=== PATIENT | male | born 1935 | race Caucasian/White ===

== ENCOUNTER 2018-09-03 06:45 | Inpatient (IN) ==
--- OUTSIDE RECORDS SUMMARY | 2018-09-03 06:48 | External Medical Summary | Continuity of Care Document ---
:1935 Author Name Brannon Snyder, Provider Address Unavailable Unavailable , Care Team Providers Name Role Phone Magdiel [email or web address] PCP, UNKNOWN Unavailable Unavailable Problems Active medical history not documented Allergies and Adverse Reactions Allergy history not documented Medications Medications not documented Procedures Procedures not documented Immunizations Immunizations not documented Plan of Treatment Planned Observations Planned Goals not documented Results No Known Results Results not documented
[2018-09-03] MEDS ORDERED: ASPIRIN CHEW 324 MG PO STA (07:02)
[2018-09-03] MEDS ORDERED: dilTIAZem HCl 5 MG/ML 5 ML VIAL IV STA (07:02)
--- NOTE | 2018-09-03 07:27 | XRay Report ---
XR chest 1V portable CLINICAL HISTORY: 83 years-old Male presenting with Chest Pain. TECHNIQUE: Portable upright AP view of the chest was obtained. COMPARISON: 02/07/2012. FINDINGS: Cardiac silhouette moderately enlarged. Minimal right basilar opacity. Left retrocardiac opacity as o n prior exam. Mild hyperinflation may be present. No pleural effusion or pneumothorax. Degenerative c hanges of the thoracic spine. IMPRESSION: 1. Cardiomegaly. 2. Minimal right basilar opacities likely atelectasis or scarring. 3. Left retrocardiac opacity likely indicates presence of a moderate hiatal hernia. Electronically signed by: Marino Torres M.D. 09/03/2018 7:26 AM
[2018-09-03 07:38] LABS: Basophils # (auto) 0.04 K/uL (0-0.2); Basophils % (auto) 0.3 %; Eosinophils # (auto) 0.12 K/uL (0-0.5); Eosinophils % (auto) 0.9 %; Hematocrit (blood only) 47.3 % (42-52); Hemoglobin 15.5 g/dL (14.0-18.0); Immature Granulocytes # (auto) 0.14 K/uL (0.00-0.02); Lymphocytes # (auto) 1.99 K/uL (1.2-3.4); Lymphocytes % (auto) 14.3 %; Mean Corpuscular Hgb Conc 32.8 g/dL (32-36); Mean Corpuscular Volume 88.1 fL (80-100); Mean Platelet Volume 10.3 fL (7.4-10.4); Monocytes # (auto) 1.29 K/uL (0.11-0.59); Monocytes % (auto) 9.3 %; Neutrophils # (auto) 10.36 K/uL (1.4-6.5); Neutrophils % (auto) 74.2 %; Platelet Count 159 K/uL (130-400); RDW Coefficient of Variation 16.5 % (11.5-14.5); RDW Standard Deviation 53.5 fL (36.4-46.3); Red Blood Count 5.37 M/uL (4.7-6.1); White Blood Count 13.94 K/uL (4.8-10.8)
[2018-09-03 07:48] LABS: Partial Thromboplastin Ratio 0.9; Partial Thromboplastin Time 23.3 Seconds (21.0-31.0); Prothrombin Time 10.5 Seconds (9.0-12.0)
[2018-09-03 07:57] LABS: Albumin Level 3.1 gm/dl (3.4-5.0); BUN Creatinine Ratio 21.1 (10-20); Calcium 9.8 mg/dl (8.5-10.1); Creatinine Clr Calc Pharmacy 41.5 ml/min; Est GFR (African American) 50.9; Est GFR (Non-African American) 43.9; Potassium 4.3 mmol/L (3.5-5.1)
[2018-09-03 08:06] LABS: Albumin Globulin Ratio 0.8 (0.9-2); Bilirubin,Total 0.4 mg/dl (0.2-1); Creatine Kinase MB 5.8 ng/ml (0.5-3.6); Globulin 3.7 gm/dl (2.5-4.0); Total Protein 6.8 gm/dl (6.4-8.2); Troponin I 0.065 ng/ml (0-0.045)
--- NOTE | 2018-09-03 08:13 | Emergency Department Note ---
Entered by Andressa Delatorre acting as a scribe for Avery Blanco MD History of Present Illness General Chief complaint: Chest Pain Stated complaint: CHEST PAIN,SHOULDER PAIN Time Seen by Provider: 09/03/18 06:52 Source: patient Mode of arrival: ambulatory Limitations: no limitations History of Present Illness Provider complaint: chest pain Onset (ago): hour(s) 3 Location: chest Pain Consistency: + other (episode) Quality: + other (chest pain) Associated symptoms: + shortness of breath and + other (palpitations) Treatments prior to arrival: none The patient is an 83 year old male who presents to the ER with complaints of an episode of chest pain that began at 0400 this morning. The patient reports to triage that he did have an associated shortness of breath as well. He states that he could feel as if his heart was beating "funny." He explains that he is currently not having chest pain. The patient notes that he has a history of an irregular heartbeat and is on a daily low-dose aspirin. He denies taking that this morning. He also reports that he did have an [place] in 2011 and [address]. Home Medications Home Medications Medication Instructions Recorded Confirmed Type Phosphorous 1 tab PO BID 06/04/18 09/03/18 History albuterol sulfate 1 inh INHALATION QID PRN 06/04/18 09/03/18 History aspirin 81 mg PO QAM 06/04/18 09/03/18 History atorvastatin 80 mg PO QAM 06/04/18 09/03/18 History carvedilol 25 mg PO BID 06/04/18 09/03/18 History fenofibrate nanocrystallized 48 mg PO QPM 06/04/18 09/03/18 History furosemide 40 mg PO QAM 06/04/18 09/03/18 History glipizide 5 mg PO QAM 06/04/18 09/03/18 History isosorbide mononitrate 60 mg PO QPM 06/04/18 09/03/18 History nitroglycerin [Nitrostat] 1 dose SUBLINGUAL UD PRN 06/04/18 09/03/18 History prednisone 5 mg PO BID 06/04/18 09/03/18 History terazosin 2 mg PO BID 06/04/18 09/03/18 History coenzyme Q10 200 mg PO DAILY 09/03/18 09/03/18 History linagliptin [Tradjenta] 5 mg PO DAILY 09/03/18 09/03/18 History pyjwfypgfmpp-deis-qtupq acid 1 tab PO DAILY 09/03/18 09/03/18 History [Centrum] Allergies Allergy/AdvReac Type Severity Reaction Status Date / Time atenolol Allergy Unknown Verified 09/03/18 07:32 candesartan [From Atacand] Allergy Unknown Verified 09/03/18 07:32 Past Med/Surg History Medical History BPH (benign prostatic hyperplasia) (Chronic) 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 RAMÍREZ Osteoarthritis (Chronic) Chronic back pain (Chronic) Scoliosis (Chronic) Poor historian Shortness of breath on exertion Surgical History History of cardiac cath (Chronic) 2011 - [facility] - [place] - 1 STENT PLACED - FOLLOWS W/ DR. MOHR History of heart artery stent (Chronic) History of colonoscopy (Chronic) History of tooth extraction (Chronic) History of cataract surgery (Chronic) RIGHT Family History Mother Coronary heart disease, Onset Age: 63 of [place] CHF (congestive heart failure) Myocardial infarction Father CHF (congestive heart failure) Pneumonia Sister Coronary heart disease History of CABG Rheumatic heart disease Social History Preferred Language: [place] Communication Ability: Effective Beliefs That Will Affect Care: None marital status: / Current Living Situation: Alone Feels Safe at Home: Yes Smoking Status: Never smoker Second Hand Exposure: Yes ( A CHILD) Hx Alcohol Use: No Hx Substance Use: No Review of Systems See HPI for pertinent positives & negatives. and A total of 10 systems reviewed and were otherwise negative Physical Exam Vital Signs Vital Signs - 24 hr 09/03/18 06:47 09/03/18 07:30 Temperature 36.5 C Temperature Source Oral Sepsis Recent Fever Within 48 Hours No Sepsis New/Unexplained Change in Mental Status No Sepsis Action Taken by Nursing No Action Required Pulse Rate 90 Pulse Rate [Left] 123 H Pulse Rhythm [Left] Regular Pulse Strength [Left] Normal Respiratory Rate 20 18 Respiratory Effort / Characteristics Non-Labored Spontaneous Non-Labored Spontaneous Respiratory Depth Normal Normal Respiratory Pattern Regular Regular Blood Pressure 119/71 Blood Pressure [Left Arm] 112/79 Blood Pressure Mean 87 Blood Pressure Mean [Left Arm] 90 Blood Pressure Position Sitting Blood Pressure Position [Left Arm] Lying Pulse Oximetry 96 95 Oxygen Delivery Method Room Air Room Air GENERAL: Awake, alert, well-appearing, in no acute distress HENT: Normocephalic, atraumatic. Oropharynx unremarkable. EYES: Normal conjunctiva. Sclera non-icteric. NECK: Supple. No nuchal rigidity. FROM. No JVD. RESPIRATORY: Clear to auscultation. CARDIAC: Tachycardic and irregular. Extremities warm and well perfused. Pulses equal. ABDOMEN: Soft, non-distended. No tenderness to palpation. No rebound or guarding. No masses. RECTAL: Deferred. MUSCULOSKELETAL: Chest examination reveals no tenderness. The back is symmetri edel on inspection without obvious abnormality. There is no CVA tenderness to palpation. No joint edema. LOWER EXTREMITIES: Calves are equal size bilaterally and non-tender. No edema. No discoloration. NEURO: Normal sensorium. No sensory or motor deficits noted. SKIN: No rash or jaundice noted. Course 0654: Past medical records reviewed. The patient was evaluated in room A10. A complete history and physical examination was performed. 0814: I reviewed the patient's case with Marcia Maldonado PA-C. She, in conjunction with Dr. Mora, will evaluate the patient for further management. 0818: I updated the patient and his family. They are agreeable with the treatment plan. Administered Medications Discontinued Medications Aspirin (Aspirin) 324 mg PO NOW STA Stop: 09/03/18 07:03 Last Admin: 09/03/18 07:42 Dose: 324 mg Documented by: [id number] Diltiazem HCl (Cardizem) 23 mg IV NOW STA Stop: 09/03/18 07:03 Last Admin: 09/03/18 07:42 Dose: 23 mg Documented by: [id number] Cosigned by: [id number] Heparin Sodium/Dextrose (Heparin Sodium/Dextrose) Confirm Administered Dose 25,000 units IV .STK-MED ONE Stop: 09/03/18 09:03 Last Admin: 09/03/18 09:08 Dose: 1,400 units Documented by: [id number] Cosigned by: [id number] Medical Decision Making Differential Diagnosis Differential diagnosis includes: cardiac ischemia, aortic dissection, pulmonary embolism, pneumonia, pneumothorax, musculoskeletal, infections, pericarditis, myocarditis, esophageal rupture, gastrointestinal, as well as others were entertained. Medical Records Attestation: I reviewed the patient's medical records. Home Medications Current Medication List: was personally reviewed by me Laboratory Data Attestation: I reviewed the patient's lab results. Result diagrams: 09/03/18 07:25 09/03/18 07:25 Lab Results 09/03/18 09/03/18 09/03/18 Range/Units 07:25 07:25 07:25 WBC 13.94 H (4.8-10.8) K/uL RBC 5.37 (4.7-6.1) M/uL Hgb 15.5 (14.0-18.0) g/dL Hct 47.3 (42-52) % MCV 88.1 (80-100) fL MCH 28.9 (25-34) pg MCHC 32.8 (32-36) g/dL RDW Std Deviation 53.5 H (36.4-46.3) fL RDW Coeff of Coty 16.5 H (11.5-14.5) % Plt Count 159 (130-400) K/uL MPV 10.3 (7.4-10.4) fL Immature Gran % (Auto) 1.0 % Neut % (Auto) 74.2 % Lymph % (Auto) 14.3 % Owsley % (Auto) 9.3 % Eos % (Auto) 0.9 % Baso % (Auto) 0.3 % Immature Gran # (Auto) 0.14 H (0.00-0.02) K/uL Neut # (Auto) 10.36 H (1.4-6.5) K/uL Lymph # (Auto) 1.99 (1.2-3.4) K/uL Owsley # (Auto) 1.29 H (0.11-0.59) K/uL Eos # (Auto) 0.12 (0-0.5) K/uL Baso # (Auto) 0.04 (0-0.2) K/uL PT 10.5 (9.0-12.0) Seconds INR 1.0 (0.9-1.1) APTT 23.3 (21.0-31.0) Seconds PTT Ratio 0.9 Sodium 144 (136-145) mmol/L Potassium 4.3 (3.5-5.1) mmol/L Chloride 110 H (98-107) mmol/L Carbon Dioxide 26 (21-32) mmol/L Anion Gap 8.0 (3-11) BUN 31 H (7-18) mg/dl Creatinine 1.45 H (0.6-1.4) mg/dl Est Cr Clr Drug Dosing 41.5 ml/min Est GFR ( Amer) 50.9 Est GFR (Non-Af Amer) 43.9 BUN/Creatinine Ratio 21.1 H (10-20) Glucose 86 (70-99) mg/dl Calcium 9.8 (8.5-10.1) mg/dl Magnesium (1.8-2.4) mg/dl Total Bilirubin 0.4 (0.2-1) mg/dl AST 22 (15-37) U/L ALT 33 (12-78) U/L Alkaline Phosphatase 41 L (45-117) U/L Total Creatine Kinase 129 (39-308) U/L CK-MB (CK-2) 5.8 H (0.5-3.6) ng/ml CK/CKMB % Calc 4.5 H (0-3.0) Troponin I 0.065 H* (0-0.045) ng/ml NT-Pro-B Natriuret Pep 538 (0-1800) pg/ml Total Protein 6.8 (6.4-8.2) gm/dl Albumin 3.1 L (3.4-5.0) gm/dl Globulin 3.7 (2.5-4.0) gm/dl Albumin/Globulin Ratio 0.8 L (0.9-2) Lipase 224 (73-393) U/L TSH (0.300-4.500) uIu/ml 09/03/18 09/03/18 Range/Units 07:25 07:25 WBC (4.8-10.8) K/uL RBC (4.7-6.1) M/uL Hgb (14.0-18.0) g/dL Hct (42-52) % MCV (80-100) fL MCH (25-34) pg MCHC (32-36) g/dL RDW Std Deviation (36.4-46.3) fL RDW Coeff of Coty (11.5-14.5) % Plt Count (130-400) K/uL MPV (7.4-10.4) fL Immature Gran % (Auto) % Neut % (Auto) % Lymph % (Auto) % Owsley % (Auto) % Eos % (Auto) % Baso % (Auto) % Immature Gran # (Auto) (0.00-0.02) K/uL Neut # (Auto) (1.4-6.5) K/uL Lymph # (Auto) (1.2-3.4) K/uL Owsley # (Auto) (0.11-0.59) K/uL Eos # (Auto) (0-0.5) K/uL Baso # (Auto) (0-0.2) K/uL PT (9.0-12.0) Seconds INR (0.9-1.1) APTT (21.0-31.0) Seconds PTT Ratio Sodium (136-145) mmol/L Potassium (3.5-5.1) mmol/L Chloride (98-107) mmol/L Carbon Dioxide (21-32) mmol/L Anion Gap (3-11) BUN (7-18) mg/dl Creatinine (0.6-1.4) mg/dl Est Cr Clr Drug Dosing ml/min Est GFR ( Amer) Est GFR (Non-Af Amer) BUN/Creatinine Ratio (10-20) Glucose (70-99) mg/dl Calcium (8.5-10.1) mg/dl Magnesium 2.3 (1.8-2.4) mg/dl Total Bilirubin (0.2-1) mg/dl AST (15-37) U/L ALT (12-78) U/L Alkaline Phosphatase (45-117) U/L Total Creatine Kinase (39-308) U/L CK-MB (CK-2) (0.5-3.6) ng/ml CK/CKMB % Calc (0-3.0) Troponin I (0-0.045) ng/ml NT-Pro-B Natriuret Pep (0-1800) pg/ml Total Protein (6.4-8.2) gm/dl Albumin (3.4-5.0) gm/dl Globulin (2.5-4.0) gm/dl Albumin/Globulin Ratio (0.9-2) Lipase (73-393) U/L TSH 2.950 (0.300-4.500) uIu/ml Imaging Data Radiologist's Impression: Radiology results as stated below per my review and the radiologist's interpretation: XR chest 1V portable CLINICAL HISTORY: 83 years-old Male presenting with Chest Pain. TECHNIQUE: Portable upright AP view of the chest was obtained. COMPARISON: 02/07/2012. FINDINGS: Cardiac silhouette moderately enlarged. Minimal right basilar opacity. Left retrocardiac opacity as on prior exam. Mild hyperinflation may be present. No pleural effusion or pneumothorax. Degenerative changes of the thoracic spine. IMPRESSION: 1. Cardiomegaly. 2. Minimal right basilar opacities likely atelectasis or scarring. 3. Left retrocardiac opacity likely indicates presence of a moderate hiatal hernia. Electronically signed by: Marino Torres M.D. 09/03/2018 7:26 AM ECG Data Attestation: I personally reviewed and interpreted this ECG as follows: Indication: chest pain Rate (beats per minute): 129 Rhythm: atrial fibrillation Findings: + other (RVR), + ST depression (Lateral) and + T-wave inversion (Lateral) Comparison ECG Date: from (07-FEB-2012) Change: the following changes noted (findings new) Additional Comments: REPEAT EKG: atrial fibrillation, rate of 87 bpm, no ST depressions, T-wave inversion in lateral leads. Blood Pressure Blood Pressure Findings: Normal blood pressure Blood Pressure Disposition: did not require urgent referral MDM Narrative This is an 83-year-old male who presents to the emergency department complaining of chest pain that started this morning. In addition the patient is complaining of palpitations. Upon arrival to the emergency department patient was found to be in A. fib with RVR. He was given 1 dose of Cardizem for this. The patient has an elevation in his troponin and I am concerned he may have had an NSTEMI. Because of this he was started on heparin drip. I did discuss the case with the hospitalist service who agreed to admit the patient. Patient was given 324 mg of aspirin here in the emergency department. Impression & Plan Atrial fibrillation with RVR, Non-ST elevation (NSTEMI) myocardial infarction Critical Care Time I have personally spent 30 minutes of critical care time in the direct management of this patient. This includes bedside care, interpretation of diag nostic studies, and testing, discussion with consultants, patient, and family members, and other required patient management activities. These 30 minutes are in excess of all separately billable procedures. Critical Care Time: Yes Total Critical Care Time: 30 Discharge Plan Visit Data *Final* Discharge Date/Time: 09/03/18 11:46 Chief Complaint: Chest Pain Stated Complaint: CHEST PAIN,SHOULDER PAIN ED Provider: Avery Blanco Discharge Problem: Atrial fibrillation with RVR, Non-ST elevation (NSTEMI) myocardial infarction Patient Disposition: Admitted As Inpatient Discharge Instructions Interventions: ED Discharge Assessment Last Done: 09/03/18 11:46 The scribe's documentation has been prepared under my direction and personally reviewed by me in its entirety. I confirm that the note above accurately reflects all work, treatment, procedures, and medical decision making performed by me.
[2018-09-03] MEDS ORDERED: Heparin IV Standard *NO* Bolus IV ONE (08:25)
[2018-09-03] MEDS ORDERED: HEPARIN 25000 UNIT/500 ML D5W IV ONE (09:02)
[2018-09-03] MEDS ORDERED: NiCARDipine HCL INJ 2.5 MG/ML 10 ML AMP ONE (09:04)
[2018-09-03] MEDS ORDERED: HEPARIN (PORCINE) 1000 UNIT/ML 10 ML (CATH LAB USE ONLY) ONE (09:04)
[2018-09-03] MEDS ORDERED: MIDAZOLAM HCL 1 MG/ML 2ML VIAL ONE (09:05)
[2018-09-03] MEDS ORDERED: fentaNYL citrate 100 MCG/2 ML VIAL ONE (09:05)
[2018-09-03] MEDS ORDERED: NITROGLYCERIN/D5W 100MCG/ML 20ML SYR ONE (09:05)
--- NOTE | 2018-09-03 09:17 | History & Physical Report ---
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 In ED patient was found to be in A. fib with RVR, rates [address] depressions. His troponin was elevated 0.065, CK 5.8, CK-MB 4.1. He had slight elevation in WBC 13.94, BUN 31, creatinine 1.45, glucose 86. Chest x-ray was without acute cardia pulmonary abn. He denies history of A. fib in the past or being on anticoagulation. Given 1 dose of IV diltiazem which improved rates to 90s. He was initiated on IV heparin. admit to PCU consult cardiology continue IV heparin obtain resting echocardiogram trend troponin q6h follow ECG Obtain mag and tsh (both WNL) fasting lipid panel, a1c, cbc, bmp in am. (3) Hypertension: Blood pressure on lower side Hold Lasix and terazosin for now continue coreg, imdur (4) Diabetes mellitus, type 2: A1c 7.8 on 07/26/2018 Hold glipizide and Tradjenta Insulin sliding scale per protocol If BSG consistently elevated will add Lantus (5) Chronic renal disease, stage III: Baseline creatinine 1.2 Mild renal insufficiency with BUN/creatinine 31 and 1.45 Hold Lasix for now Follow BMP (6) 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 Alcocer (7) DVT prophylaxis: SCDS/TEDS, IV heparin gtt Disposition: likely discharge to home when able Follow up: PCP Dr. Marin upon discharge Patient was seen and examined in collaboration with Dr. Mora, please see addendum Starting 09/04/2018 patient will be under the care of Dr. 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 Patient states he was awoken secondary to substernal chest pain. Pain was nonradiating, described as an ache, associated with palpitations, nausea, rated 8/10, improved but not relieved with nitro x4, nothing made worse, also tried Tums. He then presented to [facility] ED secondary to pain with his son at bedside. Currently pain is absent. He denies any recent illness, fever, chills, sweats, lightheadedness, dizziness, syncope, shortness of breath at rest, orthopnea, PND, edema, emesis, abdominal pain, diarrhea, change in bowel or urinary habits. He did not take any of his medications today but otherwise has been compliant. History of an NSTEMI in past in which symptoms were similar. He also complains of HENNING although this has been chronic. He has trialed Spiriva without improvement and states he stopped taking it because it did not help and it was too expensive. He does not wear oxygen. He denies cough. He also complains of right shoulder pain but this is chronic as well. In ED patient was found to be in A. fib with RVR, rates [address] depressions. His troponin was elevated 0.065, CK 5.8, CK-MB 4.1. He had slight elevation in WBC 13.94, BUN 31, creatinine 1.45, glucose 86. Chest x-ray was without acute cardia pulmonary abn. He denies history of A. fib in the past or being on anticoagulation. Given 1 dose of IV diltiazem which improved rates to 90s. He was initiated on IV heparin. Patient last seen and evaluated by cardiology 03/15/[address] Suarez. At that time he had been stable from a cardiac perspective and given MARY placed in 2011 his Plavix was discontinued. He also notes that he has had fluctuating doses in his terazosin, which he takes for BPH, secondary to low blood pressure. Allergies Allergy/AdvReac Type Severity Reaction Status Date / Time atenolol Allergy Unknown Verified 09/03/18 07:32 candesartan [From Atacand] Allergy Unknown Verified 09/03/18 07:32 Home Medications Home Medications Medication Instructions Recorded Confirmed Type Phosphorous 1 tab PO BID 06/04/18 09/03/18 History albuterol sulfate 1 inh INHALATION QID PRN 06/04/18 09/03/18 History aspirin 81 mg PO QAM 06/04/18 09/03/18 History atorvastatin 80 mg PO QAM 06/04/18 09/03/18 History carvedilol 25 mg PO BID 06/04/18 09/03/18 History fenofibrate nanocrystallized 48 mg PO QPM 06/04/18 09/03/18 History furosemide 40 mg PO QAM 06/04/18 09/03/18 History glipizide 5 mg PO QAM 06/04/18 09/03/18 History isosorbide mononitrate 60 mg PO QPM 06/04/18 09/03/18 History nitroglycerin [Nitrostat] 1 dose SUBLINGUAL UD PRN 06/04/18 09/03/18 History prednisone 5 mg PO BID 06/04/18 09/03/18 History terazosin 2 mg PO BID 06/04/18 09/03/18 History coenzyme Q10 200 mg PO DAILY 09/03/18 09/03/18 History linagliptin [Tradjenta] 5 mg PO DAILY 09/03/18 09/03/18 History gasvxwdnmjtz-bdyk-rsfkg acid 1 tab PO DAILY 09/03/18 09/03/18 History [Centrum] Past Med/Surg History Medical History BPH (benign prostatic hyperplasia) (Chronic) 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 RAMÍREZ Osteoarthritis (Chronic) Chronic back pain (Chronic) Scoliosis (Chronic) Poor historian Shortness of breath on exertion Surgical History History of cardiac cath (Chronic) 2011 - [facility] - [place] - 1 STENT PLACED - FOLLOWS W/ DR. MOHR History of heart artery stent (Chronic) History of colonoscopy (Chronic) History of tooth extraction (Chronic) History of cataract surgery (Chronic) RIGHT Family History Mother Coronary heart disease, Onset Age: 63 of [place] CHF (congestive heart failure) Myocardial infarction Father CHF (congestive heart failure) Pneumonia Sister Coronary heart disease History of CABG Rheumatic heart disease Social History Preferred Language: South Korean Communication Ability: Effective Beliefs That Will Affect Care: None marital status: / Current Living Situation: Alone Feels Safe at Home: Yes Smoking Status: Never smoker Second Hand Exposure: Yes ( A CHILD) Hx Alcohol Use: No Hx Substance Use: No Review of Systems Review of Systems: As noted per HPI, 10 systems reviewed and negative unless noted above. Physical Exam Physical Exam: Gen: WD/WN, Elderly, M, NAD, sitting up in bed, pleasant, conversing easily Head: Normocephalic, Atraumatic Eyes: Sclera normal, no conjunctival injection, PERRLA, EOMI ENT: Gross hearing intact, normal pharynx, mucous membranes moist Neck: supple, no adenopathy, No JVD, no bruit, Resp: Clear to auscultation b/l, no wheeze, rales, rhonchi. 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 Extremities: No edema bilaterally Skin: warm, dry, no rash, negative turgor, cap refill < 2sec Neuro: Alert and oriented x 3, speech normal, good mood/affect, cran nerve 2-12 intact grossly : deferred Results & Data Vital Signs (Past 12 Hours) Vital Signs Temp Pulse Pulse Resp BP BP Pulse Ox 09/03/18 09:12 84 18 102/77 96 09/03/18 07:30 123 H 18 112/79 95 09/03/18 06:47 36.5 C 90 20 119/71 96 Laboratory Results Short CBC 09/03/18 Range/Units 07:25 WBC 13.94 H (4.8-10.8) K/uL Hgb 15.5 (14.0-18.0) g/dL Hct 47.3 (42-52) % Plt Count 159 (130-400) K/uL BMP 09/03/18 07:25 Sodium 144 Potassium 4.3 Chloride 110 H Carbon Dioxide 26 BUN 31 H Creatinine 1.45 H Glucose 86 Calcium 9.8 Cardiac Enzymes 09/03/18 Range/Units 07:25 Total Creatine Kinase 129 (39-308) U/L CK-MB (CK-2) 5.8 H (0.5-3.6) ng/ml Troponin I 0.065 H* (0-0.045) ng/ml Liver Function 09/03/18 Range/Units 07:25 Total Bilirubin 0.4 (0.2-1) mg/dl AST 22 (15-37) U/L ALT 33 (12-78) U/L Alkaline Phosphatase 41 L (45-117) U/L Albumin 3.1 L (3.4-5.0) gm/dl Diagnostic Findings CXR: IMPRESSION: 1. Cardiomegaly. 2. Minimal right basilar opacities likely atelectasis or scarring. 3. Left retrocardiac opacity likely indicates presence of a moderate hiatal hernia. Medications Administered Discontinued Medications Aspirin (Aspirin) 324 mg PO NOW STA Stop: 09/03/18 07:03 Last Admin: 09/03/18 07:42 Dose: 324 mg Documented by: [id number] Diltiazem HCl (Cardizem) 23 mg IV NOW STA Stop: 09/03/18 07:03 Last Admin: 09/03/18 07:42 Dose: 23 mg Documented by: [id number] Cosigned by: [id number] Heparin Sodium/Dextrose (Heparin Sodium/Dextrose) Confirm Administered Dose 25,000 units IV .STK-MED ONE Stop: 09/03/18 09:03 Last Admin: 09/03/18 09:08 Dose: 1,400 units Documented by: [id number] Cosigned by: [id number] ECG Indication: chest pain Rate (beats per minute): 84 Rhythm: atrial fibrillation Findings: + T-wave inversion (I) Code Status & VTE Plan Code Status Full Code VTE Prophylaxis Plan VTE Prophylaxis will be ordered: Yes Supervising Physician Co-Signing Physician Notes I saw this patient with the physician podiatrist assistant abd the PA student, I participated in the history, physical, review of systems, and physical exam. I reviewed the medications with the patient and the physician podiatrist assistant and the PA student and helped reconcile the medications. I helped take a detailed family and social history as well. I formulated the assessment and plan personally with the physician podiatrist assistant and went over it with the patient. ROS-No Headache, No Visual Changes, No Nausea, No Vomiting, No Fever, No Chills, No Neck Pain or Stiffness, +8/10 Chest Pain, + Palpitations, +SOB, +HENNING, No Cough, No Sputum, No Wheezing, No Abdominal Pain, No Diarrhea, No Hematemesis, No Hemoptysis, No Unexpected Weight Loss, No Flank pain, No Melena, No Hematochezia, No Frequency, No Urgency, No Burning, No Hematuria, No Rashes, No Diaphoresis. Appetite is Normal,Diaphoresis Physical Exam Gen-AAO x 3, NAD, Afebrile, obese Head-NCAT, EOMI, PERRLA, Anicteric Sclera, No Posterior Pharyngeal Erythema Neck-Supple, No JVD, No Thyromegaly, No Masses, No LAD, No Bruits Lungs-Clear to Auscultation Bilaterally, No Rales, No Rhonchi, No Wheezing, No Crepitus Chest-Irreg/IrregNo S4, +S1, +S2, No S3, No Murmurs, No Rubs, No Gallops Abdomen-Soft, Bowel Sounds Present, Non Tender, Non Distended, No Hepatomegaly, No Splenomegaly, No Palpable Masses, No Rebound, No Rigidity, No Guarding Musculoskeletal-Full Range of Motion Bilaterally, No CVAT Extremities-No Cyanosis, No Clubbing, No Edema Nuero-Cranial Nerves II-XII grossly intact, Motor WNL, DTRs WNL, Strength WNL, Non Focal Psych-Normal Mood
[2018-09-03] MEDS ORDERED: Heparin IV Standard *NO* Bolus IV SCH (12:16)
[2018-09-03] MEDS ORDERED: GLUCOSE 40% GEL 15 GM TUBE PO PRN (12:16)
[2018-09-03] MEDS ORDERED: DEXTROSE 50% 50 ML SYRINGE IV PRN (12:16)
[2018-09-03] MEDS ORDERED: ACETAMINOPHEN 325 MG TAB PO PRN (12:16)
[2018-09-03] MEDS ORDERED: CARBOHYDRATES FOR HYPOGLYCEMIA PO PRN (12:16)
[2018-09-03] MEDS ORDERED: GLUCAGON FOR INJ 1 MG VIAL SQ PRN (12:16)
[2018-09-03] MEDS ORDERED: POLYETHYLENE (MIRALAX) 17 GM PACK PO PRN (12:16)
[2018-09-03] MEDS ORDERED: GLUCOSE 10 TABS/TUBE PO PRN (12:16)
[2018-09-03] MEDS ORDERED: ONDANSETRON INJ 2 MG/ML 2 ML VIAL IV PRN (12:16)
[2018-09-03] MEDS ORDERED: NITROGLYCERIN SL 0.4 MG/TAB TAB SL PRN (12:16)
[2018-09-03] MEDS ORDERED: CO Q10 PO SCH (12:16)
--- NOTE | 2018-09-03 13:50 | Cardiology Consultation ---
Date of Consultation September 03, 2018 Assessment & Plan (1) Atrial fibrillation with RVR: The patient converted spontaneously to normal sinus rhythm. He will need to be anticoagulated after discharge. I would continue heparin through the night and then consider Eliquis to be started as an outpatient. (2) Seronegative arthritis: (3) MGUS (monoclonal gammopathy of unknown significance): (4) Troponin level elevated: This is a type II elevation due to the atrial fibrillation and stress. (5) Diabetes mellitus, type 2: (6) History of heart artery stent: Stable coronary artery disease with previous history of a stent in the LAD 2011. History of Present Illness Attending Physician: Giancarlo Mora DO History of Present Illness This is an 83-year-old male patient who has a history of a drug-eluting stent placed in 2011 in the LAD. He has a history of diastolic dysfunction and hypertension. Also seronegative arthritis and MGUS. 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 When he presented to the emergency department he was found to be in atrial fibrillation with RVR. Patient was started on heparin. He spontaneously converted earlier this morning to normal sinus rhythm. His troponins are elevated at a level suggesting a type II elevation. He has no complaints at present. PAST MEDICAL HISTORY: 1. Coronary artery disease status post non ST-segment elevation [place] in 2011 with a drug-eluting stent placement to the LAD. 2. COPD. 3. Hypertension. 4. Grade 3 diastolic dysfunction. 5. Dyslipidemia. 6. GERD. Allergies Allergy/AdvReac Type Severity Reaction Status Date / Time atenolol Allergy Unknown Verified 09/03/18 07:32 candesartan [From Atacand] Allergy Unknown Verified 09/03/18 07:32 Home Medications Home Medications Medication Instructions Recorded Confirmed Type Phosphorous 1 tab PO BID 06/04/18 09/03/18 History albuterol sulfate 1 inh INHALATION QID PRN 06/04/18 09/03/18 History aspirin 81 mg PO QAM 06/04/18 09/03/18 History atorvastatin 80 mg PO QAM 06/04/18 09/03/18 History carvedilol 25 mg PO BID 06/04/18 09/03/18 History fenofibrate nanocrystallized 48 mg PO QPM 06/04/18 09/03/18 History furosemide 40 mg PO QAM 06/04/18 09/03/18 History glipizide 5 mg PO QAM 06/04/18 09/03/18 History isosorbide mononitrate 60 mg PO QPM 06/04/18 09/03/18 History nitroglycerin [Nitrostat] 1 dose SUBLINGUAL UD PRN 06/04/18 09/03/18 History prednisone 5 mg PO BID 06/04/18 09/03/18 History terazosin 2 mg PO BID 06/04/18 09/03/18 History coenzyme Q10 200 mg PO DAILY 09/03/18 09/03/18 History linagliptin [Tradjenta] 5 mg PO DAILY 09/03/18 09/03/18 History cphlqkiemnqy-eadf-buyir acid 1 tab PO DAILY 09/03/18 09/03/18 History [Centrum] Patient History Medical History BPH (benign prostatic hyperplasia) (Chronic) 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 RAMÍREZ Osteoarthritis (Chronic) Chronic back pain (Chronic) Scoliosis (Chronic) Poor historian Shortness of breath on exertion Surgical History History of cardiac cath (Chronic) 2011 - [facility] - [place] - 1 STENT PLACED - FOLLOWS W/ DR. 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 Beliefs That Will Affect Care: None marital status: / Current Living Situation: Significant Other Other Information That Helps Us Care for You: No Feels Safe at Home: Yes Smoking Status: Never smoker Do You Dip or Chew Tobacco: No Second Hand Exposure: Yes ( A CHILD) Hx Alcohol Use: No Hx Substance Use: No Review of Systems Review of Systems: All systems reviewed & are unremarkable except as noted in HPI & below No additional Physical Exam Physical Exam: General: no acute distress and stated age Head: normocephalic, no masses, lesions, tenderness or abnormalities Eyes: conjunctiva are pink and non-injected, sclera clear Neck: supple, no adenopathy, no bruits, normal jugular venous pulse, no hepatojugular reflux Chest: normal shape and normal respiratory effort Lungs: clear to auscultation and percussion Cardiac Exam: - regular rate & rhythm, no murmurs gallops or rubs - normal S1, normal S2 Pulses: 2(+) throughout Abdomen: abdomen soft, non-tender, no abnormal masses and no hepatosplenomegaly Musculoskeletal: no gait disturbance, no joint inflammation, no deforming arthritis Extremities: no edema and no cyanosis Neuro: grossly normal exam Results & Data Vital Signs (Past 12 Hours) Vital Signs Temp Pulse Pulse Resp BP BP Pulse Ox 09/03/18 11:00 102 H 18 104/68 98 09/03/18 09:12 84 18 102/77 96 09/03/18 07:30 123 H 18 112/79 95 09/03/18 06:47 36.5 C 90 20 119/71 96 Laboratory Results Laboratory Results - last 24 hr 09/03/18 09/03/18 09/03/18 07:25 07:25 07:25 WBC 13.94 H RBC 5.37 Hgb 15.5 Hct 47.3 MCV 88.1 MCH 28.9 MCHC 32.8 RDW Std Deviation 53.5 H RDW Coeff of Coty 16.5 H Plt Count 159 MPV 10.3 Immature Gran % (Auto) 1.0 Neut % (Auto) 74.2 Lymph % (Auto) 14.3 Dundy % (Auto) 9.3 Eos % (Auto) 0.9 Baso % (Auto) 0.3 Immature Gran # (Auto) 0.14 H Neut # (Auto) 10.36 H Lymph # (Auto) 1.99 Dundy # (Auto) 1.29 H Eos # (Auto) 0.12 Baso # (Auto) 0.04 PT 10.5 INR 1.0 APTT 23.3 PTT Ratio 0.9 Sodium 144 Potassium 4.3 Chloride 110 H Carbon Dioxide 26 Anion Gap 8.0 BUN 31 H Creatinine 1.45 H Est Cr Clr Drug Dosing 41.5 Est GFR ( Amer) 50.9 Est GFR (Non-Af Amer) 43.9 BUN/Creatinine Ratio 21.1 H Glucose 86 POC Glucose Calcium 9.8 Magnesium Total Bilirubin 0.4 AST 22 ALT 33 Alkaline Phosphatase 41 L Total Creatine Kinase 129 CK-MB (CK-2) 5.8 H CK/CKMB % Calc 4.5 H Troponin I 0.065 H* NT-Pro-B Natriuret Pep 538 Total Protein 6.8 Albumin 3.1 L Globulin 3.7 Albumin/Globulin Ratio 0.8 L Lipase 224 TSH 09/03/18 09/03/18 09/03/18 07:25 07:25 10:40 WBC RBC Hgb Hct MCV MCH MCHC RDW Std Deviation RDW Coeff of Coty Plt Count MPV Immature Gran % (Auto) Neut % (Auto) Lymph % (Auto) Dundy % (Auto) Eos % (Auto) Baso % (Auto) Immature Gran # (Auto) Neut # (Auto) Lymph # (Auto) Dundy # (Auto) Eos # (Auto) Baso # (Auto) PT INR APTT PTT Ratio Sodium Potassium Chloride Carbon Dioxide Anion Gap BUN Creatinine Est Cr Clr Drug Dosing Est GFR ( Amer) Est GFR (Non-Af Amer) BUN/Creatinine Ratio Glucose POC Glucose Calcium Magnesium 2.3 Total Bilirubin AST ALT Alkaline Phosphatase Total Creatine Kinase CK-MB (CK-2) CK/CKMB % Calc Troponin I 0.136 H* NT-Pro-B Natriuret Pep Total Protein Albumin Globulin Albumin/Globulin Ratio Lipase TSH 2.950 09/03/18 09/03/18 12:55 12:58 WBC RBC Hgb Hct MCV MCH MCHC RDW Std Deviation RDW Coeff of Coty Plt Count MPV Immature Gran % (Auto) Neut % (Auto) Lymph % (Auto) Dundy % (Auto) Eos % (Auto) Baso % (Auto) Immature Gran # (Auto) Neut # (Auto) Lymph # (Auto) Dundy # (Auto) Eos # (Auto) Baso # (Auto) PT INR APTT PTT Ratio Sodium Potassium Chloride Carbon Dioxide Anion Gap BUN Creatinine Est Cr Clr Drug Dosing Est GFR ( Amer) Est GFR (Non-Af Amer) BUN/Creatinine Ratio Glucose POC Glucose 89 Calcium Magnesium Total Bilirubin AST ALT Alkaline Phosphatase Total Creatine Kinase CK-MB (CK-2) CK/CKMB % Calc Troponin I 0.142 H* NT-Pro-B Natriuret Pep Total Protein Albumin Globulin Albumin/Globulin Ratio Lipase TSH Medications Administered Current Inpatient Medications Acetaminophen (Tylenol) 650 mg PO Q4H PRN PRN Reason: Pain or Fever Stop: 10/03/18 12:15 Aspirin ([facility]ab) [facility] Stop: 10/03/18 13:59 Last Admin: 09/03/18 14:30 Dose: 81 mg Documented by: Atorvastatin Calcium (Lipitor) 80 mg PO [facility] Stop: 10/03/18 13:59 Last Admin: 09/03/18 14:29 Dose: 80 mg Documented by: Carvedilol (Coreg) 25 mg PO BID [facility] Stop: 10/03/18 13:59 Last Admin: 09/03/18 14:31 Dose: Not Given Documented by: Dextrose (Dextrose 50%) 25 - 50 ml IV UD PRN; Protocol PRN Reason: Hypoglycemia Protocol Stop: 10/03/18 12:15 Fenofibrate (Fenofibrate) 48 mg PO QPM [facility] Stop: 10/03/18 20:59 Glucagon (Glucagen) 1 mg SQ UD PRN; Protocol PRN Reason: Hypoglycemia Protocol Stop: 10/03/18 12:15 Glucose (Glucose 40%) 15 - 30 gm PO UD PRN; Protocol PRN Reason: Hypoglycemia Protocol Stop: 10/03/18 12:15 Glucose (Dex4 Glucose) 4 - 8 tabs PO UD PRN; Protocol PRN Reason: Hypoglycemia Protocol Stop: 10/03/18 12:15 Heparin Sodium/Dextrose (Heparin Sodium/Dextrose) 25,000 units in 500 mls @ 28 mls/hr IV .[id number] [facility]; Protocol Stop: 10/03/18 12:59 Last Admin: 09/03/18 14:36 Dose: 1,400 units/hr, 28 mls/hr Documented by: Insulin Aspart (Novolog Flexpen) 0 units SC ACHS [facility] Stop: 10/03/18 12:59 Last Admin: 09/03/18 14:34 Dose: 1 units Documented by: Isosorbide Mononitrate (Imdur Extended Rel) 60 mg PO QPM [facility] Stop: 10/03/18 20:59 Miscellaneous (Carbohydrates For Hypoglycemia) 15 - 30 gm PO UD PRN PRN Reason: Hypoglycemia Treatment Stop: 10/03/18 12:15 Multivitamins/Minerals (Multivitamin W/ Minerals Tab) 1 tab PO DAILY [facility] Stop: 10/04/18 08:59 Nitroglycerin (Nitrostat) 0.4 mg SL UD PRN PRN Reason: Chest Pain Stop: 10/03/18 12:15 Ondansetron HCl (Zofran) 4 mg IV Q6H PRN PRN Reason: Nausea Stop: 10/03/18 12:15 Polyethylene Glycol (Miralax Powder Packet) 17 gm PO DAILY PRN PRN Reason: Constipation Stop: 10/03/18 12:15 Potassium Phosphate (Phospha 250 Neutral [id number] Mg) 1 tab PO BID [facility] Stop: 10/03/18 13:59 Last Admin: 09/03/18 14:29 Dose: 1 tab Documented by: Prednisone (Prednisone) 5 mg PO BID [facility] Stop: 10/03/18 13:59 Last Admin: 09/03/18 14:29 Dose: 5 mg Documented by:
[2018-09-03] MEDS: predniSONE 5 MG TAB PO SCH ×2 (14:29→20:55)
[2018-09-03] MEDS: ATORVASTATIN 40 MG TAB PO SCH (14:29)
[2018-09-03] MEDS: POT PHOSPHATE MONOBASIC W/ SOD TAB PO SCH ×2 (14:29→20:55)
[2018-09-03] MEDS: ASPIRIN 81 MG ECTAB PO SCH (14:30)
[2018-09-03] MEDS: CARVEDILOL 25 MG TAB PO SCH ×2 (14:31→20:54)
[2018-09-03] MEDS: INSULIN ASPART 100 UNITS/ML 3 ML PEN SC SCH ×3 (14:34→20:53)
[2018-09-03] MEDS: Heparin Adult STANDARD Wt-Based Dextrose 5% 25,000 units/500 mL IV SCH (14:36)
[2018-09-03 16:03] LABS: Partial Thromboplastin Ratio 2.4
[2018-09-03] MEDS ORDERED: FENOFIBRATE NANOCRYSTALLIZED 48 MG TABLET PO SCH (21:00)
[2018-09-03] MEDS ORDERED: ISOSORBIDE MONO EXTENDED REL 60 MG TABCR PO SCH (21:00)
[2018-09-03 22:02] LABS: Partial Thromboplastin Ratio 3.9
[2018-09-03 22:18] LABS: Partial Thromboplastin Time 104.9 Seconds (21.0-31.0)
[2018-09-04] MEDS ORDERED: HEPARIN 25000 UNIT/500 ML D5W IV ONE (03:50)
[2018-09-04] MEDS: Heparin Adult STANDARD Wt-Based Dextrose 5% 25,000 units/500 mL IV SCH (03:52)
[2018-09-04 04:39] LABS: Hematocrit (blood only) 40.7 % (42-52); Hemoglobin 13.4 g/dL (14.0-18.0); Mean Corpuscular Hgb Conc 32.9 g/dL (32-36); Mean Corpuscular Volume 87.9 fL (80-100); Mean Platelet Volume 10.7 fL (7.4-10.4); Platelet Count 139 K/uL (130-400); RDW Coefficient of Variation 16.7 % (11.5-14.5); RDW Standard Deviation 52.9 fL (36.4-46.3); Red Blood Count 4.63 M/uL (4.7-6.1)
[2018-09-04 04:53] LABS: BUN Creatinine Ratio 20.2 (10-20); Calcium 8.2 mg/dl (8.5-10.1); Creatinine Clr Calc Pharmacy 45.4 ml/min; Est GFR (Non-African American) 49.2; Potassium 4.3 mmol/L (3.5-5.1)
[2018-09-04 04:56] LABS: Partial Thromboplastin Ratio 3.7
[2018-09-04 05:16] LABS: Partial Thromboplastin Time 100.8 Seconds (21.0-31.0)
[2018-09-04 06:29] LABS: Estimated Average Glucose 148 mg/dl; Hemoglobin A1C 6.8 % (4.5-5.6)
[2018-09-04] MEDS: predniSONE 5 MG TAB PO SCH (08:40)
[2018-09-04] MEDS: ATORVASTATIN 40 MG TAB PO SCH (08:41)
[2018-09-04] MEDS: POT PHOSPHATE MONOBASIC W/ SOD TAB PO SCH (08:41)
[2018-09-04] MEDS: ASPIRIN 81 MG ECTAB PO SCH (08:41)
[2018-09-04] MEDS: CARVEDILOL 25 MG TAB PO SCH (08:41)
[2018-09-04] MEDS: INSULIN ASPART 100 UNITS/ML 3 ML PEN SC SCH ×3 (08:41→17:12)
[2018-09-04] MEDS ORDERED: NON-FORMULARY MEDICATION (Coenzyme Q10 200 MG) PO SCH (09:00)
[2018-09-04] MEDS ORDERED: CEROVITE ADV FORMULA TAB PO SCH (09:00)
[2018-09-04] MEDS ORDERED: APIXABAN 2.5 MG TAB PO ONE (09:00)
--- NOTE | 2018-09-04 10:30 | Cardiology Progress Note ---
Date of Service September 04, 2018 Assessment & Plan (1) Atrial fibrillation with RVR: Presentation with left sided chest discomfort New onset atrial fibrillation with a rapid ventricular response Status post spontaneous conversion to sinus at 12:20 PM on 09/03/2018, without significant clinical sequela. [id number] Score is 5 points (age greater than 75, HTN, PAD (abnormal SUSIE in January 2018), DM) Continue carvedilol as prescribed Initiate Eliquis at 5 mg twice a day. If/when creatinine is > 1.5 mg/dL then reduce dose to 2.5 mg twice daily. (2) Non-ST elevation (NSTEMI) myocardial infarction: Suspect type II elevation due to the atrial fibrillation in the setting of known CAD (see below) (3) Abnormal EKG: ? Ischemic versus LVH Asymptomatic since spontaneous conversion back to sinus Refer for Lexiscan nuclear stress testing, probably as an outpatient (4) Hiatal hernia: Given initiation of anticoagulation, ASA, and chronic prednisone therapy recommend initiation of PPI therapy. (5) Hypertension: Controlled. Follow (6) Hyperlipidemia: Continue high intensity statin therapy Supervising Physician Co-Signing Physician Notes I have reviewed the chart and seen the patient and examined him. I discussed the case with the physician healthcare administrative assistant. I agree with starting him on Eliquis at a reduced dose due to his age and elevated creatinine. He will be started on 2.5 mg Eliquis twice daily. Heparin can then be discontinued. Otherwise he is doing well and we could consider sending him home this evening or tomorrow morning with follow-up through our office. Subjective Patient seen and examination. Chart, medications, and telemetry reviewed. at bedside. Patient presented with left sided chest discomfort. He was found to have new onset atrial fibrillation with a rapid ventricular response and spontaneously converted back to sinus rhythm on 09/03/2018 at 12:20 with resolution of his chest discomfort post conversion. Troponin is mildly elevated. Echocardiography reveals normal systolic function, normal wall motion, and LVH. EKG this morning reveals sinus rhythm at 54 bpm with sinus arrhythmi, first degree AV block, and T wave changes laterally suggestive of ischemia (versus left ventricular hypertrophy). 2018 TTE Interpretation Summary ([facility], ): Normal sized LV. Moderate concentric LVH. EF 60-65%. Grossly normal RV size and function. Normal RA and LA. Mild to moderate aortic regurgitation. Grade I diastolic dysfunction. Review of Systems Review of Systems: All systems reviewed & are unremarkable except as noted in HPI & below Constitutional: + fatigue and + daytime sleepiness Respiratory: + dyspnea; no hemoptysis and no pain on inspiration Cardiovascular: + chest pain and + dyspnea on exertion; no orthopnea, no palpitations, no lightheadedness, no syncope and no edema Gastrointestinal: history of hiatal hernia Physical Exam Physical Exam: General: A&Ox3. NAD. HEENT: Normocephalic. Atraumatic. PER. Conjunctiva pink, sclera clear. Neck: Right carotid bruit. No JVD. No HJR. Heart: RRR. Grade II systolic murmur. No diastolic murmur. PMI is nondisplaced. Lungs: Diminished. Decreased. Clear to auscultation. Abdomen: Obese. +BS. Soft. Nontender. No masses or organomegaly. Extremities: No clubbing, cyanosis, or edema. Limited neurological examination is without focal deficits. Pulses: radial=2/4, posterior tibial=2/4. Results & Data Vital Signs (Past 12 Hours) Vital Signs Temp Pulse Pulse Resp BP Pulse Ox 09/04/18 07:01 36.4 C L 60 16 179/93 H 96 09/04/18 03:06 36.6 C 65 18 144/72 H 95 09/04/18 00:34 70 09/03/18 23:26 36.6 C 74 18 118/70 92 Laboratory Results - last 24 hr 09/03/18 09/03/18 09/03/18 10:40 12:55 12:58 WBC RBC Hgb Hct MCV MCH MCHC RDW Std Deviation RDW Coeff of Coty Plt Count MPV APTT PTT Ratio Sodium Potassium Chloride Carbon Dioxide Anion Gap BUN Creatinine Est Cr Clr Drug Dosing Est GFR ( Amer) Est GFR (Non-Af Amer) BUN/Creatinine Ratio Glucose POC Glucose 89 Estimat Average Glucose Hemoglobin A1c Calcium Troponin I 0.136 H* 0.142 H* Triglycerides Cholesterol LDL Cholesterol, Calc VLDL Cholesterol, Calc HDL Cholesterol Cholesterol/HDL Ratio 09/03/18 09/03/18 09/03/18 15:30 17:40 19:06 WBC RBC Hgb Hct MCV MCH MCHC RDW Std Deviation RDW Coeff of Coty Plt Count MPV APTT 65.0 H* PTT Ratio 2.4 Sodium Potassium Chloride Carbon Dioxide Anion Gap BUN Creatinine Est Cr Clr Drug Dosing Est GFR ( Amer) Est GFR (Non-Af Amer) BUN/Creatinine Ratio Glucose POC Glucose 148 H Estimat Average Glucose Hemoglobin A1c Calcium Troponin I 0.128 H* Triglycerides Cholesterol LDL Cholesterol, Calc VLDL Cholesterol, Calc HDL Cholesterol Cholesterol/HDL Ratio 09/03/18 09/03/18 09/04/18 20:12 21:34 04:16 WBC 11.40 H RBC 4.63 L Hgb 13.4 L Hct 40.7 L MCV 87.9 MCH 28.9 MCHC 32.9 RDW Std Deviation 52.9 H RDW Coeff of Coty 16.7 H Plt Count 139 MPV 10.7 H APTT 104.9 H* PTT Ratio 3.9 Sodium Potassium Chloride Carbon Dioxide Anion Gap BUN Creatinine Est Cr Clr Drug Dosing Est GFR ( Amer) Est GFR (Non-Af Amer) BUN/Creatinine Ratio Glucose POC Glucose 89 Estimat Average Glucose Hemoglobin A1c Calcium Troponin I Triglycerides Cholesterol LDL Cholesterol, Calc VLDL Cholesterol, Calc HDL Cholesterol Cholesterol/HDL Ratio 09/04/18 09/04/18 09/04/18 04:16 04:16 04:16 WBC RBC Hgb Hct MCV MCH MCHC RDW Std Deviation RDW Coeff of Coty Plt Count MPV APTT 100.8 H* PTT Ratio 3.7 Sodium 141 Potassium 4.3 Chloride 110 H Carbon Dioxide 29 Anion Gap 2.0 L BUN 27 H Creatinine 1.32 Est Cr Clr Drug Dosing 45.4 Est GFR ( Amer) 57.0 Est GFR (Non-Af Amer) 49.2 BUN/Creatinine Ratio 20.2 H Glucose 145 H POC Glucose Estimat Average Glucose 148 Hemoglobin A1c 6.8 H Calcium 8.2 L D Troponin I Triglycerides 102 Cholesterol 134 LDL Cholesterol, Calc 71 VLDL Cholesterol, Calc 20 HDL Cholesterol 43 Cholesterol/HDL Ratio 3 09/04/18 07:07 WBC RBC Hgb Hct MCV MCH MCHC RDW Std Deviation RDW Coeff of Coty Plt Count MPV APTT PTT Ratio Sodium Potassium Chloride Carbon Dioxide Anion Gap BUN Creatinine Est Cr Clr Drug Dosing Est GFR ( Amer) Est GFR (Non-Af Amer) BUN/Creatinine Ratio Glucose POC Glucose 103 H Estimat Average Glucose Hemoglobin A1c Calcium Troponin I Triglycerides Cholesterol LDL Cholesterol, Calc VLDL Cholesterol, Calc HDL Cholesterol Cholesterol/HDL Ratio
--- NOTE | 2018-09-04 10:44 | Hospitalist Progress Note ---
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 Patient presented with chest pain and found to be in new onset atrial fibrillation with RVR Status post spontaneous conversion to sinus at 12:20 pm on 09/03/18 ChadsVasc 5 Cardiology recommendations: Continue carvediolol as prescribed and initate Eliquis 5mg daily twice daily uless creatinine is > 1.5 mg/dL then reduce dose to 2.5 mg twice daily. Troponin trended 0.065 --> 0.126 --> 0.142 --> 0.128 like Type II secondary to demand ischemia Echocardiogram: revealed LVEF 60 to 65% with moderate concentric LVH, grade 1 diastolic dysfunction, mild to moderate aortic regurg repeat ecg today reveals sinus chon with lateral t wave inversions ischemia vs LVH - cardiology recommend consider lexiscan as outpatient Electrolytes, mag, TSH all WNL A1C 6.8 Lipid panel Chol 134, LDL 71, trig 102, HDL 43 (3) Hypertension: Blood pressure controlled, 135/80 continue coreg, imdur, Lasix and terazosin (4) Diabetes mellitus, type 2: A1c 7.8 on 07/26/2018 A1C improved to 6.8 Insulin sliding scale per protocol will re-initate Hold glipizide and Tradjenta upon discharge blood sugar controlled (5) Chronic renal disease, stage III: Baseline creatinine 1.2 bun/cr improved to 27 and 1.32 today resume lasix (6) 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 Alcocer (7) Hiatal hernia: Pt with known Hiatal hernia On chronic prednisone, ASA and now anticoagulation patient started on protonix 20mg daily (8) DVT prophylaxis: SCDS/TEDS, IV heparin gtt will transition to apixaban Disposition: Probable discharge home today Follow up: PCP Dr. Marin upon discharge along with appropriate cardiology follow up Patient was seen and examined in collaboration with Dr. Harden, please see addendum Supervising Physician Co-Signing Physician Notes Pt was seen and examined. Agreed with Janie KHOURY exam, assessment and plan. 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 While in the ER he was found to be in Afib with RVR. He was spontaneously converted to sinus at 12:20 PM on 09/03/2018. Currently denies any chest pain, palpitation and SOB. [id number] Score is 5 points. Cardiology on board and recommended to start on eliquis 2.5 mg BID and heparin drip was discontinued. Continue carvedilol 25mg for rate control. Case discussed with granderic at bedside and with his son over the phone and answered all questions. Advised pt to monitor for any abnormal bleeding. OK from cardiology standpoint to discharge home. Follow up with PCP within 1 week and with cardiology. MD Fina Subjective Patient was seen and examined in room 229-1 at approximately 0930. Follow-up new onset atrial fibrillation. He overall feels well. Denies complaints. Denies chest pain, shortness of geraldo th, palpitations, lightheadedness, nausea, vomiting, abdominal pain. Does complain of dyspnea on exertion which is not new. He has been following family doctor for this in which he was prescribed inhalers. He states he was not sure exactly how to use the inhalers and was too expensive therefore did not try. He also elicits to right shoulder discomfort that has been present for the past 3 to 4 days. He is wondering if this had anything to do with his chest pain and atrial fib. Review of Systems Review of Systems: As noted per HPI, 10 systems reviewed and negative unless noted above. Physical Exam Physical Exam: Gen: WD/WN, M, sitting up in bed, pleasant, conversing easily, NAD, A&O x3 HEENT: Normocephalic, atraumatic, conjunctivae moist, sclerae anicteric, mucous membranes moist. Lung: Clear to Auscultation bilaterally, no wheezes/rales/rhonchi Heart: Regular rate, regular rhythm, no murmurs, rubs, or gallops Abdomen: Protuberant abdomen, soft, NT, ND +BS x 4 Extremities: No edema Skin: Warm, no rash, negative turgor. Results & Data Vital Signs (Past 12 Hours) Vital Signs Temp Pulse Pulse Resp BP Pulse Ox 09/04/18 07:01 36.4 C L 60 16 179/93 H 96 09/04/18 03:06 36.6 C 65 18 144/72 H 95 09/04/18 00:34 70 09/03/18 23:26 36.6 C 74 18 118/70 92 Laboratory Results Short CBC 09/04/18 Range/Units 04:16 WBC 11.40 H (4.8-10.8) K/uL Hgb 13.4 L (14.0-18.0) g/dL Hct 40.7 L (42-52) % Plt Count 139 (130-400) K/uL BMP 09/04/18 04:16 Sodium 141 Potassium 4.3 Chloride 110 H Carbon Dioxide 29 BUN 27 H Creatinine 1.32 Glucose 145 H Calcium 8.2 L D Cardiac Enzymes 09/03/18 09/03/18 09/03/18 Range/Units 10:40 12:58 19:06 Troponin I 0.136 H* 0.142 H* 0.128 H* (0-0.045) ng/ml Medications Administered Aspirin (Ecotrin Ectab) 81 mg PO [facility] Stop: 10/03/18 13:59 Last Admin: 09/04/18 08:41 Dose: 81 mg Documented by: [id number] Admin: 09/03/18 14:30 Dose: 81 mg Documented by: [id number] Atorvastatin Calcium (Lipitor) 80 mg PO [facility] Stop: 10/03/18 13:59 Last Admin: 09/04/18 08:41 Dose: 80 mg Documented by: [id number] Admin: 09/03/18 14:29 Dose: 80 mg Documented by: [id number] Carvedilol (Coreg) 25 mg PO BID [facility] Stop: 10/03/18 13:59 Last Admin: 09/04/18 08:41 Dose: 25 mg Documented by: [id number] Admin: 09/03/18 20:54 Dose: 25 mg Documented by: [id number] Admin: 09/03/18 14:31 Dose: Not Given Documented by: [id number] Fenofibrate (Fenofibrate) 48 mg PO QPM [facility] Stop: 10/03/18 20:59 Last Admin: 09/03/18 20:54 Dose: 48 mg Documented by: [id number] Heparin Sodium/Dextrose (Heparin Sodium/Dextrose) 25,000 units in 500 mls @ 22 mls/hr IV .[id number] [facility]; Protocol Stop: 10/03/18 12:59 Last Titration: 09/04/18 06:55 Dose: 1,100 units/hr, 22 mls/hr Documented by: [id number] Cosigned by: [id number] Titration: 09/04/18 06:28 Dose: 1,100 units/hr, 22 mls/hr Documented by: [id number] Cosigned by: [id number] Titration: 09/04/18 05:23 Dose: 0 units/hr, 0 mls/hr Documented by: [id number] Cosigned by: [id number] Admin: 09/04/18 03:52 Dose: 1,250 units/hr, 25 mls/hr Documented by: [id number] Cosigned by: [id number] Titration: 09/04/18 03:39 Dose: 0 units/hr, 0 mls/hr Documented by: [id number] Cosigned by: [id number] Titration: 09/03/18 23:20 Dose: 1,250 units/hr, 25 mls/hr Documented by: [id number] Cosigned by: [id number] Titration: 09/03/18 22:20 Dose: 0 units/hr, 0 mls/hr Documented by: [id number] Cosigned by: [id number] Titration: 09/03/18 19:09 Dose: 1,400 units/hr, 28 mls/hr Documented by: [id number] Cosigned by: [id number] Admin: 09/03/18 14:36 Dose: 1,400 units/hr, 28 mls/hr Documented by: [id number] Cosigned by: [id number] Insulin Aspart (Novolog Flexpen) 0 units SC ACHS [facility] Stop: 10/03/18 12:59 Last Admin: 09/04/18 08:41 Dose: 1 units Documented by: [id number] Cosigned by: [id number] Admin: 09/03/18 20:53 Dose: Not Given Documented by: [id number] Cosigned by: [id number] Admin: 09/03/18 17:41 Dose: 6 units Documented by: [id number] Cosigned by: [id number] Admin: 09/03/18 14:34 Dose: 1 units Documented by: [id number] Cosigned by: [id number] Isosorbide Mononitrate (Imdur Extended Rel) 60 mg PO QPM [facility] Stop: 10/03/18 20:59 Last Admin: 09/03/18 20:54 Dose: 60 mg Documented by: [id number] Multivitamins/Minerals (Multivitamin W/ Minerals Tab) 1 tab PO DAILY [facility] Stop: 10/04/18 08:59 Last Admin: 09/04/18 08:41 Dose: 1 tab Documented by: [id number] Potassium Phosphate (Phospha 250 Neutral 155-852-130 Mg) 1 tab PO BID [facility] Stop: 10/03/18 13:59 Last Admin: 09/04/18 08:41 Dose: 1 tab Documented by: [id number] Admin: 09/03/18 20:55 Dose: 1 tab Documented by: [id number] Admin: 09/03/18 14:29 Dose: 1 tab Documented by: [id number] Prednisone (Prednisone) 5 mg PO BID [facility] Stop: 10/03/18 13:59 Last Admin: 09/04/18 08:40 Dose: 5 mg Documented by: [id number] Admin: 09/03/18 20:55 Dose: 5 mg Documented by: [id number] Admin: 09/03/18 14:29 Dose: 5 mg Documented by: [id number] Discontinued Medications Aspirin (Aspirin) 324 mg PO NOW [facility] Stop: 09/03/18 07:03 Last Admin: 09/03/18 07:42 Dose: 324 mg Documented by: [id number] Diltiazem HCl (Cardizem) 23 mg IV NOW STA Stop: 09/03/18 07:03 Last Admin: 09/03/18 07:42 Dose: 23 mg Documented by: [id number] Cosigned by: [id number] Fentanyl Citrate (Fentanyl Citrate) Confirm Administered Dose 100 mcg .ROUTE .STK-MED ONE Stop: 09/03/18 09:06 Last Admin: 09/03/18 18:56 Dose: Not Given Documented by: [id number] Heparin Sodium (Porcine) (Heparin Iv Bolus ([employer] Use Only)) Confirm Administered Dose 10,000 units .ROUTE .STK-MED ONE Stop: 09/03/18 09:05 Last Admin: 09/03/18 18:56 Dose: Not Given Documented by: [id number] Heparin Sodium/Dextrose () 1 ea IV ONE ONE; Protocol Stop: 09/03/18 08:26 Last Admin: 09/03/18 18:56 Dose: Not Given Documented by: [id number] Heparin Sodium/Dextrose (Heparin Sodium/Dextrose) Confirm Administered Dose 25,000 units IV .STK-Elance ONE Stop: 09/03/18 09:03 Last Admin: 09/03/18 09:08 Dose: 1,400 units Documented by: [id number] Cosigned by: [id number] Heparin Sodium/Dextrose (Heparin Sodium/Dextrose) Confirm Administered Dose 25,000 units IV .STK-Elance ONE Stop: 09/04/18 03:51 Last Admin: 09/04/18 05:02 Dose: Not Given Documented by: [id number] Heparin Sodium/Sodium Chloride (Heparin/Nss 1000 Unit/500ml Flush Bag) Confirm Administered Dose 3,000 units IV .[employer]Elance ONE Stop: 09/03/18 09:06 Last Admin: 09/03/18 18:55 Dose: Not Given Documented by: [id number] Midazolam HCl (Versed) Confirm Administered Dose 2 mg .ROUTE .[employer] ONE Stop: 09/03/18 09:06 Last Admin: 09/03/18 18:55 Dose: Not Given Documented by: [id number] Nicardipine HCl (Cardene) Confirm Administered Dose 25 mg .ROUTE .[employer] ONE Stop: 09/03/18 09:05 Last Admin: 09/03/18 18:56 Dose: Not Given Documented by: [id number] Nitroglycerin/Dextrose (Nitroglycerin/D5w 100 Mcg/Ml 20ml Syringe) Confirm Administered Dose 2,000 mcg .ROUTE .[employer] ONE Stop: 09/03/18 09:06 Last Admin: 09/03/18 18:55 Dose: Not Given Documented by: [id number] ECG Rhythm: sinus bradycardia and other (with SA) Findings: + T-wave inversion (laterally ischemia vs LVH) Change: the following changes noted Additional Comments: sinus chon has replaced a fib
[2018-09-04] MEDS ORDERED: PANTOprazole 40 MG TAB PO SCH (11:15)
[2018-09-04 13:14] LABS: Partial Thromboplastin Ratio 2.9
[2018-09-04 13:19] LABS: Partial Thromboplastin Time 79.1 Seconds (21.0-31.0)
[2018-09-04] MEDS ORDERED: APIXABAN 2.5 MG TAB PO SCH (16:00)
[2018-09-04] MEDS ORDERED: TERAZOSIN HCL 1 MG CAP PO SCH (21:00)
--- NOTE | 2018-09-05 08:01 | Discharge Summary ---
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 Patient states he was awoken secondary to substernal chest pain. Pain was nonradiating, described as an ache, associated with palpitations, nausea, rated 8/10, improved but not relieved with nitro x4, nothing made worse, also tried Tums. He then presented to [facility] ED secondary to pain with his son at bedside. Currently pain is absent. He denies any recent illness, fever, chills, sweats, lightheadedness, dizziness, syncope, shortness of breath at rest, orthopnea, PND, edema, emesis, abdominal pain, diarrhea, change in bowel or urinary habits. He did not take any of his medications today but otherwise has been compliant. History of an NSTEMI in past in which symptoms were similar. He also complains of HENNING although this has been chronic. He has trialed Spiriva without improvement and states he stopped taking it because it did not help and it was too expensive. He does not wear oxygen. He denies cough. He also complains of right shoulder pain but this is chronic as well. In ED patient was found to be in A. fib with RVR, rates [address] depressions. His troponin was elevated 0.065, CK 5.8, CK-MB 4.1. He had slight elevation in WBC 13.94, BUN 31, creatinine 1.45, glucose 86. Chest x-ray was without acute cardia pulmonary abn. He denies history of A. fib in the past or being on anticoagulation. Given 1 dose of IV diltiazem which improved rates to 90s. He was initiated on IV heparin. Patient last seen and evaluated by cardiology 03/15/[address] Suarez. At that time he had been stable from a cardiac perspective and given MARY placed in 2011 his Plavix was discontinued. He also notes that he has had fluctuating dos es in his terazosin, which he takes for BPH, secondary to low blood pressure. Admission Exam Per Admitting Provider Gen: WD/WN, Elderly, M, NAD, sitting up in bed, pleasant, conversing easily Head: Normocephalic, Atraumatic Eyes: Sclera normal, no conjunctival injection, PERRLA, EOMI ENT: Gross hearing intact, normal pharynx, mucous membranes moist Neck: supple, no adenopathy, No JVD, no bruit, Resp: Clear to auscultation b/l, no wheeze, rales, rhonchi. 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 Lung: Clear to Auscultation bilaterally, no wheezes/rales/rhonchi Heart: Regular rate, regular rhythm, no murmurs, rubs, or gallops Abdomen: Protuberant abdomen, soft, NT, ND +BS x 4 Extremities: No edema Skin: Warm, no rash, negative turgor. Discharge Data Allergies Allergy/AdvReac Type Severity Reaction Status Date / Time atenolol Allergy Unknown Verified 09/03/18 07:32 candesartan [From Atacand] Allergy Unknown Verified 09/03/18 07:32 Consultations Cardiology Consultation: 09/03/18 (1) Atrial fibrillation with RVR: The patient converted spontaneously to normal sinus rhythm. He will need to be anticoagulated after discharge. I would continue heparin through the night and then consider Eliquis to be started as an outpatient. (2) Seronegative arthritis: (3) MGUS (monoclonal gammopathy of unknown significance): (4) Troponin level elevated: This is a type II elevation due to the atrial fibrillation and stress. (5) Diabetes mellitus, type 2: (6) History of heart artery stent: Stable coronary artery disease with previous history of a stent in the LAD 2011. Cardiology follow up: 09/04/18 (1) Atrial fibrillation with RVR: Presentation with left sided chest discomfort New onset atrial fibrillation with a rapid ventricular response Status post spontaneous conversion to sinus at 12:20 PM on 09/03/2018, without significant clinical sequela. [id number] Score is 5 points (age greater than 75, HTN, PAD (abnormal SUSIE in January 2018), DM) Continue carvedilol as prescribed Initiate Eliquis at 5 mg twice a day. If/when creatinine is > 1.5 mg/dL then reduce dose to 2.5 mg twice daily. (2) Non-ST elevation (NSTEMI) myocardial infarction: Suspect type II elevation due to the atrial fibrillation in the setting of known CAD (see below) (3) Abnormal EKG: ? Ischemic versus LVH Asymptomatic since spontaneous conversion back to sinus Refer for Lexiscan nuclear stress testing, probably as an outpatient (4) Hiatal hernia: Given initiation of anticoagulation, ASA, and chronic prednisone therapy recommend initiation of PPI therapy. (5) Hypertension: Controlled. Follow (6) Hyperlipidemia: Continue high intensity statin therapy Supervising Physician Co-Signing Physician Notes I have reviewed the chart and seen the patient and examined him. I discussed the case with the physician assistant project manager. I agree with starting him on Eliquis at a reduced dose due to his age and elevated creatinine. He will be started on 2.5 mg Eliquis twice daily. Heparin can then be discontinued. Otherwise he is doing well and we could consider sending him home this evening or tomorrow morning with follow-up through our office. 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 Patient presented with chest pain and found to be in new onset atrial fibrillation with RVR Status post spontaneous conversion to sinus at 12:20 pm on 09/03/18 ChadsVasc 5 Cardiology recommendations: Continue carvediolol as prescribed and initiate Eliquis 2.5mg daily twice daily (secondary to advanced age and CKD 3 Troponin trended 0.065 --> 0.126 --> 0.142 --> 0.128 like Type II secondary to demand ischemia Echocardiogram: revealed LVEF 60 to 65% with moderate concentric LVH, grade 1 diastolic dysfunction, mild to moderate aortic regurg repeat ecg today reveals sinus chon with lateral t wave inversions ischemia vs LVH - cardiology recommend consider lexiscan as outpatient Electrolytes, mag, TSH all WNL A1C 6.8 Lipid panel Chol 134, LDL 71, trig 102, HDL 43 (3) Hypertension: Blood pressure controlled, 135/80 continue coreg, imdur, Lasix and terazosin (4) Diabetes mellitus, type 2: A1c 7.8 on 07/26/2018 A1C improved to 6.8 Continue glipizide and Tradjenta upon discharge (5) Chronic renal disease, stage III: Baseline creatinine 1.2 bun/cr improved to 27 and 1.32 at discharge lasix resumed (6) 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 Alcocer (7) Hiatal hernia: Pt with known Hiatal hernia On chronic prednisone, ASA and now anticoagulation therefore patient started on protonix 20mg daily (8) DVT prophylaxis: SCDS/TEDS, Apixaban Follow up: PCP Dr. Marin upon discharge 09/10/18 2:55pm and Cardiology 09/06/18 11:30 Am Total Time Total Time Spent Total Time Spent (In Minutes): 45 minutes Total Time Includes: Examination of the Patient, Discharge Planning, Medication Reconciliation and Communication With Other Providers Discharge Plan Discharge Items Patient Disposition: Home - Self-Care Reason For Visit: AFIB WITH RVR Discharge Diagnosis: Afib with RVR Chest Pain Non-ST elevation (NSTEMI) myocardial infarction DM type 2 Chronic renal disease, stage III Discharge Goals: Decrease discomfort, Improve disease control, Increase independence and Improve nutritional status Activity: Resume your previous activity Non-emergency contact: Primary Care Provider Call non-emergency contact if: you have any medication questions Follow-up/Referrals: James Marin MD [Primary Care Provider] - Diet: Heart Healthy Addtl Provider Instructions: Follow up with your primary care provider in 1 week (office will call you for the appointment) Follow up with your cardiology (Office will call you) Avoid any activity with risk of fall due to increase risk of bleeding Fall precaution Next dose of Eliquis tomorrow morning. Medication Instructions: Eliquis Your condition is typically treated with an anticoagulant. Anticoagulants will thin your blood to help prevent new clots. You should take her medication exactly as directed. Never skip a dose. Never take a double dose. If you miss a dose, take it as soon as you remember. Avoid NSAIDs (Motrin, Aleve, Naproxen, Ibuprofen, Advil, Meloxicam,..) due to risks of bleeding Call your Primary Care doctor if you experience any of the following: Swelling or Pain in your leg Sudden, continuous pain deep in a muscle Pain that worsens when you are active or when you stand still for a long time Chest Pain Sudden Shortness of Breath Rapid or pounding heart beat Fainting Dizziness Cough with blood or bloody sputum Sweating more than normal Bruises Heavy or uncontrolled bleeding Blood in your urine, stool or vomit Black or tarry stools Caring for Your Self at Home: Follow Up with your primary care provider and cardiology It is important for you to keep your follow up appointments with your medical provider. Prescriptions: New Eliquis 2.5 mg Tablet 2.5 mg PO BID@0600,1800 30 Days Qty: 60 RF: 0 Continued furosemide 40 mg Tablet 40 mg PO QAM RF: 0 atorvastatin 80 mg Tablet 80 mg PO QAM RF: 0 carvedilol 25 mg Tablet 25 mg PO BID RF: 0 prednisone 5 mg Tablet 5 mg PO BID RF: 0 aspirin 81 mg Tablet,Delayed Release (Dr/Ec) 81 mg PO QAM RF: 0 isosorbide mononitrate 60 mg Tablet Extended Release 24 Hr 60 mg PO QPM RF: 0 terazosin 2 mg Capsule 2 mg PO BID RF: 0 nitroglycerin [Nitrostat] 0.4 mg Tablet, Sublingual 1 dose Sublingual UD PRN (Reason: Chest Pain) RF: 0 Phosphorous 250 mg Tablet 1 tab PO BID RF: 0 glipizide 5 mg Tablet 5 mg PO QAM RF: 0 fenofibrate nanocrystallized 48 mg Tablet 48 mg PO QPM RF: 0 albuterol sulfate 90 mcg/actuation Aerosol Powdr Breath Activated 1 inh INHALATION QID PRN (Reason: Shortness Of Breath) RF: 0 Tradjenta 5 mg tablet 5 mg PO DAILY RF: 0 coenzyme Q10 200 mg Capsule 200 mg PO DAILY RF: 0 Centrum 18-400 mg-mcg Tablet 1 tab PO DAILY RF: 0 Stand-Alone Forms: [facility]/Other Patient Handouts: Apixaban Oral tablet, AFL/Afib, Diabetes Java 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
[2018-09-05] MEDS ORDERED: APIXABAN 2.5 MG TAB PO ONE (09:00)
[2018-09-05] MEDS ORDERED: FUROSEMIDE 40 MG TAB PO SCH (09:00)
[2018-09-05] MEDS ORDERED: APIXABAN 2.5 MG TAB PO SCH (09:00)
== END 2018-09-04 18:30 | disposition home or self-care (01) | DRG 282 ==
LOC: ED 06:45 → 2S 08:55 → SUATTDRO 08:55 → 2S 11:46

== ENCOUNTER 2018-11-25 10:53 | Inpatient (IN) ==
[2018-11-25 11:25] LABS: Basophils # (auto) 0.01 K/uL (0-0.2); Basophils % (auto) 0.1 %; Eosinophils # (auto) 0.11 K/uL (0-0.5); Eosinophils % (auto) 0.8 %; Hemoglobin 14.3 g/dL (14.0-18.0); Immature Granulocytes # (auto) 0.21 K/uL (0.00-0.02); Immature Granulocytes % (auto) 1.6 %; Lymphocytes # (auto) 1.68 K/uL (1.2-3.4); Lymphocytes % (auto) 12.8 %; Mean Corpuscular Hgb Conc 33.3 g/dL (32-36); Mean Corpuscular Volume 90.1 fL (80-100); Mean Platelet Volume 10.5 fL (7.4-10.4); Monocytes # (auto) 1.12 K/uL (0.11-0.59); Monocytes % (auto) 8.5 %; Neutrophils # (auto) 10.02 K/uL (1.4-6.5); Neutrophils % (auto) 76.2 %; Platelet Count 161 K/uL (130-400); RDW Coefficient of Variation 15.2 % (11.5-14.5); RDW Standard Deviation 50.4 fL (36.4-46.3); Red Blood Count 4.77 M/uL (4.7-6.1); White Blood Count 13.15 K/uL (4.8-10.8)
[2018-11-25 11:42] LABS: Albumin Level 2.7 gm/dl (3.4-5.0); BUN Creatinine Ratio 18.2 (10-20); Calcium 8.4 mg/dl (8.5-10.1); Creatinine Clr Calc Pharmacy 45.5 ml/min; Est GFR (Non-African American) 48.3; INR 1.1 (0.9-1.1); Partial Thromboplastin Ratio 0.9; Partial Thromboplastin Time 24.4 Seconds (21.0-31.0); Potassium 3.9 mmol/L (3.5-5.1); Prothrombin Time 10.8 Seconds (9.0-12.0)
[2018-11-25 11:49] LABS: Albumin Globulin Ratio 0.9 (0.9-2); Bilirubin,Total 0.4 mg/dl (0.2-1); Globulin 3.1 gm/dl (2.5-4.0); Total Protein 5.8 gm/dl (6.4-8.2); Troponin I 0.072 ng/ml (0-0.045)
[2018-11-25] MEDS: METOPROLOL TARTRATE 1 MG/ML VIAL IV PRN ×2 (11:57→13:21)
--- NOTE | 2018-11-25 12:11 | XRay Report ---
XR chest 1V portable HISTORY: Atypical chest pain COMPARISON: Chest 09/03/2018. FINDINGS: There are low lung volumes. The heart remains enlarged. No pneumothorax. There are small pl eural effusions and bibasilar densities. Perihilar interstitial and vascular thickening has progresse d suggestive of mild pulmonary edema. Moderate retrocardiac density consistent with a hiatus hernia. IMPRESSION: 1. Cardiomegaly with mild interstitial pulmonary edema and small bilateral pleural effusions. This wilson s progressed. 2. Retrocardiac density consistent with a hiatus hernia. Electronically signed by: Nathan Bland M.D. 11/25/2018 12:09 PM
[2018-11-25] MEDS ORDERED: FUROSEMIDE 40 MG/4 ML VIAL IV STA (13:08)
--- NOTE | 2018-11-25 14:53 | History & Physical Report ---
Date of Service November 25, 2018 Assessment & Plan (1) Atrial fibrillation with RVR: -admit to tele -patient presenting from home with reports of chest tightness that awoke him out of sleep around 3am; took 1 SL nitro at home along with routine cardiac meds and had resolution of symptoms by the time he arrived to the ED -in the ED, found to be in afib with RVR, HR in the 120s -received metoprolol 5mg IV x 2 doses with some improvement in HR; BPs intermittently running borderline low -case discussed with cardiology, Dr. Haines - he will evaluate the patient and determine on further therapy, ?? initiation of anti-arrhythmic drug -patient anticoagulated on Eliquis, will continue -no need to repeat echo at this time, most recent one done 08/2018 - EF 60-65%, grade 1 diastolic dysfunction (2) Chronic diastolic CHF (congestive heart failure): -may have some mild volume overload on CXR - likely from afib with RVR -due to borderline low BPs, will hold on diuresing for now -patient does not examine to be significantly volume overloaded (3) Elevated troponin: (4) CAD (coronary artery disease): -trop mildly elevated 0.072; likely demand ischemia from aib with RVR -continue to cycle cardiac enzymes -no acute ST changes on EKG -continue aspirin, statin, nitrate; hold home dose of beta-rm for now until cardiology makes medication recommendations as above (5) Diabetes mellitus, type 2: -HgbA1c 6.6 09/2018 -Hold oral agents and utilize NovoLog per protocol hospitalized (6) Chronic renal disease, stage III: - baseline creat ~ 1.2-1.4 - creat noted to be 1.3 today - continue to monitor, avoid nephrotoxic agents when able (7) BPH (benign prostatic hyperplasia): -Continue terazosin (8) DVT prophylaxis: -Anticoagulated on Eliquis History of Present Illness Chief Complaint: Chest Tightness Primary Care Provider: James Marin MD 83 year old male who presents to the ED with chest tightness. Patient recently admitted to [facility] 08/2018 for new onset atrial fibrillation with RVR. Patient spontaneously converted to NSR and was started on Eliquis. His other cardiac meds remained unchanged (carvedilol and isosorbide). Patient reports he was awoken out of sleep around 3am and had a feeling of "fullness" and tightness across his chest. He denies palpitations. Patient reports he took 1 SL nitro and his regular morning meds and subsequently felt better. He then presented to the ED for further evaluation. Patient has chronic exertional shortness of breath which is unchanged from baseline. Also has some chronic lower extremity edema, right > left, which is unchanged from baseline as well. He denies orthopenea. He had some mild lightheadednss and dizziness while ambulating to the bathroom in the ED. Denies syncope or diaphoresis. Reports he otherwise has been feeling well recently. No recent illnesses, fevers, or chills. Denies abdominal pain, nausea, vomiting. No urinary symptoms. In the ED, patient was found to be in afib with RVR, HR in the 120s. Labs show mildly elevated trop 0.072. EKG shows afib with RVR without acute ST changes. Patient was given metoprolol 5mg IV x 2 doses. Allergies Allergy/AdvReac Type Severity Reaction Status Date / Time atenolol Allergy Unknown Verified 11/25/18 13:49 candesartan [From Atacand] Allergy Unknown Verified 11/25/18 13:49 Home Medications Home Medications Medication Instructions Recorded Confirmed Type albuterol sulfate 1 inh INHALATION QID PRN 06/04/18 11/25/18 History aspirin 81 mg PO QAM 06/04/18 11/25/18 History atorvastatin 80 mg PO QAM 06/04/18 11/25/18 History carvedilol 25 mg PO BID 06/04/18 11/25/18 History fenofibrate nanocrystallized 48 mg PO QPM 06/04/18 11/25/18 History furosemide 40 mg PO QAM 06/04/18 11/25/18 History glipizide 5 mg PO DAILY 06/04/18 11/25/18 History isosorbide mononitrate 60 mg PO QAM 06/04/18 11/25/18 History nitroglycerin [Nitrostat] 1 dose SUBLINGUAL UD PRN 06/04/18 11/25/18 History prednisone 10 mg PO DAILY 06/04/18 11/25/18 History terazosin 2 mg PO DAILY 06/04/18 11/25/18 History Centrum 1 tab PO DAILY 09/03/18 11/25/18 History Tradjenta 5 mg PO DAILY 09/03/18 11/25/18 History coenzyme Q10 200 mg PO DAILY 09/03/18 11/25/18 History apixaban [Eliquis] 2.5 mg PO BID 11/25/18 11/25/18 History sod phos di, mono-K phos mono 1 tab PO TID 11/25/18 11/25/18 History [Phospha 250 Neutral] Past Med/Surg History Medical History CAD (coronary artery disease) (Chronic) 2011 - MARY to LAD BPH (benign prostatic hyperplasia) (Chronic) 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 RAMÍREZ Osteoarthritis (Chronic) Chronic back pain (Chronic) Scoliosis (Chronic) Surgical History History of heart artery stent (Chronic) History of tooth extraction (Chronic) History of cataract surgery (Chronic) RIGHT Family History Mother Coronary heart disease, Onset Age: 63 of [place] CHF (congestive heart failure) Myocardial infarction Father CHF (congestive heart failure) Pneumonia Sister Coronary heart disease History of CABG Rheumatic heart disease Social History Preferred Language: Hong Konger Communication Ability: Effective Chief Optometry Service Required: No Beliefs That Will Affect Care: None marital status: / Current Living Situation: Significant Other Other Information That Helps Us Care for You: No Feels Safe at Home: Yes Safety Concerns: Feels Safe At This Time Smoking Status: Never smoker Second Hand Exposure: Yes ( A CHILD) ; Hx Alcohol Use: No Hx Substance Use: No Review of Systems Review of Systems: ROS per HPI, all other systems reviewed and negative Physical Exam Constitutional: WD/WN, vitals as above Eyes: PERRL, conjunctivae normal, anicteric sclerae ENMT: external ear and nose normal, oropharynx normal Respiratory: normal respiratory effort; no respiratory distress Auscultation: + diminished lung sounds Cardiovascular: Rate/Rhythm: regular rate and regular rhythm Vessels: normal peripheral pulses Extremities: + edema (trace edema BLE, right > left, chronic per patient) Gastrointestinal (Abdomen): normal bowel sounds, soft, nontender, no hepatosplenomegaly Musculoskeletal: no cyanosis or clubbing, extremities motor strength 5/5 Skin: no rashes, warm and dry Neurologic: PERRL, EOMI, accommodation nl, no face palsy, no dysarthria Psychiatric: A+Ox3, euthymic affect Results & Data Vital Signs (Past 12 Hours) Vital Signs Temp Pulse Resp BP Pulse Ox 11/25/18 14:40 127 H 22 95 11/25/18 14:30 122 H 23 113/72 95 11/25/18 14:20 115 H 22 95 11/25/18 14:10 100 H 19 96 11/25/18 14:01 109 H 18 129/81 95 11/25/18 14:00 113 H 29 H 94 11/25/18 13:50 106 H 21 92 11/25/18 13:40 109 H 19 96 11/25/18 13:30 119 H 24 87/62 L 95 11/25/18 13:21 112 H 105/66 11/25/18 13:20 111 H 23 96 11/25/18 13:13 108 H 17 105/66 11/25/18 13:10 121 H 14 93 11/25/18 13:00 110 H 8 L 91/71 L 96 11/25/18 12:50 103 H 17 95 11/25/18 12:43 98 H 17 120/65 98 11/25/18 12:40 96 11/25/18 12:37 97 11/25/18 12:20 109 H 19 93 11/25/18 12:10 98 H 16 94 11/25/18 12:00 115 H 13 116/54 L 94 11/25/18 11:57 116 H 119/72 11/25/18 11:50 108 H 18 96 11/25/18 11:40 109 H 23 97 11/25/18 11:31 105 H 17 119/72 97 11/25/18 11:30 110 H 24 99 11/25/18 11:20 110 H 15 97 11/25/18 11:15 121 H 19 113/66 97 11/25/18 11:11 113 H 17 96 11/25/18 11:10 119 H 13 95 11/25/18 11:07 152 H 15 94 11/25/18 11:04 36.9 C 107 H 16 93/57 L 96 11/25/18 11:02 124 H 16 93/57 L Laboratory Results Short CBC 11/25/18 Range/Units 11:10 WBC 13.15 H (4.8-10.8) K/uL Hgb 14.3 (14.0-18.0) g/dL Hct 43.0 (42-52) % Plt Count 161 (130-400) K/uL BMP 11/25/18 11:10 Sodium 143 Potassium 3.9 Chloride 108 H Carbon Dioxide 28 BUN 24 H Creatinine 1.34 Glucose 201 H Calcium 8.4 L Cardiac Enzymes 11/25/18 Range/Units 11:10 Troponin I 0.072 H* (0-0.045) ng/ml Liver Function 11/25/18 Range/Units 11:10 Total Bilirubin 0.4 (0.2-1) mg/dl AST 30 (15-37) U/L ALT 52 (12-78) U/L Alkaline Phosphatase 41 L (45-117) U/L Albumin 2.7 L (3.4-5.0) gm/dl Diagnostic Findings CXR IMPRESSION: 1. Cardiomegaly with mild interstitial pulmonary edema and small bilateral pleural effusions. This has progressed. 2. Retrocardiac density consistent with a hiatus hernia. Code Status & VTE Plan Code Status Patient is a full code as per my discussion with him. VTE Prophylaxis Plan VTE Prophylaxis will be ordered: Yes Supervising Physician Co-Signing Physician Notes Pt was seen and examined. Agreed with Cristina CAT exam, assessment and plan. 83 year old male with PMH of BPH, CHF, CAD, CKD stage 3 with recent admission for Afib in 09/18 who presents to the ED with chest tightness associated with palpitation. Present on admission with Afib RVR. Received Lopressor 10mg IV in the ER. BP dropped in the SBP 90's after the Lopressor. Troponin mildly elevated on admission. Pt spontaneously converted back to NSR around 14:50. Will trend troponin. Continue Eliquis for now. Cardiology on board, starting on sotalol. Will monitor closely in tele. MD Fina
[2018-11-25] MEDS ORDERED: GLUCOSE 10 TABS/TUBE PO PRN (15:27)
[2018-11-25] MEDS ORDERED: GLUCOSE 40% GEL 15 GM TUBE PO PRN (15:27)
[2018-11-25] MEDS ORDERED: CARBOHYDRATES FOR HYPOGLYCEMIA PO PRN (15:27)
[2018-11-25] MEDS ORDERED: GLUCAGON FOR INJ 1 MG VIAL SQ PRN (15:27)
[2018-11-25] MEDS ORDERED: ACETAMINOPHEN 325 MG TAB PO PRN (15:27)
[2018-11-25] MEDS ORDERED: DEXTROSE 50% 50 ML SYRINGE IV PRN (15:27)
--- NOTE | 2018-11-25 16:07 | Emergency Department Note ---
Entered by Denis Workman acting as a scribe for Louise Jaramillo MD History of Present Illness General Chief complaint: Chest Pain Stated complaint: CHEST PAIN Time Seen by Provider: 11/25/18 11:13 Source: patient History of Present Illness Provider complaint: Chest pain Onset (ago): hour(s) 7 Location: chest Radiation: non-radiation Severity: similar to prior episodes Pain Consistency: + intermittent Relieved By: + none Exacerbated By: + none Associated symptoms: + other (Positive dizziness) The patient is an 83 year old male who presents to the Emergency Room with complaints of intermittent chest pain that started this morning around 04:00, 7 hours ago. The patient describes his symptoms as feeling very congested. The patient reports that later on in the morning the patient started to become dizzy with the pain so he took a nitroglycerin. Per the patient's family the patient was in the hospital at the end of August for similar symptoms and he had atrial fibrillation. The patient notes his current symptoms do not feel exactly the same because the pain now is more diffuse through his chest. The patient states he took all of his morning medications. The patient is on Eliquis for his Afib. Home Medications Home Medications Medication Instructions Recorded Confirmed Type albuterol sulfate 1 inh INHALATION QID PRN 06/04/18 11/25/18 History aspirin 81 mg PO QAM 06/04/18 11/25/18 History atorvastatin 80 mg PO QAM 06/04/18 11/25/18 History carvedilol 25 mg PO BID 06/04/18 11/25/18 History fenofibrate nanocrystallized 48 mg PO QPM 06/04/18 11/25/18 History furosemide 40 mg PO QAM 06/04/18 11/25/18 History glipizide 5 mg PO DAILY 06/04/18 11/25/18 History isosorbide mononitrate 60 mg PO QAM 06/04/18 11/25/18 History nitroglycerin [Nitrostat] 1 dose SUBLINGUAL UD PRN 06/04/18 11/25/18 History prednisone 10 mg PO DAILY 06/04/18 11/25/18 History terazosin 2 mg PO DAILY 06/04/18 11/25/18 History Centrum 1 tab PO DAILY 09/03/18 11/25/18 History Tradjenta 5 mg PO DAILY 09/03/18 11/25/18 History coenzyme Q10 200 mg PO DAILY 09/03/18 11/25/18 History apixaban [Eliquis] 2.5 mg PO BID 11/25/18 11/25/18 History sod phos di, mono-K phos mono 1 tab PO TID 11/25/18 11/25/18 History [Phospha 250 Neutral] Allergies Allergy/AdvReac Type Severity Reaction Status Date / Time atenolol Allergy Unknown Verified 11/25/18 13:49 candesartan [From Atacand] Allergy Unknown Verified 11/25/18 13:49 Past Med/Surg History Medical History CAD (coronary artery disease) (Chronic) 2011 - [facility] to LAD BPH (benign prostatic hyperplasia) (Chronic) 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 RAMÍREZ Osteoarthritis (Chronic) Chronic back pain (Chronic) Scoliosis (Chronic) Surgical History History of heart artery stent (Chronic) History of tooth extraction (Chronic) History of cataract surgery (Chronic) RIGHT Family History Mother Coronary heart disease, Onset Age: 63 of [place] CHF (congestive heart failure) Myocardial infarction Father CHF (congestive heart failure) Pneumonia Sister Coronary heart disease History of CABG Rheumatic heart disease Social History Preferred Language: Vietnamese Communication Ability: Effective Legal Activity Adjudicator Required: No Beliefs That Will Affect Care: None marital status: / Current Living Situation: Significant Other Other Information That Helps Us Care for You: No Feels Safe at Home: Yes Safety Concerns: Feels Safe At This Time Smoking Status: Never smoker Second Hand Exposure: Yes ( A CHILD) ; Hx Alcohol Use: No Hx Substance Use: No Review of Systems See HPI for pertinent positives & negatives. and A total of 10 systems reviewed and were otherwise negative Physical Exam Vital Signs Vital Signs - 24 hr 11/25/18 11:02 11/25/18 11:04 11/25/18 11:07 Temperature 36.9 C Temperature Source Oral Sepsis Recent Fever Within 48 Hours No Sepsis New/Unexplained Change in Mental Status No Sepsis Action Taken by Nursing No Action Required Pulse Rate 124 H 107 H 152 H Pulse Rate from SpO2 Sensor 88 Pulse Rhythm Regular Pulse Strength Normal Respiratory Rate 16 16 15 Respiratory Effort / Characteristics Non-Labored Spontaneous Respiratory Depth Normal Respiratory Pattern Regular Blood Pressure 93/57 L 93/57 L Blood Pressure Mean 69 69 Blood Pressure Position Lying Pulse Oximetry 96 94 Oxygen Delivery Method Room Air 11/25/18 11:10 11/25/18 11:11 11/25/18 11:15 Temperature Temperature Source Sepsis Recent Fever Within 48 Hours Sepsis New/Unexplained Change in Mental Status Sepsis Action Taken by Nursing Pulse Rate 119 H 113 H 121 H Pulse Rate from SpO2 Sensor 109 H 107 H Pulse Rhythm Pulse Strength Respiratory Rate 13 17 19 Respiratory Effort / Characteristics Respiratory Depth Respiratory Pattern Blood Pressure 113/66 Blood Pressure Mean 81 Blood Pressure Position Pulse Oximetry 95 96 97 Oxygen Delivery Method Room Air 11/25/18 11:20 11/25/18 11:30 11/25/18 11:31 Temperature Temperature Source Sepsis Recent Fever Within 48 Hours Sepsis New/Unexplained Change in Mental Status Sepsis Action Taken by Nursing Pulse Rate 110 H 110 H 105 H Pulse Rate from SpO2 Sensor 95 H 108 H 102 H Pulse Rhythm Pulse Strength Respiratory Rate 15 24 17 Respiratory Effort / Characteristics Respiratory Depth Respiratory Pattern Blood Pressure 119/72 Blood Pressure Mean 87 Blood Pressure Position Pulse Oximetry 97 99 97 Oxygen Delivery Method 11/25/18 11:40 11/25/18 11:50 11/25/18 11:57 Temperature Temperature Source Sepsis Recent Fever Within 48 Hours Sepsis New/Unexplained Change in Mental Status Sepsis Action Taken by Nursing Pulse Rate 109 H 108 H 116 H Pulse Rate from SpO2 Sensor 89 91 H Pulse Rhythm Pulse Strength Respiratory Rate 23 18 Respiratory Effort / Characteristics Respiratory Depth Respiratory Pattern Blood Pressure 119/72 Blood Pressure Mean Blood Pressure Position Pulse Oximetry 97 96 Oxygen Delivery Method 11/25/18 12:00 11/25/18 12:10 11/25/18 12:20 Temperature Temperature Source Sepsis Recent Fever Within 48 Hours Sepsis New/Unexplained Change in Mental Status Sepsis Action Taken by Nursing Pulse Rate 115 H 98 H 109 H Pulse Rate from SpO2 Sensor 84 77 88 Pulse Rhythm Pulse Strength Respiratory Rate 13 16 19 Respiratory Effort / Characteristics Respiratory Depth Respiratory Pattern Blood Pressure 116/54 L Blood Pressure Mean 74 Blood Pressure Position Pulse Oximetry 94 94 93 Oxygen Delivery Method 11/25/18 12:37 11/25/18 12:40 11/25/18 12:43 Temperature Temperature Source Sepsis Recent Fever Within 48 Hours Sepsis New/Unexplained Change in Mental Status Sepsis Action Taken by Nursing Pulse Rate 98 H Pulse Rate from SpO2 Sensor 101 H 91 H 85 Pulse Rhythm Pulse Strength Respiratory Rate 17 Respiratory Effort / Characteristics Respiratory Depth Respiratory Pattern Blood Pressure 120/65 Blood Pressure Mean 83 Blood Pressure Position Pulse Oximetry 97 96 98 Oxygen Delivery Method 11/25/18 12:50 11/25/18 13:00 11/25/18 13:10 Temperature Temperature Source Sepsis Recent Fever Within 48 Hours Sepsis New/Unexplained Change in Mental Status Sepsis Action Taken by Nursing Pulse Rate 103 H 110 H 121 H Pulse Rate from SpO2 Sensor 83 84 103 H Pulse Rhythm Pulse Strength Respiratory Rate 17 8 L 14 Respiratory Effort / Characteristics Respiratory Depth Respiratory Pattern Blood Pressure 91/71 L Blood Pressure Mean 77 Blood Pressure Position Pulse Oximetry 95 96 93 Oxygen Delivery Method 11/25/18 13:13 11/25/18 13:20 11/25/18 13:21 Temperature Temperature Source Sepsis Recent Fever Within 48 Hours Sepsis New/Unexplained Change in Mental Status Sepsis Action Taken by Nursing Pulse Rate 108 H 111 H 112 H Pulse Rate from SpO2 Sensor 87 Pulse Rhythm Pulse Strength Respiratory Rate 17 23 Respiratory Effort / Characteristics Respiratory Depth Respiratory Pattern Blood Pressure 105/66 105/66 Blood Pressure Mean 79 Blood Pressure Position Pulse Oximetry 96 Oxygen Delivery Method 11/25/18 13:30 11/25/18 13:40 11/25/18 13:50 Temperature Temperature Source Sepsis Recent Fever Within 48 Hours Sepsis New/Unexplained Change in Mental Status Sepsis Action Taken by Nursing Pulse Rate 119 H 109 H 106 H Pulse Rate from SpO2 Sensor 75 84 95 H Pulse Rhythm Pulse Strength Respiratory Rate 24 19 21 Respiratory Effort / Characteristics Respiratory Depth Respiratory Pattern Blood Pressure 87/62 L Blood Pressure Mean 70 Blood Pressure Position Pulse Oximetry 95 96 92 Oxygen Delivery Method Vital signs reviewed. General: Elderly, well-appearing 83 year old male, obese, in no significant distress. HEENT: No scleral icterus, PERRLA, neck supple. Atraumatic. Cardiovascular: Tachycardic rate and irregular rhythm, no extra sounds. Pulmonary: Crackles at the bases bilaterally, normal work of breathing. Abdomen: Soft, nontender, nondistended, positive bowel sounds. Musculoskeletal: Atraumatic, no peripheral edema. Neurologic: Patient awake alert and oriented x 3. Skin: Warm, dry, no rash Course 1116: Past medical records reviewed. The patient was evaluated in room A04B, and a complete history and physical examination were performed. 1256: I reevaluated the patient and updated him on results. We also discussed the treatment plan which he fully understands and agrees with. 1320: I spoke to [facility], under Dr. Fina Farley, about the patient's case. They are going to accept the patient for further evaluation. Consultations Consultation #1: I spoke to [facility], under Dr. Fina Farley, about the patient's case. They are going to accept the patient for further evaluation. Time: 13:20 Administered Medications Apixaban (Eliquis) 2.5 mg PO BID [facility] Stop: 12/25/18 20:59 Last Admin: 11/26/18 07:43 Dose: 2.5 mg Documented by: [id number] Admin: 11/25/18 20:12 Dose: 2.5 mg Documented by: [id number] Aspirin (Ecotrin Ectab) 81 mg PO QAM [facility] Stop: 12/26/18 08:59 Last Admin: 11/26/18 07:43 Dose: 81 mg Documented by: [id number] Atorvastatin Calcium (Lipitor) 80 mg PO QAM [facility] Stop: 12/26/18 08:59 Last Admin: 11/26/18 07:43 Dose: 80 mg Documented by: [id number] Carvedilol (Coreg) 12.5 mg PO BID [facility] Stop: 12/25/18 20:59 Last Admin: 11/26/18 07:44 Dose: 12.5 mg Documented by: [id number] Admin: 11/25/18 20:12 Dose: 12.5 mg Documented by: [id number] Fenofibrate (Fenofibrate) 48 mg PO QPM [facility] Stop: 12/25/18 20:59 Last Admin: 11/25/18 20:12 Dose: 48 mg Documented by: [id number] Insulin Aspart (Novolog Flexpen) 0 units SC ACHS [facility] Stop: 12/25/18 16:29 Last Admin: 11/26/18 12:59 Dose: Not Given Documented by: [id number] Cosigned by: [id number] Admin: 11/26/18 07:48 Dose: Not Given Documented by: [id number] Cosigned by: [id number] Admin: 11/25/18 20:19 Dose: 2 units Documented by: [id number] Cosigned by: [id number] Admin: 11/25/18 17:44 Dose: 5 units Documented by: [id number] Cosigned by: [id number] Isosorbide Mononitrate (Imdur Extended Rel) 60 mg PO QPM [facility] Stop: 12/25/18 20:59 Last Admin: 11/25/18 20:12 Dose: 60 mg Documented by: [id number] Multivitamins/Minerals (Multivitamin W/ Minerals Tab) 1 tab PO DAILY [facility] Stop: 12/26/18 08:59 Last Admin: 11/26/18 07:43 Dose: 1 tab Documented by: [id number] Potassium Phosphate (Phospha 250 Neutral 155-852-130 Mg) 1 tab PO TID [facility] Stop: 12/25/18 20:59 Last Admin: 11/26/18 14:14 Dose: 1 tab Documented by: [id number] Admin: 11/26/18 07:43 Dose: 1 tab Documented by: [id number] Admin: 11/25/18 20:12 Dose: 1 tab Documented by: [id number] Sotalol HCl (Betapace) 40 mg PO BID [facility] Stop: 12/26/18 08:59 Last Admin: 11/26/18 07:43 Dose: 40 mg Documented by: [id number] Discontinued Medications Furosemide (Lasix) 40 mg IV NOW STA Stop: 11/25/18 13:09 Last Admin: 11/25/18 16:03 Dose: Not Given Documented by: [id number] Metoprolol Tartrate (Lopressor) 5 mg IV Q5M PRN PRN Reason: Tachycardia Stop: 12/25/18 11:23 Last Admin: 11/25/18 13:21 Dose: 5 mg Documented by: [id number] Admin: 11/25/18 11:57 Dose: 5 mg Documented by: [id number] Potassium Chloride (Klor-Con M20) 20 meq PO NOW STA Stop: 11/26/18 09:17 Last Admin: 11/26/18 10:16 Dose: 20 meq Documented by: [id number] Prednisone (Prednisone) 10 mg PO DAILY [facility] Stop: 12/26/18 08:59 Last Admin: 11/26/18 07:44 Dose: 5 mg Documented by: [id number] Sotalol HCl (Betapace) 80 mg PO NOW ONE Stop: 11/25/18 16:20 Last Admin: 11/25/18 17:44 Dose: 80 mg Documented by: [id number] Medical Decision Making Differential Diagnosis Differential diagnoses includes but is not limited to acute coronary syndrome, myocardial infarction, pericarditis, pulmonary embolus, aortic dissection, pneumonia, pneumothorax, musculoskeletal, shingles, esophageal. Medical Records Attestation: I reviewed the patient's medical records. Home Medications Current Medication List: was personally reviewed by me Laboratory Data Attestation: I reviewed the patient's lab results. Result diagrams: 11/26/18 07:42 11/26/18 07:42 Lab Results 11/25/18 11/25/18 11/25/18 Range/Units 11:10 11:10 11:10 WBC 13.15 H (4.8-10.8) K/uL RBC 4.77 (4.7-6.1) M/uL Hgb 14.3 (14.0-18.0) g/dL Hct 43.0 (42-52) % MCV 90.1 (80-100) fL MCH 30.0 (25-34) pg MCHC 33.3 (32-36) g/dL RDW Std Deviation 50.4 H (36.4-46.3) fL RDW Coeff of Coty 15.2 H (11.5-14.5) % Plt Count 161 (130-400) K/uL MPV 10.5 H (7.4-10.4) fL Immature Gran % (Auto) 1.6 % Neut % (Auto) 76.2 % Lymph % (Auto) 12.8 % Meade % (Auto) 8.5 % Eos % (Auto) 0.8 % Baso % (Auto) 0.1 % Immature Gran # (Auto) 0.21 H (0.00-0.02) K/uL Neut # (Auto) 10.02 H (1.4-6.5) K/uL Lymph # (Auto) 1.68 (1.2-3.4) K/uL Meade # (Auto) 1.12 H (0.11-0.59) K/uL Eos # (Auto) 0.11 (0-0.5) K/uL Baso # (Auto) 0.01 (0-0.2) K/uL PT 10.8 (9.0-12.0) Seconds INR 1.1 (0.9-1.1) APTT 24.4 (21.0-31.0) Seconds PTT Ratio 0.9 Sodium 143 (136-145) mmol/L Potassium 3.9 (3.5-5.1) mmol/L Chloride 108 H (98-107) mmol/L Carbon Dioxide 28 (21-32) mmol/L Anion Gap 7.0 (3-11) BUN 24 H (7-18) mg/dl Creatinine 1.34 (0.6-1.4) mg/dl Est Cr Clr Drug Dosing 45.5 ml/min Est GFR ( Amer) 56.0 Est GFR (Non-Af Amer) 48.3 BUN/Creatinine Ratio 18.2 (10-20) Glucose 201 H (70-99) mg/dl Calcium 8.4 L (8.5-10.1) mg/dl Total Bilirubin 0.4 (0.2-1) mg/dl AST 30 (15-37) U/L ALT 52 (12-78) U/L Alkaline Phosphatase 41 L (45-117) U/L Troponin I 0.072 H* (0-0.045) ng/ml Total Protein 5.8 L (6.4-8.2) gm/dl Albumin 2.7 L (3.4-5.0) gm/dl Globulin 3.1 (2.5-4.0) gm/dl Albumin/Globulin Ratio 0.9 (0.9-2) Imaging Data Radiologist's Impression: Radiology results as stated below per my review and the radiologist's interpretation: XR chest 1V portable HISTORY: Atypical chest pain COMPARISON: Chest 09/03/2018. FINDINGS: There are low lung volumes. The heart remains enlarged. No pneumothorax. There are small pleural effusions and bibasilar densities. Perihilar interstitial and vascular thickening has progressed suggestive of mild pulmonary edema. Moderate retrocardiac density consistent with a hiatus hernia. IMPRESSION: 1. Cardiomegaly with mild interstitial pulmonary edema and small bilateral pleural effusions. This has progressed. 2. Retrocardiac density consistent with a hiatus hernia. Electronically signed by: Nathan Bland M.D. 11/25/2018 12:09 PM ECG Data Attestation: I personally reviewed and interpreted this ECG as follows: Indication: chest pain Rate (beats per minute): 114 Rhythm: atrial fibrillation Findings: + other (QTC 468) and + nonspecific-ST abn (Laterally); no acute ischemic change Blood Pressure Blood Pressure Findings: Normal blood pressure Blood Pressure Disposition: further management by hospitalist MDM Narrative This patient was evaluated and appeared to be in no significant distress. IV access was obtained and laboratory work was drawn. Patient is found to be in a rapid atrial fibrillation however his systolic blood pressure is in the mid 90s. Patient was given 5 mg of IV metoprolol and the systolic pressure was above 100. IV Lasix was ordered but initially held. Chest x-ray was performed and reveals congestive change. Laboratory work reveals a mild leukocytosis and a slightly elevated troponin however this is improved from his previous numbers. Patient did receive a second dose of IV metoprolol for better rate control and blood pressures remained low but fairly stable. Given the borderline blood pressures, rapid atrial fibrillation and congestive changes, the patient's case was discussed with the hospitalist service for further management. Patient has expressed an understanding of the plan and agrees. Impression & Plan Atrial fibrillation, rapid, CHF (congestive heart failure) Critical Care Time Critical Care Time: Yes Total Critical Care Time: 30 I have personally spent greater than 30 minutes of critical care time in the direct management of this patient. This includes bedside care, interpretation of diagnostic studies, and testing, discussion with consultants, patient, and family members, and other required patient management activities. This 30 minutes is in excess of all separately billable procedures. Discharge Plan Visit Data *Final* Discharge Date/Time: 11/25/18 15:38 Chief Complaint: Chest Pain Stated Complaint: CHEST PAIN ED Provider: Louise Jaramillo Discharge Problem: Atrial fibrillation, rapid, CHF (congestive heart failure) Patient Disposition: Admitted As Inpatient Discharge Instructions Interventions: ED Discharge Assessment Last Done: 11/25/18 14:45 Discharge Problem: CHF (congestive heart failure) Qualifiers: Heart failure type: unspecified Heart failure chronicity: unspecified Qualified Code(s): I50.9 - Heart failure, unspecified The scribe's documentation has been prepared under my direction and personally reviewed by me in its entirety. I confirm that the note above accurately reflects all work, treatment, procedures, and medical decision making performed by me.
[2018-11-25] MEDS ORDERED: SOTALOL HCL 80 MG TAB PO ONE (16:19)
--- NOTE | 2018-11-25 16:27 | Cardiology Consultation ---
Date of Consultation November 25, 2018 Assessment & Plan (1) Atrial fibrillation, rapid: (2) Chronic diastolic CHF (congestive heart failure): (3) CAD (coronary artery disease): (4) Elevated troponin I level: Recommendations: 83-year-old patient well-known to the undersigned presents with recurrent rapid atrial fibrillation with associated angina and palpitations. Spontaneously converted to normal sinus rhythm. Minimally elevated troponin I consistent with demand ischemia in the setting of rapid atrial fibrillation. Currently asymptomatic with minimal troponin elevation. Appropriately anticoagulated with renal dose Eliquis. Recommend reduction of carvedilol dosing to 12.5 mg twice daily. Hytrin will be placed on hold at this time. Patient will remain hospitalized for sotalol loading. 80 mg will be given x1 now with 40mg dose in a.m. Repeat daily ECG and continue telemetry monitoring during hospitalization. Patient will likely require a reduced dose of sotalol due to renal impairment. With evidence of tachy-chon syndrome I had a brief discussion with the patient regarding potential need for pacemaker implantation pending clinical response to medication changes. Patient voiced understanding. Thank you for allowing me to participate in the care of your patient. I will continue to follow closely during hospitalization. History of Present Illness Reason for Consultation: Chest pain, paroxysmal atrial fibrillation Requesting Physician: Cristina CAT Attending Physician: Dayne Rockwell MD History of Present Illness 83-year-old patient presented to the emergency department with chest discomfort and palpitations. Initial ECGs demonstrate atrial fibrillation with rapid ventricular response. Patient treated with 10 mg of IV Lopressor with subsequent improvement of rate control. Patient transiently hypotensive with systolic blood pressures as low as 90 mmHg. No associated lightheadedness, dizziness, syncope, or near syncope. Blood pressure has improved since admission. Patient spontaneously converted to normal sinus rhythm. Chest discomfort and palpitations have resolved. First troponin minimally elevated. Currently patient asymptomatic. Recently admitted August 2018 with new onset atrial fibrillation. Prescribed renally dosed Eliquis during that visit. No recurrence since that time. Reports chronic dyspnea on exertion with poor exercise tolerance. No orthopnea, PND, or weight gain. Mild bilateral lower extremity edema is stable. Denies fever, chills, cough, or sick contacts. Reports chronic sinus congestion. Offers no other concerns/complaints at this time. Allergies Allergy/AdvReac Type Severity Reaction Status Date / Time atenolol Allergy Unknown Verified 11/25/18 13:49 candesartan [From Atacand] Allergy Unknown Verified 11/25/18 13:49 Home Medications Home Medications Medication Instructions Recorded Confirmed Type albuterol sulfate 1 inh INHALATION QID PRN 06/04/18 11/25/18 History aspirin 81 mg PO QAM 06/04/18 11/25/18 History atorvastatin 80 mg PO QAM 06/04/18 11/25/18 History carvedilol 25 mg PO BID 06/04/18 11/25/18 History fenofibrate nanocrystallized 48 mg PO QPM 06/04/18 11/25/18 History furosemide 40 mg PO QAM 06/04/18 11/25/18 History glipizide 5 mg PO DAILY 06/04/18 11/25/18 History isosorbide mononitrate 60 mg PO QAM 06/04/18 11/25/18 History nitroglycerin [Nitrostat] 1 dose SUBLINGUAL UD PRN 06/04/18 11/25/18 History prednisone 10 mg PO DAILY 06/04/18 11/25/18 History terazosin 2 mg PO DAILY 06/04/18 11/25/18 History Centrum 1 tab PO DAILY 09/03/18 11/25/18 History Tradjenta 5 mg PO DAILY 09/03/18 11/25/18 History coenzyme Q10 200 mg PO DAILY 09/03/18 11/25/18 History apixaban [Eliquis] 2.5 mg PO BID 11/25/18 11/25/18 History sod phos di, mono-K phos mono 1 tab PO TID 11/25/18 11/25/18 History [Phospha 250 Neutral] Patient History Medical History CAD (coronary artery disease) (Chronic) 2011 - MARY to LAD BPH (benign prostatic hyperplasia) (Chronic) 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 RAMÍREZ Osteoarthritis (Chronic) Chronic back pain (Chronic) Scoliosis (Chronic) Surgical History History of heart artery stent (Chronic) History of tooth extraction (Chronic) History of cataract surgery (Chronic) RIGHT Family History Mother Coronary heart disease, Onset Age: 63 of [place] CHF (congestive heart failure) Myocardial infarction Father CHF (congestive heart failure) Pneumonia Sister Coronary heart disease History of CABG Rheumatic heart disease Social History Preferred Language: [place] Communication Ability: Effective Energy Trader Required: No Beliefs That Will Affect Care: None marital status: / Current Living Situation: Significant Other Other Information That Helps Us Care for You: No Feels Safe at Home: Yes Safety Concerns: Feels Safe At This Time Smoking Status: Never smoker Second Hand Exposure: Yes ( A CHILD) ; Hx Alcohol Use: No Hx Substance Use: No Review of Systems Review of Systems: All systems reviewed & are unremarkable except as noted in HPI & below Physical Exam Physical Exam: General: NAD, AAO x3, well nourished. Overweight. HEENT: Normocephalic. Atraumatic. Conjunctiva pink, no scleral icterus. Neck: No carotid bruits, the carotid upstrokes are brisk. No JVD. No HJR Heart: Regular normal S-1 and S-2 no S-3 or S-4 gallop. No murmurs or rub appreciated. PMI is not displaced. No RV heave. Lungs: Clear bilateral without rales , rhonchi, or wheeze. Abdomen: Normal bowel sounds. Soft. Nontender. No masses or organomegaly. No abdominal bruits. Extremities: No clubbing, cyanosis, or edema. Pulses: radial=2/4, Dorsalis pedis =2/4, posterior tibial=2/4. Neuro: Cranial nerves grossly intact. No focal motor deficit. Results & Data Vital Signs (Past 12 Hours) Vital Signs Temp Pulse Pulse Resp BP BP Pulse Ox 11/25/18 15:28 36.5 C 79 18 121/84 92 11/25/18 14:40 127 H 22 95 11/25/18 14:30 122 H 23 113/72 95 11/25/18 14:20 115 H 22 95 11/25/18 14:10 100 H 19 96 11/25/18 14:01 109 H 18 129/81 95 11/25/18 14:00 113 H 29 H 94 11/25/18 13:50 106 H 21 92 11/25/18 13:40 109 H 19 96 11/25/18 13:30 119 H 24 87/62 L 95 11/25/18 13:21 112 H 105/66 11/25/18 13:20 111 H 23 96 11/25/18 13:13 108 H 17 105/66 11/25/18 13:10 121 H 14 93 11/25/18 13:00 110 H 8 L 91/71 L 96 11/25/18 12:50 103 H 17 95 11/25/18 12:43 98 H 17 120/65 98 11/25/18 12:40 96 11/25/18 12:37 97 11/25/18 12:20 109 H 19 93 11/25/18 12:10 98 H 16 94 11/25/18 12:00 115 H 13 116/54 L 94 11/25/18 11:57 116 H 119/72 11/25/18 11:50 108 H 18 96 11/25/18 11:40 109 H 23 97 11/25/18 11:31 105 H 17 119/72 97 11/25/18 11:30 110 H 24 99 11/25/18 11:20 110 H 15 97 11/25/18 11:15 121 H 19 113/66 97 11/25/18 11:11 113 H 17 96 11/25/18 11:10 119 H 13 95 11/25/18 11:07 152 H 15 94 11/25/18 11:04 36.9 C 107 H 16 93/57 L 96 11/25/18 11:02 124 H 16 93/57 L Laboratory Results Laboratory Results - last 24 hr 11/25/18 11/25/18 11/25/18 11:10 11:10 11:10 WBC 13.15 H RBC 4.77 Hgb 14.3 Hct 43.0 MCV 90.1 MCH 30.0 MCHC 33.3 RDW Std Deviation 50.4 H RDW Coeff of [place] 15.2 H Plt Count 161 MPV 10.5 H Immature Gran % (Auto) 1.6 Neut % (Auto) 76.2 Lymph % (Auto) 12.8 [place] % (Auto) 8.5 Eos % (Auto) 0.8 Baso % (Auto) 0.1 Immature Gran # (Auto) 0.21 H Neut # (Auto) 10.02 H Lymph # (Auto) 1.68 [place] # (Auto) 1.12 H Eos # (Auto) 0.11 Baso # (Auto) 0.01 PT 10.8 INR 1.1 APTT 24.4 PTT Ratio 0.9 Sodium 143 Potassium 3.9 Chloride 108 H Carbon Dioxide 28 Anion Gap 7.0 BUN 24 H Creatinine 1.34 Est Cr Clr Drug Dosing 45.5 Est GFR ( Amer) 56.0 Est GFR (Non-Af Amer) 48.3 BUN/Creatinine Ratio 18.2 Glucose 201 H Calcium 8.4 L Total Bilirubin 0.4 AST 30 ALT 52 Alkaline Phosphatase 41 L Troponin I 0.072 H* Total Protein 5.8 L Albumin 2.7 L Globulin 3.1 Albumin/Globulin Ratio 0.9
[2018-11-25 17:44] LABS: Phosphorus 3.6 mg/dl (2.5-4.9); Troponin I 0.063 ng/ml (0-0.045)
[2018-11-25] MEDS: INSULIN ASPART 100 UNITS/ML 3 ML PEN SC SCH ×2 (17:44→20:19)
[2018-11-25] MEDS: POT PHOSPHATE MONOBASIC W/ SOD TAB PO SCH (20:12)
[2018-11-25] MEDS: CARVEDILOL 12.5 MG TAB PO SCH (20:12)
[2018-11-25] MEDS: FENOFIBRATE NANOCRYSTALLIZED 48 MG TABLET PO SCH (20:12)
[2018-11-25] MEDS: ISOSORBIDE MONO EXTENDED REL 60 MG TABCR PO SCH (20:12)
[2018-11-25] MEDS: APIXABAN 2.5 MG TAB PO SCH (20:12)
[2018-11-26] MEDS: APIXABAN 2.5 MG TAB PO SCH ×2 (07:43→20:29)
[2018-11-26] MEDS: ATORVASTATIN 40 MG TAB PO SCH (07:43)
[2018-11-26] MEDS: POT PHOSPHATE MONOBASIC W/ SOD TAB PO SCH ×3 (07:43→20:29)
[2018-11-26] MEDS: ASPIRIN 81 MG ECTAB PO SCH (07:43)
[2018-11-26] MEDS: SOTALOL HCL 80 MG TAB PO SCH ×2 (07:43→20:29)
[2018-11-26] MEDS: CEROVITE ADV FORMULA TAB PO SCH (07:43)
[2018-11-26] MEDS: CARVEDILOL 12.5 MG TAB PO SCH ×2 (07:44→20:29)
[2018-11-26] MEDS: INSULIN ASPART 100 UNITS/ML 3 ML PEN SC SCH ×4 (07:48→20:32)
[2018-11-26] MEDS ORDERED: Nursing to Pharmacy Communication ONE (07:53)
[2018-11-26 08:09] LABS: Hematocrit (blood only) 38.9 % (42-52); Hemoglobin 12.6 g/dL (14.0-18.0); Mean Corpuscular Hemoglobin 29.2 pg (25-34); Mean Corpuscular Hgb Conc 32.4 g/dL (32-36); Mean Platelet Volume 10.5 fL (7.4-10.4); Platelet Count 151 K/uL (130-400); RDW Coefficient of Variation 15.2 % (11.5-14.5); RDW Standard Deviation 50.3 fL (36.4-46.3); Red Blood Count 4.32 M/uL (4.7-6.1); White Blood Count 11.39 K/uL (4.8-10.8)
[2018-11-26 08:26] LABS: BUN Creatinine Ratio 19.4 (10-20); Calcium 8.4 mg/dl (8.5-10.1); Est GFR (Non-African American) 47.4; Potassium 3.5 mmol/L (3.5-5.1)
[2018-11-26] MEDS ORDERED: SOTALOL HCL 80 MG TAB PO SCH (09:00)
[2018-11-26] MEDS ORDERED: predniSONE 10 MG TABLET PO SCH (09:00)
[2018-11-26] MEDS ORDERED: NON-FORMULARY MEDICATION (Coenzyme Q10 200 MG) PO SCH (09:00)
[2018-11-26] MEDS ORDERED: POTASSIUM CHLORIDE 20 MEQ TABCR PO STA (09:16)
--- NOTE | 2018-11-26 09:25 | Hospitalist Progress Note ---
Date of Service November 26, 2018 Assessment & Plan (1) Atrial fibrillation with RVR: -patient presenting from home with reports of chest tightness that awoke him out of sleep around 3am; took 1 SL nitro at home along with routine cardiac meds and had resolution of symptoms by the time he arrived to the ED -in the ED, found to be in afib with RVR, HR in the 120s -received metoprolol 5mg IV x 2 doses with some improvement in HR; BPs intermittently running borderline low -patient anticoagulated on Eliquis, will continue -Echo on 08/2018 - EF 60-65%, grade 1 diastolic dysfunction -Appreciate cardiology input and recommendation -Patient has had a spontaneous reversion to sinus rhythm -Has been getting sotalol -We will monitor electrolytes and cardiac rhythm (2) Chronic diastolic CHF (congestive heart failure): -may have some mild volume overload on CXR - likely from afib with RVR -due to borderline low BPs, will hold on diuresing for now -patient does not examine to be significantly volume overloaded -Denies any symptoms of heart failure or fluid overload (3) Elevated troponin: (4) CAD (coronary artery disease): -trop mildly elevated 0.072; likely demand ischemia from aib with RVR -continue to cycle cardiac enzymes -no acute ST changes on EKG -continue aspirin, statin, nitrate; hold home dose of beta-rm for now until cardiology makes medication recommendations as above -No chest pain and/or palpitation (5) Diabetes mellitus, type 2: -HgbA1c 6.6 09/2018 -Hold oral agents and utilize NovoLog per protocol hospitalized (6) Chronic renal disease, stage III: - baseline creat ~ 1.2-1.4 - creat noted to be 1.3 today - continue to monitor, avoid nephrotoxic agents when able -Eliquis dose has been adjusted (7) BPH (benign prostatic hyperplasia): -Continue terazosin (8) DVT prophylaxis: -Anticoagulated on Eliquis Subjective 11/26 The patient was seen and examined in telemetry unit He was admitted with the Kristine walters with RVR with the associated symptoms of palpitation, shortness of breath and chest pressure He has been feeling a lot better since admission and denies to have any symptoms Except shortness of breath on exertion Review of Systems Review of Systems: All systems reviewed and are unremarkable except as noted below Cardiovascular: no chest pain, no dyspnea at rest and no palpitations Gastrointestinal: no abdominal pain, no nausea and no vomiting Musculoskeletal: No acute arthritis in any of the joints Physical Exam Physical Exam: No acute distress at rest. Lying in bed comfortably Constitutional: well developed and well nourished; no acute distress and not ill appearing Eyes: PERRL, conjunctivae normal, anicteric sclerae ENMT: external ear and nose normal, oropharynx normal Respiratory: normal respiratory effort; no respiratory distress Auscul tation: + diminished lung sounds Cardiovascular: Rate/Rhythm: regular rate and regular rhythm Vessels: norm al peripheral pulses Extremities: + edema (trace edema BLE, right > left, chronic per patient) Gastrointestinal (Abdomen): Inspection/Auscultation: abdomen normal to inspection; abdomen not distended Percussion/Palpation: abdomen soft; abdomen nontender Musculoskeletal: no cyanosis or clubbing, extremities motor strength 5/5 Skin: no rashes, warm and dry Neurologic: PERRL, EOMI, accommodation nl, no face palsy, no dysarthria Psychiatric: A+Ox3, euthymic affect Lymphatic: no cervical or axillary lymphadenopathy Results & Data Vital Signs (Past 12 Hours) Vital Signs Temp Pulse Pulse Resp BP Pulse Ox 11/26/18 08:06 36.8 C 63 19 148/89 H 93 11/26/18 08:00 60 11/26/18 04:00 36.4 C L 63 15 145/80 H 92 11/25/18 23:53 36.6 C 62 16 143/69 H 94 Laboratory Results Short CBC 11/25/18 11/26/18 Range/Units 11:10 07:42 WBC 13.15 H 11.39 H (4.8-10.8) K/uL Hgb 14.3 12.6 L (14.0-18.0) g/dL Hct 43.0 38.9 L (42-52) % Plt Count 161 151 (130-400) K/uL BMP 11/25/18 11/26/18 11:10 07:42 Sodium 143 144 Potassium 3.9 3.5 Chloride 108 H 108 H Carbon Dioxide 28 30 BUN 24 H 26 H Creatinine 1.34 1.36 Glucose 201 H 95 Calcium 8.4 L 8.4 L Cardiac Enzymes 11/25/18 11/25/18 11/25/18 Range/Units 11:10 16:50 23:10 Troponin I 0.072 H* 0.063 H* 0.064 H* (0-0.045) ng/ml Liver Function 11/25/18 Range/Units 11:10 Total Bilirubin 0.4 (0.2-1) mg/dl AST 30 (15-37) U/L ALT 52 (12-78) U/L Alkaline Phosphatase 41 L (45-117) U/L Albumin 2.7 L (3.4-5.0) gm/dl Medications Administered Current Inpatient Medications Acetaminophen (Tylenol) 650 mg PO Q4H PRN PRN Reason: Pain or Fever Stop: 12/25/18 15:26 Apixaban (Eliquis) 2.5 mg PO BID [facility] Stop: 12/25/18 20:59 Last Admin: 11/26/18 07:43 Dose: 2.5 mg Documented by: Aspirin (Ecotrin Ectab) 81 mg PO QAM [facility] Stop: 12/26/18 08:59 Last Admin: 11/26/18 07:43 Dose: 81 mg Documented by: Atorvastatin Calcium (Lipitor) 80 mg PO QAM [facility] Stop: 12/26/18 08:59 Last Admin: 11/26/18 07:43 Dose: 80 mg Documented by: Carvedilol (Coreg) 12.5 mg PO BID [facility] Stop: 12/25/18 20:59 Last Admin: 11/26/18 07:44 Dose: 12.5 mg Documented by: Dextrose (Dextrose 50%) 25 - 50 ml IV UD PRN; Protocol PRN Reason: Hypoglycemia Protocol Stop: 12/25/18 15:26 Fenofibrate (Fenofibrate) 48 mg PO QPM [facility] Stop: 12/25/18 20:59 Last Admin: 11/25/18 20:12 Dose: 48 mg Documented by: Glucagon (Glucagen) 1 mg SQ UD PRN; Protocol PRN Reason: Hypoglycemia Protocol Stop: 12/25/18 15:26 Glucose (Glucose 40%) 15 - 30 gm PO UD PRN; Protocol PRN Reason: Hypoglycemia Protocol Stop: 12/25/18 15:26 Glucose (Dex4 Glucose) 4 - 8 tabs PO UD PRN; Protocol PRN Reason: Hypoglycemia Protocol Stop: 12/25/18 15:26 Insulin Aspart (Novolog Flexpen) 0 units SC ACHS [facility] Stop: 12/25/18 16:29 Last Admin: 11/26/18 07:48 Dose: Not Given Documented by: Isosorbide Mononitrate (Imdur Extended Rel) 60 mg PO QPM [facility] Stop: 12/25/18 20:59 Last Admin: 11/25/18 20:12 Dose: 60 mg Documented by: Miscellaneous (Carbohydrates For Hypoglycemia) 15 - 30 gm PO UD PRN PRN Reason: Hypoglycemia Treatment Stop: 12/25/18 15:26 Multivitamins/Minerals (Multivitamin W/ Minerals Tab) 1 tab PO DAILY [facility] Stop: 12/26/18 08:59 Last Admin: 11/26/18 07:43 Dose: 1 tab Documented by: Potassium Phosphate (Phospha 250 Neutral [id number] Mg) 1 tab PO TID [facility] Stop: 12/25/18 20:59 Last Admin: 11/26/18 07:43 Dose: 1 tab Documented by: Prednisone (Prednisone) 5 mg PO BID [facility] Stop: 12/26/18 20:59 Sotalol HCl (Betapace) 40 mg PO BID [facility] Stop: 12/26/18 08:59 Last Admin: 11/26/18 07:43 Dose: 40 mg Documented by: Terazosin HCl (Hytrin) 2 mg PO DAILY [facility] Stop: 12/26/18 08:59
--- NOTE | 2018-11-26 13:11 | Cardiology Progress Note ---
Date of Service November 26, 2018 Assessment & Plan (1) Atrial fibrillation, rapid: (2) Chronic diastolic CHF (congestive heart failure): (3) CAD (coronary artery disease): (4) Elevated troponin I level: Recommendations: Continue sotalol loading, 40 mg twice daily. Repeat ECG in a.m. Continue renally dose Eliquis in addition to other cardiovascular medications as previously ordered. Carvedilol reduced to 12.5 mg twice daily due to hypotension in addition of sotalol for rhythm control. Continue to monitor telemetry during hospitalization. Terazosin restarted. I will continue to follow patient during hospitalization. Tentative plan for discharge after sotalol loading complete. Subjective Patient seen and examined the bedside. Remains in sinus rhythm on telemetry. Borderline QT prolongation per ECG this a.m. however, repeat ECG demonstrates QTC 475ms. Denies recurrent palpitations or chest discomfort. Ambulating without symptoms. Tolerating diet and medications. Offers no concerns/complaints at this time. Review of Systems Review of Systems: All systems reviewed & are unremarkable except as noted in HPI & below Physical Exam Physical Exam: General: NAD, AAO x3, well nourished. Overweight. HEENT: Normocephalic. Atraumatic. Conjunctiva pink, no scleral icterus. Neck: No carotid bruits, the carotid upstrokes are brisk. No JVD. No HJR Heart: Regular normal S-1 and S-2 no S-3 or S-4 gallop. No murmurs or rub appreciated. PMI is not displaced. No RV heave. Lungs: Clear bilateral without rales , rhonchi, or wheeze. Abdomen: Normal bowel sounds. Soft. Nontender. No masses or organomegaly. No abdominal bruits. Extremities: No clubbing, cyanosis, or edema. Pulses: radial=2/4, Dorsalis pedis =2/4, posterior tibial=2/4. Neuro: Cranial nerves grossly intact. No focal motor deficit. Results & Data Vital Signs (Past 12 Hours) Vital Signs Temp Pulse Pulse Resp BP Pulse Ox 11/26/18 11:34 36.5 C 65 19 120/73 95 11/26/18 08:06 36.8 C 63 19 148/89 H 93 11/26/18 08:00 60 11/26/18 04:00 36.4 C L 63 15 145/80 H 92
[2018-11-26] MEDS: ISOSORBIDE MONO EXTENDED REL 60 MG TABCR PO SCH (20:29)
[2018-11-26] MEDS: predniSONE 5 MG TAB PO SCH (20:29)
[2018-11-26] MEDS: FENOFIBRATE NANOCRYSTALLIZED 48 MG TABLET PO SCH (20:30)
[2018-11-27] MEDS: ATORVASTATIN 40 MG TAB PO SCH (08:23)
[2018-11-27] MEDS: CARVEDILOL 12.5 MG TAB PO SCH ×2 (08:24→21:19)
[2018-11-27] MEDS: ASPIRIN 81 MG ECTAB PO SCH (08:24)
[2018-11-27] MEDS: CEROVITE ADV FORMULA TAB PO SCH (08:24)
[2018-11-27] MEDS: APIXABAN 2.5 MG TAB PO SCH ×2 (08:24→21:19)
[2018-11-27] MEDS: SOTALOL HCL 80 MG TAB PO SCH ×2 (08:25→21:18)
[2018-11-27] MEDS: POT PHOSPHATE MONOBASIC W/ SOD TAB PO SCH ×3 (08:25→21:20)
[2018-11-27] MEDS: TERAZOSIN HCL 1 MG CAP PO SCH (08:26)
[2018-11-27] MEDS: predniSONE 5 MG TAB PO SCH ×2 (08:26→21:21)
[2018-11-27] MEDS: INSULIN ASPART 100 UNITS/ML 3 ML PEN SC SCH ×4 (08:28→21:23)
[2018-11-27 08:51] LABS: BUN Creatinine Ratio 21.3 (10-20); Calcium 8.4 mg/dl (8.5-10.1); Creatinine Clr Calc Pharmacy 50.3 ml/min; Est GFR (African American) 64.6; Est GFR (Non-African American) 55.8; Magnesium 2.2 mg/dl (1.8-2.4); Potassium 3.9 mmol/L (3.5-5.1)
--- NOTE | 2018-11-27 10:54 | Cardiology Progress Note ---
Date of Service November 27, 2018 Assessment & Plan (1) Atrial fibrillation, rapid: (2) Chronic diastolic CHF (congestive heart failure): (3) CAD (coronary artery disease): (4) Elevated troponin I level: Recommendations: Continue sotalol loading, 40 mg twice daily. Repeat ECG in a.m. Continue renally dosed Eliquis in addition to other cardiovascular medications as previously ordered. Carvedilol reduced to 12.5 mg twice daily due to hypotension in addition of sotalol for rhythm control. Continue to monitor telemetry during hospitalization. Restart furosemide 40 mg daily. Repeat BMP in a.m. Subjective Patient seen and examined at the bedside. Denies chest pain or unusual shortness of breath. Mild pedal edema unchanged. Blood pressure elevated this morning and remains labile during hospitalization. No headaches, focal w eakness, slurred speech, visual changes. Denies orthopnea, PND, or claudication. Remains in sinus rhythm on telemetry. Repeat ECG this a.m. demonstrates normal QTc. Review of Systems Review of Systems: All systems reviewed & are unremarkable except as noted in HPI & below Physical Exam Physical Exam: General: NAD, AAO x3, well nourished. Overweight. HEENT: Normocephalic. Atraumatic. Conjunctiva pink, no scleral icterus. Neck: No carotid bruits, the carotid upstrokes are brisk. No JVD. No HJR Heart: Regular normal S-1 and S-2 no S-3 or S-4 gallop. No murmurs or rub appreciated. PMI is not displaced. No RV heave. Lungs: Clear bilateral without rales , rhonchi, or wheeze. Abdomen: Normal bowel sounds. Soft. Nontender. No masses or organomegaly. No abdominal bruits. Extremities: No clubbing, or cyanosis. Trace to mild bilateral pedal edema. Pulses: radial=2/4, Dorsalis pedis =2/4, posterior tibial=2/4. Neuro: Cranial nerves grossly intact. No focal motor deficit. Results & Data Vital Signs (Past 12 Hours) Vital Signs Temp Pulse Resp BP Pulse Ox 11/27/18 07:42 36.2 C L 59 L 19 172/88 H 97 11/27/18 04:00 36.5 C 69 16 160/88 H 94 11/27/18 00:00 36.5 C 71 16 134/74 93
[2018-11-27] MEDS: FUROSEMIDE 40 MG TAB PO SCH (11:32)
--- NOTE | 2018-11-27 15:27 | Hospitalist Progress Note ---
Date of Service November 27, 2018 Assessment & Plan (1) Atrial fibrillation with RVR: -patient presenting from home with reports of chest tightness that awoke him out of sleep around 3am; took 1 SL nitro at home along with routine cardiac meds and had resolution of symptoms by the time he arrived to the ED -in the ED, found to be in afib with RVR, HR in the 120s -received metoprolol 5mg IV x 2 doses with some improvement in HR; BPs intermittently running borderline low -patient anticoagulated on Eliquis, will continue -Echo on 08/2018 - EF 60-65%, grade 1 diastolic dysfunction -Appreciate cardiology input and recommendation -Patient has had a spontaneous reversion to sinus rhythm -Has been getting sotalol -We will monitor electrolytes and cardiac rhythm -Tolerating sotalol well, electrolytes remain unremarkable (2) Chronic diastolic CHF (congestive heart failure): -may have some mild volume overload on CXR - likely from afib with RVR -due to borderline low BPs, will hold on diuresing for now -patient does not examine to be significantly volume overloaded -Denies any symptoms of heart failure or fluid overload -Furosemide 40 mg daily has been added and doses of carvedilol has been decreased to 12.5 mg twice daily (3) Elevated troponin: (4) CAD (coronary artery disease): -trop mildly elevated 0.072; likely demand ischemia from aib with RVR -continue to cycle cardiac enzymes -no acute ST changes on EKG -continue aspirin, statin, nitrate; hold home dose of beta-rm for now until cardiology makes medication recommendations as above -No chest pain and/or palpitation (5) Diabetes mellitus, type 2: -HgbA1c 6.6 09/2018 -Hold oral agents and utilize NovoLog per protocol hospitalized (6) Chronic renal disease, stage III: - baseline creat ~ 1.2-1.4 - creat noted to be 1.3 today - continue to monitor, avoid nephrotoxic agents when able -Eliquis dose has been adjusted (7) BPH (benign prostatic hyperplasia): -Continue terazosin (8) DVT prophylaxis: -Anticoagulated on Eliquis Subjective 11/26 The patient was seen and examined in telemetry unit He was admitted with the Kristine walters with RVR with the associated symptoms of palpitation, shortness of breath and chest pressure He has been feeling a lot better since admission and denies to have any symptoms Except shortness of breath on exertion 11/27 The patient was seen and examined in telemetry unit He remains stable with regular sinus rhythm without any tachyarrhythmias Denies any symptoms Review of Systems Review of Systems: All systems reviewed and are unremarkable except as noted below Musculoskeletal: No acute arthritis in any of the joints Physical Exam Physical Exam: Sitting at the age of the bed without any distress Constitutional: WD/WN, vitals as above well developed and well nourished; no acute distress and not ill appearing Eyes: PERRL, conjunctivae normal, anicteric sclerae ENMT: external ear and nose normal, oropharynx normal Respiratory: normal respiratory effort; no respiratory distress Ausc ultation: + diminished lung sounds Cardiovascular: Rate/Rhythm: regular rate and regular rhythm Vessels: no rmal peripheral pulses Extremities: + edema (trace edema BLE, right > left, chronic per patient) Gastrointestinal (Abdomen): normal bowel sounds, soft, nontender, no hepatosplenomegaly Inspection/Auscultation: abdomen normal to inspection; abdomen not distended Percussion/Palpation: abdomen soft; abdomen nontender Musculoskeletal: no cyanosis or clubbing, extremities motor strength 5/5 Skin: no rashes, warm and dry Neurologic: PERRL, EOMI, accommodation nl, no face palsy, no dysarthria Psychiatric: A+Ox3, euthymic affect Lymphatic: no cervical or axillary lymphadenopathy Results & Data Vital Signs (Past 12 Hours) Vital Signs Temp Pulse Resp BP Pulse Ox 11/27/18 11:38 36.7 C 60 19 137/80 94 11/27/18 07:42 36.2 C L 59 L 19 172/88 H 97 11/27/18 04:00 36.5 C 69 16 160/88 H 94 Laboratory Results BMP 11/27/18 07:12 Sodium 142 Potassium 3.9 Chloride 110 H Carbon Dioxide 26 BUN 25 H Creatinine 1.19 Glucose 107 H Calcium 8.4 L Medications Administered Current Inpatient Medications Acetaminophen (Tylenol) 650 mg PO Q4H PRN PRN Reason: Pain or Fever Stop: 12/25/18 15:26 Apixaban (Eliquis) 2.5 mg PO BID [facility] Stop: 12/25/18 20:59 Last Admin: 11/27/18 08:24 Dose: 2.5 mg Documented by: Aspirin (Ecotrin Ectab) 81 mg PO QAM [facility] Stop: 12/26/18 08:59 Last Admin: 11/27/18 08:24 Dose: 81 mg Documented by: Atorvastatin Calcium (Lipitor) 80 mg PO QAM [facility] Stop: 12/26/18 08:59 Last Admin: 11/27/18 08:23 Dose: 80 mg Documented by: Carvedilol (Coreg) 12.5 mg PO BID [facility] Stop: 12/25/18 20:59 Last Admin: 11/27/18 08:24 Dose: 12.5 mg Documented by: Dextrose (Dextrose 50%) 25 - 50 ml IV UD PRN; Protocol PRN Reason: Hypoglycemia Protocol Stop: 12/25/18 15:26 Fenofibrate (Fenofibrate) 48 mg PO QPM [facility] Stop: 12/25/18 20:59 Last Admin: 11/26/18 20:30 Dose: 48 mg Documented by: Furosemide (Lasix) 40 mg PO QAM [facility] Stop: 12/27/18 11:14 Last Admin: 11/27/18 11:32 Dose: 40 mg Documented by: Glucagon (Glucagen) 1 mg SQ UD PRN; Protocol PRN Reason: Hypoglycemia Protocol Stop: 12/25/18 15:26 Glucose (Glucose 40%) 15 - 30 gm PO UD PRN; Protocol PRN Reason: Hypoglycemia Protocol Stop: 12/25/18 15:26 Glucose (Dex4 Glucose) 4 - 8 tabs PO UD PRN; Protocol PRN Reason: Hypoglycemia Protocol Stop: 12/25/18 15:26 Insulin Aspart (Novolog Flexpen) 0 units SC ACHS [facility] Stop: 12/25/18 16:29 Last Admin: 11/27/18 12:02 Dose: Not Given Documented by: Isosorbide Mononitrate (Imdur Extended Rel) 60 mg PO QPM [facility] Stop: 12/25/18 20:59 Last Admin: 11/26/18 20:29 Dose: 60 mg Documented by: Miscellaneous (Carbohydrates For Hypoglycemia) 15 - 30 gm PO UD PRN PRN Reason: Hypoglycemia Treatment Stop: 12/25/18 15:26 Multivitamins/Minerals (Multivitamin W/ Minerals Tab) 1 tab PO DAILY [facility] Stop: 12/26/18 08:59 Last Admin: 11/27/18 08:24 Dose: 1 tab Documented by: Potassium Phosphate (Phospha 250 Neutral 155-852-130 Mg) 1 tab PO TID [facility] Stop: 12/25/18 20:59 Last Admin: 11/27/18 12:53 Dose: 1 tab Documented by: Prednisone (Prednisone) 5 mg PO BID [facility] Stop: 12/26/18 20:59 Last Admin: 11/27/18 08:26 Dose: 5 mg Documented by: Sotalol HCl (Betapace) 40 mg PO BID [facility] Stop: 12/26/18 08:59 Last Admin: 11/27/18 08:25 Dose: 40 mg Documented by: Terazosin HCl (Hytrin) 2 mg PO DAILY [facility] Stop: 12/26/18 08:59 Last Admin: 11/27/18 08:26 Dose: 2 mg Documented by:
[2018-11-27] MEDS: FENOFIBRATE NANOCRYSTALLIZED 48 MG TABLET PO SCH (21:19)
[2018-11-27] MEDS: ISOSORBIDE MONO EXTENDED REL 60 MG TABCR PO SCH (21:20)
[2018-11-28 07:38] LABS: Basophils # (auto) 0.02 K/uL (0-0.2); Basophils % (auto) 0.2 %; Eosinophils # (auto) 0.08 K/uL (0-0.5); Eosinophils % (auto) 0.8 %; Hematocrit (blood only) 37.9 % (42-52); Hemoglobin 12.3 g/dL (14.0-18.0); Immature Granulocytes # (auto) 0.16 K/uL (0.00-0.02); Immature Granulocytes % (auto) 1.6 %; Lymphocytes % (auto) 14.6 %; Mean Corpuscular Hemoglobin 29.1 pg (25-34); Mean Corpuscular Hgb Conc 32.5 g/dL (32-36); Mean Corpuscular Volume 89.6 fL (80-100); Monocytes # (auto) 1.07 K/uL (0.11-0.59); Monocytes % (auto) 10.4 %; Neutrophils # (auto) 7.42 K/uL (1.4-6.5); Neutrophils % (auto) 72.4 %; Platelet Count 152 K/uL (130-400); RDW Coefficient of Variation 15.3 % (11.5-14.5); RDW Standard Deviation 49.4 fL (36.4-46.3); Red Blood Count 4.23 M/uL (4.7-6.1); White Blood Count 10.25 K/uL (4.8-10.8)
[2018-11-28 07:45] LABS: Calcium 7.9 mg/dl (8.5-10.1); Creatinine Clr Calc Pharmacy 51.5 ml/min; Est GFR (African American) 66.7; Est GFR (Non-African American) 57.5; Magnesium 2.2 mg/dl (1.8-2.4); Phosphorus 3.3 mg/dl (2.5-4.9); Potassium 3.8 mmol/L (3.5-5.1)
[2018-11-28] MEDS: INSULIN ASPART 100 UNITS/ML 3 ML PEN SC SCH ×2 (08:04→12:42)
[2018-11-28] MEDS: predniSONE 5 MG TAB PO SCH (08:07)
[2018-11-28] MEDS: TERAZOSIN HCL 1 MG CAP PO SCH (08:07)
[2018-11-28] MEDS: CEROVITE ADV FORMULA TAB PO SCH (08:07)
[2018-11-28] MEDS: FUROSEMIDE 40 MG TAB PO SCH (08:08)
[2018-11-28] MEDS: CARVEDILOL 12.5 MG TAB PO SCH (08:08)
[2018-11-28] MEDS: POT PHOSPHATE MONOBASIC W/ SOD TAB PO SCH (08:08)
[2018-11-28] MEDS: APIXABAN 2.5 MG TAB PO SCH (08:09)
[2018-11-28] MEDS: ASPIRIN 81 MG ECTAB PO SCH (08:10)
[2018-11-28] MEDS: SOTALOL HCL 80 MG TAB PO SCH (08:10)
[2018-11-28] MEDS: ATORVASTATIN 40 MG TAB PO SCH (08:11)
--- NOTE | 2018-11-28 10:49 | Cardiology Progress Note ---
Date of Service November 28, 2018 Assessment & Plan (1) Atrial fibrillation, rapid: (2) Chronic diastolic CHF (congestive heart failure): (3) CAD (coronary artery disease): (4) Elevated troponin I level: Recommendations: Continue sotalol 40 mg twice daily. Carvedilol reduced to 12.5 mg twice daily during hospitalization. Continue this dose in the outpatient setting, as blood pressure has remained controlled. No further inpatient cardiovascular testing or intervention at this time. Patient may be discharged home. Outpatient cardiology follow-up in 2 weeks. Subjective Patient seen and examined at the bedside. Denies chest pain or unusual shortness of breath. Remains in sinus rhythm on telemetry. Tolerating current medications. No orthopnea, PND, or claudication. Mild pedal edema improved with resumption of furosemide. Review of Systems Review of Systems: All systems reviewed & are unremarkable except as noted in HPI & below Physical Exam Physical Exam: General: NAD, AAO x3, well nourished. Overweight. HEENT: Normocephalic. Atraumatic. Conjunctiva pink, no scleral icterus. Neck: No carotid bruits, the carotid upstrokes are brisk. No JVD. No HJR Heart: Regular normal S-1 and S-2 no S-3 or S-4 gallop. No murmurs or rub appreciated. PMI is not displaced. No RV heave. Lungs: Clear bilateral without rales , rhonchi, or wheeze. Abdomen: Normal bowel sounds. Soft. Nontender. No masses or organomegaly. No abdominal bruits. Extremities: No clubbing, or cyanosis. Trace bilateral pedal edema. Pulses: radial=2/4, Dorsalis pedis =2/4, posterior tibial=2/4. Neuro: Cranial nerves grossly intact. No focal motor deficit. Results & Data Vital Signs (Past 12 Hours) Vital Signs Temp Pulse Pulse Resp BP Pulse Ox 11/28/18 07:45 47 L 11/28/18 07:34 36.5 C 56 L 18 125/79 95 11/28/18 04:00 36.4 C L 60 20 153/92 H 91 11/28/18 00:00 67 11/27/18 23:56 36.5 C 65 18 152/88 H 93 Laboratory Results Laboratory Results - last 24 hr 11/27/18 11/27/18 11/27/18 11:15 16:32 20:23 WBC RBC Hgb Hct MCV MCH MCHC RDW Std Deviation RDW Coeff of [place] Plt Count MPV Immature Gran % (Auto) Neut % (Auto) Lymph % (Auto) [place] % (Auto) Eos % (Auto) Baso % (Auto) Immature Gran # (Auto) Neut # (Auto) Lymph # (Auto) [place] # (Auto) Eos # (Auto) Baso # (Auto) Sodium Potassium Chloride Carbon Dioxide Anion Gap BUN Creatinine Est Cr Clr Drug Dosing Est GFR ( Amer) Est GFR (Non-Af Amer) BUN/Creatinine Ratio Glucose POC Glucose 81 155 H 131 H Calcium Phosphorus Magnesium 11/28/18 11/28/18 11/28/18 06:12 06:12 07:26 WBC 10.25 RBC 4.23 L Hgb 12.3 L Hct 37.9 L MCV 89.6 MCH 29.1 MCHC 32.5 RDW Std Deviation 49.4 H RDW Coeff of [place] 15.3 H Plt Count 152 MPV 11.0 H Immature Gran % (Auto) 1.6 Neut % (Auto) 72.4 Lymph % (Auto) 14.6 [place] % (Auto) 10.4 Eos % (Auto) 0.8 Baso % (Auto) 0.2 Immature Gran # (Auto) 0.16 H Neut # (Auto) 7.42 H Lymph # (Auto) 1.50 [place] # (Auto) 1.07 H Eos # (Auto) 0.08 Baso # (Auto) 0.02 Sodium 143 Potassium 3.8 Chloride 111 H Carbon Dioxide 27 Anion Gap 5.0 BUN 27 H Creatinine 1.16 Est Cr Clr Drug Dosing 51.5 Est GFR ( Amer) 66.7 Est GFR (Non-Af Amer) 57.5 BUN/Creatinine Ratio 23.0 H Glucose 110 H POC Glucose 107 H Calcium 7.9 L Phosphorus 3.3 Magnesium 2.2
--- NOTE | 2018-11-28 11:57 | Hospitalist Progress Note ---
Date of Service November 28, 2018 Assessment & Plan (1) Atrial fibrillation with RVR: -patient presenting from home with reports of chest tightness that awoke him out of sleep around 3am; took 1 SL nitro at home along with routine cardiac meds and had resolution of symptoms by the time he arrived to the ED -in the ED, found to be in afib with RVR, HR in the 120s -received metoprolol 5mg IV x 2 doses with some improvement in HR; BPs intermittently running borderline low -patient anticoagulated on Eliquis, will continue -Echo on 08/2018 - EF 60-65%, grade 1 diastolic dysfunction -Appreciate cardiology input and recommendation -Patient has had a spontaneous reversion to sinus rhythm -Has been getting sotalol -We will monitor electrolytes and cardiac rhythm -Tolerating sotalol well, electrolytes remain unremarkable -Remains stable without any cardiac symptoms -No arrhythmias on monitor -We will discharge home this afternoon (2) Chronic diastolic CHF (congestive heart failure): -may have some mild volume overload on CXR - likely from afib with RVR -due to borderline low BPs, will hold on diuresing for now -patient does not examine to be significantly volume overloaded -Denies any symptoms of heart failure or fluid overload -Furosemide 40 mg daily has been added and doses of carvedilol has been decreased to 12.5 mg twice daily- -no CHF and/or volume overload (3) Elevated troponin: (4) CAD (coronary artery disease): -trop mildly elevated 0.072; likely demand ischemia from aib with RVR -continue to cycle cardiac enzymes -no acute ST changes on EKG -continue aspirin, statin, nitrate; hold home dose of beta-rm for now until cardiology makes medication recommendations as above -No chest pain and/or palpitation (5) Diabetes mellitus, type 2: -HgbA1c 6.6 09/2018 -Hold oral agents and utilize NovoLog per protocol hospitalized (6) Chronic renal disease, stage III: - baseline creat ~ 1.2-1.4 - creat noted to be 1.3 today - continue to monitor, avoid nephrotoxic agents when able -Eliquis dose has been adjusted (7) BPH (benign prostatic hyperplasia): -Continue terazosin (8) DVT prophylaxis: -Anticoagulated on Eliquis Will be discharged home this afternoon Subjective 11/26 The patient was seen and examined in telemetry unit He was admitted with the Kristine walters with RVR with the associated symptoms of palpitation, shortness of breath and chest pressure He has been feeling a lot better since admission and denies to have any symptoms Except shortness of breath on exertion 11/27 The patient was seen and examined in telemetry unit He remains stable with regular sinus rhythm without any tachyarrhythmias Denies any symptoms 11/28 The patient was seen and examined in telemetry unit He has been stable following admission Remains in sinus rhythm without any significant symptoms He has been ambulating without any problem Review of Systems Review of Systems: All systems reviewed and are unremarkable except as noted below Musculoskeletal: No acute arthritis in any of the joints Physical Exam Physical Exam: No apparent distress at rest Constitutional: well developed and well nourished; no acute distress and not ill appearing Eyes: PERRL, conjunctivae normal, anicteric sclerae ENMT: external ear and nose normal, oropharynx normal Respiratory: normal respiratory effort; no respiratory distress Auscultation: + diminished lung sounds; no crackles and no wheezes Cardiovascular: Rate/Rhythm: regular rate and regular rhythm Vessels: normal peripheral pulses Extremities: + edema (trace edema BLE, right > left, chronic per patient) Gastrointestinal (Abdomen): Inspection/Auscultation: abdomen normal to inspection and normal bowel sounds; abdomen not distended Percussion/Palpation: abdomen soft; abdomen nontender Musculoskeletal: no cyanosis or clubbing, extremities motor strength 5/5 Skin: no rashes, warm and dry Neurologic: PERRL, EOMI, accommodation nl, no face palsy, no dysarthria Psychiatric: A+Ox3, euthymic affect Lymphatic: no cervical or axillary lymphadenopathy Results & Data Vital Signs (Past 12 Hours) Vital Signs Temp Pulse Pulse Resp BP Pulse Ox 11/28/18 10:56 36.3 C L 73 18 126/76 95 11/28/18 07:45 47 L 11/28/18 07:34 36.5 C 56 L 18 125/79 95 11/28/18 04:00 36.4 C L 60 20 153/92 H 91 11/28/18 00:00 67 11/27/18 23:56 36.5 C 65 18 152/88 H 93 Laboratory Results Short CBC 11/28/18 Range/Units 06:12 WBC 10.25 (4.8-10.8) K/uL Hgb 12.3 L (14.0-18.0) g/dL Hct 37.9 L (42-52) % Plt Count 152 (130-400) K/uL [facility] 11/28/18 06:12 Sodium 143 Potassium 3.8 Chloride 111 H Carbon Dioxide 27 BUN 27 H Creatinine 1.16 Glucose 110 H Calcium 7.9 L Medications Administered Current Inpatient Medications Acetaminophen (Tylenol) 650 mg PO Q4H PRN PRN Reason: Pain or Fever Stop: 12/25/18 15:26 Apixaban (Eliquis) 2.5 mg PO BID [facility] Stop: 12/25/18 20:59 Last Admin: 11/28/18 08:09 Dose: 2.5 mg Documented by: Aspirin (Ecotrin Ectab) 81 mg PO QAM [facility] Stop: 12/26/18 08:59 Last Admin: 11/28/18 08:10 Dose: 81 mg Documented by: Atorvastatin Calcium (Lipitor) [facility] [place] Stop: 12/26/18 08:59 Last Admin: 11/28/18 08:11 Dose: 80 mg Documented by: Carvedilol (Coreg) 12.5 mg PO BID [facility] Stop: 12/25/18 20:59 Last Admin: 11/28/18 08:08 Dose: 12.5 mg Documented by: Dextrose (Dextrose 50%) 25 - 50 ml IV UD PRN; Protocol PRN Reason: Hypoglycemia Protocol Stop: 12/25/18 15:26 Fenofibrate (Fenofibrate) 48 mg PO QPM [facility] Stop: 12/25/18 20:59 Last Admin: 11/27/18 21:19 Dose: 48 mg Documented by: Furosemide (Lasix) 40 mg PO QAM [facility] Stop: 12/27/18 11:14 Last Admin: 11/28/18 08:08 Dose: 40 mg Documented by: Glucagon (Glucagen) 1 mg SQ UD PRN; Protocol PRN Reason: Hypoglycemia Protocol Stop: 12/25/18 15:26 Glucose (Glucose 40%) 15 - 30 gm PO UD PRN; Protocol PRN Reason: Hypoglycemia Protocol Stop: 12/25/18 15:26 Glucose (Dex4 Glucose) 4 - 8 tabs PO UD PRN; Protocol PRN Reason: Hypoglycemia Protocol Stop: 12/25/18 15:26 Insulin Aspart (Novolog Flexpen) 0 units SC ACHS [facility] Stop: 12/25/18 16:29 Last Admin: 11/28/18 08:04 Dose: 4 units Documented by: Isosorbide Mononitrate (Imdur Extended Rel) 60 mg PO QPM [facility] Stop: 12/25/18 20:59 Last Admin: 11/27/18 21:20 Dose: 60 mg Documented by: Miscellaneous (Carbohydrates For Hypoglycemia) 15 - 30 gm PO UD PRN PRN Reason: Hypoglycemia Treatment Stop: 12/25/18 15:26 Multivitamins/Minerals (Multivitamin W/ Minerals Tab) 1 tab PO DAILY [facility] Stop: 12/26/18 08:59 Last Admin: 11/28/18 08:07 Dose: 1 tab Documented by: Potassium Phosphate (Phospha 250 Neutral 155-852-130 Mg) 1 tab PO TID [facility] Stop: 12/25/18 20:59 Last Admin: 11/28/18 08:08 Dose: 1 tab Documented by: Prednisone (Prednisone) 5 mg PO BID [facility] Stop: 12/26/18 20:59 Last Admin: 11/28/18 08:07 Dose: 5 mg Documented by: Sotalol HCl (Betapace) 40 mg PO BID [facility] Stop: 12/26/18 08:59 Last Admin: 11/28/18 08:10 Dose: 40 mg Documented by: Terazosin HCl (Hytrin) 2 mg PO DAILY [facility] Stop: 12/26/18 08:59 Last Admin: 11/28/18 08:07 Dose: 2 mg Documented by:
--- NOTE | 2018-11-28 17:04 | Discharge Summary ---
Date of Service November 28, 2018 Admission HPI Per Admitting Provider 83 year old male who presents to the ED with chest tightness. Patient recently admitted to [facility] 08/2018 for new onset atrial fibrillation with RVR. Patient spontaneously converted to NSR and was started on Eliquis. His other cardiac meds remained unchanged (carvedilol and isosorbide). Patient reports he was awoken out of sleep around 3am and had a feeling of "fullness" and tightness across his chest. He denies palpitations. Patient reports he took 1 SL nitro and his regular morning meds and subsequently felt better. He then presented to the ED for further evaluation. Patient has chronic exertional shortness of breath which is unchanged from baseline. Also has some chronic lower extremity edema, right > left, which is unchanged from baseline as well. He denies orthopenea. He had some mild lightheadednss and dizziness while ambulating to the bathroom in the ED. Denies syncope or diaphoresis. Reports he otherwise has been feeling well recently. No recent illnesses, fevers, or chills. Denies abdominal pain, nausea, vomiting. No urinary symptoms. In the ED, patient was found to be in afib with RVR, HR in the 120s. Labs show mildly elevated trop 0.072. EKG shows afib with RVR without acute ST changes. Patient was given metoprolol 5mg IV x 2 doses. Admission Exam Per Admitting Provider Constitutional: WD/WN, vitals as above Eyes: PERRL, conjunctivae normal, anicteric sclerae ENMT: external ear and nose normal, oropharynx normal Respiratory: normal respiratory effort; no respiratory distress Auscultation: + diminished lung sounds Cardiovascular: Rate/Rhythm: regular rate and regular rhythm Vessels: normal peripheral pulses Extremities: + edema (trace edema BLE, right > left, chronic per patient) Gastrointestinal (Abdomen): normal bowel sounds, soft, nontender, no hepatosplenomegaly Musculoskeletal: no cyanosis or clubbing, extremities motor strength 5/5 Skin: no rashes, warm and dry Neurologic: PERRL, EOMI, accommodation nl, no face palsy, no dysarthria Psychiatric: A+Ox3, euthymic affect Principal Diagnosis Atrial fibrillation with RVR-reverted to sinus rhythm, chronic diastolic CHF, diabetes type 2 Discharge Exam Constitutional WD/WN, vitals as above well developed and well nourished; no acute distress and not ill appearing Eyes PERRL, conjunctivae normal, anicteric sclerae ENMT external ear and nose normal, oropharynx normal Respiratory normal respiratory effort; no respiratory distress Auscultation: + diminished lung sounds; no crackles and no wheezes Cardiovascular Rate/Rhythm: regular rate and regular rhythm Vessels: normal peripheral pulses Extremities: + edema (trace edema BLE, right > left, chronic per patient) Gastrointestinal (Abdomen) normal bowel sounds, soft, nontender, no hepatosplenomegaly Inspection/Auscultation: abdomen normal to inspection and normal bowel sounds; abdomen not distended Percussion/Palpation: abdomen soft; abdomen nontender Musculoskeletal no cyanosis or clubbing, extremities motor strength 5/5 Skin no rashes, warm and dry Neurologic PERRL, EOMI, accommodation nl, no face palsy, no dysarthria Psychiatric A+Ox3, euthymic affect Lymphatic no cervical or axillary lymphadenopathy Discharge Data Allergies Allergy/AdvReac Type Severity Reaction Status Date / Time atenolol Allergy Unknown Verified 11/25/18 13:49 candesartan [From Atacand] Allergy Unknown Verified 11/25/18 13:49 Consultations 11/25/18 13:25 ED Decision to Admit Stat 11/25/18 15:27 Consult Cardiology Routine Hospital Course (1) Atrial fibrillation with RVR: -patient presenting from home with reports of chest tightness that awoke him out of sleep around 3am; took 1 SL nitro at home along with routine cardiac meds and had resolution of symptoms by the time he arrived to the ED -in the ED, found to be in afib with RVR, HR in the 120s -received metoprolol 5mg IV x 2 doses with some improvement in HR; BPs intermittently running borderline low -patient anticoagulated on Eliquis, will continue -Echo on 08/2018 - EF 60-65%, grade 1 diastolic dysfunction -Appreciate cardiology input and recommendation -Patient has had a spontaneous reversion to sinus rhythm -Has been getting sotalol -We will monitor electrolytes and cardiac rhythm -Tolerating sotalol well, electrolytes remain unremarkable -Remains stable without any cardiac symptoms -No arrhythmias on monitor -We will discharge home this afternoon (2) Chronic diastolic CHF (congestive heart failure): -may have some mild volume overload on CXR - likely from afib with RVR -due to borderline low BPs, will hold on diuresing for now -patient does not examine to be significantly volume overloaded -Denies any symptoms of heart failure or fluid overload -Furosemide 40 mg daily has been added and doses of carvedilol has been decreased to 12.5 mg twice daily- -no CHF and/or volume overload (3) Elevated troponin: (4) CAD (coronary artery disease): -trop mildly elevated 0.072; likely demand ischemia from aib with RVR -continue to cycle cardiac enzymes -no acute ST changes on EKG -continue aspirin, statin, nitrate; hold home dose of beta-rm for now until cardiology makes medication recommendations as above -No chest pain and/or palpitation (5) Diabetes mellitus, type 2: -HgbA1c 6.6 09/2018 -Hold oral agents and utilize NovoLog per protocol hospitalized (6) Chronic renal disease, stage III: - baseline creat ~ 1.2-1.4 - creat noted to be 1.3 today - continue to monitor, avoid nephrotoxic agents when able -Eliquis dose has been adjusted (7) BPH (benign prostatic hyperplasia): -Continue terazosin (8) DVT prophylaxis: -Anticoagulated on Eliquis Will be discharged home this afternoon Total Time Total Time Spent Total Time Spent (In Minutes): 35 minutes Total Time Includes: Examination of the Patient, Discharge Planning, Medication Reconciliation and Communication With Other Providers Discharge Plan Discharge Items Patient Disposition: Home - Self-Care Reason For Visit: CHEST PAIN Discharge Diagnosis: Atrial fibrillation with RVR-reverted to sinus rhythm, chronic diastolic CHF, diabetes type 2 Condition: Good Discharge Goals: Decrease discomfort, Improve function and Increase independence Activity: Resume your previous activity Non-emergency contact: Primary Care Provider Call non-emergency contact if: you have any medication questions and your symptoms worsen Follow-up/Referrals: Lukasz Haines DO [Road Cutter] - 12/09/18 1:00 pm (Your appointment is with BRANDI Sabillon) James Marin MD [Primary Care Provider] - 12/05/18 10:05 am (Your appointment is with Dr. Little) Diet: Carb Consistent or DM2, Heart Healthy and Low Sodium (2gm) Addtl Provider Instructions: Sotalol 40 mg twice daily has been added and Carvedilol has been decreased to 12.5 mg twice daily Please take precaution to avoid falls Prescriptions: New sotalol 80 mg Tablet 40 mg PO BID 30 Days Qty: 30 RF: 0 Continued furosemide 40 mg Tablet 40 mg PO QAM RF: 0 atorvastatin 80 mg Tablet 80 mg PO QAM RF: 0 prednisone 5 mg Tablet 10 mg PO DAILY RF: 0 aspirin 81 mg Tablet,Delayed Release (Dr/Ec) 81 mg PO QAM RF: 0 isosorbide mononitrate 60 mg Tablet Extended Release 24 Hr 60 mg PO QAM RF: 0 terazosin 2 mg Capsule 2 mg PO DAILY RF: 0 nitroglycerin [Nitrostat] 0.4 mg Tablet, Sublingual 1 dose Sublingual UD PRN (Reason: Chest Pain) RF: 0 glipizide 5 mg Tablet 5 mg PO DAILY RF: 0 fenofibrate nanocrystallized 48 mg Tablet 48 mg PO QPM RF: 0 albuterol sulfate 90 mcg/actuation Aerosol Powdr Breath Activated 1 inh INHALATION QID PRN (Reason: Shortness Of Breath) RF: 0 Phospha 250 Neutral 250 mg Tablet 1 tab PO TID RF: 0 Eliquis 2.5 mg tablet 2.5 mg PO BID RF: 0 Tradjenta 5 mg tablet 5 mg PO DAILY RF: 0 coenzyme Q10 200 mg Capsule 200 mg PO DAILY RF: 0 Centrum 18-400 mg-mcg Tablet 1 tab PO DAILY RF: 0 Changed carvedilol 25 mg Tablet 12.5 mg PO BID Qty: 0 RF: 0 Stand-Alone Forms: [facility] Discharge Orders: Discharge Order (Routine); Ordered 11/28/18 Ordered By: Dayne Rockwell Admission Data Admit Date/Time: 11/25/18 13:52 Attending Provider: Dayne Rockwell Admit Provider: Brook Harden Primary Care Provider: James Marin Other Providers: Brook Harden ; Lukasz Haines Service: Telemetry Other Interventions: Discharge Summary Assessment (RN) Last Done: 11/28/18 13:44 DC Date/Time DO NOT enter until pt leaves facility: 11/28/18 14:40
== END 2018-11-28 14:40 | disposition home or self-care (01) | DRG 309 ==
LOC: ED 10:53 → 2S 13:52
DX: Z79.82 Long term (current) use of aspirin; E11.9 Type 2 diabetes mellitus without complications; Z95.5 Presence of coronary angioplasty implant and graft; I25.2 Old myocardial infarction; N18.3 Chronic kidney disease, stage 3 (moderate); M19.90 Unspecified osteoarthritis, unspecified site; I25.10 Atherosclerotic heart disease of native coronary artery without angina pectoris; I13.0 Hypertensive heart and chronic kidney disease with heart failure and stage 1 through stage 4 chronic kidney disease, or unspecified chronic kidney disease; D47.2 Monoclonal gammopathy; I48.91 Unspecified atrial fibrillation; Z82.49 Family history of ischemic heart disease and other diseases of the circulatory system; E78.5 Hyperlipidemia, unspecified; I50.32 Chronic diastolic (congestive) heart failure; N40.0 Benign prostatic hyperplasia without lower urinary tract symptoms

== ENCOUNTER 2022-07-05 11:23 | Inpatient (IN) ==
--- NOTE | 2022-07-05 11:48 | Emergency Department Note ---
Impression & Plan Symptomatic anemia, Elevated troponin, Diverticulitis, Iron deficiency anemia, GI bleed, Leukocytosis ED Provider Note NAME: RADHA DICKSON AGE: 87 SEX: M ARRIVES VIA: Walk-In INFORMANT: Patient ED PROVIDER(S): Sean Keen MD CHIEF COMPLAINT: Dizziness, constipation. PLAN: Disposition: Admit MEDICAL DECISION MAKING: The patient is a pleasant 87-year-old gentleman with a past medical history of diastolic heart failure, atrial fibrillation on Eliquis, CAD, MGUS, hypertension, hyperlipidemia who presents to the emergency department accompanied by his sons, via walk-in for evaluation of dizziness and imbalance which she reports has been going on for the past 24 hours where he also reports having abdominal pain and bloatedness for the past several days where he feels constipated. They report that they had since followed up with gastroenterology after being seen in this emergency department several weeks ago for mild rectal bleeding and he was recommended to begin Metamucil. Upon arriving to the emergency department room he immediately went to the bathroom with his sons and had a large nonbloody nonblack bowel movement. He reports his abdominal discomfort improved significantly and is essentially resolved. He reports feeling some ringing in his ears at times. He denies any chest pain or shortness of breath. They have noticed that his legs have become more swollen and while this does come and go depending on how he raises his legs this is more swollen than it has been in the past. He denies any fevers, chills, cough, congestion, urinary symptoms. On arrival the patient is fatigued appearing but no acute distress, afebrile, BP 90-100s/50-60s and otherwise stable vital signs. He has no focal neurologic deficits. Abdomen is nontender. EKG demonstrates suspected atrial ectopic rhythm setting of paroxysmal atrial fibrillation. Chest x-ray negative for acute cardiopulmonary process. WBC 23.7 with neutrophil predominance but no left shift, nonspecific. H/H 7.0/23.1 decreased from 15/46 on 06/13. Chemistry without metabolic acidosis. BUN is 23. LFTs unremarkable. High-sensitivity troponin 182, nonspecific in the setting of known CHF. Lipase not elevated. Procalcitonin is elevated at 1.1. UA appears contaminated with 1+ bacteria and WBCs. COVID-19, RNA, SAHARA test was negative. CT of the abdomen pelvis was performed and demonstrates evidence of acute diverticulitis including the descending colon/sigmoid colon, mid sigmoid colon as well as terminal ileum. Blood cultures were drawn and patient was treated with empiric Zosyn. Suspect leukocytosis may reflect component of infection as well as the patient's underlying MGUS. Patient was consented for blood transfusion and crossed for 2 units PRBCs with order for 1 to be transfused at this time. Patient and his sons agree with plan for admission. Case was [facility]. Triage Nursing notes reviewed and agree them. Prior/outside medical records reviewed Vital Signs: reviewed Differential diagnosis: Infection, dehydration, metabolic abnormality, hypo/hyperglycemia, electrolyte disturbance, anemia, hypoxia, cardiac sources, intracerebral event, toxicologic, neurologic, as well as other pathologies. ER treatment provided: See below. Diagnostics interpreted by me: ECG: Suspected atrial ectopic rhythm, 99 bpm, ST and T wave abnormality, no overt ST elevation, QTc 4 2, QRS 98. Cardiac Monitoring: An order for continuous cardiac monitoring was placed and demonstrated Laboratory studies: See below Imaging studies: See below Consultation(s): Case was discussed with Yohana Carreon [facility]. HPI: The patient is a pleasant 87-year-old gentleman with a past medical history of diastolic heart failure, atrial fibrillation on Eliquis, CAD, MGUS, hypertension, hyperlipidemia who presents to the emergency department accompanied by his sons, via walk-in for evaluation of dizziness and imbalance which she reports has been going on for the past 24 hours where he also reports having abdominal pain and bloatedness for the past several days where he feels constipated. They report that they had since followed up with gastroenterology after being seen in this emergency department several weeks ago for mild rectal bleeding and he was recommended to begin Metamucil. Upon arriving to the emergency department room he immediately went to the bathroom with his sons and had a large nonbloody nonblack bowel movement. He reports his abdominal discomfort improved significantly and is essentially resolved. He reports feeling some ringing in his ears at times. He denies any chest pain or shortness of breath. They have noticed that his legs have become more swollen and while this does come and go depending on how he raises his legs this is more swollen than it has been in the past. He denies any fevers, chills, cough, congestion, urinary symptoms. ROS: See above HPI for pertinent positives & negatives. A total of 10 systems re viewed and were otherwise negative. VITALS:See Below PHYSICAL EXAMINATION: GENERAL: Awake, alert, fatigued-appearing, in no distress HENT: Normocephalic, atraumatic. Oropharynx with dry mucous membranes and otherwise unremarkable. EYES: Normal conjunctiva. Sclera non-icteric. EOMI. No nystamgus. PEARRL. NECK: Supple. No nuchal rigidity. FROM. No JVD. RESPIRATORY: Clear to auscultation. CARDIAC: Regular rate, irregular rhythm. Extremities warm and well perfused. Pulses equal. ABDOMEN: Soft, non-distended. No tenderness to palpation. No rebound or guarding. No masses. RECTAL: Deferred. MUSCULOSKELETAL: Chest examination reveals no tenderness. The back is symmetrical on inspection without obvious abnormality. There is no CVA tenderness to palpation. No joint edema. LOWER EXTREMITIES: Calves are equal size bilaterally and non-tender. No edema. No discoloration. NEURO: No focal sensory or motor deficits noted. 5/5 strength and SILT x 4 extremities. Cerebellar function intact including yymtka-ko-kath and alternating palms. SKIN: No rash or jaundice noted. ED COURSE: Critical Care: I have personally spent greater than 45 minutes of critical care time in the direct management of this patient. This includes bedside care, interpretation of diagnostic studies, and testing, discussion with consultants, patient, and family members, and other required patient management activities. This 45 minutes is in excess of all separately billable procedures. Sean Keen MD Past Med/Surg History Medical History Atrial fibrillation BPH (benign prostatic hyperplasia) CAD (coronary artery disease) 2012 - MARY to LAD Cardiac murmur Chronic back pain Chronic renal disease, stage III FOLLOWS W/ DR. 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) Myocardial Infarction 2012 Non-ST elevation (NSTEMI) myocardial infarction Osteoarthritis Scoliosis Seronegative arthritis Surgical History History of cataract surgery RIGHT History of heart artery stent History of tooth extraction Family History Mother Coronary heart disease, Onset Age: 63 of [place] CHF (congestive heart failure) Myocardial infarction Father CHF (congestive heart failure) Pneumonia Sister Coronary heart disease History of CABG Rheumatic heart disease Social History Smoking Status: Never smoker Second Hand Exposure: Yes ( A CHILD); Hx Alcohol Use: No Hx Substance Use: No Preferred Language: Qatari Communication Ability: Effective Audio Narrator Required: No Beliefs That Will Affect Care: None marital status: / Current Living Situation: Alone Feels Safe at Home: Yes Safety Concerns: Feels Safe At This Time Assistive Devices: Denture - Upper, Denture - Lower, Glasses and Walker Allergies Allergies Allergy/AdvReac Type Severity Reaction Status Date / Time atenolol Allergy Unknown PT WAS Verified 07/05/22 15:15 TOLD NEVER TO TAKE AGAIN candesartan [From Atacand] AdvReac Intermediate HYPERKALEMI Verified 07/05/22 15:15 A lisinopril AdvReac Intermediate INCREASED Verified 07/05/22 15:15 CREATININE/HYPOTENSION Home Meds Home Medications Medication Instructions Recorded Confirmed albuterol sulfate 90 mcg/actuation 1 inh inhalation .Q4-6HR PRN 06/04/18 07/05/22 breath activated powder inhaler Shortness Of Breath aspirin 81 mg tablet,delayed 81 mg PO QAM 06/04/18 07/05/22 release atorvastatin 80 mg tablet 80 mg PO QAM 06/04/18 07/05/22 furosemide 40 mg tablet 40 mg PO QAM 06/04/18 07/05/22 coenzyme Q10 200 mg capsule 400 mg PO DAILY 09/03/18 07/05/22 multivitamin-ferrous 1 tab PO DAILY 09/03/18 07/05/22 fumarate-folic acid 18 mg-400 mcg tablet (Centrum) apixaban 5 mg tablet (Eliquis) 5 mg PO BID 06/13/22 07/05/22 carvedilol 12.5 mg tablet 12.5 mg PO BID 06/13/22 07/05/22 empagliflozin 10 mg tablet 10 mg PO QAM 06/13/22 07/05/22 (Jardiance) glipizide 2.5 mg tablet, extended 2.5 mg PO QAM 06/13/22 07/05/22 release 24 hr isosorbide mononitrate 60 mg 60 mg PO QAM 06/13/22 07/05/22 tablet,extended release 24 hr linagliptin 5 mg tablet (Tradjenta) 5 mg PO QAM 06/13/22 07/05/22 loperamide 2 mg capsule 2 mg PO QID PRN Diarrhea 06/13/22 07/05/22 nitroglycerin 0.4 mg sublingual 0.4 mg sublingual DIRECTED PRN 06/13/22 07/05/22 tablet Chest Pain prednisone 5 mg tablet 5 mg PO BID 06/13/22 07/05/22 sotalol 80 mg tablet 40 mg PO BID 06/13/22 07/05/22 terazosin 2 mg capsule 2 mg PO HS 06/13/22 07/05/22 furosemide 40 mg tablet 20 mg PO QPM 07/05/22 07/05/22 Results & Data (ED) Vital Signs Vital Signs - 24 hr 07/05/22 11:32 07/05/22 12:11 07/05/22 12:42 Temperature 37.1 C Temperature Source Temporal Artery Scan Pulse Rate 89 92 H 90 Pulse Rate [Apical] Pulse Rate from SpO2 Sensor Pulse Rhythm [Apical] Pulse Strength [Apical] Respiratory Rate 20 15 Respiratory Effort / Characteristics Non-Labored Spontaneous Respiratory Depth Normal Respiratory Pattern Blood Pressure 108/65 Blood Pressure [Left Arm] Blood Pressure Mean 79 Blood Pressure Mean [Left Arm] Blood Pressure Position [Left Arm] Pulse Oximetry 98 96 Oxygen Delivery Method Room Air Sepsis New/Unexplained Change in Mental Status N/A Sepsis Action Taken by Nursing No Action Required 07/05/22 12:37 07/05/22 11:57 07/05/22 12:00 Temperature Temperature Source Pulse Rate 102 H 100 H Pulse Rate [Apical] 88 Pulse Rate from SpO2 Sensor Pulse Rhythm [Apical] Regular Pulse Strength [Apical] Normal Respiratory Rate 21 21 16 Respiratory Effort / Characteristics Non-Labored Spontaneous Respiratory Depth Normal Respiratory Pattern Regular Blood Pressure Blood Pressure [Left Arm] 91/54 L Blood Pressure Mean Blood Pressure Mean [Left Arm] 66 Blood Pressure Position [Left Arm] Semi-fowlers Pulse Oximetry 97 Oxygen Delivery Method Room Air Sepsis New/Unexplained Change in Mental Status Sepsis Action Taken by Nursing 07/05/22 12:10 07/05/22 12:20 07/05/22 12:30 Temperature Temperature Source Pulse Rate 98 H 97 H 88 Pulse Rate [Apical] Pulse Rate from SpO2 Sensor Pulse Rhythm [Apical] Pulse Strength [Apical] Respiratory Rate 15 20 22 Respiratory Effort / Characteristics Respiratory Depth Respiratory Pattern Blood Pressure Blood Pressure [Left Arm] Blood Pressure Mean Blood Pressure Mean [Left Arm] Blood Pressure Position [Left Arm] Pulse Oximetry Oxygen Delivery Method Sepsis New/Unexplained Change in Mental Status Sepsis Action Taken by Nursing 07/05/22 12:40 07/05/22 12:50 07/05/22 13:00 Temperature Temperature Source Pulse Rate 85 86 Pulse Rate [Apical] Pulse Rate from SpO2 Sensor 86 Pulse Rhythm [Apical] Pulse Strength [Apical] Respiratory Rate 22 20 Respiratory Effort / Characteristics Respiratory Depth Respiratory Pattern Blood Pressure 100/43 L Blood Pressure [Left Arm] Blood Pressure Mean 62 Blood Pressure Mean [Left Arm] Blood Pressure Position [Left Arm] Pulse Oximetry 93 Oxygen Delivery Method Sepsis New/Unexplained Change in Mental Status Sepsis Action Taken by Nursing 07/05/22 13:00 07/05/22 13:31 07/05/22 13:40 Temperature Temperature Source Pulse Rate 84 94 H 84 Pulse Rate [Apical] Pulse Rate from SpO2 Sensor 84 83 Pulse Rhythm [Apical] Pulse Strength [Apical] Respiratory Rate 19 25 H 19 Respiratory Effort / Characteristics Respiratory Depth Respiratory Pattern Blood Pressure Blood Pressure [Left Arm] Blood Pressure Mean Blood Pressure Mean [Left Arm] Blood Pressure Position [Left Arm] Pulse Oximetry 90 95 Oxygen Delivery Method Sepsis New/Unexplained Change in Mental Status Sepsis Action Taken by Nursing 07/05/22 13:50 07/05/22 14:00 07/05/22 14:00 Temperature Temperature Source Pulse Rate 86 83 Pulse Rate [Apical] Pulse Rate from SpO2 Sensor 84 82 Pulse Rhythm [Apical] Pulse Strength [Apical] Respiratory Rate 11 L 21 Respiratory Effort / Characteristics Respiratory Depth Respiratory Pattern Blood Pressure 90/52 L Blood Pressure [Left Arm] Blood Pressure Mean 64 Blood Pressure Mean [Left Arm] Blood Pressure Position [Left Arm] Pulse Oximetry 99 95 Oxygen Delivery Method Sepsis New/Unexplained Change in Mental Status Sepsis Action Taken by Nursing 07/05/22 14:10 07/05/22 14:20 07/05/22 14:30 Temperature Temperature Source Pulse Rate 81 79 93 H Pulse Rate [Apical] Pulse Rate from SpO2 Sensor 83 79 90 Pulse Rhythm [Apical] Pulse Strength [Apical] Respiratory Rate 24 19 18 Respiratory Effort / Characteristics Respiratory Depth Respiratory Pattern Blood Pressure Blood Pressure [Left Arm] Blood Pressure Mean Blood Pressure Mean [Left Arm] Blood Pressure Position [Left Arm] Pulse Oximetry 97 88 L Oxygen Delivery Method Sepsis New/Unexplained Change in Mental Status Sepsis Action Taken by Nursing 07/05/22 14:31 07/05/22 14:31 07/05/22 14:40 Temperature Temperature Source Pulse Rate 85 82 Pulse Rate [Apical] Pulse Rate from SpO2 Sensor 86 79 Pulse Rhythm [Apical] Pulse Strength [Apical] Respiratory Rate 15 22 Respiratory Effort / Characteristics Respiratory Depth Respiratory Pattern Blood Pressure 114/73 Blood Pressure [Left Arm] Blood Pressure Mean 86 Blood Pressure Mean [Left Arm] Blood Pressure Position [Left Arm] Pulse Oximetry 91 Oxygen Delivery Method Sepsis New/Unexplained Change in Mental Status Sepsis Action Taken by Nursing 07/05/22 14:50 07/05/22 15:00 07/05/22 15:00 Temperature Temperature Source Pulse Rate 85 76 Pulse Rate [Apical] Pulse Rate from SpO2 Sensor 78 77 Pulse Rhythm [Apical] Pulse Strength [Apical] Respiratory Rate 16 24 Respiratory Effort / Characteristics Respiratory Depth Respiratory Pattern Blood Pressure 95/73 L Blood Pressure [Left Arm] Blood Pressure Mean 80 Blood Pressure Mean [Left Arm] Blood Pressure Position [Left Arm] Pulse Oximetry 90 92 Oxygen Delivery Method Sepsis New/Unexplained Change in Mental Status Sepsis Action Taken by Nursing 07/05/22 15:10 07/05/22 15:20 07/05/22 15:30 Temperature Temperature Source Pulse Rate 83 82 78 Pulse Rate [Apical] Pulse Rate from SpO2 Sensor 77 79 76 Pulse Rhythm [Apical] Pulse Strength [Apical] Respiratory Rate 20 16 17 Respiratory Effort / Characteristics Respiratory Depth Respiratory Pattern Blood Pressure Blood Pressure [Left Arm] Blood Pressure Mean Blood Pressure Mean [Left Arm] Blood Pressure Position [Left Arm] Pulse Oximetry 91 97 97 Oxygen Delivery Method Sepsis New/Unexplained Change in Mental Status Sepsis Action Taken by Nursing 07/05/22 15:31 07/05/22 15:31 Temperature Temperature Source Pulse Rate 76 Pulse Rate [Apical] Pulse Rate from SpO2 Sensor 76 Pulse Rhythm [Apical] Pulse Strength [Apical] Respiratory Rate 24 Respiratory Effort / Characteristics Respiratory Depth Respiratory Pattern Blood Pressure 118/53 L Blood Pressure [Left Arm] Blood Pressure Mean 74 Blood Pressure Mean [Left Arm] Blood Pressure Position [Left Arm] Pulse Oximetry 95 Oxygen Delivery Method Sepsis New/Unexplained Change in Mental Status Sepsis Action Taken by Nursing Laboratory Data Attestation: I reviewed the patient's lab results. 07/05/22 11:57 07/05/22 11:57 Lab Results 07/05/22 07/05/22 07/05/22 Range/Units 11:57 11:57 11:57 WBC 23.77 H (4.8-10.8) K/ul RBC 2.54 L (4.70-6.10) M/uL Hgb 7.0 L (14.0-18.0) g/dl Hct 23.1 L (42.0-52.0) % MCV 90.9 (80.0-100.0) fL MCH 27.6 (25.0-34.0) pg MCHC 30.3 L (32.0-36.0) g/dL RDW Std Deviation 52.4 H (36.4-46.3) fL RDW Coeff of Coty 15.6 H (11.5-14.5) % Plt Count 198 (130-400) K/uL MPV 10.8 (9.4-12.4) fL Immature Gran % (Auto) 0.7 % Neut % (Auto) 88.4 % Lymph % (Auto) 3.6 % [place] % (Auto) 7.0 % Eos % (Auto) 0.0 % Baso % (Auto) 0.3 % Reticulocyte % (Auto) (0.5-2.0) % Neut # (Auto) 21.00 H (1.40-6.50) K/uL Lymph # (Auto) 0.86 L (1.2-3.4) K/uL [place] # (Auto) 1.66 H (0.11-0.59) K/uL Eos # (Auto) 0.01 (0-0.50) K/uL Baso # (Auto) 0.07 (0-0.2) K/uL Reticulocyte # (0.02-0.10) 10^6/uL Immature Gran # (Auto) 0.17 (0.01-0.20) K/uL Absolute Nucleated RBC 0.03 (0-0.12) K/uL Nucleated RBC % (auto) 0.1 % Polychromasia 1+ Tear Drop Cells 1+ Sodium 138 (136-145) mmol/L Potassium 4.0 (3.5-5.1) mmol/L Chloride 105 (98-107) mmol/L Carbon Dioxide 24 (21-32) mmol/L Anion Gap 9 (3-11) BUN 23 (6-23) mg/dl Creatinine 0.90 (0.6-1.4) mg/dl Est Cr Clr Drug Dosing 66.1 ml/min Est GFR ( Amer) 88.1 ml/min Est GFR (Non-Af Amer) 76.0 ml/min BUN/Creatinine Ratio 25.6 H (10-20) Glucose 186 H (70-99(Fasting)) mg/dl Lactate (0.4-2.0) mmol/L Calcium 8.8 (8.6-10.3) mg/dl Phosphorus 3.4 (2.5-4.9) mg/dl Magnesium 1.9 (1.7-2.4) mg/dl Iron (35-175) mcg/dl Unsaturated IBC (155-355) mcg/dl Transferrin (200-360) mg/dl Ferritin (8-388) ng/ml Total Bilirubin 0.9 (0.2-1.0) mg/dl Direct Bilirubin 0.2 (0-0.2) mg/dl AST 25 (13-39) U/L ALT 16 (7-52) U/L Alkaline Phosphatase 39 (34-104) U/L Lactate Dehydrogenase (86-244) U/L Troponin I High Sens 182.0 H* (0-20) pg/ml B-Natriuretic Peptide (0-100) pg/ml Total Protein 5.7 L (6.0-8.3) gm/dl Albumin 3.2 L (3.4-5.0) gm/dl Globulin 2.5 (2.5-4.0) gm/dl Albumin/Globulin Ratio 1.3 (0.9-2) Lipase 9 L (11-82) U/L Procalcitonin (0-0.5) ng/ml TSH 2.545 (0.300-4.500) uIu/ml Urine Color Urine Appearance (Clear) Urine pH (4.5-7.5) Ur Specific [place] (1.000-1.030) Urine Protein (Negative) Urine Glucose (UA) (Negative) Urine Ketones (Negative) Urine Blood (Negative) Urine Nitrite (Negative) Urine Bilirubin (Negative) Urine Urobilinogen (Negative) Ur Leukocyte Esterase (Negative) Urine WBC (Auto) (0-5) /hpf Urine RBC (Auto) (0-4) /hpf U Hyaline Cast (Auto) (0-5) /lpf U Epithel Cells (Auto) (0-5) /lpf Urine Bacteria (Auto) (Negative) Urine Yeast (None Prsent) SARS-CoV-2, RNA, NAAT (NEGATIVE) Blood Type Antibody Screen Direct Antiglob Test (Negative) DUTCH (IgG-AHG) (Negative) DUTCH, Polyspecific (Negative) DUTCH C3b, C3d 5 Min (Negative) Crossmatch 07/05/22 07/05/22 07/05/22 Range/Units 11:57 11:57 12:25 WBC (4.8-10.8) K/ul RBC (4.70-6.10) M/uL Hgb (14.0-18.0) g/dl Hct (42.0-52.0) % MCV (80.0-100.0) fL MCH (25.0-34.0) pg MCHC (32.0-36.0) g/dL RDW Std Deviation (36.4-46.3) fL RDW Coeff of Coty (11.5-14.5) % Plt Count (130-400) K/uL MPV (9.4-12.4) fL Immature Gran % (Auto) % Neut % (Auto) % Lymph % (Auto) % [place] % (Auto) % Eos % (Auto) % Baso % (Auto) % Reticulocyte % (Auto) (0.5-2.0) % Neut # (Auto) (1.40-6.50) K/uL Lymph # (Auto) (1.2-3.4) K/uL [place] # (Auto) (0.11-0.59) K/uL Eos # (Auto) (0-0.50) K/uL Baso # (Auto) (0-0.2) K/uL Reticulocyte # (0.02-0.10) 10^6/uL Immature Gran # (Auto) (0.01-0.20) K/uL Absolute Nucleated RBC (0-0.12) K/uL Nucleated RBC % (auto) % Polychromasia Tear Drop Cells Sodium (136-145) mmol/L Potassium (3.5-5.1) mmol/L Chloride (98-107) mmol/L Carbon Dioxide (21-32) mmol/L Anion Gap (3-11) BUN (6-23) mg/dl Creatinine (0.6-1.4) mg/dl Est Cr Clr Drug Dosing ml/min Est GFR ( Amer) ml/min Est GFR (Non-Af Amer) ml/min BUN/Creatinine Ratio (10-20) Glucose (70-99(Fasting)) mg/dl Lactate (0.4-2.0) mmol/L Calcium (8.6-10.3) mg/dl Phosphorus (2.5-4.9) mg/dl Magnesium (1.7-2.4) mg/dl Iron (35-175) mcg/dl Unsaturated IBC (155-355) mcg/dl Transferrin (200-360) mg/dl Ferritin (8-388) ng/ml Total Bilirubin (0.2-1.0) mg/dl Direct Bilirubin (0-0.2) mg/dl AST (13-39) U/L ALT (7-52) U/L Alkaline Phosphatase (34-104) U/L Lactate Dehydrogenase (86-244) U/L Troponin I High Sens (0-20) pg/ml B-Natriuretic Peptide 573 H (0-100) pg/ml Total Protein (6.0-8.3) gm/dl Albumin (3.4-5.0) gm/dl Globulin (2.5-4.0) gm/dl Albumin/Globulin Ratio (0.9-2) Lipase (11-82) U/L Procalcitonin 1.15 H (0-0.5) ng/ml TSH (0.300-4.500) uIu/ml Urine Color Urine Appearance (Clear) Urine pH (4.5-7.5) Ur Specific [place] (1.000-1.030) Urine Protein (Negative) Urine Glucose (UA) (Negative) Urine Ketones (Negative) Urine Blood (Negative) Urine Nitrite (Negative) Urine Bilirubin (Negative) Urine Urobilinogen (Negative) Ur Leukocyte Esterase (Negative) Urine WBC (Auto) (0-5) /hpf Urine RBC (Auto) (0-4) /hpf U Hyaline Cast (Auto) (0-5) /lpf U Epithel Cells (Auto) (0-5) /lpf Urine Bacteria (Auto) (Negative) Urine Yeast (None Prsent) SARS-CoV-2, RNA, NAAT NEGATIVE (NEGATIVE) Blood Type Antibody Screen Direct Antiglob Test (Negative) DUTCH (IgG-AHG) (Negative) DUTCH, Polyspecific (Negative) DUTCH C3b, C3d 5 Min (Negative) Crossmatch 07/05/22 07/05/22 07/05/22 Range/Units 12:29 13:44 13:44 WBC (4.8-10.8) K/ul RBC (4.70-6.10) M/uL Hgb (14.0-18.0) g/dl Hct (42.0-52.0) % MCV (80.0-100.0) fL MCH (25.0-34.0) pg MCHC (32.0-36.0) g/dL RDW Std Deviation (36.4-46.3) fL RDW Coeff of Coty (11.5-14.5) % Plt Count (130-400) K/uL MPV (9.4-12.4) fL Immature Gran % (Auto) % Neut % (Auto) % Lymph % (Auto) % [place] % (Auto) % Eos % (Auto) % Baso % (Auto) % Reticulocyte % (Auto) (0.5-2.0) % Neut # (Auto) (1.40-6.50) K/uL Lymph # (Auto) (1.2-3.4) K/uL [place] # (Auto) (0.11-0.59) K/uL Eos # (Auto) (0-0.50) K/uL Baso # (Auto) (0-0.2) K/uL Reticulocyte # (0.02-0.10) 10^6/uL Immature Gran # (Auto) (0.01-0.20) K/uL Absolute Nucleated RBC (0-0.12) K/uL Nucleated RBC % (auto) % Polychromasia Tear Drop Cells Sodium (136-145) mmol/L Potassium (3.5-5.1) mmol/L Chloride (98-107) mmol/L Carbon Dioxide (21-32) mmol/L Anion Gap (3-11) BUN (6-23) mg/dl Creatinine (0.6-1.4) mg/dl Est Cr Clr Drug Dosing ml/min Est GFR ( Amer) ml/min Est GFR (Non-Af Amer) ml/min BUN/Creatinine Ratio (10-20) Glucose (70-99(Fasting)) mg/dl Lactate (0.4-2.0) mmol/L Calcium (8.6-10.3) mg/dl Phosphorus (2.5-4.9) mg/dl Magnesium (1.7-2.4) mg/dl Iron < 10 L (35-175) mcg/dl Unsaturated IBC 255 (155-355) mcg/dl Transferrin 202 (200-360) mg/dl Ferritin 46.8 (8-388) ng/ml Total Bilirubin (0.2-1.0) mg/dl Direct Bilirubin (0-0.2) mg/dl AST (13-39) U/L ALT (7-52) U/L Alkaline Phosphatase (34-104) U/L Lactate Dehydrogenase (86-244) U/L Troponin I High Sens (0-20) pg/ml B-Natriuretic Peptide (0-100) pg/ml Total Protein (6.0-8.3) gm/dl Albumin (3.4-5.0) gm/dl Globulin (2.5-4.0) gm/dl Albumin/Globulin Ratio (0.9-2) Lipase (11-82) U/L Procalcitonin (0-0.5) ng/ml TSH (0.300-4.500) uIu/ml Urine Color Dark Yellow Urine Appearance Cloudy A (Clear) Urine pH 5.0 (4.5-7.5) Ur Specific [place] 1.032 H (1.000-1.030) Urine Protein 1+ H (Negative) Urine Glucose (UA) 3+ H (Negative) Urine Ketones Negative (Negative) Urine Blood Negative (Negative) Urine Nitrite Negative (Negative) Urine Bilirubin Negative (Negative) Urine Urobilinogen Negative (Negative) Ur Leukocyte Esterase 1+ H (Negative) Urine WBC (Auto) 10-30 H (0-5) /hpf Urine RBC (Auto) 0-4 (0-4) /hpf U Hyaline Cast (Auto) 5-10 H (0-5) /lpf U Epithel Cells (Auto) >30 H (0-5) /lpf Urine Bacteria (Auto) 1+ H (Negative) Urine Yeast Budding A (None Prsent) SARS-CoV-2, RNA, NAAT (NEGATIVE) Blood Type A Positive Antibody Screen NEGATIVE Direct Antiglob Test (Negative) DUTCH (IgG-AHG) (Negative) DUTCH, Polyspecific (Negative) DUTCH C3b, C3d 5 Min (Negative) Crossmatch See Detail 07/05/22 07/05/22 07/05/22 Range/Units 14:28 15:24 15:24 WBC (4.8-10.8) K/ul RBC (4.70-6.10) M/uL Hgb 6.3 L* (14.0-18.0) g/dl Hct 20.8 L* (42.0-52.0) % MCV (80.0-100.0) fL MCH (25.0-34.0) pg MCHC (32.0-36.0) g/dL RDW Std Deviation (36.4-46.3) fL RDW Coeff of Coty (11.5-14.5) % Plt Count (130-400) K/uL MPV (9.4-12.4) fL Immature Gran % (Auto) % Neut % (Auto) % Lymph % (Auto) % [place] % (Auto) % Eos % (Auto) % Baso % (Auto) % Reticulocyte % (Auto) 3.8 H (0.5-2.0) % Neut # (Auto) (1.40-6.50) K/uL Lymph # (Auto) (1.2-3.4) K/uL [place] # (Auto) (0.11-0.59) K/uL Eos # (Auto) (0-0.50) K/uL Baso # (Auto) (0-0.2) K/uL Reticulocyte # 0.09 (0.02-0.10) 10^6/uL Immature Gran # (Auto) (0.01-0.20) K/uL Absolute Nucleated RBC (0-0.12) K/uL Nucleated RBC % (auto) % Polychromasia Tear Drop Cells Sodium (136-145) mmol/L Potassium (3.5-5.1) mmol/L Chloride (98-107) mmol/L Carbon Dioxide (21-32) mmol/L Anion Gap (3-11) BUN (6-23) mg/dl Creatinine (0.6-1.4) mg/dl Est Cr Clr Drug Dosing ml/min Est GFR ( Amer) ml/min Est GFR (Non-Af Amer) ml/min BUN/Creatinine Ratio (10-20) Glucose (70-99(Fasting)) mg/dl Lactate 1.6 (0.4-2.0) mmol/L Calcium (8.6-10.3) mg/dl Phosphorus (2.5-4.9) mg/dl Magnesium (1.7-2.4) mg/dl Iron (35-175) mcg/dl Unsaturated IBC (155-355) mcg/dl Transferrin (200-360) mg/dl Ferritin (8-388) ng/ml Total Bilirubin (0.2-1.0) mg/dl Direct Bilirubin (0-0.2) mg/dl AST (13-39) U/L ALT (7-52) U/L Alkaline Phosphatase (34-104) U/L Lactate Dehydrogenase (86-244) U/L Troponin I High Sens (0-20) pg/ml B-Natriuretic Peptide (0-100) pg/ml Total Protein (6.0-8.3) gm/dl Albumin (3.4-5.0) gm/dl Globulin (2.5-4.0) gm/dl Albumin/Globulin Ratio (0.9-2) Lipase (11-82) U/L Procalcitonin (0-0.5) ng/ml TSH (0.300-4.500) uIu/ml Urine Color Urine Appearance (Clear) Urine pH (4.5-7.5) Ur Specific [place] (1.000-1.030) Urine Protein (Negative) Urine Glucose (UA) (Negative) Urine Ketones (Negative) Urine Blood (Negative) Urine Nitrite (Negative) Urine Bilirubin (Negative) Urine Urobilinogen (Negative) Ur Leukocyte Esterase (Negative) Urine WBC (Auto) (0-5) /hpf Urine RBC (Auto) (0-4) /hpf U Hyaline Cast (Auto) (0-5) /lpf U Epithel Cells (Auto) (0-5) /lpf Urine Bacteria (Auto) (Negative) Urine Yeast (None Prsent) SARS-CoV-2, RNA, NAAT (NEGATIVE) Blood Type Antibody Screen Direct Antiglob Test Negative (Negative) DUTCH (IgG-AHG) Neg (Negative) DUTCH, Polyspecific Neg (Negative) DUTCH C3b, C3d 5 Min Neg (Negative) Crossmatch 07/05/22 Range/Units 15:24 WBC (4.8-10.8) K/ul RBC (4.70-6.10) M/uL Hgb (14.0-18.0) g/dl Hct (42.0-52.0) % MCV (80.0-100.0) fL MCH (25.0-34.0) pg MCHC (32.0-36.0) g/dL RDW Std Deviation (36.4-46.3) fL RDW Coeff of [place] (11.5-14.5) % Plt Count (130-400) K/uL MPV (9.4-12.4) fL Immature Gran % (Auto) % Neut % (Auto) % Lymph % (Auto) % [place] % (Auto) % Eos % (Auto) % Baso % (Auto) % Reticulocyte % (Auto) (0.5-2.0) % Neut # (Auto) (1.40-6.50) K/uL Lymph # (Auto) (1.2-3.4) K/uL [place] # (Auto) (0.11-0.59) K/uL Eos # (Auto) (0-0.50) K/uL Baso # (Auto) (0-0.2) K/uL Reticulocyte # (0.02-0.10) 10^6/uL Immature Gran # (Auto) (0.01-0.20) K/uL Absolute Nucleated RBC (0-0.12) K/uL Nucleated RBC % (auto) % Polychromasia Tear Drop Cells Sodium (136-145) mmol/L Potassium (3.5-5.1) mmol/L Chloride (98-107) mmol/L Carbon Dioxide (21-32) mmol/L Anion Gap (3-11) BUN (6-23) mg/dl Creatinine (0.6-1.4) mg/dl Est Cr Clr Drug Dosing ml/min Est GFR ( Amer) ml/min Est GFR (Non-Af Amer) ml/min BUN/Creatinine Ratio (10-20) Glucose (70-99(Fasting)) mg/dl Lactate (0.4-2.0) mmol/L Calcium (8.6-10.3) mg/dl Phosphorus (2.5-4.9) mg/dl Magnesium (1.7-2.4) mg/dl Iron (35-175) mcg/dl Unsaturated IBC (155-355) mcg/dl Transferrin (200-360) mg/dl Ferritin (8-388) ng/ml Total Bilirubin (0.2-1.0) mg/dl Direct Bilirubin (0-0.2) mg/dl AST (13-39) U/L ALT (7-52) U/L Alkaline Phosphatase (34-104) U/L Lactate Dehydrogenase 190 (86-244) U/L Troponin I High Sens (0-20) pg/ml B-Natriuretic Peptide (0-100) pg/ml Total Protein (6.0-8.3) gm/dl Albumin (3.4-5.0) gm/dl Globulin (2.5-4.0) gm/dl Albumin/Globulin Ratio (0.9-2) Lipase (11-82) U/L Procalcitonin (0-0.5) ng/ml TSH (0.300-4.500) uIu/ml Urine Color Urine Appearance (Clear) Urine pH (4.5-7.5) Ur Specific [place] (1.000-1.030) Urine Protein (Negative) Urine Glucose (UA) (Negative) Urine Ketones (Negative) Urine Blood (Negative) Urine Nitrite (Negative) Urine Bilirubin (Negative) Urine Urobilinogen (Negative) Ur Leukocyte Esterase (Negative) Urine WBC (Auto) (0-5) /hpf Urine RBC (Auto) (0-4) /hpf U Hyaline Cast (Auto) (0-5) /lpf U Epithel Cells (Auto) (0-5) /lpf Urine Bacteria (Auto) (Negative) Urine Yeast (None Prsent) SARS-CoV-2, RNA, NAAT (NEGATIVE) Blood Type Antibody Screen Direct Antiglob Test (Negative) DUTCH (IgG-AHG) (Negative) DUTCH, Polyspecific (Negative) DUTCH C3b, C3d 5 Min (Negative) Crossmatch Administered Medications Carvedilol (Carvedilol 12.5 Mg Tab) 12.5 mg PO BID ANNALISA Stop: 08/04/22 20:59 Last Admin: 07/05/22 20:28 Dose: 12.5 mg Documented By: DARRYN Piperacillin Sod/Tazobactam (Sod 4.5 gm/ Dextrose) 120 mls @ 30 mls/hr IV Q8H PENDING SALE TO [facility]; Protocol Stop: 07/15/22 19:59 Last Infusion: 07/06/22 00:21 Dose: 0 mls/hr Documented By: Admin: 07/05/22 20:28 Dose: 30 mls/hr Documented By: DARRYN Insulin Aspart (Insulin Aspart Per Unit Charge) 0 units SC ACHS ANNALISA Stop: 08/04/22 17:43 Last Admin: 07/05/22 20:35 Dose: 2 units Documented By: DARRYN Co-signed By: YUNIEL Admin: 07/05/22 18:02 Dose: Not Given Documented By: ANITRA Prednisone (Prednisone 5 Mg Tab) 5 mg PO BID ANNALISA Stop: 08/04/22 20:59 Last Admin: 07/05/22 20:29 Dose: 5 mg Documented By: DARRYN Sotalol HCl (Sotalol Hcl 80 Mg Tab) 40 mg PO BID ANNALISA Stop: 08/04/22 20:59 Last Admin: 07/05/22 20:30 Dose: 40 mg Documented By: DARRYN Discontinued Medications Sodium Chloride (Nss) 250 mls @ 999 mls/hr IV .Q16M ONE Stop: 07/05/22 12:27 Last Infusion: 07/05/22 12:51 Dose: 0 mls/hr Documented By: Admin: 07/05/22 12:33 Dose: 999 mls/hr Documented By: Piperacillin Sod/Tazobactam Sod (Zosyn) 4.5 gm in 120 mls @ 240 mls/hr IV NOW ONE Stop: 07/05/22 15:06 Last Infusion: 07/05/22 15:19 Dose: 0 mls/hr Documented By: Admin: 07/05/22 14:49 Dose: 240 mls/hr Documented By: Ioversol (Optiray 350 100ml) 87 ml IV ONCE ONE Stop: 07/05/22 13:24 Last Admin: 07/05/22 13:28 Dose: 87 ml Documented By: FRANDY Imaging Data Radiologist's Impression: Head CT 07/05/22 12:07 CT OF THE HEAD WITHOUT CONTRAST CLINICAL HISTORY: dizziness/vertigo COMPARISON STUDY: No previous studies for comparison. TECHNIQUE: Helical axial images of the head were obtained without IV contrast. Automated exposure control was utilized for the study. A dose lowering technique was utilized adhering to the principles of ALARA. FINDINGS: No acute intracranial hemorrhage, midline shift or mass effect is present. The ventricular system is unremarkable. The basal cisterns are patent. No extra-axial collections are present. There are no findings to suggest acute dural sinus thrombosis or acute territorial infarct. No significant calvarial abnormalities are present. Visualized portions of the right maxillary sinus are opacified. The right frontal and anterior right ethmoid air cells are opacified as well. These findings are likely chronic. IMPRESSION: No acute intracranial findings. ACT 112: Negative or not required by law. Electronically signed by: Marcial Quintero M.D. 07/05/2022 1:36 PM Abdomen/Pelvis CT 07/05/22 13:[address] WITH IV CONTRAST CT DOSE: 1289.62 mGy.cm HISTORY: anemia, abd pain, rectal bleeding TECHNIQUE: Multiaxial CT images of the abdomen and pelvis were performed following the use of intravenous contrast. A dose lowering technique was utilized adhering to the principles of ALARA. COMPARISON STUDY: Abdomen and pelvis CT 06/13/2022. FINDINGS: There is a large hiatus hernia containing the majority of the stomach which extends towards the left hemithorax. This remains unchanged. Mild dependent changes seen within the lungs. No pneumoperitoneum. No pneumatosis. No acute fractures identified. There is a 4 cm duodenal diverticulum again noted. The liver, gallbladder, spleen, and adrenal glands are unremarkable. Mild bilateral cortical renal thinning. A 5 mm hypodense lesion within the right kidney. This is too small to characterize but favors a cyst. No ureteral stones. No hydronephrosis. The main portal vein is patent. Mildly ectatic abdominal aorta with moderate calcified plaque. No retroperitoneal lymphadenopathy. Normal bladder. No pelvic free fluid. Extensive colonic diverticulosis. There is an inflamed diverticulum at the junction of the descending colon/sigmoid colon with adjacent fat stranding consistent with an acute diverticulitis. This is best seen on image 277. There is also mild pericolonic fat stranding and thickening within the mid sigmoid colon which could represent an additional site of acute diverticulitis or a superimposed colitis. There is focal thickening and adjacent inflammatory change at the terminal ileum with multiple diverticula. This also likely represents an acute diverticulitis. No dilated loops of bowel to suggest an obstruction. Fluid-filled colon is noted. This suggests a diarrheal illness. Normal appendix. There is a 7 mm hypodense lesion within the tail the pancreas on image 117. 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 No perforation or abscess identified. IMPRESSION: 1. There is an inflamed diverticulum at the junction of the descending colon/sigmoid colon with adjacent fat stranding consistent with an acute diverticulitis. 2. There is also mild pericolonic fat stranding and thickening within the mid sigmoid colon which could represent an additional site of acute diverticulitis or a superimposed colitis. 3. There is focal thickening and adjacent inflammatory change at the terminal ileum with multiple diverticula. This also likely represents an acute diverticulitis. 4. No dilated loops of bowel to suggest an obstruction. Fluid-filled colon is noted. This suggests a diarrheal illness. . 5. Large hiatus hernia again noted. ACT 112: Negative or not required by law. Electronically signed by: Nathan Bland M.D. 07/05/2022 1:52 PM Discharge Plan Visit Data Chief Complaint: Weakness Stated Complaint: LIGHT HEADED, WEAKNESS ED Provider: Sean Keen Discharge Problem: Symptomatic anemia, Elevated troponin, Diverticulitis, Iron deficiency anemia, GI bleed, Leukocytosis Patient Disposition: Admitted As Inpatient Discharge Instructions Interventions: ED Discharge Assessment Last Done: 07/05/22 17:29
[2022-07-05] MEDS ORDERED: SODIUM CHLORIDE 0.9% 250 ML IV ONE (12:12)
[2022-07-05 12:19] LABS: Hematocrit (blood only) 23.1 % (42.0-52.0); Mean Corpuscular Hemoglobin 27.6 pg (25.0-34.0); Mean Corpuscular Hgb Conc 30.3 g/dL (32.0-36.0); Mean Corpuscular Volume 90.9 fL (80.0-100.0); Mean Platelet Volume 10.8 fL (9.4-12.4); Nucleated RBC # (auto) 0.03 K/uL (0-0.12); Nucleated RBC % (auto) 0.1 %; Platelet Count 198 K/uL (130-400); RDW Coefficient of Variation 15.6 % (11.5-14.5); RDW Standard Deviation 52.4 fL (36.4-46.3); Red Blood Count 2.54 M/uL (4.70-6.10); White Blood Count 23.77 K/ul (4.8-10.8)
--- NOTE | 2022-07-05 12:19 | XRay Report ---
XR chest 1V portable HISTORY: weakness COMPARISON: Chest 11/25/2018. FINDINGS: The cardiac silhouette remains mildly enlarged. The upper lung zones are clear. No pneumoth orax. No pleural effusions. Left basilar linear densities remain unchanged in favor scarring or subse gmental atelectasis. No new focal lung consolidations to suggest a pneumonia. No evidence for pulmona ry edema. Advanced degenerative changes again noted within the shoulders. IMPRESSION: No significant change compared to the prior study. No acute process. ACT 112: Negative or not required by law. Electronically signed by: Nathan Bland M.D. 07/05/2022 12:18 PM
--- NOTE | 2022-07-05 12:21 | XRay Report ---
KUB HISTORY: Constipation. Generalized abdominal pain. COMPARISON: Abdomen and pelvis CT 06/13/2022. FINDINGS: The bowel gas pattern is unremarkable. There are no dilated loops of small bowel to suggest an obstruction. No renal calculi. No ureteral calculi. No pneumoperitoneum or pneumatosis. Mild-to- moderate fecal retention. Mild levoscoliosis and degenerative changes within the lumbar spine. IMPRESSION: 1. Nonobstructive bowel gas pattern. 2. [id number] fecal retention. ACT 112: Negative or not required by law. Electronically signed by: Nathan Bland M.D. 07/05/2022 12:19 PM
[2022-07-05 12:33] LABS: Albumin Globulin Ratio 1.3 (0.9-2); Albumin Level 3.2 gm/dl (3.4-5.0); BUN Creatinine Ratio 25.6 (10-20); Bilirubin Direct 0.2 mg/dl (0-0.2); Bilirubin,Total 0.9 mg/dl (0.2-1.0); Calcium 8.8 mg/dl (8.6-10.3); Creatinine Clr Calc Pharmacy 66.1 ml/min; Est GFR (African American) 88.1 ml/min; Globulin 2.5 gm/dl (2.5-4.0); Magnesium 1.9 mg/dl (1.7-2.4); Phosphorus 3.4 mg/dl (2.5-4.9); Total Protein 5.7 gm/dl (6.0-8.3)
[2022-07-05 12:48] LABS: Basophils # (auto) 0.07 K/uL (0-0.2); Basophils % (auto) 0.3 %; Eosinophils # (auto) 0.01 K/uL (0-0.50); Immature Granulocytes # (auto) 0.17 K/uL (0.01-0.20); Immature Granulocytes % (auto) 0.7 %; Lymphocytes # (auto) 0.86 K/uL (1.2-3.4); Lymphocytes % (auto) 3.6 %; Monocytes # (auto) 1.66 K/uL (0.11-0.59); Neutrophils % (auto) 88.4 %; Polychromasia 1+; Tear Drop Cells 1+
[2022-07-05] MEDS ORDERED: SODIUM CHLORIDE 0.9% 250 ML IV PRN ×2 (13:14→14:37)
[2022-07-05 13:21] LABS: Appearance Urine Cloudy (Clear); Bacteria Urine Automated 1+ (Negative); Bilirubin Urine Negative (Negative); Blood Urine Negative (Negative); Color Urine Dark Yellow; Epithelial Cell Urine Auto >30 /lpf (0-5); Glucose Urine UA 3+ (Negative); Ketones Urine Negative (Negative); Leukocyte Esterase Urine 1+ (Negative); Nitrite Urine Negative (Negative); Protein Urine 1+ (Negative); RBC Urine Automated 0-4 /hpf (0-4); Specific Gravity Urine 1.032 (1.000-1.030); Urobilinogen Urine Negative (Negative)
[2022-07-05] MEDS ORDERED: OPTIRAY 350 100ml IV ONE (13:23)
--- NOTE | 2022-07-05 13:37 | CT Scan Report ---
CT OF THE HEAD WITHOUT CONTRAST CLINICAL HISTORY: dizziness/vertigo COMPARISON STUDY: No previous studies for comparison. TECHNIQUE: Helical axial images of the head were obtained without IV contrast. Automated exposure con trol was utilized for the study. A dose lowering technique was utilized adhering to the principles o f ALARA. FINDINGS: No acute intracranial hemorrhage, midline shift or mass effect is present. The ventricular system is unremarkable. The basal cisterns are patent. No extra-axial collections are present. There are no findings to suggest acute dural sinus thrombosis or acute territorial infarct. No significant calvarial abnormalities are present. Visualized portions of the right maxillary sinus are opacified. The right frontal and anterior right ethmoid air cells are opacified as well. These findings are like ly chronic. IMPRESSION: No acute intracranial findings. ACT 112: Negative or not required by law. Electronically signed by: Marcial Quintero M.D. 07/05/2022 1:36 PM
--- NOTE | 2022-07-05 13:53 | CT Scan Report ---
ABDOMEN AND PELVIS CT WITH IV CONTRAST CT DOSE: 1289.62 mGy.cm HISTORY: anemia, abd pain, rectal bleeding TECHNIQUE: Multiaxial CT images of the abdomen and pelvis were performed following the use of intrave nous contrast. A dose lowering technique was utilized adhering to the principles of ALARA. COMPARISON STUDY: Abdomen and pelvis CT 06/13/2022. FINDINGS: There is a large hiatus hernia containing the majority of the stomach which extends towards the left hemithorax. This remains unchanged. Mild dependent changes seen within the lungs. No pneumo peritoneum. No pneumatosis. No acute fractures identified. There is a 4 cm duodenal diverticulum agai n noted. The liver, gallbladder, spleen, and adrenal glands are unremarkable. Mild bilateral cortical renal thinning. A 5 mm hypodense lesion within the right kidney. This is too small to characterize b ut favors a cyst. No ureteral stones. No hydronephrosis. The main portal vein is patent. Mildly ectat ic abdominal aorta with moderate calcified plaque. No retroperitoneal lymphadenopathy. Normal bladder . No pelvic free fluid. Extensive colonic diverticulosis. There is an inflamed diverticulum at the ju nction of the descending colon/sigmoid colon with adjacent fat stranding consistent with an acute div erticulitis. This is best seen on image 277. There is also mild pericolonic fat stranding and thicken ing within the mid sigmoid colon which could represent an additional site of acute diverticulitis or a superimposed colitis. There is focal thickening and adjacent inflammatory change at the terminal il eum with multiple diverticula. This also likely represents an acute diverticulitis. No dilated loops of bowel to suggest an obstruction. Fluid-filled colon is noted. This suggests a diarrheal illness. N ormal appendix. There is a 7 mm hypodense lesion within the tail the pancreas on image 117. This favo rs a small side branch intraductal papillary mucinous neoplasm. No perforation or abscess identified. IMPRESSION: 1. There is an inflamed diverticulum at the junction of the descending colon/sigmoid colon with adjac ent fat stranding consistent with an acute diverticulitis. 2. There is also mild pericolonic fat stranding and thickening within the mid sigmoid colon which cou ld represent an additional site of acute diverticulitis or a superimposed colitis. 3. There is focal thickening and adjacent inflammatory change at the terminal ileum with multiple div erticula. This also likely represents an acute diverticulitis. 4. No dilated loops of bowel to suggest an obstruction. Fluid-filled colon is noted. This suggests a diarrheal illness. . 5. Large hiatus hernia again noted. ACT 112: Negative or not required by law. Electronically signed by: Nathan Bland M.D. 07/05/2022 1:52 PM
[2022-07-05 14:20] LABS: Iron < 10 mcg/dl (35-175); Transferrin 202 mg/dl (200-360); Unsaturated Iron Binding Cap 255 mcg/dl (155-355)
[2022-07-05 14:35] LABS: Ferritin 46.8 ng/ml (8-388)
[2022-07-05] MEDS ORDERED: PIPERACILLIN/TAZOBACTAM 4.5 GM/120 ML BAG IV ONE (14:37)
--- NOTE | 2022-07-05 15:02 | History & Physical Report ---
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 Iron<10, lactate WNL, procalcitonin: 1.15.. Baseline hemoglobin 15 as per chart review CT head: No acute intracranial abnormality noted CT abdomen pelvis: 1. There is an inflamed diverticulum at the junction of the descending colon/sigmoid colon with adjacent fat stranding consistent with an acute diverticulitis. 2. There is also mild pericolonic fat stranding and thickening within the mid sigmoid colon which could represent an additional site of acute diverticulitis or a superimposed colitis. 3. There is focal thickening and adjacent inflammatory change at the terminal ileum with multiple diverticula. This also likely represents an acute diverticulitis. 4. No dilated loops of bowel to suggest an obstruction. Fluid-filled colon is noted. This suggests a diarrheal illness. . In ER typed and crossed for 2 units PRBCs with order for 1 unit to be transfused now Repeat H&H after 1 unit PRBC transfused to determine if further transfusion needed Reticulocyte, peripheral smear, LDH, haptoglobin labs pending Hold Eliquis Clear liquid diet In ER given Zosyn Continue Zosyn CBC, BMP in a.m. Stool culture, C. difficile if patient would develop diarrhea GI consult (4) Elevated troponin: (5) MGUS (monoclonal gammopathy of unknown significance): Plan: Follows with hematology, Dr. Conway Acute anemia as noted above. Baseline hemoglobin 15 Reticulocyte, peripheral smear, LDH, haptoglobin labs pending (6) CAD (coronary artery disease): Plan: History NSTEMI 2011 s/p MARY to LAD High-sensitivity troponin: 182. EKG personally reviewed and sinus rhythm, PVCs, T wave inversion lateral leads Possible demand ischemia secondary to anemia vs NSTEMI Denies chest pain, shortness of breath Trend troponin Continue aspirin Continue carvedilol, atorvastatin Echo EKG in a.m. Consult cardiology (7) Hypertension: Plan: Soft to hypotensive BPs in ER. SBPs currently low 100's Monitor BP Continue carvedilol with holding parameters (8) Chronic diastolic CHF (congestive heart failure): Plan: History echo 01/31/2021: EF: 65%, grade 1 diastolic dysfunction, mild aortic valve sclerosis without stenosis, mild AR, small posterior loculated pericardial effusion present On chronic Lasix Had morning dose of Lasix. Hold evening dose of Lasix with soft BPs. Will reevaluate after PRBC transfusion (9) Diabetes mellitus, type 2: Plan: A1c: 8.5 on 06/15/2022 Hold home glycemic medication NovoLog sliding scale per protocol (10) Atrial fibrillation: Plan: Anticoagulated on Eliquis Hold Eliquis with current anemia Continue carvedilol, sotalol with holding parameters (11) Chronic renal disease, stage III: Plan: Cr: 0.9. Baseline hemoglobin 0.6-0.8 per outpatient chart review Monitor renal functions, avoid nephrotoxic agent when possible (12) BPH (benign prostatic hyperplasia): Plan: Hold terazosin for now (13) Inflammatory polyarthropathy: Plan: On chronic prednisone Continue prednisone DVT Prophylaxis SCDs Full Code as per discussion with pt Follows with Dr Dowd for routine care Pt was seen and care coordinated with Dr Hardin. See addendum I spent a total of 76 minutes reviewing notes, outpatient records, labs, medication, coordinating, documenting and providing care for this patient excluding time spent in the performance of separately billed services. 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 Patient states today lightheaded with sitting, standing and walking. He has generalized weakness. Patient with history of reported red rectal bleeding. Per chart review. Patient was seen in [facility] [place] ER on 06/13/2022 for rectal bleeding. Hemoglobin at that time was [address] abdomen pelvis showed high diverticulosis burden, no acute diverticulitis. Patient followed up with outpatient GI on 06/27/2022 for rectal bleeding. Colonoscopy was discussed however patient and family decided on conservative measures. He started Metamucil daily. Patient reports constipation for 2 days. Today he did have formed bowel movement. Patient reports today some lower abdominal discomfort today. Denies any rectal bleeding for 1 week. Denies any noted melena. Denies fever/chills, diaphoresis, N/V, DENNIS, syncope, vision changes, neck pain, CP, SOB, palpitations, cough, sore throat, choking, otalgia, rhinorrhea, paresthesias, extremity edema, rashes, urinary symptoms. Today in ER found to be anemic with hemoglobin of 7. CT abdomen pelvis consistent with diverticulitis. Patient being admitted for further evaluation and treatment. Allergies Allergy/AdvReac Type Severity Reaction Status Date / Time atenolol Allergy Unknown PT WAS Verified 07/05/22 15:15 TOLD NEVER TO TAKE AGAIN candesartan [From Atacand] AdvReac Intermediate HYPERKALEMI Verified 07/05/22 15:15 A lisinopril AdvReac Intermediate INCREASED Verified 07/05/22 15:15 CREATININE/HYPOTENSION Home Medications Medication Instructions Recorded Confirmed Type albuterol sulfate 90 mcg/actuation 1 inh inhalation .Q4-6HR PRN 06/04/18 07/05/22 History breath activated powder inhaler Shortness Of Breath aspirin 81 mg tablet,delayed 81 mg PO QA 06/04/18 07/05/22 History release atorvastatin 80 mg tablet 80 mg PO QA 06/04/18 07/05/22 History furosemide 40 mg tablet 40 mg PO QAM 06/04/18 07/05/22 History coenzyme Q10 200 mg capsule 400 mg PO DAILY 09/03/18 07/05/22 History multivitamin-ferrous 1 tab PO DAILY 09/03/18 07/05/22 History fumarate-folic acid 18 mg-400 mcg tablet (Centrum) apixaban 5 mg tablet (Eliquis) 5 mg PO BID 06/13/22 07/05/22 History carvedilol 12.5 mg tablet 12.5 mg PO BID 06/13/22 07/05/22 History empagliflozin 10 mg tablet 10 mg PO QAM 06/13/22 07/05/22 History (Jardiance) glipizide 2.5 mg tablet, extended 2.5 mg PO QAM 06/13/22 07/05/22 History release 24 hr isosorbide mononitrate 60 mg 60 mg PO QAM 06/13/22 07/05/22 History tablet,extended release 24 hr linagliptin 5 mg tablet (Tradjenta) 5 mg PO QAM 06/13/22 07/05/22 History loperamide 2 mg capsule 2 mg PO QID PRN Diarrhea 06/13/22 07/05/22 History nitroglycerin 0.4 mg sublingual 0.4 mg sublingual DIRECTED PRN 06/13/22 07/05/22 History tablet Chest Pain prednisone 5 mg tablet 5 mg PO BID 06/13/22 07/05/22 History sotalol 80 mg tablet 40 mg PO BID 06/13/22 07/05/22 History terazosin 2 mg capsule 2 mg PO HS 06/13/22 07/05/22 History furosemide 40 mg tablet 20 mg PO QPM 07/05/22 07/05/22 History Past Med/Surg History Medical History (Updated 07/05/22 @ 19:41 by Jeannette Ascencio PA-C) Atrial fibrillation BPH (benign prostatic hyperplasia) CAD (coronary artery disease) 2012 - MARY to LAD Cardiac murmur Chronic back pain Chronic renal disease, stage III FOLLOWS W/ DR. 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) Myocardial Infarction 2011 Non-ST elevation (NSTEMI) myocardial infarction Osteoarthritis Scoliosis Seronegative arthritis Surgical History History of cataract surgery RIGHT History of heart artery stent History of tooth extraction Family History Mother Coronary heart disease, Onset Age: 63 of [place] CHF (congestive heart failure) Myocardial infarction Father CHF (congestive heart failure) Pneumonia Sister Coronary heart disease History of CABG Rheumatic heart disease Social History Smoking Status: Never smoker Second Hand Exposure: Yes ( A CHILD); Hx Alcohol Use: No Hx Substance Use: No Preferred Language: Vietnamese Communication Ability: Effective Sap Bw Architect Required: No Beliefs That Will Affect Care: None marital status: / Current Living Situation: Alone Feels Safe at Home: Yes Safety Concerns: Feels Safe At This Time Assistive Devices: Denture - Upper, Denture - Lower, Glasses and Walker Review of Systems Review of Systems: All systems reviewed & are unremarkable except as noted in HPI & below Physical Exam Physical Exam: General: no acute distress, WDWN Head: normocephalic, atraumatic Eyes: +pale conjunctiva, anicteric ENT: normal inspection external ears, nose, mucous membranes moist Neck: supple, trachea midline Lungs: clear, no respiratory distress, no wheezing/rhonchi/rales CV: RRR, +murmur, 2+ pretibial edema Abd: normal BS, soft, +Tenderness to palpation LLQ without rebound or guarding Ext: no cyanosis, no calf tenderness, RLE: +scab to anterior lower leg with surrounding erythema, non-tender to palpation, no discharge or red streaking Neuro: A&O x 3, no focal deficits noted, normal affect Skin: pale, warm, dry Results & Data Results & Data Vital Signs (Past 12 Hours) Vital Signs Temp Pulse Pulse Resp BP BP Pulse Ox 07/05/22 14:50 85 16 90 07/05/22 14:40 82 22 91 07/05/22 14:31 85 15 07/05/22 14:31 114/73 07/05/22 14:30 93 H 18 07/05/22 14:20 79 19 88 L 07/05/22 14:10 81 24 97 07/05/22 14:00 83 21 95 07/05/22 14:00 90/52 L 07/05/22 13:50 86 11 L 99 07/05/22 13:40 84 19 95 07/05/22 13:31 94 H 25 H 07/05/22 13:00 84 19 90 07/05/22 13:00 100/43 L 07/05/22 12:50 86 20 93 07/05/22 12:40 85 22 07/05/22 12:30 88 22 07/05/22 12:20 97 H 20 07/05/22 12:10 98 H 15 07/05/22 12:00 100 H 16 07/05/22 11:57 102 H 21 07/05/22 12:37 88 21 91/54 L 97 07/05/22 12:42 90 15 96 07/05/22 12:11 92 H 07/05/22 11:32 37.1 C 89 20 108/65 98 O2 Del Method 07/05/22 14:50 07/05/22 14:40 07/05/22 14:31 07/05/22 14:31 07/05/22 14:30 07/05/22 14:20 07/05/22 14:10 07/05/22 14:00 07/05/22 14:00 07/05/22 13:50 07/05/22 13:40 07/05/22 13:31 07/05/22 13:00 07/05/22 13:00 07/05/22 12:50 07/05/22 12:40 07/05/22 12:30 07/05/22 12:20 07/05/22 12:10 07/05/22 12:00 07/05/22 11:57 07/05/22 12:37 Room Air 07/05/22 12:42 07/05/22 12:11 07/05/22 11:32 Room Air Laboratory Results Short CBC 07/05/22 07/05/22 Range/Units 11:57 15:24 WBC 23.77 H (4.8-10.8) K/ul Hgb 7.0 L 6.3 L* (14.0-18.0) g/dl Hct 23.1 L 20.8 L* (42.0-52.0) % Plt Count 198 (130-400) K/uL BMP 07/05/22 11:57 Sodium 138 Potassium 4.0 Chloride 105 Carbon Dioxide 24 BUN 23 Creatinine 0.90 Glucose 186 H Calcium 8.8 Liver Function 07/05/22 Range/Units 11:57 Total Bilirubin 0.9 (0.2-1.0) mg/dl Direct Bilirubin 0.2 (0-0.2) mg/dl AST 25 (13-39) U/L ALT 16 (7-52) U/L Alkaline Phosphatase 39 (34-104) U/L Albumin 3.2 L (3.4-5.0) gm/dl Urine 07/05/22 Range/Units 12:29 Urine Color Dark Yellow Urine Appearance Cloudy A (Clear) Urine pH 5.0 (4.5-7.5) Ur Specific [place] 1.032 H (1.000-1.030) Urine Protein 1+ H (Negative) Urine Glucose (UA) 3+ H (Negative) Diagnostic Findings Chest X-Ray 07/05/22 11:37 XR chest 1V portable HISTORY: weakness COMPARISON: Chest 11/25/2018. FINDINGS: The cardiac silhouette remains mildly enlarged. The upper lung zones are clear. No pneumothorax. No pleural effusions. Left basilar linear densities remain unchanged in favor scarring or subsegmental atelectasis. No new focal lung consolidations to suggest a pneumonia. No evidence for pulmonary edema. Advanced degenerative changes again noted within the shoulders. IMPRESSION: No significant change compared to the prior study. No acute process. ACT 112: Negative or not required by law. Electronically signed by: Nathan Bland M.D. 07/05/2022 12:18 PM KUB X-Ray 07/05/22 12:04 KUB HISTORY: Constipation. Generalized abdominal pain. COMPARISON: Abdomen and pelvis CT 06/13/2022. FINDINGS: The bowel gas pattern is unremarkable. There are no dilated loops of small bowel to suggest an obstruction. No renal calculi. No ureteral calculi. No pneumoperitoneum or pneumatosis. [id number] fecal retention. Mild levoscoliosis and degenerative changes within the lumbar spine. IMPRESSION: 1. Nonobstructive bowel gas pattern. 2. [id number] fecal retention. ACT 112: Negative or not required by law. Electronically signed by: Nathan Bland M.D. 07/05/2022 12:[address] 07/05/22 12:07 CT OF THE HEAD WITHOUT CONTRAST CLINICAL HISTORY: dizziness/vertigo COMPARISON STUDY: No previous studies for comparison. TECHNIQUE: Helical axial images of the head were obtained without IV contrast. Automated exposure control was utilized for the study. A dose lowering technique was utilized adhering to the principles of ALARA. FINDINGS: No acute intracranial hemorrhage, midline shift or mass effect is present. The ventricular system is unremarkable. The basal cisterns are patent. No extra-axial collections are present. There are no findings to suggest acute dural sinus thrombosis or acute territorial infarct. No significant calvarial abnormalities are present. Visualized portions of the right maxillary sinus are opacified. The right frontal and anterior right ethmoid air cells are opacified as well. These findings are likely chronic. IMPRESSION: No acute intracranial findings. ACT 112: Negative or not required by law. Electronically signed by: Marcial Quintero M.D. 07/05/2022 1:36 PM Abdomen/Pelvis CT 07/05/22 13:[address] WITH IV CONTRAST CT DOSE: 1289.62 mGy.cm HISTORY: anemia, abd pain, rectal bleeding TECHNIQUE: Multiaxial CT images of the abdomen and pelvis were performed following the use of intravenous contrast. A dose lowering technique was utilized adhering to the principles of ALARA. COMPARISON STUDY: Abdomen and pelvis CT 06/13/2022. FINDINGS: There is a large hiatus hernia containing the majority of the stomach which extends towards the left hemithorax. This remains unchanged. Mild dependent changes seen within the lungs. No pneumoperitoneum. No pneumatosis. No acute fractures identified. There is a 4 cm duodenal diverticulum again noted. The liver, gallbladder, spleen, and adrenal glands are unremarkable. Mild bilateral cortical renal thinning. A 5 mm hypodense lesion within the right kidney. This is too small to characterize but favors a cyst. No ureteral stones. No hydronephrosis. The main portal vein is patent. Mildly ectatic abdominal aorta with moderate calcified plaque. No retroperitoneal lymphadenopathy. Normal bladder. No pelvic free fluid. Extensive colonic diverticulosis. There is an inflamed diverticulum at the junction of the descending colon/sigmoid colon with adjacent fat stranding consistent with an acute diverticulitis. This is best seen on image 277. There is also mild pericolonic fat stranding and thickening within the mid sigmoid colon which could represent an additional site of acute diverticulitis or a superimposed colitis. There is focal thickening and adjacent inflammatory change at the terminal ileum with multiple diverticula. This also likely represents an acute diverticulitis. No dilated loops of bowel to suggest an obstruction. Fluid-filled colon is noted. This suggests a diarrheal illness. Normal appendix. There is a 7 mm hypodense lesion within the tail the pancreas on image 117. 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 No perforation or abscess identified. IMPRESSION: 1. There is an inflamed diverticulum at the junction of the descending colon/sigmoid colon with adjacent fat stranding consistent with an acute diverticulitis. 2. There is also mild pericolonic fat stranding and thickening within the mid sigmoid colon which could represent an additional site of acute diverticulitis or a superimposed colitis. 3. There is focal thickening and adjacent inflammatory change at the terminal ileum with multiple diverticula. This also likely represents an acute diverticulitis. 4. No dilated loops of bowel to suggest an obstruction. Fluid-filled colon is noted. This suggests a diarrheal illness. . 5. Large hiatus hernia again noted. ACT 112: Negative or not required by law. Electronically signed by: Nathan Bland M.D. 07/05/2022 1:52 PM Supervising Physician Co-Signing Physician Notes I have seen and examined the patient and have discussed the case with the provider above. I agree with the assessment and plan as stated with the following exceptions. The patient is an 87-year-old man with a history of diverticulosis who is also on apixaban for atrial fibrillation, presenting for lightheadedness and weakness. He reports this has been going on for some time now and became worse in the last couple of days. At baseline he is able to transfer independently but mostly uses a wheelchair to get around. He is now unable to stand. He does report bright red blood in the toilet after bowel movements periodically. He reports several days of constipation and feels better after having a bowel movement here today in the ER after Dulcolax. His abdominal discomfort is improved but is present in the left lower side. He denies any urinary symptoms recently. He denies any fevers or chills. A previous CT scan of the abdomen in mid May revealed a high diverticulosis burden. This patient had also seen gastroenterology in the last couple of weeks regarding his rectal bleeding. On physical exam blood pressure is low normal. Heart rate is normal but he is also on both carvedilol and sotalol. He is in no acute distress. Abdomen is soft nontender nondistended. He has trace edema in his lower extremities. Pulmonary auscultation is clear bilaterally. Work-up reveals an increased white blood cell count of 24,000 and H&H of 7 and 23. Normal MCV. Normal platelet count. He has an elevated reticulocyte count at 3.8. Notably H&H was 15/46 approximately 3 weeks ago. A left shift is present on differential. Peripheral smear and haptoglobin, pending chemistry panel is within normal limits. Lactate is 1.6. Iron saturation is 4% indicative of iron deficiency. LFTs are normal. He has an elevated troponin at 182 and a BNP of 573. No baseline is available for review. Lipase is 9 and procalcitonin slightly elevated at 1.15. There is a possible UTI present. A CT of the abdomen pelvis with IV contrast reveals evidence of diverticulitis at the junction of the descending colon/sigmoid colon. There is an additional site of diverticulitis in the mid sigmoid colon as well as in the terminal ileum with multiple diverticula. He is a fluid-filled colon suggestive of diarrheal illness. Large hiatal hernia also noted. Head CT revealed no acute intracranial findings. Chest x-ray revealed no acute process. He received 1 unit of PRBCs. Prior to receiving that his H&H had come back at 6.3/20.8. Posttransfusion H&H was 8.1/26.2. 1. Acute lower GI bleeding with acute blood loss anemia with iron deficiency, on anticoagulation 2. Acute diverticulitis 3. Possible urinary tract infection 4. Atrial fibrillation 5. Elevated troponin Anemia has been addressed with the transfusion of blood this evening. No further transfusions are planned and will trend H&H again in the morning. He is hemodynamically stable but blood pressure is on the soft side. Continue to monitor closely in PCU. Continue broad-spectrum antibiotics for acute diverti culitis/possible UTI. Narrow spectrum pending culture results and clinical improvement. Agree with holding apixaban and continuing aspirin given history of stent in the past. He does have concerning findings on his EKG although is not presenting like ACS. These dynamic EKG changes may be indicative of demand ischemia. Echo is pending. Consulting cardiology for assistance. For now we cannot medically treat him with any anticoagulant given his active bleeding. Appreciate definitive management recommendations from GI for treatment of his anemia. DO Wilfred
--- NOTE | 2022-07-05 15:20 | Electrocardiogram Report ---
Test Reason : Blood Pressure : / mmHG Vent. Rate : 099 BPM Atrial Rate : 136 BPM P-R Int : 000 ms QRS Dur : 098 ms QT Int : 314 ms P-R-T Axes : 000 000 167 degrees QTc Int : 402 ms Poor data quality, interpretation may be adversely affected Sinus rhythm with frequent Premature atrial complexes Abnormal ECG When compared with ECG of 28-NOV-2018 08:51, T wave inversion more evident in Lateral leads Confirmed by Ramy Mack ([id number]) on 07/05/2022 3:20:40 PM Referred By: REFERRED SELF Confirmed By:Ramy Mack
[2022-07-05 16:31] LABS: Hematocrit (blood only) 20.8 % (42.0-52.0); Hemoglobin 6.3 g/dl (14.0-18.0); Reticulocyte % 3.8 % (0.5-2.0); Reticulocytes # 0.09 10^6/uL (0.02-0.10)
[2022-07-05] MEDS ORDERED: GLUCOSE 10 TAB/TUBE PO PRN (17:44)
[2022-07-05] MEDS ORDERED: DEXTROSE 50% 50 ML SYRINGE IV PRN (17:44)
[2022-07-05] MEDS ORDERED: GLUCOSE 40% GEL 15 GM TUBE PO PRN (17:44)
[2022-07-05] MEDS ORDERED: CARBOHYDRATES FOR HYPOGLYCEMIA PO PRN (17:44)
[2022-07-05] MEDS ORDERED: GLUCAGON FOR INJ 1 MG VIAL SQ PRN (17:44)
[2022-07-05] MEDS ORDERED: ALBUTEROL HFA 8 GM INHALER INH PRN (17:48)
[2022-07-05] MEDS: INSULIN ASPART PER UNIT CHARGE SC SCH ×2 (18:02→20:35)
[2022-07-05 20:01] LABS: Hematocrit (blood only) 26.2 % (42.0-52.0); Hemoglobin 8.1 g/dl (14.0-18.0)
[2022-07-05] MEDS: PIPERACILLIN/TAZOBACTAM 4.5 GM in DEXTROSE 5% 100 ML IV SCH (20:28)
[2022-07-05] MEDS: carvediloL 12.5 MG TAB PO SCH (20:28)
[2022-07-05] MEDS: predniSONE 5 MG TAB PO SCH (20:29)
[2022-07-05] MEDS: SOTALOL HCL 80 MG TAB PO SCH (20:30)
[2022-07-06] MEDS: PIPERACILLIN/TAZOBACTAM 4.5 GM in DEXTROSE 5% 100 ML IV SCH ×3 (05:06→21:02)
[2022-07-06 05:49] LABS: Basophils # (auto) 0.02 K/uL (0-0.2); Basophils % (auto) 0.2 %; Eosinophils # (auto) 0.01 K/uL (0-0.50); Eosinophils % (auto) 0.1 %; Hematocrit (blood only) 22.5 % (42.0-52.0); Lymphocytes # (auto) 0.43 K/uL (1.2-3.4); Lymphocytes % (auto) 4.4 %; Mean Corpuscular Hemoglobin 27.6 pg (25.0-34.0); Mean Corpuscular Hgb Conc 31.1 g/dL (32.0-36.0); Mean Corpuscular Volume 88.6 fL (80.0-100.0); Monocytes # (auto) 0.74 K/uL (0.11-0.59); Monocytes % (auto) 7.6 %; Neutrophils # (auto) 8.43 K/uL (1.40-6.50); Neutrophils % (auto) 86.7 %; Platelet Count 147 K/uL (130-400); RDW Coefficient of Variation 15.6 % (11.5-14.5); RDW Standard Deviation 50.9 fL (36.4-46.3); Red Blood Count 2.54 M/uL (4.70-6.10); White Blood Count 9.73 K/ul (4.8-10.8)
[2022-07-06 06:03] LABS: Albumin Globulin Ratio 1.2 (0.9-2); Albumin Level 2.7 gm/dl (3.4-5.0); BUN Creatinine Ratio 20.5 (10-20); Bilirubin,Total 0.6 mg/dl (0.2-1.0); Creatinine Clr Calc Pharmacy 67.6 ml/min; Est GFR (African American) 88.9 ml/min; Est GFR (Non-African American) 76.7 ml/min; Globulin 2.3 gm/dl (2.5-4.0); Potassium 3.9 mmol/L (3.5-5.1)
[2022-07-06 06:33] LABS: Polychromasia 1+; Tear Drop Cells 1+
--- NOTE | 2022-07-06 08:45 | Cardiology Consultation ---
Date of Consultation July 06, 2022 Assessment & Plan (1) Lower GI bleed: (2) Symptomatic anemia: (3) Diverticulitis: (4) Elevated troponin: (5) Chronic diastolic heart failure: (6) CAD (coronary artery disease): (7) Paroxysmal atrial fibrillation: Plan IMPRESSION: 87 year old male with symptomatic anemia secondary to lower GIB in the setting of acute diverticulitis. Hemoglobin 7.0 after x1 unit of PRBCs. No further episodes of BRBPR, per patient/nursing. HS troponin elevated but trending downward. EKG with lateral T-wave inversions, similar to outpatient EKG dated 04/2022. Echo showing a preserved LVEF without new WMA. Mild MR- unchanged from prior outpatient echo dated 2020 PLAN: -HS trop elevated, but trending downward. EKG stable. Echo without WMA, patient without CP/SOB improved- elevated trops likely in the setting of demand ischemia given significant anemia. This is unlikely to represent ACS. Would recommend treating underlying anemia at this time. Okay to continue to hold Eliquis- nursing home use of AC will need to be reassessed prior to discharge. -Patient appears generally well compensated from a cardiology standpoint. Mild pedal edema noted- Lasix currently held due to lower BPs thru the day. If a second unit of PRBCs is given, would recommend restarting Lasix at that time. Patient normally maintained on 40 mg PO daily. -If hypotension persists can consider reduction in Imdur. -Strict I&Os, daily weights, low sodium diet. -No PAF seen on tele, continue sotalol 40 mg BID -Agree with GI consult for GIB. Case discussed with Dr. Sierra- will follow. Supervising Physician Co-Signing Physician Notes I have reviewed the advance practitioner documentation and agree. I saw and evaluated the patient on the date of service referenced in the note and have performed a medically appropriate history and or exam. The patient is to undergo bleeding scan. We will continue to follow. History of Present Illness Reason for Consultation: Elevated troponin with abnormal EKG Requesting Physician: Yohana campbell Attending Physician: Eugenia Baptiste MD History of Present Illness 87-year-old male who initially presented to [facility] emergency department due to lightheadedness and generalized weakness. Was having bright red blood per rectum x3 weeks per the patient. Lab work showed Hemoglobin low at 6.3/7 (baseline around 15 per chart review) CT of the abdomen showed an inflamed diverticulum consistent with acute diverticulitis and/or superimposed colitis. Eliquis held and patient was given 1 unit of PRBCs (7.0 hgb this am) CXR: Unremarkable. EKG 07/05: Sinus rhythm with frequent PACs and T wave inversion in lateral leads- Slightly more pronounced compared to EKG dated 04/2022 in the outpatient setting. High-sensitivity troponin elevated (182.0>>135.2>>148.8>>111.3) Echo: LVEF 60-65%, no WMA, moderate concentric LVH, mild MR, no pericardial effusion- stable compared to 2020 echo 07/06: Upon entrance into the room patient resting comfortably in bed. Nurse at bedside. Patient in no acute distress. Denies any chest pain, shortness of breath improved since receiving blood transfusion. Occasional palpitations, unchanged from baseline. Feels less weak, but has not been out of bed. No lightheadedness/syncope. Tele: NSR with PACs 70-80s, short burst of PAT at ~0802 this am. I&O: 949 mL Weight: 106.7 kg Outpatient primary sales operations associate: Dr. Haines Past medical history: Chronic diastolic CHF Paroxysmal A-fib, maintaining sinus rhythm on sotalol (40 mg BID) and anticoagulated with Eliquis Palpitations secondary to since PVC Coronary artery disease, history of NSTEMI in 2011, status post stent placement in LAD History of atypical nonexertional chest discomfort Dyslipidemia Hypertension with moderate concentric LVH Mild aortic sclerosis, no stenosis- mild AI Chronic small posterior loculated pericardial effusion with marked fibrous stands, per outpatient echo 01/2021 CKD stage III- follows with Dr. Rodríguez COPD GERD DM Type II Inflammatory polyarthritis on chronic prednisone Monoclonal paraproteinemia- follows with Dr. Man squires Allergies Allergy/AdvReac Type Severity Reaction Status Date / Time atenolol Allergy Unknown PT WAS Verified 07/05/22 15:15 TOLD NEVER TO TAKE AGAIN candesartan [From Atacand] AdvReac Intermediate HYPERKALEMI Verified 07/05/22 15:15 A lisinopril AdvReac Intermediate INCREASED Verified 07/05/22 15:15 CREATININE/HYPOTENSION Home Medications Medication Instructions Recorded Confirmed Type albuterol sulfate 90 mcg/actuation 1 inh inhalation .Q4-6HR PRN 06/04/18 07/05/22 History breath activated powder inhaler Shortness Of Breath aspirin 81 mg tablet,delayed 81 mg PO QAM 06/04/18 07/05/22 History release atorvastatin 80 mg tablet 80 mg PO QAM 06/04/18 07/05/22 History furosemide 40 mg tablet 40 mg PO QAM 06/04/18 07/05/22 History coenzyme Q10 200 mg capsule 400 mg PO DAILY 09/03/18 07/05/22 History multivitamin-ferrous 1 tab PO DAILY 09/03/18 07/05/22 History fumarate-folic acid 18 mg-400 mcg tablet (Centrum) apixaban 5 mg tablet (Eliquis) 5 mg PO BID 06/13/22 07/05/22 History carvedilol 12.5 mg tablet 12.5 mg PO BID 06/13/22 07/05/22 History empagliflozin 10 mg tablet 10 mg PO QAM 06/13/22 07/05/22 History (Jardiance) glipizide 2.5 mg tablet, extended 2.5 mg PO QAM 06/13/22 07/05/22 History release 24 hr isosorbide mononitrate 60 mg 60 mg PO QAM 06/13/22 07/05/22 History tablet,extended release 24 hr linagliptin 5 mg tablet (Tradjenta) 5 mg PO QAM 06/13/22 07/05/22 History loperamide 2 mg capsule 2 mg PO QID PRN Diarrhea 06/13/22 07/05/22 History nitroglycerin 0.4 mg sublingual 0.4 mg sublingual DIRECTED PRN 06/13/22 07/05/22 History tablet Chest Pain prednisone 5 mg tablet 5 mg PO BID 06/13/22 07/05/22 History sotalol 80 mg tablet 40 mg PO BID 06/13/22 07/05/22 History terazosin 2 mg capsule 2 mg PO HS 06/13/22 07/05/22 History furosemide 40 mg tablet 20 mg PO QPM 07/05/22 07/05/22 History Patient History Medical History Atrial fibrillation BPH (benign prostatic hyperplasia) CAD (coronary artery disease) 2012 - MARY to LAD Cardiac murmur Chronic back pain Chronic renal disease, stage III FOLLOWS W/ DR. 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) Myocardial Infarction 2012 Non-ST elevation (NSTEMI) myocardial infarction Osteoarthritis Scoliosis Seronegative arthritis Surgical History History of cataract surgery RIGHT History of heart artery stent History of tooth extraction Family History Mother Coronary heart disease, Onset Age: 63 of [place] CHF (congestive heart failure) Myocardial infarction Father CHF (congestive heart failure) Pneumonia Sister Coronary heart disease History of CABG Rheumatic heart disease Social History Smoking Status: Never smoker Second Hand Exposure: Yes ( A CHILD); Hx Alcohol Use: No Hx Substance Use: No Preferred Language: American Communication Ability: Effective 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 Beliefs That Will Affect Care: None marital status: / Current Living Situation: Alone Feels Safe at Home: Yes Safety Concerns: Feels Safe At This Time Assistive Devices: Denture - Upper, Denture - Lower, Glasses and Walker Review of Systems Review of Systems: All systems reviewed & are unremarkable except as noted in HPI & below Physical Exam Constitutional: WD/WN, vitals as above no acute distress Eyes: PERRL, conjunctivae normal, anicteric sclerae Neck: normal visual inspection and trachea midline Respiratory: normal respiratory effort, lungs clear to auscultation Cardiovascular: RRR, no murmur, no edema Heart Sounds: normal S1 and normal S2; no murmur Vessels: no JVD Extremities: + pedal edema (+1 BL) Gastrointestinal (Abdomen): normal bowel sounds, soft, nontender, no hepatosplenomegaly Skin: no rashes, warm and dry Psychiatric: A+Ox3, euthymic affect Results & Data Vital Signs (Past 12 Hours) Vital Signs Temp Pulse Pulse Resp BP Pulse Ox O2 Del Method 07/06/22 07:35 73 07/06/22 03:00 37.0 C 77 18 112/70 97 Room Air 07/06/22 01:23 72 07/05/22 23:00 37.3 C 81 18 144/80 H 97 Room Air Laboratory Results Cardiac Enzymes 07/05/22 07/05/22 07/05/22 Range/Units 11:57 12:25 15:24 AST 25 (13-39) U/L Lactate Dehydrogenase 190 (86-244) U/L Troponin I High Sens 182.0 H* (0-20) pg/ml B-Natriuretic Peptide 573 H (0-100) pg/ml 07/05/22 07/05/22 07/06/22 Range/Units 19:46 23:30 05:28 AST 26 (13-39) U/L Lactate Dehydrogenase (86-244) U/L Troponin I High Sens 135.2 H* D 148.8 H* (0-20) pg/ml B-Natriuretic Peptide (0-100) pg/ml 07/06/22 Range/Units 05:28 AST (13-39) U/L Lactate Dehydrogenase (86-244) U/L Troponin I High Sens 111.3 H* D (0-20) pg/ml B-Natriuretic Peptide (0-100) pg/ml Coagulation 07/05/22 Range/Units 12:25 B-Natriuretic Peptide 573 H (0-100) pg/ml CBC 07/05/22 07/05/22 07/05/22 Range/Units 11:57 15:24 19:46 WBC 23.77 H (4.8-10.8) K/ul RBC 2.54 L (4.70-6.10) M/uL Hgb 7.0 L 6.3 L* 8.1 L (14.0-18.0) g/dl Hct 23.1 L 20.8 L* 26.2 L (42.0-52.0) % Plt Count 198 (130-400) K/uL Neut # (Auto) 21.00 H (1.40-6.50) K/uL Lymph # (Auto) 0.86 L (1.2-3.4) K/uL Gordon # (Auto) 1.66 H (0.11-0.59) K/uL Eos # (Auto) 0.01 (0-0.50) K/uL Baso # (Auto) 0.07 (0-0.2) K/uL 07/06/22 Range/Units 05:28 WBC 9.73 D (4.8-10.8) K/ul RBC 2.54 L (4.70-6.10) M/uL Hgb 7.0 L (14.0-18.0) g/dl Hct 22.5 L (42.0-52.0) % Plt Count 147 (130-400) K/uL Neut # (Auto) 8.43 H (1.40-6.50) K/uL Lymph # (Auto) 0.43 L (1.2-3.4) K/uL Gordon # (Auto) 0.74 H (0.11-0.59) K/uL Eos # (Auto) 0.01 (0-0.50) K/uL Baso # (Auto) 0.02 (0-0.2) K/uL Comprehensive Metabolic Panel 07/05/22 07/06/22 Range/Units 11:57 05:28 Sodium 138 139 (136-145) mmol/L Potassium 4.0 3.9 (3.5-5.1) mmol/L Chloride 105 109 H (98-107) mmol/L Carbon Dioxide 24 24 (21-32) mmol/L BUN 23 18 (6-23) mg/dl Creatinine 0.90 0.88 (0.6-1.4) mg/dl Glucose 186 H 117 H (70-99(Fasting)) mg/dl Calcium 8.8 8.0 L (8.6-10.3) mg/dl Direct Bilirubin 0.2 (0-0.2) mg/dl AST 25 26 (13-39) U/L ALT 16 16 (7-52) U/L Alkaline Phosphatase 39 36 (34-104) U/L Total Protein 5.7 L 5.0 L (6.0-8.3) gm/dl Albumin 3.2 L 2.7 L (3.4-5.0) gm/dl Intake and Output 07/05/22 07/06/22 07/06/22 22:59 06:59 14:59 Intake Total 580 / 950 120 / 950 Output Total Balance 579 / 949 120 / 949 Intake: IV 120 / 490 120 / 490 Piperacillin/Tazobactam 4.5 gm 120 / 120 In 120 ml @ 240 mls/hr IV NOW ONE Rx#:[id number] Piperacillin/Tazobactam 4.5 gm 120 / 120 In Dextrose 5% 100 ml @ 30 mls/ hr IV Q8H [facility] Rx#:[id number] Oral 150 / 150 Intake (Blood Product) Amt 310 / 310 Packed Cells, Leukoreduced 310 / 310 Unit [id number] Output: # Bowel Movements Other: # Unmeasured Voids 2 Weight 106.7 kg Weight Measurement Method Built in [facility]
[2022-07-06] MEDS ORDERED: ASPIRIN 81 MG ECTAB PO SCH (09:00)
[2022-07-06] MEDS: SOTALOL HCL 80 MG TAB PO SCH ×2 (09:02→21:14)
[2022-07-06] MEDS: ISOSORBIDE MONO EXTENDED REL 60 MG TABCR PO SCH (09:02)
[2022-07-06] MEDS: carvediloL 12.5 MG TAB PO SCH ×2 (09:02→21:11)
[2022-07-06] MEDS: ATORVASTATIN 40 MG TAB PO SCH (09:02)
--- NOTE | 2022-07-06 09:02 | Electrocardiogram Report ---
Test Reason : Blood Pressure : / mmHG Vent. Rate : 075 BPM Atrial Rate : 075 BPM P-R Int : 200 ms QRS Dur : 104 ms QT Int : 422 ms P-R-T Axes : 015 005 139 degrees QTc Int : 471 ms Sinus rhythm with Premature atrial complexes T wave abnormality, consider lateral ischemia Abnormal ECG When compared with ECG of 05-JUL-2022 11:55, HR has decreased by 24 bpm Otherwise no significant change Confirmed by Ramy Makc ([id number]) on 07/06/2022 9:02:04 AM Referred By: REFERRED SELF Confirmed By:Ramy Mack
[2022-07-06] MEDS: predniSONE 5 MG TAB PO SCH ×2 (09:03→21:13)
[2022-07-06] MEDS: INSULIN ASPART PER UNIT CHARGE SC SCH ×4 (09:07→21:05)
[2022-07-06] MEDS ORDERED: SODIUM CHLORIDE 0.9% 250 ML IV PRN (09:07)
--- NOTE | 2022-07-06 09:43 | Gastrointestinal Consultation ---
Date of Consultation July 06, 2022 Assessment & Plan (1) Symptomatic anemia: (2) Diverticulitis: Pt is a 87 yo male who is admitted with symptomatic anemia, improved w 1U PRBC transfusion overnight. He is on Eliquis for Afib. Hx of rectal bleeding over 2 weeks ago, seen in the ED. At that time not anemic and CT showed diverticuli wo inflammation/infection. He hasn't had rectal bleeding for about [address] on admission did show multiple areas of diverticulitis, ? colitis, large hiatal hernia. - Check stool cx and Cdiff. - Monitor blood ct and transfuse prn - Obtain tagged RBC scan to r/o source of GI bleeding (diverticular vs. Gregorio's ulcer related to large hiatal hernia) - Eval for possible hemolysis, ? bleeding around hip s/p injection - Antibx for diverticulitis for 10 days total - Advance diet as tolerated - Pt and family would like to defer endoscopic interventions Supervising Physician Co-Signing Physician Notes I saw and evaluated the patient. We were consulted for a history of hematochezia and imaging findings patient had been seen in our office in the recent past and after the family had elected to not undergo a colonoscopy for evaluation. Of note the patient last had hematochezia approximately 10 days did have a recent injection therapy into his right hip. Physical examination Pallor of skin noted No abdominal mass noted impression Patient presents with worsening anemia in the setting of diverticulitis on CT scan. As the patient has no evidence of overt bleeding, emergent endoscopy is probably not needed. Furthermore, the patient and his family are against endoscopic evaluation for the present time. The patient does have a large hiatal hernia thus we would recommend use of a proton pump inhibitor once daily, Carafate twice daily in addition to use of an iron supplement. Finally would consider further evaluation for other causes of anemia such as hemolysis or alternate bleeding sites. Call with any additional questions or concerns, GI to sign off History of Present Illness Reason for Consultation: Diverticulitis, LGIB Requesting Physician: Dr. Eugenia Baptiste Attending Physician: Dr. Patrick Wesley History of Present Illness Patient is 87 y/o M with PMH DM II, CAD, atrial fibrillation anticoagulated on Eliquis, chronic diastolic heart failure, CKD III, HTN, HLD, BPH, inflammatory polyarthritis on chronic prednisone, monoclonal paraproteinemia presented to ER yesterday with complaint of lightheadedness and generalized weakness. Upon evaluation, he was found to have leukocytosis w WBC of 23, anemia w Hgb of 6.5. CT abdomen and pelvis showed multiple areas in the colon which has diverticulitis versus colitis. There fluid stools in the colon suggesting diarrheal illness. There is also a large hiatal hernia. Pt had hx of rectal bleeding about 2 weeks ago for which she was seen in our ER. At that point hemoglobin was 15, CT abdomen and pelvis showed diverticuli but no diverticulitis. He was seen by myself in outpatient GI clinic. At that point we had discussed about possibly getting colonoscopy evaluation but patient and his family would like to defer this. I have recommended that patient's start Metamucil daily, he tried this and states that he was feeling somewhat constipated and started taking MiraLAX plus Dulcolax. He had a large bowel movement yesterday which was without any blood per his son's account. In fact, pt and son (Vinod) confirmed that pt hasn't had rectal bleeding for about 1 week now. Patient did mention that he had a shot in his hip about a week ago which caused quite a bit of pain. However in speaking with his son did not notice any large bruising in that area. Allergies Allergy/AdvReac Type Severity Reaction Status Date / Time atenolol Allergy Unknown PT WAS Verified 07/05/22 15:15 TOLD NEVER TO TAKE AGAIN candesartan [From Atacand] AdvReac Intermediate HYPERKALEMI Verified 07/05/22 15:15 A lisinopril AdvReac Intermediate INCREASED Verified 07/05/22 15:15 CREATININE/HYPOTENSION Home Medications Medication Instructions Recorded Confirmed Type albuterol sulfate 90 mcg/actuation 1 inh inhalation .Q4-6HR PRN 06/04/18 07/05/22 History breath activated powder inhaler Shortness Of Breath aspirin 81 mg tablet,delayed 81 mg PO QAM 06/04/18 07/05/22 History release atorvastatin 80 mg tablet 80 mg PO QAM 06/04/18 07/05/22 History furosemide 40 mg tablet 40 mg PO QAM 06/04/18 07/05/22 History coenzyme Q10 200 mg capsule 400 mg PO DAILY 09/03/18 07/05/22 History multivitamin-ferrous 1 tab PO DAILY 09/03/18 07/05/22 History fumarate-folic acid 18 mg-400 mcg tablet (Centrum) apixaban 5 mg tablet (Eliquis) 5 mg PO BID 06/13/22 07/05/22 History carvedilol 12.5 mg tablet 12.5 mg PO BID 06/13/22 07/05/22 History empagliflozin 10 mg tablet 10 mg PO QAM 06/13/22 07/05/22 History (Jardiance) glipizide 2.5 mg tablet, extended 2.5 mg PO QAM 06/13/22 07/05/22 History release 24 hr isosorbide mononitrate 60 mg 60 mg PO QAM 06/13/22 07/05/22 History tablet,extended release 24 hr linagliptin 5 mg tablet (Tradjenta) 5 mg PO QAM 06/13/22 07/05/22 History loperamide 2 mg capsule 2 mg PO QID PRN Diarrhea 06/13/22 07/05/22 History nitroglycerin 0.4 mg sublingual 0.4 mg sublingual DIRECTED PRN 06/13/22 07/05/22 History tablet Chest Pain prednisone 5 mg tablet 5 mg PO BID 06/13/22 07/05/22 History sotalol 80 mg tablet 40 mg PO BID 06/13/22 07/05/22 History terazosin 2 mg capsule 2 mg PO HS 06/13/22 07/05/22 History furosemide 40 mg tablet 20 mg PO QPM 07/05/22 07/05/22 History Patient History Medical History Atrial fibrillation BPH (benign prostatic hyperplasia) CAD (coronary artery disease) 2011 - [facility] to [facility] Cardiac murmur Chronic back pain Chronic renal disease, stage III FOLLOWS W/ DR. 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) Myocardial Infarction 2011 Non-ST elevation (NSTEMI) myocardial infarction Osteoarthritis Scoliosis Seronegative arthritis Surgical History History of cataract surgery RIGHT History of heart artery stent History of tooth extraction Family History Mother Coronary heart disease, Onset Age: 63 of [place] CHF (congestive heart failure) Myocardial infarction Father CHF (congestive heart failure) Pneumonia Sister Coronary heart disease History of CABG Rheumatic heart disease Social History Smoking Status: Never smoker Second Hand Exposure: Yes ( A CHILD); Hx Alcohol Use: No Hx Substance Use: No Preferred Language: Greek Communication Ability: Effective 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 Beliefs That Will Affect Care: None marital status: / Current Living Situation: Alone Feels Safe at Home: Yes Safety Concerns: Feels Safe At This Time Assistive Devices: Walker Review of Systems Review of Systems: All systems reviewed & are unremarkable except as noted in HPI & below Physical Exam Constitutional: WD/WN, vitals as above well groomed, cooperative and comfortable Eyes: PERRL, conjunctivae normal, anicteric sclerae ENMT: external ear and nose normal, oropharynx normal Respiratory: normal respiratory effort, lungs clear to auscultation Cardiovascular: RRR, no murmur, no edema Gastrointestinal (Abdomen): normal bowel sounds, soft, nontender, no hepatosplenomegaly Skin: no rashes, warm and dry no jaundice Psychiatric: A+Ox3, euthymic affect Lymphatic: no lymphedema Results & Data Vital Signs (Past 12 Hours) Vital Signs Temp Pulse Pulse Resp BP Pulse Ox O2 Del Method 07/06/22 08:41 36.6 C 86 18 148/72 H 96 Room Air 07/06/22 07:35 73 07/06/22 03:00 37.0 C 77 18 112/70 97 Room Air 07/06/22 01:23 72 07/05/22 23:00 37.3 C 81 18 144/80 H 97 Room Air
--- NOTE | 2022-07-06 13:24 | Nuclear Medicine Report ---
TAGGED RED BLOOD CELL GI BLEEDING SCAN CLINICAL HISTORY: Suspected lower GI bleed. COMPARISON STUDY: CT of the abdomen and pelvis July 05, 2022 TECHNIQUE: Following the IV administration of 25.5 mCi of technetium 99m UltraTag labeled red blood c ells, nuclear bleeding scan was performed. Anterior flow images were obtained every 2 seconds for a t otal 48 seconds. Anterior static images were obtained every 5 minutes for a total of 60 minutes. FINDINGS: Normal radiotracer distribution is noted. There are no foci of abnormal radiotracer deposi tion to suggest active GI bleed during this 60 minute examination. IMPRESSION: No evidence for active GI bleed during this 60 minute study. ACT 112: Negative or not required by law. Electronically signed by: Marcial Quintero M.D. 07/06/2022 1:23 PM
--- NOTE | 2022-07-06 15:04 | Hospitalist Progress Note ---
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 Patient also reported rectal bleeding. Patient is being managed for the following: Symptomatic anemia/likely iron deficiency and anemia: Iron level less than 10, ferritin 46.8. Patient is receiving blood products. Repeat iron studies in 3 months. B12 and folate level in AM. Likely lower GI bleed Diverticulitis: Admitting WBC elevated at 23.77 K, procalcitonin elevated at presentation. Patient presents with generalized weakness. Admitting hemoglobin of 7.0, which dropped to 6.3 in few hours. Baseline hemoglobin around 14-15. Admitting CTAP suggestive of descending colon/sigmoid colon diverticulitis Status post 1 unit PRBC, hemoglobin today morning 7.0, patient with no further bowel movement while in hospital, will transfuse 1 more unit of blood. Repeat H&H at 5 PM, follow-up. Transfusion of PRBC for hemoglobin less than 7.5 or symptomatic anemia. Hold Eliquis. Reticulocyte slightly elevated, haptoglobin pending, follow-up. Total bili WNL. GI on board, on clear liquid diet, advance as tolerated. Recommending stool PCR and tagged RBC scan. Continue with Zosyn /. Patient reports improving RLQ pain. WBC trended down, afebrile. Stool PCR and C. difficile pending. Tagged RBC scan negative. Likely type II NSTEMI: Troponin elevated at presentation, flat trended. No chest pain. Continue telemetry monitoring. Echo reviewed. Cardiology on board, appreciate recommendation. Peripheral body smear with findings c onsistent with leukocytosis and normocytic anemia. MGUS (monoclonal gammopathy of unknown significance): Follows with hematology, Dr. Conway. Acute anemia as noted above. Baseline hemoglobin 15. Peripheral blood smear with findings consistent with leukocytosis and normocytic anemia. (6) CAD (coronary artery disease): History NSTEMI 2011 s/p MARY to [facility]. (7) Hypertension: Soft to hypertensive. Continue carvedilol with holding parameters. (8) Chronic diastolic CHF (congestive heart failure): History echo 01/31/2021: EF: 65%, grade 1 diastolic dysfunction, mild aortic valve sclerosis without stenosis, mild AR, small posterior loculated pericardial effusion present On chronic Lasix Lasix on hold due to soft BP, reevaluate daily to resume Lasix. Monitor for volume status. (9) Diabetes mellitus, type 2: A1c: 8.5 on 06/15/2022. Sliding scale insulin. (10) Atrial fibrillation: Anticoagulated on Eliquis. Eliquis on hold due to anemia. Continue with carvedilol, sotalol. (11) Chronic renal disease, stage III: Baseline hemoglobin 0.6-0.8 per outpatient chart review. Continue to monitor. (12) BPH (benign prostatic hyperplasia): Hold terazosin for now (13) Inflammatory polyarthropathy: On chronic prednisone, continue. DVT Prophylaxis: SCDs Full Code Follows with Dr Dowd for routine care Admission and Anticipated Discharge Date Admission Date: July 05, 2022 Subjective Patient seen and examined at bedside as a follow-up for symptomatic anemia, likely lower GI bleed, diverticulitis, likely NSTEMI type II. Patient was sitting up in bed, on room air, NAD, reports no further bowel movement while in the hospital, he is on clear liquid diet, reports improving right lower quadrant belly pain, denies fever/chills/chest pain/sore throat/other review of symptoms. Physical Exam Physical Exam: GENERAL: Alert and oriented x3. NAD, on RA. HEENT: No pallor, no icterus. Pupils equal, round and reactive to light. Oral mucosa moist. NECK: No JVD, no neck masses. HEART: S1 and S2 heard. Regular rate and rhythm. + murmur, no gallop. RESPIRATORY SYSTEM: Normal AP diameter. No accessory muscle use. No wheezing, no crackles. ABDOMEN: Soft, bowel sounds present, minimal RLQ tender, no distention. CENTRAL NERVOUS SYSTEM: No facial droop. Speech is clear. Obeys simple commands. Moves extremities. EXTREMITIES: No edema, no erythema seen. Results & Data Results & Data Vital Signs (Past 12 Hours) Vital Signs Temp Pulse Pulse Resp BP BP Pulse Ox 07/06/22 13:21 36.8 C 07/06/22 12:48 36.8 C 86 16 100/51 L 97 07/06/22 11:48 70 14 100/52 L 95 07/06/22 11:18 36.7 C 68 16 94/58 L 95 07/06/22 11:03 77 18 98/59 L 97 07/06/22 10:47 36.8 C 70 18 94/56 L 97 07/06/22 08:41 36.6 C 86 18 148/72 H 96 07/06/22 07:35 73 07/06/22 03:00 37.0 C 77 18 112/70 97 O2 Del Method 07/06/22 13:21 07/06/22 12:48 07/06/22 11:48 07/06/22 11:18 07/06/22 11:03 07/06/22 10:47 07/06/22 08:41 Room Air 07/06/22 07:35 07/06/22 03:00 Room Air
[2022-07-06] MEDS: FERROUS SULFATE 325 MG/7.4 ML UDP PO SCH (16:45)
[2022-07-06 17:59] LABS: Hematocrit (blood only) 25.6 % (42.0-52.0)
[2022-07-06] MEDS: SUCRALFATE 1 GM/10 ML UDC PO SCH (21:10)
[2022-07-06] MEDS: PANTOprazole 40 MG TAB PO SCH (21:12)
[2022-07-06 21:37] LABS: Adenovirus F 40/41 PCR Not Detected (NotDetected); Astrovirus PCR Not Detected (NotDetected); Campylobacter PCR Not Detected (NotDetected); Cryptosporidium PCR Not Detected (NotDetected); Cyclospora cayetanensis PCR Not Detected (NotDetected); Entamoeba histolytica PCR Not Detected (NotDetected); Enteroaggregative E.coli(EAEC) Not Detected (NotDetected); Enteropathogenic E.coli (EPEC) Not Detected (NotDetected); Enterotoxigenic E.coli (ETEC) Not Detected (NotDetected); Giardia lamblia PCR Not Detected (NotDetected); Norovirus GI/GII PCR Not Detected (NotDetected); Plesiomonas shigelloides PCR Not Detected (NotDetected); Rotavirus A PCR Not Detected (NotDetected); Salmonella PCR Not Detected (NotDetected); Sapovirus PCR Not Detected (NotDetected); Shiga-like Toxin E.coli (STEC) Not Detected (NotDetected); Shigella/Enteroinvasive E.coli Not Detected (NotDetected); Vibrio cholerae PCR Not Detected (NotDetected); Vibrio species PCR Not Detected (NotDetected); Yersinia enterocolitica PCR Not Detected (NotDetected)
[2022-07-07] MEDS: PIPERACILLIN/TAZOBACTAM 4.5 GM in DEXTROSE 5% 100 ML IV SCH ×3 (04:32→20:07)
[2022-07-07 06:10] LABS: Hematocrit (blood only) 24.6 % (42.0-52.0); Hemoglobin 7.8 g/dl (14.0-18.0); Mean Corpuscular Hemoglobin 27.9 pg (25.0-34.0); Mean Corpuscular Hgb Conc 31.7 g/dL (32.0-36.0); Mean Corpuscular Volume 87.9 fL (80.0-100.0); Mean Platelet Volume 11.3 fL (9.4-12.4); Platelet Count 146 K/uL (130-400); RDW Coefficient of Variation 15.8 % (11.5-14.5); RDW Standard Deviation 50.9 fL (36.4-46.3); White Blood Count 8.31 K/ul (4.8-10.8)
[2022-07-07 06:24] LABS: BUN Creatinine Ratio 25.3 (10-20); Calcium 7.6 mg/dl (8.6-10.3); Creatinine Clr Calc Pharmacy 50.3 ml/min; Est GFR (African American) 82.5 ml/min; Est GFR (Non-African American) 71.2 ml/min; Magnesium 2.1 mg/dl (1.7-2.4); Phosphorus 3.2 mg/dl (2.5-4.9); Potassium 4.1 mmol/L (3.5-5.1)
--- NOTE | 2022-07-07 06:34 | Communication Note ---
Date of Service: July 07, 2022 6 30 a.m. Made aware by RN of hemoglobin of 7.8 down from 8 yesterday. Patient with 3 loose BMs overnight, last one slightly blood-tinged as per RN. RLQ pain not bad as per patient as per RN. AP Continues LGIB Hold aspirin transfuse PRBC to maintain hemoglobin above 8 Clear liquids for now Update GI if fluid worsening LGIB
[2022-07-07] MEDS ORDERED: SODIUM CHLORIDE 0.9% 250 ML IV PRN (06:35)
[2022-07-07 07:21] LABS: Vitamin B12 466 pg/ml (180-914)
[2022-07-07] MEDS ORDERED: ACETAMINOPHEN 325 MG TAB PO PRN (07:29)
[2022-07-07] MEDS: FERROUS SULFATE 325 MG/7.4 ML UDP PO SCH (08:14)
[2022-07-07] MEDS: SUCRALFATE 1 GM/10 ML UDC PO SCH ×2 (08:14→20:30)
[2022-07-07] MEDS: ISOSORBIDE MONO EXTENDED REL 60 MG TABCR PO SCH (08:15)
[2022-07-07] MEDS: SOTALOL HCL 80 MG TAB PO SCH ×2 (08:15→20:54)
[2022-07-07] MEDS: predniSONE 5 MG TAB PO SCH ×2 (08:15→20:30)
[2022-07-07] MEDS: carvediloL 12.5 MG TAB PO SCH ×2 (08:15→20:54)
[2022-07-07] MEDS: ATORVASTATIN 40 MG TAB PO SCH (08:15)
[2022-07-07] MEDS: PANTOprazole 40 MG TAB PO SCH ×2 (08:15→20:30)
[2022-07-07] MEDS: INSULIN ASPART PER UNIT CHARGE SC SCH ×4 (08:17→20:53)
--- NOTE | 2022-07-07 08:43 | Cardiology Progress Note ---
Date of Service July 07, 2022 Assessment & Plan (1) Lower GI bleed: (2) Symptomatic anemia: (3) Diverticulitis: (4) Elevated troponin: (5) Chronic diastolic heart failure: (6) CAD (coronary artery disease): (7) Paroxysmal atrial fibrillation: Plan IMPRESSION: 87 year old male with symptomatic anemia secondary to lower GIB in the setting of acute diverticulitis. Recieved total of 3 units of PRBCs HS troponin elevated but trending downward. EKG with lateral T-wave inversions, similar to outpatient EKG dated 04/2022. Echo showing a preserved LVEF without new WMA. Mild MR- unchanged from prior outpatient echo dated 2020 PLAN: -HS trop elevated, but trending downward. EKG stable. Echo without WMA, patient without CP/SOB improved- elevated trops likely in the setting of demand ischemia given significant anemia. This is unlikely to represent ACS. Would recommend treating underlying anemia at this time. Bleeding scan without active bleed. Okay to continue to hold Eliquis- longterm use of AC will need to be reassessed prior to discharge. -Patient appears hypervolemic on exam, likely due to PRBC transfusion. Patient no longer hypotensive. Restart diuretic- will give 40 mg IV Lasix today then restart home dose diuretic tomorrow (40 mg PO Lasix daily). Trend BMP and replace electrolytes to a goal potassium of 4.0 and mag of 2.0. -If hypotension returns can consider reduction in Imdur. -Strict I&Os, daily weights, low sodium diet. -No PAF seen on tele, continue sotalol 40 mg BID -Will defer to primary team/GI for management of GIB Case discussed with Dr. Sierra- no further recommendations for a cardiology standpoint. Will sign off. Admission and Anticipated Discharge Date Admission Date: July 05, 2022 Supervising Physician Co-Signing Physician Notes I have reviewed the advance practitioner documentation and agree. I saw and evaluated the patient on the date of service referenced in the note and have performed a medically appropriate history and or exam. I agree the patient needs a little Lasix today. He is got a lot of fluid including blood transfusions as diuretics were not restarted. Otherwise he is doing well. Subjective 87 year old male with symptomatic anemia secondary to lower GIB in the setting of acute diverticulitis. PRBCs infused . Hgb between 7-8 currently. HS troponin elevated but trending downward. EKG with lateral T-wave inversions, similar to outpatient EKG dated 04/2022. Echo showing a preserved LVEF without new WMA. Mild MR- unchanged from prior outpatient echo dated 2020 Per GI: Obtain tagged RBC scan to r/o source of GI bleeding (diverticular vs. Gregorio's ulcer related to large hiatal hernia), treated with antibiotics for diverticulitis. Patient and family deferred endoscopic interventions. GIB scan: IMPRESSION: No evidence for active GI bleed during this 60 minute study. Upon entrance into the room patient sitting up in bed- admits to worsening shortness of breath over night and into this am. Feet are more swollen despite compression sock use. No chest pain. No lightheadedness/dizziness. BPs improving- no further hypotension. Has received a total of 3 u PRBCs. Has not received any Lasix. Tele: NSR with PAC/PVCss 70-80s, short burst of PA overnight I&O: +2L Weight: 106.7 kg >>73.2 >> 72.6kg Review of Systems Review of Systems: All systems reviewed & are unremarkable except as noted in HPI & below Physical Exam Constitutional: WD/WN, vitals as above no acute distress Eyes: PERRL, conjunctivae normal, anicteric sclerae Neck: normal visual inspection and trachea midline Respiratory: normal respiratory effort; no labored breathing Auscultation: + crackles and + rales (BL); no rhonchi and no wheezes Cardiovascular: RRR, no murmur, no edema Heart Sounds: normal S1 and normal S2; no murmur Vessels: no JVD Extremities: + pedal edema (+2-3 BL) Gastrointestinal (Abdomen): normal bowel sounds, soft, nontender, no hepatosplenomegaly Skin: no rashes, warm and dry Psychiatric: A+Ox3, euthymic affect Results & Data Vital Signs (Past 12 Hours) Vital Signs Temp Pulse Pulse Resp BP BP Pulse Ox 07/07/22 08:23 76 16 122/61 95 07/07/22 07:53 75 18 158/82 H 96 07/07/22 07:38 36.5 C 60 18 125/71 95 07/07/22 07:31 07/07/22 07:19 36.7 C 65 20 123/76 94 07/07/22 07:06 69 07/06/22 22:00 82 07/07/22 04:33 36.6 C 77 18 135/68 93 07/06/22 23:49 36.8 C 85 20 122/66 96 07/06/22 21:09 89 117/61 O2 Del Method 07/07/22 08:23 07/07/22 07:53 07/07/22 07:38 07/07/22 07:31 Room Air 07/07/22 07:19 07/07/22 07:06 07/06/22 22:00 07/07/22 04:33 Room Air 07/06/22 23:49 Room Air 07/06/22 21:09 Laboratory Results CBC 07/06/22 07/07/22 Range/Units 17:16 05:25 WBC 8.31 (4.8-10.8) K/ul RBC 2.80 L (4.70-6.10) M/uL Hgb 8.0 L 7.8 L (14.0-18.0) g/dl Hct 25.6 L 24.6 L (42.0-52.0) % Plt Count 146 (130-400) K/uL Comprehensive Metabolic Panel 07/07/22 Range/Units 05:25 Sodium 138 (136-145) mmol/L Potassium 4.1 (3.5-5.1) mmol/L Chloride 110 H (98-107) mmol/L Carbon Dioxide 24 (21-32) mmol/L BUN 24 H (6-23) mg/dl Creatinine 0.95 (0.6-1.4) mg/dl Glucose 161 H (70-99(Fasting)) mg/dl Calcium 7.6 L (8.6-10.3) mg/dl Intake and Output 07/06/22 07/07/22 07/07/22 22:59 06:59 14:59 Intake Total 120 / 1542 342 / 1542 0 / 0 Output Total Balance 119 / 1191 342 / 1191 0 / 0 Intake: IV 120 / 360 120 / 360 Piperacillin/Tazobactam 4.5 gm 120 / 360 120 / 360 In Dextrose 5% 100 ml @ 30 mls/ hr IV Q8H [facility] Rx#:[id number] Oral 222 / 872 Intake (Blood Product) Amt 0 / 0 Packed Cells, Leukoreduced 0 / 0 Unit [id number] Output: # Bowel Movements Other: # Unmeasured Voids 1 3 Weight 72.6 kg Weight Measurement Method Standing Scale
[2022-07-07] MEDS: CYANOCOBALAMIN (B-12) 100 MCG TABLET PO SCH (09:19)
[2022-07-07] MEDS ORDERED: FUROSEMIDE 40 MG/4 ML VIAL IV STA (09:24)
[2022-07-07 14:40] LABS: Hematocrit (blood only) 27.4 % (42.0-52.0); Hemoglobin 8.7 g/dl (14.0-18.0)
--- NOTE | 2022-07-07 15:57 | Hospitalist Progress Note ---
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 Patient also reported rectal bleeding. Patient is being managed for the following: Symptomatic anemia/likely iron deficiency and anemia: Iron level less than 10, ferritin 46.8. Patient is receiving blood products. Repeat iron studies in 3 months. Folate level wnl, B12 low normal, will start B12 supplement for a month. Likely lower GI bleed Diverticulitis: Admitting WBC elevated at 23.77 K, procalcitonin elevated at presentation. Patient presents with generalized weakness. Admitting hemoglobin of 7.0, which dropped to 6.3 in few hours. Baseline hemoglobin around 14-15. Admitting CTAP suggestive of descending colon/sigmoid colon diverticulitis Status post 3 unit PRBC, hemoglobin today morning 7.8, repeat Hb in PM better at 8.7; pt had blood tinged BM overnight. Transfusion of PRBC for hemoglobin less than 8 or symptomatic anemia. Hold Eliquis/aspirin. Reticulocyte slightly elevated, haptoglobin pending, follow-up. Total bili WNL. GI on board, on clear liquid diet, advance as tolerated. Continue with Zosyn 4/5. Patient reports improving RLQ pain. WBC trended down, afebrile. Stool PCR and C. difficile pending. Tagged RBC scan negative. Likely type II NSTEMI: Troponin elevated at presentation, flat trended. No chest pain. Continue telemetry monitoring. Echo reviewed. Cardiology on board, appreciate recommendation. MGUS (monoclonal gammopathy of unknown significance): Follows with hematology, Dr. Conway. Acute anemia as noted above. Baseline hemoglobin 15. Peripheral blood smear with findings consistent with leukocytosis and normocytic anemia. (6) CAD (coronary artery disease): History NSTEMI 2011 s/p MARY to [facility]. (7) Hypertension: Soft to hypertensive. Continue carvedilol with holding parameters. (8) Chronic diastolic CHF (congestive heart failure): History echo 01/31/2021: EF: 65%, grade 1 diastolic dysfunction, mild aortic valve sclerosis without stenosis, mild AR, small posterior loculated pericardial effusion present On chronic Lasix Lasix on hold due to soft BP, reevaluate daily to resume Lasix. Monitor for volume status. (9) Diabetes mellitus, type 2: A1c: 8.5 on 06/15/2022. Sliding scale insulin. (10) Atrial fibrillation: Anticoagulated on Eliquis. Eliquis on hold due to anemia. Continue with carvedilol, sotalol. (11) Chronic renal disease, stage III: Baseline hemoglobin 0.6-0.8 per outpatient chart review. Continue to monitor. (12) BPH (benign prostatic hyperplasia): Hold terazosin for now (13) Inflammatory polyarthropathy: On chronic prednisone, continue. DVT Prophylaxis: SCDs Full Code Follows with Dr Dowd for routine care PT/OT, CM to assist, expect DC in few days pending stability of Hb; will need PO atb for diverticulitis Admission and Anticipated Discharge Date Admission Date: July 05, 2022 Subjective Patient seen and examined at bedside as a follow-up for symptomatic anemia, likely lower GI bleed, diverticulitis, likely NSTEMI type II. Patient was sitting up in bed, on room air, NAD, had few BMs overnight, last one was blood tinged, he is on clear liquid diet, reports improving right lower quadrant belly pain, denies fever/chills/chest pain/sore throat/other review of symptoms. Reports some SOB overnight and in am. Physical Exam Physical Exam: GENERAL: Alert and oriented x3. NAD, on RA. HEENT: No pallor, no icterus. Pupils equal, round and reactive to light. Oral mucosa moist. NECK: No JVD, no neck masses. HEART: S1 and S2 heard. Regular rate and rhythm. + murmur, no gallop. RESPIRATORY SYSTEM: Normal AP diameter. No accessory muscle use. No wheezing, no crackles. ABDOMEN: Soft, bowel sounds present, minimal RLQ tender, no distention. CENTRAL NERVOUS SYSTEM: No facial droop. Speech is clear. Obeys simple commands. Moves extremities. EXTREMITIES: 1+ pedal edema, no erythema seen. Results & Data Results & Data Vital Signs (Past 12 Hours) Vital Signs Temp Pulse Pulse Resp BP BP Pulse Ox 07/07/22 15:33 36.6 C 62 17 120/67 95 07/07/22 12:00 36.6 C 62 18 115/64 97 07/07/22 09:19 60 18 125/71 96 07/07/22 08:23 76 16 122/61 95 07/07/22 07:53 75 18 158/82 H 96 07/07/22 07:38 36.5 C 60 18 125/71 95 07/07/22 07:31 07/07/22 07:19 36.7 C 65 20 123/76 94 07/07/22 07:06 69 07/07/22 04:33 36.6 C 77 18 135/68 93 O2 Del Method 07/07/22 15:33 Room Air 07/07/22 12:00 Room Air 07/07/22 09:19 07/07/22 08:23 07/07/22 07:53 07/07/22 07:38 07/07/22 07:31 Room Air 07/07/22 07:19 07/07/22 07:06 07/07/22 04:33 Room Air
[2022-07-07 21:54] LABS: Hematocrit (blood only) 27.8 % (42.0-52.0); Hemoglobin 8.9 g/dl (14.0-18.0)
[2022-07-08] MEDS: PIPERACILLIN/TAZOBACTAM 4.5 GM in DEXTROSE 5% 100 ML IV SCH ×3 (04:10→20:14)
[2022-07-08 07:19] LABS: Hematocrit (blood only) 30.3 % (42.0-52.0); Hemoglobin 9.7 g/dl (14.0-18.0); Mean Corpuscular Volume 87.3 fL (80.0-100.0); Mean Platelet Volume 10.9 fL (9.4-12.4); Platelet Count 163 K/uL (130-400); RDW Coefficient of Variation 15.7 % (11.5-14.5); Red Blood Count 3.47 M/uL (4.70-6.10); White Blood Count 8.92 K/ul (4.8-10.8)
[2022-07-08 07:46] LABS: BUN Creatinine Ratio 20.8 (10-20); Calcium 7.9 mg/dl (8.6-10.3); Creatinine Clr Calc Pharmacy 66.3 ml/min; Est GFR (African American) 96.5 ml/min; Est GFR (Non-African American) 83.3 ml/min; Potassium 3.4 mmol/L (3.5-5.1)
[2022-07-08] MEDS: PANTOprazole 40 MG TAB PO SCH ×2 (07:56→20:49)
[2022-07-08] MEDS: predniSONE 5 MG TAB PO SCH ×2 (07:56→20:49)
[2022-07-08] MEDS: ATORVASTATIN 40 MG TAB PO SCH (07:57)
[2022-07-08] MEDS: SUCRALFATE 1 GM/10 ML UDC PO SCH ×2 (07:57→20:51)
[2022-07-08] MEDS: CYANOCOBALAMIN (B-12) 100 MCG TABLET PO SCH (07:57)
[2022-07-08] MEDS: FERROUS SULFATE 325 MG/7.4 ML UDP PO SCH (07:57)
[2022-07-08] MEDS: FUROSEMIDE 40 MG TAB PO SCH (07:57)
[2022-07-08] MEDS: ISOSORBIDE MONO EXTENDED REL 60 MG TABCR PO SCH (08:00)
[2022-07-08] MEDS: SOTALOL HCL 80 MG TAB PO SCH ×2 (08:00→20:48)
[2022-07-08] MEDS: carvediloL 12.5 MG TAB PO SCH ×2 (08:01→20:50)
[2022-07-08] MEDS: INSULIN ASPART PER UNIT CHARGE SC SCH ×4 (08:02→20:25)
[2022-07-08] MEDS ORDERED: FUROSEMIDE 40 MG/4 ML VIAL IV STA (12:15)
[2022-07-08] MEDS ORDERED: POTASSIUM CHLORIDE CRTAB 20 MEQ TABCR PO STA (12:16)
--- NOTE | 2022-07-08 12:20 | Cardiology Progress Note ---
Date of Service July 08, 2022 Assessment & Plan (1) Acute on chronic diastolic (congestive) heart failure: (2) Symptomatic anemia: (3) GI bleed: Plan Patient appears mildly volume overloaded likely consequence of transfusion in the setting of symptomatic anemia. Recommend additional 40 mg of intravenous furosemide today. Follow fluid balance, daily weight, GFR, and electrolytes. Anticoagulation will remain on hold. Monitor daily H&H. Admission and Anticipated Discharge Date Admission Date: July 05, 2022 Subjective Patient seen examined the bedside. Admitted with lower GI bleed and symptomatic anemia. Fluid balance positive since admission. Notes shortness of breath with exertion. Denies orthopnea or PND. No edema. Telemetry reveals sinus rhythm with PACs and PVCs. Review of Systems Review of Systems: All systems reviewed & are unremarkable except as noted in Subjective Physical Exam Constitutional: well nourished and + ill appearing; no acute distress Respiratory: no respiratory distress, no labored breathing and no retractions Auscultation: + rales (Left base); no rhonchi and no wheezes Cardiovascular: Rate/Rhythm: regular rate (With ectopy) Heart Sounds: normal S1, normal S2 and + murmur (2/6 systolic ejection murmur) Vessels: radial pulses present; no JVD and no carotid bruit Extremities: no edema Gastrointestinal (Abdomen): Inspection/Auscultation: abdomen normal to inspection and normal bowel sounds; abdomen not distended Percussion/Palpation: abdomen soft; abdomen nontender, no guarding and abdomen not rigid Neurologic: CN's II-XI intact bilaterally and moves all extremities; no focal motor deficits Motor/Sensory: no tremor Psychiatric: A+Ox3, euthymic affect Results & Data Vital Signs (Past 12 Hours) Vital Signs Temp Pulse Pulse Resp BP Pulse Ox O2 Del Method 07/08/22 07:54 69 07/08/22 07:52 36.7 C 50 L 19 133/69 98 Room Air 07/08/22 07:47 Room Air 07/08/22 07:45 57 L 07/08/22 03:20 36.6 C 61 18 159/71 H 96 Room Air Laboratory Results CBC 07/07/22 07/07/22 07/08/22 Range/Units 14:15 21:13 06:47 WBC 8.92 (4.8-10.8) K/ul RBC 3.47 L (4.70-6.10) M/uL Hgb 8.7 L 8.9 L 9.7 L (14.0-18.0) g/dl Hct 27.4 L 27.8 L 30.3 L (42.0-52.0) % Plt Count 163 (130-400) K/uL Comprehensive Metabolic Panel 07/08/22 Range/Units 06:47 Sodium 140 (136-145) mmol/L Potassium 3.4 L (3.5-5.1) mmol/L Chloride 109 H (98-107) mmol/L Carbon Dioxide 22 (21-32) mmol/L BUN 15 (6-23) mg/dl Creatinine 0.72 (0.6-1.4) mg/dl Glucose 144 H (70-99(Fasting)) mg/dl Calcium 7.9 L (8.6-10.3) mg/dl Intake and Output 07/07/22 07/08/22 07/08/22 22:59 06:59 14:59 Intake Total 395 / 1675 240 / 1675 120 / 120 Output Total 300 / 1351 Balance 95 / 324 240 / 324 120 / 120 Intake: IV 120 / 360 120 / 360 120 / 120 Piperacillin/Tazobactam 4.5 gm 120 / 360 120 / 360 120 / 120 In Dextrose 5% 100 ml @ 30 mls/ hr IV Q8H COUNTS INCLUDE 234 BEDS AT [facility] Rx#:[id number] Oral 275 / 1035 120 / 1035 Output: Urine 300 / 1350 Other: # Unmeasured Voids 1 Weight 71.5 kg Weight Measurement Method Standing Scale
--- NOTE | 2022-07-08 14:50 | Hospitalist Progress Note ---
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 Patient also reported rectal bleeding. Patient is being managed for the following: Symptomatic anemia/likely iron deficiency and anemia: Iron level less than 10, ferritin 46.8. Patient received blood products. Repeat iron studies in 3 months. Folate level wnl, B12 low normal, will start B12 supplement for a month. Likely lower GI bleed Diverticulitis: Admitting WBC elevated at 23.77 K, procalcitonin elevated at presentation. Patient presents with generalized weakness. Admitting hemoglobin of 7.0, which dropped to 6.3 in few hours. Baseline hemoglobin around 14-15. Admitting CTAP suggestive of descending colon/sigmoid colon diverticulitis Status post 3 unit PRBC, hemoglobin today morning 9.7 Transfusion of PRBC for hemoglobin less than 8 or symptomatic anemia. Hold Eliquis/aspirin. Reticulocyte slightly elevated, haptoglobin 244. Total bili WNL. GI consulted, diet advanced, seems to tolerate Continue with Zosyn 4/5. Patient reports improving RLQ pain/ resolving. WBC trended down/normalized, afebrile. Stool PCR and C. difficile negative. Tagged RBC scan negative. Likely type II NSTEMI: Troponin elevated at presentation, flat trended. No chest pain. Continue telemetry monitoring. Echo reviewed. Cardiology on board, appreciate recommendation. MGUS (monoclonal gammopathy of unknown significance): Follows with hematology, Dr. Conway. Acute anemia as noted above. Baseline hemoglobin 15. Peripheral blood smear with findings consistent with leukocytosis and normocytic anemia. (6) CAD (coronary artery disease): History NSTEMI 2011 s/p [facility]ARY to [facility]. (7) Hypertension: Continue carvedilol with holding parameters. (8) Chronic diastolic CHF (congestive heart failure): History echo 01/31/2021: EF: 65%, grade 1 diastolic dysfunction, mild aortic valve sclerosis without stenosis, mild AR, small posterior loculated pericardial effusion present On chronic Lasix Now on IV lasix d/t pt being hypervolemic, w/ LE edema (likely d/t fluid resuscitation and blood transfusions obtained) (9) Diabetes mellitus, type 2: A1c: 8.5 on 06/15/2022. Sliding scale insulin. (10) Atrial fibrillation: Anticoagulated on Eliquis. Eliquis on hold due to anemia. Continue with carvedilol, sotalol. (11) Chronic renal disease, stage III: Baseline hemoglobin 0.6-0.8 per outpatient chart review. Continue to monitor. (12) BPH (benign prostatic hyperplasia): Hold terazosin for now (13) Inflammatory polyarthropathy: On chronic prednisone, continue. DVT Prophylaxis: SCDs Full Code Follows with Dr Dowd for routine care PT/OT, CM to assist, expect DC in few days pending stability of Hb; will need PO atb for diverticulitis Admission and Anticipated Discharge Date Admission Date: July 05, 2022 Subjective Patient seen in follow-up for symptomatic anemia, likely lower GI bleed, diverticulitis, also likely NSTEMI type II. Patient was sitting up in bed, on room air, NAD had BM this AM - reports no blood Diet was advanced and he says he ate today and felt well, denies abd. 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 Review of Systems Review of Systems: All systems reviewed & are unremarkable except as noted in Subjective Physical Exam Physical Exam: GENERAL: Alert and oriented x3. NAD, on RA. HEENT:NC/AT. EOMI. Pupils equal, round and reactive to light. Oral mucosa moist. NECK: No JVD, no neck masses. HEART: S1 and S2 heard. Regular rate and rhythm. + murmur, no gallop. RESPIRATORY: Normal AP diameter. No accessory muscle use. No wheezing, no crackles. ABDOMEN: Soft, bowel sounds present, nontender to palp. (resolved) NEURO: No facial droop. Speech is clear. Obeys simple commands. Moves extremities. EXTREMITIES: 1+ pedal edema, no erythema seen. Results & Data Results & Data Vital Signs (Past 12 Hours) Vital Signs Temp Pulse Pulse Resp BP Pulse Ox O2 Del Method 07/08/22 12:30 36.5 C 68 17 143/70 H 98 Room Air 07/08/22 07:54 69 07/08/22 07:52 36.7 C 50 L 19 133/69 98 Room Air 07/08/22 07:47 Room Air 07/08/22 07:45 57 L 07/08/22 03:20 36.6 C 61 18 159/71 H 96 Room Air Laboratory Results 07/08/22 07/08/22 07/08/22 Range/Units 11:02 07:25 06:47 WBC (4.8-10.8) K/ul RBC (4.70-6.10) M/uL Hgb (14.0-18.0) g/dl Hct (42.0-52.0) % MCV (80.0-100.0) fL MCH (25.0-34.0) pg MCHC (32.0-36.0) g/dL RDW Std Deviation (36.4-46.3) fL RDW Coeff of Coty (11.5-14.5) % Plt Count (130-400) K/uL MPV (9.4-12.4) fL Sodium 140 (136-145) mmol/L Potassium 3.4 L (3.5-5.1) mmol/L Chloride 109 H (98-107) mmol/L Carbon Dioxide 22 (21-32) mmol/L Anion Gap 9 (3-11) BUN 15 (6-23) mg/dl Creatinine 0.72 (0.6-1.4) mg/dl Est Cr Clr Drug Dosing 66.3 ml/min Est GFR ( Amer) 96.5 ml/min Est GFR (Non-Af Amer) 83.3 ml/min BUN/Creatinine Ratio 20.8 H (10-20) Glucose 144 H (70-99(Fasting)) mg/dl POC Glucose 135 H 140 H (70-99) mg/dl Calcium 7.9 L (8.6-10.3) mg/dl Magnesium 2.0 (1.7-2.4) mg/dl 07/08/22 07/07/22 07/07/22 Range/Units 06:47 21:13 20:32 WBC 8.92 (4.8-10.8) K/ul RBC 3.47 L (4.70-6.10) M/uL Hgb 9.7 L 8.9 L (14.0-18.0) g/dl Hct 30.3 L 27.8 L (42.0-52.0) % MCV 87.3 (80.0-100.0) fL MCH 28.0 (25.0-34.0) pg MCHC 32.0 (32.0-36.0) g/dL RDW Std Deviation 50.0 H (36.4-46.3) fL RDW Coeff of Coty 15.7 H (11.5-14.5) % Plt Count 163 (130-400) K/uL MPV 10.9 (9.4-12.4) fL Sodium (136-145) mmol/L Potassium (3.5-5.1) mmol/L Chloride (98-107) mmol/L Carbon Dioxide (21-32) mmol/L Anion Gap (3-11) BUN (6-23) mg/dl Creatinine (0.6-1.4) mg/dl Est Cr Clr Drug Dosing ml/min Est GFR ( Amer) ml/min Est GFR (Non-Af Amer) ml/min BUN/Creatinine Ratio (10-20) Glucose (70-99(Fasting)) mg/dl POC Glucose 227 H (70-99) mg/dl Calcium (8.6-10.3) mg/dl Magnesium (1.7-2.4) mg/dl 07/07/22 Range/Units 16:27 WBC (4.8-10.8) K/ul RBC (4.70-6.10) M/uL Hgb (14.0-18.0) g/dl Hct (42.0-52.0) % MCV (80.0-100.0) fL MCH (25.0-34.0) pg MCHC (32.0-36.0) g/dL RDW Std Deviation (36.4-46.3) fL RDW Coeff of Coty (11.5-14.5) % Plt Count (130-400) K/uL MPV (9.4-12.4) fL Sodium (136-145) mmol/L Potassium (3.5-5.1) mmol/L Chloride (98-107) mmol/L Carbon Dioxide (21-32) mmol/L Anion Gap (3-11) BUN (6-23) mg/dl Creatinine (0.6-1.4) mg/dl Est Cr Clr Drug Dosing ml/min Est GFR ( Amer) ml/min Est GFR (Non-Af Amer) ml/min BUN/Creatinine Ratio (10-20) Glucose (70-99(Fasting)) mg/dl POC Glucose 162 H (70-99) mg/dl Calcium (8.6-10.3) mg/dl Magnesium (1.7-2.4) mg/dl Medications Administered Current Inpatient Medications Acetaminophen (Acetaminophen 325 Mg Tab) 650 mg PO Q4H PRN PRN Reason: pain or fever Stop: 08/06/22 07:28 Last Admin: 07/07/22 08:13 Dose: 650 mg Albuterol (Albuterol Hfa 8 Gm Inhaler) 1 puffs INH Q4H PRN PRN Reason: Shortness Of Breath Stop: 08/04/22 17:47 Aspirin (Aspirin 81 Mg Ectab) 81 mg PO [facility] Stop: 08/05/22 08:59 Last Admin: 07/06/22 09:02 Dose: 81 mg Atorvastatin Calcium (Atorvastatin 40 Mg Tab) [facility] [place] [facility]: 08/05/22 08:59 Last Admin: 07/08/22 07:57 Dose: 80 mg Carvedilol (Carvedilol 12.5 Mg Tab) 12.5 mg PO BID [facility] Stop: 08/04/22 20:59 Last Admin: 07/08/22 08:01 Dose: 12.5 mg Cyanocobalamin (Cyanocobalamin (B-12) 100 Mcg Tablet) 100 mcg [facility] [place] Stop: 08/06/22 08:59 Last Admin: 07/08/22 07:57 Dose: 100 mcg Dextrose (Dextrose 50% 50 Ml Syringe) 25 - 50 ml IV UD PRN; Protocol PRN Reason: Hypoglycemia Protocol Stop: 08/04/22 17:43 Ferrous Sulfate (Ferrous Sulfate 325 Mg/7.4 Ml Udp) 325 mg [facility] [place] Stop: 08/08/22 08:59 Furosemide (Furosemide 40 Mg Tab) 40 mg PO QAM [facility] Stop: 08/07/22 08:59 Last Admin: 07/08/22 07:57 Dose: 40 mg Glucagon (Glucagon For Inj 1 Mg Vial) 1 mg SQ UD PRN; Protocol PRN Reason: Hypoglycemia Protocol Stop: 08/04/22 17:43 Glucose (Glucose 10 Tab/Tube) 4 - 8 tab PO UD PRN; Protocol PRN Reason: Hypoglycemia Treatment Stop: 08/04/22 17:43 Glucose (Glucose 40% Gel 15 Gm Tube) 15 - 30 gm PO UD PRN; Protocol PRN Reason: Hypoglycemia Protocol Stop: 08/04/22 17:43 Piperacillin Sod/Tazobactam (Sod 4.5 gm/ Dextrose) 120 mls @ 30 mls/hr IV Q8H [facility]; Protocol Stop: 07/15/22 19:59 Last Admin: 07/08/22 12:21 Dose: 30 mls/hr Insulin Aspart (Insulin Aspart Per Unit Charge) 0 units SC ACHS [facility] Stop: 08/04/22 17:43 Last Admin: 07/08/22 12:17 Dose: 5 units Isosorbide Mononitrate (Isosorbide [place] Extended Rel 60 Mg Tabcr) 60 mg PO QAM [facility] Stop: 08/05/22 08:59 Last Admin: 07/08/22 08:00 Dose: 60 mg Miscellaneous (Carbohydrates For Hypoglycemia ) 15 - 30 gm PO UD PRN PRN Reason: Hypoglycemia Protocol Stop: 08/04/22 17:43 Pantoprazole Sodium (Pantoprazole 40 Mg Tab) 40 mg PO BID [facility] Stop: 08/05/22 20:59 Last Admin: 07/08/22 07:56 Dose: 40 mg Prednisone (Prednisone 5 Mg Tab) 5 mg PO BID [facility] Stop: 08/04/22 20:59 Last Admin: 07/08/22 07:56 Dose: 5 mg Sotalol HCl (Sotalol Hcl 80 Mg Tab) 40 mg PO BID [facility] Stop: 08/04/22 20:59 Last Admin: 07/08/22 08:00 Dose: 40 mg Sucralfate (Sucralfate 1 Gm/10 Ml Udc) 1 gm PO BID [facility] Stop: 08/05/22 20:59 Last Admin: 07/08/22 07:57 Dose: 1 gm
[2022-07-09] MEDS: PIPERACILLIN/TAZOBACTAM 4.5 GM in DEXTROSE 5% 100 ML IV SCH ×3 (04:19→19:43)
[2022-07-09 06:31] LABS: Hematocrit (blood only) 28.3 % (42.0-52.0); Mean Corpuscular Hgb Conc 31.8 g/dL (32.0-36.0); Mean Corpuscular Volume 87.9 fL (80.0-100.0); Mean Platelet Volume 11.5 fL (9.4-12.4); Platelet Count 165 K/uL (130-400); RDW Coefficient of Variation 15.8 % (11.5-14.5); RDW Standard Deviation 50.4 fL (36.4-46.3); Red Blood Count 3.22 M/uL (4.70-6.10); White Blood Count 7.53 K/ul (4.8-10.8)
[2022-07-09 06:49] LABS: BUN Creatinine Ratio 19.2 (10-20); Calcium 7.6 mg/dl (8.6-10.3); Creatinine Clr Calc Pharmacy 45.9 ml/min; Est GFR (Non-African American) 63.8 ml/min; Magnesium 1.9 mg/dl (1.7-2.4); Phosphorus 2.7 mg/dl (2.5-4.9); Potassium 3.5 mmol/L (3.5-5.1)
[2022-07-09] MEDS ORDERED: POTASSIUM CHLORIDE CRTAB 20 MEQ TABCR PO STA (08:08)
--- NOTE | 2022-07-09 08:09 | Hospitalist Progress Note ---
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 Patient also reported rectal bleeding. Patient is being managed for the following: Symptomatic anemia/likely iron deficiency and anemia: Iron level less than 10, ferritin 46.8. Patient received blood products. Repeat iron studies in 3 months. Folate level wnl, B12 low normal, will start B12 supplement for a month. Likely lower GI bleed Diverticulitis: Admitting WBC elevated at 23.77 K, procalcitonin elevated at presentation. Patient presents with generalized weakness. Admitting hemoglobin of 7.0, which dropped to 6.3 in few hours. Baseline hemoglobin around 14-15. Admitting CTAP suggestive of descending colon/sigmoid colon diverticulitis Status post 3 unit PRBC, hemoglobin this AM 9.0 Transfusion of PRBC for hemoglobin less than 8 or symptomatic anemia. Hold Eliquis/aspirin. Reticulocyte slightly elevated, haptoglobin 244. Total bili WNL. GI consulted, diet advanced, seems to tolerate Continue with Zosyn 4/5. Patient reports improving RLQ pain/ resolving. WBC trended down/normalized, afebrile. Stool PCR and C. difficile negative. Tagged RBC scan negative. Likely type II NSTEMI: Troponin elevated at presentation, flat trended. No chest pain. Continue telemetry monitoring. Echo reviewed. Cardiology on bobrenda dgrupo recommendation. MGUS (monoclonal gammopathy of unknown significance): Follows with hematology, Dr. Conway. Acute anemia as noted above. Baseline hemoglobin 15. Peripheral blood smear with findings consistent with leukocytosis and normocytic anemia. (6) CAD (coronary artery disease): History NSTEMI 2011 s/p MARY to [facility]. (7) Hypertension: Continue carvedilol with holding parameters. (8) Chronic diastolic CHF (congestive heart failure): History echo 01/31/2021: EF: 65%, grade 1 diastolic dysfunction, mild aortic valve sclerosis without stenosis, mild AR, small posterior loculated pericardial effusion present On chronic Lasix Received IV lasix d/t pt being hypervolemic, w/ LE edema (likely d/t fluid resuscitation and blood transfusions obtained)-> now changed to PO lasix (9) Diabetes mellitus, type 2: A1c: 8.5 on 06/15/2022. Sliding scale insulin. (10) Atrial fibrillation: Anticoagulated on Eliquis. Eliquis on hold due to anemia. Continue with carvedilol, sotalol. (11) Chronic renal disease, stage III: Baseline hemoglobin 0.6-0.8 per outpatient chart review. Continue to monitor. (12) BPH (benign prostatic hyperplasia): Hold terazosin for now (13) Inflammatory polyarthropathy: On chronic prednisone, continue. DVT Prophylaxis: SCDs Full Code Follows with Dr Dowd for routine care PT/OT, CM to assist, expect DC in few days pending stability of Hb; will need PO atb for diverticulitis Admission and Anticipated Discharge Date Admission Date: July 05, 2022 Subjective Patient seen in follow-up for symptomatic anemia, likely lower GI bleed, diverticulitis, also likely NSTEMI type II. Patient is sitting up in bed, on room air, NAD Diet was advanced and he is tolerating diet w/ minimal abd. discomfort Reports small loose BMs LE edema much improved Per AP OPERATOR at the bedside - pt ambulated from the bathroom w/ just her assistance (ambulation improved) denies fever/chills/chest pain/other review of symptoms Review of Systems Review of Systems: All systems reviewed & are unremarkable except as noted in Subjective Physical Exam Physical Exam: GENERAL: Alert and oriented x3. NAD, on RA. HEENT:NC/AT. EOMI. Pupils equal, round and reactive to light. Oral mucosa moist. NECK: No JVD, no neck masses. HEART: S1 and S2 heard. Regular rate and rhythm. + murmur, no gallop. RESPIRATORY: Normal AP diameter. No accessory muscle use. No wheezing, no crackles. ABDOMEN: Soft, bowel sounds present, nontender to palp. (resolved) NEURO: No facial droop. Speech is clear. Obeys simple commands. Moves extremities. EXTREMITIES:minimal pedal edema (improved), no erythema seen. Results & Data Results & Data Vital Signs (Past 12 Hours) Vital Signs Temp Pulse Pulse Resp BP Pulse Ox O2 Del Method 07/09/22 07:51 55 L 07/09/22 07:08 36.8 C 64 17 154/70 H 94 Room Air 07/09/22 02:55 36.5 C 72 18 162/76 H 94 Room Air 07/09/22 00:37 70 07/08/22 23:03 36.9 C 69 18 129/72 96 Room Air Laboratory Results 07/09/22 07/09/22 07/09/22 Range/Units 07:19 05:34 05:34 WBC 7.53 (4.8-10.8) K/ul RBC 3.22 L (4.70-6.10) M/uL Hgb 9.0 L (14.0-18.0) g/dl Hct 28.3 L (42.0-52.0) % MCV 87.9 (80.0-100.0) fL MCH 28.0 (25.0-34.0) pg MCHC 31.8 L (32.0-36.0) g/dL RDW Std Deviation 50.4 H (36.4-46.3) fL RDW Coeff of Coty 15.8 H (11.5-14.5) % Plt Count 165 (130-400) K/uL MPV 11.5 (9.4-12.4) fL Sodium 142 (136-145) mmol/L Potassium 3.5 (3.5-5.1) mmol/L Chloride 109 H (98-107) mmol/L Carbon Dioxide 26 (21-32) mmol/L Anion Gap 7 (3-11) BUN 20 (6-23) mg/dl Creatinine 1.04 D (0.6-1.4) mg/dl Est Cr Clr Drug Dosing 45.9 ml/min Est GFR ( Amer) 74.0 ml/min Est GFR (Non-Af Amer) 63.8 ml/min BUN/Creatinine Ratio 19.2 (10-20) Glucose 236 H (70-99(Fasting)) mg/dl POC Glucose 223 H (70-99) mg/dl Calcium 7.6 L (8.6-10.3) mg/dl Phosphorus 2.7 (2.5-4.9) mg/dl Magnesium 1.9 (1.7-2.4) mg/dl 07/08/22 07/08/22 07/08/22 Range/Units 20:20 16:16 11:02 WBC (4.8-10.8) K/ul RBC (4.70-6.10) M/uL Hgb (14.0-18.0) g/dl Hct (42.0-52.0) % MCV (80.0-100.0) fL MCH (25.0-34.0) pg MCHC (32.0-36.0) g/dL RDW Std Deviation (36.4-46.3) fL RDW Coeff of Coty (11.5-14.5) % Plt Count (130-400) K/uL MPV (9.4-12.4) fL Sodium (136-145) mmol/L Potassium (3.5-5.1) mmol/L Chloride (98-107) mmol/L Carbon Dioxide (21-32) mmol/L Anion Gap (3-11) BUN (6-23) mg/dl Creatinine (0.6-1.4) mg/dl Est Cr Clr Drug Dosing ml/min Est GFR ( Amer) ml/min Est GFR (Non-Af Amer) ml/min BUN/Creatinine Ratio (10-20) Glucose (70-99(Fasting)) mg/dl POC Glucose 116 H 193 H 135 H (70-99) mg/dl Calcium (8.6-10.3) mg/dl Phosphorus (2.5-4.9) mg/dl Magnesium (1.7-2.4) mg/dl Medications Administered Current Inpatient Medications Acetaminophen (Acetaminophen 325 Mg Tab) 650 mg PO Q4H PRN PRN Reason: pain or fever Stop: 08/06/22 07:28 Last Admin: 07/07/22 08:13 Dose: 650 mg Albuterol (Albuterol Hfa 8 Gm Inhaler) 1 puffs INH Q4H PRN PRN Reason: Shortness Of Breath Stop: 08/04/22 17:47 Aspirin (Aspirin 81 Mg Ectab) [facility] [place] Stop: 08/05/22 08:59 Last Admin: 07/06/22 09:02 Dose: 81 mg Atorvastatin Calcium (Atorvastatin 40 Mg Tab) 80 mg PO QAM [facility] Stop: 08/05/22 08:59 Last Admin: 07/08/22 07:57 Dose: 80 mg Carvedilol (Carvedilol 12.5 Mg Tab) 12.5 mg PO BID [facility] Stop: 08/04/22 20:59 Last Admin: 07/08/22 20:50 Dose: 12.5 mg Cyanocobalamin (Cyanocobalamin (B-12) 100 Mcg Tablet) 100 mcg PO QAM [facility] Stop: 08/06/22 08:59 Last Admin: 07/08/22 07:57 Dose: 100 mcg Dextrose (Dextrose 50% 50 Ml Syringe) 25 - 50 ml IV UD PRN; Protocol PRN Reason: Hypoglycemia Protocol Stop: 08/04/22 17:43 Ferrous Sulfate (Ferrous Sulfate 325 Mg/7.4 Ml Udp) 325 mg PO [facility] Stop: 08/08/22 08:59 Furosemide (Furosemide 40 Mg Tab) 40 mg PO [facility] Stop: 08/07/22 08:59 Last Admin: 07/08/22 07:57 Dose: 40 mg Glucagon (Glucagon For Inj 1 Mg Vial) 1 mg SQ UD PRN; Protocol PRN Reason: Hypoglycemia Protocol Stop: 08/04/22 17:43 Glucose (Glucose 10 Tab/Tube) 4 - 8 tab PO UD PRN; Protocol PRN Reason: Hypoglycemia Treatment Stop: 08/04/22 17:43 Glucose (Glucose 40% Gel 15 Gm Tube) 15 - 30 gm PO UD PRN; Protocol PRN Reason: Hypoglycemia Protocol Stop: 08/04/22 17:43 Piperacillin Sod/Tazobactam (Sod 4.5 gm/ Dextrose) 120 mls @ 30 mls/hr IV Q8H [facility]; Protocol Stop: 07/15/22 19:59 Last Admin: 07/09/22 04:19 Dose: 30 mls/hr Insulin Aspart (Insulin Aspart Per Unit Charge) 0 units SC [facility] Stop: 08/04/22 17:43 Last Admin: 07/08/22 20:25 Dose: Not Given Isosorbide Mononitrate (Isosorbide [place] Extended Rel 60 Mg Tabcr) [facility] [place] [facility] [place] Stop: 08/05/22 08:59 Last Admin: 07/08/22 08:00 Dose: 60 mg Miscellaneous (Carbohydrates For Hypoglycemia ) 15 - 30 gm PO UD PRN PRN Reason: Hypoglycemia Protocol Stop: 08/04/22 17:43 Pantoprazole Sodium (Pantoprazole 40 Mg Tab) 40 mg PO BID [facility] Stop: 08/05/22 20:59 Last Admin: 07/08/22 20:49 Dose: 40 mg Potassium Chloride (Potassium Chloride Crtab 20 Meq Tabcr) 40 meq PO NOW [facility] Stop: 07/09/22 08:09 Prednisone (Prednisone 5 Mg Tab) 5 mg PO BID [facility] Stop: 08/04/22 20:59 Last Admin: 07/08/22 20:49 Dose: 5 mg Sotalol HCl (Sotalol Hcl 80 Mg Tab) 40 mg PO BID [facility] Stop: 08/04/22 20:59 Last Admin: 07/08/22 20:48 Dose: 40 mg Sucralfate (Sucralfate 1 Gm/10 Ml Udc) 1 gm PO BID [facility] Stop: 08/05/22 20:59 Last Admin: 07/08/22 20:51 Dose: 1 gm
[2022-07-09] MEDS: INSULIN ASPART PER UNIT CHARGE SC SCH ×4 (08:14→21:32)
[2022-07-09] MEDS: SUCRALFATE 1 GM/10 ML UDC PO SCH ×2 (08:17→21:36)
[2022-07-09] MEDS: ATORVASTATIN 40 MG TAB PO SCH (08:18)
[2022-07-09] MEDS: ISOSORBIDE MONO EXTENDED REL 60 MG TABCR PO SCH (08:19)
[2022-07-09] MEDS: carvediloL 12.5 MG TAB PO SCH ×2 (08:19→21:36)
[2022-07-09] MEDS: predniSONE 5 MG TAB PO SCH ×2 (08:19→21:36)
[2022-07-09] MEDS: SOTALOL HCL 80 MG TAB PO SCH ×2 (08:24→21:36)
[2022-07-09] MEDS: FUROSEMIDE 40 MG TAB PO SCH (08:25)
[2022-07-09] MEDS: PANTOprazole 40 MG TAB PO SCH ×2 (08:25→21:36)
[2022-07-09] MEDS: CYANOCOBALAMIN (B-12) 100 MCG TABLET PO SCH (08:26)
[2022-07-09] MEDS: FERROUS SULFATE 325 MG/7.4 ML UDP PO SCH (08:26)
--- NOTE | 2022-07-09 12:46 | Cardiology Progress Note ---
Date of Service July 09, 2022 Assessment & Plan (1) Chronic diastolic heart failure: (2) Symptomatic anemia: (3) GI bleed: Plan Volume status improved. Continue furosemide 40 mg p.o. daily. Follow fluid balance, daily weight, GFR, and electrolytes. Anticoagulation will remain on hold. Monitor daily H&H. Admission and Anticipated Discharge Date Admission Date: July 05, 2022 Subjective Patient feeling from a cardiovascular perspective. Shortness of breath improved. Continues to report fatigue. No orthopnea or PND. Denies chest pain or shortness of breath. Telemetry reveals sinus rhythm, PACs, heart rate ranging 50-70 bpm. Offers no new concerns/complaints. Review of Systems Review of Systems: All systems reviewed & are unremarkable except as noted in Subjective Physical Exam Constitutional: well nourished and + ill appearing; no acute distress Respiratory: no respiratory distress, no labored breathing and no retractions Auscultation: no rales, no rhonchi and no wheezes Cardiovascular: Rate/Rhythm: regular rate (With ectopy) Heart Sounds: n ormal S1, normal S2 and + murmur (2/6 systolic ejection murmur) Vessels: radial pulses present; no JVD and no carotid bruit Extremities: no edema Gastrointestinal (Abdomen): Inspection/Auscultation: abdomen normal to inspection and normal bowel sounds; abdomen not distended Pe rcussion/Palpation: abdomen soft; abdomen nontender, no guarding and abdomen not rigid Neurologic: CN's II-XI intact bilaterally and moves all extremities; no focal motor deficits Motor/Sensory: no tremor Psychiatric: A+Ox3, euthymic affect Results & Data Vital Signs (Past 12 Hours) Vital Signs Temp Pulse Pulse Resp BP Pulse Ox O2 Del Method 07/09/22 11:32 36.8 C 59 L 17 128/51 L 91 Room Air 07/09/22 07:51 55 L 07/09/22 07:08 36.8 C 64 17 154/70 H 94 Room Air 07/09/22 02:55 36.5 C 72 18 162/76 H 94 Room Air
[2022-07-10] MEDS: PIPERACILLIN/TAZOBACTAM 4.5 GM in DEXTROSE 5% 100 ML IV SCH ×3 (04:01→19:21)
[2022-07-10 06:56] LABS: Hematocrit (blood only) 29.5 % (42.0-52.0); Hemoglobin 9.2 g/dl (14.0-18.0)
[2022-07-10 07:17] LABS: BUN Creatinine Ratio 24.3 (10-20); Calcium 7.9 mg/dl (8.6-10.3); Creatinine Clr Calc Pharmacy 68.2 ml/min; Est GFR (African American) 97.7 ml/min; Est GFR (Non-African American) 84.3 ml/min; Magnesium 1.8 mg/dl (1.7-2.4); Phosphorus 2.4 mg/dl (2.5-4.9); Potassium 3.7 mmol/L (3.5-5.1)
[2022-07-10] MEDS: carvediloL 12.5 MG TAB PO SCH ×2 (08:03→20:48)
[2022-07-10] MEDS: predniSONE 5 MG TAB PO SCH ×2 (08:03→20:49)
[2022-07-10] MEDS: SOTALOL HCL 80 MG TAB PO SCH ×2 (08:03→20:50)
[2022-07-10] MEDS: CYANOCOBALAMIN (B-12) 100 MCG TABLET PO SCH (08:04)
[2022-07-10] MEDS: ATORVASTATIN 40 MG TAB PO SCH (08:04)
[2022-07-10] MEDS: ISOSORBIDE MONO EXTENDED REL 60 MG TABCR PO SCH (08:04)
[2022-07-10] MEDS: FERROUS SULFATE 325 MG/7.4 ML UDP PO SCH (08:04)
[2022-07-10] MEDS: PANTOprazole 40 MG TAB PO SCH ×2 (08:04→20:49)
[2022-07-10] MEDS: FUROSEMIDE 40 MG TAB PO SCH (08:04)
[2022-07-10] MEDS: SUCRALFATE 1 GM/10 ML UDC PO SCH ×2 (08:04→20:50)
[2022-07-10] MEDS: INSULIN ASPART PER UNIT CHARGE SC SCH ×4 (08:08→20:10)
--- NOTE | 2022-07-10 09:46 | Cardiology Progress Note ---
Date of Service July 10, 2022 Assessment & Plan (1) Chronic diastolic heart failure: (2) Symptomatic anemia: (3) GI bleed: (4) Diverticulitis: Plan Patient appears compensated/euvolemic. Continue furosemide 40 mg p.o. daily. Follow fluid balance, daily weight, GFR, and electrolytes. Patient remains in sinus rhythm and is rhythm controlled with sotalol. Anticoagulation will remain on hold. Monitor daily H&H. Continue carvedilol, sotalol, isosorbide monohydrate, and low-dose aspirin as previously ordered. No further inpatient cardiac testing or intervention at this time. Admission and Anticipated Discharge Date Admission Date: July 05, 2022 Subjective Patient seen examined the bedside. Feeling well today. Telemetry reveals sinus rhythm with occasional PACs. No recurrent atrial fibrillation. Denies signs/symptoms of GI blood loss. Hemoglobin stable at 9.2gm.dL. Review of Systems Review of Systems: All systems reviewed & are unremarkable except as noted in Subjective Physical Exam Constitutional: well nourished and + ill appearing; no acute distress Respiratory: no respiratory distress, no labored breathing and no retractions Auscultation: no rales, no rhonchi and no wheezes Cardiovascular: Rate/Rhythm: regular rate (With ectopy) Heart Sounds: normal S1, normal S2 and + murmur (2/6 systolic ejection murmur) Vessels: radial pulses present; no JVD and no carotid bruit Extremities: no edema Gastrointestinal (Abdomen): Inspection/Auscultation: abdomen normal to inspection and normal bowel sounds; abdomen not distended Percussion/Palpation: abdomen soft; abdomen nontender, no guarding and abdomen not rigid Neurologic: CN's II-XI intact bilaterally and moves all extremities; no focal motor deficits Motor/Sensory: no tremor Psychiatric: A+Ox3, euthymic affect Results & Data Vital Signs (Past 12 Hours) Vital Signs Temp Pulse Pulse Resp BP Pulse Ox O2 Del Method 07/10/22 07:30 58 L 07/10/22 07:39 36.4 C L 60 17 155/76 H 98 Room Air 07/10/22 04:03 36.4 C L 71 16 148/57 H 93 Room Air 07/09/22 23:14 36.8 C 67 16 130/68 98 Room Air 07/09/22 23:05 74
--- NOTE | 2022-07-10 16:59 | Hospitalist Progress Note ---
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 Patient also reported rectal bleeding. Patient is being managed for the following: Symptomatic anemia/likely iron deficiency and anemia: Iron level less than 10, ferritin 46.8. Patient received blood products. Repeat iron studies in 3 months. Folate level wnl, B12 low normal, will start B12 supplement for a month. Likely lower GI bleed Patient presents with generalized weakness. Admitting hemoglobin of 7.0, which dropped to 6.3 in few hours. Baseline hemog lobin around 14-15. Status post 3 unit PRBC, hemoglobin this AM 9.0 Transfusion of PRBC for hemoglobin less than 8 or symptomatic anemia. Hold Eliquis/aspirin. Reticulocyte slightly elevated, haptoglobin 244. Total bili WNL. GI consulted-appreciate input and recommendation. No endoscopic intervention now. Diverticulitis: Admitting WBC elevated at 23.77 K, procalcitonin elevated at presentation. Admitting CTAP suggestive of descending colon/sigmoid colon diverticulitis Continue with Zosyn . Patient reports improving RLQ pain/ resolving. WBC trended down/normalized, afebrile. Stool PCR and C. difficile negative. Tagged RBC scan negative. Patient remains asymptomatic We will continue Zosyn for now and finish the course Likely type II NSTEMI: Troponin elevated at presentation, flat trended. No chest pain. Continue telemetry monitoring. Echo reviewed. CAD (coronary artery disease): History NSTEMI 2011 s/p MARY to [facility]. Cardiology on board, appreciate recommendation. MGUS (monoclonal gammopathy of unknown significance): Follows with hematology, Dr. Conway. Acute anemia as noted above. Baseline hemoglobin 15. Peripheral blood smear with findings consistent with leukocytosis and normocytic anemia. Hypertension: Continue carvedilol with holding parameters. Chronic diastolic CHF (congestive heart failure): History echo 01/31/2021: EF: 65%, grade 1 diastolic dysfunction, mild aortic valve sclerosis without stenosis, mild AR, small posterior loculated pericardial effusion present On chronic Lasix Received IV lasix d/t pt being hypervolemic, w/ LE edema (likely d/t fluid resuscitation and blood transfusions obtained)-> now changed to PO lasix Remains euvolemic Diabetes mellitus, type 2: A1c: 8.5 on 06/15/2022. Sliding scale insulin. Atrial fibrillation: Anticoagulated on Eliquis. Eliquis on hold due to anemia. Continue with carvedilol, sotalol. Chronic renal disease, stage III: Baseline hemoglobin 0.6-0.8 per outpatient chart review. Continue to monitor. BPH (benign prostatic hyperplasia): Hold terazosin for now Inflammatory polyarthropathy: On chronic prednisone, continue. DVT Prophylaxis: SCDs Full Code Follows with Dr Dowd for routine care PT/OT, CM to assist, expect DC in few days pending stability of Hb; will need PO atb for diverticulitis Likely discharge tomorrow Admission and Anticipated Discharge Date Admission Date: July 05, 2022 Subjective 07/10/2022 The patient was seen and examined in telemetry unit He has been stable and denies any significant symptoms No chest pain, shortness of breath and/or palpitation Likely discharge tomorrow Review of Systems Review of Systems: No acute arthritis involving any of the joint Physical Exam Physical Exam: Lying in bed without any acute distress Constitutional: well developed and well nourished; not ill appearing Eyes: PERRL, conjunctivae normal, anicteric sclerae ENMT: external ear and nose normal, oropharynx normal Neck: trachea midline, no thyromegaly Respiratory: no respiratory distress Auscultation: + diminished lung sounds; no crackles and no wheezes Cardiovascular: Rate/Rhythm: regular rate and regular rhythm; not tachycardic Heart Sounds: normal S1 and normal S2; no murmur Extremities: + edema (Trace edema bilaterally) Gastrointestinal (Abdomen): Inspection/Auscultation: normal bowel sounds; abdomen not distended Percussion/Palpation: abdomen soft; abdomen nontender Musculoskeletal: No acute arthritis involving any joint Neurologic: Alert, awake and oriented x3. No focal sensory or no motor deficit appreciated Lymphatic: no cervical or axillary lymphadenopathy Results & Data Results & Data Vital Signs (Past 12 Hours) Vital Signs Temp Pulse Pulse Resp BP Pulse Ox O2 Del Method 07/10/22 15:21 69 07/10/22 15:17 36.6 C 68 17 110/53 L 99 Room Air 07/10/22 11:29 36.4 C L 80 18 165/77 H 94 Room Air 07/10/22 07:30 58 L 07/10/22 07:39 36.4 C L 60 17 155/76 H 98 Room Air Laboratory Results Short CBC 07/10/22 Range/Units 06:06 Hgb 9.2 L (14.0-18.0) g/dl Hct 29.5 L (42.0-52.0) % BMP 07/10/22 06:06 Sodium 140 Potassium 3.7 Chloride 109 H Carbon Dioxide 24 BUN 17 Creatinine 0.70 D Glucose 168 H Calcium 7.9 L Medications Administered Current Inpatient Medications Acetaminophen (Acetaminophen 325 Mg Tab) 650 mg PO Q4H PRN PRN Reason: pain or fever Stop: 08/06/22 07:28 Last Admin: 07/07/22 08:13 Dose: 650 mg Albuterol (Albuterol Hfa 8 Gm Inhaler) 1 puffs INH Q4H PRN PRN Reason: Shortness Of Breath Stop: 08/04/22 17:47 Aspirin (Aspirin 81 Mg Ectab) [facility] [place] Stop: 08/05/22 08:59 Last Admin: 07/06/22 09:02 Dose: 81 mg Atorvastatin Calcium (Atorvastatin 40 Mg Tab) 80 [facility] [place] Stop: 08/05/22 08:59 Last Admin: 07/10/22 08:04 Dose: 80 mg Carvedilol (Carvedilol 12.5 Mg Tab) 12.5 mg PO BID [facility] Stop: 08/04/22 20:59 Last Admin: 07/10/22 08:03 Dose: 12.5 mg Cyanocobalamin (Cyanocobalamin (B-12) 100 Mcg Tablet) 100 mcg [facility] [place] Stop: 08/06/22 08:59 Last Admin: 07/10/22 08:04 Dose: 100 mcg Dextrose (Dextrose 50% 50 Ml Syringe) 25 - 50 ml IV UD PRN; Protocol PRN Reason: Hypoglycemia Protocol Stop: 08/04/22 17:43 Ferrous Sulfate (Ferrous Sulfate 325 Mg/7.4 Ml Udp) 325 mg PO [facility] Stop: 08/08/22 08:59 Last Admin: 07/10/22 08:04 Dose: 325 mg Furosemide (Furosemide 40 Mg Tab) 40 mg PO [facility] Stop: 08/07/22 08:59 Last Admin: 07/10/22 08:04 Dose: 40 mg Glucagon (Glucagon For Inj 1 Mg Vial) 1 mg SQ UD PRN; Protocol PRN Reason: Hypoglycemia Protocol Stop: 08/04/22 17:43 Glucose (Glucose 10 Tab/Tube) 4 - 8 tab PO UD PRN; Protocol PRN Reason: Hypoglycemia Treatment Stop: 08/04/22 17:43 Glucose (Glucose 40% Gel 15 Gm Tube) 15 - 30 gm PO UD PRN; Protocol PRN Reason: Hypoglycemia Protocol Stop: 08/04/22 17:43 Piperacillin Sod/Tazobactam (Sod 4.5 gm/ Dextrose) 120 mls @ 30 mls/hr IV Q8H [facility]; Protocol Stop: 07/15/22 19:59 Last Infusion: 07/10/22 16:00 Dose: Infused Insulin Aspart (Insulin Aspart Per Unit Charge) 0 units SC ACHS [facility] Stop: 08/04/22 17:43 Last Admin: 07/10/22 11:52 Dose: 5 units Isosorbide Mononitrate (Isosorbide [place] Extended Rel 60 Mg Tabcr) 60 mg PO QAM [facility] Stop: 08/05/22 08:59 Last Admin: 07/10/22 08:04 Dose: 60 mg Miscellaneous (Carbohydrates For Hypoglycemia ) 15 - 30 gm PO UD PRN PRN Reason: Hypoglycemia Protocol Stop: 08/04/22 17:43 Pantoprazole Sodium (Pantoprazole 40 Mg Tab) 40 mg PO BID [facility] Stop: 08/05/22 20:59 Last Admin: 07/10/22 08:04 Dose: 40 mg Prednisone (Prednisone 5 Mg Tab) 5 mg PO BID [facility] Stop: 08/04/22 20:59 Last Admin: 07/10/22 08:03 Dose: 5 mg Sotalol HCl (Sotalol Hcl 80 Mg Tab) 40 mg PO BID [facility] Stop: 08/04/22 20:59 Last Admin: 07/10/22 08:03 Dose: 40 mg Sucralfate (Sucralfate 1 Gm/10 Ml Udc) 1 gm PO BID [facility] Stop: 08/05/22 20:59 Last Admin: 07/10/22 08:04 Dose: 1 gm
[2022-07-11] MEDS: PIPERACILLIN/TAZOBACTAM 4.5 GM in DEXTROSE 5% 100 ML IV SCH ×2 (04:18→11:45)
[2022-07-11 06:42] LABS: Basophils # (auto) 0.02 K/uL (0-0.2); Basophils % (auto) 0.2 %; Eosinophils # (auto) 0.02 K/uL (0-0.50); Eosinophils % (auto) 0.2 %; Hematocrit (blood only) 28.8 % (42.0-52.0); Lymphocytes # (auto) 1.16 K/uL (1.2-3.4); Lymphocytes % (auto) 11.8 %; Mean Corpuscular Hemoglobin 27.5 pg (25.0-34.0); Mean Corpuscular Hgb Conc 31.3 g/dL (32.0-36.0); Mean Corpuscular Volume 88.1 fL (80.0-100.0); Mean Platelet Volume 11.4 fL (9.4-12.4); Monocytes # (auto) 0.75 K/uL (0.11-0.59); Monocytes % (auto) 7.6 %; Neutrophils # (auto) 7.79 K/uL (1.40-6.50); Neutrophils % (auto) 79.2 %; Platelet Count 165 K/uL (130-400); RDW Coefficient of Variation 15.9 % (11.5-14.5); Red Blood Count 3.27 M/uL (4.70-6.10); White Blood Count 9.84 K/ul (4.8-10.8)
[2022-07-11 07:00] LABS: BUN Creatinine Ratio 23.2 (10-20); Calcium 7.7 mg/dl (8.6-10.3); Creatinine Clr Calc Pharmacy 58.2 ml/min; Est GFR (African American) 91.5 ml/min
[2022-07-11] MEDS: INSULIN ASPART PER UNIT CHARGE SC SCH ×2 (07:54→11:41)
[2022-07-11] MEDS: FUROSEMIDE 40 MG TAB PO SCH (07:55)
[2022-07-11] MEDS: ATORVASTATIN 40 MG TAB PO SCH (07:55)
[2022-07-11] MEDS: predniSONE 5 MG TAB PO SCH (07:55)
[2022-07-11] MEDS: carvediloL 12.5 MG TAB PO SCH (07:55)
[2022-07-11] MEDS: PANTOprazole 40 MG TAB PO SCH (07:55)
[2022-07-11] MEDS: CYANOCOBALAMIN (B-12) 100 MCG TABLET PO SCH (07:55)
[2022-07-11] MEDS: SOTALOL HCL 80 MG TAB PO SCH (07:55)
[2022-07-11] MEDS: ISOSORBIDE MONO EXTENDED REL 60 MG TABCR PO SCH (07:55)
[2022-07-11] MEDS: FERROUS SULFATE 325 MG/7.4 ML UDP PO SCH (07:56)
[2022-07-11] MEDS: SUCRALFATE 1 GM/10 ML UDC PO SCH (07:56)
--- NOTE | 2022-07-11 09:36 | Cardiology Progress Note ---
Date of Service July 11, 2022 Assessment & Plan (1) Chronic diastolic heart failure: (2) Symptomatic anemia: (3) GI bleed: (4) Diverticulitis: Plan Patient appears compensated/euvolemic. Continue furosemide 40 mg p.o. daily. Follow fluid balance, daily weight, GFR, and electrolytes. Patient remains in sinus rhythm and is rhythm controlled with sotalol. Anticoagulation will remain on hold. Monitor daily H&H. Continue carvedilol, sotalol, and isosorbide monohydrate. Restart low-dose aspirin at discharge if okay per gastroenterology. No further inpatient cardiac testing or intervention at this time. Admission and Anticipated Discharge Date Admission Date: July 05, 2022 Subjective Patient seen examined at the bedside. Continues to note fatigue. Dyspnea on exertion improved. No orthopnea, PND, or edema. Hemoglobin stable. Remains in sinus rhythm on telemetry. No recurrent signs/symptoms of GI blood loss. Review of Systems Review of Systems: All systems reviewed & are unremarkable except as noted in Subjective Physical Exam Constitutional: well nourished and + ill appearing; no acute distress Respiratory: no respiratory distress, no labored breathing and no retractions Auscultation: no rales, no rhonchi and no wheezes Cardiovascular: Rate/Rhythm: regular rate (With ectopy) Heart Sounds: normal S1, normal S2 and + murmur (2/6 systolic ejection murmur) Vessels: radial pulses present; no JVD and no carotid bruit Extremities: no edema Gastrointestinal (Abdomen): Inspection/Auscultation: abdomen normal to inspection and normal bowel sounds; abdomen not distended Percussion/Palpation: abdomen soft; abdomen nontender, no guarding and abdomen not rigid Neurologic: CN's II-XI intact bilaterally and moves all extremities; no focal motor deficits Motor/Sensory: no tremor Psychiatric: A+Ox3, euthymic affect Results & Data Vital Signs (Past 12 Hours) Vital Signs Temp Pulse Pulse Resp BP Pulse Ox O2 Del Method 07/11/22 08:00 59 L 07/11/22 08:01 36.9 C 69 18 146/75 H 93 Room Air 07/11/22 03:12 36.7 C 69 16 129/52 L 94 Room Air 07/11/22 00:03 72 07/10/22 23:08 36.7 C 55 L 16 121/64 96 Room Air
--- NOTE | 2022-07-11 12:56 | Hospitalist Progress Note ---
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 Patient also reported rectal bleeding. Patient is being managed for the following: Symptomatic anemia/likely iron deficiency and anemia: Iron level less than 10, ferritin 46.8. Patient received blood products. Repeat iron studies in 3 months. Folate level wnl, B12 low normal, will start B12 supplement for a month. Likely lower GI bleed Patient presents with generalized weakness. Admitting hemoglobin of 7.0, which dropped to 6.3 in few hours. Baseline hemog lobin around 14-15. Status post 3 unit PRBC, hemoglobin this AM 9.0 Transfusion of PRBC for hemoglobin less than 8 or symptomatic anemia. Hold Eliquis/aspirin. Reticulocyte slightly elevated, haptoglobin 244. Total bili WNL. GI consulted-appreciate input and recommendation. No endoscopic intervention now. No more GI bleed and the patient to be discharged home this afternoon on oral aspirin alone His hemoglobin remained stable Diverticulitis: Admitting WBC elevated at 23.77 K, procalcitonin elevated at presentation. Admitting CTAP suggestive of descending colon/sigmoid colon diverticulitis Continue with Zosyn . Patient reports improving RLQ pain/ resolving. WBC trended down/normalized, afebrile. Stool PCR and C. difficile negative. Tagged RBC scan negative. Patient remains asymptomatic We will continue Zosyn for now and finish the course Antibiotic course will be finished accordingly Likely type II NSTEMI: Troponin elevated at presentation, flat trended. No chest pain. Continue telemetry monitoring. Echo reviewed. CAD (coronary artery disease): History NSTEMI 2011 s/p MARY to [facility]. Cardiology on board, appreciate recommendation. MGUS (monoclonal gammopathy of unknown significance): Follows with hematology, Dr. Conway. Acute anemia as noted above. Baseline hemoglobin 15. Peripheral blood smear with findings consistent with leukocytosis and normocytic anemia. Hypertension: Continue carvedilol with holding parameters. Blood pressure seems to be controlled Chronic diastolic CHF (congestive heart failure): History echo 01/31/2021: EF: 65%, grade 1 diastolic dysfunction, mild aortic valve sclerosis without stenosis, mild AR, small posterior loculated pericardial effusion present On chronic Lasix Received IV lasix d/t pt being hypervolemic, w/ LE edema (likely d/t fluid resuscitation and blood transfusions obtained)-> now changed to PO lasix Remains euvolemic Lasix as per players assistant and he will follow-up as an outpatient Diabetes mellitus, type 2: A1c: 8.5 on 06/15/2022. Sliding scale insulin. Atrial fibrillation: Anticoagulated on Eliquis. Eliquis on hold due to anemia. Continue with carvedilol, sotalol. Chronic renal disease, stage III: Baseline hemoglobin 0.6-0.8 per outpatient chart review. Continue to monitor. BPH (benign prostatic hyperplasia): Hold terazosin for now Inflammatory polyarthropathy: On chronic prednisone, continue. DVT Prophylaxis: SCDs Full Code Follows with Dr Dowd for routine care PT/OT, CM to assist, expect DC in few days pending stability of Hb; will need PO atb for diverticulitis Remains medically stable and will be discharged this afternoon Admission and Anticipated Discharge Date Admission Date: July 05, 2022 Subjective 07/10/2022 The patient was seen and examined in telemetry unit He has been stable and denies any significant symptoms No chest pain, shortness of breath and/or palpitation Likely discharge tomorrow 07/11/2022 The patient was seen and examined in telemetry unit He has been stable for the last day or 2 Home health nurse has been arranged and he will be going home this afternoon Denies any significant symptoms Review of Systems Review of Systems: No acute arthritis involving any of the joint Physical Exam Physical Exam: Lying in bed without any acute distress Constitutional: well developed and well nourished; not ill appearing Eyes: PERRL, conjunctivae normal, anicteric sclerae ENMT: external ear and nose normal, oropharynx normal Neck: trachea midline, no thyromegaly Respiratory: no respiratory distress Auscultation: + diminished lung sounds; no crackles and no wheezes Cardiovascular: Rate/Rhythm: regular rate and regular rhythm; not tachycardic Heart Sounds: normal S1 and normal S2; no murmur Extremities: + edema (Trace edema bilaterally) Gastrointestinal (Abdomen): Inspection/Auscultation: normal bowel sounds; abdomen not distended Percussion/Palpation: abdomen soft; abdomen nontender Lymphatic: no cervical or axillary lymphadenopathy Results & Data Results & Data Vital Signs (Past 12 Hours) Vital Signs Temp Pulse Pulse Resp BP Pulse Ox O2 Del Method 07/11/22 11:32 36.5 C 57 L 19 135/64 100 Room Air 07/11/22 08:00 59 L 07/11/22 08:01 36.9 C 69 18 146/75 H 93 Room Air 07/11/22 03:12 36.7 C 69 16 129/52 L 94 Room Air Laboratory Results Short CBC 07/11/22 Range/Units 05:36 WBC 9.84 (4.8-10.8) K/ul Hgb 9.0 L (14.0-18.0) g/dl Hct 28.8 L (42.0-52.0) % Plt Count 165 (130-400) K/uL BMP 07/11/22 05:36 Sodium 140 Potassium 4.0 Chloride 109 H Carbon Dioxide 27 BUN 19 Creatinine 0.82 Glucose 187 H Calcium 7.7 L Medications Administered Current Inpatient Medications Acetaminophen (Acetaminophen 325 Mg Tab) 650 mg PO Q4H PRN PRN Reason: pain or fever Stop: 08/06/22 07:28 Last Admin: 07/07/22 08:13 Dose: 650 mg Albuterol (Albuterol Hfa 8 Gm Inhaler) 1 puffs INH Q4H PRN PRN Reason: Shortness Of Breath Stop: 08/04/22 17:47 Aspirin (Aspirin 81 Mg Ectab) 81 mg PO QAM [facility] Stop: 08/05/22 08:59 Last Admin: 07/06/22 09:02 Dose: 81 mg Atorvastatin Calcium (Atorvastatin 40 Mg Tab) 80 mg PO QAM [facility] Stop: 08/05/22 08:59 Last Admin: 07/11/22 07:55 Dose: 80 mg Carvedilol (Carvedilol 12.5 Mg Tab) 12.5 mg PO BID [facility] Stop: 08/04/22 20:59 Last Admin: 07/11/22 07:55 Dose: 12.5 mg Cyanocobalamin (Cyanocobalamin (B-12) 100 Mcg Tablet) 100 mcg PO QAM [facility] Stop: 08/06/22 08:59 Last Admin: 07/11/22 07:55 Dose: 100 mcg Dextrose (Dextrose 50% 50 Ml Syringe) 25 - 50 ml IV UD PRN; Protocol PRN Reason: Hypoglycemia Protocol Stop: 08/04/22 17:43 Ferrous Sulfate (Ferrous Sulfate 325 Mg/7.4 Ml Udp) [facility] Stop: 08/08/22 08:59 Last Admin: 07/11/22 07:56 Dose: 325 mg Furosemide (Furosemide 40 Mg Tab) 40 mg PO QAM [facility] Stop: 08/07/22 08:59 Last Admin: 07/11/22 07:55 Dose: 40 mg Glucagon (Glucagon For Inj 1 Mg Vial) 1 mg SQ UD PRN; Protocol PRN Reason: Hypoglycemia Protocol Stop: 08/04/22 17:43 Glucose (Glucose 10 Tab/Tube) 4 - 8 tab PO UD PRN; Protocol PRN Reason: Hypoglycemia Treatment Stop: 08/04/22 17:43 Glucose (Glucose 40% Gel 15 Gm Tube) 15 - 30 gm PO UD PRN; Protocol PRN Reason: Hypoglycemia Protocol Stop: 08/04/22 17:43 Piperacillin Sod/Tazobactam (Sod 4.5 gm/ Dextrose) 120 mls @ 30 mls/hr IV Q8H [facility]; Protocol Stop: 07/15/22 19:59 Last Admin: 07/11/22 11:45 Dose: 30 mls/hr Insulin Aspart (Insulin Aspart Per Unit Charge) 0 units SC ACHS [facility] Stop: 08/04/22 17:43 Last Admin: 07/11/22 11:41 Dose: 7 units Isosorbide Mononitrate (Isosorbide [place] Extended Rel 60 Mg Tabcr) 60 mg PO [facility] Stop: 08/05/22 08:59 Last Admin: 07/11/22 07:55 Dose: 60 mg Miscellaneous (Carbohydrates For Hypoglycemia ) 15 - 30 gm PO UD PRN PRN Reason: Hypoglycemia Protocol Stop: 08/04/22 17:43 Pantoprazole Sodium (Pantoprazole 40 Mg Tab) 40 mg PO BID [facility] Stop: 08/05/22 20:59 Last Admin: 07/11/22 07:55 Dose: 40 mg Prednisone (Prednisone 5 Mg Tab) 5 mg PO BID [facility] Stop: 08/04/22 20:59 Last Admin: 07/11/22 07:55 Dose: 5 mg Sotalol HCl (Sotalol Hcl 80 Mg Tab) 40 mg PO BID [facility] Stop: 08/04/22 20:59 Last Admin: 07/11/22 07:55 Dose: 40 mg Sucralfate (Sucralfate 1 Gm/10 Ml Udc) 1 gm PO BID [facility] Stop: 08/05/22 20:59 Last Admin: 07/11/22 07:56 Dose: 1 gm
--- NOTE | 2022-07-12 09:05 | Discharge Summary ---
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 Patient states today lightheaded with sitting, standing and walking. He has generalized weakness. Patient with history of reported red rectal bleeding. Per chart review. Patient was seen in [facility] ER on 06/13/2022 for rectal bleeding. Hemoglobin at that time was [address] abdomen pelvis showed high diverticulosis burden, no acute diverticulitis. Patient followed up with outpatient GI on 06/27/2022 for rectal bleeding. Colonoscopy was discussed however patient and family decided on conservative measures. He started Metamucil daily. Patient reports constipation for 2 days. Today he did have formed bowel movement. Patient reports today some lower abdominal discomfort today. Denies any rectal bleeding for 1 week. Denies any noted melena. Denies fever/chills, diaphoresis, N/V, DENNIS, syncope, vision changes, neck pain, CP, SOB, palpitations, cough, sore throat, choking, otalgia, rhinorrhea, paresthesias, extremity edema, rashes, urinary symptoms. Today in ER found to be anemic with hemoglobin of 7. CT abdomen pelvis consistent with diverticulitis. Patient being admitted for further evaluation and treatment. Admission Exam Per Admitting Provider Physical Exam: General: no acute distress, WDWN Head: normocephalic, atraumatic Eyes: +pale conjunctiva, anicteric ENT: normal inspection external ears, nose, mucous membranes moist Neck: supple, trachea midline Lungs: clear, no respiratory distress, no wheezing/rhonchi/rales CV: RRR, +murmur, 2+ pretibial edema Abd: normal BS, soft, +Tenderness to palpation LLQ without rebound or guarding Ext: no cyanosis, no calf tenderness, RLE: +scab to anterior lower leg with surrounding erythema, non-tender to palpation, no discharge or red streaking Neuro: A&O x 3, no focal deficits noted, normal affect Skin: pale, warm, dry Principal Diagnosis Symptomatic anemia, lower GI bleed, acute diverticulitis, type II NSTEMI, hypertension, chronic diastolic CHF Discharge Exam Lying in bed without any acute distress Constitutional well developed and well nourished; not ill appearing Eyes PERRL, conjunctivae normal, anicteric sclerae ENMT external ear and nose normal, oropharynx normal Neck trachea midline, no thyromegaly Respiratory no respiratory distress Auscultation: + diminished lung sounds; no crackles and no wheezes Cardiovascular Rate/Rhythm: regular rate and regular rhythm; not tachycardic Heart Sounds: normal S1 and normal S2; no murmur Extremities: + edema (Trace edema bilaterally) Gastrointestinal (Abdomen) Inspection/Auscultation: normal bowel sounds; abdomen not distended Percussion/Palpation: abdomen soft; abdomen nontender Lymphatic no cervical or axillary lymphadenopathy Discharge Data Allergies Allergy/AdvReac Type Severity Reaction Status Date / Time atenolol Allergy Unknown PT WAS Verified 07/05/22 15:15 TOLD NEVER TO TAKE AGAIN candesartan [From Atacand] AdvReac Intermediate HYPERKALEMI Verified 07/05/22 15:15 A lisinopril AdvReac Intermediate INCREASED Verified 07/05/22 15:15 CREATININE/HYPOTENSION Consultations 07/05/22 14:48 ED Decision to Admit Stat 07/05/22 15:41 Consult Gastroenterology Routine 07/05/22 20:06 Consult Cardiology Routine Ordered Studies 07/05/22 12:07 CT head/brain wo con Stat 07/05/22 13:14 CT abd pelvis IV con only Stat Hospital Course (1) Symptomatic anemia: Plan 87-year-old male with PMH of DM 2, CAD, A-fib on Eliquis, chronic diastolic heart failure, CKD stage III, HTN, HLD, BPH, 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 Patient also reported rectal bleeding. Patient is being managed for the following: Symptomatic anemia/likely iron deficiency and anemia: Iron level less than 10, ferritin 46.8. Patient received blood products. Repeat iron studies in 3 months. Folate level wnl, B12 low normal, will start B12 supplement for a month. Likely lower GI bleed Patient presents with generalized weakness. Admitting hemoglobin of 7.0, which dropped to 6.3 in few hours. Baseline hemoglobin around 14-15. Status post 3 unit PRBC, hemoglobin this AM 9.0 Transfusion of PRBC for hemoglobin less than 8 or symptomatic anemia. Hold Eliquis/aspirin. Reticulocyte slightly elevated, haptoglobin 244. Total bili WNL. GI consulted-appreciate input and recommendation. No endoscopic intervention now. No more GI bleed and the patient to be discharged home this afternoon on oral aspirin alone His hemoglobin remained stable Diverticulitis: Admitting WBC elevated at 23.77 K, procalcitonin elevated at presentation. Admitting CTAP suggestive of descending colon/sigmoid colon diverticulitis Continue with Zosyn . Patient reports improving RLQ pain/ resolving. WBC trended down/normalized, afebrile. Stool PCR and C. difficile negative. Tagged RBC scan negative. Patient remains asymptomatic We will continue Zosyn for now and finish the course Antibiotic course will be finished accordingly Likely type II NSTEMI: Troponin elevated at presentation, flat trended. No chest pain. Continue telemetry monitoring. Echo reviewed. CAD (coronary artery disease): History NSTEMI 2011 s/p MARY to LAD. Cardiology on board, appreciate recommendation. MGUS (monoclonal gammopathy of unknown significance): Follows with hematology, Dr. Conway. Acute anemia as noted above. Baseline hemoglobin 15. Peripheral blood smear with findings consistent with leukocytosis and normocytic anemia. Hypertension: Continue carvedilol with holding parameters. 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 Sliding scale insulin. Atrial fibrillation: Anticoagulated on Eliquis. Eliquis on hold due to anemia. Continue with carvedilol, sotalol. Chronic renal disease, stage III: Baseline hemoglobin 0.6-0.8 per outpatient chart review. Continue to monitor. BPH (benign prostatic hyperplasia): Hold terazosin for now Inflammatory polyarthropathy: On chronic prednisone, continue. DVT Prophylaxis: SCDs Full Code Follows with Dr Dowd for routine care PT/OT, CM to assist, expect DC in few days pending stability of Hb; will need PO atb for diverticulitis Remains medically stable and will be discharged this afternoon Total Time Total Time Spent Total Time Spent (In Minutes): 35 minutes Discharge Plan Discharge Items Patient Disposition: Home - Home Health Services Reason For Visit: ANEMIA Discharge Diagnosis: Symptomatic anemia, lower GI bleed, acute diverticulitis, type II NSTEMI, hypertension, chronic diastolic CHF Condition on Discharge: Fair Activity: Resume your previous activity Non-emergency contact: Primary Care Provider Call non-emergency contact if: you have any medication questions and your symptoms worsen Follow-up/Referrals: Eldon Dowd MD [Primary Care Provider] - 07/14/22 10:00 am (Date & Time 07/14/2022 10:00 AM Provider Eldon Dowd MD Department [facility] ) Diet: Heart Healthy Fluids: 1500ml (6 cups) Addtl Attending Provider Instructions: Please take precaution to avoid falls Finish the course of antibiotic Take your medications as advised Please keep follow-up appointments with your healthcare providers-monitor your electrolytes and fluid balance during visit to your healthcare providers Your Eliquis has been stopped Pending Studies at Discharge: No Stand-Alone Forms: My [facility] fitaborate, Smoking Cessation Medications and DC Order Prescriptions: New sucralfate 100 mg/mL Suspension 1 g PO BID 30 Days Qty: 600 0RF pantoprazole 40 mg Tablet,Delayed Release (Dr/Ec) 40 mg PO BID 30 Days Qty: 60 0RF ferrous sulfate 220 mg (44 mg iron)/5 mL Elixir 325 mg PO QAM Qty: 473 0RF amoxicillin 875 mg tablet 875 mg PO BID Qty: 8 0RF Continued furosemide 40 mg Tablet 40 mg PO QAM atorvastatin 80 mg Tablet 80 mg PO QAM aspirin 81 mg Tablet,Delayed Release (Dr/Ec) 81 mg PO QAM albuterol sulfate 90 mcg/actuation Aerosol Powdr Breath Activated 1 inh INHALATION .Q4-6HR PRN (Reason: Shortness Of Breath) carvedilol 12.5 mg tablet 12.5 mg PO BID loperamide 2 mg Capsule 2 mg PO QID PRN (Reason: Diarrhea) sotalol 80 mg tablet 40 mg PO BID prednisone 5 mg tablet 5 mg PO BID isosorbide mononitrate 60 mg Tablet Extended Release 24 Hr 60 mg PO QAM terazosin 2 mg capsule 2 mg PO HS glipizide 2.5 mg tablet extended release 24hr 2.5 mg PO QAM nitroglycerin 0.4 mg tablet, sublingual 0.4 mg sublingual DIRECTED MDD 3 DOSES/15 MINUTES PRN (Reason: Chest Pain) Tradjenta 5 mg tablet 5 mg PO QAM Jardiance 10 mg tablet 10 mg PO QAM Discontinued Eliquis 5 mg tablet 5 mg PO BID furosemide 40 mg tablet 20 mg PO QPM Rx Instructions: Takes in afternoon. No Action coenzyme Q10 200 mg Capsule 400 mg PO DAILY Centrum 18-400 mg-mcg Tablet 1 tab PO DAILY Discharge Orders: Discharge Order- CHF (Routine); Ordered 07/11/22 Ordered By: Dayne Simpson/Other Patient Handouts: High Blood Sugar (Hyperglycemia), Hypoglycemia (Low Blood Sugar), Managing Type 2 Diabetes Admission Data Admit Date/Time: 07/05/22 15:35 Attending Provider: Dayne Rockwell Admit Provider: Alison Hardin Primary Care Provider: Eldon Dowd Other Providers: Alison Hardin ; Patrick Wesley ; Jeison Sierra ; Eugenia Baptiste ; Francois Santoyo Other Interventions: Discharge Summary Assessment (RN) Last Done: 07/11/22 13:20
== END 2022-07-11 15:38 | disposition home health service (06) | DRG 377 ==
LOC: ED 11:23 → SUATTDRO 15:35 → 2S 15:35
DX: I25.10 Atherosclerotic heart disease of native coronary artery without angina pectoris; Z79.84 Long term (current) use of oral hypoglycemic drugs; M06.4 Inflammatory polyarthropathy; K57.33 Diverticulitis of large intestine without perforation or abscess with bleeding; I13.0 Hypertensive heart and chronic kidney disease with heart failure and stage 1 through stage 4 chronic kidney disease, or unspecified chronic kidney disease; E78.5 Hyperlipidemia, unspecified; I48.0 Paroxysmal atrial fibrillation; E11.9 Type 2 diabetes mellitus without complications; I25.2 Old myocardial infarction; Z88.8 Allergy status to other drugs, medicaments and biological substances; Z20.822 Contact with and (suspected) exposure to COVID-19; I21.A1 Myocardial infarction type 2; D47.2 Monoclonal gammopathy; D62 Acute posthemorrhagic anemia; I35.8 Other nonrheumatic aortic valve disorders; Z79.01 Long term (current) use of anticoagulants; N40.0 Benign prostatic hyperplasia without lower urinary tract symptoms; D50.9 Iron deficiency anemia, unspecified; Z79.52 Long term (current) use of systemic steroids; N18.30 Chronic kidney disease, stage 3 unspecified; Z79.899 Other long term (current) drug therapy; I50.32 Chronic diastolic (congestive) heart failure; Z79.82 Long term (current) use of aspirin

== ENCOUNTER 2023-02-26 19:28 | Inpatient (IN) ==
--- NOTE | 2023-02-26 19:44 | Emergency Department Note ---
Impression & Plan Generalized weakness, Hernia, hiatal, Leukocytosis, Ambulatory dysfunction, Left-sided chest wall pain ED Provider Note HISTORY OF PRESENT ILLNESS: Patient is an 87-year-old male presenting with left-sided chest wall pain after fall. Patient reports that he fell out of his recliner this evening and tried to catch himself, but ended up rolling off of the left side of the recliner. He states that he struck a bedside table and got wedged between the table and fireplace for about 30 minutes before he was able to hit his life alert button. He states he was too weak to get up. He ambulates with a walker at baseline. He is currently complaining of left chest wall pain. Denies any shortness of breath. He denies striking his head or loss of consciousness. He is on aspirin daily. Reports tetanus is up-to-date. He reports a few skin tears to his left arm. Denies any numbness or tingling in his extremities. ROS: as above PHYSICAL EXAM: Constitutional: Patient appears in no acute distress. HENT: Head: Normocephalic and atraumatic. Eyes: EOMI, PERRL Mouth/Throat: Mucous membranes moist. Neck: Trachea midline. Neck supple. No midline cervical spine tenderness to palpation. Cardiovascular: RRR, No murmurs, rubs or gallops. Intact distal pulses. Pulmonary/Chest: No respiratory distress. Breath sounds clear and equal bilaterally. No wheezes or rales. No chest wall tenderness to palpation. Abdominal: Abdomen soft, no tenderness, rebound or guarding. Back: No midline spinal tenderness, no paraspinal tenderness, no CVA tenderness. Patient is able to straight leg raise bilaterally without pain in the bilateral pelvis or low back. Musculoskeletal: No edema, tenderness or deformity noted. Skin: Warm and dry. 2 skin tears noted to the left forearm region. Psychiatric: Appropriate mood and affect for situation. Neurological: Alert and keenly responsive. CN II-XII grossly intact, moving all extremities equally and fully. MDM: - Vitals signs stable - History obtained via patient. Patient presents with left-sided chest wall pain after fall. Patient reports he slid out of his recliner this evening and tried to catch himself, but ended up going over the left side of the recliner. He states he struck a light bedside table and got wedged between the table and fireplace for about 30 minutes before he was able to call for help. He states he was too weak to get up. He states he ambulates with a walker or rollator at home. He is currently complaining of left-sided chest wall pain. Is any shortness of breath. He takes aspirin daily. Denies striking his head or loss of consciousness. - Chronic conditions affecting care: CAD; HTN; HLD; DM-2; CKD - Differential diagnoses include, but are not limited to: Rib fracture; intracranial hemorrhage; electrolyte abnormality; UTI; pneumonia - Order placed for continuous cardiac monitoring. At this time, monitor showed rate of 85 bpm with normal sinus rhythm, per my interpretation. - External medical records reviewed. EMS run sheet was reviewed. Patient was vitally stable in route. - Laboratory workup interpreted by myself showed leukocytosis (WBC 15.29) with left shift; stable electrolytes; hyperglycemia (glucose 218) - UA negative for infection, but noted to have glucosuria - CT head wo contrast negative for acute intracranial hemorrhage - CT cervical spine wo contrast negative for acute pathology - CT chest wo contrast showed large hiatal hernia with the entire stomach and a retrocardiac position. No rib fractures noted. - Patient initially given 5 mg PO oxycodone for left-sided chest wall pain - Attempted to get the patient up and around but he was too weak to get out of the bed. He reports he uses a walker or rollator at home. He does live home alone. - Discussion was had with healthcare representative about patient's case and need for admission - Hospitalist consulted for admission - [facility] ASSESSMENT AND PLAN: Diagnosis: Generalized weakness; left-sided chest wall pain; hiatal hernia; leukocytosis; ambulatory dysfunction Plan: Admit Past Med/Surg History Medical History Atrial fibrillation BPH (benign prostatic hyperplasia) CAD (coronary artery disease) 2011 - MARY to LAD Cardiac murmur Chronic back pain Chronic renal disease, stage III FOLLOWS Nel[place]/ DR. 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) Myocardial Infarction 2012 Non-ST elevation (NSTEMI) myocardial infarction Osteoarthritis Scoliosis Seronegative arthritis Surgical History History of cataract surgery RIGHT History of heart artery stent History of tooth extraction Family History Mother Coronary heart disease, Onset Age: 63 of [place] CHF (congestive heart failure) Myocardial infarction Father CHF (congestive heart failure) Pneumonia Sister Coronary heart disease History of CABG Rheumatic heart disease Social History Smoking Status: Never smoker Second Hand Exposure: Yes ( A CHILD); Do You Dip or Chew Tobacco: No; Hx Alcohol Use: No Hx Substance Use: No Preferred Language: Setswana Communication Ability: Effective Mechanical Design 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 Required: No Beliefs That Will Affect Care: None marital status: / Current Living Situation: Alone Feels Safe at Home: Yes Assistive Devices: Walker Allergies Allergies Allergy/AdvReac Type Severity Reaction Status Date / Time atenolol Allergy Unknown PT WAS Verified 02/26/23 19:53 TOLD NEVER TO TAKE AGAIN candesartan [From Atacand] AdvReac Intermediate HYPERKALEMI Verified 02/26/23 19:53 A lisinopril AdvReac Intermediate INCREASED Verified 02/26/23 19:53 CREATININE/HYPOTENSION Home Meds Home Medications Medication Instructions Recorded Confirmed albuterol sulfate 90 mcg/actuation 2 inh inhalation .Q4-6HR PRN 06/04/18 02/26/23 breath activated powder inhaler Shortness Of Breath Or Wheezing aspirin 81 mg tablet,delayed 81 mg PO QAM 06/04/18 02/26/23 release atorvastatin 80 mg tablet 80 mg PO QAM 06/04/18 02/26/23 furosemide 40 mg tablet 60 mg PO QAM 06/04/18 02/26/23 multivitamin-ferrous 1 tab PO DAILY 09/03/18 02/26/23 fumarate-folic acid 18 mg-400 mcg tablet (Centrum) carvedilol 12.5 mg tablet 12.5 mg PO AMHS 06/13/22 02/26/23 glipizide 2.5 mg tablet, extended 2.5 mg PO QAM 06/13/22 02/26/23 release 24 hr isosorbide mononitrate 60 mg 60 mg PO QAM 06/13/22 02/26/23 tablet,extended release 24 hr linagliptin 5 mg tablet (Tradjenta) 5 mg PO QAM 06/13/22 02/26/23 nitroglycerin 0.4 mg sublingual 0.4 mg sublingual DIRECTED PRN 06/13/22 02/26/23 tablet Chest Pain prednisone 5 mg tablet 5 - 15 mg PO QAM 06/13/22 02/26/23 sotalol 80 mg tablet 40 mg PO BID 06/13/22 02/26/23 terazosin 2 mg capsule 2 mg PO HS 06/13/22 02/26/23 coenzyme Q10 400 mg capsule 400 mg PO DAILY 02/26/23 02/26/23 empagliflozin 10 mg tablet 10 mg PO QAM 02/26/23 02/26/23 (Jardiance) losartan 50 mg tablet 50 mg PO QAM 02/26/23 02/26/23 Previous Rx's Medication Instructions Recorded docusate sodium 50 mg capsule 50 mg PO BID PRN constipation #60 07/23/22 (Colace Clear) caps Results & Data (ED) Vital Signs Vital Signs - 24 hr 02/26/23 19:29 02/26/23 19:33 02/26/23 22:00 Temperature 36.4 C L Temperature Source Oral Pulse Rate 83 85 Pulse Rate [Finger] 82 Respiratory Rate 18 18 Blood Pressure 122/84 Blood Pressure [Right Arm] 109/72 Blood Pressure Mean 96 Blood Pressure Mean [Right Arm] 84 Pulse Oximetry 95 98 Oxygen Delivery Method Room Air Room Air Sepsis Recent Fever Within 48 Hours No Sepsis New/Unexplained Change in Mental Status No Sepsis Action Taken by Nursing No Action Required 02/26/23 23:13 Temperature Temperature Source Pulse Rate 86 Pulse Rate [Finger] Respiratory Rate Blood Pressure Blood Pressure [Right Arm] Blood Pressure Mean Blood Pressure Mean [Right Arm] Pulse Oximetry Oxygen Delivery Method Sepsis Recent Fever Within 48 Hours Sepsis New/Unexplained Change in Mental Status Sepsis Action Taken by Nursing Laboratory Data 02/26/23 21:45 02/26/23 21:45 Lab Results 02/26/23 02/26/23 Range/Units 20:38 21:45 WBC 15.29 H (4.8-10.8) K/ul RBC 4.91 (4.70-6.10) M/uL Hgb 13.4 L (14.0-18.0) g/dl Hct 41.4 L (42.0-52.0) % MCV 84.3 (80.0-100.0) fL MCH 27.3 (25.0-34.0) pg MCHC 32.4 (32.0-36.0) g/dL RDW Std Deviation 47.9 H (36.4-46.3) fL RDW Coeff of Coty 15.9 H (11.5-14.5) % Plt Count 204 (130-400) K/uL MPV 10.5 (9.4-12.4) fL Immature Gran % (Auto) 1.8 % Neut % (Auto) 78.8 % Lymph % (Auto) 10.1 % Merrick % (Auto) 9.0 % Eos % (Auto) 0.1 % Baso % (Auto) 0.2 % Neut # (Auto) 12.05 H (1.40-6.50) K/uL Lymph # (Auto) 1.55 (1.20-3.40) K/uL Merrick # (Auto) 1.38 H (0.11-0.59) K/uL Eos # (Auto) 0.01 (0.00-0.50) K/uL Baso # (Auto) 0.03 (0.00-0.20) K/uL Immature Gran # (Auto) 0.27 H (0.01-0.20) K/uL Sodium 136 (136-145) mmol/L Potassium 4.1 (3.5-5.1) mmol/L Chloride 102 (98-107) mmol/L Carbon Dioxide 23 (21-32) mmol/L Anion Gap 11 (3-11) BUN 38 H (6-23) mg/dl Creatinine 0.66 (0.6-1.4) mg/dl Est Cr Clr Drug Dosing 64.9 ml/min Est GFR ( Amer) 100.0 ml/min Est GFR (Non-Af Amer) 86.3 ml/min BUN/Creatinine Ratio 57.6 H (10-20) Glucose 218 H (70-99(Fasting)) mg/dl Calcium 8.7 (8.6-10.3) mg/dl Magnesium 2.1 (1.7-2.4) mg/dl Total Bilirubin 0.5 (0.2-1.0) mg/dl AST 22 (13-39) U/L ALT 25 (7-52) U/L Alkaline Phosphatase 51 (34-104) U/L Total Protein 5.8 L (6.0-8.3) gm/dl Albumin 3.2 L (3.4-5.0) gm/dl Globulin 2.6 (2.5-4.0) gm/dl Albumin/Globulin Ratio 1.2 (0.9-2) Urine Color Yellow Urine Appearance Clear (Clear) Urine pH 7.0 (4.5-7.5) Ur Specific [place] 1.025 (1.000-1.030) Urine Protein Negative (Negative) Urine Glucose (UA) 3+ H (Negative) Urine Ketones Negative (Negative) Urine Blood Negative (Negative) Urine Nitrite Negative (Negative) Urine Bilirubin Negative (Negative) Urine Urobilinogen Negative (Negative) Ur Leukocyte Esterase Negative (Negative) Administered Medications Discontinued Medications Oxycodone HCl (Oxycodone Hcl Ir 5 Mg Tab (Immediate Release)) 5 mg PO NOW STA Stop: 02/26/23 20:40 Last Admin: 02/26/23 20:44 Dose: 5 mg Documented By: Imaging Data Radiologist's Impression: Cervical Spine CT 02/26/23 19:41 Exam(s): CT C SPINE EXAM: CT Cervical Spine Without Intravenous Contrast CLINICAL HISTORY: Reason for exam: trauma. TECHNIQUE: Axial computed tomography images of the cervical spine without intravenous contrast. CTDI is 21.93 mGy and DLP is 430.72 mGy-cm. Automated exposure control was utilized for the study. A dose lowering technique was utilized adhering to the principles of ALARA. COMPARISON: No relevant prior studies available. FINDINGS: The vertebral body heights are maintained. The craniocervical junction is intact. The atlanto-dens interval is maintained. The dens is intact. There is no spondylolisthesis. Multilevel cervical spondylosis and degenerative disc disease. Straightening of the cervical lordosis. The unenhanced neck soft tissues are grossly unremarkable. The visualized lung apices are grossly clear. IMPRESSION: No acute fracture or subluxation of the cervical spine. Electronically signed by: Chapincito Loera MD 02/26/23 20:[address] 02/26/23 19:41 Exam(s): CT HEAD Without Contrast EXAM: CT Head Without Intravenous Contrast CLINICAL HISTORY: Reason for exam: trauma. TECHNIQUE: Axial computed tomography images of the head/brain without intravenous contrast. CTDI is 37.01 mGy and DLP is 546.36 mGy-cm. Automated exposure control was utilized for the study. A dose lowering technique was utilized adhering to the principles of ALARA. COMPARISON: No relevant prior studies available. FINDINGS: No acute intracranial hemorrhage. No midline shift or mass effect. The territorial hu-white matter differentiation is maintained throughout. Age-related cerebral volume loss. Periventricular and subcortical white matter hypoattenuation, consistent with chronic microangiopathy. The visualized orbits appear grossly unremarkable. The calvarium is intact. The visualized paranasal sinuses and mastoid air cells are grossly clear. IMPRESSION: No acute intracranial hemorrhage, midline shift, or mass effect. Electronically signed by: Chapincito Loera MD 02/26/23 20:[address] 02/26/23 19:48 Exam(s): CT CHEST Without Contrast EXAM: CT Chest Without Intravenous Contrast CLINICAL HISTORY: Reason for exam: trauma; left-sided chest wall pain. TECHNIQUE: Axial computed tomography images of the chest without intravenous contrast. CTDI is 14.55 mGy and DLP is 484.54 mGy-cm. Automated exposure control was utilized for the study. A dose lowering technique was utilized adhering to the principles of ALARA. COMPARISON: No relevant prior studies available. FINDINGS: Lungs: Increased AP diameter of the chest and flattening of the diaphragms, concerning for COPD. Atelectasis at the LEFT lung base. No mass. Pleural space: Unremarkable. No pneumothorax. No significant effusion. Heart: Cardiomegaly. No significant pericardial effusion. No significant coronary artery calcifications. Mediastinum: Large hiatal hernia with the entire stomach in a retrocardiac position. Bones/joints: Degenerative changes of the spine. No acute fracture. No dislocation. Soft tissues: Mild gynecomastia. Vasculature: Atherosclerotic changes of the aorta. No thoracic aortic aneurysm. Lymph nodes: Unremarkable. No enlarged lymph nodes. IMPRESSION: 1. Large hiatal hernia with the entire stomach in a retrocardiac position. 2. Increased AP diameter of the chest and flattening of the diaphragms, concerning for COPD. Electronically signed by: Chapincito Loera MD 02/26/23 20:38 PM Discharge Plan Visit Data Chief Complaint: Fall ED Provider: Polinski,Myrtle Z. Discharge Problem: Generalized weakness, Hernia, hiatal, Leukocytosis, Ambulatory dysfunction, Left-sided chest wall pain
--- NOTE | 2023-02-26 20:36 | CT Scan Report ---
Exam(s): CT HEAD Without Contrast EXAM: CT Head Without Intravenous Contrast CLINICAL HISTORY: Reason for exam: trauma. TECHNIQUE: Axial computed tomography images of the head/brain without intravenous contrast. CTDI is 37.01 mGy and DLP is 546.36 mGy-cm. Automated exposure control was utilized for the study. A dose lowering technique was utilized adhering to the principles of ALARA. COMPARISON: No relevant prior studies available. FINDINGS: No acute intracranial hemorrhage. No midline shift or mass effect. The territorial hu-white matter differentiation is maintained throughout. Age-related cerebral volume loss. Periventricular and subcortical white matter hypoattenuation, consistent with chronic microangiopathy. The visualized orbits appear grossly unremarkable. The calvarium is intact. The visualized paranasal sinuses and mastoid air cells are grossly clear. IMPRESSION: No acute intracranial hemorrhage, midline shift, or mass effect. Electronically signed by: Chapincito Loera MD 02/26/23 20:35 PM
--- NOTE | 2023-02-26 20:37 | CT Scan Report ---
Exam(s): CT C SPINE EXAM: CT Cervical Spine Without Intravenous Contrast CLINICAL HISTORY: Reason for exam: trauma. TECHNIQUE: Axial computed tomography images of the cervical spine without intravenous contrast. CTDI is 21.93 mGy and DLP is 430.72 mGy-cm. Automated exposure control was utilized for the study. A dose lowering technique was utilized adhering to the principles of ALARA. COMPARISON: No relevant prior studies available. FINDINGS: The vertebral body heights are maintained. The craniocervical junction is intact. The atlanto-dens interval is maintained. The dens is intact. There is no spondylolisthesis. Multilevel cervical spondylosis and degenerative disc disease. Straightening of the cervical lordosis. The unenhanced neck soft tissues are grossly unremarkable. The visualized lung apices are grossly clear. IMPRESSION: No acute fracture or subluxation of the cervical spine. Electronically signed by: Chapincito Loera MD 02/26/23 20:35 PM
[2023-02-26] MEDS ORDERED: oxyCODONE HCL IR 5 MG TAB (IMMEDIATE RELEASE) PO STA (20:39)
--- NOTE | 2023-02-26 20:39 | CT Scan Report ---
Exam(s): CT CHEST Without Contrast EXAM: CT Chest Without Intravenous Contrast CLINICAL HISTORY: Reason for exam: trauma; left-sided chest wall pain. TECHNIQUE: Axial computed tomography images of the chest without intravenous contrast. CTDI is 14.55 mGy and DLP is 484.54 mGy-cm. Automated exposure control was utilized for the study. A dose lowering technique was utilized adhering to the principles of ALARA. COMPARISON: No relevant prior studies available. FINDINGS: Lungs: Increased AP diameter of the chest and flattening of the diaphragms, concerning for COPD. Atelectasis at the LEFT lung base. No mass. Pleural space: Unremarkable. No pneumothorax. No significant effusion. Heart: Cardiomegaly. No significant pericardial effusion. No significant coronary artery calcifications. Mediastinum: Large hiatal hernia with the entire stomach in a retrocardiac position. Bones/joints: Degenerative changes of the spine. No acute fracture. No dislocation. Soft tissues: Mild gynecomastia. Vasculature: Atherosclerotic changes of the aorta. No thoracic aortic aneurysm. Lymph nodes: Unremarkable. No enlarged lymph nodes. IMPRESSION: 1. Large hiatal hernia with the entire stomach in a retrocardiac position. 2. Increased AP diameter of the chest and flattening of the diaphragms, concerning for COPD. Electronically signed by: Chapincito Loera MD 02/26/23 20:38 PM
[2023-02-26 20:45] LABS: Appearance Urine Clear (Clear); Bilirubin Urine Negative (Negative); Blood Urine Negative (Negative); Color Urine Yellow; Glucose Urine UA 3+ (Negative); Ketones Urine Negative (Negative); Leukocyte Esterase Urine Negative (Negative); Nitrite Urine Negative (Negative); Protein Urine Negative (Negative); Specific Gravity Urine 1.025 (1.000-1.030); Urobilinogen Urine Negative (Negative)
[2023-02-26 22:19] LABS: Basophils # (auto) 0.03 K/uL (0.00-0.20); Basophils % (auto) 0.2 %; Eosinophils # (auto) 0.01 K/uL (0.00-0.50); Eosinophils % (auto) 0.1 %; Hematocrit (blood only) 41.4 % (42.0-52.0); Hemoglobin 13.4 g/dl (14.0-18.0); Immature Granulocytes # (auto) 0.27 K/uL (0.01-0.20); Immature Granulocytes % (auto) 1.8 %; Lymphocytes # (auto) 1.55 K/uL (1.20-3.40); Lymphocytes % (auto) 10.1 %; Mean Corpuscular Hemoglobin 27.3 pg (25.0-34.0); Mean Corpuscular Hgb Conc 32.4 g/dL (32.0-36.0); Mean Corpuscular Volume 84.3 fL (80.0-100.0); Mean Platelet Volume 10.5 fL (9.4-12.4); Monocytes # (auto) 1.38 K/uL (0.11-0.59); Neutrophils # (auto) 12.05 K/uL (1.40-6.50); Neutrophils % (auto) 78.8 %; Platelet Count 204 K/uL (130-400); RDW Coefficient of Variation 15.9 % (11.5-14.5); RDW Standard Deviation 47.9 fL (36.4-46.3); Red Blood Count 4.91 M/uL (4.70-6.10); White Blood Count 15.29 K/ul (4.8-10.8)
[2023-02-26 22:41] LABS: Albumin Level 3.2 gm/dl (3.4-5.0); Bilirubin,Total 0.5 mg/dl (0.2-1.0); Calcium 8.7 mg/dl (8.6-10.3); Magnesium 2.1 mg/dl (1.7-2.4); Potassium 4.1 mmol/L (3.5-5.1)
[2023-02-26 22:47] LABS: Albumin Globulin Ratio 1.2 (0.9-2); BUN Creatinine Ratio 57.6 (10-20); Creatinine Clr Calc Pharmacy 64.9 ml/min; Est GFR (Non-African American) 86.3 ml/min; Globulin 2.6 gm/dl (2.5-4.0); Total Protein 5.8 gm/dl (6.0-8.3)
[2023-02-26] MEDS ORDERED: carvediloL 12.5 MG TAB PO ONE (23:52)
[2023-02-26] MEDS ORDERED: TERAZOSIN HCL 1 MG CAP PO ONE (23:52)
[2023-02-26] MEDS ORDERED: SOTALOL HCL 80 MG TAB PO ONE (23:52)
[2023-02-27] MEDS ORDERED: GLUCOSE 10 TAB/TUBE PO PRN (00:08)
[2023-02-27] MEDS ORDERED: DEXTROSE 50% 50 ML SYRINGE IV PRN (00:08)
[2023-02-27] MEDS ORDERED: CARBOHYDRATES FOR HYPOGLYCEMIA PO PRN (00:08)
[2023-02-27] MEDS ORDERED: ACETAMINOPHEN 325 MG TAB PO PRN (00:08)
[2023-02-27] MEDS ORDERED: GLUCOSE 40% GEL 15 GM TUBE PO PRN (00:08)
[2023-02-27] MEDS ORDERED: NITROGLYCERIN SL 0.4 MG/TAB TAB SL PRN (00:08)
[2023-02-27] MEDS ORDERED: POLYETHYLENE (MIRALAX) 17 GM PACK PO PRN (00:08)
[2023-02-27] MEDS ORDERED: GLUCAGON FOR INJ 1 MG VIAL SQ PRN (00:08)
--- OUTSIDE RECORDS SUMMARY | 2023-02-27 00:10 | External Medical Summary | Summary of Care ---
Author Name Unknown Organization [facility] Address [address] [place] [address] Phone [phone] Care Team Providers Care Real Estate Recruiter Name Role Phone Eldon Dowd MD Primary Care Provider [phone] Reason for Visit * Reason Comments Acute Ears check and possi ble cleaning Encounter Details Date Type Department Care Team (Late st Contact Info) Description 12/25/2022 9:30 AM EDT Nurse Only Ancillary Department, [place] [address] [place] [address] [place], Nurse [address] [place] [address] Acute (Ears check and possible cleaning) Allergies Active Allergy Reactions Criticality Noted Date Comments Candesartan Cilexetil 01/04/2012 hyperkalemia Atenolol 08/21/2012 Pt was told not to take this again Other reaction(s): PT WAS TOLD NEVER TO TAKE AGAIN Candesartan High 06/13/2022 Other reaction(s): HYPERKALEMIA Lisinopril Other (Please comment) High 01/16/2014 Hypotension/ Increased creatinine Other reaction(s): INCREASED CREATININE/HYPOTENSION documented as of this encounter (statuses as of 02/26/2023) Medications Medication Sig Dispensed Refills Start Date End Date Status CENTRUM PO TABS as directed 0 0 07/03/2008 Active ASPIRIN 81 MG PO CHEWIndications:Ot her specified prophylactic or treatment measure One pill by mouth once a day with food 100 Tab 5 05/12/2010 Active COENZYME Q10 400 MG PO CAPSIndications:Hi gh triglycerides,Dysl ipidemia, goal LDL below 100 1 CAPSULE DAILY 30 Cap 5 09/20/2011 Active Glucose Blood (ONETOUCH VERIO) STRP Use up to 1 times a day E11.9 100 Strip 3 05/23/2018 Active albuterol HFA (PROVENTIL HFA) 108 (90 BASE) MCG/ACT inhalerIndications :Bronchitis, complicated Use 2 puffs every 4-6hrs as needed for wheezing/short ness of breath 1 Inhaler 3 09/06/2018 Active linaGLIPtin 5 MG Oral Tablet (Tradjenta)Indicat ions:Type 2 diabetes mellitus with hemoglobin A1c goal of less than 8.0% (HCC) Take 1 Tablet by mouth in the morning. 90 Tablet 3 04/04/2022 Active Carvedilol 12.5 MG Oral Tablet (Coreg)Indications :CAD (coronary artery disease),Paroxysma l atrial fibrillation (HCC) Take 1 Tablet by mouth in the morning and 1 Tablet before bedtime. 180 Tablet 3 08/25/2022 Active Metamucil Fiber Oral Tablet Chewable Take by mouth. 0 Active Terazosin HCl 2 MG Oral CapsuleIndications :HTN, goal below 150/90 TAKE ONE CAPSULE BY MOUTH AT BEDTIME 90 Capsule 3 10/11/2022 Active Isosorbide Mononitrate ER 60 MG Oral Tablet Extended Release 24 Hour (Imdur)Indications :Coronary artery disease involving [place] coronary artery of [place] heart without angina pectoris,NSTEMI (non-ST elevated myocardial infarction) ([facility]) TAKE ONE TABLET BY MOUTH EVERY MORNING. 90 Tablet 3 10/11/2022 Active predniSONE 5 MG Oral Tablet (Deltasone) TAKE 1 TO 3 TABLETS BY MOUTH DAILY 100 Tablet 5 10/16/2022 10/16/2023 Active Atorvastatin Calcium 80 MG Oral Tablet (Lipitor)Indicatio ns:Encounter for long-term (current) use of other medications TAKE ONE TABLET BY MOUTH DAILY 90 Tablet 1 11/15/2022 11/15/2023 Active Losartan Potassium 50 MG Oral Tablet (Cozaar)Indication s:Hypertensive kidney disease with stage 3a chronic kidney disease (HCC) Take 1 Tablet by mouth in the morning. 30 Tablet 5 12/22/2022 Active Sotalol HCl 80 MG Oral Tablet (Betapace) TAKE 1/2 TABLET BY MOUTH TWICE DAILY 90 Tablet 3 01/24/2022 01/21/2023 Discontinue d(Refill) Empagliflozin 10 MG Oral Tablet (Jardiance) TAKE ONE TABLET BY MOUTH IN THE MORNING 30 Tablet 5 06/21/2022 01/21/2023 Discontinue d(Refill) Furosemide 40 MG Oral Tablet (Lasix) Take one tablet in the morning 90 Tablet 3 09/20/2022 01/19/2023 Discontinue d(Refill) documented as of this encounter (statuses as of 02/26/2023) Active Problems Problem Noted Date Diagnosed Date Protein-calorie malnutrition 12/21/2022 Chronic venous insufficiency of lower extremity 09/15/2022 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 01/20/2021 Chronic kidney disease, stage 3a 08/10/2020 Overview: Per CKD protocol Hypertensive kidney disease with stage 3a chronic kidney disease 02/09/2020 Overview: Per CKD protocol Chronic diastolic congestive heart failure 01/16 Renal osteodystrophy 01/16/2019 Type 2 diabetes mellitus with chronic kidney dis ease 01/16/2019 Old myocardial infarct 12/03/2018 Paroxysmal atrial fibrillation 10/30/2018 Type 2 diabetes mellitus wit h hemoglobin A1c goal of less than 8.0% 09/10/2018 Inflammatory polyarthropathies 09/06/2018 Spinal stenosis of lumbar re gion with neurogenic claudication 01/10/2017 HTN, goal below 130/80 01/31/2016 CAD (coronary artery disease) 07/03/2012 Dyslipidemia 09/20/2011 Monoclonal paraproteinemia 11/14/2010 documented as of this encounter (statuses as of 02/26/2023) Resolved Problems Problem Noted Date Diagnosed Date Resolved Date Hypertensive kidney disease with chronic kidney disease stage III 10/30/2018 02/12/2020 Overview: Per CKD protocol Chest discomfort 02/23/2015 09/01/2016 Viral URI with cough 03/25/2014 017 Accelerate Clinical Trial*[id number] 08/27/2012 08/27/2012 Accelerate Clinical Trial*[id number] 08/27/2012 03/29/2015 Overview: ACCELERATE STUDY. Project # [id number], TELEVISION PRESENTER: Basil Everett MD. CRC: GENE Whitney. SUMMARY: To test the hypothesis that Evacetrapib 130 mg, in comparison to placebo, reduces the risk of major adverse coronary events in high-risk vascular disease patients. CONTACTS: During normal business hours, contact study staff at ; after hours Painter Maintenance via the [facility] hospital round cutter operator [phone]. 24-hour Global Study Helpline: [phone]. Lipid levels should not be ordered/obtained while this subject is in the Accelerate study. Lipids are being managed in a blinded fashion. If lipid levels are inadvertently obtained, it is important that test results are NOT provided to the patient, study doctor, nutrition coordinator, or other study team members. Restricted meds while in the study: 1) niacin > 250 mg, 2) gemfibrozil with a potent [id number]. Hyperglycemia 02/18/2012 01/10/2017 NSTEMI (non-ST elevated myoc ardial infarction) 02/13/2012 12/03/2018 Diastolic dysfunction 01/04/20122020 HTN, goal below 140/90 09/20/201110/18 History of hyperkalemia 06/30/201112/31 Kidney disease, chronic, sta ge III (GFR 30-59 ml/min) 05/18/2011 11/14/2018 Shortness of breath 04/21/2011 09/02/19 17 High triglycerides 04/21/2011 1 Other paraproteinemias 09/13/201009/01 Dyslipidemia, goal to be determined 03/11/2009 09/20/2011 Overview: Per Lipid Taxonomy. HTN, goal below 140/90 02/17/200909/19 Overview: Modified per HTN protocol #16. ADVANCE DIRECTIVE INFORMATION 02/17/2005 03/20/2019 Overview: No, Advance Directive brochure given to patient. GLOBAL TRANSIENT AMNESIA 02/13/2000 07/ ABNORM ELECTROCARDIOGRAM 02/13/200001/2017 HYPERTENSION NOS 02/18/2009 Overview: Modified per HTN protocol #16. Mixed dyslipidemia 9 Overview: Per Lipid Taxonomy. DIVERTICULOSIS OF COLON 12/31 documented as of this encounter (statuses as of 02/26/2023) Immunizations Name Administration Dates Next Due COVID-19 mRNA, LNP-s, No Pre serve, 2-Dose Series (Moderna) 06/04/2020,05/07/2020 COVID-19, mRNA, LNP-s, PF, B ooster, 100mcg/0.5mg (Moderna) 01/16/2022,07/18/2021,02/14/2021 Pneumococcal Conjugate Vacc, 13 Valent (Prevnar) 11/19/2014 Pneumococcal Polysaccharide PPV23 (Pneumovax) 02/17/2005,01/31/1998 SEASONAL INFLUENZA, PF, 6 M & Above, IM , (FLULAVAL or FLUZONE) 12/31/2019,01/02/2019,01/23/2018,01/10 Seasonal Influenza, Quadriva lent Hd (Fluzone Hd) 12/13/2022,01/04/2022,12/28/2020 Seasonal Influenza, Quadriva lent, No Preserve, IM 01/31/2016,01/22/2015 Seasonal Influenza, Split, I IV3, With Preserve, Inj 01/16/2014,12/13/2012,12/06/2011,12/26,01/18/2010,01/07/2009,01/28/2008 ,03/14/2006 TD - Tetanus/Diptheria (ADULT) 03/14/2006 TDAP (age 10 and older)(Boostrix) 05/24/2015 Varicella Zoster Vaccine (Adult) 01/06/2011 Zoster Vaccine Recombinant (Shingrix) 07/12/2021 ,01/02/2019 documented as of this encounter Social History Tobacco Use Types Packs/Day Years Used Date Smoking Tobacco: Never Passive Smoke Exposure: Never Smokeless Tobacco: Never Alcohol Use Standard Drinks/Week Comments No 0 (1 standard drink = 0.6 oz pur e alcohol) PHQ-2 Answer Date Recorded PHQ Adult Total Score 0 10/09/2022 Hunger Vital Sign Answer Date Recorded Within the past 12 months, y ou worried that your food would run out before you got the money to buy more. Never true 10/10/19 23 Within the past 12 months, t he food you bought just didn't last and you didn't have money to get more. Never true 10/09/2022 Sex and Gender Information Value Date Recorded Sex Assigned at Male 09/10/2018 3:17 PM EDT Gender Identity Male 09/10/2018 3:17 PM EDT Sexual Orientation Straight 09/10/2018 3: 17 PM EDT Job Start Date Occupation Industry Not on file Not on file Not on file documented as of this encounter Plan of Treatment Upcoming Encounters Date Type Department Care Team (Late st Contact Info) Description 03/08/2023 8:45 AM EST Office Visit Orthopaedics [facility] [address] [address] Aaron Boss MD [address] [place] [phone] 03/22/2023 8:00 AM EST Office Visit [facility] [address] [place] [phone] Eldon Dowd MD [address] [place] [address] 04/05/2023 9:30 AM EST Office Visit Interventional Pain Center, [facility] [address] [place] [address] Enio Shepherd DO [address] [place] [phone] 05/16/2023 11:00 AM EST Office Visit Hematology[facility] [place] [address] [place] [address] Patricia Conway MD [address] [place] [address] 06/11/2023 8:00 AM EDT Office Visit Cardiology, [facility] [address] [place] [address] James Reyes PA-C [address] [place] [address] 06/21/2023 9:00 AM EDT Office Visit Orthopaedics [facility] [address] [place] [address] Jeison Arteaga, [address] [place] [address] 07/06/2023 10:00 AM EDT Office Visit Nephrology, [facility] [address] [facility] [place] [address] Lili Rodríguez MD [address] [facility] [place] [address] 07/31/2023 8:00 AM EDT Office Visit Urology, [facility] [address] [place] [address] Andrea Antony MD [address] [facility] [address] [place] [address] 10/11/2023 10:00 AM EDT Nurse Only Ancillary Department, [place] [address] [place] [address] [place], Nurse [facility] [address] [place] [address] Health Maintenance Due Date Last Done Comments Hepatitis B (1 of 3 - Risk 3-dose series) 1994 Diabetic Eye Exam 04/25/2022 04/25/2021, , 12/30/2018 COVID-19 Vaccine ( season) 2022 01/16/2022, 07/18/2021, 02/14/2021, Additional history exists HbA1c 03/23/2023 09/21/2022, 05/31, 12/12/2021, Additional history exists CKD HGB USE SMARTSET 33576 09/15/202309/14, 05/16/2022, 05/16/2022, Additional history exists Depression Screening 10/10/2023 10/09/2022 Diabetic Foot Exam 10/10/2023 10/09/2022, 0 08/30/2021, 10/31/2019, Additional history exists Albumin/Creatinine Ratio 12/16/2023 023, 03/22/2022, 03/30/2021, Additional history exists CKD PHOS USE SMARTSET 66551 12/16/202312/01, 12/12/2021, 12/02/2019, Additional history exists DTaP,Tdap,and Td Vaccines (2 - Td or Tdap) 05/24/2025 05/24/2015, 03/14/2006, 05/03/1993 Pneumococcal Vaccine: 65+ Years Completed 11/19/2014, 02/17/2005, 01/31/1998 Zoster Vaccines Completed 07/12/2021, 1005/2018, 01/06/2011 Influenza Vaccine (FLU shot) Completed , 01/04/2022, 12/28/2020, Additional history exists GARDASIL-HPV IMMUNIZATION SERIES Aged Out No longer eligible based on patient's age to complete this topic MENINGOCOCCAL (MENACTRA/MENVEO) Aged Out No longer eligible based on patient's age to complete this topic documented as of this encounter Medical Devices Not on filedocumented as of this encounter Care Teams Real Estate Recruiter Relationship Specialty Start Date End Date Eldon Dowd MD [address] [place] [address] PCP - General Family Medicine 12/05/18 documented as of this encounter
--- OUTSIDE RECORDS SUMMARY | 2023-02-27 00:11 | External Medical Summary | Summary of Care ---
Author Name Unknown Organization [facility] Address [address] [place] [address] Phone [phone] Care Team Providers Care Collections Rep Name Role Phone Eldon Dowd MD Primary Care Provider [phone]- [phone] Reason for Visit * Reason Onset Date Comments Fax 02/05/2023 Encounter Details Date Type Department Care Team (Late st Contact Info) Description 02/05/2023 Telephone [facility] [address] [place] [address] Eldon Dowd MD [address] [place] [address] Fax Allergies Active Allergy Reactions Criticality Noted Date Comments Candesartan Cilexetil 01/04/2012 hyperkalemia Atenolol 08/21/2012 Pt was told not to take this again Other reaction(s): PT WAS TOLD NEVER TO TAKE AGAIN Candesartan High 06/13/2022 Other reaction(s): HYPERKALEMIA Lisinopril Other (Please comment) High 01/16/2014 Hypotension/ Increased creatinine Other reaction(s): INCREASED CREATININE/HYPOTENSION documented as of this encounter (statuses as of 02/05/2023) Medications Medication Sig Dispensed Refills Start Date End Date Status CENTRUM PO TABS as directed 0 0 07/03/2008 Active ASPIRIN 81 MG PO CHEWIndications:Othe r specified prophylactic or treatment measure One pill by mouth once a day with food 100 Tab 5 05/12/2010 Active COENZYME Q10 400 MG PO CAPSIndications:High triglycerides,Dyslip idemia, goal LDL below 100 1 CAPSULE DAILY 30 Cap 5 09/20/2011 Active Glucose Blood (ONETOUCH VERIO) STRP Use up to 1 times a day E11.9 100 Strip 3 05/23/2018 Active albuterol HFA (PROVENTIL HFA) 108 (90 BASE) MCG/ACT inhalerIndications:B ronchitis, complicated Use 2 puffs every 4-6hrs as needed for wheezing/shortn ess of breath 1 Inhaler 3 09/06/2018 Active linaGLIPtin 5 MG Oral Tablet (Tradjenta)Indicatio ns:Type 2 diabetes mellitus with hemoglobin A1c goal of less than 8.0% (HCC) Take 1 Tablet by mouth in the morning. 90 Tablet 3 04/04/2022 Active Carvedilol 12.5 MG Oral Tablet (Coreg)Indications:C AD (coronary artery disease),Paroxysmal atrial fibrillation (HCC) Take 1 Tablet by mouth in the morning and 1 Tablet before bedtime. 180 Tablet 3 08/25/2022 Active Metamucil Fiber Oral Tablet Chewable Take by mouth. 0 Activ e Terazosin HCl 2 MG Oral CapsuleIndications:H TN, goal below 150/90 TAKE ONE CAPSULE BY MOUTH AT BEDTIME 90 Capsule 3 10/11/2022 Active Isosorbide Mononitrate ER 60 MG Oral Tablet Extended Release 24 Hour (Imdur)Indications:C oronary artery disease involving [place] coronary artery of [place] heart without angina pectoris,NSTEMI (non-ST elevated myocardial infarction) ([facility]) TAKE ONE TABLET BY MOUTH EVERY MORNING. 90 Tablet 3 10/11/2022 Active predniSONE 5 MG Oral Tablet (Deltasone) TAKE 1 TO 3 TABLETS BY MOUTH DAILY 100 Tablet 5 10/16/2022 10/16/2023 Active Atorvastatin Calcium 80 MG Oral Tablet (Lipitor)Indications :Encounter for long-term (current) use of other medications TAKE ONE TABLET BY MOUTH DAILY 90 Tablet 1 11/15/2022 11/15/2023 Active Losartan Potassium 50 MG Oral Tablet (Cozaar)Indications: Hypertensive kidney disease with stage 3a chronic kidney disease (HCC) Take 1 Tablet by mouth in the morning. 30 Tablet 5 12/22/2022 Active Furosemide 40 MG Oral Tablet (Lasix) Take 1&1/2 Tablets by mouth in the morning. 135 Tablet 3 01/19/2023 Active Sotalol HCl 80 MG Oral Tablet (Betapace)Indication s:Paroxysmal atrial fibrillation (HCC) TAKE 1/2 TABLET BY MOUTH TWICE DAILY 90 Tablet 3 01/22/2023 01/22/2024 Active Empagliflozin 10 MG Oral Tablet (Jardiance) TAKE ONE TABLET BY MOUTH IN THE MORNING 30 Tablet 5 01/22/2023 01/22/2024 Active documented as of this encounter (statuses as of 02/05/2023) Active Problems Problem Noted Date Diagnosed Date [...] as of this encounter (statuses as of 02/05/2023) Resolved Problems Problem Noted Date Diagnosed Date Resolved Date Hypertensive kidney disease with chronic kidney disease stage III 10/30/2018 02/12/2020 Overview: Per CKD protocol Chest discomfort 02/23/2015 09/01/2016 Viral URI with cough 03/25/2014 017 Accelerate Clinical Trial*[id number] 08/27/2012 08/27/2012 Accelerate Clinical Trial*[id number] 08/27/2012 03/29/2015 Overview: ACCELERATE STUDY. Project # [id number], MEDICAL AFFAIRS MANAGER: Basil Everett MD. CRC: GENE Whitney. SUMMARY: To test the hypothesis that Evacetrapib 130 mg, in comparison to placebo, reduces the risk of major adverse coronary events in high-risk vascular disease patients. CONTACTS: During normal business hours, contact study staff at ; after hours Dump Operator via the [facility] hospital component prep operator [phone]. 24-hour Global Study Helpline: [phone]. Lipid levels should not be ordered/obtained while this subject is in the Accelerate study. Lipids are being managed in a blinded fashion. If lipid levels are inadvertently obtained, it is important that test results are NOT provided to the patient, study doctor, student outreach coordinator, or other study team members. Restricted meds while in the study: 1) niacin > 250 mg, 2) gemfibrozil with a potent [id number]. Hyperglycemia 02/18/2012 01/10/2017 NSTEMI (non-ST elevated myoc [...] given to patient. GLOBAL TRANSIENT AMNESIA 02/13/2000 ABNORM ELECTROCARDIOGRAM 02/13/200001/2017 HYPERTENSION NOS 02/18/2009 Overview: Modified per HTN protocol #16. Mixed dyslipidemia 9 Overview: Per Lipid Taxonomy. DIVERTICULOSIS OF COLON 12/31 documented as of this encounter (statuses as of 02/05/2023) Immunizations Name Administration Dates Next Due COVID-19 [...] on file documented as of this encounter Miscellaneous Notes * Telephone Encounter - Hiren Diaz OSA - 02/05/2023 1:41 PM EST Caller requesting the following information to be faxed: Name/Company of caller: [employer] [employer] Information requested to be faxed: Last two office visit notes Fax number: [phone] Attention to Name/Company: [employer] Any additional information?: Urgent request documented in this encounter Plan of Treatment Upcoming Encounters Date Type Department Care Team (Late st Contact Info) Description 02/15/2023 10:00 AM EST Office Visit Orthopaedics [facility] [address] [place] [address] Jeison Arteaga DO [address] [place] [address] 02/15/2023 11:30 AM EST Office Visit Orthopaedics [facility] [address] [place] [address] Aaron Boss MD [address] [place] [address] 03/22/2023 8:00 AM EST Office Visit [address] [place] [phone] Eldon Dowd MD [address] [place] [facility] [place] [address] 05/16/2023 11:00 AM EST Office Visit Hematology/Oncology [facility] [address] [facility] [place] [address] Patricia Conway MD [address] [facility] [place] [address] 06/11/2023 8:00 AM EDT Office Visit Cardiology, [facility] [address] [facility] [place] [address] James Reyes PA-C [address] [place] [address] 07/06/2023 10:00 AM EDT Office Visit Nephrology, [facility] [address] [facility] [place] [address] Lili Rodríguez MD [address] [facility] [place] [address] 07/31/2023 8:00 AM EDT Office Visit Urology, [facility] [address] [place] [address] Andrea Antony MD [address] [address] [place] [address] 10/11/2023 10:00 AM EDT Nurse Only Ancillary Department, [place] [address] [facility] [address] [place], Nurse [facility] [address] [facility] [address] Health Maintenance Due Date Last Done Comments Hepatitis B (1 of 3 - Risk 3-dose series) 1994 Diabetic Eye Exam 04/25/2022 04/25/2021, , 12/30/2018 COVID-19 Vaccine ( season) 2022 01/16/2022, 07/18/2021, 02/14/2021, Additional history exists HbA1c 03/23/2023 09/21/2022, 05/31, 12/12/2021, Additional history exists CKD HGB USE SMARTSET 90444 09/15/202309/14, 05/16/2022, 05/16/2022, Additional history exists Depression Screening 10/10/2023 10/09/2022 Diabetic Foot Exam 10/10/2023 10/09/2022, 0 08/30/2021, 10/31/2019, Additional history exists Albumin/Creatinine Ratio 12/16/2023 023, 03/22/2022, 03/30/2021, Additional history exists CKD PHOS USE SMARTSET 27620 12/16/202312/01, 12/12/2021, 12/02/2019, Additional history exists DTaP,Tdap,and [...] filedocumented as of this encounter Care Teams Collections Rep Relationship Specialty Start Date End Date Eldon Dowd MD [address] [place] [address] PCP - General Family Medicine 12/05/18 documented as of this encounter
--- OUTSIDE RECORDS SUMMARY | 2023-02-27 00:11 | External Medical Summary | Summary of Care ---
Author Name Unknown Organization [facility] Address [address] [place] [address] Phone [phone] Care Team Providers Care Cash Management Associate Name Role Phone Eldon Dowd MD Primary Care Provider [phone]- [phone] Reason for Visit * Reason Onset Date Comments Fax 01/23/2023 [facility] Supplies Status Check 01/23/2023 Encounter Details Date Type Department Care Team (Late st Contact Info) Description 01/23/2023 Telephone [facility] [address] [place] [address] Eldon Dowd MD [address] [place] [address] Fax ([facility] Med Supplies); Status C... 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,NSTEMI (non-ST elevated myocardial infarction) ([facility]) TAKE ONE TABLET BY MOUTH EVERY [...] as of this encounter (statuses as of 02/02/2023) Active Problems Problem Noted Date Diagnosed Date [...] as of this encounter (statuses as of 02/02/2023) Resolved Problems Problem Noted Date Diagnosed Date Resolved Date Hypertensive kidney disease with chronic kidney disease stage III 10/30/2018 02/12/2020 Overview: Per CKD protocol Chest discomfort 02/23/2015 09/01/2016 Viral URI with cough 03/25/2014 017 Accelerate Clinical Trial*[id number] 08/27/2012 08/27/2012 Accelerate Clinical Trial*[id number] 08/27/2012 03/29/2015 Overview: ACCELERATE STUDY. Project # [id number], PROFESSIONAL SERVICES MANAGER: Basil Everett MD. CRC: GENE Whitney. SUMMARY: To test the hypothesis that Evacetrapib 130 mg, in comparison to placebo, reduces the risk of major adverse coronary events in high-risk vascular disease patients. CONTACTS: During normal business hours, contact study staff at ; after hours Director Of Recreation Therapy via the [facility] hospital towel rolling machine operator [phone]. 24-hour Global Study Helpline: [phone]. Lipid levels should not be ordered/obtained while this subject is in the Accelerate study. Lipids are being managed in a blinded fashion. If lipid levels are inadvertently obtained, it is important that test results are NOT provided to the patient, study doctor, administrative assistant coordinator, or other study team members. Restricted meds while in the study: 1) niacin > 250 mg, 2) gemfibrozil with a potent [id number]. Hyperglycemia 02/18/2012 01/10/2017 NSTEMI (non-ST elevated myoc [...] as of this encounter (statuses as of 02/02/2023) Immunizations Name Administration Dates Next Due COVID-19 mRNA, LNP-s, No Pre serve, 2-Dose Series (Moderna) 06/04/2020,05/07/2020 COVID-19, mRNA, LNP-s, PF, B ooster, 100mcg/0.5mg (Moderna) 01/16/2022,07/18/2021,02/14/2021 Diptheria/Tetanus (Adult) 05/03/1993 Pneumococcal Conjugate Vacc, 13 Valent (Prevnar) 11/19/2014 Pneumococcal Polysaccharide PPV23 (Pneumovax) 02/17/2005,01/31/1998 SEASONAL INFLUENZA, PF, 6 M & Above, IM , (FLULAVAL or FLUZONE) 12/31/2019,01/02/2019,01/23/2018,01/10 Seasonal Influenza Virus Vac cine, Unspecified Formulation 01/15/1998,12/31/1996,01/01/1996 Seasonal Influenza, Quadriva lent Hd (Fluzone Hd) [...] encounter Miscellaneous Notes * Telephone Encounter - Ad Nicole OSA - 02/01/2023 2:20 PM EDT Patient calling in to check on the status of previous message. Would like it signed and faxed back by the end of the day. Patient Called after 48 hour timeframe and escalation e-mail was sent to clinic leadership. * Telephone Encounter - Lorrie Rodrigues OSA - 01/29/2023 9:49 AM EDT Faisal calling back to check if fax has been sent yet. Told him not yet. URI [place] * Telephone Encounter - Cristina Cantor OSA - 01/24/2023 1:17 PM EDT LMOM for Faisal letting him know that we received paperwork. 01/24/2023 * Telephone Encounter - Leyla Nicole OSA - 01/23/2023 11:24 AM EDT Received a call asking if fax was received by office. Name/Company sending fax: Faisal from [email or web address] What fax is pertaining to: Demian Pugh 2 Date(s) they sent request: 01/23/2023 Verified fax number they are sending to is correct (Y or N): Y Callback Number for the clinic to call to verified if fax was received: [phone] Did advise they wait 24 hrs as our fax can go on a 24 hr cycling period and an additional 48 to obtain and directit where it needs to go documented in this encounter Plan of Treatment Upcoming Encounters Date Type Department Care Team (Late st Contact Info) Description 02/15/2023 10:00 AM EST Office Visit Orthopaedics [facility] [address] [place] [address] Jeison Arteaga DO [address] [place] [address] 02/15/2023 11:30 AM EST Office Visit Orthopaedics [facility] [address] [place] [address] Aaron Boss MD [address] [place] [phone] 03/22/2023 8:00 AM EST Office Visit [facility] [address] [facility] [phone] Eldon Dowd MD [address] [place] [facility] [place] [address] 05/16/2023 11:00 AM EST Office Visit Hematology/Oncology [facility] [address] [place] [address] Patricia Conway MD [address] [facility] [place] [address] 06/11/2023 8:00 AM EDT Office Visit Cardiology, [facility] [address] [place] [address] James Reyes PA-C [address] [facility] [place] [address] 07/06/2023 10:00 AM EDT Office Visit Nephrology, [facility] [address] [facility] [place] [address] Lili Rodríguez MD [address] [facility] [place] [address] 07/31/2023 8:00 AM EDT Office Visit Urology, [facility] [address] [facility] [address] Andrea Antony MD [address] [facility] [address] [place] [address] 10/11/2023 10:00 AM EDT Nurse Only Ancillary Department, [place] [address] [place] [address] [place], Nurse Annual Wellness [address] [place] [address] Health Maintenance Due Date Last Done Comments Hepatitis B (1 of 3 - Risk 3-dose series) 1994 Diabetic Eye Exam 04/25/2022 04/25/2021, , 12/30/2018 COVID-19 Vaccine ( season) 2022 01/16/2022, 07/18/2021, 02/14/2021, Additional history exists HbA1c 03/23/2023 09/21/2022, 05/31, 12/12/2021, Additional history exists CKD HGB USE SMARTSET 10010 09/15/202309/14, 05/16/2022, 05/16/2022, Additional history exists Depression Screening 10/10/2023 10/09/2022 Diabetic Foot Exam 10/10/2023 10/09/2022, 0 08/30/2021, 10/31/2019, Additional history exists Albumin/Creatinine Ratio 12/16/2023 023, 03/22/2022, 03/30/2021, Additional history exists CKD PHOS USE SMARTSET 36066 12/16/202312/01, 12/12/2021, 12/02/2019, Additional history exists DTaP,Tdap,and [...] filedocumented as of this encounter Care Teams Cash Management Associate Relationship Specialty Start Date End Date Eldon Dowd MD [address] [place] [address] PCP - General Family Medicine 12/05/18 documented as of this encounter
--- OUTSIDE RECORDS SUMMARY | 2023-02-27 00:11 | External Medical Summary | Summary of Care ---
Author Name Unknown Organization [facility] Address [address] [facility] [place] [address] Phone [phone] Care Team Providers Care Slab Grinder Name Role Phone Eldon Dowd MD Primary Care Provider +1- [phone] Reason for Visit * Reason Comments Follow Up Bilateral knee Encounter Details Date Type Department Care Team (Latest Contact Info) Description 02/15/2023 10:00 AM EST Office Visit Orthopaedics [facility] [address] [place] [address] Jeison Arteaga DO [address] [place] [address] Primary osteoarthritis of both knees* Allergies Active Allergy Reactions Criticality Noted Date Comments Candesartan Cilexetil 01/04/2012 hyperkalemia Atenolol 08/21/2012 Pt was told not to take this again Other reaction(s): PT WAS TOLD NEVER TO TAKE AGAIN Candesartan High 06/13/2022 Other reaction(s): HYPERKALEMIA Lisinopril Other (Please comment) High 01/16/2014 Hypotension/ Increased creatinine Other reaction(s): INCREASED CREATININE/HYPOTENSION documented as of this encounter (statuses as of 02/15/2023) Medications Medication Sig Dispensed Refills Start Date [...] 24 Hour (Imdur)Indications: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,NSTEMI (non-ST elevated myocardial infarction) ([facility]) TAKE ONE TABLET BY MOUTH EVERY [...] MORNING 30 Tablet 5 01/22/2023 01/22/2024 Active Hospital, Clinic, or Other Facility Administered Medication Ordered Dose Route Frequency Start Date End Date Status lidocaine 1% 1 mL - triamcinolone acetonide 40 mg/mL 1 mL inj 2 mLIndications:Primary osteoarthritis of both knees 2 mL IJ ONCE 02/15/2023 02/15/2023 Ended lidocaine 1% 1 mL - triamcinolone acetonide 40 mg/mL 1 mL inj 2 mLIndications:Primary osteoarthritis of both knees 2 mL IJ ONCE 02/15/2023 02/15/2023 Ended documented as of this encounter (statuses as of 02/15/2023) Active Problems Problem Noted Date Diagnosed Date [...] as of this encounter (statuses as of 02/15/2023) Resolved Problems Problem Noted Date Diagnosed Date Resolved Date Hypertensive kidney disease with chronic kidney disease stage III 10/30/2018 02/12/2020 Overview: Per CKD protocol Chest discomfort 02/23/2015 09/01/2016 Viral URI with cough 03/25/2014 017 Accelerate Clinical Trial*[id number] 08/27/2012 08/27/2012 Accelerate Clinical Trial*[id number] 08/27/2012 03/29/2015 Overview: ACCELERATE STUDY. Project # [id number], BRAND MARKETING COORDINATOR: Basil Everett MD. CRC: GENE Whitney. SUMMARY: To test the hypothesis that Evacetrapib 130 mg, in comparison to placebo, reduces the risk of major adverse coronary events in high-risk vascular disease patients. CONTACTS: During normal business hours, contact study staff at ; after hours Child Psychiatrist via the [facility] hospital payloader machine operator [phone]. 24-hour Global Study Helpline: [phone]. Lipid levels should not be ordered/obtained while this subject is in the Accelerate study. Lipids are being managed in a blinded fashion. If lipid levels are inadvertently obtained, it is important that test results are NOT provided to the patient, study doctor, information technology coordinator, or other study team members. Restricted meds while in the study: 1) niacin > 250 mg, 2) gemfibrozil with a potent [id number]. Hyperglycemia 02/18/2012 01/10/2017 NSTEMI (non-ST elevated myoc ardial infarction) 02/13/2012 12/03/2018 Diastolic dysfunction 01/04/20122020 HTN, goal below 140/90 09/20/201110/18 History of hyperkalemia 06/30/201112/31 Kidney disease, chronic, sta ge III (GFR 30-59 ml/min) 05/18/2011 11/14/2018 Shortness of breath 04/21/2011 09/02/19 17 High triglycerides 04/21/2011 Other paraproteinemias 09/13/201009/01 Dyslipidemia, goal to be determined 03/11/2009 09/20/2011 Overview: Per Lipid Taxonomy. HTN, goal below 140/90 02/17/200909/19 Overview: Modified per HTN protocol #16. ADVANCE DIRECTIVE INFORMATION 02/17/2005 03/20/2019 Overview: No, Advance Directive brochure given to patient. GLOBAL TRANSIENT AMNESIA 02/13/2000 ABNORM ELECTROCARDIOGRAM 02/13/200001/2017 HYPERTENSION NOS 02/18/2009 Overview: Modified per HTN protocol #16. Mixed dyslipidemia Overview: Per Lipid Taxonomy. DIVERTICULOSIS OF COLON 12/31 documented as of this encounter (statuses as of 02/15/2023) Immunizations Name Administration Dates Next Due COVID-19 [...] on file documented as of this encounter Progress Notes * Jeison Arteaga, - 02/15/2023 9:59 AM EST ORTHOPAEDIC SURGERY - Clinic Note/Injection SUBJECTIVE: Teodoro Arceo is a 87 year old male. Chief Complaint Patient presents with Follow Up Bilateral knee HPI: He presents today for repeat corticosteroid injections for both knees. He is accompanied. Review of patient's allergies indicates: Allergen Reactions Candesartan Other reaction(s): HYPERKALEMIA Lisinopril Other (Please comment) Hypotension/ Increased creatinine Other reaction(s): INCREASED CREATININE/HYPOTENSION Atacand [Candesartan Cilexetil] hyperkalemia Atenolol Pt was told not to take this again Other reaction(s): PT WAS TOLD NEVER TO TAKE AGAIN Current Outpatient Medications Medication Sig Dispense Refill CENTRUM PO TABS as directed 0 0 ASPIRIN 81 MG PO CHEW One pill by mouth once a day with food 100 Tab 5 COENZYME Q10 400 MG PO CAPS 1 CAPSULE DAILY 30 Cap 5 Glucose Blood (ONETOUCH VERIO) STRP Use up to 1 times a day E11.9 100 Strip 3 albuterol HFA (PROVENTIL HFA) 108 (90 BASE) MCG/ACT inhaler Use 2 puffs every 4- 6hrs as needed for wheezing/shortness of breath 1 Inhaler 3 linaGLIPtin 5 MG Oral Tablet (Tradjenta) Take 1 Tablet by mouth in the morning. 90 Tablet 3 Carvedilol 12.5 MG Oral Tablet (Coreg) Take 1 Tablet by mouth in the morning and 1 Tablet before bedtime. 180 Tablet 3 Metamucil Fiber Oral Tablet Chewable Take by mouth. Terazosin HCl 2 MG Oral Capsule TAKE ONE CAPSULE BY MOUTH AT BEDTIME 90 Capsule 3 Isosorbide Mononitrate ER 60 MG Oral Tablet Extended Release 24 Hour (Imdur) TAKE ONE TABLET BY MOUTH EVERY MORNING. 90 Tablet 3 predniSONE 5 MG Oral Tablet (Deltasone) TAKE 1 TO 3 TABLETS BY MOUTH DAILY 100 Tablet 5 Atorvastatin Calcium 80 MG Oral Tablet (Lipitor) TAKE ONE TABLET BY MOUTH DAILY 90 Tablet 1 Losartan Potassium 50 MG Oral Tablet (Cozaar) Take 1 Tablet by mouth in the morning. 30 Tablet 5 Furosemide 40 MG Oral Tablet (Lasix) Take 1&1/2 Tablets by mouth in the morning. 135 Tablet 3 Sotalol HCl 80 MG Oral Tablet (Betapace) TAKE 1/2 TABLET BY MOUTH TWICE DAILY 90 Tablet 3 Empagliflozin 10 MG Oral Tablet (Jardiance) TAKE ONE TABLET BY MOUTH IN THE MORNING 30 Tablet 5 Current Facility-Administered Medications Medication Dose Route Frequency Provider Last Rate Last Admin lidocaine 1% 1 mL - triamcinolone acetonide 40 mg/mL 1 mL inj 2 mL 2 mL Injection Once Jeison Arteaga, DO lidocaine 1% 1 mL - triamcinolone acetonide 40 mg/mL 1 mL inj 2 mL 2 mL Injection Once Jeison Arteaga, ASSESSMENT: Primary osteoarthritis of both knees (Primary) - ARTHROCENT ASP &/OR INJ MAJOR JX/BURSA W/O US - lidocaine 1% 1 mL - triamcinolone acetonide 40 mg/mL 1 mL inj 2 mL - lidocaine 1% 1 mL - triamcinolone acetonide 40 mg/mL 1 mL inj 2 mL Follow Up: Return in about 4 months (around 06/16/2023). PLAN: We discussed repeat injections today. He was in agreement. These were well tolerated. Injection Procedure Note: BILATERAL Knee: Time out: Prior to injection, a time out was called to confirm the administration of appropriate medicine, patient name, procedure and confirm to the best of our ability and knowledge the presence of any necessary risks and benefits. Patient verbalizes understanding. Consent obtained. Sterile techinique applied. Skin sterilized with alcohol swab and ChloraPrep. Both knees were injected using 1.5 inch, 22 gauge needle. Injected with 1 mL 1% lidocaine and 1 mL Kenalog 40 mg/mL. Skincleansed with alcohol and Band-Aid placed. Patient tolerated procedure with no significant bleedingor adverse reaction. Patient instructed to call or return to clinic for fever or warmth and redness at injection site for potential infection. Patient also advised as to potential for steroid flare reaction including increased pain and redness at injection site which should be treated with ice and resolve within 24 hours. Jeison Arteaga DO This chart was completed in part utilizing iiMonde Speech Voice Recognition Software. Grammatical errors, random word insertions, pronoun errors, and incomplete sentences are an occasional consequence of this system due to software limitations, ambient noise, and hardware issues. Any formal questions or concerns about the content, text, or information contained within the body of this dictation should be directly addressed to the provider for clarification. Jeison Arteaga DO 02/15/2023 9:59 AM documented in this encounter Nursing Notes * Tika Nye MED ASSIST - 02/15/2023 9:35 AM EST Pt presents today for bilateral knee injections. Last injection was 11/16/22. States the last ones lasted until 2-3 weeks ago. documented in this encounter Plan of Treatment Upcoming Encounters Date Type Department Care Team (Late st Contact Info) Description 02/15/2023 11:30 AM EST Office Visit Orthopaedics [address] [place] [address] Aaron Boss MD [address] [place] [address] 03/22/2023 8:00 AM EST Office Visit [facility] [address] [place] [address] Eldon Dowd MD [address] [place] [address] 05/16/2023 11:00 AM EST Office Visit Hematology/Oncology [facility] [address] [place] [address] Patricia Conway MD [address] [facility] [address] [place] [address] 06/11/2023 8:00 AM EDT Office Visit Cardiology, [facility] [address] [place] [address] James Reyes PAJhoana [address] [place] [address] 06/21/2023 9:00 AM EDT Office Visit Orthopaedics [facility] [address] [place] [address] Jeison Arteaga, [address] [place] [address] 07/06/2023 10:00 AM EDT Office Visit Nephrology, [facility] [address] [place] [address] Lili Rodríguez MD [address] [place] [address] 07/31/2023 8:00 AM EDT Office Visit Urology, [facility] [address] [place] [address] Andrea Antony MD [address] [place] [address] [place] [address] 10/11/2023 10:00 AM EDT Nurse Only Ancillary Department, [place] [address] [facility] [address] [place], Nurse Annual Wellness [address] [facility] [place] [id number] Scheduled Orders Name Type Priority Associated Diagnoses Orde r Schedule ARTHROCENT ASP &/OR INJ MAJOR JX/BURSA W/O US Procedures Routine Primary osteoarthritis of both knees Ordered: 02/15/2023 Health Maintenance Due Date Last Done Comments Hepatitis B (1 of 3 - Risk 3-dose series) 1994 Diabetic Eye Exam 04/25/2022 04/25/2021, , 12/30/2018 COVID-19 Vaccine ( season) 2022 01/16/2022, 07/18/2021, 02/14/2021, Additional history exists HbA1c 03/23/2023 09/21/2022, 05/31, 12/12/2021, Additional history exists CKD HGB USE SMARTSET 45146 09/15/202309/14, 05/16/2022, 05/16/2022, Additional history exists Depression Screening 10/10/2023 10/09/2022 Diabetic Foot Exam 10/10/2023 10/09/2022, 0 08/30/2021, 10/31/2019, Additional history exists Albumin/Creatinine Ratio 12/16/202312/15/ 023, 03/22/2022, 03/30/2021, Additional history exists CKD PHOS USE SMARTSET 82854 12/16/202312/01, 12/12/2021, 12/02/2019, Additional history exists DTaP,Tdap,and [...] Not on filedocumented as of this encounter Visit Diagnoses Diagnosis Primary osteoarthritis of both knees- Primary Primary localized osteoarthrosis, lower leg documented in this encounter Administered Medications Inactive Administered Medications - up to 3 most recent administrations Medication Order MAR Action Action Date Dose Rate Site lidocaine 1% 1 mL - triamcinolone acetonide 40 mg/mL 1 mL inj 2 mL 2 mL, Injection, ONCE, On [facility] 02/15/23 at 1030, For 1 dose, Lidocaine 1% 1mL Triamcinolone Acetonide 40 mg/mL 1 mL (Final concentration = 20 mg/mL) REFRIGERATE and SHAKE WELL Given 02/15/2023 10:01 AM EST 2 mL Knee Right lidocaine 1% 1 mL - triamcinolone acetonide 40 mg/mL 1 mL inj 2 mL 2 mL, Injection, ONCE, On Kristen 02/15/23 at 1030, For 1 dose, Lidocaine 1% 1mL Triamcinolone Acetonide 40 mg/mL 1 mL (Final concentration = 20 mg/mL) REFRIGERATE and SHAKE WELL Given 02/15/2023 10:00 AM EST 2 mL Knee Left documented in this encounter Care Teams Slab Grinder Relationship Specialty Start Date End Date Eldon Dowd MD [address] [place] [address] PCP - General Family Medicine 12/05/18 documented as of this encounter
--- OUTSIDE RECORDS SUMMARY | 2023-02-27 00:11 | External Medical Summary | Summary of Care ---
Author Name Unknown Organization [facility] Address [address] [place] [address] Phone [phone] Care Team Providers Care Frame Opener Name Role Phone Eldon Dowd MD Primary Care Provider +1- [phone] Reason for Visit * Reason Onset Date Comments Fax 01/23/2023 [employer] [facility] [employer] Status Check 01/23/2023 Encounter Details Date Type Department Care Team (Late st Contact Info) Description 01/23/2023 Telephone [facility] [address] [place] [address] Eldon Dowd MD [address] [place] [address] Fax ([employer] [facility] Med Supplies); Status C... 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 [...] URI with cough 03/25/2014 017 Accelerate Clinical Trial*[id number] 08/27/2012 08/27/2012 Accelerate Clinical Trial*[id number] 08/27/2012 03/29/2015 Overview: ACCELERATE STUDY. Project # [id number], FUR DRY CLEANER HAND: Basil Everett MD. CRC: GENE Whitney. SUMMARY: To test the hypothesis that Evacetrapib 130 mg, in comparison to placebo, reduces the risk of major adverse coronary events in high-risk vascular disease patients. CONTACTS: During normal business hours, contact study staff at ; after hours Election Supervisor via the [facility] hospital tobacco primer machine operator [phone]. 24-hour Global Study Helpline: [phone]. Lipid levels should not be ordered/obtained while this subject is in the Accelerate study. Lipids are being managed in a blinded fashion. If lipid levels are inadvertently obtained, it is important that test results are NOT provided to the patient, study doctor, educational coordinator, or other study team members. Restricted meds while in the study: 1) niacin > 250 mg, 2) gemfibrozil with a potent [id number]. Hyperglycemia 02/18/2012 01/10/2017 NSTEMI (non-ST elevated myoc [...] money to buy more. Never true 10/10/19 Within the past 12 months, t he [...] encounter Miscellaneous Notes * Telephone Encounter - Eldon Dowd MD - 02/02/2023 5:11 PM EDT I have not seen the pt for 6 months and have not discussed a CGM with him. Looks like the form is to the attention of a Dr López. Not sure who that is. He is not on insulin and may not qualify. Butsince this is escalating to clinic leadership, I will fax back a form that I did not have anything to do with. Faxed 02/02/23 * Telephone Encounter - Ad Nicole OSA [...] received paperwork. 01/24/2023 * Telephone Encounter - eLyla Nicole OSA - 01/23/2023 11:24 AM EDT Received a call asking if fax was received by office. Name/Company sending fax: Faisal from [employer] What fax is pertaining to: Airu Keaton 2 Date(s) they sent request: 01/23/2023 Verified fax number they are sending to is correct (Y or N): Y Callback Number for the clinic to call to verified if fax was received: [phone] Did advise they wait 24 hrs as our fax can go on a 24 hr cycling period and an additional 48 to obtain and direct it where it needs to go documented in this encounter Plan of Treatment Upcoming Encounters Date Type Department Care Team (Late st Contact Info) Description 02/15/2023 10:00 AM EST Office Visit Orthopaedics [facility] [address] [place] [address] Jeison Arteaga DO [address] [place] [address] 02/15/2023 11:30 AM EST Office Visit Orthopaedics [facility] [address] [place] [address] Aaron Boss MD [address] [place] [phone] 03/22/2023 8:00 AM EST Office Visit Family [facility], [place] [address] [place] [facility] [place] [address] Eldon Dowd MD [address] [place] [address] 05/16/2023 11:00 AM EST Office Visit Hematology/Oncology [facility] [address] [facility] [address] Patricia Conway MD [address] [facility] [place] [address] 06/11/2023 8:00 AM EDT Office Visit Cardiology, [facility] [address] [facility] [place] [address] James Reyes PA-C [facility] [address] 07/06/2023 10:00 AM EDT Office Visit Nephrology, [facility] [address] [facility] [place] [address] Lili Rodríguez MD [address] [facility] [place] [address] 07/31/2023 8:00 AM EDT Office Visit Urology, [facility] [address] [facility] [place] [address] Andrea Antony MD [address] [address] [place] [address] 10/11/2023 10:00 AM EDT Nurse Only Ancillary Department, [place] [address] [facility], [place] [address] [place], Nurse Annual Wellness [address] [place] [address] Health Maintenance Due Date Last Done Comments Hepatitis B (1 of 3 - Risk 3-dose series) 1994 Diabetic Eye Exam 04/25/2022 04/25/2021, , 12/30/2018 COVID-19 Vaccine ( season) 2022 01/16/2022, 07/18/2021, 02/14/2021, Additional history exists HbA1c 03/23/2023 09/21/2022, 05/31, 12/12/2021, Additional history exists CKD HGB USE SMARTSET 51405 09/15/202309/14, 05/16/2022, 05/16/2022, Additional history exists Depression Screening 10/10/2023 10/09/2022 Diabetic Foot Exam 10/10/2023 10/09/2022, 0 08/30/2021, 10/31/2019, Additional history exists Albumin/Creatinine Ratio 12/16/2023 023, 03/22/2022, 03/30/2021, Additional history exists CKD PHOS USE SMARTSET 64903 12/16/202312/01, 12/12/2021, 12/02/2019, Additional history exists DTaP,Tdap,and [...] filedocumented as of this encounter Care Teams Frame Opener Relationship Specialty Start Date End Date Oesterling, Eldon R, MD [address] [facility] [place] [phone] PCP - General Family Medicine 12/05/18 documented as of this encounter
--- OUTSIDE RECORDS SUMMARY | 2023-02-27 00:11 | External Medical Summary | Summary of Care ---
Author Name Unknown Organization [facility] Address [address] [facility] [place] [address] Phone [phone] Care Team Providers Care Medical Radiation Therapist Name Role Phone Eldon Dowd MD Primary Care Provider +1- [phone] Reason for Visit * Reason Comments Follow Up Bilateral knee Encounter Details Date Type Department Care Team (Latest Contact Info) Description 02/15/2023 10:00 AM EST Office Visit Orthopaedics [facility] [address] [place] [address] Jeison Arteaga DO [address] [place] [address] Primary osteoarthritis of both knees* Allergies Active [...] 24 Hour (Imdur)Indications: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 Project # [id number], KILN LABOURER: Basil Everett MD. CRC: GENE Whitney. SUMMARY: To test the hypothesis that Evacetrapib 130 mg, in comparison to placebo, reduces the risk of major adverse coronary events in high-risk vascular disease patients. CONTACTS: During normal business hours, contact study staff at ; after hours On Site Property Manager via the [facility] hospital bonded strand operator [phone]. 24-hour Global Study Helpline: [phone]. Lipid levels should not be ordered/obtained while this subject is in the Accelerate study. Lipids are being managed in a blinded fashion. If lipid levels are inadvertently obtained, it is important that test results are NOT provided to the patient, study doctor, wellness coordinator, or other study team members. Restricted meds while in the study: 1) niacin > 250 mg, 2) gemfibrozil with a potent [id number]. Hyperglycemia 02/18/2012 01/10/2017 NSTEMI (non-ST elevated myoc [...] This chart was completed in part utilizing [employer] Speech Voice Recognition Software. Grammatical errors, random [...] 02/15/2023 11:30 AM EST Office Visit Orthopaedics [address] [place] [address] Aaron Boss MD [address] [place] [address] 03/22/2023 8:00 AM EST Office Visit [facility], [address] [address] Eldon Dowd MD [address] [place] [address] 05/16/2023 11:00 AM EST Office Visit Hematology/Oncology [facility] [address] [facility] [place] [address] Patricia Conway MD [address] [facility] [place] [address] 06/11/2023 8:00 AM EDT Office Visit Cardiology, [facility] [address] [facility] [place] [address] James Reyes PACrystalC [address] [place] [address] 07/06/2023 10:00 AM EDT Office Visit Nephrology, [facility] [address] [facility] [place] [address] Lili Rodríguez MD [address] [facility] [place] [address] 07/31/2023 8:00 AM EDT Office Visit Urology, [facility] [address] [place] [address] Andrea [facility] MD [facility] [address] [place] [address] 10/11/2023 10:00 AM EDT Nurse Only Ancillary Department, [address] [address] [place], Nurse Annual Wellness [address] [place] [address] Scheduled Orders Name Type Priority Associated Diagnoses [...] Additional history exists CKD HGB USE SMARTSET 71914 09/15/202309/14, 05/16/2022, 05/16/2022, Additional history exists Depression Screening 10/10/2023 10/09/2022 Diabetic Foot Exam 10/10/2023 10/09/2022, 0 08/30/2021, 10/31/2019, Additional history exists Albumin/Creatinine Ratio 12/16/202312/15/2 023, 03/22/2022, 03/30/2021, Additional history exists CKD PHOS USE SMARTSET 55211 12/16/202312/01, 12/12/2021, 12/02/2019, Additional history exists DTaP,Tdap,and Td Vaccines (2 - Td or Tdap) 05/24/2025 05/24/2015, 03/14/2006, 05/03/1993 Pneumococcal Vaccine: 65+ Years Completed 11/19/2014, 02/17/2005, 01/31/1998 Zoster Vaccines Completed 07/12/2021, 10/0 05/2018, 01/06/2011 Influenza Vaccine (FLU shot) Completed , [...] Left documented in this encounter Care Teams Medical Radiation Therapist Relationship Specialty Start Date End Date Eldon Dowd MD [address] [place] [address] PCP - General Family Medicine 12/05/18 documented as of this encounter
--- OUTSIDE RECORDS SUMMARY | 2023-02-27 00:11 | External Medical Summary | Summary of Care ---
Author Name Unknown Organization [facility] Address [address] [place] [address] Phone [phone] Care Team Providers Care Hydrology Technician Name Role Phone Eldon Dowd MD Primary Care Provider +1- [phone] Reason for Visit * Reason Onset Date Comments Advice 02/19/2023 Encounter Details Date Type Department Care Team (Late st Contact Info) Description 02/19/2023 Telephone [facility] [address] [place] [address] Eldon Dowd MD [address] [place] [address] Advice Allergies Active Allergy Reactions Criticality Noted Date Comments Candesartan Cilexetil 01/04/2012 hyperkalemia Atenolol 08/21/2012 Pt was told not to take this again Other reaction(s): PT WAS TOLD NEVER TO TAKE AGAIN Candesartan High 06/13/2022 Other reaction(s): HYPERKALEMIA Lisinopril Other (Please comment) High 01/16/2014 Hypotension/ Increased creatinine Other reaction(s): INCREASED CREATININE/HYPOTENSION documented as of this encounter (statuses as of 02/20/2023) Medications Medication Sig Dispensed Refills Start Date [...] 24 Hour (Imdur)Indications:C oronary artery disease involving quartz valley coronary artery of quartz valley heart without angina pectoris,NSTEMI (non-ST elevated myocardial [...] MORNING 30 Tablet 5 01/22/2023 01/22/2024 Active glipiZIDE ER 2.5 MG Oral Tablet Extended Release 24 Hour (glipiZIDE XL) Take 1 Tablet by mouth in the morning. 30 minutes before a meal.. 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 Project # [id number], TRAINING AND DEVELOPMENT SPECIALIST: Basil Everett MD. CRC: GENE Whitney. SUMMARY: To test the hypothesis that Evacetrapib 130 mg, in comparison to placebo, reduces the risk of major adverse coronary events in high-risk vascular disease patients. CONTACTS: During normal business hours, contact study staff at ; after hours Chemical Dependency Nurse via the [facility] ferry operator [phone]. 24-hour Global Study Helpline: [phone]. Lipid levels should not be ordered/obtained while this subject is in the Accelerate study. Lipids are being managed in a blinded fashion. If lipid levels are inadvertently obtained, it is important that test results are NOT provided to the patient, study doctor, qualitative field coordinator, or other study team members. Restricted meds while in the study: 1) niacin > 250 mg, 2) gemfibrozil with a potent [id number]. Hyperglycemia 02/18/2012 01/10/2017 NSTEMI (non-ST elevated myoc [...] as of this encounter (statuses as of 02/20/2023) Immunizations Name Administration Dates Next Due COVID-19 [...] encounter Miscellaneous Notes * Telephone Encounter - Bindu Burris MED ASSIST - 02/20/2023 9:53 AM EST Spoke with Nicol. Advised previous message. Verbalized understanding * Telephone Encounter - Eldon Dowd MD - 02/19/2023 6:24 PM EST I have not seen for 7 months and last hgba1c was decent at 7.5. Sounds like there has been a definite change. If they sugars have been noticeably worse since the ortho injections on 02/15, it is likely that the steroid injections are the cause. Should start to improve this week and into next. Hydrate well. Decrease oral prednisone as much as possible. He was previously on glipizide xl 2.5 mg daily. He can add this back in until sugars start to improve. It is anticipated that he will be able to come off it again in the future. Sent to [facility]. * Telephone Encounter - Sunita Reynolds LPN - 02/19/2023 10:17 AM EST Please advise * Telephone Encounter - Zaria Hyatt OSA - 02/19/2023 10:06 AM EST [facility] calling to advise provider regarding High Fasting Blood Sugar Reading. 225 02/19/23 402 02/18/23 304 02/17/23 482 02/16/23 documented in this encounter Plan of Treatment Upcoming Encounters Date Type Department Care Team (Late st Contact Info) Description 03/08/2023 8:45 AM EST Office Visit Orthopaedics [facility] [address] [place] [address] Aaron Boss MD [address] [place] [phone] 03/22/2023 8:00 AM EST Office Visit [facility] [address] [place] [phone] Eldon Dowd MD [address] [place] [address] 04/05/2023 9:30 AM EST Office Visit Interventional Pain Center, [facility] [address] [place] [address] Enio Shepherd DO [address] [place] [phone] 05/16/2023 11:00 AM EST Office Visit Hematology/Oncology [facility] [place] [address] [place] [address] Patricia Conway MD [address] [place] [address] 06/11/2023 8:00 AM EDT Office Visit Cardiology, [facility] [address] [place] [address] James Reyes PA-C [address] [place] [address] 06/21/2023 9:00 AM EDT Office Visit Orthopaedics [facility] 132 [facility] [place] [address] Jeison Arteaga, 132 [place] [address] 07/06/2023 10:00 AM EDT Office Visit Nephrology, [facility] 200 [facility] [place] [address] Lili Rodríguez MD [address] [facility] [place] [address] 07/31/2023 8:00 AM EDT Office Visit Urology, [facility] 132 [facility] [place] [address] Andrea Antony MD [address] [facility] [address] [place] [address] 10/11/2023 10:00 AM EDT Nurse Only Ancillary Department, [place] [address] [place] [address] [place], Nurse Annual [facility] [address] [place] [address] Health Maintenance Due Date Last Done Comments Hepatitis B (1 of 3 - Risk 3-dose series) 1994 Diabetic Eye Exam 04/25/2022 04/25/2021, , 12/30/2018 COVID-19 Vaccine ( season) 2022 01/16/2022, 07/18/2021, 02/14/2021, Additional history exists HbA1c 03/23/2023 09/21/2022, 05/31, 12/12/2021, Additional history exists CKD HGB USE SMARTSET 36681 09/15/202309/14, 05/16/2022, 05/16/2022, Additional history exists Depression Screening 10/10/2023 10/09/2022 Diabetic Foot Exam 10/10/2023 10/09/2022, 0 08/30/2021, 10/31/2019, Additional history exists Albumin/Creatinine Ratio 12/16/2023 023, 03/22/2022, 03/30/2021, Additional history exists CKD PHOS USE SMARTSET 21742 12/16/202312/01, 12/12/2021, 12/02/2019, Additional history exists DTaP,Tdap,and [...] filedocumented as of this encounter Care Teams Hydrology Technician Relationship Specialty Start Date End Date Eldon Dowd MD [address] [place] [address] PCP - General Family Medicine 12/05/18 documented as of this encounter
--- OUTSIDE RECORDS SUMMARY | 2023-02-27 00:11 | External Medical Summary | Summary of Care ---
Author Name Unknown Organization [facility] Address [address] [facility] [place] [address] Phone [phone] Care Team Providers Care Employee Development Director Name Role Phone Eldon Dowd MD Primary Care Provider +1- [phone] Reason for Visit * Reason Comments Joint Pain Left shoulder Encounter Details Date Type Department Care Team (Latest Contact Info) Description 02/15/2023 11:30 AM EST Office Visit Orthopaedics [facility] [address] [place] [address] Aaron Boss MD [address] [place] [phone] Synovial cyst of shoulder*; Arthritis of left acromioclavicular joint; Rotator cuff arthropathy of left shoulder Allergies Active Allergy Reactions Criticality Noted Date [...] 24 Hour (Imdur)Indications: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 [...] URI with cough 03/25/2014 017 Accelerate Clinical Trial*[id number] 08/27/2012 08/27/2012 Accelerate Clinical Trial*[id number] 08/27/2012 03/29/2015 Overview: ACCELERATE STUDY. Project # [id number], GOLF BALL MOLDER: Basil Everett MD. CRC: GENE Whitney. SUMMARY: To test the hypothesis that Evacetrapib 130 mg, in comparison to placebo, reduces the risk of major adverse coronary events in high-risk vascular disease patients. CONTACTS: During normal business hours, contact study staff at ; after hours Anesthesiology Tech via the [facility] stand up forklift operator [phone]. 24-hour Global Study Helpline: [phone]. Lipid levels should not be ordered/obtained while this subject is in the Accelerate study. Lipids are being managed in a blinded fashion. If lipid levels are inadvertently obtained, it is important that test results are NOT provided to the patient, study doctor, transaction coordinator, or other study team members. Restricted meds while in the study: 1) niacin > 250 mg, 2) gemfibrozil with a potent [id number]. Hyperglycemia 02/18/2012 01/10/2017 NSTEMI (non-ST elevated myoc [...] as of this encounter Progress Notes * Aaron Boss MD - 02/15/2023 10:53 AM EST ORTHOPAEDIC SURGERY - [facility] Note Teodoro Arceo is a 87 year old male. 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 We discussed continued nonoperative versus operative management with the patient today. Patient would like to avoid surgical management and risk of surgery if possible. At this time since the patient does not have any is significant pain he would like to continue withconservative management. We recommend continued observation. We will see him back in the office in2-3 weeks' time for re- evaluation. If at that time it does continue to expand or he develops increasing pain, we discussed possible repeat aspiration and possible capsular closure with the sclerotic agent. Follow Up: Return 2-3 weeks follow up, for Clinic Visit. | For: Clinic Visit There are no Patient Instructions on file for this visit. HPI: Teodoro Arceo presents today for follow up. Patient presents for follow up of his superior AC joint cyst. He is undergone multiple aspirations and cortisone injections to the cyst region. The cyst has returned. The patient states he does not have any significant pain. He rates his pain at2/3 at most. He states that pain is related to raising the arm. He denies any new injury. He deniesany fevers or chills. Parathesia negative: Calf pain negative: Fevers or chills negative. Ambulating with crutches negative Review of patient's allergies indicates: Allergen Reactions [...] MOUTH IN THE MORNING 30 Tablet 5 No current facility-administered medications for this visit. OBJECTIVE: Diagnostic studies: None Vital Signs: There were no vitals taken for this visit. Physical Exam: Evaluation of the left shoulder. There is evidence of a mass over the superior aspect of the shoulder. There is no evidence of skin breakdown. Patient is nontender palpation over the mass. There is no increased warmth. His range of motion of the shoulder is forward flexion to 90. Aaron Boss MD Orthopaedics [facility] 132 [facility] [address] Orthopedic Sports Medicine Surgery 02/15/2023 10:53 AM This chart was completed in part utilizing [employer] Voice Recognition Software. Grammatical errors, random word insertions, pronoun errors, and incomplete sentences are an occasional consequence of this system due to software limitations, ambient noise, and hardware issues. Any formal questions or concerns about the content, text, or information contained within the body of this dictation should be directly addressed to the provider for clarification. documented in this encounter Nursing Notes * Shilpa Huddleston LPN - 02/15/2023 10:26 AM EST 2 weeks follow up left shoulder and elbow bursitis . Shilpa MEDINA documented in this encounter Plan of Treatment Upcoming Encounters Date Type Department Care Team (Late st Contact Info) Description 03/08/2023 8:45 AM EST Office Visit Orthopaedics [facility] 132 [facility] [place] [address] Aaron Boss MD [address] [place] [address] [place] [phone] 03/22/2023 8:00 AM EST Office Visit [address] [place] [address] Eldon Dowd MD [address] [place] [address] 04/05/2023 9:30 AM EST Office Visit Interventional Pain Center, [facility] [address] [place] [address] Enio Shepherd, DO [address] [place] [phone] 05/16/2023 11:00 AM EST Office Visit Hematology/Oncology [facility] [address] [place] [address] Patricia Conway MD [address] [place] [address] 06/11/2023 8:00 AM EDT Office Visit Cardiology, [facility] [address] [place] [address] James Reyes PAJhoana [address] [place] [address] 06/21/2023 9:00 AM EDT Office Visit Orthopaedics [facility] [address] [place] [address] Jeison Arteaga, DO [address] [place] [address] 07/06/2023 10:00 AM EDT Office Visit Nephrology, [facility] [address] [place] [address] Lili Rodríguez MD [address] [place] [address] 07/31/2023 8:00 AM EDT Office Visit Urology, [facility] [address] [place] [address] Andrea Antony MD [address] [place] [address] [place] [address] 10/11/2023 10:00 AM EDT Nurse Only Ancillary Department, [place] [address] [facility] [address] [place], Nurse Annual Wellness [address] [place], [place] [phone] Health Maintenance Due Date Last Done Comments Hepatitis B (1 of 3 - Risk 3-dose series) 1994 Diabetic Eye Exam 04/25/2022 04/25/2021, , 12/30/2018 COVID-19 Vaccine ( season) 2022 01/16/2022, 07/18/2021, 02/14/2021, Additional history exists HbA1c 03/23/2023 09/21/2022, 05/31, 12/12/2021, Additional history exists CKD HGB USE SMARTSET 39011 09/15/202309/14, 05/16/2022, 05/16/2022, Additional history exists Depression Screening 10/10/2023 10/09/2022 Diabetic Foot Exam 10/10/2023 10/09/2022, 0 08/30/2021, 10/31/2019, Additional history exists Albumin/Creatinine Ratio 12/16/202312/15/ 023, 03/22/2022, 03/30/2021, Additional history exists CKD PHOS USE SMARTSET 37286 12/16/202312/01, 12/12/2021, 12/02/2019, Additional history exists DTaP,Tdap,and [...] as of this encounter Visit Diagnoses Diagnosis Synovial cyst of shoulder- Primary Arthritis of left acromioclavicular joint Rotator cuff arthropathy of left shoulder documented in this encounter Care Teams Employee Development Director Relationship Specialty Start Date End Date Eldon Dowd MD [address] [place] [address] PCP - General Family Medicine 12/05/18 documented as of this encounter"
--- OUTSIDE RECORDS SUMMARY | 2023-02-27 00:12 | External Medical Summary | Summary of Care ---
Author Name Unknown Organization [facility] Address [address] [place] [address] Phone [phone] Care Team Providers Care Voice Over Artist Name Role Phone Eldon Dowd MD Primary Care Provider +1- [phone] Reason for Visit * Reason Onset Date Comments Fax 01/23/2023 [facility] Supplies Status Check 01/23/2023 Encounter Details Date Type Department Care Team (Late st Contact Info) Description 01/23/2023 Telephone [facility] [address] [place] [address] Eldon Dowd MD [address] [place] [address] Fax ([employer] [facility] Med Supplies); Status C... 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 [...] URI with cough 03/25/2014 017 Accelerate Clinical Trial*[id number] 08/27/2012 08/27/2012 Accelerate Clinical Trial*[id number] 08/27/2012 03/29/2015 Overview: ACCELERATE STUDY. Project # [id number], JAVA DEVELOPMENT TEAM LEAD: Basil Everett MD. CRC: GENE Whitney. SUMMARY: To test the hypothesis that Evacetrapib 130 mg, in comparison to placebo, reduces the risk of major adverse coronary events in high-risk vascular disease patients. CONTACTS: During normal business hours, contact study staff at ; after hours Crop Grain Or Livestock Farm Manager via the [facility] digestion operator [phone]. 24-hour Global Study Helpline: [phone]. Lipid levels should not be ordered/obtained while this subject is in the Accelerate study. Lipids are being managed in a blinded fashion. If lipid levels are inadvertently obtained, it is important that test results are NOT provided to the patient, study doctor, pain coordinator, or other study team members. Restricted meds while in the study: 1) niacin > 250 mg, 2) gemfibrozil with a potent [id number]. Hyperglycemia 02/18/2012 01/10/2017 NSTEMI (non-ST elevated myoc [...] by office. Name/Company sending fax: Faisal from [employer] What fax is pertaining to: Demian Pugh 2 Date(s) they sent request: 01/23/2023 Verified fax number they are sending to is correct (Y or N): Y Callback Number for the clinic to call to verified if fax was received: [phone] Did advise they wait 24 hrs as our fax can go on a 24 hr cycling period and an additional 48 to obtain and directit where it needs to go documented in this encounter Plan of Treatment Upcoming Encounters Date Type Department Care Team (Late st Contact Info) Description 02/15/2023 10:00 AM EST Office Visit Orthopaedics [facility] [address] [place] [address] Jeison Arteaga DO [address] [place] [address] 02/15/2023 11:30 AM EST Office Visit Orthopaedics [facility] [address] [place] [address] Aaron Boss MD [address] [place] [address] 03/22/2023 8:00 AM EST Office Visit [facility] [address] [facility] [phone] Eldon Dowd MD [address] [place] [facility] [place] [address] 05/16/2023 11:00 AM EST Office Visit Hematology/Oncology [facility] [address] [place] [address] Patricia Conway MD 200 [place] [address] 06/11/2023 8:00 AM EDT Office Visit Cardiology, [facility] 132 [place] [address] James Reyes PA-C [address] [place] [address] 07/06/2023 10:00 AM EDT Office Visit Nephrology, [facility] 200 [facility] [place] [address] Lili Rodríguez MD [address] [facility] [place] [address] 07/31/2023 8:00 AM EDT Office Visit Urology, [facility] 132 [place] [address] Andrea Antony MD 27 [facility] [address] [place] [address] 10/11/2023 10:00 AM EDT Nurse Only Ancillary Department, [place] [address] [place] [address] [place], Nurse Annual Wellness [address] [place] [address] Health Maintenance Due Date Last Done Comments Hepatitis B (1 of 3 - Risk 3-dose series) 1994 Diabetic Eye Exam 04/25/2022 04/25/2021, , 12/30/2018 COVID-19 Vaccine ( season) 2022 01/16/2022, 07/18/2021, 02/14/2021, Additional history exists HbA1c 03/23/2023 09/21/2022, 05/31, 12/12/2021, Additional history exists CKD HGB USE SMARTSET 71751 09/15/202309/14, 05/16/2022, 05/16/2022, Additional history exists Depression Screening 10/10/2023 10/09/2022 Diabetic Foot Exam 10/10/2023 10/09/2022, 0 08/30/2021, 10/31/2019, Additional history exists Albumin/Creatinine Ratio 12/16/2023 023, 03/22/2022, 03/30/2021, Additional history exists CKD PHOS USE SMARTSET 40258 12/16/202312/01, 12/12/2021, 12/02/2019, Additional history exists DTaP,Tdap,and [...] filedocumented as of this encounter Care Teams Voice Over Artist Relationship Specialty Start Date End Date Eldon Dowd MD [address] [place] [address] PCP - General Family Medicine 12/05/18 documented as of this encounter
--- OUTSIDE RECORDS SUMMARY | 2023-02-27 00:12 | External Medical Summary | Summary of Care ---
Author Name Unknown Organization [facility] Address [address] [facility] [place] [address] Phone [phone] Care Team Providers Care Manager Steel Name Role Phone Eldon Dowd MD Primary Care Provider +1- [phone] Reason for Visit * Reason Comments Follow Up 2 week follow up lef t shoulder Encounter Details Date Type Department Care Team (Late st Contact Info) Description 01/24/2023 8:45 AM EDT Office Visit Orthopaedics [facility] [address] [place] [address] Aaron Boss MD [address] [place] [address] Synovial cyst of shoulder*; Rotator cuff arthropathy of left shoulder Allergies [...] as of this encounter (statuses as of 01/25/2023) Medications Medication Sig Dispensed Refills Start Date [...] 24 Hour (Imdur)Indications:C oronary artery disease involving [place] coronary artery of [place] heart without angina pectoris,NSTEMI (non-ST elevated myocardial infarction) ([facility]) TAKE ONE TABLET BY MOUTH EVERY [...] acetonide 40 mg/mL 1 mL inj 2 mLIndications:Synovial cyst of shoulder,Rotator cuff arthropathy of left shoulder 2 mL IJ ONCE 01/25/2023 01/25/2023 Active documented as of this encounter (statuses as of 01/25/2023) Active Problems Problem Noted Date Diagnosed Date [...] as of this encounter (statuses as of 01/25/2023) Resolved Problems Problem Noted Date Diagnosed Date Resolved Date 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 Project # [id number], PEDIATRIC IMMUNOLOGIST: Basil Evreett MD. CRC: GENE Whitney. SUMMARY: To test the hypothesis that Evacetrapib 130 mg, in comparison to placebo, reduces the risk of major adverse coronary events in high-risk vascular disease patients. CONTACTS: During normal business hours, contact study staff at ; after hours Chaser Apprentice via the [facility] hospital high pressure kettle operator [phone]. 24-hour Global Study Helpline: [phone]. Lipid levels should not be ordered/obtained while this subject is in the Accelerate study. Lipids are being managed in a blinded fashion. If lipid levels are inadvertently obtained, it is important that test results are NOT provided to the patient, study doctor, academic success coordinator, or other study team members. Restricted meds while in the study: 1) niacin > 250 mg, 2) gemfibrozil with a potent [id number]. Hyperglycemia 02/18/2012 01/10/2017 NSTEMI (non-ST elevated myoc [...] as of this encounter (statuses as of 01/25/2023) Immunizations Name Administration Dates Next Due COVID-19 [...] Progress Notes * Aaron Boss MD - 01/24/2023 8:56 AM EDT ORTHOPAEDIC SURGERY - Progress Clinic Note Teodoro Arceo is a 87 year old male. 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 We discussed the degenerative AC joint, rotator arthropathy and cyst with the patient and his son today. At this time we recommend that the patient continue with the compressive dressing to the left shoulder region. Hopefully gets some relief with the cortisone injection. Follow Up: Return in about 2 weeks (around 02/07/2023) for Clinic Visit. | For: Clinic Visit. We will discuss the option of capsular sclerosis with Dr. Ramirez. There are no Patient Instructions on file for this visit. Injection Procedure Note: LEFT Shoulder: Time out: Prior to injection, a time out was called to confirm the administration of appropriate medicine, patient name, procedure and confirm to the best of our ability and knowledge the presence of any necessary risks and benefits. Patient verbalizes understanding. Consent obtained. Sterile techinique applied. Skin sterilized with Hibiclens swab. 60 mL of viscous fluid was removedfrom the AC joint cyst. After the aspiration through a separate injection site The left shoulder ACjoint and subacromial space was injected using 1.5 inch, 25 gauge needle with 1 mL 0.5% ropivacaine, 1 mL 1% lidocaine and 1 mL Depo-Medrol 40 mg/mL. Skin cleansed with alcohol and Band-Aid placed. Patient tolerated procedure with no significant bleeding or adverse reaction. Patient instructed to call or return to clinic for fever or warmth and redness at injection site for potential infection. Patient also advised as to potential for steroid flare reaction including increased pain and redness at injection site which should be treated with ice and resolve within 24 hours. HPI: Teodoro Arceo presents today for follow up. Patient states that the shoulder cyst has returned. His son states that he received a proximally 2 weeks of relief but then over the course of the last week came back. He has been undergoing home health for wound care for the elbow bursitis and shoulder. He states that the elbow is much improved and has no draining at this time. He denies any new injury. Parathesia negative: Calf pain negative: Fevers or [...] Evaluation of the left shoulder. There is no evidence of skin breakdown. There was evidence of a large soft tissue mass which is nontender to palpation. There is no evidence of erythema. Patient doeshave some range of motion of the shoulder with crepitation. There is no pain with range of motion. Evaluation of the left elbow. The punctate wound over the olecranon region is well healed. There issome fluctuance to the elbow consistent with bursitis. No evidence of erythema. No evidence of painwith range of motion of the elbow. Aaron Boss MD Orthopaedics [address] [address] Orthopedic Sports Medicine Surgery 01/24/2023 8:56 AM This chart was completed in part utilizing [employer] Speech Voice Recognition Software. Grammatical errors, random [...] documented in this encounter Nursing Notes * Tyree Cook LPN - 01/24/2023 8:19 AM EDT 2 week follow up left shoulder bursa aspiration. "Mass" returned. States he applied ice. Tyree MEDINA documented in this encounter Miscellaneous Notes * Addendum Note - Aaron Boss MD - 01/25/2023 11:11 AM EDTAddended by: AARON BOSS on: 01/25/2023 11:11 AM Modules accepted: Orders * Addendum Note - Tyree Cook LPN - 01/24/2023 9:22 AM EDTAddended by: TYREE COOK on: 01/24/2023 09:22 AM Modules accepted: Orders documented in this encounter Plan of Treatment Upcoming Encounters Date Type Department Care Team (Late st Contact Info) Description 02/15/2023 10:00 AM EST Office Visit Orthopaedics [facility] [address] [place] [address] Jeison Arteaga, [address] [place] [address] 02/15/2023 11:30 AM EST Office Visit Orthopaedics [facility] [address] [place] [address] Aaron Boss MD [address] [place] [address] 03/22/2023 8:00 AM EST Office Visit Family [facility], [place] [address] [place] [address] Eldon Dowd MD [address] [place] [address] 05/16/2023 11:00 AM EST Office Visit Hematology/Oncology [facility] [address] [facility] [place] [address] Patricia Conway MD [address] [facility] [place] [address] 06/11/2023 8:00 AM EDT Office Visit Cardiology, [facility] 132 [facility] [place] [address] James Reyes PA-C [address] [place] [address] 07/06/2023 10:00 AM EDT Office Visit Nephrology, [facility] [address] [facility] [place] [address] Lili Rodríguez MD [address] [facility] [place] [address] 07/31/2023 8:00 AM EDT Office Visit Urology, [facility] [place] [address] Andrea Antony MD [address] [place] [address] [place] [address] 10/11/2023 10:00 AM EDT Nurse Only Ancillary Department, [place] [address] [place] [address] [place], Nurse Annual Wellness [address] [place] [address] Health Maintenance Due Date Last Done Comments Hepatitis B (1 of 3 - Risk 3-dose series) 1994 DIABETES-EYE EXAM 04/25/2022 04/25/2021, , 12/30/2018 COVID-19 Vaccine ( season) 2022 01/16/2022, 07/18/2021, 02/14/2021, Additional history exists HbA1c 03/23/2023 09/21/2022, 05/31, 12/12/2021, Additional history exists CKD HGB USE SMARTSET 80231 09/15/202309/14, 05/16/2022, 05/16/2022, Additional history exists Depression Screening 10/10/2023 10/09/2022 Diabetic Foot Exam 10/10/2023 10/09/2022, 0 08/30/2021, 10/31/2019, Additional history exists Albumin/Creatinine Ratio 12/16/202312/15/2 023, 03/22/2022, 03/30/2021, Additional history exists CKD PHOS USE SMARTSET 14263 12/16/202312/01, 12/12/2021, 12/02/2019, Additional history exists DTaP,Tdap,and [...] Diagnoses Diagnosis Synovial cyst of shoulder- Primary Rotator cuff arthropathy of left shoulder documented in this encounter Care Teams Manager Steel Relationship Specialty Start Date End Date Eldon Dowd MD [address] [place] [place] [address] PCP - General Family Medicine 12/05/18 documented as of this encounter
--- OUTSIDE RECORDS SUMMARY | 2023-02-27 00:12 | External Medical Summary | Summary of Care ---
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 Project # [id number], OPTOMETRIST PRESIDENT/PRACTICE OWNER: Basil Everett MD. CRC: GENE Whitney. SUMMARY: To test the hypothesis that Evacetrapib 130 mg, in comparison to placebo, reduces the risk of major adverse coronary events in high-risk vascular disease patients. CONTACTS: During normal business hours, contact study staff at ; after hours Brass Pickler via the [facility] hospital coin rolling machine operator [phone]. 24-hour Global Study Helpline: [phone]. Lipid levels should not be ordered/obtained while this subject is in the Accelerate study. Lipids are being managed in a blinded fashion. If lipid levels are inadvertently obtained, it is important that test results are NOT provided to the patient, study doctor, audience coordinator, or other study team members. Restricted meds while in the study: 1) niacin > 250 mg, 2) gemfibrozil with a potent [id number]. Hyperglycemia 02/18/2012 01/10/2017 NSTEMI (non-ST elevated myoc [...] of the elbow. Aaron Boss MD Orthopaedics [address] [address] Orthopedic Sports Medicine Surgery 01/24/2023 8:56 AM This chart was completed in part utilizing [employer] Speech Voice Recognition Software. Grammatical errors, random [...] 02/15/2023 10:00 AM EST Office Visit Orthopaedics [facility] [address] [place] [address] Jeison Arteaga, [address] [place] [address] 02/15/2023 11:30 AM EST Office Visit Orthopaedics [facility] [address] [place] [address] Aaron Boss MD [address] [place] [address] 03/22/2023 8:00 AM EST Office Visit Family [facility], [place] [address] [place] [address] Eldon Dowd MD [address] [place] [address] 05/16/2023 11:00 AM EST Office Visit Hematology[facility] 200 [facility] [place] [address] Patricia Conway MD [address] [facility] [place] [address] 06/11/2023 8:00 AM EDT Office Visit Cardiology, [facility] 132 [facility] [place] [address] James Reyes PA-C [address] [facility] [address] 07/06/2023 10:00 AM EDT Office Visit Nephrology, [facility] [address] [facility] [place] [address] Lili Rodríguez MD [address] [facility] [place] [address] 07/31/2023 8:00 AM EDT Office Visit Urology, [facility] [place] [address] Andrea Antony MD [address] [place] [address] [place] [address] 10/11/2023 10:00 AM EDT Nurse Only Ancillary Department, [place] [address] [place] [address] [place], Nurse Annual Wellness [address] [place] [address] Health Maintenance Due Date Last Done Comments Hepatitis B (1 of 3 - Risk 3-dose series) 1994 DIABETES-EYE EXAM 04/25/2022 04/25/2021, , 12/30/2018 COVID-19 Vaccine ( season) 2022 01/16/2022, 07/18/2021, 02/14/2021, Additional history exists HbA1c 03/23/2023 09/21/2022, 05/31, 12/12/2021, Additional history exists CKD HGB USE SMARTSET 73700 09/15/202309/14, 05/16/2022, 05/16/2022, Additional history exists Depression Screening 10/10/2023 10/09/2022 Diabetic Foot Exam 10/10/2023 10/09/2022, 0 08/30/2021, 10/31/2019, Additional history exists Albumin/Creatinine Ratio 12/16/202312/15/2 023, 03/22/2022, 03/30/2021, Additional history exists CKD PHOS USE SMARTSET 97966 12/16/202312/01, 12/12/2021, 12/02/2019, Additional history exists DTaP,Tdap,and [...] of left shoulder documented in this encounter Administered Medications Inactive Administered Medications - up to 3 most recent administrations Medication Order MAR Action Action Date Dose Rate Site lidocaine 1% 1 mL - triamcinolone acetonide 40 mg/mL 1 mL inj 2 mL 2 mL, Injection, ONCE, On Kristen 01/25/23 at 1145, For 1 dose, Lidocaine 1% 1mL Triamcinolone Acetonide 40 mg/mL 1 mL (Final concentration = 20 mg/mL) REFRIGERATE and SHAKE WELL Given 01/24/2023 11:28 AM EDT 2 mL Shoulder Left documented in this encounter Care Teams Elevator Tender Relationship Specialty Start Date End Date Eldon Dowd MD [address] [place] [address] PCP - General Family Medicine 12/05/18 documented as of this encounter
--- OUTSIDE RECORDS SUMMARY | 2023-02-27 00:12 | External Medical Summary | Summary of Care ---
Author Name Unknown Organization [facility] Address [address] [place] [address] Phone [phone] Care Team Providers Care Commercial Credit Specialist Name Role Phone Eldon Dowd MD Primary Care Provider +1- [phone] Reason for Visit * Reason Onset Date Comments Fax 01/23/2023 [employer] [facility] Me d Supplies Encounter Details Date Type Department Care Team (Late st Contact Info) Description 01/23/2023 Telephone [facility] [address] [place] [address] Eldon Dowd MD [address] [place] [address] Fax ([facility] Med Supplies) Allergies Active Allergy Reactions Criticality Noted Date Comments Candesartan Cilexetil 01/04/2012 hyperkalemia Atenolol 08/21/2012 Pt was told not to take this again Other reaction(s): PT WAS TOLD NEVER TO TAKE AGAIN Candesartan High 06/13/2022 Other reaction(s): HYPERKALEMIA Lisinopril Other (Please comment) High 01/16/2014 Hypotension/ Increased creatinine Other reaction(s): INCREASED CREATININE/HYPOTENSION documented as of this encounter (statuses as of 01/24/2023) Medications Medication Sig Dispensed Refills Start Date [...] hemoglobin A1c goal of less than 8.0% ([facility]) Take 1 Tablet by mouth in the morning. 90 Tablet 3 04/04/2022 Active Carvedilol 12.5 MG Oral Tablet (Coreg)Indications:C AD (coronary artery disease),Paroxysmal atrial fibrillation ([facility]) Take 1 Tablet by mouth in the [...] 24 Hour (Imdur)Indications:C oronary artery disease involving [place] coronary artery of [place] heart without angina pectoris,NSTEMI (non-ST elevated myocardial infarction) (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 Project # [id number], SOC ANALYST: Basil Everett MD. CRC: GENE Whitney. SUMMARY: To test the hypothesis that Evacetrapib 130 mg, in comparison to placebo, reduces the risk of major adverse coronary events in high-risk vascular disease patients. CONTACTS: During normal business hours, contact study staff at ; after hours Electric Range Assembler via the [facility] hospital powdered sugar pulverizer operator [phone]. 24-hour Global Study Helpline: [phone]. Lipid levels should not be ordered/obtained while this subject is in the Accelerate study. Lipids are being managed in a blinded fashion. If lipid levels are inadvertently obtained, it is important that test results are NOT provided to the patient, study doctor, activity coordinator, or other study team members. Restricted meds while in the study: 1) niacin > 250 mg, 2) gemfibrozil with a potent [id number]. Hyperglycemia 02/18/2012 01/10/2017 NSTEMI (non-ST elevated myoc [...] as of this encounter (statuses as of 01/24/2023) Immunizations Name Administration Dates Next Due COVID-19 [...] encounter Miscellaneous Notes * Telephone Encounter - URI Chery - 01/24/2023 1:17 PM EDT LMOM for Faisal letting him know that we received paperwork. 01/24/2023 * Telephone Encounter - URI Edwards - 01/23/2023 11:24 AM EDT Received a call asking if fax was received by office. Name/Company sending fax: Faisal from [employer] What fax is pertaining to: [employer] Date(s) they sent request: 01/23/2023 Verified fax number they are sending to is correct (Y or N): Y Callback Number for the clinic to call to verified if fax was received: [phone] Did advise they wait 24 hrs as our fax can go on a 24 hr cycling period and an additional 48 to obtain and direct it where it needs to go documented in this encounter Plan of Treatment Upcoming Encounters Date Type Department Care Team (Late st Contact Info) Description 02/15/2023 10:00 AM EST Office Visit Orthopaedics [facility] 132 [facility] [place] [address] Jeison Arteaga, [address] [place] [address] 02/15/2023 11:30 AM EST Office Visit Orthopaedics [facility] [address] [place] [place] [address] Aaron Boss MD [address] [place] [address] 03/22/2023 8:00 AM EST Office Visit [facility] [address] [place] [address] Eldon Dowd MD [address] [place] [address] 05/16/2023 11:00 AM EST Office Visit Hematology/Oncology [facility] [address] [place] [address] Patricia Conway MD 200 [facility] [place] [address] 06/11/2023 8:00 AM EDT Office Visit Cardiology, [facility] 132 [facility] [place] [address] James Reyes PA-C 132 [facility] [place] [address] 07/06/2023 10:00 AM EDT Office Visit Nephrology, [facility] [address] [place] [address] Lili Rodríguez MD 200 [facility] [place] [address] 07/31/2023 8:00 AM EDT Office Visit Urology, [facility] 132 [facility] [place] [address] Andrea Antony MD [address] [place] [address] [place] [address] 10/11/2023 10:00 AM EDT Nurse Only Ancillary Department, [place] [address] [facility] [place] [address] [place], Nurse Annual Wellness [address] [facility] [place] [id number] Health Maintenance Due Date Last Done Comments Hepatitis B (1 of 3 - Risk 3-dose series) 1994 DIABETES-EYE EXAM 04/25/2022 04/25/2021, , 12/30/2018 COVID-19 Vaccine (2022- season) 2022 01/16/2022, 07/18/2021, 02/14/2021, Additional history exists HbA1c 03/23/2023 09/21/2022, 05/31, 12/12/2021, Additional history exists CKD HGB USE SMARTSET 74859 09/15/202309/14, 05/16/2022, 05/16/2022, Additional history exists Depression Screening 10/10/2023 10/09/2022 Diabetic Foot Exam 10/10/2023 10/09/2022, 0 08/30/2021, 10/31/2019, Additional history exists Albumin/Creatinine Ratio 12/16/202312/15/2 023, 03/22/2022, 03/30/2021, Additional history exists CKD PHOS USE SMARTSET 38007 12/16/202312/01, 12/12/2021, 12/02/2019, Additional history exists DTaP,Tdap,and Td Vaccines (2 - Td or Tdap) 05/24/2025 05/24/2015, 03/14/2006, 05/03/1993 Pneumococcal Vaccine: 65+ Years Completed 11/19/2014, 02/17/2005, 01/31/1998 Zoster Vaccines Completed 07/12/2021, 10/05/2018, 01/06/2011 Influenza Vaccine (FLU shot) Completed , 01/04/2022, 12/28/2020, Additional history exists GARDASIL-HPV IMMUNIZATION SERIES Aged Out No longer eligible based on patient's age to complete this topic MENINGOCOCCAL (MENACTRA/MENVEO) Aged Out No longer eligible based on patient's age to complete this topic documented as of this encounter Medical Devices Not on filedocumented as of this encounter Care Teams Commercial Credit Specialist Relationship Specialty Start Date End Date Eldon Dowd MD [address] [place] [address] PCP - General Family Medicine 12/05/18 documented as of this encounter
--- OUTSIDE RECORDS SUMMARY | 2023-02-27 00:12 | External Medical Summary | Summary of Care ---
Author Name Unknown Organization [facility] Address [address] [facility] [place] [address] Phone [phone] Care Team Providers Care Toy Electric Train Repairer Name Role Phone Eldon Dowd MD Primary Care Provider +1- [phone] Reason for Visit * Reason Comments Follow Up 2 week follow up lef t shoulder Encounter Details Date Type Department Care Team (Late st Contact Info) Description 01/24/2023 8:45 AM EDT Office Visit Orthopaedics [facility] [address] [place] [address] Aaron Boss MD [address] [place] [...] 24 Hour (Imdur)Indications:C oronary artery disease involving [place] coronary artery of [place]vas[place]ai heart without angina pectoris,NSTEMI (non-ST elevated myocardial infarction) ([facility]) TAKE ONE TABLET BY MOUTH EVERY [...] URI with cough 03/25/2014 017 Accelerate Clinical Trial*[id number] 08/27/2012 08/27/2012 Accelerate Clinical Trial*[id number] 08/27/2012 03/29/2015 Overview: ACCELERATE STUDY. Project # [id number], FULL STACK NET DEVELOPER: Basil Everett MD. CRC: GENE Whitney. SUMMARY: To test the hypothesis that Evacetrapib 130 mg, in comparison to placebo, reduces the risk of major adverse coronary events in high-risk vascular disease patients. CONTACTS: During normal business hours, contact study staff at ; after hours Clinical Trial Assistant via the [facility] hospital fiber drier operator [phone]. 24-hour Global Study Helpline: [phone]. Lipid levels should not be ordered/obtained while this subject is in the Accelerate study. Lipids are being managed in a blinded fashion. If lipid levels are inadvertently obtained, it is important that test results are NOT provided to the patient, study doctor, payroll coordinator, or other study team members. Restricted meds while in the study: 1) niacin > 250 mg, 2) gemfibrozil with a potent [id number]. Hyperglycemia 02/18/2012 01/10/2017 NSTEMI (non-ST elevated myoc [...] of the elbow. Aaron Boss MD Orthopaedics [address] [address] Orthopedic Sports Medicine Surgery 01/24/2023 8:56 AM This chart was completed in part utilizing [employer] Speech Voice Recognition Software. Grammatical errors, random [...] in this encounter Nursing Notes * Shilpa Cook LPN - 01/24/2023 8:19 AM EDT 2 week follow up left shoulder bursa aspiration. "Mass" returned. States he applied ice. Shilpa MEDINA documented in this encounter Miscellaneous Notes * Addendum Note - Shilpa Cook LPN - 01/24/2023 9:22 AM EDTAddended by: SHILPA COOK on: 01/24/2023 09:22 AM Modules accepted: Orders documented in this encounter Plan of Treatment Upcoming Encounters Date Type Department Care Team (Late st Contact Info) Description 02/15/2023 10:00 AM EST Office Visit Orthopaedics [facility] [address] [place] [address] Jeison Arteaga DO [address] [place] [address] 02/15/2023 11:30 AM EST Office Visit Orthopaedics [facility] [address] [place] [address] Aaron Boss MD [address] [place] [address] 03/22/2023 8:00 AM EST Office Visit [facility] [address] [facility] [phone] Eldon Dowd MD [address] [facility] [address] 05/16/2023 11:00 AM EST Office Visit Hematology/Oncology [facility] [place] [address] Patricia Conway MD 200 [facility] [place] [address] 06/11/2023 8:00 AM EDT Office Visit Cardiology, [facility] [address] [place] [address] James Reyes PA-C 132 [place] [address] 07/06/2023 10:00 AM EDT Office Visit Nephrology, [facility] [address] [facility] [place] [address] Lili Rodríguez MD 200 [facility] [place] [address] 07/31/2023 8:00 AM EDT Office Visit Urology, [facility] 132 [place] [address] Andrea Antony MD 27 [facility] 270 [place] [address] 10/11/2023 10:00 AM EDT Nurse Only Ancillary Department, [address] [address] [place], Nurse Annual Wellness 8[address] [place] [address] Health Maintenance Due Date Last Done Comments Hepatitis B (1 of 3 - Risk 3-dose series) 1994 DIABETES-EYE EXAM 04/25/2022 04/25/2021, , 12/30/2018 COVID-19 Vaccine (2022- season) 2022 01/16/2022, 07/18/2021, 02/14/2021, Additional history exists HbA1c 03/23/2023 09/21/2022, 05/31, 12/12/2021, Additional history exists CKD HGB USE SMARTSET 92706 09/15/202309/14, 05/16/2022, 05/16/2022, Additional history exists Depression Screening 10/10/2023 10/09/2022 Diabetic Foot Exam 10/10/2023 10/09/2022, 0 08/30/2021, 10/31/2019, Additional history exists Albumin/Creatinine Ratio 12/16/2023 023, 03/22/2022, 03/30/2021, Additional history exists CKD PHOS USE SMARTSET 24814 12/16/202312/01, 12/12/2021, 12/02/2019, Additional history exists DTaP,Tdap,and [...] shoulder documented in this encounter Care Teams Toy Electric Train Repairer Relationship Specialty Start Date End Date Eldon Dowd MD [address] [place] [address] PCP - General Family Medicine 12/05/18 documented as of this encounter
--- OUTSIDE RECORDS SUMMARY | 2023-02-27 00:12 | External Medical Summary | Summary of Care ---
Author Name Unknown Organization [facility] Address [address] [place] [address] Phone [phone] Care Team Providers Care Provider Network Analyst Name Role Phone Eldon Dowd MD Primary Care Provider +1- [phone] Reason for Visit * Reason Onset Date Comments Fax 01/23/2023 [facility] Me d Supplies Status Check 01/23/2023 Encounter Details Date Type Department Care Team (Late st Contact Info) Description 01/23/2023 Telephone [facility] [address] [place] [address] Eldon Dowd MD [address] [place] [address] Fax ([employer] [facility] Med Supplies); Status C... Allergies Active Allergy Reactions Criticality Noted Date Comments Candesartan Cilexetil 01/04/2012 hyperkalemia Atenolol 08/21/2012 Pt was told not to take this again Other reaction(s): PT WAS TOLD NEVER TO TAKE AGAIN Candesartan High 06/13/2022 Other reaction(s): HYPERKALEMIA Lisinopril Other (Please comment) High 01/16/2014 Hypotension/ Increased creatinine Other reaction(s): INCREASED CREATININE/HYPOTENSION documented as of this encounter (statuses as of 02/01/2023) Medications Medication Sig Dispensed Refills Start Date [...] 24 Hour (Imdur)Indications:C oronary artery disease involving [place] coronary artery of [place] heart without angina pectoris,NSTEMI (non-ST elevated myocardial infarction) ([facility]ER[facility]) TAKE ONE TABLET BY MOUTH EVERY MORNING. [...] as of this encounter (statuses as of 02/01/2023) Active Problems Problem Noted Date Diagnosed Date [...] as of this encounter (statuses as of 02/01/2023) Resolved Problems Problem Noted Date Diagnosed Date Resolved Date Hypertensive kidney disease with chronic kidney disease stage III 10/30/2018 02/12/2020 Overview: Per CKD protocol Chest discomfort 02/23/2015 09/01/2016 Viral URI with cough 03/25/2014 017 Accelerate Clinical Trial*[id number] 08/27/2012 08/27/2012 Accelerate Clinical Trial*[id number] 08/27/2012 03/29/2015 Overview: ACCELERATE STUDY. Project # [id number], DIRECTOR SYSTEMS: Basil Everett MD. CRC: GENE Whitney. SUMMARY: To test the hypothesis that Evacetrapib 130 mg, in comparison to placebo, reduces the risk of major adverse coronary events in high-risk vascular disease patients. CONTACTS: During normal business hours, contact study staff at ; after hours Geological Manager via the [facility] hospital ride operator [phone]. 24-hour Global Study Helpline: [phone]. Lipid levels should not be ordered/obtained while this subject is in the Accelerate study. Lipids are being managed in a blinded fashion. If lipid levels are inadvertently obtained, it is important that test results are NOT provided to the patient, study doctor, mission coordinator, or other study team members. Restricted meds while in the study: 1) niacin > 250 mg, 2) gemfibrozil with a potent [id number]. Hyperglycemia 02/18/2012 01/10/2017 NSTEMI (non-ST elevated myoc [...] as of this encounter (statuses as of 02/01/2023) Immunizations Name Administration Dates Next Due COVID-19 [...] encounter Miscellaneous Notes * Telephone Encounter - Lorrie Rodrigues OSA - 01/29/2023 9:49 AM EDT Faisal calling back to check if fax has been sent yet. Told him not yet. URI Millard * Telephone Encounter - Cristina Cantor OSA - 01/24/2023 1:17 PM EDT LMOM for Faisal letting him know that we received paperwork. 01/24/2023 * Telephone Encounter - Leyal Nicole OSA - 01/23/2023 11:24 AM EDT Received a call asking if fax was received by office. Name/Company sending fax: Faisal from [employer] What fax is pertaining to: [email or web address] [place] 2 Date(s) they sent request: 01/23/2023 Verified fax number they are sending to is correct (Y or N): Y Callback Number for the clinic to call to verified if fax was received: [phone] Did advise they wait 24 hrs as our fax can go on a 24 hr cycling period and an additional 48 to obtain and direct it where it needs to go documented in this encounter Plan of Treatment Upcoming Encounters Date Type Department Care Team (Late st Contact Info) Description 02/15/2023 10:00 AM EST Office Visit Orthopaedics [facility] [address] [place] [address] Jeison Arteaga DO [address] [place] [address] 02/15/2023 11:30 AM EST Office Visit Orthopaedics [facility] [address] [place] [address] Aaron Boss MD [address] [place] [phone] 03/22/2023 8:00 AM EST Office Visit [facility] [address] [place] [phone] Eldon Dowd MD [address] [place] [address] 05/16/2023 11:00 AM EST Office Visit Hematology/Oncology [facility] 200 [facility] [place] [place] [address] Patricia Conway MD [address] [place] [address] 06/11/2023 8:00 AM EDT Office Visit Cardiology, [facility] [address] [place] [address] James Reyes PA-C [address] [place] [address] 07/06/2023 10:00 AM EDT Office Visit Nephrology, Kamla Galaviz 200 [facility] [place] [address] Lili Rodríguez MD 200 [facility] [place] [address] 07/31/2023 8:00 AM EDT Office Visit Urology, [facility] [address] [facility] [place] [address] Andrea Antony MD 27 [facility] [place] [address] [place] [address] 10/11/2023 10:00 AM EDT Nurse Only Ancillary Department, [place] [address] [place] [address] [place], Nurse Annual Wellness [address] [place] [address] Health Maintenance Due Date Last Done Comments Hepatitis B (1 of 3 - Risk 3-dose series) 1994 Diabetic Eye Exam 04/25/2022 04/25/2021, , 12/30/2018 COVID-19 Vaccine ( season) 2022 01/16/2022, 07/18/2021, 02/14/2021, Additional history exists HbA1c 03/23/2023 09/21/2022, 05/31, 12/12/2021, Additional history exists CKD HGB USE SMARTSET 68227 09/15/202309/14, 05/16/2022, 05/16/2022, Additional history exists Depression Screening 10/10/2023 10/09/2022 Diabetic Foot Exam 10/10/2023 10/09/2022, 0 08/30/2021, 10/31/2019, Additional history exists Albumin/Creatinine Ratio 12/16/2023 023, 03/22/2022, 03/30/2021, Additional history exists CKD PHOS USE SMARTSET 70391 12/16/202312/01, 12/12/2021, 12/02/2019, Additional history exists DTaP,Tdap,and Td Vaccines (2 - Td or Tdap) 05/24/2025 05/24/2015, 03/14/2006, 05/03/1993 Pneumococcal Vaccine: 65+ Years Completed 11/19/2014, 02/17/2005, 01/31/1998 Zoster Vaccines Completed 07/12/2021, 05/2018, 01/06/2011 Influenza Vaccine (FLU shot) Completed , 01/04/2022, 12/28/2020, Additional history exists GARDASIL-HPV IMMUNIZATION SERIES Aged Out No longer eligible based on patient's age to complete this topic MENINGOCOCCAL (MENACTRA/MENVEO) Aged Out No longer eligible based on patient's age to complete this topic documented as of this encounter Medical Devices Not on filedocumented as of this encounter Care Teams Provider Network Analyst Relationship Specialty Start Date End Date Eldon Dowd MD [address] [place] [address] PCP - General Family Medicine 12/05/18 documented as of this encounter
--- OUTSIDE RECORDS SUMMARY | 2023-02-27 00:12 | External Medical Summary | Summary of Care ---
Author Name Unknown Organization [facility] Address [address] [facility] [place] [address] Phone [phone] Care Team Providers Care Molder Labels Name Role Phone Eldon Dowd MD Primary Care Provider +1- [phone] Reason for Visit * Reason Comments Follow Up 2 week follow up lef t shoulder Encounter Details Date Type Department Care Team (Late st Contact Info) Description 01/24/2023 8:45 AM EDT Office Visit Orthopaedics [facility] [address] [place] [address] Aaron Boss MD [address] [place] [...] 24 Hour (Imdur)Indications:C oronary artery disease involving [place] coronary artery of [place] heart without angina pectoris,NSTEMI (non-ST elevated myocardial infarction) ([facility]) TAKE ONE TABLET BY MOUTH EVERY [...] URI with cough 03/25/2014 017 Accelerate Clinical Trial*[id number] 08/27/2012 08/27/2012 Accelerate Clinical Trial*[id number] 08/27/2012 03/29/2015 Overview: ACCELERATE STUDY. Project # [id number], LAND ACQUISITION MANAGER: Basil Everett MD. CRC: GENE Whitney. SUMMARY: To test the hypothesis that Evacetrapib 130 mg, in comparison to placebo, reduces the risk of major adverse coronary events in high-risk vascular disease patients. CONTACTS: During normal business hours, contact study staff at ; after hours Precision Structural Metal Fitter via the [facility] hospital food production machine operator [phone]. 24-hour Global Study Helpline: [phone]. Lipid levels should not be ordered/obtained while this subject is in the Accelerate study. Lipids are being managed in a blinded fashion. If lipid levels are inadvertently obtained, it is important that test results are NOT provided to the patient, study doctor, fundraising coordinator, or other study team members. Restricted meds while in the study: 1) niacin > 250 mg, 2) gemfibrozil with a potent [id number]. Hyperglycemia 02/18/2012 01/10/2017 NSTEMI (non-ST elevated myoc [...] of the elbow. Aaron Boss MD Orthopaedics [address] [address] Orthopedic Sports Medicine Surgery 01/24/2023 8:56 AM This chart was completed in part utilizing [employer] Speech Voice Recognition Software. Grammatical errors, random [...] 02/15/2023 10:00 AM EST Office Visit Orthopaedics [facility] [address] [place] [address] Jeison Arteaga DO [address] [place] [address] 02/15/2023 11:30 AM EST Office Visit Orthopaedics [facility] [address] [place] [address] Aaron Boss MD [address] [place] [address] 03/22/2023 8:00 AM EST Office [facility] [address] [facility] [phone] Eldon Dowd MD [address] [facility] [address] 05/16/2023 11:00 AM EST Office Visit Hematology/Oncology [facility] [place] [address] Patricia Conway MD 200 [facility] [place] [address] 06/11/2023 8:00 AM EDT Office Visit Cardiology, [facility] [address] [place] [address] James Reyes PA-C [address] [place] [address] 07/06/2023 10:00 AM EDT Office Visit Nephrology, [facility] 200 [facility] [place] [address] Lili Rodríguez MD 200 [facility] [place] [address] 07/31/2023 8:00 AM EDT Office Visit Urology, [facility] [address] [place] [address] Andrea Antony MD 27 [facility] 270 [place] [address] 10/11/2023 10:00 AM EDT Nurse Only Ancillary Department, [address] [address] [place], Nurse Annual Wellness [address] [place] [address] Health Maintenance Due Date Last Done Comments Hepatitis B (1 of 3 - Risk 3-dose series) 1994 DIABETES-EYE EXAM 04/25/2022 04/25/2021, , 12/30/2018 COVID-19 Vaccine (2022- season) 2022 01/16/2022, 07/18/2021, 02/14/2021, Additional history exists HbA1c 03/23/2023 09/21/2022, 05/31, 12/12/2021, Additional history exists CKD HGB USE SMARTSET 67707 09/15/202309/14, 05/16/2022, 05/16/2022, Additional history exists Depression Screening 10/10/2023 10/09/2022 Diabetic Foot Exam 10/10/2023 10/09/2022, 0 08/30/2021, 10/31/2019, Additional history exists Albumin/Creatinine Ratio 12/16/2023 023, 03/22/2022, 03/30/2021, Additional history exists CKD PHOS USE SMARTSET 95677 12/16/202312/01, 12/12/2021, 12/02/2019, Additional history exists DTaP,Tdap,and [...] shoulder documented in this encounter Care Teams Molder Labels Relationship Specialty Start Date End Date Eldon Dowd MD [address] [place] [address] PCP - General Family Medicine 12/05/18 documented as of this encounter
--- OUTSIDE RECORDS SUMMARY | 2023-02-27 00:12 | External Medical Summary | Summary of Care ---
Author Name Unknown Organization [facility] Address [address] [place] [address] Phone [phone] Care Team Providers Care Supervisor Boilermaking Shop Name Role Phone Eldon Dowd MD Primary Care Provider +1- [phone] Reason for Visit * Reason Onset Date Comments Fax 01/23/2023 [facility] Me d Supplies Status Check 01/23/2023 Encounter Details Date Type Department Care Team (Late st Contact Info) Description 01/23/2023 Telephone [facility] [address] [place] [address] Eldon Dowd MD [address] [place] [address] Fax ([employer] [facility] Med Supplies); Status C... 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 [...] URI with cough 03/25/2014 017 Accelerate Clinical Trial*[id number] 08/27/2012 08/27/2012 Accelerate Clinical Trial*[id number] 08/27/2012 03/29/2015 Overview: ACCELERATE STUDY. Project # [id number], BIRTHING NURSE: Basil Everett MD. CRC: GENE Whitney. SUMMARY: To test the hypothesis that Evacetrapib 130 mg, in comparison to placebo, reduces the risk of major adverse coronary events in high-risk vascular disease patients. CONTACTS: During normal business hours, contact study staff at ; after hours Route Sales Specialist via the [facility] hospital tc operator [phone]. 24-hour Global Study Helpline: [phone]. Lipid levels should not be ordered/obtained while this subject is in the Accelerate study. Lipids are being managed in a blinded fashion. If lipid levels are inadvertently obtained, it is important that test results are NOT provided to the patient, study doctor, offensive coordinator, or other study team members. Restricted meds while in the study: 1) niacin > 250 mg, 2) gemfibrozil with a potent [id number]. Hyperglycemia 02/18/2012 01/10/2017 NSTEMI (non-ST elevated myoc [...] by office. Name/Company sending fax: Faisal from [employer] What fax is pertaining to: [employer] Date(s) they sent request: 01/23/2023 Verified fax number they are sending to is correct (Y or N): Y Callback Number for the clinic to call to verified if fax was received: [phone] Did advise they wait 24 hrs as our fax can go on a 24 hr cycling period and an additional 48 to obtain and directit where it needs to go documented in this encounter Plan of Treatment Upcoming Encounters Date Type Department Care Team (Late st Contact Info) Description 02/15/2023 10:00 AM EST Office Visit Orthopaedics [facility] [address] [place] [address] Jeison Arteaga DO [address] [place] [address] 02/15/2023 11:30 AM EST Office Visit Orthopaedics [facility] [address] [place] [address] Aaron Boss MD [address] [place] [address] 03/22/2023 8:00 AM EST Office Visit [facility] [address] [facility] [phone] Eldon Dowd MD [address] [place] [address] 05/16/2023 11:00 AM EST Office Visit Hematology/Oncology [facility] [address] [place] [address] Patricia Conway MD 200 [facility] [place] [address] 06/11/2023 8:00 AM EDT Office Visit Cardiology, [facility] [address] [place] [address] James Reyes PA-C 132 [place] [address] 07/06/2023 10:00 AM EDT Office Visit Nephrology, [facility] 200 [facility] [place] [address] Lili Rodríguez MD 200 [facility] [place] [address] 07/31/2023 8:00 AM EDT Office Visit Urology, [facility] 132 [place] [address] Andrea Antony MD 27 [facility] [address] [place] [address] 10/11/2023 10:00 AM EDT Nurse Only Ancillary Department, [place] [address] [place] [address] [place], Nurse Annual Wellness [address] [place] [address] Health Maintenance Due Date Last Done Comments Hepatitis B (1 of 3 - Risk 3-dose series) 1994 Diabetic Eye Exam 04/25/2022 04/25/2021, , 12/30/2018 COVID-19 Vaccine ( season) 2022 01/16/2022, 07/18/2021, 02/14/2021, Additional history exists HbA1c 03/23/2023 09/21/2022, 05/31, 12/12/2021, Additional history exists CKD HGB USE SMARTSET 60276 09/15/202309/14, 05/16/2022, 05/16/2022, Additional history exists Depression Screening 10/10/2023 10/09/2022 Diabetic Foot Exam 10/10/2023 10/09/2022, 0 08/30/2021, 10/31/2019, Additional history exists Albumin/Creatinine Ratio 12/16/2023 023, 03/22/2022, 03/30/2021, Additional history exists CKD PHOS USE SMARTSET 03575 12/16/202312/01, 12/12/2021, 12/02/2019, Additional history exists DTaP,Tdap,and [...] filedocumented as of this encounter Care Teams Supervisor Boilermaking Shop Relationship Specialty Start Date End Date Eldon Dowd MD [address] [place] [address] PCP - General Family Medicine 12/05/18 documented as of this encounter
--- OUTSIDE RECORDS SUMMARY | 2023-02-27 00:12 | External Medical Summary | Summary of Care ---
Author Name Unknown Organization [facility] Address [address] [place] [address] Phone [phone] Care Team Providers Care Credit Adjuster Name Role Phone Eldon Dowd MD Primary Care Provider [phone]- [phone] Reason for Visit * Reason Onset Date Comments Fax 01/23/2023 [facility] Me d Supplies Encounter Details Date Type Department Care Team (Late st Contact Info) Description 01/23/2023 Telephone [facility] [address] [place] [address] Eldon Dowd MD [address] [place] [address] Fax ([facility] Med Supplies) Allergies Active Allergy Reactions Criticality Noted Date Comments Candesartan Cilexetil 01/04/2012 hyperkalemia Atenolol 08/21/2012 Pt was told not to take this again Other reaction(s): PT WAS TOLD NEVER TO TAKE AGAIN Candesartan High 06/13/2022 Other reaction(s): HYPERKALEMIA Lisinopril Other (Please comment) High 01/16/2014 Hypotension/ Increased creatinine Other reaction(s): INCREASED CREATININE/HYPOTENSION documented as of this encounter (statuses as of 01/29/2023) Medications Medication Sig Dispensed Refills Start Date [...] hemoglobin A1c goal of less than 8.0% ([facility]) Take 1 Tablet by mouth in the morning. 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 Project # [id number], COBBLER SOLE: Basil Everett MD. CRC: GENE Whitney. SUMMARY: To test the hypothesis that Evacetrapib 130 mg, in comparison to placebo, reduces the risk of major adverse coronary events in high-risk vascular disease patients. CONTACTS: During normal business hours, contact study staff at ; after hours Driver Sales via the [facility] tapering machine operator [phone]. 24-hour Global Study Helpline: [phone]. Lipid levels should not be ordered/obtained while this subject is in the Accelerate study. Lipids are being managed in a blinded fashion. If lipid levels are inadvertently obtained, it is important that test results are NOT provided to the patient, study doctor, pilates coordinator, or other study team members. Restricted meds while in the study: 1) niacin > 250 mg, 2) gemfibrozil with a potent [id number]. Hyperglycemia 02/18/2012 01/10/2017 NSTEMI (non-ST elevated myoc [...] as of this encounter (statuses as of 01/29/2023) Immunizations Name Administration Dates Next Due COVID-19 [...] by office. Name/Company sending fax: Faisal from [employer] What fax is pertaining to: Demian Pugh 2 Date(s) they sent request: 01/23/2023 Verified fax number they are sending to is correct (Y or N): Y Callback Number for the clinic to call to verified if fax was received: [phone] Did advise they wait 24 hrs as our fax can go on a 24 hr cycling period and an additional 48 to obtain and direct it where it needs to go documented in this encounter Plan of Treatment Upcoming Encounters Date Type Department Care Team (Late st Contact Info) Description 02/15/2023 10:00 AM EST [facility] [address] [place] [address] Jeison Arteaga DO [address] [place] [address] 02/15/2023 11:30 AM EST [facility] [address] [place] [address] Aaron Boss MD [address] [place] [phone] 03/22/2023 8:00 AM EST Office Visit [facility] [address] [place] [phone] Eldon Dowd MD [address] [place] [address] 05/16/2023 11:00 AM EST Office Visit Hematology/Oncology [facility] [address] [place] [address] Patricia Conway MD [address] [place] [address] 06/11/2023 8:00 AM EDT Office Visit Cardiology, [facility] [address] [place] [address] James Reyes PA-C [address] [place] [address] 07/06/2023 10:00 AM EDT Office Visit Nephrology, [facility] [place] [address] [place] [address] Lili Rodríguez MD [address] [place] [address] 07/31/2023 8:00 AM EDT Office Visit Urology, [facility] [address] [facility] [place] [address] Andrea Antony MD [address] [place] [address] [place] [address] 10/11/2023 10:00 AM EDT Nurse Only Ancillary Department, [place] [address] [place] [address] [place], Nurse [facility] [address], [place] [phone] Health Maintenance Due Date Last Done Comments Hepatitis B (1 of 3 - Risk 3-dose series) 1994 DIABETES-EYE EXAM 04/25/2022 04/25/2021, , 12/30/2018 COVID-19 Vaccine ( season) 2022 01/16/2022, 07/18/2021, 02/14/2021, Additional history exists HbA1c 03/23/2023 09/21/2022, 0308/2022, 12/12/2021, Additional history exists CKD HGB USE SMARTSET 84660 09/15/202309/14, 05/16/2022, 05/16/2022, Additional history exists Depression Screening 10/10/2023 10/09/2022 Diabetic Foot Exam 10/10/2023 10/09/2022, 0 08/30/2021, 10/31/2019, Additional history exists Albumin/Creatinine Ratio 12/16/20232 023, 03/22/2022, 03/30/2021, Additional history exists CKD PHOS USE SMARTSET 49774 12/16/202312/01, 12/12/2021, 12/02/2019, Additional history exists DTaP,Tdap,and [...] filedocumented as of this encounter Care Teams Credit Adjuster Relationship Specialty Start Date End Date Eldon Dowd MD [address] [place] [address] PCP - General Family Medicine 12/05/18 documented as of this encounter
--- OUTSIDE RECORDS SUMMARY | 2023-02-27 00:13 | External Medical Summary | Summary of Care ---
Author Name Unknown Organization [facility] Address [address] [facility] [place] [address] Phone [phone] Care Team Providers Care Reports Analysis Manager Name Role Phone Eldon Dowd MD Primary Care Provider +1- [phone] Reason for Visit * Reason Comments Follow Up 9 month follow up. B P a little high this morning- 200/90's. Edema in LE a little better but still ongoing. Denies chest pain, palpitations, SOB and dizziness. Encounter Details Date Type Department Care Team (Late st Contact Info) Description 01/19/2023 10:30 AM EDT Office Visit Cardiology, [facility] [address] [place] [address] James Reyes PA-C [address] [place] [address] Hypervolemia, unspecified hypervolemia type*; Coronary artery disease involving three affiliated coronary artery of three affiliated heart without angina pectoris; Chronic diastolic congestive heart failure (HCC); Coronary artery disease of three affiliated artery of three affiliated heart with stable angina pectoris (HCC); Paroxysmal atrial fibrillation (HCC); Dyslipidemia, goal LDL below 70; Hypertensive kidney disease with stage 3a chronic kidney disease (HCC); HTN, goal below 140/90 Allergies Active Allergy Reactions Criticality Noted Date Comments Candesartan Cilexetil 01/04/2012 hyperkalemia Atenolol 08/21/2012 Pt was told not to take this again Other reaction(s): PT WAS TOLD NEVER TO TAKE AGAIN Candesartan High 06/13/2022 Other reaction(s): HYPERKALEMIA Lisinopril Other (Please comment) High 01/16/2014 Hypotension/ Increased creatinine Other reaction(s): INCREASED CREATININE/HYPOTENSION documented as of this encounter (statuses as of 01/22/2023) Medications Medication Sig Dispensed Refills Start Date [...] 24 Hour (Imdur)Indications :Coronary artery disease involving three affiliated coronary artery of three affiliated heart without angina pectoris,NSTEMI (non-ST elevated myocardial infarction) (HCC) TAKE ONE TABLET BY MOUTH EVERY MORNING. [...] as of this encounter (statuses as of 01/22/2023) Active Problems Problem Noted Date Diagnosed Date [...] as of this encounter (statuses as of 01/22/2023) Resolved Problems Problem Noted Date Diagnosed Date Resolved Date Hypertensive kidney disease with chronic kidney disease stage III 10/30/2018 02/12/2020 Overview: Per CKD protocol Chest discomfort 02/23/2015 09/01/2016 Viral URI with cough 03/25/2014 017 Accelerate Clinical Trial*[id number] 08/27/2012 08/27/2012 Accelerate Clinical Trial*[id number] 08/27/2012 03/29/2015 Overview: ACCELERATE STUDY. Project # [id number], CONSERVATION PLANNER: Basil Everett MD. CRC: GENE Whitney. SUMMARY: To test the hypothesis that Evacetrapib 130 mg, in comparison to placebo, reduces the risk of major adverse coronary events in high-risk vascular disease patients. CONTACTS: During normal business hours, contact study staff at ; after hours Care Navigator via the [facility] hospital sulfuric acid plant operator [phone]. 24-hour Global Study Helpline: [phone]. Lipid levels should not be ordered/obtained while this subject is in the Accelerate study. Lipids are being managed in a blinded fashion. If lipid levels are inadvertently obtained, it is important that test results are NOT provided to the patient, study doctor, study abroad advisor, or other study team members. Restricted meds while in the study: 1) niacin > 250 mg, 2) gemfibrozil with a potent [id number]. Hyperglycemia 02/18/2012 01/10/2017 NSTEMI (non-ST elevated myoc [...] as of this encounter (statuses as of 01/22/2023) Immunizations Name Administration Dates Next Due COVID-19 [...] on file documented as of this encounter Last Filed Vital Signs Vital Sign Reading Time Taken Comments Blood Pressure 154/84 01/19/2023 10:21 AM EDT Pulse 64 01/19/2023 10:21 AM EDT Temperature - - Respiratory Rate 16 01/19/2023 10:21 AM EDT Oxygen Saturation - - Inhaled Oxygen Concentration - - Weight 65.8 kg (145 lb) 01/19/2023 10:21 AM EDT Height - - Body Mass Index 22.05 09/15/2022 10:11 AM EDT documented in this encounter Progress Notes * James Reyes PA-C - 01/19/2023 10:40 AM EDT SUBJECTIVE: Teodoro Arceo is a 87 year old male followed by Dr. Haines with last visit to this office in April 2022. Last evaluation with the undersigned was in 2014. Patient hospitalized at [facility] in July 2022 with GI bleeding and symptomatic anemia requiring transfusion of 3 units PRBCs. Hemoglobin down to 6.3 g/dL. He did not undergo endoscopic evaluation at that time and is at increased risk for recurrent bleeding. Also with a large hiatal hernia, chronic prednisone therapy, MGUS. Rhythm controlled with sotalol. Eliquis anticoagulation discontinued. July 04, 2022 TTE Interpretation Summary ([facility], Dr. Higginbotham): Moderate concentric LVH. No regionalWMA's. Normal LV systolic function. EF 60-65%. Normal RV size and function. Mild mitral regurgitation. EKG on July 06, 2022: Sinus at 75 with PAC's, first degree AV block. Lateral T wave abnormality. QTc 471 ms. Elevated blood pressures Right greater than left lower extremity peripheral edema Ambulatory dysfunction, knees are shot and equilibrium is bad Nocturia x4. No chest pain No palpitations Breathing OK. No syncope. 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 Hypertensive kidney disease with stage 3a chronic kidney disease I12.9, N18.31 Chronic kidney disease, stage 3a (HCC) N18.31 Type 2 diabetes mellitus with stage 3 chronic kidney disease (HCC) E11.22, N18.30 Chronic venous insufficiency of lower extremity I87.2 Protein-calorie malnutrition (HCC) E46 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 Rosacea Past Surgical History: Procedure Laterality Date COLONOSCOPY 05/08 repeat 2016 REVISION OF ULNAR NERVE AT ELBOW 05/08 [place]// left arm and right arm SACROILIAC JOINT INJECT W/GUIDANCE 12/04/2019 INJECTION SACROILIAC JOINT performed by Allan Persaud, DO at OR [facility] SACROILIAC JOINT INJECT W/GUIDANCE 05/31/2020 INJECTION SACROILIAC JOINT performed by Allan Persaud, DO at OR [facility] SACROILIAC JOINT INJECT W/GUIDANCE 09/30/2020 INJECTION SACROILIAC JOINT performed by Allan Persaud, DO at [facility] SACROILIAC JOINT INJECT W/GUIDANCE 12/27/2020 INJECTION SACROILIAC JOINT performed by Allan Persaud, DO at OR [facility] SACROILIAC JOINT INJECT W/GUIDANCE 05/02/2021 INJECTION SACROILIAC JOINT performed by Allan Persaud, DO at [facility] SACROILIAC JOINT INJECT W/GUIDANCE 10/19/2021 INJECTION SACROILIAC JOINT performed by Allan Persaud, DO at [facility] SACROILIAC JOINT INJECT W/GUIDANCE 06/28/2022 INJECTION SACROILIAC JOINT performed by Allan Persaud, DO at [facility] SACROILIAC JOINT INJECT W/GUIDANCE 10/04/2022 INJECTION SACROILIAC JOINT performed by Allan Persaud, DO at [facility] SIGMOIDOSCOPY, DIAGNOSTIC 09/02/98 diverticulosis Family History Problem Relation Age of Onset Other (pneumonia) Father of pneumonia @ 81 Stroke Mother CVA/ [place] @ 63 Heart Disorder Sister CABG Heart Disorder Sister rheumatic heart disease Heart Disorder Brother Neurological Disorder Sister CVA Social History Social History Narrative Not on file Complete Review of Systems is as stated above, negative, or noncontributory. Review of patient's allergies indicates: Allergen Reactions [...] times a day E11.9 100 Strip 3 Sotalol HCl 80 MG Oral Tablet (Betapace) TAKE 1/2 TABLET BY MOUTH TWICE DAILY 90 Tablet 3 linaGLIPtin 5 MG Oral Tablet (Tradjenta) Take 1 Tablet by mouth in the morning. 90 Tablet 3 Empagliflozin 10 MG Oral Tablet (Jardiance) TAKE ONE TABLET BY MOUTH IN THE MORNING 30 Tablet 5 Carvedilol 12.5 MG Oral Tablet (Coreg) Take 1 Tablet by mouth in the morning and 1 Tablet before bedtime. 180 Tablet 3 Furosemide 40 MG Oral Tablet (Lasix) Take one tablet in the morning 90 Tablet 3 Metamucil Fiber Oral Tablet Chewable [...] mouth in the morning. 30 Tablet 5 albuterol HFA (PROVENTIL HFA) 108 (90 BASE) MCG/ACT inhaler Use 2 puffs every 4- 6hrs as needed for wheezing/shortness of breath 1 Inhaler 3 No current facility-administered medications for this visit. OBJECTIVE/PHYSICAL EXAMINATION: BP 154/84 | Pulse 64 | Resp 16 | Wt 65.8 kg (145 lb) | BMI 22.05 kg/m | BSA 1.78 m General: Alert and oriented x3. No acute distress. Pleasant. Comfortable. Cooperative. Skin: No rash Eyes: PER. Conjunctiva pink, sclera clear. HENT: Normocephalic. Atraumatic. Neck: No carotid bruits. No JVD. No HJR. Heart: RRR. No murmur. No rub. No gallop. PMI is nondisplaced. Lungs: Clear to auscultation. No wheeze. No rales. No rhonchi Abdomen: +BS. Soft. Nontender. No masses. No organomegaly. Extremities: 2+ right greater than left lower extremity edema. Pulses: radial=2/4, posterior tibial=1/4. Limited neurological examination: No focal deficit. ASSESSMENT: Multifactorial volume overload - HRpEF, hypoalbuminemia, medication Paroxysmal atrial fibrillation maintained in sinus rhythm with sotalol, anticoagulation discontinued as above. Prior palpitations attributed to sensed ventricular ectopy. Chronic coronary artery disease, history of non-ST elevation [place] 2011 s/p drug- eluting stent implantation to the left anterior descending artery. Dyslipidemia Hypertension CKD stage 3 COPD without acute exacerbation GERD RECOMMENDATIONS/PLAN: Increase dietary protein intake Reduce dietary sodium intake. Increase furosemide from 40 mg/day to 60 mg/day Cardiology follow-up in 2-3 months or as needed. ER with emergencies. James Reyes PA-C Department of Cardiology documented in this encounter Nursing Notes * Avery Mac LPN - 01/19/2023 10:21 AM EDT Patient identified by full name and date of Chief Complaint Patient presents with Follow Up 9 month follow up. BP a little high this morning- 200/90's. Edema in LE a little better but still ongoing. Denies chest pain, palpitations, SOB and dizziness. Examination Room: 2 Name: Teodoro Arceo Date of : (1935). Reason for Visit: 9 month follow up Interim Hospitalization(s): Denies Problems/Concerns: See chief complaint Chest Pain/SOB: Denies [facility] Discussed: Not applicable [facility] is a way you can talk to your provider online through e-mail. Would you like to sign up? I can activate it for you? ALREADY ACTIVE Patient was instructed to not get up on the exam table until directed and assisted by their provider; patient is to remain seated in the chair/ wheelchair/ exam table for fall prevention and safety reasons. Patient is aware to have assistance to step down off exam table with personnel. Patient voiced full comprehension of instructions. documented in this encounter Plan of Treatment Upcoming Encounters Date Type Department Care Team (Late st Contact Info) Description 01/24/2023 8:45 AM EDT Office Visit Orthopaedics [facility] [address] [place] [address] Aaron Boss MD [address] [place] [phone] 02/15/2023 10:00 AM EST Office Visit Orthopaedics [facility] [address] [place] [address] Jeison Arteaga DO [address] [place] [address] 03/22/2023 8:00 AM EST Office Visit [facility] [address] [place] [phone] Eldon Dowd MD [address] [place] [address] 05/16/2023 11:00 AM EST Office Visit Hematology/Oncology [facility] [address] [place] [address] Patricia Conway MD [address] [place] [address] 06/11/2023 8:00 AM EDT Office Visit Cardiology, [facility] [address] [place] [address] James Reyes PA-C [address] [place] [address] 07/06/2023 10:00 AM EDT Office Visit Nephrology, [facility] [address] [place] [address] Lili Rodríguez MD [address] [place] [address] 07/31/2023 8:00 AM EDT Office Visit Urology, [facility] [address] [place] [address] Andrea Antony MD [address] [place] [address] [place] [address] 10/11/2023 10:00 AM EDT Nurse Only Ancillary Department, [place] [address] [place] [facility] [place] [facility] [place] [address] Roberta, Nurse Annual Wellness [address] [place] [address] Health Maintenance Due Date Last Done Comments Hepatitis B (1 of 3 - Risk 3-dose series) 1994 DIABETES-EYE EXAM 04/25/2022 04/25/2021, , 12/30/2018 COVID-19 Vaccine ( season) 2022 01/16/2022, 07/18/2021, 02/14/2021, Additional history exists HbA1c 03/23/2023 09/21/2022, 05/31, 12/12/2021, Additional history exists CKD HGB USE SMARTSET 10488 09/15/202309/14, 05/16/2022, 05/16/2022, Additional history exists Depression Screening 10/10/2023 10/09/2022 Diabetic Foot Exam 10/10/2023 10/09/2022, 0 08/30/2021, 10/31/2019, Additional history exists Albumin/Creatinine Ratio 12/16/2023 023, 03/22/2022, 03/30/2021, Additional history exists CKD PHOS USE SMARTSET 74148 12/16/202312/01, 12/12/2021, 12/02/2019, Additional history exists DTaP,Tdap,and [...] as of this encounter Visit Diagnoses Diagnosis Hypervolemia, unspecified hypervolemia type- Primary Coronary artery disease involving three affiliated coronary artery of three affiliated heart without angina pectoris Chronic diastolic congestive heart failure (HCC) Chronic diastolic heart failure 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
--- OUTSIDE RECORDS SUMMARY | 2023-02-27 00:13 | External Medical Summary | Summary of Care ---
Author Name Unknown Organization [facility] Address [address] [facility] [place] [address] Phone [phone] Care Team Providers Care Manager Market Development Name Role Phone Eldon Dowd MD Primary Care Provider +1- [phone] Reason for Visit * Reason Comments Follow Up 2 week follow up lef t shoulder Encounter Details Date Type Department Care Team (Late st Contact Info) Description 01/24/2023 8:45 AM EDT Office Visit Orthopaedics [facility] [address] [place] [address] Aaron Boss MD [address] [place] [...] 24 Hour (Imdur)Indications:C oronary artery disease involving eek coronary artery of eek heart without angina pectoris,NSTEMI (non-ST elevated myocardial [...] URI with cough 03/25/2014 017 Accelerate Clinical Trial*[id number] 08/27/2012 08/27/2012 Accelerate Clinical Trial*[id number] 08/27/2012 03/29/2015 Overview: ACCELERATE STUDY. Project # [id number], COUNSELING DIRECTOR: Basil Everett MD. CRC: GENE Whitney. SUMMARY: To test the hypothesis that Evacetrapib 130 mg, in comparison to placebo, reduces the risk of major adverse coronary events in high-risk vascular disease patients. CONTACTS: During normal business hours, contact study staff at ; after hours Secondary English Teacher via the [facility] hospital microphone operator [phone]. 24-hour Global Study Helpline: [phone]. Lipid levels should not be ordered/obtained while this subject is in the Accelerate study. Lipids are being managed in a blinded fashion. If lipid levels are inadvertently obtained, it is important that test results are NOT provided to the patient, study doctor, community outreach coordinator, or other study team members. Restricted meds while in the study: 1) niacin > 250 mg, 2) gemfibrozil with a potent [id number]. Hyperglycemia 02/18/2012 01/10/2017 NSTEMI (non-ST elevated myoc [...] of the elbow. Aaron Boss MD Orthopaedics [place] [address] Orthopedic Sports Medicine Surgery 01/24/2023 8:56 AM This chart was completed in part utilizing [employer] Speech Voice Recognition Software. Grammatical errors, random [...] Nursing Notes * Shilpa Huddleston LPN - 01/24/2023 8:19 AM EDT 2 week follow up left shoulder bursa aspiration. "Mass" returned. States he applied ice. Shilpa MEDINA documented in this encounter Plan of Treatment Upcoming Encounters Date Type Department Care Team (Late st Contact Info) Description 02/15/2023 10:00 AM EST Office Visit Orthopaedics [facility] [address] [place] [address] Jeison Arteaga, [address] [place] [address] 02/15/2023 11:30 AM EST Office Visit Orthopaedics [facility] [address] [place] [address] Aaron Boss MD [address] [place] [phone] 03/22/2023 8:00 AM EST Office Visit [facility] [address] [place] [phone] Eldon Dowd MD [address] [place] [address] 05/16/2023 11:00 AM EST Office Visit Hematology/Oncology [facility] [address] [place] [address] Patricia Conway MD [address] [place] [address] 06/11/2023 8:00 AM EDT Office Visit Cardiology, [facility] [address] [place] [address] James Reyes PA-C [address] [place] [address] 07/06/2023 10:00 AM EDT Office Visit Nephrology, [facility] [place] [address] [facility] [place] [address] Lili Rodríguez MD 200 [facility] [place] [address] 07/31/2023 8:00 AM EDT Office Visit Urology, [facility] [address] [facility] [place] [address] Andrea Antony MD [address] [facility] [place] [address] [place] [address] 10/11/2023 10:00 AM EDT Nurse Only Ancillary Department, [facility] [address] [place] [address] [facility], Nurse Annual Wellness [address] [place] [address] Health Maintenance Due Date Last Done Comments Hepatitis B (1 of 3 - Risk 3-dose series) 1994 DIABETES-EYE EXAM 04/25/2022 04/25/2021, , 12/30/2018 COVID-19 Vaccine ( season) 2022 01/16/2022, 07/18/2021, 02/14/2021, Additional history exists HbA1c 03/23/2023 09/21/2022, 05/31, 12/12/2021, Additional history exists CKD HGB USE SMARTSET 90060 09/15/202309/14, 05/16/2022, 05/16/2022, Additional history exists Depression Screening 10/10/2023 10/09/2022 Diabetic Foot Exam 10/10/2023 10/09/2022, 0 08/30/2021, 10/31/2019, Additional history exists Albumin/Creatinine Ratio 12/16/2023 023, 03/22/2022, 03/30/2021, Additional history exists CKD PHOS USE SMARTSET 62014 12/16/202312/01, 12/12/2021, 12/02/2019, Additional history exists DTaP,Tdap,and [...] documented in this encounter Care Teams Manager Market Development Relationship Specialty Start Date End Date Eldon Dowd MD [address] [place] [address] PCP - General Family Medicine 12/05/18 documented as of this encounter
--- OUTSIDE RECORDS SUMMARY | 2023-02-27 00:13 | External Medical Summary | Summary of Care ---
Author Name Unknown Organization [facility] Address [address] [place] [address] Phone [phone] Care Team Providers Care Avionics Shop Supervisor Name Role Phone Eldon Dowd MD Primary Care Provider +1- [phone] Encounter Details Date Type Department Care Team (Late st Contact Info) Description 01/23/2023 Orders Only Outcomes Research Department [address] [place] [address] Sonali Nichols CHRA MyCode Research Other*[id number] Allergies Active Allergy Reactions Criticality Noted Date Comments Candesartan Cilexetil 01/04/2012 hyperkalemia Atenolol 08/21/2012 Pt was told not to take this again Other reaction(s): PT WAS TOLD NEVER TO TAKE AGAIN Candesartan High 06/13/2022 Other reaction(s): HYPERKALEMIA Lisinopril Other (Please comment) High 01/16/2014 Hypotension/ Increased creatinine Other reaction(s): INCREASED CREATININE/HYPOTENSION documented as of this encounter (statuses as of 01/23/2023) Medications Medication Sig Dispensed Refills Start Date [...] (PROVENTIL HFA) 108 (90 BASE) MCG/ACT inhalerIndications:B joel, hilary Use 2 puffs every 4-6hrs as needed [...] 24 Hour (Imdur)Indications: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) TAKE ONE TABLET BY MOUTH EVERY MORNING. 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 Project # [id number], PAGE MAKEUP SYSTEM OPERATOR: Basil Everett MD. CRC: GENE Whitney. SUMMARY: To test the hypothesis that Evacetrapib 130 mg, in comparison to placebo, reduces the risk of major adverse coronary events in high-risk vascular disease patients. CONTACTS: During normal business hours, contact study staff at ; after hours Medical Office Rep via the [facility] canteen operator [phone]. 24-hour Global Study Helpline: [phone]. Lipid levels should not be ordered/obtained while this subject is in the Accelerate study. Lipids are being managed in a blinded fashion. If lipid levels are inadvertently obtained, it is important that test results are NOT provided to the patient, study doctor, after school coordinator, or other study team members. Restricted meds while in the study: 1) niacin > 250 mg, 2) gemfibrozil with a potent [id number]. Hyperglycemia 02/18/2012 01/10/2017 NSTEMI (non-ST elevated myoc [...] as of this encounter (statuses as of 01/23/2023) Immunizations Name Administration Dates Next Due COVID-19 [...] 01/24/2023 8:45 AM EDT Office Visit Orthopaedics [facility] [address] [place] [address] Aaron Boss MD [address] [place] [phone] 02/15/2023 10:00 AM EST Office Visit [facility]opaedics [facility] [place] [address] Jeison Arteaga DO [address] [place] [address] 03/22/2023 8:00 AM EST Office Visit [address] [phone] Eldon Dowd MD [address] [place] [address] 05/16/2023 11:00 AM EST Office Visit Hematology/Oncology [facility] [place] [address] [place] [address] Patricia Conway MD [address] [place] [address] 06/11/2023 8:00 AM EDT Office Visit Cardiology, [facility] [place] [address] James [facility]yes PA-C [facility] [place] [address] 07/06/2023 10:00 AM EDT Office Visit Nephrology, [facility] [address] [facility] [place] [address] Lili Rodríguez MD [address] [facility] [place] [address] 07/31/2023 8:00 AM EDT Office Visit Urology, [facility] [address] [facility] [place] [address] Andrea Antony MD 27 [facility] [address] [place] [address] 10/11/2023 10:00 AM EDT Nurse Only Ancillary Department, [place] [address] [place] [address] [place], Nurse Annual Wellness [address] [place] [address] Scheduled Orders Name Type Priority Associated Diagnoses Orde r Schedule MYCODE SUBSEQUENT ADULT Lab Routine MyCode Research Other*[id number] Every 6 Months for 2 Occurrences starting 01/23/2023 until 02/12/2024 Health Maintenance Due Date Last Done Comments Hepatitis B (1 of 3 - Risk 3-dose series) 1994 DIABETES-EYE EXAM 04/25/2022 04/25/2021, , 12/30/2018 COVID-19 Vaccine ( season) 2022 01/16/2022, 07/18/2021, 02/14/2021, Additional history exists HbA1c 03/23/2023 09/21/2022, 0308/2022, 12/12/2021, Additional history exists CKD HGB USE SMARTSET 52972 09/15/202309/14, 05/16/2022, 05/16/2022, Additional history exists Depression Screening 10/10/2023 10/09/2022 Diabetic Foot Exam 10/10/2023 10/09/2022, 0 08/30/2021, 10/31/2019, Additional history exists Albumin/Creatinine Ratio 12/16/2023 023, 03/22/2022, 03/30/2021, Additional history exists CKD PHOS USE SMARTSET 81538 12/16/202312/01, 12/12/2021, 12/02/2019, Additional history exists DTaP,Tdap,and Td Vaccines (2 - Td or Tdap) 05/24/2025 05/24/2015, 03/14/2006, 05/03/1993 Pneumococcal Vaccine: 65+ Years Completed 11/19/2014, 02/17/2005, 01/31/1998 Zoster Vaccines Completed 07/12/2021, 100 05/2018, 01/06/2011 Influenza Vaccine (FLU shot) Completed , 01/04/2022, 12/28/2020, Additional history exists GARDASIL-HPV IMMUNIZATION SERIES Aged Out No longer eligible based on patient's age to complete this topic MENINGOCOCCAL (MENACTRA/MENVEO) Aged Out No longer eligible based on patient's age to complete this topic documented as of this encounter Medical Devices Not on filedocumented as of this encounter Visit Diagnoses Diagnosis MyCode Research Other*[id number] documented in this encounter Care Teams Avionics Shop Supervisor Relationship Specialty Start Date End Date Eldon Dowd MD [address] [place] [address] PCP - General Family Medicine 12/05/18 documented as of this encounter
--- OUTSIDE RECORDS SUMMARY | 2023-02-27 00:13 | External Medical Summary | Summary of Care ---
Author Name Unknown Organization [facility] Address [address] [facility] [address] Phone [phone] Care Team Providers Care Tuber Operator Name Role Phone Eldon Dowd MD Primary Care Provider +1- [phone] Reason for Referral * Evaluate & Treat - Unlimited Visits (Within 3 days (urgent)) - Pending Review Specialty Diagnoses / Procedures Referred By Urmila paniagua Referred To Contact HOME CARE / Home Care Diagnoses Synovial cyst of shoulder Olecranon bursitis of left elbow Ambulatory dysfunction Rotator cuff arthropathy of left shoulder Protein-calorie malnutrition, unspecified severity (HCC) Type 2 diabetes mellitus with hemoglobin A1c goal of less than 8.0% (HCC) Aaron Boss MD [address] [place] [address] Referral ID Status Reason Start Date Expiration Date Visits Requested Visits Authorized [id number] Pending Review Specialty Services Required 3 [phone] Question Answer Referral Priority Within 3 days (urgent) Where should this appointment be scheduled? Yohana Comments Documentation of Dtmu-km-Gbpy Encounter Addendum Patient Name: Teodoro Arceo I certify that this patient is under my care and that I, or a nurse practitioner or physician's mobile unit assistant working with me, had a ajlo-gj-citq encounter that meets the physician zxls-zy-qtbh encounter requirements with this patient on: 01/10/23 The encounter with the patient was in whole, or in part, for the following medical condition, which is the primary reason for home health care (List medical condition): Wound care I certify that, based on my findings, the following services are medically necessary home health services: Nursing To provide the following care/treatments: (All hospitalists not following the patient after discharge should complete this section): dressing changes to left elbow and left shoulder . Primary Care Physician to follow home care plan of care after discharge: Eldon Pandya My clinical findings support the need for the above services because: inability to dress left elbow and left shoulder draining bursa. Further, I certify that my clinical findings support that this patient is homebound (i.e. Absences from home require considerable and taxing effort and are for medical reasons or shinto services or infrequently or of short duration when for other reason) because: Inability to drive due to inflamed, draining bursa left elbow and shoulder. Physician Signature: Date of Signature: Physician Printed Name: Aaron Rome MD Encounter Details Date Type Department Care Team (Late st Contact Info) Description 01/10/2023 Telephone Orthopaedics [facility] [address] [place] [id number] Aaron Boss MD [address] [place] [phone] Allergies Active Allergy Reactions Criticality Noted Date [...] hemoglobin A1c goal of less than 8.0% ([facility]) Take 1 Tablet by mouth in the [...] 24 Hour (Imdur)Indications :Coronary artery disease involving [place] coronary artery of [place] heart without angina pectoris,NSTEMI (non-ST elevated myocardial [...] URI with cough 03/25/2014 017 Accelerate Clinical Trial*[id number] 08/27/2012 08/27/2012 Accelerate Clinical Trial*[id number] 08/27/2012 03/29/2015 Overview: ACCELERATE STUDY. Project # [id number], SUPERVISOR PAIRING AND INSPECTING: Basil Everett MD. CRC: GENE Whitney. SUMMARY: To test the hypothesis that Evacetrapib 130 mg, in comparison to placebo, reduces the risk of major adverse coronary events in high-risk vascular disease patients. CONTACTS: During normal business hours, contact study staff at ; after hours Design Printing Machine Setter via the [facility] hospital switchboard operator receptionist [phone]. 24-hour Global Study Helpline: [phone]. Lipid levels should not be ordered/obtained while this subject is in the Accelerate study. Lipids are being managed in a blinded fashion. If lipid levels are inadvertently obtained, it is important that test results are NOT provided to the patient, study doctor, marketing and development coordinator, or other study team members. Restricted meds while in the study: 1) niacin > 250 mg, 2) gemfibrozil with a potent [id number]. Hyperglycemia 02/18/2012 01/10/2017 NSTEMI (non-ST elevated myoc [...] encounter Miscellaneous Notes * Telephone Encounter - Viv Gibbs LPN - 01/22/2023 2:40 PM EDT Received fax from [facility] in regards to prescribed medication. Dr. Boss has not prescribedany medication for this patient would need to notifiy prescribing doctors. Faxed sheet back to [facility] [phone] success and confirmed * Telephone Encounter - Shilpa Huddleston LPN - 01/10/2023 1:02 PM EDT Successfully faxed 9 pages of demographics, insurance info and today's office notes to [facility] .) 2-3 week dressing changes left shoulder and left elbow. Shilpa Díaz LPN documented in this encounter Plan of Treatment Upcoming Encounters Date Type Department Care Team (Late st Contact Info) Description 01/24/2023 8:45 AM EDT Office Visit Orthopaedics [facility] [address] [place] [address] Aaron Boss MD [address] [place] [phone] 02/15/2023 10:00 AM EST Office Visit Orthopaedics [facility] [address] [place] [address] Jeison Arteaga DO [address] [place] [address] 03/22/2023 8:00 AM EST Office Visit [place] [address] [place] [address] Eldon Dowd MD [address] [place] [address] 05/16/2023 11:00 AM EST Office Visit Hematology/Oncology [address] [place] [address] Patricia Conway MD 200 [facility] [place] [address] 06/11/2023 8:00 AM EDT Office Visit Cardiology, [facility] [address] [place] [address] James Reyes PA-C [address] [place] [address] 07/06/2023 10:00 AM EDT Office Visit Nephrology, [facility] [address] [place] [place] [address] Lili Rodríguez MD [address] [place], [place] [address] 07/31/2023 8:00 AM EDT Office Visit [facility], [facility] [place] [address] Andrea Antony MD [address] [place] [address] [place] [address] 10/11/2023 10:00 AM EDT Nurse Only Ancillary Department, [address] [address] [employer], Nurse Annual Wellness [address] [place] [address] Scheduled Referrals Name Type Priority Associated Diagnoses Orde r Schedule HOME HEALTH REFERRAL OP Referral Within 3 days (urgent) Synovial cyst of shoulder Olecranon bursitis of left elbow Ambulatory dysfunction Rotator cuff arthropathy of left shoulder Protein-calorie malnutrition, unspecified severity (HCC) Type 2 diabetes mellitus with hemoglobin A1c goal of less than 8.0% (HCC) Ordered: 01/10/2023 Health Maintenance Due Date Last Done Comments Hepatitis B (1 of 3 - Risk 3-dose series) 1994 DIABETES-EYE EXAM 04/25/2022 04/25/2021, , 12/30/2018 COVID-19 Vaccine ( season) 2022 01/16/2022, 07/18/2021, 02/14/2021, Additional history exists HbA1c 03/23/2023 09/21/2022, 05/31, 12/12/2021, Additional history exists CKD HGB USE SMARTSET 41204 09/15/202309/14, 05/16/2022, 05/16/2022, Additional history exists Depression Screening 10/10/2023 10/09/2022 Diabetic Foot Exam 10/10/2023 10/09/2022, 0 08/30/2021, 10/31/2019, Additional history exists Albumin/Creatinine Ratio 12/16/2023 023, 03/22/2022, 03/30/2021, Additional history exists CKD PHOS USE SMARTSET 80024 12/16/202312/01, 12/12/2021, 12/02/2019, Additional history exists DTaP,Tdap,and [...] Diagnoses Diagnosis Synovial cyst of shoulder- Primary Olecranon bursitis of left elbow Olecranon bursitis Ambulatory dysfunction Rotator cuff arthropathy of left shoulder Protein-calorie malnutrition, unspecified severity (HCC) Type 2 diabetes mellitus with hemoglobin A1c goal of less than 8.0% (HCC) documented in this encounter Care Teams Tuber Operator Relationship Specialty Start Date End Date Eldon Dowd MD [address] [place] [address] PCP - General Family Medicine 12/05/18 documented as of this encounter
--- OUTSIDE RECORDS SUMMARY | 2023-02-27 00:14 | External Medical Summary | Summary of Care ---
Author Name Unknown Organization [facility] Address [address] [place] [address] Phone [phone] Care Team Providers Care Traction Power Engineer Name Role Phone Eldon Dowd MD Primary Care Provider [phone]- [phone] Reason for Referral * Evaluate & Treat - Unlimited Visits (Within 30 days (routine)) - Pending Review Specialty Diagnoses / Procedures Referred By Urmila paniagua Referred To Contact Orthopaedic Surgery / Orthopedics Diagnoses Left shoulder pain, unspecified chronicity Eldon Dowd MD [address] [place] [address] Referral ID Status Reason Start Date Expiration Date Visits Requested Visits Authorized [id number] Pending Review Specialty Services Required 10/05/[phone] Question Answer Referral Priority Within 30 days (routine) What body part is the patient being seen for? Shoulder What condition is the patient being seen for? Sprain/Strain/Tear/Other Reason for Visit * Reason Onset Date Comments Referral 10/04/2022 Encounter Details Date Type Department Care Team Description 10/04/2022 Telephone [facility] [address] [place] [address] Eldon Dowd MD [address] [place] [place] [address] Referral Allergies Active Allergy Reactions Severity Noted Date Comments Candesartan Cilexetil 01/04/2012 hyperkalemia Atenolol 08/21/2012 Pt was told not to take this again Other reaction(s): PT WAS TOLD NEVER TO TAKE AGAIN Candesartan High 06/13/2022 Other reaction(s): HYPERKALEMIA Lisinopril Other (Please comment) High 01/16/2014 Hypotension/ Increased creatinine Other reaction(s): INCREASED CREATININE/HYPOTENSION documented as of this encounter (statuses as of 01/03/2023) Medications Medication Sig Dispensed Refills Start Date [...] of breath 1 Inhaler 3 09/06/2018 Active Sotalol HCl 80 MG Oral Tablet (Betapace) TAKE 1/2 TABLET BY MOUTH TWICE DAILY 90 Tablet 3 01/24/2022 01/24/2023 Active linaGLIPtin 5 MG Oral Tablet (Tradjenta)Indicat ions:Type 2 diabetes mellitus with hemoglobin A1c goal of less than 8.0% (HCC) Take 1 Tablet by mouth in the morning. 90 Tablet 3 04/04/2022 Active Empagliflozin 10 MG Oral Tablet (Jardiance) TAKE ONE TABLET BY MOUTH IN THE MORNING 30 Tablet 5 06/21/2022 06/21/2023 Active Carvedilol 12.5 MG Oral Tablet (Coreg)Indications :CAD (coronary artery disease),Paroxysma l atrial fibrillation (HCC) Take 1 Tablet by mouth in the morning and 1 Tablet before bedtime. 180 Tablet 3 08/25/2022 Active Furosemide 40 MG Oral Tablet (Lasix) Take one tablet in the morning 90 Tablet 3 09/20/2022 Active Metamucil Fiber Oral Tablet Chewable Take by mouth. 0 Active Isosorbide Mononitrate ER 60 MG Oral Tablet Extended Release 24 Hour (IMDUR)Indications :Coronary artery disease involving [place] coronary artery of [place] heart without angina pectoris,NSTEMI (non-ST elevated myocardial infarction) (HCC) TAKE ONE TABLET BY MOUTH EVERY MORNING. 90 Tab 3 01/26/2020 10/11/2022 Discontinue d(Refill) Atorvastatin Calcium 80 MG Oral Tablet (Lipitor)Indicatio ns:Encounter for long-term (current) use of other medications TAKE ONE TABLET BY MOUTH DAILY 90 Tablet 3 12/07/2021 11/14/2022 Discontinue d(Refill) predniSONE 5 MG Oral Tablet (Deltasone) TAKE 1 TO 3 TABLETS BY MOUTH DAILY 100 Tablet 5 11/17/2021 10/12/2022 Discontinue d(Refill) Terazosin HCl 2 MG Oral CapsuleIndications :HTN, goal below 150/90 TAKE ONE CAPSULE BY MOUTH AT BEDTIME 90 Capsule 1 04/12/2022 10/11/2022 Discontinue d(Refill) Cephalexin 500 MG Oral Capsule (Keflex)Indication s:Left leg cellulitis Take 1 Capsule by mouth in the morning and 1 Capsule at noon and 1 Capsule before bedtime. 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 01/20/2021 Chronic kidney disease, stage 3a 021 Overview: Per CKD protocol Hypertensive kidney disease with stage 3 a chronic kidney disease 02/09/2020 Overview: Per CKD protocol Chronic diastolic congestive heart failu re 01/16/2019 Renal osteodystrophy 01/16/2019 Type 2 diabetes mellitus with chronic ki dney disease 01/16/2019 Old myocardial infarct 12/03/2018 Paroxysmal atrial fibrillation 9 Type 2 diabetes mellitus with hemoglobin A1c goal of less than 8.0% 09/10/2018 Inflammatory polyarthropathies 9 Spinal stenosis of lumbar region with ne urogenic claudication 01/10/2017 HTN, goal below 130/80 01/31/2016 CAD (coronary artery disease) 07/03/2012 Dyslipidemia 09/20/2011 Monoclonal paraproteinemia 11/14/2010 documented as of this encounter (statuses as of 01/03/2023) Resolved Problems Problem Noted Date Resolved Date Hypertensive kidney disease with chronic kidney disease stage III 10/30/2018 02/12/2020 Overview: Per CKD protocol Chest discomfort 02/23/2015 09/01/2016 Viral URI with cough 03/25/2014 09/01/2016 Accelerate Clinical Trial*[id number] 08/27/2012 08/27/2012 Accelerate Clinical Trial*[id number] 08/27/2012 03/29/2015 Overview: ACCELERATE STUDY. Project # [id number], GARBAGE PICK UP WORKER: Basil Everett MD. CRC: GENE Whitney. SUMMARY: To test the hypothesis that Evacetrapib 130 mg, in comparison to placebo, reduces the risk of major adverse coronary events in high-risk vascular disease patients. CONTACTS: During normal business hours, contact study staff at ; after hours Paradi Tender via the [facility] dye range operator cloth [phone]. 24-hour Global Study Helpline: [phone]. Lipid levels should not be ordered/obtained while this subject is in the Accelerate study. Lipids are being managed in a blinded fashion. If lipid levels are inadvertently obtained, it is important that test results are NOT provided to the patient, study doctor, spa coordinator, or other study team members. Restricted meds while in the study: 1) niacin > 250 mg, 2) gemfibrozil with a potent [id number]. Hyperglycemia 02/18/2012 01/10/2017 NSTEMI (non-ST elevated myocardial infarction) 1 04/14/2011 12/03/2018 Diastolic dysfunction 01/04/2012 10/18/2020 HTN, goal below 140/90 09/20/2011 1 History of hyperkalemia 06/30/2011 01/11/20 17 Kidney disease, chronic, stage III (GFR 30-59 ml /min) 05/18/2011 11/14/2018 Shortness of breath 04/21/2011 09/01/2016 High triglycerides 04/21/2011 10/18/2020 Other paraproteinemias 09/13/2010 7 Dyslipidemia, goal to be determined 03/11/2009 09/20/2011 Overview: Per Lipid Taxonomy. HTN, goal below 140/90 02/17/2009 2 Overview: Modified per HTN protocol #16. ADVANCE DIRECTIVE INFORMATION 02/17/2005 Overview: No, Advance Directive brochure given to patient. GLOBAL TRANSIENT AMNESIA 02/13/2000 021 ABNORM ELECTROCARDIOGRAM 02/13/2000 017 HYPERTENSION NOS 02/18/2009 Overview: Modified per HTN protocol #16. Mixed dyslipidemia 03/11/2009 Overview: Per Lipid Taxonomy. DIVERTICULOSIS OF COLON 01/17/20 19 documented as of this encounter (statuses as of 01/03/2023) Immunizations Name Administration Dates Next Due COVID-19 mRNA, LNP-s, No Pre serve, 2-Dose Series (Moderna) 06/04/2020,05/07/2020 COVID-19, mRNA, LNP-s, PF, B ooster, 100mcg/0.5mg (Moderna) 01/16/2022,07/18/2021,02/14/2021 Pneumococcal Conjugate Vacc, 13 Valent (Prevnar) 11/19/2014 Pneumococcal Polysaccharide PPV23 (Pneumovax) 02/17/2005,01/31/1998 SEASONAL INFLUENZA, PF, 6 M & Above, IM , (FLULAVAL or FLUZONE) 12/31/2019,01/02/2019,01/23/2018,01/10 Seasonal Influenza, Quadriva lent Hd (Fluzone Hd) 01/04/2022,12/28/2020 Seasonal Influenza, Quadriva lent, No Preserve, IM 01/31/2016,01/22/2015 Seasonal Influenza, Split, I IV3, With Preserve, Inj 01/16/2014,12/13/2012,12/06/2011,12/26,01/18/2010,01/07/2009,01/28/2008 ,03/14/2006 TD - Tetanus/Diptheria (ADULT) 03/14/2006 TDAP (age 10 and older)(Boostrix) 05/24/2015 Varicella Zoster Vaccine (Adult) 01/06/2011 Zoster Vaccine Recombinant (Shingrix) 07/12/2021 ,01/02/2019 documented as of this encounter Social History Tobacco Use Types Packs/Day Years Used Date Smoking Tobacco: Never Smokeless Tobacco: Never Alcohol Use Standard Drinks/Week Comments No 0 (1 standard drink = 0.6 oz pur e alcohol) Food Insecurity Answer Date Recorded Within the past 12 months, y ou worried that your food would run out before you got money to buy more. Never true 10/09/2022 Within the past 12 months, t he food you bought just didn't last and you didn't have money to get more. Never true 10/09/2022 Sex Assigned at Date Recorded Male 09/10/2018 3:17 PM E DT Job Start Date Occupation Industry Not on file Not on file Not on file documented as of this encounter Miscellaneous Notes * Telephone Encounter - URI Chery - 10/05/2022 8:51 AM EDT Referral placed. 10/05/2022 * Telephone Encounter - Eldon Dowd MD - 10/05/2022 7:49 AM EDT Referral entered * Telephone Encounter - Cynthia Zhu - 10/04/2022 2:50 PM EDT Patient came into our Ortho urgent care walk in clinic thi morning. He has a lump on his left shoulder. Could you please put in a referral for him. Thank you. documented in this encounter Plan of Treatment Upcoming Encounters Date Type Specialty Care Team Description 01/06/2023 Imaging Radiology 01/10/2023 Office Visit Orthopedics Aaron Boss MD [address] [place] [id number] 01/10/2023 Nurse Only Nephrology Sp, Nurse Nephrology [address] [place] [address] 01/19/2023 Office Visit Cardiology James Reyes PA-C [address] [place] [address] 02/15/2023 Office Visit Orthopedics Jeison Arteaga DO [address] [facility] [place] [address] 03/22/2023 Office Visit Family Medicine Eldon Dowd MD [address] [place] [address] 05/16/2023 Office Visit Hematology Oncology Patricia Conway MD [address] [place] [address] 07/06/2023 Office Visit [facility]phrology Lili Rod[facility] [address] [facility] [address] 07/31/2023 Office Visit Urology Andrea Antony MD [address] [address] [place] [address] 10/11/2023 Nurse Only Gini Tapia, [facility] [address] [place] [address] Scheduled Referrals Name Type Priority Associated Diagnoses Orde r Schedule ORTHOPAEDICS REFERRAL OP Referral Within 30 days (routine) Left shoulder pain, unspecified chronicity Ordered: 10/05/2022 Health Maintenance Due Date Last Done Comments DIABETES-EYE EXAM 04/25/2022 04/25/2021, , 12/30/2018 COVID-19 Vaccine ( season) 2022 01/16/2022, 07/18/2021, 02/14/2021, Additional history exists HbA1c 03/23/2023 09/21/2022, 05/31, 12/12/2021, Additional history exists CKD HGB USE SMARTSET 04869 09/15/202309/14, 05/16/2022, 05/16/2022, Additional history exists Depression Screening 10/10/2023 10/09/2022 Diabetic Foot Exam 10/10/2023 10/09/2022, 0 08/30/2021, 10/31/2019, Additional history exists Albumin/Creatinine Ratio 12/16/2023 023, 03/22/2022, 03/30/2021, Additional history exists CKD PHOS USE SMARTSET 26226 12/16/202312/01, 12/12/2021, 12/02/2019, Additional history exists DTaP,Tdap,and Td Vaccines (2 - Td or Tdap) 05/24/2025 05/24/2015, 03/14/2006, 05/03/1993 Pneumococcal Vaccine: 65+ Years Completed 11/19/2014, 02/17/2005, 01/31/1998 Zoster Vaccines Completed 07/12/2021, 1005/2018, 01/06/2011 Influenza Vaccine (FLU shot) Completed , 01/04/2022, 12/28/2020, Additional history exists GARDASIL-HPV IMMUNIZATION SERIES Aged Out No longer eligible based on patient's age to complete this topic Hepatitis B Aged Out No longer eligi ble based on patient's age to complete this topic MENINGOCOCCAL (MENACTRA/MENVEO) Aged Out No longer eligible based on patient's age to complete this topic documented as of this encounter Medical Devices Not on filedocumented as of this encounter Visit Diagnoses Diagnosis Left shoulder pain, unspecified chronicity- Primary documented in this encounter Care Teams Traction Power Engineer Relationship Specialty Start Date End Date Eldon Dowd MD [address] [facility] [place] [id number] PCP - General Family Medicine 12/05/18 documented as of this encounter
--- OUTSIDE RECORDS SUMMARY | 2023-02-27 00:14 | External Medical Summary | Summary of Care ---
Author Name Unknown Organization [facility] Address [address] [facility] [place] [address] Phone [phone] Care Team Providers Care Air Pollution Inspector Name Role Phone Eldon Dowd MD Primary Care Provider [phone]- [phone] Reason for Visit * Reason Onset Date Comments Appointment 01/03/2023 Encounter Details Date Type Department Care Team Description 01/03/2023 Telephone Radiology [address] [facility] [place] [id number] Aaliyah Seth TECH Appointment Allergies Active Allergy Reactions Severity Noted Date [...] HFA) 108 (90 BASE) MCG/ACT inhalerIndications:B joel, complicated Use 2 puffs every 4-6hrs as needed for wheezing/shortn ess of breath 1 Inhaler 3 09/06/2018 Active Sotalol HCl 80 MG Oral Tablet (Betapace) TAKE 1/2 TABLET BY MOUTH TWICE DAILY 90 Tablet 3 01/24/2022 01/24/2023 Active linaGLIPtin 5 MG Oral Tablet (Tradjenta)Indicatio ns:Type 2 diabetes mellitus with hemoglobin A1c goal of less than 8.0% (HCC) Take 1 Tablet by mouth in the morning. 90 Tablet 3 04/04/2022 Active Empagliflozin 10 MG Oral Tablet (Jardiance) TAKE ONE TABLET BY MOUTH IN THE MORNING 30 Tablet 5 06/21/2022 06/21/2023 Active Carvedilol 12.5 MG Oral Tablet (Coreg)Indications:C [...] 24 Hour (Imdur)Indications:C oronary artery disease involving [place] coronary artery of [place] heart without angina pectoris,NSTEMI (non-ST elevated myocardial [...] the morning. 30 Tablet 5 12/22/2022 Active documented as of this encounter (statuses [...] URI with cough 03/25/2014 09/01/2016 Accelerate Clinical Trial*[id number] 08/27/2012 08/27/2012 Accelerate Clinical Trial*[id number] 08/27/2012 03/29/2015 Overview: ACCELERATE STUDY. Project # [id number], ACTUARIAL INTERNSHIP: Basil Everett MD. CRC: GNEE Whitney. SUMMARY: To test the hypothesis that Evacetrapib 130 mg, in comparison to placebo, reduces the risk of major adverse coronary events in high-risk vascular disease patients. CONTACTS: During normal business hours, contact study staff at ; after hours Book Cleaner via the [facility] lanolin plant operator [phone]. 24-hour Global Study Helpline: [phone]. Lipid levels should not be ordered/obtained while this subject is in the Accelerate study. Lipids are being managed in a blinded fashion. If lipid levels are inadvertently obtained, it is important that test results are NOT provided to the patient, study doctor, printing services coordinator, or other study team members. Restricted meds while in the study: 1) niacin > 250 mg, 2) gemfibrozil with a potent [id number]. Hyperglycemia 02/18/2012 01/10/2017 NSTEMI (non-ST elevated myocardial [...] encounter Miscellaneous Notes * Telephone Encounter - POOJA Denton - 01/03/2023 2:05 PM EDT Name: Teodoro Arceo Do you have any of the following: Pacemaker, stents, heart valves, aneurysm clips? No Have you ever worked with metal or have you ever gotten metal in your eyes? No Have you had a colonoscopy in the last 30 days? No On dialysis? No Do you have any dermals or body piercing's? No or ? Do you wear an insulin pump or diabetic monitor? no POOJA Denton documented in this encounter Plan of Treatment Upcoming Encounters Date Type Specialty Care Team Description 01/06/2023 Imaging Radiology 01/10/2023 Office Visit Orthopedics Aaron Boss MD [address] [place] [phone] 01/10/2023 Nurse Only Nephrology Sp, Nurse Nephrology [address] [place] [address] 01/19/2023 Office Visit Cardiology James Reyes PA-C [address] [place] [address] 02/15/2023 Office Visit Orthopedics Jeison Arteaga DO [address] [place] [address] 03/22/2023 Office Visit Family Medicine Eldon Dowd MD [place] [address] 05/16/2023 Office Visit Hematology Oncology Patricia Conway MD [address] [facility] [place] [address] 07/06/2023 Office Visit Nephrology Lili Rodríguez MD [address] [facility] [place] [address] 07/31/2023 Office Visit Urology Andrea Antony MD [address] [place] [address] 10/11/2023 Nurse Only Ancillary Nurse [facility] [address] [facility] [address] Health Maintenance Due Date Last Done Comments DIABETES-EYE EXAM 04/25/2022 04/25/2021, , 12/30/2018 COVID-19 Vaccine ( season) 2022 01/16/2022, 07/18/2021, 02/14/2021, Additional history exists HbA1c 03/23/2023 09/21/2022, 05/31, 12/12/2021, Additional history exists CKD HGB USE SMARTSET 67835 09/15/202309/14, 05/16/2022, 05/16/2022, Additional history exists Depression Screening 10/10/2023 10/09/2022 Diabetic Foot Exam 10/10/2023 10/09/2022, 0 08/30/2021, 10/31/2019, Additional history exists Albumin/Creatinine Ratio 12/16/2023 023, 03/22/2022, 03/30/2021, Additional history exists CKD PHOS USE SMARTSET 72736 12/16/202312/01, 12/12/2021, 12/02/2019, Additional history exists DTaP,Tdap,and [...] filedocumented as of this encounter Care Teams Air Pollution Inspector Relationship Specialty Start Date End Date Eldon Dowd MD [address] [place], [place] [phone] PCP - General Family Medicine 12/05/18 documented as of this encounter
--- OUTSIDE RECORDS SUMMARY | 2023-02-27 00:14 | External Medical Summary | Summary of Care ---
Author Name Unknown Organization [facility] Address [address] [facility] [place] [address] Phone [phone] Care Team Providers Care Social Group Worker Name Role Phone Eldon Dowd MD Primary Care Provider +1- [phone] Reason for Visit * Reason Comments Medication Refill Encounter Details Date Type Department Care Team (Late st Contact Info) Description 01/21/2023 Refill Cardiology, [facility] [address] [place] [address] Jeison Sierra DO [address] [place] [address] Paroxysmal atrial fibrillation (HCC)* Allergies Active Allergy Reactions Criticality Noted Date [...] 24 Hour (Imdur)Indications :Coronary artery disease involving ambler coronary artery of ambler heart without angina pectoris,NSTEMI (non-ST elevated myocardial infarction) ([facility]) TAKE ONE TABLET BY MOUTH [...] Active Sotalol HCl 80 MG Oral Tablet (Betapace)Indicati ons:Paroxysmal atrial fibrillation (HCC) TAKE 1/2 TABLET BY MOUTH TWICE DAILY 90 Tablet 3 01/22/2023 01/22/2024 Active Sotalol HCl 80 MG Oral Tablet (Betapace) TAKE 1/2 TABLET BY MOUTH TWICE DAILY 90 Tablet 3 01/24/2022 01/21/2023 Discontinue d(Refill) Empagliflozin 10 MG Oral Tablet (Jardiance) TAKE ONE TABLET BY MOUTH IN THE MORNING 30 Tablet 5 06/21/2022 01/21/2023 Discontinue d(Refill) documented as of this encounter [...] URI with cough 03/25/2014 017 Accelerate Clinical Trial*[id number] 08/27/2012 08/27/2012 Accelerate Clinical Trial*[id number] 08/27/2012 03/29/2015 Overview: ACCELERATE STUDY. Project # [id number], HEAD WAITER: Basil Everett MD. CRC: GENE Whitney. SUMMARY: To test the hypothesis that Evacetrapib 130 mg, in comparison to placebo, reduces the risk of major adverse coronary events in high-risk vascular disease patients. CONTACTS: During normal business hours, contact study staff at ; after hours Manager System via the [facility] telegraph operator [phone]. 24-hour Global Study Helpline: [phone]. Lipid levels should not be ordered/obtained while this subject is in the Accelerate study. Lipids are being managed in a blinded fashion. If lipid levels are inadvertently obtained, it is important that test results are NOT provided to the patient, study doctor, trade show coordinator, or other study team members. Restricted meds while in the study: 1) niacin > 250 mg, 2) gemfibrozil with a potent [id number]. Hyperglycemia 02/18/2012 01/10/2017 NSTEMI (non-ST elevated myoc [...] encounter Miscellaneous Notes * Telephone Encounter - Matilde Patterson PA-C - 01/22/2023 12:11 PM EDTSigned Prescriptions: Disp Refills Sotalol HCl 80 MG Oral Tablet (Betapace) 90 Tab*3 Sig: TAKE 1/2 TABLET BY MOUTH TWICE DAILY Authorizing Provider: MATILDE PATTERSON * Telephone Encounter - DANIELLA Bernstein - 01/22/2023 10:34 AM EDTPending Prescriptions: Disp Refills Sotalol HCl 80 MG Oral Tablet (Betapace) 90 Tab*3 Sig: TAKE 1/2 TABLET BY MOUTH TWICE DAILY * Telephone Encounter - DANIELLA Bernstein - 01/22/2023 10:34 AM EDT Did you pend patient's preferred pharmacy and medication before forwarding?yes Pharmacy: [facility] Pending Prescriptions: Disp Refills Sotalol HCl 80 MG Oral Tablet (Betapace) 90 Tab*3 Sig: TAKE 1/2 TABLET BY MOUTH TWICE DAILY Last Visit: 01/19/2023 (in office), Visit date not found (telemedicine) Next Visit: 06/11/2023 If no future appointments scheduled, and last appointment is greater than a year ago, please schedule patient for a follow-up appointment Last date the medication was ordered: 01-24-2022 Is this request for a controlled substance?No Urine Drug Screen:No results found. However, due to the size of the patient record, not all encounters were searched. Please check Results Review for a complete set of results. Patient Phone Numbers Fidus Writer [phone] Labs: Lab Results Component Value Date/Time CREAT 0.5 (L) 12/15/2022 10:57 AM CREAT 1.2 12/02/2019 09:02 AM POTASSIUM 4.1 12/15/2022 10:57 AM POTASSIUM 4.8 12/02/2019 09:02 AM TSH 2.38 03/22/2022 08:49 AM TSH 2.950 09/03/2018 12:00 AM TSH 2.72 01/08/2012 04:39 PM LDLCALC 70 03/30/2021 08:10 AM LDLCALC UNINTERPRETABLE RESULT 04/19/2018 10:51 AM LDLDIRECT 81 11/23/2020 10:19 AM LDLDIRECT 97 02/18/2019 11:24 AM ALT 16 12/15/2022 10:57 AM ALT 32 08/29/2019 11:50 AM HGBA1C 7.5 (H) 09/21/2022 10:06 AM HGBA1C 7.3 (H) 08/29/2019 11:50 AM documented in this encounter Plan of Treatment Upcoming Encounters Date Type Department Care Team (Late st Contact Info) Description 01/24/2023 8:45 AM EDT Office Visit Orthopaedics [facility] [address] [place] [address] Aaron Boss MD [address] [place] [address] 02/15/2023 10:00 AM EST Office Visit Orthopaedics [facility] [address] [place] [address] Jeison Arteaga DO [address] [place] [address] 03/22/2023 8:00 AM EST Office Visit [facility] [address] [place] [phone] Eldon Dowd MD [address] [place] [address] 05/16/2023 11:00 AM EST Office Visit Hematology/Oncology [facility] [address] [place] [address] Patricia Conway MD [address] [facility] [place] [address] 06/11/2023 8:00 AM EDT Office Visit Cardiology, [facility] [address] [place] [address] Matilde Patterson PA-C [address] [place] [address] 07/06/2023 10:00 AM EDT Office Visit Nephrology, [facility] [address] [place] [address] Lili Rodríguez MD [address] [place] [address] 07/31/2023 8:00 AM EDT Office Visit Urology, [facility] [address] [facility] [place] [address] Andrea Antony MD [address] [place] [address] [place] [address] 10/11/2023 10:00 AM EDT Nurse Only Ancillary Department, [place] [address] [place] [address] [place], Nurse [facility] [address] [place] [address] Health Maintenance Due Date Last Done Comments Hepatitis B (1 of 3 - Risk 3-dose series) 1994 DIABETES-EYE EXAM 04/25/2022 04/25/2021, , 12/30/2018 COVID-19 Vaccine ( season) 2022 01/16/2022, 07/18/2021, 02/14/2021, Additional history exists HbA1c 03/23/2023 09/21/2022, 05/31, 12/12/2021, Additional history exists CKD HGB USE SMARTSET 71986 09/15/202309/14, 05/16/2022, 05/16/2022, Additional history exists Depression Screening 10/10/2023 10/09/2022 Diabetic Foot Exam 10/10/2023 10/09/2022, 0 08/30/2021, 10/31/2019, Additional history exists Albumin/Creatinine Ratio 12/16/2023 023, 03/22/2022, 03/30/2021, Additional history exists CKD PHOS USE SMARTSET 92123 12/16/202312/01, 12/12/2021, 12/02/2019, Additional history exists DTaP,Tdap,and [...] as of this encounter Visit Diagnoses Diagnosis Paroxysmal atrial fibrillation (HCC)- Primary Atrial fibrillation documented in this encounter Care Teams Social Group Worker Relationship Specialty Start Date End Date Eldon Dowd MD [address] [place] [address] PCP - General Family Medicine 12/05/18 documented as of this encounter
--- OUTSIDE RECORDS SUMMARY | 2023-02-27 00:14 | External Medical Summary | Summary of Care ---
Author Name Unknown Organization [facility] Address [address] [facility] [place] [address] Phone [phone] Care Team Providers Care Wharf Hand Name Role Phone Eldon Dowd MD Primary Care Provider +1- [phone] Reason for Visit * Reason Comments Joint Pain Left shoulder * Evaluate & Treat - Unlimited Visits (Within 10 days (routine)) - Authorized Specialty Diagnoses / Procedures Referred By Urmila paniagua Referred To Contact Orthopaedic Surgery / Orthopedics Diagnoses Synovial cyst of shoulder Primary osteoarthritis, left shoulder Bette Ramirez MD [address] [place] [address] Referral ID Status Reason Start Date Expiration Date Visits Requested Visits Authorized [id number] Authorized Specialty Services Required 12/13/2022 12/14/2023 999 999 Encounter Details Date Type Department Care Team Description 01/10/2023 Office Visit Orthopaedics [facility] [address] [place] [address] Aaron Boss MD [address] [place] [phone] Synovial cyst of shoulder*; Olecranon bursitis of left elbow Allergies Active Allergy Reactions Severity Noted Date Comments Candesartan Cilexetil 01/04/2012 hyperkalemia Atenolol 08/21/2012 Pt was told not to take this again Other reaction(s): PT WAS TOLD NEVER TO TAKE AGAIN Candesartan High 06/13/2022 Other reaction(s): HYPERKALEMIA Lisinopril Other (Please comment) High 01/16/2014 Hypotension/ Increased creatinine Other reaction(s): INCREASED CREATININE/HYPOTENSION documented as of this encounter (statuses as of 01/10/2023) Medications Medication Sig Dispensed Refills Start Date [...] (PROVENTIL HFA) 108 (90 BASE) MCG/ACT inhalerIndications:B kingtis, complicated Use 2 puffs every 4-6hrs as [...] 24 Hour (Imdur)Indications:C oronary artery disease involving [place] coronary artery of [place] heart without angina pectoris,NSTEMI (non-ST elevated myocardial [...] as of this encounter (statuses as of 01/10/2023) Active Problems Problem Noted Date Protein-calorie malnutrition [...] as of this encounter (statuses as of 01/10/2023) Resolved Problems Problem Noted Date Resolved Date 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 Project # [id number], MUSIC EXECUTIVE: Basil Everett MD. CRC: GENE Whitney. SUMMARY: To test the hypothesis that Evacetrapib 130 mg, in comparison to placebo, reduces the risk of major adverse coronary events in high-risk vascular disease patients. CONTACTS: During normal business hours, contact study staff at ; after hours Pediatric Nurse Practitioner via the [facility] barrel dedenting machine operator [phone]. 24-hour Global Study Helpline: [phone]. Lipid levels should not be ordered/obtained while this subject is in the Accelerate study. Lipids are being managed in a blinded fashion. If lipid levels are inadvertently obtained, it is important that test results are NOT provided to the patient, study doctor, transport coordinator, or other study team members. Restricted meds while in the study: 1) niacin > 250 mg, 2) gemfibrozil with a potent [id number]. Hyperglycemia 02/18/2012 01/10/2017 NSTEMI (non-ST elevated myocardial [...] as of this encounter (statuses as of 01/10/2023) Immunizations Name Administration Dates Next Due COVID-19 [...] Progress Notes * Aaron Boss MD - 01/10/2023 12:03 PM EDT CHIEF COMPLAINT: Chief Complaint Patient presents with Joint Pain Left shoulder Impression: M71.319 Synovial cyst of shoulder (primary encounter diagnosis) M70.22 Olecranon bursitis of left elbow Plan: We discussed the diagnosis and treatment options with the patient today. At this time recommend thepatient continue with conservative management. We discussed non operative versus operative management with the patient today. At this time we recommend continued conservative management consisting of serial aspirations of theAC joint cyst. We discussed possible cortisone injection to the glenohumeral joint. We will refrain from injections at this time secondary to the elbow draining olecranon bursitis. Patient would benefit from home wound care. Follow Up: Return in about 2 weeks (around 01/24/2023) for Clinic Visit. | For: Clinic Visit. If hedoes not develop purulent drainage or erythema from the elbow he may benefit from antibiotics. There are no Patient Instructions on file [...] techinique applied. Skin sterilized with Hibiclens swab. The left shoulder cystic lesion above the AC joint was drained using an 18 gauge needle and multiple 10 mL syringes. Brawny viscous yellow fluid was removed from the cyst region. Once the aspiration was complete and the area was dressed with 4x4s and porous tape. Patient instructed to call or return to clinic for fever or warmth and redness at injection site for potential infection. Patient also advised as to potential for steroid flare reaction including increased pain and redness at injection site which should be treated with ice and resolve within 24 hours. After the shoulder procedure the left olecranon bursitis was dressed using 4x4s and Kerlex. HISTORY OF PRESENT ILLNESS: Teodoro Arceo is a 87 year old right hand dominant male who presents to orthopedic Sports Medicine for consultation at the request of Bette Ramirez MD to us with a history of left shoulder pain. Patient has been complaining of swelling over the top of the left shoulder. He was recently seen by Dr. Ramirez and underwent aspiration of the cystic lesion. Following the aspiration of the swelling did recur. Patient recently underwent an MRI scan which showed a AC joint cyst with communicationto the glenohumeral joint. Patient was referred to our office for evaluation and treatment management. He denies any significant pain. He does complain of crepitus with raising the arm. Of note patient has also been complaining of drainage from the left elbow region. He denies any fevers or chills or recent trauma. He has been using dressing and covering to the elbow region. Wakes at night? no. Physical Therapy? no. Injections? no. Nursing Notes: Shilpa Huddleston LPN 01/10/[address] Bette Ramirez for Left shoulder pain. Left shoulder MRI 01/06/23. Pt is RHD. Shilpa MEDINA Past Surgical History: Procedure Laterality Date COLONOSCOPY 05/08 repeat 2016 REVISION OF ULNAR NERVE AT ELBOW 05/08 [place]// left arm and right arm SACROILIAC JOINT INJECT W/GUIDANCE 12/04/2019 INJECTION SACROILIAC JOINT performed by Allan Persaud, DO at OR [facility] SACROILIAC JOINT INJECT W/GUIDANCE 05/31/2020 INJECTION SACROILIAC [...] at OR [facility] SIGMOIDOSCOPY, DIAGNOSTIC 09/02/98 diverticulosis Review of patient's allergies indicates: Allergen Reactions [...] for wheezing/shortness of breath 1 Inhaler 3 Sotalol HCl 80 MG Oral Tablet [...] mouth in the morning. 30 Tablet 5 No current facility-administered medications for this visit. 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 1-2 cups coffee per day Exercise Yes Comment: working Seat Belt No Social Determinants of Health Food Insecurity: No Food Insecurity Worried About Running Out of Food in the Last Year: Never true Ran Out of Food in the Last Year: Never true Family History Problem Relation Age of Onset Other (pneumonia) Father of pneumonia @ 81 Stroke Mother CVA/ DE @ 63 Heart Disorder Sister CABG Heart Disorder Sister rheumatic heart disease Heart Disorder Brother Neurological Disorder Sister CVA 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 X-rays of the left shoulder from 10/04/2022 show evidence ofproximal humeral head migration consistent with chronic rotator cuff tearing and arthropathy. Thereis evidence degeneration of the AC joint with hypertrophic changes. Patient has evidence of a soft tissue mass above the AC joint. No evidence of air in the soft tissues. MRI: Patient recently underwent an MRI scan of the left shoulder. The MRI scan shows evidence of a loculated cystic lesion to the superior shoulder. There is evidence of communication with the AC joint and the subacromial space. Patient has evidence of a chronic rotator cuff tear with rotator cuff arthropathy. PHYSICAL EXAM: General: generally well-nourished and in no acute distress HEENT: normocephalic, atraumatic, EOMI, sclera anicteric. Psych: mood and affect normal , cooperative Card: Peripheral pulses: normal in affected extremity (s) Resp: equal chest rise, non-tachypneic, non-labored breathing Skin: no rash, normal Neuro: Coordination: normal; Sensation: normal on affected extremity (s) Skin: normal. C-Spine evaluation: Does patient have neck symptoms and/or numbness/tingling in upper extremities: no Inspection: bilateral and symmetrical without apparent abnormality Shoulder ROM: There is crepitus in the left shoulder with range of motion ABD (170') - Bilateral and equal ER (40') - FROM Bilaterally Passive ER -FROM Bilaterally IR (T10) - right L5 left L5 FF (180') - FROM Bilaterally Scapular elevation with forward flexion:negativeBilateral Tenderness/Location: no Inspection AC Joint Prominence: positive with a large tense mass Cross-arm maneuver: positive Impingement sign: positive Sulcus sign: negative Lift-off test: negative Apprehension:negative Hampton's test: negative Load and shift: negative Speed's test: negative Drop-arm test: negative Instability Testing: Shoulder instability testing: normal bilaterally negative scapular winging negative scapular dyskinesis Strength: ABD: Right - 5/5 Left - 4/5 ER: Right - 5/5 Left - 4/5 IR: Right - 5/5 Left - 5/5 Biceps: Right - 5/5 Left - 4/5 "Empty can": Right - 5/5 Left -4/5 Neurovascular assessment: negative for deficit Neck ROM: Extension 10 Flexion chest Spurlings test: Right negative Left negative Lateral bending and rotation pain: right negative left negative TTP: negative Ligamentous laxity testing: negative Bilateral Evaluation of the left elbow. There is evidence of a punctate wound over the olecranon region. There is evidence of clear serous drainage from the elbow region. His range of motion 0 to full flexion without pain. There is no evidence of erythema. No evidence of purulence. Sensation is intact the ulnar, radial, median, axillary nerve distribution. Aaron Boss MD Orthopaedics [facility] [address] [place] [address] Orthopedic Sports Medicine Surgery 01/10/2023 12:03 PM This chart was completed in part utilizing [employer] Speech Voice Recognition Software. Grammatical errors, random [...] Nursing Notes * Shilpa Huddleston LPN - 01/10/2023 8:53 AM EDT Referred by Dr Bette Ramirez for Left shoulder pain. Left shoulder MRI 01/06/23. Pt is RHD. Shilpa MEDINA documented in this encounter Plan of Treatment Upcoming Encounters Date Type Specialty Care Team Description 01/19/2023 Office Visit Cardiology James Reyes PA-C [address] [place] [address] 01/24/2023 Office Visit Orthopedics Aaron Boss MD [address] [place] [phone] 02/15/2023 Office Visit Orthopedics Jeison Arteaga DO [address] [place] [address] 03/22/2023 Office Visit Family Medicine Eldon Dowd MD [address] [place] [address] 05/16/2023 Office Visit Hematology Oncology Patricia Conway MD [address] [place] [address] 07/06/2023 Office Visit Nephrology Lili Rodríguez MD [address] [place] [address] 07/31/2023 Office Visit Urology Andrea Antony MD [address] [facility] [address] [place] [phone] 10/11/2023 [facility] [address] [place] [address] Health Maintenance Due Date Last Done Comments DIABETES-EYE EXAM 04/25/2022 04/25/2021, , 12/30/2018 COVID-19 Vaccine ( season) 2022 01/16/2022, 07/18/2021, 02/14/2021, Additional history exists HbA1c 03/23/2023 09/21/2022, 05/31, 12/12/2021, Additional history exists CKD HGB USE SMARTSET 19676 09/15/202309/14, 05/16/2022, 05/16/2022, Additional history exists Depression Screening 10/10/2023 10/09/2022 Diabetic Foot Exam 10/10/2023 10/09/2022, 0 08/30/2021, 10/31/2019, Additional history exists Albumin/Creatinine Ratio 12/16/2023 023, 03/22/2022, 03/30/2021, Additional history exists CKD PHOS USE SMARTSET 04730 12/16/202312/01, 12/12/2021, 12/02/2019, Additional history exists DTaP,Tdap,and [...] Olecranon bursitis of left elbow Olecranon bursitis documented in this encounter Care Teams Wharf Hand Relationship Specialty Start Date End Date Eldon Dowd MD [address] [place], [place] [id number] PCP - General Family Medicine 12/05/18 documented as of this encounter
--- OUTSIDE RECORDS SUMMARY | 2023-02-27 00:14 | External Medical Summary | Summary of Care ---
Author Name Unknown Organization [facility] Address [address] [facility] [place] [address] Phone [phone] Care Team Providers Care Rehabilitation Nurse Name Role Phone Eldon Dowd MD Primary Care Provider +1- [phone] Reason for Referral * Evaluate & Treat [...] Aaron Boss MD [address] [place] [address] Referral ID Status Reason Start Date Expiration Date Visits Requested Visits Authorized [id number] Pending Review Specialty Services Required 3 999 999 Question Answer Referral Priority Within 3 days (urgent) Where should this appointment be scheduled? [facility] Comments Documentation of [facility] Encounter Addendum Patient Name: Teodoro Arceo I certify that this patient is under my care and that I, or a nurse practitioner or physician's assistant gm of content & delivery working with me, had a hcse-df-lepc encounter that meets the physician zpzl-kg-udyz encounter requirements with this patient on: 01/10/23 [...] effort and are for medical reasons or jehovah's witness services or infrequently or of short duration when for other reason) because: Inability to drive due to inflamed, draining bursa left elbow and shoulder. Physician Signature: Date of Signature: Physician Printed Name: Aaron Rome MD Encounter Details Date Type Department Care Team Description 01/10/2023 Telephone Orthopaedics [facility] [address] [address] Aaron Boss MD [address] [place] [phone] Allergies Active Allergy Reactions Severity Noted Date [...] 24 Hour (Imdur)Indications:C oronary artery disease involving [place] coronary artery of [place] heart without angina pectoris,NSTEMI (non-ST elevated myocardial [...] URI with cough 03/25/2014 09/01/2016 Accelerate Clinical Trial*[id number] 08/27/2012 08/27/2012 Accelerate Clinical Trial*[id number] 08/27/2012 03/29/2015 Overview: ACCELERATE STUDY. Project # [id number], INDUSTRIAL HYGIENE TECHNICIAN: Basil Everett MD. CRC: GENE Whitney. SUMMARY: To test the hypothesis that Evacetrapib 130 mg, in comparison to placebo, reduces the risk of major adverse coronary events in high-risk vascular disease patients. CONTACTS: During normal business hours, contact study staff at ; after hours Residential Fee Appraiser via the [facility] yeast culture operator [phone]. 24-hour Global Study Helpline: [phone]. Lipid levels should not be ordered/obtained while this subject is in the Accelerate study. Lipids are being managed in a blinded fashion. If lipid levels are inadvertently obtained, it is important that test results are NOT provided to the patient, study doctor, children's program coordinator, or other study team members. Restricted meds while in the study: 1) niacin > 250 mg, 2) gemfibrozil with a potent [id number]. Hyperglycemia 02/18/2012 01/10/2017 NSTEMI (non-ST elevated myocardial [...] encounter Miscellaneous Notes * Telephone Encounter - Shilpa Huddleston LPN - 01/10/2023 1:02 PM EDT Successfully faxed 9 pages of demographics, insurance info and today's office notes to [facility] .) 2-3 week dressing changes left shoulder and left elbow. Shilpa Díaz LPN documented in this encounter Plan of Treatment Upcoming Encounters Date Type Specialty Care Team Description 01/19/2023 Office Visit Cardiology James Reyes PA-C [address] [place] [address] 01/24/2023 Office Visit Orthopedics Aaron Boss MD [address] [place] [phone] 02/15/2023 Office Visit Orthopedics Jeison Arteaga DO [address] [place] [address] 03/22/2023 Office Visit Family Medicine Eldon Dowd MD [address] [place] [address] 05/16/2023 Office Visit Hematology Oncology Patricia Conway MD [address] [facility] [place] [address] 07/06/2023 Office Visit Nephrology Lili Rodríguez MD [address] [facility] [place] [address] 07/31/2023 Office Visit Urology Andrea Antony MD [address] [facility] [address] [place] [address] 10/11/2023 Nurse Only Nurse [facility] [address] [place] [address] Scheduled Referrals Name Type Priority Associated Diagnoses [...] Additional history exists CKD HGB USE SMARTSET 08215 09/15/202309/14, 05/16/2022, 05/16/2022, Additional history exists Depression Screening 10/10/2023 10/09/2022 Diabetic Foot Exam 10/10/2023 10/09/2022, 0 08/30/2021, 10/31/2019, Additional history exists Albumin/Creatinine Ratio 12/16/2023 023, 03/22/2022, 03/30/2021, Additional history exists CKD PHOS USE SMARTSET 18456 12/16/202312/01, 12/12/2021, 12/02/2019, Additional history exists DTaP,Tdap,and [...] (HCC) documented in this encounter Care Teams Rehabilitation Nurse Relationship Specialty Start Date End Date Eldon Dowd MD [address] [place] [address] PCP - General Family Medicine 12/05/18 documented as of this encounter
--- OUTSIDE RECORDS SUMMARY | 2023-02-27 00:14 | External Medical Summary | Summary of Care ---
Author Name Unknown Organization [facility] Address [address] [place] [address] Phone [phone] Care Team Providers Care Ticket Writer Name Role Phone Eldon Dowd MD Primary Care Provider +1- [phone] Reason for Visit * Reason Comments Medication Refill Encounter Details Date Type Department Care Team Description 09/16/2022 Refill Cardiology, [facility] 132 [facility] [place] [address] Eldon Dowd MD [address] [place], [place] [phone] Allergies Active Allergy Reactions Severity Noted Date Comments Candesartan Cilexetil 01/04/2012 hyperkalemia Atenolol 08/21/2012 Pt was told not to take this again Other reaction(s): PT WAS TOLD NEVER TO TAKE AGAIN Candesartan High 06/13/2022 Other reaction(s): HYPERKALEMIA Lisinopril Other (Please comment) High 01/16/2014 Hypotension/ Increased creatinine Other reaction(s): INCREASED CREATININE/HYPOTENSION documented as of this encounter (statuses as of 12/27/2022) Medications Medication Sig Dispensed Refills Start Date End Date Status CENTRUM PO TABS as directed 0 0 07/03/2008 Active ASPIRIN 81 MG PO CHEWIndications:O ther specified prophylactic or treatment measure One pill by mouth once a day with food 100 Tab 5 05/12/2010 Active COENZYME Q10 400 MG PO CAPSIndications:H igh triglycerides,Dys lipidemia, goal LDL below 100 1 CAPSULE DAILY 30 Cap 5 09/20/2011 Active Glucose Blood (ONETOUCH VERIO) STRP Use up to 1 times a day E11.9 100 Strip 3 05/23/2018 Active albuterol HFA (PROVENTIL HFA) 108 (90 BASE) MCG/ACT inhalerIndication s:Bronchitis, complicated Use 2 puffs every 4-6hrs as needed for wheezing/shortnes s of breath 1 Inhaler 3 09/06/2018 Active Sotalol HCl 80 MG Oral Tablet (Betapace) TAKE 1/2 TABLET BY MOUTH TWICE DAILY 90 Tablet 3 01/24/2022 3 Active linaGLIPtin 5 MG Oral Tablet (Tradjenta)Indica tions:Type 2 diabetes mellitus with hemoglobin A1c goal of less than 8.0% (HCC) Take 1 Tablet by mouth in the morning. 90 Tablet 3 04/04/2022 Active Empagliflozin 10 MG Oral Tablet (Jardiance) TAKE ONE TABLET BY MOUTH IN THE MORNING 30 Tablet 5 06/21/2022 4 Active Carvedilol 12.5 MG Oral Tablet (Coreg)Indication s:CAD (coronary artery disease),Paroxysm al atrial fibrillation (HCC) Take 1 Tablet by mouth in the morning and 1 Tablet before bedtime. 180 Tablet 3 08/25/2022 Active METRONIDAZOLE 0.75 % EX GELIndications:Ro sacea apply to affected area 45 g 11 05/18/2011 3 Discontinue d(Medicatio n List Clean Up) Isosorbide Mononitrate ER 60 MG Oral Tablet Extended Release 24 Hour (IMDUR)Indication s:Coronary artery disease involving [place] coronary artery of [place] heart without angina pectoris,NSTEMI (non-ST elevated myocardial infarction) (HCC) TAKE ONE TABLET BY MOUTH EVERY MORNING. 90 Tab 3 01/26/2020 3 Discontinue d(Refill) Atorvastatin Calcium 80 MG Oral Tablet (Lipitor)Indicati ons:Encounter for long-term (current) use of other medications TAKE ONE TABLET BY MOUTH DAILY 90 Tablet 3 12/07/2021 3 Discontinue d(Refill) predniSONE 5 MG Oral Tablet (Deltasone) TAKE 1 TO 3 TABLETS BY MOUTH DAILY 100 Tablet 5 11/17/2021 3 Discontinue d(Refill) glipiZIDE ER 2.5 MG Oral Tablet Extended Release 24 Hour (Glucotrol XL) Take 1 Tablet by mouth in the morning. 90 Tablet 3 03/22/2022 3 Discontinue d(End of Procedure) Eliquis 5 MG Oral Tablet (Apixaban)Indicat ions:Paroxysmal atrial fibrillation (HCC) TAKE 1 TABLET TWICE A DAY 180 Tablet 3 03/29/2022 3 Discontinue d(End of Procedure) Terazosin HCl 2 MG Oral CapsuleIndication s:HTN, goal below 150/90 TAKE ONE CAPSULE BY MOUTH AT BEDTIME 90 Capsule 1 04/12/2022 3 Discontinue d(Refill) Probiotic Daily Oral Capsule Take 1 Capsule by mouth in the morning. 0 3 Discontinue d(Patient preference/ discontinua tion) Loperamide HCl 2 MG Oral Capsule (Imodium) Take 1 Capsule by mouth 4 times a day as needed for Diarrhea. 0 3 Discontinue d(End of Procedure) Clinitest Rapid COVID-19 Test In Vitro Kit (COVID-19 At Home Antigen Test) use as directed 5 Kit 5 05/30/2022 3 Discontinue d(Medicatio n List Clean Up) Ferrous Sulfate 220 (44 Fe) MG/5ML Oral Elixir (Feosol) Take 325 mg (7.4 mL) orally daily in the morning 473 mL 0 07/11/2022 3 Discontinue d(End of Procedure) Pantoprazole Sodium 40 MG Oral Tablet Delayed Release (Protonix) Take 1 tablet (40 mg) by mouth twice a day for 30 days 60 Tablet 0 07/11/2022 3 Discontinue d(End of Procedure) Sucralfate 1 GM/10ML Oral Suspension (Carafate) Take 10ml (2 teaspoons) by mouth twice a day for 30 days 600 mL 0 07/11/2022 3 Discontinue d(End of Procedure) Bisacodyl 5 MG Oral Tablet Delayed Release (Dulcolax) take 1 tablet (5 mg) orally twice a day As Needed for constipation 25 Tablet 0 07/23/2022 3 Discontinue d(Medicatio n List Clean Up) Colace Clear 50 MG Oral Capsule (Docusate Sodium) 50 mg orally twice a day As Needed for constipation 60 Capsule 0 07/23/2022 3 Discontinue d(Medicatio n List Clean Up) Cephalexin 500 MG Oral Capsule (Keflex)Indicatio ns:Left leg cellulitis Take 1 Capsule by mouth in the morning and 1 Capsule at noon and 1 Capsule before bedtime. 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 Project # [id number], PATTERNMAKER PRESSURE CAST: Basil Everett MD. CRC: GENE Whitney. SUMMARY: To test the hypothesis that Evacetrapib 130 mg, in comparison to placebo, reduces the risk of major adverse coronary events in high-risk vascular disease patients. CONTACTS: During normal business hours, contact study staff at ; after hours Transportation Officer via the [facility] concrete saw operator [phone]. 24-hour Global Study Helpline: [phone]. Lipid levels should not be ordered/obtained while this subject is in the Accelerate study. Lipids are being managed in a blinded fashion. If lipid levels are inadvertently obtained, it is important that test results are NOT provided to the patient, study doctor, optometric coordinator, or other study team members. Restricted meds while in the study: 1) niacin > 250 mg, 2) gemfibrozil with a potent [id number]. Hyperglycemia 02/18/2012 01/10/2017 NSTEMI (non-ST elevated myocardial [...] as of this encounter (statuses as of 12/27/2022) Immunizations Name Administration Dates Next Due COVID-19 mRNA, LNP-s, No Pre serve, 2-Dose Series (Moderna) 06/04/2020,05/07/2020 COVID-19, mRNA, LNP-s, PF, B ooster, 100mcg/0.5mg (Moderna) 01/16/2022,07/18/2021,02/14/2021 Pneumococcal Conjugate Vacc, 13 Valent (Prevnar) 11/19/2014 Pneumococcal Polysaccharide PPV23 (Pneumovax) 02/17/2005,01/31/1998 Seasonal Influenza, PF, 6 mo ns & Above, IM , (Flulaval) 12/31/2019,01/02/2019,01/23/2018,01/10 Seasonal Influenza, Quadriva lent Hd (Fluzone [...] encounter Miscellaneous Notes * Telephone Encounter - Amita Armstrong CPhT - 09/18/2022 3:21 PM EDTNo prescriptions requested or ordered in this encounter documented in this encounter Plan of Treatment Upcoming Encounters Date Type Specialty Care Team Description 01/06/2023 Imaging Radiology 01/10/2023 Office Visit Orthopedics Aaron Boss MD [address] [place] [address] 01/10/2023 Nurse Only Nephrology Sp, Nurse Nephrology [address] [facility] [place] [address] 01/19/2023 Office Visit Cardiology James Reyes PA-C [address] [place] [address] 02/15/2023 Office Visit Orthopedics Jeison Arteaga DO [address] [place] [address] 03/22/2023 Office Visit Family Medicine Eldon Dowd MD [address] [place] [address] 05/16/2023 Office Visit Hematology Oncology Patricia Conway MD 200 [facility] [place] [address] 07/06/2023 Office Visit Nephrology Lili Rod[facility]uez MD [facility] [address] 07/31/2023 Office Visit Urology Andrea Antony MD [address] [facility] [place] [address] 10/11/2023 Nurse Only Ancillary [place], Nurse [facility] [address] [facility] [place] [id number] Health Maintenance Due Date Last Done Comments COVID-19 Vaccine (6 - Moderna series) 03/13/2022 01/16/2022, 07/18/2021, 02/14/2021, Additional history exists DIABETES-EYE EXAM 04/25/2022 04/25/2021, , 12/30/2018 HbA1c 03/23/2023 09/21/2022, 05/31, 12/12/2021, Additional history exists CKD HGB USE SMARTSET 08939 09/15/202309/14, 05/16/2022, 05/16/2022, Additional history exists Depression Screening 10/10/2023 10/09/2022 Diabetic Foot Exam 10/10/2023 10/09/2022, 0 08/30/2021, 10/31/2019, Additional history exists Albumin/Creatinine Ratio 12/16/2023 023, 03/22/2022, 03/30/2021, Additional history exists CKD PHOS USE SMARTSET 85349 12/16/202312/01, 12/12/2021, 12/02/2019, Additional history exists DTaP,Tdap,and [...] filedocumented as of this encounter Care Teams Ticket Writer Relationship Specialty Start Date End Date Eldon Dowd MD [address] [place] [address] PCP - General Family Medicine 12/05/18 documented as of this encounter
--- OUTSIDE RECORDS SUMMARY | 2023-02-27 00:14 | External Medical Summary | Summary of Care ---
Author Name Unknown Organization [facility] Address [address] [facility] [place] [address] Phone [phone] Care Team Providers Care Workplace Trainer And Assessor Name Role Phone Eldon Dowd MD Primary Care Provider +1- [phone] Encounter Details Date Type Department Care Team Description 12/27/2022 Orders Only Nephrology, Kamla Galaviz 200 [facility] [place] [address] Lili Rodríguez MD 200 [facility] [place] [address] Chronic kidney disease, stage 3a (HCC)*; Albuminuria Allergies Active Allergy Reactions Severity Noted Date [...] 24 Hour (Imdur)Indications:C oronary artery disease involving [place] coronary artery of [place] heart without angina pectoris,NSTEMI (non-ST elevated myocardial [...] URI with cough 03/25/2014 09/01/2016 Accelerate Clinical Trial*[id number] 08/27/2012 08/27/2012 Accelerate Clinical Trial*[id number] 08/27/2012 03/29/2015 Overview: ACCELERATE STUDY. Project # [id number], PHOTO INTERN: Basil Everett MD. CRC: GENE Whitney. SUMMARY: To test the hypothesis that Evacetrapib 130 mg, in comparison to placebo, reduces the risk of major adverse coronary events in high-risk vascular disease patients. CONTACTS: During normal business hours, contact study staff at ; after hours Tech Ed/Woodshop Teacher via the [facility] cnc laser operator [phone]. 24-hour Global Study Helpline: [phone]. Lipid levels should not be ordered/obtained while this subject is in the Accelerate study. Lipids are being managed in a blinded fashion. If lipid levels are inadvertently obtained, it is important that test results are NOT provided to the patient, study doctor, property coordinator, or other study team members. Restricted meds while in the study: 1) niacin > 250 mg, 2) gemfibrozil with a potent [id number]. Hyperglycemia 02/18/2012 01/10/2017 NSTEMI (non-ST elevated myocardial [...] Boss MD [address] [place] [phone] 01/10/2023 Nurse Only Nephrology Sp, Nurse Nephrology 200 [facility] [place] [address] 01/19/2023 Office Visit Cardiology James Reyes PA-C [address] [place] [address] 02/15/2023 Office Visit Orthopedics Jeison Arteaga DO [address] [place] [address] 03/22/2023 Office Visit Family Medicine Eldon Dowd MD [address] [place] [address] 05/16/2023 Office Visit Hematology Oncology Patricia Conway MD [facility] [place] [address] 07/06/2023 Office Visit Nephrology Lili Rodríguez MD [address] [place] [address] 07/31/2023 Office Visit Urology Andrea Antony MD [address] [place] [address] 10/11/2023 Nurse Only Ancillary [place], Nurse [facility] [address] [place] [address] Scheduled Orders Name Type Priority Associated Diagnoses Orde r Schedule BASIC METABOLIC PANEL Lab Routine Chronic kidney disease, stage 3a (HCC) Albuminuria Expected: 12/27/2022 (Approximate), Expires: 12/28/2023 Health Maintenance Due Date Last Done Comments COVID-19 Vaccine (6 - Moderna series) 03/13/2022 01/16/2022, 07/18/2021, 02/14/2021, Additional history exists DIABETES-EYE EXAM 04/25/2022 04/25/2021, , 12/30/2018 HbA1c 03/23/2023 09/21/2022, 05/31, 12/12/2021, Additional history exists CKD HGB USE SMARTSET 66607 09/15/202309/14, 05/16/2022, 05/16/2022, Additional history exists Depression Screening 10/10/2023 10/09/2022 Diabetic Foot Exam 10/10/2023 10/09/2022, 0 08/30/2021, 10/31/2019, Additional history exists Albumin/Creatinine Ratio 12/16/2023 023, 03/22/2022, 03/30/2021, Additional history exists CKD PHOS USE SMARTSET 71597 12/16/202312/01, 12/12/2021, 12/02/2019, Additional history exists DTaP,Tdap,and [...] as of this encounter Visit Diagnoses Diagnosis Chronic kidney disease, stage 3a (HCC)- Primary Albuminuria Proteinuria documented in this encounter Care Teams Workplace Trainer And Assessor Relationship Specialty Start Date End Date Eldon Dowd MD [address] [place], [place] [phone] PCP - General Family Medicine 12/05/18 documented as of this encounter
--- OUTSIDE RECORDS SUMMARY | 2023-02-27 00:14 | External Medical Summary | Summary of Care ---
Author Name Unknown Organization [facility] Address [address] [place] [address] Phone [phone] Care Team Providers Care Grade Tamper Name Role Phone Eldon Dowd MD Primary Care Provider +1- [phone] Reason for Visit * Reason Comments Blood Pressure Check Encounter Details Date Type Department Care Team Description 01/10/2023 Nurse Only Nephrology, [facility] 200 [facility] [place] [address] Sp, Nurse Nephrology [address] [place] [address] Blood Pressure Check Allergies Active Allergy Reactions Severity Noted Date [...] 24 Hour (Imdur)Indications:C oronary artery disease involving [place] coronary artery of [place] heart without angina pectoris,NSTEMI (non-ST elevated myocardial [...] URI with cough 03/25/2014 09/01/2016 Accelerate Clinical Trial*[id number] 08/27/2012 08/27/2012 Accelerate Clinical Trial*[id number] 08/27/2012 03/29/2015 Overview: ACCELERATE STUDY. Project # [id number], AIRCRAFT SEAT UPHOLSTERER: Basil Everett MD. CRC: EGNE Whitney. SUMMARY: To test the hypothesis that Evacetrapib 130 mg, in comparison to placebo, reduces the risk of major adverse coronary events in high-risk vascular disease patients. CONTACTS: During normal business hours, contact study staff at ; after hours Data Warehouse Developer via the [facility] measurement operator [phone]. 24-hour Global Study Helpline: [phone]. Lipid levels should not be ordered/obtained while this subject is in the Accelerate study. Lipids are being managed in a blinded fashion. If lipid levels are inadvertently obtained, it is important that test results are NOT provided to the patient, study doctor, department coordinator, or other study team members. Restricted meds while in the study: 1) niacin > 250 mg, 2) gemfibrozil with a potent [id number]. Hyperglycemia 02/18/2012 01/10/2017 NSTEMI (non-ST elevated myocardial [...] Passive Smoke Exposure: Never Smokeless Tobacco: Never Tobacco Cessation:Counseling Given: Not Answered Alcohol Use Standard Drinks/Week Comments No 0 [...] Sign Reading Time Taken Comments Blood Pressure 143/60 01/10/2023 10:55 AM EDT Pulse 69 01/10/2023 10:55 AM EDT Temperature - - Respiratory Rate - - Oxygen Saturation - - Inhaled Oxygen Concentration - - Weight - - Height - - Body Mass Index - - documented in this encounter Nursing Notes * Paty Zarco RN - 01/10/2023 10:57 AM EDT Here for blood pressure cuff validation though he did not bring home cuff today. Will place order to [facility]. documented in this encounter Plan of Treatment Upcoming Encounters Date Type Specialty Care Team Description 01/19/2023 Office Visit Cardiology James Reyes PA-C [address] [place] [address] 01/24/2023 Office Visit Orthopedics Aaron Boss MD [address] [place] [phone] 02/15/2023 Office Visit Orthopedics Jeison Arteaga DO [address] [place] [address] 03/22/2023 Office Visit Family Medicine Eldon Dowd MD [address] [place], [place] [phone] 05/16/2023 Office Visit Hematology Oncology Patricia Conway MD [address] [place] [address] 07/06/2023 Office Visit Nephrology Lili Rodríguez MD 200 [facility] [place] [address] 07/31/2023 Office Visit Urology Andrea Antony MD [address] [place] [address] 10/11/2023 Nurse Only [facility] Nurse [place] [facility] [address] [facility] [address] Health Maintenance Due Date Last Done Comments DIABETES-EYE EXAM 04/25/2022 04/25/2021, , 12/30/2018 COVID-19 Vaccine ( season) 2022 01/16/2022, 07/18/2021, 02/14/2021, Additional history exists HbA1c 03/23/2023 09/21/2022, 05/31, 12/12/2021, Additional history exists CKD HGB USE SMARTSET 05744 09/15/202309/14, 05/16/2022, 05/16/2022, Additional history exists Depression Screening 10/10/2023 10/09/2022 Diabetic Foot Exam 10/10/2023 10/09/2022, 0 08/30/2021, 10/31/2019, Additional history exists Albumin/Creatinine Ratio 12/16/2023 023, 03/22/2022, 03/30/2021, Additional history exists CKD PHOS USE SMARTSET 07511 12/16/202312/01, 12/12/2021, 12/02/2019, Additional history exists DTaP,Tdap,and [...] as of this encounter Visit Diagnoses Diagnosis Hypertensive kidney disease with stage 3a chronic kidney disease- Primary documented in this encounter Care Teams Grade Tamper Relationship Specialty Start Date End Date Eldon Dowd MD [address] [place], [place] [phone] PCP - General Family Medicine 12/05/18 documented as of this encounter
--- OUTSIDE RECORDS SUMMARY | 2023-02-27 00:14 | External Medical Summary | Summary of Care ---
Author Name Unknown Organization [facility] Address [address] [place] [address] Phone [phone] Care Team Providers Care Harp Maker Name Role Phone Kinjal Hernández MD Primary Care Provider +1- [phone] Reason for Visit * Reason Comments Medication Refill Encounter Details Date Type Department Care Team (Late st Contact Info) Description 01/21/2023 Refill [facility] [address] [place] [address] Kinjal Hernández MD [address] [place] [address] Allergies Active Allergy Reactions Criticality Noted Date [...] 24 Hour (Imdur)Indications :Coronary artery disease involving [place] coronary artery of [place]oshone[place]bann[place] heart without angina pectoris,NSTEMI (non-ST elevated myocardial [...] the morning. 135 Tablet 3 01/19/2023 Active Empagliflozin 10 MG Oral Tablet (Jardiance) TAKE ONE TABLET BY MOUTH IN THE MORNING 30 Tablet 5 01/22/2023 01/22/2024 Active Empagliflozin 10 MG Oral [...] URI with cough 03/25/2014 017 Accelerate Clinical Trial*[id number] 08/27/2012 08/27/2012 Accelerate Clinical Trial*[id number] 08/27/2012 03/29/2015 Overview: ACCELERATE STUDY. Project # [id number], NURSE FIRST AID: Basil Everett MD. CRC: GENE Whitney. SUMMARY: To test the hypothesis that Evacetrapib 130 mg, in comparison to placebo, reduces the risk of major adverse coronary events in high-risk vascular disease patients. CONTACTS: During normal business hours, contact study staff at ; after hours Nurse College via the [facility] hospital wood lathe operator [phone]. 24-hour Global Study Helpline: [phone]. Lipid levels should not be ordered/obtained while this subject is in the Accelerate study. Lipids are being managed in a blinded fashion. If lipid levels are inadvertently obtained, it is important that test results are NOT provided to the patient, study doctor, study director, or other study team members. Restricted meds while in the study: 1) niacin > 250 mg, 2) gemfibrozil with a potent [id number]. Hyperglycemia 02/18/2012 01/10/2017 NSTEMI (non-ST elevated myoc [...] encounter Miscellaneous Notes * Telephone Encounter - Heena Romano [facility] - 01/22/2023 10:34 AM EDTSigned Prescriptions: Disp Refills Empagliflozin 10 MG Oral Tablet (Jardiance)30 Tab*5 Sig: TAKE ONE TABLET BY MOUTH IN THE MORNING Authorizing Provider: KINJAL HERNÁNDEZ Ordering User: HEENA ROMANO * Telephone Encounter - Carmenza Kerr [facility] - 01/22/2023 8:36 AM EDT Pending Prescriptions: Disp Refills Empagliflozin 10 MG Oral Tablet (Jardiance)30 Tab*5 Sig: TAKE ONE TABLET BY MOUTH IN THE MORNING documented in this encounter Plan of Treatment Upcoming Encounters Date Type Department Care Team (Late st Contact Info) Description 01/24/2023 8:45 AM EDT Office Visit Orthopaedics [facility] [address] [place] [address] Aaron Boss MD [address] [place] [phone] 02/15/2023 10:00 AM EST Office Visit Orthopaedics [facility] [address] [place] [address] Jeison Arteaga DO [address] [place] [address] 03/22/2023 8:00 AM EST Office Visit [facility] [address] [place] [phone] Kinjal Hernández MD [address] [place] [address] 05/16/2023 11:00 AM EST Office Visit Hematology/Oncology [facility] [address] [place] [address] Patricia Conway MD [address] [place] [address] 06/11/2023 8:00 AM EDT Office Visit Cardiology, [facility] [address] [place] [address] James Reyes PA-C [address] [place] [address] 07/06/2023 10:00 AM EDT Office Visit Nephrology, [facility] [address] [place] [address] Lili Rodríguez MD [address] [place] [address] 07/31/2023 8:00 AM EDT Office Visit Urology, [facility] [address] [place] [address] Andrea Antony MD [address] [place] [id number] 10/11/2023 10:00 AM EDT Nurse Only [facility]illary [facility], [facility] [address] [facility] [address] [facility], [facility] [address] [facility] [place] [phone] Health Maintenance Due Date Last Done Comments Hepatitis B (1 of 3 - Risk 3-dose series) 1994 DIABETES-EYE EXAM 04/25/2022 04/25/2021, , 12/30/2018 COVID-19 Vaccine ( season) 2022 01/16/2022, 07/18/2021, 02/14/2021, Additional history exists HbA1c 03/23/2023 09/21/2022, 05/31, 12/12/2021, Additional history exists CKD HGB USE SMARTSET 77698 09/15/202309/14, 05/16/2022, 05/16/2022, Additional history exists Depression Screening 10/10/2023 10/09/2022 Diabetic Foot Exam 10/10/2023 10/09/2022, 0 08/30/2021, 10/31/2019, Additional history exists Albumin/Creatinine Ratio 12/16/2023 023, 03/22/2022, 03/30/2021, Additional history exists CKD PHOS USE SMARTSET 29192 12/16/202312/01, 12/12/2021, 12/02/2019, Additional history exists DTaP,Tdap,and [...] filedocumented as of this encounter Care Teams Harp Maker Relationship Specialty Start Date End Date Kinjal Hernández MD [address] [place] [address] PCP - General Family Medicine 12/05/18 documented as of this encounter
--- OUTSIDE RECORDS SUMMARY | 2023-02-27 00:14 | External Medical Summary | Summary of Care ---
Author Name Unknown Organization [facility] Address [address] [place] [facility] [place] [address] Phone [phone] Care Team Providers Care Voip Network Engineer Name Role Phone Eldon Dowd MD Primary Care Provider [phone]- [phone] Reason for Visit * Reason Comments Blood Pressure Check Encounter Details Date Type Department Care Team Description 01/10/2023 Nurse Only Nephrology, [facility] [address] [place] [address] Sp, Nurse Nephrology [address] [place] [address] Blood Pressure Check Allergies Active Allergy Reactions Severity Noted Date Comments Candesartan Cilexetil 01/04/2012 hyperkalemia Atenolol 08/21/2012 Pt was told not to take this again Other reaction(s): PT WAS TOLD NEVER TO TAKE AGAIN Candesartan High 06/13/2022 Other reaction(s): HYPERKALEMIA Lisinopril Other (Please comment) High 01/16/2014 Hypotension/ Increased creatinine Other reaction(s): INCREASED CREATININE/HYPOTENSION documented as of this encounter (statuses as of 01/11/2023) Medications Medication Sig Dispensed Refills Start Date [...] 24 Hour (Imdur)Indications: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,NSTEMI (non-ST elevated myocardial [...] as of this encounter (statuses as of 01/11/2023) Active Problems Problem Noted Date Protein-calorie malnutrition [...] as of this encounter (statuses as of 01/11/2023) Resolved Problems Problem Noted Date Resolved Date 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 Project # [id number], UX INFORMATION ARCHITECT: Basil Everett MD. CRC: GENE Whitney. SUMMARY: To test the hypothesis that Evacetrapib 130 mg, in comparison to placebo, reduces the risk of major adverse coronary events in high-risk vascular disease patients. CONTACTS: During normal business hours, contact study staff at ; after hours Machine Former via the [facility] hospital screen printing press operator [phone]. 24-hour Global Study Helpline: [phone]. Lipid levels should not be ordered/obtained while this subject is in the Accelerate study. Lipids are being managed in a blinded fashion. If lipid levels are inadvertently obtained, it is important that test results are NOT provided to the patient, study doctor, injury prevention coordinator, or other study team members. Restricted meds while in the study: 1) niacin > 250 mg, 2) gemfibrozil with a potent [id number]. Hyperglycemia 02/18/2012 01/10/2017 NSTEMI (non-ST elevated myocardial [...] Per Lipid Taxonomy. DIVERTICULOSIS OF COLON 01/17/20 documented as of this encounter (statuses as of 01/11/2023) Immunizations Name Administration Dates Next Due COVID-19 [...] Index - - documented in this encounter Progress Notes * TR Haro - 01/11/2023 1:46 PM EDT Teodoro Arceo is a 87 year old male Chief Complaint Patient presents with Blood Pressure Check documented in this encounter Nursing Notes * Paty Zarco RN - 01/10/2023 10:57 AM EDT Here for blood pressure cuff validation though he did not bring home cuff today. Will place order to [facility]. documented in this encounter Plan of Treatment Upcoming Encounters Date Type Specialty Care Team Description 01/19/2023 Office Visit Cardiology James Reyes PA-C [address] [place] [address] 01/24/2023 Office Visit Orthopedics Aaron Boss MD [address] [place] [address] 02/15/2023 Office Visit Orthopedics Jeison Arteaga DO [address] [place] [address] 03/22/2023 Office Visit Family Medicine Eldon Dowd MD [address] [place] [address] 05/16/2023 Office Visit Hematology Oncology Patricia Conway MD [address] [place] [address] 07/06/2023 Office Visit Nephrology Llii Rodríguez MD [address] [place] [address] 07/31/2023 Office Visit Urology Andrea Antony MD [address] [facility] [address] [place] [address] 10/11/2023 [facility] [address] [place] [address] Health Maintenance Due Date Last Done Comments DIABETES-EYE EXAM 04/25/2022 04/25/2021, , 12/30/2018 COVID-19 Vaccine ( season) 2022 01/16/2022, 07/18/2021, 02/14/2021, Additional history exists HbA1c 03/23/2023 09/21/2022, 0308/2022, 12/12/2021, Additional history exists CKD HGB USE SMARTSET 95368 09/15/202309/14, 05/16/2022, 05/16/2022, Additional history exists Depression Screening 10/10/2023 10/09/2022 Diabetic Foot Exam 10/10/2023 10/09/2022, 0 08/30/2021, 10/31/2019, Additional history exists Albumin/Creatinine Ratio 12/16/20232 023, 03/22/2022, 03/30/2021, Additional history exists CKD PHOS USE SMARTSET 56676 12/16/202312/01, 12/12/2021, 12/02/2019, Additional history exists DTaP,Tdap,and [...] Primary documented in this encounter Care Teams Voip Network Engineer Relationship Specialty Start Date End Date Eldon Dowd MD [address], [place] [phone] PCP - General Family Medicine 12/05/18 documented as of this encounter
--- OUTSIDE RECORDS SUMMARY | 2023-02-27 00:14 | External Medical Summary | Summary of Care ---
Author Name Unknown Organization [facility] Address [address] [facility] [place] [address] Phone [phone] Care Team Providers Care Optics Technical Officer Name Role Phone Eldon Dowd MD Primary Care Provider +1- [phone] Reason for Visit * Reason Comments Joint Pain Left shoulder * Evaluate & Treat - Unlimited Visits (Within 10 days (routine)) - Authorized Specialty Diagnoses / Procedures Referred By Urmila paniagua Referred To Contact Orthopaedic Surgery / Orthopedics Diagnoses Synovial cyst of shoulder Primary osteoarthritis, left shoulder Bette Ramirez MD [address] [place] [address] Referral ID Status Reason Start Date Expiration Date Visits Requested Visits Authorized [id number] Authorized Specialty Services Required 12/13/2022 12/14/[phone] Encounter Details Date Type Department Care Team Description 01/10/2023 Office Visit Orthopaedics [facility] [address] [place] [address] Aaron Boss MD [address] [place] [phone] Synovial cyst of shoulder*; Olecranon bursitis of [...] 24 Hour (Imdur)Indications: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 Project # [id number], IT PROGRAM MANAGER: Basil Everett MD. CRC: GENE Whitney. SUMMARY: To test the hypothesis that Evacetrapib 130 mg, in comparison to placebo, reduces the risk of major adverse coronary events in high-risk vascular disease patients. CONTACTS: During normal business hours, contact study staff at ; after hours Quality Control Expert via the [facility] hospital vertical mill operator [phone]. 24-hour Global Study Helpline: [phone]. Lipid levels should not be ordered/obtained while this subject is in the Accelerate study. Lipids are being managed in a blinded fashion. If lipid levels are inadvertently obtained, it is important that test results are NOT provided to the patient, study doctor, economic development coordinator, or other study team members. Restricted meds while in the study: 1) niacin > 250 mg, 2) gemfibrozil with a potent [id number]. Hyperglycemia 02/18/2012 01/10/2017 NSTEMI (non-ST elevated myocardial [...] performed by Allan Persaud, DO at OR [facility] SACROILIAC JOINT INJECT W/GUIDANCE 05/31/2020 INJECTION SACROILIAC [...] of pneumonia @ 80 Stroke Mother CVA/ [place] @ 63 Heart Disorder Sister CABG Heart [...] Sulcus sign: negative Lift-off test: negative Apprehension:negative [place]'s test: negative Load and shift: negative Speed's [...] axillary nerve distribution. Aaron Boss MD Orthopaedics [facility] [address] [place] [address] Orthopedic Sports Medicine Surgery 01/10/2023 12:03 PM This chart was completed in part utilizing [employer] Speech Voice Recognition Software. Grammatical errors, random [...] Reyes PA-C [address] [place] [address] 01/24/2023 Office Visit Orthopedics Aaron Boss MD [address] [place] [phone] 02/15/2023 Office Visit Orthopedics Jeison Arteaga DO [address] [place] [address] 03/22/2023 Office Visit Family Medicine Eldon Dowd MD [address] [place] [address] 05/16/2023 Office Visit Hematology Oncology Patricia Conway MD [address] [place] [address] 07/06/2023 Office Visit Nephrology Lili Rodrgíuez MD [address] [place] [address] 07/31/2023 Office Visit Urology Andrea Antony MD [address] [facility] [address] [place] [phone] 10/11/2023 [facility] [address] [place] [address] Health Maintenance Due Date Last Done Comments DIABETES-EYE EXAM 04/25/2022 04/25/2021, , 12/30/2018 COVID-19 Vaccine ( season) 2022 01/16/2022, 07/18/2021, 02/14/2021, Additional history exists HbA1c 03/23/2023 09/21/2022, 05/31, 12/12/2021, Additional history exists CKD HGB USE SMARTSET 37409 09/15/202309/14, 05/16/2022, 05/16/2022, Additional history exists Depression Screening 10/10/2023 10/09/2022 Diabetic Foot Exam 10/10/2023 10/09/2022, 0 08/30/2021, 10/31/2019, Additional history exists Albumin/Creatinine Ratio 12/16/2023 023, 03/22/2022, 03/30/2021, Additional history exists CKD PHOS USE SMARTSET 54788 12/16/202312/01, 12/12/2021, 12/02/2019, Additional history exists DTaP,Tdap,and [...] bursitis documented in this encounter Care Teams Optics Technical Officer Relationship Specialty Start Date End Date Eldon Dowd MD [address] [place], [place] [phone] PCP - General Family Medicine 12/05/18 documented as of this encounter
--- OUTSIDE RECORDS SUMMARY | 2023-02-27 00:15 | External Medical Summary | Summary of Care ---
Author Name Unknown Organization [facility] Address [address] [facility] [place] [address] Phone [phone] Care Team Providers Care Emulsion Operator Name Role Phone Eldon Dowd MD Primary Care Provider [phone]- [phone] Reason for Visit * Reason Comments Follow Up Bilateral knee Encounter Details Date Type Department Care Team Description 11/16/2022 Office Visit Orthopaedics [facility] [address] [place] [address] Jeison Arteaga DO [address] [place] [address] Primary osteoarthritis of both knees* Allergies Active Allergy Reactions Severity Noted Date Comments Candesartan Cilexetil 01/04/2012 hyperkalemia Atenolol 08/21/2012 Pt was told not to take this again Other reaction(s): PT WAS TOLD NEVER TO TAKE AGAIN Candesartan High 06/13/2022 Other reaction(s): HYPERKALEMIA Lisinopril Other (Please comment) High 01/16/2014 Hypotension/ Increased creatinine Other reaction(s): INCREASED CREATININE/HYPOTENSION documented as of this encounter (statuses as of 11/16/2022) Medications Medication Sig Dispensed Refills Start Date [...] 24 Hour (Imdur)Indications:C oronary artery disease involving chitina coronary artery of chitina heart without angina pectoris,NSTEMI (non-ST elevated myocardial infarction) (HCC) TAKE ONE TABLET BY MOUTH EVERY MORNING. 90 Tablet 3 10/11/2022 Active predniSONE 5 MG Oral Tablet (Deltasone) TAKE 1 TO 3 TABLETS BY MOUTH DAILY 100 Tablet 5 10/16/2022 10/16/2023 Active Cephalexin 500 MG Oral Capsule (Keflex)Indications: Left leg cellulitis Take 1 Capsule by mouth in the morning and 1 Capsule at noon and 1 Capsule before bedtime. 21 Capsule 0 10/20/2022 Active Sulfamethoxazole-Tri methoprim 400-80 MG Oral Tablet (Bactrim) Take 1 Tablet by mouth in the morning and 1 Tablet before bedtime. 14 Tablet 0 11/03/2022 Active Atorvastatin Calcium 80 MG Oral Tablet (Lipitor)Indications :Encounter for long-term (current) use of other medications TAKE ONE TABLET BY MOUTH DAILY 90 Tablet 1 11/15/2022 11/15/2023 Active Hospital, Clinic, or Other Facility Administered Medication Ordered Dose Route Frequency Start Date End Date Status lidocaine 1% 1 mL - triamcinolone acetonide 40 mg/mL 1 mL inj 2 mLIndications:Primary osteoarthritis of both knees 2 mL IJ ONCE 11/16/2022 11/16/2022 Ended lidocaine 1% 1 mL - triamcinolone acetonide 40 mg/mL 1 mL inj 2 mLIndications:Primary osteoarthritis of both knees 2 mL IJ ONCE 11/16/2022 11/16/2022 Ended documented as of this encounter (statuses as of 11/16/2022) Active Problems Problem Noted Date 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 Project # [id number], TURN SEWER: Basil Everett MD. CRC: GENE Whitney. SUMMARY: To test the hypothesis that Evacetrapib 130 mg, in comparison to placebo, reduces the risk of major adverse coronary events in high-risk vascular disease patients. CONTACTS: During normal business hours, contact study staff at ; after hours Doorperson Or Luggage Porter via the [facility] hospital wireless operator [phone]. 24-hour Global Study Helpline: [phone]. Lipid levels should not be ordered/obtained while this subject is in the Accelerate study. Lipids are being managed in a blinded fashion. If lipid levels are inadvertently obtained, it is important that test results are NOT provided to the patient, study doctor, acute coordinator, or other study team members. Restricted meds while in the study: 1) niacin > 250 mg, 2) gemfibrozil with a potent [id number]. Hyperglycemia 02/18/2012 01/10/2017 NSTEMI (non-ST elevated myocardial [...] as of this encounter (statuses as of 11/16/2022) Immunizations Name Administration Dates Next Due COVID-19 mRNA, LNP-s, No Pre serve, 2-Dose Series (Moderna) 06/04/2020,05/07/2020 Covid-19 Mrna, Lnp-s, No Pre serve, Booster (Moderna) 01/16/2022,07/18/2021,02/14/2021 Pneumococcal Conjugate Vacc, 13 Valent (Prevnar) 11/19/2014 Pneumococcal Polysaccharide PPV23 (Pneumovax) 02/17/2005,01/31/1998 Seasonal Influenza, Quadriva lent Hd (Fluzone Hd) 01/04/2022,12/28/2020 Seasonal Influenza, Quadriva lent, No Preserve, 6 Mons & Above, IM 12/31/2019,01/02/2019,01/23/2018,01/10 Seasonal Influenza, Quadriva lent, No Preserve, IM [...] this encounter Progress Notes * Jeison Arteaga, DO - 11/16/2022 9:39 AM EDT ORTHOPAEDIC SURGERY - Clinic Note/Injection SUBJECTIVE: Teodoro Arceo is a 87 year old male. Chief Complaint Patient presents with Follow Up Bilateral knee HPI: He presents today for repeat bilateral knee injections. He reported good improvement followingprevious injections. His right knee is more symptomatic. Review of patient's allergies indicates: Allergen Reactions [...] TABLETS BY MOUTH DAILY 100 Tablet 5 Cephalexin 500 MG Oral Capsule (Keflex) Take 1 Capsule by mouth in the morning and 1 Capsule at noon and 1 Capsule before bedtime. 21 Capsule 0 Sulfamethoxazole-Trimethoprim 400-80 MG Oral Tablet (Bactrim) Take 1 Tablet by mouth in the morningand 1 Tablet before bedtime. 14 Tablet 0 Atorvastatin Calcium 80 MG Oral Tablet (Lipitor) TAKE ONE TABLET BY MOUTH DAILY 90 Tablet 1 Current Facility-Administered Medications Medication Dose Route Frequency Provider Last Rate Last Admin lidocaine 1% 1 mL - triamcinolone acetonide 40 mg/mL 1 mL inj 2 mL 2 mL Injection Once Jeison Arteaga, lidocaine 1% 1 mL - triamcinolone acetonide 40 mg/mL 1 mL inj 2 mL 2 mL Injection Once Jeison Arteaga, DO ASSESSMENT: Primary osteoarthritis of both knees (Primary) - ARTHROCENT ASP &/OR INJ MAJOR JX/BURSA W/O US - lidocaine 1% 1 mL - triamcinolone acetonide 40 mg/mL 1 mL inj 2 mL - lidocaine 1% 1 mL - triamcinolone acetonide 40 mg/mL 1 mL inj 2 mL Follow Up: Return in about 3 months (around 02/16/2023). PLAN: We discussed repeat corticosteroid injections today. He was in agreement. These [...] This chart was completed in part utilizing [employer]Cha Speech Voice Recognition Software. Grammatical errors, random word insertions, pronoun errors, and incomplete sentences are an occasional consequence of this system due to software limitations, ambient noise, and hardware issues. Any formal questions or concerns about the content, text, or information contained within the body of this dictation should be directly addressed to the provider for clarification. Jeison Arteaga DO 11/16/2022 9:39 AM documented in this encounter Nursing Notes * JEFFREY Austin - 11/16/2022 9:26 AM EDT Pt presents today for bilateral knee injections. Pt states he has no pain in his knee. documented in this encounter Plan of Treatment Upcoming Encounters Date Type Specialty Care Team Description 12/13/2022 Office Visit Orthopedics Bette Ramirez MD [address] [place] [address] 12/15/2022 Office Visit Nephrology Lili Rodríguez MD [address] [facility] [place] [address] 01/19/2023 Office Visit Cardiology James Reyes PA-C [address] [place] [address] 02/15/2023 Office Visit Orthopedics Jeison Arteaga DO [address] [facility] [place] [address] 03/22/2023 Office Visit Family Medicine Eldon Dowd MD [address] [place] [address] 05/16/2023 Office Visit Hematology Oncology Patricia Conway MD [address] [place] [address] 10/11/2023 [facility] [address] [place] [address] Scheduled Orders Name Type Priority Associated Diagnoses Orde r Schedule ARTHROCENT ASP &/OR INJ MAJOR JX/BURSA W/O US Procedures Routine Primary osteoarthritis of both knees Ordered: 11/16/2022 Health Maintenance Due Date Last Done Comments COVID-19 Vaccine (6 - Moderna series) 03/13/2022 01/16/2022, 07/18/2021, 02/14/2021, Additional history exists DIABETES-EYE EXAM 04/25/2022 04/25/2021, , 12/30/2018 Influenza Vaccine (FLU shot) (#1) 2022 01/04/2022, 12/28/2020, 12/31/2019, Additional history exists CKD PHOS USE SMARTSET 07486 12/12/202212/01, 12/02/2019, 02/18/2019, Additional history exists Albumin/Creatinine Ratio 03/22/2023 022, 03/30/2021, 12/02/2019, Additional history exists HbA1c 03/23/2023 09/21/2022, 05/31, 12/12/2021, Additional history exists CKD HGB USE SMARTSET 20800 09/15/202309/14, 05/16/2022, 05/16/2022, Additional history exists DIABETES-FOOT EXAM 10/10/2023 10/09/2022, 0 08/30/2021, 10/31/2019, Additional history exists Depression Screening, Annual for Pts 12 and Over 10/10/2023 10/09/2022 DTaP,Tdap,and Td Vaccines (2 - Td or Tdap) 05/24/2025 05/24/2015, 03/14/2006, 05/03/1993 Pneumococcal Vaccine: 65+ Years Completed 11/19/2014, 02/17/2005, 01/31/1998 Zoster Vaccines Completed 07/12/2021, 05/2018, 01/06/2011 GARDASIL-HPV IMMUNIZATION SERIES Aged Out No longer [...] 2 mL 2 mL, Injection, ONCE, On [facility] 11/16/22 at 1015, For 1 dose, Lidocaine 1% 1mL Triamcinolone Acetonide 40 mg/mL 1 mL (Final concentration = 20 mg/mL) REFRIGERATE and SHAKE WELL Given 11/16/2022 9:41 AM EDT 2 mL Knee Left lidocaine 1% 1 mL - triamcinolone acetonide 40 mg/mL 1 mL inj 2 mL 2 mL, Injection, ONCE, On [facility] 11/16/22 at 1015, For 1 dose, Lidocaine 1% 1mL Triamcinolone Acetonide 40 mg/mL 1 mL (Final concentration = 20 mg/mL) REFRIGERATE and SHAKE WELL Given 11/16/2022 9:41 AM EDT 2 mL Knee Right documented in this encounter Care Teams Emulsion Operator Relationship Specialty Start Date End Date Eldon Dowd MD [address] [place] [address] PCP - General Family Medicine 12/05/18 documented as of this encounter
--- OUTSIDE RECORDS SUMMARY | 2023-02-27 00:15 | External Medical Summary ---
Author Name Unknown Address Unknown Organization K01:[facility] [place] - [address] [place] [address] Laboratory Report Ordering Provider Test Date Status JAD VELAZQUEZ 12/15/2022 10:57:10 Final Normal: <30 mg/g creatinine< br/>High: 30-300 mg/g creatinine
Very High: >300 mg/g creatinine
Nephrotic: >2200 mg/g creatinine Observation Date Value Abnormality Reference (Units ) Status Albumin, Urine 12/15/2022 10:57:10 4.54 (mg/dL) Final Creatinine, Urine 12/15/2022 10:57:10 55 (mg/dL) Final Albumin/Creatinine [Mass Ratio] in Urine 12/15/2022 10:57:10 83 Above high normal <30 (mg/g Creat) Final Performing Location [facility] [place] - [facility] [address]
--- OUTSIDE RECORDS SUMMARY | 2023-02-27 00:15 | External Medical Summary ---
Author Name Unknown Address Unknown Organization K01:[facility] [place] [address] [place] [address] Laboratory Report Ordering Provider Test Date Status JAD VELAZQUEZ 12/15/2022 10:57:10 Final Normal: <150 mg/ g creatinine
High: 150-500 mg/g creatinine
Very High: >500 mg/g creatinine
Nephrotic: >3000 mg/g creatinine Observation Date Value Abnormality Reference (Units ) Status Protein/Creatinine [Ratio] in Urine 12/15/2022 10:57:10 429 Above high normal <150 (mg/g ) Final Protein, Urine 12/15/2022 10:57:10 24 (mg/dL) Final Creatinine, Urine 12/15/2022 10:57:10 56 (mg/dL) Final Performing Location [facility] [place] [address] [place] [address]
--- OUTSIDE RECORDS SUMMARY | 2023-02-27 00:15 | External Medical Summary | Summary of Care ---
Author Name Unknown Organization [facility] Address [address] [place] [facility] [place] [address] Phone [phone] Care Team Providers Care Marriage Therapist Name Role Phone Eldon Dowd MD Primary Care Provider [phone]- [phone] Reason for Visit * Reason Comments Outpatient Testing Encounter Details Date Type Department Care Team Description 12/15/2022 Laboratory Laboratory [facility] [address] [place] [address] [facility] Scen[facility] [address] [place] [address] Arrived Allergies Active Allergy Reactions Severity Noted Date Comments Candesartan Cilexetil 01/04/2012 hyperkalemia Atenolol 08/21/2012 Pt was told not to take this again Other reaction(s): PT WAS TOLD NEVER TO TAKE AGAIN Candesartan High 06/13/2022 Other reaction(s): HYPERKALEMIA Lisinopril Other (Please comment) High 01/16/2014 Hypotension/ Increased creatinine Other reaction(s): INCREASED CREATININE/HYPOTENSION documented as of this encounter (statuses as of 12/15/2022) Medications Medication Sig Dispensed Refills Start Date [...] 24 Hour (Imdur)Indications: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,NSTEMI (non-ST elevated myocardial [...] DAILY 90 Tablet 1 11/15/2022 11/15/2023 Active documented as of this encounter (statuses as of 12/15/2022) Active Problems Problem Noted Date Chronic venous [...] as of this encounter (statuses as of 12/15/2022) Resolved Problems Problem Noted Date Resolved Date Hypertensive kidney disease with chronic kidney disease stage III 10/30/2018 02/12/2020 Overview: Per CKD protocol Chest discomfort 02/23/2015 09/01/2016 Viral URI with cough 03/25/2014 09/01/2016 Accelerate Clinical Trial*[id number] 08/27/2012 08/27/2012 Accelerate Clinical Trial*[id number] 08/27/2012 03/29/2015 Overview: ACCELERATE STUDY. Project # [id number], MOBILE MARKETING SPECIALIST: Basil Everett MD. CRC: GENE Whitney. SUMMARY: To test the hypothesis that Evacetrapib 130 mg, in comparison to placebo, reduces the risk of major adverse coronary events in high-risk vascular disease patients. CONTACTS: During normal business hours, contact study staff at ; after hours Diver'S Tender via the [facility] hospital tuber operator [phone]. 24-hour Global Study Helpline: [phone]. Lipid levels should not be ordered/obtained while this subject is in the Accelerate study. Lipids are being managed in a blinded fashion. If lipid levels are inadvertently obtained, it is important that test results are NOT provided to the patient, study doctor, cable television access coordinator, or other study team members. Restricted meds while in the study: 1) niacin > 250 mg, 2) gemfibrozil with a potent [id number]. Hyperglycemia 02/18/2012 01/10/2017 NSTEMI (non-ST elevated myocardial [...] as of this encounter (statuses as of 12/15/2022) Immunizations Name Administration Dates Next Due COVID-19 [...] Encounters Date Type Specialty Care Team Description 12/19/2022 Office Visit Family Medicine Eldon Dowd MD [address] [facility] [address] 12/25/2022 Nurse Only Ancillary Nurse Regina [address] [facility] [place] [address] 12/25/2022 Imaging Radiology 01/06/2023 Imaging Radiology 01/10/2023 Office Visit Orthopedics Aaron Boss MD [address] [place] [address] 01/19/2023 Office Visit Cardiology James Reyes PA-C [address] [place] [address] 02/15/2023 Office Visit Orthopedics Jeison Arteaga DO [address] [facility] [place] [address] 03/22/2023 Office Visit Family Medicine Eldon Dowd MD [address] [facility] [address] 05/16/2023 Office Visit Hematology Oncology Patricia Conway MD [address] [place], [place] [address] 07/06/2023 Office Visit Nephrology Lili Rodríguez MD [address] [place] [address] 07/31/2023 Office Visit Urology Andrea Antony MD [address] [address] [place] [address] 10/11/2023 Nurse Only Ancillary [place] Nurse [facility] [address] [place] [address] Health Maintenance Due Date Last Done Comments COVID-19 Vaccine (6 - Moderna series) 03/13/2022 01/16/2022, 07/18/2021, 02/14/2021, Additional history exists DIABETES-EYE EXAM 04/25/2022 04/25/2021, , 12/30/2018 Albumin/Creatinine Ratio 03/22/2023 022, 03/30/2021, 12/02/2019, Additional history exists HbA1c 03/23/2023 09/21/2022, 05/31, 12/12/2021, Additional history exists CKD HGB USE SMARTSET 80187 09/15/202309/14, 05/16/2022, 05/16/2022, Additional history exists Depression Screening 10/10/2023 10/09/2022 Diabetic Foot Exam 10/10/2023 10/09/2022, 0 08/30/2021, 10/31/2019, Additional history exists CKD PHOS USE SMARTSET 32763 12/16/202312/01, 12/12/2021, 12/02/2019, Additional history exists DTaP,Tdap,and [...] filedocumented as of this encounter Care Teams Marriage Therapist Relationship Specialty Start Date End Date Eldon Dowd MD [address] [place], [place] [id number] PCP - General Family Medicine 12/05/18 documented as of this encounter
--- OUTSIDE RECORDS SUMMARY | 2023-02-27 00:15 | External Medical Summary | Summary of Care ---
Author Name Unknown Organization [facility] Address [address] [place] [address] Phone [phone] Care Team Providers Care Residence Leasing Agent Name Role Phone Eldon Dowd MD Primary Care Provider [phone]- [phone] Reason for Referral * Evaluate & Treat - Unlimited Visits (Within 10 days (routine)) - Pending Review Specialty Diagnoses / Procedures Referred By Urmila paniagua Referred To Contact Orthopaedic Surgery / Orthopedics Diagnoses Synovial cyst of shoulder Primary osteoarthritis, left shoulder Bette Ramirez MD [address] [place] [address] Referral ID Status Reason Start Date Expiration Date Visits Requested Visits Authorized [id number] Pending Review Specialty Services Required 12/13/[phone] Question Answer Referral Priority Within 10 days (routine) What body part is the patient being seen for? Shoulder What condition is the patient being seen for? Sprain/Strain/Tear/Other Comments Spraks or saji * Precert (Within 10 days (routine)) - Pending Review Specialty Diagnoses / Procedures Referred By Urmila paniagua Referred To Contact Radiology Diagnoses Synovial cyst of shoulder Primary osteoarthritis, left shoulder Procedures MRI SHOULDER LEFT WO CONTRAST Bette Ramirez MD [address] [place] [address] Referral ID Status Reason Start Date Expiration Date V isits Requested Visits Authorized [id number] Pending Review 12/13/2022 999 999 Reason for Visit * Reason Onset Date Comments Follow Up L shoulder Medication Administration 12/13/2022 Flu an d/or Pneumo Inj * Evaluate & Treat - Unlimited Visits (Within 30 days (routine)) - Pending Review Specialty Diagnoses / Procedures Referred By Urmila paniagua Referred To Contact Orthopaedic Surgery / Orthopedics Diagnoses Left shoulder pain, unspecified chronicity Eldon Dowd MD [address] [place] [address] Referral ID Status Reason Start Date Expiration Date Visits Requested Visits Authorized [id number] Pending Review Specialty Services Required 10/05/[phone] Encounter Details Date Type Department Care Team Description 12/13/2022 Office Visit Orthopaedics [facility] [address] [place] [address] Bette Ramirez MD [address] [place] [address] Synovial cyst of shoulder*; Primary osteoarthritis, left shoulder; Need for prophylactic vaccination and inoculation against influenza Allergies Active Allergy Reactions Severity Noted Date Comments Candesartan Cilexetil 01/04/2012 hyperkalemia Atenolol 08/21/2012 Pt was told not to take this again Other reaction(s): PT WAS TOLD NEVER TO TAKE AGAIN Candesartan High 06/13/2022 Other reaction(s): HYPERKALEMIA Lisinopril Other (Please comment) High 01/16/2014 Hypotension/ Increased creatinine Other reaction(s): INCREASED CREATININE/HYPOTENSION documented as of this encounter (statuses as of 12/13/2022) Medications Medication Sig Dispensed Refills Start Date [...] 24 Hour (Imdur)Indications: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 Project # [id number], CD MIXER HELPER: Basil Everett MD. CRC: GENE Whitney. SUMMARY: To test the hypothesis that Evacetrapib 130 mg, in comparison to placebo, reduces the risk of major adverse coronary events in high-risk vascular disease patients. CONTACTS: During normal business hours, contact study staff at ; after hours Import Manager via the [facility] hospital pipe smoking machine operator [phone]. 24-hour Global Study Helpline: [phone]. Lipid levels should not be ordered/obtained while this subject is in the Accelerate study. Lipids are being managed in a blinded fashion. If lipid levels are inadvertently obtained, it is important that test results are NOT provided to the patient, study doctor, lifestyle coordinator, or other study team members. Restricted meds while in the study: 1) niacin > 250 mg, 2) gemfibrozil with a potent [id number]. Hyperglycemia 02/18/2012 01/10/2017 NSTEMI (non-ST elevated myocardial [...] as of this encounter (statuses as of 12/13/2022) Immunizations Name Administration Dates Next Due COVID-19 [...] Sign Reading Time Taken Comments Blood Pressure 154/78 12/13/2022 10:21 AM EDT Pulse - - Temperature - - Respiratory Rate - - Oxygen Saturation - - Inhaled Oxygen Concentration - - Weight - - Height - - Body Mass Index - - documented in this encounter Patient Instructions * Patient Instructions* Shilpa Huddleston LPN - 12/13/2022 11:05 AM EDT ~~PATIENT INSTRUCTIONS FOR FLU SHOT~~ Possible side effects of influenza vaccine, (flu shot), are usually mild and include: 1. Soreness or redness at injection site 2. Low grade fever 3. Body aches You may use Tylenol/Acetaminophen as needed for these symptoms. LET YOUR DOCTOR KNOW IMMEDIATELY IF YOU HAVE DIFFICULTY BREATHING OR SWALLOWING, EXPERIENCE ITCHINGOF FEET OR HANDS, HAVE SWELLING OF EYES, FACE OR INSIDE OF NOSE. documented in this encounter Progress Notes * Shilpa Hdudleston LPN - 12/13/2022 11:03 AM EDT PRE - ADMINISTRATION DOCUMENTATION Are you experiencing any cold symptoms or fever? No Have you had Guillain-[place] Syndrome (an illness that causes paralysis) within the last 6 weeks? No Have you had the flu shot in the past? YES Have you ever had a reaction to the flu shot? No Shilpa Huddleston LPN, 12/13/2022 11:03 AM Immunization Administration Documentation Time Out Procedure Performed: Yes Patient Identified (Ask Name/Date of ): Yes Does the patient have a fever greater than 101 degrees today? No Patient allergic to latex? No VFC Stock: No Immunization(s) verified: Yes, Immunization Name: Flu, VIS Sheet(s) given: Yes Verified Side and Site: Yes Verified Shot(s) with Parent(s)/Patient: Yes * Bette Ramirez MD - 12/13/2022 10:49 AM EDT Teodoro Arceo is a 87 year old male who presents for follow up of left shoulder to [facility]. Teodoro Arceo is here with his/her son History: Chief Complaint Patient presents with Follow Up L shoulder Nursing Notes: Marlee García ATC 12/13/22 1013 Signed Patient presents for 6 week follow up of L shoulder synovial cyst aspiration. The cyst has increased in size. JAIDEN Whalen I initially saw patient 11/01/2022 for left shoulder pain/lump. Presentation was consistent with a synovial cyst of the AC joint due to significant AC joint degenerative changes. After discussion of treatment options he elected to undergo aspiration and injection. Unfortunately, this is multiloculated and therefore only 12 mL was aspirated. It was then subsequently injected with 1 mL of lidocaine and 1 mL of triamcinolone. He presents today for 6 week follow up. He reports good improvement in symptoms and size of the lump but this was short- lived and only lasted for about 3 weeks. The size has gradually increased over the past 3 weeks. He was bothered mostlyby the appearance and that it interferes with activity/getting dressed. Review of systems: All others negative except those noted above in HPI. Objective: Physical Exam Filed Vitals: 12/13/22 1021 BP: 154/78 Estimated body mass index is 22.5 kg/m as calculated from the following: Height as of 09/15/22: 1.727 m (5' 8"). Weight as of 11/03/22: 67.1 kg (148 lb). General: generally well-nourished and in no acute distress HEENT: normocephalic, atraumatic, sclera anicteric Psych: mood and affect normal , cooperative Card: Peripheral pulses: normal in affected extremity (s) Resp: equal chest rise, non-tachypneic, non-labored breathing Skin: no rash, normal Neuro: Coordination: normal; Sensation: normal on affected extremity (s) MSK: Shoulder exam, bilateral Inspection: mass over AC joint. No erythema or warmth. Skin intact. Palpation: mildly TTP left ACJ synovial cyst Shoulder glenohumeral ACTIVE range of motion: ABD (100') - Right - 60 degrees Left - 60 degrees ER (90') - Right - 60 degrees Left - 60 degrees IR (60') - Right - to hip Left - to hip FF (110') - Right - 60 degrees Left - 60 degrees Assessment and Plan: ICD-10-CM 1. 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 Need for prophylactic vaccination and inoculation against influenza Z23 Mr. Arceo is a very pleasant 87-year-old male who is seen today for follow up of left shoulder synovial cyst of the AC joint. Underwent ultrasound-guided aspiration and injection on 11/01/2022. Unfortunately, due to the underlying anatomy and the fact that the cyst is multiloculated, was not able to get complete resolution of his symptoms. He does report that his symptoms were drastically improved for about 3 weeks but then the cyst started to return. We discussed potential treatment options including topical Voltaren gel, reaspiration (too soon forreinjection) and surgical referral. At this point he is looking for a more definitive solution. We will obtain MRI for surgical planning and have him follow up with 1 of our orthopedic surgeons. Of note, he does have significant underlying glenohumeral joint arthritis and rotator cuff arthropathy, but is more concerned with the AC joint. He is not looking for RTS and is only looking for the AC joint to be addressed. The above assessment and plan were discussed at length. All questions were answered, and the patient expressed understanding. Bette Ramirez MD Primary Care Sports Medicine ising Orthopaedics [address] [address] documented in this encounter Nursing Notes * Marlee García ATC - 12/13/2022 10:11 AM EDT Patient presents for 6 week follow up of L shoulder synovial cyst aspiration. The cyst has increased in size. JAIDEN Whalen documented in this encounter Plan of Treatment Upcoming Encounters Date Type Specialty Care Team Description 12/15/2022 Office Visit Nephrology Lili Rodríguez MD [address] [place] [address] 01/06/2023 Imaging Radiology 01/10/2023 Office Visit Orthopedics Aaron Boss MD [address] [place] [id number] 01/19/2023 Office Visit Cardiology James Reyes PA-C [address] [place] [address] 02/15/2023 Office Visit Orthopedics Jeison Arteaga DO [address] [place] [address] 03/22/2023 Office Visit Family Medicine Eldon Dowd MD [address] [place] [address] 05/16/2023 Office Visit Hematology Oncology Patricia Conway MD [address] [place] [address] 10/11/2023 Nurse Only Ancillary [place] Nurse [facility] [address] [place] [address] Scheduled Orders Name Type Priority Associated Diagnoses Orde r Schedule MRI SHOULDER LEFT WO CONTRAST Medical Imaging Routine Synovial cyst of shoulder Primary osteoarthritis, left shoulder Expected: 12/13/2022, Expires: 01/13/2024 Scheduled Referrals Name Type Priority Associated Diagnoses Order Schedule ORTHOPAEDICS REFERRAL OP Referral Within 10 days (routine) Synovial cyst of shoulder Primary osteoarthritis, left shoulder Ordered: 12/13/2022 Health Maintenance Due Date Last Done Comments COVID-19 Vaccine (6 - Moderna series) 03/13/2022 01/16/2022, 07/18/2021, 02/14/2021, Additional history exists DIABETES-EYE EXAM 04/25/2022 04/25/2021, , 12/30/2018 CKD PHOS USE SMARTSET 94123 12/12/202212/01, 12/02/2019, 02/18/2019, Additional history exists Albumin/Creatinine Ratio 03/22/2023 022, 03/30/2021, 12/02/2019, Additional history exists HbA1c 03/23/2023 09/21/2022, 05/31, 12/12/2021, Additional history exists CKD HGB USE SMARTSET 07626 09/15/202309/14, 05/16/2022, 05/16/2022, Additional history exists Depression Screening 10/10/2023 10/09/2022 Diabetic Foot Exam 10/10/2023 10/09/2022, 0 08/30/2021, 10/31/2019, Additional history exists DTaP,Tdap,and Td Vaccines (2 [...] Diagnoses Diagnosis Synovial cyst of shoulder- Primary Primary osteoarthritis, left shoulder Need for prophylactic vaccination and inoculation against influenza documented in this encounter Care Teams Residence Leasing Agent Relationship Specialty Start Date End Date Eldon Dowd MD [address], [place] [id number] PCP - General Family Medicine 12/05/18 documented as of this encounter
--- OUTSIDE RECORDS SUMMARY | 2023-02-27 00:15 | External Medical Summary | Summary of Care ---
Author Name Unknown Organization [facility] Address [address] [facility] [place] [address] Phone [phone] Care Team Providers Care Hardness Tester Name Role Phone Eldon Dowd MD Primary Care Provider [phone]- [phone] Reason for Visit * Reason Onset Date Comments Encounter Created in Error 12/22/2022 Encounter Details Date Type Department Care Team Description 12/22/2022 Telephone Nephrology, Kamla Galaviz [address] [facility] [place] [address] Lili Rodríguez MD [address] [facility] [place] [place] [address] Encounter Created in Error Allergies Active Allergy Reactions Severity Noted Date Comments Candesartan Cilexetil 01/04/2012 hyperkalemia Atenolol 08/21/2012 Pt was told not to take this again Other reaction(s): PT WAS TOLD NEVER TO TAKE AGAIN Candesartan High 06/13/2022 Other reaction(s): HYPERKALEMIA Lisinopril Other (Please comment) High 01/16/2014 Hypotension/ Increased creatinine Other reaction(s): INCREASED CREATININE/HYPOTENSION documented as of this encounter (statuses as of 12/22/2022) Medications Medication Sig Dispensed Refills Start Date [...] 24 Hour (Imdur)Indications: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,NSTEMI (non-ST elevated myocardial [...] as of this encounter (statuses as of 12/22/2022) Active Problems Problem Noted Date Protein-calorie malnutrition [...] as of this encounter (statuses as of 12/22/2022) Resolved Problems Problem Noted Date Resolved Date Hypertensive kidney disease with chronic kidney disease stage III 10/30/2018 02/12/2020 Overview: Per CKD protocol Chest discomfort 02/23/2015 09/01/2016 Viral URI with cough 03/25/2014 09/01/2016 Accelerate Clinical Trial*[id number] 08/27/2012 08/27/2012 Accelerate Clinical Trial*[id number] 08/27/2012 03/29/2015 Overview: ACCELERATE STUDY. Project # [id number], ACADEMIC COUNSELOR: Basil Everett MD. CRC: GENE Whitney. SUMMARY: To test the hypothesis that Evacetrapib 130 mg, in comparison to placebo, reduces the risk of major adverse coronary events in high-risk vascular disease patients. CONTACTS: During normal business hours, contact study staff at ; after hours Control Panel Tester via the [facility] hospital vacuum metalizer operator [phone]. 24-hour Global Study Helpline: [phone]. Lipid levels should not be ordered/obtained while [...] 250 mg, 2) gemfibrozil with a potent [id number]. Hyperglycemia 02/18/2012 01/10/2017 NSTEMI (non-ST elevated myocardial [...] as of this encounter (statuses as of 12/22/2022) Immunizations Name Administration Dates Next Due COVID-19 [...] Encounters Date Type Specialty Care Team Description 12/25/2022 Nurse Only Nurse [place] [address] [place] [address] 12/25/2022 Imaging Radiology 12/25/2022 Telemedicine Orthopedics Bette Ramirez MD [address] [place] [address] 01/06/2023 Imaging Radiology 01/10/2023 Office Visit Orthopedics Aaron Boss MD [address] [place] [address] 01/10/2023 Nurse Only Nephrology Sp, Nurse Nephrology [address] [facility] [place] [address] 01/19/2023 Office Visit Cardiology James Reyes PA-C [address] [place] [address] 02/15/2023 Office Visit Orthopedics Jeison Arteaga DO [address] [place] [address] 03/22/2023 Office Visit Family Medicine Eldon Dowd MD [address] [place] [address] 05/16/2023 Office Visit Hematology Oncology Patricia Conway MD [address] [facility] [place] [address] 07/06/2023 Office Visit Nephrology Lili Rodríguez MD [address] [facility] [place] [address] 07/31/2023 Office Visit Urology Andrea Antony MD [address] [facility] [address] [place] [address] 10/11/2023 Nurse Only Ancillary Nurse [facility] [address] [facility] [place] [address] Health Maintenance Due Date Last Done Comments COVID-19 Vaccine (6 - Moderna series) 03/13/2022 01/16/2022, 07/18/2021, 02/14/2021, Additional history exists DIABETES-EYE EXAM 04/25/2022 04/25/2021, , 12/30/2018 HbA1c 03/23/2023 09/21/2022, 05/31, 12/12/2021, Additional history exists CKD HGB USE SMARTSET 98739 09/15/202309/14, 05/16/2022, 05/16/2022, Additional history exists Depression Screening 10/10/2023 10/09/2022 Diabetic Foot Exam 10/10/2023 10/09/2022, 0 08/30/2021, 10/31/2019, Additional history exists Albumin/Creatinine Ratio 12/16/202312/15/2 023, 03/22/2022, 03/30/2021, Additional history exists CKD PHOS USE SMARTSET 89906 12/16/202312/01, 12/12/2021, 12/02/2019, Additional history exists DTaP,Tdap,and [...] filedocumented as of this encounter Care Teams Hardness Tester Relationship Specialty Start Date End Date Eldon Dowd MD [address] [place], [place] [phone] PCP - General Family Medicine 12/05/18 documented as of this encounter
--- OUTSIDE RECORDS SUMMARY | 2023-02-27 00:15 | External Medical Summary ---
Author Name Unknown Address Unknown Organization : Laboratory Report Ordering Provider Test Date Status JAD VELAZQUEZ 12/15/2022 10:57:10 Final Observation Date Value Abnormality Reference (Units ) Status Cystatin C [Mass/volume] in Serum or Plasma 12/15/2022 10:57:10 1.41 Above high normal 0.52-1.13 (mg/L) Final Glomerular filtration rate/1.73 sq M.predicted [Volume Rate/Area] in Serum, Plasma or Blood by Cystatin-based formula 12/15/2022 10:57:10 44 Below low normal >=60 Final REFERENCE RANGE:>=60 mL/min/ 1.73mE2

Test Performed at:
[facility]
[address] [facility]
[place] [address]
Nathan Lewis M.D., Ph.D.,Director of Laboratories Performing Location
--- OUTSIDE RECORDS SUMMARY | 2023-02-27 00:15 | External Medical Summary | Summary of Care ---
Author Name Unknown Organization [facility] Address [address] [place] [address] Phone [phone] Care Team Providers Care Ic Designer Gate Arrays Name Role Phone Kinjal Hernández MD Primary Care Provider [phone] Reason for Referral * Evaluate & Treat - Unlimited Visits (Within 10 days (routine)) - Pending Review Specialty Diagnoses / Procedures Referred By Urmila paniagua Referred To Contact Urology Diagnoses Stage 3b chronic kidney disease (HCC) Urinary frequency Lili Rodríguez MD [address] [place] [address] Referral ID Status Reason Start Date Expiration Date Visits Requested Visits Authorized [id number] Pending Review Specialty Services Required 12/15/[phone] Question Answer Referral Priority Within 10 days (routine) What is the patient being referred for? Urinary Concerns Reason for Visit * Reason Comments Chronic Kidney Disease (CKD) Encounter Details Date Type Department Care Team Description 12/15/2022 Office Visit Nephrology, Kamla Urbanna [address] [place] [address] [phone] Lili Rodríguez MD [address] [phone] Stage 3b chronic kidney disease (HCC)*; Uncontrolled hypertension; HTN, goal below 140/90; Weight loss; Frequent falls; Urinary frequency; Localized edema; Protein-calorie malnutrition, unspecified severity (HCC) Allergies Active Allergy Reactions Severity Noted Date Comments Candesartan Cilexetil 01/04/2012 hyperkalemia Atenolol 08/21/2012 Pt was told not to take this again Other reaction(s): PT WAS TOLD NEVER TO TAKE AGAIN Candesartan High 06/13/2022 Other reaction(s): HYPERKALEMIA Lisinopril Other (Please comment) High 01/16/2014 Hypotension/ Increased creatinine Other reaction(s): INCREASED CREATININE/HYPOTENSION documented as of this encounter (statuses as of 12/21/2022) Medications Medication Sig Dispensed Refills Start Date [...] 3 Active linaGLIPtin 5 MG Oral Tablet (Tradjenta)Indicat ions:Type 2 diabetes mellitus with hemoglobin A1c goal of less than 8.0% (HCC) Take 1 Tablet by mouth in the morning. 90 Tablet 3 04/04/2022 Active Empagliflozin 10 MG Oral Tablet (Jardiance) TAKE ONE TABLET BY MOUTH IN THE MORNING 30 Tablet 5 06/21/2022 4 Active Carvedilol 12.5 MG Oral Tablet (Coreg)Indications [...] 24 Hour (Imdur)Indications :Coronary artery disease involving [place] coronary artery of [place] heart without angina pectoris,NSTEMI (non-ST elevated myocardial infarction) (HCC) TAKE ONE TABLET BY MOUTH EVERY MORNING. 90 Tablet 3 10/11/2022 Active predniSONE 5 MG Oral Tablet (Deltasone) TAKE 1 TO 3 TABLETS BY MOUTH DAILY 100 Tablet 5 10/16/2022 4 Active Atorvastatin Calcium 80 MG Oral Tablet (Lipitor)Indicatio ns:Encounter for long-term (current) use of other medications TAKE ONE TABLET BY MOUTH DAILY 90 Tablet 1 11/15/2022 4 Active Cephalexin 500 MG Oral Capsule (Keflex)Indication s:Left leg cellulitis Take 1 Capsule by mouth in the morning and 1 Capsule at noon and 1 Capsule before bedtime. 21 Capsule 0 10/20/2022 3 Discontinued Sulfamethoxazole-T rimethoprim 400-80 MG Oral Tablet (Bactrim) Take 1 Tablet by mouth in the morning and 1 Tablet before bedtime. 14 Tablet 0 11/03/2022 3 Discontinued documented as of this encounter (statuses as of 12/21/2022) Active Problems Problem Noted Date Protein-calorie malnutrition [...] as of this encounter (statuses as of 12/21/2022) Resolved Problems Problem Noted Date Resolved Date Hypertensive kidney disease with chronic kidney disease stage III 10/30/2018 02/12/2020 Overview: Per CKD protocol Chest discomfort 02/23/2015 09/01/2016 Viral URI with cough 03/25/2014 09/01/2016 Accelerate Clinical Trial*[id number] 08/27/2012 08/27/2012 Accelerate Clinical Trial*[id number] 08/27/2012 03/29/2015 Overview: ACCELERATE STUDY. Project # [id number], HYDRAULIC PRESS IN OPERATOR: Basil Everett MD. CRC: GENE Whitney. SUMMARY: To test the hypothesis that Evacetrapib 130 mg, in comparison to placebo, reduces the risk of major adverse coronary events in high-risk vascular disease patients. CONTACTS: During normal business hours, contact study staff at ; after hours Passport Support Associate via the [facility] splicing machine operator automatic [phone]. 24-hour Global Study Helpline: [phone]. Lipid levels should not be ordered/obtained while this subject is in the Accelerate study. Lipids are being managed in a blinded fashion. If lipid levels are inadvertently obtained, it is important that test results are NOT provided to the patient, study doctor, web marketing coordinator, or other study team members. Restricted meds while in the study: 1) niacin > 250 mg, 2) gemfibrozil with a potent [id number]. Hyperglycemia 02/18/2012 01/10/2017 NSTEMI (non-ST elevated myocardial [...] as of this encounter (statuses as of 12/21/2022) Immunizations Name Administration Dates Next Due COVID-19 [...] Sign Reading Time Taken Comments Blood Pressure 163/75 12/15/2022 9:30 AM EDT Pulse 62 12/15/2022 9:30 AM EDT Temperature 35.7 C (96.2 F) 12/15/2022 9:30 AM ED T Respiratory Rate 18 12/15/2022 9:30 AM EDT Oxygen Saturation 99% 12/15/2022 9:30 AM EDT Inhaled Oxygen Concentration - - Weight 66.2 kg (146 lb) 12/15/2022 9:30 AM EDT Height - - Body Mass Index 22.2 09/15/2022 10:11 AM EDT documented in this encounter Patient Instructions * Patient Instructions* Lili Rodríguez MD - 12/15/2022 9:59 AM EDT -ask Dr Hernández if you need to go back to rheumatology to evaluate need if any for ongoing prednisone -get Dr Hauser to check your elbow wound -avoid medicines like aleve, advil, ibuprofen, aspirin more than 81 mg daily and other NSAIDS whichare not good for kidney patients. Take only tylenol (acetaminophen) up to 2000 mg daily as needed for pain or as directed by your primary care provider. 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 No myeloma. No diabetes. ANCA negative. No tobacco. No nsaids. HTN since 2006. Pt with CAD with GA with stent to LAD., HFpEF Follows with cardiology [facility]. Follows annually w/ heme for MGUS/ IgG lambda gammopathy which was initially dx'd 2010. Also w/ seronegativearthritis maintained on low dose prednisone and for prn f/u w/ rheum. New dx DM 2018. New onset pA fib admission [facility] August 2018; then october 2018 also AF w/ RVR. Pt stopped aleve approx [id number]. TODAY 12/15/2022: did not have bp meds yet b/c usually takes 10 or 1030 w/ breakfast. Wt loss continues >> diarrhea has resolved. 2 hospital visits this spring for diarrhea/[facility]. Not feeling limited by stool/urine urgency as did last OV; has had extensive diarrhea w/u in past. Notes some leg swelling past week; elevates at home; Fell 2-3 wks back trying to get something off low shelf in fridge acc by son today and some discrepancies in hx between them. Lives independently still; uses rollator at home. REVIEW OF SYSTEMS: No F/C, ongoing wt loss; both energy level and appetite acceptable No acute visual changes or DENNIS No sinus, dental, throat pain No neck lumps/bumps or stiffness No palpitations, angina, orthopnea; mild chronic LE edema > tried TEDS; did not like/too hard toget on No cough, wheeze; chronic dypsnea stable No N/V/C/abd pain; D and swallowing issues last visit resolve No dysuria, hematuria; improved nocturia to about 2X; no new/worrisome voiding sx No rash or generalized itch Back and knees and hips w/ chronic pain No inappropriate bleeding or bruising No tremor, seizures, focal or global weakness or paresthesias Occasional presyncopal or orthostatic symptoms; chronic balance challenges; fell as below Current Outpatient Medications Medication Sig Dispense Refill CENTRUM PO TABS as directed 0 0 ASPIRIN 81 MG PO CHEW One pill by mouth once a day with food 100 Tab 5 COENZYME Q10 400 MG PO CAPS 1 CAPSULE DAILY 30 Cap 5 albuterol HFA (PROVENTIL HFA) 108 (90 [...] TABLET BY MOUTH DAILY 90 Tablet 1 Glucose Blood (ONETOUCH VERIO) STRP Use up to 1 times a day E11.9 100 Strip 3 No current facility-administered medications for this visit. Review of patient's allergies indicates: Allergen Reactions Candesartan Other reaction(s): HYPERKALEMIA Lisinopril Other (Please comment) Hypotension/ Increased creatinine Other reaction(s): INCREASED CREATININE/HYPOTENSION Atacand [Candesartan Cilexetil] hyperkalemia Atenolol Pt was told not to take this again Other reaction(s): PT WAS TOLD NEVER TO TAKE AGAIN PHYSICAL EXAMINATION: BP Readings from Last 6 Encounters: 12/15/22 163/75 12/13/22 154/78 11/03/22 122/72 10/09/22 164/82 10/04/22 150/63 09/15/22 151/66 Wt Readings from Last 6 Encounters: 12/15/22 66.2 kg (146 lb) 11/03/22 67.1 kg (148 lb) 10/09/22 68 kg (150 lb) 09/15/22 72.4 kg (159 lb 9.6 oz) 08/01/22 71.2 kg (157 lb) 07/14/22 73 kg (161 lb) Pulse Readings from Last 6 Encounters: 12/15/22 62 11/03/22 78 10/09/22 63 10/04/22 66 09/15/22 65 09/08/22 98 Clinic weights >> 12/2020 190# 01/2022 165# NAD, oriented x 3, in w/c Normocephalic, atraumatic, eomi nonicteric sclerae MMM Supple neck RRR w/o m/g/r; RLE 2++ edema and LLUE 1-2+ edema CTAB w/ reduced air mvt NT abd, +BS, soft No cyanosis or clubbing; L elbow wrapped; some LUE edema; several skin tears No rash No tremor, focal or global weakness; fluent speech, limited hx at times LABS: Recent Labs Units 12/15/22 1057 09/14/22 0940 05/16/22 1612 05/04/22 0907 SODIUM - [facility] mmol/L 143 143 141 142 POTASSIUM - [facility] mmol/L 4.1 4.5 4.2 4.0 CHLORIDE - [facility] mmol/L 106 107 106 105 CO2 - [facility] mmol/L 25 26 26 26 EGFR-OUTSIDE LAB 44* -- -- -- BUN - [facility] mg/dL 16 17 30* 26* CREATININE - [facility] mg/dL 0.5* 0.6 0.6 0.6 ESTIMATED GLOMERULAR FILTRATION RATE - [facility] mL/min >90 >90 >90 >90 Recent Labs Units 09/14/22 0940 05/16/22 1612 03/22/22 0849 05/26/21 0812 HGB - [facility] g/dL 13.1* 15.2 15.6 15.5 Recent Labs Units 12/15/22 1057 09/14/22 0940 05/16/22 1612 05/04/22 0907 03/22/22 0849 12/12/21 0908 CALCIUM - [facility] mg/dL 9.0 8.9 9.2 9.2 9.4 9.1 PHOSPHORUS - [facility] mg/dL 2.8 -- -- -- -- 3.3 25-HYDROXY VITAMIN D - [facility] ng/mL 27 -- -- -- -- -- PTH - [facility] pg/mL 33 -- -- -- 20 -- Recent Labs Units 09/21/22 1006 06/15/22 0938 12/12/21 0908 07/18/21 0909 HEMOGLOBIN A1C - [facility] % 7.5* 8.5* 10.5* 8.1* Recent Labs Units 12/15/22 1057 03/22/22 0849 07/18/21 1542 03/30/21 0819 01/21/21 0918 ALBUMIN/CREATININE RATIO, HIDE mg/g Creat -- Uninterpretable Albumin/Creatinine ratio due to very low albumin and creatinine values. -- -- -- ALBUMIN / CREATININE RATIO, URINE - [facility] mg/g Creat 83* -- -- 12 -- PROTEIN/ CREATININE RATIO, URINE - [facility] mg/g 429* -- 177* -- 102 Recent Labs Units 12/15/22 1057 03/22/22 0849 07/18/21 1542 CLARITY, URINE - [facility] Clear Clear Clear GLUCOSE, URINE - [facility] mg/dL >=1000* >=1000* 100* BILIRUBIN, URINE - [facility] Negative Negative Negative KETONE, URINE - [facility] mg/dL Negative Negative Negative SPECIFIC GRAVITY, URINE - [facility] 1.015 1.032* 1.020 BLOOD, URINE - [facility] Negative Negative Negative PH, URINE - [facility] Units 7.0 6.5 6.0 PROTEIN, URINE - [facility] mg/dL 30* Negative Negative PROTEIN, RANDOM URINE - [facility] mg/dL 24 -- 14 UROBILINOGEN, URINE - [facility] mg/dL 0.2 Normal 1.0 NITRITE, URINE - [facility] Negative Negative Negative ESTERASE, URINE - [facility] Negative Negative Negative BACTERIA, URINE - [facility] /HPF 0-25 0-25 0-25 WBC, URINE - [facility] /HPF 0-2 0-2 0-2 RBC, URINE - [facility] /HPF 0-2 0-2 0-03 MARCH 2022 eGFR cystatin 34 eGFR creat 82 eGFR combained 53 ASSESSMENT AND PLAN: Stage 3b chronic kidney disease (HCC) (Primary) - COMPREHENSIVE METABOLIC PANEL - CYSTATIN C WITH EGFR - ALBUMIN / CREATININE RATIO, URINE - URINALYSIS WITH MICROSCOPIC EXAM - PROTEIN/ CREATININE RATIO, URINE - PHOSPHORUS - PTH - 25-HYDROXY VITAMIN D - UROLOGY REFERRAL OP - US RENAL Uncontrolled hypertension HTN, goal below 140/90 Weight loss Frequent falls Urinary frequency - UROLOGY REFERRAL OP - US RENAL Localized edema Follow Up: Return in about 6 months (around 06/15/2023) for clinic visit w/ . | For: clinic visit iam/ | Check-out note: -needs OV w/ Dr Hinojosa offic in next 2 days re L elbow wound -schedule u/s same day as mri if possible Profound weight loss continues and affects his renal functoin; in 2020 he had CKD 3 neither a nor bby creat/GFR >> now 23% wt loss since 2020 he has normal renal function when measured by creatinine > likely d/t loss of MM mass. >check creat by cystatin C > in 03/2022 combined eGFR as calculated above on [employer] website = 53ml/min -further w/u of wt changes per PCP Though his creatiine/routine eGFR suggest no CKD, he has CKD 3 on combined CKD epi assessment as calculated above -continue jardiance -may need to start acei/ARB / see below W/ frequent falls, have liberalized target bp > he is well above target most of the time; some agitation today w/ skin tear/wound on L elbow and wanting eval for that (referred to PCP for this) but bp elevation consistent -continue lasix, terazosin, coreg, imdur -look to add isadora/arb given DM and CKD >> will need close monitoring d/t hx of hyperkalemia, hypotension, creatinine changes in past >could also consider lasix increase, though he's already struggling w/ urologic sx -no alarm symptoms today; no ER eval indicated; alarm sx reviewed w/ pt Pt requests urology eval and so ordered; eval for/ rule out obstruction w/ u/s Continue lasix for edema and leg elevation where possible Proteinuria /MGUS not severe enough to have a role in edema > albumin low but only moderately Patient Instructions -ask Dr Hernández if you need to go back to rheumatology to evaluate need if any for ongoing prednisone -get Dr Hauser to check your elbow wound -avoid medicines like aleve, advil, ibuprofen, aspirin more than 81 mg daily and other NSAIDS whichare not good for kidney patients. Take only tylenol (acetaminophen) up to 2000 mg daily as needed for pain or as directed by your primary care provider. Lili Rodríguez MD Nephrology, [address] [place] [address] CC: Ref: KINJAL HERNÁNDEZ[[id number]] [address] [place] [address] (office) [phone] (fax) PCP: KINJAL HERNÁNDEZ [address] [place] [address] This chart was completed in part utilizing [employer] Speech Voice Recognition Software. Randomword insertions, pronoun errors, and incomplete sentences are an occasional consequence of this system due to software limitations, and ambient noise. Any questions or concerns about the content, text, or information contained within the body of this dictation should be directly addressed to the provider for clarification. documented in this encounter Nursing Notes * Paty Zarco RN - 12/15/2022 9:32 AM EDT Follow up visit today. Pt was recently treated for infected skin tear left arm. Son present in roomfor visit. Some pitting edema noted lower legs. States he does monitor bp at home and has been 13-160/60-80. Reports he did not take medications this AM. documented in this encounter Plan of Treatment Upcoming Encounters Date Type Specialty Care Team Description 12/25/2022 Nurse Only Nurse Holden [address] [place] [address] 12/25/2022 Imaging Radiology 01/06/2023 Imaging Radiology 01/10/2023 Office Visit Orthopedics Aaron Boss MD [address] [place] [phone] 01/19/2023 Office Visit Cardiology James Reyes PA-C [address] [place] [address] 02/15/2023 Office Visit Orthopedics Jeison Arteaga DO [address] [place] [address] 03/22/2023 Office Visit Family Medicine Kinjal Hernández MD [address] [place] [facility] [place] [address] 05/16/2023 Office Visit Hematology Oncology Patricia Conway MD [address] [place] [address] 07/06/2023 Office Visit Nephrology Lili Rodríguez MD [address] [place] [address] 07/31/2023 Office Visit Urology Andrea Antony MD [address] [facility] [address] [place], [place] [phone] 10/11/2023 Nurse Only Ancillary Nurse [facility] [address] [place] [address] Scheduled Orders Name Type Priority Associated Diagnoses Orde r Schedule US RENAL Medical Imaging Routine Stage 3b chronic kidney disease (HCC) Urinary frequency Ordered: 12/15/2022 Scheduled Referrals Name Type Priority Associated Diagnoses Orde r Schedule UROLOGY REFERRAL OP Referral Within 10 da ys (routine) Stage 3b chronic kidney disease (HCC) Urinary frequency Ordered: 12/15/2022 Health Maintenance Due Date Last Done Comments COVID-19 Vaccine (6 - Moderna series) 03/13/2022 01/16/2022, 07/18/2021, 02/14/2021, Additional history exists DIABETES-EYE EXAM 04/25/2022 04/25/2021, , 12/30/2018 HbA1c 03/23/2023 09/21/2022, 05/31, 12/12/2021, Additional history exists CKD HGB USE SMARTSET 52214 09/15/202309/14, 05/16/2022, 05/16/2022, Additional history exists Depression Screening 10/10/2023 10/09/2022 Diabetic Foot Exam 10/10/2023 10/09/2022, 0 08/30/2021, 10/31/2019, Additional history exists Albumin/Creatinine Ratio 12/16/20232 023, 03/22/2022, 03/30/2021, Additional history exists CKD PHOS USE SMARTSET 80917 12/16/202312/01, 12/12/2021, 12/02/2019, Additional history exists DTaP,Tdap,and [...] Not on filedocumented as of this encounter Procedures Procedure Name Priority Date/Time Associated Diagnosis Comments CYSTATIN C WITH EGFR Routine 12/15/2022 10:57 AM EDT Stage 3b chronic kidney disease (HCC) 25-HYDROXY VITAMIN D Routine 12/15/2022 10:57 AM EDT Stage 3b chronic kidney disease (HCC) PROTEIN/ CREATININE RATIO, URINE Routine 12/15/2022 10:57 AM EDT Stage 3b chronic kidney disease (HCC) COMPREHENSIVE METABOLIC PANEL Routine 12/15/2022 10:57 AM EDT Stage 3b chronic kidney disease (HCC) URINALYSIS WITH MICROSCOPIC EXAM Routine 12/15/2022 10:57 AM EDT Stage 3b chronic kidney disease (HCC) PHOSPHORUS Routine 12/15/2022 10:57 AM EDT Stage 3b chronic kidney disease (HCC) PTH Routine 12/15/2022 10:57 AM EDT Stage 3b chronic kidney disease (HCC) ALBUMIN / CREATININE RATIO, URINE Routine 12/15/2022 10:57 AM EDT Stage 3b chronic kidney disease (HCC) documented in this encounter Results * 25-HYDROXY VITAMIN D (12/15/2022 10:57 AM EDT) 25-Hydroxy Vitamin D 27 >19 ng/mL 12/15/2022 5:59 PM EDT [facility] Blood Venous blood specimen / Unknown Venipuncture / Unknown 12/15/2022 10:57 AM EDT 12/15/2022 10:57 AM EDT Narrative [facility] - 12/15/2022 5:59 PM EDT Deficient: <20 ng/mL Insufficient: 20-29 ng/mL Recommended/Optimum:30-50 ng/mL Vitamin D intoxication is rare. If suspicious of Vitamin D toxicity, evaluation of serum Calcium and PTH is recommended. Lili Rodríguez MD LAB BLOOD ORDERAB LES Performing Organization Address City/[facility]/ZIP Co de Phone Number LABORATORY [address] [address] * PTH (12/15/2022 10:57 AM EDT) Pathologist [facility] PTH 33 15 - 65 pg/mL 12/15/2022 5:59 PM EDT [facility] Blood Venous blood specimen / Unknown Venipuncture / Unknown 12/15/2022 10:57 AM EDT 12/15/2022 10:57 AM EDT Lili Rodríguez MD LAB BLOOD ORDERAB LES [facility] [address] [place] [address] * PHOSPHORUS (12/15/2022 10:57 AM EDT) Pathologist [facility] Phosphorus 2.8 2.5 - 4.8 mg/dL 12/15/2022 12:18 PM EDT [facility] 56-02 Blood Venous blood specimen / Unknown Venipuncture / Unknown 12/15/2022 10:57 AM EDT 12/15/2022 10:57 AM EDT Lili Rodríguez MD LAB BLOOD ORDERAB LES [facility] [address] [place] [address] * (ABNORMAL) PROTEIN/ CREATININE RATIO, URINE (12/15/2022 10:57 AM EDT) Protein/ Creatinine Ratio, Urine 429(H) <150 mg/g 12/15/2022 7:35 PM EDT [facility] Protein, Random Urine 24 mg/dL 12/15/2022 7:35 PM EDT [facility] Creatinine, Random Urine 56 mg/dL 12/15/2022 7:35 PM EDT [facility] Urine Non-blood Collection / Unknown 12/15/2022 10:57 AM EDT 12/15/2022 10:57 AM EDT Narrative LABORATORY [facility] - 12/15/2022 7:35 PM EDT Normal: <150 mg/g creatinine High: 150-500 mg/g creatinine Very High: >500 mg/g creatinine Nephrotic: >3000 mg/g creatinine Lili Rodríguez MD LAB URINE ORDERAB LES [facility] [address] [place] [address] * (ABNORMAL) URINALYSIS WITH MICROSCOPIC EXAM (12/15/2022 10:57 AM EDT) Color, Urine Yellow Light Yellow, Yellow, Dark Yellow 12/15/2022 11:44 AM EDT [facility] 56- Clarity, Urine Clear Clear 12/15/2022 11:44 AM EDT LABORATORY [place] 56- Glucose, Urine >=1000(A) Negative mg/dL 12/15/2022 11:44 AM EDT LABORATORY [place] 56- Bilirubin, Urine Negative Negative 12/15/2022 11:44 AM EDT [address] Ketone, Urine Negative Negative mg/dL 12/15/2022 11:44 AM EDT [address] Specific [place], Urine 1.015 1.003 - 1.030 12/15/2022 11:44 AM EDT [address] Blood, Urine Negative Negative 12/15/2022 11:44 AM EDT [address] pH, Urine 7.0 5.0 - 7.5 Units 12/15/2022 11:44 AM EDT [address] Protein, Urine 30(A) Negative mg/dL 12/15/2022 11:44 AM EDT [address] Urobilinogen, Urine 0.2 0.2, 1.0 mg/dL 12/15/2022 11:44 AM EDT [address] Nitrite, Urine Negative Negative 12/15/2022 11:44 AM EDT [address] Esterase, Urine Negative Negative 12/15/2022 11:44 AM EDT [address] RBC, Urine 0-2 0 - 2 /HPF 12/15/2022 11:44 AM EDT [address] WBC, Urine 0-2 0 - 2 /HPF 12/15/2022 11:44 AM EDT [address] Bacteria, Urine 0-25 0 - 25 /HPF 12/15/2022 11:44 AM EDT [address] Urine Urine specimen obtained by clean catch procedure / Unknown Non-blood Collection / Unknown 12/15/2022 10:57 AM EDT 12/15/2022 10:57 AM EDT Lili Rodríguez MD LAB URINE ORDERAB LES [address] [place] [address] * (ABNORMAL) ALBUMIN / CREATININE RATIO, URINE (12/15/2022 10:57 AM EDT) Albumin, Random Urine 4.54 mg/dL 12/15/2022 7:37 PM EDT [facility] Creatinine, Random Urine 55 mg/dL 12/15/2022 7:37 PM EDT [facility] Albumin / Creatinine Ratio, Urine 83(H) <30 mg/g Creat 12/15/2022 7:37 PM EDT [facility] Urine Urine specimen obtained by clean catch procedure / Unknown Non-blood Collection / Unknown 12/15/2022 10:57 AM EDT 12/15/2022 10:57 AM EDT Narrative [facility] - 12/15/2022 7:37 PM EDT Normal: <30 mg/g creatinine High: 30-300 mg/g creatinine Very High: >300 mg/g creatinine Nephrotic: >2200 mg/g creatinine Lili Rodríguez MD LAB URINE ORDERAB LES [facility] [address] [place] [address] * (ABNORMAL) CYSTATIN C WITH EGFR (12/15/2022 10:57 AM EDT) Cystatin C 1.41(H) 0.52 - 1.13 mg/L 12/19/2022 12:28 PM EDT [facility] EGFR 44(L) >=60 12/19/2022 12:28 PM EDT [facility] Comment: REFERENCE RANGE:>=60 mL/min/1.73mE2 Test Performed at: [facility] [address] [address] Nathan Lewis M.D., Ph.D.,Director of Laboratories Blood Venous blood specimen / Unknown Venipuncture / Unknown 12/15/2022 10:57 AM EDT 12/15/2022 10:57 AM EDT Lili Rodríguez MD LAB BLOOD ORDERAB LES [facility] [address] [address] * (ABNORMAL) COMPREHENSIVE METABOLIC PANEL (12/15/2022 10:57 AM EDT) BUN 16 6 - 20 mg/dL 12/15/2022 12:18 PM [place] [address] Creatinine 0.5(L) 0.6 - 1.2 mg/dL 12/15/2022 12:18 PM [place] [address] Estimated Glomerular Filtration Rate >90 >=60 mL/min 12/15/2022 12:18 PM [place] [address] Comment:eGFR is calculated b ased on the CKD-EPI 2020 equation Sodium 143 135 - 146 mmol/L 12/15/2022 12:[address] Potassium 4.1 3.5 - 5.1 mmol/L 12/15/2022 12:18 PM [address] Chloride 106 98 - 107 mmol/L 12/15/2022 12:[address] CO2 25 22 - 32 mmol/L 12/15/2022 12:18 PM [place] [address] Anion Gap 12 7 - 15 mmol/L 12/15/2022 12:[address] Glucose 131(H) 70 - 120 mg/dL 12/15/2022 12:18 PM [place] [address] Albumin 3.5(L) 3.8 - 5.0 g/dL 12/15/2022 12:[address] AST 13 10 - 50 U/L 12/15/2022 12:[address] Alkaline Phosphatase 53 35 - 130 U/L 12/15/2022 12:[address] Bilirubin, Total 0.5 <=1.2 mg/dL 12/15/2022 12:[address] Calcium 9.0 8.4 - 10.2 mg/dL 12/15/2022 12:[address] Protein 5.6(L) 6.0 - 8.3 g/dL 12/15/2022 12:[address] ALT 16 10 - 50 U/L 12/15/2022 12:[address] Blood Venous blood specimen / Unknown Venipuncture / Unknown 12/15/2022 10:57 AM EDT 12/15/2022 10:57 AM EDT Lili Rodríguez MD LAB BLOOD ORDERAB LES [facility] [address] [place] [address] documented in this encounter Visit Diagnoses Diagnosis Stage 3b chronic kidney disease (HCC)- Primary Uncontrolled hypertension Unspecified essential hypertension HTN, goal below 140/90 Unspecified essential hypertension Weight loss Loss of weight Frequent falls Personal history of fall Urinary frequency Localized edema Edema Protein-calorie malnutrition, unspecified severity (HCC) documented in this encounter Care Teams Ic Designer Gate Arrays Relationship Specialty Start Date End Date Kinjal Hernández MD [facility] [place] [address] PCP - General Family Medicine 12/05/18 documented as of this encounter"
--- OUTSIDE RECORDS SUMMARY | 2023-02-27 00:15 | External Medical Summary ---
Author Name Unknown Address Unknown Organization K09:[facility] [address] [place] [address] Laboratory Report Ordering Provider Test Date Status [address] 12/15/2022 10:57:10 Final Observation Date Value Abnormality Reference (Units ) Status BUN 12/15/2022 10:57:10 16 6-20 (mg/dL) Final Creatinine 12/15/2022 10:57:10 0.5 Below low normal 0.6-1.2 (mg/dL) Final Glomerular filtration rate/1.73 sq M.predicted [Volume Rate/Area] in Serum, Plasma or Blood by Creatinine-based formula (CKD-EPI) 12/15/2022 10:57:10 >90 >=60 (mL/min) Final eGFR is calculated based on the CKD-EPI 2020 equation SODIUM 12/15/2022 10:57:10 143 135-146 (m mol/L) Final Potassium 12/15/2022 10:57:10 4.1 3.5-5.1 (m mol/L) Final Cl 12/15/2022 10:57:10 106 98-107 (mm ol/L) Final CO2 12/15/2022 10:57:10 25 22-32 (mmo l/L) Final Anion gap 12/15/2022 10:57:10 12 7-15 (mmol /L) Final Glucose 12/15/2022 10:57:10 131 Above high normal 70 -120 (mg/dL) Final Albumin 12/15/2022 10:57:10 3.5 Below low normal 3.8 -5.0 (g/dL) Final AST (Aspartate aminotransferase) 12/15/2022 10:57:10 13 10-50 (U/L) Fin al Alk Phos 12/15/2022 10:57:10 53 35-130 (U/ L) Final Bilirubin, Total 12/15/2022 10:57:10 0.5 <=1 .2 (mg/dL) Final Calcium 12/15/2022 10:57:10 9.0 8.4-10.2 ( mg/dL) Final Protein 12/15/2022 10:57:10 5.6 Below low normal 6.0 -8.3 (g/dL) Final ALT (Alanine aminotransferase) 12/15/2022 10:57:10 16 10-50 (U/L) Blayne cuba Performing Location [facility] [address] [place] [address]
--- OUTSIDE RECORDS SUMMARY | 2023-02-27 00:15 | External Medical Summary ---
Author Name Unknown Address Unknown Organization K[facility] [place] [address] Laboratory Report Ordering Provider Test Date Status JAD VELAZQUEZ 12/15/2022 10:57:10 Final Observation Date Value Abnormality Reference (Units ) Status Phosphate 12/15/2022 10:57:10 2.8 2.5-4.8 (m g/dL) Final Performing Location [facility] [place] [address]
--- OUTSIDE RECORDS SUMMARY | 2023-02-27 00:15 | External Medical Summary | Summary of Care ---
Author Name Unknown Organization [facility] [address] [facility] [place] [address] Phone [phone] Care Team Providers Care Shagger Name Role Phone Eldon Dowd MD Primary Care Provider [phone]- [phone] Reason for Visit * Reason Onset Date Comments Test Results 12/22/2022 Med Request 12/22/2022 Encounter Details Date Type Department Care Team Description 12/22/2022 Telephone Nephrology, Kamla Galaviz [address] [place] [address] Lili Rodríguez MD [address] [place] [address] Test Results; Med Request Allergies Active Allergy Reactions Severity Noted Date [...] 24 Hour (Imdur)Indications:C oronary artery disease involving eastern [place] coronary artery of eastern [place] heart without angina pectoris,NSTEMI (non-ST elevated myocardial [...] URI with cough 03/25/2014 09/01/2016 Accelerate Clinical Trial*[id number] 08/27/2012 08/27/2012 Accelerate Clinical Trial*[id number] 08/27/2012 03/29/2015 Overview: ACCELERATE STUDY. Project # [id number], REGULATORY AFFAIRS SPECIALIST: Basil Everett MD. CRC: GENE Whitney. SUMMARY: To test the hypothesis that Evacetrapib 130 mg, in comparison to placebo, reduces the risk of major adverse coronary events in high-risk vascular disease patients. CONTACTS: During normal business hours, contact study staff at ; after hours Uniforms Sales Representative via the [facility] hospital landfill gas collection system operator [phone]. 24-hour Global Study Helpline: [phone]. Lipid levels should not be ordered/obtained while this subject is in the Accelerate study. Lipids are being managed in a blinded fashion. If lipid levels are inadvertently obtained, it is important that test results are NOT provided to the patient, study doctor, bariatric program coordinator, or other study team members. Restricted meds while in the study: 1) niacin > 250 mg, 2) gemfibrozil with a potent [id number]. Hyperglycemia 02/18/2012 01/10/2017 NSTEMI (non-ST elevated myocardial [...] encounter Miscellaneous Notes * Telephone Encounter - Lili Rodríguez MD - 12/22/2022 4:45 PM EDT Aware of past hypotension, hyperkalemia w/ other ARB, w/ acei >> starting pt on medium dose ARB and following labs, BP closely. * Telephone Encounter - Paty Zarco RN - 12/22/2022 3:50 PM EDT TE with pt regarding lab results and new medication. Pt reports he has a bp machine at home and will bring to [facility] clinic for validation. Senior Pharmacy Technician- Please add a nurse visit for SP 01/10/23 at 11AM. * Telephone Encounter - Paty Zarco RN - 12/22/2022 3:49 PM EDT ----- Message from Lili Rodríguez MD sent at 12/21/2022 4:18 PM EDT ----- Uncontrolled BP at recent OV . Kidney function stable or a bit better possibly. Combined eGFR (cystatin/creatinine) is 67. -recommend losartan 50 mg daily -NV for BP check in 2 wks >>is he a candidate for remote bp monitoring > would need someone to help him check BP (orhe could do it on his own daily) and would need internet service >> recommend this if pt is able * Telephone Encounter - Paty Zarco RN - 12/22/2022 3:48 PM EDT ----- Message from Lili Rodríguez MD sent at 12/21/2022 4:18 PM EDT ----- Uncontrolled BP at recent OV . Kidney function stable or a bit better possibly. Combined eGFR (cystatin/creatinine) is 67. -recommend losartan 50 mg daily -NV for BP check in 2 wks >>is he a candidate for remote bp monitoring > would need someone to help him check BP (orhe could do it on his own daily) and would need internet service >> recommend this if pt is able * Telephone Encounter - Paty Zarco RN - 12/22/2022 3:37 PM EDT ----- Message from Lili Rodríguez MD sent at 12/21/2022 4:18 PM EDT ----- Uncontrolled BP at recent OV . Kidney function stable or a bit better possibly. Combined eGFR (cystatin/creatinine) is 67. -recommend losartan 50 mg daily -NV for BP check in 2 wks >>is he a candidate for remote bp monitoring > would need someone to help him check BP (orhe could do it on his own daily) and would need internet service >> recommend this if pt is able documented in this encounter Plan of Treatment Upcoming Encounters Date Type Specialty Care Team Description 12/25/2022 Nurse Only Nurse Jihan Hatch[address] [place] [address] 12/25/2022 Imaging Radiology 12/25/2022 Telemedicine Orthopedics Bette Ramirez MD [address] [place] [address] 01/06/2023 Imaging Radiology 01/10/2023 Office Visit Orthopedics Aaron Boss MD [address] [place] [id number] 01/10/2023 Nurse Only Nephrology Sp, Nurse Nephrology [address] [place] [address] 01/19/2023 Office Visit Cardiology James Reyes PA-C [address] [place] [address] 02/15/2023 Office Visit Orthopedics Jeison Arteaga DO [address] [facility] [place] [address] 03/22/2023 Office Visit Family Medicine Eldon Dowd MD [address] [place] [address] 05/16/2023 Office Visit Hematology Oncology Patricia Conway MD [address] [place] [address] 07/06/2023 Office Visit Nephrology Lili Rodríguez MD [address] [place] [address] 07/31/2023 Office Visit Urology Andrea Antony MD [address] [place] [address] 10/11/2023 [facility] [address] [place] [address] Health Maintenance Due Date Last Done Comments COVID-19 Vaccine (6 - Moderna series) 03/13/2022 01/16/2022, 07/18/2021, 02/14/2021, Additional history exists DIABETES-EYE EXAM 04/25/2022 04/25/2021, , 12/30/2018 HbA1c 03/23/2023 09/21/2022, 0308/2022, 12/12/2021, Additional history exists CKD HGB USE SMARTSET 33036 09/15/202309/14, 05/16/2022, 05/16/2022, Additional history exists Depression Screening 10/10/2023 10/09/2022 Diabetic Foot Exam 10/10/2023 10/09/2022, 0 08/30/2021, 10/31/2019, Additional history exists Albumin/Creatinine Ratio 12/16/2023 023, 03/22/2022, 03/30/2021, Additional history exists CKD PHOS USE SMARTSET 38899 12/16/202312/01, 12/12/2021, 12/02/2019, Additional history exists DTaP,Tdap,and [...] Primary documented in this encounter Care Teams Shagger Relationship Specialty Start Date End Date Eldon Dowd MD [address] [place] [address] PCP - General Family Medicine 12/05/18 documented as of this encounter
--- OUTSIDE RECORDS SUMMARY | 2023-02-27 00:15 | External Medical Summary | Summary of Care ---
Author Name Unknown Organization [facility] Address [address] [place] [address] Phone [phone] Care Team Providers Care Pie Dough Roller Name Role Phone Eldon Dowd MD Primary Care Provider [phone]- [phone] Reason for Visit * Reason Comments Acute Ears checkPossible f lush Encounter Details Date Type Department Care Team Description 12/25/2022 Office Visit [facility] [address] [place] [address] Mac Aguilar MD [address] [place] [address] Bilateral impacted cerumen*; Bilateral hearing loss, unspecified hearing loss type; Type 2 diabetes mellitus with stage 3 chronic kidney disease, 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 terminal operations supervisor insulin use, 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 stage 3a or 3b CKD (HCC); Inflammatory polyarthropathies (HCC); Bursitis of left shoulder Allergies Active Allergy Reactions Severity Noted Date Comments Candesartan Cilexetil 01/04/2012 hyperkalemia Atenolol 08/21/2012 Pt was told not to take this again Other reaction(s): PT WAS TOLD NEVER TO TAKE AGAIN Candesartan High 06/13/2022 Other reaction(s): HYPERKALEMIA Lisinopril Other (Please comment) High 01/16/2014 Hypotension/ Increased creatinine Other reaction(s): INCREASED CREATININE/HYPOTENSION documented as of this encounter (statuses as of 12/25/2022) Medications Medication Sig Dispensed Refills Start Date [...] hemoglobin A1c goal of less than 8.0% ([facility]) Take 1 Tablet by mouth [...] 24 Hour (Imdur)Indications:C oronary artery disease involving [place] coronary artery of [place] heart without angina pectoris,NSTEMI (non-ST elevated myocardial [...] as of this encounter (statuses as of 12/25/2022) Active Problems Problem Noted Date Protein-calorie malnutrition [...] as of this encounter (statuses as of 12/25/2022) Resolved Problems Problem Noted Date Resolved Date Hypertensive kidney disease with chronic kidney disease stage III 10/30/2018 02/12/2020 Overview: Per CKD protocol Chest discomfort 02/23/2015 09/01/2016 Viral URI with cough 03/25/2014 09/01/2016 Accelerate Clinical Trial*[id number] 08/27/2012 08/27/2012 Accelerate Clinical Trial*[id number] 08/27/2012 03/29/2015 Overview: ACCELERATE STUDY. Project # [id number], ORAL AND MAXILLOFACIAL SURGERY: Basil Everett MD. CRC: GENE Whitney. SUMMARY: To test the hypothesis that Evacetrapib 130 mg, in comparison to placebo, reduces the risk of major adverse coronary events in high-risk vascular disease patients. CONTACTS: During normal business hours, contact study staff at ; after hours Barrel Liner via the [facility] hospital remote pilot operator [phone]. 24-hour Global Study Helpline: [phone]. Lipid levels should not be ordered/obtained while this subject is in the Accelerate study. Lipids are being managed in a blinded fashion. If lipid levels are inadvertently obtained, it is important that test results are NOT provided to the patient, study doctor, trauma coordinator, or other study team members. Restricted meds while in the study: 1) niacin > 250 mg, 2) gemfibrozil with a potent [id number]. Hyperglycemia 02/18/2012 01/10/2017 NSTEMI (non-ST elevated myocardial [...] as of this encounter (statuses as of 12/25/2022) Immunizations Name Administration Dates Next Due COVID-19 [...] as of this encounter Progress Notes * Mac Aguilar MD - 12/25/2022 10:30 AM EDT Subjective Teodoro Arceo is a 87 year old male. Chief Complaint Patient presents with Acute Ears check Possible flush HPI: Here to check ears F/u [facility] for hearing aids Needs to clean up his ear wax Irrigated today Known chronic lt shoulder swelling, ? 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 Past Medical History: Diagnosis Date CAD (coronary [...] 12/04/2019 INJECTION SACROILIAC JOINT performed by Allan Persaud DO at [facility] SACROILIAC JOINT INJECT W/GUIDANCE 05/31/2020 INJECTION SACROILIAC [...] PT WAS TOLD NEVER TO TAKE AGAIN Family History Problem Relation Age of Onset Other (pneumonia) Father of pneumonia @ 81 Stroke Mother CVA/ [place] @ 63 Heart Disorder Sister CABG Heart Disorder Sister rheumatic heart disease Heart Disorder Brother Neurological Disorder Sister CVA Family Status Relation Status Fa at age 78 CHF Mo at age 63 CHF Sis at age 47 Sis at age 24 Rheumatic fever Sis at age 80's Bro Alive Son Alive Son Alive Sis (Not Specified) Sis (Not Specified) Bro (Not Specified) Sis (Not Specified) Social History Socioeconomic History Marital status: Spouse name: Jigna Number of children: 2 Years of education: Not on file Highest education level: Not on file 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 1-2 cups coffee per day Occupational Exposure Not Asked Hobby Hazards Not Asked Sleep Concern Not Asked Stress Concern Not Asked Weight Concern Not Asked Special Diet Not Asked Back Care Not Asked Exercise Yes Comment: working Bike Helmet Not Asked Seat Belt No Self-Exams Not Asked Social History Narrative Not on file Social Determinants of Health Financial Resource Strain: Not on file Food Insecurity: No Food Insecurity Worried About Running Out of Food in the Last Year: Never true Ran Out of Food in the Last Year: Never true Transportation Needs: Not on file Physical Activity: Not on file Stress: Not on file Social Connections: Not on file Intimate Partner Violence: Not on file Housing Stability: Not on file Review of Systems Constitutional: Negative for activity change, appetite change, chills, diaphoresis, fatigue, fever and unexpected weight change. HENT: Positive for hearing loss (B/L). Cardiovascular: Negative for leg swelling. Musculoskeletal: Positive for arthralgias and joint swelling (lt shoulder top joint). Skin: Positive for color change (midl erythema,shoulder swelling). Psychiatric/Behavioral: Negative for agitation and behavioral problems. Objective There were no vitals taken for this visit. Physical Exam Constitutional: Appearance: Normal appearance. HENT: Head: Normocephalic and atraumatic. Ears: Comments: Ear wax - irrigated Eyes: Extraocular Movements: Extraocular movements intact. Conjunctiva/sclera: Conjunctivae normal. Pupils: Pupils are equal, round, and reactive to light. Musculoskeletal: General: Swelling and tenderness present. Neurological: General: No focal deficit present. Mental Status: He is alert and oriented to person, place, and time. Gait: Gait abnormal. Psychiatric: Behavior: Behavior normal. ASSESSMENT/PLAN: Bilateral impacted cerumen (Primary) Bilateral hearing loss, unspecified hearing loss type Type 2 diabetes mellitus with stage 3 chronic kidney disease, 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 snf insulinuse, 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 stage 3a or 3b CKD (HCC) Inflammatory polyarthropathies (HCC) Bursitis of left shoulder Cleaned up war wax Cont meds F/u MRI And f/u with ortho Mac Aguilar MD documented in this encounter Plan of Treatment Upcoming Encounters Date Type Specialty Care Team Description 12/25/2022 Telemedicine Orthopedics Bette Ramirez MD [address] [place] [address] 01/06/2023 Imaging Radiology 01/10/2023 Office Visit Orthopedics Aarno Boss MD [address] [place] [address] 01/10/2023 Nurse Only Nephrology Sp, Nurse Nephrology [address] [facility] [place] [address] 01/19/2023 Office Visit Cardiology James Reyes PA-C [address] [place] [address] 02/15/2023 Office Visit Orthopedics Jeison Arteaga DO [address] [place] [address] 03/22/2023 Office Visit Family Medicine Eldon Dowd MD [address] [place] [address] 05/16/2023 Office Visit Hematology Oncology Patricia Conway MD [address] [facility] [place] [address] 07/06/2023 Office Visit Nephrology Lili Rod[facility]guez MD [address] [facility] [place] [address] 07/31/2023 Office Visit Urology [facility]y MD [address] [facility] [address] [place] [address] 10/11/2023 Nurse Only Ancillary [place] Nurse [facility] [address] [place] [address] Health Maintenance Due Date Last Done Comments COVID-19 Vaccine (6 - Moderna series) 03/13/2022 01/16/2022, 07/18/2021, 02/14/2021, Additional history exists DIABETES-EYE EXAM 04/25/2022 04/25/2021, , 12/30/2018 HbA1c 03/23/2023 09/21/2022, 05/31, 12/12/2021, Additional history exists CKD HGB USE SMARTSET 72444 09/15/202309/14, 05/16/2022, 05/16/2022, Additional history exists Depression Screening 10/10/2023 10/09/2022 Diabetic Foot Exam 10/10/2023 10/09/2022, 0 08/30/2021, 10/31/2019, Additional history exists Albumin/Creatinine Ratio 12/16/2023 023, 03/22/2022, 03/30/2021, Additional history exists CKD PHOS USE SMARTSET 90236 12/16/202312/01, 12/12/2021, 12/02/2019, Additional history exists DTaP,Tdap,and [...] as of this encounter Visit Diagnoses Diagnosis Bilateral impacted cerumen- Primary Impacted cerumen Bilateral hearing loss, unspecified hearing loss type Type 2 diabetes mellitus with stage 3 chronic kidney disease, 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 terminal operations supervisor insulin use, 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 stage 3a or 3b CKD (HCC) Inflammatory polyarthropathies (HCC) Unspecified inflammatory polyarthropathy Bursitis of left shoulder Disorders of bursae and tendons in shoulder region, unspecified documented in this encounter Care Teams Pie Dough Roller Relationship Specialty Start Date End Date Eldon Dowd MD [address] [place] [address] PCP - General Family Medicine 12/05/18 documented as of this encounter
--- OUTSIDE RECORDS SUMMARY | 2023-02-27 00:15 | External Medical Summary | Summary of Care ---
Author Name Unknown Organization [facility] Address [address] [place] [address] Phone [phone] Care Team Providers Care Drug Abuse Social Worker Name Role Phone Eldon Dowd MD Primary Care Provider +1- [phone] Reason for Visit * Reason Onset Date Comments Advice 12/21/2022 Encounter Details Date Type Department Care Team Description 12/21/2022 Telephone [facility] [address] [place] [address] Eldon Dowd MD [address] [place] [address] Advice Allergies Active Allergy Reactions Severity Noted Date [...] 24 Hour (Imdur)Indications:C oronary artery disease involving tribal coronary artery of tribal heart without angina pectoris,NSTEMI (non-ST elevated myocardial [...] URI with cough 03/25/2014 09/01/2016 Accelerate Clinical Trial*[id number] 08/27/2012 08/27/2012 Accelerate Clinical Trial*[id number] 08/27/2012 03/29/2015 Overview: ACCELERATE STUDY. Project # [id number], VICE PRESIDENT DIVERSITY: Basil Everett MD. CRC: GENE Whitney. SUMMARY: To test the hypothesis that Evacetrapib 130 mg, in comparison to placebo, reduces the risk of major adverse coronary events in high-risk vascular disease patients. CONTACTS: During normal business hours, contact study staff at ; after hours Special Warfare Combatant Crewman via the [facility] hospital packing machine operator [phone]. 24-hour Global Study Helpline: [phone]. Lipid levels should not be ordered/obtained while this subject is in the Accelerate study. Lipids are being managed in a blinded fashion. If lipid levels are inadvertently obtained, it is important that test results are NOT provided to the patient, study doctor, conference coordinator, or other study team members. Restricted meds while in the study: 1) niacin > 250 mg, 2) gemfibrozil with a potent [id number]. Hyperglycemia 02/18/2012 01/10/2017 NSTEMI (non-ST elevated myocardial [...] encounter Miscellaneous Notes * Telephone Encounter - Ira Garcia LPN - 12/21/2022 3:14 PM EDT Pt also called [facility] office, is requesting that provider 'give him a call tomorrow', offered a televisit, pt agreeable. Call transferred to front end driver to assist with scheduling this. * Telephone Encounter - URI Sanchez - 12/21/2022 2:46 PM EDT Pt has questions about his shoulder and if he should be seen sooner as it seems to be worse. Pt would like to speak with someone about this. His best contact number is [phone]. Thank you. documented in this encounter Plan of Treatment Upcoming Encounters Date Type Specialty Care Team Description 12/25/2022 Nurse Only Nurse [facility] [address] [place] [address] 12/25/2022 Imaging Radiology 12/25/2022 Telemedicine Orthopedics Bette Ramirez MD [address] [place] [address] 01/06/2023 Imaging Radiology 01/10/2023 Office Visit Orthopedics Aaron Boss MD [address] [place] [address] 01/19/2023 Office Visit Cardiology James Reyes PA-C [address] [place] [address] 02/15/2023 Office Visit Orthopedics Jeison Arteaga DO [address] [facility] [place] [address] 03/22/2023 Office Visit Family Medicine Eldon Dowd MD [address] [place] [address] 05/16/2023 Office Visit Hematology Oncology Patricia Conway MD [address] [place] [address] 07/06/2023 Office Visit Nephrology Lili Rodríguez MD [address] [place] [address] 07/31/2023 Office Visit Urology Andrea Antony MD [address] [place] [address] [place] [address] 10/11/2023 Nurse [place] [facility] [place] [facility] [address] [place] [address] Health Maintenance Due Date Last Done Comments COVID-19 Vaccine (6 - Moderna series) 03/13/2022 01/16/2022, 07/18/2021, 02/14/2021, Additional history exists DIABETES-EYE EXAM 04/25/2022 04/25/2021, , 12/30/2018 HbA1c 03/23/2023 09/21/2022, 0308/2022, 12/12/2021, Additional history exists CKD HGB USE SMARTSET 60483 09/15/202309/14, 05/16/2022, 05/16/2022, Additional history exists Depression Screening 10/10/2023 10/09/2022 Diabetic Foot Exam 10/10/2023 10/09/2022, 0 08/30/2021, 10/31/2019, Additional history exists Albumin/Creatinine Ratio 12/16/2023 023, 03/22/2022, 03/30/2021, Additional history exists CKD PHOS USE SMARTSET 69604 12/16/202312/01, 12/12/2021, 12/02/2019, Additional history exists DTaP,Tdap,and [...] filedocumented as of this encounter Care Teams Drug Abuse Social Worker Relationship Specialty Start Date End Date Eldon Dowd MD [address], [place] [phone] PCP - General Family Medicine 12/05/18 documented as of this encounter
--- OUTSIDE RECORDS SUMMARY | 2023-02-27 00:15 | External Medical Summary ---
Author Name Unknown Address Unknown Organization K01:[facility] - [address] [place] [address] Laboratory Report Ordering Provider Test Date Status JAD VELAZQUEZ 12/15/2022 10:57:10 Final Observation Date Value Abnormality Reference (Units ) Status Parathyrin.intact [Mass/volume] in Serum or Plasma 12/15/2022 10:57:10 33 15-65 (pg/mL) Final Performing Location [facility] [address] [facility] [address]
--- OUTSIDE RECORDS SUMMARY | 2023-02-27 00:15 | External Medical Summary ---
Author Name Unknown Address Unknown Organization K01:[facility] [place] [address] [place] [address] Laboratory Report Ordering Provider Test Date Status JAD VELAZQUEZ 12/15/2022 10:57:10 Final Deficient: <20 ng/mL
Ins ufficient: 20-29 ng/mL
Recommended/Optimum:30-50 ng/mL

Vitamin D intoxication is rare. If suspicious of Vitamin D toxicity, evaluation of serum Calcium and PTH is recommended. Observation Date Value Abnormality Reference (Units ) Status 25-OH Vitamin D total 12/15/2022 10:57:10 27 >19 (ng/mL) Final Performing Location [facility] [place] [address] [place] [address]
--- OUTSIDE RECORDS SUMMARY | 2023-02-27 00:16 | External Medical Summary | Summary of Care ---
Author Name Unknown Organization [facility] Address [address] [place] [address] Phone [phone] Care Team Providers Care Trailer Chief Name Role Phone Kinjal Hernández MD Primary Care Provider [phone]- [phone] Reason for Visit * Reason Comments Medication Refill Encounter Details Date Type Department Care Team Description 11/14/2022 Refill [facility] [address] [place] [facility] [place] [address] Kinjal Hernández MD [address] [place] [address] Encounter for long-term (current) use of other medications Allergies Active Allergy Reactions Severity Noted Date Comments Candesartan Cilexetil 01/04/2012 hyperkalemia Atenolol 08/21/2012 Pt was told not to take this again Other reaction(s): PT WAS TOLD NEVER TO TAKE AGAIN Candesartan High 06/13/2022 Other reaction(s): HYPERKALEMIA Lisinopril Other (Please comment) High 01/16/2014 Hypotension/ Increased creatinine Other reaction(s): INCREASED CREATININE/HYPOTENSION documented as of this encounter (statuses as of 11/15/2022) Medications Medication Sig Dispensed Refills Start Date [...] 24 Hour (Imdur)Indications :Coronary artery disease involving [place] coronary artery of [place] heart without angina pectoris,NSTEMI (non-ST elevated myocardial infarction) (HCC) TAKE ONE TABLET BY MOUTH EVERY MORNING. 90 Tablet 3 10/11/2022 Active predniSONE 5 MG Oral Tablet (Deltasone) TAKE 1 TO 3 TABLETS BY MOUTH DAILY 100 Tablet 5 10/16/2022 10/16/2023 Active Cephalexin 500 MG Oral Capsule (Keflex)Indication s:Left leg cellulitis Take 1 Capsule by mouth in the morning and 1 Capsule at noon and 1 Capsule before bedtime. 21 Capsule 0 10/20/2022 Active Sulfamethoxazole-T rimethoprim 400-80 MG Oral Tablet (Bactrim) Take 1 Tablet by mouth in the morning and 1 Tablet before bedtime. 14 Tablet 0 11/03/2022 Active Atorvastatin Calcium 80 MG Oral Tablet (Lipitor)Indicatio ns:Encounter for long-term (current) use of other medications TAKE ONE TABLET BY MOUTH DAILY 90 Tablet 1 11/15/2022 11/15/2023 Active Atorvastatin Calcium 80 MG Oral Tablet (Lipitor)Indicatio ns:Encounter for long-term (current) use of other medications TAKE ONE TABLET BY MOUTH DAILY 90 Tablet 3 12/07/2021 11/14/2022 Discontinue d(Refill) documented as of this encounter (statuses as of 11/15/2022) Active Problems Problem Noted Date Chronic venous [...] as of this encounter (statuses as of 11/15/2022) Resolved Problems Problem Noted Date Resolved Date Hypertensive kidney disease with chronic kidney disease stage III 10/30/2018 02/12/2020 Overview: Per CKD protocol Chest discomfort 02/23/2015 09/01/2016 Viral URI with cough 03/25/2014 09/01/2016 Accelerate Clinical Trial*[id number] 08/27/2012 08/27/2012 Accelerate Clinical Trial*[id number] 08/27/2012 03/29/2015 Overview: ACCELERATE STUDY. Project # [id number], OUTBOUND SALES REPRESENTATIVE: Basil Everett MD. CRC: GENE Whitney. SUMMARY: To test the hypothesis that Evacetrapib 130 mg, in comparison to placebo, reduces the risk of major adverse coronary events in high-risk vascular disease patients. CONTACTS: During normal business hours, contact study staff at ; after hours Take Out Waitress via the [facility] hospital tower operator [phone]. 24-hour Global Study Helpline: [phone]. Lipid levels should not be ordered/obtained while this subject is in the Accelerate study. Lipids are being managed in a blinded fashion. If lipid levels are inadvertently obtained, it is important that test results are NOT provided to the patient, study doctor, relocation coordinator, or other study team members. Restricted meds while in the study: 1) niacin > 250 mg, 2) gemfibrozil with a potent [id number]. Hyperglycemia 02/18/2012 01/10/2017 NSTEMI (non-ST elevated myocardial [...] as of this encounter (statuses as of 11/15/2022) Immunizations Name Administration Dates Next Due COVID-19 [...] encounter Miscellaneous Notes * Telephone Encounter - Myrtle Andrea RPh - 11/15/2022 12:04 PM EDTSigned Prescriptions: Disp Refills Atorvastatin Calcium 80 MG Oral Tablet (Li*90 Tab*1 Sig: TAKE ONE TABLET BY MOUTH DAILYAuthorizing Provider: KINJAL HERNÁNDEZ User: MYRTLE ANDREA------ documented in this encounter Plan of Treatment Upcoming Encounters Date Type Specialty Care Team Description 11/16/2022 Office Visit Orthopedics Jeison Arteaga DO [address] [place] [address] 12/13/2022 Office Visit Orthopedics Bette Ramirez MD [address] [place] [address] 12/15/2022 Office Visit Nephrology Lili Rodríguez MD [address] [place] [address] 01/19/2023 Office Visit Cardiology James Reyes PA-C [address] [place] [address] 03/22/2023 Office Visit Family Medicine Kinjal Hernández MD [address] [place] [address] 05/16/2023 Office Visit Hematology Oncology Patricia Conway MD [address] [place] [address] 10/11/2023 Nurse Only Ancillary [place], Nurse [facility] [address], [place] [phone] Health Maintenance Due Date Last Done Comments COVID-19 Vaccine (6 - Moderna series) 03/13/2022 01/16/2022, 07/18/2021, 02/14/2021, Additional history exists DIABETES-EYE EXAM 04/25/2022 04/25/2021, , 12/30/2018 Influenza Vaccine (FLU shot) (#1) 2022 01/04/2022, 12/28/2020, 12/31/2019, Additional history exists CKD PHOS USE SMARTSET 81415 12/12/202212/01, 12/02/2019, 02/18/2019, Additional history exists Albumin/Creatinine Ratio 03/22/2023 022, 03/30/2021, 12/02/2019, Additional history exists HbA1c 03/23/2023 09/21/2022, 05/31, 12/12/2021, Additional history exists CKD HGB USE SMARTSET 96824 09/15/202309/14, 05/16/2022, 05/16/2022, Additional history exists DIABETES-FOOT EXAM 10/10/2023 10/09/2022, 0 08/30/2021, 10/31/2019, Additional history exists Depression Screening, Annual for Pts 12 and Over 10/10/2023 10/09/2022 DTaP,Tdap,and Td Vaccines (2 - Td or Tdap) 05/24/2025 05/24/2015, 03/14/2006, 05/03/1993 Pneumococcal Vaccine: 65+ Years Completed 11/19/2014, 02/17/2005, 01/31/1998 Zoster Vaccines Completed 07/12/2021, 1005/2018, 01/06/2011 GARDASIL-HPV IMMUNIZATION SERIES Aged Out No [...] as of this encounter Visit Diagnoses Diagnosis Encounter for long-term (current) use of other medications documented in this encounter Care Teams Trailer Chief Relationship Specialty Start Date End Date Kinjal Hernández MD [address] [place] [address] PCP - General Family Medicine 12/05/18 documented as of this encounter
--- OUTSIDE RECORDS SUMMARY | 2023-02-27 00:16 | External Medical Summary | Summary of Care ---
Author Name Unknown Organization [facility] Address [address] [place] [address] Phone [phone] Care Team Providers Care Certified Midwife Name Role Phone Kinjal Hernández MD Primary Care Provider +1- [phone] Reason for Visit * Reason Onset Date Comments Medication Refill 10/20/2022 Encounter Details Date Type Department Care Team Description 10/20/2022 Refill [facility] [address] [place] [address] Kinjal Hernández MD [address] [place] [address] Left leg cellulitis Allergies Active Allergy Reactions Severity Noted Date Comments Candesartan Cilexetil 01/04/2012 hyperkalemia Atenolol 08/21/2012 Pt was told not to take this again Other reaction(s): PT WAS TOLD NEVER TO TAKE AGAIN Candesartan High 06/13/2022 Other reaction(s): HYPERKALEMIA Lisinopril Other (Please comment) High 01/16/2014 Hypotension/ Increased creatinine Other reaction(s): INCREASED CREATININE/HYPOTENSION documented as of this encounter (statuses as of 10/23/2022) Medications Medication Sig Dispensed Refills Start Date [...] 2 puffs every 4-6hrs as needed for wheezing/shortne ss of breath 1 Inhaler 3 09/06/2018 Active Additional Information Patient not taking.Reported on 09/21/2022 Sotalol HCl 80 MG Oral Tablet (Betapace) TAKE 1/2 TABLET BY MOUTH TWICE DAILY 90 Tablet 3 01/24/2022 3 Active Atorvastatin Calcium 80 MG Oral Tablet (Lipitor)Indicatio ns:Encounter for long-term (current) use of other medications TAKE ONE TABLET BY MOUTH DAILY 90 Tablet 3 12/07/2021 3 Active linaGLIPtin 5 MG Oral Tablet [...] 24 Hour (Imdur)Indications :Coronary artery disease involving [place] coronary artery of [place] heart without angina pectoris,NSTEMI (non-ST elevated myocardial infarction) (HCC) TAKE ONE TABLET BY MOUTH EVERY MORNING. 90 Tablet 3 10/11/2022 Active predniSONE 5 MG Oral Tablet (Deltasone) TAKE 1 TO 3 TABLETS BY MOUTH DAILY 100 Tablet 5 10/16/2022 4 Active Cephalexin 500 MG Oral Capsule (Keflex)Indication s:Left leg cellulitis Take 1 Capsule by mouth in the morning and 1 Capsule at noon and 1 Capsule before bedtime. 21 Capsule 0 10/20/2022 Active Cephalexin 500 MG Oral Capsule (Keflex)Indication s:Left leg cellulitis Take 1 Capsule by mouth in the morning and 1 Capsule at noon and 1 Capsule before bedtime. 30 Capsule 0 09/30/2022 3 Discontinue d(Refill) documented as of this encounter (statuses as of 10/23/2022) Active Problems Problem Noted Date Chronic venous [...] as of this encounter (statuses as of 10/23/2022) Resolved Problems Problem Noted Date Resolved Date Hypertensive kidney disease with chronic kidney disease stage III 10/30/2018 02/12/2020 Overview: Per CKD protocol Chest discomfort 02/23/2015 09/01/2016 Viral URI with cough 03/25/2014 09/01/2016 Accelerate Clinical Trial*[id number] 08/27/2012 08/27/2012 Accelerate Clinical Trial*[id number] 08/27/2012 03/29/2015 Overview: ACCELERATE STUDY. Project # [id number], WEIGHMASTER: Basil Everett MD. CRC: GENE Whitney. SUMMARY: To test the hypothesis that Evacetrapib 130 mg, in comparison to placebo, reduces the risk of major adverse coronary events in high-risk vascular disease patients. CONTACTS: During normal business hours, contact study staff at ; after hours Atomic Physics Professor via the [facility] hospital data processing operator [phone]. 24-hour Global Study Helpline: [phone]. Lipid levels should not be ordered/obtained while this subject is in the Accelerate study. Lipids are being managed in a blinded fashion. If lipid levels are inadvertently obtained, it is important that test results are NOT provided to the patient, study doctor, rental coordinator, or other study team members. Restricted meds while in the study: 1) niacin > 250 mg, 2) gemfibrozil with a potent [id number]. Hyperglycemia 02/18/2012 01/10/2017 NSTEMI (non-ST elevated myocardial [...] as of this encounter (statuses as of 10/23/2022) Immunizations Name Administration Dates Next Due COVID-19 mRNA, LNP-s, No Pre serve, 2-Dose Series (Moderna) 06/04/2020,05/07/2020 Covid-19 Mrna, Lnp-s, No Pre serve, Booster (Moderna) 01/16/2022,07/18/2021,02/14/2021 Diptheria/Tetanus (Adult) 05/03/1993 Pneumococcal Conjugate Vacc, 13 Valent (Prevnar) 11/19/2014 Pneumococcal Polysaccharide PPV23 (Pneumovax) 02/17/2005,01/31/1998 Seasonal Influenza Virus Vac cine, Unspecified Formulation [...] encounter Miscellaneous Notes * Telephone Encounter - Debbie Boston LPN - 10/23/2022 10:51 AM EDT Please assist pt with scheduling appt * Telephone Encounter - Kinjal Hernández MD - 10/20/2022 4:14 PM EDTSigned Prescriptions: Disp Refills Cephalexin 500 MG Oral Capsule (Keflex) 21 Cap*0 Sig: Take 1 Capsule by mouth in the morning and 1 Capsule at noon and 1 Capsule before bedtime. Authorizing Provider: KINJAL HERNÁNDEZ * Telephone Encounter - Kinjal Hernández MD - 10/20/2022 4:12 PM EDT Pt was seen by Dr Valiente 09/15/22 and cephalexin was started for possible cellulitis of legs. This was refilled once over the telephone already on 09/30/22. This would be 3rd course and I have not seenhim for this reason. 7 more days sent but pt should be seen next week for follow up. * Telephone Encounter - Brinda William CPhT - 10/20/2022 3:23 PM EDT Did you pend patient's preferred pharmacy and medication before forwarding?yes Pharmacy: [id number] [address] Pending Prescriptions: Disp Refills Cephalexin 500 MG Oral Capsule (Keflex) 30 Cap*0 Sig: Take 1 Capsule by mouth in the morning and 1 Capsule at noon and 1 Capsule before bedtime. Last Visit: 09/15/2022 (in office), 05/03/2020 (telemedicine) Next Visit: 03/22/2023 If no future appointments scheduled, and last appointment is greater than a year ago, please schedule patient for a follow-up appointment Last date the medication was ordered: 09/30/22 Is this request for a controlled substance?No Urine Drug Screen:No results found. However, due to the size of the patient record, not all encounters were searched. Please check Results Review for a complete set of results. Patient Phone Numbers Labs: Lab Results Component Value Date/Time CREAT 0.6 09/14/2022 09:40 AM CREAT 1.2 12/02/2019 09:02 AM POTASSIUM 4.5 09/14/2022 09:40 AM POTASSIUM 4.8 12/02/2019 09:02 AM TSH 2.38 03/22/2022 08:49 AM TSH 2.950 09/03/2018 12:00 AM TSH 2.72 01/08/2012 04:39 PM LDLCALC 70 03/30/2021 08:10 AM LDLCALC UNINTERPRETABLE RESULT 04/19/2018 10:51 AM LDLDIRECT 81 11/23/2020 10:19 AM LDLDIRECT 97 02/18/2019 11:24 AM ALT 27 05/16/2022 04:12 PM ALT 32 08/29/2019 11:50 AM HGBA1C 7.5 (H) 09/21/2022 10:06 AM HGBA1C 7.3 (H) 08/29/2019 11:50 AM documented in this encounter Plan of Treatment Upcoming Encounters Date Type Specialty Care Team Description 11/01/2022 Office Visit Orthopedics Bette Ramirez MD [address] [place] [address] 11/08/2022 Office Visit Cardiology Lukasz Haines, DO [address] [place] [address] 11/16/2022 Office Visit Orthopedics Jeison Arteaga, DO [address] [place] [address] 12/15/2022 Office Visit Nephrology Lili Rodríguez MD [address] [place] [address] 03/22/2023 Office Visit Family Medicine Kinjal Hernández MD [address] [place] [address] 05/16/2023 Office Visit Hematology Oncology Patricia Conway MD [address] [place] [address] 10/11/2023 Nurse Only [facility] Nurse [facility] [address] [place] [address] Health Maintenance Due Date Last Done Comments COVID-19 Vaccine (6 - Moderna series) 03/13/2022 01/16/2022, 07/18/2021, 02/14/2021, Additional history exists DIABETES-EYE EXAM 04/25/2022 04/25/2021, , 12/30/2018 Influenza Vaccine (FLU shot) (#1) 2022 01/04/2022, 12/28/2020, 12/31/2019, Additional history exists CKD PHOS USE SMARTSET 50597 12/12/202212/01, 12/02/2019, 02/18/2019, Additional history exists Albumin/Creatinine Ratio 03/22/2023 022, 03/30/2021, 12/02/2019, Additional history exists HbA1c 03/23/2023 09/21/2022, 05/31, 12/12/2021, Additional history exists CKD HGB USE SMARTSET 46084 09/15/202309/14, 05/16/2022, 05/16/2022, Additional history exists DIABETES-FOOT [...] of this encounter Visit Diagnoses Diagnosis Left leg cellulitis Cellulitis and abscess of leg, except foot documented in this encounter Care Teams Certified Midwife Relationship Specialty Start Date End Date Kinjal Hernández MD [address] [place] [address] PCP - General Family Medicine 12/05/18 documented as of this encounter
--- OUTSIDE RECORDS SUMMARY | 2023-02-27 00:16 | External Medical Summary | Summary of Care ---
Author Name Unknown Organization [facility] Address [address] [place] [address] Phone [phone] Care Team Providers Care Laminating Machine Operator Name Role Phone Kinjal Hernández MD Primary Care Provider [phone]- [phone] Reason for Visit * Reason Comments Medication Refill Encounter Details Date Type Department Care Team Description 10/13/2022 Refill [facility] [address] [place] [id number] Kinajl Hernández MD [address] [place] [address] Allergies Active Allergy Reactions Severity Noted Date Comments Candesartan Cilexetil 01/04/2012 hyperkalemia Atenolol 08/21/2012 Pt was told not to take this again Other reaction(s): PT WAS TOLD NEVER TO TAKE AGAIN Candesartan High 06/13/2022 Other reaction(s): HYPERKALEMIA Lisinopril Other (Please comment) High 01/16/2014 Hypotension/ Increased creatinine Other reaction(s): INCREASED CREATININE/HYPOTENSION documented as of this encounter (statuses as of 10/16/2022) Medications Medication Sig Dispensed Refills Start Date [...] the morning 90 Tablet 3 09/20/2022 Active Cephalexin 500 MG Oral Capsule (Keflex)Indication s:Left leg cellulitis Take 1 Capsule by mouth in the morning and 1 Capsule at noon and 1 Capsule before bedtime. 30 Capsule 0 09/30/2022 Active Metamucil Fiber Oral Tablet Chewable Take by mouth. 0 Active Terazosin HCl 2 MG Oral CapsuleIndications :HTN, goal below 150/90 TAKE ONE CAPSULE BY MOUTH AT BEDTIME 90 Capsule 3 10/11/2022 Active Isosorbide Mononitrate ER 60 MG Oral Tablet Extended Release 24 Hour (Imdur)Indications :Coronary artery disease involving [place] coronary artery of [place] heart without angina pectoris,NSTEMI (non-ST elevated myocardial infarction) (HCC) TAKE ONE TABLET BY MOUTH EVERY MORNING. 90 Tablet 3 10/11/2022 Active predniSONE 5 MG Oral Tablet (Deltasone) TAKE 1 TO 3 TABLETS BY MOUTH DAILY 100 Tablet 5 10/16/2022 4 Active predniSONE 5 MG Oral Tablet (Deltasone) TAKE 1 TO 3 TABLETS BY MOUTH DAILY 100 Tablet 5 11/17/2021 3 Discontinue d(Refill) documented as of this encounter (statuses as of 10/16/2022) Active Problems Problem Noted Date Chronic venous [...] as of this encounter (statuses as of 10/16/2022) Resolved Problems Problem Noted Date Resolved Date Hypertensive kidney disease with chronic kidney disease stage III 10/30/2018 02/12/2020 Overview: Per CKD protocol Chest discomfort 02/23/2015 09/01/2016 Viral URI with cough 03/25/2014 09/01/2016 Accelerate Clinical Trial*[id number] 08/27/2012 08/27/2012 Accelerate Clinical Trial*[id number] 08/27/2012 03/29/2015 Overview: ACCELERATE STUDY. Project # [id number], WOOD MILLER: Basil Everett MD. CRC: GENE Whiteny. SUMMARY: To test the hypothesis that Evacetrapib 130 mg, in comparison to placebo, reduces the risk of major adverse coronary events in high-risk vascular disease patients. CONTACTS: During normal business hours, contact study staff at ; after hours Photo Retoucher via the [facility] feather drying machine operator [phone]. 24-hour Global Study Helpline: [phone]. Lipid levels should not be ordered/obtained while this subject is in the Accelerate study. Lipids are being managed in a blinded fashion. If lipid levels are inadvertently obtained, it is important that test results are NOT provided to the patient, study doctor, conference center coordinator, or other study team members. Restricted meds while in the study: 1) niacin > 250 mg, 2) gemfibrozil with a potent [id number]. Hyperglycemia 02/18/2012 01/10/2017 NSTEMI (non-ST elevated myocardial [...] as of this encounter (statuses as of 10/16/2022) Immunizations Name Administration Dates Next Due COVID-19 [...] encounter Miscellaneous Notes * Telephone Encounter - Kinjal Hernández MD - 10/16/2022 9:11 AM EDTSigned Prescriptions: Disp Refills predniSONE 5 MG Oral Tablet (Deltasone) 100 Ta*5 Sig: TAKE 1 TO 3 TABLETS BY MOUTH DAILYAuthorizing Provider: KINJAL HERNÁNDEZ documented in this encounter Plan of Treatment Upcoming Encounters Date Type Specialty Care Team Description 11/01/2022 Office Visit Orthopedics Bette Ramirez MD [address] [place] [address] 11/08/2022 Office Visit Cardiology Lukasz Haines, [address] [place] [address] 11/16/2022 Office Visit Orthopedics Jeison Arteaga DO [address] [place] [address] 12/15/2022 Office Visit Nephrology Lili Rodríguez MD [address] [place] [address], [place] [address] 03/22/2023 Office Visit Family Medicine Kinjal Hernández MD [address] [place] [address] [place] [address] 05/16/2023 Office Visit [facility]ology [facility]cology [facility] [address] [facility] [address] 10/11/2023 Nurse Only Ancillary Nurse [facility] [address] [facility] [place] [address] Health Maintenance Due Date Last Done Comments COVID-19 Vaccine (6 - Moderna series) 03/13/2022 01/16/2022, 07/18/2021, 02/14/2021, Additional history exists DIABETES-EYE EXAM 04/25/2022 04/25/2021, , 12/30/2018 Influenza Vaccine (FLU shot) (#1) 2022 01/04/2022, 12/28/2020, 12/31/2019, Additional history exists CKD PHOS USE SMARTSET 09457 12/12/202212/01, 12/02/2019, 02/18/2019, Additional history exists Albumin/Creatinine Ratio 03/22/202303/22/2 022, 03/30/2021, 12/02/2019, Additional history exists HbA1c 03/23/2023 09/21/2022, 05/31, 12/12/2021, Additional history exists CKD HGB USE SMARTSET 14717 09/15/202309/14, 05/16/2022, 05/16/2022, Additional history exists DIABETES-FOOT [...] filedocumented as of this encounter Care Teams Laminating Machine Operator Relationship Specialty Start Date End Date Kinjal Hernández MD [address] [place] [address] PCP - General Family Medicine 12/05/18 documented as of this encounter
--- OUTSIDE RECORDS SUMMARY | 2023-02-27 00:16 | External Medical Summary | Summary of Care ---
Author Name Unknown Organization [facility] Address [address] [facility] [place] [address] Phone [phone] Care Team Providers Care Machine Gunner Name Role Phone Eldon Dowd MD Primary Care Provider [phone]- [phone] Reason for Visit * Reason Comments Medication Refill Encounter Details Date Type Department Care Team Description 10/11/2022 Refill Cardiology, [facility] [address] [facility] [place] [address] Erick Landers, Mike Herrera, Coronary artery disease involving [place] coronary artery of [place] heart without angina pectoris; NSTEMI (non-ST elevated myocardial infarction) (HCC) Allergies Active Allergy Reactions Severity Noted Date Comments Candesartan Cilexetil 01/04/2012 hyperkalemia Atenolol 08/21/2012 Pt was told not to take this again Other reaction(s): PT WAS TOLD NEVER TO TAKE AGAIN Candesartan High 06/13/2022 Other reaction(s): HYPERKALEMIA Lisinopril Other (Please comment) High 01/16/2014 Hypotension/ Increased creatinine Other reaction(s): INCREASED CREATININE/HYPOTENSION documented as of this encounter (statuses as of 10/11/2022) Medications Medication Sig Dispensed Refills Start Date [...] DAILY 90 Tablet 3 12/07/2021 3 Active predniSONE 5 MG Oral Tablet (Deltasone) TAKE 1 TO 3 TABLETS BY MOUTH DAILY 100 Tablet 5 11/17/2021 3 Active Additional Information Patient taking differently: 10 mg Oral Daily(AM), Reported on 04/13/2022 linaGLIPtin 5 MG Oral Tablet (Tradjenta)Indicat ions:Type [...] 24 Hour (Imdur)Indications :Coronary artery disease involving [place] coronary artery of [place] heart without angina pectoris,NSTEMI (non-ST elevated myocardial infarction) (HCC) TAKE ONE TABLET BY MOUTH EVERY MORNING. 90 Tablet 3 10/11/2022 Active Isosorbide Mononitrate ER 60 MG Oral Tablet Extended Release 24 Hour (IMDUR)Indications :Coronary artery disease involving [place] coronary artery of [place] heart without angina pectoris,NSTEMI (non-ST elevated myocardial infarction) (HCC) TAKE ONE TABLET BY MOUTH EVERY MORNING. 90 Tab 3 01/26/2020 3 Discontinue d(Refill) documented as of this encounter (statuses as of 10/11/2022) Active Problems Problem Noted Date Chronic venous [...] as of this encounter (statuses as of 10/11/2022) Resolved Problems Problem Noted Date Resolved Date Hypertensive kidney disease with chronic kidney disease stage III 10/30/2018 02/12/2020 Overview: Per CKD protocol Chest discomfort 02/23/2015 09/01/2016 Viral URI with cough 03/25/2014 09/01/2016 Accelerate Clinical Trial*[id number] 08/27/2012 08/27/2012 Accelerate Clinical Trial*[id number] 08/27/2012 03/29/2015 Overview: ACCELERATE STUDY. Project # [id number], PRODUCT MARKETING ENGINEER: Basil Everett MD. CRC: GENE Whitney. SUMMARY: To test the hypothesis that Evacetrapib 130 mg, in comparison to placebo, reduces the risk of major adverse coronary events in high-risk vascular disease patients. CONTACTS: During normal business hours, contact study staff at ; after hours Photographic Equipment Assembler via the [facility] hospital ctc operator [phone]. 24-hour Global Study Helpline: [phone]. Lipid levels should not be ordered/obtained while this subject is in the Accelerate study. Lipids are being managed in a blinded fashion. If lipid levels are inadvertently obtained, it is important that test results are NOT provided to the patient, study doctor, ocean export coordinator, or other study team members. Restricted meds while in the study: 1) niacin > 250 mg, 2) gemfibrozil with a potent [id number]. Hyperglycemia 02/18/2012 01/10/2017 NSTEMI (non-ST elevated myocardial [...] as of this encounter (statuses as of 10/11/2022) Immunizations Name Administration Dates Next Due COVID-19 [...] Telephone Encounter - Matilde Patterson PA-C - 10/11/2022 6:02 PM EDTSigned Prescriptions: Disp Refills Isosorbide Mononitrate ER 60 MG Oral Table*90 Tab*3 Sig: TAKE ONE TABLET BY MOUTH EVERY MORNING. Authorizing Provider: MATILDE PATTERSON * Telephone Encounter - Zenia Rojas LPN - 10/11/2022 12:46 PM EDTPending Prescriptions: Disp Refills Isosorbide Mononitrate ER 60 MG Oral Table*90 Tab*3 Sig: TAKE ONE TABLET BY MOUTH EVERY MORNING. documented in this encounter Plan of Treatment Upcoming Encounters Date Type Specialty Care Team Description 11/01/2022 Office Visit Orthopedics Bette Ramirez MD [address] [place] [address] 11/08/2022 Office Visit Cardiology Lukasz Haines, DO [address] [place] [address] 11/16/2022 Office Visit Orthopedics Jeison Arteaga, DO [address] [place] [address] 12/15/2022 Office Visit Nephrology Lili Rodríguez MD [address] [place] [address] 03/22/2023 Office Visit Family Medicine Eldon Dowd MD [address] [place] [address] 05/16/2023 Office Visit Hematology Oncology Patricia Conway MD [address] [place] [address] 10/11/2023 Nurse Only Ancillary [place], Nurse [facility] [address] [place] [address] Health Maintenance Due Date Last Done Comments COVID-19 Vaccine (6 - Moderna series) 03/13/2022 01/16/2022, 07/18/2021, 02/14/2021, Additional history exists DIABETES-EYE EXAM 04/25/2022 04/25/2021, , 12/30/2018 Influenza Vaccine (FLU shot) (#1) 2022 01/04/2022, 12/28/2020, 12/31/2019, Additional history exists CKD PHOS USE SMARTSET 92740 12/12/202212/01, 12/02/2019, 02/18/2019, Additional history exists Albumin/Creatinine Ratio 03/22/202303/22/2 022, 03/30/2021, 12/02/2019, Additional history exists HbA1c 03/23/2023 09/21/2022, 05/31, 12/12/2021, Additional history exists CKD HGB USE SMARTSET 80308 09/15/202309/14, 05/16/2022, 05/16/2022, Additional history exists DIABETES-FOOT [...] as of this encounter Visit Diagnoses Diagnosis Coronary artery disease involving [place] coronary artery of [place] heart without angina pectoris NSTEMI (non-ST elevated myocardial infarction) (HCC) Acute myocardial infarction, subendocardial infarction, episode of care unspecified documented in this encounter Care Teams Machine Gunner Relationship Specialty Start Date End Date Eldon Dowd MD [address] [place] [address] PCP - General Family Medicine 12/05/18 documented as of this encounter
--- OUTSIDE RECORDS SUMMARY | 2023-02-27 00:16 | External Medical Summary | Summary of Care ---
Author Name Unknown Organization [facility] Address [address] [place] [address] Phone [phone] Care Team Providers Care Electric Deicer Inspector Name Role Phone Kinjal Hernández MD Primary Care Provider [phone]- [phone] Reason for Visit * Reason Onset Date Comments Medication Refill 10/20/2022 Encounter Details Date Type Department Care Team Description 10/20/2022 Refill [facility] [address] [place] [address] Kinjal Hernández MD [address] [place] [address] Left leg cellulitis Allergies Active Allergy Reactions Severity Noted Date Comments Candesartan Cilexetil 01/04/2012 hyperkalemia Atenolol 08/21/2012 Pt was told not to take this again Other reaction(s): PT WAS TOLD NEVER TO TAKE AGAIN Candesartan High 06/13/2022 Other reaction(s): HYPERKALEMIA Lisinopril Other (Please comment) High 01/16/2014 Hypotension/ Increased creatinine Other reaction(s): INCREASED CREATININE/HYPOTENSION documented as of this encounter (statuses as of 10/20/2022) Medications Medication Sig Dispensed Refills Start Date [...] 24 Hour (Imdur)Indications :Coronary artery disease involving [place] coronary artery of [place] heart without angina pectoris,NSTEMI (non-ST elevated myocardial [...] as of this encounter (statuses as of 10/20/2022) Active Problems Problem Noted Date Chronic venous [...] as of this encounter (statuses as of 10/20/2022) Resolved Problems Problem Noted Date Resolved Date Hypertensive kidney disease with chronic kidney disease stage III 10/30/2018 02/12/2020 Overview: Per CKD protocol Chest discomfort 02/23/2015 09/01/2016 Viral URI with cough 03/25/2014 09/01/2016 Accelerate Clinical Trial*[id number] 08/27/2012 08/27/2012 Accelerate Clinical Trial*[id number] 08/27/2012 03/29/2015 Overview: ACCELERATE STUDY. Project # [id number], PLATFORM INSPECTOR: Basil Everett MD. CRC: GENE Whitney. SUMMARY: To test the hypothesis that Evacetrapib 130 mg, in comparison to placebo, reduces the risk of major adverse coronary events in high-risk vascular disease patients. CONTACTS: During normal business hours, contact study staff at ; after hours Java J2Ee Technical Lead via the [facility] hospital temperature logging operator [phone]. 24-hour Global Study Helpline: [phone]. Lipid levels should not be ordered/obtained while this subject is in the Accelerate study. Lipids are being managed in a blinded fashion. If lipid levels are inadvertently obtained, it is important that test results are NOT provided to the patient, study doctor, preparation center coordinator, or other study team members. Restricted meds while in the study: 1) niacin > 250 mg, 2) gemfibrozil with a potent [id number]. Hyperglycemia 02/18/2012 01/10/2017 NSTEMI (non-ST elevated myocardial [...] as of this encounter (statuses as of 10/20/2022) Immunizations Name Administration Dates Next Due COVID-19 [...] preferred pharmacy and medication before forwarding?yes Pharmacy: [id number] [address] Pending Prescriptions: Disp Refills [...] Ramirez MD [address] [place] [address] 11/08/2022 Office Visit Cardiology Lukasz Haines DO [address] [place] [address] 11/16/2022 Office Visit Orthopedics Jeison Arteaga, DO [address] [place] [address] 12/15/2022 Office Visit Nephrology Lili Rodríguez MD [address] [place] [address] 03/22/2023 Office Visit Family Medicine Kinjal Hernández MD [address] [place] [address] 05/16/2023 Office Visit Hematology Oncology Patricia Conway MD [address] [place] [address] 10/11/2023 Nurse Only [facility], Nurse [facility] [address] [place] [address] Health Maintenance Due Date Last Done Comments COVID-19 Vaccine (6 - Moderna series) 03/13/2022 01/16/2022, 07/18/2021, 02/14/2021, Additional history exists DIABETES-EYE EXAM 04/25/2022 04/25/2021, , 12/30/2018 Influenza Vaccine (FLU shot) (#1) 2022 01/04/2022, 12/28/2020, 12/31/2019, Additional history exists CKD PHOS USE SMARTSET 72444 12/12/202212/01, 12/02/2019, 02/18/2019, Additional history exists Albumin/Creatinine Ratio 03/22/2023 022, 03/30/2021, 12/02/2019, Additional history exists HbA1c 03/23/2023 09/21/2022, 05/31, 12/12/2021, Additional history exists CKD HGB USE SMARTSET 25132 09/15/202309/14, 05/16/2022, 05/16/2022, Additional history exists DIABETES-FOOT [...] foot documented in this encounter Care Teams Electric Deicer Inspector Relationship Specialty Start Date End Date Kinjal Hernández MD [address] [place], [place] [id number] PCP - General Family Medicine 12/05/18 documented as of this encounter
--- OUTSIDE RECORDS SUMMARY | 2023-02-27 00:16 | External Medical Summary | Summary of Care ---
Author Name Unknown Organization [facility] Address [address] [place] [address] Phone [phone] Care Team Providers Care Counselor Aide Name Role Phone Eldon Dowd MD Primary Care Provider +1- [phone] Reason for Visit * Reason Comments Follow Up Acute Cellulitis in his le gsLegs are numbLeft upper shoulder he has a spot that is draining pus Encounter Details Date Type Department Care Team Description 11/03/2022 Office Visit [facility] [address] [place] [address] Mac Aguilar MD [address] [place] [address] Abscess of left shoulder*; Drainage from wound; Type 2 diabetes mellitus with hemoglobin A1c goal of less than 8.0% (HCC); Inflammatory polyarthropathies (HCC); Chronic diastolic congestive heart failure (HCC); Old myocardial infarct; Paroxysmal atrial fibrillation ([facility]) Allergies Active Allergy Reactions Severity Noted Date Comments Candesartan Cilexetil 01/04/2012 hyperkalemia Atenolol 08/21/2012 Pt was told not to take this again Other reaction(s): PT WAS TOLD NEVER TO TAKE AGAIN Candesartan High 06/13/2022 Other reaction(s): HYPERKALEMIA Lisinopril Other (Please comment) High 01/16/2014 Hypotension/ Increased creatinine Other reaction(s): INCREASED CREATININE/HYPOTENSION documented as of this encounter (statuses as of 11/03/2022) Medications Medication Sig Dispensed Refills Start Date [...] DAILY 90 Tablet 3 01/24/2022 01/24/2023 Active Atorvastatin Calcium 80 MG Oral Tablet (Lipitor)Indications :Encounter for long-term (current) use of other medications TAKE ONE TABLET BY MOUTH DAILY 90 Tablet 3 12/07/2021 12/07/2022 Active linaGLIPtin 5 MG Oral Tablet (Tradjenta)Indicatio [...] 24 Hour (Imdur)Indications:C oronary artery disease involving [place] coronary artery of [place] heart without angina pectoris,NSTEMI (non-ST elevated myocardial [...] before bedtime. 14 Tablet 0 11/03/2022 Active documented as of this encounter (statuses as of 11/03/2022) Active Problems Problem Noted Date Chronic venous [...] as of this encounter (statuses as of 11/03/2022) Resolved Problems Problem Noted Date Resolved Date Hypertensive kidney disease with chronic kidney disease stage III 10/30/2018 02/12/2020 Overview: Per CKD protocol Chest discomfort 02/23/2015 09/01/2016 Viral URI with cough 03/25/2014 09/01/2016 Accelerate Clinical Trial*[id number] 08/27/2012 08/27/2012 Accelerate Clinical Trial*[id number] 08/27/2012 03/29/2015 Overview: ACCELERATE STUDY. Project # [id number], PRODUCT TRANSFER PUMPER: Basil Everett MD. CRC: GENE Whitney. SUMMARY: To test the hypothesis that Evacetrapib 130 mg, in comparison to placebo, reduces the risk of major adverse coronary events in high-risk vascular disease patients. CONTACTS: During normal business hours, contact study staff at ; after hours University Partnership Rep via the [facility] hospital explosive operator bomb [phone]. 24-hour Global Study Helpline: [phone]. Lipid levels should not be ordered/obtained while this subject is in the Accelerate study. Lipids are being managed in a blinded fashion. If lipid levels are inadvertently obtained, it is important that test results are NOT provided to the patient, study doctor, account services coordinator, or other study team members. Restricted meds while in the study: 1) niacin > 250 mg, 2) gemfibrozil with a potent [id number]. Hyperglycemia 02/18/2012 01/10/2017 NSTEMI (non-ST elevated myocardial [...] as of this encounter (statuses as of 11/03/2022) Immunizations Name Administration Dates Next Due COVID-19 [...] Sign Reading Time Taken Comments Blood Pressure 122/72 11/03/2022 9:08 AM EDT Pulse 78 11/03/2022 9:08 AM EDT Temperature 36.8 C (98.2 F) 11/03/2022 9:08 AM ED T Respiratory Rate 18 11/03/2022 9:08 AM EDT Oxygen Saturation 98% 11/03/2022 9:08 AM EDT Inhaled Oxygen Concentration - - Weight 67.1 kg (148 lb) 11/03/2022 9:08 AM EDT Height - - Body Mass Index 22.5 09/15/2022 10:11 AM EDT documented in this encounter Progress Notes * Mac Aguilar MD - 11/03/2022 9:35 AM EDT Images from the original note were not included. Subjective Teodoro Arceo is a 87 year old male. 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 Known old [place], CHF, paroxysmal afib , HTN , CAD Currently no leg swelling PMH: Patient Active Problem List Diagnosis Code 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 Dyslipidemia E78.5 CAD (coronary artery disease) I25.10 HTN, goal below 130/80 I10 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 ([facility]) M06.4 Type 2 diabetes mellitus with hemoglobin A1c goal of less than 8.0% ([facility]) E11.9 Paroxysmal atrial fibrillation ([facility]) I48.0 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 Chronic diastolic congestive heart failure ([facility]) I50.32 Renal osteodystrophy N25.0 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 Hypertensive kidney disease with stage 3a chronic kidney disease I12.9, N18.31 Chronic kidney disease, stage 3a ([facility]) N18.31 Type 2 diabetes mellitus with stage 3 chronic kidney disease ([facility]) E11.22, N18.30 Chronic venous insufficiency of lower extremity I87.2 Current Outpatient Medications Medication Sig Dispense Refill [...] BASE) MCG/ACT inhaler Use 2 puffs every 4-6hrs as needed for wheezing/shortness of breath 1 Inhaler 3 Sotalol HCl 80 MG Oral Tablet (Betapace) TAKE 1/2 TABLET BY MOUTH TWICE DAILY 90 Tablet 3 Atorvastatin Calcium 80 MG Oral Tablet (Lipitor) TAKE ONE TABLET BY MOUTH DAILY 90 Tablet 3 linaGLIPtin 5 MG [...] Release 24 Hour (Imdur) TAKE ONE TABLET BYMOUTH EVERY MORNING. 90 Tablet 3 predniSONE 5 MG Oral Tablet (Deltasone) TAKE 1 TO 3 TABLETS BY MOUTH DAILY 100 Tablet 5 Cephalexin 500 MG Oral Capsule (Keflex) Take 1 Capsule by mouth in the morning and 1 Capsule atnoon and 1 Capsule before bedtime. 21 Capsule 0 Sulfamethoxazole-Trimethoprim 400-80 MG Oral Tablet (Bactrim) Take 1 Tablet by mouth in the morning and 1 Tablet before bedtime. 14 Tablet 0 No current facility-administered medications for this visit. [...] of pneumonia @ 81 Stroke Mother CVA/ [place] @ 63 Heart Disorder Sister CABG Heart [...] diaphoresis, fatigue, fever and unexpected weight change. Respiratory: Negative for cough, chest tightness, shortness of breath and wheezing. Cardiovascular: Negative for chest pain, palpitations and leg swelling (on and off but not currently ). Gastrointestinal: Negative for abdominal distention and abdominal pain. Musculoskeletal: Positive for arthralgias, gait problem (walker or wheelchair ) and joint swelling (lt shoulder, top , not joint effusion ). Neurological: Positive for weakness (general ). Negative for numbness. Psychiatric/Behavioral: Negative for agitation and behavioral problems. Objective BP 122/72 | Pulse 78 | Temp 36.8 C (98.2 F) (Infrared ) | Resp 18 | Wt 67.1 kg (148 lb) | SpO2 98% | BMI 22.50 kg/m | BSA 1.79 m Physical Exam Constitutional: General: He is not in acute distress. Appearance: Normal appearance. He is not ill-appearing, toxic-appearing or diaphoretic. HENT: Head: Normocephalic and atraumatic. Nose: Nose normal. Eyes: Extraocular Movements: Extraocular movements intact. Conjunctiva/sclera: Conjunctivae normal. Pupils: Pupils are equal, round, and reactive to light. Musculoskeletal: General: Swelling present. No tenderness. Left shoulder: Swelling present. No effusion or tenderness. Arms: Right lower leg: No edema. Left lower leg: No edema. Skin: Findings: Lesion present. No erythema. Neurological: General: No focal deficit present. Mental Status: He is alert and oriented to person, place, and time. Cranial Nerves: No cranial nerve deficit. Motor: Weakness (legs, general ) present. Gait: Gait abnormal. Psychiatric: Behavior: Behavior normal. ASSESSMENT/PLAN: Abscess of left shoulder (Primary) Drainage from wound Type 2 diabetes mellitus with hemoglobin A1c goal of less than 8.0% (HCC) Inflammatory polyarthropathies (HCC) Chronic diastolic congestive heart failure (HCC) Old myocardial infarct Paroxysmal atrial fibrillation (HCC) Other orders - Sulfamethoxazole-Trimethoprim 400-80 MG Oral Tablet (Bactrim); Take 1 Tablet by mouth in the morning and 1 Tablet before bedtime. bactrim for 7 days with probiotic Update me in one week If still infection sign , will get shoulder xray again F/u with ortho Check glucose Cont all other meds Mac Aguilar MD documented in this encounter Nursing Notes * Irene Agustin LPN - 11/03/2022 9:02 AM EDT Chief Complaint Patient presents with Follow Up Acute Cellulitis in his legs Legs are numb Left upper shoulder he has a spot that is draining pus documented in this encounter Plan of Treatment Upcoming Encounters Date Type Specialty Care Team Description 11/16/2022 Office Visit Orthopedics Jeison Arteaga DO [address] [place] [address] 12/13/2022 Office Visit Orthopedics Bette Ramirez MD [address] [place] [address] 12/15/2022 Office Visit Nephrology Lili Rodríguez MD [address] [place] [address] 01/19/2023 Office Visit Cardiology James Reyes PA-C [address] [place] [address] 03/22/2023 Office Visit Family Medicine Eldon Dowd MD [address] [place] [address] 05/16/2023 Office Visit Hematology Oncology Patricia Conway MD [address] [place] [address] 10/11/2023 Nurse Only Gini Tapia [facility] [address] [place] [address] Health Maintenance Due Date Last Done Comments COVID-19 Vaccine (6 - Moderna series) 03/13/2022 01/16/2022, 07/18/2021, 02/14/2021, Additional history exists DIABETES-EYE EXAM 04/25/2022 04/25/2021, , 12/30/2018 Influenza Vaccine (FLU shot) (#1) 2022 01/04/2022, 12/28/2020, 12/31/2019, Additional history exists CKD PHOS USE SMARTSET 50224 12/12/202212/01, 12/02/2019, 02/18/2019, Additional history exists Albumin/Creatinine Ratio 03/22/2023 022, 03/30/2021, 12/02/2019, Additional history exists HbA1c 03/23/2023 09/21/2022, 05/31, 12/12/2021, Additional history exists CKD HGB USE SMARTSET 94868 09/15/202309/14, 05/16/2022, 05/16/2022, Additional history exists DIABETES-FOOT [...] as of this encounter Visit Diagnoses Diagnosis Abscess of left shoulder- Primary Cellulitis and abscess of upper arm and forearm Drainage from wound Open wound(s) (multiple) of unspecified site(s), without mention of complication Type 2 diabetes mellitus with hemoglobin A1c goal of less than 8.0% (HCC) Inflammatory polyarthropathies (HCC) Unspecified inflammatory polyarthropathy Chronic diastolic congestive heart failure (HCC) Chronic diastolic heart failure Old myocardial infarct Old myocardial infarction Paroxysmal atrial fibrillation (HCC) Atrial fibrillation documented in this encounter Care Teams Counselor Aide Relationship Specialty Start Date End Date Eldon Dowd MD [address] [place] [id number] PCP - General Family Medicine 12/05/18 documented as of this encounter"
--- OUTSIDE RECORDS SUMMARY | 2023-02-27 00:16 | External Medical Summary | Summary of Care ---
Author Name Unknown Organization [facility] Address [address] [place] [address] Phone [phone] Care Team Providers Care Rail Car Repair Carman Name Role Phone Kinjal Hernández MD Primary Care Provider [phone]- [phone] Reason for Visit * Reason Onset Date Comments Medication Refill 10/20/2022 Encounter Details Date Type Department Care Team Description 10/20/2022 Refill [facility] [address] [place] [address] Kinjal Hernández MD [address] [place] [address] Left leg cellulitis Allergies Active [...] 24 Hour (Imdur)Indications :Coronary artery disease involving [place] coronary artery of [place] heart without angina pectoris,NSTEMI (non-ST elevated myocardial [...] URI with cough 03/25/2014 09/01/2016 Accelerate Clinical Trial*[id number] 08/27/2012 08/27/2012 Accelerate Clinical Trial*[id number] 08/27/2012 03/29/2015 Overview: ACCELERATE STUDY. Project # [id number], RELOCATION MANAGER: Basil Everett MD. CRC: GENE Whitney. SUMMARY: To test the hypothesis that Evacetrapib 130 mg, in comparison to placebo, reduces the risk of major adverse coronary events in high-risk vascular disease patients. CONTACTS: During normal business hours, contact study staff at ; after hours Maintenance Mechanic Millwright via the [facility] hospital cutter operator tile [phone]. 24-hour Global Study Helpline: [phone]. Lipid levels should not be ordered/obtained while this subject is in the Accelerate study. Lipids are being managed in a blinded fashion. If lipid levels are inadvertently obtained, it is important that test results are NOT provided to the patient, study doctor, corporate coordinator, or other study team members. Restricted meds while in the study: 1) niacin > 250 mg, 2) gemfibrozil with a potent [id number]. Hyperglycemia 02/18/2012 01/10/2017 NSTEMI (non-ST elevated myocardial [...] * Telephone Encounter - URI Chery - 10/23/2022 11:23 AM EDT Scheduled. 10/23/2022 * Telephone Encounter - Debbie Boston LPN [...] up. * Telephone Encounter - Brinda William [facility] - 10/20/2022 3:23 PM EDT Did you pend patient's preferred pharmacy and medication before forwarding?yes Pharmacy: [id number] Pending Prescriptions: [...] Ramirez MD [address] [place] [address] 11/03/2022 Office Visit Family Medicine Mac Aguilar MD [address] [place] [address] 11/08/2022 Office Visit Cardiology Lukasz Haines DO [address] [place] [address] 11/16/2022 Office Visit Orthopedics Jeison Arteaga DO [address] [place] [address] 12/15/2022 Office Visit Nephrology Lili Rodríguez MD [address] [place] [address] 03/22/2023 Office Visit Family Medicine Kinjal Hern[facility]dez [facility] [address] [facility] [place] [address] 05/16/2023 Office Visit Hematology Oncology Patricia Conway MD [address] [place] [address] 10/11/2023 Nurse Only [facility] [address] [facility] [address] Health Maintenance Due Date Last Done Comments COVID-19 Vaccine (6 - Moderna series) 03/13/2022 01/16/2022, 07/18/2021, 02/14/2021, Additional history exists DIABETES-EYE EXAM 04/25/2022 04/25/2021, , 12/30/2018 Influenza Vaccine (FLU shot) (#1) 2022 01/04/2022, 12/28/2020, 12/31/2019, Additional history exists CKD PHOS USE SMARTSET 90937 12/12/202212/01, 12/02/2019, 02/18/2019, Additional history exists Albumin/Creatinine Ratio 03/22/2023 022, 03/30/2021, 12/02/2019, Additional history exists HbA1c 03/23/2023 09/21/2022, 05/31, 12/12/2021, Additional history exists CKD HGB USE SMARTSET 44807 09/15/202309/14, 05/16/2022, 05/16/2022, Additional history exists DIABETES-FOOT [...] foot documented in this encounter Care Teams Rail Car Repair Carman Relationship Specialty Start Date End Date Kinjal Hernández MD [address] [place], [place] [phone] PCP - General Family Medicine 12/05/18 documented as of this encounter
--- OUTSIDE RECORDS SUMMARY | 2023-02-27 00:16 | External Medical Summary | Summary of Care ---
Author Name Unknown Organization [facility] Address [address] [place] [address] Phone [phone] Care Team Providers Care Senior Solutions Engineer Name Role Phone Kinjal Hernández MD Primary Care Provider +1- [phone] Reason for Visit * Reason Comments Medication Refill Encounter Details Date Type Department Care Team Description 10/11/2022 Refill Pharmacy, [facility] [address] [facility] [place] [id number] Kinjal Hernández MD [address] [place], [place] [phone] HTN, goal below 150/90 Allergies Active Allergy Reactions Severity Noted Date [...] Additional Information Patient not taking.Reported on 09/21/2022 Isosorbide Mononitrate ER 60 MG Oral Tablet Extended Release 24 Hour (IMDUR)Indications :Coronary artery disease involving [place] coronary artery of [place] heart without angina pectoris,NSTEMI (non-ST elevated myocardial infarction) ([facility]) TAKE ONE TABLET BY MOUTH EVERY MORNING. 90 Tab 3 01/26/2020 Active Sotalol HCl 80 MG Oral Tablet [...] AT BEDTIME 90 Capsule 3 10/11/2022 Active Terazosin HCl 2 MG Oral CapsuleIndications :HTN, goal below 150/90 TAKE ONE CAPSULE BY MOUTH AT BEDTIME 90 Capsule 1 04/12/2022 3 Discontinue d(Refill) documented as of this [...] URI with cough 03/25/2014 09/01/2016 Accelerate Clinical Trial*[id number] 08/27/2012 08/27/2012 Accelerate Clinical Trial*[id number] 08/27/2012 03/29/2015 Overview: ACCELERATE STUDY. Project # [id number], SKID MACHINE OPERATOR: Basil Everett MD. CRC: GENE Whitney. SUMMARY: To test the hypothesis that Evacetrapib 130 mg, in comparison to placebo, reduces the risk of major adverse coronary events in high-risk vascular disease patients. CONTACTS: During normal business hours, contact study staff at ; after hours Statistical Financial Analyst via the [place] hospital refinery operator assistant [phone]. 24-hour Global Study Helpline: [phone]. Lipid levels should not be ordered/obtained while [...] 250 mg, 2) gemfibrozil with a potent [id number]. Hyperglycemia 02/18/2012 01/10/2017 NSTEMI (non-ST elevated myocardial [...] Telephone Encounter - Kinjal Hernández MD - 10/11/2022 1:32 PM EDTSigned Prescriptions: Disp Refills Terazosin HCl 2 MG Oral Capsule 90 Cap*3 Sig: TAKE ONE CAPSULE BY MOUTH AT BEDTIME Authorizing Provider: KINJAL HERNÁNDEZ * Telephone Encounter - Zenia Rojas LPN - 10/11/2022 12:45 PM EDTPending Prescriptions: Disp Refills Terazosin HCl 2 MG Oral Capsule 90 Cap*1 Sig: TAKE ONE CAPSULE BY MOUTH AT BEDTIME * Telephone Encounter - Zenia Rojas LPN - 10/11/2022 12:44 PM EDT Provider to address: Kinjal Hernández MD Reason for Call: Medication Refill Contact: My Carloser Contact Type: Medication Outcome: Pending Prescriptions: Disp Refills Terazosin HCl 2 MG Oral Capsule 90 Cap*1 Sig: TAKE ONE CAPSULE BY MOUTH AT BEDTIME Last Visit: Visit date not found (in office), Visit date not found (telemedicine) Next Visit: Visit date not found Last date the medication was ordered: 04/12/2022 Patient Active Problem List Diagnosis Code 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 Dyslipidemia E78.5 CAD (coronary artery disease) I25.10 HTN, goal below 130/80 I10 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 Type 2 diabetes mellitus with hemoglobin A1c goal of less than 8.0% ([facility]) E11.9 Paroxysmal atrial fibrillation ([facility]) I48.0 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 Chronic diastolic congestive heart failure ([facility]) I50.32 Renal osteodystrophy N25.0 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 Hypertensive kidney disease with stage 3a chronic kidney disease I12.9, N18.31 Chronic kidney disease, stage 3a (HCC) N18.31 Type 2 diabetes mellitus with stage 3 chronic kidney disease ([facility]) E11.22, N18.30 Chronic venous insufficiency of lower extremity I87.2 Labs: Lab Results Component Value Date/Time CREATININE - [facility] 0.6 09/14/2022 09:40 AM CREATININE - [facility] 1.2 12/02/2019 09:02 AM CREATININE, RANDOM URINE - [facility] 27 03/22/2022 08:49 AM CREATININE, RANDOM URINE - [facility] 122 12/02/2019 09:04 AM Lab Results Component Value Date/Time POTASSIUM - [facility] 4.5 09/14/2022 09:40 AM POTASSIUM - [facility] 4.8 12/02/2019 09:02 AM Lab Results Component Value Date/Time TSH - [facility] 2.38 03/22/2022 08:49 AM TSH - [facility] 2.72 01/08/2012 04:39 PM TSH - OUT[facility]IDE LAB 2.950 09/03/2018 12:00 AM Lab Results Component Value Date/Time LDL CHOLESTEROL (CALCULATED) - [facility] 70 03/30/2021 08:10 AM LDL CHOLESTEROL (CALCULATED) - [facility] UNINTERPRETABLE RESULT 04/19/2018 10:51 AM LDL CHOLESTEROL (CALCULATED) - [facility] 100 03/07/2017 09:12 AM LDL CHOLESTEROL (DIRECT MEASURE) - [facility] 81 11/23/2020 10:19 AM LDL CHOLESTEROL (DIRECT MEASURE) - [facility] 97 02/18/2019 11:24 AM LDL CHOLESTEROL (DIRECT MEASURE) - [facility] 97 04/19/2018 10:51 AM LDL CHOLESTEROL (DIRECT MEASURE) - [facility] NOT APPLICABLE 03/07/2017 09:12 AM Lab Results Component Value Date/Time ALT - [facility] 27 05/16/2022 04:12 PM ALT - [facility] 32 08/29/2019 11:50 AM Hemoglobin AIC Results: Lab Results Component Value Date/Time HEMOGLOBIN A1C - [facility] 7.5 (H) 09/21/2022 10:06 AM HEMOGLOBIN A1C - [facility] 8.5 (H) 06/15/2022 09:38 AM HEMOGLOBIN A1C - [facility] 10.5 (H) 12/12/2021 09:08 AM HEMOGLOBIN A1C - [facility] 7.3 (H) 08/29/2019 11:50 AM HEMOGLOBIN A1C - [facility] 6.4 (H) 02/18/2019 11:24 AM HEMOGLOBIN A1C - [facility] 6.6 (H) 10/30/2018 09:51 AM Total Time including non face to face (minutes): 5 documented in this encounter Plan of Treatment Upcoming Encounters Date Type Specialty Care Team Description 11/01/2022 Office Visit Orthopedics Bette Ramirez MD [address] [place] [address] 11/08/2022 Office Visit Cardiology Lukasz Haines, DO [address] [place] [address] 11/16/2022 Office Visit Orthopedics Jeison Arteaga, [address] [place] [address] 12/15/2022 Office Visit Nephrology Lili Rodríguez MD [address] [place] [address] 03/22/2023 Office Visit Family Medicine Kinjal Hernández MD [address] [place] [address] 05/16/2023 Office Visit Hematology Oncology Patricia Conway MD [address] [place] [address] 10/11/2023 Nurse Only Ancillary Alexis, Nurse [facility] [address] [place] [address] Health Maintenance Due Date Last Done Comments COVID-19 Vaccine (6 - Moderna series) 03/13/2022 01/16/2022, 07/18/2021, 02/14/2021, Additional history exists DIABETES-EYE EXAM 04/25/2022 04/25/2021, , 12/30/2018 Influenza Vaccine (FLU shot) (#1) 2022 01/04/2022, 12/28/2020, 12/31/2019, Additional history exists CKD PHOS USE SMARTSET 98639 12/12/202212/01, 12/02/2019, 02/18/2019, Additional history exists Albumin/Creatinine Ratio 03/22/202303/22/2 022, 03/30/2021, 12/02/2019, Additional history exists HbA1c 03/23/2023 09/21/2022, 05/31, 12/12/2021, Additional history exists CKD HGB USE SMARTSET 58983 09/15/202309/14, 05/16/2022, 05/16/2022, Additional history exists DIABETES-FOOT [...] as of this encounter Visit Diagnoses Diagnosis HTN, goal below 150/90 documented in this encounter Care Teams Senior Solutions Engineer Relationship Specialty Start Date End Date Kinjal Hernández MD [address], [place] [phone] PCP - General Family Medicine 12/05/18 documented as of this encounter
--- OUTSIDE RECORDS SUMMARY | 2023-02-27 00:16 | External Medical Summary | Summary of Care ---
Author Name Unknown Organization [facility] Address [address] [place] [address] Phone [phone] Care Team Providers Care Commercial Front Load Driver Name Role Phone Eldon Dowd MD Primary Care Provider [phone]- [phone] Reason for Visit * Reason Comments NEW PATIENT Left shoulder Encounter Details Date Type Department Care Team Description 11/01/2022 Office Visit Orthopaedics [facility] [address] [place] [address] Bette Ramirez MD [address] [place] [address] Primary osteoarthritis, left shoulder*; Synovial cyst of shoulder Allergies Active Allergy Reactions Severity Noted Date Comments Candesartan Cilexetil 01/04/2012 hyperkalemia Atenolol 08/21/2012 Pt was told not to take this again Other reaction(s): PT WAS TOLD NEVER TO TAKE AGAIN Candesartan High 06/13/2022 Other reaction(s): HYPERKALEMIA Lisinopril Other (Please comment) High 01/16/2014 Hypotension/ Increased creatinine Other reaction(s): INCREASED CREATININE/HYPOTENSION documented as of this encounter (statuses as of 11/01/2022) Medications Medication Sig Dispensed Refills Start Date End Date Status CENTRUM PO TABS as directed 0 0 07/03/2008 Active ASPIRIN 81 MG PO CHEWIndications:Oth er specified prophylactic or treatment measure One pill by mouth once a day with food 100 Tab 5 05/12/2010 Active COENZYME Q10 400 MG PO CAPSIndications:Hig h triglycerides,Dysli pidemia, goal LDL below 100 1 CAPSULE DAILY 30 Cap 5 09/20/2011 Active Glucose Blood (ONETOUCH VERIO) STRP Use up to 1 times a day E11.9 100 Strip 3 05/23/2018 Active albuterol HFA (PROVENTIL HFA) 108 (90 BASE) MCG/ACT inhalerIndications: Bronchitis, complicated Use 2 puffs every 4-6hrs as needed for wheezing/shortnes s of breath 1 Inhaler 3 09/06/2018 Active Additional Information Patient not taking.Reported on 09/21/2022 Sotalol HCl 80 MG Oral Tablet (Betapace) TAKE 1/2 TABLET BY MOUTH TWICE DAILY 90 Tablet 3 01/24/2022 01/24/2023 Active Atorvastatin Calcium 80 MG Oral Tablet (Lipitor)Indication s:Encounter for long-term (current) use of other medications TAKE ONE TABLET BY MOUTH DAILY 90 Tablet 3 12/07/2021 12/07/2022 Active linaGLIPtin 5 MG Oral Tablet (Tradjenta)Indicati ons:Type 2 diabetes mellitus with hemoglobin A1c goal of less than 8.0% (HCC) Take 1 Tablet by mouth in the morning. 90 Tablet 3 04/04/2022 Active Empagliflozin 10 MG Oral Tablet (Jardiance) TAKE ONE TABLET BY MOUTH IN THE MORNING 30 Tablet 5 06/21/2022 06/21/2023 Active Carvedilol 12.5 MG Oral Tablet (Coreg)Indications: CAD (coronary artery disease),Paroxysmal atrial fibrillation (HCC) Take 1 Tablet by mouth in the morning and 1 Tablet before bedtime. 180 Tablet 3 08/25/2022 Active Furosemide 40 MG Oral Tablet (Lasix) Take one tablet in the morning 90 Tablet 3 09/20/2022 Active Metamucil Fiber Oral Tablet Chewable Take by mouth. 0 Active Terazosin HCl 2 MG Oral CapsuleIndications: HTN, goal below 150/90 TAKE ONE CAPSULE BY MOUTH AT BEDTIME 90 Capsule 3 10/11/2022 Active Isosorbide Mononitrate ER 60 MG Oral Tablet Extended Release 24 Hour (Imdur)Indications: Coronary artery disease involving [place] coronary artery of [place] heart without angina pectoris,NSTEMI (non-ST elevated myocardial infarction) (HCC) TAKE ONE TABLET BY MOUTH EVERY MORNING. 90 Tablet 3 10/11/2022 Active predniSONE 5 MG Oral Tablet (Deltasone) TAKE 1 TO 3 TABLETS BY MOUTH DAILY 100 Tablet 5 10/16/2022 10/16/2023 Active Cephalexin 500 MG Oral Capsule (Keflex)Indications :Left leg cellulitis Take 1 Capsule by mouth in the morning and 1 Capsule at noon and 1 Capsule before bedtime. 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 Project # [id number], SOLAR SALES ESTIMATOR: Basil Everett MD. CRC: GENE Whitney. SUMMARY: To test the hypothesis that Evacetrapib 130 mg, in comparison to placebo, reduces the risk of major adverse coronary events in high-risk vascular disease patients. CONTACTS: During normal business hours, contact study staff at ; after hours Dinkey Engine Operator via the [facility] refinery operator light ends recovery [phone]. 24-hour Global Study Helpline: [phone]. Lipid levels should not be ordered/obtained while this subject is in the Accelerate study. Lipids are being managed in a blinded fashion. If lipid levels are inadvertently obtained, it is important that test results are NOT provided to the patient, study doctor, discharge coordinator, or other study team members. Restricted meds while in the study: 1) niacin > 250 mg, 2) gemfibrozil with a potent [id number]. Hyperglycemia 02/18/2012 01/10/2017 NSTEMI (non-ST elevated myocardial [...] as of this encounter (statuses as of 11/01/2022) Immunizations Name Administration Dates Next Due COVID-19 [...] as of this encounter Progress Notes * Bette Ramirez MD - 11/01/2022 9:57 AM EDT Chief Complaint: NEW PATIENT (Left shoulder ) History of Present Illness: Nursing Notes: Tika Nye, MED ASSIST 11/01/22 1007 Signed Pt presents today for left shoulder to get aspirated and a possible injection. Pt states he has no pain. Teodoro Arceo is a 87 year old right hand dominant male who presents for consultation to [facility] for left shoulder injury/pain. Consult requested by Nadine Jovel PA-C. Office note 10/04/2022 reviewed. Teodoro Arceo is here with his/her son Teodoro Arceo reports mild left shoulder pain. Has a lump on the superior aspect of his left shoulder that is not painful except with direct palpation. Sometimes has trouble wearing shoulder straps because of it. Notes that he has significant arthritis of the shoulder and has some lack of range of motion because of it, but is most bothered by the painful lump. Review of systems: All others negative except those noted above in HPI. Review of patient's allergies indicates: Allergen Reactions [...] 4-6hrs as needed for wheezing/shortness of breath (Patient not taking: Reported on 09/21/2022) 1 Inhaler 3 Sotalol HCl 80 MG [...] 1 Capsule before bedtime. 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 Estimated body mass index is 22.81 kg/m as calculated from the following: Height as of 09/15/22: 1.727 m (5' 8"). Weight as of 10/09/22: 68 kg (150 lb). General: generally well-nourished and in no [...] No erythema or warmth. Skin intact. Palpation: No significant tenderness to palpation Shoulder glenohumeral ACTIVE range of motion: ABD (100') - Right - 60 degrees Left - 60 degrees ER (90') - Right - 60 degrees Left - 60 degrees IR (60') - Right - to hip Left - to hip FF (110') - Right - 60 degrees Left - 60 degrees Radiology (I have personally reviewed the following films): PROCEDURE INFORMATION: Exam: XR Left Shoulder Exam date and time: 10/04/2022 11:12 AM Age: 87 years old Clinical indication: Localized swelling, mass and lump, left upper limb; Additional info: Mass left shoulder TECHNIQUE: Imaging protocol: Radiologic exam of the left shoulder. Views: 2 or more views. COMPARISON: DX XR SHOULDER, 2 OR MORE VIEWS 11/19/2020 10:20 AM FINDINGS: Bones/joints: There is diffuse osteopenia. There is advanced degenerative change of the acromioclavicular and glenohumeral joint. There is superior subluxation of the humerus with narrowing of the subacromial space. There is spur formation on the inferior aspect of the acromion. These changes would be consistent with impingement and probable rotator cuff tendon tear. There is calcific tendinitis adjacent to the humeral head. There is a soft tissue mass superior to the acromioclavicular joint measuring about 3 cm. Clinical findings should dominate. Both benign and malignant etiologies could be in the differential Soft tissues: Normal. IMPRESSION IMPRESSION: 1. Impingement with degenerative change 2. Soft tissue mass Assessment and Plan: ICD-10-CM 1. Primary osteoarthritis, left shoulder M19.012 2. 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 He has advanced osteoarthritis of the AC joint and glenohumeral joint as well as some rotator cuff arthropathy. He seems most bothered by the synovial cyst over the AC joint. We discussed treatment options including aspiration and injection, surgery. After discussion of risks benefits and alternatives he elected to proceed with aspiration/injection. Please see procedure note below. Discussed with him that the cyst was fairly loculated, therefore was not able to evacuate all of the fluid. Also discussed risk of recurrence. He will follow up with me in about 1 month for re-evaluation. He is considering surgical options if the cyst returns. Procedure note: LEFT acromioclavicular joint injection Time out: Prior to injection, a time out was called to confirm the administration of appropriate medicine, patient name, procedure and confirm to the best of our ability and knowledge the presence of any necessary risks and benefits. Patient verbalizes understanding. Ultrasound utilized to guide injection Ultrasound required due to: need to visualize specific joint recess Using sterile technique, the area was cleansed with ChloraPrep. Under ultrasound guidance with a linear transducer an 18 gauge needle was advanced into to synovial cyst over the AC joint and 12 cc ofred tinged clear synovial fluid was aspirated. Syringe was exchanged and 1.0mL 1% lidocaine and 1.0mL triamcinolone injected into the AC joint and visualize entered in the desired space. There were no complications. Patient tolerated procedure with no significant bleeding or adverse reaction. Patient instructed to call or return to clinic for fever or warmth and redness at injection site for potential infection. Patient also advised as to potential for steroid flare reaction including increased pain and redness at injection site which should be treated with ice and resolve within 24 hours. Ultrasound utilized to guide injection Ultrasound not billed for as I am in [email or web address]'s training phase The above assessment and plan were discussed at length. All questions were answered, and the patient expressed understanding. Bette Ramirez MD Primary Care Sports Medicine [facility] [address] [place] [address] documented in this encounter Nursing Notes * JEFFREY Austin - 11/01/2022 10:00 AM EDT Pt presents today for left shoulder to get aspirated and a possible injection. Pt states he has no pain. documented in this encounter Plan of Treatment Upcoming Encounters Date Type Specialty Care Team Description 11/03/2022 Office Visit Family Medicine Mac Aguilar MD [address] [place] [address] 11/08/2022 Office Visit Cardiology Lukasz Haines, DO [address] [place] [address] 11/16/2022 Office Visit Orthopedics Jeison Arteaga, [address] [place] [address] 12/13/2022 Office Visit Orthopedics Bette Ramirez MD [address] [place] [address] 12/15/2022 Office Visit Nephrology Lili Rodríguez MD [address] [place] [address], [place] [address] 03/22/2023 Office Visit Family Medicine Eldon Dowd MD [facility] [place] [address] 05/16/2023 Office Visit Hematology Oncology Patricia Conway MD [address] [place] [address] 10/11/2023 Nurse Only Gini Tapia Nurse [facility] [address] [place] [address] Health Maintenance Due Date Last Done Comments COVID-19 Vaccine (6 - Moderna series) 03/13/2022 01/16/2022, 07/18/2021, 02/14/2021, Additional history exists DIABETES-EYE EXAM 04/25/2022 04/25/2021, , 12/30/2018 Influenza Vaccine (FLU shot) (#1) 2022 01/04/2022, 12/28/2020, 12/31/2019, Additional history exists CKD PHOS USE SMARTSET 46237 12/12/202212/01, 12/02/2019, 02/18/2019, Additional history exists Albumin/Creatinine Ratio 03/22/202303/22/2 022, 03/30/2021, 12/02/2019, Additional history exists HbA1c 03/23/2023 09/21/2022, 05/31, 12/12/2021, Additional history exists CKD HGB USE SMARTSET 98292 09/15/202309/14, 05/16/2022, 05/16/2022, Additional history exists DIABETES-FOOT EXAM 10/10/2023 10/09/2022, 0 08/30/2021, 10/31/2019, Additional history exists Depression Screening, Annual for Pts 12 and Over 10/10/2023 10/09/2022 DTaP,Tdap,and Td Vaccines (2 - Td or Tdap) 05/24/2025 05/24/2015, 03/14/2006, 05/03/1993 Pneumococcal Vaccine: 65+ Years Completed 11/19/2014, 02/17/2005, 01/31/1998 Zoster Vaccines Completed 07/12/2021, 10/05/2018, 01/06/2011 GARDASIL-HPV IMMUNIZATION SERIES Aged Out No [...] of this encounter Visit Diagnoses Diagnosis Primary osteoarthritis, left shoulder- Primary Synovial cyst of shoulder documented in this encounter Administered Medications Inactive Administered Medications - up to 3 most recent administrations Medication Order MAR Action Action Date Dose Rate Site lidocaine 1% 1 mL - triamcinolone acetonide 40 mg/mL 1 mL inj 2 mL 2 mL, Injection, ONCE, On Sun11/01/22 at 1115, For 1 dose, Lidocaine 1% 1mL Triamcinolone Acetonide 40 mg/mL 1 mL (Final concentration = 20 mg/mL) REFRIGERATE and SHAKE WELL Given 11/01/2022 10:46 AM EDT 2 mL Shoulder Left documented in this encounter Care Teams Commercial Front Load Driver Relationship Specialty Start Date End Date Eldon Dowd MD [address] [place], [place] [phone] PCP - General Family Medicine 12/05/18 documented as of this encounter
--- OUTSIDE RECORDS SUMMARY | 2023-02-27 00:16 | External Medical Summary | Summary of Care ---
Author Name Unknown Organization [facility] Address [address] [place] [address] Phone [phone] Care Team Providers Care Show Host/Hostess Name Role Phone Eldon Dowd MD Primary Care Provider [phone]- [phone] Reason for Visit * Reason Comments Medication Refill Encounter Details Date Type Department Care Team Description 10/06/2022 Refill Pharmacy, [facility] [address] [facility] [place] [id number] Eldon Dowd MD [address] [place], [place] [phone] HTN, goal below 150/90 Allergies Active Allergy [...] MG Oral Tablet Extended Release 24 Hour (IMDUR)Indications: Coronary artery disease involving [place] coronary artery of [place] heart without angina pectoris,NSTEMI (non-ST elevated [...] DAILY 90 Tablet 3 12/07/2021 12/07/2022 Active predniSONE 5 MG Oral Tablet (Deltasone) TAKE 1 TO 3 TABLETS BY MOUTH DAILY 100 Tablet 5 11/17/2021 11/17/2022 Active Additional Information Patient taking differently: 10 mg Oral Daily(AM), Reported on 04/13/2022 linaGLIPtin 5 MG Oral Tablet (Tradjenta)Indicati ons:Type 2 diabetes mellitus with hemoglobin A1c goal of less than 8.0% (HCC) Take 1 Tablet by mouth in the morning. 90 Tablet 3 04/04/2022 Active Terazosin HCl 2 MG Oral CapsuleIndications: HTN, goal below 150/90 TAKE ONE CAPSULE BY MOUTH AT BEDTIME 90 Capsule 1 04/12/2022 Active Empagliflozin 10 MG Oral Tablet (Jardiance) [...] 09/20/2022 Active Cephalexin 500 MG Oral Capsule (Keflex)Indications :Left leg cellulitis Take 1 Capsule by mouth in the morning and 1 Capsule at noon and 1 Capsule before bedtime. 30 Capsule 0 09/30/2022 Active Metamucil Fiber Oral Tablet Chewable Take by mouth. 0 Active documented as of this encounter (statuses [...] URI with cough 03/25/2014 09/01/2016 Accelerate Clinical Trial*[id number] 08/27/2012 08/27/2012 Accelerate Clinical Trial*[id number] 08/27/2012 03/29/2015 Overview: ACCELERATE STUDY. Project # [id number], PROTECTIVE SIGNAL REPAIRER: Basil Everett MD. CRC: GENE Whitney. SUMMARY: To test the hypothesis that Evacetrapib 130 mg, in comparison to placebo, reduces the risk of major adverse coronary events in high-risk vascular disease patients. CONTACTS: During normal business hours, contact study staff at ; after hours Drapery Rod Assembler via the [facility] bolting machine operator [phone]. 24-hour Global Study Helpline: [phone]. Lipid levels should not be ordered/obtained while this subject is in the Accelerate study. Lipids are being managed in a blinded fashion. If lipid levels are inadvertently obtained, it is important that test results are NOT provided to the patient, study doctor, enrollment management coordinator, or other study team members. Restricted meds while in the study: 1) niacin > 250 mg, 2) gemfibrozil with a potent [id number]. Hyperglycemia 02/18/2012 01/10/2017 NSTEMI (non-ST elevated myocardial [...] Telephone Encounter - Amita Armstrong CPhT - 10/11/2022 10:52 AM EDTNo prescriptions requested or ordered in this encounter documented in this encounter Plan of Treatment Upcoming Encounters Date Type Specialty Care Team Description 11/01/2022 Office Visit Orthopedics Bette Ramirez MD [address] [place] [address] 11/08/2022 Office Visit Cardiology Lukasz Haines, DO [address] [place] [address] 11/16/2022 Office Visit Orthopedics Jeison Arteaga, [address] [place] [address] 12/15/2022 Office Visit Nephrology Lili Rodríguez MD [address] [place] [address] 03/22/2023 Office Visit Family Medicine Eldon Dowd MD [address] [place] [address] 05/16/2023 Office Visit Hematology Oncology Patricia Conway MD [address] [place] [address] 10/11/2023 Nurse Only Gini Tapia Nurse [facility] [address] [place] [address] Health Maintenance Due Date Last Done Comments COVID-19 Vaccine (6 - Moderna series) 03/13/2022 01/16/2022, 07/18/2021, 02/14/2021, Additional history exists DIABETES-EYE EXAM 04/25/2022 04/25/2021, , 12/30/2018 Influenza Vaccine (FLU shot) (#1) 2022 01/04/2022, 12/28/2020, 12/31/2019, Additional history exists CKD PHOS USE SMARTSET 10845 12/12/202212/01, 12/02/2019, 02/18/2019, Additional history exists Albumin/Creatinine Ratio 03/22/202303/22/2 022, 03/30/2021, 12/02/2019, Additional history exists HbA1c 03/23/2023 09/21/2022, 05/31, 12/12/2021, Additional history exists CKD HGB USE SMARTSET 12945 09/15/202309/14, 05/16/2022, 05/16/2022, Additional history exists DIABETES-FOOT EXAM 10/10/2023 10/09/2022, 0 08/30/2021, 10/31/2019, Additional history exists Depression Screening, Annual for Pts 12 and Over 10/10/2023 10/09/2022 DTaP,Tdap,and Td Vaccines (2 - Td or Tdap) 05/24/2025 05/24/2015, 03/14/2006, 05/03/1993 Pneumococcal Vaccine: 65+ Years Completed 11/19/2014, 02/17/2005, 01/31/1998 Zoster Vaccines Completed 07/12/2021, 10/0 05/2018, 01/06/2011 GARDASIL-HPV IMMUNIZATION SERIES Aged Out [...] 150/90 documented in this encounter Care Teams Show Host/Hostess Relationship Specialty Start Date End Date Eldon Dowd MD [address], [place] [phone] PCP - General Family Medicine 12/05/18 documented as of this encounter
--- OUTSIDE RECORDS SUMMARY | 2023-02-27 00:17 | External Medical Summary | Summary of Care ---
Author Name Unknown Organization [facility] Address [address] [place] [address] Phone [phone] Care Team Providers Care Firewood Cutter Name Role Phone Eldon Dowd MD Primary Care Provider +1- [phone] Reason for Visit * Reason Onset Date Comments Follow Up 10/09/2022 Medication Update 10/09/2022 Encounter Details Date Type Department Care Team Description 10/09/2022 Telephone [facility] [address] [place] [address] Eldon Dowd MD [address] [place] [address] Follow Up; Medication Update Allergies Active Allergy Reactions Severity Noted Date Comments Candesartan Cilexetil 01/04/2012 hyperkalemia Atenolol 08/21/2012 Pt was told not to take this again Other reaction(s): PT WAS TOLD NEVER TO TAKE AGAIN Candesartan High 06/13/2022 Other reaction(s): HYPERKALEMIA Lisinopril Other (Please comment) High 01/16/2014 Hypotension/ Increased creatinine Other reaction(s): INCREASED CREATININE/HYPOTENSION documented as of this encounter (statuses as of 10/09/2022) Medications Medication Sig Dispensed Refills Start Date [...] 24 Hour (IMDUR)Indications: Coronary artery disease involving [place] coronary artery of [place] heart without angina pectoris,NSTEMI (non-ST elevated myocardial [...] Tablet Chewable Take by mouth. 0 Active Apixaban 5 MG Oral Tablet (Eliquis) Take 1 Tablet by mouth daily. 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 Project # [id number], PIVOT END POLISHER: Basil Everett MD. CRC: GENE Whitney. SUMMARY: To test the hypothesis that Evacetrapib 130 mg, in comparison to placebo, reduces the risk of major adverse coronary events in high-risk vascular disease patients. CONTACTS: During normal business hours, contact study staff at ; after hours Chronometer Adjuster via the [facility] hospital presetter operator [phone]. 24-hour Global Study Helpline: [phone]. Lipid levels should not be ordered/obtained while this subject is in the Accelerate study. Lipids are being managed in a blinded fashion. If lipid levels are inadvertently obtained, it is important that test results are NOT provided to the patient, study doctor, medical services coordinator, or other study team members. Restricted meds while in the study: 1) niacin > 250 mg, 2) gemfibrozil with a potent [id number]. Hyperglycemia 02/18/2012 01/10/2017 NSTEMI (non-ST elevated myocardial [...] as of this encounter (statuses as of 10/09/2022) Immunizations Name Administration Dates Next Due COVID-19 [...] encounter Miscellaneous Notes * Telephone Encounter - Carolyn Whitaker RN - 10/09/2022 1:49 PM EDT Provider to address: Patient seen today for Annual Wellness Visit. FYI - Pt reports that he restarted his Eliquis 09/30/2022 at 5 mg once daily on his own. Continues totake ASA 81 mg daily. He states he is aware that it was stopped after last hospitalization due to GI Bleeding but he feels uncomfortable not taking it. He is only taking this once daily now. Has Cardiology appt and planned on notifying Cardiology at that time. Added to med list. No further rectal bleeding noted by patient. Patient also continues to have bilateral 2+ pitting pedal edema, minimal to ankles. States this hasimproved. Not interested in compression stockings. Watching salt. Elevating LE when he can. Carolyn Whitaker outbound supervisor Nurse Coordinator Reason for Call: Follow Up and Medication Update Contact: In Clinic Contact Type: Medication Outcome: See above Face to face time spent with Patient (minutes): 10 Total Time including non face to face (minutes): 10 documented in this encounter Plan of Treatment Upcoming Encounters Date Type Specialty Care Team Description 11/01/2022 Office Visit Orthopedics Bette Ramirez MD [address] [place] [address] 11/08/2022 Office Visit Cardiology Lukasz Haines DO [address] [place] [address] 11/16/2022 Office Visit Orthopedics Jeison Arteaga, DO [address] [place] [address] 12/15/2022 Office Visit Nephrology Lili Rodríguez MD [address] [place] [address] 03/22/2023 Office Visit Family Medicine Eldon Dowd MD [address] [place] [address] 05/16/2023 Office Visit Hematology Oncology Patricia Conway MD [address] [place] [address] 10/11/2023 [facility] [address] [place] [address] Health Maintenance Due Date Last Done Comments COVID-19 Vaccine (6 - Moderna series) 03/13/2022 01/16/2022, 07/18/2021, 02/14/2021, Additional history exists DIABETES-EYE EXAM 04/25/2022 04/25/2021, , 12/30/2018 Influenza Vaccine (FLU shot) (#1) 2022 01/04/2022, 12/28/2020, 12/31/2019, Additional history exists CKD PHOS USE SMARTSET 59517 12/12/202212/01, 12/02/2019, 02/18/2019, Additional history exists Albumin/Creatinine Ratio 03/22/2023 022, 03/30/2021, 12/02/2019, Additional history exists HbA1c 03/23/2023 09/21/2022, 05/31, 12/12/2021, Additional history exists CKD HGB USE SMARTSET 12763 09/15/202309/14, 05/16/2022, 05/16/2022, Additional history exists DIABETES-FOOT [...] filedocumented as of this encounter Care Teams Firewood Cutter Relationship Specialty Start Date End Date Eldon Dowd MD [address] [place] [address] PCP - General Family Medicine 12/05/18 documented as of this encounter
--- OUTSIDE RECORDS SUMMARY | 2023-02-27 00:17 | External Medical Summary | Summary of Care ---
Author Name Unknown Organization [facility] Address [address] [place] [address] Phone [phone] Care Team Providers Care Gun Stock Maker Name Role Phone Eldon Dowd MD Primary Care Provider [phone]- [phone] Reason for Visit * Reason Onset Date Comments Follow Up 10/09/2022 Medication Update 10/09/2022 Encounter Details Date Type Department Care Team Description 10/09/2022 Telephone [facility] [address] [place] [address] Eldon Dowd MD [address] [place] [address] Follow Up; Medication Update Allergies [...] 24 Hour (IMDUR)Indications: Coronary artery disease involving [place] coronary artery of [place] heart without angina pectoris,NSTEMI (non-ST elevated [...] URI with cough 03/25/2014 09/01/2016 Accelerate Clinical Trial*[id number] 08/27/2012 08/27/2012 Accelerate Clinical Trial*[id number] 08/27/2012 03/29/2015 Overview: ACCELERATE STUDY. Project # [id number], NAVAL ARCHITECT SPECIALIST: Basil Everett MD. CRC: GENE Whitney. SUMMARY: To test the hypothesis that Evacetrapib 130 mg, in comparison to placebo, reduces the risk of major adverse coronary events in high-risk vascular disease patients. CONTACTS: During normal business hours, contact study staff at ; after hours Cdl B Driver via the [facility] hospital joint cleaning machine operator [phone]. 24-hour Global Study Helpline: [phone]. Lipid levels should not be ordered/obtained while this subject is in the Accelerate study. Lipids are being managed in a blinded fashion. If lipid levels are inadvertently obtained, it is important that test results are NOT provided to the patient, study doctor, sales appointment coordinator, or other study team members. Restricted meds while in the study: 1) niacin > 250 mg, 2) gemfibrozil with a potent [id number]. Hyperglycemia 02/18/2012 01/10/2017 NSTEMI (non-ST elevated myocardial [...] encounter Miscellaneous Notes * Telephone Encounter - James Reyes PA-C - 10/09/2022 5:00 PM EDT In basket coverage for Dr. Haines Chart reviewed. Eliquis anticoagulation held when hospitalized at [facility] in July 2022 with GI bleeding and symptomatic anemia requiring transfusion of 3 units PRBCs. He did not undergo endoscopic evaluation at that time and is at increased risk for recurrent bleeding. Also with a large hiatal hernia, chronic prednisone therapy, MGUS. Rhythm controlled with sotalol Recommend aspirin 81 mg/day. Hold Eliquis. James Reyes PA-C Department of Cardiology * Telephone Encounter - Carolyn Whitaker RN [...] Elevating LE when he can. Carolyn Whitaker equine internship Nurse Coordinator Reason for Call: Follow Up and Medication Update Contact: In Clinic Contact Type: Medication Outcome: See above Face to face time spent with Patient (minutes): 10 Total Time including non face to face (minutes): 10 documented in this encounter Plan of Treatment Upcoming Encounters Date Type Specialty Care Team Description 11/01/2022 Office Visit Orthopedics Btete Ramirez MD [address] [place] [address] 11/08/2022 Office Visit Cardiology Lukasz Haines, DO [address] [place] [address] 11/16/2022 Office Visit Orthopedics Jeison Arteaga, DO [address] [place] [address] 12/15/2022 Office Visit Nephrology Lili Rodríguez MD [address] [facility] [place] [address] 03/22/2023 Office Visit Family Medicine Eldon Dowd MD [address] [place] [address] 05/16/2023 Office Visit Hematology Oncology Patricia Conway MD [address] [facility] [place] [address] 10/11/2023 Nurse Only Gini Tapia, Nurse Annual Wellness [address] [place] [facility] [place] [address] Health Maintenance Due Date Last Done Comments COVID-19 Vaccine (6 - Moderna series) 03/13/2022 01/16/2022, 07/18/2021, 02/14/2021, Additional history exists DIABETES-EYE EXAM 04/25/2022 04/25/2021, , 12/30/2018 Influenza Vaccine (FLU shot) (#1) 2022 01/04/2022, 12/28/2020, 12/31/2019, Additional history exists CKD PHOS USE SMARTSET 64321 12/12/202212/01, 12/02/2019, 02/18/2019, Additional history exists Albumin/Creatinine Ratio 03/22/2023 022, 03/30/2021, 12/02/2019, Additional history exists HbA1c 03/23/2023 09/21/2022, 05/31, 12/12/2021, Additional history exists CKD HGB USE SMARTSET 89756 09/15/202309/14, 05/16/2022, 05/16/2022, Additional history exists DIABETES-FOOT [...] filedocumented as of this encounter Care Teams Gun Stock Maker Relationship Specialty Start Date End Date Eldon Dowd MD [address] [place] [address] PCP - General Family Medicine 12/05/18 documented as of this encounter
--- OUTSIDE RECORDS SUMMARY | 2023-02-27 00:17 | External Medical Summary | Summary of Care ---
Author Name Unknown Organization [facility] Address [address] [place] [address] Phone [phone] Care Team Providers Care Security Officers And Guards Name Role Phone Eldon Dowd MD Primary Care Provider +1- [phone] Reason for Visit * Reason Onset Date Comments Follow Up 10/09/2022 Medication Update 10/09/2022 Encounter Details Date Type Department Care Team Description 10/09/[address] [facility] [address] [place] [address] Eldon Dowd MD [address] [place] [address] Follow Up; Medication Update Allergies [...] 24 Hour (IMDUR)Indications :Coronary artery disease involving [place] coronary artery of [place] heart without angina pectoris,NSTEMI (non-ST elevated myocardial [...] 04/04/2022 Active Terazosin HCl 2 MG Oral CapsuleIndications [...] by mouth daily. Started back 09/30/2022 0 3 Discontinue d(Patient preference/ discontinua tion) documented as of this encounter (statuses as [...] URI with cough 03/25/2014 09/01/2016 Accelerate Clinical Trial*[id number] 08/27/2012 08/27/2012 Accelerate Clinical Trial*[id number] 08/27/2012 03/29/2015 Overview: ACCELERATE STUDY. Project # [id number], AIRCRAFT CAPTAIN: Basil Everett MD. CRC: GENE Whitney. SUMMARY: To test the hypothesis that Evacetrapib 130 mg, in comparison to placebo, reduces the risk of major adverse coronary events in high-risk vascular disease patients. CONTACTS: During normal business hours, contact study staff at ; after hours Instrument Maker And Repairer via the [facility] hospital coagulation operator [phone]. 24-hour Global Study Helpline: [phone]. Lipid levels should not be ordered/obtained while this subject is in the Accelerate study. Lipids are being managed in a blinded fashion. If lipid levels are inadvertently obtained, it is important that test results are NOT provided to the patient, study doctor, campaign coordinator, or other study team members. Restricted meds while in the study: 1) niacin > 250 mg, 2) gemfibrozil with a potent [id number]. Hyperglycemia 02/18/2012 01/10/2017 NSTEMI (non-ST elevated myocardial [...] as of this encounter Miscellaneous Notes * Addendum Note - Andria Whitaker RN - 10/11/2022 11:05 AM EDTAddended by: ANDRIA WHITAKER on: 10/11/2022 11:05 AM Modules accepted: Orders * Telephone Encounter - Andria Whitaker RN - 10/11/2022 10:36 AM EDT Provider to address: [facility] Called and spoke to patient. Discussed Eliquis with patient and notified that both Cardiology and Dr. Dowd recommend that patient discontinue this med. Patient verbalizes understanding and agrees to stop Eliquis. LE Edema improving per patient. Still has some edema to tops of feet but seems to be decreasing. Denies edema to ankles and cochran area. Instructed patient to notify the office if swelling increases. Verbalizes understanding. He is not weighing himself but agrees to do this each morning. Notified patient to report increase in weight of 2-3# in 24 hour period. Reason for Call: Follow Up and Medication Update Contact: Telephone Call Contact Type: Advice Outcome: See above Face to face time spent with Patient (minutes): 0 Total Time including non face to face (minutes): 10 * Telephone Encounter - Eldon Dowd MD - 10/10/2022 9:32 AM EDT Please make sure that pt is aware that cardiology and I both feel that he should hold the apixaban due to risk for recurrent bleeding. Would ask that he notify office if progressive increase in lower ext edema. Is he checking his weight daily? * Telephone Encounter - James Reyes PA-C - 10/09/2022 5:00 PM EDT In basket coverage for Dr. Haines Chart reviewed. Eliquis anticoagulation held when hospitalized at [facility] in July 2022 with GI bleeding and symptomatic anemia requiring transfusion of 3 units PRBCs. He did not undergo endoscopic evaluation at that time and is at increased risk for recurrent bleeding. Also with a large hiatal hernia, chronic prednisone therapy, MGUS. Rhythm controlled with sotalol Recommend aspirin 81 mg/day. Hold Eliquis. James Reyes PA-C Department of Cardiology * Telephone Encounter - Andria Whitaker RN - 10/09/2022 1:49 PM EDT [...] Watching salt. Elevating LE when he can. Andria Whitaker moto mix operator Nurse Coordinator Reason for Call: Follow Up and Medication Update Contact: In Clinic Contact Type: Medication Outcome: See above Face to face time spent with Patient (minutes): 10 Total Time including non face to face (minutes): 10 documented in this encounter Plan of Treatment Upcoming Encounters Date Type Specialty Care Team Description 11/01/2022 Office Visit Orthopedics Bette Ramirez MD [address] [place] [address] 11/08/2022 Office Visit Cardiology Lukasz Haines, DO [address] [place] [address] 11/16/2022 Office Visit Orthopedics Jeison Arteaga, DO [address] [place] [address] 12/15/2022 Office Visit Nephrology RodríguezLili avalos MD [address] [place] [address] 03/22/2023 Office Visit Family Medicine Eldon Dowd MD [address] [place] [address] 05/16/2023 Office Visit Hematology Oncology Patricia Conawy MD [address] [place] [address] 10/11/2023 Nurse Only [facility] [place], Nurse Annual Wellness [address] [place] [address] Health Maintenance Due Date Last Done Comments COVID-19 Vaccine (6 - Moderna series) 03/13/2022 01/16/2022, 07/18/2021, 02/14/2021, Additional history exists DIABETES-EYE EXAM 04/25/2022 04/25/2021, , 12/30/2018 Influenza Vaccine (FLU shot) (#1) 2022 01/04/2022, 12/28/2020, 12/31/2019, Additional history exists CKD PHOS USE SMARTSET 18847 12/12/202212/01, 12/02/2019, 02/18/2019, Additional history exists Albumin/Creatinine Ratio 03/22/2023 022, 03/30/2021, 12/02/2019, Additional history exists HbA1c 03/23/2023 09/21/2022, 05/31, 12/12/2021, Additional history exists CKD HGB USE SMARTSET 52398 09/15/202309/14, 05/16/2022, 05/16/2022, Additional history exists DIABETES-FOOT [...] filedocumented as of this encounter Care Teams Security Officers And Guards Relationship Specialty Start Date End Date Eldon Dowd MD [address] [place] [address] PCP - General Family Medicine 12/05/18 documented as of this encounter
--- OUTSIDE RECORDS SUMMARY | 2023-02-27 00:17 | External Medical Summary | Summary of Care ---
Author Name Unknown Organization [facility] Address [address] [place] [address] Phone [phone] Care Team Providers Care Sales Development Consultant Name Role Phone Eldon Dowd MD Primary Care Provider [phone] Reason for Visit * Reason Comments Adult Annual Wellness Visit, Subsequent Visit Encounter Details Date Type Department Care Team Description 10/09/2022 Nurse Only Ancillary Department, [place] [address] [place] [address] [place], Nurse Annual Wellness [address] [place] [address] Adult Annual Wellness Visit, Subsequent Visit Allergies Active Allergy Reactions Severity Noted Date [...] 24 Hour (IMDUR)Indications: 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 Project # [id number], CHILD PROTECTION SPECIALIST: Basil Everett MD. CRC: GENE Whitney. SUMMARY: To test the hypothesis that Evacetrapib 130 mg, in comparison to placebo, reduces the risk of major adverse coronary events in high-risk vascular disease patients. CONTACTS: During normal business hours, contact study staff at ; after hours Power Plant Operator via the [facility] hospital save all operator [phone]. 24-hour Global Study Helpline: [phone]. Lipid levels should not be ordered/obtained while this subject is in the Accelerate study. Lipids are being managed in a blinded fashion. If lipid levels are inadvertently obtained, it is important that test results are NOT provided to the patient, study doctor, youth coordinator, or other study team members. Restricted meds while in the study: 1) niacin > 250 mg, 2) gemfibrozil with a potent [id number]. Hyperglycemia 02/18/2012 01/10/2017 NSTEMI (non-ST elevated myocardial [...] Sign Reading Time Taken Comments Blood Pressure 164/82 10/09/2022 9:56 AM EDT Pulse 63 10/09/2022 9:56 AM EDT Temperature 36.9 C (98.4 F) 10/09/2022 9:56 AM ED T Respiratory Rate - - Oxygen Saturation 97% 10/09/2022 9:56 AM EDT Inhaled Oxygen Concentration - - Weight 68 kg (150 lb) 10/09/2022 9:56 AM EDT Height - - Body Mass Index 22.81 09/15/2022 10:11 AM EDT documented in this encounter Patient Instructions * Patient Instructions* Carolyn Whitaker, JASPER - 10/09/2022 9:37 AM EDT Diabetes: Keeping Feet Healthy Inspect your feet every day for signs of a problem. Diabetes can damage nerves in your feet and cause neuropathy. This condition makes it hard for you to feel injuries or sore spots. Diabetes can also change blood flow, making it harder for small problems, like a blister, to heal properly. In fact, minor injuries can quickly become serious infections that send you to the hospital. Practice self-care to protect your feet and keep them healthy. Take Special Care Inspect your feet daily for problems such as redness, blisters, cracks, dry skin, or numbness. Use a mirror to see the bottoms of your feet. Or, ask for help. Manage your diabetes. Monitor and control your blood sugar. Take all your medications as prescribed. Avoid walking barefoot, even indoors. Wash your feet with warm water and mild soap. Dry well, especially between toes. Dont treat corns or calluses yourself. Talk to your doctor or sash installer (a doctor who specializes in foot care) if you need assistance trimming your toenails. Use moisturizing cream or lotion if you have dry skin, but dont use it between toes. Dont use heating pads on your feet. If you have neuropathy, you could get a burn and not feel it. Stop smoking. Smoking restricts blood flow and can make it harder for wounds to heal. Have Regular Checkups Foot problems can develop quickly. So be sure to follow your healthcare teams schedule for regular checkups. During office visits, take off your shoes and socks as soon as you get in the exam room. Ask your healthcare provider to examine your feet for problems. This will make it easier to find and treat small skin irritations before they get worse. Regular checkups can also help keep track of the blood flow and feeling in your feet. If you have neuropathy, you may need to have checkups more often. Wear Proper Footwear Wearing proper footwear is very important. If areas of your feet have been damaged by too much pressure, your healthcare provider may recommend changing your footwear. In some cases, avoiding high heels or tight work boots may be all thats needed. Or, your healthcare provider may recommend special shoes or custom inserts. These help protect your feet and keep existing irritations from getting worse. If you need special footwear, ask your healthcare provider if you qualify for [employer] diabetic shoe program. Make Sure Shoes and Socks Fit Any pair of shoes--new or old--should feel comfortable as soon as you put them on. There shouldnt be any rubbing when you walk. Wear the right shoe for any activity. For instance, a running shoe is designed to keep your feet injury-free while jogging. Buy shoes at the end of the day, when your feet are larger. Make sure they provide support without feeling too loose. Make sure your socks fit, t oo. Wear soft, seamless, well-padded socks for activity. Cotton or microfiber socks are best to help to absorb sweat. To protect your feet, avoid shoes that are open-toed or open-heeled. If you have questions about what kinds of shoes and socks are best, talk to your healthcare team. Get Regular Exercise Regular exercise improves blood flow in your feet. It also increases foot strength and flexibility.Gentle exercises, like walking or riding a stationary bicycle, are best. You can also do special foot exercises. Just be sure to talk with your healthcare provider before starting any exercise program. Also mention if any exercise causes pain, redness, or other signs of foot problems. Note: If you have any kind of break in the skin of your foot or ankle, keep the area clean. Then call your doctor--especially if the area doesnt appear to be healing. [id number] [employer], [address] [place] [address], [place] [address]. All rights reserved. This information is not intended as a substitute for professional medical care. Always follow your healthcare professional's instructions. Patient Instructions - Fall Prevention (This education is for all patients over 65 regardless of symptoms) Remember to take your current medications as prescribed. In order to prevent falls, you are encouraged to: Exercise Utilize assistive/adaptive devices Avoid multifocal lenses when walking Avoid hazards in home Maintain a regular toileting schedule Any questions please contact our office. Preventing Falls in the Home (This education is for all patients over 65 regardless of symptoms) As you get older, falls are more likely. Thats because your reaction time slows. Your muscles and joints may also get stiffer, making them less flexible. Illness, medications, and vision changes can also affect your balance. A fall could leave you unable to live on your own. To make your home safer, follow these tips: Floors Put nonskid pads under area rugs Remove throw rugs Replace worn floor coverings Tack carpets firmly to each step on carpeted stairs. Put nonskid strips on the edges of uncarpeted stairs Keep floors and stairs free of clutter and cords Arrange furniture so there are clear pathways Clean up any spills right away Bathrooms Install grab bars in the tub or shower Apply nonskid strips or put a nonskid rubber mat in the tub or shower Sit on a bath chair to bathe Use bathmats with nonskid backing Lighting Keep a flashlight in each room Put a nightlight along the pathway between the bedroom and the bathroom [employer] Patient Education Copyright 2008 - 2010 [employer] except where otherwise noted Preventing Falls: Exercises to Improve Balance, Flexibility, Strength, and Staying Power (This education is for all patients over 65 regardless of symptoms) Certain types of exercises may help make you less likely to fall. Try the ones below. Or do other exercises that your healthcare provider suggests. Depending on your health, you may need to start slowly. Dont let that stop you. Even small amounts of exercise can help you. Be sure to talk to yourhealthcare provider before starting any exercise program. Improve Balance Many types of exercise can help improve balance. Durga chi and yoga are good examples. Heres another one to try. You can do it anytime and almost anywhere. Stand next to a counter or solid support. Push yourself up onto your tiptoes. Hold for 5 seconds. If you start to lose your balance, hold on to the counter. Rest and repeat 5 times. Work up to holding for 20 to 30 seconds, if you can. Increase Flexibility Being more flexible makes it easier for you to move around safely. Try exercises like the seated hamstring stretch. Sit in a chair and put one foot on a stool. Straighten your leg and reach with both hands down either side of your leg. Reach as far down your leg as you can. Hold for about 20 seconds. Go back to the starting position. Then repeat 5 times. Switch legs. Build Strength Resistance exercises help build strength. You can do them without equipment. Or you can use weights, elastic bands, or special machines. One such exercise is called the biceps curl. You can hold a 1 pound weight or even a can of soup. Do this exercise at least 3 times a week. Strive for everyday. Sit up straight in a chair. Keep your elbow close to your body and your wrist straight. Bend your arm, moving your hand up to your shoulder. Then slowly lower your arm. Repeat 5 times. Switch to the other arm. Build Your Staying Power Aerobic exercises make your heart and lungs stronger so you can keep moving longer. Walking and swimming are two of the best types of exercises you can do. Using a stationary bike is great, too. Find an aerobic exercise that you enjoy. Start slowly and build up. Even 5 minutes is helpful. Aimfor a goal of 30 minutes, at least 3 times a week. You dont have to do 30 minutes in one session. Break it up and walk a little throughout the day. More Helpful Tips Start easy. Slowly work up to doing more. Talk with your healthcare provider about the best exercises for you. Call senior centers or health clubs about exercise programs. If needed, have a family member watch you walk every so often to check your stability. Exercise with a friend. Choose an activity you both enjoy. Try exercises that you can do anytime, anywhere. Here are two examples. Have someone with you when you first try these: Practice walking by placing one foot right in front of the other. Stand up and sit down 10 times. Repeat this throughout the day. [employer] Patient Education Copyright 2008 [employer] except where otherwise noted. Preventing Falls: Moving Safely Using a Cane or Walker (This education is for all patients over 65 regardless of symptoms) Keep the cane away from your feet so you dont trip. A walking aid, such as a cane or walker, can help you stay more independent and avoid falls. Remember to keep your walking aid within easy reach when youre in a chair or in bed. And learn how to use it safely so you dont injure yourself. Using a Cane If you have a stronger side, hold the cane on that side. 17. Get your balance. 18. Move the cane and your weaker leg forward. 19. Support your weight on both the cane and your weaker side. 20. Step with your stronger leg. 21. Start again from step 1. If youre using a folding walker, be sure you know how to lock it open. Check that its locked open before each use. Using a Walker 7. Roll the walker (or lift it, if youre using one without wheels) forward about 12 inches. 8. Step forward with your weaker leg first. 9. Use the walker to help keep your balance. 10. Bring your other foot forward to the center of the walker. 11. Start again from step 1. Helpful Tips Check with your healthcare provider about the right walking aid to use. Ask about a walker with a seat attached. Check the tips of your cane or walker to make sure they have nonskid covers. Move slowly from room to room. Dont aguilar. Sit down to get dressed. Use a shant pack or backpack to keep your hands free. Get help for jobs that mean climbing, even on a stepstool. [employer] Patient Education Copyright 2008 - 2010 [employer] except where otherwise noted. Treating Urinary Incontinence in Men (This education is for all patients over 65 regardless of symptoms) You can't always control the release of urine. You may leak urine. Or you may not be able to hold your urine until you can get to a bathroom. This is called urinary incontinence. The problem can be managed. Talk to your doctor about your treatment options. Taking Medications Prescription medications may help you. They may: Help the sphincter to work better. (This is the muscle that closes to keep urine from leaking out of the bladder.) Help stop the bladder from galo too often to push urine out. Help the bladder muscles contract with more force. Help relax the sphincter muscle and allow urine to flow more freely. Making Changes to Your Routine Certain changes in your daily routine may help. These include: Avoiding caffeine and alcohol. Using timed voiding. This is following a schedule for drinking fluids and urinating. Doing Kegel exercises daily. These exercises involve tightening the muscles in your sphincter and around your bladder to help strengthen them. Your doctor can explain how to do them. Using a Catheter A catheter is a narrow tube that is inserted through the urethra into the bladder. It drains urine.A condom catheter covers the penis. It channels urine into a collection bag. It is worn most of thetime. Intermittent catheterization means inserting a catheter to drain the bladder, then removing it. This is done on a regular schedule. Having Surgery If other options don't work, surgery may be recommended. If surgery is an option, your healthcare provider can discuss it with you and explain its risks and benefits. Healing After Prostate Surgery Surgery on the prostate gland can cause incontinence. Most often, the incontinence is only for a short time. It clears up when healing is complete. Very rarely, prostate surgery can result in permanent incontinence. Hi Mr. Arceo, As your primary care physician, I know that regular visits with my patients who have several chronic conditions can go a long way in helping you stay healthy. Many times, the clinic team and I are in touch with you and/or other care team members between office visits to adjust medications, discuss any changes in your health, and review our care plan to make sure it is still meeting your needs. I am dedicated to helping you take a more active role in your overall care. It is important that there are resources available to you, so I created a personalized plan of care with a Health Calendar for you, which is included on the next page of this letter. Below is a list that summarizes your electronic health record: Health Maintenance Due: Health Maintenance Due Topic Date Due COVID-19 Vaccine (6 - Moderna series) 03/13/2022 DIABETES-EYE EXAM 04/25/2022 Depression Screening, Annual for Pts 12 and Over 08/30/2022 Current Medication List: (as of Visit date not found (in office), Visit date not found (telemedicine) ) Current Outpatient Medications Medication Sig Dispense Refill CENTRUM PO TABS as directed 0 0 ASPIRIN 81 MG PO CHEW One pill by mouth once a day with food 100 Tab 5 COENZYME Q10 400 MG PO CAPS 1 CAPSULE DAILY 30 Cap 5 Isosorbide Mononitrate ER 60 MG Oral Tablet Extended Release 24 Hour (IMDUR) TAKE ONE TABLET BYMOUTH EVERY MORNING. 90 Tab 3 Sotalol HCl 80 MG Oral Tablet (Betapace) TAKE 1/2 TABLET BY MOUTH TWICE DAILY 90 Tablet 3 Atorvastatin Calcium 80 MG Oral Tablet (Lipitor) TAKE ONE TABLET BY MOUTH DAILY 90 Tablet 3 predniSONE 5 MG Oral Tablet (Deltasone) TAKE 1 TO 3 TABLETS BY MOUTH DAILY (Patient taking differently: Take 2 Tablets by mouth in the morning.) 100 Tablet 5 linaGLIPtin 5 MG Oral Tablet (Tradjenta) Take 1 Tablet by mouth in the morning. 90 Tablet 3 Terazosin HCl 2 MG Oral Capsule TAKE ONE CAPSULE BY MOUTH AT BEDTIME 90 Capsule 1 Empagliflozin 10 MG Oral Tablet (Jardiance) TAKE ONE TABLET BY MOUTH IN THE MORNING 30 Tablet 5 Carvedilol 12.5 MG Oral Tablet (Coreg) Take 1 Tablet by mouth in the morning and 1 Tablet before bedtime. 180 Tablet 3 Furosemide 40 MG Oral Tablet (Lasix) Take one tablet in the morning 90 Tablet 3 Cephalexin 500 MG Oral Capsule (Keflex) Take 1 Capsule by mouth in the morning and 1 Capsule atnoon and 1 Capsule before bedtime. 30 Capsule 0 Metamucil Fiber Oral Tablet Chewable Take by mouth. Apixaban 5 MG Oral Tablet (Eliquis) Take 1 Tablet by mouth daily. Started back 09/30/2022 Glucose Blood (ONETOUCH VERIO) STRP Use up to 1 times a day E11.9 100 Strip 3 albuterol HFA (PROVENTIL HFA) 108 (90 BASE) MCG/ACT inhaler Use 2 puffs every 4-6hrs as needed for wheezing/shortness of breath (Patient not taking: Reported on 09/21/2022) 1 Inhaler 3 No current facility-administered medications for this visit. Current List of Allergies: (as of Visit date not found (in office), Visit date not found (telemedicine) ) Review of patient's allergies indicates: Allergen Reactions Candesartan Other reaction(s): HYPERKALEMIA Lisinopril Other (Please comment) Hypotension/ Increased creatinine Other reaction(s): INCREASED CREATININE/HYPOTENSION Atacand [Candesartan Cilexetil] hyperkalemia Atenolol Pt was told not to take this again Other reaction(s): PT WAS TOLD NEVER TO TAKE AGAIN Most Recent Lab Results: Results for orders placed or performed in visit on 09/21/22 HEMOGLOBIN A1C Result Value Ref Range Hemoglobin A1C 7.5 (H) 4.0 - 5.6 % Estimated Average Glucose 169 (H) <126 mg/dL *Note: Due to a large number of results and/or encounters for the requested time period, some results have not been displayed. A complete set of results can be found in Results Review. Sincerely, Eldon Dowd MD 10/09/2022 [facility] Calendar (as of Visit date not found (in office), Visit date not found (telemedicine) ) Care needs Care needs Last completed Due next COVID-19 Vaccine (6 - Moderna series) 01/16/2022 03/13/2022 Dilated eye exam (by eye doctor or retinal camera) 04/25/2021 04/25/2022 Flu vaccine (recommended) (1) 01/04/2022 12/01/2022 Urine albumin/creatinine test 03/22/2022 03/22/2023 A1C blood sugar test 09/21/2022 03/23/2023 Yearly foot exam 10/09/2022 10/10/2023 Diphtheria, tetanus & pertussis vaccines (2 - Td or Tdap) 05/24/2015 05/24/2025 As you look over the recommended services, be sure to check with your insurance company to determine what's covered. [employer] is a great tool that helps you review your medical record online, including test results, doctor notes and your health summary. You can also schedule appointments with me and other members of your care team, request prescription refills and ask for advice related to your medical conditions at [email or web address]. documented in this encounter Progress Notes * Carolyn Whitaker RN - 10/09/2022 9:36 AM EDT DM Foot Exam completed today. Provider aware. Carolyn Whitaker RN Socks and Shoes Removed for Annual Diabetic Foot Screening RIGHT FOOT: No Reddened, Cracking, Or Open Areas Noted. RIGHT Dorsalis Pedis Pulse: Palpable RIGHT Posterior Tibial Pulse: Palpable RIGHT Monofilament:Patient reports feeling monofilament pressure on plantar surface of foot LEFT FOOT: No Reddened, Cracking or Open Areas Noted. LEFT Dorsalis Pedis Pulse: Palpable LEFT Posterior Tibial Pulse: Palpable LEFT Monofilament:Patient reports feeling monofilament pressure on plantar surface of foot Do you need diabetic shoes: N/A Patient with +2 pitting edema to tops of feet eden. Minimal to ankles deen. No edema to Lower Legs eden. Patient reports this is much better than it has been. No redness to LE. States he does not want to wear compression stockings and is watching his salt. Elevating LE also. AD8 Dementia Screening Interview Person answering questions: patient Remember, "Yes, a change" indicates that there has been a change in the last several years caused by cognitive (thinking and memory) problems 1. Problems with judgement (eg: problems making decisions, bad financial decisions, problems with thinking). No (0) 2. Less interest in hobbies/activities. No (0) 3. Repeats the same things over and over (questions, stories, or statements). No (0) 4. Trouble learning how to use a tool, appliance, or gadget (eg: VCR, computer, microwave, remote control). No (0) 5. Forgets correct month or year. No (0) 6. Trouble handling complicated financial affairs (eg: balancing checkbook, income taxes, paying bills). No (0) 7. Trouble remembering appointments. No (0) 8. Daily problems with thinking and/or memory. No (0) TOTAL AD8: 0 - AD8 Dementia Screening Score The final score is a sum of the number items marked "Yes, A Change". 0 - 1: Normal cognition; 2 or greater: Cognitive impairments is likely to be present - further testing required Adult Annual Wellness Visit: Teodoro Arceo is a 87 year old male who presents for an Adult Annual Wellness Visit. Depression Screening: Did the patient complete the screening questionnaire for Depression? Yes Is the patient's total score for Depression 15 or greater? No, no further intervention needed, unless requested by patient. Did the patient answer positively to the suicide question? No, no further intervention needed, unless requested by patient. In general, compared to other people your age, what would you say that your health is? Good Ht Readings from Last 1 Encounters: 09/15/22 1.727 m (5' 8") Wt Readings from Last 1 Encounters: 10/09/22 68 kg (150 lb) Body Mass Index: BMI Less than 30 Body mass index is 22.81 kg/m. Unable to stand straight for height due to knee pain today, in wheelchair BP Readings from Last 1 Encounters: 10/09/22 164/82 Medical/Surgical/Family History Reviewed: Yes Past Medical History: Diagnosis Date CAD (coronary [...] performed by Allan Persaud, DO at [facility] JOINT INJECT W/GUIDANCE 05/31/2020 INJECTION SACROILIAC [...] of pneumonia @ 80 Stroke Mother CVA/ [place] @ 63 Heart Disorder Sister CABG Heart Disorder Sister rheumatic heart disease Heart Disorder Brother Neurological Disorder Sister CVA Has patient ever had cancer? No Social History Tobacco Use Smoking status: Never Smokeless tobacco: Never Substance Use Topics Alcohol use: No Vaping/E-Cigarette Use Vaping/E-Cigarette Use Never User Vaping/E-Cigarette Substances Vaping/E-Cigarette Devices Tobacco/Alcohol screening completed today? Yes Hospital Care: Admissions (within the last year): Hospital, Location: [facility] Date of Admission: 07/2022 ER within 30 days: No Does the patient have an Advance Directives/Living Will? Yes Last Physical Exam: Last physical exam: 07/2022 Does patient see primary provider regularly? Yes Does patient see other providers? Yes, Specialist Patient Care Team updated? Yes Review of patient's allergies indicates: Allergen Reactions Candesartan Other reaction(s): HYPERKALEMIA Lisinopril Other (Please comment) Hypotension/ Increased creatinine Other reaction(s): INCREASED CREATININE/HYPOTENSION Atacand [Candesartan Cilexetil] hyperkalemia Atenolol Pt was told not to take this again Other reaction(s): PT WAS TOLD NEVER TO TAKE AGAIN Immunization History Administered Date(s) Administered COVID-19 mRNA, LNP-s, No Preserve, 2-Dose Series (Moderna) 05/07/2020, 06/04/2020 Covid-19 Mrna, Lnp-s, No Preserve, Booster (Moderna) 02/14/2021, 07/18/2021, 01/16/2022 Diptheria/Tetanus (Adult) 05/03/1993 Pneumococcal Conjugate Vacc, 13 Valent (Prevnar) 11/19/2014 Pneumococcal Polysaccharide PPV23 (Pneumovax) 01/31/1998, 02/17/2005 Seasonal Influenza Virus Vaccine, Unspecified Formulation 01/01/1996, 12/31/1996, 01/15/1998 Seasonal Influenza, Quadrivalent Hd (Fluzone Hd) 12/28/2020, 01/04/2022 Seasonal Influenza, Quadrivalent, No Preserve, 6 Mons & Above, IM 01/10/2017, 01/23/2018, 01/02/2019, 12/31/2019 Seasonal Influenza, Quadrivalent, No Preserve, IM 01/22/2015, 01/31/2016 Seasonal Influenza, Split, IIV3, With Preserve, Inj 03/14/2006, 01/28/2008, 01/07/2009, 01/18/2010, 12/26/2010, 12/06/2011, 12/13/2012, 01/16/2014 TD - Tetanus/Diptheria (ADULT) 03/14/2006 TDAP (age 10 and older)(Boostrix) 05/24/2015 Varicella Zoster Vaccine (Adult) 01/06/2011 Zoster Vaccine Recombinant (Shingrix) 01/02/2019, 07/12/2021 Current Outpatient Medications Medication Sig Dispense Refill CENTRUM PO TABS as directed 0 0 ASPIRIN 81 MG PO CHEW One pill by mouth once a day with food 100 Tab 5 COENZYME Q10 400 MG PO CAPS 1 CAPSULE DAILY 30 Cap 5 Isosorbide Mononitrate ER 60 MG Oral Tablet Extended Release 24 Hour (IMDUR) TAKE ONE TABLET BYMOUTH EVERY MORNING. 90 Tab 3 Sotalol HCl 80 MG Oral Tablet (Betapace) TAKE 1/2 TABLET BY MOUTH TWICE DAILY 90 Tablet 3 Atorvastatin Calcium 80 MG Oral Tablet (Lipitor) TAKE ONE TABLET BY MOUTH DAILY 90 Tablet 3 predniSONE 5 MG Oral Tablet (Deltasone) TAKE 1 TO 3 TABLETS BY MOUTH DAILY (Patient taking differently: Take 2 Tablets by mouth in the morning.) 100 Tablet 5 linaGLIPtin 5 MG Oral Tablet (Tradjenta) Take 1 Tablet by mouth in the morning. 90 Tablet 3 Terazosin HCl 2 MG Oral Capsule TAKE ONE CAPSULE BY MOUTH AT BEDTIME 90 Capsule 1 Empagliflozin 10 MG Oral Tablet (Jardiance) TAKE ONE TABLET BY MOUTH IN THE MORNING 30 Tablet 5 Carvedilol 12.5 MG Oral Tablet (Coreg) Take 1 Tablet by mouth in the morning and 1 Tablet before bedtime. 180 Tablet 3 Furosemide 40 MG Oral Tablet (Lasix) Take one tablet in the morning 90 Tablet 3 Cephalexin 500 MG Oral Capsule (Keflex) Take 1 Capsule by mouth in the morning and 1 Capsule atnoon and 1 Capsule before bedtime. 30 Capsule 0 Metamucil Fiber Oral Tablet Chewable Take by mouth. Glucose Blood (ONETOUCH VERIO) STRP Use up to 1 times a day E11.9 100 Strip 3 albuterol HFA (PROVENTIL HFA) 108 (90 BASE) MCG/ACT inhaler Use 2 puffs every 4-6hrs as needed for wheezing/shortness of breath (Patient not taking: Reported on 09/21/2022) 1 Inhaler 3 No current facility-administered medications for this visit. Patient Active Problem List Diagnosis Code Monoclonal [...] Chronic venous insufficiency of lower extremity I87.2 Medication Compliance: Patient is able to obtain all of his medications? Yes Patient takes medications as prescribed? Yes Patient manages own medications: Yes Patient uses a pill box? Yes, refill(s) completed by self Patient states he restarted his Eliquis on 09/30/2022 on his own. He felt he needed to be on this, aware cardiology told him to discontinue due to GI Bleed. States he has not had any further rectal bleeding. Taking only once daily. Dental Exam: No Dentures Eye Screening: Yes: Every year Are you having trouble with hearing? No Do you use an assistive device to help your hearing? No Exercise Screening: does not exercise regularly, does leg strenghening exercises Nutrition Assessment: Eats a balanced diet and Eats two - three meals a day Pain Screening: Are you having any pain? Yes. Pain Scale: 5 out of 10; Location: Rt ip, When: comes and goes, Duration: since 2018, Aggravating Factors: position, Relieved by: position change, had injection Sleep Screening Tool 'STOP': 1. Do you snore? No 2. Do you feel fatigued during the day? No 3. Do you wake up feeling like you haven't slept? No 4. Have you been told you stop breathing at night? No 5. Do you gasp for air or choke while sleeping? No 6. Have you been told you have Sleep Apnea? No 7. Do you have high blood pressure or are on medication(s) to control high blood pressure? Yes SCORE: If you check YES to two or more questions, make a referral for Obstructive Sleep Apnea Patient and Caregiver Support System: Patient lives alone Means of Transportation: Family transports Patient lives in One Story - with basement stairs: has chair lift Community Resources: Meals on Wheels Functional Status and ADL Skills: Has patient ever had an amputation? No Functional Assessment: 80- Normal activity with effort: some symptoms of disease Ambulation: Patient ambulates with assistive device. rollator/wheelchair Dressing: Gets clothes and dresses without any assistance: Independent Able to move freely in chair or bed including turning over: Independent Repositioning (bed or chair): Not applicable Transfers: Independent Toileting: Goes to bathroom, uses toilet, arranges clothes and returns without any assistance: Independent Toileting: continent of bladder and continent of bowel Feeding: Self Bathing: Self; takes bath in front of sink, also has shower chair Requires none assistance with ADLs. Instrumental ADL's: Shopping: Maximum Assistance Housekeeping: Moderate Assistance Handling Finances: Independent DME Vendor Name: Not Applicable Fall Risk Assessment: Can the patient demonstrate that he can stand from a sitting position? Yes Has the patient had a fall within the last 6 months? No Does the patient have a problem with his gait or balance? Yes Does the patient take 4 or more prescription medicines? Yes Does the patient use sedatives or narcotics? No Fall Risk Factors Present: Uses more than 4 medications Uses assistive devices Balance or gait disturbances Lower extremity weakness Older than age 70 Ked-Dp-xqk-Go Test: Eij-Zi-hrp-Go Test completed? No, non-ambulatory In wheelchair today Gender Specific Preventative Plan: Health Maintenance Topic Date Due COVID-19 Vaccine (6 - Moderna series) 03/13/2022 DIABETES-EYE EXAM 04/25/2022 Depression Screening, Annual for Pts 12 and Over 08/30/2022 Influenza Vaccine (FLU shot) (1) 12/01/2022 CKD PHOS USE SMARTSET 32852 12/12/2022 Albumin/Creatinine Ratio 03/22/2023 HbA1c 03/23/2023 CKD HGB USE SMARTSET 27467 09/15/2023 DIABETES-FOOT EXAM 10/10/2023 DTaP,Tdap,and Td Vaccines (2 - Td or Tdap) 05/24/2025 Zoster Vaccines Completed Pneumococcal Vaccine: 65+ Years Completed Hepatitis B Aged Out MENINGOCOCCAL (MENACTRA/MENVEO) Aged Out GARDASIL-HPV IMMUNIZATION SERIES Aged Out Follow Up/ Referrals/Handouts: Mini mental screening - Completed Functional assessment - Completed Falls Risk screening - Completed, handout given Exercise screening - Encouraged leg strengthening exercises Nutrition assessment -. Education Provided and Handouts Provided Pain screening - Chronic pain, follows with pain management, no new concerns Incontinence screening - No new concerns Routine general medical examination at a health care facility (Primary) DM type 2 nursing care encounter (HCC) - DIABETES FOOT EXAM Risk and functional assessment Type 2 diabetes mellitus with hemoglobin A1c goal of less than 8.0% (HCC) Component Latest Ref Rng 09/21/2022 Hemoglobin A1C 4.0 - 5.6 % 7.5 (H) Estimated Average Glucose <126 mg/dL 169 (H) -Med reconciliation completed and compliance discussed. - pt to continue present medications. Continue to monitor and follow with PCP Dyslipidemia Component Latest Ref Rng 03/30/2021 Non-HDL Cholesterol <=159 mg/dL 106 LDL Cholesterol <=129 mg/dL 70 -Med reconciliation completed and compliance discussed. - pt to continue present medications. Continue to monitor and follow with PCP Paroxysmal atrial fibrillation (HCC) Chronic diastolic congestive heart failure (HCC) -Med reconciliation completed and compliance discussed. - pt to continue present medications. Continue to monitor and follow with Cardiology HTN, goal below 130/80 BP Readings from Last 3 Encounters: 10/09/22 164/82 10/04/22 150/63 09/15/22 151/66 -Med reconciliation completed and compliance discussed. - pt to continue present medications. Continue to monitor and follow with PCP Patient has been verbally educated on the need or importance of Diabetic Eye Exam and Diabetic FootExam DM eye exam scheduled for Dec DM foot exam completed today - see above. Discussed importance of Covid Vaccine: pt has received the vaccine Yes, Patient has received both doses of Covid vaccine and 3 boosters. Brought in card. Immunization record updated. Would patient like to schedule next AWV visit? Yes Carolyn Whitaker RN documented in this encounter Miscellaneous Notes * Pt Handout (on AVS) - Carolyn Whitaker RN - 10/09/2022 10:39 AM EDT [id number] Fall Prevention Falls often take place due to slipping, tripping, or losing your balance. Millions of people fall every year and injure themselves. Among older adults in the [place] falls are the most common cause of traumatic brain injuries. Every 20 minutes, an older adult dies from a fall. Here are ways to reduceyour risk of falling again: Think about your fall. Was there anything that caused your fall that can be fixed, removed, or replaced? Make your home safe by keeping walkways clear of objects you may trip over, such as electrical cords. Use nonslip pads under rugs. Don't use area rugs or small throw rugs. Use nonslip mats in bathtubs and showers. Hang grab rails by the toilet and inside and outside the shower. Install handrails and lights on staircases. The handrails should be on both sides of the stairs. Use night lights. Don't walk in poorly lit areas. Don't stand on chairs or wobbly ladders. Use care when reaching overhead or looking up. This position can cause a loss of balance. Be sure your shoes fit well, are in good condition, and have nonslip bottoms. Wear shoes both inside and outside of your home. Don't go barefoot or wear slippers. Be cautious when going up and down stairs, curbs, and when walking on uneven sidewalks. If your balance is poor, consider using a cane or walker. Talk with your healthcare provider about having a balance assessment. If your fall was related to alcohol use, stop or limit alcohol intake. Ask your provider for help if you think you may overuse alcohol and can't stop. If your fall was related to use of sleeping medicines, talk with your provider about this. You may need to reduce your dosage at bedtime if you wake up during the night to go to the bathroom. To reduce the need for nighttime bathroom trips: o Don't drink fluids for several hours before going to bed o Empty your bladder before going to bed o Men can keep a urinal at the bedside Stay as active as you can. Balance, flexibility, strength, and endurance all come from exercise.They all play a role in preventing falls. Ask your provider which types of activity are right for you. Try to do some type of exercise every day. Get your eyes checked once a year or more often if your vision changes If you have pets, know where they are before you stand up or walk so you don't trip over them. Go over all your medicines with a pharmacist or other provider. This is to see if any of them could make you more likely to fall. Have this type of medicine review at least once every year. If your provider advises a new medicine, ask if the side effects will affect your balance. Don't move quickly from one position to another. For instance, don't stand up fast from sitting.This can cause dizziness and may lead to a fall. Sit down when putting on pants, socks, and shoes. This will make you less likely to lose your balance and fall. Always let your provider know if you have fallen since your last visit. Contact your provider right away if you're having balance problems or falling more often. Last Reviewed Date: 04/02/202119992216-4425 [employer]. All rights reserved. This information is not intended as a substitute for professional medical care. Always follow your healthcare professional's instructions. * Pt Handout (on AVS) - Carolyn Whitaker RN - 10/09/2022 10:39 AM EDT Images from the original note were not included. [id number] Steps for Eating Healthier Changing the way you eat can improve your health. It can lower your cholesterol and blood pressure,and help you stay at a healthy weight. Your diet doesn?t have to be bland and boring to be healthy.Just watch your calories and follow these steps: Step 1. Eat fewer unhealthy fats Choose more fish and lean meats instead of fatty cuts of meat. Skip butter and lard, and use less margarine. Replace these with healthier fats, such as olive, canola, or avocado oils. Pass on foods that have palm, coconut, or partially hydrogenated oils. Eat fewer high-fat dairy foods like cheese, ice cream, and whole milk. Get a heart-healthy cookbook and try some new recipes. Step 2. Go light on salt Keep the saltshaker off the table. Limit high-salt ingredients, such as soy sauce, bouillon, and garlic salt. Instead of adding salt when cooking, season your food with herbs, spices, and other flavorings. Try lemon, garlic, onion, vinegar, or salt-free herb seasonings. Limit convenience foods, such as boxed or canned foods and restaurant food. Read food labels and choose lower-sodium options. Buy fresh, frozen, or canned vegetables that don't have added salt. Step 3. Limit sugar Pause before you add sugars to pancakes, cereal, coffee, or tea. This includes white and brown table sugar, syrup, honey, and molasses. Cut your usual amount by half. Swap out sugar-filled soda and other drinks. Buy sugar-free or low-calorie beverages. Remember, water is always the best choice. Try adding lemon juice to water for extra flavor. Read labels and choose foods with less added sugar. Keep in mind that dairy foods and foods withfruit will have some natural sugar. Cut the sugar in recipes by 1/3 to 1/2. Boost the flavor with extracts like almond, vanilla, or orange. Or add spices such as cinnamon or nutmeg. Step 4. Eat more fiber Eat fresh fruits and vegetables every day. Boost your diet with whole grains. Go for oats, whole-grain rice, and bran. Add beans and lentils to your meals. Drink more water to match your fiber increase to help prevent constipation. Step 5. Pay attention to serving sizes Remember that a serving size is a standard measurement. It will let you track the amount of fat,calories, and other nutrients in the food you eat. Read the Nutrition Facts label on packaged foods to learn their serving sizes. Use serving sizes to assess how much food you put on your plate. Pay attention to your portions.How many servings are you eating? Keep in mind that your needs may change if you?re more active or less active, or if you have other factors that change your calorie needs. Use your hand to help you measure serving sizes. For example: o 1 teaspoon: This is about the size of the first joint of your thumb. o 1 tablespoon: This is about the size of the first 2 joints of your thumb. o 1 ounce: This is about what you can fit in your cupped hand. o 2 to 3 ounces: This is about the size of the palm of your hand. o cup: This is also about what you can fit in your cupped hand. o 1 cup: This is about the size of your fist. Last Reviewed Date: 03/02/202219997249-5697 [employer]. All rights reserved. This information is not intended as a substitute for professional medical care. Always follow your healthcare professional's instructions. * Pt Handout (on AVS) - Carolyn Whitaker RN - 10/09/2022 10:38 AM EDT Images from the original note were not included. [id number] Steps for Eating Healthier Changing the way you eat can improve your health. It can lower your cholesterol and blood pressure,and help you stay at a healthy weight. Your diet doesn?t have to be bland and boring to be healthy.Just watch your calories and follow these steps: Step 1. Eat fewer unhealthy fats Choose more fish and lean meats instead of fatty cuts of meat. Skip butter and lard, and use less margarine. Replace these with healthier fats, such as olive, canola, or avocado oils. Pass on foods that have palm, coconut, or partially hydrogenated oils. Eat fewer high-fat dairy foods like cheese, ice cream, and whole milk. Get a heart-healthy cookbook and try some new recipes. Step 2. Go light on salt Keep the saltshaker off the table. Limit high-salt ingredients, such as soy sauce, bouillon, and garlic salt. Instead of adding salt when cooking, season your food with herbs, spices, and other flavorings. Try lemon, garlic, onion, vinegar, or salt-free herb seasonings. Limit convenience foods, such as boxed or canned foods and restaurant food. Read food labels and choose lower-sodium options. Buy fresh, frozen, or canned vegetables that don't have added salt. Step 3. Limit sugar Pause before you add sugars to pancakes, cereal, coffee, or tea. This includes white and brown table sugar, syrup, honey, and molasses. Cut your usual amount by half. Swap out sugar-filled soda and other drinks. Buy sugar-free or low-calorie beverages. Remember, water is always the best choice. Try adding lemon juice to water for extra flavor. Read labels and choose foods with less added sugar. Keep in mind that dairy foods and foods withfruit will have some natural sugar. Cut the sugar in recipes by 1/3 to 1/2. Boost the flavor with extracts like almond, vanilla, or orange. Or add spices such as cinnamon or nutmeg. Step 4. Eat more fiber Eat fresh fruits and vegetables every day. Boost your diet with whole grains. Go for oats, whole-grain rice, and bran. Add beans and lentils to your meals. Drink more water to match your fiber increase to help prevent constipation. Step 5. Pay attention to serving sizes Remember that a serving size is a standard measurement. It will let you track the amount of fat,calories, and other nutrients in the food you eat. Read the Nutrition Facts label on packaged foods to learn their serving sizes. Use serving sizes to assess how much food you put on your plate. Pay attention to your portions.How many servings are you eating? Keep in mind that your needs may change if you?re more active or less active, or if you have other factors that change your calorie needs. Use your hand to help you measure serving sizes. For example: o 1 teaspoon: This is about the size of the first joint of your thumb. o 1 tablespoon: This is about the size of the first 2 joints of your thumb. o 1 ounce: This is about what you can fit in your cupped hand. o 2 to 3 ounces: This is about the size of the palm of your hand. o cup: This is also about what you can fit in your cupped hand. o 1 cup: This is about the size of your fist. Last Reviewed Date: 03/02/202219993400-8532 [employer]. All rights reserved. This information is not intended as a substitute for professional medical care. Always follow your healthcare professional's instructions. documented in this encounter Plan of Treatment Upcoming Encounters Date Type Specialty Care Team Description 11/01/2022 Office Visit Orthopedics Bette Ramirez MD [address] [place] [id number] 11/08/2022 Office Visit Cardiology Lukasz Haines, [address] [place] [address] 11/16/2022 Office Visit Orthopedics Jeison Arteaga DO [address] [place] [address] 12/15/2022 Office Visit Nephrology Lili Rodríguez MD [address] [place] [address], [place] [address] 03/22/2023 Office Visit Family Medicine Eldon Dowd MD [address] [place] [address] 05/16/2023 Office Visit Hematology Oncology Patricia Conway MD [address] [place] [address] 10/11[facility]2023 [facility] [address] [place] [facility] [place] [address] Health Maintenance Due Date Last Done Comments COVID-19 Vaccine (6 - Moderna series) 03/13/2022 01/16/2022, 07/18/2021, 02/14/2021, Additional history exists DIABETES-EYE EXAM 04/25/2022 04/25/2021, , 12/30/2018 Influenza Vaccine (FLU shot) (#1) 2022 01/04/2022, 12/28/2020, 12/31/2019, Additional history exists CKD PHOS USE SMARTSET 47050 12/12/202212/01, 12/02/2019, 02/18/2019, Additional history exists Albumin/Creatinine Ratio 03/22/202303/22/2 022, 03/30/2021, 12/02/2019, Additional history exists HbA1c 03/23/2023 09/21/2022, 05/31, 12/12/2021, Additional history exists CKD HGB USE SMARTSET 89339 09/15/202309/14, 05/16/2022, 05/16/2022, Additional history exists DIABETES-FOOT [...] as of this encounter Visit Diagnoses Diagnosis Routine general medical examination at a health care facility- Primary DM type 2 nursing care encounter (HCC) Type II or unspecified type diabetes mellitus without mention of complication, not stated as uncontrolled Risk and functional assessment Screening for unspecified condition Type 2 diabetes mellitus with hemoglobin A1c goal of less than 8.0% (HCC) Dyslipidemia Other and unspecified hyperlipidemia Paroxysmal atrial fibrillation (HCC) Atrial fibrillation HTN, goal below 130/80 Unspecified essential hypertension Chronic diastolic congestive heart failure (HCC) Chronic diastolic heart failure documented in this encounter Care Teams Sales Development Consultant Relationship Specialty Start Date End Date Eldon Dowd MD [address] [place], [place] [id number] PCP - General Family Medicine 12/05/18 documented as of this encounter
--- OUTSIDE RECORDS SUMMARY | 2023-02-27 00:17 | External Medical Summary | Summary of Care ---
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 Project # [id number], COMPUTER SCIENCE PROFESSOR: Basil Everett MD. CRC: GENE Whitney. SUMMARY: To test the hypothesis that Evacetrapib 130 mg, in comparison to placebo, reduces the risk of major adverse coronary events in high-risk vascular disease patients. CONTACTS: During normal business hours, contact study staff at ; after hours Manager Hvac via the [facility] hospital casting wheel operator helper [phone]. 24-hour Global Study Helpline: [phone]. Lipid levels should not be ordered/obtained while this subject is in the Accelerate study. Lipids are being managed in a blinded fashion. If lipid levels are inadvertently obtained, it is important that test results are NOT provided to the patient, study doctor, safety coordinator, or other study team members. Restricted meds while in the study: 1) niacin > 250 mg, 2) gemfibrozil with a potent [id number]. Hyperglycemia 02/18/2012 01/10/2017 NSTEMI (non-ST elevated myocardial [...] Encounter - Amita Armstrong CPhT - 10/11/2022 10:49 AM EDTNo prescriptions requested or ordered in this encounter documented in this encounter Plan of Treatment Upcoming Encounters Date Type Specialty Care Team Description 11/01/2022 Office Visit Orthopedics Bette Ramirez MD [address] [place] [address] 11/08/2022 Office Visit Cardiology Lukasz Haines, DO [address] [place] [address] 11/16/2022 Office Visit Orthopedics Jeison Arteaga, [address] [place] [address] 12/15/2022 Office Visit Nephrology Lili Rodríguez MD [address] [place] [address], [place] [address] 03/22/2023 Office Visit Family Medicine Eldon Dowd MD [facility] [address] [place], [place] [id number] 05/16/2023 Office Visit Hematology Oncology Patricia Conway MD [address] [facility] [place] [address] 10/11/2023 Nurse Only Gini Tapia Nurse Annual Wellness [address] [facility] [place] [address] Health Maintenance Due Date Last Done Comments COVID-19 Vaccine (6 - Moderna series) 03/13/2022 01/16/2022, 07/18/2021, 02/14/2021, Additional history exists DIABETES-EYE EXAM 04/25/2022 04/25/2021, , 12/30/2018 Influenza Vaccine (FLU shot) (#1) 2022 01/04/2022, 12/28/2020, 12/31/2019, Additional history exists CKD PHOS USE SMARTSET 58098 12/12/202212/01, 12/02/2019, 02/18/2019, Additional history exists Albumin/Creatinine Ratio 03/22/2023 022, 03/30/2021, 12/02/2019, Additional history exists HbA1c 03/23/2023 09/21/2022, 05/31, 12/12/2021, Additional history exists CKD HGB USE SMARTSET 27018 09/15/202309/14, 05/16/2022, 05/16/2022, Additional history exists DIABETES-FOOT [...] Visit Diagnoses Diagnosis 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
--- OUTSIDE RECORDS SUMMARY | 2023-02-27 00:17 | External Medical Summary | Summary of Care ---
Author Name Unknown Organization [facility] Address [address] [place] [address] Phone [phone] Care Team Providers Care Boilers And Pressure Vessels Inspector Name Role Phone Eldon Dowd MD Primary Care Provider +1- [phone] Reason for Visit * Reason Onset Date Comments Follow Up 10/09/2022 Medication Update 10/09/2022 Encounter Details Date Type Department Care Team Description 10/09/2022 Telephone [facility] [address] [place] [address] Eldon Dowd MD [address] [place] [address] Follow Up; Medication Update Allergies [...] as of this encounter (statuses as of 10/10/2022) Medications Medication Sig Dispensed Refills Start Date [...] 24 Hour (IMDUR)Indications: Coronary artery disease involving mohegan coronary artery of mohegan heart without angina pectoris,NSTEMI (non-ST elevated myocardial [...] as of this encounter (statuses as of 10/10/2022) Active Problems Problem Noted Date Chronic venous [...] as of this encounter (statuses as of 10/10/2022) Resolved Problems Problem Noted Date Resolved Date Hypertensive kidney disease with chronic kidney disease stage III 10/30/2018 02/12/2020 Overview: Per CKD protocol Chest discomfort 02/23/2015 09/01/2016 Viral URI with cough 03/25/2014 09/01/2016 Accelerate Clinical Trial*[id number] 08/27/2012 08/27/2012 Accelerate Clinical Trial*[id number] 08/27/2012 03/29/2015 Overview: ACCELERATE STUDY. Project # [id number], PANTS BUSHELER: Basil Everett MD. CRC: GENE Whitney. SUMMARY: To test the hypothesis that Evacetrapib 130 mg, in comparison to placebo, reduces the risk of major adverse coronary events in high-risk vascular disease patients. CONTACTS: During normal business hours, contact study staff at ; after hours High Pressure Boiler Operator via the [facility] hospital wash mill operator [phone]. 24-hour Global Study Helpline: [phone]. Lipid levels should not be ordered/obtained while this subject is in the Accelerate study. Lipids are being managed in a blinded fashion. If lipid levels are inadvertently obtained, it is important that test results are NOT provided to the patient, study doctor, business operations coordinator, or other study team members. Restricted meds while in the study: 1) niacin > 250 mg, 2) gemfibrozil with a potent [id number]. Hyperglycemia 02/18/2012 01/10/2017 NSTEMI (non-ST elevated myocardial [...] as of this encounter (statuses as of 10/10/2022) Immunizations Name Administration Dates Next Due COVID-19 [...] reviewed. Eliquis anticoagulation held when hospitalized at [facility] in July 2022 with GI bleeding [...] Elevating LE when he can. Carolyn Whitaker RN Primary Care Nurse Coordinator Reason for Call: Follow Up [...] Ramirez MD [address] [place] [address] 11/08/2022 Office Visit Cardiology Lukasz Haines, DO [address] [place] [address] 11/16/2022 Office Visit Orthopedics Jeison Arteaga, [address] [place] [address] 12/15/2022 Office Visit Nephrology Lili Rodríguez MD [address] [place] [address], [place] [address] 03/22/2023 Office Visit Family Medicine Eldon Dowd MD [address] [place] [address] 05/16/2023 Office Visit Hematology Oncology Patricia Conway MD [address] [facility] [place] [address] 10/11/2023 Nurse Only Gini Tapia Nurse Annual Wellness [address] [place] [address] Health Maintenance Due Date Last Done Comments COVID-19 Vaccine (6 - Moderna series) 03/13/2022 01/16/2022, 07/18/2021, 02/14/2021, Additional history exists DIABETES-EYE EXAM 04/25/2022 04/25/2021, , 12/30/2018 Influenza Vaccine (FLU shot) (#1) 2022 01/04/2022, 12/28/2020, 12/31/2019, Additional history exists CKD PHOS USE SMARTSET 32069 12/12/202212/01, 12/02/2019, 02/18/2019, Additional history exists Albumin/Creatinine Ratio 03/22/202303/22/2 022, 03/30/2021, 12/02/2019, Additional history exists HbA1c 03/23/2023 09/21/2022, 05/31, 12/12/2021, Additional history exists CKD HGB USE SMARTSET 30539 09/15/202309/14, 05/16/2022, 05/16/2022, Additional history exists DIABETES-FOOT [...] filedocumented as of this encounter Care Teams Boilers And Pressure Vessels Inspector Relationship Specialty Start Date End Date Eldon Dowd MD [address] [place] [address] PCP - General Family Medicine 12/05/18 documented as of this encounter
--- OUTSIDE RECORDS SUMMARY | 2023-02-27 00:18 | External Medical Summary | Summary of Care ---
Author Name Unknown Organization [facility] Address [address] [facility] [place] [address] Phone [phone] Care Team Providers Care Administration Assistant Name Role Phone Eldon Dowd MD Primary Care Provider +1- [phone] Reason for Visit * Reason Comments Dosage Adjustment In Person (Anticoag Cl inic) Diabetes Follow-Up Encounter Details Date Type Department Care Team Description 09/21/2022 Office Visit Pharmacy, [place] [address] [place] [address] [facility] [address] [place] [address] Type 2 diabetes mellitus with hemoglobin A1c goal of less than 8.0% ([facility])* Allergies Active Allergy Reactions Severity Noted Date Comments Candesartan Cilexetil 01/04/2012 hyperkalemia Atenolol 08/21/2012 Pt was told not to take this again Other reaction(s): PT WAS TOLD NEVER TO TAKE AGAIN Candesartan High 06/13/2022 Other reaction(s): HYPERKALEMIA Lisinopril Other (Please comment) High 01/16/2014 Hypotension/ Increased creatinine Other reaction(s): INCREASED CREATININE/HYPOTENSION documented as of this encounter (statuses as of 09/21/2022) Medications Medication Sig Dispensed Refills Start Date [...] 24 Hour (IMDUR)Indication s:Coronary artery disease involving [place]sem[place] indian tribe coronary artery of [place]sem[place] indian tribe heart without angina pectoris,NSTEMI (non-ST elevated myocardial infarction) ([facility]) TAKE ONE TABLET BY MOUTH EVERY MORNING. 90 Tab 3 01/26/2020 Active Sotalol HCl 80 MG Oral Tablet (Betapace) TAKE 1/2 TABLET BY MOUTH TWICE DAILY 90 Tablet 3 01/24/2022 3 Active Atorvastatin Calcium 80 MG Oral Tablet (Lipitor)Indicati [...] on 04/13/2022 linaGLIPtin 5 MG Oral Tablet (Tradjenta)Indica tions:Type 2 diabetes mellitus with hemoglobin A1c goal of less than 8.0% ([facility]) Take 1 Tablet by mouth in the morning. 90 Tablet 3 04/04/2022 Active Terazosin HCl 2 MG Oral CapsuleIndication s:HTN, goal below 150/90 TAKE ONE CAPSULE BY MOUTH AT BEDTIME 90 Capsule 1 04/12/2022 Active Probiotic Daily Oral Capsule Take 1 Capsule by mouth in the morning. 0 Active Empagliflozin 10 MG Oral Tablet (Jardiance) TAKE ONE TABLET BY MOUTH IN THE MORNING 30 Tablet 5 06/21/2022 4 Active Carvedilol 12.5 MG Oral Tablet (Coreg)Indication s:CAD (coronary artery disease),Paroxysm al atrial fibrillation (HCC) Take 1 Tablet by mouth in the morning and 1 Tablet before bedtime. 180 Tablet 3 08/25/2022 Active Cephalexin 500 MG Oral Capsule (Keflex)Indicatio ns:Left leg cellulitis Take 1 Capsule by mouth in the morning and 1 Capsule at noon and 1 Capsule before bedtime. 30 Capsule 0 09/15/2022 Active Furosemide 40 MG Oral Tablet (Lasix) Take one tablet in the morning 90 Tablet 3 09/20/2022 Active METRONIDAZOLE 0.75 % EX GELIndications:Ro sacea apply to affected area 45 g 11 05/18/2011 3 Discontinue d(Medicatio n List Clean Up) glipiZIDE ER 2.5 MG Oral Tablet Extended Release 24 Hour (Glucotrol XL) Take 1 Tablet by mouth in the morning. 90 Tablet 3 03/22/2022 3 Discontinue d(End of Procedure) Eliquis 5 MG Oral Tablet (Apixaban)Indicat ions:Paroxysmal atrial fibrillation (HCC) TAKE 1 TABLET TWICE A DAY 180 Tablet 3 03/29/2022 3 Discontinue d(End of Procedure) Loperamide HCl 2 MG Oral Capsule (Imodium) [...] 3 Discontinue d(Medicatio n List Clean Up) documented as of this encounter (statuses as of 09/21/2022) Active Problems Problem Noted Date Chronic venous [...] as of this encounter (statuses as of 09/21/2022) Resolved Problems Problem Noted Date Resolved Date Hypertensive kidney disease with chronic kidney disease stage III 10/30/2018 02/12/2020 Overview: Per CKD protocol Chest discomfort 02/23/2015 09/01/2016 Viral URI with cough 03/25/2014 09/01/2016 Accelerate Clinical Trial*[id number] 08/27/2012 08/27/2012 Accelerate Clinical Trial*[id number] 08/27/2012 03/29/2015 Overview: ACCELERATE STUDY. Project # [id number], MANAGER AGRICULTURAL: Basil Everett MD. CRC: GENE Whitney. SUMMARY: To test the hypothesis that Evacetrapib 130 mg, in comparison to placebo, reduces the risk of major adverse coronary events in high-risk vascular disease patients. CONTACTS: During normal business hours, contact study staff at ; after hours Metal Fabricator via the [facility] arch cushion press operator [phone]. 24-hour Global Study Helpline: [phone]. Lipid levels should not be ordered/obtained while this subject is in the Accelerate study. Lipids are being managed in a blinded fashion. If lipid levels are inadvertently obtained, it is important that test results are NOT provided to the patient, study doctor, utilization coordinator, or other study team members. Restricted meds while in the study: 1) niacin > 250 mg, 2) gemfibrozil with a potent [id number]. Hyperglycemia 02/18/2012 01/10/2017 NSTEMI (non-ST elevated myocardial [...] as of this encounter (statuses as of 09/21/2022) Immunizations Name Administration Dates Next Due COVID-19 mRNA, LNP-s, No Pre serve, 2-Dose Series (Moderna) 06/04/2020,05/07/2020 Covid-19 Mrna, Lnp-s, No Pre serve, Booster (Moderna) 07/18/2021,02/14/2021 Pneumococcal Conjugate Vacc, 13 Valent (Prevnar) 11/19/2014 [...] got money to buy more. Never true 12/31/2019 Within the past 12 months, t he food you bought just didn't last and you didn't have money to get more. Never true 12/31/2019 Sex Assigned at Date Recorded Male 09/10/2018 3:17 PM E DT Job Start Date Occupation Industry Not on file Not on file Not on file documented as of this encounter Progress Notes * Carmenza Kerr, [facility] - 09/21/2022 9:38 AM EDT Medication Therapy Disease Management [facility] - Diabetes Management Progress Note Teodoro Arceo, identified by name and date of , is a 87 year old male being seen for diabetes management/education. Patient presents for return diabetic visit. Presents with son. DIABETES: Current diabetic medications: GlipizideXL 2.5mg daily (ON HOLD) Jardiance 10mg daily Tradjenta 5mg once daily GFR>90 as of 05/16/2022 A1C Goal <8% Medication Injection Site: N/A Lifestyle: Diet: unchanged Glucose Review/SMBG: Readings per patient memory/recall: Patient is currently testing ~1 times a day 80s-150s Hypoglycemia: Does your blood sugar go below 70 mg/dL? No Hyperglycemia symptoms present: none Recent Labs Units 06/15/22 0938 12/12/21 0908 07/18/21 0909 HEMOGLOBIN A1C - [facility] % 8.5* 10.5* 8.1* Recent Labs Units 09/14/22 0940 05/16/22 1612 05/04/22 0907 ESTIMATED GLOMERULAR FILTRATION RATE - [facility] mL/min >90 >90 >90 CREATININE - [facility] mg/dL 0.6 0.6 0.6 HYPERTENSION: Patient on ACEi/ARB: no, INTOLERANT- HYPOTENSION BP Readings from Last 3 Encounters: 09/15/22 151/66 09/08/22 100/62 08/01/22 120/58 Blood pressure at goal: yes HYPERLIPIDEMIA: Patient is taking moderate or high intensity statin: yes HEALTH MAINTENANCE REVIEW: Health Maintenance Due Topic Date Due COVID-19 Vaccine (5 - Moderna series) 09/12/2021 DIABETES-EYE EXAM 04/25/2022 DIABETES-FOOT EXAM 08/30/2022 Depression Screening, Annual for Pts 12 and Over 08/30/2022 ASSESSMENT & PLAN: ICD-10-CM 1. Type 2 diabetes mellitus with hemoglobin A1c goal of less than 8.0% (HCC) E11.9 Considerations: - renal function -->CKD noted on problem list BG Readings - Blood sugars controlled per patient. Has not had any low blood sugars. Agreeable to get A1c completed today- plan to graduate from [facility] services as long as A1c shows reasonable control. Patient agreeable. Medications - Reviewed current regimen, patient is adherent to regimen. Has not taken glipizide. Tolerating jardiance and tradjenta. Reviewed full medication list today with patient and provided updated print out for him. Diet, Exercise, Lifestyle - No significant lifestyle changes since last visit. Patient is agreeable to SMBG 1 time(s) daily. Patient aware to contact clinic if any hypoglycemia before next visit. MEDICATION CHANGES: no change Diabetic Medications: Jardiance 10mg daily Tradjenta 5mg once daily GFR>90 as of 09/14/2022 HEALTH MAINTENANCE INTERVENTIONS: Labs: a1c in process Immunizations: Up to Date Foot Exam: due Eye Exam: due Annual Wellness Visit: N/A FOLLOW UP: TBD/PRN- will send MyG with a1c results tomorrow. Plan to graduate pt if a1c shows reasonable control. Carmenza Kerr RPh Clinical Pharmacist - Security Police Officer Medication Therapy Management Clinic 09/21/2022, 9:39 AM documented in this encounter Plan of Treatment Upcoming Encounters Date Type Specialty Care Team Description 10/04/2022 Hospital Encounter Surgery Allan Persaud, DO [address] [place] [address] 10/04/2022 Surgery Surgery Allan Persaud, [address] [place] [address] INJECTION SACROILIAC JOINT 10/09/2022 Nurse Only Nurse Holden Annual Wellness [address] [place] [address] [place] [address] 11/08/2022 Office Visit Cardiology Lukasz Haines, DO [address] [place] [address] 11/16/2022 Office Visit Orthopedics Jeison Arteaga, DO [address] [place] [address] 12/15/2022 Office Visit Nephrology Lili Rodríguez MD [address] [facility] [place] [address] 03/22/2023 Office Visit Family Medicine Eldon Dowd MD [address] [place] [address] 05/16/2023 Office Visit Hematology Oncology Patricia Conway MD [address] [facility] [place] [address] Pending Results Name Type Priority Associated Diagnoses Date /Time HEMOGLOBIN A1C Lab Routine Type 2 diabetes mellitus with hemoglobin A1c goal of less than 8.0% ([facility]) 09/21/2022 10:06 AM EDT Scheduled Orders Name Type Priority Associated Diagnoses Orde r Schedule HEMOGLOBIN A1C Lab Routine Type 2 diabetes mellitus with hemoglobin A1c goal of less than 8.0% (HCC) Expected: 09/28/2022 (Approximate), Expires: 09/22/2023 Scheduled Procedures Name Priority Associated Diagnoses Date/Ti me INJECTION SACROILIAC JOINT Inflammation of sacroiliac joint (HCC) 10/04/2022 9:40 AM EDT Health Maintenance Due Date Last Done Comments COVID-19 Vaccine (5 - Moderna series) 09/12/2021 07/18/2021, 02/14/2021, 06/04/2020, Additional history exists DIABETES-EYE EXAM 04/25/2022 04/25/2021, , 12/30/2018 DIABETES-FOOT EXAM 08/30/2022 08/30/2021, 0 10/31/2019, 10/30/2018 Depression Screening, Annual for Pts 12 and Over 08/30/2022 08/30/2021 CKD PHOS USE SMARTSET 76945 12/12/202212/01, 12/02/2019, 02/18/2019, Additional history exists HbA1c 12/16/2022 06/15/2022, 12/01, 07/18/2021, Additional history exists Albumin/Creatinine Ratio 03/22/2023 022, 03/30/2021, 12/02/2019, Additional history exists CKD HGB USE SMARTSET 26393 09/15/202309/14, 05/16/2022, 05/16/2022, Additional history exists DTaP,Tdap,and Td Vaccines (2 - Td or Tdap) 05/24/2025 05/24/2015, 03/14/2006, 05/03/1993 Pneumococcal Vaccine: 65+ Years Completed 11/19/2014, 02/17/2005, 01/31/1998 Zoster Vaccines Completed 07/12/2021, 10/05/2018, 01/06/2011 Influenza Vaccine (FLU shot) Completed 07/2021, 12/28/2020, 12/31/2019, Additional history exists GARDASIL-HPV IMMUNIZATION SERIES Aged [...] as of this encounter Visit Diagnoses Diagnosis Type 2 diabetes mellitus with hemoglobin A1c goal of less than 8.0% (HCC)- Primary Inflammation of sacroiliac joint (HCC) Sacroiliitis, not elsewhere classified documented in this encounter Care Teams Administration Assistant Relationship Specialty Start Date End Date Eldon Dowd MD [address] [place] [address] PCP - General Family Medicine 12/05/18 documented as of this encounter
--- OUTSIDE RECORDS SUMMARY | 2023-02-27 00:18 | External Medical Summary | Summary of Care ---
Author Name Unknown Organization [facility] Address [address] [place] [address] Phone [phone] Care Team Providers Care Filters Assembler Name Role Phone Eldon Dowd MD Primary Care Provider [phone]- [phone] Reason for Visit * Reason Onset Date Comments FYI 09/22/2022 Encounter Details Date Type Department Care Team Description 09/22/[address] [id number] [facility] [address] [place] [address] FYI Allergies Active Allergy Reactions Severity Noted Date Comments Candesartan Cilexetil 01/04/2012 hyperkalemia Atenolol 08/21/2012 Pt was told not to take this again Other reaction(s): PT WAS TOLD NEVER TO TAKE AGAIN Candesartan High 06/13/2022 Other reaction(s): HYPERKALEMIA Lisinopril Other (Please comment) High 01/16/2014 Hypotension/ Increased creatinine Other reaction(s): INCREASED CREATININE/HYPOTENSION documented as of this encounter (statuses as of 09/22/2022) Medications Medication Sig Dispensed Refills Start Date [...] 24 Hour (IMDUR)Indications: 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 Project # [id number], OLERICULTURE PROFESSOR: Basil Everett MD. CRC: GENE Whitney. SUMMARY: To test the hypothesis that Evacetrapib 130 mg, in comparison to placebo, reduces the risk of major adverse coronary events in high-risk vascular disease patients. CONTACTS: During normal business hours, contact study staff at ; after hours Ep Specialist via the [facility] [place] [place] hospital tower control operator [phone]. 24-hour Global Study Helpline: [phone]. Lipid levels should not be ordered/obtained while this subject is in the Accelerate study. Lipids are being managed in a blinded fashion. If lipid levels are inadvertently obtained, it is important that test results are NOT provided to the patient, study doctor, educational resource coordinator, or other study team members. Restricted meds while in the study: 1) niacin > 250 mg, 2) gemfibrozil with a potent [id number]. Hyperglycemia 02/18/2012 01/10/2017 NSTEMI (non-ST elevated myocardial [...] as of this encounter (statuses as of 09/22/2022) Immunizations Name Administration Dates Next Due COVID-19 [...] encounter Miscellaneous Notes * Telephone Encounter - Carmenza Kerr RPh - 09/22/2022 7:56 AM EDT Hemoglobin AIC Results: Lab Results Component Value Date/Time HEMOGLOBIN A1C - [facility] 7.5 (H) 09/21/2022 10:06 AM HEMOGLOBIN A1C - [facility] 8.5 (H) 06/15/2022 09:38 AM HEMOGLOBIN A1C - [facility] 10.5 (H) 12/12/2021 09:08 AM HEMOGLOBIN A1C - [facility] 7.3 (H) 08/29/2019 11:50 AM HEMOGLOBIN A1C - [facility] 6.4 (H) 02/18/2019 11:24 AM HEMOGLOBIN A1C - [facility] 6.6 (H) 10/30/2018 09:51 AM Discharge at this time due to great control. Welcome future referrals as appropriate. Thank you forallowing us to participate in the care of this patient. [employer] message sent to patient. Carmenza Kerr, PharmD Clinical Pharmacist Medication Therapy Disease Management 09/22/2022, 7:56 AM documented in this encounter Plan of Treatment Upcoming Encounters Date Type Specialty Care Team Description 10/04/2022 Hospital Encounter Surgery Allan Persaud, DO [address] [place] [address] 10/04/2022 Surgery Surgery Allan Persaud DO [address] [place] [address] INJECTION SACROILIAC JOINT 10/09/2022 Nurse Only Nurse [facility] [address] [facility] [place] [id number] 11/08/2022 Office Visit Cardiology Lukasz Haines, DO [address] [place] [address] 11/16/2022 Office Visit Orthopedics Jeison Arteaga, DO [address] [place] [address] 12/15/2022 Office Visit Nephrology Lili Rodríguez MD [address] [facility] [place] [address] 03/22/2023 Office Visit Family Medicine Eldon Dowd MD [address] [place] [address] 05/16/2023 Office Visit Hematology Oncology Patricia Conway MD [address] [place] [address] Scheduled Procedures Name Priority Associated Diagnoses Date/Ti [...] Over 08/30/2022 08/30/2021 CKD PHOS USE SMARTSET 82224 12/12/202212/01, 12/02/2019, 02/18/2019, Additional history exists Albumin/Creatinine Ratio 03/22/2023 022, 03/30/2021, 12/02/2019, Additional history exists HbA1c 03/23/2023 09/21/2022, 0308/2022, 12/12/2021, Additional history exists CKD HGB USE SMARTSET 45033 09/15/202309/14, 05/16/2022, 05/16/2022, Additional history exists DTaP,Tdap,and Td Vaccines (2 - Td or Tdap) 05/24/2025 05/24/2015, 03/14/2006, 05/03/1993 Pneumococcal Vaccine: 65+ Years Completed 11/19/2014, 02/17/2005, 01/31/1998 Zoster Vaccines Completed 07/12/2021, 1005/2018, 01/06/2011 Influenza Vaccine (FLU shot) Completed 07/2021, [...] classified documented in this encounter Care Teams Filters Assembler Relationship Specialty Start Date End Date Eldon Dowd MD [address] [place], [place] [phone] PCP - General Family Medicine 12/05/18 documented as of this encounter
--- OUTSIDE RECORDS SUMMARY | 2023-02-27 00:18 | External Medical Summary ---
Author Name Unknown Address Unknown Organization K01:[facility] [place] [address] [facility] [address] Laboratory Report Ordering Provider Test Date Status SAE JETER 09/21/2022 10:06:47 Final Observation Date Value Abnormality Reference (Units ) Status HbA1C 09/21/2022 10:06:47 7.5 Above high normal 4. 0-5.6 (%) Final The use of HbA1c to monitor glycemic status is based on normal hemoglobin and HbA composition. This test should not be used in patients with abnormal hemoglobin that affects the half life of the red blood cell or the in vivo glycation rates. Glucose, estimated average 09/21/2022 10:06:47 169 Above high normal <126 (mg/dL) Blayne cub[place] Performing Location [facility] [place] [address] [place] [address]
--- OUTSIDE RECORDS SUMMARY | 2023-02-27 00:18 | External Medical Summary | Summary of Care ---
Author Name Unknown Organization [facility] Address [address] [place] [address] Phone [phone] Care Team Providers Care Hearing Aid Assembly Supervisor Name Role Phone Eldon Dowd MD Primary Care Provider [phone] Reason for Visit * Reason Comments Acute Pt states that he wilson s a swell, leg and feet, pt states that he was at urgent care on Sunday Encounter Details Date Type Department Care Team Description 09/15/2022 Office Visit [facility] [address] [place] [address] Karolina Valiente MD [address] [place] [address] Chronic venous insufficiency of lower extremity*; Left leg cellulitis; Chronic diastolic congestive heart failure (HCC); HTN, goal below 130/80; 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); Paroxysmal atrial fibrillation (HCC) Allergies Active Allergy Reactions Severity Noted Date Comments Candesartan Cilexetil 01/04/2012 hyperkalemia Atenolol 08/21/2012 Pt was told not to take this again Other reaction(s): PT WAS TOLD NEVER TO TAKE AGAIN Candesartan High 06/13/2022 Other reaction(s): HYPERKALEMIA Lisinopril Other (Please comment) High 01/16/2014 Hypotension/ Increased creatinine Other reaction(s): INCREASED CREATININE/HYPOTENSION documented as of this encounter (statuses as of 09/15/2022) Medications Medication Sig Dispensed Refills Start Date End Date Status CENTRUM PO TABS as directed 0 0 07/03/2008 Active ASPIRIN 81 MG PO CHEWIndications:O ther specified prophylactic or treatment measure One pill by mouth once a day with food 100 Tab 5 05/12/2010 Active METRONIDAZOLE 0.75 % EX GELIndications:Ro sacea apply to affected area 45 g 11 05/18/2011 Active COENZYME Q10 400 MG PO CAPSIndications:H [...] of breath 1 Inhaler 3 09/06/2018 Active Isosorbide Mononitrate ER 60 MG Oral Tablet Extended Release 24 Hour (IMDUR)Indication s:Coronary artery disease involving cocopah coronary artery of cocopah heart without angina pectoris,NSTEMI (non-ST elevated myocardial [...] 10 mg Oral Daily(AM), Reported on 04/13/2022 glipiZIDE ER 2.5 MG Oral Tablet Extended Release 24 Hour (Glucotrol XL) Take 1 Tablet by mouth in the morning. 90 Tablet 3 03/22/2022 Active Eliquis 5 MG Oral Tablet (Apixaban)Indicat ions:Paroxysmal atrial fibrillation (HCC) TAKE 1 TABLET TWICE A DAY 180 Tablet 3 03/29/2022 Active linaGLIPtin 5 MG Oral Tablet (Tradjenta)Indica [...] by mouth in the morning. 0 Active Loperamide HCl 2 MG Oral Capsule (Imodium) Take 1 Capsule by mouth 4 times a day as needed for Diarrhea. 0 Active Clinitest Rapid COVID-19 Test In Vitro Kit (COVID-19 At Home Antigen Test) use as directed 5 Kit 5 05/30/2022 Active Empagliflozin 10 MG Oral Tablet (Jardiance) TAKE ONE TABLET BY MOUTH IN THE MORNING 30 Tablet 5 06/21/2022 Active Ferrous Sulfate 220 (44 Fe) MG/5ML Oral Elixir (Feosol) Take 325 mg (7.4 mL) orally daily in the morning 473 mL 0 07/11/2022 Active Pantoprazole Sodium 40 MG Oral Tablet Delayed Release (Protonix) Take 1 tablet (40 mg) by mouth twice a day for 30 days 60 Tablet 0 07/11/2022 Active Sucralfate 1 GM/10ML Oral Suspension (Carafate) Take 10ml (2 teaspoons) by mouth twice a day for 30 days 600 mL 0 07/11/2022 Active Bisacodyl 5 MG Oral Tablet Delayed Release (Dulcolax) take 1 tablet (5 mg) orally twice a day As Needed for constipation 25 Tablet 0 07/23/2022 Active Colace Clear 50 MG Oral Capsule (Docusate Sodium) 50 mg orally twice a day As Needed for constipation 60 Capsule 0 07/23/2022 Active Carvedilol 12.5 MG Oral Tablet (Coreg)Indication [...] before bedtime. 30 Capsule 0 09/15/2022 Active Cephalexin 500 MG Oral Capsule (Keflex)Indicatio ns:Left leg cellulitis Take 1 Capsule by mouth in the morning and 1 Capsule at noon and 1 Capsule before bedtime. Do all this for 10 days. 30 Capsule 0 09/08/2022 3 Discontinue d(Refill) documented as of this encounter (statuses as of 09/15/2022) Active Problems Problem Noted Date Chronic venous [...] as of this encounter (statuses as of 09/15/2022) Resolved Problems Problem Noted Date Resolved Date Hypertensive kidney disease with chronic kidney disease stage III 10/30/2018 02/12/2020 Overview: Per CKD protocol Chest discomfort 02/23/2015 09/01/2016 Viral URI with cough 03/25/2014 09/01/2016 Accelerate Clinical Trial*[id number] 08/27/2012 08/27/2012 Accelerate Clinical Trial*[id number] 08/27/2012 03/29/2015 Overview: ACCELERATE STUDY. Project # [id number], SUPERVISOR OF OFFICIALS: Basil Everett MD. CRC: GENE Whitney. SUMMARY: To test the hypothesis that Evacetrapib 130 mg, in comparison to placebo, reduces the risk of major adverse coronary events in high-risk vascular disease patients. CONTACTS: During normal business hours, contact study staff at ; after hours Bruise Trimmer via the [facility] hospital shirring machine operator [phone]. 24-hour Global Study Helpline: [phone]. Lipid levels should not be ordered/obtained while this subject is in the Accelerate study. Lipids are being managed in a blinded fashion. If lipid levels are inadvertently obtained, it is important that test results are NOT provided to the patient, study doctor, mailroom coordinator, or other study team members. Restricted meds while in the study: 1) niacin > 250 mg, 2) gemfibrozil with a potent [id number]. Hyperglycemia 02/18/2012 01/10/2017 NSTEMI (non-ST elevated myocardial [...] as of this encounter (statuses as of 09/15/2022) Immunizations Name Administration Dates Next Due COVID-19 [...] Date Smoking Tobacco: Never Smokeless Tobacco: Never Tobacco Cessation:Counseling Given: [...] Sign Reading Time Taken Comments Blood Pressure 151/66 09/15/2022 10:11 AM EDT Pulse 65 09/15/2022 10:11 AM EDT Temperature 36.8 C (98.2 F) 09/15/2022 10:11 AM E DT Respiratory Rate 16 09/15/2022 10:11 AM EDT Oxygen Saturation 97% 09/15/2022 10:11 AM EDT Inhaled Oxygen Concentration - - Weight 72.4 kg (159 lb 9.6 oz) 09/15/2022 10:11 AM EDT Height 172.7 cm (5' 8") 09/15/2022 10:11 AM EDT Body Mass Index 24.27 09/15/2022 10:11 AM EDT documented in this encounter Patient Instructions * Patient Instructions* Karolina Valiente MD - 09/15/2022 5:14 PM EDT Vertascale Compression socks work by gently compressing (we like to think of it more like a hug) your leg to move blood more efficiently through your leg. They help guide blood up and through the leg, preventing varicose veins, swelling, and blood pooling. Compression socks can be worn running, at work, hiking, traveling, and are often prescribed to people with chronic illness by doctors. Now you may be wondering, which compression level is right for me? Answer: Generally speaking, the highest level you can stand, is the one you should aim for. But start at lowest rating, and go up from there! Compression is generally considered medical grade if its 20 mmHg and above. WHAT IS MMHG? MmHg or millimeters of mercury is a measurement of pressure, originating from the pressure a 1 millimeter-high column of mercury could generate. Despite this, its not a common measurement outside the medical field. Within medicine though, mmHg is commonly used; both intracranial pressure (pressure inside the skull) and blood pressure are measured in mmHg. For science lovers out there, 1 mmHg is equivalent to 1/706th of an atmosphere of pressure. COMPRESSION SOCKS AND MMHG Compression socks and stockings arent all the same. They are made according to different levels of compression. This compression comes in a range divided into different classes under two main classifications: Afnor ([employer] Normal[employer]) and RAL ( Union classifications). Each classification utilizes ranges, as compression garments are crafted with graduating levels of compression. This means the compression is highest at the ankle (which is the higher number of theranges below), and slowly decreases as it moves up your leg (terminating at the lower number in each range). Below is an outline of how both systems break down the level of compression: Afnor: Class 1: 10-15 mmHg (Very light compression) Class 2: 15-20 mmHg (Light compression) Class 3: 20-36 mmHg (Moderate compression) Class 4: 36+ mmHg (Strong compression) RAL: Class 1: 18-21 mmHg (Light compression) Class 2: 23-32 mmHg (Moderate compression) Class 3: 34-46 mmHg (Strong compression) Class 4: 49- mmHg (Very strong compression) Generally speaking, the highest level you can stand, is the one you should aim for. But start at lowest rating, and go up from there! Compression is generally considered medical grade if its 20 mmHg and above. Use socks only during the day, during activity. Take them off before bedtime. Keep them clean, regularly launder. Keep your skin clean and regularly apply hypoallergenic lotion like Eucerin or Cetaphil or Aveeno to your lower legs to keep the skin healthy. Avoid too much salt! documented in this encounter Progress Notes * Karolina Valiente MD - 09/15/2022 10:13 AM EDT ASSESSMENT / PLAN: Teodoro Arceo is a 87 year old male with PMHx paroxysmal atrial fibrillation on sotalol, chronic diastolic heart failure, chronic coronary artery disease with drug-eluting stent placement to themid-LAD 2011, dyslipidemia, and hypertension - here for f/u lower extremity edema Without symptoms of dyspnea, fatigue, cough or SOB or CP. Recommend continue furosemide Avoid excessive sodium intake - this means no more gatorade - just water please Extensively reviewed compression stockings - don't have to be super tight - reviewed spectrum of levels of compression, and use. Recommend one additional round of abx today as well, RTC if no improvement. Chronic venous insufficiency of lower extremity (Primary) Left leg cellulitis - Cephalexin 500 MG Oral Capsule (Keflex); Take 1 Capsule by mouth in the morning and 1 Capsule at noon and 1 Capsule before bedtime. 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 Leg swollen and red. Arrival Time: 9:59 AM HPI: Teodoro Arceo is a 87 year old male. Here for recheck. Seen at 09/08 for LLE redness and swelling, acute on chronic, x 2 days - given keflex TID and advised to elevate/wear compression Here 1 week later with left lower leg is still red and swollen but is over all improving He says he does take lasix daily Weight is not up, if anything is decreased No SOB or dyspnea or fatigue Family member here and states pt is drinking gatorade diet regularly, and wondering if too much salt? 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 Type 2 diabetes mellitus with hemoglobin A1c goal of less than 8.0% ([facility]) E11.9 Paroxysmal atrial fibrillation ([facility]) I48.0 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 Chronic diastolic congestive heart failure ([facility]) I50.32 Renal osteodystrophy N25.0 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 Hypertensive kidney disease with stage 3a chronic kidney disease I12.9, N18.31 Chronic kidney disease, stage 3a ([facility]) N18.31 Type 2 diabetes mellitus with stage 3 chronic kidney disease ([facility]) E11.22, N18.30 Chronic venous insufficiency of lower extremity I87.2 Current Outpatient Medications Medication Sig Dispense Refill CENTRUM PO TABS as directed 0 0 ASPIRIN 81 MG PO CHEW One pill by mouth once a day with food 100 Tab 5 METRONIDAZOLE 0.75 % EX GEL apply to affected area 45 g 11 COENZYME Q10 400 MG PO CAPS 1 CAPSULE DAILY 30 Cap 5 Glucose Blood (ONETOUCH VERIO) STRP Use up to 1 times a day E11.9 100 Strip 3 albuterol HFA (PROVENTIL HFA) 108 (90 BASE) MCG/ACT inhaler Use 2 puffs every 4-6hrs as needed for wheezing/shortness of breath 1 Inhaler 3 Isosorbide Mononitrate ER 60 MG Oral [...] mouth in the morning.) 100 Tablet 5 glipiZIDE ER 2.5 MG Oral Tablet Extended Release 24 Hour (Glucotrol XL) Take 1 Tablet by mouth in the morning. 90 Tablet 3 Eliquis 5 MG Oral Tablet (Apixaban) TAKE 1 TABLET TWICE A DAY 180 Tablet 3 linaGLIPtin 5 MG Oral Tablet (Tradjenta) Take 1 Tablet by mouth in the morning. 90 Tablet 3 Terazosin HCl 2 MG Oral Capsule TAKE ONE CAPSULE BY MOUTH AT BEDTIME 90 Capsule 1 Probiotic Daily Oral Capsule Take 1 Capsule by mouth in the morning. Loperamide HCl 2 MG Oral Capsule (Imodium) Take 1 Capsule by mouth 4 times a day as needed for Diarrhea. Clinitest Rapid COVID-19 Test In Vitro Kit (COVID-19 At Home Antigen Test) use as directed 5 Kit 5 Empagliflozin 10 MG Oral Tablet (Jardiance) TAKE ONE TABLET BY MOUTH IN THE MORNING 30 Tablet 5 Ferrous Sulfate 220 (44 Fe) MG/5ML Oral Elixir (Feosol) Take 325 mg (7.4 mL) orally daily in the morning 473 mL 0 Pantoprazole Sodium 40 MG Oral Tablet Delayed Release (Protonix) Take 1 tablet (40 mg) by mouthtwice a day for 30 days 60 Tablet 0 Sucralfate 1 GM/10ML Oral Suspension (Carafate) Take 10ml (2 teaspoons) by mouth twice a day for 30 days 600 mL 0 Bisacodyl 5 MG Oral Tablet Delayed Release (Dulcolax) take 1 tablet (5 mg) orally twice a day As Needed for constipation 25 Tablet 0 Colace Clear 50 MG Oral Capsule (Docusate Sodium) 50 mg orally twice a day As Needed for constipation 60 Capsule 0 Carvedilol 12.5 MG Oral Tablet (Coreg) Take 1 Tablet by mouth in the morning and 1 Tablet before bedtime. 180 Tablet 3 Cephalexin 500 MG Oral Capsule (Keflex) Take 1 Capsule by mouth in the morning and 1 Capsule atnoon and 1 Capsule before bedtime. 30 Capsule 0 No current facility-administered medications for this visit. OBJECTIVE: BP 151/66 (BP Site: Right Arm, BP Position: Sitting, BP Cuff Size: Regular) | Pulse 65 | Temp 36.8 C (98.2 F) (Temporal Artery) | Resp 16 | Ht 1.727 m (5' 8") | Wt 72.4 kg (159 lb 9.6 oz) | SpO2 97% | BMI 24.27 kg/m | BSA 1.86 m Vitals reviewed and is normotensive afebrile and not tachycardic General: No acute distress. Neuro: Alert Pleasant & interactive. Respiratory: Good inspiratory effort, no labored breathing. HEENT: Conjunctivae appear clear. No swelling noted face or lips. MSK: left lower ext with mild erythema and 2+ edema up to mid cochran, small blister on posterior leg at achilles without purulent drainage. RLE with 2+ edema and no erythema , up to ankle. Psych: Normal affect. Fluent speech. Karolina Valiente MD [facility], [address] [address] Patient Instructions Vertascale Compression socks work by gently compressing (we like to think of it more like a hug) your leg to move blood more efficiently through your leg. They help guide blood up and through the leg, preventing varicose veins, swelling, and blood pooling. Compression socks can be worn running, at work, hiking, traveling, and are often prescribed to people with chronic illness by doctors. Now you may be wondering, which compression level is right for me? Answer: Generally speaking, the highest level you can stand, is the one you should aim for. But start at lowest rating, and go up from there! Compression is generally considered medical grade if its 20 mmHg and above. WHAT IS MMHG? MmHg or millimeters of mercury is a measurement of pressure, originating from the pressure a 1 millimeter-high column of mercury could generate. Despite this, its not a common measurement outside the medical field. Within medicine though, mmHg is commonly used; both intracranial pressure (pressure inside the skull) and blood pressure are measured in mmHg. For science lovers out there, 1 mmHg is equivalent to 1/706th of an atmosphere of pressure. COMPRESSION SOCKS AND MMHG Compression socks and stockings arent all the same. They are made according to different levels of compression. This compression comes in a range divided into different classes under two main classifications: Afnor (Association Fr[employer]ise [employer] Normalisation) and RAL ( Union classifications). Each classification utilizes ranges, as compression garments are crafted with graduating levels of compression. This means the compression is highest at the ankle (which is the higher number of theranges below), and slowly decreases as it moves up your leg (terminating at the lower number in each range). Below is an outline of how both systems break down the level of compression: Afnor: Class 1: 10-15 mmHg (Very light compression) Class 2: 15-20 mmHg (Light compression) Class 3: 20-36 mmHg (Moderate compression) Class 4: 36+ mmHg (Strong compression) RAL: Class 1: 18-21 mmHg (Light compression) Class 2: 23-32 mmHg (Moderate compression) Class 3: 34-46 mmHg (Strong compression) Class 4: 49- mmHg (Very strong compression) Generally speaking, the highest level you can stand, is the one you should aim for. But start at lowest rating, and go up from there! Compression is generally considered medical grade if its 20 mmHg and above. Use socks only during the day, during activity. Take them off before bedtime. Keep them clean, regularly launder. Keep your skin clean and regularly apply hypoallergenic lotion like Eucerin or Cetaphil or Aveeno to your lower legs to keep the skin healthy. Avoid too much salt! documented in this encounter Nursing Notes * TR Haro - 09/15/2022 10:11 AM EDT Teodoro Arceo is a 87 year old male who presents today for Chief Complaint Patient presents with Acute Pt states that he has a swell, leg and feet, pt states that he was at urgent care on Sunday documented in this encounter Plan of Treatment Upcoming Encounters Date Type Specialty Care Team Description 09/21/2022 Office Visit Pharmacy [facility] [address] [place] [address] 10/04/2022 Hospital Encounter Surgery Allan Persaud, [address] [place] [id number] 10/04/2022 Surgery Surgery Allan Persaud DO [address] [place] [id number] INJECTION SACROILIAC JOINT 10/09/2022 Nurse Only Ancillary Nurse [facility] [address] [place] [address] 11/08/2022 Office Visit Cardiology Lukasz Haines, DO [address] [place] [address] 11/16/2022 Office Visit Orthopedics Jeison Arteaga, DO [address] [facility] [place] [id number] 12/15/2022 Office Visit Nephrology Lili Rodríguez MD [address] [place] [address] 03/22/2023 Office Visit Family Medicine Eldon Dowd MD [address] [place] [address] 05/16/2023 Office Visit Hematology Oncology Patricia Conway MD [address] [place] [address] Scheduled Procedures Name Priority Associated Diagnoses Date/Ti [...] Over 08/30/2022 08/30/2021 CKD PHOS USE SMARTSET 62318 12/12/202212/01, 12/02/2019, 02/18/2019, Additional history exists HbA1c 12/16/2022 06/15/2022, 12/01, 07/18/2021, Additional history exists Albumin/Creatinine Ratio 03/22/2023 022, 03/30/2021, 12/02/2019, Additional history exists CKD HGB USE SMARTSET 73456 09/15/202309/14, 05/16/2022, 05/16/2022, Additional history exists DTaP,Tdap,and Td Vaccines (2 - Td or Tdap) 05/24/2025 05/24/2015, 03/14/2006, 05/03/1993 Pneumococcal Vaccine: 65+ Years Completed 11/19/2014, 02/17/2005, 01/31/1998 Zoster Vaccines Completed 07/12/2021, 05/2018, 01/06/2011 Influenza Vaccine (FLU shot) Completed 07/2021, [...] of this encounter Visit Diagnoses Diagnosis Chronic venous insufficiency of lower extremity- Primary Left leg cellulitis Cellulitis and abscess of leg, except foot Chronic diastolic congestive heart failure (HCC) Chronic diastolic heart failure HTN, goal below 130/80 Unspecified essential hypertension 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
--- OUTSIDE RECORDS SUMMARY | 2023-02-27 00:18 | External Medical Summary | Summary of Care ---
Author Name Unknown Organization [facility] Address [address] [facility] [place] [address] Phone [phone] Care Team Providers Care Crap Game Box Person Name Role Phone Eldon Dowd MD Primary Care Provider [phone]- [phone] Reason for Visit * Reason Onset Date Comments Medication Question 09/18/2022 Encounter Details Date Type Department Care Team Description 09/18/2022 Telephone Cardiology, [facility] [address] [place] [id number] Ramandeep Santana PA-C [address] [place] [address] Medication Question Allergies Active Allergy Reactions Severity Noted Date Comments Candesartan Cilexetil 01/04/2012 hyperkalemia Atenolol 08/21/2012 Pt was told not to take this again Other reaction(s): PT WAS TOLD NEVER TO TAKE AGAIN Candesartan High 06/13/2022 Other reaction(s): HYPERKALEMIA Lisinopril Other (Please comment) High 01/16/2014 Hypotension/ Increased creatinine Other reaction(s): INCREASED CREATININE/HYPOTENSION documented as of this encounter (statuses as of 09/20/2022) Medications Medication Sig Dispensed Refills Start Date End Date Status CENTRUM PO TABS as directed 0 0 07/03/2008 Active ASPIRIN 81 MG PO CHEWIndications:Ot her specified prophylactic or treatment measure One pill by mouth once a day with food 100 Tab 5 05/12/2010 Active METRONIDAZOLE 0.75 % EX GELIndications:Ros acea apply to affected area 45 g 11 05/18/2011 Active COENZYME Q10 400 MG PO CAPSIndications:Hi [...] for wheezing/shortness of breath 1 Inhaler 3 09/06/2018 Active Isosorbide Mononitrate ER 60 MG Oral Tablet Extended Release 24 Hour (IMDUR)Indications :Coronary artery disease involving southern ute coronary artery of southern ute heart without angina pectoris,NSTEMI (non-ST elevated myocardial [...] 03/22/2022 Active Eliquis 5 MG Oral Tablet (Apixaban)Indicati ons:Paroxysmal atrial fibrillation (HCC) TAKE 1 TABLET TWICE A DAY 180 Tablet 3 03/29/2022 Active linaGLIPtin 5 MG Oral Tablet (Tradjenta)Indicat [...] MORNING 30 Tablet 5 06/21/2022 06/21/2023 Active Ferrous Sulfate 220 (44 Fe) MG/5ML [...] 07/23/2022 Active Carvedilol 12.5 MG Oral Tablet (Coreg)Indications :CAD (coronary artery disease),Paroxysma l atrial fibrillation (HCC) Take 1 Tablet by mouth in the morning and 1 Tablet before bedtime. 180 Tablet 3 08/25/2022 Active Cephalexin 500 MG Oral Capsule (Keflex)Indication s:Left leg cellulitis Take 1 Capsule by mouth in the morning and 1 Capsule at noon and 1 Capsule before bedtime. 30 Capsule 0 09/15/2022 Active documented as of this encounter (statuses as of 09/20/2022) Active Problems Problem Noted Date Chronic venous [...] as of this encounter (statuses as of 09/20/2022) Resolved Problems Problem Noted Date Resolved Date Hypertensive kidney disease with chronic kidney disease stage III 10/30/2018 02/12/2020 Overview: Per CKD protocol Chest discomfort 02/23/2015 09/01/2016 Viral URI with cough 03/25/2014 09/01/2016 Accelerate Clinical Trial*[id number] 08/27/2012 08/27/2012 Accelerate Clinical Trial*[id number] 08/27/2012 03/29/2015 Overview: ACCELERATE STUDY. Project # [id number], CAR BRACER: Basil Everett MD. CRC: GENE Whitney. SUMMARY: To test the hypothesis that Evacetrapib 130 mg, in comparison to placebo, reduces the risk of major adverse coronary events in high-risk vascular disease patients. CONTACTS: During normal business hours, contact study staff at ; after hours Stacker Driver via the [facility] tape making machine operator [phone]. 24-hour Global Study Helpline: [phone]. Lipid levels should not be ordered/obtained while this subject is in the Accelerate study. Lipids are being managed in a blinded fashion. If lipid levels are inadvertently obtained, it is important that test results are NOT provided to the patient, study doctor, internship coordinator, or other study team members. Restricted meds while in the study: 1) niacin > 250 mg, 2) gemfibrozil with a potent [id number]. Hyperglycemia 02/18/2012 01/10/2017 NSTEMI (non-ST elevated myocardial [...] as of this encounter (statuses as of 09/20/2022) Immunizations Name Administration Dates Next Due COVID-19 [...] encounter Miscellaneous Notes * Telephone Encounter - Ramandeep Santana PA-C - 09/20/2022 1:45 PM EDT Continue current dose of diuretic. I believe patient needed refill of furosemide? * Telephone Encounter - Uche Turcios RN - 09/20/2022 1:23 PM EDT Called and spoke to the patient and he is taking the Furosemide 40 mg daily and the baby ASA 81 mg daily. He will remain off the Eliquis. * Telephone Encounter - SADAF Wade - 09/19/2022 4:29 PM EDT Pt called stating he has been taking furosemide 40 mg once a day. Pt would like a call back at [phone]. Thanks, Mary Olsen Plant Buyer [facility] ([facility]) 09/19/2022,4:31 PM * Telephone Encounter - Ramandeep Santana PA-C - 09/19/2022 3:58 PM EDT Per hospital discharge and per prior telephone encounters, patient was taken off Eliquis at time ofGI bleed. He is maintained in NSR on sotalol. Would remain off Eliquis at this time. If he has recurrent afib, can re-discuss initiation in the future. While off Eliquis, he should still take ASA 81 mg daily. Please verify. Recent PCP note, furosemide was to be continued. Per hosp notes, he was discharged on furosemide 40 mg in the morning. Is he taking furosemide twiceper day? Please clarify Recent BMP was stable * Telephone Encounter - Uche Turcios RN - 09/19/2022 2:30 PM EDT Called and spoke to the patient. I explained that on his discharge instruction from the hospital inApril 2022 his Lasix and the Eliquis was discontinued. He state he wasn't sure. He would like to know if he is to keep taking these meds or not. * Telephone Encounter - SADAF Sanderson - 09/18/2022 3:17 PM EDT Pt requesting refills on RX Furosemide 40 mg 60 tabs 11 refills. [facility] will not allow me to pend. Ptalso requesting a call back from Cardiology to see if they still want hi on RX Eliquis. Please callpt back at [phone]. Thank You, Michel [facility] Plant Buyer II [facility] (Formerly [facility]) 09/18/2022, 3:19 PM documented in this encounter Plan of Treatment Upcoming Encounters Date Type Specialty Care Team Description 09/21/2022 Office Visit Pharmacy [facility] [address] [place] [address] 10/04/2022 Hospital Encounter Surgery Allan Persaud, DO [address] [place] [address] 10/04/2022 Surgery Surgery Allan Persaud, DO [address] [place], [place] [address] INJECTION SACROILIAC JOINT 10/09/2022 Nurse Only Ancillary Regina, Nurse [facility] [address] [place] [address] 11/08/2022 Office Visit Cardiology Lukasz Haines, DO [address] [place] [address] 11/16/2022 Office Visit Orthopedics Jeison Arteaga, DO [address] [place] [address] 12/15/2022 Office Visit Nephrology Lili Rodríguez MD [address] [place] [address] 03/22/2023 Office Visit Family Medicine Eldon Dowd MD [address] [place] [address] 05/16/2023 Office Visit Hematology Oncology Patricia Conway MD [address] [facility] [place] [address] Scheduled Procedures Name Priority Associated Diagnoses Date/Ti [...] Over 08/30/2022 08/30/2021 CKD PHOS USE SMARTSET 48564 12/12/202212/01, 12/02/2019, 02/18/2019, Additional history exists HbA1c 12/16/2022 06/15/2022, 12/01, 07/18/2021, Additional history exists Albumin/Creatinine Ratio 03/22/2023 022, 03/30/2021, 12/02/2019, Additional history exists CKD HGB USE SMARTSET 70897 09/15/202309/14, 05/16/2022, 05/16/2022, Additional history exists DTaP,Tdap,and [...] filedocumented as of this encounter Care Teams Crap Game Box Person Relationship Specialty Start Date End Date Eldon Dowd MD [address] [place] [address] PCP - General Family Medicine 12/05/18 documented as of this encounter
--- OUTSIDE RECORDS SUMMARY | 2023-02-27 00:18 | External Medical Summary | Summary of Care ---
Author Name Unknown Organization [facility] Address [address] [place] [facility] [place] [address] Phone [phone] Care Team Providers Care Blocker Hand Name Role Phone Kinjal Hernández MD Primary Care Provider [phone]- [phone] Reason for Visit * Reason Onset Date Comments Medication Refill 09/28/2022 Encounter Details Date Type Department Care Team Description 09/28/2022 Refill [facility] [address] [place] [address] Karolina Valiente MD [address] [place] [address] Left leg cellulitis Allergies Active Allergy Reactions Severity Noted Date Comments Candesartan Cilexetil 01/04/2012 hyperkalemia Atenolol 08/21/2012 Pt was told not to take this again Other reaction(s): PT WAS TOLD NEVER TO TAKE AGAIN Candesartan High 06/13/2022 Other reaction(s): HYPERKALEMIA Lisinopril Other (Please comment) High 01/16/2014 Hypotension/ Increased creatinine Other reaction(s): INCREASED CREATININE/HYPOTENSION documented as of this encounter (statuses as of 09/30/2022) Medications Medication Sig Dispensed Refills Start Date [...] 24 Hour (IMDUR)Indications :Coronary artery disease involving robinson coronary artery of robinson heart without angina pectoris,NSTEMI (non-ST elevated myocardial [...] before bedtime. 30 Capsule 0 09/30/2022 Active Cephalexin 500 MG Oral Capsule (Keflex)Indication s:Left leg cellulitis Take 1 Capsule by mouth in the morning and 1 Capsule at noon and 1 Capsule before bedtime. 30 Capsule 0 09/15/2022 3 Discontinue d(Refill) documented as of this encounter (statuses as of 09/30/2022) Active Problems Problem Noted Date Chronic venous [...] as of this encounter (statuses as of 09/30/2022) Resolved Problems Problem Noted Date Resolved Date Hypertensive kidney disease with chronic kidney disease stage III 10/30/2018 02/12/2020 Overview: Per CKD protocol Chest discomfort 02/23/2015 09/01/2016 Viral URI with cough 03/25/2014 09/01/2016 Accelerate Clinical Trial*[id number] 08/27/2012 08/27/2012 Accelerate Clinical Trial*[id number] 08/27/2012 03/29/2015 Overview: ACCELERATE STUDY. Project # [id number], ACCOUNTING OFFICE MANAGER: Basil Everett MD. CRC: GENE Whitney. SUMMARY: To test the hypothesis that Evacetrapib 130 mg, in comparison to placebo, reduces the risk of major adverse coronary events in high-risk vascular disease patients. CONTACTS: During normal business hours, contact study staff at ; after hours Art Tracer via the [facility] hospital press operator automatic [phone]. 24-hour Global Study Helpline: [phone]. Lipid levels should not be ordered/obtained while this subject is in the Accelerate study. Lipids are being managed in a blinded fashion. If lipid levels are inadvertently obtained, it is important that test results are NOT provided to the patient, study doctor, dental coordinator, or other study team members. Restricted meds while in the study: 1) niacin > 250 mg, 2) gemfibrozil with a potent [id number]. Hyperglycemia 02/18/2012 01/10/2017 NSTEMI (non-ST elevated myocardial [...] as of this encounter (statuses as of 09/30/2022) Immunizations Name Administration Dates Next Due COVID-19 [...] Telephone Encounter - Kinjal Hernández MD - 09/30/2022 2:27 PM EDTSigned Prescriptions: Disp Refills Cephalexin 500 MG Oral Capsule (Keflex) 30 Cap*0 Sig: Take 1 Capsule by mouth in the morning and 1 Capsule at noon and 1 Capsule before bedtime.Authorizing Provider: KINJAL HERNÁNDEZ * Telephone Encounter - Debbie [place] LPN - 09/29/2022 3:15 PM EDTPending Prescriptions: Disp Refills Cephalexin 500 MG Oral Capsule (Keflex) 30 Cap*0 Sig: Take 1 Capsule by mouth in the morning and 1 Capsule at noon and 1 Capsule before bedtime. * Telephone Encounter - Annabelle Haque CPhT - 09/29/2022 2:13 PM EDT Patient calling to check the status of med request, he stated his legs keep swelling and does not know why. He said that the Keflex has helped in the past. Thank you, Annabelle Haque CPhT Clinical Psychiatrist [facility] 09/29/2022,2:14 PM * Telephone Encounter - Kinjal Hernández MD - 09/29/2022 10:25 AM EDTPending Prescriptions: Disp Refills Cephalexin 500 MG Oral Capsule (Keflex) 30 Cap*0 Sig: Take 1 Capsule by mouth in the morning and 1 Capsule at noon and 1 Capsule before bedtime. * Telephone Encounter - Kinjal Hernández MD - 09/29/2022 10:24 AM EDT Would suggest reviewing with Dr Valiente who saw him for this issue. If she is not available, pleaseget details from pt on reason for refill request. If getting worse or having new symptoms, would need repeat OV. If improving but feels course needs extended, please get details on symptoms/progress and send back * Telephone Encounter - Elena Kumari [facility] - 09/29/2022 9:38 AM EDTPending Prescriptions: Disp Refills Cephalexin 500 MG Oral Capsule (Keflex) 30 Cap*0 Sig: Take 1 Capsule by mouth in the morning and 1 Capsule at noon and 1 Capsule before bedtime. * Telephone Encounter - Elena Kumari RPh - 09/29/2022 9:37 AM EDT [facility] is currently not authorized to approve refills for the pended medication(s) per refill protocol. Please approve if appropriate. Thanks, Elena Kumari PharmD Clinical Pharmacist [facility] ([facility]) (formerly [facility]). [phone] 09/29/2022, 9:37 AM * Telephone Encounter - Annabelle Haque CPhT - 09/28/2022 1:38 PM EDT Did you pend patient's preferred pharmacy and medication before forwarding?yes Pharmacy: [id number] [facility] Pending Prescriptions: Disp Refills Cephalexin 500 MG [...] appointment Last date the medication was ordered: 09/15/2022 Is this request for a controlled substance?No [...] Persaud, DO [address] [place] [address] 10/04/2022 Surgery Surgery Allan Persaud DO [address] [place] [address] INJECTION SACROILIAC JOINT 10/09/2022 [facility] [address] [place] [address] 11/08/2022 Office Visit Cardiology Lukasz Haines, DO [address] [place] [address] 11/16/2022 Office Visit Orthopedics Jeison Arteaga, DO [address] [place] [address] 12/15/2022 Office Visit Nephrology Lili Rodríguez MD [address] [place] [address], [place] [address] 03/22/2023 Office Visit Family Medicine Kinjal Hernández MD [address] [place] [address] 05/16/2023 Office Visit Hematology Oncology Patricia Conway MD [address] [facility], [place] [address] Scheduled Procedures Name Priority Associated Diagnoses Date/Ti me INJECTION SACROILIAC JOINT Inflammation of sacroiliac joint (HCC) 10/04/2022 9:40 AM EDT Health Maintenance Due Date Last Done Comments COVID-19 Vaccine (5 - Moderna series) 09/12/2021 07/18/2021, 02/14/2021, 06/04/2020, Additional history exists DIABETES-EYE EXAM 04/25/2022 04/25/2021, , 12/30/2018 DIABETES-FOOT EXAM 08/30/2022 08/30/2021, 0 10/31/2019, 10/30/2018 Depression Screening, Annual for Pts 12 and Over 08/30/2022 08/30/2021 Influenza Vaccine (FLU shot) (#1) 2022 01/04/2022, 12/28/2020, 12/31/2019, Additional history exists CKD PHOS USE SMARTSET 57113 12/12/202212/01, 12/02/2019, 02/18/2019, Additional history exists Albumin/Creatinine Ratio 03/22/20232 022, 03/30/2021, 12/02/2019, Additional history exists HbA1c 03/23/2023 09/21/2022, 05/31, 12/12/2021, Additional history exists CKD HGB USE SMARTSET 02934 09/15/202309/14, 05/16/2022, 05/16/2022, Additional history exists DTaP,Tdap,and [...] Cellulitis and abscess of leg, except foot Inflammation of sacroiliac joint (HCC) Sacroiliitis, not elsewhere classified documented in this encounter Care Teams Blocker Hand Relationship Specialty Start Date End Date Kinjal Hernández MD [address] [place] [address] PCP - General Family Medicine 12/05/18 documented as of this encounter
--- OUTSIDE RECORDS SUMMARY | 2023-02-27 00:18 | External Medical Summary | Summary of Care ---
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] Procedures SACROILIAC JOINT INJECT W/GUIDANCE INJECTION SACROILIAC JOINT Referral ID Status Reason Start Date Expiration Date Visits Re quested Visits Authorized [id number] Encounter Details Date Type Department Care Team Description 10/04/2022 Hospital Encounter OR [facility], Operating Room [facility] [address] [place] [id number] JoycekerlineAllanianDO [address] [place] [address] Allergies Active Allergy Reactions Severity Noted Date Comments Candesartan Cilexetil 01/04/2012 hyperkalemia Atenolol 08/21/2012 Pt was told not to take this again Other reaction(s): PT WAS TOLD NEVER TO TAKE AGAIN Candesartan High 06/13/2022 Other reaction(s): HYPERKALEMIA Lisinopril Other (Please comment) High 01/16/2014 Hypotension/ Increased creatinine Other reaction(s): INCREASED CREATININE/HYPOTENSION documented as of this encounter (statuses as of 10/04/2022) Medications Medication Sig Dispensed Refills Start Date [...] 24 Hour (IMDUR)Indications :Coronary artery disease involving [place] coronary artery of [place] heart without angina pectoris,NSTEMI (non-ST elevated myocardial [...] Tablet Chewable Take by mouth. 0 Active Probiotic Daily Oral Capsule Take 1 Capsule by mouth in the morning. 0 3 Discontinue d(Patient preference/ discontinua tion) documented as of this encounter (statuses as of 10/04/2022) Active Problems Problem Noted Date Chronic venous [...] as of this encounter (statuses as of 10/04/2022) Resolved Problems Problem Noted Date Resolved Date Hypertensive kidney disease with chronic kidney disease stage III 10/30/2018 02/12/2020 Overview: Per CKD protocol Chest discomfort 02/23/2015 09/01/2016 Viral URI with cough 03/25/2014 09/01/2016 Accelerate Clinical Trial*[id number] 08/27/2012 08/27/2012 Accelerate Clinical Trial*[id number] 08/27/2012 03/29/2015 Overview: ACCELERATE STUDY. Project # [id number], REGIONAL PROGRAM MANAGER: Basil Everett MD. CRC: GENE Whitney. SUMMARY: To test the hypothesis that Evacetrapib 130 mg, in comparison to placebo, reduces the risk of major adverse coronary events in high-risk vascular disease patients. CONTACTS: During normal business hours, contact study staff at ; after hours Tax Accounting Manager via the [facility] hospital drophammer operator [phone]. 24-hour Global Study Helpline: [phone]. Lipid levels should not be ordered/obtained while this subject is in the Accelerate study. Lipids are being managed in a blinded fashion. If lipid levels are inadvertently obtained, it is important that test results are NOT provided to the patient, study doctor, staff development coordinator, or other study team members. Restricted meds while in the study: 1) niacin > 250 mg, 2) gemfibrozil with a potent [id number]. Hyperglycemia 02/18/2012 01/10/2017 NSTEMI (non-ST elevated myocardial [...] as of this encounter (statuses as of 10/04/2022) Immunizations Name Administration Dates Next Due COVID-19 [...] Sign Reading Time Taken Comments Blood Pressure 150/63 10/04/2022 9:51 AM EDT Pulse 66 10/04/2022 9:51 AM EDT Temperature 36.1 C (96.9 F) 10/04/2022 9:31 AM ED T Respiratory Rate 16 10/04/2022 9:51 AM EDT Oxygen Saturation 99% 10/04/2022 9:51 AM EDT Inhaled Oxygen Concentration - - Weight - - Height - - Body Mass Index - - documented in this encounter Discharge Instructions * Discharge Instr - AVS* Allan Persaud DO - 10/04/2022 9:45 AM EDT [facility] [address] [place] [address] Discharge Date: 10/04/2022 You may call [facility] at [phone] during business hours. For after-hours emergencies call 911. Your attending physician at the time of your discharge was: [facility]aud DO [address] [facility] [address] The information below provides you with the instructions and the list of medications you need to betaking following discharge from the hospital. If you have any questions, please ask before leaving.Please carry this letter with you when you see your doctor in the clinic. Diet: Resume your normal diet If you are diabetic, follow your blood sugars closely for next 2-3 days as they are likely to be elevated. If you are having difficulty controlling your blood sugars call your family doctor or the physician that treats your diabetes. Activity: Do not engage in strenuous activity today Resume your normal activities tomorrow Do not soak in water for 24 hours. No swimming, hot tub or bath but showering is allowed. Do not use heat on the injection site for 24 hours. If uncomfortable ice may be helpful. Some injections may make your arms or legs weak for a few hours. Be extremely careful when walking or changing positions that you do not fall. Have someone assist you for the next 6 hours. If weakness or numbness becomes progressive CALL IMMEDIATELY or GO TO THE NEAREST EMERGENCY ROOM Keep a diary of your pain until seen in the office to help us determine how effective the injectionwas Do not restart physical therapy or chiropractic manipulation until 48 hours after your injection Call : If weakness or numbness suddenly becomes worse or become progressive If the injection site becomes red, swollen, warm to the touch, begins to bleed or drain fluid, or is excessively painful. If you have any questions Medications: Resume all the medications you were taking prior to your injection. Resume your anticoagulants tomorrow unless otherwise instructed by your family physician, color television console monitor or the anticoagulation clinic. Additional Instructions: {[id number]} Driving: . Date you may return to work or school: Follow Up: Call [phone] in 4 weeks. documented in this encounter Progress Notes * Allan Persaud DO - 10/04/2022 9:45 AM EDT [facility] [address] [place] [address] OUTPATIENT SURGERY DISCHARGE SUMMARY NOTE Name: Teodoro Arceo Location: OR [facility]/OR Date: 10/04/2022 Time: 9:45 AM Surgery Date: 10/04/2022 Procedure: Procedure(s): INJECTION SACROILIAC JOINT No laterality found for procedure #1 Surgeon: Surgeon(s): Allan Persaud DO Discharge Diagnosis: Right sacroiliitis After examination of this patient, I have determined he is ready for discharge to home when the patient meets criteria. Discharge instructions were given to the patient. documented in this encounter H&P Notes * Allan Persaud DO - 10/04/2022 6:45 AM EDT Interventional Pain Pre-Procedure Assessment Name:Teodoro Arceo Date:10/04/2022 Time:6:45 AM Procedure(s): Right sacroiliac joint injection Diagnosis: Right sacroiliitis Pre-Procedure Assessment: Prior to the procedure, the patient was identified. The patient's history, medications and allergies were reviewed . The patient is competent. The risks and benefits of the proposed procedure and theplanned sedation were discussed with the patient. All questions were answered and informed consent for the procedure was obtained. Prior to Admission medications Medication Sig Last Dose Discont. Cephalexin 500 MG Oral Capsule (Keflex) Take 1 Capsule by mouth in the morning and 1 Capsule at noon and 1 Capsule before bedtime. Furosemide 40 MG Oral Tablet (Lasix) Take one tablet in the morning Carvedilol 12.5 MG Oral Tablet (Coreg) Take 1 Tablet by mouth in the morning and 1 Tablet before bedtime. Empagliflozin 10 MG Oral Tablet (Jardiance) TAKE ONE TABLET BY MOUTH IN THE MORNING Probiotic Daily Oral Capsule Take 1 Capsule by mouth in the morning. Terazosin HCl 2 MG Oral Capsule TAKE ONE CAPSULE BY MOUTH AT BEDTIME linaGLIPtin 5 MG Oral Tablet (Tradjenta) Take 1 Tablet by mouth in the morning. Sotalol HCl 80 MG Oral Tablet (Betapace) TAKE 1/2 TABLET BY MOUTH TWICE DAILY Atorvastatin Calcium 80 MG Oral Tablet (Lipitor) TAKE ONE TABLET BY MOUTH DAILY predniSONE 5 MG Oral Tablet (Deltasone) TAKE 1 TO 3 TABLETS BY MOUTH DAILY Patient taking differently: Take 2 Tablets by mouth in the morning. Isosorbide Mononitrate ER 60 MG Oral Tablet Extended Release 24 Hour (IMDUR) TAKE ONE TABLET BY MOUTH EVERY MORNING. albuterol HFA (PROVENTIL HFA) 108 (90 BASE) MCG/ACT inhaler Use 2 puffs every 4- 6hrs as needed for wheezing/shortness of breath Patient not taking: Reported on 09/21/2022 Glucose Blood (ONETOUCH VERIO) STRP Use up to 1 times a day E11.9 COENZYME Q10 400 MG PO CAPS 1 CAPSULE DAILY ASPIRIN 81 MG PO CHEW One pill by mouth once a day with food CENTRUM PO TABS as directed Review of patient's allergies indicates: Allergen Reactions Candesartan Other reaction(s): HYPERKALEMIA Lisinopril Other (Please comment) Hypotension/ Increased creatinine Other reaction(s): INCREASED CREATININE/HYPOTENSION Atacand [Candesartan Cilexetil] hyperkalemia Atenolol Pt was told not to take this again Other reaction(s): PT WAS TOLD NEVER TO TAKE AGAIN There were no vitals taken for this visit. Physical Exam: Mental Status Examination: alert and oriented. Airway Examination: normal oropharyngeal airway and neck mobility. Respiratory Examination: clear to auscultation. CV Examination: normal. ASA Grade: III - A patient with severe systemic disease. After reviewing the risks and benefits, the patient was deemed in satisfactory condition to undergothe procedure. The anesthesia plan was to use local anesthesia. Allan Persaud DO 10/04/2022 documented in this encounter Nursing Notes * Brinda Patten RN - 10/04/2022 9:53 AM EDT Visited by Dr Persaud. Verbalized understanding of discharge directions. Ready for discharge to home. * Susana Hunter RN - 10/04/2022 9:42 AM EDT Patient tolerating pain management injection well. * Brinda Patten RN - 10/04/2022 9:40 AM EDT Pt states he is on Keflex for cellulitis of his legs and his son, Salvatore, confirms his legs are much improved. Pt reports he has [address] Persaud aware. documented in this encounter OR Notes * OR Surgeon - Allan Persaud DO - 10/04/2022 9:45 AM EDT OPERATIVE RECORD OR [facility], Operating Room [facility] [address] [facility] [place] [address] Teodoro Arceo : 1935 DOS: 10/04/2022 SERVICE: INTERVENTIONAL PAIN MANAGEMENT PRE-OP DIAGNOSIS: Right sacroiliitis. POST-OP DIAGNOSIS: Same. SURGEON: Allan Persaud DO. ASSISTANTS: None. ANESTHESIA: 2 mL of 1% lidocaine. OPERATION: Right sacroiliac joint injection. FINDINGS: No intraoperative findings. ESTIMATED BLOOD LOSS: None. DRAINS: There were no drains placed. FLUIDS: No IV fluids. URINE OUTPUT: None. SPECIMEN: No specimens collected. COMPLICATIONS: None. CONDITION: Good. INDICATIONS AND HISTORY: Teodoro Arceo presents in anticipation of undergoing injection of theright sacroiliac joint for persistent buttock pain refractory to conservative management. The procedure was reviewed, as well as the risks of bleeding, infection, neural injury, worsening pain, or steroid side effects. DESCRIPTION OF OPERATION: After obtaining appropriate informed consent, Teodoro Arceo was taken to the fluoroscopy suite, placed in a prone position. Time- out was taken to identify the patient, procedure, and the injection site, and the right sacroiliac joint was identified. The overlying skinsterilely prepped with ChloraPrep and draped. 1% lidocaine, 2 mL, was infiltrated in the skin and subcutaneous tissue, and a #25 gauge, 3-1/2 inch spinal needle was directed with fluoroscopic guidance into the inferior aspect of the joint without pain or paresthesia. After negative aspiration 0.5 mL of Omnipaque 180 was easily injected and showed appropriate intra-articular placement. There was no evidence of intravascular spread of contrast. Kenalog 40 mg with 1 mL of 0.25% preservative-free bupivacaine was then easily injected without pain. Needle was removed. Patient tolerated procedure well. Teodoro Arceo will be re- evaluated in approximately 4 weeks by phone and was given appropriate discharge instructions following postprocedural monitoring. Allan Persaud DO 10/04/2022 9:45 AM documented in this encounter Plan of Treatment Upcoming Encounters Date Type Specialty Care Team Description 10/09/2022 Nurse Only Ancillary Nurse [facility] [address] [place] [address] 11/01/2022 Office Visit Orthopedics Bette Ramirez MD [address] [place] [address] 11/08/2022 Office Visit Cardiology Lukasz Haines DO [address] [place] [address] 11/16/2022 Office Visit Orthopedics Jeison Arteaga, DO [address] [place] [address] 12/15/2022 Office Visit Nephrology Lili Rodríguez MD [address] [facility] [place] [address] 03/22/2023 Office Visit Family Medicine Eldon Dowd MD [address] [place] [address] 05/16/2023 Office Visit Hematology Oncology Patricia Conway MD [address] [facility] [place] [address] Scheduled Procedures Name Priority Associated Diagnoses Date/Ti [...] Additional history exists CKD PHOS USE SMARTSET 19312 12/12/202212/01, 12/02/2019, 02/18/2019, Additional history exists Albumin/Creatinine Ratio 03/22/2023 022, 03/30/2021, 12/02/2019, Additional history exists HbA1c 03/23/2023 09/21/2022, 05/31, 12/12/2021, Additional history exists CKD HGB USE SMARTSET 99154 09/15/202309/14, 05/16/2022, 05/16/2022, Additional history exists DTaP,Tdap,and [...] Procedure Name Priority Date/Time Associated Diagnosis Comments FLUORO INTERVENTIONAL PAIN PROCEDURE NONBILLABLE Routine 10/04/2022 9:45 AM EDT documented in this encounter Results * FLUORO INTERVENTIONAL PAIN PROCEDURE NONBILLABLE (10/04/2022 9:45 AM EDT) Narrative Scheduling, Silent - 10/04/2022 9:47 AM EDT This procedure will not be read by a Radiologist. Please see operative note. Allan Piress DO RAD FLUOROSCOPY documented in this encounter Administered Medications Inactive Administered Medications - up to 3 most recent administrations Medication Order MAR Action Action Date Dose Rate Site bupivacaine (Sensorcaine) 0.25 % inj 2.5 mg 2.5 mg (1 mL), Injection, ONCE, On Sun10/04/22 at 1000, For 1 dose Given 10/04/2022 9:43 AM EDT 2.5 mg Iohexol (Omnipaque 180) inj 1 mL 1 mL, Intravenous, ONCE, On Sun10/04/22 at 1000, For 1 dose Given 10/04/2022 9:42 AM EDT 1 mL lidocaine 1 % inj 20 mg 20 mg (2 mL), Subcutaneous, ONCE, On Sun10/04/22 at 1000, For 1 dose Given 10/04/2022 9:41 AM EDT 20 mg Other-Specify Triamcinolone Acetonide (Kenalog) 40 MG/ML inj 40 mg 40 mg, Intra-Articular, ONCE, On Sun10/04/22 at 1000, For 1 dose Given 10/04/2022 9:43 AM EDT 40 mg documented in this encounter Active and Recently Administered Medications Times are shown in EDT. Scheduled Medication Order 10/02/2022 10/03/2022 10/04/2022 bupivacaine (Sensorcaine) 0.25 % inj 2.5 mg (COMPLETED) 2.5 mg (1 mL), Injection, ONCE, On Sun10/04/22 at 1000, For 1 dose 0943 (Given - Provid er: Susana Hunter RN) Iohexol (Omnipaque 180) inj 1 mL (COMPLETED) 1 mL, Intravenous, ONCE, On Sun10/04/22 at 1000, For 1 dose 0942 (Given - Provid er: Susana Hunter RN) lidocaine 1 % inj 20 mg (COMPLETED) 20 mg (2 mL), Subcutaneous, ONCE, On Sun10/04/22 at 1000, For 1 dose 0941 (Given - Provid er: Susana Hunter RN) Triamcinolone Acetonide (Kenalog) 40 MG/ML inj 40 mg (COMPLETED) 40 mg, Intra-Articular, ONCE, On Sun10/04/22 at 1000, For 1 dose 0943 (Given - Provid er: Susana Hunter RN) documented in this encounter Care Teams Communications Superintendent Relationship Specialty Start Date End Date Eldon Dowd MD [address] [place] [address] PCP - General Family Medicine 12/05/18 documented as of this encounter
--- OUTSIDE RECORDS SUMMARY | 2023-02-27 00:18 | External Medical Summary | Summary of Care ---
Author Name Unknown Organization [facility] Address [address] [facility] [place] [address] Phone [phone] Care Team Providers Care Foaming Machine Operator Name Role Phone Eldon Dowd MD Primary Care Provider +1- [phone] Reason for Visit * Reason Comments Medication Refill Encounter Details Date Type Department Care Team Description 09/15/2022 Refill Cardiology, [facility] [address] [place] [id number] Ramandeep Santana PA-C [address] [place] [address] Allergies Active Allergy Reactions Severity Noted Date Comments Candesartan Cilexetil 01/04/2012 hyperkalemia Atenolol 08/21/2012 Pt was told not to take this again Other reaction(s): PT WAS TOLD NEVER TO TAKE AGAIN Candesartan High 06/13/2022 Other reaction(s): HYPERKALEMIA Lisinopril Other (Please comment) High 01/16/2014 Hypotension/ Increased creatinine Other reaction(s): INCREASED CREATININE/HYPOTENSION documented as of this encounter (statuses as of 09/16/2022) Medications Medication Sig Dispensed Refills Start Date [...] 24 Hour (IMDUR)Indications :Coronary artery disease involving [place] coronary artery of [place] heart without angina pectoris,NSTEMI (non-ST elevated myocardial [...] as of this encounter (statuses as of 09/16/2022) Active Problems Problem Noted Date Chronic venous insufficiency of lower ex tremity 09/15/2022 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 Project # [id number], SEWAGE PLANT ATTENDANT: Basil Everett MD. CRC: GENE Whitney. SUMMARY: To test the hypothesis that Evacetrapib 130 mg, in comparison to placebo, reduces the risk of major adverse coronary events in high-risk vascular disease patients. CONTACTS: During normal business hours, contact study staff at ; after hours Supplier Quality Engineer via the [facility] hospital entry level machine operator [phone]. 24-hour Global Study Helpline: [phone]. Lipid levels should not be ordered/obtained while this subject is in the Accelerate study. Lipids are being managed in a blinded fashion. If lipid levels are inadvertently obtained, it is important that test results are NOT provided to the patient, study doctor, junior project coordinator, or other study team members. Restricted meds while in the study: 1) niacin > 250 mg, 2) gemfibrozil with a potent [id number]. Hyperglycemia 02/18/2012 01/10/2017 NSTEMI (non-ST elevated myocardial [...] as of this encounter (statuses as of 09/16/2022) Immunizations Name Administration Dates Next Due COVID-19 [...] encounter Miscellaneous Notes * Telephone Encounter - Arsalan Brewer RPh - 09/16/2022 9:04 AM EDTNo prescriptions requested or ordered in this encounter documented in this encounter Plan of Treatment Upcoming Encounters Date Type Specialty Care Team Description 09/21/2022 [facility] [address] [facility] [address] 10/04/2022 Hospital Encounter Surgery Allan Persaud, DO [address] [place], [place] [address] 10/04/2022 Surgery Surgery Allan Persaud, DO [address] [place], [place] [address] INJECTION SACROILIAC JOINT 10/09/2022 Nurse Only Ancillary Regina, [facility] [address] [place] [address] 11/08/2022 Office Visit Cardiology Lukasz Haines, DO [address] [place] [address] 11/16/2022 Office Visit Orthopedics Jeison Arteaga, DO [address] [place] [address] 12/15/2022 Office Visit Nephrology Lili Rodríguez MD [address] [place] [address] 03/22/2023 Office Visit Family Medicine Eldon Dowd MD [address] [place] [address] 05/16/2023 Office Visit Hematology Oncology Patricia Conway MD [address] [place] [address] Scheduled Procedures Name Priority Associated Diagnoses Date/Ti [...] Over 08/30/2022 08/30/2021 CKD PHOS USE SMARTSET 18584 12/12/202212/01, 12/02/2019, 02/18/2019, Additional history exists HbA1c 12/16/2022 06/15/2022, 12/01, 07/18/2021, Additional history exists Albumin/Creatinine Ratio 03/22/2023 022, 03/30/2021, 12/02/2019, Additional history exists CKD HGB USE SMARTSET 85413 09/15/202309/14, 05/16/2022, 05/16/2022, Additional history exists DTaP,Tdap,and [...] filedocumented as of this encounter Care Teams Foaming Machine Operator Relationship Specialty Start Date End Date Eldon Dowd MD [address] [place], [place] [id number] PCP - General Family Medicine 12/05/18 documented as of this encounter
--- OUTSIDE RECORDS SUMMARY | 2023-02-27 00:18 | External Medical Summary | Summary of Care ---
Author Name Unknown Organization [facility] Address [address] [facility] [place] [address] Phone [phone] Care Team Providers Care Dental Cream Maker Name Role Phone Eldon Dowd MD Primary Care Provider +1- [phone] Reason for Visit * Reason Comments Medication Refill Encounter Details Date Type Department Care Team Description 09/18/2022 Refill Cardiology, [facility] [address] [place] [id number] Leah Lee PA-C [address] [place] [address] Allergies Active Allergy Reactions Severity Noted Date [...] 24 Hour (IMDUR)Indications :Coronary artery disease involving kenaitze coronary artery of kenaitze heart without angina pectoris,NSTEMI (non-ST elevated myocardial [...] URI with cough 03/25/2014 09/01/2016 Accelerate Clinical Trial*[id number] 08/27/2012 08/27/2012 Accelerate Clinical Trial*[id number] 08/27/2012 03/29/2015 Overview: ACCELERATE STUDY. Project # [id number], LPN RN: Basil Everett MD. CRC: GENE Whitney. SUMMARY: To test the hypothesis that Evacetrapib 130 mg, in comparison to placebo, reduces the risk of major adverse coronary events in high-risk vascular disease patients. CONTACTS: During normal business hours, contact study staff at ; after hours [employer] via the [facility] hospital welding machine operator electro gas [phone]. 24-hour Global Study Helpline: [phone]. Lipid levels should not be ordered/obtained while this subject is in the Accelerate study. Lipids are being managed in a blinded fashion. If lipid levels are inadvertently obtained, it is important that test results are NOT provided to the patient, study doctor, unit coordinator, or other study team members. Restricted meds while in the study: 1) niacin > 250 mg, 2) gemfibrozil with a potent [id number]. Hyperglycemia 02/18/2012 01/10/2017 NSTEMI (non-ST elevated myocardial [...] encounter Miscellaneous Notes * Telephone Encounter - Leah Lee PA-C - 09/20/2022 3:00 PM EDT Signed Prescriptions: Disp Refills Furosemide 40 MG Oral Tablet (Lasix) 90 Tab*3 Sig: Take one tab in the am Authorizing Provider: LEAH LEE * Telephone Encounter - Maryellen Ovalles LPN - 09/19/2022 12:23 PM EDTPending Prescriptions: Disp Refills Furosemide 40 MG Oral Tablet (Lasix) 60 Tab*11 Sig: TAKE 1 TABLET IN THE MORNING AND TAKE 1 TABLET IN THE AFTERNOON * Telephone Encounter - Mellisa May LPN - 09/19/2022 12:21 PM EDTPending Prescriptions: Disp Refills Furosemide 40 MG Oral Tablet (Lasix) 60 Tab*11 Sig: TAKE 1 TABLET IN THE MORNING AND TAKE 1 TABLET IN THE AFTERNOON documented in this encounter Plan of Treatment Upcoming Encounters Date Type Specialty Care Team Description 09/21/2022 Office Visit Pharmacy [facility] [address] [place] [phone] 10/04/2022 Hospital Encounter Surgery Cori, Allan Kearns, DO [address] [place] [address] 10/04/2022 Surgery Surgery JoycesinAllan irving, DO [address] [place] [address] INJECTION SACROILIAC JOINT 10/09/2022 Nurse Only Nurse [facility] [address] [place] [address] 11/08/2022 Office Visit Cardiology Lukasz Haines, DO [address] [place] [address] 11/16/2022 Office Visit Orthopedics Jeison Arteaga, DO [address] [place] [address] 12/15/2022 Office Visit Nephrology Lili Rodríguez MD [address] [place] [address] 03/22/2023 Office Visit Family Medicine Eldon Dowd MD [address] [place] [address] 05/16/2023 Office Visit Hematology Oncology Patricia [place] MD [address] [place] [address] Scheduled Procedures Name Priority Associated Diagnoses Date/Ti [...] Over 08/30/2022 08/30/2021 CKD PHOS USE SMARTSET 33583 12/12/202212/01, 12/02/2019, 02/18/2019, Additional history exists HbA1c 12/16/2022 06/15/2022, 12/01, 07/18/2021, Additional history exists Albumin/Creatinine Ratio 03/22/2023 022, 03/30/2021, 12/02/2019, Additional history exists CKD HGB USE SMARTSET 39846 09/15/202309/14, 05/16/2022, 05/16/2022, Additional history exists DTaP,Tdap,and [...] filedocumented as of this encounter Care Teams Dental Cream Maker Relationship Specialty Start Date End Date Eldon Dowd MD [address], [place] [phone] PCP - General Family Medicine 12/05/18 documented as of this encounter
--- OUTSIDE RECORDS SUMMARY | 2023-02-27 00:18 | External Medical Summary | Summary of Care ---
Author Name Unknown Organization [facility] Address [address] [facility] [place] [address] Phone [phone] Care Team Providers Care Television Engineering Teacher Name Role Phone Eldon Dowd MD Primary Care Provider +1- [phone] Reason for Referral * Evaluate & Treat - Unlimited Visits (Within 30 days (routine)) - Pending Review Specialty Diagnoses / Procedures Referred By Urmila paniagua Referred To Contact Sports Medicine / Orthopedics Diagnoses Rotator cuff arthropathy of left shoulder Nadine Jovel PA-C [address] [place] [address] Referral ID Status Reason Start Date Expiration Date Visits Requested Visits Authorized [id number] Pending Review Specialty Services Required 10/04/2022 999 999 Question Answer What body part is the patient being seen for? Shoulder What condition is the patient being seen for? Arthritis including related infection Referral Priority Within 30 days (routine) Reason for Visit * Reason Comments NEW PATIENT Left shoulder Encounter Details Date Type Department Care Team Description 10/04/2022 Office Visit Orthopaedics [facility] [address] [place] [address] Nadine Jovel PA-C [address] [place] [address] Synovial cyst of shoulder*; Rotator cuff arthropathy [...] URI with cough 03/25/2014 09/01/2016 Accelerate Clinical Trial*[id number] 08/27/2012 08/27/2012 Accelerate Clinical Trial*[id number] 08/27/2012 03/29/2015 Overview: ACCELERATE STUDY. Project # [id number], PRESCHOOL DISABILITY TEACHER: Basil Everett MD. CRC: GENE Whitney. SUMMARY: To test the hypothesis that Evacetrapib 130 mg, in comparison to placebo, reduces the risk of major adverse coronary events in high-risk vascular disease patients. CONTACTS: During normal business hours, contact study staff at ; after hours [employer]c++ Developer via the [facility] hospital batch freezer operator [phone]. 24-hour Global Study Helpline: [phone]. Lipid levels should not be ordered/obtained while this subject is in the Accelerate study. Lipids are being managed in a blinded fashion. If lipid levels are inadvertently obtained, it is important that test results are NOT provided to the patient, study doctor, physician practice coordinator, or other study team members. Restricted meds while in the study: 1) niacin > 250 mg, 2) gemfibrozil with a potent [id number]. Hyperglycemia 02/18/2012 01/10/2017 NSTEMI (non-ST elevated myocardial [...] as of this encounter Progress Notes * Nadine Jovel PA-C - 10/04/2022 1:13 PM EDT Teodoro Arceo is a 87 year old male who presents for consultation to [facility] for left shoulder mass. Consult requested by Self. Subjective: Teodoro Arceo reports that left shoulder pain started about 3 weeks ago. He denies any injuries. Reports history of chronic bilateral shoulder pain. He denies any worsening of shoulder pain. States symptoms are tolerable and he has no difficulty with ADLs.. Patient states the shoulder mass is not painful except with direct palpation. Review of systems: All others negative except [...] taking: Reported on 09/21/2022) 1 Inhaler 3 Isosorbide Mononitrate ER 60 [...] Fiber Oral Tablet Chewable Take by mouth. No current facility-administered medications for this visit. 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 Rosacea Past Surgical History: Procedure Laterality Date COLONOSCOPY 05/08 repeat 2016 REVISION OF ULNAR NERVE AT ELBOW 2/06 [place]// left arm and right arm SACROILIAC [...] Resource Strain: Not on file Food Insecurity: Not on file Transportation Needs: Not on file Physical Activity: Not on file Stress: Not on file Social Connections: Not on file Intimate Partner Violence: Not on file Housing Stability: Not on file Family History Problem Relation Age of Onset Other (pneumonia) Father of pneumonia @ 81 Stroke Mother CVA/ HI @ 63 Heart Disorder Sister CABG Heart Disorder Sister rheumatic heart disease Heart Disorder Brother Neurological Disorder Sister CVA Family History; none relevant to acute HPI 10/04/2022 Objective: Physical Exam There were no vitals filed for this visit. Estimated body mass index is 24.27 kg/m as calculated from the following: Height as of 09/15/22: 1.727 m (5' 8"). Weight as of 09/15/22: 72.4 kg (159 lb 9.6 oz). General: generally well-nourished and in no acute [...] - 60 degrees Left - 60 degrees Strength and cuff tests: supraspinatous (empty can): Right - 4/5 Left - 4/5 infraspinatous/teres minor (resisted external rotation): Right - 4/5 Left - 4/5 subscapularis (resisted internal rotation): Right - 4/5 Left - 4/5 Radiology (I have personally reviewed the following films): X-rays of the patient's left shoulder reveal degenerative changes of the glenohumeral joint with superior migration humeral head. The AC joint reveals degenerative changes. No acute findings such as fracture, dislocation, or subluxation - per my interpretation. Awaiting formal radiology interpretation. Discussed with patient that I will call them if anything changes from above interpretation. Assessment and Plan: Synovial cyst of shoulder (Primary) - XR SHOULDER, 2 OR MORE VIEWS Rotator cuff arthropathy of left shoulder Discussed possible aspiration and injection. Patient declines at this time as symptoms are manageable. He is agreeable to scheduling appointment with Sports Medicine Physician to consider possible aspiration/injection if symptoms worsen. Follow Up: Return in about 4 weeks (around 11/01/2022) for Left shoulder f/u with sports medicine, possible aspiration synovial cyst and injection Nadine Jovel PA-C [facility] [address] [place] [address] documented in this encounter Nursing Notes * Shilpa Huddleston LPN - 10/04/2022 10:56 AM EDT Presents for ortho UC for left shoulder "bump" X 3 weeks. NKI. Shilpa Díaz LPN documented in this encounter Plan of Treatment Upcoming Encounters Date Type Specialty Care Team Description 10/09/2022 Nurse Only Ancillary [place], [facility] [address] [place] [address] 11/01/2022 Office Visit Orthopedics Bette Ramirez MD [address] [place] [address] 11/08/2022 Office Visit Cardiology Lukasz Haines, DO [address] [place] [address] 11/16/2022 Office Visit Orthopedics Jeison Arteaga DO [address] [place] [address] 12/15/2022 Office Visit Nephrology Lili Rodríguez MD [address] [place] [address], [place] [address] 03/22/2023 Office Visit Family Medicine Eldon Dowd MD [address] [place] [address] 05/16/2023 Office Visit Hematology Oncology Patricia [place] MD [address] [facility] [place] [address] Pending Results Name Type Priority Associated Diagnoses Date /Time XR SHOULDER, 2 OR MORE VIEWS Medical Imaging Routine Synovial cyst of shoulder 10/04/2022 11:16 AM EDT Scheduled Procedures Name Priority Associated Diagnoses Date/Ti me INJECTION SACROILIAC JOINT Inflammation of sacroiliac joint (HCC) 10/04/2022 9:40 AM EDT Scheduled Referrals Name Type Priority Associated Diagnoses Orde r Schedule SPORTS MEDICINE REFERRAL OP Referral Within 30 days (routine) Rotator cuff arthropathy of left shoulder Ordered: 10/04/2022 Health Maintenance Due Date Last Done Comments COVID-19 Vaccine (5 - Moderna series) 09/12/2021 07/18/2021, 02/14/2021, 06/04/2020, Additional history exists DIABETES-EYE EXAM 04/25/2022 04/25/2021, , 12/30/2018 DIABETES-FOOT EXAM 08/30/2022 08/30/2021, 0 10/31/2019, 10/30/2018 Depression Screening, Annual for Pts 12 and Over 08/30/2022 08/30/2021 Influenza Vaccine (FLU shot) (#1) 2022 01/04/2022, 12/28/2020, 12/31/2019, Additional history exists CKD PHOS USE SMARTSET 13582 12/12/202212/01, 12/02/2019, 02/18/2019, Additional history exists Albumin/Creatinine Ratio 03/22/2023 022, 03/30/2021, 12/02/2019, Additional history exists HbA1c 03/23/2023 09/21/2022, 05/31, 12/12/2021, Additional history exists CKD HGB USE SMARTSET 75359 09/15/202309/14, 05/16/2022, 05/16/2022, Additional history exists DTaP,Tdap,and [...] shoulder documented in this encounter Care Teams Television Engineering Teacher Relationship Specialty Start Date End Date Eldon Dowd MD [address], [place] [phone] PCP - General Family Medicine 12/05/18 documented as of this encounter
--- OUTSIDE RECORDS SUMMARY | 2023-02-27 00:18 | External Medical Summary | Summary of Care ---
Author Name Unknown Organization [facility] Address [address] [place] [address] Phone [phone] Care Team Providers Care Clinical Account Specialist Name Role Phone Eldon Dowd MD Primary Care Provider +1- [phone] Reason for Visit * Reason Comments Outpatient Testing Encounter Details Date Type Department Care Team Description 09/21/2022 Laboratory Laboratory, [place] [address] [place] [address] [place], Laboratory [address] [place] [address] Type 2 diabetes mellitus with hemoglobin A1c goal of less than 8.0% ([facility]) Allergies Active Allergy Reactions Severity [...] 24 Hour (IMDUR)Indications: Coronary artery disease involving tangirnaq coronary artery of tangirnaq heart without angina pectoris,NSTEMI (non-ST elevated myocardial [...] hemoglobin A1c goal of less than 8.0% ([facility]) Take 1 Tablet by mouth [...] URI with cough 03/25/2014 09/01/2016 Accelerate Clinical Trial*[id number] 08/27/2012 08/27/2012 Accelerate Clinical Trial*[id number] 08/27/2012 03/29/2015 Overview: ACCELERATE STUDY. Project # [id number], CARTOGRAPHIC TECHNICIAN: Basil Everett MD. CRC: GENE Whitney. SUMMARY: To test the hypothesis that Evacetrapib 130 mg, in comparison to placebo, reduces the risk of major adverse coronary events in high-risk vascular disease patients. CONTACTS: During normal business hours, contact study staff at ; after hours Auto Air Conditioning Installer via the [facility] hospital cmm operator [phone]. 24-hour Global Study Helpline: [phone]. Lipid levels should not be ordered/obtained while this subject is in the Accelerate study. Lipids are being managed in a blinded fashion. If lipid levels are inadvertently obtained, it is important that test results are NOT provided to the patient, study doctor, time study observer, or other study team members. Restricted meds while in the study: 1) niacin > 250 mg, 2) gemfibrozil with a potent [id number]. Hyperglycemia 02/18/2012 01/10/2017 NSTEMI (non-ST elevated myocardial [...] Care Team Description 10/04/2022 Hospital Encounter Surgery JoyceAllan churchill Som, DO [address] [place] [address] 10/04/2022 Surgery Surgery Allan Persaud, DO [address] [place] [address] INJECTION SACROILIAC JOINT 10/09/2022 Nurse Only [place] [facility] [address] [place] [facility] [place] [facility] [place] [address] 11/08/2022 Office Visit Cardiology Lukasz Haines, DO [address] [place] [address] 11/16/2022 Office Visit Orthopedics Jeison Arteaga, DO [address] [place] [address] 12/15/2022 Office Visit Nephrology Lili Rodríguez MD [address] [place] [address] 03/22/2023 Office Visit Family Medicine Eldon Dowd MD [address] [place] [facility] [place] [facility] [place] [address] 05/16/2023 Office Visit Hematology Oncology Patricia [place] MD [address] [place] [address] Pending Results Name Type Priority Associated Diagnoses Date /Time HEMOGLOBIN A1C Lab Routine Type 2 diabetes mellitus with hemoglobin A1c goal of less than 8.0% ([facility]) 09/21/2022 10:06 AM EDT Scheduled Procedures Name Priority Associated Diagnoses Date/Ti me INJECTION SACROILIAC JOINT Inflammation of sacroiliac joint ([facility]) 10/04/2022 9:40 AM EDT Health Maintenance Due Date Last Done Comments COVID-19 Vaccine (5 - Moderna series) 09/12/2021 07/18/2021, 02/14/2021, 06/04/2020, Additional history exists DIABETES-EYE EXAM 04/25/2022 04/25/2021, , 12/30/2018 DIABETES-FOOT EXAM 08/30/2022 08/30/2021, 0 10/31/2019, 10/30/2018 Depression Screening, Annual for Pts 12 and Over 08/30/2022 08/30/2021 CKD PHOS USE SMARTSET 70307 12/12/202212/01, 12/02/2019, 02/18/2019, Additional history exists HbA1c 12/16/2022 06/15/2022, 12/01, 07/18/2021, Additional history exists Albumin/Creatinine Ratio 03/22/2023 022, 03/30/2021, 12/02/2019, Additional history exists CKD HGB USE SMARTSET 88552 09/15/202309/14, 05/16/2022, 05/16/2022, Additional history exists DTaP,Tdap,and [...] A1c goal of less than 8.0% (HCC) Inflammation of sacroiliac joint (HCC) Sacroiliitis, not elsewhere classified documented in this encounter Care Teams Clinical Account Specialist Relationship Specialty Start Date End Date Eldon Dowd MD [address] [place] [address] PCP - General Family Medicine 12/05/18 documented as of this encounter
[2023-02-27] MEDS ORDERED: ALBUTEROL HFA 8 GM INHALER INH PRN (00:19)
--- OUTSIDE RECORDS SUMMARY | 2023-02-27 00:19 | External Medical Summary ---
Author Name Unknown Address Unknown Organization K01:[facility] - [facility] [address] [facility] [place] [address] Laboratory Report Ordering Provider Test Date Status EDGAR LAYTON 09/14/2022 09:40:16 Final Observation Date Value Abnormality Reference (Units ) Status WBC, Total 09/14/2022 09:40:16 10.86 Above high normal 4.00-10.80 (K/uL) Final RBC 09/14/2022 09:40:16 4.78 4.50-5.25 (M/uL) Final Hemoglobin 09/14/2022 09:40:16 13.1 Below low normal 14.0-16.8 (g/dL) Final HCT 09/14/2022 09:40:16 43.4 40.0-48.4 (%) Final MCV 09/14/2022 09:40:16 90.8 82.0-99.5 (fL) Final MCH 09/14/2022 09:40:16 27.4 27.0-34.0 (pg) Final MCHC 09/14/2022 09:40:16 30.2 32.0-36.0 (g/dL) Final RDW 09/14/2022 09:40:16 18.6 11.5-15.5 (%) Final Platelets 09/14/2022 09:40:16 228 140-400 (K/uL) Final MPV 09/14/2022 09:40:16 10.6 6.6-11.1 (fL) Final Nucleated erythrocytes/100 leukocytes [Ratio] in Blood by Automated count 09/14/2022 09:40:16 0 <=0 (/100 WBCs) Final Performing Location [facility] [address] [facility] [address] [facility] [address]
--- OUTSIDE RECORDS SUMMARY | 2023-02-27 00:19 | External Medical Summary | Summary of Care ---
Author Name Unknown Organization [facility] Address [address] [place] [address] Phone [phone] Care Team Providers Care Rail Signal Worker Name Role Phone Eldon Dowd MD Primary Care Provider +1- [phone] Reason for Visit * Reason Onset Date Comments Medication Question 09/11/2022 Encounter Details Date Type Department Care Team Description 09/11/2022 Telephone Pharmacy, [place] [address] [place] [address] [facility] [address] [place] [address] Medication Question Allergies Active Allergy Reactions Severity Noted Date Comments Candesartan Cilexetil 01/04/2012 hyperkalemia Atenolol 08/21/2012 Pt was told not to take this again Other reaction(s): PT WAS TOLD NEVER TO TAKE AGAIN Candesartan High 06/13/2022 Other reaction(s): HYPERKALEMIA Lisinopril Other (Please comment) High 01/16/2014 Hypotension/ Increased creatinine Other reaction(s): INCREASED CREATININE/HYPOTENSION documented as of this encounter (statuses as of 09/11/2022) Medications Medication Sig Dispensed Refills Start Date [...] 24 Hour (IMDUR)Indications :Coronary artery disease involving dry creek coronary artery of dry creek heart without angina pectoris,NSTEMI (non-ST elevated myocardial [...] A DAY 180 Tablet 3 03/29/2022 Active Additional Information Patient not taking.Reported on 08/01/2022 linaGLIPtin 5 MG Oral Tablet (Tradjenta)Indicat ions:Type [...] as directed 5 Kit 5 05/30/2022 Active Additional Information Patient not taking.Reported on 07/14/2022 Empagliflozin 10 MG Oral Tablet (Jardiance) TAKE [...] 30 days 60 Tablet 0 07/11/2022 Active Additional Information Patient not taking.Reported on 09/08/2022 Sucralfate 1 GM/10ML Oral Suspension (Carafate) Take [...] for constipation 60 Capsule 0 07/23/2022 Active Additional Information Patient not taking.Reported on 08/01/2022 Carvedilol 12.5 MG Oral Tablet (Coreg)Indications :CAD [...] for 10 days. 30 Capsule 0 09/08/2022 09/18/2022 Active documented as of this encounter (statuses as of 09/11/2022) Active Problems Problem Noted Date Type 2 diabetes mellitus with stage 3 [...] as of this encounter (statuses as of 09/11/2022) Resolved Problems Problem Noted Date Resolved Date Hypertensive kidney disease with chronic kidney disease stage III 10/30/2018 02/12/2020 Overview: Per CKD protocol Chest discomfort 02/23/2015 09/01/2016 Viral URI with cough 03/25/2014 09/01/2016 Accelerate Clinical Trial*[id number] 08/27/2012 08/27/2012 Accelerate Clinical Trial*[id number] 08/27/2012 03/29/2015 Overview: ACCELERATE STUDY. Project # [id number], CARD CUTTER: Basil Everett MD. CRC: GENE Whitney. SUMMARY: To test the hypothesis that Evacetrapib 130 mg, in comparison to placebo, reduces the risk of major adverse coronary events in high-risk vascular disease patients. CONTACTS: During normal business hours, contact study staff at ; after hours Material Requisitioner via the [facility] hospital multicut line operator [phone]. 24-hour Global Study Helpline: [phone]. Lipid levels should not be ordered/obtained while this subject is in the Accelerate study. Lipids are being managed in a blinded fashion. If lipid levels are inadvertently obtained, it is important that test results are NOT provided to the patient, study doctor, high school coordinator, or other study team members. Restricted meds while in the study: 1) niacin > 250 mg, 2) gemfibrozil with a potent [id number]. Hyperglycemia 02/18/2012 01/10/2017 NSTEMI (non-ST elevated myocardial [...] as of this encounter (statuses as of 09/11/2022) Immunizations Name Administration Dates Next Due COVID-19 [...] encounter Miscellaneous Notes * Telephone Encounter - Bonny Sang Hurley, [facility] - 09/11/2022 4:27 PM EDT Patient Phone Numbers Returned patient's call. States readings have been in the 80s. Instructed to HOLD Glipizide as patient reports he has still been taking. He is to bring in BG log to appointment next week on 09/21. Bonny Hurley RPh, PharmD Clinical Pharmacist - Composing Room Machinist Apprentice [facility] 09/11/2022, 4:28 PM Ph.[phone] * Telephone Encounter - SADAF Andrade - 09/11/2022 3:25 PM EDT Caller's name: jarett Preferred call back number(OFFICE NUMBER FOR ): [phone] Reason for call: pt states that he is glipizide of 2.5. his numbers are lower thatn 100 and was told to call if that was so. please call pt Thank you, Ira Newell Bar Waiter/Waitress [facility] 09/11/2022,3:25 PM documented in this encounter Plan of Treatment Upcoming Encounters Date Type Specialty Care Team Description 09/21/2022 Office Visit Pharmacy [facility] [address] [place] [facility] [place] [address] 10/04/2022 Hospital Encounter Surgery Allan Persaud, DO [address] [place] [address] 10/04/2022 Surgery Surgery Allan Persaud, DO [address] [place] [address] INJECTION SACROILIAC JOINT 10/09/2022 Nurse Only Nurse [facility] [address] [place] [address] 11/08/2022 Office Visit Cardiology Lukasz Haines, DO [address] [place] [address] 11/16/2022 Office Visit Orthopedics Jeison Arteaga, DO [address] [place] [address] 12/15/2022 Office Visit Nephrology Lili Rodríguez MD [address] [place] [address] 05/16/2023 Office Visit Hematology Oncology Patricia Conway MD [address] [place] [address] Scheduled Procedures Name Priority Associated Diagnoses Date/Ti [...] Over 08/30/2022 08/30/2021 CKD PHOS USE SMARTSET 03233 12/12/202212/01, 12/02/2019, 02/18/2019, Additional history exists HbA1c 12/16/2022 06/15/2022, 12/01, 07/18/2021, Additional history exists Albumin/Creatinine Ratio 03/22/2023 022, 03/30/2021, 12/02/2019, Additional history exists CKD HGB USE SMARTSET 76981 05/16/202305/16, 05/16/2022, 03/22/2022, Additional history exists DTaP,Tdap,and Td Vaccines (2 [...] filedocumented as of this encounter Care Teams Rail Signal Worker Relationship Specialty Start Date End Date Eldon Dowd MD [address] [place] [address] PCP - General Family Medicine 12/05/18 documented as of this encounter
--- OUTSIDE RECORDS SUMMARY | 2023-02-27 00:19 | External Medical Summary | Summary of Care ---
Author Name Unknown Organization [facility] Address [address] [facility] [place] [address] Phone [phone] Care Team Providers Care Concrete Polisher Name Role Phone Eldon Dowd MD Primary Care Provider +1- [phone] Reason for Visit * Reason Comments Edema Bilateral feet and r ed Encounter Details Date Type Department Care Team Description 09/08/2022 Convenient Care Visit [facility] [place] [address] [place] [address] Mae Taylor PA-C [address] [place] [address] Left leg cellulitis* Allergies Active Allergy Reactions Severity Noted Date Comments Candesartan Cilexetil 01/04/2012 hyperkalemia Atenolol 08/21/2012 Pt was told not to take this again Other reaction(s): PT WAS TOLD NEVER TO TAKE AGAIN Candesartan High 06/13/2022 Other reaction(s): HYPERKALEMIA Lisinopril Other (Please comment) High 01/16/2014 Hypotension/ Increased creatinine Other reaction(s): INCREASED CREATININE/HYPOTENSION documented as of this encounter (statuses as of 09/08/2022) Medications Medication Sig Dispensed Refills Start Date [...] 24 Hour (IMDUR)Indications :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 Project # [id number], COTTON CONVERTER: Basil Everett MD. CRC: GENE Whitney. SUMMARY: To test the hypothesis that Evacetrapib 130 mg, in comparison to placebo, reduces the risk of major adverse coronary events in high-risk vascular disease patients. CONTACTS: During normal business hours, contact study staff at ; after hours Contract Negotiation Manager via the [facility] hospital gas engine operator generators [phone]. 24-hour Global Study Helpline: [phone]. Lipid levels should not be ordered/obtained while this subject is in the Accelerate study. Lipids are being managed in a blinded fashion. If lipid levels are inadvertently obtained, it is important that test results are NOT provided to the patient, study doctor, senior clinical data coordinator, or other study team members. Restricted meds while in the study: 1) niacin > 250 mg, 2) gemfibrozil with a potent [id number]. Hyperglycemia 02/18/2012 01/10/2017 NSTEMI (non-ST elevated myocardial [...] as of this encounter (statuses as of 09/08/2022) Immunizations Name Administration Dates Next Due COVID-19 [...] Sign Reading Time Taken Comments Blood Pressure 100/62 09/08/2022 3:48 PM EDT Pulse 98 09/08/2022 3:48 PM EDT Temperature 37.4 C (99.3 F) 09/08/2022 3:48 PM ED T Respiratory Rate - - Oxygen Saturation 96% 09/08/2022 3:48 PM EDT Inhaled Oxygen Concentration - - Weight - - Height - - Body Mass Index - - documented in this encounter Progress Notes * Mae Taylor PA-C - 09/08/2022 3:59 PM EDT Teodoro Arceo is a 87 year old year old male who presents for : Chief Complaint Patient presents with Edema Bilateral feet and red HPI: Pt here c/o left lower leg with redness and swelling. He has chronic leg edema. Noted more swelling2 days ago. In the last day noticed the redness. Hx of this in the past. Temp in clinic 99.3F. pt denies fever, chills, abd pain, NV. REVIEW OF SYSTEMS: See HPI for pertinent positives and negatives. Patient denies addtional complaints. PAST MEDICAL HISTORY: Past Medical History: Diagnosis Date CAD (coronary [...] performed by Allan Persaud, DO at [facility] SACROILIAC JOINT INJECT W/GUIDANCE 06/28/2022 INJECTION SACROILIAC JOINT performed by Allan Persaud, DO at [facility] SIGMOIDOSCOPY, DIAGNOSTIC 09/02/98 diverticulosis Social History Tobacco Use Smoking status: Never Smokeless tobacco: Never Substance Use Topics Alcohol use: No Vaping/E-Cigarette Use Vaping/E-Cigarette Use Never User Vaping/E-Cigarette Substances Vaping/E-Cigarette Devices Patient Active Problem List Diagnosis Code Monoclonal [...] 3 chronic kidney disease (HCC) E11.22, N18.30 Family History Problem Relation Age of Onset Other (pneumonia) Father of pneumonia @ 81 Stroke Mother CVA/ AK @ 63 Heart Disorder Sister CABG Heart Disorder Sister rheumatic heart disease Heart Disorder Brother Neurological Disorder Sister CVA Review of patient's allergies indicates: Allergen Reactions [...] mouth in the morning. 90 Tablet 3 linaGLIPtin 5 MG Oral [...] daily in the morning 473 mL 0 Sucralfate 1 GM/10ML Oral Suspension (Carafate) Take 10ml (2 teaspoons) by mouth twice a day for 30 days 600 mL 0 Bisacodyl 5 MG Oral Tablet Delayed Release (Dulcolax) take 1 tablet (5 mg) orally twice a day As Needed for constipation 25 Tablet 0 Carvedilol 12.5 MG Oral Tablet (Coreg) Take 1 Tablet by mouth in the morning and 1 Tablet before bedtime. 180 Tablet 3 Eliquis 5 MG Oral Tablet (Apixaban) TAKE 1 TABLET TWICE A DAY (Patient not taking: Reported on 08/01/2022) 180 Tablet 3 Probiotic Daily Oral Capsule Take 1 Capsule by mouth in the morning. (Patient not taking: Reported on 09/08/2022) Loperamide HCl 2 MG Oral Capsule (Imodium) Take 1 Capsule by mouth 4 times a day as needed for Diarrhea. (Patient not taking: Reported on 09/08/2022) Clinitest Rapid COVID-19 Test In Vitro Kit (COVID-19 At Home Antigen Test) use as directed (Patient not taking: Reported on 07/14/2022) 5 Kit 5 Pantoprazole Sodium 40 MG Oral Tablet Delayed Release (Protonix) Take 1 tablet (40 mg) by mouthtwice a day for 30 days (Patient not taking: Reported on 09/08/2022) 60 Tablet 0 Colace Clear 50 MG Oral Capsule (Docusate Sodium) 50 mg orally twice a day As Needed for constipation (Patient not taking: Reported on 08/01/2022) 60 Capsule 0 No current facility-administered medications for this visit. Nursing Notes and Vital Signs reviewed. PHYSICAL EXAM: VITALS: BP 100/62 | Pulse 98 | Temp 37.4 C (99.3 F) (Tympanic) | SpO2 96% GENERAL: Patient is alert, well appearing, well nourished, no obvious distress HEAD: Normocephalic, no masses, lesions, or other abnormalities noted. EYE EXAM: Normal conjunctiva, PERRL and EOM's intact. LUNGS: Normal respiratory rate and normal respiratory effort. No wheeze, rhonchi or rales HEART: +S1S2. Regular. EXTREMITIES: +bilateral LE edema noted. Left anterior lower leg and some at dorsal foot with +increased warmth and moderate erythema. Small wound noted at distal LE. No purulent drainage noted. Assessment: Left leg cellulitis (Primary) - Cephalexin 500 MG Oral Capsule (Keflex); Take 1 Capsule by mouth in the morning and 1 Capsule at noon and 1 Capsule before bedtime. Do all this for 10 days. Medication as directed, tolerated in the past. Monitor over next 3 days for improvement, follow up with PCP if not improving. ER for severe or rapidly progressive symptoms as discussed in clinic. Also advised elevation and use of compression stockings to aid with chronic edema once cellulitis is improving. Mae Taylor PA-C [address] [address] documented in this encounter Nursing Notes * Sunita Reynolds LPN - 09/08/2022 3:44 PM EDT Teodoro Arceo is a 87 year old male who presents to walk-in clinic today complaining of Chief Complaint Patient presents with Edema Bilateral feet and red Main Symptoms: has been of eliquis since July, has an open area and is seeping some and does have some swelling Cause: unknown How long: unsure Tried: bandage Pt accompanied by: Friend documented in this encounter Plan of Treatment Upcoming Encounters Date Type Specialty Care Team Description 09/21/2022 Office Visit Pharmacy [facility] [address] [place] [address] 10/04/2022 Hospital Encounter Surgery Allan Persaud, DO [address] [place] [address] 10/04/2022 Surgery Surgery Allan Persaud, DO [address] [place], [place] [address] INJECTION SACROILIAC JOINT 10/09/2022 Nurse Only [facility] [place], [facility] [address] [place] [address] 11/08/2022 Office Visit Cardiology Lukasz Haines, DO [address] [place], [place] [address] 11/16/2022 Office Visit Orthopedics Jeison Arteaga, DO [address] [place] [address] 12/15/2022 Office Visit Nephrology RodríguezLili avalos MD [address] [place] [address] 05/16/2023 Office Visit Hematology Oncology Patricia Conway MD [address] [place] [address] Scheduled Procedures Name Priority Associated Diagnoses Date/Ti [...] Over 08/30/2022 08/30/2021 CKD PHOS USE SMARTSET 54064 12/12/202212/01, 12/02/2019, 02/18/2019, Additional history exists HbA1c 12/16/2022 06/15/2022, 12/01, 07/18/2021, Additional history exists Albumin/Creatinine Ratio 03/22/2023 022, 03/30/2021, 12/02/2019, Additional history exists CKD HGB USE SMARTSET 62024 05/16/202305/16, 05/16/2022, 03/22/2022, Additional history exists DTaP,Tdap,and [...] this encounter Visit Diagnoses Diagnosis Left leg cellulitis- Primary Cellulitis and abscess of leg, except foot Inflammation of sacroiliac joint (HCC) Sacroiliitis, not elsewhere classified documented in this encounter Care Teams Concrete Polisher Relationship Specialty Start Date End Date Eldon Dowd MD [address] [place], [place] [id number] PCP - General Family Medicine 12/05/18 documented as of this encounter"
--- OUTSIDE RECORDS SUMMARY | 2023-02-27 00:19 | External Medical Summary ---
Author Name Unknown Address Unknown Organization K01:[facility] [place] [facility] [address] [place] [address] Laboratory Report Ordering Provider Test Date Status EDGAR LAYTON 09/14/2022 09:40:16 Final Observation Date Value Abnormality Reference (Units ) Status BUN 09/14/2022 09:40:16 17 6-20 (mg/dL) Final Creatinine 09/14/2022 09:40:16 0.6 0.6-1.2 (mg/dL) Final Glomerular filtration rate/1.73 sq M.predicted [Volume Rate/Area] in Serum, Plasma or Blood by Creatinine-based formula (CKD-EPI) 09/14/2022 09:40:16 >90 >=60 (mL/min) Final eGFR is calculated based on the CKD-EPI 2020 equation SODIUM 09/14/2022 09:40:16 143 135-146 (m mol/L) Final Potassium 09/14/2022 09:40:16 4.5 3.5-5.1 (m mol/L) Final Cl 09/14/2022 09:40:16 107 98-107 (mm ol/L) Final CO2 09/14/2022 09:40:16 26 22-32 (mmo l/L) Final Anion gap 09/14/2022 09:40:16 10 7-15 (mmol /L) Final Glucose 09/14/2022 09:40:16 121 Above high normal 70 -120 (mg/dL) Final Calcium 09/14/2022 09:40:16 8.9 8.4-10.2 ( mg/dL) Final Performing Location [facility] [place] [address] [place] [address]
--- OUTSIDE RECORDS SUMMARY | 2023-02-27 00:19 | External Medical Summary ---
Author Name Unknown Address Unknown Organization K01:[facility]ORY [facility] [place] - [address] [place] [address] Laboratory Report Ordering Provider Test Date Status DAVIDA SCOTT 09/14/2022 09:40:16 Final Observation Date Value Abnormality Reference (Units ) Status MYCODE SPECIMEN-SST 09/14/2022 09:40:16 Freezing of extracted DNA, whole blood and/or serum. Final Performing Location [facility] [place] - [address] [place] [address]
--- OUTSIDE RECORDS SUMMARY | 2023-02-27 00:19 | External Medical Summary | Summary of Care ---
Author Name Unknown Organization [facility] Address [address] [place] [address] Phone [phone] Care Team Providers Care Rod Mill Operator Name Role Phone Eldon Dowd MD Primary Care Provider +1- [phone] Encounter Details Date Type Department Care Team Description 09/15/2022 Telephone [facility] [address] [place] [address] Karolina Valiente MD [address] [place] [address] Allergies Active Allergy Reactions Severity [...] 24 Hour (IMDUR)Indications :Coronary artery disease involving barrow coronary artery of barrow heart without angina pectoris,NSTEMI (non-ST elevated myocardial [...] URI with cough 03/25/2014 09/01/2016 Accelerate Clinical Trial*[id number] 08/27/2012 08/27/2012 Accelerate Clinical Trial*[id number] 08/27/2012 03/29/2015 Overview: ACCELERATE STUDY. Project # [id number], ENGINEERING SYSTEMS ANALYST: Basil Everett MD. CRC: GENE Whitney. SUMMARY: To test the hypothesis that Evacetrapib 130 mg, in comparison to placebo, reduces the risk of major adverse coronary events in high-risk vascular disease patients. CONTACTS: During normal business hours, contact study staff at ; after hours Bar Pilot via the [facility] hospital typecasting machine operator [phone]. 24-hour Global Study Helpline: [phone]. Lipid levels should not be ordered/obtained while this subject is in the Accelerate study. Lipids are being managed in a blinded fashion. If lipid levels are inadvertently obtained, it is important that test results are NOT provided to the patient, study doctor, tax collection coordinator, or other study team members. Restricted meds while in the study: 1) niacin > 250 mg, 2) gemfibrozil with a potent [id number]. Hyperglycemia 02/18/2012 01/10/2017 NSTEMI (non-ST elevated myocardial [...] Visit Pharmacy [facility] [address] [place] [address] 10/04/2022 Hospital Encounter Surgery Allan Persaud, [address] [place] [address] 10/04/2022 Surgery Surgery Allan Persaudian, DO [address] [place] [address] INJECTION SACROILIAC JOINT 10/09/2022 Nurse Only [facility] [address] [place] [address] 11/08/2022 Office Visit Cardiology Lukasz Haines, DO [address] [place] [address] 11/16/2022 Office Visit Orthopedics Jeison Arteaga, DO [address] [place] [address] 12/15/2022 Office Visit Nephrology RodríguezLili avalos MD [address] [place] [address] 03/22/2023 Office Visit Family Medicine Eldon Dowd MD [address] [place] [address] 05/16/2023 Office Visit Hematology Oncology Patricia Conway MD [address] [place] [address] Scheduled Procedures Name Priority Associated Diagnoses Date/Ti [...] Over 08/30/2022 08/30/2021 CKD PHOS USE SMARTSET 25957 12/12/202212/01, 12/02/2019, 02/18/2019, Additional history exists HbA1c 12/16/2022 06/15/2022, 12/01, 07/18/2021, Additional history exists Albumin/Creatinine Ratio 03/22/2023 022, 03/30/2021, 12/02/2019, Additional history exists CKD HGB USE SMARTSET 03720 09/15/202309/14, 05/16/2022, 05/16/2022, Additional history exists DTaP,Tdap,and [...] filedocumented as of this encounter Care Teams Rod Mill Operator Relationship Specialty Start Date End Date Eldon Dowd MD [address] [place] [address] PCP - General Family Medicine 12/05/18 documented as of this encounter
--- OUTSIDE RECORDS SUMMARY | 2023-02-27 00:19 | External Medical Summary | Summary of Care ---
Author Name Unknown Organization [facility] Address [address] [place] [address] Phone [phone] Care Team Providers Care Laboratory Animal Caretaker Name Role Phone Eldon Dowd MD Primary Care Provider +1- [phone] Reason for Visit * Reason Comments Outpatient Testing Encounter Details Date Type Department Care Team Description 09/14/2022 Laboratory Laboratory, [facility] [address] [place] [address] [facility] [address] [place] [address] [place] Other*[id number]; Iron deficiency anemia, unspecified iron deficiency anemia type; Type 2 diabetes mellitus with stage 3 chronic kidney disease, 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 residential insulin use, 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 stage 3a or 3b CKD (HCC) Allergies Active Allergy Reactions Severity Noted Date Comments Candesartan Cilexetil 01/04/2012 hyperkalemia Atenolol 08/21/2012 Pt was told not to take this again Other reaction(s): PT WAS TOLD NEVER TO TAKE AGAIN Candesartan High 06/13/2022 Other reaction(s): HYPERKALEMIA Lisinopril Other (Please comment) High 01/16/2014 Hypotension/ Increased creatinine Other reaction(s): INCREASED CREATININE/HYPOTENSION documented as of this encounter (statuses as of 09/14/2022) Medications Medication Sig Dispensed Refills Start Date [...] 24 Hour (IMDUR)Indications :Coronary artery disease involving [place] coronary artery of [place] heart without angina pectoris,NSTEMI (non-ST elevated myocardial [...] as of this encounter (statuses as of 09/14/2022) Active Problems Problem Noted Date Type 2 [...] as of this encounter (statuses as of 09/14/2022) Resolved Problems Problem Noted Date Resolved Date 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 Project # [id number], CUSHION FILLER: Basil Everett MD. CRC: GENE Whitney. SUMMARY: To test the hypothesis that Evacetrapib 130 mg, in comparison to placebo, reduces the risk of major adverse coronary events in high-risk vascular disease patients. CONTACTS: During normal business hours, contact study staff at ; after hours Ore Mixer via the [facility] tree feller operator [phone]. 24-hour Global Study Helpline: [phone]. Lipid levels should not be ordered/obtained while this subject is in the Accelerate study. Lipids are being managed in a blinded fashion. If lipid levels are inadvertently obtained, it is important that test results are NOT provided to the patient, study doctor, title coordinator, or other study team members. Restricted meds while in the study: 1) niacin > 250 mg, 2) gemfibrozil with a potent [id number]. Hyperglycemia 02/18/2012 01/10/2017 NSTEMI (non-ST elevated myocardial [...] as of this encounter (statuses as of 09/14/2022) Immunizations Name Administration Dates Next Due COVID-19 [...] Encounters Date Type Specialty Care Team Description 09/15/2022 Office Visit Family Medicine Karolina Valiente MD [address] [place] [facility] [place] [address] 09/21/2022 Office Visit [facility] [address] [facility] [address] 10/04/2022 Hospital Encounter Surgery Allan Persaud, DO [address] [place], [place] [address] 10/04/2022 Surgery Surgery Allan Persaud, DO [address] [place], [place] [address] INJECTION SACROILIAC JOINT 10/09/2022 Nurse Only Ancillary [facility], [facility] [address] [place] [address] 11/08/2022 Office Visit Cardiology Lukasz Haines, DO [address] [place] [address] 11/16/2022 Office Visit Orthopedics Jeison Arteaga, DO [address] [place] [address] 12/15/2022 Office Visit Nephrology Lili Rodríguez MD [address] [place] [address] 03/22/2023 Office Visit Family Medicine Eldon Dowd MD [address] [place] [facility] [place] [address] 05/16/2023 Office Visit Hematology Oncology [facility] [address] [facility] [address] Pending Results Name Type Priority Associated Diagnoses Date /Time MYCODE SUBSEQUENT ADULT Lab Routine MyCode Research Other*[id number] 09/14/2022 9:40 AM EDT CBC Lab Routine Iron deficiency anemia, unspecified iron deficiency anemia type 09/14/2022 9:40 AM EDT BASIC METABOLIC PANEL Lab Routine Type 2 diabetes mellitus with stage 3 chronic kidney disease, 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 clam picker insulin use, 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 stage 3a or 3b CKD (HCC) 09/14/2022 9:40 AM EDT MYCODE SST1 Lab Routine MyCode Research Other*[id number] 09/14/2022 9:40 AM EDT MYCODE SST2 Lab Routine MyCode Research Other*[id number] 09/14/2022 9:40 AM EDT Scheduled Procedures Name Priority Associated [...] Over 08/30/2022 08/30/2021 CKD PHOS USE SMARTSET 90082 12/12/202212/01, 12/02/2019, 02/18/2019, Additional history exists HbA1c 12/16/2022 06/15/2022, 12/01, 07/18/2021, Additional history exists Albumin/Creatinine Ratio 03/22/2023 022, 03/30/2021, 12/02/2019, Additional history exists CKD HGB USE SMARTSET 69059 05/16/202305/16, 05/16/2022, 03/22/2022, Additional history exists DTaP,Tdap,and [...] this encounter Visit Diagnoses Diagnosis MyCode Research Other*[id number] Iron deficiency anemia, unspecified iron deficiency anemia type Type 2 diabetes mellitus with stage 3 chronic kidney disease, 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 clam picker insulin use, 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 stage 3a or 3b CKD (HCC) Inflammation of sacroiliac joint (HCC) Sacroiliitis, not elsewhere classified documented in this encounter Care Teams Laboratory Animal Caretaker Relationship Specialty Start Date End Date Eldon Dowd MD [address] [place] [address] PCP - General Family Medicine 12/05/18 documented as of this encounter
--- OUTSIDE RECORDS SUMMARY | 2023-02-27 00:19 | External Medical Summary | Summary of Care ---
Author Name Unknown Organization [facility] Address [address] [facility] [place] [address] Phone [phone] Care Team Providers Care Waterproofing Machine Operator Name Role Phone Eldon Dowd MD Primary Care Provider +1- [phone] Reason for Visit * Reason Onset Date Comments Med Request 09/11/2022 Encounter Details Date Type Department Care Team Description 09/11/2022 Telephone Cardiology, [facility] [address] [place] [address] Lukasz Haines, [address] [place] [address] Med Request Allergies Active Allergy Reactions Severity Noted Date Comments Candesartan Cilexetil 01/04/2012 hyperkalemia Atenolol 08/21/2012 Pt was told not to take this again Other reaction(s): PT WAS TOLD NEVER TO TAKE AGAIN Candesartan High 06/13/2022 Other reaction(s): HYPERKALEMIA Lisinopril Other (Please comment) High 01/16/2014 Hypotension/ Increased creatinine Other reaction(s): INCREASED CREATININE/HYPOTENSION documented as of this encounter (statuses as of 09/13/2022) Medications Medication Sig Dispensed Refills Start Date [...] 24 Hour (IMDUR)Indications :Coronary artery disease involving [place] coronary artery of [place] heart without angina pectoris,NSTEMI (non-ST elevated myocardial [...] as of this encounter (statuses as of 09/13/2022) Active Problems Problem Noted Date Type 2 [...] as of this encounter (statuses as of 09/13/2022) Resolved Problems Problem Noted Date Resolved Date 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 Project # [id number], MEAT BLENDER: Basil Everett MD. CRC: GENE Whitney. SUMMARY: To test the hypothesis that Evacetrapib 130 mg, in comparison to placebo, reduces the risk of major adverse coronary events in high-risk vascular disease patients. CONTACTS: During normal business hours, contact study staff at ; after hours Sfdc Architect via the [facility] hospital tinning machine set up operator [phone]. 24-hour Global Study Helpline: [phone]. Lipid levels should not be ordered/obtained while [...] 250 mg, 2) gemfibrozil with a potent [id number]. Hyperglycemia 02/18/2012 01/10/2017 NSTEMI (non-ST elevated myocardial [...] as of this encounter (statuses as of 09/13/2022) Immunizations Name Administration Dates Next Due COVID-19 [...] encounter Miscellaneous Notes * Telephone Encounter - Avery Mac LPN - 09/13/2022 4:01 PM EDT Patient called in and was informed of Dr. Haines's message. Patient verbalized understanding. CBCorder already placed by PCP. * Telephone Encounter - Lukasz Haines DO - 09/13/2022 9:18 AM EDT Hospitalization 07/2022 secondary to GIB and anemia. Rhythm controlled with sotalol. Continue to hold eliquis. Repeat CBC. * Telephone Encounter - SADAF Saucedo - 09/11/2022 3:01 PM EDT Patient is calling in to ask if he should be continuing his Eliquis. Patient had stopped the medication back in July and is wondering if he should resume taking it. Please call patient at [phone] to discuss. Thanks, Esme Ramos [employer] Counter Person III [facility] ([facility]) 09/11/2022,3:04 PM documented in this encounter Plan of Treatment Upcoming Encounters Date Type Specialty Care Team Description 09/21/2022 Office Visit Pharmacy [facility] [address] [facility] [address] 10/04/2022 Hospital Encounter Surgery Allan Persaud DO [address] [place] [address] 10/04/2022 Surgery Surgery Allan Persaud DO [address] [place] [address] INJECTION SACROILIAC JOINT 10/09/2022 Nurse Only Ancillary Nurse [facility] [address] [place] [address] 11/08/2022 Office Visit Cardiology Lukasz Haines, DO [address] [place] [address] 11/16/2022 Office Visit Orthopedics Jeison Arteaga, DO [address] [place] [address] 12/15/2022 Office Visit Nephrology Lili Rodríguez MD [address] [place] [address] 05/16/2023 Office Visit Hematology Oncology Patricia Conway MD [address] [place] [address] Scheduled Procedures Name Priority Associated Diagnoses Date/Ti [...] Over 08/30/2022 08/30/2021 CKD PHOS USE SMARTSET 93804 12/12/202212/01, 12/02/2019, 02/18/2019, Additional history exists HbA1c 12/16/2022 06/15/2022, 12/01, 07/18/2021, Additional history exists Albumin/Creatinine Ratio 03/22/202303/22/2 022, 03/30/2021, 12/02/2019, Additional history exists CKD HGB USE SMARTSET 50627 05/16/202305/16, 05/16/2022, 03/22/2022, Additional history exists DTaP,Tdap,and [...] filedocumented as of this encounter Care Teams Waterproofing Machine Operator Relationship Specialty Start Date End Date Eldon Dowd MD [address] [place] [address] PCP - General Family Medicine 12/05/18 documented as of this encounter
--- OUTSIDE RECORDS SUMMARY | 2023-02-27 00:19 | External Medical Summary | Summary of Care ---
Author Name Unknown Organization [facility] Address [address] [facility] [place] [address] Phone [phone] Care Team Providers Care Family Service Caseworker Name Role Phone Eldon Dowd MD Primary Care Provider +1- [phone] Reason for Visit * Reason Onset Date Comments Med Request 09/11/2022 Encounter Details Date Type Department Care Team Description 09/11/2022 Telephone Cardiology, [facility] [address] [place] [address] Lukasz Haines, [address] [place] [address] Med Request Allergies Active Allergy Reactions Severity [...] 24 Hour (IMDUR)Indications :Coronary artery disease involving [place] coronary artery [...] URI with cough 03/25/2014 09/01/2016 Accelerate Clinical Trial*[id number] 08/27/2012 08/27/2012 Accelerate Clinical Trial*[id number] 08/27/2012 03/29/2015 Overview: ACCELERATE STUDY. Project # [id number], STREET RAILWAY LINE INSTALLER: Basil Everett MD. CRC: GENE Whitney. SUMMARY: To test the hypothesis that Evacetrapib 130 mg, in comparison to placebo, reduces the risk of major adverse coronary events in high-risk vascular disease patients. CONTACTS: During normal business hours, contact study staff at ; after hours Principal Product Manager via the [facility] hospital audit machine operator [phone]. 24-hour Global Study Helpline: [phone]. Lipid levels should not be ordered/obtained while this subject is in the Accelerate study. Lipids are being managed in a blinded fashion. If lipid levels are inadvertently obtained, it is important that test results are NOT provided to the patient, study doctor, project coordinator, or other study team members. Restricted meds while in the study: 1) niacin > 250 mg, 2) gemfibrozil with a potent [id number]. Hyperglycemia 02/18/2012 01/10/2017 NSTEMI (non-ST elevated myocardial [...] resume taking it. Please call patient at [phone] to discuss. Thanks, Esme Ramos Tow Picker III [facility] ([facility]) 09/11/2022,3:04 PM documented in this encounter Plan of Treatment Upcoming Encounters Date Type Specialty Care Team Description 09/21/2022 Office Visit Pharmacy [facility] [address] [facility] [place] [address] 10/04/2022 Hospital Encounter Surgery Allan Persaud DO [address] [place] [address] 10/04/2022 Surgery Surgery Allan Persaud DO [address] [place] [address] INJECTION SACROILIAC JOINT 10/09/2022 Nurse Only Ancillary Nurse Regina [facility] [address] [place] [address] 11/08/2022 Office Visit Cardiology Lukasz Haines, DO [address] [place] [address] 11/16/2022 Office Visit Orthopedics Jeison Arteaga, DO [address] [place] [address] 12/15/2022 Office Visit Nephrology Lili Rodríguez MD [address] [place] [address] 05/16/2023 Office Visit Hematology Oncology Patricia Conway MD [address] [facility] [place] [address] Scheduled Procedures Name Priority Associated Diagnoses Date/Ti [...] Over 08/30/2022 08/30/2021 CKD PHOS USE SMARTSET 11931 12/12/202212/01, 12/02/2019, 02/18/2019, Additional history exists HbA1c 12/16/2022 06/15/2022, 12/01, 07/18/2021, Additional history exists Albumin/Creatinine Ratio 03/22/202303/22/2 022, 03/30/2021, 12/02/2019, Additional history exists CKD HGB USE SMARTSET 86262 05/16/202305/16, 05/16/2022, 03/22/2022, Additional history exists DTaP,Tdap,and [...] filedocumented as of this encounter Care Teams Family Service Caseworker Relationship Specialty Start Date End Date Eldon Dowd MD [address] [place] [address] PCP - General Family Medicine 12/05/18 documented as of this encounter
--- OUTSIDE RECORDS SUMMARY | 2023-02-27 00:19 | External Medical Summary ---
Author Name Unknown Address Unknown Organization K[facility] [place] [address] [place] [address] Laboratory Report Ordering Provider Test Date Status DAVIDA SCOTT 09/14/2022 09:40:16 Final Observation Date Value Abnormality Reference (Units ) Status MYCODE SPECIMEN-SST 09/14/2022 09:40:16 Freezing of extracted DNA, whole blood and/or serum. Final Performing Location [facility] [place] [address] [place] [address]
--- NOTE | 2023-02-27 00:22 | History & Physical Report ---
Date of Service February 27, 2023 Assessment & Plan (1) Fall: Plan: 87-year-old male with past med history significant for type 2 diabetes, chronic kidney disease stage III, history of CAD, hypertension, paroxysmal atrial fibrillation, chronic diastolic CHF, chronic venous sufficiency of lower extremity, protein calorie malnutrition, inflammatory polyarthropathy, monoclonal paraproteinemia who lives alone at home presents with fall. Fall Mechanical Ambulatory dysfunction CT head, CT cervical spine, CT chest no acute findings Monitor in the hospital PT OT Stage II-III decubitus ulcers sacral region Wound care Penile ulcers Consult urology History of A-fib On sotalol and Coreg and aspirin Not on anticoagulation because of GI bleed History of chronic diastolic CHF Has lower extremity edema Continues home Lasix Recently Lasix dose increased to 60 mg daily by cardio but patient is taking only 40 mg Will continue 60 mg daily for now Says sometimes gets short of breath we will monitor History of inflammatory polyarthritis On prednisone CKD stage III Will follow the labs Leukocytosis Will follow repeat labs History of monoclonal paraproteinemia Follows with heme-onc Type 2 diabetes Hold home p.o. medications Sliding scale Will monitor History of CAD s/p drug-eluting stent to LAD On aspirin statin and beta-rm and Imdur Hypertension On Coreg, losartan, Imdur, terazosin and Lasix Will monitor DVT prophylaxis Heparin subcu Disposition Observation in med/telemetry Full code as per discussion with the patient Admission and Anticipated Discharge Date Admission Date: February 26, 2023 History of Present Illness Chief Complaint: Fall Primary Care Provider: Eldon Dowd MD 87-year-old male with past med significant for type 2 diabetes, chronic kidney disease stage III, history of CAD, hypertension, paroxysmal atrial fibrillation, chronic diastolic CHF, chronic venous sufficiency of lower extremity, protein calorie malnutrition, inflammatory polyarthropathy, monoclonal paraproteinemia who lives alone at home presents with fall. Patient does not walk. He states he sits in his rollator walker and pushes with the legs. He was sitting in his recliner. He was on the edge of the recliner when he slipped and fell and hit furniture. Has lower chest and abdominal pain. Has superficial cut on left forearm. Did not hit his head. No loss of consciousness. Was not able to get up. Currently resting comfortably and hemodynamically stable. No blurred visions. Have ringing in ears for some time. Having sore throat for last 1 week. Once in a while he gets difficulty swallowing. He is on a regular diet. Denies any fevers. Once in a while he gets short of breath. No chest pain before falling. No palpitations. No nausea. Normal bowel and bladder movements. He has some swelling in the legs. Saw cardiology last month and his Lasix increased to 60 mg but still taking 40 mg. Son in the room who helped with H&P. Past medical history. As mentioned above Past surgical history. Colonoscopy. Injection of sacroiliac joint. Sigmoidoscopy. Revision of ulnar nerve at elbow pain left arm and right arm. Social history. . Lives alone. No smoking. No alcohol. No drug use. Family history. Brother had heart disorder. Sister had CABG. Sister had rheumatic heart disease. Sister CVA. Mother had CVA and [place]. Father had pneumonia. Allergies Allergy/AdvReac Type Severity Reaction Status Date / Time atenolol Allergy Unknown PT WAS Verified 02/26/23 19:53 TOLD NEVER TO TAKE AGAIN candesartan [From Atacand] AdvReac Intermediate HYPERKALEMI Verified 02/26/23 19:53 A lisinopril AdvReac Intermediate INCREASED Verified 02/26/23 19:53 CREATININE/HYPOTENSION Home Medications Medication Instructions Recorded Confirmed Type albuterol sulfate 90 mcg/actuation 2 inh inhalation .Q4-6HR PRN 06/04/18 02/26/23 History breath activated powder inhaler Shortness Of Breath Or Wheezing aspirin 81 mg tablet,delayed 81 mg PO QAM 06/04/18 02/26/23 History release atorvastatin 80 mg tablet 80 mg PO QAM 06/04/18 02/26/23 History furosemide 40 mg tablet 60 mg PO QAM 06/04/18 02/26/23 History multivitamin-ferrous 1 tab PO DAILY 09/03/18 02/26/23 History fumarate-folic acid 18 mg-400 mcg tablet (Centrum) carvedilol 12.5 mg tablet 12.5 mg PO AMHS 06/13/22 02/26/23 History glipizide 2.5 mg tablet, extended 2.5 mg PO QAM 06/13/22 02/26/23 History release 24 hr isosorbide mononitrate 60 mg 60 mg PO QAM 06/13/22 02/26/23 History tablet,extended release 24 hr linagliptin 5 mg tablet (Tradjenta) 5 mg PO QAM 06/13/22 02/26/23 History nitroglycerin 0.4 mg sublingual 0.4 mg sublingual DIRECTED PRN 06/13/22 02/26/23 History tablet Chest Pain prednisone 5 mg tablet 5 - 15 mg PO QAM 06/13/22 02/27/23 History sotalol 80 mg tablet 40 mg PO BID 06/13/22 02/26/23 History terazosin 2 mg capsule 2 mg PO HS 06/13/22 02/26/23 History docusate sodium 50 mg capsule 50 mg PO BID PRN constipation #60 07/23/22 02/26/23 Rx (Colace Clear) caps coenzyme Q10 400 mg capsule 400 mg PO DAILY 02/26/23 02/26/23 History empagliflozin 10 mg tablet 10 mg PO QAM 02/26/23 02/26/23 History (Jardiance) losartan 50 mg tablet 50 mg PO QAM 02/26/23 02/26/23 History Past Med/Surg History Medical History Atrial fibrillation BPH (benign prostatic hyperplasia) CAD (coronary artery disease) 2012 - MARY to LAD Cardiac murmur Chronic back pain Chronic renal disease, stage III FOLLOWS W/ DR. 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) Myocardial Infarction 2011 Non-ST elevation (NSTEMI) myocardial infarction Osteoarthritis Scoliosis Seronegative arthritis Surgical History History of cataract surgery RIGHT History of heart artery stent History of tooth extraction Family History Mother Coronary heart disease, Onset Age: 63 of [place] CHF (congestive heart failure) Myocardial infarction Father CHF (congestive heart failure) Pneumonia Sister Coronary heart disease History of CABG Rheumatic heart disease Social History Smoking Status: Never smoker Second Hand Exposure: No; Do You Dip or Chew Tobacco: No; Tobacco Cessation Education Requested by Patient: No Hx Alcohol Use: No Hx Substance Use: No Preferred Language: Faroese Communication Ability: Effective Coremaking Supervisor Required: No Beliefs That Will Affect Care: None marital status: / Current Living Situation: Alone Other Information That Helps Us Care for You: No Feels Safe at Home: Yes Safety Concerns: Feels Safe At This Time Assistive Devices: Walker Review of Systems Review of Systems: All systems reviewed & are unremarkable except as noted in HPI & below Physical Exam Physical Exam: General- Not in distress Head- atraumatic Eyes- PERRL, ENT- oropharynx clear Neck- supple, no JVD. Lungs- clear to auscultation no wheezing or crackles. Heart- regular rhythm; no murmur, no gallop. Abdomen- normal bowel sounds, soft, mild tenderness. bruise seen., no distension Extremities- Lower extremity edema present. No erythema seen. Superficial wound seen on left fore arm. Neuro- alert, oriented; PERRL, no facial palsy; no dysarthria; moves extremities. Penile ulcers seen. Skin- Sacral decubitus ulcer stage 2/3 Results & Data Results & Data Vital Signs (Past 12 Hours) Vital Signs Temp Pulse Pulse Resp BP BP Pulse Ox 02/26/23 23:13 86 02/26/23 22:00 82 18 109/72 98 02/26/23 19:33 85 02/26/23 19:29 36.4 C L 83 18 122/84 95 O2 Del Method 02/26/23 23:13 02/26/23 22:00 Room Air 02/26/23 19:33 02/26/23 19:29 Room Air Diagnostic Findings Laboratory Results WBC 15.29 K/ul (4.8-10.8) H 02/26/23 21:45 RBC 4.91 M/uL (4.70-6.10) 02/26/23 21:45 Hgb 13.4 g/dl (14.0-18.0) L 02/26/23 21:45 Hct 41.4 % (42.0-52.0) L 02/26/23 21:45 MCV 84.3 fL (80.0-100.0) 02/26/23 21:45 MCH 27.3 pg (25.0-34.0) 02/26/23 21:45 MCHC 32.4 g/dL (32.0-36.0) 02/26/23 21:45 RDW Std Deviation 47.9 fL (36.4-46.3) H 02/26/23 21:45 RDW Coeff of Coty 15.9 % (11.5-14.5) H 02/26/23 21:45 Plt Count 204 K/uL (130-400) 02/26/23 21:45 MPV 10.5 fL (9.4-12.4) 02/26/23 21:45 Immature Gran % (Auto) 1.8 % 02/26/23 21:45 Neut % (Auto) 78.8 % 02/26/23 21:45 Lymph % (Auto) 10.1 % 02/26/23 21:45 Glenn % (Auto) 9.0 % 02/26/23 21:45 Eos % (Auto) 0.1 % 02/26/23 21:45 Baso % (Auto) 0.2 % 02/26/23 21:45 Neut # (Auto) 12.05 K/uL (1.40-6.50) H 02/26/23 21:45 Lymph # (Auto) 1.55 K/uL (1.20-3.40) 02/26/23 21:45 Glenn # (Auto) 1.38 K/uL (0.11-0.59) H 02/26/23 21:45 Eos # (Auto) 0.01 K/uL (0.00-0.50) 02/26/23 21:45 Baso # (Auto) 0.03 K/uL (0.00-0.20) 02/26/23 21:45 Immature Gran # (Auto) 0.27 K/uL (0.01-0.20) H 02/26/23 21:45 Sodium 136 mmol/L (136-145) 02/26/23 21:45 Potassium 4.1 mmol/L (3.5-5.1) 02/26/23 21:45 Chloride 102 mmol/L (98-107) 02/26/23 21:45 Carbon Dioxide 23 mmol/L (21-32) 02/26/23 21:45 Anion Gap 11 (3-11) 02/26/23 21:45 BUN 38 mg/dl (6-23) H 02/26/23 21:45 Creatinine 0.66 mg/dl (0.6-1.4) 02/26/23 21:45 Est Cr Clr Drug Dosing 64.9 ml/min 02/26/23 21:45 Est GFR ( Amer) 100.0 ml/min 02/26/23 21:45 Est GFR (Non-Af Amer) 86.3 ml/min 02/26/23 21:45 BUN/Creatinine Ratio 57.6 (10-20) H 02/26/23 21:45 Glucose 218 mg/dl (70-99(Fasting)) H 02/26/23 21:45 Calcium 8.7 mg/dl (8.6-10.3) 02/26/23 21:45 Magnesium 2.1 mg/dl (1.7-2.4) 02/26/23 21:45 Total Bilirubin 0.5 mg/dl (0.2-1.0) 02/26/23 21:45 AST 22 U/L (13-39) 02/26/23 21:45 ALT 25 U/L (7-52) 02/26/23 21:45 Alkaline Phosphatase 51 U/L (34-104) 02/26/23 21:45 Total Protein 5.8 gm/dl (6.0-8.3) L 02/26/23 21:45 Albumin 3.2 gm/dl (3.4-5.0) L 02/26/23 21:45 Globulin 2.6 gm/dl (2.5-4.0) 02/26/23 21:45 Albumin/Globulin Ratio 1.2 (0.9-2) 02/26/23 21:45 Urine Color Yellow 02/26/23 20:38 Urine Appearance Clear (Clear) 02/26/23 20:38 Urine pH 7.0 (4.5-7.5) 02/26/23 20:38 Ur Specific [place] 1.025 (1.000-1.030) 02/26/23 20:38 Urine Protein Negative (Negative) 02/26/23 20:38 Urine Glucose (UA) 3+ (Negative) H 02/26/23 20:38 Urine Ketones Negative (Negative) 02/26/23 20:38 Urine Blood Negative (Negative) 02/26/23 20:38 Urine Nitrite Negative (Negative) 02/26/23 20:38 Urine Bilirubin Negative (Negative) 02/26/23 20:38 Urine Urobilinogen Negative (Negative) 02/26/23 20:38 Ur Leukocyte Esterase Negative (Negative) 02/26/23 20:[address] 02/26/23 19:41 Exam(s): CT C SPINE EXAM: CT Cervical Spine Without Intravenous Contrast CLINICAL HISTORY: Reason for exam: trauma. TECHNIQUE: Axial computed tomography images of the cervical spine without intravenous contrast. CTDI is 21.93 mGy and DLP is 430.72 mGy-cm. Automated exposure control was utilized for the study. A dose lowering technique was utilized adhering to the principles of ALARA. COMPARISON: No relevant prior studies available. FINDINGS: The vertebral body heights are maintained. The craniocervical junction is intact. The atlanto-dens interval is maintained. The dens is intact. There is no spondylolisthesis. Multilevel cervical spondylosis and degenerative disc disease. Straightening of the cervical lordosis. The unenhanced neck soft tissues are grossly unremarkable. The visualized lung apices are grossly clear. IMPRESSION: No acute fracture or subluxation of the cervical spine. Electronically signed by: Chapincito Loera MD 02/26/23 20:[address] 02/26/23 19:41 Exam(s): CT HEAD Without Contrast EXAM: CT Head Without Intravenous Contrast CLINICAL HISTORY: Reason for exam: trauma. TECHNIQUE: Axial computed tomography images of the head/brain without intravenous contrast. CTDI is 37.01 mGy and DLP is 546.36 mGy-cm. Automated exposure control was utilized for the study. A dose lowering technique was utilized adhering to the principles of ALARA. COMPARISON: No relevant prior studies available. FINDINGS: No acute intracranial hemorrhage. No midline shift or mass effect. The territorial hu-white matter differentiation is maintained throughout. Age-related cerebral volume loss. Periventricular and subcortical white matter hypoattenuation, consistent with chronic microangiopathy. The visualized orbits appear grossly unremarkable. The calvarium is intact. The visualized paranasal sinuses and mastoid air cells are grossly clear. IMPRESSION: No acute intracranial hemorrhage, midline shift, or mass effect. Electronically signed by: Chapincito Loera MD 02/26/23 20:[address] 02/26/23 19:48 Exam(s): CT CHEST Without Contrast EXAM: CT Chest Without Intravenous Contrast CLINICAL HISTORY: Reason for exam: trauma; left-sided chest wall pain. TECHNIQUE: Axial computed tomography images of the chest without intravenous contrast. CTDI is 14.55 mGy and DLP is 484.54 mGy-cm. Automated exposure control was utilized for the study. A dose lowering technique was utilized adhering to the principles of ALARA. COMPARISON: No relevant prior studies available. FINDINGS: Lungs: Increased AP diameter of the chest and flattening of the diaphragms, concerning for COPD. Atelectasis at the LEFT lung base. No mass. Pleural space: Unremarkable. No pneumothorax. No significant effusion. Heart: Cardiomegaly. No significant pericardial effusion. No significant coronary artery calcifications. Mediastinum: Large hiatal hernia with the entire stomach in a retrocardiac position. Bones/joints: Degenerative changes of the spine. No acute fracture. No dislocation. Soft tissues: Mild gynecomastia. Vasculature: Atherosclerotic changes of the aorta. No thoracic aortic aneurysm. Lymph nodes: Unremarkable. No enlarged lymph nodes. IMPRESSION: 1. Large hiatal hernia with the entire stomach in a retrocardiac position. 2. Increased AP diameter of the chest and flattening of the diaphragms, concerning for COPD. Electronically signed by: Chapincito Loera MD 02/26/23 20:38 PM Code Status & VTE Plan VTE Prophylaxis Plan VTE Prophylaxis will be ordered: Yes
[2023-02-27 04:32] LABS: Basophils # (auto) 0.03 K/uL (0.00-0.20); Basophils % (auto) 0.3 %; Eosinophils # (auto) 0.02 K/uL (0.00-0.50); Eosinophils % (auto) 0.2 %; Hematocrit (blood only) 38.7 % (42.0-52.0); Hemoglobin 12.4 g/dl (14.0-18.0); Immature Granulocytes # (auto) 0.18 K/uL (0.01-0.20); Immature Granulocytes % (auto) 1.6 %; Lymphocytes % (auto) 13.3 %; Mean Corpuscular Hemoglobin 27.1 pg (25.0-34.0); Mean Corpuscular Volume 84.5 fL (80.0-100.0); Mean Platelet Volume 11.3 fL (9.4-12.4); Monocytes # (auto) 1.19 K/uL (0.11-0.59); Monocytes % (auto) 10.6 %; Neutrophils # (auto) 8.35 K/uL (1.40-6.50); Platelet Count 169 K/uL (130-400); RDW Coefficient of Variation 15.9 % (11.5-14.5); RDW Standard Deviation 48.7 fL (36.4-46.3); Red Blood Count 4.58 M/uL (4.70-6.10); White Blood Count 11.27 K/ul (4.8-10.8)
[2023-02-27 04:38] LABS: BUN Creatinine Ratio 58.1 (10-20); Calcium 8.5 mg/dl (8.6-10.3); Creatinine Clr Calc Pharmacy 69.1 ml/min; Est GFR (African American) 102.7 ml/min; Est GFR (Non-African American) 88.6 ml/min; Potassium 3.7 mmol/L (3.5-5.1)
[2023-02-27 07:24] LABS: Estimated Average Glucose 286 mg/dl; Hemoglobin A1C 11.6 % (4.5-5.6)
--- NOTE | 2023-02-27 08:05 | Hospitalist Progress Note ---
Date of Service February 27, 2023 Assessment & Plan (1) Fall: Plan: Mr Salvador is an 87-year-old male with past med history significant for type 2 diabetes, chronic kidney disease stage III, history of CAD, hypertension, paroxysmal atrial fibrillation, chronic diastolic CHF, chronic venous sufficiency of lower extremity, protein calorie malnutrition, inflammatory polyarthropathy, monoclonal paraproteinemia who lives alone at home and admitted due to fall. Patient with multiple concerns, including chest pain (non-cardiac) related to fall, left elbow pain, multiple skin tears. course complicated by atypical chest pain (occured at rest, relived with nitro) EKG obtained at bedside with concerning ST changes. BMP, CBC, Trop, CK, BNP, Lactate ordered to assess for concerns of AMI or rhabdo XR Left arm ordered given recent fall and pain with movement #Atypical Chest pain, c/w previous angina #Obstructive Coronary Artery Disease s/p MARY 2011 #History of AMI -EKG with questionable changes in V1-V3 -Follow up on troponin, lactate, cbc, bmp, bnp -s/p nitro, asa -Monitor on tele -Hold Imdur/ARB iso hypotension resume as able -LR 250 bolus + 80cc/hr rate 1 L -ECHO ordered for chest pain -Cardiology on consult #Non-cardiac chest pain 2/2 fall #Left elbow pain -No fractures of ribs noted on CT -Imaging of Left elbow ordered #Mechanical fall #Ambulatory dysfunction CT head, CT cervical spine, CT chest no acute findings Monitor in the hospital PT OT #Multiple skin tears #Skin maceration of left hip #Stage II-III decubitus ulcers sacral region Wound care consult Muprocin to areas until wound care recommendations #Penile ulceration Consult urology Mupirocin in interim, does not appear infected miconazole cream to groin/scrotum #Paroxysmal A-fib Not on anticoagulation because of GI bleed On sotalol and Coreg and aspirin -Continue ASA -Continue sotalol -Hold coreg in interim due to relative hypotension #chronic heart failure with diastolic dysfuntion recently Lasix dose increased to 60 mg daily by cardio but patient is taking only 40 mg Continue Lasix BNP ordered Cardiology on consult #History of inflammatory polyarthritis On prednisone #CKD stage III Trend BMP #Leukocytosis *downtrending Though multiple skin tears, no clear sign of infection Trend CBC, empiric if necessary #History of monoclonal paraproteinemia Follows with heme-onc #Type 2 diabetes Hold home p.o. medications Sliding scale Will monitor DVT prophylaxis Heparin subcu Disposition Observation in med/telemetry Full code as per discussion with the patient on 02/26/2023 Admission and Anticipated Discharge Date Admission Date: February 26, 2023 Subjective Upset over skin tear on arm Endorses left rib pain from fall, then noted chest pain that has been consistent with anginal pain previously, requesting to speak to [employer] When requesting/asking patient to explain pain to greater degree, became more upset about skin tears on arm and his stay in the ED After taking nitro, became much more pleasant and conversational--reports pain resolved Review of Systems Review of Systems: All systems reviewed & are unremarkable except as noted in Subjective Physical Exam Constitutional: WD/WN, vitals as above Respiratory: normal respiratory effort, lungs clear to auscultation Cardiovascular: RRR, no murmur, no edema Musculoskeletal: left sided tenderness to palpation along costal margin left elbow pain with passive movement (flexion, extension) Skin: left arm with multiple skin tears left hip with skin maceration Penis with erythema of foreskin Results & Data Results & Data Vital Signs (Past 12 Hours) Vital Signs Temp Pulse Pulse Pulse Resp BP Pulse Ox 02/27/23 07:54 37.0 C 73 22 145/74 H 99 02/27/23 06:00 75 18 113/67 96 02/27/23 02:00 80 18 101/53 L 96 02/26/23 23:13 86 02/26/23 22:00 82 18 109/72 98 O2 Del Method 02/27/23 07:54 Room Air 02/27/23 06:00 Room Air 02/27/23 02:00 Room Air 02/26/23 23:13 02/26/23 22:00 Room Air Laboratory Results Short CBC 02/26/23 02/27/23 Range/Units 21:45 04:07 WBC 15.29 H 11.27 H (4.8-10.8) K/ul Hgb 13.4 L 12.4 L (14.0-18.0) g/dl Hct 41.4 L 38.7 L (42.0-52.0) % Plt Count 204 169 (130-400) K/uL BMP 02/26/23 02/27/23 21:45 04:07 Sodium 136 135 L Potassium 4.1 3.7 Chloride 102 104 Carbon Dioxide 23 25 BUN 38 H 36 H Creatinine 0.66 0.62 Glucose 218 H 240 H Calcium 8.7 8.5 L Liver Function 02/26/23 Range/Units 21:45 Total Bilirubin 0.5 (0.2-1.0) mg/dl AST 22 (13-39) U/L ALT 25 (7-52) U/L Alkaline Phosphatase 51 (34-104) U/L Albumin 3.2 L (3.4-5.0) gm/dl Urine 02/26/23 Range/Units 20:38 Urine Color Yellow Urine Appearance Clear (Clear) Urine pH 7.0 (4.5-7.5) Ur Specific [place] 1.025 (1.000-1.030) Urine Protein Negative (Negative) Urine Glucose (UA) 3+ H (Negative) Diagnostic Findings Cervical Spine CT 02/26/23 19:41 Exam(s): CT C SPINE EXAM: CT Cervical Spine Without Intravenous Contrast CLINICAL HISTORY: Reason for exam: trauma. TECHNIQUE: Axial computed tomography images of the cervical spine without intravenous contrast. CTDI is 21.93 mGy and DLP is 430.72 mGy-cm. Automated exposure control was utilized for the study. A dose lowering technique was utilized adhering to the principles of ALARA. COMPARISON: No relevant prior studies available. FINDINGS: The vertebral body heights are maintained. The craniocervical junction is intact. The atlanto-dens interval is maintained. The dens is intact. There is no spondylolisthesis. Multilevel cervical spondylosis and degenerative disc disease. Straightening of the cervical lordosis. The unenhanced neck soft tissues are grossly unremarkable. The visualized lung apices are grossly clear. IMPRESSION: No acute fracture or subluxation of the cervical spine. Electronically signed by: Chapincito Loera MD 02/26/23 20:[address] 02/26/23 19:41 Exam(s): CT HEAD Without Contrast EXAM: CT Head Without Intravenous Contrast CLINICAL HISTORY: Reason for exam: trauma. TECHNIQUE: Axial computed tomography images of the head/brain without intravenous contrast. CTDI is 37.01 mGy and DLP is 546.36 mGy-cm. Automated exposure control was utilized for the study. A dose lowering technique was utilized adhering to the principles of ALARA. COMPARISON: No relevant prior studies available. FINDINGS: No acute intracranial hemorrhage. No midline shift or mass effect. The territorial hu-white matter differentiation is maintained throughout. Age-related cerebral volume loss. Periventricular and subcortical white matter hypoattenuation, consistent with chronic microangiopathy. The visualized orbits appear grossly unremarkable. The calvarium is intact. The visualized paranasal sinuses and mastoid air cells are grossly clear. IMPRESSION: No acute intracranial hemorrhage, midline shift, or mass effect. Electronically signed by: Chapincito Loera MD 02/26/23 20:[address] 02/26/23 19:48 Exam(s): CT CHEST Without Contrast EXAM: CT Chest Without Intravenous Contrast CLINICAL HISTORY: Reason for exam: trauma; left-sided chest wall pain. TECHNIQUE: Axial computed tomography images of the chest without intravenous contrast. CTDI is 14.55 mGy and DLP is 484.54 mGy-cm. Automated exposure control was utilized for the study. A dose lowering technique was utilized adhering to the principles of ALARA. COMPARISON: No relevant prior studies available. FINDINGS: Lungs: Increased AP diameter of the chest and flattening of the diaphragms, concerning for COPD. Atelectasis at the LEFT lung base. No mass. Pleural space: Unremarkable. No pneumothorax. No significant effusion. Heart: Cardiomegaly. No significant pericardial effusion. No significant coronary artery calcifications. Mediastinum: Large hiatal hernia with the entire stomach in a retrocardiac position. Bones/joints: Degenerative changes of the spine. No acute fracture. No dislocation. Soft tissues: Mild gynecomastia. Vasculature: Atherosclerotic changes of the aorta. No thoracic aortic aneurysm. Lymph nodes: Unremarkable. No enlarged lymph nodes. IMPRESSION: 1. Large hiatal hernia with the entire stomach in a retrocardiac position. 2. Increased AP diameter of the chest and flattening of the diaphragms, concerning for COPD. Electronically signed by: Chapincito Loera MD 02/26/23 20:38 PM Medications Administered Home Medications Medication Instructions Recorded Confirmed Last Taken albuterol sulfate 90 mcg/actuation 2 inh inhalation .Q4-6HR PRN 06/04/18 02/26/23 06/18/18 breath activated powder inhaler Shortness Of Breath Or Wheezing aspirin 81 mg tablet,delayed 81 mg PO QAM 06/04/18 02/26/23 02/26/23 release atorvastatin 80 mg tablet 80 mg PO QAM 06/04/18 02/26/23 02/26/23 furosemide 40 mg tablet 60 mg PO QAM 06/04/18 02/26/23 02/26/23 multivitamin-ferrous 1 tab PO DAILY 09/03/18 02/26/23 02/26/23 fumarate-folic acid 18 mg-400 mcg tablet (Centrum) carvedilol 12.5 mg tablet 12.5 mg PO AMHS 06/13/22 02/26/23 02/26/23 am glipizide 2.5 mg tablet, extended 2.5 mg PO QAM 06/13/22 02/26/23 02/26/23 release 24 hr isosorbide mononitrate 60 mg 60 mg PO QAM 06/13/22 02/26/23 02/26/23 tablet,extended release 24 hr linagliptin 5 mg tablet (Tradjenta) 5 mg PO QAM 06/13/22 02/26/23 07/05/22 nitroglycerin 0.4 mg sublingual 0.4 mg sublingual DIRECTED PRN 06/13/22 02/26/23 Unknown tablet Chest Pain prednisone 5 mg tablet 5 - 15 mg PO QAM 06/13/22 02/27/23 07/05/22 sotalol 80 mg tablet 40 mg PO BID 06/13/22 02/26/23 02/26/23 terazosin 2 mg capsule 2 mg PO HS 06/13/22 02/26/23 02/25/23 docusate sodium 50 mg capsule 50 mg PO BID PRN constipation #60 07/23/22 02/26/23 Unknown (Colace Clear) caps coenzyme Q10 400 mg capsule 400 mg PO DAILY 02/26/23 02/26/23 02/26/23 empagliflozin 10 mg tablet 10 mg PO QAM 02/26/23 02/26/23 02/26/23 (Jardiance) losartan 50 mg tablet 50 mg PO QAM 02/26/23 02/26/23 02/26/23 Active Medications Generic Name Dose Route Start Last Admin Trade Name Freq PRN Reason Stop Dose Admin Acetaminophen 650 mg 02/27/23 00:08 02/27/23 03:23 Acetaminophen 325 Mg Tab PO 03/29/23 00:07 650 mg Q4H PRN Administration Pain or Fever Aspirin 81 mg 02/27/23 09:00 02/27/23 11:08 Aspirin 81 Mg Ectab PO 03/29/23 08:59 81 mg QAM ANNALISA Administration Atorvastatin Calcium 80 mg 02/27/23 09:00 02/27/23 11:08 Atorvastatin 40 Mg Tab PO 03/29/23 08:59 80 mg QAM ANNALISA Administration Carvedilol 12.5 mg 02/27/23 09:00 02/27/23 11:08 Carvedilol 12.5 Mg Tab PO 03/29/23 08:59 12.5 mg AMHS ANNALISA Administration Furosemide 60 mg 02/27/23 09:00 02/27/23 11:07 Furosemide 20 Mg Tab PO 03/29/23 08:59 60 mg QAM ANNALISA Administration Heparin Sodium (Porcine) 5,000 units 02/27/23 09:00 02/27/23 11:05 Heparin Sod 5,000 Unit/0.5 Ml Vial SQ 03/29/23 08:59 5,000 units Q12 ANNALISA Administration Insulin Aspart 0 units 02/27/23 07:30 02/27/23 11:08 Insulin Aspart Per Unit Charge SC 03/29/23 07:29 3 units ACHS ANNALISA Administration Isosorbide Mononitrate 60 mg 02/27/23 09:00 02/27/23 11:07 Isosorbide [place] Extended Rel 60 Mg Tabcr PO 03/29/23 08:59 60 mg QAM ANNALISA Administration Losartan Potassium 50 mg 02/27/23 09:00 02/27/23 11:07 Losartan Potassium 50 Mg Tab PO 03/29/23 08:59 50 mg QAM ANNALISA Administration Multivitamins/Minerals 1 tab 02/27/23 09:00 02/27/23 11:07 Cerovite Adv Formula Tab PO 03/29/23 08:59 1 tab DAILY ANNALISA Administration Prednisone 10 mg 02/27/23 09:00 02/27/23 11:06 Prednisone 10 Mg Tablet PO 03/29/23 08:59 10 mg QAM ANNALISA Administration Sotalol HCl 40 mg 02/27/23 09:00 02/27/23 11:07 Sotalol Hcl 80 Mg Tab PO 03/29/23 08:59 40 mg BID ANNALISA Administration Trolamine Salicylate 1 appln 02/27/23 09:20 02/27/23 11:05 Trolamine Salicylate 10% Crm 255 Appln/85 Gm Tube EXT 03/29/23 09:19 1 appln Q4H PRN Administration pain along ribs
[2023-02-27] MEDS ORDERED: LOSARTAN POTASSIUM 50 MG TAB PO SCH (09:00)
[2023-02-27] MEDS ORDERED: carvediloL 12.5 MG TAB PO SCH (09:00)
[2023-02-27] MEDS ORDERED: FUROSEMIDE 20 MG TAB PO SCH (09:00)
[2023-02-27] MEDS ORDERED: ISOSORBIDE MONO EXTENDED REL 60 MG TABCR PO SCH (09:00)
[2023-02-27] MEDS: HEPARIN SOD 5,000 UNIT/0.5 ML VIAL SQ SCH ×2 (11:05→22:21)
[2023-02-27] MEDS: TROLAMINE SALICYLATE 10% CRM 255 APPLN/85 GM TUBE EXT PRN ×2 (11:05→22:23)
[2023-02-27] MEDS: predniSONE 10 MG TABLET PO SCH (11:06)
[2023-02-27] MEDS: SOTALOL HCL 80 MG TAB PO SCH ×2 (11:07→22:21)
[2023-02-27] MEDS: CEROVITE ADV FORMULA TAB PO SCH (11:07)
[2023-02-27] MEDS: ASPIRIN 81 MG ECTAB PO SCH (11:08)
[2023-02-27] MEDS: ATORVASTATIN 40 MG TAB PO SCH (11:08)
[2023-02-27] MEDS: INSULIN ASPART PER UNIT CHARGE SC SCH ×4 (11:08→22:21)
[2023-02-27] MEDS ORDERED: ASPIRIN 81 MG CHEW PO STA (13:17)
[2023-02-27] MEDS ORDERED: NITROGLYCERIN SL 0.4 MG/TAB TAB SL STA (13:17)
[2023-02-27] MEDS ORDERED: ASPIRIN CHEW 324 MG ONE (13:21)
[2023-02-27] MEDS ORDERED: LACTATED RINGER'S 250 ML IV ONE (13:45)
[2023-02-27] MEDS ORDERED: LACTATED RINGER'S 1,000 ML IV SCH ×2 (14:15→15:00)
--- NOTE | 2023-02-27 14:59 | XRay Report ---
XR elbow LT 2V HISTORY: 87 years-old Male fall acute left elbow pain status post fall COMPARISON: None TECHNIQUE: 2 views of the left elbow FINDINGS: Limited exam secondary to positioning. 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 No definite acute fracture or dislocatio n identified. No joint effusion is seen. IMPRESSION: 1. Severe osteoarthritis without definite acute fracture identified. 2. Moderate circumferential soft tissue swelling. ACT 112: Negative or not required by law. The above report was generated using voice recognition software. It may contain grammatical, syntax o r spelling errors. Electronically signed by: Jony Rain M.D. 02/27/2023 2:58 PM
[2023-02-27] MEDS ORDERED: VANCOMYCIN CONSULT ACTIVE PRN (15:18)
--- NOTE | 2023-02-27 15:29 | Urology Consultation ---
Date of Consultation February 27, 2023 Assessment & Plan (1) Balanitis: (2) Penile ulcer: Plan 87yo/M admitted after a mechanical fall. Urology consulted for penile ulcer. Exam consistent with balanitis/balanopostitis. Can continue topical mupirocin and miconazole to foreskin/meatus. Recommend keeping the area clean and dry. Will arrange outpatient follow-up with our service. Urology will sign-off. Please contact us with any further questions, concerns, or changes in patient status. History of Present Illness Attending Physician: Lauren Ly MD History of Present Illness 87-year-old male with past med history significant for type 2 diabetes, chronic kidney disease stage III, history of CAD, hypertension, paroxysmal atrial fib rillation, chronic diastolic CHF, chronic venous sufficiency of lower extremity, protein calorie malnutrition, inflammatory polyarthropathy, monoclonal paraproteinemia who lives alone at home who presented today after a mechanical fall. Urology asked to evaluate patient for penile ulcer. Pt examined at bedside this AM. Awake, resting in bed on arrival. No acute distress. Denies f/c/n/v. Reports he is voiding without issue. Denies hematuria or dysuria. Reports he is uncircumcised and has had irritation/ulceration on his foreskin for approximately 1-2 weeks. He has been trying to keep the area clean and dry. He has also been applying a OTC cortisone cream at home. He denies prior urological history. Allergies Allergy/AdvReac Type Severity Reaction Status Date / Time atenolol Allergy Unknown PT WAS Verified 02/26/23 19:53 TOLD NEVER TO TAKE AGAIN candesartan [From Atacand] AdvReac Intermediate HYPERKALEMI Verified 02/26/23 19:53 A lisinopril AdvReac Intermediate INCREASED Verified 02/26/23 19:53 CREATININE/HYPOTENSION Home Medications Medication Instructions Recorded Confirmed Type albuterol sulfate 90 mcg/actuation 2 inh inhalation .Q4-6HR PRN 06/04/18 02/26/23 History breath activated powder inhaler Shortness Of Breath Or Wheezing aspirin 81 mg tablet,delayed 81 mg PO QAM 06/04/18 02/26/23 History release atorvastatin 80 mg tablet 80 mg PO QAM 06/04/18 02/26/23 History furosemide 40 mg tablet 60 mg PO QAM 06/04/18 02/26/23 History multivitamin-ferrous 1 tab PO DAILY 09/03/18 02/26/23 History fumarate-folic acid 18 mg-400 mcg tablet (Centrum) carvedilol 12.5 mg tablet 12.5 mg PO AMHS 06/13/22 02/26/23 History glipizide 2.5 mg tablet, extended 2.5 mg PO QAM 06/13/22 02/26/23 History release 24 hr isosorbide mononitrate 60 mg 60 mg PO QAM 06/13/22 02/26/23 History tablet,extended release 24 hr linagliptin 5 mg tablet (Tradjenta) 5 mg PO QAM 06/13/22 02/26/23 History nitroglycerin 0.4 mg sublingual 0.4 mg sublingual DIRECTED PRN 06/13/22 History tablet Chest Pain prednisone 5 mg tablet 5 - 15 mg PO QAM 06/13/22 02/27/23 History sotalol 80 mg tablet 40 mg PO BID 06/13/22 02/26/23 History terazosin 2 mg capsule 2 mg PO HS 06/13/22 02/26/23 History docusate sodium 50 mg capsule 50 mg PO BID PRN constipation #60 07/23/22 02/26/23 Rx (Colace Clear) caps coenzyme Q10 400 mg capsule 400 mg PO DAILY 02/26/23 02/26/23 History empagliflozin 10 mg tablet 10 mg PO QAM 02/26/23 02/26/23 History (Jardiance) losartan 50 mg tablet 50 mg PO QAM 02/26/23 02/26/23 History Patient History Medical History Atrial fibrillation BPH (benign prostatic hyperplasia) CAD (coronary artery disease) 2011 - MARY to LAD Cardiac murmur Chronic back pain Chronic renal disease, stage III FOLLOWS W/ DR. 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) Myocardial Infarction 2011 Non-ST elevation (NSTEMI) myocardial infarction Osteoarthritis Scoliosis Seronegative arthritis Surgical History History of cataract surgery RIGHT History of heart artery stent History of tooth extraction Family History Mother Coronary heart disease, Onset Age: 63 of [place] CHF (congestive heart failure) Myocardial infarction Father CHF (congestive heart failure) Pneumonia Sister Coronary heart disease History of CABG Rheumatic heart disease Social History Smoking Status: Never smoker Second Hand Exposure: No; Do You Dip or Chew Tobacco: No; Tobacco Cessation Education Requested by Patient: No Hx Alcohol Use: No Hx Substance Use: No Preferred Language: British Communication Ability: Effective Rough Carpenter Required: No Beliefs That Will Affect Care: None marital status: / Current Living Situation: Alone Other Information That Helps Us Care for You: No Feels Safe at Home: Yes Safety Concerns: Feels Safe At This Time Assistive Devices: Walker Review of Systems Review of Systems: All systems reviewed & are unremarkable except as noted in HPI & below Physical Exam Constitutional: no acute distress Neck: normal visual inspection Respiratory: no respiratory distress and no labored breathing Gastrointestinal (Abdomen): Percussion/Palpation: abdomen soft; abdomen nontender Musculoskeletal: Head/Neck/Chest: normocephalic Neurologic: moves all extremities and awake Psychiatric: A+Ox3, euthymic affect Genitourinary: Uncircumcised penis. Foreskin is tight and not easily retractable. Mild erythema of foreskin. There is yellow/white slough at meatus and glans. Small ulcerations to foreskin. No drainage. No necrotic appearing tissue. No significant scrotal erythema or edema noted. Results & Data Vital Signs (Past 12 Hours) Vital Signs Temp Pulse Pulse Pulse Resp BP Pulse Ox 02/27/23 09:03 74 02/27/23 07:54 37.0 C 73 22 145/74 H 99 02/27/23 06:00 75 18 113/67 96 O2 Del Method 02/27/23 09:03 02/27/23 07:54 Room Air 02/27/23 06:00 Room Air PG Care Time/CCT Total # of Minutes Spent Total Time Spent with Patient: Total time spent is greater than 50% in coordination of care (as documented) at patient's floor/unit and/or counseling patient: Coding Level of Care Code 01537 INT INP/OBS CARE 2/55MIN Diagnoses Balanitis N48.1 Penile ulcer N48.5
[2023-02-27 15:40] LABS: Hematocrit (blood only) 37.4 % (42.0-52.0); Mean Corpuscular Hemoglobin 26.9 pg (25.0-34.0); Mean Corpuscular Hgb Conc 32.1 g/dL (32.0-36.0); Mean Corpuscular Volume 83.9 fL (80.0-100.0); Mean Platelet Volume 11.1 fL (9.4-12.4); Platelet Count 157 K/uL (130-400); RDW Standard Deviation 49.1 fL (36.4-46.3); Red Blood Count 4.46 M/uL (4.70-6.10); White Blood Count 14.21 K/ul (4.8-10.8)
[2023-02-27] MEDS ORDERED: VANCOMYCIN HCL 1,250 MG in SODIUM CHLORIDE 0.9% 250 ML IV ONE (15:45)
[2023-02-27] MEDS ORDERED: PIPERACILLIN/TAZOBACTAM 4.5 GM in DEXTROSE 5% MINI-B 100 ML IV ONE (15:45)
--- NOTE | 2023-02-27 15:52 | Cardiology Consultation ---
Date of Consultation February 27, 2023 Assessment & Plan (1) Left-sided chest wall pain: (2) Chronic diastolic heart failure: (3) Paroxysmal atrial fibrillation: (4) CAD (coronary artery disease): Plan Patient admitted to [facility] after fall with musculoskeletal left shoulder and left rib pain. No acute fractures noted. While in the ER, patient reported that this chest pain was similar in nature to prior anginal equivalent for which he takes SL nitro PRN. He was given 1 SL Nitro with relief of his symptoms in the ER. EKG was not done at the time of chest pain, but several hours later. Poor tracing with significant artifact limits review. Repeat requested At time of evaluation, patient remained chest pain free. HS troponin was not done, but would likely be chronically elevated given known underlying ischemic heart disease. Recommend ongoing medical management for chronic CAD/angina. Continue ASA, statin, carvedilol, isosorbide, furosemide, losartan and sotalol. Repeat EKG and HS troponin IF he has more chest pain consistent with angina. Otherwise, would not recommend further cardiac testing at this time. He remains in NSR. Continue sotalol. He is not anticoagulated due to history of GI bleed. Case discussed with Dr. Haines I spent a total of 50 minutes on the date of service in preparation, delivery, and documentation of the care provided to this patient, excluding any time spent in the performance of separately billed services. Ramandeep Santana PA-C Department of Cardiology, [facility] This chart was completed in part utilizing Speech Voice Recognition Software. Grammatical errors, random word insertions, pronoun errors, and incomplete sentences are an occasional consequence of this system due to software limitations, ambient noise, and hardware issues. Any formal questions or concerns about the content, text, or information contained within the body of this dictation should be directly addressed to the provider for clarification. Supervising Physician Co-Signing Physician Notes 87-year-old male presents to the emergency department after mechanical fall. Reports chest discomfort involving his bilateral lower ribs. Discomfort positional and reproducible with palpation. Sleeping comfortably upon my arrival to bedside. Currently denies any pain or discomfort. Edema well- controlled. Function capacity limited, however stable at home. PE: VSS with borderline hypotension. General: NAD, AAO x3. Heart: Regular rhythm. Normal S1S2. No murmur. Pulmonary: Diminished breath sounds at the bases bilateral. No rales, rhonchi, wheeze. Extremities: No edema. A/P: Agree with above PA-C history, physical exam, assessment and plan. Patient admitted with mechanical fall. Atypical chest discomfort, likely musculoskeletal noted. High-sensitivity troponins mildly elevated, however chronic and unchanged. No ischemic ECG changes. Echocardiogram pending. Patient appears mildly volume depleted. Agree with gentle hydration. Continue sotalol,, low-dose aspirin, atorvastatin and Imdur. Hold a.m. Lasix pending reassessment. History of Present Illness Reason for Consultation: Chest pain, atypical; History of CAD Requesting Physician: Dr. Ly Attending Physician: Dr. Haines History of Present Illness Patient is an 87 year old male, known to [facility] Cardiology, Dr. Haines. Patient brought to [facility] after a fall while transferring to his recliner chair earlier this morning. Landed on his left shoulder and left side rib cage. He was able to crawl across the floor to his medical alert button and summon help. Due to left shoulder pain, rib pain, he was brought to the ER for evaluation. Upon arrival to the ER, chest CT was completed which was unremarkable for acute fracture or pathology. It did show a very large hiatal hernia which is known. During evaluation, patient admitted to chest pain, which he felt was consistent with prior angina. He was given one dose of SL nitro per patient request and his symptoms resolved. Cardiology consult was requested by the patient. At time of evaluation, patient denied recurrent chest pain. Resting comfortably but does admit to left shoulder and lower left sided rib pain with movement. No SOB. No orthopnea, PND or edema. He was mildly hypotensive after nitro tablet but BP improved. no dizziness. History includes: 1. History of HFpEF 2. Paroxysmal atrial fibrillation maintained in sinus rhythm with sotalol, anticoagulation discontinued as above. 3. Prior palpitations attributed to sensed ventricular ectopy. 4. Chronic coronary artery disease, history of non-ST elevation [place] 2011 s/p drug-eluting stent implantation to the left anterior descending artery. 5. Dyslipidemia 6. Hypertension 7. CKD stage 3 8. COPD without acute exacerbation 9. GERD Allergies Allergy/AdvReac Type Severity Reaction Status Date / Time atenolol Allergy Unknown PT WAS Verified 02/26/23 19:53 TOLD NEVER TO TAKE AGAIN candesartan [From Atacand] AdvReac Intermediate HYPERKALEMI Verified 02/26/23 19:53 A lisinopril AdvReac Intermediate INCREASED Verified 02/26/23 19:53 CREATININE/HYPOTENSION Home Medications Medication Instructions Recorded Confirmed Type albuterol sulfate 90 mcg/actuation 2 inh inhalation .Q4-6HR PRN 06/04/18 02/26/23 History breath activated powder inhaler Shortness Of Breath Or Wheezing aspirin 81 mg tablet,delayed 81 mg PO QAM 06/04/18 02/26/23 History release atorvastatin 80 mg tablet 80 mg PO QAM 06/04/18 02/26/23 History furosemide 40 mg tablet 60 mg PO QAM 06/04/18 02/26/23 History multivitamin-ferrous 1 tab PO DAILY 09/03/18 02/26/23 History fumarate-folic acid 18 mg-400 mcg tablet (Centrum) carvedilol 12.5 mg tablet 12.5 mg PO AMHS 06/13/22 02/26/23 History glipizide 2.5 mg tablet, extended 2.5 mg PO QAM 06/13/22 02/26/23 History release 24 hr isosorbide mononitrate 60 mg 60 mg PO QAM 06/13/22 02/26/23 History tablet,extended release 24 hr linagliptin 5 mg tablet (Tradjenta) 5 mg PO QAM 06/13/22 02/26/23 History nitroglycerin 0.4 mg sublingual 0.4 mg sublingual DIRECTED PRN 06/13/22 02/26/23 History tablet Chest Pain prednisone 5 mg tablet 5 - 15 mg PO QAM 06/13/22 02/27/23 History sotalol 80 mg tablet 40 mg PO BID 06/13/22 02/26/23 History terazosin 2 mg capsule 2 mg PO HS 06/13/22 02/26/23 History docusate sodium 50 mg capsule 50 mg PO BID PRN constipation #60 07/23/22 Rx (Colace Clear) caps coenzyme Q10 400 mg capsule 400 mg PO DAILY 02/26/23 02/26/23 History empagliflozin 10 mg tablet 10 mg PO QAM 02/26/23 02/26/23 History (Jardiance) losartan 50 mg tablet 50 mg PO QAM 02/26/23 02/26/23 History Patient History Medical History Atrial fibrillation BPH (benign prostatic hyperplasia) CAD (coronary artery disease) 2012 - MARY to LAD Cardiac murmur Chronic back pain Chronic renal disease, stage III FOLLOWS W/ DR. 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) Myocardial Infarction 2011 Non-ST elevation (NSTEMI) myocardial infarction Osteoarthritis Scoliosis Seronegative arthritis Surgical History History of cataract surgery RIGHT History of heart artery stent History of tooth extraction Family History Mother Coronary heart disease, Onset Age: 63 of [place] CHF (congestive heart failure) Myocardial infarction Father CHF (congestive heart failure) Pneumonia Sister Coronary heart disease History of CABG Rheumatic heart disease Social History Smoking Status: Never smoker Second Hand Exposure: No; Do You Dip or Chew Tobacco: No; Tobacco Cessation Education Requested by Patient: No Hx Alcohol Use: No Hx Substance Use: No Preferred Language: Norwegian Communication Ability: Effective 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: No Beliefs That Will Affect Care: None marital status: / Current Living Situation: Alone Other Information That Helps Us Care for You: No Feels Safe at Home: Yes Safety Concerns: Feels Safe At This Time Assistive Devices: Walker Review of Systems Review of Systems: All systems reviewed & are unremarkable except as noted in HPI & below Physical Exam Constitutional: WD/WN, vitals as above no acute distress Neck: trachea midline, no thyromegaly + thick neck Respiratory: normal respiratory effort Auscultation: + diminished lung sounds (but clear ) Cardiovascular: Rate/Rhythm: regular rate and regular rhythm Heart Sounds: no murmur Vessels: no JVD Extremities: + edema (1+ pretibial edema) Gastrointestinal (Abdomen): normal bowel sounds, soft, nontender, no hepatosplenomegaly Skin: no rashes, warm and dry Results & Data Vital Signs (Past 12 Hours) Vital Signs Temp Pulse Pulse Pulse Resp BP BP 02/27/23 15:32 36.6 C 74 20 95/51 L 02/27/23 15:20 77 19 92/45 L 02/27/23 15:10 71/33 L 02/27/23 15:01 75 18 75/43 L 02/27/23 14:45 80 23 90/48 L 02/27/23 14:00 81 18 83/55 L 02/27/23 13:49 84 15 78/52 L 02/27/23 13:32 89 22 70/42 L 02/27/23 13:31 87 22 58/36 L 02/27/23 13:10 83 14 96/61 L 02/27/23 09:30 92 H 21 02/27/23 09:15 82 23 02/27/23 09:03 74 02/27/23 07:54 37.0 C 73 22 02/27/23 06:00 75 18 BP Pulse Ox O2 Del Method 02/27/23 15:32 93 Room Air 02/27/23 15:20 93 Room Air 02/27/23 15:10 91 Room Air 02/27/23 15:01 94 Room Air 02/27/23 14:45 92 Room Air 02/27/23 14:00 96 Room Air 02/27/23 13:49 93 Room Air 02/27/23 13:32 92 Room Air 02/27/23 13:31 91 Room Air 02/27/23 13:10 96 Room Air 02/27/23 09:30 02/27/23 09:15 02/27/23 09:03 02/27/23 07:54 145/74 H 99 Room Air 02/27/23 06:00 113/67 96 Room Air Laboratory Results Cardiac Enzymes 02/26/23 Range/Units 21:45 AST 22 (13-39) U/L CBC 02/26/23 02/27/23 02/27/23 Range/Units 21:45 04:07 15:17 WBC 15.29 H 11.27 H 14.21 H (4.8-10.8) K/ul RBC 4.91 4.58 L 4.46 L (4.70-6.10) M/uL Hgb 13.4 L 12.4 L 12.0 L (14.0-18.0) g/dl Hct 41.4 L 38.7 L 37.4 L (42.0-52.0) % Plt Count 204 169 157 (130-400) K/uL Neut # (Auto) 12.05 H 8.35 H (1.40-6.50) K/uL Lymph # (Auto) 1.55 1.50 (1.20-3.40) K/uL Mathews # (Auto) 1.38 H 1.19 H (0.11-0.59) K/uL Eos # (Auto) 0.01 0.02 (0.00-0.50) K/uL Baso # (Auto) 0.03 0.03 (0.00-0.20) K/uL Comprehensive Metabolic Panel 02/26/23 02/27/23 Range/Units 21:45 04:07 Sodium 136 135 L (136-145) mmol/L Potassium 4.1 3.7 (3.5-5.1) mmol/L Chloride 102 104 (98-107) mmol/L Carbon Dioxide 23 25 (21-32) mmol/L BUN 38 H 36 H (6-23) mg/dl Creatinine 0.66 0.62 (0.6-1.4) mg/dl Glucose 218 H 240 H (70-99(Fasting)) mg/dl Calcium 8.7 8.5 L (8.6-10.3) mg/dl AST 22 (13-39) U/L ALT 25 (7-52) U/L Alkaline Phosphatase 51 (34-104) U/L Total Protein 5.8 L (6.0-8.3) gm/dl Albumin 3.2 L (3.4-5.0) gm/dl Intake and Output 02/27/23 02/27/23 02/27/23 06:59 14:59 22:59 Intake Total 250 / 250 Balance 250 / 250 Intake: IV 250 / 250 Lactated Ringer's 250 ml @ 999 250 / 250 mls/hr IV .Q16M ONE Rx#: [id number] Other: Weight 59.3 kg Diagnostic Findings EKG: Poor tracing with significant artifact - NSR vs atrial fibrillation Telemetry reviewed: NSR without arrhythmias Chest CT 02/26/23 19:48 Exam(s): CT CHEST Without Contrast EXAM: CT Chest Without Intravenous Contrast CLINICAL HISTORY: Reason for exam: trauma; left-sided chest wall pain. TECHNIQUE: Axial computed tomography images of the chest without intravenous contrast. CTDI is 14.55 mGy and DLP is 484.54 mGy-cm. Automated exposure control was utilized for the study. A dose lowering technique was utilized adhering to the principles of ALARA. COMPARISON: No relevant prior studies available. FINDINGS: Lungs: Increased AP diameter of the chest and flattening of the diaphragms, concerning for COPD. Atelectasis at the LEFT lung base. No mass. Pleural space: Unremarkable. No pneumothorax. No significant effusion. Heart: Cardiomegaly. No significant pericardial effusion. No significant coronary artery calcifications. Mediastinum: Large hiatal hernia with the entire stomach in a retrocardiac position. Bones/joints: Degenerative changes of the spine. No acute fracture. No dislocation. Soft tissues: Mild gynecomastia. Vasculature: Atherosclerotic changes of the aorta. No thoracic aortic aneurysm. Lymph nodes: Unremarkable. No enlarged lymph nodes. IMPRESSION: 1. Large hiatal hernia with the entire stomach in a retrocardiac position. 2. Increased AP diameter of the chest and flattening of the diaphragms, concerning for COPD. Electronically signed by: Chapincito Loera MD 02/26/23 20:38 PM July 04, 2022 TTE Interpretation Summary ([facility], Dr. Higginbotham): Moderate concentric LVH. No regional WMA's. Normal LV systolic function. EF 60-65%. Normal RV size and function. Mild mitral regurgitation. Medications Administered Current Inpatient Medications Acetaminophen (Acetaminophen 325 Mg Tab) 650 mg PO Q6H [facility] Stop: 03/29/23 14:29 Albuterol (Albuterol Hfa 8 Gm Inhaler) 2 puffs INH Q4H PRN PRN Reason: Shortness Of Breath Or Wheezin Stop: 03/29/23 00:18 Aspirin (Aspirin 81 Mg Ectab) 81 mg PO QAM [facility] Stop: 03/29/23 08:59 Last Admin: 02/27/23 11:08 Dose: 81 mg Atorvastatin Calcium (Atorvastatin 40 Mg Tab) 80 mg PO QAM [facility] Stop: 03/29/23 08:59 Last Admin: 02/27/23 11:08 Dose: 80 mg Carvedilol (Carvedilol 12.5 Mg Tab) 12.5 mg PO AMHS [facility] Stop: 03/29/23 08:59 Last Admin: 02/27/23 11:08 Dose: 12.5 mg Dextrose (Dextrose 50% 50 Ml Syringe) 25 - 50 ml IV UD PRN; Protocol PRN Reason: Hypoglycemia Protocol Stop: 03/29/23 00:07 Docusate Sodium (Docusate Sodium Syrup 100 Mg/10 Ml Udc) 50 mg PO BID PRN PRN Reason: constipation Stop: 03/29/23 00:26 Furosemide (Furosemide 20 Mg Tab) 60 mg PO QAM [facility] Stop: 03/29/23 08:59 Last Admin: 02/27/23 11:07 Dose: 60 mg Glucagon (Glucagon For Inj 1 Mg Vial) 1 mg SQ UD PRN; Protocol PRN Reason: Hypoglycemia Protocol Stop: 03/29/23 00:07 Glucose (Glucose 10 Tab/Tube) 4 - 8 tab PO UD PRN; Protocol PRN Reason: Hypoglycemia Treatment Stop: 03/29/23 00:07 Glucose (Glucose 40% Gel 15 Gm Tube) 15 - 30 gm PO UD PRN; Protocol PRN Reason: Hypoglycemia Protocol Stop: 03/29/23 00:07 Heparin Sodium (Porcine) (Heparin Sod 5,000 Unit/0.5 Ml Vial) 5,000 units SQ Q12 [facility] Stop: 03/29/23 08:59 Last Admin: 02/27/23 11:05 Dose: 5,000 units Lactated Ringer's (Lr) 1,000 mls @ 125 mls/hr IV .Q8H [facility] Stop: 02/27/23 20:28 Last Admin: 02/27/23 15:00 Dose: 125 mls/hr Vancomycin HCl 1,250 mg/ (Sodium Chloride) 275 mls @ 200 mls/hr IV 1545 ONE Stop: 02/27/23 17:07 Piperacillin Sod/Tazobactam (Sod 4.5 gm/ Dextrose) 100 mls @ 200 mls/hr IV NOW ONE; Protocol Stop: 02/27/23 16:14 Piperacillin Sod/Tazobactam (Sod 4.5 gm/ Dextrose) 100 mls @ 25 mls/hr IV Q8H [facility]; Protocol Stop: 03/01/23 21:59 Insulin Aspart (Insulin Aspart Per Unit Charge) 0 units SC ACHS [facility] Stop: 03/29/23 07:29 Last Admin: 02/27/23 13:38 Dose: Not Given Isosorbide Mononitrate (Isosorbide Mathews Extended Rel 60 Mg Tabcr) 60 mg PO QAM [facility] Stop: 03/29/23 08:59 Last Admin: 02/27/23 11:07 Dose: 60 mg Losartan Potassium (Losartan Potassium 50 Mg Tab) 50 mg PO QAM [facility] Stop: 03/29/23 08:59 Last Admin: 02/27/23 11:07 Dose: 50 mg Miconazole Nitrate (Miconazole Nitrate 2% Cr 30 Gm Tube) 1 appln EXT BID [facility] Stop: 03/29/23 20:59 Miscellaneous (Carbohydrates For Hypoglycemia ) 15 - 30 gm PO UD PRN PRN Reason: Hypoglycemia Protocol Stop: 03/29/23 00:07 Miscellaneous Information (Vancomycin Consult Active) 1 each N/A UD PRN PRN Reason: Consult Stop: 03/29/23 15:17 Multivitamins/Minerals (Cerovite Adv Formula Tab) 1 tab PO DAILY [facility] Stop: 03/29/23 08:59 Last Admin: 02/27/23 11:07 Dose: 1 tab Mupirocin (Mupirocin 2% Oint 22 Gm Tube) 1 appln EXT QID [facility] Stop: 03/29/23 16:59 Nitroglycerin (Nitroglycerin Sl 0.4 Mg/Tab Tab) 0.4 mg SL Q5M PRN PRN Reason: Chest Pain Stop: 03/29/23 00:07 Polyethylene Glycol (Polyethylene (Miralax) 17 Gm Pack) 17 gm PO DAILY PRN PRN Reason: Constipation Stop: 03/29/23 00:07 Prednisone (Prednisone 10 Mg Tablet) 10 mg PO QAM [facility] Stop: 03/29/23 08:59 Last Admin: 02/27/23 11:06 Dose: 10 mg Sotalol HCl (Sotalol Hcl 80 Mg Tab) 40 mg PO BID [facility] Stop: 03/29/23 08:59 Last Admin: 02/27/23 11:07 Dose: 40 mg Terazosin HCl (Terazosin Hcl 1 Mg Cap) 2 mg PO HS [facility] Stop: 03/29/23 20:59 Trolamine Salicylate (Trolamine Salicylate 10% Crm 255 Appln/85 Gm Tube) 1 appln EXT Q4H PRN PRN Reason: pain along ribs Stop: 03/29/23 09:19 Last Admin: 02/27/23 11:05 Dose: 1 appln (4) CAD (coronary artery disease) Associated angina: with stable angina Coronary Disease-Associated Artery/Lesion type: [place] artery [place] vs. transplanted heart: [place] heart Qualified Code(s): I25.118 - Atherosclerotic heart disease of [place] coronary artery with other forms of angina pectoris
[2023-02-27 15:55] LABS: BUN Creatinine Ratio 52.5 (10-20); Calcium 8.6 mg/dl (8.6-10.3); Creatinine Clr Calc Pharmacy 70.2 ml/min; Est GFR (African American) 103.3 ml/min; Est GFR (Non-African American) 89.2 ml/min; Potassium 3.7 mmol/L (3.5-5.1)
--- NOTE | 2023-02-27 16:09 | Communication Note ---
Date of Service: February 27, 2023 Patient hypotensive in ED. Suspect secondary to nitro given for chest pain IV bolus ongoing Patient remains AOx3, denies any lightheadness or other concerns. Holding antihypertensives in interim--resume as able Follow Trop BNP 355--discontinue IVF as able (limit 1L), monitor resp status
--- NOTE | 2023-02-27 16:28 | Electrocardiogram Report ---
Test Reason : Blood Pressure : / mmHG Vent. Rate : 085 BPM Atrial Rate : 085 BPM P-R Int : 238 ms QRS Dur : 090 ms QT Int : 406 ms P-R-T Axes : 057 -42 144 degrees QTc Int : 483 ms Probably Sinus rhythm with 1st degree A-V block with Premature supraventricular complexes Left axis deviation Minimal voltage criteria for LVH, may be normal variant Prolonged QT Abnormal ECG When compared with ECG of 06-JUL-2022 05:57, [place] interval has increased QRS axis Shifted left ST now depressed in Inferior leads Confirmed by Tree Quiñonez ([id number]) on 02/27/2023 4:28:29 PM Referred By: REFERRED SELF Confirmed By:Herminio Quiñonez
[2023-02-27] MEDS: ACETAMINOPHEN 325 MG TAB PO SCH ×2 (17:05→22:25)
[2023-02-27] MEDS: DOCUSATE SODIUM SYRUP 100 MG/10 ML UDC PO PRN ×2 (17:05→22:20)
[2023-02-27] MEDS: MUPIROCIN 2% OINT 22 GM TUBE EXT SCH ×2 (18:24→22:23)
--- NOTE | 2023-02-27 20:29 | Pharmacy Report ---
Pharmacy Vanc AUC Short Note - Date of Service February 27, 2023 - Assessment & Plan Assessment 87 year old M started on vancomycin/zosyn empirically. Patient admitted s/p fall, pmhx significant for DM2, CKD III, CAD, htn. Per notes, patient with multiple skin tears/stage II-III decubitus ulcers sacral region, penile ulceration - urology following. Day #1 of antimicrobial therapy. Plan Vancomycin * AUC/BREE is the preferred PK/PD target for vancomycin * AUC guided dosing is effective and associated with decreased risk of nephrotoxicity compared to traditional trough targets * Patient given vancomycin 1250 mg iv x 1 loading dose, and will be continued on 750 mg iv q 12 hours * This dosing is estimated to achieve goal AUC/BREE 400-600 * Plan to check level in next 48 hours if vancomycin continued Pharmacy will continue to follow and will adjust dose/frequency as necessary. Thank you.
[2023-02-27] MEDS: PIPERACILLIN/TAZOBACTAM 4.5 GM in DEXTROSE 5% MINI-B 100 ML IV SCH (22:20)
[2023-02-27] MEDS: TERAZOSIN HCL 1 MG CAP PO SCH (22:21)
[2023-02-27] MEDS: MICONAZOLE NITRATE 2% CR 30 GM TUBE EXT SCH (22:26)
[2023-02-28] MEDS: ACETAMINOPHEN 325 MG TAB PO SCH ×4 (03:31→21:42)
[2023-02-28] MEDS: VANCOMYCIN HCL 750 MG in SODIUM CHLORIDE 0.9% 250 ML IV SCH ×2 (05:21→17:08)
[2023-02-28] MEDS: PIPERACILLIN/TAZOBACTAM 4.5 GM in DEXTROSE 5% MINI-B 100 ML IV SCH ×3 (06:18→21:47)
[2023-02-28 06:28] LABS: Hematocrit (blood only) 34.2 % (42.0-52.0); Hemoglobin 10.8 g/dl (14.0-18.0); Mean Corpuscular Hemoglobin 27.3 pg (25.0-34.0); Mean Corpuscular Hgb Conc 31.6 g/dL (32.0-36.0); Mean Corpuscular Volume 86.4 fL (80.0-100.0); Mean Platelet Volume 10.7 fL (9.4-12.4); Platelet Count 149 K/uL (130-400); RDW Coefficient of Variation 16.1 % (11.5-14.5); RDW Standard Deviation 50.4 fL (36.4-46.3); Red Blood Count 3.96 M/uL (4.70-6.10); White Blood Count 10.96 K/ul (4.8-10.8)
[2023-02-28 06:50] LABS: BUN Creatinine Ratio 46.8 (10-20); Calcium 7.8 mg/dl (8.6-10.3); Creatinine Clr Calc Pharmacy 70.1 ml/min; Est GFR (African American) 102.7 ml/min; Est GFR (Non-African American) 88.6 ml/min; Magnesium 1.8 mg/dl (1.7-2.4); Phosphorus 3.9 mg/dl (2.5-4.9); Potassium 3.2 mmol/L (3.5-5.1)
[2023-02-28] MEDS: DOCUSATE SODIUM SYRUP 100 MG/10 ML UDC PO PRN ×2 (08:41→21:46)
[2023-02-28] MEDS: SOTALOL HCL 80 MG TAB PO SCH ×2 (08:42→21:48)
[2023-02-28] MEDS: ASPIRIN 81 MG ECTAB PO SCH (08:42)
[2023-02-28] MEDS: CEROVITE ADV FORMULA TAB PO SCH (08:43)
[2023-02-28] MEDS: ATORVASTATIN 40 MG TAB PO SCH (08:43)
[2023-02-28] MEDS: MUPIROCIN 2% OINT 22 GM TUBE EXT SCH ×4 (08:43→21:55)
[2023-02-28] MEDS: TROLAMINE SALICYLATE 10% CRM 255 APPLN/85 GM TUBE EXT PRN ×2 (08:43→21:45)
[2023-02-28] MEDS: predniSONE 10 MG TABLET PO SCH (08:43)
[2023-02-28] MEDS: HEPARIN SOD 5,000 UNIT/0.5 ML VIAL SQ SCH ×2 (08:44→21:45)
[2023-02-28] MEDS: INSULIN ASPART PER UNIT CHARGE SC SCH ×4 (09:20→21:43)
[2023-02-28] MEDS ORDERED: POTASSIUM CHLORIDE CRTAB 20 MEQ TABCR PO ONE (11:03)
--- NOTE | 2023-02-28 11:08 | Electrocardiogram Report ---
Test Reason : Blood Pressure : / mmHG Vent. Rate : 074 BPM Atrial Rate : 074 BPM P-R Int : 200 ms QRS Dur : 102 ms QT Int : 420 ms P-R-T Axes : 051 -24 114 degrees QTc Int : 466 ms Sinus rhythm with Premature supraventricular complexes Minimal voltage criteria for LVH, may be normal variant Nonspecific T wave abnormality Prolonged QT Abnormal ECG When compared with ECG of 27-FEB-2023 13:08, [place] interval has decreased ST no longer depressed in Inferior leads T wave inversion no longer evident in Inferior leads T wave inversion now evident in Anterior leads Confirmed by Tree Quiñonez ([id number]) on 02/28/2023 11:08:37 AM Referred By: REFERRED SELF Confirmed By:Herminio Quiñonez
[2023-02-28] MEDS: MICONAZOLE NITRATE 2% CR 30 GM TUBE EXT SCH ×2 (11:17→21:45)
--- NOTE | 2023-02-28 13:16 | Cardiology Progress Note ---
Date of Service February 28, 2023 Assessment & Plan (1) Left-sided chest wall pain: (2) Chronic diastolic heart failure: (3) Paroxysmal atrial fibrillation: (4) CAD (coronary artery disease): Plan Patient admitted to [facility] after fall with musculoskeletal left shoulder and left rib pain. No acute fractures noted. While in the ER, patient reported that this chest pain was similar in nature to prior anginal equivalent for which he takes SL nitro PRN. He was given 1 SL Nitro with relief of his symptoms in the ER. No acute EKG changes since admission No recurrent chest pain Echo with preserved LVEF, no wall motion abnormalities. Stable findings. Recommend ongoing medical management for chronic CAD/angina. Patient was mildly hypotensive and hypovolemic on arrival. Admitted to poor PO intake of hydration and nutrition over the last few days. Treated with gentle hydration. Furosemide on hold. Potassium supplemented. Would recommend reducing furosemide to 40 mg daily on discharge (previously on 60 mg) Continue ASA, statin, carvedilol, isosorbide, losartan and sotalol. He remains in NSR. Continue sotalol. He is not anticoagulated due to history of GI bleed. Stable for discharge from cardiac perspective. Will sign off. Please notify professional athletes coach provider with additional questions or concerns. Case discussed with Dr. Haines I spent a total of 30 minutes on the date of service in preparation, delivery, and documentation of the care provided to this patient, excluding any time spent in the performance of separately billed services. Ramandeep Santana PA-C Department of Cardiology, [facility] This chart was completed in part utilizing Speech Voice Recognition Software. Grammatical errors, random word insertions, pronoun errors, and incomplete sentences are an occasional consequence of this system due to software limitations, ambient noise, and hardware issues. Any formal questions or concerns about the content, text, or information contained within the body of this dictation should be directly addressed to the provider for clarification. Admission and Anticipated Discharge Date Admission Date: February 26, 2023 Supervising Physician Co-Signing Physician Notes 87-year-old male presents to the emergency department after mechanical fall. Volume depleted on admission. Treated with gentle IV hydration. Furosemide on hold. Reproducible, musculoskeletal chest discomfort has resolved. Telemetry reveals sinus rhythm. Edema well-controlled. PE: VSS with borderline hypotension. General: NAD, AAO x3. Heart: Regular rhythm. Normal S1S2. No murmur. Pulmonary: Diminished breath sounds at the bases bilateral. No rales, rhonchi, wheeze. Extremities: No edema. A/P: Agree with above PAJhoana history, physical exam, assessment and plan. Patient admitted with mechanical fall. Atypical chest discomfort, likely musculoskeletal noted. High-sensitivity troponins mildly elevated, however chronic and unchanged. No ischemic ECG changes. Stable echocardiogram. Mild volume depletion improved with IV hydration and withholding diuretic therapy. Reduce furosemide to 40 mg daily (previous dose 60 mg daily) at discharge. Continue sotalol, low-dose aspirin, atorvastatin and Imdur. Outpatient cardiology follow-up as scheduled. Subjective Patient resting in bed comfortably. Denies recurrent chest pain. Left sided rib pain noted intermittently with movement. Hoping to go home. Denies dizziness. No SOB. Review of Systems Review of Systems: All systems reviewed & are unremarkable except as noted in HPI & below Physical Exam Constitutional: WD/WN, vitals as above no acute distress Neck: trachea midline, no thyromegaly + thick neck Respiratory: normal respiratory effort Auscultation: + diminished lung sounds (but clear ) Cardiovascular: Rate/Rhythm: regular rate and regular rhythm Heart Sounds: no murmur Vessels: no JVD Extremities: no edema Gastrointestinal (Abdomen): normal bowel sounds, soft, nontender, no hepatosplenomegaly Skin: no rashes, warm and dry Results & Data Vital Signs (Past 12 Hours) Vital Signs Temp Pulse Pulse Pulse Resp BP BP 02/28/23 11:34 02/28/23 11:28 36.4 C L 78 18 116/68 02/28/23 08:42 74 02/28/23 07:54 36.3 C L 58 L 17 144/79 H 02/28/23 07:46 56 L 02/28/23 03:55 36.7 C 62 20 116/70 02/28/23 02:42 Pulse Ox O2 Del Method O2 Flow Rate FiO2 02/28/23 11:34 Nasal Cannula 2 02/28/23 11:28 97 Nasal Cannula 2 02/28/23 08:42 02/28/23 07:54 99 Oxymask 2 02/28/23 07:46 02/28/23 03:55 98 Oxymask 2 02/28/23 02:42 Oxymask 2 Laboratory Results Cardiac Enzymes 02/27/23 02/27/23 02/28/23 Range/Units 15:17 20:29 00:33 Troponin I High Sens 111.0 H* 74.3 H* D 67.2 H* (0-20) pg/ml B-Natriuretic Peptide 355 H (0-100) pg/ml Coagulation 02/27/23 Range/Units 15:17 B-Natriuretic Peptide 355 H (0-100) pg/ml CBC 02/27/23 02/28/23 Range/Units 15:17 05:44 WBC 14.21 H 10.96 H (4.8-10.8) K/ul RBC 4.46 L 3.96 L (4.70-6.10) M/uL Hgb 12.0 L 10.8 L (14.0-18.0) g/dl Hct 37.4 L 34.2 L (42.0-52.0) % Plt Count 157 149 (130-400) K/uL Comprehensive Metabolic Panel 02/27/23 02/28/23 Range/Units 15:17 05:44 Sodium 137 138 (136-145) mmol/L Potassium 3.7 3.2 L (3.5-5.1) mmol/L Chloride 105 107 (98-107) mmol/L Carbon Dioxide 26 25 (21-32) mmol/L BUN 32 H 29 H (6-23) mg/dl Creatinine 0.61 0.62 (0.6-1.4) mg/dl Glucose 150 H 93 (70-99(Fasting)) mg/dl Calcium 8.6 7.8 L (8.6-10.3) mg/dl Intake and Output 02/27/23 02/28/23 02/28/23 22:59 06:59 14:59 Intake Total 775 / 2290 1515 / 2290 100 / 100 Output Total 250 / 250 Balance 525 / 2040 1515 / 2040 100 / 100 Intake: IV 1989 136 / 1989 100 / 100 Lactated Ringer's 1,000 ml @ 250 / 1250 1000 / 1250 125 mls/hr IV .Q8H [facility] Rx#: [id number] Piperacillin/Tazobactam 4.5 gm 100 / 200 100 / 200 100 / 100 In Dextrose 5% Mini-B 100 ml @ 25 mls/hr IV Q8H [facility] Rx#: [id number] Vancomycin HCl 750 mg In Sodium 275 / 540 265 / 540 Chloride 0.9% 250 ml @ 200 mls /hr IV Q12H [facility] Rx#:[id number] Oral 150 / 300 150 / 300 Output: Urine 250 / 250 Other: Weight 60.2 kg Diagnostic Findings Telemetry reviewed: NSR in the 60's. Sinus bradycardia in the 40-50 range at night Echocardiogram report reviewed dated 02/27/23: LVEF 65-70% Moderate concentric LVH LA is mildly dilated Mild AI Trace TR No pulm hypertension No significant change since prior study Medications Administered Current Inpatient Medications Acetaminophen (Acetaminophen 325 Mg Tab) 650 mg PO Q6H [facility] Stop: 03/29/23 14:29 Last Admin: 02/28/23 08:42 Dose: 650 mg Albuterol (Albuterol Hfa 8 Gm Inhaler) 2 puffs INH Q4H PRN PRN Reason: Shortness Of Breath Or Wheezin Stop: 03/29/23 00:18 Aspirin (Aspirin 81 Mg Ectab) 81 mg PO QAM [facility] Stop: 03/29/23 08:59 Last Admin: 02/28/23 08:42 Dose: 81 mg Atorvastatin Calcium (Atorvastatin 40 Mg Tab) 80 mg PO QAM [facility] Stop: 03/29/23 08:59 Last Admin: 02/28/23 08:43 Dose: 80 mg Carvedilol (Carvedilol 12.5 Mg Tab) 12.5 mg PO AMHS [facility] Stop: 03/29/23 08:59 Last Admin: 02/27/23 11:08 Dose: 12.5 mg Dextrose (Dextrose 50% 50 Ml Syringe) 25 - 50 ml IV UD PRN; Protocol PRN Reason: Hypoglycemia Protocol Stop: 03/29/23 00:07 Docusate Sodium (Docusate Sodium Syrup 100 Mg/10 Ml Udc) 50 mg PO BID PRN PRN Reason: constipation Stop: 03/29/23 00:26 Last Admin: 02/28/23 08:41 Dose: 50 mg Furosemide (Furosemide 20 Mg Tab) 60 mg PO QAM [facility] Stop: 03/29/23 08:59 Last Admin: 02/27/23 11:07 Dose: 60 mg Glucagon (Glucagon For Inj 1 Mg Vial) 1 mg SQ UD PRN; Protocol PRN Reason: Hypoglycemia Protocol Stop: 03/29/23 00:07 Glucose (Glucose 10 Tab/Tube) 4 - 8 tab PO UD PRN; Protocol PRN Reason: Hypoglycemia Treatment Stop: 03/29/23 00:07 Glucose (Glucose 40% Gel 15 Gm Tube) 15 - 30 gm PO UD PRN; Protocol PRN Reason: Hypoglycemia Protocol Stop: 03/29/23 00:07 Heparin Sodium (Porcine) (Heparin Sod 5,000 Unit/0.5 Ml Vial) 5,000 units SQ Q12 [facility] Stop: 03/29/23 08:59 Last Admin: 02/28/23 08:44 Dose: 5,000 units Piperacillin Sod/Tazobactam (Sod 4.5 gm/ Dextrose) 100 mls @ 25 mls/hr IV Q8H [facility]; Protocol Stop: 03/01/23 21:59 Last Infusion: 02/28/23 10:25 Dose: Infused Vancomycin HCl 750 mg/ Sodium (Chloride) 265 mls @ 200 mls/hr IV Q12H [facility] Stop: 03/02/23 03:59 Last Infusion: 02/28/23 06:46 Dose: Infused Insulin Aspart (Insulin Aspart Per Unit Charge) 0 units SC ACHS [facility] Stop: 03/29/23 07:29 Last Admin: 02/28/23 12:55 Dose: 5 units Isosorbide Mononitrate (Isosorbide Harrison Extended Rel 60 Mg Tabcr) 60 mg PO QAM [facility] Stop: 03/29/23 08:59 Last Admin: 02/27/23 11:07 Dose: 60 mg Losartan Potassium (Losartan Potassium 50 Mg Tab) 50 mg PO QAM [facility] Stop: 03/29/23 08:59 Last Admin: 02/27/23 11:07 Dose: 50 mg Miconazole Nitrate (Miconazole Nitrate 2% Cr 30 Gm Tube) 1 appln EXT BID [facility] Stop: 03/29/23 20:59 Last Admin: 02/28/23 11:17 Dose: 1 appln Miscellaneous (Carbohydrates For Hypoglycemia ) 15 - 30 gm PO UD PRN PRN Reason: Hypoglycemia Protocol Stop: 03/29/23 00:07 Miscellaneous Information (Vancomycin Consult Active) 1 each N/A UD PRN PRN Reason: Consult Stop: 03/29/23 15:17 Multivitamins/Minerals (Cerovite Adv Formula Tab) 1 tab PO DAILY [facility] Stop: 03/29/23 08:59 Last Admin: 02/28/23 08:43 Dose: 1 tab Mupirocin (Mupirocin 2% Oint 22 Gm Tube) 1 appln EXT QID [facility] Stop: 03/29/23 16:59 Last Admin: 02/28/23 08:43 Dose: 1 appln Nitroglycerin (Nitroglycerin Sl 0.4 Mg/Tab Tab) 0.4 mg SL Q5M PRN PRN Reason: Chest Pain Stop: 03/29/23 00:07 Polyethylene Glycol (Polyethylene (Miralax) 17 Gm Pack) 17 gm PO DAILY PRN PRN Reason: Constipation Stop: 03/29/23 00:07 Prednisone (Prednisone 10 Mg Tablet) 10 mg PO QAM [facility] Stop: 03/29/23 08:59 Last Admin: 02/28/23 08:43 Dose: 10 mg Sotalol HCl (Sotalol Hcl 80 Mg Tab) 40 mg PO BID [facility] Stop: 03/29/23 08:59 Last Admin: 02/28/23 08:42 Dose: 40 mg Terazosin HCl (Terazosin Hcl 1 Mg Cap) 2 mg PO HS [facility] Stop: 03/29/23 20:59 Last Admin: 02/27/23 22:21 Dose: 2 mg Trolamine Salicylate (Trolamine Salicylate 10% Crm 255 Appln/85 Gm Tube) 1 appln EXT Q4H PRN PRN Reason: pain along ribs Stop: 03/29/23 09:19 Last Admin: 02/28/23 08:43 Dose: 1 appln (4) CAD (coronary artery disease) Associated angina: with stable angina Coronary Disease-Associated Artery/Lesion type: jackson artery [place] vs. transplanted heart: jackson heart Qualified Code(s): I25.118 - Atherosclerotic heart disease of jackson coronary artery with other forms of angina pectoris
--- NOTE | 2023-02-28 14:43 | Hospitalist Progress Note ---
Date of Service February 28, 2023 Assessment & Plan (1) Fall: Plan: Per previous attending notes with addendum: Mr Salvador is an 87-year-old male with past med history significant for type 2 diabetes, chronic kidney disease stage III, history of CAD, hypertension, paroxysmal atrial fibrillation, chronic diastolic CHF, chronic venous sufficiency of lower extremity, protein calorie malnutrition, inflammatory polyarthropathy, monoclonal paraproteinemia who lives alone at home and admitted due to fall. Patient with multiple concerns, including chest pain (non-cardiac) related to fall, left elbow pain, multiple skin tears. course complicated by atypical chest pain (occured at rest, relived with nitro) EKG obtained at bedside with concerning ST changes. BMP, CBC, Trop, CK, BNP, Lactate ordered to assess for concerns of AMI or rhabdo XR Left arm ordered given recent fall and pain with movement #Atypical Chest pain, c/w previous angina #Obstructive Coronary Artery Disease s/p MARY 2011 #History of AMI -EKG with questionable changes in V1-V3 -Follow up on troponin, lactate, cbc, bmp, bnp -s/p nitro, asa -Monitor on tele -Hold Imdur/ARB iso hypotension resume as able -LR 250 bolus + 80cc/hr rate 1 L -ECHO ordered for chest pain -Cardiology on consult 02/28 Acute coronary syndrome ruled out Echocardiogram: No wall motion normalities Neurologist also consulted, no further intervention at this point Imdur, losartan on hold, blood pressure on the lower side Monitor closely #Non-cardiac chest pain 2/2 fall #Left elbow pain -No fractures of ribs noted on CT -Imaging of Left elbow ordered: No acute fractures, soft tissue swelling Pain improving -PT/OT evaluation in progress #Mechanical fall #Ambulatory dysfunction CT head, CT cervical spine, CT chest no acute findings PT/OT evaluation in progress #Multiple skin tears #Skin maceration of left hip #Stage II-III decubitus ulcers sacral region Wound care consult Muprocin #Penile ulceration Consult urology Mupirocin in interim, does not appear infected miconazole cream to groin/scrotum #Paroxysmal A-fib Not on anticoagulation because of GI bleed On sotalol and Coreg and aspirin -Continue ASA -Continue sotalol -Hold coreg in interim due to relative hypotension #chronic heart failure with diastolic dysfunction recently Lasix dose increased to 60 mg daily by cardio but patient is taking only 40 mg Continue Lasix BNP ordered Cardiology on consult -Euvolemic #History of inflammatory polyarthritis On prednisone #CKD stage III crea 0.62 #Leukocytosis *downtrending No signs of infection at this point Discontinue antibiotics #History of monoclonal paraproteinemia Follows with heme-onc #Type 2 diabetes Hold home p.o. medications Sliding scale Will monitor DVT prophylaxis Heparin subcu Disposition PT/OT in progress Full code as per discussion with the patient on 02/26/2023 Admission and Anticipated Discharge Date Admission Date: February 26, 2023 Subjective Follow-up for status post fall, atypical chest pain, etc. Seen resting in bed, comfortable, watching TV, in good spirits States he feels that he is improving overall Chest pain mostly resolved Has some left elbow discomfort but also improving No other new symptoms Review of Systems Review of Systems: all noted and negative except for above Physical Exam Physical Exam: General- oriented x 3, not in distress, speaks in sentences with no effort or accessory muscle use Eyes- anicteric Neck- no JVD Lungs- clear breath sounds bilaterally, no rales/wheezes Heart- normal rate, regular rhythm; no murmurs No tenderness on the chest wall Abdomen- normal bowel sounds, nondistended, soft, nontender Extremities- no pretibial edema, no calf tenderness Left elbow-mild erythema and antecubital fossa, no tenderness, full range of motion Neuro- alert, oriented x 3; no gross focal neurologic deficits Skin- warm & dry Results & Data Results & Data Vital Signs (Past 12 Hours) Vital Signs Temp Pulse Pulse Pulse Resp BP BP 02/28/23 13:44 02/28/23 11:34 02/28/23 11:28 36.4 C L 78 18 116/68 02/28/23 08:42 74 02/28/23 07:54 36.3 C L 58 L 17 144/79 H 02/28/23 07:46 56 L 02/28/23 03:55 36.7 C 62 20 116/70 02/28/23 02:42 Pulse Ox Pulse Ox O2 Del Method O2 Del Method O2 Flow Rate FiO2 02/28/23 13:44 95 Room Air 02/28/23 11:34 Nasal Cannula 2 02/28/23 11:28 97 Nasal Cannula 2 02/28/23 08:42 11/29/23 07:54 99 Oxymask 2 02/28/23 07:46 02/28/23 03:55 98 Oxymask 2 02/28/23 02:42 Oxymask 2 all noted and reviewed including below
[2023-02-28] MEDS: EUCERIN CR 120 GM JAR EXT SCH (21:45)
[2023-02-28] MEDS: TERAZOSIN HCL 1 MG CAP PO SCH (21:48)
[2023-03-01] MEDS ORDERED: COUGH DROP (SUGAR FREE) LOZ 24 LOZ/1 BOX BUCCAL PRN (00:44)
[2023-03-01] MEDS: VANCOMYCIN HCL 750 MG in SODIUM CHLORIDE 0.9% 250 ML IV SCH (03:00)
[2023-03-01] MEDS: ACETAMINOPHEN 325 MG TAB PO SCH ×3 (03:03→14:07)
[2023-03-01] MEDS: PIPERACILLIN/TAZOBACTAM 4.5 GM in DEXTROSE 5% MINI-B 100 ML IV SCH (05:53)
[2023-03-01] MEDS ORDERED: MAGNESIUM HYDROXIDE SUSP 30 ML UDC PO PRN (08:46)
[2023-03-01] MEDS ORDERED: POLYETHYLENE (MIRALAX) 17 GM PACK PO SCH (09:00)
[2023-03-01] MEDS ORDERED: LIDOCAINE 5% 1 PATCH TD SCH (09:00)
[2023-03-01] MEDS: ATORVASTATIN 40 MG TAB PO SCH (09:18)
[2023-03-01] MEDS: HEPARIN SOD 5,000 UNIT/0.5 ML VIAL SQ SCH (09:18)
[2023-03-01] MEDS: predniSONE 10 MG TABLET PO SCH (09:18)
[2023-03-01] MEDS: ASPIRIN 81 MG ECTAB PO SCH (09:19)
[2023-03-01] MEDS: SOTALOL HCL 80 MG TAB PO SCH (09:19)
[2023-03-01] MEDS: MICONAZOLE NITRATE 2% CR 30 GM TUBE EXT SCH (09:19)
[2023-03-01] MEDS: CEROVITE ADV FORMULA TAB PO SCH (09:19)
[2023-03-01] MEDS: EUCERIN CR 120 GM JAR EXT SCH (09:20)
[2023-03-01] MEDS: MUPIROCIN 2% OINT 22 GM TUBE EXT SCH ×2 (09:20→14:06)
[2023-03-01] MEDS: INSULIN ASPART PER UNIT CHARGE SC SCH ×2 (10:36→14:06)
--- NOTE | 2023-03-01 12:54 | XRay Report ---
XR chest 1V portable HISTORY: 87 years-old Male left rib pain acute left-sided chest and rib pain COMPARISON: Chest CT 02/26/2023 TECHNIQUE: AP view the chest FINDINGS: Chronic silhouette is enlarged. Mild chronic interstitial coarsening. Mild bibasilar opacities. Large hiatal hernia redemonstrated. No pneumothorax or overt pulmonary edema. No large pleural effusion. C hronic appearing left-sided rib fractures. IMPRESSION: 1. Cardiomegaly without pulmonary edema. 2. Large hiatal hernia with bibasilar densities suggestive of atelectasis. ACT 112: Negative or not required by law. The above report was generated using voice recognition software. It may contain grammatical, syntax o r spelling errors. Electronically signed by: Jony Rain M.D. 03/01/2023 12:52 PM
--- NOTE | 2023-03-01 13:57 | Hospitalist Progress Note ---
Date of Service March 01, 2023 Assessment & Plan (1) Fall: Plan: Per previous attending notes with addendum: Mr Salvador is an 87-year-old male with past med history significant for type 2 diabetes, chronic kidney disease stage III, history of CAD, hypertension, paroxysmal atrial fibrillation, chronic diastolic CHF, chronic venous sufficiency of lower extremity, protein calorie malnutrition, inflammatory polyarthropathy, monoclonal paraproteinemia who lives alone at home and admitted due to fall. Patient with multiple concerns, including chest pain (non-cardiac) related to fall, left elbow pain, multiple skin tears. course complicated by atypical chest pain (occured at rest, relived with nitro) = #Atypical Chest pain, c/w previous angina #Obstructive Coronary Artery Disease s/p MARY 2011 #History of AMI -Held Imdur/ARB due to hypotension on admission -Patient given IV fluids next Acute coronary syndrome ruled out Echocardiogram:EF 65 to 70%, moderate concentric LVH [id number] Tank Crewman also consulted, no further intervention at this point DC losartan for now, lower Imdur to 30 mg daily to prevent hypotension Follow-up with PCP in 1 week #Left elbow pain, status post fall -No fractures of ribs noted on CT -Imaging of Left elbow ordered: No acute fractures, soft tissue swelling Pain improving -PT/OT evaluation: Recommend inpatient rehab, patient is declining adamantly, understand risks involved including recurrent falls, injuries, etc. -Continue Lidoderm patch, Tylenol [id number], distended spirometry at home #Mechanical fall #Ambulatory dysfunction CT head, CT cervical spine, CT chest no acute findings ogress #Multiple skin tears #Skin maceration of left hip #Stage II-III decubitus ulcers sacral region Wound care consult Discharge instructions: To left forearm/wrist and left buttocks, clean with saline, cover with Aquacel AG and cover with OPTi foam, change 4 times daily and as needed #Penile ulceration Consult urology, felt to be secondary to balanitis/balanoposthitis Recommend topical mupirocin and miconazole to foreskin/meatus Keep area clean and dry #Paroxysmal A-fib Not on anticoagulation because of GI bleed On sotalol and Coreg and aspirin -Continue ASA -Continue sotalol, Coreg #chronic heart failure with diastolic dysfunction recently Lasix dose increased to 60 mg daily by cardio but patient is taking only 40 mg [id number] Tank Crewman consulted, recommend decreasing Lasix to 40 mg daily from 60 mg daily Continue low-dose aspirin, sotalol, atorvastatin, Imdur Outpatient cardiology follow-up as scheduled #History of inflammatory polyarthritis On prednisone #CKD stage III crea 0.62 #Leukocytosis *downtrending No signs of infection at this point Discontinue antibiotics #History of monoclonal paraproteinemia Follows with heme-onc #Type 2 diabetes Resume usual medications DVT prophylaxis Heparin subcu Disposition Discharge to home with home health services Follow-up with PCP in 1 week Follow-up with hepatologist as scheduled Admission and Anticipated Discharge Date Admission Date: February 28, 2023 Subjective Follow-up for chest pain, status post fall, etc. Seen resting in bed, comfortable, sitting up, not in distress States he has some discomfort in the lower left rib area, where the bruise No shortness of breath, cough, hemoptysis States he is feeling stronger though In patient is very adamant to be discharged back to his home today Review of Systems Review of Systems: all noted and negative except for above Physical Exam Physical Exam: General- oriented x 3, not in distress, speaks in sentences with no effort or accessory muscle use Eyes- anicteric Neck- no JVD Lungs- clear breath sounds bilaterally, no rales or wheezing Bruise on the left lower rib area, mild tenderness, Heart- normal rate, regular rhythm; no murmurs Abdomen- normal bowel sounds, nondistended, soft, nontender Extremities- no pretibial edema, no calf tenderness Left elbow-edema improving Neuro- alert, oriented x 3; no gross focal neurologic deficits Skin- warm & dry Results & Data Results & Data Vital Signs (Past 12 Hours) Vital Signs Temp Pulse Pulse Pulse Resp BP BP 03/01/23 13:13 66 03/01/23 13:13 03/01/23 12:40 36.3 C L 78 16 123/72 03/01/23 07:35 36.4 C L 63 16 154/83 H 03/01/23 03:00 36.5 C 58 L 20 143/73 H Pulse Ox O2 Del Method 03/01/23 13:13 03/01/23 13:13 Room Air 03/01/23 12:40 95 Room Air 03/01/23 07:35 95 Room Air 03/01/23 03:00 93 Room Air all noted and reviewed including below
--- NOTE | 2023-03-01 18:39 | Discharge Summary ---
Discharge Summary Date of Service March 01, 2023 Admission HPI Per Admitting Provider 87-year-old male with past med significant for type 2 diabetes, chronic kidney disease stage III, history of CAD, hypertension, paroxysmal atrial fibrillation, chronic diastolic CHF, chronic venous sufficiency of lower extremity, protein calorie malnutrition, inflammatory polyarthropathy, monoclonal paraproteinemia who lives alone at home presents with fall. Patient does not walk. He states he sits in his rollator walker and pushes with the legs. He was sitting in his recliner. He was on the edge of the recliner when he slipped and fell and hit furniture. Has lower chest and abdominal pain. Has superficial cut on left forearm. Did not hit his head. No loss of consciousness. Was not able to get up. Currently resting comfortably and hemodynamically stable. No blurred visions. Have ringing in ears for some time. Having sore throat for last 1 week. Once in a while he gets difficulty swallowing. He is on a regular diet. Denies any fevers. Once in a while he gets short of breath. No chest pain before falling. No palpitations. No nausea. Normal bowel and bladder movements. He has some swelling in the legs. Saw cardiology last month and his Lasix increased to 60 mg but still taking 40 mg. Son in the room who helped with H&P. Past medical history. As mentioned above Past surgical history. Colonoscopy. Injection of sacroiliac joint. Sigmoidoscopy. Revision of ulnar nerve at elbow pain left arm and right arm. Social history. . Lives alone. No smoking. No alcohol. No drug use. Family history. Brother had heart disorder. Sister had CABG. Sister had rheumatic heart disease. Sister CVA. Mother had CVA and IA. Father had pneumonia. Principal Dx & Hospital Course #1 = Principal Diagnosis Updated Medication List Medication Instructions Recorded Confirmed Type albuterol sulfate 90 mcg/actuation 2 inh inhalation .Q4-6HR PRN 06/04/18 02/26/23 History breath activated powder inhaler Shortness Of Breath Or Wheezing aspirin 81 mg tablet,delayed 81 mg PO QAM 06/04/18 02/26/23 History release atorvastatin 80 mg tablet 80 mg PO QAM 06/04/18 02/26/23 History multivitamin-ferrous 1 tab PO DAILY 09/03/18 02/26/23 History fumarate-folic acid 18 mg-400 mcg tablet (Centrum) carvedilol 12.5 mg tablet 12.5 mg PO AMHS 06/13/22 02/26/23 History glipizide 2.5 mg tablet, extended 2.5 mg PO QAM 06/13/22 02/26/23 History release 24 hr linagliptin 5 mg tablet (Tradjenta) 5 mg PO QAM 06/13/22 02/26/23 History nitroglycerin 0.4 mg sublingual 0.4 mg sublingual DIRECTED PRN 06/13/22 02/26/23 History tablet Chest Pain prednisone 5 mg tablet 5 - 15 mg PO QAM 06/13/22 02/27/23 History sotalol 80 mg tablet 40 mg PO BID 06/13/22 02/26/23 History terazosin 2 mg capsule 2 mg PO HS 06/13/22 02/26/23 History docusate sodium 50 mg capsule 50 mg PO BID PRN constipation #60 07/23/22 02/26/23 Rx (Colace Clear) caps coenzyme Q10 400 mg capsule 400 mg PO DAILY 02/26/23 02/26/23 History empagliflozin 10 mg tablet 10 mg PO QAM 02/26/23 02/26/23 History (Jardiance) acetaminophen 500 mg capsule 1,000 mg (2 x 500 mg) PO TID PRN 03/01/23 Rx pain #30 caps furosemide 40 mg tablet (Lasix) 40 mg PO DAILY #30 tabs 03/01/23 Rx isosorbide mononitrate 30 mg 30 mg PO DAILY #30 tabs 03/01/23 Rx tablet,extended release 24 hr lidocaine 4 % topical patch 1 patch topical DAILY #5 ea 03/01/23 Rx miconazole nitrate 2 % topical 1 applic EXT BID #30 grams 03/01/23 Rx cream mupirocin 2 % topical ointment 1 applic EXT QID 7 days #50 grams 03/01/23 Rx Hospital Stay Data Consultations 02/26/23 23:11 ED Decision to Admit Stat 02/27/23 08:03 Consult Urology Routine 02/27/23 13:17 Consult Cardiology Routine Diagnostic Imagining Performed 02/26/23 19:41 CT cervical spine wo con Stat CT head/brain wo con Stat 02/26/23 19:48 CT chest without contrast [CT chest diagnostic wo con] Stat Discharge Instructions Given to Patient (Per Discharging Provider) PLEASE REFER TO YOUR NEW MEDICATION LIST AND FOLLOW INSTRUCTIONS CAREFULLY. YOUR NEW MEDICATIONS INCLUDE: Lidoderm patch-to be applied on the left lower rib, painful area Tylenol-1000 mg 3 times a day for 5 days; do not exceed 3000 mg/day Continue frequent incentive spirometry at home. Stop losartan. Reduce Imdur to 30 mg daily. Reduce Lasix to 40 mg daily. To home health nurse: Please monitor blood pressure closely Please follow-up wound care nurse instructions: To left forearm/wrist and left buttocks-clean with saline, cover with Aquacel Ag and cover with OPTi foam. Change 4 times daily and as needed. Urology service instructions: Continue topical mupirocin and miconazole to foreskin/meatus x1 week PLEASE CALL YOUR PRIMARY CARE PHYSICIAN OR RETURN TO THE ER IF WITH WORSENING OF SYMPTOMS, INCLUDING Increasing pain, weakness, shortness of breath, chest pain, fevers or chills, etc. FOLLOW UP WITH PRIMARY CARE PHYSICIAN IN 1 WEEK.
== END 2023-03-01 17:56 | disposition home health service (06) | DRG 313 ==
LOC: ED 19:28 → EDINP 19:28 → SUATTDRO 23:50 → 2N 02-27 00:07

== ENCOUNTER 2023-08-20 18:11 | Inpatient (IN) ==
--- NOTE | 2023-08-20 18:44 | Emergency Department Note ---
Impression & Plan Generalized weakness ED Provider Note HISTORY OF PRESENT ILLNESS: Patient is an 88-year-old male presenting with generalized weakness. EMS reports that the patient had breakfast with the son at 5 AM and he was his normal self. However, the son went to see him about an hour prior to arrival in the emergency department and patient seemed to be "not acting his normal self." In discussion with the patient, he states that he has been having generalized weakness for the last week. He normally gets around at his house with a rollator, but for the last week he has been having episodes in which his legs buckle secondary to weakness. He states that he is not have any numbness or tingling in his extremities. Denies any chest pain or shortness of breath. Son reported to EMS that the patient had a facial droop. Patient is on a baby aspirin daily. Patient denies any dark discoloration of his stool. ROS: as above PHYSICAL EXAM: Constitutional: Patient appears in no acute distress. HENT: Head: Normocephalic and atraumatic. Eyes: EOMI, PERRL Mouth/Throat: Mucous membranes moist. Neck: Trachea midline. Neck supple. Cardiovascular: RRR, No murmurs, rubs or gallops. Intact distal pulses. Pulmonary/Chest: No respiratory distress. Breath sounds clear and equal bilaterally. No wheezes or rales. Abdominal: Abdomen soft, no tenderness, rebound or guarding. Musculoskeletal: No edema, tenderness or deformity noted. Skin: Warm and dry. No rash, erythema, pallor or cyanosis Psychiatric: Appropriate mood and affect for situation. Neurological: Alert and keenly responsive. CN II-XII grossly intact, moving all extremities equally and fully. MDM: - Vitals signs showed hypertension - History obtained via patient. History as above. - Chronic conditions affecting care: CHF; paroxysmal Afib; CAD (s.p PCI); HTN; HLD; MGUS - Differential diagnoses include, but are not limited to: CVA; intracranial hemorrhage; UTI; pneumonia; viral syndrome; dehydration; electrolyte abnormality - Order placed for continuous cardiac monitoring. At this time, monitor showed rate of 98 bpm with normal sinus rhythm, per my interpretation. - External medical records reviewed. Oncology/hematology note dated 05/28/2023 was reviewed. Patient follows in their clinic for his monoclonal paraproteinemia. He has MGUS IgG labda gammopathy - EKG interpreted by myself showed normal sinus rhythm. Rate 90 bpm. QT 374. No acute ischemic changes. - Laboratory workup interpreted by myself showed normal WBC; slight hyponatremia (Na 133); elevated BUN (30); elevated troponin (27); elevated TSH with normal T4 - Repeat troponin slightly more elevated at 27.3 - CXR negative for pneumonia, per my interpretation - Patient not a candidate for TNK, as he has no focal deficits and unclear last known well. - CT head wo contrast negative for acute pathology, per radiology - Viral respiratory panel negative - Patient given 1L NS in ER. - Patient lives home alone and reports has been unable to get around at home secondary to his weakness. Will admit to hospitalist service. - Discussion was had with case management coordinator about patient's case and need for admission - Hospitalist consulted for admission - Patient admitted to [facility] hospitalist service for further evaluation and management. ASSESSMENT AND PLAN: Diagnosis: Generalized weakness Plan: admit Past Med/Surg History Problem List Generalized weakness (Acute) Encounter for pre-operative examination Urinary symptom or sign Penile ulcer Balanitis Fall Left-sided chest wall pain (Acute) Ambulatory dysfunction (Acute) Leukocytosis (Acute) Hernia, hiatal (Acute) Generalized weakness (Acute) Acute on chronic diastolic (congestive) heart failure Paroxysmal atrial fibrillation Chronic diastolic heart failure Leukocytosis (Acute) GI bleed (Acute) Iron deficiency anemia (Acute) Diverticulitis (Acute) Elevated troponin (Acute) Symptomatic anemia (Acute) Diverticulitis Lower GI bleed Symptomatic anemia Greater trochanteric bursitis of both hips Elevated troponin I level CHF (congestive heart failure) (Acute) Atrial fibrillation, rapid (Acute) DVT prophylaxis Elevated troponin Chronic diastolic CHF (congestive heart failure) Atrial fibrillation with RVR Inflammatory polyarthropathy Atrial fibrillation Follows with [facility] cardiology CAD (coronary artery disease) (Chronic) 2011- MARY to LAD BPH (benign prostatic hyperplasia) (Chronic) 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 Zhu Osteoarthritis (Chronic) Chronic back pain (Chronic) Scoliosis (Chronic) History of tooth extraction (Chronic) History of cataract surgery (Chronic) R/L Medical History Atrial fibrillation Follows with [facility] cardiology BPH (benign prostatic hyperplasia) CAD (coronary artery disease) 2012- MARY to LAD Chronic back pain Chronic renal disease, stage [address] 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) Following with [facility] heme/onc- last seen 05/28/23, recommendation to monitor/follow-up on annual basis Myocardial Infarction 2011 Osteoarthritis Scoliosis Seronegative arthritis Surgical History History of cardiac cath 2012 > stent x1 History of cataract surgery R/L History of heart artery stent 2012 > stent x1 History of tooth extraction Family History Mother Coronary heart disease, Onset Age: [address] CHF (congestive heart failure) Myocardial infarction Father CHF (congestive heart failure) Pneumonia Sister Coronary heart disease History of CABG Rheumatic heart disease Social History Smoking Status: Never smoker Second Hand Exposure: No; Do You Dip or Chew Tobacco: No; Hx Alcohol Use: Yes Hx Substance Use: No Preferred Language: Slovenian Communication Ability: Effective Supervisor Stone Required: No Beliefs That Will Affect Care: None marital status: / Current Living Situation: Alone Feels Safe at Home: Yes Assistive Devices: Denture - Upper, Denture - Lower, Glasses, Raised Toilet Seat, Stair Lift, Walker, Wheelchair and Other Allergies Allergies Allergy/AdvReac Type Severity Reaction Status Date / Time atenolol Allergy Unknown Patient Verified 06/04/23 05:52 told "never to take again" candesartan [From Atacand] AdvReac Intermediate Hyperkalemi Verified 06/04/23 05:52 a lisinopril AdvReac Intermediate Increased Verified 06/04/23 05:52 creatinine, hypotension Home Meds Home Medications Medication Instructions Recorded Confirmed albuterol sulfate 90 mcg/actuation 2 inh inhalation UD PRN Shortness 06/04/18 06/14/23 breath activated powder inhaler Of Breath Or Wheezing aspirin 81 mg tablet,delayed 81 mg PO QAM 06/04/18 06/14/23 release atorvastatin 80 mg tablet 80 mg PO QAM 06/04/18 06/14/23 multivitamin-ferrous 1 tab PO DAILY 09/03/18 06/14/23 fumarate-folic acid 18 mg-400 mcg tablet (Centrum) carvedilol 12.5 mg tablet 12.5 mg PO BID 06/13/22 06/14/23 linagliptin 5 mg tablet (Tradjenta) 5 mg PO QAM 06/13/22 06/14/23 nitroglycerin 0.4 mg sublingual 0.4 mg sublingual DIRECTED PRN 06/13/22 06/14/23 tablet Chest Pain prednisone 5 mg tablet 5 - 15 mg PO QAM 06/13/22 06/14/23 sotalol 80 mg tablet 40 mg PO BID 06/13/22 06/14/23 terazosin 2 mg capsule 2 mg PO HS 06/13/22 06/14/23 coenzyme Q10 400 mg capsule 400 mg PO DAILY 02/26/23 06/14/23 empagliflozin 10 mg tablet 10 mg PO QAM 02/26/23 06/14/23 (Jardiance) Metamucil 1 cap PO DAILY 05/28/23 06/14/23 finasteride 5 mg tablet 5 mg PO QAM 05/28/23 06/14/23 furosemide 40 mg tablet (Lasix) 40 mg PO QAM 05/28/23 06/14/23 Previous Rx's Medication Instructions Recorded acetaminophen 500 mg capsule 1,000 mg (2 x 500 mg) PO TID PRN 03/01/23 pain #30 caps isosorbide mononitrate 30 mg 30 mg PO DAILY #30 tabs 03/01/23 tablet,extended release 24 hr phenazopyridine 200 mg tablet 200 mg PO Q8H PRN pain #10 tabs 06/04/23 (Pyridium) sulfamethoxazole 800 1 tab PO Q12H #10 tabs 06/04/23 mg-trimethoprim 160 mg tablet (Bactrim DS) Results & Data (ED) Vital Signs Vital Signs - 24 hr 08/20/23 18:20 08/20/23 18:22 08/20/23 18:30 Temperature 37.4 C Temperature Source Oral Pulse Rate 90 90 90 Pulse Rate from SpO2 Sensor 91 H 88 Pulse Rhythm Regular Pulse Strength Normal Respiratory Rate 18 18 16 Respiratory Effort / Characteristics Non-Labored Respiratory Depth Normal Respiratory Pattern Regular Blood Pressure 170/104 H 170/104 H 171/105 H Blood Pressure Mean 126 126 127 Blood Pressure Position Sitting Pulse Oximetry 95 96 93 Oxygen Delivery Method Room Air Sepsis Recent Fever Within 48 Hours No Sepsis New/Unexplained Change in Mental Status N/A Sepsis Action Taken by Nursing No Action Required 08/20/23 18:35 08/20/23 18:50 08/20/23 19:00 Temperature Temperature Source Pulse Rate 89 89 91 H Pulse Rate from SpO2 Sensor 93 H 87 Pulse Rhythm Pulse Strength Respiratory Rate 19 18 Respiratory Effort / Characteristics Respiratory Depth Respiratory Pattern Blood Pressure 149/90 H Blood Pressure Mean 109 Blood Pressure Position Pulse Oximetry 97 94 Oxygen Delivery Method Sepsis Recent Fever Within 48 Hours Sepsis New/Unexplained Change in Mental Status Sepsis Action Taken by Nursing 08/20/23 19:00 08/20/23 19:40 08/20/23 19:50 Temperature Temperature Source Pulse Rate 87 89 Pulse Rate from SpO2 Sensor 91 H Pulse Rhythm Pulse Strength Respiratory Rate 8 L 22 Respiratory Effort / Characteristics Respiratory Depth Respiratory Pattern Blood Pressure 149/90 H Blood Pressure Mean 114 Blood Pressure Position Pulse Oximetry 96 Oxygen Delivery Method Sepsis Recent Fever Within 48 Hours Sepsis New/Unexplained Change in Mental Status Sepsis Action Taken by Nursing 08/20/23 20:00 08/20/23 20:30 Temperature Temperature Source Pulse Rate 86 98 H Pulse Rate from SpO2 Sensor 83 92 H Pulse Rhythm Pulse Strength Respiratory Rate 20 16 Respiratory Effort / Characteristics Respiratory Depth Respiratory Pattern Blood Pressure 156/88 H 165/109 H Blood Pressure Mean 110 127 Blood Pressure Position Pulse Oximetry 95 92 Oxygen Delivery Method Room Air Room Air Sepsis Recent Fever Within 48 Hours Sepsis New/Unexplained Change in Mental Status Sepsis Action Taken by Nursing Laboratory Data 08/20/23 18:22 08/20/23 18:22 Lab Results 08/20/23 08/20/23 08/20/23 Range/Units 18:22 18:33 19:57 WBC 9.57 (4.8-10.8) K/ul RBC 5.10 (4.70-6.10) M/uL Hgb 14.4 (14.0-18.0) g/dl Hct 44.0 (42.0-52.0) % MCV 86.3 (80.0-100.0) fL MCH 28.2 (25.0-34.0) pg MCHC 32.7 (32.0-36.0) g/dL RDW Std Deviation 54.5 H (36.4-46.3) fL RDW Coeff of Coty 17.9 H (11.5-14.5) % Plt Count 141 (130-400) K/uL MPV 10.1 (9.4-12.4) fL Immature Gran % (Auto) 3.9 % Neut % (Auto) 84.1 % Lymph % (Auto) 5.6 % [place] % (Auto) 5.9 % Eos % (Auto) 0.2 % Baso % (Auto) 0.3 % Neut # (Auto) 8.05 H (1.40-6.50) K/uL Lymph # (Auto) 0.54 L (1.20-3.40) K/uL [place] # (Auto) 0.56 (0.11-0.59) K/uL Eos # (Auto) 0.02 (0.00-0.50) K/uL Baso # (Auto) 0.03 (0.00-0.20) K/uL Immature Gran # (Auto) 0.37 H (0.01-0.20) K/uL PT 10.8 (9.0-12.0) Seconds INR 1.0 (0.9-1.1) Sodium 133 L (136-145) mmol/L Potassium 4.2 (3.5-5.1) mmol/L Chloride 101 (98-107) mmol/L Carbon Dioxide 22 (21-32) mmol/L Anion Gap 10 (3-11) BUN 30 H (6-23) mg/dl Creatinine 0.62 (0.6-1.4) mg/dl Est Cr Clr Drug Dosing 67.2 ml/min Est GFR ( Amer) 101.9 ml/min Est GFR (Non-Af Amer) 88.0 ml/min BUN/Creatinine Ratio 48.4 H (10-20) Glucose 273 H (70-99(Fasting)) mg/dl Lactate 1.8 (0.4-2.0) mmol/L Calcium 9.0 (8.6-10.3) mg/dl Magnesium 2.0 (1.7-2.4) mg/dl Total Bilirubin 0.8 (0.2-1.0) mg/dl AST 25 (13-39) U/L ALT 28 (7-52) U/L Alkaline Phosphatase 62 (34-104) U/L Troponin I High Sens 27.0 H (0-20) pg/ml Total Protein 6.1 (6.0-8.3) gm/dl Albumin 3.1 L (3.4-5.0) gm/dl Globulin 3.0 (2.5-4.0) gm/dl Albumin/Globulin Ratio 1.0 (0.9-2) TSH 4.694 H (0.300-4.500) uIu/ml Free T4 1.30 (0.61-1.60) ng/dl Adenovirus (PCR) Not Detected (NotDetected) B. pertussis DNA (PCR) Not Detected (NotDetected) B.parapertussis DNA PCR Not Detected (NotDetected) C. pneumoniae DNA (PCR) Not Detected (NotDetected) Coronavirus OC43 (PCR) Not Detected (NotDetected) Coronavirus HKU1 (PCR) Not Detected (NotDetected) Coronavirus 229E (PCR) Not Detected (NotDetected) SARS-CoV-2 (PCR) Not Detected (NotDetected) Coronavirus NL63 (PCR) Not Detected (NotDetected) Human Metapneumovir PCR Not Detected (NotDetected) Influenza Type A (PCR) Not Detected (NotDetected) Influenza Type B (PCR) Not Detected (NotDetected) M. pneumoniae (PCR) Not Detected (NotDetected) Parainfluenza 1 (PCR) Not Detected (NotDetected) Parainfluenza 2 (PCR) Not Detected (NotDetected) Parainfluenza 3 (PCR) Not Detected (NotDetected) Parainfluenza 4 (PCR) Not Detected (NotDetected) RSV (PCR) Not Detected (NotDetected) Entero/Rhino (PCR) Not Detected (NotDetected) 08/20/23 Range/Units 19:58 WBC (4.8-10.8) K/ul RBC (4.70-6.10) M/uL Hgb (14.0-18.0) g/dl Hct (42.0-52.0) % MCV (80.0-100.0) fL MCH (25.0-34.0) pg MCHC (32.0-36.0) g/dL RDW Std Deviation (36.4-46.3) fL RDW Coeff of Coty (11.5-14.5) % Plt Count (130-400) K/uL MPV (9.4-12.4) fL Immature Gran % (Auto) % Neut % (Auto) % Lymph % (Auto) % [place] % (Auto) % Eos % (Auto) % Baso % (Auto) % Neut # (Auto) (1.40-6.50) K/uL Lymph # (Auto) (1.20-3.40) K/uL [place] # (Auto) (0.11-0.59) K/uL Eos # (Auto) (0.00-0.50) K/uL Baso # (Auto) (0.00-0.20) K/uL Immature Gran # (Auto) (0.01-0.20) K/uL PT (9.0-12.0) Seconds INR (0.9-1.1) Sodium (136-145) mmol/L Potassium (3.5-5.1) mmol/L Chloride (98-107) mmol/L Carbon Dioxide (21-32) mmol/L Anion Gap (3-11) BUN (6-23) mg/dl Creatinine (0.6-1.4) mg/dl Est Cr Clr Drug Dosing ml/min Est GFR ( Amer) ml/min Est GFR (Non-Af Amer) ml/min BUN/Creatinine Ratio (10-20) Glucose (70-99(Fasting)) mg/dl Lactate (0.4-2.0) mmol/L Calcium (8.6-10.3) mg/dl Magnesium (1.7-2.4) mg/dl Total Bilirubin (0.2-1.0) mg/dl AST (13-39) U/L ALT (7-52) U/L Alkaline Phosphatase (34-104) U/L Troponin I High Sens 27.3 H (0-20) pg/ml Total Protein (6.0-8.3) gm/dl Albumin (3.4-5.0) gm/dl Globulin (2.5-4.0) gm/dl Albumin/Globulin Ratio (0.9-2) TSH (0.300-4.500) uIu/ml Free T4 (0.61-1.60) ng/dl Adenovirus (PCR) (NotDetected) B. pertussis DNA (PCR) (NotDetected) B.parapertussis DNA PCR (NotDetected) C. pneumoniae DNA (PCR) (NotDetected) Coronavirus OC43 (PCR) (NotDetected) Coronavirus HKU1 (PCR) (NotDetected) Coronavirus 229E (PCR) (NotDetected) SARS-CoV-2 (PCR) (NotDetected) Coronavirus NL63 (PCR) (NotDetected) Human Metapneumovir PCR (NotDetected) Influenza Type A (PCR) (NotDetected) Influenza Type B (PCR) (NotDetected) M. pneumoniae (PCR) (NotDetected) Parainfluenza 1 (PCR) (NotDetected) Parainfluenza 2 (PCR) (NotDetected) Parainfluenza 3 (PCR) (NotDetected) Parainfluenza 4 (PCR) (NotDetected) RSV (PCR) (NotDetected) Entero/Rhino (PCR) (NotDetected) Imaging Data Radiologist's Impression: Head CT 08/20/23 18:40 Exam(s): CT HEAD Without Contrast EXAM: CT Head Without Intravenous Contrast CLINICAL HISTORY: Reason for exam: weakness. TECHNIQUE: Axial computed tomography images of the head/brain without intravenous contrast. CTDI is 37.08 mGy and DLP is 547.75 mGy-cm. Automated exposure control was utilized for the study. A dose lowering technique was utilized adhering to the principles of ALARA. COMPARISON: 02/26/23 FINDINGS: Brain: There is generalized parenchymal volume loss with periventricular and deep cerebral white matter hypoattenuation, compatible with chronic small vessel ischemic change. Fields-white matter differentiation is maintained. There is no hemorrhage, mass effect, parenchymal edema, or midline shift. Ventricles: Unremarkable. No hydrocephalus. Bones/joints: Calvarium is intact. No acute fracture. Soft tissues: Unremarkable. Vasculature: Intracranial atherosclerosis. Sinuses: Unremarkable as visualized. Mastoid air cells: Unremarkable as visualized. No mastoid effusion. Orbits: Bilateral lens replacements. IMPRESSION: No acute intracranial process. Electronically signed by: Andrea Boateng M.D. 08/20/23 20:05 PM Chest X-Ray 08/20/23 18:41 XR chest 1V portable HISTORY: weakness COMPARISON: Chest 03/01/2023. FINDINGS: No pneumothorax. The heart remains mildly enlarged. A large hiatus hernia is again noted. Bibasilar linear densities persist and favor subsegmental atelectasis. Otherwise, no new focal lung consolidations to suggest a pneumonia. No evidence for pulmonary edema. No acute fractures identified. Advanced degenerative changes within the shoulders. There is a 7 cm soft tissue density superior to the left acromioclavicular joint. This is indeterminate but could be due to a fluid collection at the acromioclavicular joint related to chronic rotator cuff injury. This remains unchanged. IMPRESSION: No significant change compared to the prior study. No acute process. ACT 112: Negative or not required by law. Electronically signed by: Nathan Bland M.D. 08/20/2023 7:05 PM Discharge Plan Visit Data Chief Complaint: TIA Symptoms ED Provider: Myrtle Carrington Discharge Problem: Generalized weakness Forms Stand Alone Forms: [facility] Prescriptions Prescriptions: No Action atorvastatin 80 mg Tablet 80 mg PO QAM aspirin 81 mg Tablet,Delayed Release (Dr/Ec) 81 mg PO QAM albuterol sulfate 90 mcg/actuation Aerosol Powdr Breath Activated 2 inh INHALATION UD PRN (Reason: Shortness Of Breath Or Wheezing) Rx Instructions: [id number] Centrum 18-400 mg-mcg Tablet 1 tab PO DAILY carvedilol 12.5 mg tablet 12.5 mg PO BID sotalol 80 mg tablet 40 mg PO BID prednisone 5 mg tablet 5 - 15 mg PO QAM Rx Instructions: 1-3 tablets per [facility]. Seems taking 10mg daily terazosin 2 mg capsule 2 mg PO HS nitroglycerin 0.4 mg tablet, sublingual 0.4 mg sublingual DIRECTED MDD 3 DOSES/15 MINUTES PRN (Reason: Chest Pain) Tradjenta 5 mg tablet 5 mg PO QAM Jardiance 10 mg tablet 10 mg PO QAM coenzyme Q10 400 mg Capsule 400 mg PO DAILY acetaminophen 500 mg capsule 1,000 mg PO TID PRN (Reason: pain) Qty: 30 0RF isosorbide mononitrate 30 mg tablet extended release 24 hr 30 mg PO DAILY Qty: 30 1RF Metamucil 1 cap PO DAILY furosemide [Lasix] 40 mg tablet 40 mg PO QAM Patient Comments: takes 1/2 in am and 1/2 at night finasteride 5 mg tablet 5 mg PO QAM phenazopyridine [Pyridium] 200 mg tablet 200 mg PO Q8H PRN (Reason: pain) Qty: 10 0RF sulfamethoxazole-trimethoprim [Bactrim DS] 800-160 mg tablet 1 tab PO Q12H Qty: 10 0RF Referrals Referrals: Eldon Dowd MD [Primary Care Provider] -
[2023-08-20 19:02] LABS: Basophils # (auto) 0.03 K/uL (0.00-0.20); Basophils % (auto) 0.3 %; Eosinophils # (auto) 0.02 K/uL (0.00-0.50); Eosinophils % (auto) 0.2 %; Hemoglobin 14.4 g/dl (14.0-18.0); Immature Granulocytes # (auto) 0.37 K/uL (0.01-0.20); Immature Granulocytes % (auto) 3.9 %; Lymphocytes # (auto) 0.54 K/uL (1.20-3.40); Lymphocytes % (auto) 5.6 %; Mean Corpuscular Hemoglobin 28.2 pg (25.0-34.0); Mean Corpuscular Hgb Conc 32.7 g/dL (32.0-36.0); Mean Corpuscular Volume 86.3 fL (80.0-100.0); Mean Platelet Volume 10.1 fL (9.4-12.4); Monocytes # (auto) 0.56 K/uL (0.11-0.59); Monocytes % (auto) 5.9 %; Neutrophils # (auto) 8.05 K/uL (1.40-6.50); Neutrophils % (auto) 84.1 %; Platelet Count 141 K/uL (130-400); RDW Coefficient of Variation 17.9 % (11.5-14.5); RDW Standard Deviation 54.5 fL (36.4-46.3); White Blood Count 9.57 K/ul (4.8-10.8)
--- NOTE | 2023-08-20 19:08 | XRay Report ---
XR chest 1V portable HISTORY: weakness COMPARISON: Chest 03/01/2023. FINDINGS: No pneumothorax. The heart remains mildly enlarged. A large hiatus hernia is again noted. B ibasilar linear densities persist and favor subsegmental atelectasis. Otherwise, no new focal lung co nsolidations to suggest a pneumonia. No evidence for pulmonary edema. No acute fractures identified. Advanced degenerative changes within the shoulders. There is a 7 cm soft tissue density superior to t he left acromioclavicular joint. This is indeterminate but could be due to a fluid collection at the acromioclavicular joint related to chronic rotator cuff injury. This remains unchanged. IMPRESSION: No significant change compared to the prior study. No acute process. ACT 112: Negative or not required by law. Electronically signed by: Nathan Bland M.D. 08/20/2023 7:05 PM
[2023-08-20 19:19] LABS: Albumin Level 3.1 gm/dl (3.4-5.0); BUN Creatinine Ratio 48.4 (10-20); Bilirubin,Total 0.8 mg/dl (0.2-1.0); Creatinine Clr Calc Pharmacy 67.2 ml/min; Est GFR (African American) 101.9 ml/min; Potassium 4.2 mmol/L (3.5-5.1); Total Protein 6.1 gm/dl (6.0-8.3)
[2023-08-20 19:28] LABS: Prothrombin Time 10.8 Seconds (9.0-12.0)
[2023-08-20 19:34] LABS: Thyroid Stimulating Hormone 4.694 uIu/ml (0.300-4.500)
[2023-08-20 19:44] LABS: Adenovirus PCR Not Detected (NotDetected); Bordetella parapertussis PCR Not Detected (NotDetected); Bordetella pertussis PCR Not Detected (NotDetected); Chlamydia pneumoniae PCR Not Detected (NotDetected); Coronavirus 229E PCR Not Detected (NotDetected); Coronavirus CoV-2 (COVID19)PCR Not Detected (NotDetected); Coronavirus HKU1 PCR Not Detected (NotDetected); Coronavirus NL63 PCR Not Detected (NotDetected); Coronavirus OC43PCR Not Detected (NotDetected); Human Metapneumovirus PCR Not Detected (NotDetected); Influenza A PCR Not Detected (NotDetected); Influenza B PCR Not Detected (NotDetected); Mycoplasma pneumoniae PCR Not Detected (NotDetected); Parainfluenza Virus 1 PCR Not Detected (NotDetected); Parainfluenza Virus 2 PCR Not Detected (NotDetected); Parainfluenza Virus 3 PCR Not Detected (NotDetected); Parainfluenza Virus 4 PCR Not Detected (NotDetected); Respiratory Syncytial VirusPCR Not Detected (NotDetected); Rhinovirus/Enterovirus PCR Not Detected (NotDetected)
--- NOTE | 2023-08-20 20:06 | CT Scan Report ---
Exam(s): CT HEAD Without Contrast EXAM: CT Head Without Intravenous Contrast CLINICAL HISTORY: Reason for exam: weakness. TECHNIQUE: Axial computed tomography images of the head/brain without intravenous contrast. CTDI is 37.08 mGy and DLP is 547.75 mGy-cm. Automated exposure control was utilized for the study. A dose lowering technique was utilized adhering to the principles of ALARA. COMPARISON: 02/26/23 FINDINGS: Brain: There is generalized parenchymal volume loss with periventricular and deep cerebral white matter hypoattenuation, compatible with chronic small vessel ischemic change. Fields-white matter differentiation is maintained. There is no hemorrhage, mass effect, parenchymal edema, or midline shift. Ventricles: Unremarkable. No hydrocephalus. Bones/joints: Calvarium is intact. No acute fracture. Soft tissues: Unremarkable. Vasculature: Intracranial atherosclerosis. Sinuses: Unremarkable as visualized. Mastoid air cells: Unremarkable as visualized. No mastoid effusion. Orbits: Bilateral lens replacements. IMPRESSION: No acute intracranial process. Electronically signed by: Andrea Boateng M.D. 08/20/23 20:05 PM
[2023-08-20 20:09] LABS: T4 Free Thyroxine 1.3 ng/dl (0.61-1.60)
[2023-08-20] MEDS: ACETAMINOPHEN 1,000 MG/100 ML VIAL IV STA (21:51)
[2023-08-20] MEDS: SODIUM CHLORIDE 0.9% 1,000 ML IV ONE (21:53)
[2023-08-20 22:35] LABS: Appearance Urine Clear (Clear); Bacteria Urine Automated None Seen (None Seen); Bilirubin Urine Negative (Negative); Blood Urine Negative (Negative); Cast Urine Automated 0-2 /lpf (0-2); Color Urine Yellow; Epithelial Cell Urine Auto 0-2 /hpf (0-2); Glucose Urine UA 3+ (Negative); Ketones Urine Negative (Negative); Leukocyte Esterase Urine Negative (Negative); Nitrite Urine Negative (Negative); Protein Urine Trace (Negative); RBC Urine Automated 0-2 /hpf (0-2); Specific Gravity Urine 1.031 (1.000-1.030); Urobilinogen Urine Negative (Negative); WBC Urine Automated 0-5 /hpf (0-5)
--- NOTE | 2023-08-21 00:10 | History & Physical Report ---
Date of Service August 21, 2023 Assessment & Plan (1) TIA (transient ischemic attack): Plan: Presenting as transient left facial weakness witnessed by family ? 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 Deconditioning, possible steroid myopathy past tobacco abuse OBS Medical telemetry Neurochecks Plavix for possible aspirin failure for now MRI/MRA brain Re: TIA additional stroke workup contingent on MRI results permissive hypertension until stroke ruled out Topical nystatin in place of oral fluconazole started by PCP for oral thrush (Concern for QTc prolongation with concomitant administration of fluconazole with patient's sotalol) Decrease maintenance prednisone dose from 10 mg to 5 mg daily for inflammatory arthritis given concern for long-term adverse effects (fungal infection, poorly controlled DM, possible myopathy in patient) PT OT eval DVT prophylaxis per Lovenox subcu Full code Patient sons requesting updates providers. Mr. Vinod Arceo, contact #[phone]. Mr. Salvatore Arceo, contact #[phone]. Text document was generated using [employer] voice recognition software. It may contain grammatical or spelling errors. Kindly contact undersigned for clarification of any documentation item in question. History of Present Illness Chief Complaint: Weakness, left facial weakness as per family Primary Care Provider: Eldon Dowd MD History obtained from patient, family, and records. Medical history significant for chronic diastolic heart failure (EF 65 to 70%, TTE 2022), CAD status post stent, valvular heart disease (mild AR, trace TR), A- fib off anticoagulation secondary to risks, hypertension, hyperlipidemia, DM 2 on oral medications, inflammatory arthritis on chronic steroid Rx, BPH, mon oclonal gammopathy, past tobacco abuse. Last confinement January 2023 for mechanical fall. Patient subsequent discharged home. Patient noted by family to be increasingly weak since last week. Sore throat symptoms. Not sure about sick contacts. Patient seen at PCPs office last 08/14. Strep screen negative. Fluconazole 3-week course prescribed for oral thrush. Patient's son noted transient left facial weakness at home around lunchtime. Patient denies headache, chest pain, SOB, abdominal pain. Unquantified weight loss at home. Patient brought to the ER for evaluation. Left facial droop currently resolved. 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 Allergies Allergy/AdvReac Type Severity Reaction Status Date / Time atenolol Allergy Unknown Patient Verified 08/20/23 22:28 told "never to take again" candesartan [From Atacand] AdvReac Intermediate Hyperkalemi Verified 08/20/23 22:28 a lisinopril AdvReac Intermediate Increased Verified 08/20/23 22:28 creatinine, hypotension Home Medications Medication Instructions Recorded Confirmed Type albuterol sulfate 90 mcg/actuation 2 inh inhalation UD PRN Shortness 06/04/18 08/20/23 History breath activated powder inhaler Of Breath Or Wheezing aspirin 81 mg tablet,delayed 81 mg PO QAM 06/04/18 08/20/23 History release atorvastatin 80 mg tablet 80 mg PO QAM 06/04/18 08/20/23 History multivitamin-ferrous 1 tab PO DAILY 09/03/18 08/20/23 History fumarate-folic acid 18 mg-400 mcg tablet (Centrum) carvedilol 12.5 mg tablet 12.5 mg PO BID 06/13/22 08/20/23 History linagliptin 5 mg tablet (Tradjenta) 5 mg PO QAM 06/13/22 08/20/23 History nitroglycerin 0.4 mg sublingual 0.4 mg sublingual DIRECTED PRN 06/13/22 08/20/23 History tablet Chest Pain prednisone 5 mg tablet 10 mg PO QAM 06/13/22 08/20/23 History sotalol 80 mg tablet 40 mg PO BID 06/13/22 08/20/23 History terazosin 2 mg capsule 2 mg PO HS 06/13/22 08/20/23 History coenzyme Q10 400 mg capsule 400 mg PO DAILY 02/26/23 08/20/23 History empagliflozin 10 mg tablet 10 mg PO QAM 02/26/23 08/20/23 History (Jardiance) acetaminophen 500 mg capsule 1,000 mg (2 x 500 mg) PO TID PRN 03/01/23 08/20/23 Rx pain #30 caps Metamucil 1 cap PO DAILY 05/28/23 08/20/23 History finasteride 5 mg tablet 5 mg PO QAM 05/28/23 08/20/23 History furosemide 40 mg tablet (Lasix) 40 mg PO Q OTHER DAY 05/28/23 08/20/23 History fluconazole 100 mg tablet 100 mg PO BID 08/20/23 08/20/23 History furosemide 40 mg tablet 60 mg PO Q OTHER DAY 08/20/23 08/20/23 History Past Med/Surg History Problem List TIA (transient ischemic attack) Generalized weakness (Acute) Encounter for pre-operative examination Urinary symptom or sign Penile ulcer Balanitis Fall Left-sided chest wall pain (Acute) Ambulatory dysfunction (Acute) Leukocytosis (Acute) Hernia, hiatal (Acute) Generalized weakness (Acute) Acute on chronic diastolic (congestive) heart failure Paroxysmal atrial fibrillation Chronic diastolic heart failure Leukocytosis (Acute) GI bleed (Acute) Iron deficiency anemia (Acute) Diverticulitis (Acute) Elevated troponin (Acute) Symptomatic anemia (Acute) Diverticulitis Lower GI bleed Symptomatic anemia Greater trochanteric bursitis of both hips Elevated troponin I level CHF (congestive heart failure) (Acute) Atrial fibrillation, rapid (Acute) DVT prophylaxis Elevated troponin Chronic diastolic CHF (congestive heart failure) Atrial fibrillation with RVR Inflammatory polyarthropathy Atrial fibrillation Follows with [facility] CAD (coronary artery disease) (Chronic) 2011- MARY to LAD BPH (benign prostatic hyperplasia) (Chronic) 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 Zhu Osteoarthritis (Chronic) Chronic back pain (Chronic) Scoliosis (Chronic) History of tooth extraction (Chronic) History of cataract surgery (Chronic) R/L Medical History Atrial fibrillation Follows with [facility] BPH (benign prostatic hyperplasia) CAD (coronary artery disease) 2012- MARY to LAD Chronic back pain Chronic renal disease, stage III [address] 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) Following with [facility]- last seen 05/28/23, recommendation to monitor/follow-up on annual basis Myocardial Infarction 2011 Osteoarthritis Scoliosis Seronegative arthritis Surgical History History of cardiac cath 2011 > stent x1 History of cataract surgery R/L History of heart artery stent 2012 > stent x1 History of tooth extraction Family History Mother Coronary heart disease, Onset Age: 63 of [place] CHF (congestive heart failure) Myocardial infarction Father CHF (congestive heart failure) Pneumonia Sister Coronary heart disease History of CABG Rheumatic heart disease Social History Smoking Status: Never smoker Second Hand Exposure: No; Do You Dip or Chew Tobacco: No; Hx Alcohol Use: No Hx Substance Use: No Preferred Language: Romanian Communication Ability: Effective District Leader Required: No Beliefs That Will Affect Care: None marital status: / Current Living Situation: Alone Feels Safe at Home: Yes Assistive Devices: Denture - Upper, Denture - Lower, Glasses, Raised Toilet Seat, Stair Lift, Walker, Wheelchair and Other Review of Systems Review of Systems: As per HPI, all other systems reviewed and negative Physical Exam Physical Exam: GENERAL: Slightly uncomfortable, chronically ill, slightly hard of hearing, no respiratory distress SKIN: Normal color, warm HEENT: [place] palpebral conjunctivae, no ptosis, dry buccal mucosa NECK : Supple, no tenderness CHEST : Decreased breath sounds, no tenderness HEART : RRR, no obvious murmurs ABDOMEN: no distention, nontender EXTREMITIES : No LE swelling/tenderness, chronic left shoulder tenderness, no other conspicuous deformities noted NEUROLOGIC : Coherent, no facial asymmetry, slightly hard of hearing, MMTS BUE /BLE 3/5, gait and stance not assessed Results & Data Results & Data Vital Signs (Past 12 Hours) Vital Signs Temp Pulse Resp BP Pulse Ox O2 Del Method O2 Flow Rate 05/20/24 22:29 77 08/20/23 22:00 90 20 154/106 H 96 Nasal Cannula 2 08/20/23 21:52 91 H 16 137/84 97 Nasal Cannula 2 08/20/23 21:00 92 H 20 134/97 96 Nasal Cannula 2 08/20/23 20:30 98 H 16 165/109 H 92 Room Air 08/20/23 20:00 86 20 156/88 H 95 Room Air 08/20/23 19:50 89 22 96 08/20/23 19:40 87 8 L 08/20/23 19:00 149/90 H 08/20/23 19:00 91 H 18 149/90 H 94 08/20/23 18:50 89 19 97 08/20/23 18:35 89 08/20/23 18:30 90 16 171/105 H 93 08/20/23 18:22 37.4 C 90 18 170/104 H 96 Room Air 08/20/23 18:20 90 18 170/104 H 95 Laboratory Results Laboratory Results WBC 9.57 K/ul (4.8-10.8) 08/20/23 18:22 RBC 5.10 M/uL (4.70-6.10) 08/20/23 18:22 Hgb 14.4 g/dl (14.0-18.0) 08/20/23 18:22 Hct 44.0 % (42.0-52.0) 08/20/23 18:22 MCV 86.3 fL (80.0-100.0) 08/20/23 18:22 MCH 28.2 pg (25.0-34.0) 08/20/23 18:22 MCHC 32.7 g/dL (32.0-36.0) 08/20/23 18:22 RDW Std Deviation 54.5 fL (36.4-46.3) H 08/20/23 18:22 RDW Coeff of [place] 17.9 % (11.5-14.5) H 08/20/23 18:22 Plt Count 141 K/uL (130-400) 08/20/23 18:22 MPV 10.1 fL (9.4-12.4) 08/20/23 18:22 Immature Gran % (Auto) 3.9 % 08/20/23 18:22 Neut % (Auto) 84.1 % 08/20/23 18:22 Lymph % (Auto) 5.6 % 08/20/23 18:22 [place] % (Auto) 5.9 % 08/20/23 18:22 Eos % (Auto) 0.2 % 08/20/23 18:22 Baso % (Auto) 0.3 % 08/20/23 18:22 Neut # (Auto) 8.05 K/uL (1.40-6.50) H 08/20/23 18:22 Lymph # (Auto) 0.54 K/uL (1.20-3.40) L 08/20/23 18:22 [place] # (Auto) 0.56 K/uL (0.11-0.59) 08/20/23 18:22 Eos # (Auto) 0.02 K/uL (0.00-0.50) 08/20/23 18:22 Baso # (Auto) 0.03 K/uL (0.00-0.20) 08/20/23 18: Immature Gran # (Auto) 0.37 K/uL (0.01-0.20) H 08/20/23 18:22 PT 10.8 Seconds (9.0-12.0) 08/20/23 18:22 INR 1.0 (0.9-1.1) 08/20/23 18:22 Sodium 133 mmol/L (136-145) L 08/20/23 18:22 Potassium 4.2 mmol/L (3.5-5.1) 08/20/23 18:22 Chloride 101 mmol/L (98-107) 08/20/23 18:22 Carbon Dioxide 22 mmol/L (21-32) 08/20/23 18:22 Anion Gap 10 (3-11) 08/20/23 18:22 BUN 30 mg/dl (6-23) H 08/20/23 18:22 Creatinine 0.62 mg/dl (0.6-1.4) 08/20/23 18:22 Est Cr Clr Drug Dosing 67.2 ml/min 08/20/23 18:22 Est GFR ( Amer) 101.9 ml/min 08/20/23 18:22 Est GFR (Non-Af Amer) 88.0 ml/min 08/20/23 18:22 BUN/Creatinine Ratio 48.4 (10-20) H 08/20/23 18:22 Glucose 273 mg/dl (70-99(Fasting)) H 08/20/23 18:22 Lactate 1.8 mmol/L (0.4-2.0) 08/20/23 19:57 Calcium 9.0 mg/dl (8.6-10.3) 08/20/23 18:22 Magnesium 2.0 mg/dl (1.7-2.4) 08/20/23 18:22 Total Bilirubin 0.8 mg/dl (0.2-1.0) 08/20/23 18:22 AST 25 U/L (13-39) 08/20/23 18:22 ALT 28 U/L (7-52) 08/20/23 18:22 Alkaline Phosphatase 62 U/L (34-104) 08/20/23 18:22 Troponin I High Sens 27.3 pg/ml (0-20) H 08/20/23 19:58 Total Protein 6.1 gm/dl (6.0-8.3) 08/20/23 18:22 Albumin 3.1 gm/dl (3.4-5.0) L 08/20/23 18:22 Globulin 3.0 gm/dl (2.5-4.0) 08/20/23 18:22 Albumin/Globulin Ratio 1.0 (0.9-2) 08/20/23 18:22 TSH 4.694 uIu/ml (0.300-4.500) H 08/20/23 18:22 Free T4 1.30 ng/dl (0.61-1.60) 08/20/23 18:22 Urine Color Yellow 08/20/23 22:09 Urine Appearance Clear (Clear) 08/20/23 22:09 Urine pH 5.0 (4.5-7.5) 08/20/23 22:09 Ur Specific [place] 1.031 (1.000-1.030) H 08/20/23 22:09 Urine Protein Trace (Negative) H 08/20/23 22:09 Urine Glucose (UA) 3+ (Negative) H 08/20/23 22:09 Urine Ketones Negative (Negative) 08/20/23 22:09 Urine Blood Negative (Negative) 08/20/23 22:09 Urine Nitrite Negative (Negative) 08/20/23 22:09 Urine Bilirubin Negative (Negative) 08/20/23 22:09 Urine Urobilinogen Negative (Negative) 08/20/23 22:09 Ur Leukocyte Esterase Negative (Negative) 08/20/23 22:09 Urine WBC (Auto) 0-5 /hpf (0-5) 08/20/23 22:09 Urine RBC (Auto) 0-2 /hpf (0-2) 08/20/23 22:09 U Hyaline Cast (Auto) 0-2 /lpf (0-2) 08/20/23 22:09 U Epithel Cells (Auto) 0-2 /hpf (0-2) 08/20/23 22:09 Urine Bacteria (Auto) None Seen (None Seen) 08/20/23 22:09 Adenovirus (PCR) Not Detected (NotDetected) 08/20/23 18:33 B. pertussis DNA (PCR) Not Detected (NotDetected) 08/20/23 18:33 B.parapertussis DNA PCR Not Detected (NotDetected) 08/20/23 18:33 C. pneumoniae DNA (PCR) Not Detected (NotDetected) 08/20/23 18:33 Coronavirus OC43 (PCR) Not Detected (NotDetected) 08/20/23 18:33 Coronavirus HKU1 (PCR) Not Detected (NotDetected) 08/20/23 18:33 Coronavirus 229E (PCR) Not Detected (NotDetected) 08/20/23 18:33 SARS-CoV-2 (PCR) Not Detected (NotDetected) 08/20/23 18:33 Coronavirus NL63 (PCR) Not Detected (NotDetected) 08/20/23 18:33 Human Metapneumovir PCR Not Detected (NotDetected) 08/20/23 18:33 Influenza Type A (PCR) Not Detected (NotDetected) 08/20/23 18:33 Influenza Type B (PCR) Not Detected (NotDetected) 08/20/23 18:33 M. pneumoniae (PCR) Not Detected (NotDetected) 08/20/23 18:33 Parainfluenza 1 (PCR) Not Detected (NotDetected) 08/20/23 18:33 Parainfluenza 2 (PCR) Not Detected (NotDetected) 08/20/23 18:33 Parainfluenza 3 (PCR) Not Detected (NotDetected) 08/20/23 18:33 Parainfluenza 4 (PCR) Not Detected (NotDetected) 08/20/23 18:33 RSV (PCR) Not Detected (NotDetected) 08/20/23 18:33 Entero/Rhino (PCR) Not Detected (NotDetected) 08/20/23 18:[address] 08/20/23 18:40 Exam(s): CT HEAD Without Contrast EXAM: CT Head Without Intravenous Contrast CLINICAL HISTORY: Reason for exam: weakness. TECHNIQUE: Axial computed tomography images of the head/brain without intravenous contrast. CTDI is 37.08 mGy and DLP is 547.75 mGy-cm. Automated exposure control was utilized for the study. A dose lowering technique was utilized adhering to the principles of ALARA. COMPARISON: 02/26/23 FINDINGS: Brain: There is generalized parenchymal volume loss with periventricular and deep cerebral white matter hypoattenuation, compatible with chronic small vessel ischemic change. Fields-white matter differentiation is maintained. There is no hemorrhage, mass effect, parenchymal edema, or midline shift. Ventricles: Unremarkable. No hydrocephalus. Bones/joints: Calvarium is intact. No acute fracture. Soft tissues: Unremarkable. Vasculature: Intracranial atherosclerosis. Sinuses: Unremarkable as visualized. Mastoid air cells: Unremarkable as visualized. No mastoid effusion. Orbits: Bilateral lens replacements. IMPRESSION: No acute intracranial process. Electronically signed by: Andrea Boateng M.D. 08/20/23 20:05 PM Chest X-Ray 08/20/23 18:41 XR chest 1V portable HISTORY: weakness COMPARISON: Chest 03/01/2023. FINDINGS: No pneumothorax. The heart remains mildly enlarged. A large hiatus hernia is again noted. Bibasilar linear densities persist and favor subsegmental atelectasis. Otherwise, no new focal lung consolidations to suggest a pneumonia. No evidence for pulmonary edema. No acute fractures identified. Advanced degenerative changes within the shoulders. There is a 7 cm soft tissue density superior to the left acromioclavicular joint. This is indeterminate but could be due to a fluid collection at the acromioclavicular joint related to chronic rotator cuff injury. This remains unchanged. IMPRESSION: No significant change compared to the prior study. No acute process. ACT 112: Negative or not required by law. Electronically signed by: Nathan Bland M.D. 08/20/2023 7:05 PM Diagnostic Findings EKG as per my interpretation : Rate 90, NSR, LAD, LAFB, LVH, septal infarct, T wave abnormalities lateral leads
[2023-08-21] MEDS ORDERED: PHARMACIST DISCHARGE MED REC CONSULT PRN (00:13)
[2023-08-21] MEDS ORDERED: CARBOHYDRATES FOR HYPOGLYCEMIA PO PRN (00:13)
[2023-08-21] MEDS ORDERED: PROMETHAZINE HCL 6.25 MG in SODIUM CHLORIDE 0.9% 50 ML IV PRN (00:13)
[2023-08-21] MEDS ORDERED: GLUCOSE 10 TAB/TUBE PO PRN (00:13)
[2023-08-21] MEDS ORDERED: GLUCAGON FOR INJ 1 MG VIAL SQ PRN (00:13)
[2023-08-21] MEDS ORDERED: DEXTROSE 50% 50 ML SYRINGE IV PRN (00:13)
[2023-08-21] MEDS ORDERED: GLUCOSE 40% GEL 15 GM TUBE PO PRN (00:13)
[2023-08-21] MEDS: CLOPIDOGREL BISULFATE 75 MG TAB PO ONE (00:46)
[2023-08-21] MEDS: SODIUM CHLORIDE 0.9% 1,000 ML IV ONE (00:47)
[2023-08-21] MEDS: INSULIN ASPART PER UNIT CHARGE SC SCH (00:47)
[2023-08-21] MEDS: LANTUS PER UNIT CHARGE SQ STA (00:47)
--- NOTE | 2023-08-21 02:56 | Magnetic Resonance Report ---
Exam(s): MRA HEAD Without Contrast EXAM: MR Angiography Head Without Intravenous Contrast CLINICAL HISTORY: Reason for exam: tia. TECHNIQUE: Magnetic resonance angiography images of the head without intravenous contrast. COMPARISON: No relevant prior studies available. FINDINGS: Right internal carotid artery: No acute findings. Intracranial segment is patent with no significant stenosis. No aneurysm. Right anterior cerebral artery: Unremarkable. No occlusion or significant stenosis. No aneurysm. Right middle cerebral artery: Unremarkable. No occlusion or significant stenosis. No aneurysm. Right posterior cerebral artery: Unremarkable. No occlusion or significant stenosis. No aneurysm. Right vertebral artery: Unremarkable as visualized. Left internal carotid artery: No acute findings. Intracranial segment is patent with no significant stenosis. No aneurysm. Left anterior cerebral artery: Unremarkable. No occlusion or significant stenosis. No aneurysm. Left middle cerebral artery: Unremarkable. No occlusion or significant stenosis. No aneurysm. Left posterior cerebral artery: Unremarkable. No occlusion or significant stenosis. No aneurysm. Left vertebral artery: Unremarkable as visualized. Basilar artery: Unremarkable. No occlusion or significant stenosis. No aneurysm. IMPRESSION: Negative MRA of the brain. Electronically signed by: Monica Maza MD 08/21/23 02:54 AM
--- NOTE | 2023-08-21 03:06 | Magnetic Resonance Report ---
Exam(s): MRI HEAD Without Contrast EXAM: MR Head Without Intravenous Contrast CLINICAL HISTORY: Reason for exam: tia. TECHNIQUE: Magnetic resonance images of the head/brain without intravenous contrast in multiple planes. COMPARISON: Comparison made to prior head CT from August 20, 2023. FINDINGS: Brain: Mild nonspecific white matter changes. The flow voids of the base the brain are intact. No mass. No hemorrhage. No acute infarct. Ventricles: Moderate ventriculomegaly. Bones/joints: Unremarkable. No acute fracture. Sinuses: Chronic right maxillary, ethmoid and frontal sinusitis. No acute sinusitis. Mastoid air cells: Unremarkable as visualized. No mastoid effusion. Orbits: Bilateral lens replacements. IMPRESSION: No evidence of acute intracranial pathology. Electronically signed by: Monica Maza MD 08/21/23 03:04 AM
[2023-08-21 04:56] LABS: Basophils # (auto) 0.05 K/uL (0.00-0.20); Basophils % (auto) 0.6 %; Eosinophils # (auto) 0.02 K/uL (0.00-0.50); Eosinophils % (auto) 0.2 %; Hematocrit (blood only) 45.2 % (42.0-52.0); Hemoglobin 14.6 g/dl (14.0-18.0); Immature Granulocytes # (auto) 0.37 K/uL (0.01-0.20); Immature Granulocytes % (auto) 4.2 %; Lymphocytes # (auto) 0.54 K/uL (1.20-3.40); Lymphocytes % (auto) 6.1 %; Mean Corpuscular Hemoglobin 28.2 pg (25.0-34.0); Mean Corpuscular Hgb Conc 32.3 g/dL (32.0-36.0); Mean Corpuscular Volume 87.4 fL (80.0-100.0); Mean Platelet Volume 10.3 fL (9.4-12.4); Monocytes # (auto) 0.36 K/uL (0.11-0.59); Neutrophils # (auto) 7.55 K/uL (1.40-6.50); Neutrophils % (auto) 84.9 %; Nucleated RBC # (auto) 0.03 K/uL (0.00-0.12); Nucleated RBC % (auto) 0.3 %; Platelet Count 143 K/uL (130-400); RDW Coefficient of Variation 17.9 % (11.5-14.5); RDW Standard Deviation 56.1 fL (36.4-46.3); Red Blood Count 5.17 M/uL (4.70-6.10); White Blood Count 8.89 K/ul (4.8-10.8)
[2023-08-21 05:11] LABS: Anion Gap 7 (3-11); Blood Urea Nitrogen 28 mg/dl (6-23); Calcium 8.7 mg/dl (8.6-10.3); Carbon Dioxide 26 mmol/L (21-32); Chloride 101 mmol/L (98-107); Cholesterol 129 mg/dl (0-200); Creatinine Clr Calc Pharmacy 58.9 ml/min; Est GFR (Non-African American) 83.7 ml/min; Glucose 243 mg/dl (70-99(Fasting)); HDL Cholesterol 31 mg/dl; Sodium 134 mmol/L (136-145); Triglycerides 432 mg/dl (0-150)
[2023-08-21 05:20] LABS: Troponin I High Sensitivity 32.2 pg/ml (0-20)
[2023-08-21 05:36] LABS: Chol HDL Ratio 4.2 (0-5)
[2023-08-21 07:42] LABS: Estimated Average Glucose 278 mg/dl; Hemoglobin A1C 11.3 % (4.5-5.6)
--- NOTE | 2023-08-21 09:02 | Communication Note ---
Date of Service: August 21, 2023 Pt was seen while sitting up in bed eating. States having a sore throat, difficulty swallowing. Speech Consult in place- scheduled for a video swallow tomorrow at 11AM. Pt now spiking fevers. Infectious workup repeated with Blood Cx x 2 sets, UA, CT chest, COVID/RSV/Flu testing, Strep testing, Stool Cx and c diff. Also noted wound in buttock area, picture in chart per Wound Care. CT chest noting right pneumonia. IV Zosyn started, concern for aspiration. Started on IV Vancomycin for empiric wound coverage. Please refer to History and Physical from same date of service for additional information.
--- OUTSIDE RECORDS SUMMARY | 2023-08-21 09:17 | External Medical Summary | Summary of Care ---
Author Name Unknown Organization [facility] Address [address] [place] [address] Phone [phone] Care Team Providers Care Children'S Book Author Name Role Phone Eldon Dowd MD Primary Care Provider [phone]- [phone] Reason for Visit * Reason Comments Sore Throat Pt states that he is here for sore throat since sunday, lab results, and weight loss Encounter Details Date Type Department Care Team (Late st Contact Info) Description 08/15/2023 10:50 AM EDT Office Visit [facility] [address] [place] [address] Rebecca Haines, [address] [place] [address] Sore throat (viral)*; Oral thrush Allergies Active Allergy Reactions Criticality Noted Date Comments Candesartan Cilexetil 01/04/2012 hyperkalemia Atenolol 08/21/2012 Pt was told not to take this again Other reaction(s): PT WAS TOLD NEVER TO TAKE AGAIN Candesartan High 06/13/2022 Other reaction(s): HYPERKALEMIA Lisinopril Other (Please comment) High 01/16/2014 Hypotension/ Increased creatinine Other reaction(s): INCREASED CREATININE/HYPOTENSION documented as of this encounter (statuses as of 08/15/2023) Medications Medication Sig Dispensed Refills Start Date [...] Active Additional Information Patient not taking.Reported on 07/24/2023 Carvedilol 12.5 MG Oral Tablet (Coreg)Indications: CAD (coronary artery disease),Paroxysmal atrial fibrillation (HCC) Take 1 Tablet by mouth in the morning and 1 Tablet before bedtime. 180 Tablet 3 08/25/2022 Active Metamucil Fiber Oral Tablet Chewable Take by mouth. 0 Active Terazosin HCl 2 MG Oral CapsuleIndications: HTN, goal below 150/90 TAKE ONE CAPSULE BY MOUTH AT BEDTIME 90 Capsule 3 10/11/2022 Active predniSONE 5 MG Oral Tablet (Deltasone) TAKE 1 TO 3 TABLETS BY MOUTH DAILY 100 Tablet 5 10/16/2022 10/16/2023 Active Sotalol HCl 80 MG Oral Tablet (Betapace)Indicatio ns:Paroxysmal atrial fibrillation (HCC) TAKE 1/2 TABLET BY MOUTH TWICE DAILY 90 Tablet 3 01/22/2023 01/22/2024 Active glipiZIDE ER 2.5 MG Oral Tablet Extended Release 24 Hour (glipiZIDE XL) Take 1 Tablet by mouth in the morning. 30 minutes before a meal.. 30 Tablet 5 02/19/2023 Active Additional Information Patient not taking.Reported on 06/20/2023 Isosorbide Mononitrate ER 30 MG Oral Tablet Extended Release 24 Hour (Imdur) take 1 tablet by mouth daily 30 Tablet 1 03/01/2023 Active Lidocaine 4 % External Patch (Aspercreme) apply 1 patch topically daily; may leave on for up to 12 hrs 5 Patch 1 03/01/2023 Active Additional Information Patient not taking.Reported on 07/24/2023 Acetaminophen 500 MG Oral Tablet (Tylenol) take 2 capsules by mouth three times daily as needed for pain 30 Tablet 0 03/01/2023 Active Amoxicillin 500 MG Oral Capsule (Amoxil) Take 1 Capsule by mouth in the morning and 1 Capsule at noon and 1 Capsule before bedtime. 0 Active linaGLIPtin 5 MG Oral Tablet (Tradjenta)Indicati ons:Type 2 diabetes mellitus with hemoglobin A1c goal of less than 8.0% (HCC) Take 1 Tablet by mouth in the morning. 90 Tablet 3 04/19/2023 Active Finasteride 5 MG Oral Tablet (Proscar) take one tablet BY MOUTH daily 30 Tablet 11 05/22/2023 Active Atorvastatin Calcium 80 MG Oral Tablet (Lipitor)Indication s:Encounter for long-term (current) use of other medications TAKE ONE TABLET BY MOUTH DAILY 90 Tablet 1 06/06/2023 06/05/2024 Active Nitroglycerin 0.4 MG Sublingual Tablet Sublingual (Nitrostat) Place 1 Tablet under the tongue every 5 minutes as needed for Pain, Chest. 0 Active Furosemide 40 MG Oral Tablet (Lasix)Indications: HTN, goal below 140/90,Paroxysmal atrial fibrillation (HCC),Chronic diastolic congestive heart failure (HCC) Take 40mg (1 tablet) by mouth every other day, alternate with 60mg (1.5 tablets) every other day 120 Tablet 3 06/27/2023 Active Empagliflozin 10 MG Oral Tablet (Jardiance) TAKE ONE TABLET BY MOUTH IN THE MORNING 30 Tablet 5 07/20/2023 07/19/2024 Active Fluconazole 100 MG Oral Tablet (Diflucan)Indicatio ns:Oral thrush Take 1 Tablet by mouth in the morning for 21 days. Two tablets on the first day, then One tablet once a day for 3 weeks. 22 Tablet 0 08/15/2023 09/05/2023 Active Hospital, Clinic, or Other Facility Administered Medication Ordered Dose Route Frequency Start Date End Date Status doxycycline (Vibramycin) inj 100 mgIndications:Synovial cyst of shoulder 100 mg IV Q12H 08/13/2023 08/18/2023 Active documented as of this encounter (statuses as of 08/15/2023) Active Problems Problem Noted Date Diagnosed Date [...] A1c goal of less than 8.0% 09/10/2018 Spinal stenosis of lumbar re gion with neurogenic claudication 01/10/2017 HTN, goal below 130/80 01/31/2016 CAD (coronary artery disease) 07/03/2012 Dyslipidemia 09/20/2011 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 Project # [id number], STATISTICAL METHODS PROFESSOR: Basil Everett MD. CRC: GENE Whitney. SUMMARY: To test the hypothesis that Evacetrapib 130 mg, in comparison to placebo, reduces the risk of major adverse coronary events in high-risk vascular disease patients. CONTACTS: During normal business hours, contact study staff at ; after hours System Manager via the [facility] fabricating machine operator [phone]. 24-hour Global Study Helpline: [phone]. Lipid levels should not be ordered/obtained while this subject is in the Accelerate study. Lipids are being managed in a blinded fashion. If lipid levels are inadvertently obtained, it is important that test results are NOT provided to the patient, study doctor, improvement coordinator, or other study team members. Restricted meds while in the study: 1) niacin > 250 mg, 2) gemfibrozil with a potent [id number]. Hyperglycemia 02/18/2012 01/10/2017 NSTEMI (non-ST elevated myoc [...] as of this encounter (statuses as of 08/15/2023) Immunizations Name Administration Dates Next Due COVID-19 mRNA, LNP-s, No Pre serve, 2-Dose Series (Moderna) 06/04/2020,05/07/2020 COVID-19, mRNA, LNP-s, PF, B ooster, 100mcg/0.5mg (Moderna) 01/16/2022,07/18/2021,02/14/2021 Diptheria/Tetanus (Adult) 05/03/1993 Pneumococcal Conjugate Vacc, 13 Valent (Prevnar) 11/19/2014 Pneumococcal Polysaccharide PPV23 (Pneumovax) 02/17/2005,01/31/1998 Seasonal Influenza Virus Vac cine, Unspecified Formulation 01/15/1998,12/31/1996,01/01/1996 Seasonal Influenza, PF, 6 M & above, IM , (FluLaval or Fluzone) 12/31/2019,01/02/2019,01/23/2018,01/10 Seasonal Influenza, Quadriva lent Hd (Fluzone [...] Sign Reading Time Taken Comments Blood Pressure 120/68 08/15/2023 11:06 AM EDT Pulse 107 08/15/2023 11:06 AM EDT Temperature - - Respiratory Rate 18 08/15/2023 11:06 AM EDT Oxygen Saturation 97% 08/15/2023 11:06 AM EDT Inhaled Oxygen Concentration - - Weight - - Height 172.7 cm (5' 8") 08/15/2023 11:06 AM EDT Body Mass Index - - documented in this encounter Progress Notes * Rebecca Haines, DO - 08/15/2023 11:37 AM EDT Subjective: Teodoro Arceo is a 88 year old male. Chief Complaint Patient presents with Sore Throat Pt states that he is here for sore throat since sunday, lab results, and weight loss HPI: 88 year old male presents today with his son for a sore throat. This started over 1 week ago. Has lost close to 10 lbs, unable to eat much and drink. Uncontrolled diabetes, last hba1c was over 11. He has a referral from nephrology for diabetic management. He is on Jardiance and Tradjenta. Hx of GI bleed. No blood in stool. Has A fib, not on a blood thinner. 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 Presents with his son. 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 Hypertensive kidney disease with stage 3a chronic kidney disease I12.9, N18.31 Chronic kidney disease, stage 3a ([facility]) N18.31 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 180 Tablet 3 Metamucil Fiber Oral Tablet Chewable Take by mouth. Terazosin HCl 2 MG Oral Capsule TAKE ONE CAPSULE BY MOUTH AT BEDTIME 90 Capsule 3 predniSONE 5 MG Oral Tablet (Deltasone) TAKE 1 TO 3 TABLETS BY MOUTH DAILY 100 Tablet 5 Sotalol HCl 80 MG Oral Tablet (Betapace) TAKE 1/2 TABLET BY MOUTH TWICE DAILY 90 Tablet 3 Isosorbide Mononitrate ER 30 MG Oral Tablet Extended Release 24 Hour (Imdur) take 1 tablet by mouthdaily 30 Tablet 1 Acetaminophen 500 MG Oral Tablet (Tylenol) take 2 capsules by mouth three times daily as needed forpain 30 Tablet 0 linaGLIPtin 5 MG Oral Tablet (Tradjenta) Take 1 Tablet by mouth in the morning. 90 Tablet 3 Finasteride 5 MG Oral Tablet (Proscar) take one tablet BY MOUTH daily 30 Tablet 11 Atorvastatin Calcium 80 MG Oral Tablet (Lipitor) TAKE ONE TABLET BY MOUTH DAILY 90 Tablet 1 Nitroglycerin 0.4 MG Sublingual Tablet Sublingual (Nitrostat) Place 1 Tablet under the tongue every5 minutes as needed for Pain, Chest. Furosemide 40 MG Oral Tablet (Lasix) Take 40mg (1 tablet) by mouth every other day, alternate with 60mg (1.5 tablets) every other day 120 Tablet 3 Empagliflozin 10 MG Oral Tablet (Jardiance) TAKE ONE TABLET BY MOUTH IN THE MORNING 30 Tablet 5 Fluconazole 100 MG Oral Tablet (Diflucan) Take 1 Tablet by mouth in the morning for 21 days. Two tablets on the first day, then One tablet once a day for 3 weeks. 22 Tablet 0 albuterol HFA (PROVENTIL HFA) 108 (90 BASE) MCG/ACT inhaler Use 2 puffs every 4- 6hrs as needed for wheezing/shortness of breath (Patient not taking: Reported on 07/24/2023) 1 Inhaler 3 glipiZIDE ER 2.5 MG Oral Tablet Extended Release 24 Hour (glipiZIDE XL) Take 1 Tablet by mouth in the morning. 30 minutes before a meal.. (Patient not taking: Reported on 06/20/2023) 30 Tablet 5 Lidocaine 4 % External Patch (Aspercreme) apply 1 patch topically daily; may leave on for up to 12 hrs (Patient not taking: Reported on 07/24/2023) 5 Patch 1 Amoxicillin 500 MG Oral Capsule (Amoxil) Take 1 Capsule by mouth in the morning and 1 Capsule at noon and 1 Capsule before bedtime. (Patient not taking: Reported on 05/28/2023) Current Facility-Administered Medications Medication Dose Route Frequency Provider Last Rate Last Admin doxycycline (Vibramycin) inj 100 mg 100 mg Intravenous Q12H Bette Ramirez MD Review of patient's allergies indicates: Allergen Reactions Candesartan Other reaction(s): HYPERKALEMIA Lisinopril Other (Please comment) Hypotension/ Increased creatinine Other reaction(s): INCREASED CREATININE/HYPOTENSION Atacand [Candesartan Cilexetil] hyperkalemia Atenolol Pt was told not to take this again Other reaction(s): PT WAS TOLD NEVER TO TAKE AGAIN Objective: BP 120/68 | Pulse 107 | Resp 18 | Ht 1.727 m (5' 8") | SpO2 97% | BMI 19.92 kg/m | BSA 1.69 m Physical Exam: General: alert, healthy, and no distress Oropharynx: thick white exudate on the back of his throat. No visit sores. Throat culture taken. Heart: regular rate & rhythm, no murmur, and no gallops Lungs: chest symmetric with normal AP diameter, no chest deformities noted, no chest wall tenderness, lungs clear to auscultation ASSESSMENT/PLAN: Sore throat (viral) (Primary) - STREP A SCREEN, POINT OF CARE (ENTER/EDIT) - GROUP A STREP PCR Oral thrush - Fluconazole 100 MG Oral Tablet (Diflucan); Take 1 Tablet by mouth in the morning for 21 days. Twotablets on the first day, then One tablet once a day for 3 weeks. - CULTURE, THROAT, AEROBIC (ECH ONLY) - CULTURE,FUNGUS,NON-DERM; Future; Expected date: 08/15/2023 Encouraged him to contact [facility] for an appt. Thrush in setting of uncontrolled sugars. If no better by Sunday to call office. If no improvement and still not able to eat he may need admitted. For IV treatment. Rebecca Haines DO documented in this encounter Nursing Notes * Guillermina Mora LPN - 08/15/2023 11:06 AM EDT Teodoro Arceo is a 88 year old male who presents today for Chief Complaint Patient presents with Sore Throat Pt states that he is here for sore throat since sunday, lab results, and weight loss documented in this encounter Plan of Treatment Upcoming Encounters Date Type Department Care Team (Late st Contact Info) Description 08/28/2023 11:00 AM EDT Scheduled Telephone Interventional Pain Center, [facility] [address] [address] Eulogio Nurse Phone Call Interventional Pain [facility] [address] [address] 08/29/2023 11:30 AM EDT Office Visit Orthopaedics [facility] [address] [address] Bette Ramirez MD [address] [address] 09/10/2023 11:00 AM EDT [address] [address] [facility] [address] [facility] [place] [address] 09/18/2023 11:25 AM EDT Office Visit Interventional Pain Center, [facility] [address] [facility] [place] [address] Enio Shepherd, DO [address] [place] [address] 10/11/2023 9:15 AM EDT Office Visit Orthopaedics [facility] [address] [facility] [place] [address] Jeison Arteaga, DO [address] [facility] [place] [address] 10/11/2023 10:00 AM EDT Nurse Only [facility]illary Department, [place] [address] [facility] [address] [place], [facility] [address] [facility] [address] 12/19/2023 10:00 AM EDT Office Visit Cardiology, [facility] [address] [facility] [place] [address] James Reyes, PA-C [address] [facility], [place] [address] 02/19/2024 9:00 AM EST Office Visit [facility], [place] [address] [facility] [phone] Eldon Dowd MD [address] [facility] [id number] 05/21/2024 9:00 AM EST Laboratory [facility], [place] [address] [facility] [phone] [facility] [address] [place] [address] 05/28/2024 11:00 AM EST Office Visit Hematology/Oncology [facility] [address] [facility] [place] [phone] Patricia Conway MD [address] [facility] [place] [address] 09/01/2024 1:40 PM EDT Office [facility] [address] [facility] [place] [address] Lili Rodríguez MD [address] [facility] [place] [address] Pending Results Name Type Priority Associated Diagnoses Date /Time GROUP A STREP PCR Lab Routine Sore throat (viral) 08/15/2023 11:12 AM EDT CULTURE,FUNGUS,NON-DERM Lab Routine Oral thrush 08/15/2023 12:54 PM EDT Scheduled Orders Name Type Priority Associated Diagnoses Orde r Schedule CULTURE,FUNGUS,NON-DERM Lab Routine Oral thrush Expected: 08/15/2023, Expires: 08/14/2024 Health Maintenance Due Date Last Done Comments COVID-19 Vaccine ( season) 2022 01/16/2022, 07/18/2021, 02/14/2021, Additional history exists Depression Screening 10/10/2023 10/09/2022 Diabetic Foot Exam 10/10/2023 10/09/2022, 0 08/30/2021, 10/31/2019, Additional history exists CKD PHOS USE SMARTSET 76183 12/16/202312/01, 12/12/2021, 12/02/2019, Additional history exists HbA1c 02/13/2024 08/13/2023, 09/01, 06/15/2022, Additional history exists CKD HGB USE SMARTSET 06663 05/28/202405/28, 05/28/2023, 05/22/2023, Additional history exists Diabetic Eye Exam 07/23/2024 07/24/2023, , 01/02/2020, Additional history exists Albumin/Creatinine Ratio 08/12/2024 024, 12/15/2022, 03/22/2022, Additional history exists DTaP,Tdap,and Td Vaccines [...] Procedure Name Priority Date/Time Associated Diagnosis Comments STREP A SCREEN, POINT OF CARE (ENTER/EDIT) Routine 08/15/2023 Sore throat (viral) documented in this encounter Results * STREP A SCREEN, POINT OF CARE (ENTER/EDIT) (08/15/2023) Strep A Result Negative Negative Procedural Control Valid? Yes Lot Number [id number] Expiration Date 07/10/2024 Swab Throat swab / Unknown 08/15/2023 Rebecca Haines DO LAB POINT OF CARE TE ST ENTER/EDIT ORDERABLES documented in this encounter Visit Diagnoses Diagnosis Sore throat (viral)- Primary Acute pharyngitis Oral thrush Candidiasis of mouth documented in this encounter Care Teams Children'S Book Author Relationship Specialty Start Date End Date Eldon Dowd MD [address] [place] [address] PCP - General Family Medicine 12/05/18 documented as of this encounter
--- OUTSIDE RECORDS SUMMARY | 2023-08-21 09:17 | External Medical Summary | Summary of Care ---
Author Name Unknown Organization [facility] Address [address] [place] [address] Phone [phone] Care Team Providers Care Fabric Machine Operator Name Role Phone Eldon Dowd MD Primary Care Provider +1- [phone] Reason for Visit * Reason Onset Date Comments Test Results 08/14/2023 Encounter Details Date Type Department Care Team (Late st Contact Info) Description 08/14/2023 Refill [facility] [address] [place] [address] Rebecca Haines, [address] [place] [address] Allergies Active Allergy Reactions Criticality [...] MORNING 30 Tablet 5 07/20/2023 07/19/2024 Active Hospital, Clinic, or Other Facility Administered [...] URI with cough 03/25/2014 017 Accelerate Clinical Trial*[id number] 08/27/2012 08/27/2012 Accelerate Clinical Trial*[id number] 08/27/2012 03/29/2015 Overview: ACCELERATE STUDY. Project # [id number], HURL SHAKER: Basil Everett MD. CRC: GENE Whitney. SUMMARY: To test the hypothesis that Evacetrapib 130 mg, in comparison to placebo, reduces the risk of major adverse coronary events in high-risk vascular disease patients. CONTACTS: During normal business hours, contact study staff at ; after hours Zigzag Appliquer via the [facility] hospital sulfide head operator [phone]. 24-hour Global Study Helpline: [phone]. Lipid levels should not be ordered/obtained while [...] 250 mg, 2) gemfibrozil with a potent [id number]. Hyperglycemia 02/18/2012 01/10/2017 NSTEMI (non-ST elevated myoc [...] PPV23 (Pneumovax) 02/17/2005,01/31/1998 Seasonal Influenza, PF, 6 M & above, [...] encounter Miscellaneous Notes * Telephone Encounter - Rebecca Haines DO - 08/15/2023 2:07 PM EDT Please see chart, referral section has a referral for MTM. Thank you * Telephone Encounter - Tristen Castellon [facility] - 08/14/2023 9:34 AM EDT Upcoming OV 08/14. A1C elevated, advising to increase Jardiance 25 mg once daily. Adding Ozempic? Ifadding ozempic, can discontinue trajenta. MTM refferal? Pending Prescriptions: Disp Refills Empagliflozin 25 MG Oral Tablet (Jardianc*90 Tab*3 Sig: Take 1 Tablet by mouth in the morning. Hemoglobin AIC Results: Lab Results Component Value Date/Time HEMOGLOBIN A1C - [facility] 11.0 (H) 08/13/2023 09:15 AM HEMOGLOBIN A1C - [facility] 7.5 (H) 09/21/2022 10:06 AM HEMOGLOBIN A1C - [facility] 8.5 (H) 06/15/2022 09:38 AM HEMOGLOBIN A1C - [facility] 7.3 (H) 08/29/2019 11:50 AM HEMOGLOBIN A1C - [facility] 6.4 (H) 02/18/2019 11:24 AM HEMOGLOBIN A1C - [facility] 6.6 (H) 10/30/2018 09:51 AM Tristen Cobian PharmD Clinical Pharmacist [facility] ([facility]) (formerly Telepharmacy) [phone] 08/14/2023,9:36 AM documented in this encounter Plan of Treatment Upcoming Encounters Date Type Department Care Team (Late st Contact Info) Description 08/28/2023 11:00 AM EDT Scheduled Telephone Interventional Pain Center, [facility] [address] [address] E[place]ogio Nurse Phone Call Interventional Pain [facility] [address] [address] 08/29/2023 11:30 AM EDT Office Visit Orthopaedics [facility] [address] [address] Bette Ramirez MD [address] [place] [address] 09/10/2023 11:00 AM EDT Office Visit Pharmacy, [place] [address] [facility], [place] [address] [facility] [address] [facility], [place] [address] 09/18/2023 11:25 AM EDT Office Visit Interventional Pain Center, [facility] [address] [place] [address] Enio Shepherd, DO [address] [place] [phone] 10/11/2023 9:15 AM EDT Office Visit Orthopaedics [facility] [address] [place] [address] Jeison Arteaga, DO [address] [place] [address] 10/11/2023 10:00 AM EDT Nurse Only Ancillary Department, [place] [address] [facility], [place] [address] [facility] Nurse [facility] [address] [facility], [place] [address] 12/19/2023 10:00 AM EDT Office Visit Cardiology, [facility] [address] [place] [address] James Reyes PA-C [address] [place] [address] 02/19/2024 9:00 AM EST Office Visit Family Practice, [place] [address] [facility] [phone] Eldon Dowd MD [address] [place] [facility] [place] [address] 05/21/2024 9:00 AM EST Laboratory Laboratory, [place] [address] [place] [phone] [facility] Laboratory [address] [place] [facility] [place] [address] 05/28/2024 11:00 AM EST Office Visit Hematology/Oncology [facility] [address] [place] [address] Patricia Conway MD [address] [place] [address] 09/01/2024 1:40 PM EDT Office Visit Nephrology, [facility] [address] [place] [address] Lili Rodríguez MD [address] [place] [address] Health Maintenance Due Date Last Done Comments COVID-19 Vaccine ( season) 2022 01/16/2022, 07/18/2021, 02/14/2021, Additional history exists Depression Screening 10/10/2023 10/09/2022 Diabetic Foot Exam 10/10/2023 10/09/2022, 0 08/30/2021, 10/31/2019, Additional history exists CKD PHOS USE SMARTSET 88660 12/16/202312/01, 12/12/2021, 12/02/2019, Additional history exists HbA1c 02/13/2024 08/13/2023, 09/01, 06/15/2022, Additional history exists CKD HGB USE SMARTSET 37644 05/28/202405/28, 05/28/2023, 05/22/2023, Additional history exists Diabetic [...] filedocumented as of this encounter Care Teams Fabric Machine Operator Relationship Specialty Start Date End Date Eldon Dowd MD [address] [place] [address] PCP - General Family Medicine 12/05/18 documented as of this encounter
--- OUTSIDE RECORDS SUMMARY | 2023-08-21 09:17 | External Medical Summary | Summary of Care ---
Author Name Unknown Organization [facility] Address [address] [place] [address] Phone [phone] Care Team Providers Care Hanger Off Name Role Phone Eldon Dowd MD Primary Care Provider +1- [phone] Reason for Visit * Reason Comments Sore Throat Pt states that he is here for sore throat since sunday, lab results, and weight loss Encounter Details Date Type Department Care Team (Late st Contact Info) Description 08/15/2023 10:50 AM EDT Office Visit [facility] [address] [place] [address] Rebecca Haines, [address] [place] [address] Sore throat (viral)*; Oral thrush [...] URI with cough 03/25/2014 017 Accelerate Clinical Trial*[id number] 08/27/2012 08/27/2012 Accelerate Clinical Trial*[id number] 08/27/2012 03/29/2015 Overview: ACCELERATE STUDY. Project # [id number], FREELANCE WEB DESIGNER: Basil Everett MD. CRC: GENE Whitney. SUMMARY: To test the hypothesis that Evacetrapib 130 mg, in comparison to placebo, reduces the risk of major adverse coronary events in high-risk vascular disease patients. CONTACTS: During normal business hours, contact study staff at ; after hours Dial Printer via the [facility] hospital candy depositing machine operator [phone]. 24-hour Global Study Helpline: [phone]. Lipid levels should not be ordered/obtained while this subject is in the Accelerate study. Lipids are being managed in a blinded fashion. If lipid levels are inadvertently obtained, it is important that test results are NOT provided to the patient, study doctor, parts coordinator, or other study team members. Restricted meds while in the study: 1) niacin > 250 mg, 2) gemfibrozil with a potent [id number]. 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 Thrush in setting of [...] AM EDT Scheduled Telephone Interventional Pain Center, [facility] [address] [address] Eulogio Nurse Phone Call Interventional Pain [facility] [address] [address] 08/29/2023 11:30 AM EDT Office Visit Orthopaedics [facility] [address] [address] Bette Ramirez MD [address] [address] 09/10/2023 11:00 AM EDT Office [address], [address] [facility] [place] [address] 09/18/2023 11:25 AM EDT Office Visit Interventional Pain Center, [facility] [address] [facility] [place] [address] Enio Shepherd, DO [address] [place] [address] 10/11/2023 9:15 AM EDT Office Visit Orthopaedics [facility] [address] [facility] [place] [address] Jeison Arteaga, DO [facility] [place] [address] 10/11/2023 10:00 AM EDT Nurse Only Ancillary Department, [place] [address] [facility] [address] [place], Nurse [facility] [address] [facility] [address] 12/19/2023 10:00 AM EDT Office Visit Cardiology, [facility] [address] [place] [address] James Reyes, PA-C [address] [facility], [place] [address] 02/19/2024 9:00 AM EST Office Visit Family Practice, [place] [address] [facility] [phone] Eldon Dowd MD [address] [facility] [id number] 05/21/2024 9:00 AM EST Laboratory Laboratory, [place] [address] [facility] [phone] [facility] [address] [place] [address] 05/28/2024 11:00 AM EST Office Visit Hematology/Oncology [facility] [place] [address] [facility] [place] [phone] Patricia Conway MD [address] [facility] [place] [address] 09/01/2024 1:40 PM EDT Office Visit Nephrology, [facility] [address] [facility] [place] [address] Lili Rodríguez MD [address] [facility] [place] [address] Pending Results Name Type Priority Associated Diagnoses [...] Additional history exists CKD PHOS USE SMARTSET 81564 12/16/202312/01, 12/12/2021, 12/02/2019, Additional history exists HbA1c 02/13/2024 08/13/2023, 09/01, 06/15/2022, Additional history exists CKD HGB USE SMARTSET 19419 05/28/202405/28, 05/28/2023, 05/22/2023, Additional history exists Diabetic [...] mouth documented in this encounter Care Teams Hanger Off Relationship Specialty Start Date End Date Eldon Dowd MD [address] [place] [address] PCP - General Family Medicine 12/05/18 documented as of this encounter
--- OUTSIDE RECORDS SUMMARY | 2023-08-21 09:17 | External Medical Summary | Summary of Care ---
Author Name Unknown Organization [facility] Address [address] [facility] [place] [address] Phone [phone] Care Team Providers Care Electric Appliance Installer Name Role Phone Eldon Dowd MD Primary Care Provider +1- [phone] Reason for Visit * Reason Onset Date Comments Test Results 08/16/2023 Encounter Details Date Type Department Care Team (Late st Contact Info) Description 08/16/2023 Telephone Nephrology, [facility] [address] [place] [address] Lili Rodríguez MD [address] [place] [address] Test Results Allergies Active Allergy Reactions Criticality Noted Date Comments Candesartan Cilexetil 01/04/2012 hyperkalemia Atenolol 08/21/2012 Pt was told not to take this again Other reaction(s): PT WAS TOLD NEVER TO TAKE AGAIN Candesartan High 06/13/2022 Other reaction(s): HYPERKALEMIA Lisinopril Other (Please comment) High 01/16/2014 Hypotension/ Increased creatinine Other reaction(s): INCREASED CREATININE/HYPOTENSION documented as of this encounter (statuses as of 08/16/2023) Medications Medication Sig Dispensed Refills Start Date [...] as of this encounter (statuses as of 08/16/2023) Active Problems Problem Noted Date Diagnosed Date [...] as of this encounter (statuses as of 08/16/2023) Resolved Problems Problem Noted Date Diagnosed Date Resolved Date Hypertensive kidney disease with chronic kidney disease stage III 10/30/2018 02/12/2020 Overview: Per CKD protocol 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 Project # [id number], INTERNATIONAL OPERATIONS MANAGER: Basil Everett MD. CRC: GENE Whitney. SUMMARY: To test the hypothesis that Evacetrapib 130 mg, in comparison to placebo, reduces the risk of major adverse coronary events in high-risk vascular disease patients. CONTACTS: During normal business hours, contact study staff at ; after hours Fast Foods Worker via the [facility] hospital rotor casting machine setup operator [phone]. 24-hour Global Study Helpline: [phone]. Lipid levels should not be ordered/obtained while this subject is in the Accelerate study. Lipids are being managed in a blinded fashion. If lipid levels are inadvertently obtained, it is important that test results are NOT provided to the patient, study doctor, live study manager, or other study team members. Restricted meds while in the study: 1) niacin > 250 mg, 2) gemfibrozil with a potent [id number]. Hyperglycemia 02/18/2012 01/10/2017 NSTEMI (non-ST elevated myoc [...] as of this encounter (statuses as of 08/16/2023) Immunizations Name Administration Dates Next Due COVID-19 [...] encounter Miscellaneous Notes * Telephone Encounter - Julia Rhodes LPN - 08/16/2023 3:51 PM EDT Spoke with Son Pt has apt 09/11/23 with [facility] * Telephone Encounter - Julia Rhodes LPN - 08/16/2023 3:51 PM EDT ----- Message from Lili Rodríguez MD sent at 08/14/2023 5:11 PM EDT ----- Checked hemoglobin A1c at office visit yesterday and it came back at 11%, up from 7.5% last fall. Referred patient to [facility] to work again with pharmacy on better blood sugar control. Note that they have sent a [facility] message to schedule an appointment. Please call patient's son and ensure that this follow-up appointment is being scheduled Dr. Noemí COOK documented in this encounter Plan of Treatment Upcoming Encounters Date Type Department Care Team (Late st Contact Info) Description 08/28/2023 11:00 AM EDT Scheduled Telephone Interventional Pain Center, [facility] [address] [address] Eulogio Nurse Phone Call Interventional Pain [facility] [address] [address] 08/29/2023 11:30 AM EDT Office Visit Orthopaedics [facility] [address] [address] Bette Ramirez MD [address] [place] [address] 09/10/2023 11:00 AM EDT Office [address] Pharmacy, [address] [address] [place] [facility] [address] [place] [address] [place] [address] 09/18/2023 11:25 AM EDT Office Visit Interventional Pain Center, [facility] [address] [facility] [place] [address] Enio Shepherd, DO [address] [place] [address] 10/11/2023 9:15 AM EDT Office Visit Orthopaedics [facility] [address] [facility] [place] [address] Jeison Arteaga, DO [address] [facility] [place] [address] 10/11/2023 10:00 AM EDT Nurse Only Ancillary Department, [place] [address] [facility] [address] [place] Nurse [facility] [address] [facility] [address] 12/19/2023 10:00 AM EDT Office Visit Cardiology, [facility] [address] [place] [address] James Reyes PA-C [address] [facility] [place] [address] 02/19/2024 9:00 AM EST Office Visit Family Practice, [place] [address] [facility] [phone] Eldon Dowd MD [address] [facility] [id number] 05/21/2024 9:00 AM EST Laboratory Laboratory, [place] [address] [facility] [phone] [place], Laboratory [address] [facility] [id number] 05/28/2024 11:00 AM EST Office Visit Hematology/Oncology [employer] [address] [facility] [place] [phone] Patricia Conway MD [address] [facility] [place] [address] 09/01/2024 1:40 PM EDT Office Visit Nephrology, [facility] [address] [facility] [place] [address] Lili Rodríguez MD [address] [facility] [place] [address] Health Maintenance Due Date Last Done Comments COVID-19 Vaccine (2022- season) 2022 01/16/2022, 07/18/2021, 02/14/2021, Additional history exists Depression Screening 10/10/2023 10/09/2022 Diabetic Foot Exam 10/10/2023 10/09/2022, 0 08/30/2021, 10/31/2019, Additional history exists CKD PHOS USE SMARTSET 82778 12/16/202312/01, 12/12/2021, 12/02/2019, Additional history exists HbA1c 02/13/2024 08/13/2023, 09/01, 06/15/2022, Additional history exists CKD HGB USE SMARTSET 90545 05/28/202405/28, 05/28/2023, 05/22/2023, Additional history exists Diabetic [...] filedocumented as of this encounter Care Teams Electric Appliance Installer Relationship Specialty Start Date End Date Eldon Dowd MD [address] [place] [address] PCP - General Family Medicine 12/05/18 documented as of this encounter
--- OUTSIDE RECORDS SUMMARY | 2023-08-21 09:18 | External Medical Summary ---
Author Name Unknown Address Unknown Organization K01:[facility] - [address] [facility] [address] [place] [address] Laboratory Report Ordering Provider Test Date Status ONUR LIMA 08/15/2023 12:54:09 Preliminary Observation Date Value Abnormality Reference (Units ) Status Bacteria identified in Specimen by Culture 08/15/2023 12:54:09 [id number]^CAND OSEI ALBICANS/DUBL INIENSIS Abnormal Preliminary Gail albicans/dubliniensi s Fungal Smear 08/15/2023 12:54:09 No yeast or hyphae seen. Preliminary Test: Culture, Fungus, Non-D erm
Specimen Source: Throat
Specimen Type: Swab
Specimen Date: 08/15/2023 12:54 PM
Result Date: 08/17/2023 7:25 AM
Result Status: Preliminary result
Abnormal: Yes
Resulting Lab: [facility]
[address]
[place] [id number]

CULTURE

Gail albicans/dubliniensis (Abnormal)

STAIN

No yeast or hyphae seen.

null Performing Location [facility] - [address] [facility] [address]
--- OUTSIDE RECORDS SUMMARY | 2023-08-21 09:18 | External Medical Summary | Summary of Care ---
Author Name Unknown Organization [facility] Address [address] [place] [facility] [place] [place] [address] Phone [phone] Care Team Providers Care Autotransfusionist Name Role Phone Eldon Dowd MD Primary Care Provider +1- [phone] Reason for Visit * Reason Comments Outpatient Testing Encounter Details Date Type Department Care Team (Late st Contact Info) Description 08/13/2023 9:20 AM EDT Laboratory Laboratory [facility] [address] [place] [address] [place], Lab [address]en[address] [place] [address] Encounter for long-term (current) use of medications Allergies Active Allergy Reactions Criticality Noted Date Comments Candesartan Cilexetil 01/04/2012 hyperkalemia Atenolol 08/21/2012 Pt was told not to take this again Other reaction(s): PT WAS TOLD NEVER TO TAKE AGAIN Candesartan High 06/13/2022 Other reaction(s): HYPERKALEMIA Lisinopril Other (Please comment) High 01/16/2014 Hypotension/ Increased creatinine Other reaction(s): INCREASED CREATININE/HYPOTENSION documented as of this encounter (statuses as of 08/13/2023) Medications Medication Sig Dispensed Refills Start Date [...] MORNING 30 Tablet 5 07/20/2023 07/19/2024 Active documented as of this encounter (statuses as of 08/13/2023) Active Problems Problem Noted Date Diagnosed Date [...] as of this encounter (statuses as of 08/13/2023) Resolved Problems Problem Noted Date Diagnosed Date Resolved Date Hypertensive kidney disease with chronic kidney disease stage III 10/30/2018 02/12/2020 Overview: Per CKD protocol Chest discomfort 02/23/2015 09/01/2016 Viral URI with cough 03/25/2014 017 Accelerate Clinical Trial*[id number] 08/27/2012 08/27/2012 Accelerate Clinical Trial*[id number] 08/27/2012 03/29/2015 Overview: ACCELERATE STUDY. Project # [id number], BOAT RENTAL CLERK: Basil Everett MD. CRC: GENE Whitney. SUMMARY: To test the hypothesis that Evacetrapib 130 mg, in comparison to placebo, reduces the risk of major adverse coronary events in high-risk vascular disease patients. CONTACTS: During normal business hours, contact study staff at ; after hours Dispatcher Relay via the [facility] hospital furnace charging machine operator [phone]. 24-hour Global Study Helpline: [phone]. Lipid levels should not be ordered/obtained while this subject is in the Accelerate study. Lipids are being managed in a blinded fashion. If lipid levels are inadvertently obtained, it is important that test results are NOT provided to the patient, study doctor, web coordinator, or other study team members. Restricted meds while in the study: 1) niacin > 250 mg, 2) gemfibrozil with a potent [id number]. Hyperglycemia 02/18/2012 01/10/2017 NSTEMI (non-ST elevated myoc [...] as of this encounter (statuses as of 08/13/2023) Immunizations Name Administration Dates Next Due COVID-19 [...] Care Team (Late st Contact Info) Description 08/13/2023 11:30 AM EDT Office Visit Orthopaedics [facility] [address] [address] Bette Ramirez MD [address] [address] 08/28/2023 11:00 AM EDT Scheduled Telephone Interventional Pain Center, [facility] [address] [address] [place], Nurse Phone Call Interventional Pain [facility] [address] [place], [place] [address] 09/18/2023 11:25 AM EDT Office Visit Interventional Pain Center, [facility] [address] [place] [address] Enio Shepherd, DO [address] [place] [address] 10/11/2023 9:15 AM EDT Office Visit Orthopaedics [facility] [address] [place] [address] [place] Arteaga, DO [address] [place] [address] 10/11/2023 10:00 AM EDT Nurse Only Ancillary Department, [place] [address] [address] [facility] [address] [place] Nurse Annual Wellness [address] [facility] [address] 12/19/2023 10:00 AM EDT Office Visit Cardiology, [facility] [address] [place] [address] James Reyes PAJhoana [address] [facility] [place] [address] 02/19/2024 9:00 AM EST Office Visit Family Practice, [place] [address] [address] [facility] [phone] Eldon Dowd MD [address] [facility] [address] 05/21/2024 9:00 AM EST Laboratory Laboratory, [place] [address] [address] [facility] [place] [phone] [place], Laboratory [address] [facility] [place] [address] 05/28/2024 11:00 AM EST Office Visit Hematology/Oncology [facility] [place] [address] [facility] [place] [phone] Patricia Conway MD [address] [facility] [place] [address] 09/01/2024 1:40 PM EDT Office Visit Nephrology, [facility] [address] [facility] [place] [address] Lili Rodríguez MD [address] [facility] [place] [address] Pending Results Name Type Priority Associated Diagnoses Date /Time HEMOGLOBIN A1C Lab Routine Encounter for long-term (current) use of medications 08/13/2023 9:15 AM EDT Health Maintenance Due Date Last Done Comments COVID-19 Vaccine ( season) 2022 01/16/2022, 07/18/2021, 02/14/2021, Additional history exists HbA1c 03/23/2023 09/21/2022, 05/31, 12/12/2021, Additional history exists Depression Screening 10/10/2023 10/09/2022 Diabetic Foot Exam 10/10/2023 10/09/2022, 0 08/30/2021, 10/31/2019, Additional history exists Albumin/Creatinine Ratio 12/16/202312/15/2 023, 03/22/2022, 03/30/2021, Additional history exists CKD PHOS USE SMARTSET 45718 12/16/202312/01, 12/12/2021, 12/02/2019, Additional history exists CKD HGB USE SMARTSET 87664 05/28/202405/28, 05/28/2023, 05/22/2023, Additional history exists Diabetic Eye Exam 07/23/2024 07/24/2023, , 01/02/2020, Additional history exists DTaP,Tdap,and Td Vaccines (2 [...] Diagnosis Encounter for long-term (current) use of medications Encounter for long-term (current) use of other medications documented in this encounter Care Teams Autotransfusionist Relationship Specialty Start Date End Date Eldon Dowd MD [address] [place] [address] PCP - General Family Medicine 12/05/18 documented as of this encounter
--- OUTSIDE RECORDS SUMMARY | 2023-08-21 09:18 | External Medical Summary | Summary of Care ---
Author Name Unknown Organization [facility] Address [address] [place] [address] Phone [phone] Care Team Providers Care Church History Teacher Name Role Phone Eldon Dowd MD Primary Care Provider [phone] Reason for Visit * Reason Comments Status Check Return in 4 months Encounter Details Date Type Department Care Team (Latest Contact Info) Description 07/24/2023 5:40 PM EDT Office Visit [facility] [address] [place] [address] Eldon Dowd MD [address] [place] [address] Type 2 diabetes mellitus with stage 3 chronic kidney disease, 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 assisted insulin use, 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 stage 3a or 3b CKD (HCC)*; DM type 2 nursing care encounter (HCC); Dyslipidemia; Coronary artery disease of [place] artery of [place] heart with stable angina pectoris (HCC); Paroxysmal atrial fibrillation ([facility]); Protein-calorie malnutrition, unspecified severity ([facility]); Spinal stenosis of lumbar region with neurogenic claudication; Monoclonal paraproteinemia Allergies Active Allergy Reactions Criticality Noted Date [...] URI with cough 03/25/2014 017 Accelerate Clinical Trial*[id number] 08/27/2012 08/27/2012 Accelerate Clinical Trial*[id number] 08/27/2012 03/29/2015 Overview: ACCELERATE STUDY. Project # [id number], DELIVERY TECH: Basil Everett MD. CRC: GENE Whitney. SUMMARY: To test the hypothesis that Evacetrapib 130 mg, in comparison to placebo, reduces the risk of major adverse coronary events in high-risk vascular disease patients. CONTACTS: During normal business hours, contact study staff at ; after hours [employer] Programmer via the [facility] hospital fire pot operator [phone]. 24-hour Global Study Helpline: [phone]. Lipid levels should not be ordered/obtained while [...] 250 mg, 2) gemfibrozil with a potent [id number]. Hyperglycemia 02/18/2012 01/10/2017 NSTEMI (non-ST elevated myoc [...] Sign Reading Time Taken Comments Blood Pressure 138/64 07/24/2023 5:24 PM EDT Pulse 95 07/24/2023 5:24 PM EDT Temperature 36.4 C (97.5 F) 07/24/2023 5:24 PM ED T Respiratory Rate 18 07/24/2023 5:24 PM EDT Oxygen Saturation 97% 07/24/2023 5:24 PM EDT Inhaled Oxygen Concentration - - Weight - - Height 172.7 cm (5' 8") 07/24/2023 5:24 PM EDT Body Mass Index - - documented in this encounter Patient Instructions * Patient Instructions* Porsha Foley LPN - 07/24/2023 5:38 PM EDT Images from the original note were not included. Diabetic Retinopathy: Evaluating Your Eyes Diabetic retinopathy is a condition that happens when diabetes damages blood vessels in the rear ofthe eye. It can lead to vision loss. To help catch it early, have a complete dilated eye exam at least once a year. During the exam, the eye healthcare provider will review your medical history, examine your eyes, and check your vision. Women who are and have pre-existing type 1 or type 2 diabetes have an increased risk of retinopathy. Women with diabetes should have an eye exam before or in the first trimester. They should continue to be monitored every trimester and for 1 year after delivery, depending on the severity of the retinopathy. The retina is the light-sensitive part of the eye that allows you to see. High blood sugar can damage blood vessels of the retina and cause them to leak or bleed. This damage can lead to abnormal blood vessel growth. This condition is called diabetic retinopathy. You may not have symptoms early in the disease. Later, there may be floaters, blurred vision, or poor night vision. There may also be partial or complete vision loss. Early cases of diabetic retinopathy can be treated by carefully controlling blood sugar, blood pressure, and cholesterol. Surgery or laser treatments may help restore lost vision. Laser surgery can shrink abnormal blood vessels or close ones that are leaking. Medicines injected in the eye can help decrease swelling of the retina. Home care Take all medicines, including insulin or oral diabetic medicine, exactly as prescribed. Follow the diet advised by your healthcare provider. If you have high cholesterol, follow a low-fat, low-cholesterol diet. Monitor blood sugars as advised. Try to achieve your ideal weight. If you smoke, quit smoking. Tobacco use worsens the effect of diabetes on your blood vessels. If you have high blood pressure, consider buying an automatic blood pressure machine. These are available at most pharmacies. Use this to monitor your blood pressure. Report your blood pressure readings to your healthcare provider. Exercise regularly. Follow-up care Follow up with your healthcare provider, or as advised. You must have a complete eye exam at least once a year, more often if needed. Untreated diabetic retinopathy can lead to complete loss of vision. Occupational therapists can help you adapt to any vision loss you have, including learning techniques to safely administer insulin. When to seek medical advice Call your healthcare provider right away if any of these occur. Increasing blurriness or any sudden changes in your vision Sudden flashes of light inside your eye New floaters (small dots or strings that seem to be moving across your field of vision) Eye pain, redness, or discharge from your eyelid New dark spots appearing in your field of vision Halos around lights Dimness of vision Partial or complete loss of vision Women with diabetes should have a complete eye exam before becoming , or as soon as possible when they find out they are . Retinopathy sometimes worsens during . Your eye exam Your eye healthcare provider uses an eye chart and other tools to check your vision. Then he or sheexamines your eyes for signs of disease. You are given eye drops to widen (dilate) your pupils. Youmay have one or more of the following tests: Tonometry to measure fluid pressure inside the eye. Slit lamp exam to allow the healthcare provider to view the structures of your eye. Ultrasound to create an image of the eye using sound waves. Ultrasound may be used if blood is found in the clear gel that fills the eye (vitreous). Ocular coherence tomography (OCT) to create an image of the retina using light waves. This shows ifthere is fluid leaking into certain parts of the eye. It can also measure the thickness of the retina. Fluorescein angiography This test may be done to check the health of the inside lining of the eye (retina). It also checks the tiny blood vessels (capillaries) that carry blood to the retina. During the test: Photographs are taken of the retina. A dye is then injected into the bloodstream through the arm or hand. The dye travels to the capillaries in the eye. More photographs are taken of the retina. The dye causes the capillaries to stand out on the photographs. You may feel brief nausea during the procedure. For a few hours after the test, your skin, eyes, and urine may appear yellow. Talk with your healthcare provider for more information about this test. Date Last Reviewed: 09/01/201519995298-1534 [employer]. [address] [place] [address]. All rights reserved. This information is not intended as a substitute for professional medical care. Always follow your healthcare professional's instructions. documented in this encounter Progress Notes * Eldon Dowd MD - 08/13/2023 8:02 PM EDT Subjective: Teodoro Arceo is a 88 year old male here today for Chief Complaint Patient presents with Status Check Return in 4 months Presents for routine 4 month recheck. Tolerating current meds. Reviewed most recent labs and specialist's notes. Denies chest pain, shortness of breath, cough, nausea, vomiting, abd pain, dysuria, urinary frequency, nocturia, fever, melena, hematochezia, peripheral edema. Past Medical History: Diagnosis Date CAD (coronary [...] performed by Allan Persaud, DO at OR [facility] SACROILIAC JOINT INJECT W/GUIDANCE 06/28/2022 INJECTION SACROILIAC JOINT performed by Allan Persaud, DO at OR [facility] SACROILIAC JOINT INJECT W/GUIDANCE 10/04/2022 INJECTION SACROILIAC JOINT performed by Allan Persaud, DO at OR [facility] SIGMOIDOSCOPY, DIAGNOSTIC 09/02/98 diverticulosis US ARTHROCENT ASP &/OR INJ MAJOR JX/BURSA Right 06/20/2023 ARTHROCENTESIS MAJOR JOINT OR BURSA, ASPIRATION OR INJECTION, ULTRASOUND GUIDED performed by Enio Shepherd DO at OR [facility] US ARTHROCENT ASP &/OR INJ MAJOR JX/BURSA 07/30/2023 ARTHROCENTESIS MAJOR JOINT OR BURSA, ASPIRATION OR INJECTION, ULTRASOUND GUIDED performed by Enio Shpeherd DO at OR [facility] Review of patient's allergies indicates: Allergen Reactions [...] MOUTH IN THE MORNING 30 Tablet 5 albuterol HFA (PROVENTIL HFA) [...] 100 mg Intravenous Q12H Bette Ramirez MD Objective: BP 138/64 | Pulse 95 | Temp 36.4 C (97.5 F) (Temporal Artery) | Resp 18 | Ht 1.727 m(5' 8") | SpO2 97% | BMI 22.01 kg/m | BSA 1.78 m GEN: NAD HEENT: Benign NECK: Supple with no LAD, TM, JVD CHEST: CTA B CV: RRR ABD: Soft, NT/ND, No HSM, NABS EXT: No c,c,e Assessment and Plan: Type 2 diabetes mellitus with stage 3 chronic kidney disease, 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 assisted insulinuse, 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 stage 3a or 3b CKD (HCC) (Primary) DM type 2 nursing care encounter (HCC) - TELEMEDICINE DIABETIC EYE Dyslipidemia 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 Follow up with specialists as scheduled. Follow Up: Return in about 6 months (around 01/23/2024) for recheck. | For: recheck 35 min with pt and chart review. Eldon Dowd MD * Porsha Foley LPN - 07/24/2023 5:38 PM EDT Images from the original note were not included. The importance of having a yearly diabetic eye exam has been discussed with patient. Order and/or Referral placed along with patient instructions. Provider made aware. Porsha Foley LPN The importance of having a yearly diabetic eye exam has been discussed with patient. Order and/or Referral placed along with patient instructions. Provider made aware. Porsha Foley LPN Diabetic Retinopathy: Evaluating Your Eyes Diabetic retinopathy is a condition that happens when diabetes damages blood vessels in the rear ofthe eye. It can lead to vision loss. To help catch it early, have a complete dilated eye exam at least once a year. During the exam, the eye healthcare provider will review your medical history, examine your eyes, and check your vision. Women who are and have pre-existing type 1 or type 2 diabetes have an increased risk of retinopathy. Women with diabetes should have an eye exam before or in the first trimester. They should continue to be monitored every trimester and for 1 year after delivery, depending on the severity of the retinopathy. The retina is the light-sensitive part of the eye that allows you to see. High blood sugar can damage blood vessels of the retina and cause them to leak or bleed. This damage can lead to abnormal blood vessel growth. This condition is called diabetic retinopathy. You may not have symptoms early in the disease. Later, there may be floaters, blurred vision, or poor night vision. There may also be partial or complete vision loss. Early cases of diabetic retinopathy can be treated by carefully controlling blood sugar, blood pressure, and cholesterol. Surgery or laser treatments may help restore lost vision. Laser surgery can shrink abnormal blood vessels or close ones that are leaking. Medicines injected in the eye can help decrease swelling of the retina. Home care Take all medicines, including insulin or oral diabetic medicine, exactly as prescribed. Follow the diet advised by your healthcare provider. If you have high cholesterol, follow a low-fat, low-cholesterol diet. Monitor blood sugars as advised. Try to achieve your ideal weight. If you smoke, quit smoking. Tobacco use worsens the effect of diabetes on your blood vessels. If you have high blood pressure, consider buying an automatic blood pressure machine. These are available at most pharmacies. Use this to monitor your blood pressure. Report your blood pressure readings to your healthcare provider. Exercise regularly. Follow-up care Follow up with your healthcare provider, or as advised. You must have a complete eye exam at least once a year, more often if needed. Untreated diabetic retinopathy can lead to complete loss of vision. Occupational therapists can help you adapt to any vision loss you have, including learning techniques to safely administer insulin. When to seek medical advice Call your healthcare provider right away if any of these occur. Increasing blurriness or any sudden changes in your vision Sudden flashes of light inside your eye New floaters (small dots or strings that seem to be moving across your field of vision) Eye pain, redness, or discharge from your eyelid New dark spots appearing in your field of vision Halos around lights Dimness of vision Partial or complete loss of vision Women with diabetes should have a complete eye exam before becoming , or as soon as possible when they find out they are . Retinopathy sometimes worsens during . Your eye exam Your eye healthcare provider uses an eye chart and other tools to check your vision. Then he or sheexamines your eyes for signs of disease. You are given eye drops to widen (dilate) your pupils. Youmay have one or more of the following tests: Tonometry to measure fluid pressure inside the eye. Slit lamp exam to allow the healthcare provider to view the structures of your eye. Ultrasound to create an image of the eye using sound waves. Ultrasound may be used if blood is found in the clear gel that fills the eye (vitreous). Ocular coherence tomography (OCT) to create an image of the retina using light waves. This shows ifthere is fluid leaking into certain parts of the eye. It can also measure the thickness of the retina. Fluorescein angiography This test may be done to check the health of the inside lining of the eye (retina). It also checks the tiny blood vessels (capillaries) that carry blood to the retina. During the test: Photographs are taken of the retina. A dye is then injected into the bloodstream through the arm or hand. The dye travels to the capillaries in the eye. More photographs are taken of the retina. The dye causes the capillaries to stand out on the photographs. You may feel brief nausea during the procedure. For a few hours after the test, your skin, eyes, and urine may appear yellow. Talk with your healthcare provider for more information about this test. Date Last Reviewed: 09/01/201519995151-0373 [employer]. [address] [place] [address]. All rights reserved. This information is not intended as a substitute for professional medical care. Always follow your healthcare professional's instructions. documented in this encounter Nursing Notes * Porsha Foley LPN - 07/24/2023 5:24 PM EDT The patient has been properly identified by confirmation of name and date of . Chief Complaint Patient presents with Status Check Return in 4 months Wants his prostate checked documented in this encounter Plan of Treatment Upcoming Encounters Date Type Department Care Team (Late st Contact Info) Description 08/28/2023 11:00 AM EDT Scheduled Telephone [facility], [address] [place] [address] [facility], Nurse Phone Call Interventional Pain [facility] [address] [place] [address] 08/29/2023 11:30 AM EDT [facility] [address] [place] [address] Bette Ramirez MD [address] [place] [address] 09/18/2023 11:25 AM EDT Office Visit [facility], [facility] [address] [place] [address] Enio Shepherd, DO [address] [place] [phone] 10/11/2023 9:15 AM EDT [facility] [address] [place] [address] Jeison Arteaga, DO [address] [place] [address] 10/11/2023 10:00 AM EDT Nurse Only Ancillary Department, [address] [place] [address] [place], Nurse Annual Wellness [address] [facility] [place] [address] 12/19/2023 10:00 AM EDT Office Visit Cardiology, [facility] [address] [place] [address] James Reyes PAJhoana [address] [place] [address] 02/19/2024 9:00 AM EST Office Visit Family [facility], [place] [address] [place] [facility] [place] [address] Eldon Dowd MD [address] [place] [facility] [place] [address] 05/21/2024 9:00 AM EST Laboratory Laboratory, [place] [address] [place] [facility] [place] [address] [place], Laboratory [address] [place] [facility] [place] [address] 05/28/2024 11:00 AM EST Office Visit Hematology/Oncology [facility] [place] [address] [facility] [place] [phone] Patricia Conway MD [address] [facility] [place] [address] 09/01/2024 1:40 PM EDT Office Visit Nephrology, [facility] [address] [facility] [place] [address] Lili Rodríguez MD [address] [facility] [place] [address] Health Maintenance Due Date Last Done Comments COVID-19 Vaccine ( season) 2022 01/16/2022, 07/18/2021, 02/14/2021, Additional history exists Depression Screening 10/10/2023 10/09/2022 Diabetic Foot Exam 10/10/2023 10/09/2022, 0 08/30/2021, 10/31/2019, Additional history exists CKD PHOS USE SMARTSET 36732 12/16/202312/01, 12/12/2021, 12/02/2019, Additional history exists HbA1c 02/13/2024 08/13/2023, 09/01, 06/15/2022, Additional history exists CKD HGB USE SMARTSET 97876 05/28/202405/28, 05/28/2023, 05/22/2023, Additional history exists Diabetic [...] Procedure Name Priority Date/Time Associated Diagnosis Comments TELEMEDICINE DIABETIC EYE Routine 07/24/2023 DM type 2 nursing care encounter (HCC) documented in this encounter Results * TELEMEDICINE DIABETIC EYE (07/24/2023) 07/24/2023 Eldon Dowd MD DIGITAL PHOTOGRAPH Y documented in this encounter Visit Diagnoses Diagnosis Type 2 diabetes mellitus with stage 3 chronic kidney disease, 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 terminal press operator insulin 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, 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 stage 3a or 3b CKD (HCC)- Primary DM type 2 nursing care encounter (HCC) Type II or unspecified type diabetes mellitus without mention of complication, not stated as uncontrolled Dyslipidemia Other and unspecified hyperlipidemia Coronary artery disease of [place] artery of [place] heart with stable angina pectoris (HCC) Paroxysmal atrial fibrillation (HCC) Atrial fibrillation Protein-calorie malnutrition, unspecified severity (HCC) Spinal stenosis of lumbar region with neurogenic claudication Spinal stenosis, lumbar region, with neurogenic claudication Monoclonal paraproteinemia documented in this encounter Care Teams Church History Teacher Relationship Specialty Start Date End Date Eldon Dowd MD [address] [place] [facility] [place] [address] PCP - General Family Medicine 12/05/18 documented as of this encounter
--- OUTSIDE RECORDS SUMMARY | 2023-08-21 09:18 | External Medical Summary ---
Author Name Unknown Address Unknown Organization K[facility] [place] [address] Laboratory Report Ordering Provider Test Date Status JAD VELAZQUEZ 08/13/2023 09:22:29 Final Observation Date Value Abnormality Reference (Units ) Status Color of Urine by Auto 08/13/2023 09:22:29 Yellow Light Yellow, Yellow, Dark Yellow Final Clarity, Urine 08/13/2023 09:22:29 Clear Clear Final Glucose [Mass/volume] in Urine by Automated test strip 08/13/2023 09:22:29 >=1000 Abnormal Negative (mg/dL) Final Bilirubin.total [Presence] in Urine by Automated test strip 08/13/2023 09:22:29 Negative Negative Final Ketones [Mass/volume] in Urine by Automated test strip 08/13/2023 09:22:29 Negative Negative (mg/dL) Final Specific gravity, Urine 08/13/2023 09:22:29 1.010 1.003-1.030 Final Hemoglobin [Presence] in Urine by Automated test strip 08/13/2023 09:22:29 Trace Abnormal Negative Final pH, Urine 08/13/2023 09:22:29 5.5 5.0-7.5 (Units) Final Protein [Mass/volume] in Urine by Automated test strip 08/13/2023 09:22:29 Trace Abnormal Negative (mg/dL) Final Urobilinogen [Mass/volume] in Urine by Automated test strip 08/13/2023 09:22:29 0.2 0.2, 1.0 (mg/dL) Final Nitrite [Presence] in Urine by Automated test strip 08/13/2023 09:22:29 Negative Negative Final Leukocyte esterase [Presence] in Urine by Automated test strip 08/13/2023 09:22:29 Negative Negative Final RBC, Urine 08/13/2023 09:22:29 0-2 0-2 (/HPF) Final WBC, Urine 08/13/2023 09:22:29 0-2 0-2 (/HPF) Final Bacteria [#/area] in Urine sediment by Microscopy high power field 08/13/2023 09:22:29 0-25 0-25 (/HPF) Final Performing Location [facility] [address] [place] [address]
--- OUTSIDE RECORDS SUMMARY | 2023-08-21 09:18 | External Medical Summary | Summary of Care ---
Author Name Unknown Organization [facility] Address [address] [place] [address] Phone [phone] Care Team Providers Care Pouncing Machine Operator Name Role Phone Eldon Dowd MD Primary Care Provider +1- [phone] Reason for Visit * Reason Comments Follow Up Left shoulder * Evaluate & Treat - Unlimited Visits (Within 30 days (routine)) - Pending Review Specialty Diagnoses / Procedures Referred By Urmila paniagua Referred To Contact Sports Medicine / Orthopedics Diagnoses Synovial cyst of shoulder Rotator cuff arthropathy of left shoulder Aaron Boss MD [address] [place] [address] Bette Ramirez MD [address] [place] [address] Referral ID Status Reason Start Date Expiration Date Visits Requested Visits Authorized [id number] Pending Review Specialty Services Required 08/02/[phone] Encounter Details Date Type Department Care Team (Late st Contact Info) Description 08/13/2023 11:30 AM EDT Office Visit Orthopaedics [facility] [address] [place] [address] Bette Ramirez MD [address] [place] [address] Synovial cyst of shoulder* Allergies Active Allergy Reactions Criticality Noted Date [...] URI with cough 03/25/2014 017 Accelerate Clinical Trial*[id number] 08/27/2012 08/27/2012 Accelerate Clinical Trial*[id number] 08/27/2012 03/29/2015 Overview: ACCELERATE STUDY. Project # [id number], DOBBY LOOMS PEGGER: Basil Everett MD. CRC: GENE Whitney. SUMMARY: To test the hypothesis that Evacetrapib 130 mg, in comparison to placebo, reduces the risk of major adverse coronary events in high-risk vascular disease patients. CONTACTS: During normal business hours, contact study staff at ; after hours It Disaster Recovery Manager via the [facility] oil lease operator [phone]. 24-hour Global Study Helpline: [phone]. Lipid levels should not be ordered/obtained while this subject is in the Accelerate study. Lipids are being managed in a blinded fashion. If lipid levels are inadvertently obtained, it is important that test results are NOT provided to the patient, study doctor, retail coordinator, or other study team members. Restricted meds while in the study: 1) niacin > 250 mg, 2) gemfibrozil with a potent [id number]. Hyperglycemia 02/18/2012 01/10/2017 NSTEMI (non-ST elevated myoc [...] Progress Notes * Bette Ramirez MD - 08/13/2023 12:49 PM EDT Teodoro Arceo is a 87 year old male who presents for follow up of left shoulder to [facility]. Teodoro Arceo is here with his/her son History: Chief Complaint Patient presents with Follow Up Left shoulder Nursing Notes: Tika Nye MED ASSIST 08/13/23 1135 Signed Patient presents today for left shoulder aspiration, possible doxycyline injection. I initially saw patient 11/01/2022 for left shoulder pain/lump. Presentation was consistent with a synovial cyst of the AC joint due to significant AC joint degenerative changes. He underwent aspiration and injection but unfortunately symptoms fairly rapidly returned. I would referred him to Dr. Boss for surgical options to see if there was anything that we could do to help prevent recurrence. He was continued to undergo conservative management as he wants to avoid surgery given his comorbidities the cyst remains bothersome mostly due to its large size, not because it is painful. He was undergone multiple repeat aspirations by Dr. Boss, last steroid injection performed in April. Last aspiration performed last week. The cyst returns within 24-48 sulma rs. He was referred back to me to discussed potential doxycycline injection to see if this can helpscar down the cyst and prevent recurrence. Review of systems: All others negative except those noted above in HPI. Objective: Physical Exam There were no vitals filed for this visit. Estimated body mass index is 19.92 kg/m as calculated from the following: Height as of 07/24/23: 1.727 m (5' 8"). Weight as of an earlier encounter on 08/13/23: 59.4 kg (131 lb). General: generally well-nourished and in no acute distress HEENT: normocephalic, atraumatic, sclera anicteric Psych: mood and affect normal , cooperative Card: Peripheral pulses: normal in affected extremity (s) Resp: equal chest rise, non-tachypneic, non-labored breathing Skin: no rash, normal Neuro: Coordination: normal; Sensation: normal on affected extremity (s) MSK: Shoulder exam, bilateral Inspection: mass over AC joint. No erythema or warmth. Skin intact but thin Palpation: mildly TTP left ACJ synovial cyst [...] ICD-10-CM 1. Synovial cyst of shoulder M71.319 Mr. Arceo is a very pleasant 88-year-old male who is seen today for follow up of left shoulder synovial cyst of the AC joint. Has undergone multiple aspirations and steroid injections but continues to get recurrence fairly short after. Referred to discuss doxycycline injection. Extensive discussion with the patient and his son that I have reviewed the literature on doxycycline injections for orthopedic concerns. There is no data on a doxycycline injection into a synovial cyst like Teodoro's.The majority of the data is on bursae which I have performed with fairly good results in the past. I did discuss with him that based on the data doxycycline in joint concerns it does not appear that there would be any harm to the joint in the majority of the potential side effects would be local reaction or typical side effects of doxycycline like sun sensitivity. After reviewing options with himincluding referral to a shoulder surgeon to see if there would be any operation that could be done other than a reverse total shoulder patient would like to proceed with the doxycycline injection. Written and verbal consent was obtained. See procedure note below. We will follow up via telephone call in 2 weeks. Procedure note: LEFT acromioclavicular joint Aspiration and injection Time out: Prior to injection, a [...] synovial cyst over the AC joint and 102 cc of red tinged complex synovial fluid was aspirated. Syringe was exchanged and 5.0mL 1% lidocaine and 100 mg doxycycline injected into the AC joint and visualize entered in the desired space. There wereno complications. Pressure bandage was applied Patient tolerated procedure with no significant bleeding [...] not billed for as I am in [facility]'s training phase The above assessment and plan were discussed at length. All questions were answered, and the patient expressed understanding. Bette Ramirez MD Primary Care Sports Medicine [facility] Orthopaedics [facility] [address] [place] [address] documented in this encounter Nursing Notes * Tika Nye MED ASSIST - 08/13/2023 11:34 AM EDT Patient presents today for left shoulder aspiration, possible doxycyline injection. documented in this encounter Plan of Treatment Upcoming Encounters Date Type Department Care Team (Late st Contact Info) Description 08/28/2023 11:00 AM EDT Scheduled Telephone Interventional Pain Center, [facility] [address] [place] [address] Nurse Eulogio Phone Call Interventional Pain [facility] [address] [place] [address] 08/29/2023 11:30 AM EDT Office Visit Orthopaedics [facility] [address] [place] [address] Bette Ramirez MD [address] [place] [address] 09/18/2023 11:25 AM EDT Office Visit Interventional Pain Center, [facility] [address] [place] [address] Enio Shepherd, DO [address] [place] [address] 10/11/2023 9:15 AM EDT Office Visit Orthopaedics [facility] [address] [place] [address] Jeison Arteaga, DO [address] [facility] [place] [address] 10/11/2023 10:00 AM EDT Nurse Only Ancillary Department, [place] [address] [facility] [address] [place], Nurse Annual Wellness [address] [facility] [address] 12/19/2023 10:00 AM EDT Office Visit Cardiology, [facility] [address] [facility] [place] [address] James Reyes, PA-C [address] [facility] [place], [place] [address] 02/19/2024 9:00 AM EST Office Visit Family Practice, [place] [address] [facility] [phone] Eldon Dowd MD [address] [facility] [address] 05/21/2024 9:00 AM EST Laboratory Laboratory, [place] [address] [facility] [phone] [place], [facility] [address] [facility] [place] [address] 05/28/2024 11:00 AM EST Office Visit Hematology/Oncology [facility] [place] [address] [facility] [place] [phone] Patricia Conway MD [address] [facility] [place] [address] 09/01/2024 1:40 PM EDT Office Visit Nephrology, [facility] [address] [facility] [place], [place] [address] Lili Rodríguez MD [address] [facility] [place], [place] [address] Health Maintenance Due Date Last Done Comments COVID-19 Vaccine ( season) 2022 01/16/2022, 07/18/2021, 02/14/2021, Additional history exists HbA1c 03/23/2023 09/21/2022, 05/31, 12/12/2021, Additional history exists Depression Screening 10/10/2023 10/09/2022 Diabetic Foot Exam 10/10/2023 10/09/2022, 0 08/30/2021, 10/31/2019, Additional history exists Albumin/Creatinine Ratio 12/16/20232 023, 03/22/2022, 03/30/2021, Additional history exists CKD PHOS USE SMARTSET 46526 12/16/202312/01, 12/12/2021, 12/02/2019, Additional history exists CKD HGB USE SMARTSET 05037 05/28/202405/28, 05/28/2023, 05/22/2023, Additional history exists Diabetic [...] Diagnoses Diagnosis Synovial cyst of shoulder- Primary documented in this encounter Care Teams Pouncing Machine Operator Relationship Specialty Start Date End Date Eldon Dowd MD [address] [place] [address] PCP - General Family Medicine 12/05/18 documented as of this encounter
--- OUTSIDE RECORDS SUMMARY | 2023-08-21 09:18 | External Medical Summary | Summary of Care ---
Author Name Unknown Organization [facility] Address [address] [place] [facility] [place] [place] [address] Phone [phone] Care Team Providers Care Smoke Control Supervisor Name Role Phone Eldon Dowd MD Primary Care Provider +1- [phone] Reason for Visit * Reason Comments Outpatient Testing Encounter Details Date Type Department Care Team (Late st Contact Info) Description 08/13/2023 9:20 AM EDT Laboratory Laboratory [facility] [address] [place] [address] [place], Lab Scenery [address] [place] [address] Encounter for long-term (current) use of medications [...] URI with cough 03/25/2014 017 Accelerate Clinical Trial*[id number] 08/27/2012 08/27/2012 Accelerate Clinical Trial*[id number] 08/27/2012 03/29/2015 Overview: ACCELERATE STUDY. Project # [id number], ELECTRONICS COMPUTER MECHANIC: Basil Everett MD. CRC: GENE Whitney. SUMMARY: To test the hypothesis that Evacetrapib 130 mg, in comparison to placebo, reduces the risk of major adverse coronary events in high-risk vascular disease patients. CONTACTS: During normal business hours, contact study staff at ; after hours Loader via the [facility] chlorine operator [phone]. 24-hour Global Study Helpline: [phone]. Lipid levels should not be ordered/obtained while this subject is in the Accelerate study. Lipids are being managed in a blinded fashion. If lipid levels are inadvertently obtained, it is important that test results are NOT provided to the patient, study doctor, coordinator of health services, or other study team members. Restricted meds while in the study: 1) niacin > 250 mg, 2) gemfibrozil with a potent [id number]. Hyperglycemia 02/18/2012 01/10/2017 NSTEMI (non-ST elevated myoc [...] 08/13/2023 11:30 AM EDT Office Visit Orthopaedics [facility] [address] [place] [address] Bette Ramirez MD [address] [place] [address] 08/28/2023 11:00 AM EDT Scheduled Telephone Interventional Pain Center, [facility] [address] [place] [address] [place], Nurse Phone Call Interventional Pain [facility] [address] [place], [place] [address] 09/18/2023 11:25 AM EDT Office Visit Interventional Pain Center, [facility] [address] [place] [address] Enio Shepherd, DO [address] [place] [address] 10/11/2023 9:15 AM EDT Office Visit Orthopaedics [facility] [address] [place] [address] Jeison Arteaga, DO [address] [place] [address] 10/11/2023 10:00 AM EDT Nurse Only Ancillary Department, [place] [address] [facility] [address] [place] Nurse Annual Wellness [address] [facility] [address] 12/19/2023 10:00 AM EDT Office Visit Cardiology, [facility] [address] [place] [address] James Reyes PAJhoana [address] [facility] [address] 02/19/2024 9:00 AM EST Office Visit Family Practice, [place] [address] [facility] [phone] Eldon Dowd MD [address] [facility] [address] 05/21/2024 9:00 AM EST Laboratory Laboratory, [place] [address] [facility] [place] [phone] [place], Laboratory [address] [place] [facility] [address] 05/28/2024 11:00 AM EST Office Visit Hematology/Oncology [facility] [place] [address] [facility] [place] [phone] Patricia Conway MD [address] [facility] [place] [address] 09/01/2024 1:40 PM EDT Office Visit Nephrology, [facility] [address] [facility] [place] [address] Lili Rodríguez MD [address] [facility] [place] [address] Pending Results Name Type Priority Associated Diagnoses [...] Additional history exists CKD PHOS USE SMARTSET 01403 12/16/202312/01, 12/12/2021, 12/02/2019, Additional history exists CKD HGB USE SMARTSET 51554 05/28/202405/28, 05/28/2023, 05/22/2023, Additional history exists Diabetic [...] medications documented in this encounter Care Teams Smoke Control Supervisor Relationship Specialty Start Date End Date Eldon Dowd MD [address] [place] [address] PCP - General Family Medicine 12/05/18 documented as of this encounter
--- OUTSIDE RECORDS SUMMARY | 2023-08-21 09:18 | External Medical Summary | Summary of Care ---
Author Name Unknown Organization [facility] Address [address] [place] [address] Phone [phone] Care Team Providers Care Electroless Plater Name Role Phone Eldon Dowd MD Primary Care Provider +1- [phone] Reason for Referral * Evaluate & Treat - Unlimited Visits (Within 30 days (routine)) - Pending Review Specialty Diagnoses / Procedures Referred By Contac t Referred To Contact Pharmacist / Pharmacy Diagnoses Type 2 diabetes mellitus with hemoglobin A1c goal of less than 8.0% ([facility]) Eldon Dowd MD [address] [place] [address] Referral ID Status Reason Start Date Expiration Date Visits Requested Visits Authorized [id number] Pending Review Specialty Services Required 08/13/2023 99 99 Question Answer Referral Priority Within 30 days (routine) Where should this appointment be scheduled? [facility] Referring Provider Role: Primary Care Reason for Referral: DM Target A1c: < 8 Comments Pharmacist Medication Therapy Management: Minimum frequency patient should be seen in person for medication management: as appropriate per clinical condition and patient status By my signature, I understand that my patient Teodoro Arceo will have his medication therapy managed by the [facility] Medication Therapy Disease Management Clinic ([facility]) per established policies, procedures, and protocols. I also certify that this referral may serve as an initiation of service for the management of drug therapy in the above noted patient. [facility] providers will be responsible for scheduling patient visits, obtaining appropriate laboratory studies, and adjusting medication management therapy per patient's need, in addition to those roles spelled out in the clinic policy, procedures, and drug management protocols. I understand that the service provided by the [facility] is voluntary and have informed patient that they can refuse the service at their discretion. I am aware that the [facility] Clinic will provide me with a copy of the patient encounter via my [employer]. I authorize the [facility] to carry out these activities on my behalf. I consider this program to be a necessary part of the patient's medical care. Eldon Dowd MD Reason for Visit * Reason Onset Date Comments Appointment 08/13/2023 Encounter Details Date Type Department Care Team (Late st Contact Info) Description 08/13/2023 Telephone [facility] [address] [place] [address] Eldon Dowd MD [address] [place] [address] Appointment Allergies Active Allergy Reactions Criticality Noted Date [...] URI with cough 03/25/2014 017 Accelerate Clinical Trial*[id number] 08/27/2012 08/27/2012 Accelerate Clinical Trial*[id number] 08/27/2012 03/29/2015 Overview: ACCELERATE STUDY. Project # [id number], TELEMETRY NURSE: Basil Everett MD. CRC: GENE Whitney. SUMMARY: To test the hypothesis that Evacetrapib 130 mg, in comparison to placebo, reduces the risk of major adverse coronary events in high-risk vascular disease patients. CONTACTS: During normal business hours, contact study staff at ; after hours Web Manager via the [facility] roll table operator [phone]. 24-hour Global Study Helpline: [phone]. Lipid levels should not be ordered/obtained while this subject is in the Accelerate study. Lipids are being managed in a blinded fashion. If lipid levels are inadvertently obtained, it is important that test results are NOT provided to the patient, study doctor, clinical program coordinator, or other study team members. Restricted meds while in the study: 1) niacin > 250 mg, 2) gemfibrozil with a potent [id number]. Hyperglycemia 02/18/2012 01/10/2017 NSTEMI (non-ST elevated myoc [...] Telephone Encounter - Carmenza Kerr RPh - 08/13/2023 9:17 AM EDT Request from Nephrology for MTM to re-engage with patient for DM management.. Please place referral if agreeable. I can also request the referral from nephro- let me know your preference. Thanks! Carmenza Kerr, PharmD, BCACP Clinical Pharmacist Medication Therapy Disease Management 08/13/2023, 9:18 AM * Telephone Encounter - Shiva Rodrigues OSA - 08/13/2023 9:09 AM EDT Pt needs appointment with MTM. Please assist with scheduling an appointment documented in this encounter Plan of Treatment Upcoming Encounters Date Type Department Care Team (Late st Contact Info) Description 08/13/2023 11:30 AM EDT Office Visit Orthopaedics [facility] [address] [place] [address] Bette Ramirez MD [address] [place] [address] 08/28/2023 11:00 AM EDT Scheduled Telephone Interventional Pain Center, [facility] [address] [facility] [place] [address] [place], Nurse Phone Call Interventional Pain [facility] [address] [place] [address] 09/18/2023 11:25 AM EDT Office Visit Interventional Pain Center, [facility] [address] [facility] [place] [address] Enio Shepherd, DO [address] [place] [phone] 10/11/2023 9:15 AM EDT Office Visit Orthopaedics [facility] [address] [facility] [place] [address] Jeison Arteaga, DO [address] [place] [address] 10/11/2023 10:00 AM EDT Nurse Only Ancillary Department, [place] [address] [facility] [address] [place], Nurse Annual Wellness [address] [facility], [place] [address] 12/19/2023 10:00 AM EDT Office Visit Cardiology, [facility] [address] [facility] [place] [address] James Reyes PA-C [address] [place] [address] 02/19/2024 9:00 AM EST Office Visit [facility], [place] [address] [place] [facility] [place] [phone] Eldon Dowd MD [address] [place], [place] [phone] 05/21/2024 9:00 AM EST Laboratory Laboratory, [place] [address] [place] [address] [facility] [address] [place], [place] [phone] 05/28/2024 11:00 AM EST Office Visit Hematology/Oncology [facility] [address] [facility] [place] [phone] Patricia Conway MD [address] [facility] [place] [address] 09/01/2024 1:40 PM EDT Office Visit Nephrology, [facility] [address] [facility] [place] [address] Lili Rodríguez MD [address] [facility] [place] [address] Scheduled Referrals Name Type Priority Associated Diagnoses Orde r Schedule PHARMACIST MEDS THERAPY MGMT REFERRAL OP Referral Within 30 days (routine) Type 2 diabetes mellitus with hemoglobin A1c goal of less than 8.0% (HCC) Ordered: 08/13/2023 Health Maintenance Due Date Last Done Comments COVID-19 Vaccine (2022- season) 2022 01/16/2022, 07/18/2021, 02/14/2021, Additional history exists HbA1c 03/23/2023 09/21/2022, 05/31, 12/12/2021, Additional history exists Depression Screening 10/10/2023 10/09/2022 Diabetic Foot Exam 10/10/2023 10/09/2022, 0 08/30/2021, 10/31/2019, Additional history exists Albumin/Creatinine Ratio 12/16/2023 023, 03/22/2022, 03/30/2021, Additional history exists CKD PHOS USE SMARTSET 55580 12/16/202312/01, 12/12/2021, 12/02/2019, Additional history exists CKD HGB USE SMARTSET 12182 05/28/202405/28, 05/28/2023, 05/22/2023, Additional history exists Diabetic [...] goal of less than 8.0% (HCC)- Primary documented in this encounter Care Teams Electroless Plater Relationship Specialty Start Date End Date Eldon Dowd MD [address] [place] [address] PCP - General Family Medicine 12/05/18 documented as of this encounter
--- OUTSIDE RECORDS SUMMARY | 2023-08-21 09:18 | External Medical Summary ---
Author Name Unknown Address Unknown Organization K01[facility] [place] [address] [place] [address] Laboratory Report Ordering Provider Test Date Status HEATHER YOUNG 08/13/2023 09:15:53 Final Observation Date Value Abnormality Reference (Units ) Status HbA1C 08/13/2023 09:15:53 11.0 Above high normal 4. 0-5.6 (%) Final The use of HbA1c to monitor glycemic status is based on normal hemoglobin and HbA composition. This test should not be used in patients with abnormal hemoglobin that affects the half life of the red blood cell or the in vivo glycation rates. Glucose, estimated average 08/13/2023 09:15:53 269 Above high normal <126 (mg/dL) Blayne cuba Performing Location [facility] [place] [address] [place] [address]
--- OUTSIDE RECORDS SUMMARY | 2023-08-21 09:18 | External Medical Summary ---
Author Name Unknown Address Unknown Organization K01:[facility] [place] [address] [place] [address] Laboratory Report Ordering Provider Test Date Status [address] 08/13/2023 09:22:29 Final Normal: <30 mg/g creatinine< br/>High: 30-300 mg/g creatinine
Very High: >300 mg/g creatinine
Nephrotic: >2200 mg/g creatinine Observation Date Value Abnormality Reference (Units ) Status Albumin, Urine 08/13/2023 09:22:29 7.67 (mg/dL) Final Creatinine, Urine 08/13/2023 09:22:29 30 (mg/dL) Final Albumin/Creatinine [Mass Ratio] in Urine 08/13/2023 09:22:29 256 Above high normal <30 (mg/g Creat) Final Performing Location [facility] [place] [address] [place] [address]
--- OUTSIDE RECORDS SUMMARY | 2023-08-21 09:18 | External Medical Summary | Summary of Care ---
Author Name Unknown Organization [facility] Address [address] [place] [address] Phone [phone] Care Team Providers Care Nutrient Management Specialist Name Role Phone Eldon Dowd MD Primary Care Provider [phone]- [phone] Reason for Referral * Evaluate & Treat - Unlimited Visits (Within 30 days (routine)) - Pending Review Specialty Diagnoses / Procedures Referred By Contac t Referred To Contact Pharmacist / Pharmacy Diagnoses Type 2 diabetes mellitus with hemoglobin A1c goal of less than 8.0% ([facility]) Eldon Dowd MD [address] [place] [address] Referral ID Status Reason Start Date Expiration Date Visits Requested Visits Authorized [id number] Pending Review Specialty Services Required 08/13/2023 99 99 Question Answer Referral Priority Within 30 days (routine) Where should this appointment be scheduled? [facility] Referring Provider Role: Primary Care Reason for Referral: DM Target A1c: < 8 Comments Pharmacist Medication Therapy Management: Minimum frequency patient should be seen in person for medication management: as appropriate per clinical condition and patient status By my signature, I understand that my patient Teodoro Arceo will have his medication therapy managed by the [facility] Medication Therapy [facility] ([facility]) per established policies, procedures, and protocols. I also certify that this referral may serve as an initiation of service for the management of drug therapy in the above noted patient. [facility] providers will be responsible for scheduling patient visits, obtaining appropriate laboratory studies, and adjusting medication management therapy per patient's need, in addition to those roles spelled out in the clinic policy, procedures, and drug management protocols. I understand that the service provided by the [facility] is voluntary and have informed patient that they can refuse the service at their discretion. I am aware that the [facility] Clinic will provide me with a copy of the patient encounter via my Collect Infitogram. I authorize the [facility] to carry out these activities on my behalf. I consider this program to be a necessary part of the patient's medical care. Eldon Dowd MD Reason for Visit * Reason Onset Date Comments Appointment 08/13/2023 Encounter Details Date Type Department Care Team (Late st Contact Info) Description 08/13/2023 Telephone [facility] [address] [place] [address] Eldon Dowd MD [address] [place] [address] Appointment Allergies Active Allergy Reactions [...] URI with cough 03/25/2014 017 Accelerate Clinical Trial*[id number] 08/27/2012 08/27/2012 Accelerate Clinical Trial*[id number] 08/27/2012 03/29/2015 Overview: ACCELERATE STUDY. Project # [id number], ANTHROPOLOGY DEPARTMENT CHAIR: Basil Everett MD. CRC: GENE Whitney. SUMMARY: To test the hypothesis that Evacetrapib 130 mg, in comparison to placebo, reduces the risk of major adverse coronary events in high-risk vascular disease patients. CONTACTS: During normal business hours, contact study staff at ; after hours Fiberglass Tube Molder via the [facility] locomotive operator helper [phone]. 24-hour Global Study Helpline: [phone]. Lipid levels should not be ordered/obtained while this subject is in the Accelerate study. Lipids are being managed in a blinded fashion. If lipid levels are inadvertently obtained, it is important that test results are NOT provided to the patient, study doctor, coding quality coordinator, or other study team members. Restricted meds while in the study: 1) niacin > 250 mg, 2) gemfibrozil with a potent [id number]. Hyperglycemia 02/18/2012 01/10/2017 NSTEMI (non-ST elevated myoc [...] AM EDT Scheduled Telephone Interventional Pain Center, [facility] [address] [place] [address] Eulogio Nurse Phone Call Interventional Pain [facility] [address] [place] [address] 08/29/2023 11:30 AM EDT Office Visit Orthopaedics [facility] [address] [place] [address] Bette Ramirez MD [address] [place] [address] 09/18/2023 11:25 AM EDT Office Visit Interventional Pain Center, [facility] [address] [place] [address] Enio Shepherd, DO [address] [place] [phone] 10/11/2023 9:15 AM EDT Office Visit Orthopaedics [facility] [address] [place] [address] Jeison Arteaga, DO [address] [place] [address] 10/11/2023 10:00 AM EDT Nurse Only Ancillary Department, [place] [address] [facility] [address] [place], Nurse Annual Wellness [address] [facility], [place] [address] 12/19/2023 10:00 AM EDT Office Visit Cardiology, [facility] [address] [place] [address] James Reyes PA-C [address] [place] [address] 02/19/2024 9:00 AM EST Office Visit [facility], [place] [address] [place] [place] [phone] Eldon Dowd MD [address], [place] [phone] 05/21/2024 9:00 AM EST Laboratory Laboratory, [place] [address] [place] [address] [facility] [address], [place] [id number] 05/28/2024 11:00 AM EST Office Visit Hematology/Oncology [facility] [address] [place] [phone] Patricia Conway MD [address] [place] [address] 09/01/2024 1:40 PM EDT Office Visit Nephrology, [facility] [address] [place] [address] Lili Rodríguez MD [address] [place] [address] Scheduled Referrals Name Type Priority Associated Diagnoses [...] Additional history exists CKD PHOS USE SMARTSET 05927 12/16/202312/01, 12/12/2021, 12/02/2019, Additional history exists CKD HGB USE SMARTSET 95831 05/28/202405/28, 05/28/2023, 05/22/2023, Additional history exists Diabetic [...] Primary documented in this encounter Care Teams Nutrient Management Specialist Relationship Specialty Start Date End Date Eldon Dowd MD [address] [place] [address] PCP - General Family Medicine 12/05/18 documented as of this encounter
--- OUTSIDE RECORDS SUMMARY | 2023-08-21 09:18 | External Medical Summary ---
Author Name Unknown Address Unknown Organization K01:LABORATORY [address] [facility] [address] Laboratory Report Ordering Provider Test Date Status ONUR LIMA 08/15/2023 11:12:58 Final Observation Date Value Abnormality Reference (Units) Status Streptococcus pyogenes DNA [Presence] in Throat by JOSE M with probe detection 08/15/2023 11:12:58 Negative. No Group A Streptococcus detected by PCR (amplified probe). Negative Final This test was developed and its performance characteristics determined by [facility]. It has not been cleared or approved by the FDA. The laboratory is regulated under CLIA as qualified to perform high- complexity testing. This test is used for clinical purposes. It should not be regarded as investigational or for research. Performing Location LABORATORY [place] [address] [address] [facility] [address] [facility] [address]
--- OUTSIDE RECORDS SUMMARY | 2023-08-21 09:19 | External Medical Summary ---
Author Name Unknown Address Unknown Organization : Laboratory Report Ordering Provider Test Date Status JAD VELAZQUEZ 08/13/2023 09:15:53 Final Observation Date Value Abnormality Reference (Units ) Status Cystatin C [Mass/volume] in Serum or Plasma 08/13/2023 09:15:53 1.50 Above high normal 0.52-1.13 (mg/L) Final Glomerular filtration rate/1.73 sq M.predicted [Volume Rate/Area] in Serum, Plasma or Blood by Cystatin-based formula 08/13/2023 09:15:53 40 Below low normal >=60 Final REFERENCE RANGE:>=60 mL/min/ 1.73mE2

Test Performed at:
[facility]
[address]
[place] [address]
Nathan Lewis M.D., Ph.D.,Director of Laboratories Performing Location
--- OUTSIDE RECORDS SUMMARY | 2023-08-21 09:19 | External Medical Summary | Summary of Care ---
Author Name Unknown Organization [facility] Address [address] [facility] [place] [address] Phone [phone] Care Team Providers Care Casket Inspector Name Role Phone Eldon Dowd MD Primary Care Provider [phone]- [phone] Reason for Referral * Evaluate & Treat - Unlimited Visits (Within 30 days (routine)) - Pending Review Specialty Diagnoses / Procedures Referred By Urmila paniagua Referred To Contact Sports Medicine / Orthopedics Diagnoses Synovial cyst of shoulder Rotator cuff arthropathy of left shoulder Aaron Boss MD [address] [place] [address] Bette Ramirez MD [address] [place] [address] Referral ID Status Reason Start Date Expiration Date Visits Requested Visits Authorized [id number] Pending Review Specialty Services Required 08/02/2023 999 999 Question Answer What body part is the patient being seen for? Shoulder What condition is the patient being seen for? Arthritis including related infection Referral Priority Within 30 days (routine) Where should this appointment be scheduled? [facility] Comments Aspiration /possible doxycycline injection Reason for Visit * Reason Comments Follow Up Left shoulder Encounter Details Date Type Department Care Team (Late st Contact Info) Description 08/02/2023 9:45 AM EDT Office Visit Orthopaedics [facility] [address] [place] [address] Aaron Boss MD [address] [place] [address] Synovial cyst of shoulder*; Rotator cuff [...] as of this encounter (statuses as of 08/02/2023) Medications Medication Sig Dispensed Refills Start Date [...] as of this encounter (statuses as of 08/02/2023) Active Problems Problem Noted Date Diagnosed Date [...] as of this encounter (statuses as of 08/02/2023) Resolved Problems Problem Noted Date Diagnosed Date Resolved Date Hypertensive kidney disease with chronic kidney disease stage III 10/30/2018 02/12/2020 Overview: Per CKD protocol Chest discomfort 02/23/2015 09/01/2016 Viral URI with cough 03/25/2014 017 Accelerate Clinical Trial*[id number] 08/27/2012 08/27/2012 Accelerate Clinical Trial*[id number] 08/27/2012 03/29/2015 Overview: ACCELERATE STUDY. Project # [id number], DISTRIBUTION TRANSFORMER ASSEMBLER: Basil Everett MD. CRC: GENE Whitney. SUMMARY: To test the hypothesis that Evacetrapib 130 mg, in comparison to placebo, reduces the risk of major adverse coronary events in high-risk vascular disease patients. CONTACTS: During normal business hours, contact study staff at ; after hours Clock Assembler via the [facility] hospital pug mill operator [phone]. 24-hour Global Study Helpline: [phone]. Lipid levels should not be ordered/obtained while this subject is in the Accelerate study. Lipids are being managed in a blinded fashion. If lipid levels are inadvertently obtained, it is important that test results are NOT provided to the patient, study doctor, early childhood services coordinator, or other study team members. Restricted meds while in the study: 1) niacin > 250 mg, 2) gemfibrozil with a potent [id number]. Hyperglycemia 02/18/2012 01/10/2017 NSTEMI (non-ST elevated myoc [...] as of this encounter (statuses as of 08/02/2023) Immunizations Name Administration Dates Next Due COVID-19 [...] Progress Notes * Aaron Boss MD - 08/02/2023 9:19 AM EDT ORTHOPAEDIC SURGERY - [facility] Note Teodoro Arceo is a 88 year old male. Chief Complaint Patient presents with Follow Up Left shoulder ASSESSMENT: M71.319 Synovial cyst of shoulder (primary encounter diagnosis) M12.812 Rotator cuff arthropathy of left shoulder PLAN: We discussed the diagnosis and treatment options with the patient today. At this time we will recommend that the patient undergo aspiration of the AC joint cyst. Patient may benefit from seeing Dr. Ramirez to discuss possible aspiration with doxycycline injection. If patient continues to have symptoms he may benefit from seeing Dr. Damico for possible management of the rotator cuff arthropathy. Follow Up: Return Follow up with Dr. Ramirez for left shoulder aspiration/possible doxy. There are no Patient Instructions on file for this visit. Injection Procedure Note: LEFT Shoulder: Time out: Prior to aspiration, a time out was called to confirm the administration of appropriate medicine, patient name, procedure and confirm to the best of our ability and knowledge the presence of any necessary risks and benefits. Patient verbalizes understanding. Consent obtained. Sterile techinique applied. Skin was prepped with Hibiclens swab. The left AC joint cyst was aspirated using 18 gauge needle. 90 mL of yellow viscous fluid was removed from the cyst region. Patient tolerated the procedure well. A compression dressing was then applied. Patient instructed to call or return to clinic for fever or warmth and redness at injection site for potential infection. Patient also advised as to potential for steroid flare reaction including increased pain and redness at injection site which should be treated with ice and resolve within 24 hours. HPI: Teodoro Arceo presents today for follow up. He presents today with increased swelling over the shoulder region. He denies any significant pain. He states it has been getting bigger slowly since his last aspiration. He denies any new injury. He does use his upper extremities for his transfers and activities. Parathesia negative: Calf pain negative: Fevers or [...] taking: Reported on 07/24/2023) 1 Inhaler 3 Carvedilol 12.5 MG Oral Tablet (Coreg) [...] BY MOUTH TWICE DAILY 90 Tablet 3 glipiZIDE ER 2.5 MG Oral Tablet Extended Release 24 Hour (glipiZIDE XL) Take 1 Tablet by mouth in the morning. 30 minutes before a meal.. (Patient not taking: Reported on 06/20/2023) 30 Tablet 5 Isosorbide Mononitrate ER 30 MG Oral Tablet Extended Release 24 Hour (Imdur) take 1 tablet by mouthdaily 30 Tablet 1 Lidocaine 4 % External Patch (Aspercreme) apply 1 patch topically daily; may leave on for up to 12 hrs (Patient not taking: Reported on 07/24/2023) 5 Patch 1 Acetaminophen 500 MG Oral Tablet (Tylenol) take 2 capsules by mouth three times daily as needed forpain 30 Tablet 0 Amoxicillin 500 MG Oral Capsule (Amoxil) Take 1 Capsule by mouth in the morning and 1 Capsule at noon and 1 Capsule before bedtime. (Patient not taking: Reported on 05/28/2023) linaGLIPtin 5 MG Oral Tablet (Tradjenta) Take [...] left shoulder. There is evidence of a large cyst over the AC joint region. There is no evidence of drainage. There is no evidence of erythema. Patient has no pain with range of motion of the shoulder. There is crepitus with range of motion. Strength is limited. Aaron Boss MD Orthopaedics [address] [address] Orthopedic Sports Medicine Surgery 08/02/2023 9:19 AM This chart was completed in part utilizing [employer] Speech Voice Recognition Software. Grammatical errors, random [...] Nursing Notes * Shilpa Huddleston LPN - 08/02/2023 8:47 AM EDT 6 weeks follow up Synovial cyst of left shoulder. Pt and son state cyst is getting larger. Shilpa Díaz LPN documented in this encounter Plan of Treatment Upcoming Encounters Date Type Department Care Team (Late st Contact Info) Description 08/13/2023 8:00 AM EDT Office Visit Nephrology, [facility] [address] [place] [address] Lili Rodríguez MD [address] [facility] [place] [address] 08/13/2023 11:30 AM EDT Office Visit Orthopaedics [facility] [address] [place] [address] Bette Ramirez MD [address] [place] [address] 08/28/2023 11:00 AM EDT Scheduled Telephone Interventional Pain Center, [facility] [address] [place] [address] [place], Nurse Phone Call Interventional Pain [facility] [address] [place] [address] 09/18/2023 11:25 AM EDT Office Visit Interventional Pain Center, [facility] [address] [place] [address] Enio Shepherd DO [address] [place] [phone] 10/11/2023 9:15 AM EDT Office Visit Orthopaedics [facility] [address] [facility] [place] [address] Jeison Arteaga DO [address] [facility] [place] [address] 10/11/2023 10:00 AM EDT Nurse Only Ancillary Department, [place] [address] [facility] [address] [place], Nurse Annual Wellness [address] [place] [address] 12/19/2023 10:00 AM EDT Office Visit Cardiology, [facility] [address] [facility] [place] [address] James Reyes PA-C [address] [facility] [place] [address] 02/19/2024 9:00 AM EST Office Visit Family Practice, [place] [address] [facility] [address] Eldon Dowd MD [address] [facility] [place] [address] 05/21/2024 9:00 AM EST Laboratory Laboratory, [place] [address] [place] [facility] [place] [address] [facility] [address] [place] [address] 05/28/2024 11:00 AM EST Office Visit Hematology/Oncology [facility] [address] [phone] Patricia Conway MD [address] [place] [address] Scheduled Referrals Name Type Priority Associated Diagnoses Orde r Schedule SPORTS MEDICINE REFERRAL OP Referral Within 30 days (routine) Synovial cyst of shoulder Rotator cuff arthropathy of left shoulder Ordered: 08/02/2023 Health Maintenance Due Date Last Done Comments COVID-19 Vaccine ( season) 2022 01/16/2022, 07/18/2021, 02/14/2021, Additional history exists HbA1c 03/23/2023 09/21/2022, 05/31, 12/12/2021, Additional history exists Depression Screening 10/10/2023 10/09/2022 Diabetic Foot Exam 10/10/2023 10/09/2022, 0 08/30/2021, 10/31/2019, Additional history exists Albumin/Creatinine Ratio 12/16/2023 023, 03/22/2022, 03/30/2021, Additional history exists CKD PHOS USE SMARTSET 25338 12/16/202312/01, 12/12/2021, 12/02/2019, Additional history exists CKD HGB USE SMARTSET 54924 05/28/202405/28, 05/28/2023, 05/22/2023, Additional history exists Diabetic [...] shoulder documented in this encounter Care Teams Casket Inspector Relationship Specialty Start Date End Date Eldon Dowd MD [address] [place] [address] PCP - General Family Medicine 12/05/18 documented as of this encounter
--- OUTSIDE RECORDS SUMMARY | 2023-08-21 09:19 | External Medical Summary | Summary of Care ---
Author Name Unknown Organization [facility] Address [address] [place] [address] Phone [phone] Care Team Providers Care Stove Installer Name Role Phone Eldon Dowd MD Primary Care Provider +1- [phone] Reason for Visit * Reason Onset Date Comments Scan To Read 07/24/2023 Encounter Details Date Type Department Care Team (Late st Contact Info) Description 07/24/2023 Telephone [facility] [address] [place] [address] Eldon Dowd MD [address] [place] [address] Scan To Read Allergies Active Allergy Reactions Criticality Noted Date Comments Candesartan Cilexetil 01/04/2012 hyperkalemia Atenolol 08/21/2012 Pt was told not to take this again Other reaction(s): PT WAS TOLD NEVER TO TAKE AGAIN Candesartan High 06/13/2022 Other reaction(s): HYPERKALEMIA Lisinopril Other (Please comment) High 01/16/2014 Hypotension/ Increased creatinine Other reaction(s): INCREASED CREATININE/HYPOTENSION documented as of this encounter (statuses as of 07/25/2023) Medications Medication Sig Dispensed Refills Start Date [...] as of this encounter (statuses as of 07/25/2023) Active Problems Problem Noted Date Diagnosed Date [...] as of this encounter (statuses as of 07/25/2023) Resolved Problems Problem Noted Date Diagnosed Date Resolved Date Hypertensive kidney disease with chronic kidney disease stage III 10/30/2018 02/12/2020 Overview: Per CKD protocol Chest discomfort 02/23/2015 09/01/2016 Viral URI with cough 03/25/2014 017 Accelerate Clinical Trial*[id number] 08/27/2012 08/27/2012 Accelerate Clinical Trial*[id number] 08/27/2012 03/29/2015 Overview: ACCELERATE STUDY. Project # [id number], SCRATCHER TENDER: Basil Everett MD. CRC: GENE Whitney. SUMMARY: To test the hypothesis that Evacetrapib 130 mg, in comparison to placebo, reduces the risk of major adverse coronary events in high-risk vascular disease patients. CONTACTS: During normal business hours, contact study staff at ; after hours Certified Genetic Counselor via the [facility] degreasing wheel operator [phone]. 24-hour Global Study Helpline: [phone]. Lipid levels should not be ordered/obtained while this subject is in the Accelerate study. Lipids are being managed in a blinded fashion. If lipid levels are inadvertently obtained, it is important that test results are NOT provided to the patient, study doctor, plant operations coordinator, or other study team members. Restricted meds while in the study: 1) niacin > 250 mg, 2) gemfibrozil with a potent [id number]. Hyperglycemia 02/18/2012 01/10/2017 NSTEMI (non-ST elevated myoc [...] as of this encounter (statuses as of 07/25/2023) Immunizations Name Administration Dates Next Due COVID-19 [...] encounter Miscellaneous Notes * Telephone Encounter - Marino Garcia MD - 07/25/2023 7:37 AM EDT Retinal Scan Imaging Teodoro Arceo [id number] Retinal Scan Interpretation: There is no retinopathy in both eyes Diabetes Retinal Imaging Care Plan: The retinal scan results are normal - I will forward this encounter to the Ophthalmology DM Letter Pool [[id number]], they will send a normal retinal scan letter to the patient, and the patient will be seen back for a yearly scan. Marino Garcia MD 07/25/2023 7:37 AM * Telephone Encounter - Porsha Foley LPN - 07/24/2023 5:39 PM EDT A Diabetic Telemed Eye image was taken and requires your interpretation for Dr Dowd. Please check your inbasket for image. Patient prefers to be seen at [facility] if a follow-up appointment is needed. documented in this encounter Plan of Treatment Upcoming Encounters Date Type Department Care Team (Latest Contact Info) Description 07/30/2023 8:00 AM EDT Hospital Encounter [facility], Operating Room [facility] [address] [place] [phone] Enio Shepherd, DO [address] [place] [phone] 07/30/2023 8:00 AM EDT - 07/30/2023 8:25 AM EDT Surgery OR [facility], Operating Room [facility] [address] [place] [phone] Enio Shepherd, DO [address] [place] [phone] ARTHROCENTESIS OR INJECTION MAJOR JOINT 08/13/2023 8:00 AM EDT Office Visit Nephrology, [facility] [address] [facility] [place] [address] Lili Rodríguez MD [address] [place] [address] 09/18/2023 11:25 AM EDT Office Visit Interventional Pain Center, [facility] [address] [place] [address] Enio Shepherd, DO [address] [place] [phone] 10/11/2023 9:15 AM EDT Office Visit Orthopaedics [facility] [address] [facility] [place] [address] Je[facility]teaga DO [facility] [address] 10/11/2023 10:00 AM EDT Nurse Only Ancillary Department, [place] [address] [place] [facility] [place] [address] [place], Nurse [facility] [address] [place] [address] 12/19/2023 10:00 AM EDT Office Visit [facility] [address] [facility] [address] James Reyes PA-C [address] [facility] [place] [address] 02/19/2024 9:00 AM EST Office Visit Family Practice, [place] [address] [place] [facility] [place] [address] Eldon Dowd MD [address] [facility] [place] [id number] 05/21/2024 9:00 AM EST Laboratory Laboratory, [place] [address] [place] [facility] [place] [address] [facility] Laboratory [address] [place] [address] 05/28/2024 11:00 AM EST Office Visit Hematology/Oncolog y [facility] [place] [address] [place] [phone] Patricia Conway MD [address] [place] [address] Scheduled Procedures Name Priority Associated Diagnoses Date/Ti me ARTHROCENTESIS OR INJECTION MAJOR JOINT Trochanteric bursitis of right hip 07/30/2023 8:00 AM EDT Health Maintenance Due Date Last Done Comments COVID-19 Vaccine ( season) 2022 01/16/2022, 07/18/2021, 02/14/2021, Additional history exists HbA1c 03/23/2023 09/21/2022, 05/31, 12/12/2021, Additional history exists Depression Screening 10/10/2023 10/09/2022 Diabetic Foot Exam 10/10/2023 10/09/2022, 0 08/30/2021, 10/31/2019, Additional history exists Albumin/Creatinine Ratio 12/16/2023 023, 03/22/2022, 03/30/2021, Additional history exists CKD PHOS USE SMARTSET 57582 12/16/202312/01, 12/12/2021, 12/02/2019, Additional history exists CKD HGB USE SMARTSET 09555 05/28/202405/28, 05/28/2023, 05/22/2023, Additional history exists Diabetic [...] filedocumented as of this encounter Care Teams Stove Installer Relationship Specialty Start Date End Date Eldon Dowd MD [address] [place] [place] [address] PCP - General Family Medicine 12/05/18 documented as of this encounter
--- OUTSIDE RECORDS SUMMARY | 2023-08-21 09:19 | External Medical Summary | Summary of Care ---
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 Project # [id number], SPRINKLER REPAIR TECHNICIAN: Basil Everett MD. CRC: GENE Whitney. SUMMARY: To test the hypothesis that Evacetrapib 130 mg, in comparison to placebo, reduces the risk of major adverse coronary events in high-risk vascular disease patients. CONTACTS: During normal business hours, contact study staff at ; after hours Catalytic Case Operator via the [facility] hospital screed operator [phone]. 24-hour Global Study Helpline: [phone]. Lipid levels should not be ordered/obtained while this subject is in the Accelerate study. Lipids are being managed in a blinded fashion. If lipid levels are inadvertently obtained, it is important that test results are NOT provided to the patient, study doctor, staff development coordinator rn, or other study team members. Restricted meds while in the study: 1) niacin > 250 mg, 2) gemfibrozil with a potent [id number]. Hyperglycemia 02/18/2012 01/10/2017 NSTEMI (non-ST elevated myoc [...] Strength is limited. Aaron Boss MD Orthopaedics [address] [address] Orthopedic Sports Medicine Surgery 08/02/2023 9:19 AM This chart was completed in part utilizing [employer] Speech Voice Recognition Software. Grammatical errors, random [...] Visit Nephrology, [facility] [address] [place] [address] Lili Rodríguez MD [address] [facility] [place] [address] 08/13/2023 11:30 AM EDT Office Visit Orthopaedics [facility] [address] [place] [address] Bette Ramirez MD [address] [place] [address] 08/28/2023 11:00 AM EDT Scheduled Telephone Interventional Pain Center, [facility] [address] [place] [address] Eulog[place], Nurse Phone Call Interventional Pain [facility] [address] [place] [address] 09/18/2023 11:25 AM EDT Office Visit Interventional Pain Center, [facility] [address] [place] [address] Enio Shepherd DO [address] [place] [phone] 10/11/2023 9:15 AM EDT Office Visit Orthopaedics [facility] [address] [facility] [place] [address] Jeison Arteaga DO [address] [facility] [place] [address] 10/11/2023 10:00 AM EDT Nurse Only Ancillary Department, [place] [address] [facility] [address] [place], Nurse [facility] [address] [place] [address] 12/19/2023 10:00 AM EDT Office Visit Cardiology, [facility] [address] [facility] [place] [address] James Reyes PA-C [address] [facility] [place] [address] 02/19/2024 9:00 AM EST Office Visit [facility] Practice, [place] [address] [facility] [address] Eldon Dowd MD [address] [facility] [place] [address] 05/21/2024 9:00 AM EST Laboratory Laboratory, [place] [address] [place] [facility] [place] [facility] [place] [address] [facility] Laboratory [address] [place] [address] 05/28/2024 11:00 AM EST Office Visit Hematology/Oncology [facility] [place] [address] [place] [phone] Patricia Conway MD [address] [place] [address] Scheduled Referrals Name Type Priority Associated Diagnoses [...] Additional history exists CKD PHOS USE SMARTSET 51430 12/16/202312/01, 12/12/2021, 12/02/2019, Additional history exists CKD HGB USE SMARTSET 57993 05/28/202405/28, 05/28/2023, 05/22/2023, Additional history exists Diabetic [...] shoulder documented in this encounter Care Teams Rectangular Tank Cooper Relationship Specialty Start Date End Date Eldon Dowd MD [address] [place] [address] PCP - General Family Medicine 12/05/18 documented as of this encounter
--- OUTSIDE RECORDS SUMMARY | 2023-08-21 09:19 | External Medical Summary ---
Author Name Unknown Address Unknown Organization [facility] [address] Laboratory Report Ordering Provider Test Date Status JAD VELAZQUEZ 08/13/2023 09:15:53 Final Observation Date Value Abnormality Reference (Units ) Status BUN 08/13/2023 09:15:53 36 Above high normal 6-20 (mg/dL) Final Creatinine 08/13/2023 09:15:53 0.6 0.6-1.2 (mg/dL) Final Glomerular filtration rate/1.73 sq M.predicted [Volume Rate/Area] in Serum, Plasma or Blood by Creatinine-based formula (CKD-EPI) 08/13/2023 09:15:53 >90 >=60 (mL/min) Final eGFR is calculated based on the CKD-EPI 2020 equation Sodium 08/13/2023 09:15:53 141 135-146 (m mol/L) Final Potassium 08/13/2023 09:15:53 4.3 3.5-5.1 (m mol/L) Final Cl 08/13/2023 09:15:53 104 98-107 (mm ol/L) Final CO2 08/13/2023 09:15:53 25 22-32 (mmo l/L) Final Anion gap 08/13/2023 09:15:53 12 7-15 (mmol /L) Final Glucose 08/13/2023 09:15:53 272 Above high normal 70 -120 (mg/dL) Final Calcium 08/13/2023 09:15:53 9.2 8.4-10.2 ( mg/dL) Final Performing Location [facility] [place] [address]
--- OUTSIDE RECORDS SUMMARY | 2023-08-21 09:19 | External Medical Summary | Summary of Care ---
Author Name Unknown Organization [facility] Address [address] [facility] [place] [address] Phone [phone] Care Team Providers Care Test Engine Evaluator Name Role Phone Eldon Dowd MD Primary Care Provider [phone] Reason for Visit * Auth/Cert Specialty Diagnoses / Procedures Referred By Urmila t Referred To Contact Diagnoses Trochanteric bursitis of right hip Trochanteric bursitis of right hip [M70.61] Procedures ARTHROCENT ASP &/OR INJ MAJOR JX/BURSA W/O US ARTHROCENTESIS OR INJECTION MAJOR JOINT Enio Shepherd DO [address] [place] [address] Or [facility] [address] [place] [address] Referral ID Status Reason Start Date Expiration Date Visits Re quested Visits Authorized [id number] Encounter Details Date Type Department Care Team (Latest Contact Info) Description 07/30/2023 7:30 AM EDT - 07/30/2023 8:52 AM EDT Hospital Encounter OR [facility], Operating Room [facility] [address] [place] [address] Enio Shepherd DO [address] [place] [address] Discharge Disposition: Home - Self Care Allergies Active Allergy Reactions Criticality Noted Date Comments Candesartan Cilexetil 01/04/2012 hyperkalemia Atenolol 08/21/2012 Pt was told not to take this again Other reaction(s): PT WAS TOLD NEVER TO TAKE AGAIN Candesartan High 06/13/2022 Other reaction(s): HYPERKALEMIA Lisinopril Other (Please comment) High 01/16/2014 Hypotension/ Increased creatinine Other reaction(s): INCREASED CREATININE/HYPOTENSION documented as of this encounter (statuses as of 07/30/2023) Medications Medication Sig Dispensed Refills Start Date [...] as of this encounter (statuses as of 07/30/2023) Active Problems Problem Noted Date Diagnosed Date [...] as of this encounter (statuses as of 07/30/2023) Resolved Problems Problem Noted Date Diagnosed Date Resolved Date 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 Project # [id number], [employer] INSPECTOR: Basil Everett MD. CRC: GENE Whitney. SUMMARY: To test the hypothesis that Evacetrapib 130 mg, in comparison to placebo, reduces the risk of major adverse coronary events in high-risk vascular disease patients. CONTACTS: During normal business hours, contact study staff at ; after hours Ion Exchange Operator via the [facility] hospital button tufting machine operator [phone]. 24-hour Global Study Helpline: [phone]. Lipid levels should not be ordered/obtained while this subject is in the Accelerate study. Lipids are being managed in a blinded fashion. If lipid levels are inadvertently obtained, it is important that test results are NOT provided to the patient, study doctor, sales account coordinator, or other study team members. Restricted meds while in the study: 1) niacin > 250 mg, 2) gemfibrozil with a potent [id number]. Hyperglycemia 02/18/2012 01/10/2017 NSTEMI (non-ST elevated myoc [...] as of this encounter (statuses as of 07/30/2023) Immunizations Name Administration Dates Next Due COVID-19 [...] Sign Reading Time Taken Comments Blood Pressure 176/77 07/30/2023 8:45 AM EDT Pulse 56 07/30/2023 8:31 AM EDT Temperature 36.1 C (96.9 F) 07/30/2023 8:31 AM ED T Respiratory Rate 18 07/30/2023 8:31 AM EDT Oxygen Saturation 99% 07/30/2023 8:31 AM EDT Inhaled Oxygen Concentration - - Weight - - Height - - Body Mass Index - - documented in this encounter Discharge Instructions * Discharge Instr - AVS* Enio Shepherd DO - 07/30/2023 8:27 AM EDT [facility] [address] [place] [address] Discharge Date: 07/30/2023 You may call [facility] at [phone] during business hours. For after-hours emergencies call 911. Your attending physician at the time of your discharge was: Enio Shepherd DO [address] [place] [address] The information below provides you with the [...] unless otherwise instructed by your family physician, nursery attendant or the anticoagulation clinic. Additional Instructions: Please monitor for symptoms of high blood sugar such as frequent urination, flu-like symptoms and changes in your vision as well as blood sugar values >250mg/dL. If these occur, please report to your PCP and/or UrgentCare or the Emergency Department immediately. Driving: You may resume driving in 12-24 hours if no weakness is noted . Date you may return to work or school: N/A Follow Up: Please make a follow-up telephone appointment with our nursing staff in 4-6 weeks. documented in this encounter Progress Notes * Enio Shepherd DO - 07/30/2023 8:27 AM EDT [facility] [place] [address] [facility] [phone] OUTPATIENT SURGERY DISCHARGE SUMMARY NOTE Name: Teodoro Arceo Location: OR [facility] Date: 07/30/2023 Time: 8:27 AM Surgery Date: 07/30/2023 Procedure: ARTHROCENTESIS MAJOR JOINT OR BURSA, ASPIRATION OR INJECTION, ULTRASOUND GUIDED No laterality found for procedure #1 Surgeon: Enio Shepherd DO Discharge Diagnosis: left-sided greater trochanteric bursitis After examination of this patient, I have determined he is ready for discharge to home when the patient meets criteria. Discharge instructions were given to the patient. Enio Shepherd DO OR [facility], Operating Room [facility] [address] [facility] [place] [address] documented in this encounter H&P Notes * Enio Shepherd DO - 07/30/2023 8:02 AM EDT Interventional Pain H&P Subjective: History of Present Illness: Teodoro Arceo is a 88 year old year-old male with a past medical history significant for chronic GTB who is presenting for left GTB injection under ultrasound to improve his pain and function. his pain is essentially unchanged since our last office visit with him. ASA 3 AW nml Review of Systems: A focused 12-pt ROS were of reviewed with the patient including difficulty with sleep, snoring, aspiration history, dysphagia, stomach pain, nausea and vomiting, severe headaches, confusion, open skin lesions or wounds, chest pain, shortness of breath, excessive thirst, somnolence, dysuria, incomplete bladder emptying, easy bruising, recent clotting problems or bleeding, depression or rushed thoughts unless noted previously. Review of patient's allergies indicates: Allergen Reactions Candesartan Other reaction(s): HYPERKALEMIA Lisinopril Other (Please comment) Hypotension/ Increased creatinine Other reaction(s): INCREASED CREATININE/HYPOTENSION Atacand [Candesartan Cilexetil] hyperkalemia Atenolol Pt was told not to take this again Other reaction(s): PT WAS TOLD NEVER TO TAKE AGAIN Medications, Past Medical History, Past Surgical History reviewed and documented in Epic. See detailed report if needed. Pertinent Labs/Test Results: No results found for: "INR" No results found for: "CREATININE" Hemoglobin A1C (%) Date Value 09/21/2022 7.5 (H) 08/29/2019 7.3 (H) Lab Results Component Value Date/Time URINE TOTAL PROTEIN 6 08/15/2010 01:57 PM Imaging: I personally reviewed the imaging and my findings were . RADIOLOGY EXAM - CT (IMAGES ONLY, NO REPORT) This is an imaging study not interpreted or resulted by a [facility] or [facility] contracted radiologist. Objective Physical Exam: Vital Signs: BP 151/75 | Pulse 66 | Temp 36.1 C (96.9 F) (Tympanic) | Resp 18 | SpO2 99% There is no height or weight on file to calculate BMI. General: No apparent distress. Eyes: pupils equal and round, sclera white, pupils midsize. ENT: mucous membranes moist Resp: Non-labored breathing CV: Extremities warm and well-perfused. Psych: Oriented; affect warm, insight good. Skin: No rashes or lesions appreciated on exposed skin Neuromuscular Exam: Bilatearl TTP GTB Assessment: Teodoro is a 88 year old year-old male with: Bilateral greater trochanteric bursitis Chronic hip pain Plan: The patient is undergoing left greater trochanteric bursa injection under u/s guidance today to alleviate his pain and improve his function. The risks, benefits and alternatives to the procedure werereviewed at length and the patient was provided the opportunity to ask questions which were answered to their voiced understanding. Following this comprehensive discussion, the patient opted to proceed. The patient was consented to the procedure following this comprehensive conversation. Enio Shpeherd DO OR [facility], Operating Room [address] [address] documented in this encounter Nursing Notes * Cristina Bates RN - 07/30/2023 8:52 AM EDT Pt blood pressure has downtrended from 198/92 to 176/77. Patient denies headache, vision changes, or chest pain. Per Dr. Shepherd pt okay for discharge as long as BP has trended down after 10 min. Discharge instructions reviewed with pt and pt has verbalized understanding of these teachings and readiness for discharge. Pt ready for discharge. * Cristina Bates RN - 07/30/2023 8:35 AM EDT Pt tolerated procedure well. Pt has been visited by Dr. Shepherd. In recovery, pt blood pressure is up-198/92, see flowsheet for details. Patient denies headache, vision changes, or chest pain. Per Dr. Shepherd pt is to have BP rechecked in 10 min and as long as it has trended down in this time he is okayfor discharge. * June Sherman RN - 07/30/2023 8:27 AM EDT Band aid applied to area. Patient transferred to PACU 11 via wheelchair documented in this encounter OR Notes * OR Surgeon - Enio Shepherd DO - 07/30/2023 8:25 AM EDT Ultrasound Guided Hip Bursa Injection PHYSICIAN: Enio Shepherd DO PREOPERATIVE DIAGNOSIS: Left greater trochanteric bursitis POSTOPERATIVE DIAGNOSIS: Left greater trochanteric bursitis PROCEDURES PERFORMED: 1. Left greater trochanteric bursa injection. 2. Ultrasound-guided for precise needle placement. ANESTHESIA: Local anesthetic. MEDICATIONS: Current Facility-Administered Medications Medication Dose Route Frequency Provider Last Rate Last Admin lidocaine 1 % inj 20 mg 2 mL Subcutaneous Once Enio Shepherd DO Triamcinolone Acetonide (Kenalog) 40 MG/ML inj 40 mg 40 mg Injection Once Enio Shepherd DO ALLERGIES: Review of patient's allergies indicates: Allergen Reactions Candesartan Other reaction(s): HYPERKALEMIA Lisinopril Other (Please comment) Hypotension/ Increased creatinine Other reaction(s): INCREASED CREATININE/HYPOTENSION Atacand [Candesartan Cilexetil] hyperkalemia Atenolol Pt was told not to take this again Other reaction(s): PT WAS TOLD NEVER TO TAKE AGAIN MONITORS: Automatic blood pressure cuff and pulse oximetry were readily available. INDICATIONS: Teodoro Arceo is a 88 year old year-old male with past medical history significant for left greater trochanteric bursitis who desires left greater trochanteric bursa injection todayunder ultrasound guidance. REVIEW OF SYSTEMS: Negative for fever, chills, chest pain, shortness of breath, bleeding abnormalities, nausea, vomiting, edema, or new rashes. FOCUSED PHYSICAL EXAMINATION: The patient is awake, alert and oriented, no acute distress. Vital signs are stable. The patient is afebrile. On exam, there is tenderness to palpation in left greater trochanteric bursa. The rest of physical examination is unchanged from recent visit to our office. I explained the procedure to the patient including risks, benefits and alternatives to the procedure. The patient verbalized understanding and was willing to proceed. PROCEDURE IN DETAIL: An informed consent was obtained. The patient was positively identified by thestaff and attending physician. A timeout was performed. The patient was positioned in the right lateral decubitus position. Ultrasound was utilized to identify the greater trochanter along with the gl uteus minimus and gluteus medius tendon. A sterile field was established using DuraPrep and steriletowels. A 20-gauge 4 inch StimuPlex needle was used to traverse soft tissue into the greater trochanteric bursa on the left side using in-plane technique. The injectate consisting of 40mg of triamcinolone diluted in 4 mL of lidocaine 1% was then injected. The patient tolerated the procedure well. There were no complications. All needles were withdrawn and discarded appropriately. DISPOSITION: 1. The patient was discharged from our clinic after discharge criteria was met. 2. The patient will follow up in 6 weeks. 3. Pt to monitor diabetes closely as per discharge instructions. Enio Shepherd DO OR [facility], Operating Room [facility] [address] [place] [address] documented in this encounter Plan of Treatment Upcoming Encounters Date Type Department Care Team (Late st Contact Info) Description 08/02/2023 9:45 AM EDT Office Visit Orthopaedics [facility] [address] [place] [address] Aaron Boss MD [address] [place] [phone] 08/13/2023 8:00 AM EDT Office Visit Nephrology, [facility] [address] [place] [address] Lili Rodríguez MD [address] [facility] [place] [address] 08/28/2023 11:00 AM EDT Scheduled Telephone Interventional Pain Center, [facility] [address] [place] [address] Eulogio, Nurse Phone Call Interventional Pain [facility] [address] [place] [address] 09/18/2023 11:25 AM EDT Office Visit Interventional Pain Center, [facility] [address] [address] [place] [address] Enio Shepherd, DO [address] [place] [phone] 10/11/2023 9:15 AM EDT Office Visit Orthopaedics [facility] [address] [place] [address] Jeison Arteaga, DO [address] [facility] [place] [address] 10/11/2023 10:00 AM EDT Nurse Only Ancillary Department, [place] [address] [facility] [address] [place], Nurse Annual [facility] [address] [facility] [place] [address] 12/19/2023 10:00 AM EDT Office Visit Cardiology, [facility] [address] [place] [address] James Reyes, PA-C [address] [facility] [place] [address] 02/19/2024 9:00 AM EST Office Visit [facility], [place] [address] [facility] [phone] Eldon Dowd MD [address] [place] [address] 05/21/2024 9:00 AM EST Laboratory Laboratory, [place] [address] [facility] [place] [phone] [facility] [address] [facility] [place] [address] 05/28/2024 11:00 AM EST Office Visit Hematology/Oncology [facility] [address] [facility] [place] [phone] Patricia Conway MD [address] [facility] [place] [address] Scheduled Procedures Name Priority Associated Diagnoses Date/Ti me ARTHROCENTESIS OR INJECTION MAJOR JOINT Trochanteric bursitis of right hip 07/30/2023 8:15 AM EDT Health Maintenance Due Date Last Done Comments COVID-19 Vaccine (2022- season) 2022 01/16/2022, 07/18/2021, 02/14/2021, Additional history exists HbA1c 03/23/2023 09/21/2022, 05/31, 12/12/2021, Additional history exists Depression Screening 10/10/2023 10/09/2022 Diabetic Foot Exam 10/10/2023 10/09/2022, 0 08/30/2021, 10/31/2019, Additional history exists Albumin/Creatinine Ratio 12/16/202312/15/2 023, 03/22/2022, 03/30/2021, Additional history exists CKD PHOS USE SMARTSET 03946 12/16/202312/01, 12/12/2021, 12/02/2019, Additional history exists CKD HGB USE SMARTSET 44309 05/28/202405/28, 05/28/2023, 05/22/2023, Additional history exists Diabetic [...] Not on filedocumented as of this encounter Administered Medications Inactive Administered Medications - up to 3 most recent administrations Medication Order MAR Action Action Date Dose Rate Site lidocaine 1 % inj 20 mg 20 mg (2 mL), Subcutaneous, ONCE, On Sun07/30/23 at 0815, For 1 dose Given 07/30/2023 8:19 AM EDT 4 mL O ther-Specify Triamcinolone Acetonide (Kenalog) 40 MG/ML inj 40 mg 40 mg, Injection, ONCE, On Sun07/30/23 at 0815, For 1 dose Given 07/30/2023 8:22 AM EDT 40 mg documented in this encounter Active and Recently Administered Medications Times are shown in EDT. Scheduled Medication Order 07/28/2023 07/29/2023 07/30/2023 lidocaine 1 % inj 20 mg (COMPLETED) 20 mg (2 mL), Subcutaneous, ONCE, On Sun07/30/23 at 0815, For 1 dose 0819 (Given - Provid er: June Sherman RN) Triamcinolone Acetonide (Kenalog) 40 MG/ML inj 40 mg (COMPLETED) 40 mg, Injection, ONCE, On Sun07/30/23 at 0815, For 1 dose 0822 (Given - Provid er: June Sherman RN) documented in this encounter Care Teams Test Engine Evaluator Relationship Specialty Start Date End Date Eldon Dowd MD [address] [place] [address] PCP - General Family Medicine 12/05/18 documented as of this encounter
--- OUTSIDE RECORDS SUMMARY | 2023-08-21 09:20 | External Medical Summary | Summary of Care ---
Author Name Unknown Organization [facility] Address [address] [place] [address] Phone [phone] Care Team Providers Care Men'S Locker Room Attendant Name Role Phone Eldon Dowd MD Primary Care Provider [phone]- [phone] Reason for Visit * Reason Comments Follow Up Encounter Details Date Type Department Care Team (Latest Contact Info) Description 06/27/2023 7:45 AM EDT Telemedicine Orthopaedics [facility] [address] [place] [address] Aaron Boss MD [address] [place] [phone] Synovial cyst of shoulder*; Rotator cuff arthropathy of left shoulder; Arthritis of left acromioclavicular joint Allergies Active Allergy Reactions Criticality Noted Date Comments Candesartan Cilexetil 01/04/2012 hyperkalemia Atenolol 08/21/2012 Pt was told not to take this again Other reaction(s): PT WAS TOLD NEVER TO TAKE AGAIN Candesartan High 06/13/2022 Other reaction(s): HYPERKALEMIA Lisinopril Other (Please comment) High 01/16/2014 Hypotension/ Increased creatinine Other reaction(s): INCREASED CREATININE/HYPOTENSION documented as of this encounter (statuses as of 06/27/2023) Medications Medication Sig Dispensed Refills Start Date [...] of breath 1 Inhaler 3 09/06/2018 Active Carvedilol 12.5 MG Oral Tablet (Coreg)Indications: [...] Additional Information Patient not taking.Reported on 06/20/2023 Furosemide 40 MG Oral Tablet (Lasix) take 1 tablet by mouth daily 30 Tablet 1 03/01/2023 Active Isosorbide Mononitrate ER 30 MG Oral Tablet Extended Release 24 Hour (Imdur) take 1 tablet by mouth daily 30 Tablet 1 03/01/2023 Active Lidocaine 4 % External Patch (Aspercreme) apply 1 patch topically daily; may leave on for up to 12 hrs 5 Patch 1 03/01/2023 Active Acetaminophen 500 MG Oral Tablet (Tylenol) take [...] as needed for Pain, Chest. 0 Active documented as of this encounter (statuses as of 06/27/2023) Active Problems Problem Noted Date Diagnosed Date [...] as of this encounter (statuses as of 06/27/2023) Resolved Problems Problem Noted Date Diagnosed Date Resolved Date Hypertensive kidney disease with chronic kidney disease stage III 10/30/2018 02/12/2020 Overview: Per CKD protocol Chest discomfort 02/23/2015 09/01/2016 Viral URI with cough 03/25/2014 017 Accelerate Clinical Trial*[id number] 08/27/2012 08/27/2012 Accelerate Clinical Trial*[id number] 08/27/2012 03/29/2015 Overview: ACCELERATE STUDY. Project # [id number], AUTO FORMER MACHINE OPERATOR: Basil Everett MD. CRC: GENE Whitney. SUMMARY: To test the hypothesis that Evacetrapib 130 mg, in comparison to placebo, reduces the risk of major adverse coronary events in high-risk vascular disease patients. CONTACTS: During normal business hours, contact study staff at ; after hours Snath Handle Assembler via the [facility] hospital bridge operator slip [phone]. 24-hour Global Study Helpline: [phone]. Lipid levels should not be ordered/obtained while this subject is in the Accelerate study. Lipids are being managed in a blinded fashion. If lipid levels are inadvertently obtained, it is important that test results are NOT provided to the patient, study doctor, curriculum coordinator, or other study team members. Restricted meds while in the study: 1) niacin > 250 mg, 2) gemfibrozil with a potent [id number]. Hyperglycemia 02/18/2012 01/10/2017 NSTEMI (non-ST elevated myoc [...] as of this encounter (statuses as of 06/27/2023) Immunizations Name Administration Dates Next Due COVID-19 [...] Progress Notes * Aaron Boss MD - 06/27/2023 7:45 AM EDT After connecting to the patient via telephone, the patient was identified by name and date of . Patient was then informed that this was a telephone call only visit. The patient agreed to participate. Visit Disposition: Routine follow-up Assessment M71.319 Synovial cyst of shoulder (primary encounter diagnosis) M12.812 Rotator cuff arthropathy of left shoulder M19.012 Arthritis of left acromioclavicular joint Patient states that the left shoulder cyst is unchanged. He denies any significant pain. Denies anydrainage. After discussing patient's symptoms recommend continued conservative management. If the patient develops symptoms of pain or drainage he may follow up with us in the office. Total call duration was Less than 5 minutes. Aaron Boss MD Orthopaedics [facility] [address] [place] [address] Orthopedic Sports Medicine Surgery documented in this encounter Plan of Treatment Upcoming Encounters Date Type Department Care Team (Latest Contact Info) Description 07/05/2023 10:15 AM EDT Office Visit Orthopaedics [facility] [address] [place] [address] Jeison Arteaga, DO [address] [place] [address] 07/11/2023 10:05 AM EDT Hospital Encounter [facility], Operating Room [facility] [address] [place] [phone] Enio Shepherd, DO [address] [place] [phone] 07/11/2023 10:05 AM EDT - 07/11/2023 10:30 AM EDT Surgery OR [facility], Operating Room [facility] [address] [place] [phone] Enio Shepherd, DO [address] [place] [phone] ARTHROCENTESIS OR INJECTION MAJOR JOINT 07/24/2023 5:40 PM EDT Office [facility] [address] [facility] [phone] Eldon Dowd MD [address] [facility] [address] 08/20/2023 1:40 PM EDT Office Visit [facility], [facility] [place] [address] [place] [address] Lili Rodríguez MD [address] [place] [address] 10/11/2023 10:00 AM EDT Nurse Only Ancillary Department, [place] [address] [place] [facility] [place] [address] [place], Nurse [facility] [address] [place] [address] 12/19/2023 10:00 AM EDT Office Visit [facility]iology, [facility] [address] [facility] [address] James Reyes [facility]-C [address] [facility] [address] 05/21/2024 9:00 AM EST Laboratory Laboratory, [place] [address] [place] [address] [facility] [address] [place] [address] 05/28/2024 11:00 AM EST Office Visit Hematology/Oncolog y [facility] [address] [facility] [place], [place] [phone] Patricia Conway MD [address] [facility] [place], [place] [address] Scheduled Procedures Name Priority Associated Diagnoses Date/Ti me ARTHROCENTESIS OR INJECTION MAJOR JOINT Greater trochanteric bursitis of both hips 07/11/2023 10:05 AM EDT Health Maintenance Due Date Last Done Comments Diabetic Eye Exam 04/25/2022 04/25/2021, , 12/30/2018 COVID-19 Vaccine ( season) 2022 01/16/2022, 07/18/2021, 02/14/2021, Additional history exists HbA1c 03/23/2023 09/21/2022, 05/31, 12/12/2021, Additional history exists Depression Screening 10/10/2023 10/09/2022 Diabetic Foot Exam 10/10/2023 10/09/2022, 0 08/30/2021, 10/31/2019, Additional history exists Albumin/Creatinine Ratio 12/16/2023 023, 03/22/2022, 03/30/2021, Additional history exists CKD PHOS USE SMARTSET 55153 12/16/202312/01, 12/12/2021, 12/02/2019, Additional history exists CKD HGB USE SMARTSET 46762 05/28/202405/28, 05/28/2023, 05/22/2023, Additional history exists DTaP,Tdap,and Td Vaccines (2 [...] Primary 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
--- OUTSIDE RECORDS SUMMARY | 2023-08-21 09:20 | External Medical Summary ---
Author Name Unknown Address Unknown Organization K01:[facility] - [address] [place] [address] Laboratory Report Ordering Provider Test Date Status LISA SNOWDEN 07/05/2023 10:48:14 Final Observation Date Value Abnormality Reference (Units ) Status Triglyceride 07/05/2023 10:48:14 297 Above high normal <=174 (mg/dL) Final Triglyceride Reference Range s (mg/dL):
<150 Acceptable
150-174 Borderline high
175-499 High
>=500 Very high Cholesterol 07/05/2023 10:48:14 159 <200 (mg /dL) Final Total Cholesterol Reference Ranges (mg/dL):
<200 Desirable
200-239 Borderline high
>=240 High HDL 07/05/2023 10:48:14 47 >39 (mg/dL ) Final HDL Cholesterol Reference Ra nges (mg/dL):
>=60 High (Desirable)
<50 Low (Undesirable) For Females
<40 Low (Undesirable) For Males NON-HDL CHOLESTEROL 07/05/2023 10:48:14 112 <=159 (mg/dL) Final Non-HDL Cholesterol Referenc e Range (mg/dL):
<100 Target level for high risk ASCVD patient
<130 Optimal for general population
130-159 Near optimal for general population
160-189 Borderline High
190-219 High
>=220 Very High Performing Location LAB[facility]ATORY [facility] - [address] [place] [address]
--- OUTSIDE RECORDS SUMMARY | 2023-08-21 09:20 | External Medical Summary ---
Author Name Unknown Address Unknown Organization K01:[facility] [place] [address] [place] [address] Laboratory Report Ordering Provider Test Date Status SPLISA JAIMES 07/05/2023 10:48:14 Final Observation Date Value Abnormality Reference (Units ) Status LDL, (direct) 07/05/2023 10:48:14 79 <=129 (mg/dL) Final LDL Cholesterol Reference Ra nges (mg/dL):
<70 Target level for high risk ASCVD patient
<100 Optimal for general population
100-129 Near optimal for general population
130-159 Borderline high
160-189 High
>=190 Very high Performing Location LABORATORY [facility] - [address] [place] [address]
--- OUTSIDE RECORDS SUMMARY | 2023-08-21 09:20 | External Medical Summary | Summary of Care ---
Author Name Unknown Organization [facility] Address [address] [facility] [place] [address] Phone [phone] Care Team Providers Care Head Chopper Name Role Phone Eldon Dowd MD Primary Care Provider +1- [phone] Reason for Visit * Reason Comments Follow Up 5 month follow up. P alpitations about once a week for a short period when sitting. Edema in feet and left shoulder. Denies chest pain in the last month. Denies SOB and dizziness. 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); Dyslipidemia, goal LDL below 70 Allergies Active Allergy Reactions Criticality Noted Date Comments Candesartan Cilexetil 01/04/2012 hyperkalemia Atenolol 08/21/2012 Pt was told not to take this again Other reaction(s): PT WAS TOLD NEVER TO TAKE AGAIN Candesartan High 06/13/2022 Other reaction(s): HYPERKALEMIA Lisinopril Other (Please comment) High 01/16/2014 Hypotension/ Increased creatinine Other reaction(s): INCREASED CREATININE/HYPOTENSION documented as of this encounter (statuses as of 06/22/2023) Medications Medication Sig Dispensed Refills Start Date [...] 09/06/2018 Active Carvedilol 12.5 MG Oral Tablet (Coreg)Indications [...] DAILY 100 Tablet 5 10/16/2022 4 Active Sotalol HCl 80 MG Oral Tablet (Betapace)Indicati ons:Paroxysmal atrial fibrillation (HCC) TAKE 1/2 TABLET BY MOUTH TWICE DAILY 90 Tablet 3 01/22/2023 4 Active Empagliflozin 10 MG Oral Tablet (Jardiance) TAKE ONE TABLET BY MOUTH IN THE MORNING 30 Tablet 5 01/22/2023 4 Active glipiZIDE ER 2.5 MG Oral Tablet [...] 0 Active linaGLIPtin 5 MG Oral Tablet (Tradjenta)Indicat [...] BY MOUTH DAILY 90 Tablet 1 06/06/2023 5 Active Nitroglycerin 0.4 MG Sublingual Tablet Sublingual (Nitrostat) Place 1 Tablet under the tongue every 5 minutes as needed for Pain, Chest. 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 01/20/2021 Chronic kidney disease, stage 3a 08/10/2020 Overview: Per CKD protocol Hypertensive kidney disease with stage 3a chronic kidney disease 02/09/2020 Overview: Per CKD protocol Chronic diastolic congestive heart failure 10/17 /2019 Renal osteodystrophy 01/16/2019 Type 2 diabetes mellitus [...] as of this encounter (statuses as of 06/22/2023) Resolved Problems Problem Noted Date Diagnosed Date Resolved Date Hypertensive kidney disease with chronic kidney disease stage III 10/30/2018 02/12/2020 Overview: Per CKD protocol Chest discomfort 02/23/2015 09/01/2016 Viral URI with cough 03/25/2014 017 Accelerate Clinical Trial*[id number] 08/27/2012 08/27/2012 Accelerate Clinical Trial*[id number] 08/27/2012 03/29/2015 Overview: ACCELERATE STUDY. Project # [id number], FIREFIGHTER: Basil Everett MD. CRC: GENE Whitney. SUMMARY: To test the hypothesis that Evacetrapib 130 mg, in comparison to placebo, reduces the risk of major adverse coronary events in high-risk vascular disease patients. CONTACTS: During normal business hours, contact study staff at ; after hours Ring Making Machine Operator via the [facility] water taxi operator [phone]. 24-hour Global Study Helpline: [phone]. Lipid levels should not be ordered/obtained while this subject is in the Accelerate study. Lipids are being managed in a blinded fashion. If lipid levels are inadvertently obtained, it is important that test results are NOT provided to the patient, study doctor, billing coordinator, or other study team members. Restricted meds while in the study: 1) niacin > 250 mg, 2) gemfibrozil with a potent [id number]. Hyperglycemia 02/18/2012 01/10/2017 NSTEMI (non-ST elevated myoc [...] as of this encounter (statuses as of 06/22/2023) Immunizations Name Administration Dates Next Due COVID-19 [...] Sign Reading Time Taken Comments Blood Pressure 132/76 06/22/2023 9:35 AM EDT Pulse 72 06/22/2023 9:35 AM EDT Temperature - - Respiratory Rate 16 06/22/2023 9:35 AM EDT Oxygen Saturation - - Inhaled Oxygen Concentration - - Weight 65.7 kg (144 lb 12 oz) 06/22/2023 9:35 AM EDT Height - - Body Mass Index 22.01 09/15/2022 10:11 AM EDT documented in this encounter Progress Notes * James Reyes PA-C - 06/22/2023 9:37 AM EDT SUBJECTIVE: Teodoro Arceo is a 88 year old male followed by Dr. Haines, returning today for routine cardiology follow-up evaluation. Patient hospitalized at [facility] in July 2022 with GI bleeding and symptomatic anemia requiring transfusion of 3 units PRBCs. Hemoglobin down to 6.3 g/dL. He did not undergo endoscopic evaluation at that time and is at increased risk for recurrent bleeding. Also with a large hiatal hernia, chronic prednisone therapy, MGUS. Rhythm controlled with sotalol. Eliquis anticoagulation discontinued. Patient hospitalized at [facility] in February 2028 following a fall, with musculoskeletal left shoulder and left rib pain, without fracture. High sensitivity troponin mildly elevated, chronically, withoutchange. EKG without acute ischemic changes. Resting echocardiography summarized below. Status post June 04, 2023 circumcision for severe phimosis, Dr. Springer; BPH treated with finasteride. Accompanied by son "I'm good except for my hips, my knees, and my neuropathy." Right greater than left lower extremity peripheral edema No chest pain No significant palpitations No unusual shortness of breath. No dizziness or syncope. No melena or hematochezia Patient Active Problem List Diagnosis Code Monoclonal [...] at OR [facility] SIGMOIDOSCOPY, DIAGNOSTIC 09/02/98 diverticulosis US ARTHROCENT ASP &/OR INJ MAJOR JX/BURSA Right 06/20/2023 ARTHROCENTESIS MAJOR JOINT OR BURSA, ASPIRATION OR INJECTION, ULTRASOUND GUIDED performed by Enio Shepherd, at [facility] Family History Problem Relation Age of Onset Other (pneumonia) Father of pneumonia @ 81 Stroke Mother CVA/ [place] @ 63 Heart Disorder Sister CABG Heart [...] MOUTH IN THE MORNING 30 Tablet 5 Furosemide 40 MG Oral Tablet (Lasix) take 1 tablet by mouth daily 30 Tablet 1 Isosorbide Mononitrate ER 30 MG Oral Tablet [...] TABLET BY MOUTH DAILY 90 Tablet 1 albuterol HFA (PROVENTIL HFA) 108 (90 BASE) MCG/ACT inhaler Use 2 puffs every 4- 6hrs as needed for wheezing/shortness of breath 1 Inhaler 3 glipiZIDE ER 2.5 MG Oral Tablet Extended Release 24 Hour (glipiZIDE XL) Take 1 Tablet by mouth in the morning. 30 minutes before a meal.. (Patient not taking: Reported on 06/20/2023) 30 Tablet 5 Lidocaine 4 % External Patch (Aspercreme) apply 1 patch topically daily; may leave on for up to 12 hrs 5 Patch 1 Amoxicillin 500 MG Oral Capsule (Amoxil) Take 1 Capsule by mouth in the morning and 1 Capsule at noon and 1 Capsule before bedtime. (Patient not taking: Reported on 05/28/2023) Nitroglycerin 0.4 MG Sublingual Tablet Sublingual (Nitrostat) Place 1 Tablet under the tongue every5 minutes as needed for Pain, Chest. No current facility-administered medications for this visit. OBJECTIVE/PHYSICAL EXAMINATION: BP 132/76 | Pulse 72 | Resp 16 | Wt 65.7 kg (144 lb 12 oz) | BMI 22.01 kg/m | BSA 1.78 m General: Alert [...] tibial=1/4. Limited neurological examination: No focal deficit. Data July 04, 2022 [facility] Moderate concentric LVH. No regionalWMA's. Normal LV systolic function. EF 60-65%. Normal RV size and function. Mild mitral regurgitation. February 27, 2023 TTE interpretation summary [facility] Compared to prior study, there has no significant change. Ejection fraction 65 to 70%. Moderate concentric LVH. Mildly dilated left atrium. Mild aortic regurgitation. Trace tricuspid regurgitation. Doppler findings do not suggest pulmonary hypertension. EKG on June 22, 2023 revealed sinus rhythm at 65 bpm with possible left atrial enlargement, premature ventricular complexes, and lateral ST-T wave abnormality suggestive of ischemia. QTc 459 ms. When compared to prior available tracings, there was no significant change. ASSESSMENT: Multifactorial volume overload - HRpEF, hypoalbuminemia, medications Chronic coronary artery disease, history of non-ST elevation IN 2012 s/p drug- eluting stent implantation to the left anterior descending artery. Paroxysmal atrial fibrillation maintained in sinus rhythm with sotalol, anticoagulation risks felt to be greater than the benefit. Prior palpitations attributed to sensed ventricular ectopy. Dyslipidemia Hypertension CKD stage 3 COPD GERD RECOMMENDATIONS/PLAN: Trial slight titration of furosemide (currently taking 40 mg/day), 40 mg one day alternating with 60 mg the next day. Cardiology follow-up in 2-3 months or as needed. ER with emergencies. James Reyes PA-C Department of Cardiology I spent a total of 30-39 minutes (exact time 30 mins) on the date of service in preparation, delivery, and documentation of the care provided to Teodoro Arceo excluding any time spent in the performance of separately billed services. This visit involved medical care services related to at least one serious condition or complex condition requiring ongoing care. This chart was completed in part utilizing [employer] Speech Voice Recognition Software. Grammatical errors, random word insertions, prounoun errors, and incomplete sentences are an occasional consequence of this system due to software limitations, ambient noise, and hardware issues. Any formal questions or concerns about the content, text, or information contained within the body of this dictation should be directly addressed to the provider for clarification. documented in this encounter Procedure Notes * Alvaro Higginbotham, - 06/22/2023 9:28 AM EDTAssociated Order(s): EKG REASON FOR STUDY: HTN;HTN CONCLUSIONS: Sinus rhythm with Premature atrial complexes with Aberrant conduction ST & T wave abnormality, consider lateral ischemia Abnormal ECG When compared with ECG of 13-Apr-2022 09:28, Premature ventricular complexes are no longer Present Ventricular Rate: 65 Atrial Rate: 65 MD Interval: 194 QRS Duration: 110 QT/QTc: 442/459 ms P-R-T Drif[place]: -14 : -9 : 132 degrees documented in this encounter Nursing Notes * Avery Mac LPN - 06/22/2023 9:27 AM EDT Patient identified by full name and date of Examination Room: 3 Name: Teodoro Arceo Date of : (1935). Reason for Visit: Follow up Interim Hospitalization(s): [facility] Apr 2023 for 4 days and [facility] 02/26-03/01/23 Problems/Concerns: See chief complaint Chest Pain/SOB: See chief complaint [facility] Discussed: Not applicable [facility] is a way you can talk to [...] Description 06/27/2023 7:45 AM EDT Telemedicine Orthopaedics [facility] [address] [place] [address] Aaron Boss MD [address] [place] [phone] 07/05/2023 10:15 AM EDT Office Visit Orthopaedics [facility] [address] [place] [address] Jeison Arteaga DO [address] [place] [address] 07/11/2023 10:05 AM EDT Hospital Encounter [facility], Operating Room [facility] [address] [place] [phone] Enio Shepherd, DO [address] [place] [phone] 07/11/2023 10:05 AM EDT - 07/11/2023 10:30 AM EDT Surgery [facility], Operating Room [facility] [address] [place] [phone] Enio Shepherd, DO [address] [place] [phone] ARTHROCENTESIS OR INJECTION MAJOR JOINT 07/24/2023 5:40 PM EDT Office Visit [facility] [place] [address] [facility] [phone] Eldon Dowd [facility] [address] [facility] [address] 08/20/2023 1:40 PM EDT Office Visit Nephrology, [facility] [address] [facility] [place] [address] Lili Rodríguez MD [address] [facility] [place] [address] 10/11/2023 10:00 AM EDT Nurse Only Ancillary Department, [place] [address] [facility] [address] [facility] [address] [facility] [phone] 12/19/2023 10:00 AM EDT Office Visit Cardiology, [facility] [address] [place] [address] James Reyes PA-C [address] [place] [address] 05/21/2024 9:00 AM EST Laboratory Laboratory, [place] [address] [facility], [place] [phone] [place], Laboratory [address] [place] [facility] [place] [address] 05/28/2024 11:00 AM EST Office Visit Hematology/Oncolog y [facility] [place] [address] [place], [place] [address] Patricia Conway MD [address] [place] [address] Scheduled Procedures Name Priority Associated Diagnoses Date/Ti [...] Additional history exists CKD PHOS USE SMARTSET 37352 12/16/202312/01, 12/12/2021, 12/02/2019, Additional history exists CKD HGB USE SMARTSET 15808 05/28/202405/28, 05/28/2023, 05/22/2023, Additional history exists DTaP,Tdap,and [...] Procedure Name Priority Date/Time Associated Diagnosis Comments MD ECG ROUTINE ECG W/LEAST 12 LDS I&R ONLY Routine 06/22/2023 9:28 AM EDT HTN, goal below 140/90 documented in this encounter Results * EKG (06/22/2023 9:28 AM EDT) 06/22/2023 9:28 AM EDT Narrative Procedure Note Alvaro Higginbotham DO - 06/22/2023 9:28 AM EDT REASON FOR STUDY: HTN;HTN CONCLUSIONS: Sinus rhythm with Premature atrial complexes with Aberrant conduction ST & T wave abnormality, consider lateral ischemia Abnormal ECG When compared with ECG of 13-Apr-2022 09:28, Premature ventricular complexes are no longer Present Ventricular Rate: 65 Atrial Rate: 65 MD Interval: 194 QRS Duration: 110 QT/QTc: 442/459 ms P-R-T [place]: -14 : -9 : 132 degrees James Reyes PA-C EKG [facility] documented in this encounter Visit Diagnoses Diagnosis Coronary artery disease involving soboba coronary artery of soboba heart without angina pectoris- Primary HTN, goal below 140/90 Unspecified essential hypertension Paroxysmal atrial fibrillation (HCC) Atrial fibrillation Chronic diastolic congestive heart failure (HCC) Chronic diastolic heart failure 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
--- OUTSIDE RECORDS SUMMARY | 2023-08-21 09:20 | External Medical Summary | Summary of Care ---
Author Name Unknown Organization [facility] Address [address] [facility] [place] [address] Phone [phone] Care Team Providers Care Electronics Design Engineer Name Role Phone Eldon Dowd MD Primary Care Provider +1- [phone] Reason for Visit * Reason Comments Follow Up Bilateral knee Encounter Details Date Type Department Care Team (Latest Contact Info) Description 07/05/2023 10:15 AM EDT Office Visit Orthopaedics [facility] [address] [place] [address] Jeison Arteaga DO [address] [place] [address] Primary osteoarthritis of both knees* Allergies Active Allergy Reactions Criticality Noted Date Comments Candesartan Cilexetil 01/04/2012 hyperkalemia Atenolol 08/21/2012 Pt was told not to take this again Other reaction(s): PT WAS TOLD NEVER TO TAKE AGAIN Candesartan High 06/13/2022 Other reaction(s): HYPERKALEMIA Lisinopril Other (Please comment) High 01/16/2014 Hypotension/ Increased creatinine Other reaction(s): INCREASED CREATININE/HYPOTENSION documented as of this encounter (statuses as of 07/05/2023) Medications Medication Sig Dispensed Refills Start Date [...] other day 120 Tablet 3 06/27/2023 Active Hospital, Clinic, or Other Facility Administered Medication Ordered Dose Route Frequency Start Date End Date Status lidocaine 1% 1 mL - triamcinolone acetonide 40 mg/mL 1 mL inj 2 mLIndications:Primary osteoarthritis of both knees 2 mL IJ ONCE 07/05/2023 07/05/2023 Ended lidocaine 1% 1 mL - triamcinolone acetonide 40 mg/mL 1 mL inj 2 mLIndications:Primary osteoarthritis of both knees 2 mL IJ ONCE 07/05/2023 07/05/2023 Ended documented as of this encounter (statuses as of 07/05/2023) Active Problems Problem Noted Date Diagnosed Date [...] as of this encounter (statuses as of 07/05/2023) Resolved Problems Problem Noted Date Diagnosed Date Resolved Date 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 Project # [id number], KIDNEY PULLER: Basil Everett MD. CRC: GENE Whitney. SUMMARY: To test the hypothesis that Evacetrapib 130 mg, in comparison to placebo, reduces the risk of major adverse coronary events in high-risk vascular disease patients. CONTACTS: During normal business hours, contact study staff at ; after hours [employer] Machine Feeder via the [facility] hospital nickel plant operator [phone]. 24-hour Global Study Helpline: [phone]. Lipid levels should not be ordered/obtained while this subject is in the Accelerate study. Lipids are being managed in a blinded fashion. If lipid levels are inadvertently obtained, it is important that test results are NOT provided to the patient, study doctor, implementation coordinator, or other study team members. Restricted meds while in the study: 1) niacin > 250 mg, 2) gemfibrozil with a potent [id number]. Hyperglycemia 02/18/2012 01/10/2017 NSTEMI (non-ST elevated myoc [...] as of this encounter (statuses as of 07/05/2023) Immunizations Name Administration Dates Next Due COVID-19 [...] encounter Progress Notes * Jeison Arteaga, - 07/05/2023 10:29 AM EDT ORTHOPAEDIC SURGERY - Clinic Note/Injection SUBJECTIVE: Teodoro Arceo is a 88 year old male. Chief Complaint Patient presents with Follow Up Bilateral knee HPI: He presents for repeat bilateral knee injections. His last injections were in January of 2023. He reported good relief until recently. Review of patient's allergies indicates: Allergen Reactions [...] for wheezing/shortness of breath 1 Inhaler 3 Carvedilol 12.5 MG Oral [...] MOUTH IN THE MORNING 30 Tablet 5 glipiZIDE ER 2.5 MG Oral [...] up to 12 hrs 5 Patch 1 Acetaminophen 500 MG Oral [...] tablets) every other day 120 Tablet 3 Current Facility-Administered Medications Medication Dose Route Frequency [...] Up: Return in about 3 months (around 10/04/2023). PLAN: We discussed repeat bilateral knee corticosteroid injections today. He was in agreement. These werewell tolerated. Injection Procedure Note: BILATERAL Knee: Time [...] This chart was completed in part utilizing [employer] Speech Voice Recognition Software. Grammatical errors, random word insertions, pronoun errors, and incomplete sentences are an occasional consequence of this system due to software limitations, ambient noise, and hardware issues. Any formal questions or concerns about the content, text, or information contained within the body of this dictation should be directly addressed to the provider for clarification. Jeison Arteaga DO 07/05/2023 10:29 AM documented in this encounter Nursing Notes * Tika Nye MED ASSIST - 07/05/2023 10:16 AM EDT Patient presents today for bilateral knee injection. Previously injected 11/16/2022 documented in this encounter Plan of Treatment Upcoming Encounters Date Type Department Care Team (Latest Contact Info) Description 07/11/2023 10:05 AM EDT Hospital Encounter [facility], Operating Room [facility] [address] [place] [phone] Enio Shepherd DO [address] [place] [phone] 07/11/2023 10:05 AM EDT - 07/11/2023 10:30 AM EDT Surgery [facility], Operating Room [facility] [address] [place] [phone] Enio Shepherd DO [address] [place] [phone] ARTHROCENTESIS OR INJECTION MAJOR JOINT 07/24/2023 5:40 PM EDT Office Visit [facility] [address] [place] [address] Eldon Dowd MD [address] [place] [address] 08/20/2023 1:40 PM EDT Office Visit Nephrology, [place] [address] [facility] [place], [place] [address] Lili Rodríguez MD [address] [facility] [place], [place] [address] 10/11/2023 9:15 AM EDT Office Visit Orthopaedics [facility] [address] [facility] [address] Jeison Arteaga DO [address] [facility] [place] [address] 10/11/2023 10:00 AM EDT Nurse Only Ancillary Department, [place] [address] [place] [address] [place], Nurse Annual [facility] [address] [place] [address] 12/19/2023 10:00 AM EDT Office Visit Cardiology, [facility] [address] [facility] [address] James Reyes PACrystalC [address] [place] [address] 05/21/2024 9:00 AM EST Laboratory Laboratory, [place] [address] [place] [phone] [place], Laboratory [address] [place] [address] 05/28/2024 11:00 AM EST Office Visit Hematology/Oncolog y [facility] [address] [place] [address] Patricia Conway MD [address] [place] [address] Scheduled Orders Name Type Priority Associated Diagnoses Orde r Schedule ARTHROCENT ASP &/OR INJ MAJOR JX/BURSA W/O US Procedures Routine Primary osteoarthritis of both knees Ordered: 07/05/2023 Scheduled Procedures Name Priority Associated Diagnoses Date/Ti [...] Additional history exists CKD PHOS USE SMARTSET 54016 12/16/202312/01, 12/12/2021, 12/02/2019, Additional history exists CKD HGB USE SMARTSET 91277 05/28/202405/28, 05/28/2023, 05/22/2023, Additional history exists DTaP,Tdap,and [...] knees- Primary Primary localized osteoarthrosis, lower leg Greater trochanteric bursitis of both hips Enthesopathy of hip region documented in this encounter Administered Medications Inactive Administered Medications - up to 3 most recent administrations Medication Order MAR Action Action Date Dose Rate Site lidocaine 1% 1 mL - triamcinolone acetonide 40 mg/mL 1 mL inj 2 mL 2 mL, Injection, ONCE, On Kristen 07/05/23 at 1100, For 1 dose, Lidocaine 1% 1mL Triamcinolone Acetonide 40 mg/mL 1 mL (Final concentration = 20 mg/mL) REFRIGERATE and SHAKE WELL Given 07/05/2023 10:36 AM EDT 2 mL Knee Right lidocaine 1% 1 mL - triamcinolone acetonide 40 mg/mL 1 mL inj 2 mL 2 mL, Injection, ONCE, On Kristen 07/05/23 at 1100, For 1 dose, Lidocaine 1% 1mL Triamcinolone Acetonide 40 mg/mL 1 mL (Final concentration = 20 mg/mL) REFRIGERATE and SHAKE WELL Given 07/05/2023 10:36 AM EDT 2 mL Knee Left documented in this encounter Care Teams Electronics Design Engineer Relationship Specialty Start Date End Date Eldon Dowd MD [address] [place] [address] PCP - General Family Medicine 12/05/18 documented as of this encounter
--- OUTSIDE RECORDS SUMMARY | 2023-08-21 09:20 | External Medical Summary | Summary of Care ---
Author Name Unknown Organization [facility] Address [address] [facility] [place] [address] Phone [phone] Care Team Providers Care Ballet Soloist Name Role Phone Eldon Dowd MD Primary Care Provider +1- [phone] Reason for Visit * Reason Comments Outpatient Testing Encounter Details Date Type Department Care Team (Late st Contact Info) Description 07/05/2023 10:40 AM EDT Laboratory Laboratory, [facility] [address] [place] [phone] [facility] 132 [facility] [place] [phone] Dyslipidemia Allergies Active Allergy Reactions Criticality Noted Date [...] other day 120 Tablet 3 06/27/2023 Active documented as of this encounter (statuses [...] URI with cough 03/25/2014 017 Accelerate Clinical Trial*[id number] 08/27/2012 08/27/2012 Accelerate Clinical Trial*[id number] 08/27/2012 03/29/2015 Overview: ACCELERATE STUDY. Project # [id number], BUSINESS PROCESS EXPERT: Basil Everett MD. CRC: GENE Whitney. SUMMARY: To test the hypothesis that Evacetrapib 130 mg, in comparison to placebo, reduces the risk of major adverse coronary events in high-risk vascular disease patients. CONTACTS: During normal business hours, contact study staff at ; after hours Photography Sales Associate via the [facility] [place] cloth finishing range operator chief [phone]. 24-hour Global Study Helpline: [phone]. Lipid levels should not be ordered/obtained while this subject is in the Accelerate study. Lipids are being managed in a blinded fashion. If lipid levels are inadvertently obtained, it is important that test results are NOT provided to the patient, study doctor, testing coordinator, or other study team members. Restricted meds while in the study: 1) niacin > 250 mg, 2) gemfibrozil with a potent [id number]. Hyperglycemia 02/18/2012 01/10/2017 NSTEMI (non-ST elevated myoc [...] Room [facility] [address] [place] [phone] Enio Shepherd, [address] [place] [phone] 07/11/2023 10:05 AM EDT - 07/11/2023 10:30 AM EDT Surgery OR [facility], Operating Room [facility] [address] [place] [phone] Enio Shepherd, [address] [place] [address] ARTHROCENTESIS OR INJECTION MAJOR JOINT 07/24/2023 5:40 PM EDT Office Visit [facility] [address] [place] [phone] Eldon Dowd MD [address] [place] [address] 08/20/2023 1:40 PM EDT Office Visit Nephrology, [facility] 200 [facility] [place] [address] RodríguezLili avalos MD 200 [facility] [address] 10/11/2023 9:15 AM EDT Office Visit Orthopaedics [facility] [address] [facility] [place] [address] Jeison Arteaga DO [address] [facility] [place] [address] 10/11/2023 10:00 AM EDT Nurse Only Ancillary Department, [place] [address] [place] [address] [place], Nurse [facility] [address] [place] [address] 12/19/2023 10:00 AM EDT Office Visit Cardiology, [facility] [address] [facility] [place] [address] James Reyes PACrystalC [address] [place] [address] 05/21/2024 9:00 AM EST Laboratory Laboratory, [place] [address] [place] [address] [facility] [address] [facility] [place] [address] 05/28/2024 11:00 AM EST Office Visit Hematology/Oncolog y [employer] [address] [place] [phone] Patricia Conway MD [address] [place] [address] Pending Results Name Type Priority Associated Diagnoses Date /Time LIPID PANEL WITH DIRECT LDL IF TG IS HIGH Lab Routine Dyslipidemia 07/05/2023 10:48 AM EDT Scheduled Procedures Name Priority Associated [...] Additional history exists CKD PHOS USE SMARTSET 00743 12/16/202312/01, 12/12/2021, 12/02/2019, Additional history exists CKD HGB USE SMARTSET 35139 05/28/202405/28, 05/28/2023, 05/22/2023, Additional history exists DTaP,Tdap,and [...] as of this encounter Visit Diagnoses Diagnosis Dyslipidemia Other and unspecified hyperlipidemia Greater trochanteric bursitis of both hips Enthesopathy of hip region documented in this encounter Care Teams Ballet Soloist Relationship Specialty Start Date End Date Eldon Dowd MD [address] [place] [address] PCP - General Family Medicine 12/05/18 documented as of this encounter
--- OUTSIDE RECORDS SUMMARY | 2023-08-21 09:20 | External Medical Summary | Summary of Care ---
Author Name Unknown Organization [facility] Address [address] [place] [address] Phone [phone] Care Team Providers Care Supervisor Beet End Name Role Phone Kinjal Hernández MD Primary Care Provider +1- [phone] Reason for Visit * Reason Comments Medication Refill Encounter Details Date Type Department Care Team (Late st Contact Info) Description 07/19/2023 Refill [facility] [address] [place] [address] Kinjal Hernández MD [address] [place] [address] Encounter for long-term (current) use of medications* Allergies Active Allergy Reactions Criticality Noted Date Comments Candesartan Cilexetil 01/04/2012 hyperkalemia Atenolol 08/21/2012 Pt was told not to take this again Other reaction(s): PT WAS TOLD NEVER TO TAKE AGAIN Candesartan High 06/13/2022 Other reaction(s): HYPERKALEMIA Lisinopril Other (Please comment) High 01/16/2014 Hypotension/ Increased creatinine Other reaction(s): INCREASED CREATININE/HYPOTENSION documented as of this encounter (statuses as of 07/20/2023) Medications Medication Sig Dispensed Refills Start Date [...] DAILY 90 Tablet 3 01/22/2023 4 Active glipiZIDE ER 2.5 MG [...] 0 Active Furosemide 40 MG Oral Tablet (Lasix)Indications :HTN, goal below 140/90,Paroxysmal atrial fibrillation (HCC),Chronic diastolic congestive heart failure (HCC) Take 40mg (1 tablet) by mouth every other day, alternate with 60mg (1.5 tablets) every other day 120 Tablet 3 06/27/2023 Active Empagliflozin 10 MG Oral Tablet (Jardiance) TAKE ONE TABLET BY MOUTH IN THE MORNING 30 Tablet 5 07/20/2023 5 Active Empagliflozin 10 MG Oral Tablet (Jardiance) TAKE ONE TABLET BY MOUTH IN THE MORNING 30 Tablet 5 01/22/2023 4 Discontinue d(Refill) documented as of this encounter (statuses as of 07/20/2023) Active Problems Problem Noted Date Diagnosed Date [...] as of this encounter (statuses as of 07/20/2023) Resolved Problems Problem Noted Date Diagnosed Date Resolved Date Hypertensive kidney disease with chronic kidney disease stage III 10/30/2018 02/12/2020 Overview: Per CKD protocol Chest discomfort 02/23/2015 09/01/2016 Viral URI with cough 03/25/2014 017 Accelerate Clinical Trial*[id number] 08/27/2012 08/27/2012 Accelerate Clinical Trial*[id number] 08/27/2012 03/29/2015 Overview: ACCELERATE STUDY. Project # [id number], FIBERGLASS BOAT MAKER: Basil Everett MD. CRC: GENE Whitney. SUMMARY: To test the hypothesis that Evacetrapib 130 mg, in comparison to placebo, reduces the risk of major adverse coronary events in high-risk vascular disease patients. CONTACTS: During normal business hours, contact study staff at ; after hours Diamond Powder Mixer via the [facility] lamination machine operator [phone]. 24-hour Global Study Helpline: [phone]. Lipid levels should not be ordered/obtained while this subject is in the Accelerate study. Lipids are being managed in a blinded fashion. If lipid levels are inadvertently obtained, it is important that test results are NOT provided to the patient, study doctor, recreation program coordinator, or other study team members. Restricted meds while in the study: 1) niacin > 250 mg, 2) gemfibrozil with a potent [id number]. Hyperglycemia 02/18/2012 01/10/2017 NSTEMI (non-ST elevated myoc [...] as of this encounter (statuses as of 07/20/2023) Immunizations Name Administration Dates Next Due COVID-19 [...] encounter Miscellaneous Notes * Telephone Encounter - Tristen Romero, [facility] - 07/20/2023 11:21 AM EDT Signed Prescriptions: Disp Refills Empagliflozin 10 MG Oral Tablet (Jardiance)30 Tab*5 Sig: TAKE ONE TABLET BY MOUTH IN THE MORNINGAuthorizing Provider: KINJAL HERNÁNDEZ User: TRISTEN ROMERO documented in this encounter Plan of Treatment Upcoming Encounters Date Type Department Care Team (Latest Contact Info) Description 07/24/2023 5:40 PM EDT Office Visit [facility] [address] [facility], [place] [phone] Kinjal Hernández MD [address] [facility], [place] [address] 07/30/2023 8:00 AM EDT Hospital Encounter OR [facility], Operating Room [facility] [address] [place] [phone] Enio Shepherd, DO [address] [place] [phone] 07/30/2023 8:00 AM EDT - 07/30/2023 8:25 AM EDT Surgery OR [facility], Operating Room [facility] [address] [place] [phone] Enio Shepherd, [address] [place] [address] ARTHROCENTESIS OR INJECTION MAJOR JOINT 08/13/2023 8:00 AM EDT Office Visit Nephrology, [facility] [address] [place] [address] Lili Rodríguez MD [address] [place] [address] 09/18/2023 11:25 AM EDT Office Visit Interventional Pain Center, [facility] [address] [place] [address] Enio Shepherd, DO [address] [place] [address] 10/11/2023 9:15 AM EDT Office Visit Orthopaedics [facility] [address] [place] [address] Jeison Arteaga, [address] [facility] [place] [address] 10/11/2023 10:00 AM EDT Nurse Only Ancillary Department, [place] [address] [place] [address] [place], Nurse Annual [facility] [address] [place] [address] 12/19/2023 10:00 AM EDT Office Visit Cardiology, [facility] [address] [place] [address] James Reyes PA-C [address] [facility] [place] [address] 05/21/2024 9:00 AM EST Laboratory Laboratory, [place] [address] [place] [phone] [facility] [address] [place] [address] 05/28/2024 11:00 AM EST Office Visit Hematology/Oncolog y [facility] [place] [address] [place] [phone] Patricia Conway MD 200 [facility] [address] [place] [address] Scheduled Orders Name Type Priority Associated Diagnoses Orde r Schedule HEMOGLOBIN A1C Lab Routine Encounter for long-term (current) use of medications Expected: 07/20/2023 (Approximate), Expires: 08/18/2024 Scheduled Procedures Name Priority Associated Diagnoses Date/Ti [...] Additional history exists CKD PHOS USE SMARTSET 98262 12/16/202312/01, 12/12/2021, 12/02/2019, Additional history exists CKD HGB USE SMARTSET 61263 05/28/202405/28, 05/28/2023, 05/22/2023, Additional history exists DTaP,Tdap,and [...] Diagnosis Encounter for long-term (current) use of medications- Primary Encounter for long-term (current) use of other medications Trochanteric bursitis of right hip Enthesopathy of hip region documented in this encounter Care Teams Supervisor Beet End Relationship Specialty Start Date End Date Kinjal Hernández MD [address] [place] [address] PCP - General Family Medicine 12/05/18 documented as of this encounter
--- OUTSIDE RECORDS SUMMARY | 2023-08-21 09:20 | External Medical Summary | Summary of Care ---
Author Name Unknown Organization [facility] Address [address] [facility] [place] [address] Phone [phone] Care Team Providers Care Industrial Editor Name Role Phone Eldon Dowd MD Primary Care Provider +1- [phone] Reason for Visit * Auth/Cert Specialty Diagnoses / Procedures Referred By Urmila t Referred To Contact Diagnoses Greater trochanteric bursitis of both hips Greater trochanteric bursitis of both hips [M70.61, M70.62] Procedures ARTHROCENT ASP &/OR INJ MAJOR JX/BURSA W/O US ARTHROCENTESIS OR INJECTION MAJOR JOINT Enio Shepherd DO [address] [place] [address] Or [facility] [address] [place] [address] Referral ID Status Reason Start Date Expiration Date Visits Re quested Visits Authorized [id number] Encounter Details Date Type Department Care Team (Latest Contact Info) Description 07/11/2023 9:30 AM EDT - 07/11/2023 10:35 AM EDT Hospital Encounter OR [facility], Operating [...] as of this encounter (statuses as of 07/11/2023) Medications Medication Sig Dispensed Refills Start Date [...] DAILY 90 Tablet 1 06/06/2023 06/05/2024 Active Furosemide 40 MG Oral Tablet (Lasix)Indications: HTN, goal below 140/90,Paroxysmal atrial fibrillation (HCC),Chronic diastolic congestive heart failure (HCC) Take 40mg (1 tablet) by mouth every other day, alternate with 60mg (1.5 tablets) every other day 120 Tablet 3 06/27/2023 Active documented as of this encounter (statuses as of 07/11/2023) Active Problems Problem Noted Date Diagnosed Date [...] as of this encounter (statuses as of 07/11/2023) Resolved Problems Problem Noted Date Diagnosed Date Resolved Date Hypertensive kidney disease with chronic kidney disease stage III 10/30/2018 02/12/2020 Overview: Per CKD protocol Chest discomfort 02/23/2015 09/01/2016 Viral URI with cough 03/25/2014 017 Accelerate Clinical Trial*[id number] 08/27/2012 08/27/2012 Accelerate Clinical Trial*[id number] 08/27/2012 03/29/2015 Overview: ACCELERATE STUDY. Project # [id number], ELECTRIC FURNACE OPERATOR: Basil Everett MD. CRC: GENE Whitney. SUMMARY: To test the hypothesis that Evacetrapib 130 mg, in comparison to placebo, reduces the risk of major adverse coronary events in high-risk vascular disease patients. CONTACTS: During normal business hours, contact study staff at ; after hours Bushel Worker via the [facility] [place] [place] shield operator [phone]. 24-hour Global Study Helpline: [phone]. Lipid levels should not be ordered/obtained while this subject is in the Accelerate study. Lipids are being managed in a blinded fashion. If lipid levels are inadvertently obtained, it is important that test results are NOT provided to the patient, study doctor, teller coordinator, or other study team members. Restricted meds while in the study: 1) niacin > 250 mg, 2) gemfibrozil with a potent [id number]. Hyperglycemia 02/18/2012 01/10/2017 NSTEMI (non-ST elevated myoc [...] as of this encounter (statuses as of 07/11/2023) Immunizations Name Administration Dates Next Due COVID-19 [...] Sign Reading Time Taken Comments Blood Pressure 148/78 07/11/2023 9:54 AM EDT Pulse 86 07/11/2023 9:54 AM EDT Temperature 36.4 C (97.5 F) 07/11/2023 9:54 AM ED T Respiratory Rate 16 07/11/2023 9:54 AM EDT Oxygen Saturation 97% 07/11/2023 9:54 AM EDT Inhaled Oxygen Concentration - - Weight - - Height - - Body Mass Index - - documented in this encounter H&P Notes * Enio Shepherd DO - 07/11/2023 10:33 AM EDT Pt was scheduled to have contralateral GTB injected. 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 Prsented today and found to have received a corticosteroid shot bilaterally [address] Arteaga/Ortho. Will delay at this time for 3-4 weeks, target July 31. Also recommend consideration of genicular RFA if no surgery is indicated. Pt states left side is worse so will proceed accordingly. Schedule for in-office consultation for knee. Enio Shepherd DO OR [facility], Operating Room [facility] [address] [place] [address] documented in this encounter Nursing Notes * Meg Shahid, JASPER - 07/11/2023 10:24 AM EDT Procedure cancelled per Dr Shepherd. documented in this encounter Plan of Treatment Upcoming Encounters Date Type Department Care Team (Latest Contact Info) Description 07/24/2023 5:40 PM EDT Office Visit [facility] [address] [place] [facility] [place] [address] Eldon Dowd MD [address] [place] [address] 07/30/2023 8:00 AM EDT Hospital Encounter OR [facility], Operating Room [facility] [address] [place] [address] Enio Shepherd, DO [address] [place] [address] 07/30/2023 8:00 AM EDT - 07/30/2023 8:25 AM EDT Surgery OR [facility], Operating Room [facility] [address] [place] [phone] Enio Shepherd, DO [address] [place] [address] ARTHROCENTESIS OR INJECTION MAJOR JOINT 08/20/2023 1:40 PM EDT Office Visit Nephrology, [facility] [address] [place] [address] Lili Rodríguez MD [address] [place] [address] 09/18/2023 11:25 AM EDT Office Visit Interventional Pain Center, [facility] [address] [place] [address] Enio Shepherd, DO [address] [place], [place] [address] 10/11/2023 9:15 AM EDT Office Visit Orthopaedics [facility] [address] [place] [address] Jeison Arteaga, DO [address] [place] [address] 10/11/2023 10:00 AM EDT Nurse Only Ancillary Department, [address], [place] [address] [place], Nurse Annual Wellness [address] [facility], [place] [address] 12/19/2023 10:00 AM EDT Office Visit Cardiology, [facility] [address] [place] [address] James Ryees PA-C [address] [place] [address] 05/21/2024 9:00 AM EST Laboratory Laboratory, [place] [address] [place] [address] [place], Laboratory [address] [place] [address] 05/28/2024 11:00 AM EST Office Visit Hematology/Oncolog y [facility] [place] [address] [place] [phone] Patricia Conway MD [address] [place] [address] Scheduled Orders Name Type Priority Associated Diagnoses Order Schedule FLUORO INTERVENTIONAL PAIN PROCEDURE NONBILLABLE Medical Imaging Routine One Time for 1 Occurrences starting 07/11/2023 until 07/11/2023 Scheduled Procedures Name Priority Associated Diagnoses Date/Ti me ARTHROCENTESIS OR INJECTION MAJOR JOINT Trochanteric bursitis of right hip 07/30/2023 8:00 AM EDT Health Maintenance Due Date Last Done Comments Diabetic Eye Exam 04/25/2022 04/25/2021, , 12/30/2018 COVID-19 Vaccine ( season) 2022 01/16/2022, 07/18/2021, 02/14/2021, Additional history exists HbA1c 03/23/2023 09/21/2022, 0308/2022, 12/12/2021, Additional history exists Depression Screening 10/10/2023 10/09/2022 Diabetic Foot Exam 10/10/2023 10/09/2022, 0 08/30/2021, 10/31/2019, Additional history exists Albumin/Creatinine Ratio 12/16/20232 023, 03/22/2022, 03/30/2021, Additional history exists CKD PHOS USE SMARTSET 78565 12/16/202312/01, 12/12/2021, 12/02/2019, Additional history exists CKD HGB USE SMARTSET 42803 05/28/202405/28, 05/28/2023, 05/22/2023, Additional history exists DTaP,Tdap,and [...] Not on filedocumented as of this encounter Active and Recently Administered Medications Times are shown in EDT. Scheduled Medication Order 07/09/2023 07/10/2023 07/11/2023 Iohexol (Omnipaque 180) inj 1 mL 1 mL, Injection, ONCE, On Sun07/11/23 at 1015, For 1 dose 1015 (Due) lidocaine 1 % inj 20 mg 20 mg (2 mL), Subcutaneous, ONCE, On Sun07/11/23 at 1015, For 1 dose 1015 (Due) Triamcinolone Acetonide (Kenalog) 40 MG/ML inj 40 mg 40 mg, Injection, ONCE, On Sun07/11/23 at 1015, For 1 dose 1015 (Due) documented in this encounter Care Teams Industrial Editor Relationship Specialty Start Date End Date Eldon Dowd MD [address] [place], [place] [phone] PCP - General Family Medicine 12/05/18 documented as of this encounter
--- OUTSIDE RECORDS SUMMARY | 2023-08-21 09:20 | External Medical Summary | Summary of Care ---
Author Name Unknown Organization [facility] Address [address] [facility] [place] [address] Phone [phone] Care Team Providers Care Security Assurance Analyst Name Role Phone Eldon Dowd MD Primary Care Provider [phone] Reason for Visit * Auth/Cert Specialty Diagnoses / Procedures Referred By Urmila t Referred To Contact Diagnoses Greater trochanteric bursitis of both hips Greater trochanteric bursitis of both hips [M70.61, M70.62] Procedures ARTHROCENT ASP &/OR INJ MAJOR JX/BURSA W/O US ARTHROCENTESIS OR INJECTION MAJOR JOINT Enio Shepherd DO [address] [place] [address] Or [facility] [address] [place] [address] Referral ID Status Reason Start Date Expiration Date Visits Re quested Visits Authorized [id number] Encounter Details Date Type Department Care Team (Latest Contact Info) Description 06/20/2023 8:44 AM EDT - 06/20/2023 10:16 AM EDT Hospital Encounter OR [facility], Operating [...] as of this encounter (statuses as of 06/20/2023) Medications Medication Sig Dispensed Refills Start Date [...] for pain 30 Tablet 0 03/01/2023 Active Fluconazole 100 MG Oral Tablet (Diflucan) Take 1 tab by mouth daily for 10 days 10 Tablet 0 03/09/2023 Active Additional Information Patient not taking.Reported on 04/05/2023 Amoxicillin 500 MG Oral Capsule (Amoxil) Take [...] DAILY 90 Tablet 1 06/06/2023 06/05/2024 Active documented as of this encounter (statuses as of 06/20/2023) Active Problems Problem Noted Date Diagnosed Date [...] as of this encounter (statuses as of 06/20/2023) Resolved Problems Problem Noted Date Diagnosed Date Resolved Date Hypertensive kidney disease with chronic kidney disease stage III 10/30/2018 02/12/2020 Overview: Per CKD protocol Chest discomfort 02/23/2015 09/01/2016 Viral URI with cough 03/25/2014 017 Accelerate Clinical Trial*[id number] 08/27/2012 08/27/2012 Accelerate Clinical Trial*[id number] 08/27/2012 03/29/2015 Overview: ACCELERATE STUDY. Project # [id number], CAB STATION ATTENDANT: Basil Everett MD. CRC: GENE Whitney. SUMMARY: To test the hypothesis that Evacetrapib 130 mg, in comparison to placebo, reduces the risk of major adverse coronary events in high-risk vascular disease patients. CONTACTS: During normal business hours, contact study staff at ; after hours Structural Steel Ironworker via the [facility] hospital cutting and printing machine operator [phone]. 24-hour Global Study Helpline: [phone]. Lipid levels should not be ordered/obtained while this subject is in the Accelerate study. Lipids are being managed in a blinded fashion. If lipid levels are inadvertently obtained, it is important that test results are NOT provided to the patient, study doctor, multimedia services coordinator, or other study team members. Restricted meds while in the study: 1) niacin > 250 mg, 2) gemfibrozil with a potent [id number]. Hyperglycemia 02/18/2012 01/10/2017 NSTEMI (non-ST elevated myoc [...] as of this encounter (statuses as of 06/20/2023) Immunizations Name Administration Dates Next Due COVID-19 [...] Sign Reading Time Taken Comments Blood Pressure 143/79 06/20/2023 10:03 AM EDT Pulse 80 06/20/2023 10:03 AM EDT Temperature 36.1 C (96.9 F) 06/20/2023 10:03 AM E DT Respiratory Rate 15 06/20/2023 10:03 AM EDT Oxygen Saturation 99% 06/20/2023 10:03 AM EDT Inhaled Oxygen Concentration - - Weight - - Height - - Body Mass Index - - documented in this encounter Discharge Instructions * Discharge Instr - AVS* Enio Shepherd DO - 06/20/2023 10:01 AM EDT [facility] [address] [place] [address] Discharge Date: 06/20/2023 [facility] at [phone] during business hours. For after-hours emergencies call 911. Your attending physician at the time of your discharge was: Enio Shepherd DO [address] [facility] [address] The information below provides you with the [...] unless otherwise instructed by your family physician, surgical lead or the anticoagulation clinic. Additional Instructions: Please [...] work or school: N/A Follow Up: Please schedule the same injection for your left side at our soonest mutual convenience with our office when you check out today. documented in this encounter Progress Notes * Enio Shepherd DO - 06/20/2023 10:01 AM EDT [facility] [address] [facility] [address] OUTPATIENT SURGERY DISCHARGE SUMMARY NOTE Name: Teodoro Arceo Location: OR [facility]/[place] Date: 06/20/2023 Time: 10:01 AM Surgery Date: 06/20/2023 Procedure: ARTHROCENTESIS MAJOR JOINT OR BURSA, ASPIRATION OR INJECTION, ULTRASOUND GUIDED Right Surgeon: Enio Shepherd DO Discharge Diagnosis: greater trochanteric bursitis After examination of this patient, I have determined he is ready for discharge to home when the patient meets criteria. Discharge instructions were given to the patient. Enio Shepherd DO OR [facility], Operating Room [facility] [address] [facility] [address] documented in this encounter H&P Notes * Enio Shepherd DO - 06/20/2023 9:19 AM EDT Interventional Pain H&P Subjective: History of Present Illness: Teodoro Arceo is a 88 year old year-old male with a past medical history significant for bilateral greater trochanteric bursa pain who is presenting for bilateral GTB corticosteroid injection under U/S to improve his pain and function. his [...] study not interpreted or resulted by a [employer] or [employer] contracted radiologist. Objective Physical Exam: Vital Signs: There were no vitals taken for this visit. There is no height or weight on file to calculate BMI. General: No apparent distress. Eyes: pupils equal and round, sclera white, pupils midsize. ENT: mucous membranes moist Resp: Non-labored breathing CV: Extremities warm and well-perfused. Psych: Oriented; affect warm, insight good. Skin: No rashes or lesions appreciated on exposed skin Neuromuscular Exam: TTP bilateral GTB Assessment: Teodoro is a 88 year old year-old male with: Bilateral greater trochanteric bursitis Chronic lateral hip pain Plan: The patient is undergoing right GTB corticosteroid injection under U/S guidance today to alleviate his pain and improve his function. The risks, benefits and alternatives to the procedure were reviewed at length and the patient was provided the opportunity to ask questions which were answered to their voiced understanding. Following this comprehensive discussion, the patient opted to proceed. Thepatient was consented to the procedure following this comprehensive conversation. Due to history of brittle diabetes control, will complete right side today and will have patient follow-up in 2-3 weeks for second side to be completed if DM reasonably controlled at that time. A1C most recently <8 but >13 in fall 2022. Reports history of hyperglycemia following steroid injection. Enio Shepherd DO OR [facility], Operating Room [facility] [address] [facility] [address] documented in this encounter Nursing Notes * Cristina Bates RN - 06/20/2023 10:16 AM EDT Pt tolerated procedure well. Pt has been visited by Dr. Shepherd. Discharge instructions reviewed with pt and pt has verbalized understanding of these teachings. Pt ready for discharge. * June Sherman RN - 06/20/2023 9:59 AM EDT Band aid applied to area. Patient transferred to PACU 11 via wheelchair * June Sherman RN - 06/20/2023 9:58 AM EDT Patient tolerating pain management injection well. documented in this encounter OR Notes * OR Surgeon - Enio Shepherd DO - 06/20/2023 9:58 AM EDT Ultrasound Guided Hip Bursa Injection PHYSICIAN: Enio Shepherd DO PREOPERATIVE DIAGNOSIS: Right greater trochanteric bursitis POSTOPERATIVE DIAGNOSIS: Righyt greater trochanteric bursitis PROCEDURES PERFORMED: 1. Right greater trochanteric bursa injection. 2. Ultrasound-guided for precise needle placement. ANESTHESIA: Local anesthetic. MEDICATIONS: No current facility-administered medications for this encounter. ALLERGIES: Review of patient's allergies indicates: Allergen [...] male with past medical history significant for right greater trochanteric bursitis who desires right greater trochanteric bursa injection today under ultrasound guidance. The patient also has left greater trochanteric bursitis but this was deferred due to poorly controlled diabetes. REVIEW OF SYSTEMS: Negative for fever, chills, chest pain, shortness of breath, bleeding abnormalities, nausea, vomiting, edema, or new rashes. FOCUSED PHYSICAL EXAMINATION: The patient is awake, alert and oriented, no acute distress. Vital signs are stable. The patient is afebrile. On exam, there is tenderness to palpation in right greater trochanteric bursa. The rest of physical examination is unchanged from recent visit to our office. I explained the procedure to the patient including risks, benefits and alternatives to the procedure. The patient verbalized understanding and was willing to proceed. PROCEDURE IN DETAIL: An informed consent was obtained. The patient was positively identified by theaff and attending physician. A timeout was performed. The patient was positioned in the left lateral decubitus position. Ultrasound was utilized to identify the greater trochanter along with the glu teus minimus and gluteus medius tendon. A sterile field was established using ChloraPrep. The skin was infiltrated with lidocaine 1% using a 1.5 inch 25G needle. A 20-gauge 4 inch stimuplex needle was used to traverse soft tissue into the greater trochanteric bursa on the right side using in-plane technique. The injectate consisting of 40mg of triamcinolone diluted in 4 mL of lidocaine 1% was then injected. The patient tolerated the procedure well. There were no complications. All needles were withdrawn and discarded appropriately. DISPOSITION: 1. Return to clinic in 2-3 weeks for left GTB injection under ultrasound. 2. Resume activity as tolerated. 3. Patient can drive after 12-24 hours if no weakness noted. Enio Shepherd DO OR [facility], Operating Room [facility] [address] [place] [address] documented in this encounter Plan of Treatment Upcoming Encounters Date Type Department Care Team (Latest Contact Info) Description 06/22/2023 9:30 AM EDT Office Visit Cardiology, [facility] [address] [place] [address] James Reyes PA-C [address] [place] [address] 06/27/2023 7:45 AM EDT Telemedicine Orthopaedics [facility] [address] [place] [address] Aaron Boss MD [address] [place] [address] 07/05/2023 10:15 AM EDT Office Visit Orthopaedics [facility] [address] [place] [address] Jeison Arteaga DO [address] [place] [address] 07/11/2023 10:05 AM EDT Hospital Encounter OR [facility], Operating Room [facility] [address] [place] [address] Enio Shepherd DO [address] [place] [address] 07/11/2023 10:05 AM EDT - 07/11/2023 10:30 AM EDT Surgery OR [facility], Operating Room [facility] [address] [place], [place] [address] Enio Shepherd, DO [address] [place] [address] ARTHROCENTESIS OR INJECTION MAJOR JOINT 07/24/2023 5:40 PM EDT Office Visit Family [facility], [place] [address] [place] [address] Eldon Dowd MD [address] [place] [address] 08/20/2023 1:40 PM EDT Office Visit Nephrology, [facility] [address] [place] [address] Lili Rodríguez MD [address] [facility] [place] [address] 10/11/2023 10:00 AM EDT Nurse Only Ancillary Department, [place] [address] [place] [address] [place], Nurse [facility] [address] [place] [address] 05/21/2024 9:00 AM EST Laboratory Laboratory, [place] [address] [facility] [address] [place], Laboratory [address] [place] [facility] [place] [address] 05/28/2024 11:00 AM EST Office Visit Hematology/Oncolog y [facility] [address] [facility] [place] [address] Patricia Conway MD [address] [place] [address] Scheduled Procedures Name Priority Associated Diagnoses Date/Ti me ARTHROCENTESIS OR INJECTION MAJOR JOINT Greater trochanteric bursitis of both hips 06/20/2023 9:45 AM EDT ARTHROCENTESIS OR INJECTION MAJOR JOINT Greater trochanteric [...] Additional history exists CKD PHOS USE SMARTSET 69444 12/16/202312/01, 12/12/2021, 12/02/2019, Additional history exists CKD HGB USE SMARTSET 83862 05/28/202405/28, 05/28/2023, 05/22/2023, Additional history exists DTaP,Tdap,and [...] 20 mg (2 mL), Subcutaneous, ONCE, On Sun06/20/23 at 0945, For 1 dose Given 06/20/2023 9:53 AM EDT 4 mL O ther-Specify Triamcinolone Acetonide (Kenalog) 40 MG/ML inj 40 mg 40 mg, Injection, ONCE, On Sun06/20/23 at 0945, For 1 dose Given 06/20/2023 9:58 AM EDT 40 mg documented in this encounter Active and Recently Administered Medications Times are shown in EDT. Scheduled Medication Order 06/18/2023 06/19/2023 06/20/2023 lidocaine 1 % inj 20 mg (COMPLETED) 20 mg (2 mL), Subcutaneous, ONCE, On Sun06/20/23 at 0945, For 1 dose 0953 (Given - Provid er: June Sherman RN) Triamcinolone Acetonide (Kenalog) 40 MG/ML inj 40 mg (COMPLETED) 40 mg, Injection, ONCE, On Sun06/20/23 at 0945, For 1 dose 0958 (Given - Provid er: June Sherman RN) documented in this encounter Care Teams Security Assurance Analyst Relationship Specialty Start Date End Date Eldon Dowd MD [address] [place], [place] [id number] PCP - General Family Medicine 12/05/18 documented as of this encounter
[2023-08-21] MEDS: PSYLLIUM or GUAR GUM FIBER 4GM PACKET PO SCH (09:28)
[2023-08-21] MEDS: ENOXAPARIN INJ 30 MG/0.3 ML SYR SQ SCH (09:28)
[2023-08-21] MEDS: ASPIRIN 81 MG ECTAB PO SCH (09:29)
[2023-08-21] MEDS: SOTALOL HCL 80 MG TAB PO SCH (09:29)
[2023-08-21] MEDS: predniSONE 10 MG TABLET PO SCH (09:29)
[2023-08-21] MEDS: ATORVASTATIN 40 MG TAB PO SCH (09:29)
[2023-08-21] MEDS: FINASTERIDE 5 MG TAB PO SCH (09:29)
[2023-08-21] MEDS: LANTUS PER UNIT CHARGE SQ SCH (09:30)
[2023-08-21] MEDS: ACETAMINOPHEN 325 MG TAB PO PRN (11:11)
[2023-08-21 12:19] LABS: Influenza A virus by PCR Negative (Neg); Influenza B virus by PCR Negative (Neg); RSV by PCR Negative (Neg); SARS CoV2 RNA(COVID-19) Ceph NEGATIVE (Negative)
[2023-08-21] MEDS: NYSTATIN SUSP 500,000 U/5 ML UDC PO SCH (13:30)
--- NOTE | 2023-08-21 13:37 | CT Scan Report ---
CT OF THE CHEST WITHOUT IV CONTRAST CLINICAL HISTORY: Fever. Evaluate for pneumonia. COMPARISON STUDY: Chest CT February 26, 2023. Chest radiograph August 20, 2023. CT DOSE: 291.11 mGy.cm TECHNIQUE: Axial images of the chest were obtained without IV contrast. Images were reviewed in the axial, sagittal, and coronal planes. IV contrast was not administered for this examination. Automat ed exposure control was utilized for the study. A dose lowering technique was utilized adhering to t he principles of ALARA. FINDINGS: No enlarged axillary, mediastinal or hilar lymph nodes are present. There is cardiomegaly and moderate coronary artery calcification. No pericardial effusion is present. There is a trace left pleural effusion. No pneumothorax. Subpleural ground glass opacities represent atelectasis. There ar e subtle groundglass opacities within the right upper lobe, new since chest CT of February 26, 2023. No confluent consolidation is present. Severe degenerative changes of the bilateral shoulders are not ed. A fluid collection along the superior aspect of the distal left clavicle measures at least 5 cm. This is partially imaged on this exam and corresponds to the finding on radiograph of August 20, 2023. T his is indeterminate but may be related to chronic rotator cuff tear. IMPRESSION: 1. Subtle ground glass opacities within the right upper lobe suggestive of a mild infectious process. No consolidation. 2. Trace left pleural effusion. No pneumothorax. 3. No thoracic lymphadenopathy. ACT 112: Negative or not required by law. Electronically signed by: Marcial Quintero M.D. 08/21/2023 1:36 PM
[2023-08-21] MEDS ORDERED: VANCOMYCIN CONSULT ACTIVE PRN (15:33)
--- NOTE | 2023-08-21 15:50 | Electrocardiogram Report ---
Test Reason : Blood Pressure : / mmHG Vent. Rate : 090 BPM Atrial Rate : 090 BPM P-R Int : 180 ms QRS Dur : 090 ms QT Int : 374 ms P-R-T Axes : 021 -06 148 degrees QTc Int : 457 ms Sinus rhythm with Premature atrial complexes Poor R wave progression, consider anterior NC vs. lead placement vs. LVH Abnormal ECG When compared with ECG of 27-FEB-2023 16:20, T wave inversion no longer evident in Anterior leads Confirmed by Arjun Langford ([id number]) on 08/21/2023 3:49:54 PM Referred By: REFERRED SELF Confirmed By:Arjun Langford
[2023-08-21] MEDS: PIPERACILLIN/TAZOBACTAM 4.5 GM in DEXTROSE 5% MINI-B 100 ML IV ONE (16:35)
[2023-08-21] MEDS: VANCOMYCIN HCL 1,250 MG in SODIUM CHLORIDE 0.9% 250 ML IV ONE (17:08)
[2023-08-21] MEDS ORDERED: COUGH DROP (SUGAR FREE) LOZ 24 LOZ/1 BOX BUCCAL PRN (18:03)
[2023-08-21] MEDS: COUGH DROP (SUGAR FREE) LOZ 24 LOZ/1 BOX BUCCAL ONE (18:32)
[2023-08-21] MEDS: PIPERACILLIN/TAZOBACTAM 4.5 GM in DEXTROSE 5% MINI-B 100 ML IV SCH (20:39)
[2023-08-22 00:26] LABS: A calco-baum cmplx NotReported Not Detected (NotDetected); Bact fragilis Not Reported Not Detected (NotDetected); Blood Culture Id Panel See PCR Comment (NotDetected); C auris Not Reported Not Detected (NotDetected); CTX-M Resistant Gene Not Detected (NotDetected); Calbicans Not Reported Not Detected (NotDetected); Candida glabrata Not Reported Not Detected (NotDetected); Candida krusei Not Reported Not Detected (NotDetected); Cneoformans/gatti Not Reported Not Detected (NotDetected); Cparapsilosis Not Reported Not Detected (NotDetected); E cloacae compx Not Reported Not Detected (NotDetected); Efaecalis Not Reported Not Detected (NotDetected); Efaecium Not Reported Not Detected (NotDetected); Enterobacterales DETECTED (NotDetected); Enterobacterales Not Reported DETECTED (NotDetected); Escherichia coli Not Reported DETECTED (NotDetected); H influenzae Not Reported Not Detected (NotDetected); IMP Resistant Gene Not Detected (NotDetected); K aerogenes Not Reported Not Detected (NotDetected); KPC Resistant Gene Not Detected (NotDetected); Koxytoca Not Reported Not Detected (NotDetected); Kpneumoniae grp Not Reported DETECTED (NotDetected); Lmonocyt Not Reported Not Detected (NotDetected); N meningitidis Not Reported Not Detected (NotDetected); NDM Resistant Gene Not Detected (NotDetected); OXA 48 Like Resistant Gene Not Detected (NotDetected); P aeruginosa Not Reported Not Detected (NotDetected); Proteus spp Not Reported Not Detected (NotDetected); Salmonella spp Not Reported Not Detected (NotDetected); Smarcescens Not Reported Not Detected (NotDetected); Staph lugdunensis Not Reported Not Detected (NotDetected); Staph spp. Not Reported Not Detected (NotDetected); Staphaureus Not Reported Not Detected (NotDetected); Staphepi Not Reported Not Detected (NotDetected); Stenmaltophilia Not Reported Not Detected (NotDetected); Strep agal(GrpB) Not Reported Not Detected (NotDetected); Strep pneum Not Reported Not Detected (NotDetected); Strep pyog (GrpA) Not Reported Not Detected (NotDetected); Strep spp Not Reported Not Detected (NotDetected); VIM Resistant Gene Not Detected (NotDetected); mcr-1 Colistin Resistant Gene Not Detected (NotDetected)
[2023-08-22] MEDS: VANCOMYCIN HCL 1,500 MG in SODIUM CHLORIDE 0.9% 500 ML IV SCH (00:32)
[2023-08-22 01:48] LABS: Klebsiella pneumoniae group DETECTED (NotDetected)
--- NOTE | 2023-08-22 02:06 | Communication Note ---
Date of Service: August 22, 2023 Made aware by RN of bacteremia on blood cultures. Change to full admission.
[2023-08-22 05:32] LABS: Appearance Urine Cloudy (Clear); Bacteria Urine Automated None Seen (None Seen); Bilirubin Urine Negative (Negative); Blood Urine Negative (Negative); Color Urine Yellow; Epithelial Cell Urine Auto 0-2 /hpf (0-2); Glucose Urine UA 3+ (Negative); Ketones Urine Negative (Negative); Leukocyte Esterase Urine Negative (Negative); Nitrite Urine Negative (Negative); Protein Urine 1+ (Negative); RBC Urine Automated 0-2 /hpf (0-2); Specific Gravity Urine 1.029 (1.000-1.030); Urobilinogen Urine Negative (Negative); WBC Urine Automated 0-5 /hpf (0-5)
[2023-08-22 07:41] LABS: Hematocrit (blood only) 38.1 % (42.0-52.0); Hemoglobin 12.2 g/dl (14.0-18.0); Mean Corpuscular Volume 87.4 fL (80.0-100.0); Mean Platelet Volume 9.7 fL (9.4-12.4); Platelet Count 117 K/uL (130-400); RDW Coefficient of Variation 17.6 % (11.5-14.5); RDW Standard Deviation 56.2 fL (36.4-46.3); Red Blood Count 4.36 M/uL (4.70-6.10); White Blood Count 9.59 K/ul (4.8-10.8)
[2023-08-22 07:54] LABS: BUN Creatinine Ratio 37.7 (10-20); Calcium 8.1 mg/dl (8.6-10.3); Creatinine Clr Calc Pharmacy 61.8 ml/min; Est GFR (African American) 97.6 ml/min; Est GFR (Non-African American) 84.2 ml/min; Magnesium 1.7 mg/dl (1.7-2.4); Phosphorus 2.2 mg/dl (2.5-4.9); Potassium 3.6 mmol/L (3.5-5.1)
[2023-08-22 08:03] LABS: Basophils # (auto) 0.02 K/uL (0.00-0.20); Basophils % (auto) 0.2 %; Echinocytes 1+; Eosinophils # (auto) 0.02 K/uL (0.00-0.50); Eosinophils % (auto) 0.2 %; Immature Granulocytes # (auto) 0.14 K/uL (0.01-0.20); Immature Granulocytes % (auto) 1.5 %; Lymphocytes # (auto) 0.36 K/uL (1.20-3.40); Lymphocytes % (auto) 3.8 %; Monocytes # (auto) 0.28 K/uL (0.11-0.59); Monocytes % (auto) 2.9 %; Neutrophils # (auto) 8.77 K/uL (1.40-6.50); Neutrophils % (auto) 91.4 %; Polychromasia 1+; Tear Drop Cells 1+; Toxic Vacuolation 1+
[2023-08-22] MEDS: predniSONE 5 MG TAB PO SCH (08:51)
--- NOTE | 2023-08-22 13:05 | Hospitalist Progress Note ---
Date of Service August 22, 2023 Assessment & Plan (1) TIA (transient ischemic attack): Plan: Initially presented as poss. TIA w/ as transient left facial weakness witnessed by family ? Possible aspirin failure PAF, off anticoagulation secondary to risks, patient currently NSR Medical telemetry Neurochecks Plavix for possible aspirin failure initially MRI/MRA brain Re: TIA additional stroke workup contingent on MRI results , MRI brain negative Bacteremia pt febrile after admission - infectious work up obtained urine cloudy but w/o bacteria chest CT - 1. Subtle ground glass opacities within the right upper lobe suggestive of a mild infectious process. No consolidation. 2. Trace left pleural effusion. No pneumothorax. 3. No thoracic lymphadenopathy. Poss. RUL pna - pt started on iv zosyn + vanco wound on buttock area - wound care consulted Blood cultx - positive for GNB Cont. broad spectrum abx ID consulted Pt has a visible "lump" on his L shoulder - per family it's being drained q3 weeks by [facility], last time about a week ago, however no tenderness and no redness noted on exam Topical nystatin in place of oral fluconazole started by PCP for oral thrush (Concern for QTc prolongation with concomitant administration of fluconazole with patient's sotalol) Decrease maintenance prednisone dose from 10 mg to 5 mg daily for inflammatory arthritis given concern for long-term adverse effects (fungal infection, poorly controlled DM, possible myopathy in patient) Difficulty swallowing - pt noted to have difficulty swallowing and speech eval was ordered - per speech - pt does not have issues with oral or pharyngeal phases of the swallow but he has no clearance of items from his esophagus and swallowed items were observed re-entering the pharyngeal cavity and being aspirated. NPO with GI to address his esophageal functioning. 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 Vinod Arceo, contact #[phone]. Mr. Salvatore Arceo, contact #[phone]. Admission and Anticipated Discharge Date Admission Date: August 22, 2023 Subjective Pt seen in follow up of bacteremia, initially presented as poss. TIA Then had fever after admission - infectious work-up obtained and blood cultx posit. Currently sitting up in bed in [facility], family present at the bedside denies any chest pain, shortness of breath, abd. pain, n/v Family reports weight loss 16 lbs since last year, also report that pt gets his L shoulder "lump" drained - last time about a week ago Pt states overall he feels better Contacted from speech about his video swallow - GI consulted Review of Systems Review of Systems: All systems reviewed & are unremarkable except as noted in Subjective Physical Exam Physical Exam: GENERAL: WD/WN elderly M in NAD, + chronically ill appearing HEENT: NC/AT, EOMI NECK : Supple CHEST : Decreased breath sounds, no wheezing HEART : RRR, no obvious murmurs ABDOMEN: soft, no distention, nontender, + bowel sounds EXTREMITIES : No LE swelling/tenderness, chronic left shoulder tenderness w/ chronic "lump" NEUROLOGIC : awake and alert, able to answer simple questions appropriately, no facial asymmetry, slightly hard of hearing,moves extremities SKIN: warm, dry Results & Data Results & Data Vital Signs (Past 12 Hours) Vital Signs Temp Pulse Pulse Resp BP Pulse Ox O2 Del Method 08/22/23 10:49 36.8 C 89 14 129/74 94 Room Air 08/22/23 09:30 Room Air 08/22/23 07:58 37.1 C 91 H 15 153/68 H 94 Room Air 08/22/23 07:17 83 08/22/23 04:03 36.5 C 70 20 145/73 H 96 Room Air Laboratory Results 08/22/23 08/22/23 08/22/23 Range/Units 12:11 08:21 06:31 WBC 9.59 (4.8-10.8) K/ul RBC 4.36 L (4.70-6.10) M/uL Hgb 12.2 L (14.0-18.0) g/dl Hct 38.1 L (42.0-52.0) % MCV 87.4 (80.0-100.0) fL MCH 28.0 (25.0-34.0) pg MCHC 32.0 (32.0-36.0) g/dL RDW Std Deviation 56.2 H (36.4-46.3) fL RDW Coeff of Coty 17.6 H (11.5-14.5) % Plt Count 117 L (130-400) K/uL MPV 9.7 (9.4-12.4) fL Immature Gran % (Auto) 1.5 % Neut % (Auto) 91.4 % Lymph % (Auto) 3.8 % Seneca % (Auto) 2.9 % Eos % (Auto) 0.2 % Baso % (Auto) 0.2 % Neut # (Auto) 8.77 H (1.40-6.50) K/uL Lymph # (Auto) 0.36 L (1.20-3.40) K/uL Sen[place] # (Auto) 0.28 (0.11-0.59) K/uL Eos # (Auto) 0.02 (0.00-0.50) K/uL Baso # (Auto) 0.02 (0.00-0.20) K/uL Immature Gran # (Auto) 0.14 (0.01-0.20) K/uL Toxic Vacuolation 1+ Polychromasia 1+ Tear Drop Cells 1+ Echinocytes 1+ Sodium 136 (136-145) mmol/L Potassium 3.6 (3.5-5.1) mmol/L Chloride 105 (98-107) mmol/L Carbon Dioxide 26 (21-32) mmol/L Anion Gap 5 (3-11) BUN 26 H (6-23) mg/dl Creatinine 0.69 (0.6-1.4) mg/dl Est Cr Clr Drug Dosing 61.8 ml/min Est GFR ( Amer) 97.6 ml/min Est GFR (Non-Af Amer) 84.2 ml/min BUN/Creatinine Ratio 37.7 H (10-20) Glucose 133 H (70-99(Fasting)) mg/dl POC Glucose 226 H 154 H (70-99) mg/dl Calcium 8.1 L (8.6-10.3) mg/dl Phosphorus 2.2 L (2.5-4.9) mg/dl Magnesium 1.7 (1.7-2.4) mg/dl Urine Color Urine Appearance (Clear) Urine pH (4.5-7.5) Ur Specific Palmer (1.000-1.030) Urine Protein (Negative) Urine Glucose (UA) (Negative) Urine Ketones (Negative) Urine Blood (Negative) Urine Nitrite (Negative) Urine Bilirubin (Negative) Urine Urobilinogen (Negative) Ur Leukocyte Esterase (Negative) Urine WBC (Auto) (0-5) /hpf Urine RBC (Auto) (0-2) /hpf U Hyaline Cast (Auto) (0-2) /lpf U Epithel Cells (Auto) (0-2) /hpf Urine Bacteria (Auto) (None Seen) Enterobacterales (PCR) (NotDetected) E. coli (PCR) (NotDetected) K. pneumoniae group (PCR) (NotDetected) mcr-1 Colistin Res Gene PCR (NotDetected) blaIMP Car res Gene PCR (NotDetected) KPC-Carbap Res Gene PCR (NotDetected) blaNDM Car Res Gene PCR (NotDetected) OXA-48 Carbapenem Resis Gene (PCR) (NotDetected) blaVIM Car Res Gene PCR (NotDetected) CTX-M Gene Resistance (PCR) (NotDetected) Bld Cult ID Panel PCR (NotDetected) 08/22/23 08/21/23 08/21/23 Range/Units 05:04 20:21 16:52 WBC (4.8-10.8) K/ul RBC (4.70-6.10) M/uL Hgb (14.0-18.0) g/dl Hct (42.0-52.0) % MCV (80.0-100.0) fL MCH (25.0-34.0) pg MCHC (32.0-36.0) g/dL RDW Std Deviation (36.4-46.3) fL RDW Coeff of Coty (11.5-14.5) % Plt Count (130-400) K/uL MPV (9.4-12.4) fL Immature Gran % (Auto) % Neut % (Auto) % Lymph % (Auto) % Seneca % (Auto) % Eos % (Auto) % Baso % (Auto) % Neut # (Auto) (1.40-6.50) K/uL Lymph # (Auto) (1.20-3.40) K/uL Sen[place] # (Auto) (0.11-0.59) K/uL Eos # (Auto) (0.00-0.50) K/uL Baso # (Auto) (0.00-0.20) K/uL Immature Gran # (Auto) (0.01-0.20) K/uL Toxic Vacuolation Polychromasia Tear Drop Cells Echinocytes Sodium (136-145) mmol/L Potassium (3.5-5.1) mmol/L Chloride (98-107) mmol/L Carbon Dioxide (21-32) mmol/L Anion Gap (3-11) BUN (6-23) mg/dl Creatinine (0.6-1.4) mg/dl Est Cr Clr Drug Dosing ml/min Est GFR ( Amer) ml/min Est GFR (Non-Af Amer) ml/min BUN/Creatinine Ratio (10-20) Glucose (70-99(Fasting)) mg/dl POC Glucose 279 H 367 H* (70-99) mg/dl Calcium (8.6-10.3) mg/dl Phosphorus (2.5-4.9) mg/dl Magnesium (1.7-2.4) mg/dl Urine Color Yellow Urine Appearance Cloudy A (Clear) Urine pH 5.0 (4.5-7.5) Ur Specific Palmer 1.029 (1.000-1.030) Urine Protein 1+ H (Negative) Urine Glucose (UA) 3+ H (Negative) Urine Ketones Negative (Negative) Urine Blood Negative (Negative) Urine Nitrite Negative (Negative) Urine Bilirubin Negative (Negative) Urine Urobilinogen Negative (Negative) Ur Leukocyte Esterase Negative (Negative) Urine WBC (Auto) 0-5 (0-5) /hpf Urine RBC (Auto) 0-2 (0-2) /hpf U Hyaline Cast (Auto) 3-5 H (0-2) /lpf U Epithel Cells (Auto) 0-2 (0-2) /hpf Urine Bacteria (Auto) None Seen (None Seen) Enterobacterales (PCR) (NotDetected) E. coli (PCR) (NotDetected) K. pneumoniae group (PCR) (NotDetected) mcr-1 Colistin Res Gene PCR (NotDetected) blaIMP Car res Gene PCR (NotDetected) KPC-Carbap Res Gene PCR (NotDetected) blaNDM Car Res Gene PCR (NotDetected) OXA-48 Carbapenem Resis Gene (PCR) (NotDetected) blaVIM Car Res Gene PCR (NotDetected) CTX-M Gene Resistance (PCR) (NotDetected) Bld Cult ID Panel PCR (NotDetected) 08/21/23 08/21/23 Range/Units 16:50 12:02 WBC (4.8-10.8) K/ul RBC (4.70-6.10) M/uL Hgb (14.0-18.0) g/dl Hct (42.0-52.0) % MCV (80.0-100.0) fL MCH (25.0-34.0) pg MCHC (32.0-36.0) g/dL RDW Std Deviation (36.4-46.3) fL RDW Coeff of Coty (11.5-14.5) % Plt Count (130-400) K/uL MPV (9.4-12.4) fL Immature Gran % (Auto) % Neut % (Auto) % Lymph % (Auto) % Sen[place] % (Auto) % Eos % (Auto) % Baso % (Auto) % Neut # (Auto) (1.40-6.50) K/uL Lymph # (Auto) (1.20-3.40) K/uL Sen[place] # (Auto) (0.11-0.59) K/uL Eos # (Auto) (0.00-0.50) K/uL Baso # (Auto) (0.00-0.20) K/uL Immature Gran # (Auto) (0.01-0.20) K/uL Toxic Vacuolation Polychromasia Tear Drop Cells Echinocytes Sodium (136-145) mmol/L Potassium (3.5-5.1) mmol/L Chloride (98-107) mmol/L Carbon Dioxide (21-32) mmol/L Anion Gap (3-11) BUN (6-23) mg/dl Creatinine (0.6-1.4) mg/dl Est Cr Clr Drug Dosing ml/min Est GFR ( Amer) ml/min Est GFR (Non-Af Amer) ml/min BUN/Creatinine Ratio (10-20) Glucose (70-99(Fasting)) mg/dl POC Glucose 410 H* (70-99) mg/dl Calcium (8.6-10.3) mg/dl Phosphorus (2.5-4.9) mg/dl Magnesium (1.7-2.4) mg/dl Urine Color Urine Appearance (Clear) Urine pH (4.5-7.5) Ur Specific Palmer (1.000-1.030) Urine Protein (Negative) Urine Glucose (UA) (Negative) Urine Ketones (Negative) Urine Blood (Negative) Urine Nitrite (Negative) Urine Bilirubin (Negative) Urine Urobilinogen (Negative) Ur Leukocyte Esterase (Negative) Urine WBC (Auto) (0-5) /hpf Urine RBC (Auto) (0-2) /hpf U Hyaline Cast (Auto) (0-2) /lpf U Epithel Cells (Auto) (0-2) /hpf Urine Bacteria (Auto) (None Seen) Enterobacterales (PCR) DETECTED A (NotDetected) E. coli (PCR) DETECTED A (NotDetected) K. pneumoniae group (PCR) DETECTED A (NotDetected) mcr-1 Colistin Res Gene PCR Not Detected (NotDetected) blaIMP Car res Gene PCR Not Detected (NotDetected) KPC-Carbap Res Gene PCR Not Detected (NotDetected) blaNDM Car Res Gene PCR Not Detected (NotDetected) OXA-48 Carbapenem Resis Gene (PCR) Not Detected (NotDetected) blaVIM Car Res Gene PCR Not Detected (NotDetected) CTX-M Gene Resistance (PCR) Not Detected (NotDetected) Bld Cult ID Panel PCR See PCR Comment (NotDetected) Medications Administered Current Inpatient Medications Acetaminophen (Acetaminophen 325 Mg Tab) 650 mg PO QID PRN PRN Reason: pain/fever Stop: 09/20/23 00:12 Last Admin: 08/21/23 20:38 Dose: 650 mg Aspirin (Aspirin 81 Mg Ectab) 81 mg PO QAM [facility] Stop: 09/20/23 08:59 Last Admin: 08/22/23 08:51 Dose: 81 mg Atorvastatin Calcium (Atorvastatin 40 Mg Tab) 80 mg PO QAM [facility] Stop: 09/20/23 08:59 Last Admin: 08/22/23 08:51 Dose: 80 mg Dextrose (Dextrose 50% 50 Ml Syringe) 25 - 50 ml IV UD PRN; Protocol PRN Reason: Hypoglycemia Protocol Stop: 09/20/23 00:12 Enoxaparin Sodium (Enoxaparin Inj 30 Mg/0.3 Ml Syr) 30 mg SQ QAM [facility] Stop: 09/20/23 08:59 Last Admin: 08/22/23 08:51 Dose: 30 mg Finasteride (Finasteride 5 Mg Tab) 5 mg PO QAM [facility] Stop: 09/20/23 08:59 Last Admin: 08/22/23 08:51 Dose: 5 mg Glucagon (Glucagon For Inj 1 Mg Vial) 1 mg SQ UD PRN; Protocol PRN Reason: Hypoglycemia Protocol Stop: 09/20/23 00:12 Glucose (Glucose 40% Gel 15 Gm Tube) 15 - 30 gm PO UD PRN; Protocol PRN Reason: Hypoglycemia Protocol Stop: 09/20/23 00:12 Glucose (Glucose 10 Tab/Tube) 4 - 8 tab PO UD PRN; Protocol PRN Reason: Hypoglycemia Treatment Stop: 09/20/23 00:12 Promethazine HCl 6.25 mg/ (Sodium Chloride) 50.25 mls @ 201 mls/hr IV Q6H PRN PRN Reason: Nausea And Vomiting Stop: 09/20/23 00:12 Piperacillin Sod/Tazobactam (Sod 4.5 gm/ Dextrose) 100 mls @ 25 mls/hr IV Q8H [facility]; Protocol Stop: 08/28/23 20:59 Last Infusion: 08/22/23 09:10 Dose: Infused Vancomycin HCl 1,500 mg/ (Sodium Chloride) 530 mls @ 200 mls/hr IV Q24H [facility] Stop: 08/29/23 00:00 Last Infusion: 08/22/23 03:54 Dose: Infused Magnesium Sulfate/Dextrose (Magnesium Sulfate / D5w) 1 gm in 100 mls @ 50 mls/hr IV ONE ONE Stop: 08/22/23 14:55 Insulin Aspart (Insulin Aspart Per Unit Charge) 0 units SC ACHS [facility] Stop: 09/20/23 00:14 Last Admin: 08/22/23 09:32 Dose: 3 units Insulin Glargine (Lantus Per Unit Charge) 5 units SQ BID [facility] Stop: 09/20/23 08:59 Last Admin: 08/22/23 09:32 Dose: 5 units Menthol (Cough Drop (Sugar Free) Ge 24 Ge/1 Box) 1 ge BUCCAL Q8H PRN PRN Reason: Sore Throat Stop: 09/20/23 18:02 Miscellaneous (Carbohydrates For Hypoglycemia ) 15 - 30 gm PO UD PRN PRN Reason: Hypoglycemia Protocol Stop: 09/20/23 00:12 Miscellaneous Information (Vancomycin Consult Active) 1 each N/A UD PRN PRN Reason: Consult Stop: 09/20/23 15:32 Nystatin (Nystatin Susp 500,000 U/5 Ml Udc) 5 ml PO QID [facility] Stop: 08/31/23 12:59 Last Admin: 08/22/23 08:51 Dose: 5 ml Prednisone (Prednisone 5 Mg Tab) 5 mg PO QAM [facility] Stop: 09/21/23 08:59 Last Admin: 08/22/23 08:51 Dose: 5 mg Psyllium Hydrophilic Mucilloid (Psyllium Or Guar Gum Fiber 4gm Packet) 4 gm PO DAILY ANNALISA Stop: 09/20/23 08:59 Last Admin: 08/22/23 08:51 Dose: 4 gm Sotalol HCl (Sotalol Hcl 80 Mg Tab) 40 mg PO BID ANNALISA Stop: 09/20/23 08:59 Last Admin: 08/22/23 08:51 Dose: 40 mg
[2023-08-22] MEDS: guaiFENesin 600 MG TABCR PO SCH (13:50)
[2023-08-22] MEDS: MAGNESIUM SULFATE / D5W 1 GM/100 ML BAG IV ONE (13:50)
--- NOTE | 2023-08-22 13:51 | Gastrointestinal Consultation ---
Date of Consultation August 22, 2023 Assessment & Plan (1) Dysphagia: Patient is an 88 year old male who presented to the hospital with weakness and facial droop. MRI head unremarkable, admitted with TIA and bacteremia. GI consulted for dysphagia for 18 months. Speech recommended NPO due to aspiration. Patient feels he swallows better now than he had been in the past. He noticed benefit with starting diflucan for oral thrush. - I discussed further testing such as EGD with the patient and family. we also discussed things such as feeding tubes, though these do not decrease the risk of aspiration. Currently, patient and family tell me they do not want to have any invasive testing or feeding tubes. - the patient understands the risks of aspiration and he feels that swallowing has actually been better than previously. - okay to continue with diflucan. - will start protonix 40mg IV BID in case there is a component of reflux causing symptoms. Supervising Physician Co-Signing Physician Notes Agree with ALISSA Richardson as above Interviewed and examined patient and agree with above Abd: Soft, NT, ND Continue current therapy and supportive care He and his family do not want any invasive procedures. Also, a PEG tube would not decrease his risk of aspiration and I would recommend comfort feeding as he is currently aware of the risks. History of Present Illness Reason for Consultation: esophageal dysmotility Requesting Physician: Francois Santoyo MD Attending Physician: Francois Santoyo MD History of Present Illness 88 year old male who presented to the ED on 08/19 with complaints of weakness and left sided facial droop. He and his family were concerned for a stroke so he was brought in for evaluation. He had suspected TIA, brain MRI unremarkable. During his stay he was found to have bacteremia. He also reports an 18 month history of dysphagia. As such speech input with video fluoroscopy was done and speech who noted he does not have any issues with oral or pharyngeal phases of the swallow but he has absolutely no clearance of items from his esophagus and swallowed items were observed re-entering the pharyngeal cavity and being aspirated. they recommended NPO. Patient tells me he has had dysphagia for at least 18 months and tells me that recently he was evaluated for thrush and felt swallowing was improved with diflcuan. He tells me that lately he has been swallowing better than he had been previously. Patient and family are uncertain that they wish to have any invasive work up. Patient denies any current issues with nausea, vomiting, dysphagia, heartburn, abdominal pain, change in bowels, melena, or bright red blood per rectum. Allergies Allergy/AdvReac Type Severity Reaction Status Date / Time atenolol Allergy Unknown Patient Verified 08/20/23 22:28 told "never to take again" candesartan [From Atacand] AdvReac Intermediate Hyperkalemi Verified 08/20/23 22:28 a lisinopril AdvReac Intermediate Increased Verified 08/20/23 22:28 creatinine, hypotension Home Medications Medication Instructions Recorded Confirmed Type albuterol sulfate 90 mcg/actuation 2 inh inhalation UD PRN Shortness 06/04/18 08/20/23 History breath activated powder inhaler Of Breath Or Wheezing aspirin 81 mg tablet,delayed 81 mg PO QAM 06/04/18 08/20/23 History release atorvastatin 80 mg tablet 80 mg PO QAM 06/04/18 08/20/23 History multivitamin-ferrous 1 tab PO DAILY 09/03/18 08/20/23 History fumarate-folic acid 18 mg-400 mcg tablet (Centrum) carvedilol 12.5 mg tablet 12.5 mg PO BID 06/13/22 08/20/23 History linagliptin 5 mg tablet (Tradjenta) 5 mg PO QAM 06/13/22 08/20/23 History nitroglycerin 0.4 mg sublingual 0.4 mg sublingual DIRECTED PRN 06/13/22 08/20/23 History tablet Chest Pain prednisone 5 mg tablet 10 mg PO QAM 06/13/22 08/20/23 History sotalol 80 mg tablet 40 mg PO BID 06/13/22 08/20/23 History terazosin 2 mg capsule 2 mg PO HS 06/13/22 08/20/23 History coenzyme Q10 400 mg capsule 400 mg PO DAILY 02/26/23 08/20/23 History empagliflozin 10 mg tablet 10 mg PO QAM 02/26/23 08/20/23 History (Jardiance) acetaminophen 500 mg capsule 1,000 mg (2 x 500 mg) PO TID PRN 03/01/23 08/20/23 Rx pain #30 caps Metamucil 1 cap PO DAILY 05/28/23 08/20/23 History finasteride 5 mg tablet 5 mg PO QAM 05/28/23 08/20/23 History furosemide 40 mg tablet (Lasix) 40 mg PO Q OTHER DAY 05/28/23 08/20/23 History fluconazole 100 mg tablet 100 mg PO BID 08/20/23 08/20/23 History furosemide 40 mg tablet 60 mg PO Q OTHER DAY 08/20/23 08/20/23 History Patient History Medical History Atrial fibrillation Follows with [facility] cardiology BPH (benign prostatic hyperplasia) CAD (coronary artery disease) 2012- MARY to LAD Chronic back pain Chronic renal disease, stage III Follow[address] Dr[address] 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 heme/onc- last seen 05/28/23, recommendation to monitor/follow-up on annual basis Myocardial Infarction 2011 Osteoarthritis Scoliosis Seronegative arthritis Surgical History History of cardiac cath 2011 > stent x1 History of cataract surgery R/L History of heart artery stent 2012 > stent x1 History of tooth extraction Family History Mother Coronary heart disease, Onset Age: 63 of [place] CHF (congestive heart failure) Myocardial infarction Father CHF (congestive heart failure) Pneumonia Sister Coronary heart disease History of CABG Rheumatic heart disease Social History Smoking Status: Never smoker Second Hand Exposure: No; Do You Dip or Chew Tobacco: No; Hx Alcohol Use: No Hx Substance Use: No Preferred Language: Persian Communication Ability: Effective [place] Required: No Beliefs That Will Affect Care: None marital status: / Current Living Situation: Alone Feels Safe at Home: Yes Assistive Devices: Stair Lift and Walker Review of Systems Review of Systems: All systems reviewed & are unremarkable except as noted in HPI & below Physical Exam Constitutional: WD/WN, vitals as above Respiratory: normal respiratory effort, lungs clear to auscultation Cardiovascular: RRR, no murmur, no edema Gastrointestinal (Abdomen): normal bowel sounds, soft, nontender, no h epatosplenomegaly Psychiatric: Orientation: alert and oriented x 3 Affect: euthymic affect Results & Data Vital Signs (Past 12 Hours) Vital Signs Temp Pulse Pulse Resp BP Pulse Ox O2 Del Method 08/22/23 10:49 98.2 F 89 14 129/74 94 Room Air 08/22/23 09:30 Room Air 08/22/23 07:58 98.8 F 91 H 15 153/68 H 94 Room Air 08/22/23 07:17 83 08/22/23 04:03 97.7 F 70 20 145/73 H 96 Room Air Coding Level of Care Code 04134 INT INP/OBS CARE 2/55MIN Diagnoses Dysphagia R13.10
[2023-08-22] MEDS ORDERED: Nursing to Pharmacy Communication SCH ×2 (14:15→17:15)
--- NOTE | 2023-08-22 14:16 | Fluoroscopy Report ---
FL video swallow CLINICAL HISTORY: assess for aspiration TECHNIQUE: Video fluoroscopy of the pharyngeal region was performed as barium mixtures of varying con sistencies were administered to the patient by the speech pathologist. A formal esophagram was not pe rformed. Comparison: None available at the time of this dictation. FINDINGS: Total fluoroscopy time: 1.03 minutes. Radiation dose: 4.6 mGy. The patient swallowed the different barium consistencies without difficulty. Penetration was seen wit h pudding consistency barium due to esophageal material reentering the pharyngeal cavity. Retention o f ingested material in the esophagus is seen with no significant esophageal clearance during the cour se of this exam. IMPRESSION: 1. Prominent esophageal retention. 2. No evidence of aspiration. Please see the speech pathology report for further details. ACT 112: Negative or not required by law. Electronically signed by: Charlie Daniel M.D. 08/22/2023 2:14 PM
--- NOTE | 2023-08-22 14:26 | Pharmacy Report ---
Pharmacy PK ABX Note - Date of Service August 22, 2023 - Assessment and Plan Laboratory Tests 08/21/23 12:02 Enterobacterales (PCR) DETECTED A E. coli (PCR) DETECTED A K. pneumoniae group (PCR) DETECTED A Assessment 88 year old M receiving IV Vancomycin + Zosyn for treatment of e.coli + k.pneumo bacteremia and wound on buttocks area. ID consulted. Day # 2 of antimicrobial therapy. Plan Vancomycin * Loading dose: 1250 mg IV x 1 * Maintenance dose: 1500 mg IV every 24 hours * Regimen is predicted to achieve target AUC/BREE of 400-600 mg/L.hr * Random level ordered for: 08/23/23 Zosyn 4.5g IV Q8H Pharmacy will continue to follow and will adjust dose/frequency as necessary. Thank you. Pharmacy has transitioned to AUC monitoring for vancomycin. AUC/BREE is the preferred PK/PD target and is associated with decreased risk of nephrotoxicity compared to traditional trough targets.
[2023-08-22] MEDS ORDERED: INSULIN ASPART PER UNIT CHARGE SC SCH (18:00)
[2023-08-22] MEDS: INSULIN ASPART PER UNIT CHARGE SC SCH (18:38)
[2023-08-22] MEDS: PANTOprazole 40 MG in SYRINGE 0 ML IV SCH (21:01)
[2023-08-23 06:09] LABS: BUN Creatinine Ratio 35.6 (10-20); Basophils # (auto) 0.02 K/uL (0.00-0.20); Basophils % (auto) 0.2 %; Calcium 7.9 mg/dl (8.6-10.3); Creatinine Clr Calc Pharmacy 72.3 ml/min; Eosinophils # (auto) 0.04 K/uL (0.00-0.50); Eosinophils % (auto) 0.5 %; Est GFR (Non-African American) 89.8 ml/min; Hematocrit (blood only) 35.8 % (42.0-52.0); Hemoglobin 11.3 g/dl (14.0-18.0); Immature Granulocytes # (auto) 0.14 K/uL (0.01-0.20); Immature Granulocytes % (auto) 1.7 %; Lymphocytes # (auto) 0.83 K/uL (1.20-3.40); Lymphocytes % (auto) 10.2 %; Mean Corpuscular Hemoglobin 27.6 pg (25.0-34.0); Mean Corpuscular Hgb Conc 31.6 g/dL (32.0-36.0); Mean Corpuscular Volume 87.5 fL (80.0-100.0); Mean Platelet Volume 9.5 fL (9.4-12.4); Monocytes # (auto) 0.93 K/uL (0.11-0.59); Monocytes % (auto) 11.4 %; Phosphorus 2.4 mg/dl (2.5-4.9); Platelet Count 138 K/uL (130-400); Potassium 3.6 mmol/L (3.5-5.1); RDW Coefficient of Variation 17.8 % (11.5-14.5); RDW Standard Deviation 57.3 fL (36.4-46.3); Red Blood Count 4.09 M/uL (4.70-6.10); White Blood Count 8.16 K/ul (4.8-10.8)
--- NOTE | 2023-08-23 07:41 | Pharmacy Report ---
Pharmacy PK ABX Note - Date of Service August 23, 2023 - Assessment and Plan Laboratory Tests 08/21/23 12:02 Enterobacterales (PCR) DETECTED A E. coli (PCR) DETECTED A K. pneumoniae group (PCR) DETECTED A Assessment 88 year old M receiving IV Vancomycin + Zosyn for treatment of e.coli + k.pneumo bacteremia and wound on buttocks area. Awaiting ID consulted. Day # 3 of antimicrobial therapy. Plan Vancomycin * Current regimen: 1500 mg IV every 24 hours * Random level obtained 08/23/23 resulted as 20.7 mcg/mL. This is NOT predicted to achieve target AUC/BREE of 400-600 mg/L.hr * Change to 1000 mg IV every 12 hours * Repeat random level ordered for: 08/24/23 Zosyn 4.5g IV Q8H Pharmacy will continue to follow and will adjust dose/frequency as necessary. Thank you. Pharmacy has transitioned to AUC monitoring for vancomycin. AUC/BREE is the preferred PK/PD target and is associated with decreased risk of nephrotoxicity compared to traditional trough targets.
[2023-08-23] MEDS: VANCOMYCIN HCL 1,000 MG in SODIUM CHLORIDE 0.9% 250 ML IV SCH (09:18)
--- NOTE | 2023-08-23 17:06 | Hospitalist Progress Note ---
Date of Service August 23, 2023 Assessment & Plan (1) TIA (transient ischemic attack): Plan: Initially presented as poss. TIA w/ as transient left facial weakness witnessed by family ? Possible aspirin failure PAF, off anticoagulation secondary to risks, patient currently NSR Medical telemetry Neurochecks Plavix for possible aspirin failure initially MRI/MRA brain Re: TIA additional stroke workup contingent on MRI results , MRI brain negative Bacteremia pt febrile after admission - infectious work up obtained urine cloudy but w/o bacteria chest CT - 1. Subtle ground glass opacities within the right upper lobe suggestive of a mild infectious process. No consolidation. 2. Trace left pleural effusion. No pneumothorax. 3. No thoracic lymphadenopathy. Poss. RUL pna - pt started on iv zosyn + vanco wound on buttock area - wound care consulted Blood cultx - positive for GNB Cont. broad spectrum abx ID consulted Pt has a visible "lump" on his L shoulder - per family it's being drained q3 weeks by [facility] orthopedics, last time about a week ago, however no tenderness and no redness noted on exam Topical nystatin in place of oral fluconazole started by PCP for oral thrush (Concern for QTc prolongation with concomitant administration of fluconazole with patient's sotalol) Decrease maintenance prednisone dose from 10 mg to 5 mg daily for inflammatory arthritis given concern for long-term adverse effects (fungal infection, poorly controlled DM, possible myopathy in patient) Difficulty swallowing - pt noted to have difficulty swallowing and speech eval was ordered - per speech - pt does not have issues with oral or pharyngeal phases of the swallow but he has no clearance of items from his esophagus and swallowed items were observed re-entering the pharyngeal cavity and being aspirated. NPO with GI to address his esophageal functioning. GI consulted - He and his family do not want any invasive procedures. Also, a PEG tube would not decrease his risk of aspiration and I would recommend comfort feeding as he is currently aware of the risks. 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 Vinod Arceo, contact #[phone]. Mr. Salvatore Arceo, contact #[phone]. Admission and Anticipated Discharge Date Admission Date: August 22, 2023 Subjective Pt seen in follow up of bacteremia, initially presented as poss. TIA Then had fever after admission - infectious work-up obtained and blood cultx posit. Currently sitting up in bed in [facility], son at the bedside denies any chest pain, shortness of breath, abd. pain, n/v Family present yesterday reported weight loss 16 lbs since last year, also report that pt gets his L shoulder "lump" drained - last time about a week ago Pt states overall he feels better Contacted from speech about his video swallow yesterday and GI was consulted Review of Systems Review of Systems: All systems reviewed & are unremarkable except as noted in Subjective Physical Exam Physical Exam: GENERAL: WD/WN elderly M in NAD, + chronically ill appearing HEENT: NC/AT, EOMI NECK : Supple CHEST : Decreased breath sounds, no wheezing HEART : RRR, no obvious murmurs ABDOMEN: soft, no distention, nontender, + bowel sounds EXTREMITIES : No LE swelling/tenderness, chronic left shoulder tenderness w/ chronic "lump" (lump is nontender) NEUROLOGIC : awake and alert, able to answer simple questions appropriately, no facial asymmetry, slightly hard of hearing,moves extremities SKIN: warm, dry Results & Data Results & Data Vital Signs (Past 12 Hours) Vital Signs Temp Pulse Pulse Resp BP Pulse Ox O2 Del Method 08/23/23 15:40 36.5 C 77 20 139/78 99 Room Air 08/23/23 15:22 69 08/23/23 11:17 36.5 C 72 20 113/65 97 Room Air 08/23/23 09:20 Room Air 08/23/23 09:15 68 08/23/23 08:00 36.4 C L 59 L 20 145/82 H 97 Room Air 08/23/23 07:03 48 L Laboratory Results 08/23/23 08/23/23 08/23/23 Range/Units 12:10 08:15 05:29 WBC 8.16 (4.8-10.8) K/ul RBC 4.09 L (4.70-6.10) M/uL Hgb 11.3 L (14.0-18.0) g/dl Hct 35.8 L (42.0-52.0) % MCV 87.5 (80.0-100.0) fL MCH 27.6 (25.0-34.0) pg MCHC 31.6 L (32.0-36.0) g/dL RDW Std Deviation 57.3 H (36.4-46.3) fL RDW Coeff of Coty 17.8 H (11.5-14.5) % Plt Count 138 (130-400) K/uL MPV 9.5 (9.4-12.4) fL Immature Gran % (Auto) 1.7 % Neut % (Auto) 76.0 % Lymph % (Auto) 10.2 % Campbell % (Auto) 11.4 % Eos % (Auto) 0.5 % Baso % (Auto) 0.2 % Neut # (Auto) 6.20 (1.40-6.50) K/uL Lymph # (Auto) 0.83 L (1.20-3.40) K/uL Campbell # (Auto) 0.93 H (0.11-0.59) K/uL Eos # (Auto) 0.04 (0.00-0.50) K/uL Baso # (Auto) 0.02 (0.00-0.20) K/uL Immature Gran # (Auto) 0.14 (0.01-0.20) K/uL Sodium 138 (136-145) mmol/L Potassium 3.6 (3.5-5.1) mmol/L Chloride 108 H (98-107) mmol/L Carbon Dioxide 25 (21-32) mmol/L Anion Gap 5 (3-11) BUN 21 (6-23) mg/dl Creatinine 0.59 L (0.6-1.4) mg/dl Est Cr Clr Drug Dosing 72.3 ml/min Est GFR ( Amer) 104.0 ml/min Est GFR (Non-Af Amer) 89.8 ml/min BUN/Creatinine Ratio 35.6 H (10-20) Glucose 129 H (70-99(Fasting)) mg/dl POC Glucose 158 H 151 H (70-99) mg/dl Calcium 7.9 L (8.6-10.3) mg/dl Phosphorus 2.4 L (2.5-4.9) mg/dl Magnesium 2.0 (1.7-2.4) mg/dl Random Vancomycin 20.7 H (10-20) mcg/ml 08/22/23 08/22/23 Range/Units 20:26 17:15 WBC (4.8-10.8) K/ul RBC (4.70-6.10) M/uL Hgb (14.0-18.0) g/dl Hct (42.0-52.0) % MCV (80.0-100.0) fL MCH (25.0-34.0) pg MCHC (32.0-36.0) g/dL RDW Std Deviation (36.4-46.3) fL RDW Coeff of Coty (11.5-14.5) % Plt Count (130-400) K/uL MPV (9.4-12.4) fL Immature Gran % (Auto) % Neut % (Auto) % Lymph % (Auto) % Campbell % (Auto) % Eos % (Auto) % Baso % (Auto) % Neut # (Auto) (1.40-6.50) K/uL Lymph # (Auto) (1.20-3.40) K/uL Campbell # (Auto) (0.11-0.59) K/uL Eos # (Auto) (0.00-0.50) K/uL Baso # (Auto) (0.00-0.20) K/uL Immature Gran # (Auto) (0.01-0.20) K/uL Sodium (136-145) mmol/L Potassium (3.5-5.1) mmol/L Chloride (98-107) mmol/L Carbon Dioxide (21-32) mmol/L Anion Gap (3-11) BUN (6-23) mg/dl Creatinine (0.6-1.4) mg/dl Est Cr Clr Drug Dosing ml/min Est GFR ( Amer) ml/min Est GFR (Non-Af Amer) ml/min BUN/Creatinine Ratio (10-20) Glucose (70-99(Fasting)) mg/dl POC Glucose 210 H 289 H (70-99) mg/dl Calcium (8.6-10.3) mg/dl Phosphorus (2.5-4.9) mg/dl Magnesium (1.7-2.4) mg/dl Random Vancomycin (10-20) mcg/ml Medications Administered Current Inpatient Medications Acetaminophen (Acetaminophen 325 Mg Tab) 650 mg PO QID PRN PRN Reason: pain/fever Stop: 09/20/23 00:12 Last Admin: 08/21/23 20:38 Dose: 650 mg Aspirin (Aspirin 81 Mg Ectab) 81 mg PO [facility] Stop: 09/20/23 08:59 Last Admin: 08/23/23 09:19 Dose: 81 mg Atorvastatin Calcium (Atorvastatin 40 Mg Tab) [facility] Stop: 09/20/23 08:59 Last Admin: 08/23/23 09:19 Dose: 80 mg Dextrose (Dextrose 50% 50 Ml Syringe) 25 - 50 ml IV UD PRN; Protocol PRN Reason: Hypoglycemia Protocol Stop: 09/20/23 00:12 Enoxaparin Sodium (Enoxaparin Inj 30 Mg/0.3 Ml Syr) 30 mg SQ [facility] Stop: 09/20/23 08:59 Last Admin: 08/23/23 09:18 Dose: 30 mg Finasteride (Finasteride 5 Mg Tab) 5 mg PO [facility] Stop: 09/20/23 08:59 Last Admin: 08/23/23 09:19 Dose: 5 mg Glucagon (Glucagon For Inj 1 Mg Vial) 1 mg SQ UD PRN; Protocol PRN Reason: Hypoglycemia Protocol Stop: 09/20/23 00:12 Glucose (Glucose 40% Gel 15 Gm Tube) 15 - 30 gm PO UD PRN; Protocol PRN Reason: Hypoglycemia Protocol Stop: 09/20/23 00:12 Glucose (Glucose 10 Tab/Tube) 4 - 8 tab PO UD PRN; Protocol PRN Reason: Hypoglycemia Treatment Stop: 09/20/23 00:12 Guaifenesin (Guaifenesin 600 Mg Tabcr) 600 mg PO Q12 [facility] Stop: 09/21/23 13:04 Last Admin: 08/23/23 09:26 Dose: 600 mg Promethazine HCl 6.25 mg/ (Sodium Chloride) 50.25 mls @ 201 mls/hr IV Q6H PRN PRN Reason: Nausea And Vomiting Stop: 09/20/23 00:12 Piperacillin Sod/Tazobactam (Sod 4.5 gm/ Dextrose) 100 mls @ 25 mls/hr IV Q8H [facility]; Protocol Stop: 08/28/23 20:59 Last Admin: 08/23/23 13:13 Dose: 25 mls/hr Pantoprazole Sodium 40 mg/ (Syringe) 10 mls @ 5 mls/min IV BID [facility] Stop: 09/21/23 20:59 Last Admin: 08/23/23 09:18 Dose: 5 mls/min Vancomycin HCl 1,000 mg/ (Sodium Chloride) 270 mls @ 200 mls/hr IV Q12H [facility] Stop: 08/30/23 07:59 Last Infusion: 08/23/23 10:42 Dose: Infused Insulin Aspart (Insulin Aspart Per Unit Charge) 0 units SC ACHS [facility] Stop: 09/21/23 17:29 Last Admin: 08/23/23 13:12 Dose: 5 units Insulin Glargine (Lantus Per Unit Charge) 5 units SQ BID [facility] Stop: 09/20/23 08:59 Last Admin: 08/23/23 09:26 Dose: 5 units Menthol (Cough Drop (Sugar Free) Ge 24 Ge/1 Box) 1 ge BUCCAL Q8H PRN PRN Reason: Sore Throat Stop: 09/20/23 18:02 Miscellaneous (Carbohydrates For Hypoglycemia ) 15 - 30 gm PO UD PRN PRN Reason: Hypoglycemia Protocol Stop: 09/20/23 00:12 Miscellaneous Information (Vancomycin Consult Active) 1 each N/A UD PRN PRN Reason: Consult Stop: 09/20/23 15:32 Nystatin (Nystatin Susp 500,000 U/5 Ml Udc) 5 ml PO QID [facility] Stop: 08/31/23 12:59 Last Admin: 08/23/23 13:10 Dose: 5 ml Prednisone (Prednisone 5 Mg Tab) 5 mg PO QAM [facility] Stop: 09/21/23 08:59 Last Admin: 08/23/23 09:27 Dose: 5 mg Psyllium Hydrophilic Mucilloid (Psyllium Or Guar Gum Fiber 4gm Packet) 4 gm PO DAILY [facility] Stop: 09/20/23 08:59 Last Admin: 08/23/23 09:19 Dose: 4 gm Sotalol HCl (Sotalol Hcl 80 Mg Tab) 40 mg PO BID [facility] Stop: 09/20/23 08:59 Last Admin: 08/23/23 09:18 Dose: 40 mg
[2023-08-24 06:53] LABS: Magnesium 1.9 mg/dl (1.7-2.4); Phosphorus 2.1 mg/dl (2.5-4.9)
[2023-08-24 07:55] LABS: Creatinine Clr Calc Pharmacy 80.9 ml/min; Est GFR (African American) 108.7 ml/min; Est GFR (Non-African American) 93.8 ml/min
[2023-08-24 08:43] LABS: Hematocrit (blood only) 33.7 % (42.0-52.0); Hemoglobin 10.8 g/dl (14.0-18.0); Mean Corpuscular Hemoglobin 28.1 pg (25.0-34.0); Mean Corpuscular Volume 87.8 fL (80.0-100.0); Mean Platelet Volume 10.5 fL (9.4-12.4); Platelet Count 155 K/uL (130-400); RDW Coefficient of Variation 17.8 % (11.5-14.5); RDW Standard Deviation 57.2 fL (36.4-46.3); Red Blood Count 3.84 M/uL (4.70-6.10); White Blood Count 7.94 K/ul (4.8-10.8)
[2023-08-24 08:49] LABS: BUN Creatinine Ratio 35.8 (10-20); Calcium 7.6 mg/dl (8.6-10.3); Potassium 4.5 mmol/L (3.5-5.1)
--- NOTE | 2023-08-24 09:42 | Hospitalist Progress Note ---
Date of Service August 24, 2023 Assessment & Plan (1) TIA (transient ischemic attack): Plan: Initially presented as poss. TIA w/ as transient left facial weakness witnessed by family ? Possible aspirin failure PAF, off anticoagulation secondary to risks, patient currently NSR Medical telemetry Neurochecks Plavix for possible aspirin failure initially MRI/MRA brain Re: TIA additional stroke workup contingent on MRI results , MRI brain negative. Symptoms likely secondary to infection / bacteremia Bacteremia pt febrile after admission - infectious work up obtained urine cloudy but w/o bacteria Chest CT - 1. Subtle ground glass opacities within the right upper lobe suggestive of a mild infectious process. No consolidation. 2. Trace left pleural effusion. No pneumothorax. 3. No thoracic lymphadenopathy. Poss. RUL pna - pt started on iv zosyn + vanco wound on buttock area - wound care consulted Pt has a visible "lump" on his L shoulder - per family it's being drained q3 weeks by [facility] orthopedics, last time about a week ago, however no tenderness and no redness noted on exam Blood cultx (08/21/2023) - positive for Klebsiella pneumonia and E.coli Repeat blood cultx (08/21) - also positive growth Cont. broad spectrum abx ID consulted and Echo obtained Echo The study technically difficult due to poor acoustic windows. There is moderate concentric LVH. LVEF 65 to 70%. Aortic valve is mildly calcified. Borderline to mild aortic stenosis is present. If the clinical suspicion for endocarditis remains high, consider ROSALVA. ID consult - (1) Bacteremia: Plan: 88-year-old gentleman with E coli, Klebsiella bacteremia from a unclear so urce, patient does have a sacral wound however per picture does not look overtly infected, he did not have any indwelling venous access, has largely no symptoms. Gram-negative bacteremia, especially multiple species raises concern for intra- abdominal source. Even though there was no symptoms would recommend evaluation with CT scan of abdomen and pelvis with contrast to evaluate, this will also i mage his sacrum for any deep-seated infection that may not be overtly obvious on physical exam. Would also recommend echocardiogram, Gram-negative bacteremia can rarely cause endocarditis however given the lack of source would recommend ruling out endocarditis. Patient's bacteremia are pansensitive, given this would deescalate to cefazolin for the time being with discontinuation of his current broad-spectrum antibiotics. We will continue on IV for now with workup as above, final recommendation pending further diagnostics. - Discontinue vancomycin/ Zosyn - Cefazolin 2 g IV q.8 hours based on current renal clearance - CT abdomen and pelvis with contrast - Trans thoracic echocardiogram Difficulty swallowing - pt noted to have difficulty swallowing and speech eval was ordered - per speech - pt does not have issues with oral or pharyngeal phases of the swallow but he has no clearance of items from his esophagus and swallowed items were observed re-entering the pharyngeal cavity and being aspirated. NPO with GI to address his esophageal functioning. Topical nystatin in place of oral fluconazole started by PCP for oral thrush (Concern for QTc prolongation with concomitant administration of fluconazole with patient's sotalol) Decrease maintenance prednisone dose from 10 mg to 5 mg daily for inflammatory arthritis given concern for long-term adverse effects (fungal infection, poorly controlled DM, possible myopathy in patient) GI consulted - He and his family do not want any invasive procedures. Also, a PEG tube would not decrease his risk of aspiration and I would recommend comfort feeding as he is currently aware of the risks. 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 Vinod Arceo, contact #[phone]. Mr. Salvatore Arceo, contact #[phone]. Admission and Anticipated Discharge Date Admission Date: August 22, 2023 Subjective Pt seen in follow up of bacteremia, initially presented as poss. TIA Then had fever after admission - infectious work-up obtained and blood cultx posit. Currently sitting up in bed in NAD, denies any chest pain, shortness of breath, abd. pain, n/v Repeat blood cultx again positive Pt states overall he feels better Previously seen by GI - pt and family not interested in any procedures Review of Systems Review of Systems: All systems reviewed & are unremarkable except as noted in Subjective Physical Exam Physical Exam: GENERAL: WD/WN elderly M in NAD, + chronically ill appearing HEENT: NC/AT, EOMI NECK : Supple CHEST : Decreased breath sounds, no wheezing HEART : RRR, no obvious murmurs ABDOMEN: soft, no distention, nontender, + bowel sounds EXTREMITIES : No LE swelling/tenderness, chronic left shoulder tenderness w/ chronic "lump" (lump is nontender) NEUROLOGIC : awake and alert, able to answer simple questions appropriately, no facial asymmetry, slightly hard of hearing,moves extremities SKIN: warm, dry Results & Data Results & Data Vital Signs (Past 12 Hours) Vital Signs Temp Pulse Pulse Resp BP BP Pulse Ox 08/24/23 08:41 36.6 C 49 L 16 134/72 98 08/24/23 07:00 53 L 08/24/23 03:03 36.4 C L 62 16 149/74 H 98 08/23/23 22:51 08/23/23 22:16 36.7 C 78 16 140/77 98 08/23/23 22:00 78 O2 Del Method 08/24/23 08:41 Room Air 08/24/23 07:00 08/24/23 03:03 Room Air 08/23/23 22:51 Room Air 08/23/23 22:16 Room Air 08/23/23 22:00 Laboratory Results 08/24/23 08/24/23 08/24/23 Range/Units 08:13 05:55 05:54 WBC 7.94 (4.8-10.8) K/ul RBC 3.84 L (4.70-6.10) M/uL Hgb 10.8 L (14.0-18.0) g/dl Hct 33.7 L (42.0-52.0) % MCV 87.8 (80.0-100.0) fL MCH 28.1 (25.0-34.0) pg MCHC 32.0 (32.0-36.0) g/dL RDW Std Deviation 57.2 H (36.4-46.3) fL RDW Coeff of Coty 17.8 H (11.5-14.5) % Plt Count 155 (130-400) K/uL MPV 10.5 (9.4-12.4) fL Sodium 139 (136-145) mmol/L Potassium 4.5 D (3.5-5.1) mmol/L Chloride 110 H (98-107) mmol/L Carbon Dioxide 24 (21-32) mmol/L Anion Gap 5 (3-11) BUN 19 (6-23) mg/dl Creatinine 0.53 L (0.6-1.4) mg/dl Est Cr Clr Drug Dosing 80.9 ml/min Est GFR ( Amer) 108.7 ml/min Est GFR (Non-Af Amer) 93.8 ml/min BUN/Creatinine Ratio 35.8 H (10-20) Glucose 189 H (70-99(Fasting)) mg/dl POC Glucose 188 H (70-99) mg/dl Calcium 7.6 L (8.6-10.3) mg/dl Phosphorus 2.1 L (2.5-4.9) mg/dl Magnesium 1.9 (1.7-2.4) mg/dl 08/23/23 08/23/23 08/23/23 Range/Units 20:14 17:11 12:10 WBC (4.8-10.8) K/ul RBC (4.70-6.10) M/uL Hgb (14.0-18.0) g/dl Hct (42.0-52.0) % MCV (80.0-100.0) fL MCH (25.0-34.0) pg MCHC (32.0-36.0) g/dL RDW Std Deviation (36.4-46.3) fL RDW Coeff of Coty (11.5-14.5) % Plt Count (130-400) K/uL MPV (9.4-12.4) fL Sodium (136-145) mmol/L Potassium (3.5-5.1) mmol/L Chloride (98-107) mmol/L Carbon Dioxide (21-32) mmol/L Anion Gap (3-11) BUN (6-23) mg/dl Creatinine (0.6-1.4) mg/dl Est Cr Clr Drug Dosing ml/min Est GFR ( Amer) ml/min Est GFR (Non-Af Amer) ml/min BUN/Creatinine Ratio (10-20) Glucose (70-99(Fasting)) mg/dl POC Glucose 268 H 251 H 158 H (70-99) mg/dl Calcium (8.6-10.3) mg/dl Phosphorus (2.5-4.9) mg/dl Magnesium (1.7-2.4) mg/dl Medications Administered Current Inpatient Medications Acetaminophen (Acetaminophen 325 Mg Tab) 650 mg PO QID PRN PRN Reason: pain/fever Stop: 09/20/23 00:12 Last Admin: 08/21/23 20:38 Dose: 650 mg Aspirin (Aspirin 81 Mg Ectab) [facility] Stop: 09/20/23 08:59 Last Admin: 08/24/23 08:59 Dose: 81 mg Atorvastatin Calcium (Atorvastatin 40 Mg Tab) 80 mg PO [facility] Stop: 09/20/23 08:59 Last Admin: 08/24/23 08:59 Dose: 80 mg Dextrose (Dextrose 50% 50 Ml Syringe) 25 - 50 ml IV UD PRN; Protocol PRN Reason: Hypoglycemia Protocol Stop: 09/20/23 00:12 Enoxaparin Sodium (Enoxaparin Inj 30 Mg/0.3 Ml Syr) 30 mg SQ [facility] Stop: 09/20/23 08:59 Last Admin: 08/24/23 08:58 Dose: 30 mg Finasteride (Finasteride 5 Mg Tab) 5 mg PO [facility] Stop: 09/20/23 08:59 Last Admin: 08/24/23 09:00 Dose: 5 mg Glucagon (Glucagon For Inj 1 Mg Vial) 1 mg SQ UD PRN; Protocol PRN Reason: Hypoglycemia Protocol Stop: 09/20/23 00:12 Glucose (Glucose 40% Gel 15 Gm Tube) 15 - 30 gm PO UD PRN; Protocol PRN Reason: Hypoglycemia Protocol Stop: 09/20/23 00:12 Glucose (Glucose 10 Tab/Tube) 4 - 8 tab PO UD PRN; Protocol PRN Reason: Hypoglycemia Treatment Stop: 09/20/23 00:12 Guaifenesin (Guaifenesin 600 Mg Tabcr) 600 mg PO Q12 [facility] Stop: 09/21/23 13:04 Last Admin: 08/24/23 08:59 Dose: 600 mg Promethazine HCl 6.25 mg/ (Sodium Chloride) 50.25 mls @ 201 mls/hr IV Q6H PRN PRN Reason: Nausea And Vomiting Stop: 09/20/23 00:12 Piperacillin Sod/Tazobactam (Sod 4.5 gm/ Dextrose) 100 mls @ 25 mls/hr IV Q8H [facility]; Protocol Stop: 08/28/23 20:59 Last Infusion: 05/24/24 08:51 Dose: Infused Pantoprazole Sodium 40 mg/ (Syringe) 10 mls @ 5 mls/min IV BID [facility] Stop: 09/21/23 20:59 Last Admin: 08/24/23 09:00 Dose: 5 mls/min Vancomycin HCl 1,000 mg/ (Sodium Chloride) 270 mls @ 200 mls/hr IV Q12H [facility] Stop: 08/30/23 07:59 Last Admin: 08/24/23 08:54 Dose: 200 mls/hr Insulin Aspart (Insulin Aspart Per Unit Charge) 0 units SC ACHS [facility] Stop: 09/21/23 17:29 Last Admin: 08/24/23 09:09 Dose: 6 units Insulin Glargine (Lantus Per Unit Charge) 5 units SQ BID [facility] Stop: 09/20/23 08:59 Last Admin: 08/24/23 09:09 Dose: 5 units Menthol (Cough Drop (Sugar Free) Ge 24 Ge/1 Box) 1 ge BUCCAL Q8H PRN PRN Reason: Sore Throat Stop: 09/20/23 18:02 Miscellaneous (Carbohydrates For Hypoglycemia ) 15 - 30 gm PO UD PRN PRN Reason: Hypoglycemia Protocol Stop: 09/20/23 00:12 Miscellaneous Information (Vancomycin Consult Active) 1 each N/A UD PRN PRN Reason: Consult Stop: 09/20/23 15:32 Nystatin (Nystatin Susp 500,000 U/5 Ml Udc) 5 ml PO QID [facility] Stop: 08/31/23 12:59 Last Admin: 08/24/23 08:59 Dose: 5 ml Prednisone (Prednisone 5 Mg Tab) 5 mg PO QAM [facility] Stop: 09/21/23 08:59 Last Admin: 08/24/23 09:00 Dose: 5 mg Psyllium Hydrophilic Mucilloid (Psyllium Or Guar Gum Fiber 4gm Packet) 4 gm PO DAILY [facility] Stop: 09/20/23 08:59 Last Admin: 08/24/23 08:58 Dose: 4 gm Sotalol HCl (Sotalol Hcl 80 Mg Tab) 40 mg PO BID [facility] Stop: 09/20/23 08:59 Last Admin: 08/24/23 08:59 Dose: 40 mg
--- NOTE | 2023-08-24 14:48 | Pharmacy Report ---
Pharmacy PK ABX Note - Date of Service August 24, 2023 - Assessment and Plan Laboratory Tests 08/21/23 12:02 Enterobacterales (PCR) DETECTED A E. coli (PCR) DETECTED A K. pneumoniae group (PCR) DETECTED A Assessment 08/23: Continues on vancomycin + zosyn (day #4) for bacteremia, ? wound, pneumonia. 08/20 blood cultures (+) stratton-sensitive Kleb pneumo in 4/4, stratton- sensitive E.coli in 2/4. Repeat blood cultures 08/21 (+) Kleb pneumoniae in 1/. MRSA nasal ordered today and is (-). Renal function stable. Awaiting ID consult. 88 year old M receiving IV Vancomycin + Zosyn for treatment of e.coli + k.pneumo bacteremia and wound on buttocks area. Awaiting ID consulted. Plan Vancomycin * Current regimen: 1000 mg IV every 12 hours * Random level this afternoon (~5hr level), 20.9mcg/mL, predicted to achieve ssAUC 474mg/L.hr - therapeutic. * Continue 1000 mg IV every 12 hours * Repeat level in ~ 48h if therapy continued Pharmacy will continue to follow and will adjust dose/frequency as necessary. Thank you. Pharmacy has transitioned to AUC monitoring for vancomycin. AUC/BREE is the preferred PK/PD target and is associated with decreased risk of nephrotoxicity compared to traditional trough targets.
--- NOTE | 2023-08-24 15:04 | Infectious Disease Consult ---
<Statement entered by Luis Alfredo Dubois II, DO - 08/28/23 15:37> I saw and evaluated the patient on 08/24/2023. I have reviewed the trainee note and agree. Date of Service August 24, 2023 Telehealth Information I performed this visit using a real-time telehealth connection between my loca tion and the patients location ([facility]). After connecting through interactive tele-video, patient was identified by name and date of and/or wristband check.Patient (or authorized healthcare representative phlebotomy services) was informed that this was a telemedicine visit and it was being conducted confidentially over secure lines. My office door was closed and no one else was present in the room with me.Patient (or authorized healthcare representative phlebotomy services) provided consent to proceed with the visit, expressed an understanding of privacy and security of the telemedicine visit, and gave permission to have a hospital representative phlebotomy services in the room in order to assist with the visit and to conduct portions of the visit, as needed. I informed the patient (or authorized healthcare representative phlebotomy services) that I reviewed their record and presented the opportunity for them to ask any questions regarding the visit today. The patient agreed to participate. Assessment & Plan (1) Bacteremia: Plan: 88-year-old gentleman with E coli, Klebsiella bacteremia from a unclear source, patient does have a sacral wound however per picture does not look overtly infected, he did not have any indwelling venous access, has largely no symptoms. Gram-negative bacteremia, especially multiple species raises concern for intra-abdominal source. Even though there was no symptoms would recommend evaluation with CT scan of abdomen and pelvis with contrast to evaluate, this will also image his sacrum for any deep-seated infection that may not be overtly obvious on physical exam. Would also recommend echocardiogram, Gram-negative bacteremia can rarely cause endocarditis however given the lack of source would recommend ruling out endocarditis. Patient's bacteremia are pansensitive, given this would deescalate to cefazolin for the time being with discontinuation of his current broad-spectrum antibiotics. We will continue on IV for now with workup as above, final recommendation pending further diagnostics. - Discontinue vancomycin/ Zosyn - Cefazolin 2 g IV q.8 hours based on current renal clearance - CT abdomen and pelvis with contrast - Trans thoracic echocardiogram Appreciate consultation, please do not hesitate to reach out for any further questions or concerns. Bill Preciado MD PGY4 Infectious Disease History of Present Illness History of Present Illness 88-year-old male with stroke-like symptoms with a past medical history diastolic heart failure, CAD status post stents, atrial fibrillation not on anticoagulation due to risk of bleeding, diabetes type 2, arthritis on chronic steroids, sacral wound, monoclonal gammopathy. Patient has had increasing weakness for the past week, sore throat, rapid strep-08/14, recently treated with oral thrush with fluconazole. Initial admission for potential stroke. Patient began to spike fevers 08/20 T-max 38.1, currently afebrile. No elevation in WBC. Blood cultures 4/4 positive for Klebsiella pneumoniae, 2/4 positive for E coli, repeat blood culture with persistent Klebsiella pneumoniae / otherwise negative. MRI of the head was negative for acute findings, CT of thorax with ground-glass opacities right upper lobe. Urinalysis inconsistent with infection. Patient reported dysphagia for the past 18 months, and GI has been consulted who recommended speech evaluation and NPO status however patient elected for comfort feeding and is aware of current aspiration risks. Family does not want invasive procedures. Patient was initiated on Zosyn starting 08/20 in his currently day 3 of therapy. Allergies Allergy/AdvReac Type Severity Reaction Status Date / Time atenolol Allergy Unknown Patient Verified 08/20/23 22:28 told "never to take again" candesartan [From Atacand] AdvReac Intermediate Hyperkalemi Verified 08/20/23 22:28 a lisinopril AdvReac Intermediate Increased Verified 08/20/23 22:28 creatinine, hypotension Home Medications Medication Instructions Recorded Confirmed Type albuterol sulfate 90 mcg/actuation 2 inh inhalation UD PRN Shortness 06/04/18 08/20/23 History breath activated powder inhaler Of Breath Or Wheezing aspirin 81 mg tablet,delayed 81 mg PO QAM 06/04/18 08/20/23 History release atorvastatin 80 mg tablet 80 mg PO QAM 06/04/18 08/20/23 History multivitamin-ferrous 1 tab PO DAILY 09/03/18 08/20/23 History fumarate-folic acid 18 mg-400 mcg tablet (Centrum) carvedilol 12.5 mg tablet 12.5 mg PO BID 06/13/22 08/20/23 History linagliptin 5 mg tablet (Tradjenta) 5 mg PO QAM 06/13/22 08/20/23 History nitroglycerin 0.4 mg sublingual 0.4 mg sublingual DIRECTED PRN 06/13/22 08/20/23 History tablet Chest Pain prednisone 5 mg tablet 10 mg PO QAM 06/13/22 08/20/23 History sotalol 80 mg tablet 40 mg PO BID 06/13/22 08/20/23 History terazosin 2 mg capsule 2 mg PO HS 06/13/22 08/20/23 History coenzyme Q10 400 mg capsule 400 mg PO DAILY 02/26/23 08/20/23 History empagliflozin 10 mg tablet 10 mg PO QAM 02/26/23 08/20/23 History (Jardiance) acetaminophen 500 mg capsule 1,000 mg (2 x 500 mg) PO TID PRN 03/01/23 08/20/23 Rx pain #30 caps Metamucil 1 cap PO DAILY 05/28/23 08/20/23 History finasteride 5 mg tablet 5 mg PO QAM 05/28/23 08/20/23 History furosemide 40 mg tablet (Lasix) 40 mg PO Q OTHER DAY 05/28/23 08/20/23 History fluconazole 100 mg tablet 100 mg PO BID 08/20/23 08/20/23 History furosemide 40 mg tablet 60 mg PO Q OTHER DAY 08/20/23 08/20/23 History Patient History Medical History Atrial fibrillation Follows with [facility] cardiology BPH (benign prostatic hyperplasia) CAD (coronary artery disease) 2011- MARY to LAD Chronic back pain Chronic renal disease, stage III [address] 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 heme/onc- last seen 05/28/23, recommendation to monitor/follow-up on annual basis Myocardial Infarction 2011 Osteoarthritis Scoliosis Seronegative arthritis Surgical History History of cardiac cath 2011 > stent x1 History of cataract surgery R/L History of heart artery stent 2011 > stent x1 History of tooth extraction Family History Mother Coronary heart disease, Onset Age: 63 of [place] CHF (congestive heart failure) Myocardial infarction Father CHF (congestive heart failure) Pneumonia Sister Coronary heart disease History of CABG Rheumatic heart disease Social History Smoking Status: Never smoker Second Hand Exposure: No; Do You Dip or Chew Tobacco: No; Hx Alcohol Use: No Hx Substance Use: No Preferred Language: Telugu Communication Ability: Effective Structural Biologist Required: No Beliefs That Will Affect Care: None marital status: / Current Living Situation: Alone Feels Safe at Home: Yes Assistive Devices: Stair Lift and Walker Review of Systems CONSTITUTIONAL: Denies weight loss, fever and chills. HEENT: Denies changes in vision and hearing. RESPIRATORY: Denies SOB and cough. CV: Denies palpitations and CP. GI: Denies abdominal pain, nausea, vomiting and diarrhea. : Denies dysuria and urinary frequency. MSK: Denies myalgia and joint pain. SKIN: Denies rash and pruritus. NEUROLOGICAL: Denies headache and syncope PSYCHIATRIC: Denies recent changes in mood. Denies anxiety and depression. Physical Exam PICC site examined, small halo of erythema surrounding PICC insertion site. No obvious drainage. Results & Data Vital Signs (Past 12 Hours) Vital Signs Temp Pulse Pulse Resp BP Pulse Ox O2 Del Method 08/24/23 13:31 36.4 C L 73 18 122/70 96 Room Air 08/24/23 09:00 Room Air 08/24/23 08:41 36.6 C 49 L 16 134/72 98 Room Air 08/24/23 07:00 53 L 08/24/23 03:03 36.4 C L 62 16 149/74 H 98 Room Air Diagnostic Findings 08/22/23 10:21 Aerobic Blood Culture - Preliminary Blood No growth in Aerobic bottle after 48 hours. Anaerobic Blood Culture - Preliminary No growth in Anaerobic bottle after 48 hours. 08/22/23 10:13 Aerobic Blood Culture - Preliminary Blood Klebsiella pneumoniae Anaerobic Blood Culture - Preliminary No growth in Anaerobic bottle after 48 hours. 08/21/23 12:02 Aerobic Blood Culture - Preliminary Blood Klebsiella pneumoniae Escherichia coli Anaerobic Blood Culture - Preliminary Klebsiella pneumoniae Escherichia coli 08/23/23 18:14 Aerobic Blood Culture - Pending Blood Anaerobic Blood Culture - Pending 08/23/23 18:02 Aerobic Blood Culture - Pending Blood Anaerobic Blood Culture - Pending 08/21/23 12:07 Aerobic Blood Culture - Final Blood Klebsiella pneumoniae Anaerobic Blood Culture - Final Klebsiella pneumoniae 08/24/23 08/24/23 08/24/23 Unknown 13:53 12:00 WBC RBC Hgb Hct MCV MCH MCHC RDW Std Deviation RDW Coeff of Coty Plt Count MPV Sodium Potassium Chloride Carbon Dioxide Anion Gap BUN Creatinine Est Cr Clr Drug Dosing Est GFR ( Amer) Est GFR (Non-Af Amer) BUN/Creatinine Ratio Glucose POC Glucose 205 H Calcium Phosphorus Magnesium Nasal Screen MRSA (PCR) Negative Random Vancomycin 20.9 H 08/24/23 08/24/23 08/24/23 08:13 05:55 05:54 WBC 7.94 RBC 3.84 L Hgb 10.8 L Hct 33.7 L MCV 87.8 MCH 28.1 MCHC 32.0 RDW Std Deviation 57.2 H RDW Coeff of Coty 17.8 H Plt Count 155 MPV 10.5 Sodium 139 Potassium 4.5 D Chloride 110 H Carbon Dioxide 24 Anion Gap 5 BUN 19 Creatinine 0.53 L Est Cr Clr Drug Dosing 80.9 Est GFR ( Amer) 108.7 Est GFR (Non-Af Amer) 93.8 BUN/Creatinine Ratio 35.8 H Glucose 189 H POC Glucose 188 H Calcium 7.6 L Phosphorus 2.1 L Magnesium 1.9 Nasal Screen MRSA (PCR) Random Vancomycin 08/23/23 08/23/23 20:14 17:11 WBC RBC Hgb Hct MCV MCH MCHC RDW Std Deviation RDW Coeff of Coty Plt Count MPV Sodium Potassium Chloride Carbon Dioxide Anion Gap BUN Creatinine Est Cr Clr Drug Dosing Est GFR ( Amer) Est GFR (Non-Af Amer) BUN/Creatinine Ratio Glucose POC Glucose 268 H 251 H Calcium Phosphorus Magnesium Nasal Screen MRSA (PCR) Random Vancomycin
[2023-08-24] MEDS: ceFAZolin 2000MG 2,000 MG/15 ML SYR IV SCH (19:04)
[2023-08-24] MEDS: OPTIRAY 320 100ml IV ONE (23:01)
--- NOTE | 2023-08-24 23:56 | CT Scan Report ---
Exam(s): CT ABDOMEN + PELVIS With Contrast IV Amt: 90 mls optiray 320 EXAM: CT Abdomen and Pelvis With Intravenous Contrast CLINICAL HISTORY: Reason for exam: bacteremia, r/o abscess/infectious source. TECHNIQUE: Axial computed tomography images of the abdomen and pelvis with intravenous contrast. CTDI is 22.86 mGy and DLP is 1103.98 mGy-cm. Automated exposure control was utilized for the study. A dose lowering technique was utilized adhering to the principles of ALARA. CONTRAST: Patient received 90 mls optiray 320 of IV contrast COMPARISON: 07/05/2022. FINDINGS: Lung bases: Unchanged large left-sided hiatal hernia containing slightly thick-walled stomach with an air-fluid level. Superior aspect of a hiatal hernia is excluded. Small bilateral pleural effusions with associated compressive atelectasis at the right lung base. Cardiomegaly. Small amount of pericardial fluid. ABDOMEN: Liver: Unremarkable. No mass. Gallbladder and bile ducts: Unremarkable. No calcified stones. No ductal dilation. Pancreas: Atrophic. No mass. No ductal dilation. Spleen: Unremarkable. No splenomegaly. Adrenals: Unremarkable. No mass. Kidneys and ureters: No obstructive uropathy. No obstructing renal or ureteral calculi. No hydronephrosis or hydroureter. Stomach and bowel: Gastric containing hiatal hernia. Unchanged large 3. 6 cm gas filled duodenal diverticulum adjacent to the pancreatic head. Small bowel is otherwise unremarkable. Unchanged severe diffuse colonic diverticulosis from the right colon to the mid sigmoid colon. Mild cecal and proximal sigmoid colon wall thickening suggesting mild acute diverticulitis. No free intraperitoneal gas or focal collection. Trace pelvic free fluid with minimal presacral infiltration. Distal rectosigmoid colon is unremarkable. PELVIS: Appendix: Appendix not identified. No secondary evidence for appendicitis. Bladder: Unremarkable. No mass. Reproductive: Unremarkable as visualized. ABDOMEN and PELVIS: Intraperitoneal space: No free air. No free fluid. Bones/joints: No acute fracture. Degenerative changes of the spine. Soft tissues: Unremarkable. Vasculature: Atherosclerotic vascular calcifications. No abdominal aortic aneurysm. Lymph nodes: Unremarkable. No enlarged lymph nodes. IMPRESSION: Redemonstrated abundant colonic diverticuli with suspected cecal and proximal sigmoid: Diverticulitis. No free fluid or free intrapleural gas. Trace free fluid in the pelvis with minimal presacral infiltration. Redemonstrated large left-sided hiatal hernia. Development of small bilateral pleural effusions with associated atelectasis. Otherwise no change. Electronically signed by: Jeison Pierce M.D. 08/24/23 23:54 PM
[2023-08-25 06:58] LABS: BUN Creatinine Ratio 29.8 (10-20); Calcium 7.6 mg/dl (8.6-10.3); Creatinine Clr Calc Pharmacy 94.6 ml/min; Est GFR (African American) 114.2 ml/min; Est GFR (Non-African American) 98.6 ml/min; Magnesium 1.7 mg/dl (1.7-2.4); Phosphorus 1.8 mg/dl (2.5-4.9); Potassium 4.1 mmol/L (3.5-5.1)
[2023-08-25 07:08] LABS: Hematocrit (blood only) 34.6 % (42.0-52.0); Hemoglobin 11.2 g/dl (14.0-18.0); Mean Corpuscular Hemoglobin 27.6 pg (25.0-34.0); Mean Corpuscular Hgb Conc 32.4 g/dL (32.0-36.0); Mean Corpuscular Volume 85.2 fL (80.0-100.0); Mean Platelet Volume 9.7 fL (9.4-12.4); Platelet Count 177 K/uL (130-400); RDW Coefficient of Variation 17.6 % (11.5-14.5); RDW Standard Deviation 54.9 fL (36.4-46.3); Red Blood Count 4.06 M/uL (4.70-6.10); White Blood Count 9.69 K/ul (4.8-10.8)
[2023-08-25] MEDS: metroNIDAZOLE 500 MG TAB PO SCH (15:48)
--- NOTE | 2023-08-25 16:40 | Hospitalist Progress Note ---
Date of Service August 25, 2023 Assessment & Plan (1) TIA (transient ischemic attack): Plan: Initially presented as poss. TIA w/ as transient left facial weakness witnessed by family ? Possible aspirin failure PAF, off anticoagulation secondary to risks, patient currently NSR Medical telemetry Neurochecks Plavix for possible aspirin failure initially MRI/MRA brain Re: TIA additional stroke workup contingent on MRI results , MRI brain negative. Symptoms likely secondary to infection / bacteremia Bacteremia pt febrile after admission - infectious work up obtained urine cloudy but w/o bacteria Chest CT - 1. Subtle ground glass opacities within the right upper lobe suggestive of a mild infectious process. No consolidation. 2. Trace left pleural effusion. No pneumothorax. 3. No thoracic lymphadenopathy. Poss. RUL pna - pt started on iv zosyn + vanco wound on buttock area - wound care consulted Pt has a visible "lump" on his L shoulder - per family it's being drained q3 weeks by [facility] orthopedics, last time about a week ago, however no tenderness and no redness noted on exam Blood cultx (08/21/2023) - positive for Klebsiella pneumonia and E.coli Repeat blood cultx (08/21) - positive for Klebsiella Blood cultx (08/22) - positive growth ID consulted and Echo obtained Echo The study technically difficult due to poor acoustic windows. There is moderate concentric LVH. LVEF 65 to 70%. Aortic valve is mildly calcified. Borderline to mild aortic stenosis is present. If the clinical suspicion for endocarditis remains high, consider ROSALVA. ID consult - (1) Bacteremia: Plan: 88-year-old gentleman with E coli, Klebsiella bacteremia from a unclear source, patient does have a sacral wound however per picture does not look overtly infected, he did not have any indwelling venous access, has largely no symptoms. Gram-negative bacteremia, especially multiple species raises concern for intra-abdominal source. Even though there was no symptoms would recommend evaluation with CT scan of abdomen and pelvis with contrast to evaluate, this will also image his sacrum for any deep-seated infection that may not be overtly obvious on physical exam. Would also recommend echocardiogram, Gram-negative bacteremia can rarely cause endocarditis however given the lack of source would recommend ruling out endocarditis. Patient's bacteremia are pansensitive, given this would deescalate to cefazolin for the time being with discontinuation of his current broad-spectrum antibiotics. We will continue on IV for now with workup as above, final recommendation pending further diagnostics. - Discontinue vancomycin/ Zosyn - Cefazolin 2 g IV q.8 hours based on current renal clearance - CT abdomen and pelvis with contrast - Trans thoracic echocardiogram CT abdomen/pelvis obtained - Redemonstrated abundant colonic diverticuli with suspected cecal and proximal sigmoid: Diverticulitis. No free fluid or free in trapleural gas. Trace free fluid in the pelvis with minimal presacral infiltration. Redemonstrated large left-sided hiatal hernia. Development of small bilateral pleural effusions with associated atelectasis.Otherwise no change. As per ID - switched from zosyn + vanco to cefazolin 2 g IV q8 hrs. Added flagyl for poss. diverticulitis -as above. Pt has no abd.pain. will further discuss w/ ID after holiday weekend. Difficulty swallowing - pt noted to have difficulty swallowing and speech eval was ordered - per speech - pt does not have issues with oral or pharyngeal phases of the swallow but he has no clearance of items from his esophagus and swallowed items were observed re-entering the pharyngeal cavity and being aspirated. NPO with GI to address his esophageal functioning. Topical nystatin in place of oral fluconazole started by PCP for oral thrush (Concern for QTc prolongation with concomitant administration of fluconazole with patient's sotalol) Decrease maintenance prednisone dose from 10 mg to 5 mg daily for inflammatory arthritis given concern for long-term adverse effects (fungal infection, poorly controlled DM, possible myopathy in patient) GI consulted - He and his family do not want any invasive procedures. Also, a PEG tube would not decrease his risk of aspiration and I would recommend comfort feeding as he is currently aware of the risks. 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 Vinod Arceo, contact #[phone]. Mr. Salvatore Arceo, contact #[phone]. Admission and Anticipated Discharge Date Admission Date: August 22, 2023 Subjective Pt seen in follow up of bacteremia, initially presented as poss. TIA Then had fever after admission - infectious work-up obtained and blood cultx posit. Currently sitting up in bed in NAD, denies any chest pain, shortness of breath, abd. pain, n/v Repeat blood cultx again positive - ID consulted, Echo obtained, CT abd/pelvis obtained Pt states overall he feels better Previously seen by GI - pt and family not interested in any procedures Review of Systems Review of Systems: All systems reviewed & are unremarkable except as noted in Subjective Physical Exam Physical Exam: GENERAL: WD/WN elderly M in NAD, + chronically ill appearing HEENT: NC/AT, EOMI NECK : Supple CHEST : Decreased breath sounds, no wheezing HEART : RRR, no obvious murmurs ABDOMEN: soft, no distention, nontender, + bowel sounds EXTREMITIES : No LE swelling/tenderness, chronic left shoulder tenderness w/ chronic "lump" (lump is nontender) NEUROLOGIC : awake and alert, able to answer simple questions appropriately, no facial asymmetry, slightly hard of hearing,moves extremities SKIN: warm, dry Results & Data Results & Data Vital Signs (Past 12 Hours) Vital Signs Temp Pulse Pulse Resp BP Pulse Ox O2 Del Method 08/25/23 15:56 36.8 C 86 17 145/79 H 95 Room Air 08/25/23 14:55 83 08/25/23 11:52 36.4 C L 78 16 161/73 H 91 Room Air 08/25/23 09:57 63 08/25/23 09:03 36.9 C 67 16 145/63 H 94 Room Air Laboratory Results 08/25/23 08/25/23 08/25/23 Range/Units 12:32 12:32 08:35 WBC RBC Hgb Hct MCV MCH MCHC RDW Std Deviation RDW Coeff of Coty Plt Count MPV Absolute Nucleated RBC Nucleated RBC % (auto) Platelet Estimate Sodium (136-145) mmol/L Potassium (3.5-5.1) mmol/L Chloride (98-107) mmol/L Carbon Dioxide (21-32) mmol/L Anion Gap (3-11) BUN (6-23) mg/dl Creatinine (0.6-1.4) mg/dl Est Cr Clr Drug Dosing ml/min Est GFR ( Amer) ml/min Est GFR (Non-Af Amer) ml/min BUN/Creatinine Ratio (10-20) Glucose (70-99(Fasting)) mg/dl POC Glucose 356 H* 311 H* 96 (70-99) mg/dl Calcium (8.6-10.3) mg/dl Phosphorus (2.5-4.9) mg/dl Magnesium (1.7-2.4) mg/dl 08/25/23 08/25/23 08/24/23 Range/Units 06:53 06:11 20:24 WBC 9.69 Cancelled RBC 4.06 L Cancelled Hgb 11.2 L Cancelled Hct 34.6 L Cancelled MCV 85.2 Cancelled MCH 27.6 Cancelled MCHC 32.4 Cancelled RDW Std Deviation 54.9 H Cancelled RDW Coeff of Coty 17.6 H Cancelled Plt Count 177 Cancelled MPV 9.7 Cancelled Absolute Nucleated RBC Cancelled Nucleated RBC % (auto) Cancelled Platelet Estimate Cancelled Sodium 138 (136-145) mmol/L Potassium 4.1 (3.5-5.1) mmol/L Chloride 109 H (98-107) mmol/L Carbon Dioxide 25 (21-32) mmol/L Anion Gap 4 (3-11) BUN 14 (6-23) mg/dl Creatinine 0.47 L (0.6-1.4) mg/dl Est Cr Clr Drug Dosing 94.6 ml/min Est GFR ( Amer) 114.2 ml/min Est GFR (Non-Af Amer) 98.6 ml/min BUN/Creatinine Ratio 29.8 H (10-20) Glucose 100 H (70-99(Fasting)) mg/dl POC Glucose 172 H (70-99) mg/dl Calcium 7.6 L (8.6-10.3) mg/dl Phosphorus 1.8 L (2.5-4.9) mg/dl Magnesium 1.7 (1.7-2.4) mg/dl 08/24/23 Range/Units 17:36 WBC RBC Hgb Hct MCV MCH MCHC RDW Std Deviation RDW Coeff of Coty Plt Count MPV Absolute Nucleated RBC Nucleated RBC % (auto) Platelet Estimate Sodium (136-145) mmol/L Potassium (3.5-5.1) mmol/L Chloride (98-107) mmol/L Carbon Dioxide (21-32) mmol/L Anion Gap (3-11) BUN (6-23) mg/dl Creatinine (0.6-1.4) mg/dl Est Cr Clr Drug Dosing ml/min Est GFR ( Amer) ml/min Est GFR (Non-Af Amer) ml/min BUN/Creatinine Ratio (10-20) Glucose (70-99(Fasting)) mg/dl POC Glucose 241 H (70-99) mg/dl Calcium (8.6-10.3) mg/dl Phosphorus (2.5-4.9) mg/dl Magnesium (1.7-2.4) mg/dl Medications Administered Current Inpatient Medications Acetaminophen (Acetaminophen 325 Mg Tab) 650 mg PO QID PRN PRN Reason: pain/fever Stop: 09/20/23 00:12 Last Admin: 08/21/23 20:38 Dose: 650 mg Aspirin (Aspirin 81 Mg Ectab) 81 mg PO [facility] Stop: 09/20/23 08:59 Last Admin: 08/25/23 09:15 Dose: 81 mg Atorvastatin Calcium (Atorvastatin 40 Mg Tab) 80 mg PO [facility] Stop: 09/20/23 08:59 Last Admin: 08/25/23 09:15 Dose: 80 mg Dextrose (Dextrose 50% 50 Ml Syringe) 25 - 50 ml IV UD PRN; Protocol PRN Reason: Hypoglycemia Protocol Stop: 09/20/23 00:12 Enoxaparin Sodium (Enoxaparin Inj 30 Mg/0.3 Ml Syr) 30 mg SQ [facility] Stop: 09/20/23 08:59 Last Admin: 08/25/23 09:16 Dose: 30 mg Finasteride (Finasteride 5 Mg Tab) 5 mg PO [facility] Stop: 09/20/23 08:59 Last Admin: 08/25/23 09:16 Dose: 5 mg Glucagon (Glucagon For Inj 1 Mg Vial) 1 mg SQ UD PRN; Protocol PRN Reason: Hypoglycemia Protocol Stop: 09/20/23 00:12 Glucose (Glucose 40% Gel 15 Gm Tube) 15 - 30 gm PO UD PRN; Protocol PRN Reason: Hypoglycemia Protocol Stop: 09/20/23 00:12 Glucose (Glucose 10 Tab/Tube) 4 - 8 tab PO UD PRN; Protocol PRN Reason: Hypoglycemia Treatment Stop: 09/20/23 00:12 Guaifenesin (Guaifenesin 600 Mg Tabcr) 600 mg PO Q12 [facility] Stop: 09/21/23 13:04 Last Admin: 08/25/23 09:16 Dose: 600 mg Promethazine HCl 6.25 mg/ (Sodium Chloride) 50.25 mls @ 201 mls/hr IV Q6H PRN PRN Reason: Nausea And Vomiting Stop: 09/20/23 00:12 Pantoprazole Sodium 40 mg/ (Syringe) 10 mls @ 5 mls/min IV BID [facility] Stop: 09/21/23 20:59 Last Admin: 08/25/23 09:15 Dose: 5 mls/min Cefazolin Sodium (Ancef 2000mg) 2,000 mg in 15 mls @ 3.75 mls/min IV Q8H [facility] Stop: 09/07/23 17:44 Last Admin: 08/25/23 09:17 Dose: 3.75 mls/min Insulin Aspart (Insulin Aspart Per Unit Charge) 0 units SC ACHS [facility] Stop: 09/21/23 17:29 Last Admin: 08/25/23 13:32 Dose: 14 units Insulin Glargine (Lantus Per Unit Charge) 5 units SQ BID [facility] Stop: 09/20/23 08:59 Last Admin: 08/25/23 09:14 Dose: 5 units Menthol (Cough Drop (Sugar Free) Ge 24 Ge/1 Box) 1 ge BUCCAL Q8H PRN PRN Reason: Sore Throat Stop: 09/20/23 18:02 Metronidazole (Metronidazole 500 Mg Tab) 500 mg PO TID [facility]; Protocol Stop: 08/29/23 13:59 Last Admin: 08/25/23 15:48 Dose: 500 mg Miscellaneous (Carbohydrates For Hypoglycemia ) 15 - 30 gm PO UD PRN PRN Reason: Hypoglycemia Protocol Stop: 09/20/23 00:12 Nystatin (Nystatin Susp 500,000 U/5 Ml Udc) 5 ml PO QID [facility] Stop: 08/31/23 12:59 Last Admin: 08/25/23 13:32 Dose: 5 ml Prednisone (Prednisone 5 Mg Tab) 5 mg PO QAM [facility] Stop: 09/21/23 08:59 Last Admin: 08/25/23 09:16 Dose: 5 mg Psyllium Hydrophilic Mucilloid (Psyllium Or Guar Gum Fiber 4gm Packet) 4 gm PO DAILY [facility] Stop: 09/20/23 08:59 Last Admin: 08/25/23 09:15 Dose: 4 gm Sotalol HCl (Sotalol Hcl 80 Mg Tab) 40 mg PO BID [facility] Stop: 09/20/23 08:59 Last Admin: 08/25/23 09:15 Dose: 40 mg
[2023-08-25] MEDS: MAGNESIUM SULFATE / D5W 1 GM/100 ML BAG IV ONE (17:15)
[2023-08-25] MEDS: POT PHOSPHATE MONOBASIC W/ SOD TAB PO SCH (17:57)
[2023-08-26 06:39] LABS: Hematocrit (blood only) 35.7 % (42.0-52.0); Hemoglobin 11.3 g/dl (14.0-18.0); Mean Corpuscular Hemoglobin 27.6 pg (25.0-34.0); Mean Corpuscular Hgb Conc 31.7 g/dL (32.0-36.0); Mean Corpuscular Volume 87.1 fL (80.0-100.0); Mean Platelet Volume 10.1 fL (9.4-12.4); Platelet Count 190 K/uL (130-400); RDW Coefficient of Variation 17.2 % (11.5-14.5); RDW Standard Deviation 55.9 fL (36.4-46.3); White Blood Count 9.85 K/ul (4.8-10.8)
[2023-08-26 06:54] LABS: Calcium 7.5 mg/dl (8.6-10.3); Magnesium 1.8 mg/dl (1.7-2.4)
[2023-08-26 06:59] LABS: BUN Creatinine Ratio 33.3 (10-20); Creatinine Clr Calc Pharmacy 98.2 ml/min; Est GFR (African American) 116.3 ml/min; Est GFR (Non-African American) 100.3 ml/min
[2023-08-26 07:06] LABS: Phosphorus 1.5 mg/dl (2.5-4.9)
[2023-08-26] MEDS ORDERED: SODIUM PHOSPHATE 3 MMOL/1 ML INFUSION IV STA (07:20)
--- NOTE | 2023-08-26 07:22 | Hospitalist Progress Note ---
Date of Service August 26, 2023 Assessment & Plan (1) TIA (transient ischemic attack): Plan: Initially presented as poss. TIA w/ as transient left facial weakness witnessed by family ? Possible aspirin failure PAF, off anticoagulation secondary to risks, patient currently NSR Medical telemetry Neurochecks Plavix for possible aspirin failure initially MRI/MRA brain Re: TIA additional stroke workup contingent on MRI results , MRI brain negative. Symptoms likely secondary to infection / bacteremia Bacteremia pt febrile after admission - infectious work up obtained urine cloudy but w/o bacteria Chest CT - 1. Subtle ground glass opacities within the right upper lobe suggestive of a mild infectious process. No consolidation. 2. Trace left pleural effusion. No pneumothorax. 3. No thoracic lymphadenopathy. Poss. RUL pna - pt started on iv zosyn + vanco wound on buttock area - wound care consulted Pt has a visible "lump" on his L shoulder - per family it's being drained q3 weeks by [facility] orthopedics, last time about a week ago, however no tenderness and no redness noted on exam Blood cultx (08/21/2023) - positive for Klebsiella pneumonia and E.coli Repeat blood cultx (08/21) - positive for Klebsiella Blood cultx (08/22) - positive for Klebsiella Blood cultx (08/24) - pending ID consulted and Echo obtained Echo The study technically difficult due to poor acoustic windows. There is moderate concentric LVH. LVEF 65 to 70%. Aortic valve is mildly calcified. Borderline to mild aortic stenosis is present. If the clinical suspicion for endocarditis remains high, consider ROSALVA. ID consult - (1) Bacteremia: Plan: 88-year-old gentleman with E coli, Klebsiella bacteremia from a unclear source, patient does have a sacral wound however per picture does not look overtly infected, he did not have any indwelling venous access, has largely no symptoms. Gram-negative bacteremia, especially multiple species raises concern for intra-abdominal source. Even though there was no symptoms would recommend evaluation with CT scan of abdomen and pelvis with contrast to evaluate, this will also image his sacrum for any deep-seated infection that may not be overtly obvious on physical exam. Would also recommend echocardiogram, Gram-negative bacteremia can rarely cause endocarditis however given the lack of source would recommend ruling out endocarditis. Patient's bacteremia are pansensitive, given this would deescalate to cefazolin for the time being with discontinuation of his current broad-spectrum antibiotics. We will continue on IV for now with workup as above, final recommendation p ending further diagnostics. - Discontinue vancomycin/ Zosyn - Cefazolin 2 g IV q.8 hours based on current renal clearance - CT abdomen and pelvis with contrast - Trans thoracic echocardiogram CT abdomen/pelvis obtained - Redemonstrated abundant colonic diverticuli with suspected cecal and proximal sigmoid: Diverticulitis. No free fluid or free intrapleural gas. Trace free fluid in the pelvis with minimal presacral infiltration. Redemonstrated large left-sided hiatal hernia. Development of small bilateral pleural effusions with associated atelectasis.Otherwise no change. As per ID - switched from zosyn + vanco to cefazolin 2 g IV q8 hrs. Added flagyl for poss. diverticulitis -as above. Pt has no abd.pain. will further discuss w/ ID after holiday weekend. Difficulty swallowing - pt noted to have difficulty swallowing and speech eval was ordered - per speech - pt does not have issues with oral or pharyngeal phases of the swallow but he has no clearance of items from his esophagus and swallowed items were observed re-entering the pharyngeal cavity and being aspirated. NPO with GI to address his esophageal functioning. Topical nystatin in place of oral fluconazole started by PCP for oral thrush (Concern for QTc prolongation with concomitant administration of fluconazole with patient's sotalol) Decrease maintenance prednisone dose from 10 mg to 5 mg daily for inflammatory arthritis given concern for long-term adverse effects (fungal infection, poorly controlled DM, possible myopathy in patient) GI consulted - He and his family do not want any invasive procedures. Also, a PEG tube would not decrease his risk of aspiration and I would recommend comfort feeding as he is currently aware of the risks. 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 Vinod Arceo, contact #[phone]. Mr. Salvatore Arceo, contact #[phone]. Admission and Anticipated Discharge Date Admission Date: August 22, 2023 Subjective Pt seen in follow up of bacteremia, initially presented as poss. TIA Then had fever after admission - infectious work-up obtained and blood cultx posit. Currently sitting up in bed in NAD, denies any chest pain, shortness of breath, abd. pain, n/v Repeat blood cultx again positive - ID consulted, Echo obtained, CT abd/pelvis obtained - c/w diverticulitis Pt states overall he feels better Review of Systems Review of Systems: All systems reviewed & are unremarkable except as noted in Subjective Physical Exam Physical Exam: GENERAL: WD/WN elderly M in NAD, + chronically ill appearing HEENT: NC/AT, EOMI NECK : Supple CHEST : Decreased breath sounds, no wheezing HEART : RRR, no obvious murmurs ABDOMEN: soft, no distention, nontender, + bowel sounds EXTREMITIES : No LE swelling/tenderness, chronic left shoulder tenderness w/ chronic "lump" (lump is nontender) NEUROLOGIC : awake and alert, able to answer simple questions appropriately, no facial asymmetry, slightly hard of hearing,moves extremities SKIN: warm, dry Results & Data Results & Data Vital Signs (Past 12 Hours) Vital Signs Temp Pulse Pulse Resp BP Pulse Ox O2 Del Method 08/26/23 07:12 60 08/26/23 03:22 36.8 C 68 16 161/87 H 95 Room Air 08/26/23 00:16 60 08/25/23 23:09 36.3 C L 74 18 109/54 L 98 Room Air 08/25/23 19:37 36.9 C 75 16 145/67 H 93 Room Air Laboratory Results 08/26/23 08/25/23 08/25/23 Range/Units 05:49 20:17 20:15 WBC 9.85 (4.8-10.8) K/ul RBC 4.10 L (4.70-6.10) M/uL Hgb 11.3 L (14.0-18.0) g/dl Hct 35.7 L (42.0-52.0) % MCV 87.1 (80.0-100.0) fL MCH 27.6 (25.0-34.0) pg MCHC 31.7 L (32.0-36.0) g/dL RDW Std Deviation 55.9 H (36.4-46.3) fL RDW Coeff of Coty 17.2 H (11.5-14.5) % Plt Count 190 (130-400) K/uL MPV 10.1 (9.4-12.4) fL Sodium 135 L (136-145) mmol/L Potassium 4.0 (3.5-5.1) mmol/L Chloride 107 (98-107) mmol/L Carbon Dioxide 23 (21-32) mmol/L Anion Gap 5 (3-11) BUN 15 (6-23) mg/dl Creatinine 0.45 L (0.6-1.4) mg/dl Est Cr Clr Drug Dosing 98.2 ml/min Est GFR ( Amer) 116.3 ml/min Est GFR (Non-Af Amer) 100.3 ml/min BUN/Creatinine Ratio 33.3 H (10-20) Glucose 201 H (70-99(Fasting)) mg/dl POC Glucose 355 H* 332 H* (70-99) mg/dl Calcium 7.5 L (8.6-10.3) mg/dl Phosphorus 1.5 L* (2.5-4.9) mg/dl Magnesium 1.8 (1.7-2.4) mg/dl 08/25/23 08/25/23 08/25/23 Range/Units 17:21 12:32 12:32 WBC (4.8-10.8) K/ul RBC (4.70-6.10) M/uL Hgb (14.0-18.0) g/dl Hct (42.0-52.0) % MCV (80.0-100.0) fL MCH (25.0-34.0) pg MCHC (32.0-36.0) g/dL RDW Std Deviation (36.4-46.3) fL RDW Coeff of Coty (11.5-14.5) % Plt Count (130-400) K/uL MPV (9.4-12.4) fL Sodium (136-145) mmol/L Potassium (3.5-5.1) mmol/L Chloride (98-107) mmol/L Carbon Dioxide (21-32) mmol/L Anion Gap (3-11) BUN (6-23) mg/dl Creatinine (0.6-1.4) mg/dl Est Cr Clr Drug Dosing ml/min Est GFR ( Amer) ml/min Est GFR (Non-Af Amer) ml/min BUN/Creatinine Ratio (10-20) Glucose (70-99(Fasting)) mg/dl POC Glucose 266 H 356 H* 311 H* (70-99) mg/dl Calcium (8.6-10.3) mg/dl Phosphorus (2.5-4.9) mg/dl Magnesium (1.7-2.4) mg/dl 08/25/23 Range/Units 08:35 WBC (4.8-10.8) K/ul RBC (4.70-6.10) M/uL Hgb (14.0-18.0) g/dl Hct (42.0-52.0) % MCV (80.0-100.0) fL MCH (25.0-34.0) pg MCHC (32.0-36.0) g/dL RDW Std Deviation (36.4-46.3) fL RDW Coeff of Coty (11.5-14.5) % Plt Count (130-400) K/uL MPV (9.4-12.4) fL Sodium (136-145) mmol/L Potassium (3.5-5.1) mmol/L Chloride (98-107) mmol/L Carbon Dioxide (21-32) mmol/L Anion Gap (3-11) BUN (6-23) mg/dl Creatinine (0.6-1.4) mg/dl Est Cr Clr Drug Dosing ml/min Est GFR ( Amer) ml/min Est GFR (Non-Af Amer) ml/min BUN/Creatinine Ratio (10-20) Glucose (70-99(Fasting)) mg/dl POC Glucose 96 (70-99) mg/dl Calcium (8.6-10.3) mg/dl Phosphorus (2.5-4.9) mg/dl Magnesium (1.7-2.4) mg/dl
[2023-08-26] MEDS: MAGNESIUM SULFATE / D5W 1 GM/100 ML BAG IV ONE (07:38)
[2023-08-26] MEDS: SODIUM PHOSPHATE 9 MMOL in SODIUM CHLORIDE 0.9% 250 ML IV ONE (08:04)
[2023-08-27 06:08] LABS: BUN Creatinine Ratio 33.3 (10-20); Calcium 7.4 mg/dl (8.6-10.3); Creatinine Clr Calc Pharmacy 94.3 ml/min; Est GFR (African American) 113.2 ml/min; Est GFR (Non-African American) 97.7 ml/min; Magnesium 1.8 mg/dl (1.7-2.4); Phosphorus 1.8 mg/dl (2.5-4.9); Potassium 4.1 mmol/L (3.5-5.1)
[2023-08-27] MEDS: KETOROLAC TROMETHAMINE 15 MG/ML VIAL IV ONE ×2 (08:34→18:41)
[2023-08-27] MEDS ORDERED: SODIUM PHOSPHATE 3 MMOL/1 ML INFUSION IV STA (17:06)
--- NOTE | 2023-08-27 17:15 | Hospitalist Progress Note ---
Date of Service August 27, 2023 Assessment & Plan (1) TIA (transient ischemic attack): Plan: Initially presented as poss. TIA w/ as transient left facial weakness witnessed by family ? Possible aspirin failure PAF, off anticoagulation secondary to risks, patient currently NSR Medical telemetry Neurochecks Plavix for possible aspirin failure initially MRI/MRA brain Re: TIA additional stroke workup contingent on MRI results , MRI brain negative. Symptoms likely secondary to infection / bacteremia Bacteremia pt febrile after admission - infectious work up obtained urine cloudy but w/o bacteria Chest CT - 1. Subtle ground glass opacities within the right upper lobe suggestive of a mild infectious process. No consolidation. 2. Trace left pleural effusion. No pneumothorax. 3. No thoracic lymphadenopathy. Poss. RUL pna - pt started on iv zosyn + vanco wound on buttock area - wound care consulted Pt has a visible "lump" on his L shoulder - per family it's being drained q3 weeks by [facility] orthopedics, last time about a week ago, however no tenderness and no redness noted on exam Blood cultx (08/21/2023) - positive for Klebsiella pneumonia and E.coli Repeat blood cultx (08/21) - positive for Klebsiella Blood cultx (08/22) - positive for Klebsiella Blood cultx (08/24) - NGTD ID consulted and Echo obtained Echo The study technically difficult due to poor acoustic windows. There is moderate concentric LVH. LVEF 65 to 70%. Aortic valve is mildly calcified. Borderline to mild aortic stenosis is present. If the clinical suspicion for endocarditis remains high, consider ROSALVA. ID consult - (1) Bacteremia: Plan: 88-year-old gentleman with E coli, Klebsiella bacteremia from a unclear source, patient does have a sacral wound however per picture does not look overtly infected, he did not have any indwelling venous access, has largely no symptoms. Gram-negative bacteremia, especially multiple species raises concern for intra-abdominal source. Even though there was no symptoms would recommend evaluation with CT scan of abdomen and pelvis with contrast to evaluate, this will also image his sacrum for any deep-seated infection that may not be overtly obvious on physical exam. Would also recommend echocardiogram, Gram-negative bacteremia can rarely cause endocarditis however given the lack of source would recommend ruling out endocarditis. Patient's bacteremia are pansensitive, given this would deescalate to cefazolin for the time being with discontinuation of his current broad-spectrum antibiotics. We will continue on IV for now with workup as above, final recommendation pend ing further diagnostics. - Discontinue vancomycin/ Zosyn - Cefazolin 2 g IV q.8 hours based on current renal clearance - CT abdomen and pelvis with contrast - Trans thoracic echocardiogram CT abdomen/pelvis obtained - Redemonstrated abundant colonic diverticuli with suspected cecal and proximal sigmoid: Diverticulitis. No free fluid or free intrapleural gas. Trace free fluid in the pelvis with minimal presacral infiltration. Redemonstrated large left-sided hiatal hernia. Development of small bilateral pleural effusions with associated atelectasis.Otherwise no change. As per ID - switched from zosyn + vanco to cefazolin 2 g IV q8 hrs. Added flagyl for poss. diverticulitis -as above. Pt has no abd.pain. will further discuss w/ ID after holiday weekend. Difficulty swallowing - pt noted to have difficulty swallowing and speech eval was ordered - per speech - pt does not have issues with oral or pharyngeal phases of the swallow but he has no clearance of items from his esophagus and swallowed items were observed re-entering the pharyngeal cavity and being aspirated. NPO with GI to address his esophageal functioning. Topical nystatin in place of oral fluconazole started by PCP for oral thrush (Concern for QTc prolongation with concomitant administration of fluconazole with patient's sotalol) Decrease maintenance prednisone dose from 10 mg to 5 mg daily for inflammatory arthritis given concern for long-term adverse effects (fungal infection, poorly controlled DM, possible myopathy in patient) GI consulted - He and his family do not want any invasive procedures. Also, a PEG tube would not decrease his risk of aspiration and I would recommend comfort feeding as he is currently aware of the risks. 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 Vinod Arceo, contact #[phone]. Mr. Salvatore Arceo, contact #[phone]. Admission and Anticipated Discharge Date Admission Date: August 22, 2023 Subjective Pt seen in follow up of bacteremia, initially presented as poss. TIA Then had fever after admission - infectious work-up obtained and blood cultx posit. Currently sitting up in bed in NAD, denies any chest pain, shortness of breath, abd. pain, n/v Repeat blood cultx again positive - ID consulted, Echo obtained, CT abd/pelvis obtained - c/w diverticulitis blood cultx from 08/24 so far negative Pt states overall he feels better Review of Systems Review of Systems: All systems reviewed & are unremarkable except as noted in Subjective Physical Exam Physical Exam: GENERAL: WD/WN elderly M in NAD, + chronically ill appearing HEENT: NC/AT, EOMI NECK : Supple CHEST : Decreased breath sounds, no wheezing HEART : RRR, no obvious murmurs ABDOMEN: soft, no distention, nontender, + bowel sounds EXTREMITIES : No LE swelling/tenderness, chronic left shoulder tenderness w/ chronic "lump" (lump is nontender) NEUROLOGIC : awake and alert, able to answer simple questions appropriately, no facial asymmetry, slightly hard of hearing,moves extremities SKIN: warm, dry Results & Data Results & Data Vital Signs (Past 12 Hours) Vital Signs Temp Pulse Pulse Resp BP Pulse Ox O2 Del Method 08/27/23 14:55 36.9 C 96 H 14 123/73 92 Room Air 08/27/23 10:49 36.8 C 62 15 115/72 94 Room Air 08/27/23 08:03 93 H 08/27/23 07:13 36.9 C 95 H 15 149/79 H 96 Room Air Laboratory Results 08/27/23 08/27/23 08/27/23 Range/Units 11:38 08:00 05:33 Sodium 137 (136-145) mmol/L Potassium 4.1 (3.5-5.1) mmol/L Chloride 106 (98-107) mmol/L Carbon Dioxide 27 (21-32) mmol/L Anion Gap 4 (3-11) BUN 16 (6-23) mg/dl Creatinine 0.48 L (0.6-1.4) mg/dl Est Cr Clr Drug Dosing 94.3 ml/min Est GFR ( Amer) 113.2 ml/min Est GFR (Non-Af Amer) 97.7 ml/min BUN/Creatinine Ratio 33.3 H (10-20) Glucose 206 H (70-99(Fasting)) mg/dl POC Glucose 306 H* 197 H (70-99) mg/dl Calcium 7.4 L (8.6-10.3) mg/dl Phosphorus 1.8 L (2.5-4.9) mg/dl Magnesium 1.8 (1.7-2.4) mg/dl 08/26/23 Range/Units 20:10 Sodium (136-145) mmol/L Potassium (3.5-5.1) mmol/L Chloride (98-107) mmol/L Carbon Dioxide (21-32) mmol/L Anion Gap (3-11) BUN (6-23) mg/dl Creatinine (0.6-1.4) mg/dl Est Cr Clr Drug Dosing ml/min Est GFR ( Amer) ml/min Est GFR (Non-Af Amer) ml/min BUN/Creatinine Ratio (10-20) Glucose (70-99(Fasting)) mg/dl POC Glucose 215 H (70-99) mg/dl Calcium (8.6-10.3) mg/dl Phosphorus (2.5-4.9) mg/dl Magnesium (1.7-2.4) mg/dl Medications Administered Current Inpatient Medications Acetaminophen (Acetaminophen 325 Mg Tab) 650 mg PO QID PRN PRN Reason: pain/fever Stop: 09/20/23 00:12 Last Admin: 08/26/23 07:38 Dose: 650 mg Aspirin (Aspirin 81 Mg Ectab) 81 mg PO [facility] Stop: 09/20/23 08:59 Last Admin: 08/27/23 08:36 Dose: 81 mg Atorvastatin Calcium (Atorvastatin 40 Mg Tab) [facility] [place]: 09/20/23 08:59 Last Admin: 08/27/23 08:36 Dose: 80 mg Dextrose (Dextrose 50% 50 Ml Syringe) 25 - 50 ml IV UD PRN; Protocol PRN Reason: Hypoglycemia Protocol Stop: 09/20/23 00:12 Enoxaparin Sodium (Enoxaparin Inj 30 Mg/0.3 Ml Syr) 30 mg SQ [facility] Stop: 09/20/23 08:59 Last Admin: 08/27/23 08:36 Dose: 30 mg Finasteride (Finasteride 5 Mg Tab) 5 mg PO [facility] Stop: 09/20/23 08:59 Last Admin: 08/27/23 08:35 Dose: 5 mg Glucagon (Glucagon For Inj 1 Mg Vial) 1 mg SQ UD PRN; Protocol PRN Reason: Hypoglycemia Protocol Stop: 09/20/23 00:12 Glucose (Glucose 40% Gel 15 Gm Tube) 15 - 30 gm PO UD PRN; Protocol PRN Reason: Hypoglycemia Protocol Stop: 09/20/23 00:12 Glucose (Glucose 10 Tab/Tube) 4 - 8 tab PO UD PRN; Protocol PRN Reason: Hypoglycemia Treatment Stop: 09/20/23 00:12 Guaifenesin (Guaifenesin 600 Mg Tabcr) 600 mg PO Q12 [facility] Stop: 09/21/23 13:04 Last Admin: 08/27/23 08:35 Dose: 600 mg Promethazine HCl 6.25 mg/ (Sodium Chloride) 50.25 mls @ 201 mls/hr IV Q6H PRN PRN Reason: Nausea And Vomiting Stop: 09/20/23 00:12 Pantoprazole Sodium 40 mg/ (Syringe) 10 mls @ 5 mls/min IV BID [facility] Stop: 09/21/23 20:59 Last Admin: 08/27/23 08:34 Dose: 5 mls/min Cefazolin Sodium (Ancef 2000mg) 2,000 mg in 15 mls @ 3.75 mls/min IV Q8H [facility] Stop: 09/07/23 17:44 Last Admin: 08/27/23 08:39 Dose: 3.75 mls/min Sodium Phosphate 9 mmol/ (Sodium Chloride) 253 mls @ 88 mls/hr IV ONE ONE Stop: 08/27/23 20:07 Insulin Aspart (Insulin Aspart Per Unit Charge) 0 units SC ACHS [facility] Stop: 09/21/23 17:29 Last Admin: 08/27/23 13:17 Dose: 12 units Insulin Glargine (Lantus Per Unit Charge) 5 units SQ BID [facility] Stop: 09/20/23 08:59 Last Admin: 08/27/23 08:39 Dose: 5 units Menthol (Cough Drop (Sugar Free) Ge 24 Ge/1 Box) 1 ge BUCCAL Q8H PRN PRN Reason: Sore Throat Stop: 09/20/23 18:02 Metronidazole (Metronidazole 500 Mg Tab) 500 mg PO TID [facility]; Protocol Stop: 08/29/23 13:59 Last Admin: 08/27/23 13:18 Dose: 500 mg Miscellaneous (Carbohydrates For Hypoglycemia ) 15 - 30 gm PO UD PRN PRN Reason: Hypoglycemia Protocol Stop: 09/20/23 00:12 Nystatin (Nystatin Susp 500,000 U/5 Ml Udc) 5 ml PO QID [facility] Stop: 08/31/23 12:59 Last Admin: 08/27/23 13:18 Dose: 5 ml Potassium Phosphate (Pot Phosphate Monobasic W/ Sod Tab) 1 tab PO QID [facility] Stop: 09/24/23 16:59 Last Admin: 08/27/23 13:18 Dose: 1 tab Prednisone (Prednisone 5 Mg Tab) 5 mg PO QAM [facility] Stop: 09/21/23 08:59 Last Admin: 08/27/23 08:36 Dose: 5 mg Psyllium Hydrophilic Mucilloid (Psyllium Or Guar Gum Fiber 4gm Packet) 4 gm PO DAILY [facility] Stop: 09/20/23 08:59 Last Admin: 08/27/23 08:36 Dose: 4 gm Sotalol HCl (Sotalol Hcl 80 Mg Tab) 40 mg PO BID [facility] Stop: 09/20/23 08:59 Last Admin: 08/27/23 08:35 Dose: 40 mg
[2023-08-27] MEDS: SODIUM PHOSPHATE 9 MMOL in SODIUM CHLORIDE 0.9% 250 ML IV ONE (17:23)
[2023-08-28 06:10] LABS: Hemoglobin 10.4 g/dl (14.0-18.0); Mean Corpuscular Hemoglobin 27.4 pg (25.0-34.0); Mean Corpuscular Hgb Conc 31.5 g/dL (32.0-36.0); Mean Corpuscular Volume 86.8 fL (80.0-100.0); Mean Platelet Volume 9.6 fL (9.4-12.4); Platelet Count 261 K/uL (130-400); RDW Coefficient of Variation 17.4 % (11.5-14.5); RDW Standard Deviation 55.5 fL (36.4-46.3); White Blood Count 9.72 K/ul (4.8-10.8)
[2023-08-28 06:23] LABS: Albumin Globulin Ratio 0.8 (0.9-2); Albumin Level 2.1 gm/dl (3.4-5.0); BUN Creatinine Ratio 38.1 (10-20); Bilirubin,Total 0.3 mg/dl (0.2-1.0); Calcium 7.4 mg/dl (8.6-10.3); Creatinine Clr Calc Pharmacy 74.3 ml/min; Est GFR (African American) 101.3 ml/min; Est GFR (Non-African American) 87.4 ml/min; Globulin 2.6 gm/dl (2.5-4.0); Magnesium 1.7 mg/dl (1.7-2.4); Phosphorus 2.4 mg/dl (2.5-4.9); Potassium 4.4 mmol/L (3.5-5.1); Total Protein 4.7 gm/dl (6.0-8.3)
[2023-08-28] MEDS: KETOROLAC TROMETHAMINE 15 MG/ML VIAL IV ONE (09:48)
[2023-08-28] MEDS: MAGNESIUM SULFATE / D5W 1 GM/100 ML BAG IV ONE (09:48)
--- NOTE | 2023-08-28 11:00 | Hospitalist Progress Note ---
Date of Service August 28, 2023 Assessment & Plan (1) TIA (transient ischemic attack): Plan: Initially presented as poss. TIA w/ as transient left facial weakness witnessed by family ? Possible aspirin failure PAF, off anticoagulation secondary to risks, patient currently NSR Medical telemetry Neurochecks Plavix for possible aspirin failure initially MRI/MRA brain Re: TIA additional stroke workup contingent on MRI results , MRI brain negative. Symptoms likely secondary to infection / bacteremia Bacteremia pt febrile after admission - infectious work up obtained urine cloudy but w/o bacteria Chest CT - 1. Subtle ground glass opacities within the right upper lobe suggestive of a mild infectious process. No consolidation. 2. Trace left pleural effusion. No pneumothorax. 3. No thoracic lymphadenopathy. Poss. RUL pna - pt started on iv zosyn + vanco wound on buttock area - wound care consulted Pt has a visible "lump" on his L shoulder - per family it's being drained q3 weeks by [facility] orthopedics, last time about a week ago, however no tenderness and no redness noted on exam Blood cultx (08/21/2023) - positive for Klebsiella pneumonia and E.coli Repeat blood cultx (08/21) - positive for Klebsiella Blood cultx (08/22) - positive for Klebsiella Blood cultx (08/24) - Negative in 48 hrs ID consulted and Echo obtained Echo The study technically difficult due to poor acoustic windows. There is moderate concentric LVH. LVEF 65 to 70%. Aortic valve is mildly calcified. Borderline to mild aortic stenosis is present. If the clinical suspicion for endocarditis remains high, consider ROSALVA. ID consult - (1) Bacteremia: Plan: 88-year-old gentleman with E coli, Klebsiella bacteremia from a unclear source, patient does have a sacral wound however per picture does not look overtly infected, he did not have any indwelling venous access, has largely no symptoms. Gram-negative bacteremia, especially multiple species raises concern for intra-abdominal source. Even though there was no symptoms would recommend evaluation with CT scan of abdomen and pelvis with contrast to evaluate, this will also image his sacrum for any deep-seated infection that may not be overtly obvious on physical exam. Would also recommend echocardiogram, Gram-negative bacteremia can rarely cause endocarditis however given the lack of source would recommend ruling out endocarditis. Patient's bacteremia are pansensitive, given this would deescalate to cefazolin for the time being with discontinuation of his current broad-spectrum antibiotics. We will continue on IV for now with workup as above, final recommendation pending further diagnostics. - Discontinue vancomycin/ Zosyn - Cefazolin 2 g IV q.8 hours based on current renal clearance - CT abdomen and pelvis with contrast - Trans thoracic echocardiogram CT abdomen/pelvis obtained - Redemonstrated abundant colonic diverticuli with suspected cecal and proximal sigmoid: Diverticulitis. No free fluid or free intrapleural gas. Trace free fluid in the pelvis with minimal presacral infiltration. Redemonstrated large left-sided hiatal hernia. Development of small bilateral pleural effusions with associated atelectasis.Otherwise no change. As per ID - switched from zosyn + vanco to cefazolin 2 g IV q8 hrs. Added flagyl for poss. diverticulitis -as above. Pt has no abd.pain. will further discuss w/ ID after holiday weekend. 08/27 [facility] ID contacted for follow up/ final recommendations Difficulty swallowing - pt noted to have difficulty swallowing and speech eval was ordered - per speech therapist - pt does not have issues with oral or pharyngeal phases of the swallow but he has no clearance of items from his esophagus and swallowed items were observed re-entering the pharyngeal cavity and being aspirated. NPO with GI to address his esophageal functioning. Per admitting provider - Topical nystatin in place of oral fluconazole started by PCP for oral thrush (Concern for QTc prolongation with concomitant administration of fluconazole with patient's sotalol) Decrease maintenance prednisone dose from 10 mg to 5 mg daily for inflammatory arthritis given concern for long-term adverse effects (fungal infection, poorly controlled DM, possible myopathy in patient) GI consulted - Patient and his family do not want any invasive procedures. Also, a PEG tube would not decrease his risk of aspiration and I would recommend comfort feeding as he is currently aware of the risks. 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 Vinod Arceo, contact #[phone]. Mr. Salvatore Arceo, contact #[phone]. Admission and Anticipated Discharge Date Admission Date: August 22, 2023 Subjective Pt seen in follow up of bacteremia, initially presented as poss. TIA Then had fever after admission - infectious work-up obtained and blood cultx posit. Currently sitting up in chair in NAD, says overall he feels well denies any chest pain, shortness of breath, abd. pain, n/v ID consulted, Echo obtained, CT abd/pelvis obtained - c/w diverticulitis blood cultx from 08/24 so far negative Contacted [facility] ID for final recommendations - waiting to hear back -> Discussed this also w/ Aaliyah - SUAD Review of Systems 2 Review of Systems: All systems reviewed & are unremarkable except as noted in Subjective Physical Exam Physical Exam: GENERAL: WD/WN elderly M in NAD, + chronically ill appearing HEENT: NC/AT, EOMI NECK : Supple CHEST : Decreased breath sounds, no wheezing HEART : RRR, no obvious murmurs ABDOMEN: soft, no distention, nontender, + bowel sounds EXTREMITIES : No LE swelling/tenderness, chronic left shoulder tenderness w/ chronic "lump" (lump is nontender) NEUROLOGIC : awake and alert, able to answer simple questions appropriately, no facial asymmetry, slightly hard of hearing,moves extremities SKIN: warm, dry Results & Data Results & Data Vital Signs (Past 12 Hours) Vital Signs Temp Pulse Pulse Resp BP BP Pulse Ox 08/28/23 07:14 36.8 C 86 15 126/71 93 08/28/23 06:58 72 08/28/23 03:17 36.5 C 69 18 135/72 96 08/27/23 23:05 86 O2 Del Method 08/28/23 07:14 Room Air 08/28/23 06:58 08/28/23 03:17 Room Air 08/27/23 23:05 Laboratory Results 08/28/23 08/28/23 08/27/23 Range/Units 07:58 05:34 20:22 WBC 9.72 (4.8-10.8) K/ul RBC 3.80 L (4.70-6.10) M/uL Hgb 10.4 L (14.0-18.0) g/dl Hct 33.0 L (42.0-52.0) % MCV 86.8 (80.0-100.0) fL MCH 27.4 (25.0-34.0) pg MCHC 31.5 L (32.0-36.0) g/dL RDW Std Deviation 55.5 H (36.4-46.3) fL RDW Coeff of Coty 17.4 H (11.5-14.5) % Plt Count 261 (130-400) K/uL MPV 9.6 (9.4-12.4) fL Sodium 137 (136-145) mmol/L Potassium 4.4 (3.5-5.1) mmol/L Chloride 105 (98-107) mmol/L Carbon Dioxide 28 (21-32) mmol/L Anion Gap 4 (3-11) BUN 24 H (6-23) mg/dl Creatinine 0.63 (0.6-1.4) mg/dl Est Cr Clr Drug Dosing 74.3 ml/min Est GFR ( Amer) 101.3 ml/min Est GFR (Non-Af Amer) 87.4 ml/min BUN/Creatinine Ratio 38.1 H (10-20) Glucose 144 H (70-99(Fasting)) mg/dl POC Glucose 141 H 302 H* (70-99) mg/dl Calcium 7.4 L (8.6-10.3) mg/dl Phosphorus 2.4 L (2.5-4.9) mg/dl Magnesium 1.7 (1.7-2.4) mg/dl Total Bilirubin 0.3 (0.2-1.0) mg/dl AST 13 (13-39) U/L ALT 3 L (7-52) U/L Alkaline Phosphatase 50 (34-104) U/L Total Protein 4.7 L (6.0-8.3) gm/dl Albumin 2.1 L (3.4-5.0) gm/dl Globulin 2.6 (2.5-4.0) gm/dl Albumin/Globulin Ratio 0.8 L (0.9-2) 08/27/23 08/27/23 Range/Units 17:27 11:38 WBC (4.8-10.8) K/ul RBC (4.70-6.10) M/uL Hgb (14.0-18.0) g/dl Hct (42.0-52.0) % MCV (80.0-100.0) fL MCH (25.0-34.0) pg MCHC (32.0-36.0) g/dL RDW Std Deviation (36.4-46.3) fL RDW Coeff of Coty (11.5-14.5) % Plt Count (130-400) K/uL MPV (9.4-12.4) fL Sodium (136-145) mmol/L Potassium (3.5-5.1) mmol/L Chloride (98-107) mmol/L Carbon Dioxide (21-32) mmol/L Anion Gap (3-11) BUN (6-23) mg/dl Creatinine (0.6-1.4) mg/dl Est Cr Clr Drug Dosing ml/min Est GFR ( Amer) ml/min Est GFR (Non-Af Amer) ml/min BUN/Creatinine Ratio (10-20) Glucose (70-99(Fasting)) mg/dl POC Glucose 343 H* 306 H* (70-99) mg/dl Calcium (8.6-10.3) mg/dl Phosphorus (2.5-4.9) mg/dl Magnesium (1.7-2.4) mg/dl Total Bilirubin (0.2-1.0) mg/dl AST (13-39) U/L ALT (7-52) U/L Alkaline Phosphatase (34-104) U/L Total Protein (6.0-8.3) gm/dl Albumin (3.4-5.0) gm/dl Globulin (2.5-4.0) gm/dl Albumin/Globulin Ratio (0.9-2) Medications Administered Current Inpatient Medications Acetaminophen (Acetaminophen 325 Mg Tab) 650 mg PO QID PRN PRN Reason: pain/fever Stop: 09/20/23 00:12 Last Admin: 08/26/23 07:38 Dose: 650 mg Aspirin (Aspirin 81 Mg Ectab) 81 mg PO [facility] Stop: 09/20/23 08:59 Last Admin: 08/28/23 09:33 Dose: 81 mg Atorvastatin Calcium (Atorvastatin 40 Mg Tab) 80 mg PO [facility] Stop: 09/20/23 08:59 Last Admin: 08/28/23 09:33 Dose: 80 mg Dextrose (Dextrose 50% 50 Ml Syringe) 25 - 50 ml IV UD PRN; Protocol PRN Reason: Hypoglycemia Protocol Stop: 09/20/23 00:12 Enoxaparin Sodium (Enoxaparin Inj 30 Mg/0.3 Ml Syr) 30 mg SQ QAM [facility] Stop: 09/20/23 08:59 Last Admin: 08/28/23 09:32 Dose: 30 mg Finasteride (Finasteride 5 Mg Tab) 5 mg PO QAM [facility] Stop: 09/20/23 08:59 Last Admin: 08/28/23 09:33 Dose: 5 mg Glucagon (Glucagon For Inj 1 Mg Vial) 1 mg SQ UD PRN; Protocol PRN Reason: Hypoglycemia Protocol Stop: 09/20/23 00:12 Glucose (Glucose 40% Gel 15 Gm Tube) 15 - 30 gm PO UD PRN; Protocol PRN Reason: Hypoglycemia Protocol Stop: 09/20/23 00:12 Glucose (Glucose 10 Tab/Tube) 4 - 8 tab PO UD PRN; Protocol PRN Reason: Hypoglycemia Treatment Stop: 09/20/23 00:12 Guaifenesin (Guaifenesin 600 Mg Tabcr) 600 mg PO Q12 [facility] Stop: 09/21/23 13:04 Last Admin: 08/28/23 09:32 Dose: 600 mg Promethazine HCl 6.25 mg/ (Sodium Chloride) 50.25 mls @ 201 mls/hr IV Q6H PRN PRN Reason: Nausea And Vomiting Stop: 09/20/23 00:12 Pantoprazole Sodium 40 mg/ (Syringe) 10 mls @ 5 mls/min IV BID [facility] Stop: 09/21/23 20:59 Last Admin: 08/28/23 09:32 Dose: 5 mls/min Cefazolin Sodium (Ancef 2000mg) 2,000 mg in 15 mls @ 3.75 mls/min IV Q8H [facility] Stop: 09/07/23 17:44 Last Admin: 08/28/23 09:35 Dose: 3.75 mls/min Magnesium Sulfate/Dextrose (Magnesium Sulfate / D5w) 1 gm in 100 mls @ 50 mls/hr IV ONE ONE Stop: 08/28/23 11:24 Last Admin: 08/28/23 09:48 Dose: 50 mls/hr Insulin Aspart (Insulin Aspart Per Unit Charge) 0 units SC ACHS [facility] Stop: 09/21/23 17:29 Last Admin: 08/28/23 09:34 Dose: 5 units Insulin Glargine (Lantus Per Unit Charge) 5 units SQ BID [facility] Stop: 09/20/23 08:59 Last Admin: 08/28/23 09:34 Dose: 5 units Menthol (Cough Drop (Sugar Free) Bud 24 Bud/1 Box) 1 bud BUCCAL Q8H PRN PRN Reason: Sore Throat Stop: 09/20/23 18:02 Metronidazole (Metronidazole 500 Mg Tab) 500 mg PO TID [facility]; Protocol Stop: 08/29/23 13:59 Last Admin: 08/28/23 09:33 Dose: 500 mg Miscellaneous (Carbohydrates For Hypoglycemia ) 15 - 30 gm PO UD PRN PRN Reason: Hypoglycemia Protocol Stop: 09/20/23 00:12 Nystatin (Nystatin Susp 500,000 U/5 Ml Udc) 5 ml PO QID [facility] Stop: 08/31/23 12:59 Last Admin: 08/28/23 09:33 Dose: 5 ml Potassium Phosphate (Pot Phosphate Monobasic W/ Sod Tab) 1 tab PO QID [facility] Stop: 09/24/23 16:59 Last Admin: 08/28/23 09:32 Dose: 1 tab Prednisone (Prednisone 5 Mg Tab) 5 mg PO QAM [facility] Stop: 09/21/23 08:59 Last Admin: 08/28/23 09:32 Dose: 5 mg Psyllium Hydrophilic Mucilloid (Psyllium Or Guar Gum Fiber 4gm Packet) 4 gm PO DAILY [facility] Stop: 09/20/23 08:59 Last Admin: 08/28/23 09:33 Dose: 4 gm Sotalol HCl (Sotalol Hcl 80 Mg Tab) 40 mg PO BID [facility] Stop: 09/20/23 08:59 Last Admin: 08/28/23 09:32 Dose: 40 mg
--- NOTE | 2023-08-28 18:45 | Communication Note ---
Date of Service: August 28, [address] abd / TTE w/o obvious source for bacteremia. Can complete 2 weeks total Abx after cleared blood culture. Can transition to Keflex 500mg PO QID with end date 09/08/23 Discussed and agreed upon with attending physician Dr. Bruce.
[2023-08-29 07:36] LABS: Hematocrit (blood only) 30.2 % (42.0-52.0); Hemoglobin 9.7 g/dl (14.0-18.0); Mean Corpuscular Hemoglobin 27.6 pg (25.0-34.0); Mean Corpuscular Hgb Conc 32.1 g/dL (32.0-36.0); Mean Corpuscular Volume 85.8 fL (80.0-100.0); Platelet Count 288 K/uL (130-400); RDW Coefficient of Variation 18.1 % (11.5-14.5); RDW Standard Deviation 57.2 fL (36.4-46.3); Red Blood Count 3.52 M/uL (4.70-6.10); White Blood Count 8.92 K/ul (4.8-10.8)
[2023-08-29 07:47] LABS: BUN Creatinine Ratio 48.2 (10-20); Calcium 7.2 mg/dl (8.6-10.3); Creatinine Clr Calc Pharmacy 83.6 ml/min; Est GFR (African American) 106.3 ml/min; Est GFR (Non-African American) 91.7 ml/min; Magnesium 1.9 mg/dl (1.7-2.4); Phosphorus 2.3 mg/dl (2.5-4.9); Potassium 4.1 mmol/L (3.5-5.1)
--- NOTE | 2023-08-29 14:48 | Hospitalist Progress Note ---
Date of Service August 29, 2023 Assessment & Plan (1) Bacteremia: (2) Dysphagia: (3) Generalized weakness: (4) Paroxysmal atrial fibrillation: Plan Bacteremia with Klebsiella and E. coli - Bacteremia cleared from 08/24. - Both bacteria pansensitive - ? source. Urine culture negative, CT chest with subtle ground glass opacities within the right upper lobe suggestive of a mild infectious process but no consolidation. CT A/P with possible cecal/sigmoid diverticulitis but no s ymptoms. - seen by ID- continue Ancef in-house. Change to p.o. Keflex at discharge to complete 2-week course per ID from 08/24, end date 09/08/23. Spoke with ID today regarding flagyl which was added yesterday- can continue flagyl until then. TIA ruled out with negative imaging. Likely from bacteremia Dysphagia- seen by GI. Patient and family did not want EGD or feeding tubes. Continue PPI in case there is a reflux component to it. Chronic diastolic heart failure (EF 65 to 70%, TTE 2022)- Euvolemic. H/o CAD status post stent DM-2- hold home tradjenta. continue lantus, humalog SSI. Adjust as indicated. PAF- on sotalol. per HPI, not on anticoagulation due to risks DVT ppx- sc lovenox Dispo- Stable [facility]. Insurance auth pending Time spent- approx 35 mins Admission and Anticipated Discharge Date Admission Date: August 22, 2023 Subjective patient was seen examined at bedside. he feels fine and ready to go to [facility]. Denies any ongoing issues. No fever, chills, chest pain or shortness problems. normal appetite. States no issues with voiding or bowels. Review of Systems Review of Systems: All systems reviewed & are unremarkable except as noted in Subjective Physical Exam Physical Exam: General: Lying comfortably in bed, not in distress, on room air HEENT: EOMI, DAVID, MMM Chest: Clear breath sounds bilaterally, no wheezes or crackles CVS: Regular rate and rhythm, normal heart sounds, no murmur Abdomen: Soft, non tender, not distended, normal bowel sounds Neuro: Awake, alert, oriented, conversing well, non focal Results & Data Results & Data Vital Signs (Past 12 Hours) Vital Signs Temp Pulse Pulse Resp BP BP Pulse Ox 08/29/23 11:01 36.6 C 93 H 15 140/65 95 08/29/23 07:28 74 08/29/23 07:11 36.7 C 76 14 147/76 H 93 08/29/23 04:34 124/58 L 08/29/23 03:57 37.1 C 81 20 88/51 L 94 O2 Del Method 08/29/23 11:01 Room Air 08/29/23 07:28 08/29/23 07:11 Room Air 08/29/23 04:34 08/29/23 03:57 Room Air Laboratory Results Short CBC 08/29/23 Range/Units 06:44 WBC 8.92 (4.8-10.8) K/ul Hgb 9.7 L (14.0-18.0) g/dl Hct 30.2 L (42.0-52.0) % Plt Count 288 (130-400) K/uL BMP 08/29/23 06:44 Sodium 138 Potassium 4.1 Chloride 105 Carbon Dioxide 29 BUN 27 H Creatinine 0.56 L Glucose 149 H Calcium 7.2 L
[2023-08-29 21:00] LABS: Adenovirus F 40/41 PCR Not Detected (NotDetected); Astrovirus PCR Not Detected (NotDetected); Campylobacter PCR Not Detected (NotDetected); Cryptosporidium PCR Not Detected (NotDetected); Cyclospora cayetanensis PCR Not Detected (NotDetected); Entamoeba histolytica PCR Not Detected (NotDetected); Enteroaggregative E.coli(EAEC) Not Detected (NotDetected); Enteropathogenic E.coli (EPEC) Not Detected (NotDetected); Enterotoxigenic E.coli (ETEC) Not Detected (NotDetected); Giardia lamblia PCR Not Detected (NotDetected); Norovirus GI/GII PCR Not Detected (NotDetected); Plesiomonas shigelloides PCR Not Detected (NotDetected); Rotavirus A PCR Not Detected (NotDetected); Salmonella PCR Not Detected (NotDetected); Sapovirus PCR Not Detected (NotDetected); Shiga-like Toxin E.coli (STEC) Not Detected (NotDetected); Shigella/Enteroinvasive E.coli Not Detected (NotDetected); Vibrio cholerae PCR Not Detected (NotDetected); Vibrio species PCR Not Detected (NotDetected); Yersinia enterocolitica PCR Not Detected (NotDetected)
[2023-08-29] MEDS: metroNIDAZOLE 500 MG TAB PO SCH (21:15)
--- NOTE | 2023-08-30 13:05 | Discharge Summary ---
Date of Service August 30, 2023 Admission HPI Per Admitting Provider History obtained from patient, family, and records. Medical history significant for chronic diastolic heart failure (EF 65 to 70%, TTE 2022), CAD status post stent, valvular heart disease (mild AR, trace TR), A- fib off anticoagulation secondary to risks, hypertension, hyperlipidemia, DM 2 on oral medications, inflammatory arthritis on chronic steroid Rx, BPH, monoclonal gammopathy, past tobacco abuse. Last confinement January 2023 for mechanical fall. Patient subsequent discharged home. Patient noted by family to be increasingly weak since last week. Sore throat symptoms. Not sure about sick contacts. Patient seen at PCPs office last 08/14. Strep screen negative. Fluconazole 3-week course prescribed for oral thrush. Patient's son noted transient left facial weakness at home around lunchtime. Patient denies headache, chest pain, SOB, abdominal pain. Unquantified weight loss at home. Patient brought to the ER for evaluation. Left facial droop currently resolved. 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 alone Admission Exam Per Admitting Provider GENERAL: Slightly uncomfortable, chronically ill, slightly hard of hearing, no respiratory distress SKIN: Normal color, warm HEENT: [place] palpebral conjunctivae, no ptosis, dry buccal mucosa NECK : Supple, no tenderness CHEST : Decreased breath sounds, no tenderness HEART : RRR, no obvious murmurs ABDOMEN: no distention, nontender EXTREMITIES : No LE swelling/tenderness, chronic left shoulder tenderness, no other conspicuous deformities noted NEUROLOGIC : Coherent, no facial asymmetry, slightly hard of hearing, MMTS BUE/BLE 3/5, gait and stance not assessed Principal Diagnosis Bacteremia with E coli/Klebsiella Discharge Exam General: Lying comfortably in bed, not in distress, on room air HEENT: EOMI, DAVID, MMM Chest: Clear breath sounds bilaterally, no wheezes or crackles CVS: Regular rate and rhythm, normal heart sounds, no murmur Abdomen: Soft, non tender, not distended, normal bowel sounds Neuro: Awake, alert, oriented, conversing well, non focal Discharge Data Allergies Allergy/AdvReac Type Severity Reaction Status Date / Time atenolol Allergy Unknown Patient Verified 08/20/23 22:28 told "never to take again" candesartan [From Atacand] AdvReac Intermediate Hyperkalemi Verified 08/20/23 22:28 a lisinopril AdvReac Intermediate Increased Verified 08/20/23 22:28 creatinine, hypotension Consultations 08/20/23 20:30 ED Decision to Admit Stat 08/22/23 09:59 Consult Infectious Diseases Routine 08/22/23 13:13 Consult Gastroenterology Routine Ordered Studies 08/20/23 18:40 CT head/brain wo con Stat 08/21/23 00:13 MR brain wo con Urgent 08/21/23 00:14 MR angio head wo con Urgent 08/21/23 11:08 CT chest diagnostic wo con Urgent 08/22/23 11:00 FL video swallow Routine 08/24/23 17:48 CT abd pelvis IV con only Routine Laboratory Results WBC 8.92 K/ul (4.8-10.8) 08/29/23 06:44 RBC 3.52 M/uL (4.70-6.10) L 08/29/23 06:44 Hgb 9.7 g/dl (14.0-18.0) L 08/29/23 06:44 Hct 30.2 % (42.0-52.0) L 08/29/23 06:44 MCV 85.8 fL (80.0-100.0) 08/29/23 06:44 MCH 27.6 pg (25.0-34.0) 08/29/23 06:44 MCHC 32.1 g/dL (32.0-36.0) 08/29/23 06:44 RDW Std Deviation 57.2 fL (36.4-46.3) H 08/29/23 06:44 RDW Coeff of Coty 18.1 % (11.5-14.5) H 08/29/23 06:44 Plt Count 288 K/uL (130-400) 08/29/23 06:44 MPV 10.0 fL (9.4-12.4) 08/29/23 06:44 Immature Gran % (Auto) 1.7 % 08/23/23 05:29 Neut % (Auto) 76.0 % 08/23/23 05:29 Lymph % (Auto) 10.2 % 08/23/23 05:29 Long % (Auto) 11.4 % 08/23/23 05:29 Eos % (Auto) 0.5 % 08/23/23 05:29 Baso % (Auto) 0.2 % 08/23/23 05:29 Neut # (Auto) 6.20 K/uL (1.40-6.50) 08/23/23 05:29 Lymph # (Auto) 0.83 K/uL (1.20-3.40) L 08/23/23 05:29 Long # (Auto) 0.93 K/uL (0.11-0.59) H 08/23/23 05:29 Eos # (Auto) 0.04 K/uL (0.00-0.50) 08/23/23 05:29 Baso # (Auto) 0.02 K/uL (0.00-0.20) 08/23/23 05:29 Immature Gran # (Auto) 0.14 K/uL (0.01-0.20) 08/23/23 05:29 Absolute Nucleated RBC Cancelled 08/25/23 06:11 Nucleated RBC % (auto) Cancelled 08/25/23 06:11 Toxic Vacuolation 1+ 08/22/23 06:31 Platelet Estimate Cancelled 08/25/23 06:11 Polychromasia 1+ 08/22/23 06:31 Tear Drop Cells 1+ 08/22/23 06:31 Echinocytes 1+ 08/22/23 06:31 PT 10.8 Seconds (9.0-12.0) 08/20/23 18:22 INR 1.0 (0.9-1.1) 08/20/23 18:22 Sodium 138 mmol/L (136-145) 08/29/23 06:44 Potassium 4.1 mmol/L (3.5-5.1) 08/29/23 06:44 Chloride 105 mmol/L (98-107) 08/29/23 06:44 Carbon Dioxide 29 mmol/L (21-32) 08/29/23 06:44 Anion Gap 4 (3-11) 08/29/23 06:44 BUN 27 mg/dl (6-23) H 08/29/23 06:44 Creatinine 0.56 mg/dl (0.6-1.4) L 08/29/23 06:44 Est Cr Clr Drug Dosing 83.6 ml/min 08/29/23 06:44 Est GFR ( Amer) 106.3 ml/min 08/29/23 06:44 Est GFR (Non-Af Amer) 91.7 ml/min 08/29/23 06:44 BUN/Creatinine Ratio 48.2 (10-20) H 08/29/23 06:44 Glucose 149 mg/dl (70-99(Fasting)) H 08/29/23 06:44 POC Glucose 253 mg/dl (70-99) H 08/30/23 11:36 Estimat Average Glucose 278 mg/dl 08/21/23 04:31 Hemoglobin A1c 11.3 % (4.5-5.6) H 08/21/23 04:31 Lactate 1.8 mmol/L (0.4-2.0) 08/20/23 19:57 Calcium 7.2 mg/dl (8.6-10.3) L 08/29/23 06:44 Phosphorus 2.3 mg/dl (2.5-4.9) L 08/29/23 06:44 Magnesium 1.9 mg/dl (1.7-2.4) 08/29/23 06:44 Total Bilirubin 0.3 mg/dl (0.2-1.0) 08/28/23 05:34 AST 13 U/L (13-39) 08/28/23 05:34 ALT 3 U/L (7-52) L 08/28/23 05:34 Alkaline Phosphatase 50 U/L (34-104) 08/28/23 05:34 Troponin I High Sens 32.2 pg/ml (0-20) H 08/21/23 04:31 Total Protein 4.7 gm/dl (6.0-8.3) L 08/28/23 05:34 Albumin 2.1 gm/dl (3.4-5.0) L 08/28/23 05:34 Globulin 2.6 gm/dl (2.5-4.0) 08/28/23 05:34 Albumin/Globulin Ratio 0.8 (0.9-2) L 08/28/23 05:34 Triglycerides 432 mg/dl (0-150) H 08/21/23 04:31 Cholesterol 129 mg/dl (0-200) 08/21/23 04:31 VLDL Cholesterol, Calc TNP 08/21/23 04:31 HDL Cholesterol 31 mg/dl 08/21/23 04:31 Cholesterol/HDL Ratio 4.2 (0-5) 08/21/23 04:31 TSH 4.694 uIu/ml (0.300-4.500) H 08/20/23 18:22 Free T4 1.30 ng/dl (0.61-1.60) 08/20/23 18:22 Urine Color Yellow 08/22/23 05:04 Urine Appearance Cloudy (Clear) A 08/22/23 05:04 Urine pH 5.0 (4.5-7.5) 08/22/23 05:04 Ur Specific [place] 1.029 (1.000-1.030) 08/22/23 05:04 Urine Protein 1+ (Negative) H 08/22/23 05:04 Urine Glucose (UA) 3+ (Negative) H 08/22/23 05:04 Urine Ketones Negative (Negative) 08/22/23 05:04 Urine Blood Negative (Negative) 08/22/23 05:04 Urine Nitrite Negative (Negative) 08/22/23 05:04 Urine Bilirubin Negative (Negative) 08/22/23 05:04 Urine Urobilinogen Negative (Negative) 08/22/23 05:04 Ur Leukocyte Esterase Negative (Negative) 08/22/23 05:04 Urine WBC (Auto) 0-5 /hpf (0-5) 08/22/23 05:04 Urine RBC (Auto) 0-2 /hpf (0-2) 08/22/23 05:04 U Hyaline Cast (Auto) 3-5 /lpf (0-2) H 08/22/23 05:04 U Epithel Cells (Auto) 0-2 /hpf (0-2) 08/22/23 05:04 Urine Bacteria (Auto) None Seen (None Seen) 08/22/23 05:04 Nasal Screen MRSA (PCR) Negative (Negative) 08/24/23 Unknown Stl C. cayetanensis PCR Not Detected (NotDetected) 08/29/23 19:18 Stool Rotavirus A PCR Not Detected (NotDetected) 08/29/23 19:18 Stl Adenov F 40/41 PCR Not Detected (NotDetected) 08/29/23 19:18 Stool Astrovirus (PCR) Not Detected (NotDetected) 08/29/23 19:18 Stool Campylobacter PCR Not Detected (NotDetected) 08/29/23 19:18 Stool Cryptosporidium PCR Not Detected (NotDetected) 08/29/23 19:18 Stl E.coli Shiga Tox PCR Not Detected (NotDetected) 08/29/23 19:18 Stl Enterotoxigenic E PCR Not Detected (NotDetected) 08/29/23 19:18 Stool EPEC (PCR) Not Detected (NotDetected) 08/29/23 19:18 Stool EAEC (PCR) Not Detected (NotDetected) 08/29/23 19:18 Stl E. histolytica PCR Not Detected (NotDetected) 08/29/23 19:18 Stool Giardia Lamblia PCR Not Detected (NotDetected) 08/29/23 19:18 Stool Salmonella PCR Not Detected (NotDetected) 08/29/23 19:18 Stool Sapovirus (PCR) Not Detected (NotDetected) 08/29/23 19:18 Stl P. shigelloides PCR Not Detected (NotDetected) 08/29/23 19:18 Stl Shigella/EIEC PCR Not Detected (NotDetected) 08/29/23 19:18 St Y.enterocolitica PCR Not Detected (NotDetected) 08/29/23 19:18 Stool Vibrio (PCR) Not Detected (NotDetected) 08/29/23 19:18 Stl Vibrio cholerae PCR Not Detected (NotDetected) 08/29/23 19:18 Stl Norovirus GI/GII PCR Not Detected (NotDetected) 08/29/23 19:18 Random Vancomycin 20.9 mcg/ml (10-20) H 08/24/23 13:53 Adenovirus (PCR) Not Detected (NotDetected) 08/20/23 18:33 B. pertussis DNA (PCR) Not Detected (NotDetected) 08/20/23 18:33 B.parapertussis DNA PCR Not Detected (NotDetected) 08/20/23 18:33 Lyme Disease Screen Negative (Negative) 08/21/23 04:31 C. pneumoniae DNA (PCR) Not Detected (NotDetected) 08/20/23 18:33 Coronavirus OC43 (PCR) Not Detected (NotDetected) 08/20/23 18:33 Coronavirus HKU1 (PCR) Not Detected (NotDetected) 08/20/23 18:33 Coronavirus 229E (PCR) Not Detected (NotDetected) 08/20/23 18:33 SARS-CoV-2 (PCR) NEGATIVE (Negative) 08/21/23 Unknown Coronavirus NL63 (PCR) Not Detected (NotDetected) 08/20/23 18:33 Enterobacterales (PCR) DETECTED (NotDetected) A 08/21/23 12:02 E. coli (PCR) DETECTED (NotDetected) A 08/21/23 12:02 Human Metapneumovir PCR Not Detected (NotDetected) 08/20/23 18:33 Influenza Type A (PCR) Negative (Neg) 08/21/23 Unknown Influenza Type B (PCR) Negative (Neg) 08/21/23 Unknown K. pneumoniae group (PCR) DETECTED (NotDetected) A 08/21/23 12:02 M. pneumoniae (PCR) Not Detected (NotDetected) 08/20/23 18:33 Parainfluenza 1 (PCR) Not Detected (NotDetected) 08/20/23 18:33 Parainfluenza 2 (PCR) Not Detected (NotDetected) 08/20/23 18:33 Parainfluenza 3 (PCR) Not Detected (NotDetected) 08/20/23 18:33 Parainfluenza 4 (PCR) Not Detected (NotDetected) 08/20/23 18:33 RSV (RT-PCR) Negative (Neg) 08/21/23 Unknown RSV (PCR) Not Detected (NotDetected) 08/20/23 18:33 Entero/Rhino (PCR) Not Detected (NotDetected) 08/20/23 18:33 mcr-1 Colistin Res Gene PCR Not Detected (NotDetected) 08/21/23 12:02 Group A Strep (PCR) NOT DETECTED (NotDetected) 08/21/23 Unknown blaIMP Car res Gene PCR Not Detected (NotDetected) 08/21/23 12:02 KPC-Carbap Res Gene PCR Not Detected (NotDetected) 08/21/23 12:02 blaNDM Car Res Gene PCR Not Detected (NotDetected) 08/21/23 12:02 OXA-48 Carbapenem Resis Gene (PCR) Not Detected (NotDetected) 08/21/23 12:02 blaVIM Car Res Gene PCR Not Detected (NotDetected) 08/21/23 12:02 CTX-M Gene Resistance (PCR) Not Detected (NotDetected) 08/21/23 12:02 Bld Cult ID Panel PCR See PCR Comment (NotDetected) 08/21/23 12:[address] 08/20/23 18:40 Exam(s): CT HEAD Without Contrast EXAM: CT Head Without Intravenous Contrast CLINICAL HISTORY: Reason for exam: weakness. TECHNIQUE: Axial computed tomography images of the head/brain without intravenous contrast. CTDI is 37.08 mGy and DLP is 547.75 mGy-cm. Automated exposure control was utilized for the study. A dose lowering technique was utilized adhering to the principles of ALARA. COMPARISON: 02/26/23 FINDINGS: Brain: There is generalized parenchymal volume loss with periventricular and deep cerebral white matter hypoattenuation, compatible with chronic small vessel ischemic change. Fields-white matter differentiation is maintained. There is no hemorrhage, mass effect, parenchymal edema, or midline shift. Ventricles: Unremarkable. No hydrocephalus. Bones/joints: Calvarium is intact. No acute fracture. Soft tissues: Unremarkable. Vasculature: Intracranial atherosclerosis. Sinuses: Unremarkable as visualized. Mastoid air cells: Unremarkable as visualized. No mastoid effusion. Orbits: Bilateral lens replacements. IMPRESSION: No acute intracranial process. Electronically signed by: Andrea Boateng M.D. 08/20/23 20:05 PM Chest X-Ray 08/20/23 18:41 XR chest 1V portable HISTORY: weakness COMPARISON: Chest 03/01/2023. FINDINGS: No pneumothorax. The heart remains mildly enlarged. A large hiatus hernia is again noted. Bibasilar linear densities persist and favor subsegmental atelectasis. Otherwise, no new focal lung consolidations to suggest a pneumonia. No evidence for pulmonary edema. No acute fractures identified. Advanced degenerative changes within the shoulders. There is a 7 cm soft tissue density superior to the left acromioclavicular joint. This is indeterminate but could be due to a fluid collection at the acromioclavicular joint related to chronic rotator cuff injury. This remains unchanged. IMPRESSION: No significant change compared to the prior study. No acute process. ACT 112: Negative or not required by law. Electronically signed by: Nathan Bland M.D. 08/20/2023 7:05 PM Brain MRI 08/21/23 00:13 Exam(s): MRI HEAD Without Contrast EXAM: MR Head Without Intravenous Contrast CLINICAL HISTORY: Reason for exam: tia. TECHNIQUE: Magnetic resonance images of the head/brain without intravenous contrast in multiple planes. COMPARISON: Comparison made to prior head CT from August 20, 2023. FINDINGS: Brain: Mild nonspecific white matter changes. The flow voids of the base the brain are intact. No mass. No hemorrhage. No acute infarct. Ventricles: Moderate ventriculomegaly. Bones/joints: Unremarkable. No acute fracture. Sinuses: Chronic right maxillary, ethmoid and frontal sinusitis. No acute sinusitis. Mastoid air cells: Unremarkable as visualized. No mastoid effusion. Orbits: Bilateral lens replacements. IMPRESSION: No evidence of acute intracranial pathology. Electronically signed by: Monica Maza MD 08/21/23 03:04 AM Head MRA 08/21/23 00:14 Exam(s): MRA HEAD Without Contrast EXAM: MR Angiography Head Without Intravenous Contrast CLINICAL HISTORY: Reason for exam: tia. TECHNIQUE: Magnetic resonance angiography images of the head without intravenous contrast. COMPARISON: No relevant prior studies available. FINDINGS: Right internal carotid artery: No acute findings. Intracranial segment is patent with no significant stenosis. No aneurysm. Right anterior cerebral artery: Unremarkable. No occlusion or significant stenosis. No aneurysm. Right middle cerebral artery: Unremarkable. No occlusion or significant stenosis. No aneurysm. Right posterior cerebral artery: Unremarkable. No occlusion or significant stenosis. No aneurysm. Right vertebral artery: Unremarkable as visualized. Left internal carotid artery: No acute findings. Intracranial segment is patent with no significant stenosis. No aneurysm. Left anterior cerebral artery: Unremarkable. No occlusion or significant stenosis. No aneurysm. Left middle cerebral artery: Unremarkable. No occlusion or significant stenosis. No aneurysm. Left posterior cerebral artery: Unremarkable. No occlusion or significant stenosis. No aneurysm. Left vertebral artery: Unremarkable as visualized. Basilar artery: Unremarkable. No occlusion or significant stenosis. No aneurysm. IMPRESSION: Negative MRA of the brain. Electronically signed by: Monica Maza MD 08/21/23 02:[address] 08/21/23 11:08 CT OF THE CHEST WITHOUT IV CONTRAST CLINICAL HISTORY: Fever. Evaluate for pneumonia. COMPARISON STUDY: Chest CT February 26, 2023. Chest radiograph August 20, 2023. CT DOSE: 291.11 mGy.cm TECHNIQUE: Axial images of the chest were obtained without IV contrast. Images were reviewed in the axial, sagittal, and coronal planes. IV contrast was not administered for this examination. Automated exposure control was utilized for the study. A dose lowering technique was utilized adhering to the principles of ALARA. FINDINGS: No enlarged axillary, mediastinal or hilar lymph nodes are present. There is cardiomegaly and moderate coronary artery calcification. No pericardial effusion is present. There is a trace left pleural effusion. No pneumothorax. Subpleural ground glass opacities represent atelectasis. There are subtle groundglass opacities within the right upper lobe, new since chest CT of February 26, 2023. No confluent consolidation is present. Severe degenerative changes of the bilateral shoulders are noted. A fluid collection along the superior aspect of the distal left clavicle measures at least 5 cm. This is partially imaged on this exam and corresponds to the finding on radiograph of August 20, 2023. This is indeterminate but may be related to chronic rotator cuff tear. IMPRESSION: 1. Subtle ground glass opacities within the right upper lobe suggestive of a mild infectious process. No consolidation. 2. Trace left pleural effusion. No pneumothorax. 3. No thoracic lymphadenopathy. ACT 112: Negative or not required by law. Electronically signed by: Marcial Quintero M.D. 08/21/2023 1:36 PM Videofluoroscopic Swallow 08/22/23 11:00 FL video swallow CLINICAL HISTORY: assess for aspiration TECHNIQUE: Video fluoroscopy of the pharyngeal region was performed as barium mixtures of varying consistencies were administered to the patient by the speech pathologist. A formal esophagram was not performed. Comparison: None available at the time of this dictation. FINDINGS: Total fluoroscopy time: 1.03 minutes. Radiation dose: 4.6 mGy. The patient swallowed the different barium consistencies without difficulty. Penetration was seen with pudding consistency barium due to esophageal material reentering the pharyngeal cavity. Retention of ingested material in the esophagus is seen with no significant esophageal clearance during the course of this exam. IMPRESSION: 1. Prominent esophageal retention. 2. No evidence of aspiration. Please see the speech pathology report for further details. ACT 112: Negative or not required by law. Electronically signed by: Charlie Daniel M.D. 08/22/2023 2:14 PM Abdomen/Pelvis CT 08/24/23 17:48 Exam(s): CT ABDOMEN + PELVIS With Contrast IV Amt: 90 mls optiray 320 EXAM: CT Abdomen and Pelvis With Intravenous Contrast CLINICAL HISTORY: Reason for exam: bacteremia, r/o abscess/infectious source. TECHNIQUE: Axial computed tomography images of the abdomen and pelvis with intravenous contrast. CTDI is 22.86 mGy and DLP is 1103.98 mGy-cm. Automated exposure control was utilized for the study. A dose lowering technique was utilized adhering to the principles of ALARA. CONTRAST: Patient received 90 mls optiray 320 of IV contrast COMPARISON: 07/05/2022. FINDINGS: Lung bases: Unchanged large left-sided hiatal hernia containing slightly thick-walled stomach with an air-fluid level. Superior aspect of a hiatal hernia is excluded. Small bilateral pleural effusions with associated compressive atelectasis at the right lung base. Cardiomegaly. Small amount of pericardial fluid. ABDOMEN: Liver: Unremarkable. No mass. Gallbladder and bile ducts: Unremarkable. No calcified stones. No ductal dilation. Pancreas: Atrophic. No mass. No ductal dilation. Spleen: Unremarkable. No splenomegaly. Adrenals: Unremarkable. No mass. Kidneys and ureters: No obstructive uropathy. No obstructing renal or ureteral calculi. No hydronephrosis or hydroureter. Stomach and bowel: Gastric containing hiatal hernia. Unchanged large 3. 6 cm gas filled duodenal diverticulum adjacent to the pancreatic head. Small bowel is otherwise unremarkable. Unchanged severe diffuse colonic diverticulosis from the right colon to the mid sigmoid colon. Mild cecal and proximal sigmoid colon wall thickening suggesting mild acute diverticulitis. No free intraperitoneal gas or focal collection. Trace pelvic free fluid with minimal presacral infiltration. Distal rectosigmoid colon is unremarkable. PELVIS: Appendix: Appendix not identified. No secondary evidence for appendicitis. Bladder: Unremarkable. No mass. Reproductive: Unremarkable as visualized. ABDOMEN and PELVIS: Intraperitoneal space: No free air. No free fluid. Bones/joints: No acute fracture. Degenerative changes of the spine. Soft tissues: Unremarkable. Vasculature: Atherosclerotic vascular calcifications. No abdominal aortic aneurysm. Lymph nodes: Unremarkable. No enlarged lymph nodes. IMPRESSION: Redemonstrated abundant colonic diverticuli with suspected cecal and proximal sigmoid: Diverticulitis. No free fluid or free intrapleural gas. Trace free fluid in the pelvis with minimal presacral infiltration. Redemonstrated large left-sided hiatal hernia. Development of small bilateral pleural effusions with associated atelectasis. Otherwise no change. Electronically signed by: Jeison Pierce M.D. 08/24/23 23:54 PM Hospital Course (1) Bacteremia: (2) Dysphagia: (3) Generalized weakness: (4) Paroxysmal atrial fibrillation: Plan Bacteremia with Klebsiella and E. coli - Bacteremia cleared from 08/24. - Both bacteria pansensitive - ? source. Urine culture negative, CT chest with subtle ground glass opacities within the right upper lobe suggestive of a mild infectious process but no consolidation. CT A/P with possible cecal/sigmoid diverticulitis but no symptoms. - seen by ID- s/p Ancef in-house and changed to p.o. Keflex 500 mg q 6hr at discharge to complete 2-week course per ID from 08/24, end date 09/08/23. Also continuing flagyl after speaking to ID given the CT findings. TIA ruled out with negative imaging. Likely from bacteremia Dysphagia- seen by GI. Patient and family did not want EGD or feeding tubes. Continuing PPI per GI recommendation in case there is a reflux component to it. Chronic diastolic heart failure (EF 65 to 70%, TTE 2022)- Resume home diuretics at discharge. H/o CAD status post stent DM-2- continue home jardiance, tradjenta. Managed with insulin inhouse PAF- on sotalol. per HPI, not on anticoagulation due to risks Oral thrush- continue nystatin swish and spit at discharge. Discontinued fluconazole. Prednisone decreased to 5 mg given the fungal infection, hyperglycemia and weakness, can continue to wean down as tolerated. Total Time Total Time Spent Total Time Spent (In Minutes): 33 Discharge Plan Discharge Items Patient Disposition: Transfer [facility] Reason For Visit: BACTEREMIA, TIA Discharge Diagnosis: Bacteremia with E coli/Klebsiella Activity: Resume your previous activity Non-emergency contact: Primary Care Provider Call non-emergency contact if: you have any medication questions, your symptoms worsen and you have a fever Follow-up/Referrals: Eldon Dowd MD [Primary Care Provider] - Diet: Low Sodium (2gm) Fluids: 1500ml (6 cups) Diet Texture: Mechanical soft (ground) Addtl Attending Provider Instructions: Continue keflex 1 tab every 6 hours until 09/08/23. Continue metron 1 tab three times daily for same duration We have decreased your prednisone to 5 mg daily given the thrush and the weakness- recommend weaning down if tolerated. Follow up with your family doctor and GI doctors Pending Studies at Discharge: No Stand-Alone Forms: My [facility] Skilled Items Patient informed of condition?: Yes DNR: No Discharge Level of Care: Skilled Communicable Disease: No Discharge Prognosis: Stable Lines: None Urinary Catheter: No Medications and DC Order Prescriptions: New metronidazole 500 mg Tablet 500 mg PO TID 10 Days Qty: 30 0RF cephalexin 500 mg capsule 500 mg PO Q6H 10 Days Qty: 40 0RF nystatin 100,000 unit/mL Suspension 5 ml PO QID 7 Days Qty: 140 0RF pantoprazole 40 mg tablet,delayed release (DR/EC) 40 mg PO DAILY Qty: 30 0RF Continued atorvastatin 80 mg Tablet 80 mg PO QAM aspirin 81 mg Tablet,Delayed Release (Dr/Ec) 81 mg PO QAM albuterol sulfate 90 mcg/actuation Aerosol Powdr Breath Activated 2 inh INHALATION UD PRN (Reason: Shortness Of Breath Or Wheezing) Rx Instructions: [id number] Centrum 18-400 mg-mcg Tablet 1 tab PO DAILY carvedilol 12.5 mg tablet 12.5 mg PO BID sotalol 80 mg tablet 40 mg PO BID terazosin 2 mg capsule 2 mg PO HS nitroglycerin 0.4 mg tablet, sublingual 0.4 mg sublingual DIRECTED MDD 3 DOSES/15 MINUTES PRN (Reason: Chest Pain) Tradjenta 5 mg tablet 5 mg PO QAM Jardiance 10 mg tablet 10 mg PO QAM coenzyme Q10 400 mg Capsule 400 mg PO DAILY acetaminophen 500 mg capsule 1,000 mg PO TID PRN (Reason: pain) Qty: 30 0RF Metamucil 1 cap PO DAILY furosemide [Lasix] 40 mg tablet 40 mg PO Q OTHER DAY Patient Comments: takes 1/2 in am and 1/2 at night Rx Instructions: Alternate with 60 mg QOD. finasteride 5 mg tablet 5 mg PO QAM furosemide 40 mg tablet 60 mg PO Q OTHER DAY Changed prednisone 5 mg tablet 5 mg PO QAM Qty: 0 0RF Discontinued fluconazole 100 mg tablet 100 mg PO BID Rx Instructions: FOR 21 DAYS Discharge Orders: Discharge Order (Routine); Ordered 08/30/23 Ordered By: Aftab Santoyo Admission Data Admit Date/Time: 08/22/23 02:05 Attending Provider: Aftab Santoyo Admit Provider: Reno Flowers Primary Care Provider: Eldon Dowd Other Providers: Reno Flowers; IRB Approved Study,Bennett; Matthew Jorgensen; Noemi Costello; Kike Acevedo I.; Luis Alfredo Dubois II; Shannon Jerez; James Ramos; Denis Reis; Peng Mcintyre; Bill Preciado; Anshul Langford; [place],[facility], [place] Other Interventions: Discharge Summary Assessment (RN) Last Done: 08/30/23 10:45
--- NOTE | 2023-08-31 12:24 | Coding Query ---
CODING QUERY To promote full compliance with coding requirements relating to patient care, provider participation is requested in all cases of invoice coder uncertainty. Please assist us with the question(s) below: Coding Question(s): Documentation in the medical record indicates BACTEREMIA from unclear source: DISCHARGE SUMMARY: Bacteremia with Klebsiella and E. coli - Bacteremia cleared from 08/24. - Both bacteria pansensitive - ? source. Urine culture negative, CT chest with subtle ground glass opacities within the right upper lobe suggestive of a mild infectious process but no consolidation. CT A/P with possible cecal/sigmoid diverticulitis but no symptoms. - seen by ID- s/p Ivanaef in-house and changed to p.o. Keflex 500 mg q 6hr at discharge to complete 2-week course per ID from 08/24, end date 09/08/23. Also continuing flagyl after speaking to ID given the CT findings. TIA ruled out with negative imaging. Likely from bacteremia NOTES PRIOR DS: Poss. RUL pna - pt started on iv zosyn + vanco *Please review patients EMR for full and complete clinical data and physician documentation* Based on your medical judgment, can you please clarify/provide in the progress notes whether Bacteremia was: oX Bacteremia meaning Sepsis due to Klebs Pneumoniae /Ecoli-unclear source o Bacteremia meaning positive blood cxs only (no active infection) o Other o Unable to Determine Based on your medical judgment, can you please clarify/provide in the progress notes whether PNA was ruled in/out: o Pna ruled in/resolved oX Pna ruled out o Other o Unable to determine Physician's Response(s): Thank you Etelvina Douglas Principal Diagnosis: "that condition established after study, to be chiefly responsible for occasioning the admission of the patient to the hospital for care." Co-Existing Principal Diagnosis: "when two or more diagnoses equally meet the criteria for principal diagnosis as determined by the circumstances of admission, diagnostic work up, and/or therapy provided, and the Alphabetic Index, Tabular List, or another coding guideline does not provide sequencing direction, any one of the diagnoses may be sequenced first." "When the physician has documented what appears to be a current diagnosis in the body of the record, but has not included the diagnosis in the final diagnostic statement, the physician should be asked whether the diagnosis should be added." (Source Coding Clinic 2 QTR90. p3-4) DENY
== END 2023-08-30 13:47 | DRG 872 ==
LOC: 2N 18:11 → ED 18:11 → SUATTDRO 08-21 00:12 → 2N 08-21 01:26 → SUATTDRO 08-22 02:05

== ENCOUNTER 2023-12-23 22:25 | Inpatient (IN) ==
[2023-12-23 22:52] LABS: Basophils # (auto) 0.04 K/uL (0.00-0.20); Basophils % (auto) 0.4 %; Eosinophils # (auto) 0.14 K/uL (0.00-0.50); Eosinophils % (auto) 1.2 %; Hematocrit (blood only) 34.1 % (42.0-52.0); Hemoglobin 10.3 g/dl (14.0-18.0); Immature Granulocytes # (auto) 0.07 K/uL (0.01-0.20); Immature Granulocytes % (auto) 0.6 %; Lymphocytes # (auto) 1.83 K/uL (1.20-3.40); Lymphocytes % (auto) 16.1 %; Mean Corpuscular Hemoglobin 24.9 pg (25.0-34.0); Mean Corpuscular Hgb Conc 30.2 g/dL (32.0-36.0); Mean Corpuscular Volume 82.6 fL (80.0-100.0); Mean Platelet Volume 11.5 fL (9.4-12.4); Monocytes # (auto) 0.93 K/uL (0.11-0.59); Monocytes % (auto) 8.2 %; Neutrophils # (auto) 8.33 K/uL (1.40-6.50); Neutrophils % (auto) 73.5 %; Platelet Count 158 K/uL (130-400); RDW Coefficient of Variation 18.1 % (11.5-14.5); RDW Standard Deviation 55.1 fL (36.4-46.3); Red Blood Count 4.13 M/uL (4.70-6.10); White Blood Count 11.34 K/ul (4.8-10.8)
--- NOTE | 2023-12-23 22:55 | Emergency Department Note ---
Impression & Plan Diverticulitis, Acute GI bleeding, Abdominal pain ED Provider Note NAME: RADHA DICKSON AGE: 88 SEX: M : 1935 ARRIVES VIA: Ambulance INFORMANT: Patient ED PROVIDER(S): Lane Velázquez DO CHIEF COMPLAINT: Abdominal pain HPI: Patient is an 88-year-old male with a past medical history of CHF, paroxysmal A-fib, GI bleed, symptomatic anemia, A-fib RVR, CAD, hypertension and hyperlipidemia as well as diabetes for black stools that started earlier today. He said he had 4 episodes of black/purple stools. He is unsure if he is taking his blood thinner anymore since he has been in center care. He notes he went there as he was very weak and since then he has been unable to really walk and get around. Denies any headache or change in vision. No chest pain or shortness of breath. No dysuria, urgency, or frequency. No other exacerbating or remitting factors. Additional history obtained from son who is present bedside he notes that he was placed there as he could not get around anymore by himself. ADDITIONAL HISTORY OBTAINED: Per HPI Chronic Medical/Social Conditions Affecting Care: Per HPI PAST MEDICAL HISTORY:See Below PAST SURGICAL HISTORY:See Below FAMILY HISTORY:See Below SOCIAL HISTORY:See Below HOME MEDICATIONS:See Below ALLERGIES:See Below VITALS:See Below PHYSICAL EXAMINATION: GENERAL: Sitting up in bed, alert, chronically ill-appearing, disheveled EYE EXAM: normal conjunctiva. OROPHARYNX: Dry mucous membranes NECK: supple, no nuchal rigidity, no adenopathy, non-tender LUNGS: Clear to auscultation. Normal chest wall mechanics HEART: no murmurs, S1 normal and S2 normal ABDOMEN: abdomen soft, non-tender, normo-active bowel sounds, no masses, no rebound or guarding. UPPER EXTREMITIES: upper extremities are grossly normal. LOWER EXTREMITIES: No pitting edema. NEURO EXAM: Normal sensorium, cranial nerves II-XII grossly intact, normal speech, no gross weakness of arms, no gross weakness of legs. MEDICAL DECISION MAKING: [Provider summary] patient is an 88-year-old male who presents to the ER for the above-stated complaint. IV was established medicos obtained. External records were reviewed which were sent over from long term which shows that he has a history of CAD, valvular heart disease with mild aortic regurg and trace tricuspid regurg and commendation with hypertension hyperlipidemia BPH and monoclonal gammopathy with his last cath performed in 2012 status post PCI x 1. Review of his meds from the external records provided for his admission to [facility] show no blood thinner. Labs showed a mild leukopenia 11,000. Mild anemia 10.3. BMP was unremarkable with the exception of a glucose of 329. Patient was given 6 units IV. LFTs bilirubin was unremarkable. Lipase was normal. Patient was typed and crossed for 2 units. He had a bowel movement here blood. CT abdomen pelvis confirms diverticulitis. He was given IV Zosyn. IV fluids. Discussed case with the hospitalist for further evaluation management treatment. Consults/Care Managements Discussions: Per MDM Triage Nursing notes reviewed. Limited review of prior medical records performed Vital Signs: reviewed and remarkable for no significant abnormalities Differential diagnosis: Diverticulosis, AVM, coagulopathy, colitis, inflammatory bowel disease, malignancy, Marya-Turner tear, esophagitis, peptic ulcer disease, variceal bleed, gastritis, epistaxis, fissure, hemorrhoids, as well as other pathologies. ER treatment provided: See below Diagnostics interpreted by me include EKG and cardiac monitoring as listed below: -Cardiac Monitoring: An order was placed for continuous cardiac monitoring. The monitor shows a rate of 79 with sinus rhythm. -ECG: Sinus rhythm at [address] wave changes in the high lateral leads QTc 492 -Laboratory studies:Interpreted by me as stated above in MDM and shown below. Imaging studies: Xrays: As interpreted by me:none CTs show: CT abdomen pelvis per my preliminary interpretation showed no obvious bowel obstruction CT abdomen pelvis per radiology showed diverticulitis Procedures:none Critical Care: None Past Med/Surg History Problem List (Updated 09/30/23 @ 00:09 by Background Daemon) Abdominal pain (Acute) Acute GI bleeding (Acute) Diverticulitis (Acute) Hospital acquired PNA input by error, wrong diagnosis Encounter for pre-operative examination Urinary symptom or sign Penile ulcer Balanitis Fall Left-sided chest wall pain (Acute) Ambulatory dysfunction (Acute) Leukocytosis (Acute) Hernia, hiatal (Acute) Acute on chronic diastolic (congestive) heart failure Paroxysmal atrial fibrillation Chronic diastolic heart failure Leukocytosis (Acute) GI bleed (Acute) Iron deficiency anemia (Acute) Diverticulitis (Acute) Elevated troponin (Acute) Symptomatic anemia (Acute) Diverticulitis Lower GI bleed Symptomatic anemia Greater trochanteric bursitis of both hips Elevated troponin I level CHF (congestive heart failure) (Acute) Atrial fibrillation, rapid (Acute) DVT prophylaxis Elevated troponin Chronic diastolic CHF (congestive heart failure) Atrial fibrillation with RVR Inflammatory polyarthropathy Atrial fibrillation Follows with [facility] cardiology CAD (coronary artery disease) (Chronic) 2012- MARY to LAD BPH (benign prostatic hyperplasia) (Chronic) 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 Zhu Osteoarthritis (Chronic) Chronic back pain (Chronic) Scoliosis (Chronic) History of tooth extraction (Chronic) History of cataract surgery (Chronic) R/L Medical History Atrial fibrillation Follows with [facility] cardiology BPH (benign prostatic hyperplasia) CAD (coronary artery disease) 2012- MARY to LAD Chronic back pain Chronic renal disease, stage III [address] 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) Following with [facility] heme/onc- last seen 05/28/23, recommendation to monitor/follow-up on annual basis Myocardial Infarction 2012 Osteoarthritis Scoliosis Seronegative arthritis Surgical History History of cardiac cath 2012 > stent x1 History of cataract surgery R/L History of heart artery stent 2012 > stent x1 History of tooth extraction Family History Mother Coronary heart disease, Onset Age: 63 of [place] CHF (congestive heart failure) Myocardial infarction Father CHF (congestive heart failure) Pneumonia Sister Coronary heart disease History of CABG Rheumatic heart disease Social History Smoking Status: Never smoker Second Hand Exposure: No; Do You Dip or Chew Tobacco: No; Hx Alcohol Use: No Hx Substance Use: No Preferred Language: Kyrgyz Communication Ability: Effective Education Administrator Required: No Beliefs That Will Affect Care: None marital status: / Current Living Situation: Alone Feels Safe at Home: Yes Assistive Devices: Stair Lift and Walker Allergies Allergies Allergy/AdvReac Type Severity Reaction Status Date / Time atenolol Allergy Unknown Patient Verified 08/20/23 22:28 told "never to take again" candesartan [From Atacand] AdvReac Intermediate Hyperkalemi Verified 08/20/23 22:28 a lisinopril AdvReac Intermediate Increased Verified 08/20/23 22:28 creatinine, hypotension Home Meds Home Medications Medication Instructions Recorded Confirmed albuterol sulfate 90 mcg/actuation 2 inh inhalation UD PRN Shortness 06/04/18 08/20/23 breath activated powder inhaler Of Breath Or Wheezing aspirin 81 mg tablet,delayed 81 mg PO QAM 06/04/18 08/20/23 release atorvastatin 80 mg tablet 80 mg PO QAM 06/04/18 08/20/23 multivitamin-ferrous 1 tab PO DAILY 09/03/18 08/20/23 fumarate-folic acid 18 mg-400 mcg tablet (Centrum) carvedilol 12.5 mg tablet 12.5 mg PO BID 06/13/22 08/20/23 linagliptin 5 mg tablet (Tradjenta) 5 mg PO QAM 06/13/22 08/20/23 nitroglycerin 0.4 mg sublingual 0.4 mg sublingual DIRECTED PRN 06/13/22 08/20/23 tablet Chest Pain sotalol 80 mg tablet 40 mg PO BID 06/13/22 08/20/23 terazosin 2 mg capsule 2 mg PO HS 06/13/22 08/20/23 coenzyme Q10 400 mg capsule 400 mg PO DAILY 02/26/23 08/20/23 empagliflozin 10 mg tablet 10 mg PO QAM 02/26/23 08/20/23 (Jardiance) Metamucil 1 cap PO DAILY 05/28/23 08/20/23 finasteride 5 mg tablet 5 mg PO QAM 05/28/23 08/20/23 furosemide 40 mg tablet (Lasix) 40 mg PO Q OTHER DAY 05/28/23 08/20/23 furosemide 40 mg tablet 60 mg PO Q OTHER DAY 08/20/23 08/20/23 Previous Rx's Medication Instructions Recorded acetaminophen 500 mg capsule 1,000 mg (2 x 500 mg) PO TID PRN 03/01/23 pain #30 caps pantoprazole 40 mg tablet,delayed 40 mg PO DAILY #30 tabs 08/30/23 release prednisone 5 mg tablet 5 mg PO QAM #0 tabs 08/30/23 Results & Data (ED) Vital Signs Vital Signs - 24 hr 12/23/23 22:38 12/23/23 23:19 Temperature 36.5 C Temperature Source Oral Pulse Rate 80 71 Pulse Rhythm Regular Pulse Strength Normal Respiratory Rate 16 Respiratory Effort / Characteristics Non-Labored Spontaneous Respiratory Depth Normal Respiratory Pattern Regular Blood Pressure 104/72 Blood Pressure Mean 82 Blood Pressure Position Lying Pulse Oximetry 100 Oxygen Delivery Method Room Air Sepsis Recent Fever Within 48 Hours No Sepsis New/Unexplained Change in Mental Status No Sepsis Action Taken by Nursing No Action Required Laboratory Data 12/23/23 22:35 12/23/23 22:35 Lab Results 12/23/23 12/23/23 12/23/23 Range/Units 22:35 22:47 23:47 WBC 11.34 H (4.8-10.8) K/ul RBC 4.13 L (4.70-6.10) M/uL Hgb 10.3 L (14.0-18.0) g/dl POC Hgb 10.9 L (14.0-18.0) g/dl Hct 34.1 L (42.0-52.0) % POC Hct 32 L (42-52) % MCV 82.6 (80.0-100.0) fL MCH 24.9 L (25.0-34.0) pg MCHC 30.2 L (32.0-36.0) g/dL RDW Std Deviation 55.1 H (36.4-46.3) fL RDW Coeff of Coty 18.1 H (11.5-14.5) % Plt Count 158 (130-400) K/uL MPV 11.5 (9.4-12.4) fL Immature Gran % (Auto) 0.6 % Neut % (Auto) 73.5 % Lymph % (Auto) 16.1 % Elmore % (Auto) 8.2 % Eos % (Auto) 1.2 % Baso % (Auto) 0.4 % Neut # (Auto) 8.33 H (1.40-6.50) K/uL Lymph # (Auto) 1.83 (1.20-3.40) K/uL Elmore # (Auto) 0.93 H (0.11-0.59) K/uL Eos # (Auto) 0.14 (0.00-0.50) K/uL Baso # (Auto) 0.04 (0.00-0.20) K/uL Immature Gran # (Auto) 0.07 (0.01-0.20) K/uL POC Sodium 138 (135-144) mmol/L Sodium 139 (136-145) mmol/L POC Potassium 4.8 (3.3-5.0) mmol/L Potassium 4.7 (3.5-5.1) mmol/L POC Chloride 102 (101-112) mmol/L Chloride 103 (98-107) mmol/L Carbon Dioxide 30 (21-32) mmol/L POC Total CO2 27 (24-31) mmol/L Anion Gap 6 (3-11) POC Anion Gap 15.0 L (16-25) mmol/L POC BUN 29 H (7-18) mg/dl BUN 28 H (6-23) mg/dl Creatinine 0.74 (0.6-1.4) mg/dl POC Creatinine 0.7 (0.6-1.3) mg/dl Est Cr Clr Drug Dosing 60.3 ml/min Est GFR ( Amer) 94.8 ml/min Est GFR (Non-Af Amer) 81.8 ml/min BUN/Creatinine Ratio 37.8 H (10-20) Glucose 329 H* (70-99(Fasting)) mg/dl POC Glucose (other) 311 H (70-99) mg/dl Calcium 8.4 L (8.6-10.3) mg/dl POC Ioniz Calcium Farooq 1.08 L (1.12-1.32) mmol/l Total Bilirubin 0.2 (0.2-1.0) mg/dl AST 12 L (13-39) U/L ALT 9 (7-52) U/L Alkaline Phosphatase 48 (34-104) U/L Total Protein 5.3 L (6.0-8.3) gm/dl Albumin 2.6 L (3.4-5.0) gm/dl Globulin 2.7 (2.5-4.0) gm/dl Albumin/Globulin Ratio 1.0 (0.9-2) Lipase 10 L (11-82) U/L Crossmatch See Detail Administered Medications Discontinued Medications Pantoprazole Sodium 40 mg/ (Dextrose) 100 mls @ 20 mls/hr IV Q5H ANNALISA Stop: 01/22/24 23:44 Last Infusion: 12/24/23 00:56 Dose: Infused Documented By: Admin: 12/23/23 23:56 Dose: 8 mg/hr, 20 mls/hr Documented By: ANDREI Pantoprazole Sodium 80 mg/ (Dextrose) 120 mls @ 480 mls/hr IV NOW ONE Stop: 12/23/23 23:36 Last Infusion: 12/24/23 00:56 Dose: Infused Documented By: Admin: 12/23/23 23:56 Dose: 480 mls/hr Documented By: ANDREI Piperacillin Sod/Tazobactam Sod (Zosyn) 4.5 gm in 100 mls @ 200 mls/hr IV NOW ONE Stop: 12/24/23 00:33 Last Admin: 12/24/23 00:46 Dose: 200 mls/hr Documented By: ANDREI Ioversol (Optiray 320 100ml) 92 ml IV ONCE ONE Stop: 12/23/23 23:13 Last Admin: 12/23/23 23:12 Dose: 92 ml Documented By: IDRIS Pantoprazole Sodium (Pantoprazole Bolus/Drip) 1 each IV NOW STA Stop: 12/23/23 23:23 Last Admin: 12/24/23 00:37 Dose: Not Given Documented By: ANDREI Imaging Data Radiologist's Impression: Abdomen/Pelvis CT 12/23/23 22:36 Exam(s): CT ABDOMEN + PELVIS With Contrast IV Amt: 92 cc opti 320 EXAM: CT Abdomen and Pelvis With Intravenous Contrast CLINICAL HISTORY: Reason for exam: abd pain brbpr. TECHNIQUE: Axial computed tomography images of the abdomen and pelvis with intravenous contrast. Automated exposure control was utilized for the study. A dose lowering technique was utilized adhering to the principles of ALARA. CONTRAST: Patient received 92 cc opti 320 of IV contrast COMPARISON: 08/24/2023 FINDINGS: Lung bases: There is chronic left basilar atelectasis / scar. Mediastinum: There is a large hiatal hernia. ABDOMEN: Liver: Unremarkable. No mass. Gallbladder and bile ducts: Unremarkable. No calcified stones. No ductal dilation. Pancreas: Unremarkable. No mass. No ductal dilation. Spleen: Unremarkable. No splenomegaly. Adrenals: Unremarkable. No mass. Kidneys and ureters: Unremarkable. No solid mass. No hydronephrosis. Stomach and bowel: There are scattered diverticula throughout the colon, more extensive in the descending and sigmoid colon. There is mild haziness of the adjacent sigmoid colon mesentery and mild thickening of the adjacent sigmoid colon suggestive of mild sigmoid colon diverticulitis. No bowel perforation or abscess is noted. Clinical correlation and follow up recommended. There is a 4 cm duodenal diverticulum. No associated inflammatory stranding is noted. No obstruction. PELVIS: Appendix: No findings to suggest acute appendicitis. Bladder: Unremarkable. No mass. Reproductive: Unremarkable as visualized. ABDOMEN and PELVIS: Intraperitoneal space: Unremarkable. No free air. No significant fluid collection. Bones/joints: There is advance multilevel lumbar degenerative disk disease. No acute fracture. No dislocation. Soft tissues: Unremarkable. Vasculature: There are moderate aortoiliac atherosclerotic calcifications. There is infrarenal aortic ectasia measuring up to 2.5 cm. No abdominal aortic aneurysm. Lymph nodes: Unremarkable. No enlarged lymph nodes. IMPRESSION: 1. Findings suggestive of mild sigmoid colon diverticulitis. No bowel perforation or abscess is noted. Clinical correlation and follow up recommended. 2. Large hiatal hernia and chronic left basilar atelectasis / scar. 3. Infrarenal aortic ectasia 4. Multilevel lumbar spondylosis. Electronically signed by: Sung Sanchez MD 12/23/23 23:58 PM Discharge Plan Visit Data Chief Complaint: Rectal Bleed Stated Complaint: Blood in Stool ED Provider: Lane Velázquez Discharge Problem: Diverticulitis, Acute GI bleeding, Abdominal pain Forms Stand Alone Forms: My [facility] Prescriptions Prescriptions: No Action atorvastatin 80 mg Tablet 80 mg PO QAM aspirin 81 mg Tablet,Delayed Release (Dr/Ec) 81 mg PO QAM albuterol sulfate 90 mcg/actuation Aerosol Powdr Breath Activated 2 inh INHALATION UD PRN (Reason: Shortness Of Breath Or Wheezing) Rx Instructions: [id number] Centrum 18-400 mg-mcg Tablet 1 tab PO DAILY carvedilol 12.5 mg tablet 12.5 mg PO BID sotalol 80 mg tablet 40 mg PO BID terazosin 2 mg capsule 2 mg PO HS nitroglycerin 0.4 mg tablet, sublingual 0.4 mg sublingual DIRECTED MDD 3 DOSES/15 MINUTES PRN (Reason: Chest Pain) Tradjenta 5 mg tablet 5 mg PO QAM Jardiance 10 mg tablet 10 mg PO QAM coenzyme Q10 400 mg Capsule 400 mg PO DAILY acetaminophen 500 mg capsule 1,000 mg PO TID PRN (Reason: pain) Qty: 30 0RF Metamucil 1 cap PO DAILY furosemide [Lasix] 40 mg tablet 40 mg PO Q OTHER DAY Patient Comments: takes 1/2 in am and 1/2 at night Rx Instructions: Alternate with 60 mg QOD. finasteride 5 mg tablet 5 mg PO QAM furosemide 40 mg tablet 60 mg PO Q OTHER DAY prednisone 5 mg tablet 5 mg PO QAM Qty: 0 0RF pantoprazole 40 mg tablet,delayed release (DR/EC) 40 mg PO DAILY Qty: 30 0RF Referrals Referrals: Eldon Dowd MD [Primary Care Provider] - Discharge Problem: Abdominal pain Qualifiers: Abdominal location: unspecified location Qualified Code(s): R10.9 - Unspecified abdominal pain
[2023-12-23 23:02] LABS: iSTAT Creatinine 0.7 mg/dl (0.6-1.3); iSTAT Hemoglobin 10.9 g/dl (14.0-18.0); iSTAT Ionized Calcium 1.08 mmol/l (1.12-1.32); iSTAT Potassium 4.8 mmol/L (3.3-5.0)
[2023-12-23 23:09] LABS: Albumin Level 2.6 gm/dl (3.4-5.0); BUN Creatinine Ratio 37.8 (10-20); Bilirubin,Total 0.2 mg/dl (0.2-1.0); Calcium 8.4 mg/dl (8.6-10.3); Creatinine Clr Calc Pharmacy 60.3 ml/min; Est GFR (African American) 94.8 ml/min; Est GFR (Non-African American) 81.8 ml/min; Globulin 2.7 gm/dl (2.5-4.0); Potassium 4.7 mmol/L (3.5-5.1); Total Protein 5.3 gm/dl (6.0-8.3)
[2023-12-23] MEDS: OPTIRAY 320 100ml IV ONE (23:12)
[2023-12-23] MEDS ORDERED: SODIUM CHLORIDE 0.9% 250 ML IV PRN (23:23)
[2023-12-23] MEDS: NovoLIN-R INSULIN PER UNIT CHARGE IV STA (23:30)
[2023-12-23] MEDS: PANTOprazole 80 MG in DEXTROSE 5% 100 ML IV ONE (23:56)
[2023-12-23] MEDS: PANTOprazole 40 MG in DEXTROSE 5% MINI-B 100 ML IV SCH (23:56)
--- NOTE | 2023-12-24 | CT Scan Report ---
Exam(s): CT ABDOMEN + PELVIS With Contrast IV Amt: 92 cc opti 320 EXAM: CT Abdomen and Pelvis With Intravenous Contrast CLINICAL HISTORY: Reason for exam: abd pain brbpr. TECHNIQUE: Axial computed tomography images of the abdomen and pelvis with intravenous contrast. Automated exposure control was utilized for the study. A dose lowering technique was utilized adhering to the principles of ALARA. CONTRAST: Patient received 92 cc opti 320 of IV contrast COMPARISON: 08/24/2023 FINDINGS: Lung bases: There is chronic left basilar atelectasis / scar. Mediastinum: There is a large hiatal hernia. ABDOMEN: Liver: Unremarkable. No mass. Gallbladder and bile ducts: Unremarkable. No calcified stones. No ductal dilation. Pancreas: Unremarkable. No mass. No ductal dilation. Spleen: Unremarkable. No splenomegaly. Adrenals: Unremarkable. No mass. Kidneys and ureters: Unremarkable. No solid mass. No hydronephrosis. Stomach and bowel: There are scattered diverticula throughout the colon, more extensive in the descending and sigmoid colon. There is mild haziness of the adjacent sigmoid colon mesentery and mild thickening of the adjacent sigmoid colon suggestive of mild sigmoid colon diverticulitis. No bowel perforation or abscess is noted. Clinical correlation and follow up recommended. There is a 4 cm duodenal diverticulum. No associated inflammatory stranding is noted. No obstruction. PELVIS: Appendix: No findings to suggest acute appendicitis. Bladder: Unremarkable. No mass. Reproductive: Unremarkable as visualized. ABDOMEN and PELVIS: Intraperitoneal space: Unremarkable. No free air. No significant fluid collection. Bones/joints: There is advance multilevel lumbar degenerative disk disease. No acute fracture. No dislocation. Soft tissues: Unremarkable. Vasculature: There are moderate aortoiliac atherosclerotic calcifications. There is infrarenal aortic ectasia measuring up to 2.5 cm. No abdominal aortic aneurysm. Lymph nodes: Unremarkable. No enlarged lymph nodes. IMPRESSION: 1. Findings suggestive of mild sigmoid colon diverticulitis. No bowel perforation or abscess is noted. Clinical correlation and follow up recommended. 2. Large hiatal hernia and chronic left basilar atelectasis / scar. 3. Infrarenal aortic ectasia 4. Multilevel lumbar spondylosis. Electronically signed by: Sung Sanchez MD 12/23/23 23:58 PM
[2023-12-24] MEDS: SODIUM CHLORIDE 0.9% 500 ML IV ONE (00:30)
[2023-12-24] MEDS: PANTOPRAZOLE BOLUS/DRIP IV STA (00:37)
[2023-12-24] MEDS: PIPERACILLIN/TAZOBACTAM 4.5 GM/100 ML BAG IV ONE (00:46)
--- NOTE | 2023-12-24 00:53 | History & Physical Report ---
Date of Service December 24, 2023 Assessment & Plan (1) GI bleed: Plan: Lower GI bleed Secondary to recurrent diverticulitis No sepsis for now PAF, off anticoagulation secondary to risks, patient currently NSR chronic diastolic heart failure (EF 65 to 70%, TTE 2023), patient on the dry side CAD status post stent mild hx TIA hypertension, BP on the lower side hyperlipidemia, on statin Rx DM 2 insulin requiring, suboptimal control as of recent hemoglobin A1c of 11.3 last August 2023 inflammatory arthritis on chronic steroid Rx past tobacco abuse Admit to medical telemetry Clear liquid diet Zosyn GI consult re: recurrent diverticulitis Follow H&H, transfuse PRBC if hemoglobin less than 8 and or for symptomatic anemia Appropriate to hold aspirin for now given LGIB IVF, continue sotalol Rx for now; hold carvedilol, home diuretic Rx, and terazosin given borderline BP Basal bolus insulin adjusted for clear liquid diet, ISS BG goal 1 10-1 40 DVT prophylaxis SCDs re: GI bleed DNR as per patient prior directives as per son Patient son requesting updates providers. Vinod Arceo, contact #[phone]. Text document was generated using [employer] voice recognition software. It may contain grammatical or spelling errors. Kindly contact undersigned for clarification of any documentation item in question. History of Present Illness Chief Complaint: Abdominal pain, GI bleed Primary Care Provider: Eldon Dowd MD History obtained from patient, family, and records. Medical history significant for chronic diastolic heart failure (EF 65 to 70%, TTE 2023), CAD status post stent, mild , A-fib off anticoagulation secondary to risks, TIA, hypertension, hyperlipidemia, DM 2 insulin requiring, diverticulosis, chronic anemia (baseline hemoglobin 9-10), inflammatory arthritis on chronic steroid Rx, BPH, monoclonal gammopathy, past tobacco abuse. Last confinement August 2023 for gram-negative bacteremia. CT imaging showed possible cecal/sigmoid diverticulitis although patient without abdominal pain complaints. Patient completed cephalosporin course. Patient discharged to [facility] for rehab. Last night, patient noted to have achy lower abdominal pain associated with dark red blood stools. Patient with bilious emesis as per son. No chest pain, no SOB. No fever, no chills. IV Protonix and Zosyn administered at the ER. 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 Allergies Allergy/AdvReac Type Severity Reaction Status Date / Time atenolol Allergy Unknown Patient Verified 08/20/23 22:28 told "never to take again" candesartan [From Atacand] AdvReac Intermediate Hyperkalemi Verified 08/20/23 22:28 a lisinopril AdvReac Intermediate Increased Verified 08/20/23 22:28 creatinine, hypotension Home Medications Medication Instructions Recorded Confirmed Type albuterol sulfate 90 mcg/actuation 2 inh inhalation UD PRN Shortness 06/04/18 12/24/23 History breath activated powder inhaler Of Breath Or Wheezing aspirin 81 mg tablet,delayed 81 mg PO QAM 06/04/18 12/24/23 History release atorvastatin 80 mg tablet 80 mg PO HS 06/04/18 12/24/23 History multivitamin-ferrous 1 tab PO DAILY 09/03/18 12/24/23 History fumarate-folic acid 18 mg-400 mcg tablet (Centrum) carvedilol 12.5 mg tablet 12.5 mg PO BID 06/13/22 12/24/23 History nitroglycerin 0.4 mg sublingual 0.4 mg sublingual DIRECTED PRN 06/13/22 12/24/23 History tablet Chest Pain sotalol 80 mg tablet 40 mg PO BID 06/13/22 12/24/23 History terazosin 2 mg capsule 2 mg PO HS 06/13/22 12/24/23 History coenzyme Q10 400 mg capsule 400 mg PO DAILY 02/26/23 12/24/23 History Metamucil 4 g PO DAILY 05/28/23 12/24/23 History finasteride 5 mg tablet 5 mg PO QAM 05/28/23 12/24/23 History furosemide 40 mg tablet (Lasix) 40 mg PO Q OTHER DAY 05/28/23 12/24/23 History furosemide 40 mg tablet 60 mg PO Q OTHER DAY 08/20/23 12/24/23 History pantoprazole 40 mg tablet,delayed 40 mg PO DAILY #30 tabs 08/30/23 12/24/23 Rx release acetaminophen 500 mg capsule 1,000 mg PO TID PRN pain/fever 12/24/23 12/24/23 History acetaminophen 500 mg tablet 500 mg PO BID 12/24/23 12/24/23 History empagliflozin 25 mg tablet 12.5 mg PO DAILY 12/24/23 12/24/23 History (Jardiance) empagliflozin 25 mg tablet 12.5 mg PO DAILY 12/24/23 12/24/23 History (Jardiance) insulin glargine 100 unit/mL 12 unit subcut DAILY 12/24/23 12/24/23 History subcutaneous solution (Lantus U-100 Insulin) insulin lispro 100 unit/mL See Rx Instructions .Route .COMPLEX 12/24/23 12/24/23 History subcutaneous solution (Humalog U-100 Insulin) levothyroxine 50 mcg tablet 50 mcg PO DAILY 12/24/23 12/24/23 History loperamide 2 mg tablet (Imodium 2 mg PO Q2H PRN Diarrhea 12/24/23 12/24/23 History A-D) magnesium hydroxide 400 mg/5 mL 30 ml PO DAILY PRN Constipation 12/24/23 12/24/23 History oral suspension (Milk of Magnesia) potassium chloride 20 mEq 20 meq PO QAM 12/24/23 12/24/23 History tablet,extended release(part/cryst) potassium chloride 20 mEq 20 meq PO QAM 12/24/23 12/24/23 History tablet,extended release(part/cryst) prednisone 5 mg tablet 5 mg PO QAM 12/24/23 12/24/23 History Past Med/Surg History Problem List (Updated 09/30/23 @ 00:09 by Background Daemon) Abdominal pain (Acute) Acute GI bleeding (Acute) Diverticulitis (Acute) Hospital acquired PNA input by error, wrong diagnosis Encounter for pre-operative examination Urinary symptom or sign Penile ulcer Balanitis Fall Left-sided chest wall pain (Acute) Ambulatory dysfunction (Acute) Leukocytosis (Acute) Hernia, hiatal (Acute) Acute on chronic diastolic (congestive) heart failure Paroxysmal atrial fibrillation Chronic diastolic heart failure Leukocytosis (Acute) GI bleed (Acute) Iron deficiency anemia (Acute) Diverticulitis (Acute) Elevated troponin (Acute) Symptomatic anemia (Acute) Diverticulitis Lower GI bleed Symptomatic anemia Greater trochanteric bursitis of both hips Elevated troponin I level CHF (congestive heart failure) (Acute) Atrial fibrillation, rapid (Acute) DVT prophylaxis Elevated troponin Chronic diastolic CHF (congestive heart failure) Atrial fibrillation with RVR Inflammatory polyarthropathy Atrial fibrillation Follows with 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 heme/onc- last seen 05/28/23, recommendation to monitor/follow-up on annual basis Hiatal hernia (Chronic) Hyperlipidemia (Chronic) Hypertension (Chronic) Cardiac murmur (Chronic) History of heart artery stent (Chronic) 2012 > stent x1 Myocardial Infarction (Chronic) 2012 Diabetes mellitus, type 2 (Chronic) NIDDM Chronic renal disease, stage III (Chronic) Follows with Dr. Zhu Osteoarthritis (Chronic) Chronic back pain (Chronic) Scoliosis (Chronic) History of tooth extraction (Chronic) History of cataract surgery (Chronic) R/L Medical History Atrial fibrillation Follows with [facility] cardiology BPH (benign prostatic hyperplasia) CAD (coronary artery disease) 2012- MARY to LAD Chronic back pain Chronic renal disease, stage III [address] 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 heme/onc- last seen 05/28/23, recommendation to monitor/follow-up on annual basis Myocardial Infarction 2012 Osteoarthritis Scoliosis Seronegative arthritis Surgical History History of cardiac cath 2012 > stent x1 History of cataract surgery R/L History of heart artery stent 2012 > stent x1 History of tooth extraction Family History Mother Coronary heart disease, Onset Age: 63 of [place] CHF (congestive heart failure) Myocardial infarction Father CHF (congestive heart failure) Pneumonia Sister Coronary heart disease History of CABG Rheumatic heart disease Social History Smoking Status: Never smoker Second Hand Exposure: No; Do You Dip or Chew Tobacco: No; Tobacco Cessation Education Requested by Patient: No Hx Alcohol Use: No Hx Substance Use: No Preferred Language: Swedish Communication Ability: Effective Group 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: 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 Beliefs That Will Affect Care: None marital status: / Current Living Situation: Long-Term Other Information That Helps Us Care for You: No Feels Safe at Home: Yes Safety Concerns: Feels Safe At This Time Assistive Devices: Stair Lift and Walker Review of Systems Review of Systems: As per HPI, all other systems reviewed and negative Physical Exam Physical Exam: GENERAL: Slightly uncomfortable, chronically ill, slightly hard of hearing, no respiratory distress SKIN: Pallor, warm HEENT: Alopecia, pale palpebral conjunctivae, no ptosis, dry buccal mucosa NECK : Supple, no tenderness CHEST : Decreased breath sounds, no tenderness HEART : RRR, no obvious murmurs ABDOMEN: Abdominal distention, left-sided abdominal tenderness EXTREMITIES : No LE swelling/tenderness, no other conspicuous deformities noted NEUROLOGIC : Coherent, no facial asymmetry, slightly hard of hearing, gait and stance not assessed Results & Data Results & Data Vital Signs (Past 12 Hours) Vital Signs Temp Pulse Resp BP Pulse Ox O2 Del Method 12/23/23 23:19 71 12/23/23 22:38 36.5 C 80 16 104/72 100 Room Air Laboratory Results Laboratory Results WBC 11.34 K/ul (4.8-10.8) H 12/23/23 22:35 RBC 4.13 M/uL (4.70-6.10) L 12/23/23 22:35 Hgb 10.3 g/dl (14.0-18.0) L 12/23/23 22:35 POC Hgb 10.9 g/dl (14.0-18.0) L 12/23/23 22:47 Hct 34.1 % (42.0-52.0) L 12/23/23 22:35 POC Hct 32 % (42-52) L 12/23/23 22:47 MCV 82.6 fL (80.0-100.0) 12/23/23 22:35 MCH 24.9 pg (25.0-34.0) L 12/23/23 22:35 MCHC 30.2 g/dL (32.0-36.0) L 12/23/23 22:35 RDW Std Deviation 55.1 fL (36.4-46.3) H 12/23/23 22:35 RDW Coeff of [place] 18.1 % (11.5-14.5) H 12/23/23 22:35 Plt Count 158 K/uL (130-400) 12/23/23 22:35 MPV 11.5 fL (9.4-12.4) 12/23/23 22:35 Immature Gran % (Auto) 0.6 % 12/23/23 22:35 Neut % (Auto) 73.5 % 12/23/23 22:35 Lymph % (Auto) 16.1 % 12/23/23 22:35 [place] % (Auto) 8.2 % 12/23/23 22:35 Eos % (Auto) 1.2 % 12/23/23 22:35 Baso % (Auto) 0.4 % 12/23/23 22:35 Neut # (Auto) 8.33 K/uL (1.40-6.50) H 12/23/23 22:35 Lymph # (Auto) 1.83 K/uL (1.20-3.40) 12/23/23 22:35 [place] # (Auto) 0.93 K/uL (0.11-0.59) H 12/23/23 22:35 Eos # (Auto) 0.14 K/uL (0.00-0.50) 12/23/23 22:35 Baso # (Auto) 0.04 K/uL (0.00-0.20) 12/23/23 22:35 Immature Gran # (Auto) 0.07 K/uL (0.01-0.20) 12/23/23 22:35 POC Sodium 138 mmol/L (135-144) 12/23/23 22:47 Sodium 139 mmol/L (136-145) 12/23/23 22:35 POC Potassium 4.8 mmol/L (3.3-5.0) 12/23/23 22:47 Potassium 4.7 mmol/L (3.5-5.1) 12/23/23 22:35 POC Chloride 102 mmol/L (101-112) 12/23/23 22:47 Chloride 103 mmol/L (98-107) 12/23/23 22:35 Carbon Dioxide 30 mmol/L (21-32) 12/23/23 22:35 POC Total CO2 27 mmol/L (24-31) 12/23/23 22:47 Anion Gap 6 (3-11) 12/23/23 22:35 POC Anion Gap 15.0 mmol/L (16-25) L 12/23/23 22:47 POC BUN 29 mg/dl (7-18) H 12/23/23 22:47 BUN 28 mg/dl (6-23) H 12/23/23 22:35 Creatinine 0.74 mg/dl (0.6-1.4) 12/23/23 22:35 POC Creatinine 0.7 mg/dl (0.6-1.3) 12/23/23 22:47 Est Cr Clr Drug Dosing 60.3 ml/min 12/23/23 22:35 Est GFR ( Amer) 94.8 ml/min 12/23/23 22:35 Est GFR (Non-Af Amer) 81.8 ml/min 12/23/23 22:35 BUN/Creatinine Ratio 37.8 (10-20) H 12/23/23 22:35 Glucose 329 mg/dl (70-99(Fasting)) H* 12/23/23 22:35 POC Glucose (other) 311 mg/dl (70-99) H 12/23/23 22:47 Calcium 8.4 mg/dl (8.6-10.3) L 12/23/23 22:35 POC Ioniz Calcium [place] 1.08 mmol/l (1.12-1.32) L 12/23/23 22:47 Total Bilirubin 0.2 mg/dl (0.2-1.0) 12/23/23 22:35 AST 12 U/L (13-39) L 12/23/23 22:35 ALT 9 U/L (7-52) 12/23/23 22:35 Alkaline Phosphatase 48 U/L (34-104) 12/23/23 22:35 Total Protein 5.3 gm/dl (6.0-8.3) L 12/23/23 22:35 Albumin 2.6 gm/dl (3.4-5.0) L 12/23/23 22:35 Globulin 2.7 gm/dl (2.5-4.0) 12/23/23 22:35 Albumin/Globulin Ratio 1.0 (0.9-2) 12/23/23 22:35 Lipase 10 U/L (11-82) L 12/23/23 22:35 Crossmatch See Detail 12/23/23 23:47 Impressions Abdomen/Pelvis CT 12/23/23 22:36 Exam(s): CT ABDOMEN + PELVIS With Contrast IV Amt: 92 cc opti 320 EXAM: CT Abdomen and Pelvis With Intravenous Contrast CLINICAL HISTORY: Reason for exam: abd pain brbpr. TECHNIQUE: Axial computed tomography images of the abdomen and pelvis with intravenous contrast. Automated exposure control was utilized for the study. A dose lowering technique was utilized adhering to the principles of ALARA. CONTRAST: Patient received 92 cc opti 320 of IV contrast COMPARISON: 08/24/2023 FINDINGS: Lung bases: There is chronic left basilar atelectasis / scar. Mediastinum: There is a large hiatal hernia. ABDOMEN: Liver: Unremarkable. No mass. Gallbladder and bile ducts: Unremarkable. No calcified stones. No ductal dilation. Pancreas: Unremarkable. No mass. No ductal dilation. Spleen: Unremarkable. No splenomegaly. Adrenals: Unremarkable. No mass. Kidneys and ureters: Unremarkable. No solid mass. No hydronephrosis. Stomach and bowel: There are scattered diverticula throughout the colon, more extensive in the descending and sigmoid colon. There is mild haziness of the adjacent sigmoid colon mesentery and mild thickening of the adjacent sigmoid colon suggestive of mild sigmoid colon diverticulitis. No bowel perforation or abscess is noted. Clinical correlation and follow up recommended. There is a 4 cm duodenal diverticulum. No associated inflammatory stranding is noted. No obstruction. PELVIS: Appendix: No findings to suggest acute appendicitis. Bladder: Unremarkable. No mass. Reproductive: Unremarkable as visualized. ABDOMEN and PELVIS: Intraperitoneal space: Unremarkable. No free air. No significant fluid collection. Bones/joints: There is advance multilevel lumbar degenerative disk disease. No acute fracture. No dislocation. Soft tissues: Unremarkable. Vasculature: There are moderate aortoiliac atherosclerotic calcifications. There is infrarenal aortic ectasia measuring up to 2.5 cm. No abdominal aortic aneurysm. Lymph nodes: Unremarkable. No enlarged lymph nodes. IMPRESSION: 1. Findings suggestive of mild sigmoid colon diverticulitis. No bowel perforation or abscess is noted. Clinical correlation and follow up recommended. 2. Large hiatal hernia and chronic left basilar atelectasis / scar. 3. Infrarenal aortic ectasia 4. Multilevel lumbar spondylosis. Electronically signed by: Sung Sanchez MD 12/23/23 23:58 PM
[2023-12-24] MEDS ORDERED: PROMETHAZINE 6.25 MG/50.25 ML BAG IV PRN (00:59)
[2023-12-24] MEDS ORDERED: CARBOHYDRATES FOR HYPOGLYCEMIA PO PRN (00:59)
[2023-12-24] MEDS ORDERED: GLUCOSE 40% GEL 15 GM TUBE PO PRN (00:59)
[2023-12-24] MEDS ORDERED: GLUCAGON FOR INJ 1 MG VIAL SQ PRN (00:59)
[2023-12-24] MEDS ORDERED: DEXTROSE 50% 50 ML SYRINGE IV PRN (00:59)
[2023-12-24] MEDS ORDERED: GLUCOSE 10 TAB/TUBE PO PRN (00:59)
[2023-12-24] MEDS: DEXAMETHASONE SOD INJ 4 MG/ML VIAL IV STA ×2 (01:51→05:33)
[2023-12-24] MEDS: ACETAMINOPHEN 1,000 MG/100 ML VIAL IV STA (01:53)
[2023-12-24] MEDS: SODIUM CHLORIDE 0.9% 1,000 ML IV ONE (01:55)
[2023-12-24] MEDS: INSULIN ASPART PER UNIT CHARGE SC SCH (03:02)
[2023-12-24] MEDS: LANTUS PER UNIT CHARGE SQ STA (03:03)
[2023-12-24 04:28] LABS: Calcium 7.9 mg/dl (8.6-10.3); Potassium 3.9 mmol/L (3.5-5.1)
[2023-12-24 04:34] LABS: BUN Creatinine Ratio 43.1 (10-20); Creatinine Clr Calc Pharmacy 68.7 ml/min; Est GFR (Non-African American) 86.3 ml/min
[2023-12-24] MEDS ORDERED: dexAMETHasone 4 MG in SYRINGE 0 ML IV ONE (04:58)
[2023-12-24] MEDS: LACTATED RINGER'S 1,000 ML IV ONE ×2 (05:32→20:01)
[2023-12-24] MEDS: LEVOTHYROXINE SODIUM 50 MCG TABLET PO SCH (05:33)
[2023-12-24] MEDS: PIPERACILLIN/TAZOBACTAM 4.5 GM/100 ML BAG IV SCH (05:33)
[2023-12-24 06:22] LABS: Appearance Urine Clear (Clear); Bacteria Urine Automated None Seen (None Seen); Bilirubin Urine Negative (Negative); Blood Urine 2+ (Negative); Cast Urine Automated 0-2 /lpf (0-2); Color Urine Yellow; Epithelial Cell Urine Auto 0-2 /hpf (0-2); Glucose Urine UA 3+ (Negative); Ketones Urine Negative (Negative); Leukocyte Esterase Urine Negative (Negative); Nitrite Urine Negative (Negative); Protein Urine Negative (Negative); RBC Urine Automated 0-2 /hpf (0-2); Specific Gravity Urine > 1.045 (1.000-1.030); Urobilinogen Urine Negative (Negative); WBC Urine Automated 0-5 /hpf (0-5)
[2023-12-24] MEDS ORDERED: MULTIVITAMIN IRON FOLIC ACID PO SCH (09:00)
[2023-12-24] MEDS ORDERED: predniSONE 5 MG TAB PO SCH (09:00)
[2023-12-24] MEDS: SOTALOL HCL 80 MG TAB PO SCH (09:37)
[2023-12-24] MEDS: FINASTERIDE 5 MG TAB PO SCH (09:37)
[2023-12-24] MEDS: PANTOprazole 40 MG TAB PO SCH (09:37)
[2023-12-24] MEDS: LANTUS PER UNIT CHARGE SQ SCH (09:38)
[2023-12-24 10:10] LABS: Hemoglobin 7.6 g/dl (14.0-18.0)
--- NOTE | 2023-12-24 12:06 | Gastrointestinal Consultation ---
Date of Consultation December 24, 2023 Assessment & Plan (1) Diverticulitis: -Continue IV Zosyn with eventual transition to po antibiotics for a total of 10 days of treatment -Can obtain stool studies to exclude overlapping infection -Monitor ongoing GI bleeding and H/H -Liquid diet for now, low residue diet when advanced -Hold Metamucil now -Could consider colonoscopy in 6-8 weeks to assess for any other underlying issues contributing to bleeding and diverticulitis, but given patient's age and medical comorbidities would understand if patient chose not to pursue this Supervising Physician Co-Signing Physician Notes I examined the patient and reviewed patient's chart , laboratory data and imaging studies. I agree with with assessment and plan of care as suggested by advanced practice provider History of Present Illness Reason for Consultation: Recurrent Diverticulitis Attending Physician: Fritz Ramos DO History of Present Illness Patient is an 88 yo male who presented to the ED with lower abdominal pain & rectal bleeding. Reportedly the patient has had several episodes of diverticulitis in the past. No history of perforation or surgical intervention. Patient notes to me that his pain felt worse than previous episodes so he came t o the ED. He notes loose stools with red to dark red blood. He notes his last colonoscopy was long ago (cannot recall year). An H/H in the ED was 10.3/34.1. A CT scan in the ED indicated the following: IMPRESSION: 1. Findings suggestive of mild sigmoid colon diverticulitis. No bowel perforation or abscess is noted. Clinical correlation and follow up recommended. 2. Large hiatal hernia and chronic left basilar atelectasis / scar. 3. Infrarenal aortic ectasia 4. Multilevel lumbar spondylosis. He is currently on IV Zosyn. He notes he moved his bowels last 3 hours ago and denies overt GI bleeding during that episode. He takes Aspirin 81 mg at home. It appears he also takes Metamucil at home. Allergies Allergy/AdvReac Type Severity Reaction Status Date / Time atenolol Allergy Unknown Patient Verified 08/20/23 22:28 told "never to take again" candesartan [From Atacand] AdvReac Intermediate Hyperkalemi Verified 08/20/23 22:28 a lisinopril AdvReac Intermediate Increased Verified 08/20/23 22:28 creatinine, hypotension Home Medications Medication Instructions Recorded Confirmed Type albuterol sulfate 90 mcg/actuation 2 inh inhalation UD PRN Shortness 06/04/18 12/24/23 History breath activated powder inhaler Of Breath Or Wheezing aspirin 81 mg tablet,delayed 81 mg PO QAM 06/04/18 12/24/23 History release atorvastatin 80 mg tablet 80 mg PO HS 06/04/18 12/24/23 History multivitamin-ferrous 1 tab PO DAILY 09/03/18 12/24/23 History fumarate-folic acid 18 mg-400 mcg tablet (Centrum) carvedilol 12.5 mg tablet 12.5 mg PO BID 06/13/22 12/24/23 History nitroglycerin 0.4 mg sublingual 0.4 mg sublingual DIRECTED PRN 06/13/22 12/24/23 History tablet Chest Pain sotalol 80 mg tablet 40 mg PO BID 06/13/22 12/24/23 History terazosin 2 mg capsule 2 mg PO HS 06/13/22 12/24/23 History coenzyme Q10 400 mg capsule 400 mg PO DAILY 02/26/23 12/24/23 History Metamucil 4 g PO DAILY 05/28/23 12/24/23 History finasteride 5 mg tablet 5 mg PO QAM 05/28/23 12/24/23 History furosemide 40 mg tablet (Lasix) 40 mg PO Q OTHER DAY 05/28/23 12/24/23 History furosemide 40 mg tablet 60 mg PO Q OTHER DAY 08/20/23 12/24/23 History pantoprazole 40 mg tablet,delayed 40 mg PO DAILY #30 tabs 08/30/23 12/24/23 Rx release acetaminophen 500 mg capsule 1,000 mg PO TID PRN pain/fever 12/24/23 12/24/23 History acetaminophen 500 mg tablet 500 mg PO BID 12/24/23 12/24/23 History empagliflozin 25 mg tablet 12.5 mg PO DAILY 12/24/23 12/24/23 History (Jardiance) empagliflozin 25 mg tablet 12.5 mg PO DAILY 12/24/23 12/24/23 History (Jardiance) insulin glargine 100 unit/mL 12 unit subcut DAILY 12/24/23 12/24/23 History subcutaneous solution (Lantus U-100 Insulin) insulin lispro 100 unit/mL See Rx Instructions .Route .COMPLEX 12/24/23 12/24/23 History subcutaneous solution (Humalog U-100 Insulin) levothyroxine 50 mcg tablet 50 mcg PO DAILY 12/24/23 12/24/23 History loperamide 2 mg tablet (Imodium 2 mg PO Q2H PRN Diarrhea 12/24/23 12/24/23 History A-D) magnesium hydroxide 400 mg/5 mL 30 ml PO DAILY PRN Constipation 12/24/23 12/24/23 History oral suspension (Milk of Magnesia) potassium chloride 20 mEq 20 meq PO QAM 12/24/23 12/24/23 History tablet,extended release(part/cryst) potassium chloride 20 mEq 20 meq PO QAM 12/24/23 12/24/23 History tablet,extended release(part/cryst) prednisone 5 mg tablet 5 mg PO QAM 12/24/23 12/24/23 History Patient History Medical History Atrial fibrillation Follows with [facility] cardiology BPH (benign prostatic hyperplasia) CAD (coronary artery disease) 2012- MARY to LAD Chronic back pain Chronic renal disease, stage III [address] 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) Following with [facility] heme/onc- last seen 05/28/23, recommendation to monitor/follow-up on annual basis Myocardial Infarction 2011 Osteoarthritis Scoliosis Seronegative arthritis Surgical History History of cardiac cath 2011 > stent x1 History of cataract surgery R/L History of heart artery stent 2011 > stent x1 History of tooth extraction Family History Mother Coronary heart disease, Onset Age: 63 of [place] CHF (congestive heart failure) Myocardial infarction Father CHF (congestive heart failure) Pneumonia Sister Coronary heart disease History of CABG Rheumatic heart disease Social History Smoking Status: Never smoker Second Hand Exposure: No; Do You Dip or Chew Tobacco: No; Tobacco Cessation Education Requested by Patient: No Hx Alcohol Use: No Hx Substance Use: No Preferred Language: Cymro Communication Ability: Effective 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 Beliefs That Will Affect Care: None marital status: / Current Living Situation: Custodial Other Information That Helps Us Care for You: No Feels Safe at Home: Yes Safety Concerns: Feels Safe At This Time Assistive Devices: Walker and Wheelchair Review of Systems Constitutional: no fever and no chills Respiratory: no cough and no dyspnea Cardiovascular: no chest pain Gastrointestinal: + abdominal pain, + diarrhea/loose stool s and + blood in stools Physical Exam Constitutional: well developed Respiratory: normal respiratory effort Gastrointestinal (Abdomen): Inspection/Auscultation: abdomen normal to inspection and normal bowel sounds Percussion/Palpation: + abdomen tender and abdomen soft Psychiatric: Orientation: alert Results & Data Vital Signs (Past 12 Hours) Vital Signs Pulse Pulse Resp BP BP Pulse Ox O2 Del Method 12/24/23 07:11 63 12/24/23 05:38 92 H 16 114/54 L 100 Room Air 12/24/23 04:46 Nasal Cannula 12/24/23 04:46 61 16 93/66 L 96 Room Air 12/24/23 04:43 61 16 93/66 L 96 Room Air 12/24/23 03:40 61 18 93/65 L 97 Room Air 12/24/23 02:00 63 18 127/71 98 Room Air 12/24/23 01:48 61 16 80/51 L 98 Room Air 12/24/23 01:45 63 18 74/49 L 96 Room Air 12/24/23 01:37 109/85 12/24/23 01:32 53 L 14 95/51 L 99 Room Air 12/24/23 01:00 61 20 123/76 99 Room Air O2 Flow Rate 12/24/23 07:11 12/24/23 05:38 12/24/23 04:46 2 12/24/23 04:46 12/24/23 04:43 12/24/23 03:40 12/24/23 02:00 12/24/23 01:48 12/24/23 01:45 12/24/23 01:37 12/24/23 01:32 12/24/23 01:00 PG Care Time/CCT Total # of Minutes Spent Total Time Spent with Patient: Total time spent is greater than 50% in coordination of care (as documented) at patient's floor/unit and/or counseling patient: Coding Level of Care Code 66643 INT INP/OBS CARE 3/75MIN Diagnoses Diverticulitis K57.92
[2023-12-24] MEDS: PANTOprazole 40 MG in SYRINGE 0 ML IV SCH (12:43)
[2023-12-24] MEDS ORDERED: SODIUM CHLORIDE 0.9% 250 ML IV PRN ×3 (13:57→23:14)
[2023-12-24] MEDS: SODIUM CHLORIDE 0.9% 500 ML IV SCH (14:07)
--- NOTE | 2023-12-24 14:18 | Hospitalist Progress Note ---
Date of Service December 24, 2023 Assessment & Plan (1) Acute blood loss anemia: (2) Acute GI bleeding: (3) Diverticulitis: (4) Lactic acidosis: (5) Chronic diastolic heart failure: (6) Paroxysmal atrial fibrillation: (7) Diabetes mellitus, type 2: (8) Chronic renal disease, stage III: Plan Patient critically ill with acute blood loss anemia from possible diverticular bleed/acute blood loss now with symptomatic anemia as evidenced by some dizziness and hypotension. Requires hospital level care and interventions Severe lactic acidosis possibly due to diverticulitis versus hypoperfusion with his anemia Immediate saline bolus, continue lactated Ringer's Transfuse PRBCs Communication with GI team, aware of patient's ongoing GI blood loss. Monitor hemoglobin Monitor electrolytes and renal function Hold prednisone, appears that bleeding may be a lower GI source but cannot completely rule out an upper source, IV Protonix twice daily Stool BioFire and C. difficile sent. Results pending Continue to monitor glucose, insulin for coverage Continue Zosyn for diverticulitis. Admission and Anticipated Discharge Date Admission Date: December 24, 2023 Subjective Patient had 2 large bloody stools since admission. With his last stool felt a little bit lightheaded and dizzy. Denies any chest pain, no shortness of breath, no abdominal pain. Physical Exam Physical Exam: Constitutional: Alert, pale HEENT: Mucous membranes moist. Lungs: Clear to auscultation, decreased, no wheezes rales or rhonchi CV: S1-S2, regular Abdomen: Soft, nontender, nondistended, no guarding, no rigidity Extremities: No significant edema Neuro: No focal deficits, generalized weakness Psych: Cooperative, normal mood Results & Data Results & Data Vital Signs (Past 12 Hours) Vital Signs Temp Pulse Pulse Resp BP Pulse Ox O2 Del Method 12/24/23 12:25 79 12/24/23 12:21 36.3 C L 70 20 89/56 L 94 Room Air 12/24/23 07:11 63 12/24/23 05:38 92 H 16 114/54 L 100 Room Air 12/24/23 04:46 Nasal Cannula 12/24/23 04:46 61 16 93/66 L 96 Room Air 12/24/23 04:43 61 16 93/66 L 96 Room Air 12/24/23 03:40 61 18 93/65 L 97 Room Air O2 Flow Rate 12/24/23 12:25 12/24/23 12:21 12/24/23 07:11 12/24/23 05:38 12/24/23 04:46 2 12/24/23 04:46 12/24/23 04:43 12/24/23 03:40 Diagnostic Findings Reviewed imaging, laboratory and diagnostic studies. Pertinent findings as below. Hemoglobin 7.6 significant decrease, Admission hemoglobin 10.3 Lactic acid 4.8 Critical Care Time 46 minutes care of patient at bedside, reviewing records, communication with medical team
[2023-12-24 15:17] LABS: Adenovirus F 40/41 PCR Not Detected (NotDetected); Astrovirus PCR Not Detected (NotDetected); Campylobacter PCR Not Detected (NotDetected); Cryptosporidium PCR Not Detected (NotDetected); Cyclospora cayetanensis PCR Not Detected (NotDetected); Entamoeba histolytica PCR Not Detected (NotDetected); Enteroaggregative E.coli(EAEC) Not Detected (NotDetected); Enteropathogenic E.coli (EPEC) Not Detected (NotDetected); Enterotoxigenic E.coli (ETEC) Not Detected (NotDetected); Giardia lamblia PCR Not Detected (NotDetected); Norovirus GI/GII PCR Not Detected (NotDetected); Plesiomonas shigelloides PCR Not Detected (NotDetected); Rotavirus A PCR Not Detected (NotDetected); Salmonella PCR Not Detected (NotDetected); Sapovirus PCR Not Detected (NotDetected); Shiga-like Toxin E.coli (STEC) Not Detected (NotDetected); Shigella/Enteroinvasive E.coli Not Detected (NotDetected); Vibrio cholerae PCR Not Detected (NotDetected); Vibrio species PCR Not Detected (NotDetected); Yersinia enterocolitica PCR Not Detected (NotDetected)
[2023-12-24 15:19] LABS: Hematocrit (blood only) 21.1 % (42.0-52.0); Hemoglobin 6.4 g/dl (14.0-18.0)
[2023-12-24 19:18] LABS: Hematocrit (blood only) 27.1 % (42.0-52.0); Hemoglobin 8.5 g/dl (14.0-18.0)
[2023-12-24] MEDS: ATORVASTATIN 40 MG TAB PO SCH (21:34)
[2023-12-24 23:05] LABS: Hematocrit (blood only) 21.6 % (42.0-52.0); Hemoglobin 6.9 g/dl (14.0-18.0)
[2023-12-24] MEDS: dexAMETHasone 4 MG in SYRINGE 0 ML IV ONE (23:37)
[2023-12-25] MEDS: LOPERAMIDE HCL 2 MG CAP PO PRN (01:12)
[2023-12-25 06:12] LABS: Hematocrit (blood only) 27.4 % (42.0-52.0); Mean Corpuscular Hemoglobin 27.8 pg (25.0-34.0); Mean Corpuscular Hgb Conc 32.8 g/dL (32.0-36.0); Mean Corpuscular Volume 84.6 fL (80.0-100.0); Platelet Count 140 K/uL (130-400); RDW Coefficient of Variation 15.4 % (11.5-14.5); RDW Standard Deviation 46.7 fL (36.4-46.3); Red Blood Count 3.24 M/uL (4.70-6.10)
[2023-12-25 06:20] LABS: BUN Creatinine Ratio 38.5 (10-20); Calcium 7.5 mg/dl (8.6-10.3); Creatinine Clr Calc Pharmacy 46.5 ml/min; Est GFR (African American) 80.9 ml/min; Est GFR (Non-African American) 69.8 ml/min; Magnesium 1.7 mg/dl (1.7-2.4); Potassium 4.6 mmol/L (3.5-5.1)
[2023-12-25] MEDS ORDERED: predniSONE 5 MG TAB PO SCH (09:00)
--- NOTE | 2023-12-25 10:22 | Gastroenterology Progress Note ---
Date of Service December 25, 2023 Assessment & Plan (1) Acute GI bleeding: Plan: Suspected diverticular bleeding, but cannot exclude underlying malignancy. Patient received 3 units PRBCs. H/H 9.0/27.4 at present. -Continue to monitor H/H -Continue to monitor vitals -Continue to monitor for ongoing GI bleeding, though would expect if diverticular bleeding it would stop spontaneously -Not currently an ideal colonoscopy candidate given diverticulitis, however Dr. Traylor discussed with patient and family evaluating with a colonoscopy in the morning if he were to continue to bleed. We will prep him overnight in case this is needed. (2) Diverticulitis: Plan: -Continue liquid diet for now; eventual transition to low residue when able -Continue IV antibiotics Admission and Anticipated Discharge Date Admission Date: December 24, 2023 Subjective Patient is an 88 yo male with mild sigmoid diverticulitis and suspected diverticular bleeding. He received a total of 3 units PRBCs yesterday due to anemia. His bleeding has slowed this morning and H/H currently holding at 9.0/27.4. He denies any abdominal pain. He continues on IV antibiotics and a clear liquid diet. Review of Systems Constitutional: no fever and no chills Respiratory: no cough and no dyspnea Cardiovascular: no chest pain Gastrointestinal: + abdominal pain and + blood in stools ( improving) Physical Exam Constitutional: well developed Respiratory: normal respiratory effort Gastrointestinal (Abdomen): normal bowel sounds, soft, nontender, no hepatosplenomegaly Psychiatric: Orientation: alert and oriented x 3 Results & Data Results & Data Vital Signs (Past 12 Hours) Vital Signs Temp Pulse Pulse Resp BP BP Pulse Ox 12/25/23 07:09 36.3 C L 70 16 115/71 98 12/25/23 06:08 36.1 C L 74 16 147/63 H 98 12/25/23 05:57 73 12/25/23 05:08 36.5 C 76 14 137/79 98 12/25/23 04:38 36.8 C 78 16 130/98 98 12/25/23 04:23 37.1 C 71 16 131/71 96 12/25/23 04:01 36.8 C 77 16 123/77 98 12/25/23 03:39 36.8 C 69 16 120/70 97 12/25/23 02:39 37.0 C 78 16 132/76 97 12/25/23 01:39 36.7 C 84 16 105/66 98 12/25/23 01:09 74 16 107/66 98 12/25/23 00:54 36.8 C 86 16 117/72 100 12/25/23 00:33 36.6 C 83 16 97/60 L 99 12/24/23 22:22 36.7 C 91 H 16 96/59 L 96 O2 Del Method 12/25/23 07:09 12/25/23 06:08 12/25/23 05:57 12/25/23 05:08 12/25/23 04:38 12/25/23 04:23 12/25/23 04:01 12/25/23 03:39 12/25/23 02:39 12/25/23 01:39 12/25/23 01:09 12/25/23 00:54 12/25/23 00:33 12/24/23 22:22 Room Air PG Care Time/CCT Total # of Minutes Spent Total Time Spent with Patient: Total time spent is greater than 50% in coordination of care (as documented) at patient's floor/unit and/or counseling patient: Coding Level of Care Code 82716 SUB INP/OBS CARE 3/50MIN Diagnoses Acute GI bleeding K92.2 Diverticulitis K57.92
[2023-12-25 10:35] LABS: Hematocrit (blood only) 26.1 % (42.0-52.0); Hemoglobin 8.8 g/dl (14.0-18.0)
--- NOTE | 2023-12-25 13:18 | Hospitalist Progress Note ---
Date of Service December 25, 2023 Assessment & Plan (1) Acute blood loss anemia: (2) Diverticular hemorrhage: (3) Diverticulitis: (4) Lactic acidosis: (5) Chronic diastolic heart failure: (6) Paroxysmal atrial fibrillation: (7) Diabetes mellitus, type 2: (8) Chronic renal disease, stage III: Plan Patient with acute blood loss anemia most likely due to diverticular hemorrhage along with acute diverticulitis Continue to monitor hemoglobin, transfuse PRBCs as needed Monitor for volume overload, patient may need Lasix if needs any additional PRBCs Continue IV antibiotics for diverticulitis GI recommendations reviewed Phone update to patient's son Vinod Anticipate discharge back to [facility] when stabilized Admission and Anticipated Discharge Date Admission Date: December 24, 2023 Subjective Patient states he is feeling improved with PRBCs. No lightheadedness or dizziness. No chest pain or shortness of breath. Physical Exam Physical Exam: Constitutional: Alert, less pale, no acute distress HEENT: Mucous membranes moist. Lungs: Clear to auscultation, decreased, no rales at bases CV: S1-S2, regular Abdomen: Soft, nontender, nondistended Extremities: No significant edema Neuro: No focal deficits, generalized weakness Psych: Cooperative, normal mood Results & Data Results & Data Vital Signs (Past 12 Hours) Vital Signs Temp Pulse Pulse Resp BP BP BP 12/25/23 12:37 36.8 C 70 18 121/64 12/25/23 10:53 36.8 C 64 16 107/66 12/25/23 07:09 36.3 C L 70 16 115/71 12/25/23 06:08 36.1 C L 74 16 147/63 H 12/25/23 05:57 73 12/25/23 05:08 36.5 C 76 14 137/79 12/25/23 04:38 36.8 C 78 16 130/98 12/25/23 04:23 37.1 C 71 16 131/71 12/25/23 04:01 36.8 C 77 16 123/77 12/25/23 03:39 36.8 C 69 16 120/70 12/25/23 02:39 37.0 C 78 16 132/76 12/25/23 01:39 36.7 C 84 16 105/66 Pulse Ox O2 Del Method 12/25/23 12:37 97 Room Air 12/25/23 10:53 98 Room Air 12/25/23 07:09 98 12/25/23 06:08 98 12/25/23 05:57 12/25/23 05:08 98 12/25/23 04:38 98 12/25/23 04:23 96 12/25/23 04:01 98 12/25/23 03:39 97 12/25/23 02:39 97 12/25/23 01:39 98 Diagnostic Findings Reviewed imaging, laboratory and diagnostic studies. Pertinent findings as below. Hemoglobin 8.8 after transfusion total 3 units packed red blood cells
[2023-12-25 15:23] LABS: Hematocrit (blood only) 24.7 % (42.0-52.0); Hemoglobin 8.5 g/dl (14.0-18.0)
[2023-12-25] MEDS: LAVAGE SOLUTION 4000ML PO SCH (18:13)
[2023-12-25] MEDS: ACETAMINOPHEN 325 MG TAB PO PRN (20:24)
[2023-12-25 21:30] LABS: Hematocrit (blood only) 25.9 % (42.0-52.0); Hemoglobin 8.6 g/dl (14.0-18.0)
--- NOTE | 2023-12-25 22:09 | Electrocardiogram Report ---
Test Reason : Blood Pressure : */* mmHG Vent. Rate : 76 BPM Atrial Rate : 76 BPM P-R Int : 174 ms QRS Dur : 94 ms QT Int : 438 ms P-R-T Axes : * -19 102 degrees QTcB Int : 492 ms Normal sinus rhythm Minimal voltage criteria for LVH, may be normal variant Nonspecific T wave abnormality Prolonged QT Abnormal ECG When compared with ECG of 20-Aug-2023 18:18, Premature atrial complexes are no longer Present T wave amplitude has increased in Anterior leads Confirmed by Leon Hall ([id number]) on 12/25/2023 10:09:23 PM Referred By: [facility] Confirmed By: Leon Hall
--- NOTE | 2023-12-25 22:10 | Electrocardiogram Report ---
Test Reason : Blood Pressure : */* mmHG Vent. Rate : 67 BPM Atrial Rate : 67 BPM P-R Int : 196 ms QRS Dur : 94 ms QT Int : 454 ms P-R-T Axes : 7 -11 142 degrees QTcB Int : 479 ms Normal sinus rhythm Nonspecific T wave abnormality Prolonged QT Abnormal ECG When compared with ECG of 23-Dec-2023 22:47, Nonspecific T wave abnormality is now Present in Anterolateral leads Confirmed by Leon Hall ([id number]) on 12/25/2023 10:10:07 PM Referred By: [facility] Confirmed By: Leon Hall
[2023-12-26 06:35] LABS: Hematocrit (blood only) 25.2 % (42.0-52.0); Hemoglobin 8.5 g/dl (14.0-18.0); Mean Corpuscular Hemoglobin 28.2 pg (25.0-34.0); Mean Corpuscular Hgb Conc 33.7 g/dL (32.0-36.0); Mean Corpuscular Volume 83.7 fL (80.0-100.0); Mean Platelet Volume 10.5 fL (9.4-12.4); Platelet Count 113 K/uL (130-400); RDW Coefficient of Variation 15.4 % (11.5-14.5); RDW Standard Deviation 46.8 fL (36.4-46.3); Red Blood Count 3.01 M/uL (4.70-6.10); White Blood Count 12.74 K/ul (4.8-10.8)
[2023-12-26 06:58] LABS: BUN Creatinine Ratio 30.7 (10-20); Calcium 7.2 mg/dl (8.6-10.3); Creatinine Clr Calc Pharmacy 59.9 ml/min; Est GFR (African American) 94.3 ml/min; Est GFR (Non-African American) 81.3 ml/min; Magnesium 1.7 mg/dl (1.7-2.4); Potassium 3.2 mmol/L (3.5-5.1)
--- NOTE | 2023-12-26 07:42 | Hospitalist Progress Note ---
Date of Service December 26, 2023 Assessment & Plan (1) Acute blood loss anemia: (2) Diverticular hemorrhage: (3) Diverticulitis: (4) Lactic acidosis: (5) Chronic diastolic heart failure: (6) Paroxysmal atrial fibrillation: (7) Diabetes mellitus, type 2: (8) Chronic renal disease, stage III: Plan Mr Salvador is an 88-year-old male with past med history significant for type 2 diabetes, chronic kidney disease stage III, history of CAD, hypertension, paroxysmal atrial fibrillation, chronic diastolic CHF, chronic venous sufficiency of lower extremity, protein calorie malnutrition, inflammatory polyarthropathy, monoclonal paraproteinemia who is admitted for acute on chronic anemia. Patient required 3 UPRBC this admission with stable hgb at 8.5 Pending colonoscopy #Acute on chronic anemia, c/f LGIB #Abnormal CT, ?diverticulitis Continue to monitor hemoglobin, transfuse PRBCs as needed <7.0 hgb Continue IV abx Monitor for volume overload, patient may need Lasix if needs any additional PRBCs GI recommendations reviewed Anticipate discharge back to [facility] care when stabilized trend cbc #Chronic heart failure with preserved EF, EF 65-70% 08/2023 #Obstructive Coronary Artery Disease s/p MARY 2011 #History of AMI -Hold ASA -Continue statin -Hold Coreg for now, resume as able -Hold Jardiance,r resume as able -Hold Lasix (60mg/40mg alternating every other day), monitor fluid status #Paroxysmal A-fib Not on anticoagulation because of GI bleed On sotalol and Coreg and aspirin -Resume ASA as able -Continue sotalol -Hold coreg in interim due to relative hypotension -Replace lytes, K>4, mag >2, phos >3 #History of inflammatory polyarthritis On prednisone #CKD stage III stable, avoid nephrotoxic agents #Leukocytosis *downtrending 2/2 GIB v diverticulitis starting Downtrending #History of monoclonal paraproteinemia Follows with heme-onc #Type 2 diabetes Hold home p.o. medications Sliding scale Will monitor DVT prophylaxis SCDs Disposition bed hold at [facility] care Admission and Anticipated Discharge Date Admission Date: December 24, 2023 Subjective Evaluated prior to C-scope Denies any chest pain, abdominal pain, or other acute concerns Hgb stable at 8.5 this am Physical Exam Constitutional: WD/WN, vitals as above Respiratory: normal respiratory effort, lungs clear to auscultation Cardiovascular: RRR, no murmur, no edema Gastrointestinal (Abdomen): normal bowel sounds, soft, nontender, no hepatosplenomegaly Neurologic: PERRL, EOMI, accommodation nl, no face palsy, no dysarthria Results & Data Results & Data Vital Signs (Past 12 Hours) Vital Signs Temp Pulse Pulse Resp BP BP Pulse Ox 12/26/23 03:40 36.6 C 72 17 107/65 99 12/25/23 23:00 36.2 C L 62 17 120/67 99 12/25/23 21:54 51 L 12/25/23 19:45 36.5 C 74 17 147/76 H 98 O2 Del Method 12/26/23 03:40 Room Air 12/25/23 23:00 Room Air 12/25/23 21:54 12/25/23 19:45 Room Air Laboratory Results Short CBC 12/25/23 12/25/23 12/25/23 Range/Units 10:10 14:50 21:11 WBC (4.8-10.8) K/ul Hgb 8.8 L 8.5 L 8.6 L (14.0-18.0) g/dl Hct 26.1 L 24.7 L 25.9 L (42.0-52.0) % Plt Count (130-400) K/uL 12/26/23 Range/Units 05:43 WBC 12.74 H (4.8-10.8) K/ul Hgb 8.5 L (14.0-18.0) g/dl Hct 25.2 L (42.0-52.0) % Plt Count 113 L (130-400) K/uL BMP 12/26/23 05:43 Sodium 138 Potassium 3.2 L D Chloride 105 Carbon Dioxide 26 BUN 23 Creatinine 0.75 Glucose 79 Calcium 7.2 L Medications Administered Home Medications Medication Instructions Recorded Confirmed Last Taken albuterol sulfate 90 mcg/actuation 2 inh inhalation UD PRN Shortness 06/04/18 12/24/23 06/18/18 breath activated powder inhaler Of Breath Or Wheezing aspirin 81 mg tablet,delayed 81 mg PO QAM 06/04/18 12/24/23 12/23/23 release atorvastatin 80 mg tablet 80 mg PO HS 06/04/18 12/24/23 12/23/23 multivitamin-ferrous 1 tab PO DAILY 09/03/18 12/24/23 12/23/23 fumarate-folic acid 18 mg-400 mcg tablet (Centrum) carvedilol 12.5 mg tablet 12.5 mg PO BID 06/13/22 12/24/23 12/23/23 nitroglycerin 0.4 mg sublingual 0.4 mg sublingual DIRECTED PRN 06/13/22 12/24/23 Unknown tablet Chest Pain sotalol 80 mg tablet 40 mg PO BID 06/13/22 12/24/23 12/23/23 terazosin 2 mg capsule 2 mg PO HS 06/13/22 12/24/23 12/23/23 coenzyme Q10 400 mg capsule 400 mg PO DAILY 02/26/23 12/24/23 12/23/23 Metamucil 4 g PO DAILY 05/28/23 12/24/23 12/23/23 finasteride 5 mg tablet 5 mg PO QAM 05/28/23 12/24/23 12/23/23 furosemide 40 mg tablet (Lasix) 40 mg PO Q OTHER DAY 05/28/23 12/24/23 12/22/23 furosemide 40 mg tablet 60 mg PO Q OTHER DAY 08/20/23 12/24/23 12/23/23 pantoprazole 40 mg tablet,delayed 40 mg PO DAILY #30 tabs 08/30/23 12/24/23 12/23/23 release acetaminophen 500 mg capsule 1,000 mg PO TID PRN pain/fever 12/24/23 12/24/23 Unknown acetaminophen 500 mg tablet 500 mg PO BID 12/24/23 12/24/23 12/23/23 empagliflozin 25 mg tablet 12.5 mg PO DAILY 12/24/23 12/24/23 12/23/23 (Jardiance) empagliflozin 25 mg tablet 12.5 mg PO DAILY 12/24/23 12/24/23 12/23/23 (Jardiance) insulin glargine 100 unit/mL 12 unit subcut DAILY 12/24/23 12/24/23 12/23/23 subcutaneous solution (Lantus U-100 Insulin) insulin lispro 100 unit/mL See Rx Instructions .Route .COMPLEX 12/24/23 12/24/23 12/23/23 subcutaneous solution (Humalog U-100 Insulin) levothyroxine 50 mcg tablet 50 mcg PO DAILY 12/24/23 12/24/23 12/23/23 loperamide 2 mg tablet (Imodium 2 mg PO Q2H PRN Diarrhea 12/24/23 12/24/23 Unknown A-D) magnesium hydroxide 400 mg/5 mL 30 ml PO DAILY PRN Constipation 12/24/23 12/24/23 Unknown oral suspension (Milk of Magnesia) potassium chloride 20 mEq 20 meq PO QAM 12/24/23 12/24/23 12/23/23 tablet,extended release(part/cryst) potassium chloride 20 mEq 20 meq PO QAM 12/24/23 12/24/23 12/23/23 tablet,extended release(part/cryst) prednisone 5 mg tablet 5 mg PO QAM 12/24/23 12/24/23 12/23/23 Active Medications Generic Name Dose Route Start Last Admin Trade Name Freq PRN Reason Stop Dose Admin Acetaminophen 650 mg 12/24/23 00:59 12/25/23 20:24 Acetaminophen 325 Mg Tab PO 01/23/24 00:58 650 mg QID PRN Administration pain/fever Atorvastatin Calcium 80 mg 12/24/23 21:00 12/25/23 20:20 Atorvastatin 40 Mg Tab PO 01/23/24 20:59 80 mg HS ANNALISA Administration Finasteride 5 mg 12/24/23 09:00 12/25/23 08:47 Finasteride 5 Mg Tab PO 01/23/24 08:59 5 mg QAM ANNALISA Administration Piperacillin Sod/Tazobactam Sod 4.5 gm in 100 mls @ 25 mls/hr 12/24/23 06:00 12/26/23 05:48 Zosyn IV 12/28/23 05:59 25 mls/hr Q8H ANNALISA Administration Sodium Chloride 500 mls @ 15 mls/hr 12/26/23 07:30 12/26/23 09:05 Nss IV 12/27/23 07:29 15 mls/hr .Q24H ANNALISA Administration Insulin Aspart 0 units 12/24/23 03:00 12/26/23 08:39 Insulin Aspart Per Unit Charge SC 01/23/24 02:59 Not Given ACHS ANNALISA Insulin Glargine 5 units 12/24/23 09:00 12/25/23 22:04 Lantus Per Unit Charge SQ 01/23/24 08:59 Not Given BID ANNALISA Levothyroxine Sodium 50 mcg 12/24/23 06:30 12/26/23 05:53 Levothyroxine Sodium 50 Mcg Tablet PO 01/23/24 06:29 50 mcg DAILYBB ANNALISA Administration Loperamide HCl 2 mg 12/25/23 00:06 12/25/23 01:12 Loperamide Hcl 2 Mg Cap PO 01/24/24 00:05 2 mg UD PRN Administration Diarrhea Sotalol HCl 40 mg 12/24/23 09:00 12/25/23 20:19 Sotalol Hcl 80 Mg Tab PO 01/23/24 08:59 40 mg BID ANNALISA Administration
--- NOTE | 2023-12-26 08:55 | Anesthesiology Consultation ---
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 Borjas - Pepe Borjas MD Height/Weight Height: 5 ft 7 in Weight: 63.458 kg Allergies Allergy/AdvReac Type Severity Reaction Status Date / Time atenolol Allergy Unknown Patient Verified 08/20/23 22:28 told "never to take again" candesartan [From Atacand] AdvReac Intermediate Hyperkalemi Verified 08/20/23 22:28 a lisinopril AdvReac Intermediate Increased Verified 08/20/23 22:28 creatinine, hypotension Medications Home Medications Medication Instructions Recorded Confirmed Last Taken albuterol sulfate 90 mcg/actuation 2 inh inhalation UD PRN Shortness 06/04/18 12/24/23 06/18/18 breath activated powder inhaler Of Breath Or Wheezing aspirin 81 mg tablet,delayed 81 mg PO QAM 06/04/18 12/24/23 12/23/23 release atorvastatin 80 mg tablet 80 mg PO HS 06/04/18 12/24/23 12/23/23 multivitamin-ferrous 1 tab PO DAILY 09/03/18 12/24/23 12/23/23 fumarate-folic acid 18 mg-400 mcg tablet (Centrum) carvedilol 12.5 mg tablet 12.5 mg PO BID 06/13/22 12/24/23 12/23/23 nitroglycerin 0.4 mg sublingual 0.4 mg sublingual DIRECTED PRN 06/13/22 12/24/23 Unknown tablet Chest Pain sotalol 80 mg tablet 40 mg PO BID 06/13/22 12/24/23 12/23/23 terazosin 2 mg capsule 2 mg PO HS 06/13/22 12/24/23 12/23/23 coenzyme Q10 400 mg capsule 400 mg PO DAILY 02/26/23 12/24/23 12/23/23 Metamucil 4 g PO DAILY 05/28/23 12/24/23 12/23/23 finasteride 5 mg tablet 5 mg PO QAM 05/28/23 12/24/23 12/23/23 furosemide 40 mg tablet (Lasix) 40 mg PO Q OTHER DAY 05/28/23 12/24/23 12/22/23 furosemide 40 mg tablet 60 mg PO Q OTHER DAY 08/20/23 12/24/23 12/23/23 pantoprazole 40 mg tablet,delayed 40 mg PO DAILY #30 tabs 08/30/23 12/24/23 12/23/23 release acetaminophen 500 mg capsule 1,000 mg PO TID PRN pain/fever 12/24/23 12/24/23 Unknown acetaminophen 500 mg tablet 500 mg PO BID 12/24/23 12/24/23 12/23/23 empagliflozin 25 mg tablet 12.5 mg PO DAILY 12/24/23 12/24/23 12/23/23 (Jardiance) empagliflozin 25 mg tablet 12.5 mg PO DAILY 12/24/23 12/24/23 12/23/23 (Jardiance) insulin glargine 100 unit/mL 12 unit subcut DAILY 12/24/23 12/24/23 12/23/23 subcutaneous solution (Lantus U-100 Insulin) insulin lispro 100 unit/mL See Rx Instructions .Route .COMPLEX 12/24/23 12/24/23 12/23/23 subcutaneous solution (Humalog U-100 Insulin) levothyroxine 50 mcg tablet 50 mcg PO DAILY 12/24/23 12/24/23 12/23/23 loperamide 2 mg tablet (Imodium 2 mg PO Q2H PRN Diarrhea 12/24/23 12/24/23 Unknown A-D) magnesium hydroxide 400 mg/5 mL 30 ml PO DAILY PRN Constipation 12/24/23 12/24/23 Unknown oral suspension (Milk of Magnesia) potassium chloride 20 mEq 20 meq PO QAM 12/24/23 12/24/23 12/23/23 tablet,extended release(part/cryst) potassium chloride 20 mEq 20 meq PO QAM 12/24/23 12/24/23 12/23/23 tablet,extended release(part/cryst) prednisone 5 mg tablet 5 mg PO QAM 12/24/23 12/24/23 12/23/23 Active Medications Generic Name Dose Route Start Last Admin Trade Name Freq PRN Reason Stop Dose Admin Acetaminophen 650 mg 12/24/23 00:59 12/25/23 20:24 Acetaminophen 325 Mg Tab PO 01/23/24 00:58 650 mg QID PRN Administration pain/fever Atorvastatin Calcium 80 mg 12/24/23 21:00 12/25/23 20:20 Atorvastatin 40 Mg Tab PO 01/23/24 20:59 80 mg HS ANNALISA Administration Finasteride 5 mg 12/24/23 09:00 12/25/23 08:47 Finasteride 5 Mg Tab PO 01/23/24 08:59 5 mg QAM ANNALISA Administration Piperacillin Sod/Tazobactam Sod 4.5 gm in 100 mls @ 25 mls/hr 12/24/23 06:00 12/26/23 05:48 Zosyn IV 12/28/23 05:59 25 mls/hr Q8H ANNALISA Administration Sodium Chloride 500 mls @ 15 mls/hr 12/26/23 07:30 12/26/23 09:05 Nss IV 12/27/23 07:29 15 mls/hr .Q24H ANNALISA Administration Insulin Aspart 0 units 12/24/23 03:00 12/26/23 08:39 Insulin Aspart Per Unit Charge SC 01/23/24 02:59 Not Given ACHS ANNALISA Insulin Glargine 5 units 12/24/23 09:00 12/25/23 22:04 Lantus Per Unit Charge SQ 01/23/24 08:59 Not Given BID ANNALISA Levothyroxine Sodium 50 mcg 12/24/23 06:30 12/26/23 05:53 Levothyroxine Sodium 50 Mcg Tablet PO 01/23/24 06:29 50 mcg DAILYBB ANNALISA Administration Loperamide HCl 2 mg 12/25/23 00:06 12/25/23 01:12 Loperamide Hcl 2 Mg Cap PO 01/24/24 00:05 2 mg UD PRN Administration Diarrhea Sotalol HCl 40 mg 12/24/23 09:00 12/25/23 20:19 Sotalol Hcl 80 Mg Tab PO 01/23/24 08:59 40 mg BID ANNALISA Administration Past Family History Family History Mother Coronary heart disease, Onset Age: 63 of [place] CHF (congestive heart failure) Myocardial infarction Father CHF (congestive heart failure) Pneumonia Sister Coronary heart disease History of CABG Rheumatic heart disease Past Surgical History Surgical History History of cardiac cath 2012 > stent x1 Social History Smoking Status: Never smoker Do You Dip or Chew Tobacco: No Hx Alcohol Use: No alcohol intake frequency: other Hx Substance Use: No substance use type: does not use Physical Exam Vital Signs Last Vital Signs Temp 36.3 C L 12/26/23 08:30 Pulse 56 L 12/26/23 08:30 Resp 18 12/26/23 08:30 BP 131/64 12/26/23 08:30 Pulse Ox 95 12/26/23 08:30 O2 Del Method Room Air 12/26/23 08:30 O2 Flow Rate 2 12/24/23 04:46 Testing Laboratory Results 12/26/23 05:43 12/26/23 05:43 Urine Color Yellow 12/24/23 06:02 Urine Appearance Clear (Clear) 12/24/23 06:02 Urine pH 6.0 (4.5-7.5) 12/24/23 06:02 Ur Specific [place] > 1.045 (1.000-1.030) H 12/24/23 06:02 Urine Protein Negative (Negative) 12/24/23 06:02 Urine Glucose (UA) 3+ (Negative) H 12/24/23 06:02 Urine Ketones Negative (Negative) 12/24/23 06:02 Urine Nitrite Negative (Negative) 12/24/23 06:02 Ur Leukocyte Esterase Negative (Negative) 12/24/23 06:02 Urine WBC (Auto) 0-5 /hpf (0-5) 12/24/23 06:02 Urine RBC (Auto) 0-2 /hpf (0-2) 12/24/23 06:02 U Hyaline Cast (Auto) 0-2 /lpf (0-2) 12/24/23 06:02 U Epithel Cells (Auto) 0-2 /hpf (0-2) 12/24/23 06:02 Urine Bacteria (Auto) None Seen (None Seen) 12/24/23 06:02 Blood Type A Positive 12/23/23 23:47 Antibody Screen NEGATIVE 12/23/23 23:47 12/26/23 08:12 POC Glucose 95 Electrocardiogram Date: 12/25/23 Test Reason : Blood Pressure : */* mmHG Vent. Rate : 67 BPM Atrial Rate : 67 BPM P-R Int : 196 ms QRS Dur : 94 ms QT Int : 454 ms P-R-T Axes : 7 -11 142 degrees QTcB Int : 479 ms Normal sinus rhythm Nonspecific T wave abnormality Prolonged QT Abnormal ECG When compared with ECG of 23-Dec-2023 22:47, Nonspecific T wave abnormality is now Present in Anterolateral leads Confirmed by Leon Hall ([id number]) on 12/25/2023 10:10:07 PM Chest X-Ray Date: 08/20/23 FINDINGS: No pneumothorax. The heart remains mildly enlarged. A large hiatus hernia is again noted. Bibasilar linear densities persist and favor subsegmental atelectasis. Otherwise, no new focal lung consolidations to suggest a pneumonia. No evidence for pulmonary edema. No acute fractures identified. Advanced degenerative changes within the shoulders. There is a 7 cm soft tissue density superior to the left acromioclavicular joint. This is indeterminate but could be due to a fluid collection at the acromioclavicular joint related to chronic rotator cuff injury. This remains unchanged. IMPRESSION: No significant change compared to the prior study. No acute process. Echocardiogram Date: 08/24/23 EF: 65-70 LV Function: normal (hyperdynamic) RWMA: + none Other Findings: + LVH (mod) Valvular Disease: + MS (mild)
[2023-12-26] MEDS: SODIUM CHLORIDE 0.9% 500 ML IV SCH (09:05)
--- NOTE | 2023-12-26 09:40 | History & Physical Bridge Note ---
Date of Service December 26, 2023 History & Physical Bridge Note I have examined the patient, reviewed the History & Physical and in the interval since the performance of the History & Physical I have noted the following changes of clinical significance: no changes noted Patient notes that he had some dark stool at the beginning of his bowel prep, but then did not bleed further. H/H stable at 8.5/25.2 Patient has discussed with the attending instrument lens inspector the risk vs benefit of colonoscopy in his clinical situation and is proceeding today. Supervising Physician Co-Signing Physician Notes I examined the patient and reviewed patient's chart , laboratory data and imaging studies. I agree with with assessment and plan of care as suggested by advanced practice provider
--- NOTE | 2023-12-26 10:31 | GI REPORT ---
[facility] Patient: RADHA DICKSON : 1935 Sex at : Male Age: 88 Years Procedure: Colonoscopy Date: 12/26/2023 Attending Physician: Pepe Borjas MD Referring MD: Lauren Ly Md Indications: - Rectal bleeding Medications: - Monitored Anesthesia Care Complications: - No immediate complications. Estimated Blood Loss: - Estimated blood loss: None. Procedure: - The pediatric colonoscope was introduced through the anus and advanced to the cecum, identified by appendiceal orifice and ileocecal valve. - The colonoscopy was performed without difficulty. - The quality of the bowel preparation was excellent. - The patient tolerated the procedure well. Findings: - Skin tags were found on perianal exam. - Multiple large-mouthed and medium-mouthed diverticula were found in the entire colon. There was no evidence of diverticular bleeding. - A patchy area of mildly erythematous mucosa was found in the sigmoid colon. The appearance was suggestive of mild diverticulitis. - A medium (7-9 mm) polyp was found in the transverse colon. The polyp was sessile. The polyp was removed with a cold snare. Resection and retrieval were complete. - No other significant abnormalities were identified in a careful examination of the remainder of the colon. - There was no evidence of blood or active bleeding. Impression: - Perianal skin tags found on perianal exam. - Mild diverticulosis in the entire examined colon. There was no evidence of diverticular bleeding. - Erythematous mucosa in the sigmoid colon. - The appearance was suggestive of mild diverticulitis. - One medium (7-9 mm) polyp in the transverse colon, removed with a cold snare. Resected and retrieved. - There was no evidence of blood or active bleeding. Recommendation: Procedure Code(s): - 55773, Colonoscopy, flexible; with removal of tumor(s), polyp(s), or other lesion(s) by snare technique Diagnosis Code(s): - K62.5, Hemorrhage of anus and rectum - K63.89, Other specified diseases of intestine - D12.3, Benign neoplasm of transverse colon (hepatic flexure or splenic flexure) - K57.30, Diverticulosis of large intestine without perforation or abscess without bleeding - K64.4, Residual hemorrhoidal skin tags CPT(R) - 2023 copyright [employer]. All Rights Reserved. The CPT codes, CCI edits and ICD codes generated are intended as suggestions and were generated based on input data. These codes are preliminary and upon data coder operator review may be revised to meet current compliance and payer requirements. The provider is responsible for the final determination of appropriate codes, and modifiers. Pepe Borjas M.D., MD This document has been electronically signed. Note Initiated:12/26/2023 Note Completed:12/26/2023 10:30 AM \\[email or web address]\Provation\Results\LIVE\[id number]
[2023-12-26] MEDS: POTASSIUM CHLORIDE / WTR 10 MEQ/100 ML PLCT IV SCH (11:33)
[2023-12-26] MEDS: PROPOFOL IV EMULSION 10 MG/ML 20 ML VIAL IV ONE (11:33)
[2023-12-26] MEDS: ONDANSETRON INJ 2 MG/ML 2 ML VIAL ONE (11:33)
[2023-12-26] MEDS: LIDOCAINE 2% 2 ML VIAL/AMP(20MG/ML) INFIL ONE (11:33)
[2023-12-26] MEDS: PANTOprazole 40 MG TAB PO SCH (12:30)
--- NOTE | 2023-12-26 15:23 | Anesthesiology Progress Note ---
Date of Service December 26, 2023 Anesthesia Post Procedure Vital Signs Vital Signs: Temp Pulse Pulse Resp BP BP Pulse Ox 12/26/23 13:50 72 12/26/23 11:34 36.4 C L 58 L 18 149/61 H 97 12/26/23 11:04 61 16 146/58 H 100 12/26/23 10:49 48 L 16 121/91 100 12/26/23 10:34 63 16 171/106 H 99 12/26/23 09:00 36.2 C L 64 20 132/79 98 12/26/23 08:30 36.3 C L 56 L 18 131/64 95 12/26/23 05:34 49 L 12/26/23 03:40 36.6 C 72 17 107/65 99 12/25/23 23:00 36.2 C L 62 17 120/67 99 12/25/23 21:54 51 L 12/25/23 19:45 36.5 C 74 17 147/76 H 98 12/25/23 16:12 36.5 C 90 18 136/61 95 O2 Del Method 12/26/23 13:50 12/26/23 11:34 Room Air 12/26/23 11:04 Room Air 12/26/23 10:49 Room Air 12/26/23 10:34 Room Air 12/26/23 09:00 Room Air 12/26/23 08:30 Room Air 12/26/23 05:34 12/26/23 03:40 Room Air 12/25/23 23:00 Room Air 12/25/23 21:54 12/25/23 19:45 Room Air 12/25/23 16:12 Room Air Pain Intensity Abdomen: Pain Intensity: 6 Right Shoulder: Pain Intensity: 6 Transfer of Care Handoff Completed per policy Notes Mental Status: alert / awake / arousable and participated in evaluation Patient Amnestic to Procedure: Yes Nausea / Vomiting: adequately controlled Pain: adequately controlled Airway Patency, RR, SpO2: stable & adequate BP & HR: stable & adequate Hydration State: stable & adequate Anesthetic Complications: no major complications apparent
[2023-12-26] MEDS: DICLOFENAC SOD 1% GEL 100 GM TUBE EXT SCH (17:32)
[2023-12-26] MEDS: traMADol HCL 50 MG TABLET PO PRN (20:47)
[2023-12-27 07:41] LABS: Hematocrit (blood only) 25.9 % (42.0-52.0); Hemoglobin 8.5 g/dl (14.0-18.0); Mean Corpuscular Hemoglobin 28.3 pg (25.0-34.0); Mean Corpuscular Hgb Conc 32.8 g/dL (32.0-36.0); Mean Corpuscular Volume 86.3 fL (80.0-100.0); Mean Platelet Volume 11.1 fL (9.4-12.4); Platelet Count 76 K/uL (130-400); Platelet Estimate Decreased (Normal); RDW Coefficient of Variation 16.1 % (11.5-14.5); RDW Standard Deviation 50.4 fL (36.4-46.3); White Blood Count 13.88 K/ul (4.8-10.8)
[2023-12-27 09:16] LABS: Calcium 7.3 mg/dl (8.6-10.3); Magnesium 1.7 mg/dl (1.7-2.4); Potassium 3.1 mmol/L (3.5-5.1)
[2023-12-27 09:21] LABS: BUN Creatinine Ratio 22.1 (10-20); Creatinine Clr Calc Pharmacy 60.1 ml/min; Est GFR (African American) 93.2 ml/min; Est GFR (Non-African American) 80.5 ml/min; Phosphorus 2.6 mg/dl (2.5-4.9)
[2023-12-27 11:15] VITALS: BP 138/74; RESP 18; TEMP 97.9; O2SAT 93
[2023-12-27] MEDS: POTASSIUM CHLORIDE CRTAB 20 MEQ TABCR PO STA (11:59)
--- NOTE | 2023-12-27 12:40 | Discharge Summary ---
Discharge Summary Date of Service December 27, 2023 Principal Dx & Hospital Course #1 = Principal Diagnosis (1) Acute blood loss anemia: (2) Diverticular hemorrhage: (3) Diverticulitis: (4) Lactic acidosis: (5) Chronic diastolic heart failure: (6) Paroxysmal atrial fibrillation: (7) Diabetes mellitus, type 2: (8) Chronic renal disease, stage III: Plan Mr Salvador is an 88-year-old male with past med history significant for type 2 diabetes, chronic kidney disease stage III, history of CAD, hypertension, paroxysmal atrial fibrillation, chronic diastolic CHF, chronic venous sufficiency of lower extremity, protein calorie malnutrition, inflammatory polyarthropathy, monoclonal paraproteinemia who is admitted for acute on chronic anemia. Patient required 3 UPRBC this admission with stable hgb at 8.5. Patient underwe nt cscope with no clear sign of bleeding and s/p polypectomy. There were signs of diverticulitis. Patient placed on oral regimen after 4 days of IV zosyn. Hgb remained stable at 8.5. On day of discharge, patient was at baseline. Patient is a full assist and required transport to [facility] in ambulance. #Acute on chronic anemia, c/f LGIB #Abnormal CT, ?diverticulitis Continue to monitor hemoglobin, transfuse PRBCs as needed <7.0 hgb s/p IV zosyn, complete course on Augmentin -no clear source for bleed, recommended miralax over metamucil -Recommended close GI follow up #Chronic heart failure with preserved EF, EF 65-70% 08/2023 #Obstructive Coronary Artery Disease s/p MARY 2011 #History of AMI -Hold ASA for 1 week -Continue statin -resume Coreg for now, resume as able -resume Jardiance, -resume Lasix (60mg/40mg alternating every other day) #Paroxysmal A-fib Not on anticoagulation because of GI bleed On sotalol and Coreg and aspirin -Resume ASA in 1 week -Continue sotalol #History of inflammatory polyarthritis On prednisone, increase PPI BID #CKD stage III stable, avoid nephrotoxic agents #Leukocytosis *downtrending 2/2 GIB v diverticulitis starting Downtrending #History of monoclonal paraproteinemia Follows with heme-onc #Type 2 diabetes resume home medications Notes For Next Care Provider No clear course identified for bleeding severity, noted to have diverticulitis as possible contributing factor Medication Changes From Visit Protonix increased to BID Hold ASA for 1 week Augmentin for 6 more days for 10day course for diverticulitis PO probiotic daily Encouraged Miralax over metmucil iso diverticulitis Admission HPI Per Admitting Provider History obtained from patient, family, and records. Medical history significant for chronic diastolic heart failure (EF 65 to 70%, TTE 2023), CAD status post stent, mild , A-fib off anticoagulation secondary to risks, TIA, hypertension, hyperlipidemia, DM 2 insulin requiring, diverticulosis, chronic anemia (baseline hemoglobin 9-10), inflammatory arthritis on chronic steroid Rx, BPH, monoclonal gammopathy, past tobacco abuse. Last confinement August 2023 for gram-negative bacteremia. CT imaging showed possible cecal/sigmoid diverticulitis although patient without abdominal pain complaints. Patient completed cephalosporin course. Patient discharged to [facility] for rehab. Last night, patient noted to have achy lower abdominal pain associated with dark red blood stools. Patient with bilious emesis as per son. No chest pain, no SOB. No fever, no chills. IV Protonix and Zosyn administered at the ER. 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 Admission Exam Per Admitting Provider GENERAL: Slightly uncomfortable, chronically ill, slightly hard of hearing, no respiratory distress SKIN: Pallor, warm HEENT: Alopecia, pale palpebral conjunctivae, no ptosis, dry buccal mucosa NECK : Supple, no tenderness CHEST : Decreased breath sounds, no tenderness HEART : RRR, no obvious murmurs ABDOMEN: Abdominal distention, left-sided abdominal tenderness EXTREMITIES : No LE swelling/tenderness, no other conspicuous deformities noted NEUROLOGIC : Coherent, no facial asymmetry, slightly hard of hearing, gait and stance not assessed Discharge Exam Constitutional WD/WN, vitals as above Respiratory normal respiratory effort, lungs clear to auscultation Cardiovascular RRR, no murmur, no edema Gastrointestinal (Abdomen) normal bowel sounds, soft, nontender, no hepatosplenomegaly Neurologic PERRL, EOMI, accommodation nl, no face palsy, no dysarthria Updated Medication List Medication Instructions Recorded Confirmed Type albuterol sulfate 90 mcg/actuation 2 inh inhalation UD PRN Shortness 06/04/18 12/24/23 History breath activated powder inhaler Of Breath Or Wheezing aspirin 81 mg tablet,delayed 81 mg PO QAM 06/04/18 12/24/23 History release atorvastatin 80 mg tablet 80 mg PO HS 06/04/18 12/24/23 History multivitamin-ferrous 1 tab PO DAILY 09/03/18 12/24/23 History fumarate-folic acid 18 mg-400 mcg tablet (Centrum) carvedilol 12.5 mg tablet 12.5 mg PO BID 06/13/22 12/24/23 History nitroglycerin 0.4 mg sublingual 0.4 mg sublingual DIRECTED PRN 06/13/22 12/24/23 History tablet Chest Pain sotalol 80 mg tablet 40 mg PO BID 06/13/22 12/24/23 History terazosin 2 mg capsule 2 mg PO HS 06/13/22 12/24/23 History coenzyme Q10 400 mg capsule 400 mg PO DAILY 02/26/23 12/24/23 History finasteride 5 mg tablet 5 mg PO QAM 05/28/23 12/24/23 History furosemide 40 mg tablet (Lasix) 40 mg PO Q OTHER DAY 05/28/23 12/24/23 History furosemide 40 mg tablet 60 mg PO Q OTHER DAY 08/20/23 12/24/23 History acetaminophen 500 mg capsule 1,000 mg PO TID PRN pain/fever 12/24/23 12/24/23 History acetaminophen 500 mg tablet 500 mg PO BID 12/24/23 12/24/23 History empagliflozin 25 mg tablet 12.5 mg PO DAILY 12/24/23 12/24/23 History (Jardiance) insulin glargine 100 unit/mL 12 unit subcut DAILY 12/24/23 12/24/23 History subcutaneous solution (Lantus U-100 Insulin) insulin lispro 100 unit/mL See Rx Instructions .Route .COMPLEX 12/24/23 12/24/23 History subcutaneous solution (Humalog U-100 Insulin) levothyroxine 50 mcg tablet 50 mcg PO DAILY 12/24/23 12/24/23 History loperamide 2 mg tablet (Imodium 2 mg PO Q2H PRN Diarrhea 12/24/23 12/24/23 History A-D) magnesium hydroxide 400 mg/5 mL 30 ml PO DAILY PRN Constipation 12/24/23 12/24/23 History oral suspension (Milk of Magnesia) potassium chloride 20 mEq 20 meq PO QAM 12/24/23 12/24/23 History tablet,extended release(part/cryst) potassium chloride 20 mEq 20 meq PO QAM 12/24/23 12/24/23 History tablet,extended release(part/cryst) prednisone 5 mg tablet 5 mg PO QAM 12/24/23 12/24/23 History amoxicillin 875 mg-potassium 1 tab PO Q8H 6 days #18 tabs 12/27/23 Rx clavulanate 125 mg tablet lactobacillus combination no.4 3 3,000 mmu cells PO DAILY #30 caps 12/27/23 Rx billion cell capsule (Probiotic) pantoprazole 40 mg tablet,delayed 40 mg PO BID #60 tabs 12/27/23 Rx release polyethylene glycol 3350 17 4 g PO DAILY #119 grams 12/27/23 Rx gram/dose oral powder (Miralax) Hospital Stay Data Consultations 12/24/23 00:04 ED Decision to Admit Stat 12/24/23 01:02 Consult Gastroenterology Routine Procedures Performed Operation Date: 12/26/23 17:10 Actual Procedures p Colonoscopy Polypectomy - Pepe Borjas MD Diagnostic Imagining Performed 12/23/23 22:36 CT Abd and Pelvis [CT abd pelvis IV con only] Stat Pending Results Patient Have Any Pending Studies at Discharge: No Discharge Instructions Given to Patient (Per Discharging Provider) You were admitted for concerns of gastrointestinal bleeding and noted to have acute diverticulitis You will complete a course of antibiotics -Augmentin 875 mg three times a day for 6 more days Please start a probiotic daily while on antibiotics Please stop metamucil and start miralax 1-2 capfuls to prevent constipation Please resume aspirin in 1 week Please follow up with GI soon for close monitoring and discussion of any further evaluations for bleeding . Total Time Total Time Spent Total Time Spent (In Minutes): 45
[2023-12-27] MEDS: AMOXICILLIN/CLAVULANATE 875 MG TAB PO SCH (13:27)
[2023-12-27 15:28] VITALS: PULSE 86
== END 2023-12-27 15:40 | DRG 378 ==
LOC: ED 22:25 → SUATTDRO 12-24 00:55 → EDINP 12-24 00:55 → 2N 12-24 01:53

== ENCOUNTER 2024-01-23 10:48 | Inpatient (IN) ==
--- NOTE | 2024-01-23 11:24 | Emergency Department Note ---
Impression & Plan Parotitis, Cellulitis ED Provider Note NAME: RADHA DICKSON AGE: 88 SEX: M : 1935 ARRIVES VIA: Ambulance INFORMANT: Patient, ED PROVIDER(S): Omkar Puente MD CHIEF COMPLAINT: Facial swelling/pain HPI: This is a 88-year-old male present for 1 week history of facial swelling. He has noted progressive worsening of his facial swelling. Started on prednisone and antibiotic recently by staff at [facility]. There is no significant improvement so patient was sent to the ER. Poorly patient has been confused as per nursing notes at his facility. Otherwise patient notes no difficulty eating, he reports being edentulous. Denies any new medication. ROS: See above HPI for pertinent positives & negatives. A total of 10 systems reviewed and were otherwise negative. PAST MEDICAL HISTORY: See Below PAST SURGICAL HISTORY: See Below FAMILY HISTORY: See Below SOCIAL HISTORY: See Below HOME MEDICATIONS: See Below ALLERGIES: See Below VITALS: See Below PHYSICAL EXAMINATION: General: resting comfortably in no acute distress Head: Normocephalic, large left facial swelling with overlying erythema, tense, no fluctuance Eyes: Normal inspection, extraocular muscles intact Ear, nose, throat: Normal external exam Neck: Large left facial swelling with overlying erythema, tense Respiratory: lungs clear to auscultation bilaterally Cardiovascular: Regular rate/rhythm, no murmur GI: soft, nontender, no guarding or rebound Extremities: nontender, moves all extremities Neuro: The patient awake and alert, appropriately conversive, no focal deficits, symmetric faces Skin: Warm, dry, and intact MEDICAL DECISION MAKING: This 88-year-old male presenting for 1 week history of facial swelling. Patient has a TO be a large swelling consistent with either abscess, parotitis and cellulitis. At this time there is no clear airway involvement patient is phonating well, no difficulty tolerating secretions. I did ask patient directly if he were to get worse, whether he want to be intubated. He is a DNR/DNI but for this acute illness, he would want intubation. -Labs reviewed showing a significant leukocytosis to almost 19. Otherwise hypokalemia is noted. -Patient vital signs reviewed and does not appear outwardly septic, he is not tachycardic, hypotensive. -CT imaging of the face does reveal a severe left-sided parotitis with surrounding cellulitis and inflammatory changes extending into the lower neck. Large calcified sialolith on the right submandibular duct. -After discussion with ED pharmacist, Khari, decision to do antibiotics will include Unasyn and daptomycin -Patient will require admission at this time for IV antibiotics. -Discussed care with Dr. Rodgers Differential diagnosis: Peritonitis, sialolithiasis, sialoadenitis, cellulitis, abscess, Jameel angina ER treatment provided: See below Independent History obtained from: Son Diagnostics interpreted by me: ECG: None Cardiac Monitoring: An order was placed for continuous cardiac monitoring. The monitor shows a rate of 63 with sinus rhythm. Laboratory studies: As stated above and show below. Imaging studies: See below. Past Med/Surg History Problem List Cellulitis (Acute) Parotitis (Acute) Chronic anemia Parotitis Diverticular hemorrhage Lactic acidosis Acute blood loss anemia Abdominal pain (Acute) Acute GI bleeding (Acute) Diverticulitis (Acute) Hospital acquired PNA input by error, wrong diagnosis Encounter for pre-operative examination Urinary symptom or sign Penile ulcer Balanitis Fall Left-sided chest wall pain (Acute) Ambulatory dysfunction (Acute) Leukocytosis (Acute) Hernia, hiatal (Acute) Acute on chronic diastolic (congestive) heart failure Paroxysmal atrial fibrillation Chronic diastolic heart failure Leukocytosis (Acute) GI bleed (Acute) Iron deficiency anemia (Acute) Diverticulitis (Acute) Elevated troponin (Acute) Symptomatic anemia (Acute) Diverticulitis Lower GI bleed Symptomatic anemia Greater trochanteric bursitis of both hips Elevated troponin I level CHF (congestive heart failure) (Acute) Atrial fibrillation, rapid (Acute) DVT prophylaxis Elevated troponin Chronic diastolic CHF (congestive heart failure) Atrial fibrillation with RVR Inflammatory polyarthropathy Atrial fibrillation Follows with [facility] cardiology CAD (coronary artery disease) (Chronic) 2011- MARY to LAD BPH (benign prostatic hyperplasia) (Chronic) 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 Zhu Osteoarthritis (Chronic) Chronic back pain (Chronic) Scoliosis (Chronic) History of tooth extraction (Chronic) History of cataract surgery (Chronic) R/L Surgical History History of cardiac cath 2012 > stent x1 Family History Mother Coronary heart disease, Onset Age: 63 of DC CHF (congestive heart failure) Myocardial infarction Father CHF (congestive heart failure) Pneumonia Sister Coronary heart disease History of CABG Rheumatic heart disease Social History Smoking Status: Never smoker Second Hand Exposure: No; Do You Dip or Chew Tobacco: No; Tobacco Cessation Education Requested by Patient: No Hx Alcohol Use: No Hx Substance Use: No Preferred Language: Slovak Communication Ability: Impaired Communication Ability Comment: 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 plan to return home alone Other Information That Helps Us Care for You: No Feels Safe at Home: Yes Safety Concerns: Feels Safe At This Time Assistive Devices: Denture - Upper, Denture - Lower, Glasses and Wheelchair Allergies Allergies Allergy/AdvReac Type Severity Reaction Status Date / Time atenolol Allergy Unknown Patient Verified 08/20/23 22:28 told "never to take again" candesartan [From Atacand] AdvReac Intermediate Hyperkalemi Verified 08/20/23 22:28 a lisinopril AdvReac Intermediate Increased Verified 08/20/23 22:28 creatinine, hypotension Home Meds Home Medications Medication Instructions Recorded Confirmed albuterol sulfate 90 mcg/actuation 2 inh inhalation Q4H PRN Shortness 06/04/18 01/23/24 breath activated powder inhaler Of Breath Or Wheezing aspirin 81 mg tablet,delayed 81 mg PO UD 06/04/18 01/23/24 release atorvastatin 80 mg tablet 80 mg PO HS 06/04/18 01/23/24 multivitamin-ferrous 1 tab PO DAILY 09/03/18 01/23/24 fumarate-folic acid 18 mg-400 mcg tablet (Centrum) carvedilol 12.5 mg tablet 12.5 mg PO BID 06/13/22 01/23/24 nitroglycerin 0.4 mg sublingual 0.4 mg sublingual DIRECTED PRN 06/13/22 01/23/24 tablet Chest Pain sotalol 80 mg tablet 40 mg PO BID 06/13/22 01/23/24 terazosin 2 mg capsule 2 mg PO HS 06/13/22 01/23/24 coenzyme Q10 400 mg capsule 400 mg PO DAILY 02/26/23 01/23/24 finasteride 5 mg tablet 5 mg PO QAM 05/28/23 01/23/24 furosemide 40 mg tablet (Lasix) 40 mg PO Q OTHER DAY 05/28/23 01/23/24 furosemide 40 mg tablet 60 mg PO Q OTHER DAY 08/20/23 01/23/24 acetaminophen 500 mg capsule 1,000 mg PO BID PRN pain/fever 12/24/23 01/23/24 acetaminophen 500 mg tablet 500 mg PO BID 12/24/23 01/23/24 empagliflozin 25 mg tablet 12.5 mg PO DAILY 12/24/23 01/23/24 (Jardiance) insulin glargine 100 unit/mL 12 unit subcut DAILY 12/24/23 01/23/24 subcutaneous solution (Lantus U-100 Insulin) insulin lispro 100 unit/mL See Rx Instructions .Route .COMPLEX 12/24/23 01/23/24 subcutaneous solution (Humalog U-100 Insulin) levothyroxine 50 mcg tablet 50 mcg PO DAILY 12/24/23 01/23/24 loperamide 2 mg tablet (Imodium 2 mg PO Q2H PRN Diarrhea 12/24/23 01/23/24 A-D) magnesium hydroxide 400 mg/5 mL 30 ml PO DAILY PRN Constipation 12/24/23 01/23/24 oral suspension (Milk of Magnesia) potassium chloride 20 mEq 20 meq PO QAM 12/24/23 01/23/24 tablet,extended release(part/cryst) Saccharomyces boulardii 250 mg 250 mg PO DAILY 01/23/24 01/23/24 capsule (Florastor) bisacodyl 10 mg rectal suppository 10 mg NJ DAILY PRN Constipation 01/23/24 01/23/24 (Dulcolax (bisacodyl)) diclofenac sodium 1 % topical gel 2 - 4 g topical QID 01/23/24 01/23/24 levofloxacin 500 mg tablet 500 mg PO BID 01/23/24 01/23/24 menthol 0.44 %-zinc oxide 20.6 % 1 applic topical .EVERY SHIFT 01/23/24 01/23/24 topical ointment (Calmoseptine) menthol-sorbitol lozenges 2 bud mucous membrane DIRECTED 01/23/24 01/23/24 PRN Dry Mouth nystatin 100,000 unit/mL oral 5 ml PO QID 01/23/24 01/23/24 suspension prednisone 10 mg tablet 10 mg PO DIRECTED 01/23/24 01/23/24 sodium phosphates 19 gram-7 118 ml NJ DAILY PRN Constipation 01/23/24 01/23/24 gram/118 mL enema (Fleet Enema) tramadol 50 mg tablet 50 mg PO BID 01/23/24 01/23/24 tramadol 50 mg tablet 50 mg PO Q6H PRN Pain 01/23/24 01/23/24 Previous Rx's Medication Instructions Recorded pantoprazole 40 mg tablet,delayed 40 mg PO BID #60 tabs 12/27/23 release polyethylene glycol 3350 17 4 g PO DAILY #119 grams 12/27/23 gram/dose oral powder (Miralax) Results & Data (ED) Vital Signs Vital Signs - 24 hr 01/23/24 11:13 01/23/24 11:27 01/23/24 13:00 Temperature 37 C Temperature Source Oral Pulse Rate 93 H 91 H Pulse Rate [Finger] 92 H Respiratory Rate 18 20 Blood Pressure 153/83 H Blood Pressure [Right Arm] 138/106 H Blood Pressure Mean 106 Blood Pressure Mean [Right Arm] 116 Pulse Oximetry 98 96 Oxygen Delivery Method Room Air Room Air Sepsis Recent Fever Within 48 Hours Yes Sepsis New/Unexplained Change in Mental Status No Sepsis Action Taken by Nursing No Action Required Laboratory Data 01/24/24 06:54 01/24/24 06:54 Lab Results 01/23/24 Range/Units 11:32 WBC 18.88 H (4.8-10.8) K/ul RBC 3.61 L (4.70-6.10) M/uL Hgb 8.8 L (14.0-18.0) g/dl Hct 28.8 L (42.0-52.0) % MCV 79.8 L (80.0-100.0) fL MCH 24.4 L (25.0-34.0) pg MCHC 30.6 L (32.0-36.0) g/dL RDW Std Deviation 50.6 H (36.4-46.3) fL RDW Coeff of Coty 17.5 H (11.5-14.5) % Plt Count 240 (130-400) K/uL MPV 10.1 (9.4-12.4) fL Immature Gran % (Auto) 0.5 % Neut % (Auto) 84.5 % Lymph % (Auto) 6.3 % [place] % (Auto) 8.4 % Eos % (Auto) 0.1 % Baso % (Auto) 0.2 % Neut # (Auto) 15.96 H (1.40-6.50) K/uL Lymph # (Auto) 1.19 L (1.20-3.40) K/uL [place] # (Auto) 1.59 H (0.11-0.59) K/uL Eos # (Auto) 0.01 (0.00-0.50) K/uL Baso # (Auto) 0.03 (0.00-0.20) K/uL Immature Gran # (Auto) 0.10 (0.01-0.20) K/uL Sodium 135 L (136-145) mmol/L Potassium 3.2 L (3.5-5.1) mmol/L Chloride 100 (98-107) mmol/L Carbon Dioxide 29 (21-32) mmol/L Anion Gap 6 (3-11) BUN 24 H (6-23) mg/dl Creatinine 0.81 (0.6-1.4) mg/dl Est Cr Clr Drug Dosing 55.1 ml/min eGFR 84.28 BUN/Creatinine Ratio 29.6 H (10-20) Glucose 196 H (70-99(Fasting)) mg/dl Calcium 8.6 (8.6-10.3) mg/dl Total Bilirubin 0.4 (0.2-1.0) mg/dl AST 9 L (13-39) U/L ALT 6 L (7-52) U/L Alkaline Phosphatase 58 (34-104) U/L C-Reactive Protein 18.85 H (0-0.5) mg/dl Total Protein 6.5 (6.0-8.3) gm/dl Albumin 2.9 L (3.4-5.0) gm/dl Globulin 3.6 (2.5-4.0) gm/dl Albumin/Globulin Ratio 0.8 L (0.9-2) Administered Medications Atorvastatin Calcium (Atorvastatin 40 Mg Tab) 80 mg PO HS ANNALISA Stop: 02/22/24 20:59 Last Admin: 01/23/24 20:45 Dose: 80 mg Documented By: DK Carvedilol (Carvedilol 12.5 Mg Tab) 12.5 mg PO BID ANNALISA Stop: 02/22/24 20:59 Last Admin: 01/24/24 09:12 Dose: 12.5 mg Documented By: Admin: 01/23/24 20:45 Dose: 12.5 mg Documented By: DK Finasteride (Finasteride 5 Mg Tab) 5 mg PO QAM ANNALISA Stop: 02/23/24 08:59 Last Admin: 01/24/24 09:13 Dose: 5 mg Documented By: HAIM Furosemide (Furosemide 20 Mg Tab) 60 mg PO Q48H ANNALISA Stop: 02/23/24 08:59 Last Admin: 01/24/24 10:19 Dose: 60 mg Documented By: HAIM Heparin Sodium (Porcine) (Heparin Sod 5,000 Unit/0.5 Ml Vial) 5,000 units SQ Q8 ANNALISA Stop: 02/22/24 21:59 Last Admin: 01/24/24 06:24 Dose: 5,000 units Documented By: Admin: 01/23/24 21:42 Dose: 5,000 units Documented By: DK Piperacillin Sod/Tazobactam Sod (Zosyn) 4.5 gm in 100 mls @ 25 mls/hr IV Q8H ANNALISA; Protocol Stop: 02/02/24 22:59 Last Infusion: 01/24/24 10:34 Dose: Infused Documented By: Admin: 01/24/24 06:25 Dose: 25 mls/hr Documented By: Infusion: 01/24/24 02:41 Dose: Infused Documented By: Admin: 01/23/24 22:12 Dose: 25 mls/hr Documented By: DK Insulin Aspart (Insulin Aspart Per Unit Charge) 0 units SC ACHS ANNALISA Stop: 02/22/24 20:59 Last Admin: 01/24/24 09:23 Dose: 3 units Documented By: HAIM Co-signed By: SHAMEKA Admin: 01/23/24 21:40 Dose: 1 units Documented By: DK Co-signed By: VICKI Insulin Glargine (Lantus Per Unit Charge) 12 units SQ QAM ANNALISA Stop: 02/23/24 08:59 Last Admin: 01/24/24 09:24 Dose: 12 units Documented By: HAIM Co-signed By: SHAMEKA Levothyroxine Sodium (Levothyroxine Sodium 50 Mcg Tablet) 50 mcg PO DAILYBB ANNALISA Stop: 02/23/24 06:29 Last Admin: 01/24/24 06:24 Dose: 50 mcg Documented By: DK Multivitamins (Multivitamin Tab) 1 tab PO DAILY ANNALISA Stop: 02/23/24 08:59 Last Admin: 01/24/24 09:08 Dose: 1 tab Documented By: HAIM Pantoprazole Sodium (Pantoprazole 40 Mg Tab) 40 mg PO BID ANNALISA Stop: 02/22/24 20:59 Last Admin: 01/24/24 09:09 Dose: 40 mg Documented By: Admin: 01/23/24 20:48 Dose: 40 mg Documented By: DK Potassium Chloride (Potassium Chloride Crtab 20 Meq Tabcr) 20 meq PO QAM ANNALISA Stop: 02/23/24 08:59 Last Admin: 01/24/24 09:18 Dose: 20 meq Documented By: HAIM Saccharomyces Boulardii (Saccharomyces Boulardii 250 Mg Cap) 250 mg PO DAILY ANNALISA Stop: 02/23/24 08:59 Last Admin: 01/24/24 09:12 Dose: 250 mg Documented By: HAIM Sotalol HCl (Sotalol Hcl 80 Mg Tab) 40 mg PO BID ANNALISA Stop: 02/22/24 20:59 Last Admin: 01/24/24 09:12 Dose: 40 mg Documented By: Admin: 01/23/24 20:46 Dose: 40 mg Documented By: DK Terazosin HCl (Terazosin Hcl 1 Mg Cap) 2 mg PO HS ANNALISA Stop: 02/22/24 20:59 Last Admin: 01/23/24 20:47 Dose: 2 mg Documented By: DK Discontinued Medications Dexamethasone (Dexamethasone Sod Inj 4 Mg/Ml Vial) 6 mg IV ONE STA Stop: 01/23/24 17:02 Last Admin: 01/23/24 17:14 Dose: 6 mg Documented By: KATE Daptomycin 400 mg/ Syringe 8 mls @ 4 mls/min IV NOW STA; Protocol Stop: 01/23/24 13:47 Last Admin: 01/23/24 14:31 Dose: 4 mls/min Documented By: KATE Ampicillin Sodium/Sulbactam Sodium (Unasyn) 3,000 mg in 100 mls @ 200 mls/hr IV NOW STA; Protocol Stop: 01/23/24 14:16 Last Infusion: 01/23/24 15:09 Dose: Infused Documented By: Admin: 01/23/24 14:31 Dose: 200 mls/hr Documented By: KATE Piperacillin Sod/Tazobactam Sod (Zosyn) 4.5 gm in 100 mls @ 200 mls/hr IV NOW STA; Protocol Stop: 01/23/24 17:12 Last Infusion: 01/23/24 17:46 Dose: Infused Documented By: Admin: 01/23/24 17:14 Dose: 200 mls/hr Documented By: KATE Dexamethasone 6 mg/ Syringe 1.5 mls @ 1 mls/min IV DAILY [facility] Stop: 02/22/24 17:14 Last Admin: 01/23/24 17:21 Dose: Not Given Documented By: KATE Ioversol (Optiray 320 125ml) 94 ml IV ONCE ONE Stop: 01/23/24 12:33 Last Admin: 01/23/24 12:32 Dose: 94 ml Documented By: SARAH Discharge Plan Visit Data Chief Complaint: Facial Injury/Pain Stated Complaint: swelling ED Provider: Omkar Puente Discharge Problem: Parotitis, Cellulitis Patient Disposition: Admitted As Inpatient Discharge Instructions Interventions: ED Discharge Assessment Last Done: 01/23/24 19:02
[2024-01-23 11:52] LABS: Basophils # (auto) 0.03 K/uL (0.00-0.20); Basophils % (auto) 0.2 %; Eosinophils # (auto) 0.01 K/uL (0.00-0.50); Eosinophils % (auto) 0.1 %; Hematocrit (blood only) 28.8 % (42.0-52.0); Hemoglobin 8.8 g/dl (14.0-18.0); Immature Granulocytes % (auto) 0.5 %; Lymphocytes # (auto) 1.19 K/uL (1.20-3.40); Lymphocytes % (auto) 6.3 %; Mean Corpuscular Hemoglobin 24.4 pg (25.0-34.0); Mean Corpuscular Hgb Conc 30.6 g/dL (32.0-36.0); Mean Corpuscular Volume 79.8 fL (80.0-100.0); Mean Platelet Volume 10.1 fL (9.4-12.4); Monocytes # (auto) 1.59 K/uL (0.11-0.59); Monocytes % (auto) 8.4 %; Neutrophils # (auto) 15.96 K/uL (1.40-6.50); Neutrophils % (auto) 84.5 %; Platelet Count 240 K/uL (130-400); RDW Coefficient of Variation 17.5 % (11.5-14.5); RDW Standard Deviation 50.6 fL (36.4-46.3); Red Blood Count 3.61 M/uL (4.70-6.10); White Blood Count 18.88 K/ul (4.8-10.8)
[2024-01-23 12:07] LABS: Albumin Globulin Ratio 0.8 (0.9-2); Albumin Level 2.9 gm/dl (3.4-5.0); BUN Creatinine Ratio 29.6 (10-20); Bilirubin,Total 0.4 mg/dl (0.2-1.0); Calcium 8.6 mg/dl (8.6-10.3); Creatinine Clr Calc Pharmacy 55.1 ml/min; Globulin 3.6 gm/dl (2.5-4.0); Potassium 3.2 mmol/L (3.5-5.1); Total Protein 6.5 gm/dl (6.0-8.3)
[2024-01-23] MEDS: OPTIRAY 320 125ml IV ONE (12:32)
--- NOTE | 2024-01-23 13:28 | CT Scan Report ---
CT SCAN OF THE FACIAL BONES WITH IV CONTRAST CLINICAL HISTORY: Left facial swelling COMPARISON STUDY: No priors. TECHNIQUE: High-resolution CT scan of the facial bones is performed following administration of 94 c c of Optiray 320. Images are reviewed in the axial, sagittal, and coronal planes. IV contrast was adm inistered without complication. A dose lowering technique was utilized adhering to the principles of ALARA. FINDINGS: The skeletal structures are osteopenic. There is no evidence of facial bone fracture. The b weston orbits are intact and the orbital contents are within normal limits noting bilateral ocular lens implants. The zygomatic arches, nasal bones, and pterygoid plates are preserved. The maxilla and loly ible are intact. There are no layering blood products within the paranasal sinuses. There is subtotal opacification of the right maxillary antrum. Thickening and sclerosis of the sinus wall indicates ch ronicity. Moderate mucosal thickening seen within the right ethmoid sinuses. There is trace mucosal t hickening within the frontal and left maxillary sinuses. The mastoid air cells are well pneumatized. Cerumen is seen in the external auditory canals. The visualized calvarium and upper cervical spine ar e maintained. The imaged brain parenchyma is within normal limits noting age related involutional marion nge. There are large calcified sialoliths measuring up to 2.2 cm seen in the right submandibular duct on axial images #230 and #237. The left parotid gland is enlarged and heterogeneous with significant surrounding inflammation and fluid. This is consistent with parotitis. There is evidence of surround ing cellulitis with inflammatory change and subcutaneous fluid extending inferiorly into the left low er neck. There is also inflammatory change involving the left submandibular gland.. No ductal calculi are clearly identified. IMPRESSION: 1. No acute facial bone abnormality is identified. 2. There is evidence of a severe left-sided parotitis with surrounding cellulitis as above with infla mmatory change extending into the lower neck. No obstructing stone is seen in the left parotid duct. 3. There are large calcified sialoliths within the right submandibular duct. 4. Paranasal sinus disease as above. ACT 112: Negative or not required by law. Electronically signed by: Yosi Singh M.D. 01/23/2024 1:27 PM
[2024-01-23] MEDS ORDERED: metroNIDAZOLE 500 MG/100 ML BAG IV STA (13:40)
[2024-01-23] MEDS ORDERED: cefTRIAXone SODIUM 2,000 MG/50 ML BAG IV SCH (13:45)
[2024-01-23] MEDS: AMPICILLIN/SULBACTAM SOD 3,000 MG/100 ML BAG IV STA (14:31)
[2024-01-23] MEDS: DAPTOmycin 400 MG in SYRINGE 0 ML IV STA (14:31)
--- NOTE | 2024-01-23 15:51 | History & Physical Report ---
Date of Service January 23, 2024 Assessment & Plan (1) Parotitis: Plan: Left-sided parotitis with associated facial cellulitis Failure to improve on outpatient Augmentin x 5 days Given multiple hospital exposure contact points and possible causative organisms including Pseudomonas and MRSA we will expand coverage to Zosyn and continue daptomycin admission CT face with IV contrast: Left-sided parotitis, severe with surrounding cellulitis and inflammatory change into the lower neck. No obstructing stone. No bony abnormalities appreciated. No discreet abscess is noted. Large calcified right submandibular sialolith are noted. - Reviewed w/ ENT. Agree w/ med management as long as no abscess develops to require surgical drainage Recommended for inpatient management for throat parotitis and failure of outpatient antibiotics Avoid anticholinergic medications including amitriptyline/diphenhydramine Multimodal pain control No signs of right sided cellulitis associated with the existing sialoliths. Bone extraction not currently indicated, may continue conservative management on the right side including hydration, heat application (2) Atrial fibrillation: Plan: Atrial fibrillation Paroxysmal, no longer on anticoagulation after risks/benefits discussion due to GI bleeding Sotalol continued, carvedilol continued. Sinus, regular on admission (3) CAD (coronary artery disease): Plan: CAD, history of PCI Last echo 08/2023 with EF 65 to 70% mild aortic stenosis Continue statin, carvedilol, isosorbide, losartan, sotalol Patient reports his aspirin has been held due to GI bleeding. No GI bleeding the last 2 weeks. Will follow ENT progression over the next 24 hours, if no worsening that would require any type of surgical intervention recommend restarting aspirin 01/23 Patient denies chest pain or chest pressure, endorses some neck/jaw discomfort at the site of his infection. Denies dyspnea, chest pressure, chest pain on exertion recently (4) Chronic renal disease, stage III: Plan: CKD 3 No EILEEN on admission Renally dose medications as needed (5) Diabetes mellitus, type 2: Plan: DM2 Lantus continued Continue SSI 50/20 Goal BSG 302368 (6) Chronic anemia: Plan: History of anemia, GI bleed Recently discharged 12/27/2023 No indication for transfusion at time of admission Trend CBC daily Continue outpatient GI follow-up Aspirin held, no bleeding in the last week. If no surgical intervention is needed would restart aspirin for stent protection Plan DVT prophylaxis: Heparin, switch to Lovenox if renal function is stable 01/23 no indication for surgical intervention CODE STATUS: DNR/DNI. Patient reports he would be okay with intubation if needed for airway protection outside of a cardiac/pulmonary arrest Disposition: PCU Diet: Clears History of Present Illness Primary Care Provider: Osmar Anderson III, MD Teodoro Mckeon is an 88-year-old male with a past medical history of hospital-acquired pneumonia, iron deficiency anemia, CHF, A-fib not on anticoagulation, CAD, hyperlipidemia, hypertension, and GI bleeding who presents to the ER with 1 week of progressive facial swelling which has not improved despite prednisone and antibiotics as outpatient. Patient has not any difficulty breathing eating or swallowing. On ER evaluation he was found to have a leukocytosis with neutrophilic predominance, facial CT not show any acute bony abnormality but did show evidence of his severe left-sided parotitis with surrounding cellulitis and inflammatory change extending into the lower neck. No obstructing parotid duct stone was appreciated. Large calcified sialoliths of the submandibular duct were appreciated Teodoro is seen at the bedside with his son present. He has had about 3 days of rapidly progressive left sided swelling underneath/behind his jaw with tenderness to palpation. He reports symptoms began on Sunday but he noticed that his mouth was very dry 1 day prior to that on that Sunday. He has had intermittent fevers but has not checked his temperature. He denies chest pain or chest pressure, Marinelli has had some jaw pain at the site of swelling. He reports that his aspirin was held due to GI bleeding, this has not yet been restarted. He does have a stent which was placed over 12 years ago. He denies shortness of breath at rest or when laying back. He has not had any difficulty eating, drinking, swallowing, or breathing due to the swelling. He has never had a neck infection like this before. Denies a history of resistant infections. No nausea/vomiting. No lightheadedness or dizziness. He does not use tobacco products or alcohol He reports he is not supposed take atenolol or lisinopril but does not know why. Denies antibiotic allergies DNR/DNI, but would be okay with intubation for airway protection if needed Allergies Allergy/AdvReac Type Severity Reaction Status Date / Time atenolol Allergy Unknown Patient Verified 08/20/23 22:28 told "never to take again" candesartan [From Atacand] AdvReac Intermediate Hyperkalemi Verified 08/20/23 22:28 a lisinopril AdvReac Intermediate Increased Verified 08/20/23 22:28 creatinine, hypotension Home Medications Medication Instructions Recorded Confirmed Type albuterol sulfate 90 mcg/actuation 2 inh inhalation Q4H PRN Shortness 06/04/18 01/23/24 History breath activated powder inhaler Of Breath Or Wheezing aspirin 81 mg tablet,delayed 81 mg PO UD 06/04/18 01/23/24 History release atorvastatin 80 mg tablet 80 mg PO HS 06/04/18 01/23/24 History multivitamin-ferrous 1 tab PO DAILY 09/03/18 01/23/24 History fumarate-folic acid 18 mg-400 mcg tablet (Centrum) carvedilol 12.5 mg tablet 12.5 mg PO BID 06/13/22 01/23/24 History nitroglycerin 0.4 mg sublingual 0.4 mg sublingual DIRECTED PRN 06/13/22 01/23/24 History tablet Chest Pain sotalol 80 mg tablet 40 mg PO BID 06/13/22 01/23/24 History terazosin 2 mg capsule 2 mg PO HS 06/13/22 01/23/24 History coenzyme Q10 400 mg capsule 400 mg PO DAILY 02/26/23 01/23/24 History finasteride 5 mg tablet 5 mg PO QAM 05/28/23 01/23/24 History furosemide 40 mg tablet (Lasix) 40 mg PO Q OTHER DAY 05/28/23 01/23/24 History furosemide 40 mg tablet 60 mg PO Q OTHER DAY 08/20/23 01/23/24 History acetaminophen 500 mg capsule 1,000 mg PO BID PRN pain/fever 12/24/23 01/23/24 History acetaminophen 500 mg tablet 500 mg PO BID 12/24/23 01/23/24 History empagliflozin 25 mg tablet 12.5 mg PO DAILY 12/24/23 01/23/24 History (Jardiance) insulin glargine 100 unit/mL 12 unit subcut DAILY 12/24/23 01/23/24 History subcutaneous solution (Lantus U-100 Insulin) insulin lispro 100 unit/mL See Rx Instructions .Route .COMPLEX 12/24/23 01/23/24 History subcutaneous solution (Humalog U-100 Insulin) levothyroxine 50 mcg tablet 50 mcg PO DAILY 12/24/23 01/23/24 History loperamide 2 mg tablet (Imodium 2 mg PO Q2H PRN Diarrhea 12/24/23 01/23/24 History A-D) magnesium hydroxide 400 mg/5 mL 30 ml PO DAILY PRN Constipation 12/24/23 01/23/24 History oral suspension (Milk of Magnesia) potassium chloride 20 mEq 20 meq PO QAM 12/24/23 01/23/24 History tablet,extended release(part/cryst) pantoprazole 40 mg tablet,delayed 40 mg PO BID #60 tabs 12/27/23 01/23/24 Rx release polyethylene glycol 3350 17 4 g PO DAILY #119 grams 12/27/23 01/23/24 Rx gram/dose oral powder (Miralax) Saccharomyces boulardii 250 mg 250 mg PO DAILY 01/23/24 01/23/24 History capsule (Florastor) bisacodyl 10 mg rectal suppository 10 mg LA DAILY PRN Constipation 01/23/24 01/23/24 History (Dulcolax (bisacodyl)) diclofenac sodium 1 % topical gel 2 - 4 g topical QID 01/23/24 01/23/24 History levofloxacin 500 mg tablet 500 mg PO BID 01/23/24 01/23/24 History menthol 0.44 %-zinc oxide 20.6 % 1 applic topical .EVERY SHIFT 01/23/24 01/23/24 History topical ointment (Calmoseptine) menthol-sorbitol lozenges 2 bud mucous membrane DIRECTED 01/23/24 01/23/24 History PRN Dry Mouth nystatin 100,000 unit/mL oral 5 ml PO QID 01/23/24 01/23/24 History suspension prednisone 10 mg tablet 10 mg PO DIRECTED 01/23/24 01/23/24 History sodium phosphates 19 gram-7 118 ml LA DAILY PRN Constipation 01/23/24 01/23/24 History gram/118 mL enema (Fleet Enema) tramadol 50 mg tablet 50 mg PO BID 01/23/24 01/23/24 History tramadol 50 mg tablet 50 mg PO Q6H PRN Pain 01/23/24 01/23/24 History Past Med/Surg History Problem List Chronic anemia Parotitis Diverticular hemorrhage Lactic acidosis Acute blood loss anemia Abdominal pain (Acute) Acute GI bleeding (Acute) Diverticulitis (Acute) Hospital acquired PNA input by error, wrong diagnosis Encounter for pre-operative examination Urinary symptom or sign Penile ulcer Balanitis Fall Left-sided chest wall pain (Acute) Ambulatory dysfunction (Acute) Leukocytosis (Acute) Hernia, hiatal (Acute) Acute on chronic diastolic (congestive) heart failure Paroxysmal atrial fibrillation Chronic diastolic heart failure Leukocytosis (Acute) GI bleed (Acute) Iron deficiency anemia (Acute) Diverticulitis (Acute) Elevated troponin (Acute) Symptomatic anemia (Acute) Diverticulitis Lower GI bleed Symptomatic anemia Greater trochanteric bursitis of both hips Elevated troponin I level CHF (congestive heart failure) (Acute) Atrial fibrillation, rapid (Acute) DVT prophylaxis Elevated troponin Chronic diastolic CHF (congestive heart failure) Atrial fibrillation with RVR Inflammatory polyarthropathy Atrial fibrillation Follows with [facility] cardiology CAD (coronary artery disease) (Chronic) 2012- MARY to LAD BPH (benign prostatic hyperplasia) (Chronic) 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 Zhu Osteoarthritis (Chronic) Chronic back pain (Chronic) Scoliosis (Chronic) History of tooth extraction (Chronic) History of cataract surgery (Chronic) R/L Surgical History History of cardiac cath 2012 > stent x1 Family History Mother Coronary heart disease, Onset Age: 63 of [place] CHF (congestive heart failure) Myocardial infarction Father CHF (congestive heart failure) Pneumonia Sister Coronary heart disease History of CABG Rheumatic heart disease Social History Smoking Status: Never smoker Second Hand Exposure: No; Do You Dip or Chew Tobacco: No; Hx Alcohol Use: No Hx Substance Use: No Preferred Language: Romansh Communication Ability: Effective Network Control Operators Supervisor Required: Yes Beliefs That Will Affect Care: None marital status: / Current Living Situation: Residential Feels Safe at Home: Yes Assistive Devices: Walker and Wheelchair Physical Exam Physical Exam: General: Oriented to name, year, and place. Some intermittent confusion during conversation but is generally a good historian. HEENT: Left neck with submandibular swelling of approximately 10 cm wide area with redness, warmth, and tenderness to the touch. Some tenderness extending down into the mid neck, no tenderness at the clavicle. Uvula is midline. No stridor. Pulm: CTAB A&P. -wheezes, -rales, -rhonchi. Symmetrical chest rise. No increased work of breathing. No respiratory distress. Cardiac: RRR, -mrg. Radial pulses intact and symmetrical. Abdominal: Nontender, nondistended, soft. BS present. Results & Data Results & Data Vital Signs (Past 12 Hours) Vital Signs Temp Pulse Pulse Resp BP BP Pulse Ox 01/23/24 13:00 92 H 20 138/106 H 96 01/23/24 11:27 91 H 01/23/24 11:13 37 C 93 H 18 153/83 H 98 O2 Del Method 01/23/24 13:00 Room Air 01/23/24 11:27 01/23/24 11:13 Room Air PG Care Time/CCT Total # of Minutes Spent Total Time Spent with Patient: Total time spent is greater than 50% in coordination of care (as documented) at patient's floor/unit and/or counseling patient: Coding Level of Care Code 22280 INT INP/OBS CARE 375MIN Diagnoses Parotitis K11.20 Atrial fibrillation I48.91 Coronary artery disease of [place] artery of [place] heart with stable angina pectoris I25.118 Associated angina: with stable angina Coronary Disease-Associated Artery/Lesion type: [place] artery [place] vs. transplanted heart: [place] heart Chronic renal disease, stage III N18.3 Diabetes mellitus, type 2 E11.9 Chronic anemia D64.9 (3) CAD (coronary artery disease) Associated angina: with stable angina Coronary Disease-Associated Artery/Lesion type: [place] artery [place] vs. transplanted heart: [place] heart Qualified Code(s): I25.118 - Atherosclerotic heart disease of [place] coronary artery with other forms of angina pectoris
[2024-01-23] MEDS ORDERED: DEXAMETHASONE SOD INJ 4 MG/ML VIAL IV SCH (17:00)
[2024-01-23] MEDS: 4.5GM X1 IV STA (17:14)
[2024-01-23] MEDS: DEXAMETHASONE SOD INJ 4 MG/ML VIAL IV STA (17:14)
[2024-01-23] MEDS: dexAMETHasone 6 MG in SYRINGE 0 ML IV SCH (17:21)
[2024-01-23] MEDS ORDERED: NITROGLYCERIN SL 0.4 MG/TAB TAB SL PRN (19:39)
[2024-01-23] MEDS ORDERED: GLUCOSE 10 TAB/TUBE PO PRN (19:39)
[2024-01-23] MEDS ORDERED: DEXTROSE 50% 50 ML SYRINGE IV PRN (19:39)
[2024-01-23] MEDS ORDERED: bisacodyL 10 MG SUPP PR PRN (19:39)
[2024-01-23] MEDS ORDERED: ACETAMINOPHEN 325 MG TAB PO PRN (19:39)
[2024-01-23] MEDS ORDERED: GLUCOSE 40% GEL 15 GM TUBE PO PRN (19:39)
[2024-01-23] MEDS ORDERED: GLUCAGON FOR INJ 1 MG VIAL SQ PRN (19:39)
[2024-01-23] MEDS ORDERED: CARBOHYDRATES FOR HYPOGLYCEMIA PO PRN (19:39)
[2024-01-23] MEDS ORDERED: SOD PHOSPHATE/SOD BIPHOSPHATE ENEMA 132 ML BTL PR PRN (19:39)
[2024-01-23] MEDS ORDERED: MAGNESIUM HYDROXIDE SUSP 30 ML UDC PO PRN (19:39)
[2024-01-23] MEDS ORDERED: ALBUTEROL HFA 8 GM INHALER INH PRN (20:00)
[2024-01-23] MEDS: carvediloL 12.5 MG TAB PO SCH (20:45)
[2024-01-23] MEDS: ATORVASTATIN 40 MG TAB PO SCH (20:45)
[2024-01-23] MEDS: SOTALOL HCL 80 MG TAB PO SCH (20:46)
[2024-01-23] MEDS: TERAZOSIN HCL 1 MG CAP PO SCH (20:47)
[2024-01-23] MEDS: PANTOprazole 40 MG TAB PO SCH (20:48)
[2024-01-23] MEDS: INSULIN ASPART PER UNIT CHARGE SC SCH (21:40)
[2024-01-23] MEDS: HEPARIN SOD 5,000 UNIT/0.5 ML VIAL SQ SCH (21:42)
[2024-01-23] MEDS: PIPERACILLIN/TAZOBACTAM 4.5 GM/100 ML BAG IV SCH (22:12)
[2024-01-24 00:19] LABS: C Reactive Protein 18.85 mg/dl (0-0.5)
[2024-01-24] MEDS: LEVOTHYROXINE SODIUM 50 MCG TABLET PO SCH (06:24)
[2024-01-24 08:06] LABS: Hemoglobin 8.1 g/dl (14.0-18.0); Mean Corpuscular Hemoglobin 24.4 pg (25.0-34.0); Mean Corpuscular Volume 81.3 fL (80.0-100.0); Mean Platelet Volume 11.1 fL (9.4-12.4); Platelet Count 260 K/uL (130-400); RDW Coefficient of Variation 17.7 % (11.5-14.5); RDW Standard Deviation 51.8 fL (36.4-46.3); Red Blood Count 3.32 M/uL (4.70-6.10); White Blood Count 15.08 K/ul (4.8-10.8)
--- NOTE | 2024-01-24 08:33 | Hospitalist Progress Note ---
Date of Service January 24, 2024 Assessment & Plan (1) Parotitis: Plan: Left-sided parotitis with associated facial cellulitis Failured outpatient Augmentin x 5 days Given multiple hospital exposure contact points and possible causative or ganisms including Pseudomonas and MRSA we will expand coverage to Zosyn and continue daptomycin admission CT face with IV contrast: Left-sided parotitis, severe with surrounding cellulitis and inflammatory change into the lower neck. No obstructing stone. No bony abnormalities appreciated. No discreet abscess is noted. Large calcified right submandibular sialolith are noted. - Reviewed w/ ENT. Agree w/ med management as long as no abscess develops to require surgical drainage Recommended for inpatient management for throat parotitis and failure of outpatient antibiotics Avoid anticholinergic medications including amitriptyline/diphenhydramine Multimodal pain control No signs of right sided cellulitis associated with the existing sialoliths. Bone extraction not currently indicated, may continue conservative management on the right side including hydration, heat application (2) Atrial fibrillation: Plan: Atrial fibrillation Paroxysmal, no longer on anticoagulation after risks/benefits discussion due to GI bleeding Sotalol continued, carvedilol continued. Sinus, regular on admission (3) CAD (coronary artery disease): Plan: CAD, history of PCI Last echo 08/2023 with EF 65 to 70% mild aortic stenosis Continue statin, carvedilol, isosorbide, losartan, sotalol Patient reports his aspirin has been held due to GI bleeding. No GI bleeding the last 2 weeks. Will follow ENT progression over the next 24 hours, if no worsening that would require any type of surgical intervention recommend restarting aspirin 01/23 Patient denies chest pain or chest pressure, endorses some neck/jaw discomfort at the site of his infection. Denies dyspnea, chest pressure, chest pain on exertion recently (4) Chronic renal disease, stage III: Plan: CKD 3 No EILEEN on admission Renally dose medications as needed (5) Diabetes mellitus, type 2: Plan: DM2 Lantus continued Continue SSI 50/20 Goal BSG 453019 (6) Chronic anemia: Plan: History of anemia, GI bleed Recently discharged 12/27/2023 No indication for transfusion at time of admission Trend CBC daily Continue outpatient GI follow-up Aspirin restarted anemia present but stable Plan DVT prophylaxis: Heparin, CODE STATUS: DNR/DNI. Patient reports he would be okay with intubation if needed for airway protection outside of a cardiac/pulmonary arrest Disposition: PCU Admission and Anticipated Discharge Date Admission Date: January 23, 2024 Subjective pt still with facial swelling, states he feels a little better still pain and swelling especially in front of left ear Physical Exam Physical Exam: firm, painful facial swelling left parotid area, no issues with speaking or swallowing, no stridor lungs are clear Results & Data Results & Data Vital Signs (Past 12 Hours) Vital Signs Temp Pulse Pulse Resp BP Pulse Ox O2 Del Method 01/24/24 08:28 97.9 F 63 19 128/66 98 Room Air 01/24/24 07:00 74 01/24/24 02:29 98.6 F 71 18 122/70 95 Room Air 01/24/24 00:03 83 01/23/24 22:44 97.9 F 78 18 129/69 97 Room Air Laboratory Results Reviewed CBC reviewed chemistry PG Care Time/CCT Total # of Minutes Spent Total Time Spent with Patient: Total time spent is greater than 50% in coordination of care (as documented) at patient's floor/unit and/or counseling patient: Coding Level of Care Code 66497 SUB INP/OBS CARE 2/35MIN Diagnoses Parotitis K11.20 Atrial fibrillation I48.91 Coronary artery disease of [place] artery of [place] heart with stable angina pectoris I25.118 Associated angina: with stable angina Coronary Disease-Associated Artery/Lesion type: [place] artery [place] vs. transplanted heart: [place] heart Chronic renal disease, stage III N18.3 Diabetes mellitus, type 2 E11.9 Chronic anemia D64.9 (3) CAD (coronary artery disease) Associated angina: with stable angina Coronary Disease-Associated Artery/Lesion type: [place] artery [place] vs. transplanted heart: [place] heart Qualified Code(s): I25.118 - Atherosclerotic heart disease of [place] coronary artery with other forms of angina pectoris
[2024-01-24 08:43] LABS: BUN Creatinine Ratio 29.5 (10-20); C Reactive Protein 17.6 mg/dl (0-0.5); Calcium 8.3 mg/dl (8.6-10.3); Creatinine Clr Calc Pharmacy 57.2 ml/min; Potassium 3.3 mmol/L (3.5-5.1)
[2024-01-24 08:49] LABS: Basophils # (auto) 0.01 K/uL (0.00-0.20); Basophils % (auto) 0.1 %; Immature Granulocytes # (auto) 0.08 K/uL (0.01-0.20); Immature Granulocytes % (auto) 0.5 %; Lymphocytes # (auto) 0.64 K/uL (1.20-3.40); Lymphocytes % (auto) 4.2 %; Monocytes # (auto) 0.64 K/uL (0.11-0.59); Monocytes % (auto) 4.2 %; Neutrophils # (auto) 13.71 K/uL (1.40-6.50); Polychromasia 1+; Tear Drop Cells 1+; Toxic Vacuolation 1+
[2024-01-24] MEDS: MULTIVITAMIN TAB PO SCH (09:08)
[2024-01-24] MEDS: SACCHAROMYCES BOULARDII 250 MG CAP PO SCH (09:12)
[2024-01-24] MEDS: FINASTERIDE 5 MG TAB PO SCH (09:13)
[2024-01-24] MEDS: POTASSIUM CHLORIDE CRTAB 20 MEQ TABCR PO SCH (09:18)
[2024-01-24] MEDS: LANTUS PER UNIT CHARGE SQ SCH (09:24)
[2024-01-24] MEDS: FUROSEMIDE 20 MG TAB PO SCH (10:19)
[2024-01-24] MEDS: POLYETHYLENE (MIRALAX) 17 GM PACK PO SCH (13:38)
[2024-01-24] MEDS: ASPIRIN 81 MG ECTAB PO SCH (17:19)
[2024-01-24] MEDS: DAPTOmycin 275 MG in SYRINGE 0 ML IV SCH (17:19)
[2024-01-24] MEDS: dexAMETHasone 6 MG in SYRINGE 0 ML IV SCH (18:13)
[2024-01-25 06:21] LABS: Basophils # (auto) 0.01 K/uL (0.00-0.20); Basophils % (auto) 0.1 %; Hematocrit (blood only) 25.2 % (42.0-52.0); Hemoglobin 7.6 g/dl (14.0-18.0); Immature Granulocytes # (auto) 0.04 K/uL (0.01-0.20); Immature Granulocytes % (auto) 0.4 %; Lymphocytes # (auto) 0.65 K/uL (1.20-3.40); Lymphocytes % (auto) 7.2 %; Mean Corpuscular Hemoglobin 24.2 pg (25.0-34.0); Mean Corpuscular Hgb Conc 30.2 g/dL (32.0-36.0); Mean Corpuscular Volume 80.3 fL (80.0-100.0); Mean Platelet Volume 10.4 fL (9.4-12.4); Monocytes # (auto) 0.45 K/uL (0.11-0.59); Neutrophils # (auto) 7.89 K/uL (1.40-6.50); Neutrophils % (auto) 87.3 %; Platelet Count 250 K/uL (130-400); RDW Coefficient of Variation 17.7 % (11.5-14.5); RDW Standard Deviation 51.1 fL (36.4-46.3); Red Blood Count 3.14 M/uL (4.70-6.10); White Blood Count 9.04 K/ul (4.8-10.8)
[2024-01-25 06:43] LABS: Polychromasia 1+
[2024-01-25 06:48] LABS: Calcium 7.9 mg/dl (8.6-10.3); Creatinine Clr Calc Pharmacy 44.3 ml/min; Potassium 3.2 mmol/L (3.5-5.1)
[2024-01-25] MEDS: FUROSEMIDE 40 MG TAB PO SCH (09:06)
--- NOTE | 2024-01-25 11:30 | Hospitalist Progress Note ---
Date of Service January 25, 2024 Assessment & Plan (1) Parotitis: Plan: Left-sided parotitis with associated facial cellulitis Failured outpatient Augmentin x 5 days Given multiple hospital exposure contact points and possible causative or ganisms including Pseudomonas and MRSA we will expand coverage to Zosyn and continue daptomycin admission CT face with IV contrast: Left-sided parotitis, severe with surrounding cellulitis and inflammatory change into the lower neck. No obstructing stone. No bony abnormalities appreciated. No discreet abscess is noted. Large calcified right submandibular sialolith are noted. - Reviewed w/ ENT. Agree w/ med management as long as no abscess develops to require surgical drainage Recommended for inpatient management for throat parotitis and failure of outpatient antibiotics Avoid anticholinergic medications including amitriptyline/diphenhydramine Multimodal pain control No signs of right sided cellulitis associated with the existing sialoliths. (2) Atrial fibrillation: Plan: Atrial fibrillation Paroxysmal, no longer on anticoagulation after risks/benefits discussion due to GI bleeding Sotalol continued, carvedilol continued. Sinus, regular on admission (3) CAD (coronary artery disease): Plan: CAD, history of PCI Last echo 08/2023 with EF 65 to 70% mild aortic stenosis Continue statin, carvedilol, isosorbide, losartan, sotalol Patient reports his aspirin has been held due to GI bleeding. No GI bleeding the last 2 weeks. Will follow ENT progression over the next 24 hours, if no worsening that would require any type of surgical intervention recommend restarting aspirin 01/23 Patient denies chest pain or chest pressure, endorses some neck/jaw discomfort at the site of his infection. Denies dyspnea, chest pressure, chest pain on exertion recently (4) Chronic renal disease, stage III: Plan: CKD 3 No EILEEN on admission Renally dose medications as needed (5) Diabetes mellitus, type 2: Plan: DM2 Lantus continued Continue SSI 50/20 Goal BSG [id number] (6) Chronic anemia: Plan: History of anemia, GI bleed Recently discharged 12/27/2023 No indication for transfusion at time of admission Trend CBC daily Continue outpatient GI follow-up Aspirin restarted anemia present but stable Plan DVT prophylaxis: Heparin, CODE STATUS: DNR/DNI. Patient reports he would be okay with intubation if needed for airway protection outside of a cardiac/pulmonary arrest Disposition: Hopef[place]lly d/c in the next 24 hrs Admission and Anticipated Discharge Date Admission Date: January 23, 2024 Subjective patient seen and examined, still with chin swelling, but denies pain Review of Systems Review of Systems: All systems reviewed are negative, apart from the ones contained in the history. Physical Exam Physical Exam: The patient is awake, alert and oriented 3, well developed and well nourished, normocephalic and atraumatic, lying in bed and in no acute distress. HEENT--PERRL, EOMI, mucous membranes and oropharynx mildly dry Neck--supple. No JVD. No bruits. Thyroid normal, trachea midline, no adenopathy. Heart--normal S1 and S2. No murmurs, rubs or gallops. Lungs--clear bilaterally, no respiratory distress, no accessory muscle use. Abdomen--normal bowel sounds and soft. Extremities--no cyanosis or clubbing. No edema. Dermatologic--normal skin turgor, normal color, no abnormal lymph nodes, no rash. Neurologic--cranial nerves II through XII grossly intact. Rheumatologic--normal range of motion. Psychiatric--normal affect. Results & Data Results & Data Vital Signs (Past 12 Hours) Vital Signs Temp Pulse Pulse Resp BP Pulse Ox O2 Del Method 01/25/24 10:54 97.3 F L 81 18 108/56 L 96 Room Air 01/25/24 08:10 97.9 F 71 18 151/68 H 98 Room Air 01/25/24 07:45 Room Air 01/25/24 07:30 54 L 01/25/24 04:55 98.2 F 66 16 127/64 98 Room Air PG Care Time/CCT Total # of Minutes Spent Total Time Spent with Patient: Total time spent is greater than 50% in coordination of care (as documented) at patient's floor/unit and/or counseling patient: Coding Level of Care Code 40605 SUB INP/OBS CARE 2/35MIN Diagnoses Parotitis K11.20 Atrial fibrillation I48.91 Coronary artery disease of [place] artery of [place] heart with stable angina pectoris I25.118 Coronary Disease-Associated Artery/Lesion type: [place] artery [place] vs. transplanted heart: [place] heart Associated angina: with stable angina Chronic renal disease, stage III N18.3 Diabetes mellitus, type 2 E11.9 Chronic anemia D64.9 Time Spent (min) 35 (3) CAD (coronary artery disease) Coronary Disease-Associated Artery/Lesion type: [place] artery [place] vs. transplanted heart: [place] heart Associated angina: with stable angina Qualified Code(s): I25.118 - Atherosclerotic heart disease of [place] coronary artery with other forms of angina pectoris
[2024-01-25] MEDS: carvediloL 6.25 MG TAB PO SCH (15:51)
[2024-01-25] MEDS: SOTALOL HCL 80 MG TAB PO SCH (19:28)
--- NOTE | 2024-01-25 22:27 | Electrocardiogram Report ---
Test Reason : Blood Pressure : */* mmHG Vent. Rate : 47 BPM Atrial Rate : 47 BPM P-R Int : 180 ms QRS Dur : 116 ms QT Int : 522 ms P-R-T Axes : * -10 123 degrees QTcB Int : 461 ms Sinus bradycardia with Premature atrial complexes Left ventricular hypertrophy with QRS widening T wave abnormality, consider anterolateral ischemia Abnormal ECG When compared with ECG of 25-Dec-2023 09:52, Premature atrial complexes are now Present QRS duration has increased Inverted T waves have replaced nonspecific T wave abnormality in Anterolateral leads Confirmed by Leon Hall ([id number] on 01/25/2024 10:26:40 PM Referred By: REFERRED SELF Confirmed By: Leon Hall
[2024-01-25] MEDS: POTASSIUM CHLORIDE CRTAB 20 MEQ TABCR PO STA (23:47)
[2024-01-26 04:57] VITALS: TEMP 97.5
[2024-01-26 08:22] VITALS: RESP 20; O2SAT 97
[2024-01-26 08:30] LABS: Hematocrit (blood only) 26.8 % (42.0-52.0); Hemoglobin 7.9 g/dl (14.0-18.0); Immature Granulocytes # (auto) 0.04 K/uL (0.01-0.20); Immature Granulocytes % (auto) 0.5 %; Lymphocytes % (auto) 11.3 %; Mean Corpuscular Hgb Conc 29.5 g/dL (32.0-36.0); Mean Corpuscular Volume 81.5 fL (80.0-100.0); Mean Platelet Volume 10.8 fL (9.4-12.4); Monocytes # (auto) 1.07 K/uL (0.11-0.59); Monocytes % (auto) 12.1 %; Neutrophils # (auto) 6.74 K/uL (1.40-6.50); Neutrophils % (auto) 76.1 %; Platelet Count 254 K/uL (130-400); RDW Coefficient of Variation 17.6 % (11.5-14.5); RDW Standard Deviation 51.7 fL (36.4-46.3); Red Blood Count 3.29 M/uL (4.70-6.10); White Blood Count 8.85 K/ul (4.8-10.8)
[2024-01-26 08:54] LABS: BUN Creatinine Ratio 31.8 (10-20); Creatinine Clr Calc Pharmacy 41.4 ml/min; Polychromasia 1+; Potassium 3.8 mmol/L (3.5-5.1); Tear Drop Cells 1+
--- NOTE | 2024-01-26 11:24 | Discharge Summary ---
Date of Service January 26, 2024 Admission HPI Per Admitting Provider Teodoro Mckeon is an 88-year-old male with a past medical history of hospital- acquired pneumonia, iron deficiency anemia, CHF, A-fib not on anticoagulation, CAD, hyperlipidemia, hypertension, and GI bleeding who presents to the ER with 1 week of progressive facial swelling which has not improved despite prednisone and antibiotics as outpatient. Patient has not any difficulty breathing eating or swallowing. On ER evaluation he was found to have a leukocytosis with neutrophilic predominance, facial CT not show any acute bony abnormality but did show evidence of his severe left-sided parotitis with surrounding cellulitis and inflammatory change extending into the lower neck. No obstructing parotid duct stone was appreciated. Large calcified sialoliths of the submandibular duct were appreciated Teodoro is seen at the bedside with his son present. He has had about 3 days of rapidly progressive left sided swelling underneath/behind his jaw with tenderness to palpation. He reports symptoms began on Sunday but he noticed that his mouth was very dry 1 day prior to that on that Sunday. He has had intermittent fevers but has not checked his temperature. He denies chest pain or chest pressure, Marinelli has had some jaw pain at the site of swelling. He reports that his aspirin was held due to GI bleeding, this has not yet been restarted. He does have a stent which was placed over 12 years ago. He denies shortness of breath at rest or when laying back. He has not had any difficulty eating, drinking, swallowing, or breathing due to the swelling. He has never had a neck infection like this before. Denies a history of resistant infections. No nausea/vomiting. No lightheadedness or dizziness. He does not use tobacco products or alcohol He reports he is not supposed take atenolol or lisinopril but does not know why. Denies antibiotic allergies DNR/DNI, but would be okay with intubation for airway protection if needed Admission Exam (Per Admitting) Constitutional The patient is awake, alert and oriented 3, well developed and well nourished, normocephalic and atraumatic, lying in bed and in no acute distress. HEENT--PERRL, EOMI, mucous membranes and oropharynx mildly dry Neck--supple. No JVD. No bruits. Thyroid normal, trachea midline, no adenopathy. Heart--normal S1 and S2. No murmurs, rubs or gallops. Lungs--clear bilaterally, no respiratory distress, no accessory muscle use. Abdomen--normal bowel sounds and soft. Extremities--no cyanosis or clubbing. No edema. Dermatologic--normal skin turgor, normal color, no abnormal lymph nodes, no rash. Neurologic--cranial nerves II through XII grossly intact. Rheumatologic--normal range of motion. Psychiatric--normal affect. Discharge Data Consultations 01/23/24 14:22 ED Decision to Admit Stat Hospital Course (1) Parotitis: Left-sided parotitis with associated facial cellulitis Failured outpatient Augmentin x 5 days Given multiple hospital exposure contact points and possible causative organisms including Pseudomonas and MRSA we will expand coverage to Zosyn and continue daptomycin admission CT face with IV contrast: Left-sided parotitis, severe with surrounding cellulitis and inflammatory change into the lower neck. No obstructing stone. No bony abnormalities appreciated. No discreet abscess is noted. Large calcified right submandibular sialolith are noted. - Reviewed w/ ENT. Agree w/ med management as long as no abscess develops to require surgical drainage Recommended for inpatient management for throat parotitis and failure of outpatient antibiotics Avoid anticholinergic medications including amitriptyline/diphenhydramine Multimodal pain control No signs of right sided cellulitis associated with the existing sialoliths. -Discharge home on PO cefdinir for 5 more days (2) Atrial fibrillation: Atrial fibrillation, with slow HR, hr in the 40's and 50's Paroxysmal, no longer on anticoagulation after risks/benefits discussion due to GI bleeding Hold Sotalol and carvedilol on discharge. See cardiology before resuming (3) CAD (coronary artery disease): CAD, history of PCI Last echo 08/2023 with EF 65 to 70% mild aortic stenosis Continue statin, carvedilol, isosorbide, losartan, sotalol Patient reports his aspirin has been held due to GI bleeding. No GI bleeding the last 2 weeks. Will follow ENT progression over the next 24 hours, if no worsening that would require any type of surgical intervention recommend restarting aspirin 01/23 Patient denies chest pain or chest pressure, endorses some neck/jaw discomfort at the site of his infection. Denies dyspnea, chest pressure, chest pain on exertion recently (4) Chronic renal disease, stage III: CKD 3 No EILEEN on admission Renally dose medications as needed (5) Diabetes mellitus, type 2: DM2 Lantus continued Continue SSI 50/20 Goal BSG [id number] (6) Chronic anemia: History of anemia, GI bleed Recently discharged 12/27/2023 No indication for transfusion at time of admission Trend CBC daily Continue outpatient GI follow-up Aspirin restarted anemia present but stable Plan DVT prophylaxis: Heparin, CODE STATUS: DNR/DNI. Patient reports he would be okay with intubation if needed for airway protection outside of a cardiac/pulmonary arrest Disposition: [facility] d/c in the next 24 hrs Coding Level of Care Code 62068 INP/OBS DISCH >30 MIN Diagnoses Parotitis K11.20 Atrial fibrillation I48.91 Coronary artery disease of [place] artery of [place] heart with stable angina p ectoris I25.118 Coronary Disease-Associated Artery/Lesion type: [place] artery [place] vs. transplanted heart: [place] heart Associated angina: with stable angina Chronic renal disease, stage III N18.3 Diabetes mellitus, type 2 E11.9 Chronic anemia D64.9 Time Spent (min) 35
[2024-01-26 12:16] VITALS: BP 131/70
[2024-01-26 13:57] VITALS: PULSE 61
== END 2024-01-26 15:13 | DRG 155 ==
LOC: ED 10:48 → SUATTDRO 16:35 → 4W 16:35

== ENCOUNTER 2024-01-30 22:01 | Inpatient (IN) ==
[2024-01-30] MEDS ORDERED: VANCOMYCIN CONSULT ACTIVE PRN (22:12)
--- NOTE | 2024-01-30 22:14 | Emergency Department Note ---
History of Present Illness General Chief complaint: Cardiac Assessment Stated complaint: CARDIAC ASSESMENT History of Present Illness This 88-year-old male from the care home presents the ER for fever, chills and abdominal pain. Patient was recently treated for parotitis last week. Patient states he feels unwell. Patient denies headache, chest pain, dyspnea, cough, congestion. Apparently at the care home he was confused. He is answering questions for me. Home Medications Medication Instructions Recorded Confirmed Type albuterol sulfate 90 mcg/actuation 2 inh inhalation Q4H PRN Shortness 06/04/18 01/30/24 History breath activated powder inhaler Of Breath Or Wheezing aspirin 81 mg tablet,delayed 81 mg PO QAM 06/04/18 01/30/24 History release atorvastatin 80 mg tablet 80 mg PO HS 06/04/18 01/30/24 History nitroglycerin 0.4 mg sublingual 0.4 mg sublingual DIRECTED PRN 06/13/22 01/30/24 History tablet Chest Pain sotalol 80 mg tablet 40 mg PO . BID ON HOLD 06/13/22 01/30/24 History terazosin 2 mg capsule 2 mg PO HS 06/13/22 01/30/24 History finasteride 5 mg tablet 5 mg PO QAM 05/28/23 01/30/24 History furosemide 40 mg tablet (Lasix) 40 mg PO Q OTHER DAY 05/28/23 01/31/24 History furosemide 40 mg tablet 60 mg PO Q OTHER DAY 08/20/23 01/31/24 History insulin glargine 100 unit/mL 12 unit subcut QAM 12/24/23 01/30/24 History subcutaneous solution (Lantus U-100 Insulin) insulin lispro 100 unit/mL See Rx Instructions .Route .COMPLEX 12/24/23 01/30/24 History subcutaneous solution (Humalog U-100 Insulin) levothyroxine 50 mcg tablet 50 mcg PO DAILY 12/24/23 01/30/24 History magnesium hydroxide 400 mg/5 mL 30 ml PO DAILY PRN Constipation 12/24/23 01/30/24 History oral suspension (Milk of Magnesia) potassium chloride 20 mEq 20 meq PO QAM 12/24/23 01/30/24 History tablet,extended release(part/cryst) pantoprazole 40 mg tablet,delayed 40 mg PO BID #60 tabs 12/27/23 01/30/24 Rx release Saccharomyces boulardii 250 mg 250 mg PO QAM 01/23/24 01/30/24 History capsule (Florastor) bisacodyl 10 mg rectal suppository 10 mg [place] DAILY PRN Constipation 01/23/24 01/30/24 History (Dulcolax (bisacodyl)) menthol 0.44 %-zinc oxide 20.6 % 1 applic topical .EVERY SHIFT 01/23/24 01/30/24 History topical ointment (Calmoseptine) sodium phosphates 19 gram-7 118 ml [place] DAILY PRN Constipation 01/23/24 01/30/24 History gram/118 mL enema (Fleet Enema) tramadol 50 mg tablet 50 mg PO Q6H PRN PAIN 8-10 01/23/24 01/30/24 History cefdinir 300 mg capsule 300 mg PO BID 5 days #10 caps 01/26/24 01/30/24 Rx empagliflozin 25 mg tablet 12.5 mg PO QAM 01/30/24 01/30/24 History (Jardiance) multivit,Ca,min-iron 8 mg-folic 1 tab PO QAM 01/30/24 01/30/24 History acid 200 mcg-lycopene 600 mcg tablet (Centrum Men) polyethylene glycol 3350 17 4 g PO QAM 01/30/24 01/30/24 History gram/dose oral powder (Miralax) saliva substitute combo no.9 2 ea PO .Q 1 HOUR PRN Dry Mouth 01/30/24 01/30/24 History (Biotene Dry Mouth Oral Rinse mouthwash) Allergies Allergy/AdvReac Type Severity Reaction Status Date / Time atenolol Allergy Unknown Patient Verified 08/20/23 22:28 told "never to take again" candesartan [From Atacand] AdvReac Intermediate Hyperkalemi Verified 08/20/23 22:28 a lisinopril AdvReac Intermediate Increased Verified 08/20/23 22:28 creatinine, hypotension Past Med/Surg History Problem List (Updated 01/27/24 @ 00:07 by Background Daemon) Sinusitis (Acute) Elevated troponin (Acute) Pneumonia (Acute) Myocardial infarction type 2 (Acute) Sepsis (Acute) Cellulitis (Acute) Parotitis (Acute) Chronic anemia Parotitis Diverticular hemorrhage Diverticulitis (Acute) Hospital acquired PNA input by error, wrong diagnosis Encounter for pre-operative examination Urinary symptom or sign Penile ulcer Balanitis Fall Left-sided chest wall pain (Acute) Ambulatory dysfunction (Acute) Leukocytosis (Acute) Hernia, hiatal (Acute) Acute on chronic diastolic (congestive) heart failure Paroxysmal atrial fibrillation Chronic diastolic heart failure Leukocytosis (Acute) Iron deficiency anemia (Acute) Diverticulitis (Acute) Elevated troponin (Acute) Symptomatic anemia (Acute) Diverticulitis Lower GI bleed Symptomatic anemia Greater trochanteric bursitis of both hips Elevated troponin I level CHF (congestive heart failure) (Acute) Atrial fibrillation, rapid (Acute) DVT prophylaxis Elevated troponin Chronic diastolic CHF (congestive heart failure) Atrial fibrillation with RVR Inflammatory polyarthropathy Atrial fibrillation Follows with [facility] cardiology CAD (coronary artery disease) (Chronic) 2012- MARY to LAD BPH (benign prostatic hyperplasia) (Chronic) 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 Zhu Osteoarthritis (Chronic) Chronic back pain (Chronic) Scoliosis (Chronic) History of tooth extraction (Chronic) History of cataract surgery (Chronic) R/L Medical History (Updated 01/31/24 @ 01:43 by Sonali Luis PA-C) Lactic acidosis Acute blood loss anemia Abdominal pain Acute GI bleeding GI bleed Surgical History History of cardiac cath 2011 > stent x1 Family History Mother Coronary heart disease, Onset Age: 63 of [place] CHF (congestive heart failure) Myocardial infarction Father CHF (congestive heart failure) Pneumonia Sister Coronary heart disease History of CABG Rheumatic heart disease Social History Smoking Status: Never smoker Second Hand Exposure: No; Do You Dip or Chew Tobacco: No; Hx Alcohol Use: No Hx Substance Use: No Preferred Language: Chadian Communication Ability: Effective Communication Ability Comment: physically unable to write [employer] Technician Required: No Beliefs That Will Affect Care: None marital status: / Current Living Situation: Long-Term Current Living Situation Comment: currently at [facility] since July for rehab. plan to return home alone Feels Safe at Home: Yes Assistive Devices: Mechanical Lift and Wheelchair Review of Systems A total of 10 systems reviewed and were otherwise negative Physical Exam Vital Signs Vital Signs - 24 hr 01/30/24 22:08 01/30/24 22:09 01/30/24 22:09 Temperature 39.6 C H 39.6 C H Temperature Source Rectal Rectal Pulse Rate 106 H Pulse Rate [Finger] 106 H 106 H Pulse Rate from SpO2 Sensor Respiratory Rate 18 18 18 Respiratory Effort / Characteristics Non-Labored Spontaneous Non-Labored Spontaneous Respiratory Depth Normal Normal Blood Pressure Blood Pressure [Right Arm] 90/59 L 90/59 L Blood Pressure Mean Blood Pressure Mean [Right Arm] 69 69 Blood Pressure Position Blood Pressure Position [Right Arm] Lying Pulse Oximetry 94 94 94 Oxygen Delivery Method Room Air Room Air Room Air Sepsis Recent Fever Within 48 Hours Sepsis New/Unexplained Change in Mental Status Sepsis Action Taken by Nursing 01/30/24 22:14 01/30/24 22:19 01/30/24 22:24 Temperature 39.6 C H Temperature Source Rectal Pulse Rate 104 H 106 H Pulse Rate [Finger] 139 H Pulse Rate from SpO2 Sensor Respiratory Rate 18 22 Respiratory Effort / Characteristics Non-Labored Spontaneous Respiratory Depth Normal Blood Pressure 90/59 L Blood Pressure [Right Arm] 88/47 L Blood Pressure Mean 69 Blood Pressure Mean [Right Arm] 60 Blood Pressure Position Lying Blood Pressure Position [Right Arm] Lying Pulse Oximetry 94 94 Oxygen Delivery Method Room Air Room Air Sepsis Recent Fever Within 48 Hours Yes Sepsis New/Unexplained Change in Mental Status No Sepsis Action Taken by Nursing Physician Notified 01/30/24 22:30 01/30/24 23:09 01/30/24 23:14 Temperature Temperature Source Pulse Rate 91 H Pulse Rate [Finger] 102 H Pulse Rate from SpO2 Sensor 91 H Respiratory Rate 27 H 21 Respiratory Effort / Characteristics Spontaneous Respiratory Depth Blood Pressure 110/51 L Blood Pressure [Right Arm] 93/49 L Blood Pressure Mean 86 Blood Pressure Mean [Right Arm] 63 Blood Pressure Position Blood Pressure Position [Right Arm] Lying Pulse Oximetry 95 92 Oxygen Delivery Method Room Air Sepsis Recent Fever Within 48 Hours Sepsis New/Unexplained Change in Mental Status Sepsis Action Taken by Nursing 01/30/24 23:15 01/30/24 23:27 01/30/24 23:30 Temperature 37.2 C Temperature Source Oral Pulse Rate 94 H 96 H Pulse Rate [Finger] 102 H Pulse Rate from SpO2 Sensor 91 H Respiratory Rate 21 21 22 Respiratory Effort / Characteristics Spontaneous Respiratory Depth Normal Blood Pressure Blood Pressure [Right Arm] 93/49 L Blood Pressure Mean Blood Pressure Mean [Right Arm] 63 Blood Pressure Position Blood Pressure Position [Right Arm] Lying Pulse Oximetry 95 92 Oxygen Delivery Method Room Air Sepsis Recent Fever Within 48 Hours Sepsis New/Unexplained Change in Mental Status Sepsis Action Taken by Nursing 01/30/24 23:30 01/30/24 23:42 01/31/24 00:06 Temperature Temperature Source Pulse Rate 94 H 92 H Pulse Rate [Finger] Pulse Rate from SpO2 Sensor Respiratory Rate 20 26 H Respiratory Effort / Characteristics Respiratory Depth Blood Pressure 103/49 L Blood Pressure [Right Arm] Blood Pressure Mean 79 Blood Pressure Mean [Right Arm] Blood Pressure Position Blood Pressure Position [Right Arm] Pulse Oximetry Oxygen Delivery Method Sepsis Recent Fever Within 48 Hours Sepsis New/Unexplained Change in Mental Status Sepsis Action Taken by Nursing 01/31/24 00:18 01/31/24 00:20 01/31/24 00:20 Temperature Temperature Source Pulse Rate 87 Pulse Rate [Finger] Pulse Rate from SpO2 Sensor Respiratory Rate 21 Respiratory Effort / Characteristics Respiratory Depth Blood Pressure 102/43 L 102/43 L Blood Pressure [Right Arm] Blood Pressure Mean 61 61 Blood Pressure Mean [Right Arm] Blood Pressure Position Blood Pressure Position [Right Arm] Pulse Oximetry Oxygen Delivery Method Sepsis Recent Fever Within 48 Hours Sepsis New/Unexplained Change in Mental Status Sepsis Action Taken by Nursing 01/31/24 00:30 01/31/24 00:30 01/31/24 00:30 Temperature Temperature Source Pulse Rate 89 Pulse Rate [Finger] Pulse Rate from SpO2 Sensor Respiratory Rate 22 Respiratory Effort / Characteristics Respiratory Depth Blood Pressure 89/43 L 89/43 L Blood Pressure [Right Arm] Blood Pressure Mean 60 60 Blood Pressure Mean [Right Arm] Blood Pressure Position Blood Pressure Position [Right Arm] Pulse Oximetry Oxygen Delivery Method Sepsis Recent Fever Within 48 Hours Sepsis New/Unexplained Change in Mental Status Sepsis Action Taken by Nursing 01/31/24 00:51 01/31/24 00:57 01/31/24 01:00 Temperature 37.2 C Temperature Source Oral Pulse Rate 88 89 Pulse Rate [Finger] 102 H Pulse Rate from SpO2 Sensor Respiratory Rate 18 16 16 Respiratory Effort / Characteristics Spontaneous Respiratory Depth Normal Blood Pressure Blood Pressure [Right Arm] 110/48 L Blood Pressure Mean Blood Pressure Mean [Right Arm] 68 Blood Pressure Position Blood Pressure Position [Right Arm] Lying Pulse Oximetry 92 Oxygen Delivery Method Room Air Sepsis Recent Fever Within 48 Hours Sepsis New/Unexplained Change in Mental Status Sepsis Action Taken by Nursing 01/31/24 01:00 Temperature Temperature Source Pulse Rate Pulse Rate [Finger] Pulse Rate from SpO2 Sensor Respiratory Rate Respiratory Effort / Characteristics Respiratory Depth Blood Pressure 110/48 L Blood Pressure [Right Arm] Blood Pressure Mean 68 Blood Pressure Mean [Right Arm] Blood Pressure Position Blood Pressure Position [Right Arm] Pulse Oximetry Oxygen Delivery Method Sepsis Recent Fever Within 48 Hours Sepsis New/Unexplained Change in Mental Status Sepsis Action Taken by Nursing VITALS: Vitals are noted on the nurse's note and reviewed by myself. Vital signs febrile. GENERAL: Pleasant patient, in no acute distress, nondiaphoretic, well-developed well-nourished. SKIN: The skin was without rashes, erythema, edema, or bruising. There is no tenting of the skin. Capillary reflex less than 2 seconds. HEAD: Normocephalic atraumatic. EARS: External auditory canals clear EYES: Pupils equal round and reactive to light and accommodation. Conjunctivae without injection, sclerae without icterus. Extraocular movements intact. NOSE: Patent, no discharge. MOUTH: Mucous membranes moist. Pharynx without erythema or exudate. Uvula midline. Airway patent. Tongue does not deviate. NECK: Supple without nuchal rigidity. No lymphadenopathy. No thyromegaly. Cervical spine is nontender. No JVD. HEART: Regular rate and rhythm LUNGS: Clear to auscultation bilaterally without wheezes, rales or rhonchi. No retractions or accessory muscle use. ABDOMEN: Positive bowel sounds x 4. Normal tympanic percussion. Soft, tender lower abdomen, without masses or organomegaly. Mitchell sign negative. No guarding or rebound tenderness. No CVA tenderness MUSCULOSKELETAL: No muscle atrophy, erythema, or edema noted. NEURO: Patient was alert and oriented to person place and time. Normal sensation to light and sharp touch. No focal neurological deficits. Course Administered Medications Sodium Chloride (Nss) 500 mls @ 80 mls/hr IV .Q6H15M ANNALISA Stop: 01/31/24 06:44 Last Admin: 01/31/24 00:37 Dose: 80 mls/hr Documented By: NIVIA Discontinued Medications Sodium Chloride (Nss) 1,000 mls @ 999 mls/hr IV .Q1H1M ANNALISA Stop: 01/31/24 00:15 Last Infusion: 01/31/24 00:37 Dose: Infused Documented By: Admin: 01/30/24 23:32 Dose: 999 mls/hr Documented By: Infusion: 01/30/24 23:31 Dose: Infused Documented By: Admin: 01/30/24 22:30 Dose: 999 mls/hr Documented By: HE Piperacillin Sod/Tazobactam Sod (Zosyn) 4.5 gm in 100 mls @ 200 mls/hr IV NOW ONE; Protocol Stop: 01/30/24 22:41 Last Infusion: 01/30/24 23:26 Dose: Infused Documented By: Admin: 01/30/24 22:41 Dose: 200 mls/hr Documented By: ANTONITETA Acetaminophen (Ofirmev) 1,000 mg in 100 mls @ 400 mls/hr IV NOW STA Stop: 01/30/24 22:26 Last Infusion: 01/30/24 22:43 Dose: Infused Documented By: Admin: 01/30/24 22:28 Dose: 400 mls/hr Documented By: HE Vancomycin HCl 1,250 mg/ (Dextrose) 525 mls @ 200 mls/hr IV NOW ONE Stop: 01/31/24 00:41 Last Admin: 01/30/24 23:55 Dose: 200 mls/hr Documented By: NIVIA Sodium Chloride (Nss) 1,000 mls @ 999 mls/hr IV .Q1H1M ONE Stop: 01/30/24 23:26 Last Infusion: 01/30/24 23:32 Dose: Infused Documented By: Admin: 01/30/24 22:28 Dose: 999 mls/hr Documented By: HE Lactated Ringer's (Lr) 500 mls @ 999 mls/hr IV .Q31M ONE Stop: 01/31/24 01:29 Last Admin: 01/31/24 01:16 Dose: 999 mls/hr Documented By: NIVIA Ioversol (Optiray 320 125ml) 116 ml IV ONCE ONE Stop: 01/30/24 22:57 Last Admin: 01/30/24 22:56 Dose: 116 ml Documented By: JOSE Critical Care Time Critical Care Time: Yes Total Critical Care Time: 35 I have personally spent 35 minutes of critical care time in the direct management of this patient. This includes bedside care, interpretation of diagnostic studies, and testing, discussion with consultants, patient, and family members, and other required patient management activities. This 35 minutes is in excess of all separately billable procedures. Medical Decision Making Medical Records Attestation: I reviewed the patient's medical records. Home Medications Current Medication List: was personally reviewed by me Laboratory Data Attestation: I reviewed the patient's lab results. 01/30/24 22:25 01/30/24 22:25 Lab Results 01/30/24 01/30/24 01/30/24 Range/Units 22:15 22:25 22:38 WBC 15.94 H (4.8-10.8) K/ul RBC 3.52 L (4.70-6.10) M/uL Hgb 8.4 L (14.0-18.0) g/dl POC Hgb 8.5 L (14.0-18.0) g/dl Hct 27.7 L (42.0-52.0) % POC Hct 25 L (42-52) % MCV 78.7 L (80.0-100.0) fL MCH 23.9 L (25.0-34.0) pg MCHC 30.3 L (32.0-36.0) g/dL RDW Std Deviation 53.1 H (36.4-46.3) fL RDW Coeff of Coty 18.6 H (11.5-14.5) % Plt Count 275 (130-400) K/uL MPV 11.0 (9.4-12.4) fL Immature Gran % (Auto) 1.1 % Neut % (Auto) 71.2 % Lymph % (Auto) 12.2 % [place] % (Auto) 14.1 % Eos % (Auto) 1.1 % Baso % (Auto) 0.3 % Neut # (Auto) 11.35 H (1.40-6.50) K/uL Lymph # (Auto) 1.95 (1.20-3.40) K/uL [place] # (Auto) 2.25 H (0.11-0.59) K/uL Eos # (Auto) 0.18 (0.00-0.50) K/uL Baso # (Auto) 0.04 (0.00-0.20) K/uL Immature Gran # (Auto) 0.17 (0.01-0.20) K/uL VBG pH 7.42 H (7.36-7.41) VBG pCO2 41 (38-50) mmHg VBG pO2 36 mmHg VBG HCO3 27 mmol/L VBG O2 Saturation 65.7 % VBG Base Excess 1.9 mEq/L POC Sodium 139 (135-144) mmol/L Sodium 139 (136-145) mmol/L POC Potassium 3.6 (3.3-5.0) mmol/L Potassium 3.7 (3.5-5.1) mmol/L POC Chloride 100 L (101-112) mmol/L Chloride 103 (98-107) mmol/L Carbon Dioxide 27 (21-32) mmol/L POC Total CO2 24 (24-31) mmol/L Anion Gap 9 (3-11) POC Anion Gap 20.0 (16-25) mmol/L POC BUN 15 (7-18) mg/dl BUN 17 (6-23) mg/dl Creatinine 0.92 (0.6-1.4) mg/dl POC Creatinine 1.0 (0.6-1.3) mg/dl Est Cr Clr Drug Dosing 48.8 ml/min eGFR 79.51 BUN/Creatinine Ratio 18.5 (10-20) Glucose 228 H (70-99(Fasting)) mg/dl POC Glucose (other) 233 H (70-99) mg/dl Lactate 3.4 H* (0.4-2.0) mmol/L Calcium 8.2 L (8.6-10.3) mg/dl POC Ioniz Calcium [place] 1.13 (1.12-1.32) mmol/l Magnesium 1.8 (1.7-2.4) mg/dl Total Bilirubin 0.5 (0.2-1.0) mg/dl Direct Bilirubin 0.1 (0-0.2) mg/dl AST 8 L (13-39) U/L ALT 7 (7-52) U/L Alkaline Phosphatase 52 (34-104) U/L Troponin I High Sens 30.7 H (0-20) pg/ml Total Protein 5.7 L (6.0-8.3) gm/dl Albumin 2.6 L (3.4-5.0) gm/dl Procalcitonin 0.98 H (0-0.5) ng/ml Urine Color Yellow Urine Appearance Clear (Clear) Urine pH 5.5 (4.5-7.5) Ur Specific [place] 1.021 (1.000-1.030) Urine Protein Negative (Negative) Urine Glucose (UA) 3+ H (Negative) Urine Ketones Negative (Negative) Urine Blood Negative (Negative) Urine Nitrite Negative (Negative) Urine Bilirubin Negative (Negative) Urine Urobilinogen Negative (Negative) Ur Leukocyte Esterase Negative (Negative) Adenovirus (PCR) (NotDetected) B. pertussis DNA (PCR) (NotDetected) B.parapertussis DNA PCR (NotDetected) C. pneumoniae DNA (PCR) (NotDetected) Coronavirus OC43 (PCR) (NotDetected) Coronavirus HKU1 (PCR) (NotDetected) Coronavirus 229E (PCR) (NotDetected) SARS-CoV-2 (PCR) (NotDetected) Coronavirus NL63 (PCR) (NotDetected) Human Metapneumovir PCR (NotDetected) Influenza Type A (PCR) (NotDetected) Influenza Type B (PCR) (NotDetected) M. pneumoniae (PCR) (NotDetected) Parainfluenza 1 (PCR) (NotDetected) Parainfluenza 2 (PCR) (NotDetected) Parainfluenza 3 (PCR) (NotDetected) Parainfluenza 4 (PCR) (NotDetected) RSV (PCR) (NotDetected) Entero/Rhino (PCR) (NotDetected) 01/30/24 01/31/24 01/31/24 Range/Units 22:45 00:22 01:15 WBC (4.8-10.8) K/ul RBC (4.70-6.10) M/uL Hgb (14.0-18.0) g/dl POC Hgb (14.0-18.0) g/dl Hct (42.0-52.0) % POC Hct (42-52) % MCV (80.0-100.0) fL MCH (25.0-34.0) pg MCHC (32.0-36.0) g/dL RDW Std Deviation (36.4-46.3) fL RDW Coeff of Coty (11.5-14.5) % Plt Count (130-400) K/uL MPV (9.4-12.4) fL Immature Gran % (Auto) % Neut % (Auto) % Lymph % (Auto) % [place] % (Auto) % Eos % (Auto) % Baso % (Auto) % Neut # (Auto) (1.40-6.50) K/uL Lymph # (Auto) (1.20-3.40) K/uL [place] # (Auto) (0.11-0.59) K/uL Eos # (Auto) (0.00-0.50) K/uL Baso # (Auto) (0.00-0.20) K/uL Immature Gran # (Auto) (0.01-0.20) K/uL VBG pH (7.36-7.41) VBG pCO2 (38-50) mmHg VBG pO2 mmHg VBG HCO3 mmol/L VBG O2 Saturation % VBG Base Excess mEq/L POC Sodium (135-144) mmol/L Sodium (136-145) mmol/L POC Potassium (3.3-5.0) mmol/L Potassium (3.5-5.1) mmol/L POC Chloride (101-112) mmol/L Chloride (98-107) mmol/L Carbon Dioxide (21-32) mmol/L POC Total CO2 (24-31) mmol/L Anion Gap (3-11) POC Anion Gap (16-25) mmol/L POC BUN (7-18) mg/dl BUN (6-23) mg/dl Creatinine (0.6-1.4) mg/dl POC Creatinine (0.6-1.3) mg/dl Est Cr Clr Drug Dosing ml/min eGFR BUN/Creatinine Ratio (10-20) Glucose (70-99(Fasting)) mg/dl POC Glucose (other) (70-99) mg/dl Lactate Cancelled 1.3 (0.4-2.0) mmol/L Calcium (8.6-10.3) mg/dl POC Ioniz Calcium [place] (1.12-1.32) mmol/l Magnesium (1.7-2.4) mg/dl Total Bilirubin (0.2-1.0) mg/dl Direct Bilirubin (0-0.2) mg/dl AST (13-39) U/L ALT (7-52) U/L Alkaline Phosphatase (34-104) U/L Troponin I High Sens 26.0 H (0-20) pg/ml Total Protein (6.0-8.3) gm/dl Albumin (3.4-5.0) gm/dl Procalcitonin (0-0.5) ng/ml Urine Color Urine Appearance (Clear) Urine pH (4.5-7.5) Ur Specific [place] (1.000-1.030) Urine Protein (Negative) Urine Glucose (UA) (Negative) Urine Ketones (Negative) Urine Blood (Negative) Urine Nitrite (Negative) Urine Bilirubin (Negative) Urine Urobilinogen (Negative) Ur Leukocyte Esterase (Negative) Adenovirus (PCR) Not Detected (NotDetected) B. pertussis DNA (PCR) Not Detected (NotDetected) B.parapertussis DNA PCR Not Detected (NotDetected) C. pneumoniae DNA (PCR) Not Detected (NotDetected) Coronavirus OC43 (PCR) Not Detected (NotDetected) Coronavirus HKU1 (PCR) Not Detected (NotDetected) Coronavirus 229E (PCR) Not Detected (NotDetected) SARS-CoV-2 (PCR) Not Detected (NotDetected) Coronavirus NL63 (PCR) Not Detected (NotDetected) Human Metapneumovir PCR Not Detected (NotDetected) Influenza Type A (PCR) Not Detected (NotDetected) Influenza Type B (PCR) Not Detected (NotDetected) M. pneumoniae (PCR) Not Detected (NotDetected) Parainfluenza 1 (PCR) Not Detected (NotDetected) Parainfluenza 2 (PCR) Not Detected (NotDetected) Parainfluenza 3 (PCR) Not Detected (NotDetected) Parainfluenza 4 (PCR) Not Detected (NotDetected) RSV (PCR) Not Detected (NotDetected) Entero/Rhino (PCR) Not Detected (NotDetected) Imaging Data Attestation: I personally reviewed and interpreted this imaging study as follows: Radiologist's Impression: Abdomen/Pelvis CT 01/30/24 22:08 Exam(s): CT ABDOMEN + PELVIS With Contrast IV Amt: 116 cc optiray 320 EXAM: CT Abdomen and Pelvis With Intravenous Contrast CLINICAL HISTORY: Reason for exam: sepsis, lower abd pain. TECHNIQUE: Axial computed tomography images of the abdomen and pelvis with intravenous contrast. CTDI is 6.9 mGy and DLP is 143.45 mGy-cm. Automated exposure control was utilized for the study. A dose lowering technique was utilized adhering to the principles of ALARA. CONTRAST: Patient received 116 cc optiray 320 of IV contrast COMPARISON: CT abdomen/pelvis: 12/23/2023 FINDINGS: Motion-induced image degradation limits diagnostic sensitivity of the exam. Lung bases: Again noted a large size hiatal hernia with organoaxial rotation and with interval increased wall thickening and small/trace bilateral pleural fluid. Left lung base compressive mild atelectasis/infiltrates. Bilateral bronchial wall thickening/mild dilatation. Cardiomegaly. ABDOMEN: Liver: Mild diffuse steatosis. No mass. Gallbladder and bile ducts: A moderately distended gallbladder. No calcified stones. No ductal dilation. Pancreas: Unremarkable. No discernible mass. No ductal dilation. Spleen: Mild splenomegaly, 14 cm in craniocaudal length. Adrenals: Unremarkable. No mass. Kidneys and ureters: A small 8.5 mm right renal cortical cyst.. No solid mass. No hydronephrosis. Stomach and bowel: A large size hiatal hernia, entire stomach is above the diaphragm. Normal caliber small bowel. Extensive pancolonic diverticulosis coli. There is wall thickening of the distal descending colon and proximal sigmoid with pericolonic mild reactive fat stranding in the lower abdomen/upper pelvis, concerning for chronic diverticulitis, although cannot exclude superimposed mild acute diverticulitis. There is liquid stool in the cecum/ascending colon. Large amount of formed stool is seen in a 7.5 cm distended rectosigmoid (series 1100, image 57, series 11 image 290). No obstruction. No mucosal thickening. Right hepatodiaphragmatic interposition of the colon. PELVIS: Appendix: No findings to suggest acute appendicitis. Bladder: There is a reduced capacity urinary bladder with up to 10 mm mucosal/right wall thickening, concerning for cystitis (series 11 image 283). No mass. Reproductive: A normal size prostate with small rounded coarse calcifications. ABDOMEN and PELVIS: Intraperitoneal space: Unremarkable. No free air. No significant fluid collection. Bones/joints: No acute fracture. No dislocation. Moderate rotatory lumbar levoscoliosis. Multilevel advanced degenerative spondylosis. Soft tissues: Bilaterally hip regions/flanks likely intramuscular lipomas are present Vasculature: Unremarkable. No abdominal aortic aneurysm. Lymph nodes: No lymphadenopathy by CT size criteria.. IMPRESSION: Again noted a large size hiatal hernia with rotation and with interval increased gastric wall thickening and bilateral small/trace pleural fluid, suspect acute gastritis in the appropriate clinical context. Extensive pancolonic diverticulosis coli. Wall thickening of the distal descending colon and proximal sigmoid associated with pericolonic mild reactive fat stranding in the left side lower abdomen/upper pelvis, concerning for chronic diverticulitis, although cannot exclude superimposed mild acute diverticulitis. A reduced capacity urinary bladder with up to 10 mm right wall thickening, concerning for cystitis. Clinical correlation advised. Moderate rotatory lumbar levoscoliosis. Advanced multilevel degenerative spondylosis. . Electronically signed by: Juan Francisco Bautista MD, DABR 01/31/24 00:55 AM Chest CTA 01/30/24 22:17 Exam(s): CTA CHEST IV Amt: 116 ml optiray 320 EXAM: CT Angiography Chest With Intravenous Contrast CLINICAL HISTORY: Reason for exam: PE. TECHNIQUE: Axial computed tomographic angiography images of the chest with intravenous contrast. CTDI is 20.91 mGy and DLP is 1040.98 mGy-cm. Automated exposure control was utilized for the study. A dose lowering technique was utilized adhering to the principles of ALARA. MIP reconstructed images were created and reviewed. COMPARISON: CT chest: 08/21/2023 FINDINGS: Diagnostic sensitivity is reduced by motion artifact. Pulmonary arteries: No pulmonary embolism. A 34 mm enlarged right central pulmonary artery. Aorta: No acute findings. Diffuse calcified atherosclerosis. No thoracic aortic aneurysm. Lungs: Central airways are patent. Diffuse bilateral bronchial wall thickening/mild/moderate tubular bronchiectasis and bronchiolectasis. Moderate centrilobular emphysema. Left lower lobe consolidation/basal segment collapse associated with corresponding/surrounding mild interstitial infiltrates. Pleural space: Trace bilateral pleural fluid/effusion.. No pneumothorax. Heart: Cardiomegaly. Anteriorly trace pericardial effusion. No significant pericardial effusion. No evidence of RV dysfunction. Multivessel's calcified coronary arterial atherosclerosis. Bones/joints: No acute fracture. No dislocation. Mild dextroscoliosis and mildly increased kyphosis. Multilevel degenerative spondylosis. Soft tissues: Large size hiatal hernia with organoaxial rotation and interval increased gastric wall thickness. Lymph nodes: Small mediastinal lymph nodes.. No enlarged lymph nodes. Other findings: Significant bilateral gynecomastia. . Concurrently performed CT abdomen/pelvis reported separately. IMPRESSION: No evidence of pulmonary embolism, aortic aneurysm or dissection. Cardiomegaly. Significant multivessel coronary arterial and aortic calcified atherosclerosis. Bilateral bronchial wall thickening, mild bronchiectasis/bronchiolectasis and moderate centrilobular pulmonary emphysema. Left lower lobe consolidation or basal segment collapse. Surrounding mild interstitial infiltrates. Small/trace bilateral pleural effusion. . Electronically signed by: Juan Francisco Bautista MD, DABR 01/31/24 01:[address] 01/30/24 22:17 Exam(s): CT FACIAL With Contrast IV Amt: 116 ml optiray 320 EXAM: CT Maxillofacial With Intravenous Contrast CLINICAL HISTORY: Reason for exam: fever, AMS, recent parotitis. TECHNIQUE: Axial computed tomography images of the face with intravenous contrast. CTDI is 20.71 mGy and DLP is 730.74 mGy-cm. Automated exposure control was utilized for the study. A dose lowering technique was utilized adhering to the principles of ALARA. CONTRAST: Patient received 116 ml optiray 320 of IV contrast COMPARISON: None. FINDINGS: Bones/joints: No acute facial bone fracture. Soft tissues: Approximately 3.0 cm, 0.6 cm and 2.0 cm, 1.8 cm wide calcified stones are seen inside the excretory duct of the right submandibular salivary gland/Sialolithiasis (series 3 image 11, series 901 image 55). Orbits: Unremarkable. Sinuses: Near completely opacified right maxillary sinus with abnormal soft tissue and with an air-fluid level/severe acute on chronic sinusitis.. Other findings: Advanced degenerative spondylitic changes seen at C5-C6 level.. IMPRESSION: Multiple up to 3 cm large calcified stones are seen inside the excretory duct of the right submandibular salivary gland/sialolithiasis. Near completely opacified right maxillary sinus with abnormal soft tissues and with an air-fluid level, consistent with severe acute and chronic sinusitis. . Electronically signed by: Juan Francisco Bautista MD, DABR 01/31/24 01:37 AM MDM Narrative Prior records/ancillary studies reviewed. Triage Nursing notes reviewed. Additional history obtained from EMS. The patient's history was concerning for fever. Differential diagnosis: Etiologies such as sepsis, UTI, pneumonia, metabolic, electrolyte abnormalities, cardiac sources, intracerebral event, toxicologic, neurologic, as well as others were entertained. Physical examination: As above. Pertinent findings were febrile. Vital signs reviewed and revealed febrile. ER treatment provided: IV fluid resuscitation with Normal saline solution, 2000 mL bolus. Blood and urine cultures Antibiotics: Zosyn and vancomycin ordered An order was placed for continuous cardiac monitoring. The monitor shows a rate of 60-1 20 with a A-fib rhythm per my interpretation. On reassessment the patient vital signs improved. Diagnostics interpretation by me: ECG: Ordered for weakness EKG: Irregularly irregular with rate of 113. Impression A-fib RVR independently interpreted by myself The labs Independently Interpreted by myself revealed leukocytosis on CBC. Chemistry panel revealed glucose 228 LFTs revealed. Cardiac enzymes were slightly elevated concerning for type II MA Negative urine Stable anemia per chart review VBG was reviewed and no DKA Serum Lactate measurement was 3.4. Blood and urine cultures are pending. Imaging studies: Chest xray revealed and concerning for pleural effusions unchanged without free air per my independent interpretation CTs were reviewed and read by radiology as above Consultation: A consultation was placed with the hospitalist. The case was discussed and diagnostics were reviewed. The patient was evaluated in the ER for further treatment. Exam and history seem consistent with sepsis with pneumonia, sinusitis and slightly elevated troponin. Blood pressure improved with fluids. Patient was started on broad-spectrum antibiotics. Blood cultures were done. He was hydrated as above. He was reassessed multiple times. Medicine was consulted case discussed. He will be admitted to the medical service. Patient is agreeable to treatment plan of admission. Impression & Plan Sepsis, Myocardial infarction type 2, Pneumonia, Elevated troponin, Sinusitis Discharge Plan Visit Data Chief Complaint: Cardiac Assessment Stated Complaint: CARDIAC ASSESMENT ED Provider: Arjun Miranda ED Midlevel Provider: Sonali Luis Discharge Problem: Sepsis, Myocardial infarction type 2, Pneumonia, Elevated troponin, Sinusitis Patient Disposition: Admitted As Inpatient Condition: Fair Forms Stand Alone Forms: My [facility] Prescriptions Prescriptions: No Action atorvastatin 80 mg Tablet 80 mg PO HS aspirin 81 mg Tablet,Delayed Release (Dr/Ec) 81 mg PO QAM Hold Instructions: Resume on 01/03/24. resume in 1 week albuterol sulfate 90 mcg/actuation Aerosol Powdr Breath Activated 2 inh INHALATION Q4H PRN (Reason: Shortness Of Breath Or Wheezing) Rx Instructions: [id number] sotalol 80 mg tablet 40 mg PO . BID ON HOLD Hold Instructions: Resume on 02/02/24. terazosin 2 mg capsule 2 mg PO HS nitroglycerin 0.4 mg tablet, sublingual 0.4 mg sublingual DIRECTED MDD 3 DOSES/15 MINUTES PRN (Reason: Chest Pain) furosemide [Lasix] 40 mg tablet 40 mg PO Q OTHER DAY Patient Comments: takes 1/2 in am and 1/2 at night Rx Instructions: Alternate with 60 mg QOD. finasteride 5 mg tablet 5 mg PO QAM insulin lispro [Humalog U-100 Insulin] 100 unit/mL solution See Rx Instructions .ROUTE .COMPLEX Rx Instructions: 350-400 = 8 units 401-450 = 12 units 451-500 = 16 units 501-550 = 18 units, recheck in 2 hours 551 - 1000 = 20 units, recheck in 1 hour insulin glargine [Lantus U-100 Insulin] 100 unit/mL Solution 12 unit SUBCUT QAM potassium chloride 20 mEq tablet,ER particles/crystals 20 meq PO QAM magnesium hydroxide [Milk of Magnesia] 400 mg/5 mL Suspension 30 ml PO DAILY PRN (Reason: Constipation) levothyroxine 50 mcg tablet 50 mcg PO DAILY pantoprazole 40 mg tablet,delayed release (DR/EC) 40 mg PO BID Qty: 60 0RF polyethylene glycol 3350 [Miralax] 17 gram/dose powder 4 g PO QAM Jardiance 25 mg Tablet 12.5 mg PO QAM Centrum Men 8 mg iron- 200 mcg-600 mcg Tablet 1 tab PO QAM Biotene Dry Mouth Oral Rinse Mouthwash 2 ea PO .Q 1 HOUR PRN (Reason: Dry Mouth) Rx Instructions: 2 SPRAYS EVERY 1 HOUR NEEDED..SAUD SELF ADMINISTER furosemide 40 mg tablet 60 mg PO Q OTHER DAY tramadol 50 mg tablet 50 mg PO Q6H PRN (Reason: PAIN 8-10) bisacodyl [Dulcolax (bisacodyl)] 10 mg Suppository 10 mg [place] DAILY PRN (Reason: Constipation) Fleet Enema 19-7 gram/118 mL Enema 118 ml [place] DAILY PRN (Reason: Constipation) Saccharomyces boulardii [Florastor] 250 mg Capsule 250 mg PO QAM menthol-zinc oxide [Calmoseptine] 0.44-20.6 % Ointment 1 applic TOPICAL .EVERY SHIFT Rx Instructions: apply to sacrum every shift cefdinir 300 mg capsule 300 mg PO BID 5 Days Qty: 10 0RF Referrals Referrals: Osmar Anderson III, MD [Primary Care Provider] - Discharge Problem: Sepsis Qualifiers: Sepsis type: sepsis due to unspecified organism Sepsis acute organ dysfunction status: unspecified Qualified Code(s): A41.9 - Sepsis, unspecified organism
[2024-01-30] MEDS: SODIUM CHLORIDE 0.9% 1,000 ML IV ONE (22:28)
[2024-01-30] MEDS: ACETAMINOPHEN 1,000 MG/100 ML VIAL IV STA (22:28)
[2024-01-30 22:30] LABS: Appearance Urine Clear (Clear); Bilirubin Urine Negative (Negative); Blood Urine Negative (Negative); Color Urine Yellow; Glucose Urine UA 3+ (Negative); Ketones Urine Negative (Negative); Leukocyte Esterase Urine Negative (Negative); Nitrite Urine Negative (Negative); Protein Urine Negative (Negative); Specific Gravity Urine 1.021 (1.000-1.030); Urobilinogen Urine Negative (Negative); pH Urine 5.5 (4.5-7.5)
[2024-01-30] MEDS: SODIUM CHLORIDE 0.9% 1,000 ML IV SCH (22:30)
[2024-01-30] MEDS: PIPERACILLIN/TAZOBACTAM 4.5 GM/100 ML BAG IV ONE (22:41)
[2024-01-30 22:49] LABS: Base Excess VBG 1.9 mEq/L; Basophils # (auto) 0.04 K/uL (0.00-0.20); Basophils % (auto) 0.3 %; Eosinophils # (auto) 0.18 K/uL (0.00-0.50); Eosinophils % (auto) 1.1 %; HCO3 VBG 27 mmol/L; Hematocrit (blood only) 27.7 % (42.0-52.0); Hemoglobin 8.4 g/dl (14.0-18.0); Immature Granulocytes # (auto) 0.17 K/uL (0.01-0.20); Immature Granulocytes % (auto) 1.1 %; Lymphocytes # (auto) 1.95 K/uL (1.20-3.40); Lymphocytes % (auto) 12.2 %; Mean Corpuscular Hemoglobin 23.9 pg (25.0-34.0); Mean Corpuscular Hgb Conc 30.3 g/dL (32.0-36.0); Mean Corpuscular Volume 78.7 fL (80.0-100.0); Monocytes # (auto) 2.25 K/uL (0.11-0.59); Monocytes % (auto) 14.1 %; Neutrophils # (auto) 11.35 K/uL (1.40-6.50); Neutrophils % (auto) 71.2 %; Oxygen Saturation VBG 65.7 %; PCO2 VBG 41 mmHg (38-50); PO2 VBG 36 mmHg; Platelet Count 275 K/uL (130-400); RDW Coefficient of Variation 18.6 % (11.5-14.5); RDW Standard Deviation 53.1 fL (36.4-46.3); Red Blood Count 3.52 M/uL (4.70-6.10); White Blood Count 15.94 K/ul (4.8-10.8); pH VBG 7.42 (7.36-7.41)
[2024-01-30 22:54] LABS: iSTAT Hemoglobin 8.5 g/dl (14.0-18.0); iSTAT Ionized Calcium 1.13 mmol/l (1.12-1.32); iSTAT Potassium 3.6 mmol/L (3.3-5.0)
[2024-01-30] MEDS: OPTIRAY 320 125ml IV ONE (22:56)
[2024-01-30 23:07] LABS: Albumin Level 2.6 gm/dl (3.4-5.0); BUN Creatinine Ratio 18.5 (10-20); Bilirubin Direct 0.1 mg/dl (0-0.2); Bilirubin,Total 0.5 mg/dl (0.2-1.0); Calcium 8.2 mg/dl (8.6-10.3); Creatinine Clr Calc Pharmacy 48.8 ml/min; Magnesium 1.8 mg/dl (1.7-2.4); Potassium 3.7 mmol/L (3.5-5.1); Total Protein 5.7 gm/dl (6.0-8.3)
[2024-01-30 23:13] LABS: Troponin I High Sensitivity 30.7 pg/ml (0-20)
--- NOTE | 2024-01-30 23:16 | Emergency Department Note ---
ED Visit Note I was consulted by the Advanced Practice Provider Sonali Luis PA-C. I personally made/approved the management plan and take responsibility for the patient management. I performed a substantive portion of the visit. This includes the aspects of: -History/Physical/Personally seeing the patient -MDM .
[2024-01-30 23:43] LABS: Adenovirus PCR Not Detected (NotDetected); Bordetella parapertussis PCR Not Detected (NotDetected); Bordetella pertussis PCR Not Detected (NotDetected); Chlamydia pneumoniae PCR Not Detected (NotDetected); Coronavirus 229E PCR Not Detected (NotDetected); Coronavirus CoV-2 (COVID19)PCR Not Detected (NotDetected); Coronavirus HKU1 PCR Not Detected (NotDetected); Coronavirus NL63 PCR Not Detected (NotDetected); Coronavirus OC43PCR Not Detected (NotDetected); Human Metapneumovirus PCR Not Detected (NotDetected); Influenza A PCR Not Detected (NotDetected); Influenza B PCR Not Detected (NotDetected); Mycoplasma pneumoniae PCR Not Detected (NotDetected); Parainfluenza Virus 1 PCR Not Detected (NotDetected); Parainfluenza Virus 2 PCR Not Detected (NotDetected); Parainfluenza Virus 3 PCR Not Detected (NotDetected); Parainfluenza Virus 4 PCR Not Detected (NotDetected); Respiratory Syncytial VirusPCR Not Detected (NotDetected); Rhinovirus/Enterovirus PCR Not Detected (NotDetected)
[2024-01-30] MEDS: VANCOMYCIN HCL 1,250 MG in DEXTROSE 5% 500 ML IV ONE (23:55)
[2024-01-31] MEDS: SODIUM CHLORIDE 0.9% 500 ML IV SCH (00:37)
--- NOTE | 2024-01-31 00:56 | CT Scan Report ---
Exam(s): CT ABDOMEN + PELVIS With Contrast IV Amt: 116 cc optiray 320 EXAM: CT Abdomen and Pelvis With Intravenous Contrast CLINICAL HISTORY: Reason for exam: sepsis, lower abd pain. TECHNIQUE: Axial computed tomography images of the abdomen and pelvis with intravenous contrast. CTDI is 6.9 mGy and DLP is 143.45 mGy-cm. Automated exposure control was utilized for the study. A dose lowering technique was utilized adhering to the principles of ALARA. CONTRAST: Patient received 116 cc optiray 320 of IV contrast COMPARISON: CT abdomen/pelvis: 12/23/2023 FINDINGS: Motion-induced image degradation limits diagnostic sensitivity of the exam. Lung bases: Again noted a large size hiatal hernia with organoaxial rotation and with interval increased wall thickening and small/trace bilateral pleural fluid. Left lung base compressive mild atelectasis/infiltrates. Bilateral bronchial wall thickening/mild dilatation. Cardiomegaly. ABDOMEN: Liver: Mild diffuse steatosis. No mass. Gallbladder and bile ducts: A moderately distended gallbladder. No calcified stones. No ductal dilation. Pancreas: Unremarkable. No discernible mass. No ductal dilation. Spleen: Mild splenomegaly, 14 cm in craniocaudal length. Adrenals: Unremarkable. No mass. Kidneys and ureters: A small 8.5 mm right renal cortical cyst.. No solid mass. No hydronephrosis. Stomach and bowel: A large size hiatal hernia, entire stomach is above the diaphragm. Normal caliber small bowel. Extensive pancolonic diverticulosis coli. There is wall thickening of the distal descending colon and proximal sigmoid with pericolonic mild reactive fat stranding in the lower abdomen/upper pelvis, concerning for chronic diverticulitis, although cannot exclude superimposed mild acute diverticulitis. There is liquid stool in the cecum/ascending colon. Large amount of formed stool is seen in a 7.5 cm distended rectosigmoid (series 1100, image 57, series 11 image 290). No obstruction. No mucosal thickening. Right hepatodiaphragmatic interposition of the colon. PELVIS: Appendix: No findings to suggest acute appendicitis. Bladder: There is a reduced capacity urinary bladder with up to 10 mm mucosal/right wall thickening, concerning for cystitis (series 11 image 283). No mass. Reproductive: A normal size prostate with small rounded coarse calcifications. ABDOMEN and PELVIS: Intraperitoneal space: Unremarkable. No free air. No significant fluid collection. Bones/joints: No acute fracture. No dislocation. Moderate rotatory lumbar levoscoliosis. Multilevel advanced degenerative spondylosis. Soft tissues: Bilaterally hip regions/flanks likely intramuscular lipomas are present Vasculature: Unremarkable. No abdominal aortic aneurysm. Lymph nodes: No lymphadenopathy by CT size criteria.. IMPRESSION: Again noted a large size hiatal hernia with rotation and with interval increased gastric wall thickening and bilateral small/trace pleural fluid, suspect acute gastritis in the appropriate clinical context. Extensive pancolonic diverticulosis coli. Wall thickening of the distal descending colon and proximal sigmoid associated with pericolonic mild reactive fat stranding in the left side lower abdomen/upper pelvis, concerning for chronic diverticulitis, although cannot exclude superimposed mild acute diverticulitis. A reduced capacity urinary bladder with up to 10 mm right wall thickening, concerning for cystitis. Clinical correlation advised. Moderate rotatory lumbar levoscoliosis. Advanced multilevel degenerative spondylosis. . Electronically signed by: Juan Francisco Bautista MD, DABR 01/31/24 00:55 AM
[2024-01-31] MEDS: LACTATED RINGER'S 500 ML IV ONE (01:16)
--- NOTE | 2024-01-31 01:17 | CT Scan Report ---
Exam(s): CTA CHEST IV Amt: 116 ml optiray 320 EXAM: CT Angiography Chest With Intravenous Contrast CLINICAL HISTORY: Reason for exam: PE. TECHNIQUE: Axial computed tomographic angiography images of the chest with intravenous contrast. CTDI is 20.91 mGy and DLP is 1040.98 mGy-cm. Automated exposure control was utilized for the study. A dose lowering technique was utilized adhering to the principles of ALARA. MIP reconstructed images were created and reviewed. COMPARISON: CT chest: 08/21/2023 FINDINGS: Diagnostic sensitivity is reduced by motion artifact. Pulmonary arteries: No pulmonary embolism. A 34 mm enlarged right central pulmonary artery. Aorta: No acute findings. Diffuse calcified atherosclerosis. No thoracic aortic aneurysm. Lungs: Central airways are patent. Diffuse bilateral bronchial wall thickening/mild/moderate tubular bronchiectasis and bronchiolectasis. Moderate centrilobular emphysema. Left lower lobe consolidation/basal segment collapse associated with corresponding/surrounding mild interstitial infiltrates. Pleural space: Trace bilateral pleural fluid/effusion.. No pneumothorax. Heart: Cardiomegaly. Anteriorly trace pericardial effusion. No significant pericardial effusion. No evidence of RV dysfunction. Multivessel's calcified coronary arterial atherosclerosis. Bones/joints: No acute fracture. No dislocation. Mild dextroscoliosis and mildly increased kyphosis. Multilevel degenerative spondylosis. Soft tissues: Large size hiatal hernia with organoaxial rotation and interval increased gastric wall thickness. Lymph nodes: Small mediastinal lymph nodes.. No enlarged lymph nodes. Other findings: Significant bilateral gynecomastia. . Concurrently performed CT abdomen/pelvis reported separately. IMPRESSION: No evidence of pulmonary embolism, aortic aneurysm or dissection. Cardiomegaly. Significant multivessel coronary arterial and aortic calcified atherosclerosis. Bilateral bronchial wall thickening, mild bronchiectasis/bronchiolectasis and moderate centrilobular pulmonary emphysema. Left lower lobe consolidation or basal segment collapse. Surrounding mild interstitial infiltrates. Small/trace bilateral pleural effusion. . Electronically signed by: Juan Francisco Bautista MD, DABR 01/31/24 01:17 AM
--- NOTE | 2024-01-31 01:38 | CT Scan Report ---
Exam(s): CT FACIAL With Contrast IV Amt: 116 ml optiray 320 EXAM: CT Maxillofacial With Intravenous Contrast CLINICAL HISTORY: Reason for exam: fever, AMS, recent parotitis. TECHNIQUE: Axial computed tomography images of the face with intravenous contrast. CTDI is 20.71 mGy and DLP is 730.74 mGy-cm. Automated exposure control was utilized for the study. A dose lowering technique was utilized adhering to the principles of ALARA. CONTRAST: Patient received 116 ml optiray 320 of IV contrast COMPARISON: None. FINDINGS: Bones/joints: No acute facial bone fracture. Soft tissues: Approximately 3.0 cm, 0.6 cm and 2.0 cm, 1.8 cm wide calcified stones are seen inside the excretory duct of the right submandibular salivary gland/Sialolithiasis (series 3 image 11, series 901 image 55). Orbits: Unremarkable. Sinuses: Near completely opacified right maxillary sinus with abnormal soft tissue and with an air-fluid level/severe acute on chronic sinusitis.. Other findings: Advanced degenerative spondylitic changes seen at C5-C6 level.. IMPRESSION: Multiple up to 3 cm large calcified stones are seen inside the excretory duct of the right submandibular salivary gland/sialolithiasis. Near completely opacified right maxillary sinus with abnormal soft tissues and with an air-fluid level, consistent with severe acute and chronic sinusitis. . Electronically signed by: Juan Francisco Bautista MD, LEONIDESR 01/31/24 01:37 AM
[2024-01-31] MEDS: NOREPINEPHRINE/D5W 4 MG/250 ML PLCT IV SCH (02:09)
[2024-01-31] MEDS: NOREPINEPHRINE/D5W 4 MG/250 ML IV ONE (02:41)
[2024-01-31] MEDS ORDERED: STAT IV Infusion **Titration per Protocol STA (02:48)
--- NOTE | 2024-01-31 03:30 | History & Physical Report ---
Date of Service January 31, 2024 Assessment & Plan (1) Sepsis: Plan: 88yo male presenting with septic shock POA. Febrile, tachycardic, hypotensive with leukocytosis WBC=15.9 with neutrophil predominance. Patient with elevated lactate initially at 3.4 which improved to 1.3 after IVF. Elevated procalcitonin=0.98. Complaining only of left sided abdominal pain - CT as above with some stranding and possible colitis/diverticulitis. CT of the chest suggests LLL PNA as well. Ongoing acute on chronic sinusitis. Patient with adrenal insufficiency - random cortisol=6.21 -Admit to MICU -Continue Levophed - wean as tolerated -Will administer stress dosed steroids - Hydrocortisone 100mg IV x 1 dose now followed by 50mg IV q 6 hours -Protonix 40mg PO BID -Follow blood cultures sent from the ER -Continue Vancomycin and Zosyn -Tylenol PRN (2) Diverticulitis: Plan: Possible cause for patient's sepsis. Patient complaining of left sided abdominal pain -Continue Zosyn and Vancomycin (3) Pneumonia: Plan: No complaint of cough, SOB. Adequate oxygenation on room air -Continue Zosyn, Vancomycin (4) Diabetes mellitus, type 2: Plan: Patient on Lantus 12u qAM and ISS. Last [id number]=9.2 on 12/31/23 -MICU Hyperglycemia protocol -Close monitoring with IV steroid use Plan Chronic medical conditions: CAD with history of PCI -Continue ASA and Atorvastatin BPH -Continue Terazosin and Finasteride Atrial fibrillation -Patients' sotalol and Carvedilol have been placed on hold due to bradycardia -Patient not on anticoagulation due to history of PE Hypothyroidism -Continue Synthroid Hyperlipidemia -Continue Atorvastatin History of Present Illness Chief Complaint: septic shock Primary Care Provider: Osmar Anderson III, Teodoro Salvador is an 88yo male with history of atrial fibrillation (not on anticoagulation d/t history of GIB), CAD, HTN, HLP, DM presenting from [facility] with generalized weakness and fever. Patient was recently admitted to [facility] from 01/22 - 01/26/24 with facial swelling. He was diagnosed with parotitis and facial cellulitis and was treated with IV antibiotics Zosyn and Daptomycin and discharged to [facility] on Cefdinir to be continued until 01/30. Patient returns today with report of fever, chills and abdominal pain. Upon arrival to the ER patient febrile at 39.6, tachycardic at 106bpm and hypotensive at 88/47. He was administered IV crystalloid x 3.5L + 80mL/hr with no improvement in blood pressure. Patient started on Levophed with improved cognition and hemodynamics. Reports left sided abdominal discomfort and feeling that he needs to have a bowel movement. Otherwise denies chest pain, palpitations, cough, SOB, nausea. Waxing and waning mental status while in the ER - at times alert and able to answer questions and provide some history. Other times patient somnolent and less interactive. ER Course: Tylenol x 1gm NSS x 3L bolus then 80mL/hr x 500mL LR x 500mL bbolus Zosyn 4.5gm Vancomycin 1250mg Levophed Allergies Allergy/AdvReac Type Severity Reaction Status Date / Time atenolol Allergy Unknown Patient Verified 08/20/23 22:28 told "never to take again" candesartan [From Atacand] AdvReac Intermediate Hyperkalemi Verified 08/20/23 22:28 a lisinopril AdvReac Intermediate Increased Verified 08/20/23 22:28 creatinine, hypotension Home Medications Medication Instructions Recorded Confirmed Type albuterol sulfate 90 mcg/actuation 2 inh inhalation Q4H PRN Shortness 06/04/18 01/30/24 History breath activated powder inhaler Of Breath Or Wheezing aspirin 81 mg tablet,delayed 81 mg PO QAM 06/04/18 01/30/24 History release atorvastatin 80 mg tablet 80 mg PO HS 06/04/18 01/30/24 History nitroglycerin 0.4 mg sublingual 0.4 mg sublingual DIRECTED PRN 06/13/22 01/30/24 History tablet Chest Pain sotalol 80 mg tablet 40 mg PO . BID ON HOLD 06/13/22 01/30/24 History terazosin 2 mg capsule 2 mg PO HS 06/13/22 01/30/24 History finasteride 5 mg tablet 5 mg PO QAM 05/28/23 01/30/24 History furosemide 40 mg tablet (Lasix) 40 mg PO Q OTHER DAY 05/28/23 01/31/24 History furosemide 40 mg tablet 60 mg PO Q OTHER DAY 08/20/23 01/31/24 History insulin glargine 100 unit/mL 12 unit subcut QAM 12/24/23 01/30/24 History subcutaneous solution (Lantus U-100 Insulin) insulin lispro 100 unit/mL See Rx Instructions .Route .COMPLEX 12/24/23 01/30/24 History subcutaneous solution (Humalog U-100 Insulin) levothyroxine 50 mcg tablet 50 mcg PO DAILY 12/24/23 01/30/24 History magnesium hydroxide 400 mg/5 mL 30 ml PO DAILY PRN Constipation 12/24/23 01/30/24 History oral suspension (Milk of Magnesia) potassium chloride 20 mEq 20 meq PO QAM 12/24/23 01/30/24 History tablet,extended release(part/cryst) pantoprazole 40 mg tablet,delayed 40 mg PO BID #60 tabs 12/27/23 01/30/24 Rx release Saccharomyces boulardii 250 mg 250 mg PO QAM 01/23/24 01/30/24 History capsule (Florastor) bisacodyl 10 mg rectal suppository 10 mg OK DAILY PRN Constipation 01/23/24 01/30/24 History (Dulcolax (bisacodyl)) menthol 0.44 %-zinc oxide 20.6 % 1 applic topical .EVERY SHIFT 01/23/24 01/30/24 History topical ointment (Calmoseptine) sodium phosphates 19 gram-7 118 ml OK DAILY PRN Constipation 01/23/24 01/30/24 History gram/118 mL enema (Fleet Enema) tramadol 50 mg tablet 50 mg PO Q6H PRN PAIN 8-10 01/23/24 01/30/24 History cefdinir 300 mg capsule 300 mg PO BID 5 days #10 caps 01/26/24 01/30/24 Rx empagliflozin 25 mg tablet 12.5 mg PO QAM 01/30/24 01/30/24 History (Jardiance) multivit,Ca,min-iron 8 mg-folic 1 tab PO QAM 01/30/24 01/30/24 History acid 200 mcg-lycopene 600 mcg tablet (Centrum Men) polyethylene glycol 3350 17 4 g PO QAM 01/30/24 01/30/24 History gram/dose oral powder (Miralax) saliva substitute combo no.9 2 ea PO .Q 1 HOUR PRN Dry Mouth 01/30/24 01/30/24 History (Biotene Dry Mouth Oral Rinse mouthwash) Past Med/Surg History Problem List (Updated 01/31/24 @ 03:26 by STEPHANIA Nye) Pneumonia Colitis Sinusitis (Acute) Elevated troponin (Acute) Pneumonia (Acute) Myocardial infarction type 2 (Acute) Sepsis (Acute) Cellulitis (Acute) Parotitis (Acute) Chronic anemia Parotitis Diverticular hemorrhage Diverticulitis (Acute) Hospital acquired PNA input by error, wrong diagnosis Encounter for pre-operative examination Urinary symptom or sign Fall Left-sided chest wall pain (Acute) Ambulatory dysfunction (Acute) Leukocytosis (Acute) Acute on chronic diastolic (congestive) heart failure Paroxysmal atrial fibrillation Leukocytosis (Acute) Diverticulitis (Acute) Elevated troponin (Acute) Symptomatic anemia (Acute) Diverticulitis Symptomatic anemia Greater trochanteric bursitis of both hips Elevated troponin I level CHF (congestive heart failure) (Acute) Atrial fibrillation, rapid (Acute) DVT prophylaxis Elevated troponin Chronic diastolic CHF (congestive heart failure) Atrial fibrillation with RVR Inflammatory polyarthropathy Atrial fibrillation Follows with [facility] cardiology Seronegative arthritis (Chronic) Hiatal hernia (Chronic) Hyperlipidemia (Chronic) Hypertension (Chronic) Cardiac murmur (Chronic) Myocardial Infarction (Chronic) 2011 Diabetes mellitus, type 2 (Chronic) NIDDM Chronic renal disease, stage III (Chronic) Follows with Dr. Zhu Chronic back pain (Chronic) Scoliosis (Chronic) History of tooth extraction (Chronic) History of cataract surgery (Chronic) R/L Medical History (Updated 01/31/24 @ 03:34 by STEPHANIA Nye) Penile ulcer Balanitis Hernia, hiatal Chronic diastolic heart failure Iron deficiency anemia Lower GI bleed CAD (coronary artery disease) 2012- MARY to LAD BPH (benign prostatic hyperplasia) MGUS (monoclonal gammopathy of unknown significance) Following with [facility] heme/onc- last seen 05/28/23, recommendation to monitor/follow-up on annual basis Non-ST elevation (NSTEMI) myocardial infarction Osteoarthritis Lactic acidosis Acute blood loss anemia Abdominal pain Acute GI bleeding GI bleed Surgical History (Updated 01/31/24 @ 03:26 by STEPHANIA Nye) History of heart artery stent 2012 > stent x1 History of cardiac cath 2012 > stent x1 Family History Mother Coronary heart disease, Onset Age: 63 of [place] CHF (congestive heart failure) Myocardial infarction Father CHF (congestive heart failure) Pneumonia Sister Coronary heart disease History of CABG Rheumatic heart disease Social History Smoking Status: Never smoker Second Hand Exposure: No; Do You Dip or Chew Tobacco: No; Hx Alcohol Use: No Hx Substance Use: No Preferred Language: Moroccan Communication Ability: Effective Communication Ability Comment: physically unable to write Side Framer Required: No Beliefs That Will Affect Care: None marital status: / Current Living Situation: Prison Current Living Situation Comment: currently at [facility] since July for rehab. plan to return home alone Feels Safe at Home: Yes Assistive Devices: Mechanical Lift and Wheelchair Review of Systems Review of Systems: All systems reviewed & are unremarkable except as noted in HPI & below Physical Exam Physical Exam: General: patient somnolent, arousable, answers some questions and follows some commands Skin: warm, dry, intact, no rashes or lesions HEENT: NC/AT, PERRL, EOMI, anicteric sclera, conjunctiva without injection, external ear normal to inspection and nontender, nares patent, dry mucus membranes, dentition intact, no oropharyngeal lesions, neck supple, trachea midline, no LAD, no thyromegaly, no JVD Heart: +S1/S2, regular with ectopy, 2/6 BRENNAN at right 2nd ICS, no rubs/galloops Lungs: equal air entry bilaterally, crackles present in left base, no rhonchi/wheezes Abd: +BS, soft, mildly tender in LLQ, no rebound/guarding/peritonitis Ext: warm, 2+ pulses in UE/LE bilaterally, no clubbing/cyanosis or edema Neuro: somnolent but arousable, grossly nonfocal Results & Data Results & Data Vital Signs (Past 12 Hours) Vital Signs Temp Pulse Pulse Resp BP BP Pulse Ox 01/31/24 03:05 123/51 L 01/31/24 03:05 123/51 L 01/31/24 03:05 123/51 L 01/31/24 03:00 76 22 95 01/31/24 02:57 86 22 90 01/31/24 02:55 116/57 L 01/31/24 02:55 116/57 L 01/31/24 02:55 116/57 L 01/31/24 02:50 112/57 L 01/31/24 02:46 97/51 L 01/31/24 02:42 77 24 98 01/31/24 02:40 100/49 L 01/31/24 02:40 100/49 L 01/31/24 02:35 105/43 L 01/31/24 02:35 105/43 L 01/31/24 02:32 108/51 L 01/31/24 02:30 103/50 L 01/31/24 02:12 78 25 H 91 01/31/24 02:10 90/44 L 01/31/24 02:10 90/44 L 01/31/24 02:00 78 23 01/31/24 01:57 94/42 L 01/31/24 01:45 92/52 L 01/31/24 01:45 92/52 L 01/31/24 01:42 78 20 01/31/24 01:39 77 25 H 01/31/24 01:31 109/45 L 01/31/24 01:31 109/45 L 01/31/24 01:24 82 17 01/31/24 01:20 101/48 L 01/31/24 01:20 101/48 L 01/31/24 01:00 110/48 L 01/31/24 01:00 37.2 C 102 H 16 110/48 L 92 01/31/24 00:57 89 16 01/31/24 00:51 88 18 01/31/24 00:30 89/43 L 01/31/24 00:30 89/43 L 01/31/24 00:30 89 22 01/31/24 00:20 102/43 L 01/31/24 00:20 102/43 L 01/31/24 00:18 87 21 01/31/24 00:06 92 H 26 H 01/30/24 23:42 94 H 20 01/30/24 23:30 103/49 L 01/30/24 23:30 96 H 22 01/30/24 23:27 37.2 C 102 H 21 93/49 L 92 01/30/24 23:15 94 H 21 95 01/30/24 23:14 110/51 L 01/30/24 23:09 91 H 21 92 01/30/24 22:30 102 H 27 H 93/49 L 95 01/30/24 22:24 139 H 22 88/47 L 94 01/30/24 22:19 39.6 C H 106 H 18 90/59 L 94 01/30/24 22:14 104 H 01/30/24 22:09 39.6 C H 106 H 18 90/59 L 94 01/30/24 22:09 106 H 18 94 01/30/24 22:08 39.6 C H 106 H 18 90/59 L 94 O2 Del Method 01/31/24 03:05 01/31/24 03:05 01/31/24 03:05 01/31/24 03:00 01/31/24 02:57 01/31/24 02:55 01/31/24 02:55 01/31/24 02:55 01/31/24 02:50 01/31/24 02:46 01/31/24 02:42 01/31/24 02:40 01/31/24 02:40 01/31/24 02:35 01/31/24 02:35 01/31/24 02:32 01/31/24 02:30 01/31/24 02:12 01/31/24 02:10 01/31/24 02:10 01/31/24 02:00 01/31/24 01:57 01/31/24 01:45 01/31/24 01:45 01/31/24 01:42 01/31/24 01:39 01/31/24 01:31 01/31/24 01:31 01/31/24 01:24 01/31/24 01:20 01/31/24 01:20 01/31/24 01:00 01/31/24 01:00 Room Air 01/31/24 00:57 01/31/24 00:51 01/31/24 00:30 01/31/24 00:30 01/31/24 00:30 01/31/24 00:20 01/31/24 00:20 01/31/24 00:18 01/31/24 00:06 01/30/24 23:42 01/30/24 23:30 01/30/24 23:30 01/30/24 23:27 Room Air 01/30/24 23:15 01/30/24 23:14 01/30/24 23:09 01/30/24 22:30 Room Air 01/30/24 22:24 Room Air 01/30/24 22:19 Room Air 01/30/24 22:14 01/30/24 22:09 Room Air 01/30/24 22:09 Room Air 01/30/24 22:08 Room Air Laboratory Results Laboratory Results WBC 15.94 K/ul (4.8-10.8) H 01/30/24 22:25 RBC 3.52 M/uL (4.70-6.10) L 01/30/24 22:25 Hgb 8.4 g/dl (14.0-18.0) L 01/30/24 22:25 POC Hgb 8.5 g/dl (14.0-18.0) L 01/30/24 22:38 Hct 27.7 % (42.0-52.0) L 01/30/24 22:25 POC Hct 25 % (42-52) L 01/30/24 22:38 MCV 78.7 fL (80.0-100.0) L 01/30/24 22:25 MCH 23.9 pg (25.0-34.0) L 01/30/24 22:25 MCHC 30.3 g/dL (32.0-36.0) L 01/30/24 22:25 RDW Std Deviation 53.1 fL (36.4-46.3) H 01/30/24 22:25 RDW Coeff of [place] 18.6 % (11.5-14.5) H 01/30/24 22:25 Plt Count 275 K/uL (130-400) 01/30/24 22:25 MPV 11.0 fL (9.4-12.4) 01/30/24 22:25 Immature Gran % (Auto) 1.1 % 01/30/24 22:25 Neut % (Auto) 71.2 % 01/30/24 22:25 Lymph % (Auto) 12.2 % 01/30/24 22:25 [place] % (Auto) 14.1 % 01/30/24 22:25 Eos % (Auto) 1.1 % 01/30/24 22:25 Baso % (Auto) 0.3 % 01/30/24 22:25 Neut # (Auto) 11.35 K/uL (1.40-6.50) H 01/30/24:25 Lymph # (Auto) 1.95 K/uL (1.20-3.40) 01/30/24:25 [place] # (Auto) 2.25 K/uL (0.11-0.59) H 01/30/24: Eos # (Auto) 0.18 K/uL (0.00-0.50) 01/30/24:25 Baso # (Auto) 0.04 K/uL (0.00-0.20) 01/30/24:25 Immature Gran # (Auto) 0.17 K/uL (0.01-0.20) 01/30/24:25 VBG pH 7.42 (7.36-7.41) H 01/30/24: VBG pCO2 41 mmHg (38-50) 01/30/24 22:25 VBG pO2 36 mmHg 01/30/24 22:25 VBG HCO3 27 mmol/L 01/30/24 22:25 VBG O2 Saturation 65.7 % 01/30/24 22:25 VBG Base Excess 1.9 mEq/L 01/30/24 22:25 POC Sodium 139 mmol/L (135-144) 01/30/24 22:38 Sodium 139 mmol/L (136-145) 01/30/24 22:25 POC Potassium 3.6 mmol/L (3.3-5.0) 01/30/24 22: Potassium 3.7 mmol/L (3.5-5.1) 01/30/24 22:25 POC Chloride 100 mmol/L (101-112) L 01/30/24 22:38 Chloride 103 mmol/L (98-107) 01/30/24 22:25 Carbon Dioxide 27 mmol/L (21-32) 01/30/24 22:25 POC Total CO2 24 mmol/L (24-31) 01/30/24:38 Anion Gap 9 (3-11) 01/30/24 22:25 POC Anion Gap 20.0 mmol/L (16-25) 01/30/24 22:38 POC BUN 15 mg/dl (7-18) 01/30/24 22:38 BUN 17 mg/dl (6-23) 01/30/24 22:25 Creatinine 0.92 mg/dl (0.6-1.4) 01/30/24 22:25 POC Creatinine 1.0 mg/dl (0.6-1.3) 01/30/24 22:38 Est Cr Clr Drug Dosing 48.8 ml/min 01/30/24 22:25 eGFR 79.51 01/30/24 22:25 BUN/Creatinine Ratio 18.5 (10-20) 01/30/24 22:25 Glucose 228 mg/dl (70-99(Fasting)) H 01/30/24 22:25 POC Glucose (other) 233 mg/dl (70-99) H 01/30/24 22:38 Lactate 1.3 mmol/L (0.4-2.0) 01/31/24 01:15 Calcium 8.2 mg/dl (8.6-10.3) L 01/30/24 22:25 POC Ioniz Calcium [place] 1.13 mmol/l (1.12-1.32) 01/30/24 22:38 Magnesium 1.8 mg/dl (1.7-2.4) 01/30/24 22:25 Total Bilirubin 0.5 mg/dl (0.2-1.0) 01/30/24 22:25 Direct Bilirubin 0.1 mg/dl (0-0.2) 01/30/24 22:25 AST 8 U/L (13-39) L 01/30/24 22:25 ALT 7 U/L (7-52) 01/30/24 22:25 Alkaline Phosphatase 52 U/L (34-104) 01/30/24 22:25 Troponin I High Sens 26.0 pg/ml (0-20) H 01/31/24 00:22 Total Protein 5.7 gm/dl (6.0-8.3) L 01/30/24 22:25 Albumin 2.6 gm/dl (3.4-5.0) L 01/30/24 22:25 Procalcitonin 0.98 ng/ml (0-0.5) H 01/30/24 22:25 Random Cortisol 6.21 mcg/dl 01/31/24 00:22 Urine Color Yellow 01/30/24 22:15 Urine Appearance Clear (Clear) 01/30/24 22:15 Urine pH 5.5 (4.5-7.5) 01/30/24 22:15 Ur Specific [place] 1.021 (1.000-1.030) 01/30/24 22:15 Urine Protein Negative (Negative) 01/30/24 22:15 Urine Glucose (UA) 3+ (Negative) H 01/30/24 22:15 Urine Ketones Negative (Negative) 01/30/24 22:15 Urine Blood Negative (Negative) 01/30/24 22:15 Urine Nitrite Negative (Negative) 01/30/24 22:15 Urine Bilirubin Negative (Negative) 01/30/24 22:15 Urine Urobilinogen Negative (Negative) 01/30/24 22:15 Ur Leukocyte Esterase Negative (Negative) 01/30/24 22:15 Adenovirus (PCR) Not Detected (NotDetected) 01/30/24 22:45 B. pertussis DNA (PCR) Not Detected (NotDetected) 01/30/24 22:45 B.parapertussis DNA PCR Not Detected (NotDetected) 01/30/24 22:45 C. pneumoniae DNA (PCR) Not Detected (NotDetected) 01/30/24 22:45 Coronavirus OC43 (PCR) Not Detected (NotDetected) 01/30/24 22:45 Coronavirus HKU1 (PCR) Not Detected (NotDetected) 01/30/24 22:45 Coronavirus 229E (PCR) Not Detected (NotDetected) 01/30/24 22:45 SARS-CoV-2 (PCR) Not Detected (NotDetected) 01/30/24 22:45 Coronavirus NL63 (PCR) Not Detected (NotDetected) 01/30/24 22:45 Human Metapneumovir PCR Not Detected (NotDetected) 01/30/24 22:45 Influenza Type A (PCR) Not Detected (NotDetected) 01/30/24 22:45 Influenza Type B (PCR) Not Detected (NotDetected) 01/30/24 22:45 M. pneumoniae (PCR) Not Detected (NotDetected) 01/30/24 22:45 Parainfluenza 1 (PCR) Not Detected (NotDetected) 01/30/24 22:45 Parainfluenza 2 (PCR) Not Detected (NotDetected) 01/30/24 22:45 Parainfluenza 3 (PCR) Not Detected (NotDetected) 01/30/24 22:45 Parainfluenza 4 (PCR) Not Detected (NotDetected) 01/30/24 22:45 RSV (PCR) Not Detected (NotDetected) 01/30/24 22:45 Entero/Rhino (PCR) Not Detected (NotDetected) 01/30/24 22:45 Impressions Abdomen/Pelvis CT 01/30/24 22:08 Exam(s): CT ABDOMEN + PELVIS With Contrast IV Amt: 116 cc optiray 320 EXAM: CT Abdomen and Pelvis With Intravenous Contrast CLINICAL HISTORY: Reason for exam: sepsis, lower abd pain. TECHNIQUE: Axial computed tomography images of the abdomen and pelvis with intravenous contrast. CTDI is 6.9 mGy and DLP is 143.45 mGy-cm. Automated exposure control was utilized for the study. A dose lowering technique was utilized adhering to the principles of ALARA. CONTRAST: Patient received 116 cc optiray 320 of IV contrast COMPARISON: CT abdomen/pelvis: 12/23/2023 FINDINGS: Motion-induced image degradation limits diagnostic sensitivity of the exam. Lung bases: Again noted a large size hiatal hernia with organoaxial rotation and with interval increased wall thickening and small/trace bilateral pleural fluid. Left lung base compressive mild atelectasis/infiltrates. Bilateral bronchial wall thickening/mild dilatation. Cardiomegaly. ABDOMEN: Liver: Mild diffuse steatosis. No mass. Gallbladder and bile ducts: A moderately distended gallbladder. No calcified stones. No ductal dilation. Pancreas: Unremarkable. No discernible mass. No ductal dilation. Spleen: Mild splenomegaly, 14 cm in craniocaudal length. Adrenals: Unremarkable. No mass. Kidneys and ureters: A small 8.5 mm right renal cortical cyst.. No solid mass. No hydronephrosis. Stomach and bowel: A large size hiatal hernia, entire stomach is above the diaphragm. Normal caliber small bowel. Extensive pancolonic diverticulosis coli. There is wall thickening of the distal descending colon and proximal sigmoid with pericolonic mild reactive fat stranding in the lower abdomen/upper pelvis, concerning for chronic diverticulitis, although cannot exclude superimposed mild acute diverticulitis. There is liquid stool in the cecum/ascending colon. Large amount of formed stool is seen in a 7.5 cm distended rectosigmoid (series 1100, image 57, series 11 image 290). No obstruction. No mucosal thickening. Right hepatodiaphragmatic interposition of the colon. PELVIS: Appendix: No findings to suggest acute appendicitis. Bladder: There is a reduced capacity urinary bladder with up to 10 mm mucosal/right wall thickening, concerning for cystitis (series 11 image 283). No mass. Reproductive: A normal size prostate with small rounded coarse calcifications. ABDOMEN and PELVIS: Intraperitoneal space: Unremarkable. No free air. No significant fluid collection. Bones/joints: No acute fracture. No dislocation. Moderate rotatory lumbar levoscoliosis. Multilevel advanced degenerative spondylosis. Soft tissues: Bilaterally hip regions/flanks likely intramuscular lipomas are present Vasculature: Unremarkable. No abdominal aortic aneurysm. Lymph nodes: No lymphadenopathy by CT size criteria.. IMPRESSION: Again noted a large size hiatal hernia with rotation and with interval increased gastric wall thickening and bilateral small/trace pleural fluid, suspect acute gastritis in the appropriate clinical context. Extensive pancolonic diverticulosis coli. Wall thickening of the distal descending colon and proximal sigmoid associated with pericolonic mild reactive fat stranding in the left side lower abdomen/upper pelvis, concerning for chronic diverticulitis, although cannot exclude superimposed mild acute diverticulitis. A reduced capacity urinary bladder with up to 10 mm right wall thickening, concerning for cystitis. Clinical correlation advised. Moderate rotatory lumbar levoscoliosis. Advanced multilevel degenerative spondylosis. . Electronically signed by: Juan Francisco Bautista MD, DABR 01/31/24 00:55 AM Chest CTA 01/30/24 22:17 Exam(s): CTA CHEST IV Amt: 116 ml optiray 320 EXAM: CT Angiography Chest With Intravenous Contrast CLINICAL HISTORY: Reason for exam: PE. TECHNIQUE: Axial computed tomographic angiography images of the chest with intravenous contrast. CTDI is 20.91 mGy and DLP is 1040.98 mGy-cm. Automated exposure control was utilized for the study. A dose lowering technique was utilized adhering to the principles of ALARA. MIP reconstructed images were created and reviewed. COMPARISON: CT chest: 08/21/2023 FINDINGS: Diagnostic sensitivity is reduced by motion artifact. Pulmonary arteries: No pulmonary embolism. A 34 mm enlarged right central pulmonary artery. Aorta: No acute findings. Diffuse calcified atherosclerosis. No thoracic aortic aneurysm. Lungs: Central airways are patent. Diffuse bilateral bronchial wall thickening/mild/moderate tubular bronchiectasis and bronchiolectasis. Moderate centrilobular emphysema. Left lower lobe consolidation/basal segment collapse associated with corresponding/surrounding mild interstitial infiltrates. Pleural space: Trace bilateral pleural fluid/effusion.. No pneumothorax. Heart: Cardiomegaly. Anteriorly trace pericardial effusion. No significant pericardial effusion. No evidence of RV dysfunction. Multivessel's calcified coronary arterial atherosclerosis. Bones/joints: No acute fracture. No dislocation. Mild dextroscoliosis and mildly increased kyphosis. Multilevel degenerative spondylosis. Soft tissues: Large size hiatal hernia with organoaxial rotation and interval increased gastric wall thickness. Lymph nodes: Small mediastinal lymph nodes.. No enlarged lymph nodes. Other findings: Significant bilateral gynecomastia. . Concurrently performed CT abdomen/pelvis reported separately. IMPRESSION: No evidence of pulmonary embolism, aortic aneurysm or dissection. Cardiomegaly. Significant multivessel coronary arterial and aortic calcified atherosclerosis. Bilateral bronchial wall thickening, mild bronchiectasis/bronchiolectasis and moderate centrilobular pulmonary emphysema. Left lower lobe consolidation or basal segment collapse. Surrounding mild interstitial infiltrates. Small/trace bilateral pleural effusion. . Electronically signed by: Juan Francisco Bautista MD, DABR 01/31/24 01:[address] 01/30/24 22:17 Exam(s): CT FACIAL With Contrast IV Amt: 116 ml optiray 320 EXAM: CT Maxillofacial With Intravenous Contrast CLINICAL HISTORY: Reason for exam: fever, AMS, recent parotitis. TECHNIQUE: Axial computed tomography images of the face with intravenous contrast. CTDI is 20.71 mGy and DLP is 730.74 mGy-cm. Automated exposure control was utilized for the study. A dose lowering technique was utilized adhering to the principles of ALARA. CONTRAST: Patient received 116 ml optiray 320 of IV contrast COMPARISON: None. FINDINGS: Bones/joints: No acute facial bone fracture. Soft tissues: Approximately 3.0 cm, 0.6 cm and 2.0 cm, 1.8 cm wide calcified stones are seen inside the excretory duct of the right submandibular salivary gland/Sialolithiasis (series 3 image 11, series 901 image 55). Orbits: Unremarkable. Sinuses: Near completely opacified right maxillary sinus with abnormal soft tissue and with an air-fluid level/severe acute on chronic sinusitis.. Other findings: Advanced degenerative spondylitic changes seen at C5-C6 level.. IMPRESSION: Multiple up to 3 cm large calcified stones are seen inside the excretory duct of the right submandibular salivary gland/sialolithiasis. Near completely opacified right maxillary sinus with abnormal soft tissues and with an air-fluid level, consistent with severe acute and chronic sinusitis. . Electronically signed by: Juan Francisco Bautista MD, DABR 01/31/24 01:37 AM PG Care Time/CCT Total # of Minutes Spent Total Time Spent with Patient: Total time spent is greater than 50% in coordination of care (as documented) at patient's floor/unit and/or counseling patient: Coding Level of Care Code 63226 INT INP/OBS CARE 3/75MIN Diagnoses Sepsis A41.9 Sepsis acute organ dysfunction status: unspecified Sepsis type: sepsis due to unspecified organism Diverticulitis K57.92 Pneumonia J18.9 Diabetes mellitus, type 2 E11.9 (1) Sepsis Sepsis acute organ dysfunction status: unspecified Sepsis type: sepsis due to unspecified organism Qualified Code(s): A41.9 - Sepsis, unspecified organism
--- NOTE | 2024-01-31 03:51 | Critical Care Consultation ---
Date of Consultation January 31, 2024 Assessment & Plan (1) Sepsis: (2) Colitis: (3) Pneumonia: (4) Elevated troponin: (5) CHF (congestive heart failure): (6) Hypertension: (7) Hyperlipidemia: Plan Reason Critically Ill: 88 YOM presents with abdominal pain, fever, chills met SIRS criteria with sources being lung and nonspecific colitis. He required vasopressor agents following adequate fluid resuscitaiton. Found to be relatively adrenal insufficient- will admit to ICU for vasopressor support, stress dose steroids, and broad spectrum antibiotics. Neuro - Metabolic Encephalopathy CAM ICU: KEVIN - Mentation appears to be improving, following discussion with nurse, after starting vasopressor agents as he is now with adequate MAPS - Continue frequent re-oreintation and attempt to maintain normal sleep/wake cycles to hopefully avoid delirium Cardiac - septic shock, elevated HsCTNI, CAD, HTN, HLD, PAF - Septic Shock with sources being likely lung and colitis - Adequately volume resuscitated in EMD - remained hypotensive - Levophed to maintain MAPS >65 - Lactate has cleared, and HsCTNI has downtrended- no other evidence of organ dysfunction - Cortisol 6.21- initiate stress dose steroids - Continue Vanc/zosyn- Await MRSA swab if negative can likely dc Vanco - His Sotalol has been on hold from previous discharge secondary to bradycardia - Afib anticoagulation is ASA appears secondary to GI Bleeds - Hold other antihypertensive agents Respiratory - LLL pneumonia, small pleural effusion - ABX as above - Continue supportive care - Pleural Effusion is small follow clinically with his PNA GI - GERD, Hiatal Hernia - BID PPI while on steroids and until tolerating diet RENAL/LYTES - NO acute needs - ICU hyperglycemic protocol - NO acute needs - Hx BPH- follow bladder scans for retention- hold on pettit for now - Consider holding FInasteride if remains hypotensive ENDO - DMII - Hold Jardiance - Continue SSI and Lantus- adjust with diet - Lantus normally on 12 units- NPO at this time changed to 6 units HEME - Chronic microcytic anemia - Rhianna cute concerns ID - Septic shock - As above - FOllow cultures - Day #1 Zosyn/Vancomycin LINES/IV ACCESS - PIV Continue use of these lines DVT PROPHYLAXIS - SCDs, Lovenox 40mg subq daily DISPO: ICU until hemodynamics proven stable I have personally spent 35 minutes of critical care time in the direct management of this patient. This is a life/limb threatening event. This includes time spent evaluating patient, direct bedside care, chart review, placing orders, interpretation of diagnostic studies, discussion with consultants, patient, and family members, as well as other required patient management activities. This time is exclusive of all separately billable procedures, and teaching time and separate from and in addition to any other critical care service time. Thank you for allowing us to participate in the care of this patient. Please refer to my attending physician's documentation for any further recommendations. Supervising Physician Co-Signing Physician Notes Patient seen and examined. EMR reviewed. Discussed with critical care VALENTIN as well as with bedside critical care nurse and on multidisciplinary rounds and with son at bedside. The patient is improving this morning. He still requiring a low-dose of norepinephrine. He is been tolerating clear liquids. He is not on oxygen. I reviewed the CT of the chest which shows a large paraesophageal hernia with some organoaxial rotation and gastric thickening. Wonder whether or not he could have intermittent gastric torsion causing his abdominal pain and septic shock. Discussed with son at bedside. He is he is unaware of this diagnosis. Reviewed with radiology. I suspect that transiently he may have had some torsion which may have caused his symptoms which would fit clinically. I am not sure the patient is a surgical candidate however the family would like to at least talk to the surgery team. I did advise him that this may be a foregut surgery that could not be performed here and would need to be evaluated as an outpatient at [facility]. Again the family requests to meet with the surgeons to talk about options. For now we will continue supportive care. Once he is off pressors, he can likely go to the floor. An additional 45 minutes in critical care time was spent evaluation management stabilization of this patient History of Present Illness Reason for Consultation: septic shock Requesting Physician: Silvia Acevedo D.O. Attending Physician: Silvia Acevedo D.O. History of Present Illness 88 YOM with medical history of: CAD, HTN, Afib (not on anticoag secondary to GI Bleed), HFpEF, Anemia, DMII. Patient came to the [facility] from [facility] facility for complaints of fevers, chills, and abdominal pain. He was noted to be tachycardic, hypotension as well as tachypnea and with fever. He had routine labs performed, CTA of the chest, CT abdomen and pelvis completed. He was noted to have leukocytosis, elevated lactic acid, stable anemia. CTA of the chest was negative for PE, but with LLL consolidation. CT Abd/pelvis with concern of nonspecific colitis. Patient had blood cultures obtained and was initiated on broad spectrum antibiotics. He was given 3.5 L crystalloid and remained hypotensive for which he was initiated on LEVOphed with good response. He is slightly confused on exam, but with warm extremities, no organ dysfunction at this time, and lactate has cleared. Will consult on patient in the ICU and continue supportive and resuscitative care. Hopeful to be able to wean his vasoactive medications off. Will check random cortisol. Of note patient was recently discharged on JAN 25 following admission for Face abscess, that was treated with abx. Face CT negative on admission. CODE: DNR/DNI Allergies Allergy/AdvReac Type Severity Reaction Status Date / Time atenolol Allergy Unknown Patient Verified 08/20/23 22:28 told "never to take again" candesartan [From Atacand] AdvReac Intermediate Hyperkalemi Verified 08/20/23 22:28 a lisinopril AdvReac Intermediate Increased Verified 08/20/23 22:28 creatinine, hypotension Home Medications Medication Instructions Recorded Confirmed Type albuterol sulfate 90 mcg/actuation 2 inh inhalation Q4H PRN Shortness 06/04/18 01/30/24 History breath activated powder inhaler Of Breath Or Wheezing aspirin 81 mg tablet,delayed 81 mg PO QAM 06/04/18 01/30/24 History release atorvastatin 80 mg tablet 80 mg PO HS 06/04/18 01/30/24 History nitroglycerin 0.4 mg sublingual 0.4 mg sublingual DIRECTED PRN 06/13/22 01/30/24 History tablet Chest Pain sotalol 80 mg tablet 40 mg PO . BID ON HOLD 06/13/22 01/30/24 History terazosin 2 mg capsule 2 mg PO HS 06/13/22 01/30/24 History finasteride 5 mg tablet 5 mg PO QAM 05/28/23 01/30/24 History furosemide 40 mg tablet (Lasix) 40 mg PO Q OTHER DAY 05/28/23 01/31/24 History furosemide 40 mg tablet 60 mg PO Q OTHER DAY 08/20/23 01/31/24 History insulin glargine 100 unit/mL 12 unit subcut QAM 12/24/23 01/30/24 History subcutaneous solution (Lantus U-100 Insulin) insulin lispro 100 unit/mL See Rx Instructions .Route .COMPLEX 12/24/23 01/30/24 History subcutaneous solution (Humalog U-100 Insulin) levothyroxine 50 mcg tablet 50 mcg PO DAILY 12/24/23 01/30/24 History magnesium hydroxide 400 mg/5 mL 30 ml PO DAILY PRN Constipation 12/24/23 01/30/24 History oral suspension (Milk of Magnesia) potassium chloride 20 mEq 20 meq PO QAM 12/24/23 01/30/24 History tablet,extended release(part/cryst) pantoprazole 40 mg tablet,delayed 40 mg PO BID #60 tabs 12/27/23 01/30/24 Rx release Saccharomyces boulardii 250 mg 250 mg PO QAM 01/23/24 01/30/24 History capsule (Florastor) bisacodyl 10 mg rectal suppository 10 mg W[place] DAILY PRN Constipation 01/23/24 01/30/24 History (Dulcolax (bisacodyl)) menthol 0.44 %-zinc oxide 20.6 % 1 applic topical .EVERY SHIFT 01/23/24 01/30/24 History topical ointment (Calmoseptine) sodium phosphates 19 gram-7 118 ml W[place] DAILY PRN Constipation 01/23/24 01/30/24 History gram/118 mL enema (Fleet Enema) tramadol 50 mg tablet 50 mg PO Q6H PRN PAIN 8-10 01/23/24 01/30/24 History cefdinir 300 mg capsule 300 mg PO BID 5 days #10 caps 01/26/24 01/30/24 Rx empagliflozin 25 mg tablet 12.5 mg PO QAM 01/30/24 01/30/24 History (Jardiance) multivit,Ca,min-iron 8 mg-folic 1 tab PO QAM 01/30/24 01/30/24 History acid 200 mcg-lycopene 600 mcg tablet (Centrum Men) polyethylene glycol 3350 17 4 g PO QAM 01/30/24 01/30/24 History gram/dose oral powder (Miralax) saliva substitute combo no.9 2 ea PO .Q 1 HOUR PRN Dry Mouth 01/30/24 01/30/24 History (Biotene Dry Mouth Oral Rinse mouthwash) Patient History Medical History (Updated 01/31/24 @ 03:34 by STEPHANIA Nye) Penile ulcer Balanitis Hernia, hiatal Chronic diastolic heart failure Iron deficiency anemia Lower GI bleed CAD (coronary artery disease) 2012- MARY to LAD BPH (benign prostatic hyperplasia) MGUS (monoclonal gammopathy of unknown significance) Following with [facility] heme/onc- last seen 05/28/23, recommendation to monitor/follow-up on annual basis Non-ST elevation (NSTEMI) myocardial infarction Osteoarthritis Lactic acidosis Acute blood loss anemia Abdominal pain Acute GI bleeding GI bleed Surgical History (Updated 01/31/24 @ 03:26 by STEPHANIA Nye) History of heart artery stent 2012 > stent x1 History of cardiac cath 2012 > stent x1 Family History Mother Coronary heart disease, Onset Age: 63 of [place] CHF (congestive heart failure) Myocardial infarction Father CHF (congestive heart failure) Pneumonia Sister Coronary heart disease History of CABG Rheumatic heart disease Social History Smoking Status: Never smoker Second Hand Exposure: No; Do You Dip or Chew Tobacco: No; Hx Alcohol Use: No Hx Substance Use: No Preferred Language: Mosotho Communication Ability: Effective Communication Ability Comment: physically unable to write Student Career Development Specialist Required: No Beliefs That Will Affect Care: None marital status: / Current Living Situation: Skilled Nursing Current Living Situation Comment: at [facility] since July for rehab. Plan to return home alone Feels Safe at Home: Yes Assistive Devices: Denture - Upper, Denture - Lower and Wheelchair Review of Systems Review of Systems: unable to obtain full ROS secondary to encephalopathy + abd pain, decreased appetite, fatigue No CP, difficulty breathing Physical Exam Physical Exam: PHYSICAL EXAM: General: arouses to voice, fatigued appearing Head: Normocephalic, atraumatic ENT: PERRLA, EOMI, no pharyngeal exudate, mucous membranes dry Neuro: AAO x 2, speech appropriate but difficult to understand, strength intact bilaterally 5/5, sensation intact and equal all extremities and dermatomes, no pronator drift Chest: equal rise and fall of the chest, no accessory muscle use, no heaves or thrills, decreased in bases bilaterally with scattered rhonchi LT > RT Cardiac: Regular rate and rhythm, telemetry reviewed, skin warm dry, cap refill <3 seconds, peripheral pulses +2 no JVD, Grade I systolic murmur, no JVD, no edema GI: NABS x 4 quadrants, soft, tender to palpation LLQ, : Spontaneously voiding, no pain, Psych: Normal mood and affect Skin: no rash or erythema Results & Data Results & Data Vital Signs (Past 12 Hours) Vital Signs Temp Pulse Pulse Resp BP BP Pulse Ox 01/31/24 03:05 123/51 L 01/31/24 03:05 123/51 L 01/31/24 03:05 123/51 L 01/31/24 03:00 76 22 95 01/31/24 02:57 86 22 90 01/31/24 02:55 116/57 L 01/31/24 02:55 116/57 L 01/31/24 02:55 116/57 L 01/31/24 02:50 112/57 L 01/31/24 02:46 97/51 L 01/31/24 02:42 77 24 98 01/31/24 02:40 100/49 L 01/31/24 02:40 100/49 L 01/31/24 02:35 105/43 L 01/31/24 02:35 105/43 L 01/31/24 02:32 108/51 L 01/31/24 02:30 103/50 L 01/31/24 02:12 78 25 H 91 01/31/24 02:10 90/44 L 01/31/24 02:10 90/44 L 01/31/24 02:00 78 23 01/31/24 01:57 94/42 L 01/31/24 01:45 92/52 L 01/31/24 01:45 92/52 L 01/31/24 01:42 78 20 01/31/24 01:39 77 25 H 01/31/24 01:31 109/45 L 01/31/24 01:31 109/45 L 01/31/24 01:24 82 17 01/31/24 01:20 101/48 L 01/31/24 01:20 101/48 L 01/31/24 01:00 110/48 L 01/31/24 01:00 37.2 C 102 H 16 110/48 L 92 01/31/24 00:57 89 16 01/31/24 00:51 88 18 01/31/24 00:30 89/43 L 01/31/24 00:30 89/43 L 01/31/24 00:30 89 22 01/31/24 00:20 102/43 L 01/31/24 00:20 102/43 L 01/31/24 00:18 87 21 01/31/24 00:06 92 H 26 H 01/30/24 23:42 94 H 20 01/30/24 23:30 103/49 L 01/30/24 23:30 96 H 22 01/30/24 23:27 37.2 C 102 H 21 93/49 L 92 01/30/24 23:15 94 H 21 95 01/30/24 23:14 110/51 L 01/30/24 23:09 91 H 21 92 01/30/24 22:30 102 H 27 H 93/49 L 95 01/30/24 22:24 139 H 22 88/47 L 94 01/30/24 22:19 39.6 C H 106 H 18 90/59 L 94 01/30/24 22:14 104 H 01/30/24 22:09 39.6 C H 106 H 18 90/59 L 94 01/30/24 22:09 106 H 18 94 01/30/24 22:08 39.6 C H 106 H 18 90/59 L 94 O2 Del Method 01/31/24 03:05 01/31/24 03:05 01/31/24 03:05 01/31/24 03:00 01/31/24 02:57 01/31/24 02:55 01/31/24 02:55 01/31/24 02:55 01/31/24 02:50 01/31/24 02:46 01/31/24 02:42 01/31/24 02:40 01/31/24 02:40 01/31/24 02:35 01/31/24 02:35 01/31/24 02:32 01/31/24 02:30 01/31/24 02:12 01/31/24 02:10 01/31/24 02:10 01/31/24 02:00 01/31/24 01:57 01/31/24 01:45 01/31/24 01:45 01/31/24 01:42 01/31/24 01:39 01/31/24 01:31 01/31/24 01:31 01/31/24 01:24 01/31/24 01:20 01/31/24 01:20 01/31/24 01:00 01/31/24 01:00 Room Air 01/31/24 00:57 01/31/24 00:51 01/31/24 00:30 01/31/24 00:30 01/31/24 00:30 01/31/24 00:20 01/31/24 00:20 01/31/24 00:18 01/31/24 00:06 01/30/24 23:42 01/30/24 23:30 01/30/24 23:30 01/30/24 23:27 Room Air 01/30/24 23:15 01/30/24 23:14 01/30/24 23:09 01/30/24 22:30 Room Air 01/30/24 22:24 Room Air 01/30/24 22:19 Room Air 01/30/24 22:14 01/30/24 22:09 Room Air 01/30/24 22:09 Room Air 01/30/24 22:08 Room Air Laboratory Results Abnormal lab results 01/30/24 01/30/24 01/30/24 Range/Units 22:15 22:25 22:38 WBC 15.94 H (4.8-10.8) K/ul RBC 3.52 L (4.70-6.10) M/uL Hgb 8.4 L (14.0-18.0) g/dl POC Hgb 8.5 L (14.0-18.0) g/dl Hct 27.7 L (42.0-52.0) % POC Hct 25 L (42-52) % MCV 78.7 L (80.0-100.0) fL MCH 23.9 L (25.0-34.0) pg MCHC 30.3 L (32.0-36.0) g/dL RDW Std Deviation 53.1 H (36.4-46.3) fL RDW Coeff of Coty 18.6 H (11.5-14.5) % Neut # (Auto) 11.35 H (1.40-6.50) K/uL [place] # (Auto) 2.25 H (0.11-0.59) K/uL VBG pH 7.42 H (7.36-7.41) POC Chloride 100 L (101-112) mmol/L Glucose 228 H (70-99(Fasting)) mg/dl POC Glucose (other) 233 H (70-99) mg/dl Lactate 3.4 H* (0.4-2.0) mmol/L Calcium 8.2 L (8.6-10.3) mg/dl AST 8 L (13-39) U/L Troponin I High Sens 30.7 H (0-20) pg/ml Total Protein 5.7 L (6.0-8.3) gm/dl Albumin 2.6 L (3.4-5.0) gm/dl Procalcitonin 0.98 H (0-0.5) ng/ml Urine Glucose (UA) 3+ H (Negative) 01/31/24 Range/Units 00:22 WBC (4.8-10.8) K/ul RBC (4.70-6.10) M/uL Hgb (14.0-18.0) g/dl POC Hgb (14.0-18.0) g/dl Hct (42.0-52.0) % POC Hct (42-52) % MCV (80.0-100.0) fL MCH (25.0-34.0) pg MCHC (32.0-36.0) g/dL RDW Std Deviation (36.4-46.3) fL RDW Coeff of Coty (11.5-14.5) % Neut # (Auto) (1.40-6.50) K/uL [place] # (Auto) (0.11-0.59) K/uL VBG pH (7.36-7.41) POC Chloride (101-112) mmol/L Glucose (70-99(Fasting)) mg/dl POC Glucose (other) (70-99) mg/dl Lactate (0.4-2.0) mmol/L Calcium (8.6-10.3) mg/dl AST (13-39) U/L Troponin I High Sens 26.0 H (0-20) pg/ml Total Protein (6.0-8.3) gm/dl Albumin (3.4-5.0) gm/dl Procalcitonin (0-0.5) ng/ml Urine Glucose (UA) (Negative) Diagnostic Findings Abdomen/Pelvis CT 01/30/24 22:08 Exam(s): CT ABDOMEN + PELVIS With Contrast IV Amt: 116 cc optiray 320 EXAM: CT Abdomen and Pelvis With Intravenous Contrast CLINICAL HISTORY: Reason for exam: sepsis, lower abd pain. TECHNIQUE: Axial computed tomography images of the abdomen and pelvis with intravenous contrast. CTDI is 6.9 mGy and DLP is 143.45 mGy-cm. Automated exposure control was utilized for the study. A dose lowering technique was utilized adhering to the principles of ALARA. CONTRAST: Patient received 116 cc optiray 320 of IV contrast COMPARISON: CT abdomen/pelvis: 12/23/2023 FINDINGS: Motion-induced image degradation limits diagnostic sensitivity of the exam. Lung bases: Again noted a large size hiatal hernia with organoaxial rotation and with interval increased wall thickening and small/trace bilateral pleural fluid. Left lung base compressive mild atelectasis/infiltrates. Bilateral bronchial wall thickening/mild dilatation. Cardiomegaly. ABDOMEN: Liver: Mild diffuse steatosis. No mass. Gallbladder and bile ducts: A moderately distended gallbladder. No calcified stones. No ductal dilation. Pancreas: Unremarkable. No discernible mass. No ductal dilation. Spleen: Mild splenomegaly, 14 cm in craniocaudal length. Adrenals: Unremarkable. No mass. Kidneys and ureters: A small 8.5 mm right renal cortical cyst.. No solid mass. No hydronephrosis. Stomach and bowel: A large size hiatal hernia, entire stomach is above the diaphragm. Normal caliber small bowel. Extensive pancolonic diverticulosis coli. There is wall thickening of the distal descending colon and proximal sigmoid with pericolonic mild reactive fat stranding in the lower abdomen/upper pelvis, concerning for chronic diverticulitis, although cannot exclude superimposed mild acute diverticulitis. There is liquid stool in the cecum/ascending colon. Large amount of formed stool is seen in a 7.5 cm distended rectosigmoid (series 1100, image 57, series 11 image 290). No obstruction. No mucosal thickening. Right hepatodiaphragmatic interposition of the colon. PELVIS: Appendix: No findings to suggest acute appendicitis. Bladder: There is a reduced capacity urinary bladder with up to 10 mm mucosal/right wall thickening, concerning for cystitis (series 11 image 283). No mass. Reproductive: A normal size prostate with small rounded coarse calcifications. ABDOMEN and PELVIS: Intraperitoneal space: Unremarkable. No free air. No significant fluid collection. Bones/joints: No acute fracture. No dislocation. Moderate rotatory lumbar levoscoliosis. Multilevel advanced degenerative spondylosis. Soft tissues: Bilaterally hip regions/flanks likely intramuscular lipomas are present Vasculature: Unremarkable. No abdominal aortic aneurysm. Lymph nodes: No lymphadenopathy by CT size criteria.. IMPRESSION: Again noted a large size hiatal hernia with rotation and with interval increased gastric wall thickening and bilateral small/trace pleural fluid, suspect acute gastritis in the appropriate clinical context. Extensive pancolonic diverticulosis coli. Wall thickening of the distal descending colon and proximal sigmoid associated with pericolonic mild reactive fat stranding in the left side lower abdomen/upper pelvis, concerning for chronic diverticulitis, although cannot exclude superimposed mild acute diverticulitis. A reduced capacity urinary bladder with up to 10 mm right wall thickening, concerning for cystitis. Clinical correlation advised. Moderate rotatory lumbar levoscoliosis. Advanced multilevel degenerative spondylosis. . Electronically signed by: Juan Francisco Bautista MD, DABR 01/31/24 00:55 AM Chest CTA 01/30/24 22:17 Exam(s): CTA CHEST IV Amt: 116 ml optiray 320 EXAM: CT Angiography Chest With Intravenous Contrast CLINICAL HISTORY: Reason for exam: PE. TECHNIQUE: Axial computed tomographic angiography images of the chest with intravenous contrast. CTDI is 20.91 mGy and DLP is 1040.98 mGy-cm. Automated exposure control was utilized for the study. A dose lowering technique was utilized adhering to the principles of ALARA. MIP reconstructed images were created and reviewed. COMPARISON: CT chest: 08/21/2023 FINDINGS: Diagnostic sensitivity is reduced by motion artifact. Pulmonary arteries: No pulmonary embolism. A 34 mm enlarged right central pulmonary artery. Aorta: No acute findings. Diffuse calcified atherosclerosis. No thoracic aortic aneurysm. Lungs: Central airways are patent. Diffuse bilateral bronchial wall thickening/mild/moderate tubular bronchiectasis and bronchiolectasis. Moderate centrilobular emphysema. Left lower lobe consolidation/basal segment collapse associated with corresponding/surrounding mild interstitial infiltrates. Pleural space: Trace bilateral pleural fluid/effusion.. No pneumothorax. Heart: Cardiomegaly. Anteriorly trace pericardial effusion. No significant pericardial effusion. No evidence of RV dysfunction. Multivessel's calcified coronary arterial atherosclerosis. Bones/joints: No acute fracture. No dislocation. Mild dextroscoliosis and mildly increased kyphosis. Multilevel degenerative spondylosis. Soft tissues: Large size hiatal hernia with organoaxial rotation and interval increased gastric wall thickness. Lymph nodes: Small mediastinal lymph nodes.. No enlarged lymph nodes. Other findings: Significant bilateral gynecomastia. . Concurrently performed CT abdomen/pelvis reported separately. IMPRESSION: No evidence of pulmonary embolism, aortic aneurysm or dissection. Cardiomegaly. Significant multivessel coronary arterial and aortic calcified atherosclerosis. Bilateral bronchial wall thickening, mild bronchiectasis/bronchiolectasis and moderate centrilobular pulmonary emphysema. Left lower lobe consolidation or basal segment collapse. Surrounding mild interstitial infiltrates. Small/trace bilateral pleural effusion. . Electronically signed by: Juan Francisco Bautista MD, DABR 01/31/24 01:[address] 01/30/24 22:17 Exam(s): CT FACIAL With Contrast IV Amt: 116 ml optiray 320 EXAM: CT Maxillofacial With Intravenous Contrast CLINICAL HISTORY: Reason for exam: fever, AMS, recent parotitis. TECHNIQUE: Axial computed tomography images of the face with intravenous contrast. CTDI is 20.71 mGy and DLP is 730.74 mGy-cm. Automated exposure control was utilized for the study. A dose lowering technique was utilized adhering to the principles of ALARA. CONTRAST: Patient received 116 ml optiray 320 of IV contrast COMPARISON: None. FINDINGS: Bones/joints: No acute facial bone fracture. Soft tissues: Approximately 3.0 cm, 0.6 cm and 2.0 cm, 1.8 cm wide calcified stones are seen inside the excretory duct of the right submandibular salivary gland/Sialolithiasis (series 3 image 11, series 901 image 55). Orbits: Unremarkable. Sinuses: Near completely opacified right maxillary sinus with abnormal soft tissue and with an air-fluid level/severe acute on chronic sinusitis.. Other findings: Advanced degenerative spondylitic changes seen at C5-C6 level.. IMPRESSION: Multiple up to 3 cm large calcified stones are seen inside the excretory duct of the right submandibular salivary gland/sialolithiasis. Near completely opacified right maxillary sinus with abnormal soft tissues and with an air-fluid level, consistent with severe acute and chronic sinusitis. . Electronically signed by: Juan Francisco Bautista MD, SUMA 01/31/24 01:37 AM Medications Administered Sodium Chloride (Nss) 500 mls @ 80 mls/hr IV .Q6H15M ANNALISA Stop: 01/31/24 06:44 Last Admin: 01/31/24 00:37 Dose: 80 mls/hr Documented By: NIVIA Norepinephrine Bitartrate (Levophed/D5w) 4 mg in 250 mls @ 23.775 mls/hr IV .[id number] ANNALISA; Protocol Stop: 03/01/24 02:59 Last Titration: 01/31/24 02:50 Dose: 0.1 mcg/kg/min, 23.8 mls/hr Documented By: Admin: 01/31/24 02:09 Dose: 0.05 mcg/kg/min, 11.9 mls/hr Documented By: NIVIA Co-signed By: SHIRLEY Discontinued Medications Sodium Chloride (Nss) 1,000 mls @ 999 mls/hr IV .Q1H1M ANNALISA Stop: 01/31/24 00:15 Last Infusion: 01/31/24 00:37 Dose: Infused Documented By: Admin: 01/30/24 23:32 Dose: 999 mls/hr Documented By: Infusion: 01/30/24 23:31 Dose: Infused Documented By: Admin: 01/30/24 22:30 Dose: 999 mls/hr Documented By: HE Piperacillin Sod/Tazobactam Sod (Zosyn) 4.5 gm in 100 mls @ 200 mls/hr IV NOW ONE; Protocol Stop: 01/30/24 22:41 Last Infusion: 01/30/24 23:26 Dose: Infused Documented By: Admin: 01/30/24 22:41 Dose: 200 mls/hr Documented By: ANTONIETTA Acetaminophen (Ofirmev) 1,000 mg in 100 mls @ 400 mls/hr IV NOW STA Stop: 01/30/24 22:26 Last Infusion: 01/30/24 22:43 Dose: Infused Documented By: Admin: 01/30/24 22:28 Dose: 400 mls/hr Documented By: HE Vancomycin HCl 1,250 mg/ (Dextrose) 525 mls @ 200 mls/hr IV NOW ONE Stop: 01/31/24 00:41 Last Infusion: 01/31/24 02:45 Dose: Infused Documented By: Admin: 01/30/24 23:55 Dose: 200 mls/hr Documented By: NIVIA Sodium Chloride (Nss) 1,000 mls @ 999 mls/hr IV .Q1H1M ONE Stop: 01/30/24 23:26 Last Infusion: 01/30/24 23:32 Dose: Infused Documented By: Admin: 01/30/24 22:28 Dose: 999 mls/hr Documented By: HE Lactated Ringer's (Lr) 500 mls @ 999 mls/hr IV .Q31M ONE Stop: 01/31/24 01:29 Last Infusion: 01/31/24 01:56 Dose: Infused Documented By: Admin: 01/31/24 01:16 Dose: 999 mls/hr Documented By: NIVIA Ioversol (Optiray 320 125ml) 116 ml IV ONCE ONE Stop: 01/30/24 22:57 Last Admin: 01/30/24 22:56 Dose: 116 ml Documented By: PLNelida Norepinephrine Bitartrate (Norepinephrine/D5w 4 Mg/250 Ml) Confirm Administered Dose 4 mg IV .STK-MED ONE Stop: 01/31/24 02:05 Last Admin: 01/31/24 02:41 Dose: 4 mg Documented By: THEAW ECG Additional Comments: Sinus tachycardiawithPremature atrial complexes Moderate voltage criteria for LVH, may be normal variant(R in aVL,Jack product) Prolonged QT Abnormal ECG When compared with ECG [id number] 14:46, Vent. ratehas increasedby 66bpm QRS durationhas decreased T wave inversion no longer evident inAnterolateral leads Coding Level of Care Code 66502 CRITICAL CARE EA ADD 30M Diagnoses Sepsis A41.9 Sepsis acute organ dysfunction status: unspecified Sepsis type: sepsis due to unspecified organism Colitis K52.9 Pneumonia J18.9 Elevated troponin R79.89 CHF (congestive heart failure) I50.9 Heart failure chronicity: unspecified Heart failure type: unspecified Hypertension I10 Hyperlipidemia E78.5 (1) Sepsis Sepsis acute organ dysfunction status: unspecified Sepsis type: sepsis due to unspecified organism Qualified Code(s): A41.9 - Sepsis, unspecified organism (5) CHF (congestive heart failure) Heart failure chronicity: unspecified Heart failure type: unspecified Qualified Code(s): I50.9 - Heart failure, unspecified
[2024-01-31] MEDS ORDERED: CARBOHYDRATES FOR HYPOGLYCEMIA PO PRN (04:15)
[2024-01-31] MEDS ORDERED: MAGNESIUM HYDROXIDE SUSP 30 ML UDC PO PRN (04:15)
[2024-01-31] MEDS ORDERED: VANCOMYCIN HCL 1,000 MG/270 ML BAG IV SCH (04:15)
[2024-01-31] MEDS ORDERED: GLUCAGON FOR INJ 1 MG VIAL SQ PRN (04:15)
[2024-01-31] MEDS ORDERED: GLUCOSE 10 TAB/TUBE PO PRN (04:15)
[2024-01-31] MEDS ORDERED: bisacodyL 10 MG SUPP PR PRN (04:15)
[2024-01-31] MEDS ORDERED: DEXTROSE 50% 50 ML SYRINGE IV PRN (04:15)
[2024-01-31] MEDS ORDERED: GLUCOSE 40% GEL 15 GM TUBE PO PRN (04:15)
[2024-01-31] MEDS ORDERED: VANCOMYCIN CONSULT ACTIVE PRN (04:15)
[2024-01-31 04:40] LABS: Basophils # (auto) 0.04 K/uL (0.00-0.20); Basophils % (auto) 0.2 %; Eosinophils % (auto) 1.2 %; Hematocrit (blood only) 25.7 % (42.0-52.0); Hemoglobin 7.6 g/dl (14.0-18.0); Immature Granulocytes # (auto) 0.23 K/uL (0.01-0.20); Immature Granulocytes % (auto) 1.4 %; Lymphocytes # (auto) 1.74 K/uL (1.20-3.40); Lymphocytes % (auto) 10.7 %; Mean Corpuscular Hemoglobin 23.5 pg (25.0-34.0); Mean Corpuscular Hgb Conc 29.6 g/dL (32.0-36.0); Mean Corpuscular Volume 79.6 fL (80.0-100.0); Mean Platelet Volume 10.3 fL (9.4-12.4); Monocytes # (auto) 2.75 K/uL (0.11-0.59); Monocytes % (auto) 16.9 %; Neutrophils # (auto) 11.27 K/uL (1.40-6.50); Neutrophils % (auto) 69.6 %; Platelet Count 253 K/uL (130-400); RDW Coefficient of Variation 18.4 % (11.5-14.5); RDW Standard Deviation 53.1 fL (36.4-46.3); Red Blood Count 3.23 M/uL (4.70-6.10); White Blood Count 16.23 K/ul (4.8-10.8)
[2024-01-31] MEDS: PIPERACILLIN/TAZOBACTAM 4.5 GM/100 ML BAG IV SCH (04:43)
[2024-01-31] MEDS: LEVOTHYROXINE SODIUM 50 MCG TABLET PO SCH (04:51)
[2024-01-31] MEDS: HYDROCORTISONE SOD SUCCINATE 100 MG/2 ML VIAL IV STA (04:52)
[2024-01-31 04:55] LABS: BUN Creatinine Ratio 20.9 (10-20); Creatinine Clr Calc Pharmacy 68.7 ml/min; Magnesium 1.5 mg/dl (1.7-2.4); Potassium 3.6 mmol/L (3.5-5.1)
[2024-01-31] MEDS: VANCOMYCIN 1,250mg in D5W 250mL (Use w/ NSS Shortage) IV SCH (05:04)
[2024-01-31] MEDS: COUGH DROP (SUGAR FREE) LOZ 24 LOZ/1 BOX BUCCAL STA (05:10)
[2024-01-31 05:48] LABS: Polychromasia 1+; Tear Drop Cells 1+
[2024-01-31] MEDS: MAGNESIUM SULFATE / D5W 1 GM/100 ML BAG IV SCH (06:25)
--- NOTE | 2024-01-31 06:43 | XRay Report ---
XR chest 1V portable CLINICAL HISTORY: Sepsis COMPARISON STUDY: Chest radiograph August 20, 2023. Chest CT August 21, 2023. FINDINGS: There is no pneumothorax. Lung volumes are normal. There are trace bilateral pleural effusi ons. A large hiatal hernia is noted. Left basilar opacity is also present. There is pulmonary vascula r congestion. Mild cardiomegaly is unchanged. IMPRESSION: 1. Cardiomegaly with pulmonary vascular congestion and trace bilateral pleural effusions. 2. Large hiatal hernia. 3. Left basilar opacity which could reflect atelectasis or pneumonia. ACT 112: Negative or not required by law. Electronically signed by: Marcial Quintero M.D. 01/31/2024 6:41 AM
--- NOTE | 2024-01-31 07:13 | Hospitalist Progress Note ---
Date of Service January 31, 2024 Assessment & Plan (1) Sepsis: Plan: 88yo male presenting with septic shock POA. source likely diverticulitis, however also with acute sinusitis and parotiditis Febrile, tachycardic, hypotensive with leukocytosis elevated lactate E levated procalcitonin=0.98. Presenting with left sided abdominal pain - CT as above with some stranding and possible colitis/diverticulitis. CT of the chest suggests LLL PNA as well. CT face suggests parotiditis with stones and opacification of right max sinus, acute on chronic sinusitis. Patient with suggested adrenal insufficiency - random cortisol=6.21 Will administer stress dosed steroids - Hydrocortisone 100mg IV x 1 dose now followed by 50mg IV q 6 hour -Required pressors, Continue Levophed - wean as tolerated -Vancomycin and Zosyn, pending cultures and mrsa swab results -Tylenol PRN (2) Diabetes mellitus, type 2: Plan: Patient on Lantus 12u qAM and ISS. Last NpfR1X=4.2 on 12/31/23 -MICU Hyperglycemia protocol -Close monitoring with IV steroid use Plan Chronic medical conditions: CAD with history of PCI -Continue ASA and Atorvastatin BPH -Continue Terazosin and Finasteride Atrial fibrillation -Patients' sotalol and Carvedilol have been placed on hold due to bradycardia/hypotension -Patient not on anticoagulation due to history of PE Hypothyroidism -Continue Synthroid Hyperlipidemia -Continue Atorvastatin Admission and Anticipated Discharge Date Admission Date: January 31, 2024 Subjective pt was seen with son at bedside and updated still some cough and shorthess of breath still left facial swelling Physical Exam Physical Exam: awake and alert facial swelling on left improved from last hospital stay left basilar rhonchi Results & Data Results & Data Vital Signs (Past 12 Hours) Vital Signs Temp Pulse Pulse Resp BP BP Pulse Ox 01/31/24 06:00 86 22 115/46 L 96 01/31/24 05:03 79 21 109/53 L 97 01/31/24 04:33 01/31/24 04:16 97.3 F L 75 18 94/71 L 94 01/31/24 04:15 01/31/24 04:03 97.3 F L 77 20 94/71 L 98 01/31/24 04:00 01/31/24 03:34 74 20 111/48 L 93 01/31/24 03:30 74 20 122/59 L 93 01/31/24 03:30 111/48 L 01/31/24 03:27 62 13 95 01/31/24 03:25 119/54 L 01/31/24 03:20 120/50 L 01/31/24 03:15 113/51 L 01/31/24 03:15 113/51 L 01/31/24 03:09 79 24 93 01/31/24 03:05 123/51 L 01/31/24 03:05 123/51 L 01/31/24 03:05 123/51 L 01/31/24 03:00 76 22 95 01/31/24 02:57 86 22 90 01/31/24 02:55 116/57 L 01/31/24 02:55 116/57 L 01/31/24 02:55 116/57 L 01/31/24 02:50 112/57 L 01/31/24 02:46 97/51 L 01/31/24 02:42 77 24 98 01/31/24 02:40 100/49 L 01/31/24 02:40 100/49 L 01/31/24 02:35 105/43 L 01/31/24 02:35 105/43 L 01/31/24 02:32 108/51 L 01/31/24 02:30 103/50 L 01/31/24 02:12 78 25 H 91 01/31/24 02:10 90/44 L 01/31/24 02:10 90/44 L 01/31/24 02:00 78 23 01/31/24 01:57 94/42 L 01/31/24 01:45 92/52 L 01/31/24 01:45 92/52 L 01/31/24 01:42 78 20 01/31/24 01:39 77 25 H 01/31/24 01:31 109/45 L 01/31/24 01:31 109/45 L 01/31/24 01:24 82 17 01/31/24 01:20 101/48 L 01/31/24 01:20 101/48 L 01/31/24 01:00 110/48 L 01/31/24 01:00 98.9 F 102 H 16 110/48 L 92 01/31/24 00:57 89 16 01/31/24 00:51 88 18 01/31/24 00:30 89/43 L 01/31/24 00:30 89/43 L 01/31/24 00:30 89 22 01/31/24 00:20 102/43 L 01/31/24 00:20 102/43 L 01/31/24 00:18 87 21 01/31/24 00:06 92 H 26 H 01/30/24 23:42 94 H 20 01/30/24 23:30 103/49 L 01/30/24 23:30 96 H 22 01/30/24 23:27 98.9 F 102 H 21 93/49 L 92 01/30/24 23:15 94 H 21 95 01/30/24 23:14 110/51 L 01/30/24 23:09 91 H 21 92 01/30/24 22:30 102 H 27 H 93/49 L 95 01/30/24 22:24 139 H 22 88/47 L 94 01/30/24 22:19 103.2 F H 106 H 18 90/59 L 94 01/30/24 22:14 104 H 01/30/24 22:09 103.2 F H 106 H 18 90/59 L 94 01/30/24 22:09 106 H 18 94 01/30/24 22:08 103.2 F H 106 H 18 90/59 L 94 Pulse Ox O2 Del Method O2 Del Method 01/31/24 06:00 Room Air 01/31/24 05:03 Room Air 01/31/24 04:33 Room Air 01/31/24 04:16 Room Air 01/31/24 04:15 98 Room Air 01/31/24 04:03 Room Air 01/31/24 04:00 Room Air 01/31/24 03:34 Room Air 01/31/24 03:30 Room Air 01/31/24 03:30 01/31/24 03:27 01/31/24 03:25 01/31/24 03:20 01/31/24 03:15 01/31/24 03:15 01/31/24 03:09 01/31/24 03:05 01/31/24 03:05 01/31/24 03:05 01/31/24 03:00 01/31/24 02:57 01/31/24 02:55 01/31/24 02:55 01/31/24 02:55 01/31/24 02:50 01/31/24 02:46 01/31/24 02:42 01/31/24 02:40 01/31/24 02:40 01/31/24 02:35 01/31/24 02:35 01/31/24 02:32 01/31/24 02:30 01/31/24 02:12 01/31/24 02:10 01/31/24 02:10 01/31/24 02:00 01/31/24 01:57 01/31/24 01:45 01/31/24 01:45 01/31/24 01:42 01/31/24 01:39 01/31/24 01:31 01/31/24 01:31 01/31/24 01:24 01/31/24 01:20 01/31/24 01:20 01/31/24 01:00 01/31/24 01:00 Room Air 01/31/24 00:57 01/31/24 00:51 01/31/24 00:30 01/31/24 00:30 01/31/24 00:30 01/31/24 00:20 01/31/24 00:20 01/31/24 00:18 01/31/24 00:06 01/30/24 23:42 01/30/24 23:30 01/30/24 23:30 01/30/24 23:27 Room Air 01/30/24 23:15 01/30/24 23:14 01/30/24 23:09 01/30/24 22:30 Room Air 01/30/24 22:24 Room Air 01/30/24 22:19 Room Air 01/30/24 22:14 01/30/24 22:09 Room Air 01/30/24 22:09 Room Air 01/30/24 22:08 Room Air Laboratory Results review cbc review prp PG Care Time/CCT Total # of Minutes Spent Total Time Spent with Patient: Total time spent is greater than 50% in coordination of care (as documented) at patient's floor/unit and/or counseling patient: Coding Level of Care Code None Diagnoses Sepsis A41.9 Sepsis acute organ dysfunction status: unspecified Sepsis type: sepsis due to unspecified organism Diabetes mellitus, type 2 E11.9 (1) Sepsis Sepsis acute organ dysfunction status: unspecified Sepsis type: sepsis due to unspecified organism Qualified Code(s): A41.9 - Sepsis, unspecified organism
[2024-01-31] MEDS ORDERED: ICU Protocol for HYPERglycemia SCH (07:30)
--- NOTE | 2024-01-31 07:42 | Pharmacy Report ---
Pharmacy PK ABX Note - Date of Service January 31, 2024 - Assessment and Plan Assessment 88 year old M receiving vancomycin and zosyn empirically. Provider notes possible sinusitis and CT suggestive of possible colitis/diverticulitis LLL pna. Pertinent microbiologic data includes: Positive MRSA Nasal Swab, blood cultures pending. Will obtain a level tomorrow morning in case duration of therapy is extended past 48 hours. Day # 2 of antimicrobial therapy. Plan Vancomycin * Loading dose: 1250 mg IV x 1 (administered last evening) * Maintenance dose: 1250 mg IV every 24 hours * Regimen is predicted to achieve target AUC/BREE of 400-600 mg/L.hr * Random level ordered for: 02/01/24 Pharmacy will continue to follow and will adjust dose/frequency as necessary. Thank you. Pharmacy has transitioned to AUC monitoring for vancomycin. AUC/BREE is the pr eferred PK/PD target and is associated with decreased risk of nephrotoxicity compared to traditional trough targets.
[2024-01-31] MEDS: PANTOprazole 40 MG TAB PO SCH (08:09)
[2024-01-31] MEDS: POTASSIUM CHLORIDE PWD 20 MEQ PACK PO ONE (08:09)
[2024-01-31] MEDS: FINASTERIDE 5 MG TAB PO SCH (08:09)
[2024-01-31] MEDS: ENOXAPARIN INJ 40 MG/0.4 ML SYR SQ SCH (08:10)
[2024-01-31] MEDS: ASPIRIN 81 MG ECTAB PO SCH (08:11)
[2024-01-31] MEDS: HYDROCORTISONE SOD 50 MG in SYRINGE 0 ML IV SCH (09:22)
[2024-01-31] MEDS: LANTUS PER UNIT CHARGE SQ SCH ×2 (09:24→20:37)
--- NOTE | 2024-01-31 12:07 | Surgery Consultation ---
<Statement entered by Joshua Devi, - 02/01/24 08:47> I have seen this patient with the surgical PA. He may follow up with Dr. Lyon in the office if no acute complications to his hiatal hernia, he is not currently acute. Otherwise, he will require transfer to a tertiary care center. Surgery will sign off at this time. Date of Consultation January 31, 2024 Assessment & Plan (1) Hiatal hernia: Patient presented to the [facility] ER 01/30/24 with c/o fever, chills and abd discomfort. Work up in the ER showed concerns for septic shock with tachypnea, fever, tachycardic, and hypotension, found to have LLL pneumonia. On exam patient is in no acute distress sitting up in bed eating lunch (clear liquids). VSS , WBC 16, He currently denies abdominal pain, nausea, vomiting. Abdomen is soft non distended , non tender to palpation. Per Critical care note there was concern for intermittent gastric torsion causing his abdominal pain and septic shock, this would be hard to discern given his pneumonia, parotitis, and diverticulitis. Recommending patient continue current plan of care with IV Zosyn and vancomycin. If abdominal pain returns and there is concern continued gastric torsion and he wishes to proceed with surgical intervention he will need to be transferred to a tertiary care center. Patient discussed with on-call surgeon Dr. Devi. (2) Diverticulitis: History of Present Illness Reason for Consultation: paraesophageal hernia Attending Physician: Lukasz Summers MD History of Present Illness Patient a 88 yo male with PMH of HLD, Chronic renal disease stage 3, Diabetes type 2 , ND (hx stent placement) , HTN, afib, CHF, Diverticulitis, parotitis, that presented to the [facility] ER 01/30/24 with c/o fever, chills and abd discomfort. It was noted he had a recent admission on 01/23/24 and was being treated for parotiditis with stones. A work in the ER showed concerns for septic shock with tachypnea, fever, tachycardic, and hypotension, found to have LLL pneumonia. He was admitted to the ICU. General surgery was consulted for a large hiatal hernia see on CT scan. CT reading as : large size hiatal hernia with rotation and with interval increased gastric wall thickening and bilateral small/trace pleural fluid, suspect acute gastritis in the appropriate clinical context. He states he has known about a hiatal hernia for years. Looking back into chart past CT scan dated 07/23 noted large hiatal hernia. The patient reports he has been able to tolerate a regular diet and does not have trouble swallowing, however a swallow study dated 08/23 reports patients does not have any issues with oral or pharyngeal phases of the swallow but he has absolutely no clearance of items from his esophagus and swallowed items were observed re- entering the pharyngeal cavity and being aspirated. they recommended NPO and GI consult and at that time the patient and family did not want any invasive procedures or feeding tubes. Allergies Allergy/AdvReac Type Severity Reaction Status Date / Time atenolol Allergy Unknown Patient Verified 08/20/23 22:28 told "never to take again" candesartan [From Atacand] AdvReac Intermediate Hyperkalemi Verified 08/20/23 22:28 a lisinopril AdvReac Intermediate Increased Verified 08/20/23 22:28 creatinine, hypotension Home Medications Medication Instructions Recorded Confirmed Type albuterol sulfate 90 mcg/actuation 2 inh inhalation Q4H PRN Shortness 06/04/18 01/30/24 History breath activated powder inhaler Of Breath Or Wheezing aspirin 81 mg tablet,delayed 81 mg PO QAM 06/04/18 01/30/24 History release atorvastatin 80 mg tablet 80 mg PO HS 06/04/18 01/30/24 History nitroglycerin 0.4 mg sublingual 0.4 mg sublingual DIRECTED PRN 06/13/22 01/30/24 History tablet Chest Pain sotalol 80 mg tablet 40 mg PO . BID ON HOLD 06/13/22 01/30/24 History terazosin 2 mg capsule 2 mg PO HS 06/13/22 01/30/24 History finasteride 5 mg tablet 5 mg PO QAM 05/28/23 01/30/24 History furosemide 40 mg tablet (Lasix) 40 mg PO Q OTHER DAY 05/28/23 01/31/24 History furosemide 40 mg tablet 60 mg PO Q OTHER DAY 08/20/23 01/31/24 History insulin glargine 100 unit/mL 12 unit subcut QAM 12/24/23 01/30/24 History subcutaneous solution (Lantus U-100 Insulin) insulin lispro 100 unit/mL See Rx Instructions .Route .COMPLEX 12/24/23 01/30/24 History subcutaneous solution (Humalog U-100 Insulin) levothyroxine 50 mcg tablet 50 mcg PO DAILY 12/24/23 01/30/24 History magnesium hydroxide 400 mg/5 mL 30 ml PO DAILY PRN Constipation 12/24/23 01/30/24 History oral suspension (Milk of Magnesia) potassium chloride 20 mEq 20 meq PO QAM 12/24/23 01/30/24 History tablet,extended release(part/cryst) pantoprazole 40 mg tablet,delayed 40 mg PO BID #60 tabs 12/27/23 01/30/24 Rx release Saccharomyces boulardii 250 mg 250 mg PO QAM 01/23/24 01/30/24 History capsule (Florastor) bisacodyl 10 mg rectal suppository 10 mg MI DAILY PRN Constipation 01/23/24 01/30/24 History (Dulcolax (bisacodyl)) menthol 0.44 %-zinc oxide 20.6 % 1 applic topical .EVERY SHIFT 01/23/24 01/30/24 History topical ointment (Calmoseptine) sodium phosphates 19 gram-7 118 ml MI DAILY PRN Constipation 01/23/24 01/30/24 History gram/118 mL enema (Fleet Enema) tramadol 50 mg tablet 50 mg PO Q6H PRN PAIN 8-10 01/23/24 01/30/24 History cefdinir 300 mg capsule 300 mg PO BID 5 days #10 caps 01/26/24 01/30/24 Rx empagliflozin 25 mg tablet 12.5 mg PO QAM 01/30/24 01/30/24 History (Jardiance) multivit,Ca,min-iron 8 mg-folic 1 tab PO QAM 01/30/24 01/30/24 History acid 200 mcg-lycopene 600 mcg tablet (Centrum Men) polyethylene glycol 3350 17 4 g PO QAM 01/30/24 01/30/24 History gram/dose oral powder (Miralax) saliva substitute combo no.9 2 ea PO .Q 1 HOUR PRN Dry Mouth 01/30/24 01/30/24 History (Biotene Dry Mouth Oral Rinse mouthwash) Patient History Medical History Penile ulcer Balanitis Hernia, hiatal Chronic diastolic heart failure Iron deficiency anemia Lower GI bleed CAD (coronary artery disease) 2012- MARY to [facility]AD BPH (benign prostatic hyperplasia) MGUS (monoclonal gammopathy of unknown significance) Following with [facility] heme/onc- last seen 05/28/23, recommendation to monitor/follow-up on annual basis Non-ST elevation (NSTEMI) myocardial infarction Osteoarthritis Lactic acidosis Acute blood loss anemia Abdominal pain Acute GI bleeding GI bleed Surgical History History of heart artery stent 2012 > stent x1 History of cardiac cath 2012 > stent x1 Family History Mother Coronary heart disease, Onset Age: 63 of ND CHF (congestive heart failure) Myocardial infarction Father CHF (congestive heart failure) Pneumonia Sister Coronary heart disease History of CABG Rheumatic heart disease Social History Smoking Status: Never smoker Second Hand Exposure: No; Do You Dip or Chew Tobacco: No; Hx Alcohol Use: No Hx Substance Use: No Preferred Language: Malaysian Communication Ability: Effective Communication Ability Comment: physically unable to write Loans Consultant Required: No Beliefs That Will Affect Care: None marital status: / Current Living Situation: [facility] Current Living Situation Comment: at [facility] since July for rehab. Plan to return home alone Feels Safe at Home: Yes Assistive Devices: Denture - Upper, Denture - Lower and Wheelchair Review of Systems Gastrointestinal: no abdominal pain, no nausea, no vomiting and no dysphagia Physical Exam Constitutional: cooperative and comfortable; no acute distress Respiratory: normal respiratory effort; no respiratory distress Cardiovascular: Rate/Rhythm: regular rate Gastrointestinal (Abdomen): Inspection/Auscultation: abdomen not distended Percussion/Palpation: abdomen soft; abdomen nontender Results & Data Vital Signs (Past 12 Hours) Vital Signs Temp Pulse Pulse Resp BP BP Pulse Ox 01/31/24 09:33 76 17 96 01/31/24 09:03 81 20 95 01/31/24 09:00 122/63 01/31/24 08:48 89 22 100 01/31/24 08:42 85 25 H 88 L 01/31/24 08:15 97.5 F L 01/31/24 08:03 69 17 93 01/31/24 08:00 101/39 L 01/31/24 08:00 101/39 L 01/31/24 07:51 74 17 93 01/31/24 07:30 85 18 90 01/31/24 07:00 124/48 L 01/31/24 07:00 124/48 L 01/31/24 07:00 89 22 82 L 01/31/24 06:00 86 22 115/46 L 96 01/31/24 05:03 79 21 109/53 L 97 01/31/24 04:33 01/31/24 04:16 97.3 F L 75 18 94/71 L 94 01/31/24 04:15 01/31/24 04:03 97.3 F L 77 20 94/71 L 98 01/31/24 04:00 01/31/24 03:34 74 20 111/48 L 93 01/31/24 03:30 74 20 122/59 L 93 01/31/24 03:30 111/48 L 01/31/24 03:27 62 13 95 01/31/24 03:25 119/54 L 01/31/24 03:20 120/50 L 01/31/24 03:15 113/51 L 01/31/24 03:15 113/51 L 01/31/24 03:09 79 24 93 01/31/24 03:05 123/51 L 01/31/24 03:05 123/51 L 01/31/24 03:05 123/51 L 01/31/24 03:00 76 22 95 01/31/24 02:57 86 22 90 01/31/24 02:55 116/57 L 01/31/24 02:55 116/57 L 01/31/24 02:55 116/57 L 01/31/24 02:50 112/57 L 01/31/24 02:46 97/51 L 01/31/24 02:42 77 24 98 01/31/24 02:40 100/49 L 01/31/24 02:40 100/49 L 01/31/24 02:35 105/43 L 01/31/24 02:35 105/43 L 01/31/24 02:32 108/51 L 01/31/24 02:30 103/50 L 01/31/24 02:12 78 25 H 91 01/31/24 02:10 90/44 L 01/31/24 02:10 90/44 L 01/31/24 02:00 78 23 01/31/24 01:57 94/42 L 01/31/24 01:45 92/52 L 01/31/24 01:45 92/52 L 01/31/24 01:42 78 20 01/31/24 01:39 77 25 H 01/31/24 01:31 109/45 L 01/31/24 01:31 109/45 L 01/31/24 01:24 82 17 01/31/24 01:20 101/48 L 01/31/24 01:20 101/48 L 01/31/24 01:00 110/48 L 01/31/24 01:00 98.9 F 102 H 16 110/48 L 92 01/31/24 00:57 89 16 01/31/24 00:51 88 18 01/31/24 00:30 89/43 L 01/31/24 00:30 89/43 L 01/31/24 00:30 89 22 01/31/24 00:20 102/43 L 01/31/24 00:20 102/43 L 01/31/24 00:18 87 21 01/31/24 00:06 92 H 26 H Pulse Ox O2 Del Method O2 Del Method 01/31/24 09:33 Room Air 01/31/24 09:03 01/31/24 09:00 01/31/24 08:48 01/31/24 08:42 01/31/24 08:15 01/31/24 08:03 01/31/24 08:00 01/31/24 08:00 01/31/24 07:51 01/31/24 07:30 01/31/24 07:00 01/31/24 07:00 01/31/24 07:00 01/31/24 06:00 Room Air 01/31/24 05:03 Room Air 01/31/24 04:33 Room Air 01/31/24 04:16 Room Air 01/31/24 04:15 98 Room Air 01/31/24 04:03 Room Air 01/31/24 04:00 Room Air 01/31/24 03:34 Room Air 01/31/24 03:30 Room Air 01/31/24 03:30 01/31/24 03:27 01/31/24 03:25 01/31/24 03:20 01/31/24 03:15 01/31/24 03:15 01/31/24 03:09 01/31/24 03:05 01/31/24 03:05 01/31/24 03:05 01/31/24 03:00 01/31/24 02:57 01/31/24 02:55 01/31/24 02:55 01/31/24 02:55 01/31/24 02:50 01/31/24 02:46 01/31/24 02:42 01/31/24 02:40 01/31/24 02:40 01/31/24 02:35 01/31/24 02:35 01/31/24 02:32 01/31/24 02:30 01/31/24 02:12 01/31/24 02:10 01/31/24 02:10 01/31/24 02:00 01/31/24 01:57 01/31/24 01:45 01/31/24 01:45 01/31/24 01:42 01/31/24 01:39 01/31/24 01:31 01/31/24 01:31 01/31/24 01:24 01/31/24 01:20 01/31/24 01:20 01/31/24 01:00 01/31/24 01:00 Room Air 01/31/24 00:57 01/31/24 00:51 01/31/24 00:30 01/31/24 00:30 01/31/24 00:30 01/31/24 00:20 01/31/24 00:20 01/31/24 00:18 01/31/24 00:06 [phone] Report Patient: RADHA DICKSON Admit Date: 01/30/24 MR#: [id number] Address1: [address] [place] [address] Acct ID:[id number] Address2: [facility] Date: 1935 [facility] Zip: [place] [id number] Age: 88 Location: ED Sex: M Room/Bed: Att Phy: Diagnosis: CARDIAC ASSESMENT Ria Phy: Osmar Anderson III, MD Service Date: 01/30/24 [facility] Phy: Interpreting Phy: Kandi Bautista MDAdmit Phy: Ordering Phy: Sonali Luis PA-C cc: ~ Exam(s): CT ABDOMEN + PELVIS With Contrast IV Amt: 116 cc optiray 320 EXAM: CT Abdomen and Pelvis With Intravenous Contrast CLINICAL HISTORY: Reason for exam: sepsis, lower abd pain. TECHNIQUE: Axial computed tomography images of the abdomen and pelvis with intravenous contrast. CTDI is 6.9 mGy and DLP is 143.45 mGy-cm. Automated exposure control was utilized for the study. A dose lowering technique was utilized adhering to the principles of ALARA. CONTRAST: Patient received 116 cc optiray 320 of IV contrast COMPARISON: CT abdomen/pelvis: 12/23/2023 FINDINGS: Motion-induced image degradation limits diagnostic sensitivity of the exam. Lung bases: Again noted a large size hiatal hernia with organoaxial rotation and with interval increased wall thickening and small/trace bilateral pleural fluid. Left lung base compressive mild atelectasis/infiltrates. Bilateral bronchial wall thickening/mild dilatation. Cardiomegaly. ABDOMEN: Liver: Mild diffuse steatosis. No mass. Gallbladder and bile ducts: A moderately distended gallbladder. No calcified stones. No ductal dilation. Pancreas: Unremarkable. No discernible mass. No ductal dilation. Spleen: Mild splenomegaly, 14 cm in craniocaudal length. Adrenals: Unremarkable. No mass. Kidneys and ureters: A small 8.5 mm right renal cortical cyst.. No solid mass. No hydronephrosis. Stomach and bowel: A large size hiatal hernia, entire stomach is above the diaphragm. Normal caliber small bowel. Extensive pancolonic diverticulosis coli. There is wall thickening of the distal descending colon and proximal sigmoid with pericolonic mild reactive fat stranding in the lower abdomen/upper pelvis, concerning for chronic diverticulitis, although cannot exclude superimposed mild acute diverticulitis. There is liquid stool in the cecum/ascending colon. Large amount of formed stool is seen in a 7.5 cm distended rectosigmoid (series 1100, image 57, series 11 image 290). No obstruction. No mucosal thickening. Right hepatodiaphragmatic interposition of the colon. PELVIS: Appendix: No findings to suggest acute appendicitis. Bladder: There is a reduced capacity urinary bladder with up to 10 mm mucosal/right wall thickening, concerning for cystitis (series 11 image 283). No mass. Reproductive: A normal size prostate with small rounded coarse calcifications. ABDOMEN and PELVIS: Intraperitoneal space: Unremarkable. No free air. No significant fluid collection. Bones/joints: No acute fracture. No dislocation. Moderate rotatory lumbar levoscoliosis. Multilevel advanced degenerative spondylosis. Soft tissues: Bilaterally hip regions/flanks likely intramuscular lipomas are present Vasculature: Unremarkable. No abdominal aortic aneurysm. Lymph nodes: No lymphadenopathy by CT size criteria.. IMPRESSION: Again noted a large size hiatal hernia with rotation and with interval increased gastric wall thickening and bilateral small/trace pleural fluid, suspect acute gastritis in the appropriate clinical context. Extensive pancolonic diverticulosis coli. Wall thickening of the distal descending colon and proximal sigmoid associated with pericolonic mild reactive fat stranding in the left side lower abdomen/upper pelvis, concerning for chronic diverticulitis, although cannot exclude superimposed mild acute diverticulitis. A reduced capacity urinary bladder with up to 10 mm right wall thickening, concerning for cystitis. Clinical correlation advised. Moderate rotatory lumbar levoscoliosis. Advanced multilevel degenerative spondylosis. . Electronically signed by: Juan Francisco Bautista MD, LEONIDESR 01/31/24 00:55 AM Dictated: 01/31/2454 Transcribed: 01/31/2454 PG Care Time/CCT Total # of Minutes Spent Total Time Spent with Patient: Total time spent is greater than 50% in coordination of care (as documented) at patient's floor/unit and/or counseling patient: Coding Level of Care Code 60197 INT INP/OBS CARE 2/55MIN Diagnoses Hiatal hernia K44.9 Diverticulitis K57.92
[2024-01-31] MEDS: INSULIN ASPART PER UNIT CHARGE SC SCH (12:11)
--- NOTE | 2024-01-31 14:49 | Electrocardiogram Report ---
Test Reason : Blood Pressure : */* mmHG Vent. Rate : 113 BPM Atrial Rate : 113 BPM P-R Int : 176 ms QRS Dur : 96 ms QT Int : 380 ms P-R-T Axes : * -20 85 degrees QTcB Int : 521 ms Sinus tachycardia with Premature atrial complexes Moderate voltage criteria for LVH, may be normal variant Prolonged QT Abnormal ECG When compared with ECG of 25-Jan-2024 14:46, Vent. rate has increased by 66 bpm QRS duration has decreased T wave inversion no longer evident in Anterolateral leads Confirmed by Tree Quiñonez ([id number]) on 01/31/2024 2:49:03 PM Referred By: REFERRED SELF Confirmed By: Tree Quiñonez
[2024-01-31] MEDS ORDERED: SODIUM CHLORIDE 0.65% NA SOLN 45 ML (OCEAN) PRN (19:14)
[2024-01-31] MEDS: ATORVASTATIN 40 MG TAB PO SCH (20:25)
[2024-01-31] MEDS ORDERED: TERAZOSIN HCL 1 MG CAP PO SCH (21:00)
[2024-02-01 04:31] LABS: Basophils # (auto) 0.01 K/uL (0.00-0.20); Basophils % (auto) 0.1 %; Hematocrit (blood only) 23.3 % (42.0-52.0); Immature Granulocytes # (auto) 0.09 K/uL (0.01-0.20); Immature Granulocytes % (auto) 0.8 %; Lymphocytes # (auto) 0.77 K/uL (1.20-3.40); Lymphocytes % (auto) 7.1 %; Mean Corpuscular Hemoglobin 23.4 pg (25.0-34.0); Mean Corpuscular Volume 77.9 fL (80.0-100.0); Mean Platelet Volume 10.1 fL (9.4-12.4); Monocytes # (auto) 0.48 K/uL (0.11-0.59); Monocytes % (auto) 4.4 %; Neutrophils # (auto) 9.57 K/uL (1.40-6.50); Neutrophils % (auto) 87.6 %; Platelet Count 205 K/uL (130-400); RDW Coefficient of Variation 18.3 % (11.5-14.5); RDW Standard Deviation 51.8 fL (36.4-46.3); Red Blood Count 2.99 M/uL (4.70-6.10); White Blood Count 10.92 K/ul (4.8-10.8)
[2024-02-01 04:51] LABS: Calcium 7.5 mg/dl (8.6-10.3); Creatinine Clr Calc Pharmacy 70.8 ml/min; Magnesium 2.4 mg/dl (1.7-2.4); Phosphorus 2.7 mg/dl (2.5-4.9); Potassium 3.5 mmol/L (3.5-5.1)
[2024-02-01 05:08] LABS: Echinocytes 1+; Hypochromasia Present; Tear Drop Cells 1+
[2024-02-01] MEDS: POTASSIUM CHLORIDE / WTR 20 MEQ/100 ML PLCT IV ONE (08:00)
--- NOTE | 2024-02-01 08:03 | Critical Care Progress Note ---
Date of Service February 01, 2024 Assessment & Plan (1) Sepsis: (2) Colitis: (3) Pneumonia: (4) Elevated troponin: (5) CHF (congestive heart failure): (6) Hypertension: (7) Hyperlipidemia: Plan Impression:: 88 YOM presents with abdominal pain, fever, chills met SIRS criteria with sources being lung and nonspecific colitis. He required vasopressor agents following adequate fluid resuscitaiton. Found to be relatively adrenal insufficient- will admit to ICU for vasopressor support, stress dose steroids, and broad spectrum antibiotics. 24-hour events: Patient remained in the ICU. Vasopressors were weaned to off. He is tolerating a diet. Surgical consultation was obtained. Recommendations: Neuro - Metabolic Encephalopathy, resolved. Continue to follow-up currently. Maintain sleep-wake cycle, and get out of bed to chair as tolerated. Cardiac -septic shock resolved with antibiotics and treatment for relative adrenal insufficiency. Currently hemodynamically stable. See comments regarding hydrocortisone below. History of atrial fibrillation but also GI bleed so holding anticoagulation for now. Adequately rate controlled. Given his hypertension, can start low-dose beta-rm. Respiratory - LLL pneumonia versus compressive atelectasis, small pleural effusion. Continue antibiotics and incentive spirometry pulmonary toilet. GI -large paraesophageal hernia with possibility of torsion. Should have outpatient surgical evaluation at either [facility] or [facility] for potential foregut surgery if he elects to pursue aggressive interventions. Not available here. If the patient were to have persistent abdominal pain or recurrent sepsis, transferred for higher level of care would be appropriate RENAL/LYTES -oral replacement of potassium and calcium. Mild hyponatremia today. Continue to follow. -An catheter in place. ENDO - diabetes: Holding Jardiance. Continue Lantus and sliding scale. Initiate weaning of hydrocortisone over the next 5 days. HEME: No current issues ID -multiple possible etiologies but given the presentation with abdominal pain and rapid improvement, consideration for transient gastric ischemia is high on the differential. Appreciate general surgery consultation. Continue Zosyn for 7-day course. LINES/IV ACCESS - PIV DVT PROPHYLAXIS - SCDs, Lovenox 40mg subq daily DISPO: Critical care issues have resolved. Hemodynamically stable. Okay to transfer to the floor. Critical care services will sign off Admission and Anticipated Discharge Date Admission Date: January 31, 2024 Subjective Patient seen and examined. EMR reviewed. Discussed with bedside critical care nurse as well as on multidisciplinary rounds. The patient is awake alert and sitting up in bed. He is tolerating liquid diet. He is not having millimeters abdominal pain. No shortness of breath. He is been off vasopressor agents. He is on room air. No cough or sputum production. He denies nausea or vomiting. No hematochezia or hematemesis. Review of Systems Review of Systems: All systems reviewed & are unremarkable except as noted in Subjective Physical Exam Constitutional: WD/WN, vitals as above Neck: trachea midline, no thyromegaly Respiratory: normal respiratory effort, lungs clear to auscultation Cardiovascular: RRR, no murmur, no edema Gastrointestinal (Abdomen): normal bowel sounds, soft, nontender, no hepatosplenomegaly Musculoskeletal: Extremities: extremities normal to inspection Skin: no rashes, warm and dry Neurologic: Nonfocal exam Lymphatic: no cervical lymphadenopathy Results & Data Results & Data Vital Signs (Past 12 Hours) Vital Signs Temp Pulse Resp BP Pulse Ox Pulse Ox O2 Del Method 02/01/24 06:25 36.7 C 02/01/24 06:06 78 19 99 02/01/24 06:00 125/47 L 02/01/24 05:36 79 16 98 02/01/24 05:03 69 17 99 02/01/24 05:00 121/54 L 02/01/24 04:54 63 16 97 02/01/24 04:30 68 20 97 02/01/24 04:15 98 Room Air 02/01/24 04:01 117/66 02/01/24 04:00 68 20 98 02/01/24 03:33 66 18 99 02/01/24 03:30 129/60 02/01/24 03:30 129/60 02/01/24 03:18 70 18 98 02/01/24 03:06 60 16 96 02/01/24 03:00 122/57 L 02/01/24 02:54 59 L 16 98 02/01/24 02:30 58 L 16 99 02/01/24 02:30 115/53 L 02/01/24 02:24 36.7 C 02/01/24 02:03 58 L 18 97 02/01/24 02:00 116/54 L 02/01/24 01:57 66 20 98 02/01/24 01:06 63 17 90 02/01/24 01:00 118/58 L 02/01/24 00:48 73 22 95 02/01/24 00:30 117/62 02/01/24 00:24 68 19 94 02/01/24 00:00 65 02/01/24 00:00 121/58 L 01/31/24 23:54 60 18 98 01/31/24 23:40 36.6 C 01/31/24 23:33 65 21 99 01/31/24 23:30 122/56 L 01/31/24 23:27 70 17 98 01/31/24 23:00 117/57 L 01/31/24 23:00 63 18 99 01/31/24 23:00 117/57 L 01/31/24 22:33 66 22 94 01/31/24 22:30 123/71 01/31/24 22:30 123/71 01/31/24 22:27 76 22 99 01/31/24 22:00 69 19 98 01/31/24 21:33 77 20 97 01/31/24 21:30 126/56 L 01/31/24 21:30 126/56 L 01/31/24 21:24 74 20 95 01/31/24 21:03 68 19 95 01/31/24 21:00 121/63 01/31/24 20:54 70 19 97 01/31/24 20:18 67 18 97 Critical Care Results & Data Vital Signs (Past 12 Hours) Vital Signs Temp Pulse Resp BP Pulse Ox Pulse Ox O2 Del Method 02/01/24 06:25 36.7 C 02/01/24 06:06 78 19 99 02/01/24 06:00 125/47 L 02/01/24 05:36 79 16 98 02/01/24 05:03 69 17 99 02/01/24 05:00 121/54 L 02/01/24 04:54 63 16 97 02/01/24 04:30 68 20 97 02/01/24 04:15 98 Room Air 02/01/24 04:01 117/66 02/01/24 04:00 68 20 98 02/01/24 03:33 66 18 99 02/01/24 03:30 129/60 02/01/24 03:30 129/60 02/01/24 03:18 70 18 98 02/01/24 03:06 60 16 96 02/01/24 03:00 122/57 L 02/01/24 02:54 59 L 16 98 02/01/24 02:30 58 L 16 99 02/01/24 02:30 115/53 L 02/01/24 02:24 36.7 C 02/01/24 02:03 58 L 18 97 02/01/24 02:00 116/54 L 02/01/24 01:57 66 20 98 02/01/24 01:06 63 17 90 02/01/24 01:00 118/58 L 02/01/24 00:48 73 22 95 02/01/24 00:30 117/62 02/01/24 00:24 68 19 94 02/01/24 00:00 65 02/01/24 00:00 121/58 L 01/31/24 23:54 60 18 98 01/31/24 23:40 36.6 C 01/31/24 23:33 65 21 99 01/31/24 23:30 122/56 L 01/31/24 23:27 70 17 98 01/31/24 23:00 117/57 L 01/31/24 23:00 63 18 99 01/31/24 23:00 117/57 L 01/31/24 22:33 66 22 94 01/31/24 22:30 123/71 01/31/24 22:30 123/71 01/31/24 22:27 76 22 99 01/31/24 22:00 69 19 98 01/31/24 21:33 77 20 97 01/31/24 21:30 126/56 L 01/31/24 21:30 126/56 L 01/31/24 21:24 74 20 95 01/31/24 21:03 68 19 95 01/31/24 21:00 121/63 01/31/24 20:54 70 19 97 01/31/24 20:18 67 18 97 Lab & Micro Results (Past 24 Hours) RBC 2.99 M/uL (4.70-6.10) L 02/01/24 WBC 10.92 K/ul (4.8-10.8) H 02/01/24 Hgb 7.0 g/dl (14.0-18.0) L 02/01/24 Hct 23.3 % (42.0-52.0) L 02/01/24 MCV 77.9 fL (80.0-100.0) L 02/01/24 MCH 23.4 pg (25.0-34.0) L 02/01/24 MCHC 30.0 g/dL (32.0-36.0) L 02/01/24 RDW Standard Deviation 51.8 fL (36.4-46.3) H 02/01/24 RDW Coefficient of Variation 18.3 % (11.5-14.5) H 02/01/24 Plt Count 205 K/uL (130-400) 02/01/24 MPV 10.1 fL (9.4-12.4) 02/01/24 Neutrophils (%) (Auto) 87.6 % 02/01/24 Lymphocytes (%) (Auto) 7.1 % 02/01/24 Monocytes # (Auto) 0.48 K/uL (0.11-0.59) 02/01/24 Eosinophils # (Auto) 0.00 K/uL (0.00-0.50) 02/01/24 Immature Granulocyte % (Auto) 0.8 % 02/01/24 Neutrophils # (Auto) 9.57 K/uL (1.40-6.50) H 02/01/24 Lymphocytes # (Auto) 0.77 K/uL (1.20-3.40) L 02/01/24 Monocytes # (Auto) 0.48 K/uL (0.11-0.59) 02/01/24 Eosinophils # (Auto) 0.00 K/uL (0.00-0.50) 02/01/24 Basophils # (Auto) 0.01 K/uL (0.00-0.20) 02/01/24 Immature Granulocyte # (Auto) 0.09 K/uL (0.01-0.20) 4 Hypochromasia Present 02/01/24 Echinocytes 1+ 02/01/24 Tear Drop Cells 1+ 02/01/24 Na 132 mmol/L (136-145) L 02/01/24 K 3.5 mmol/L (3.5-5.1) 02/01/24 Cl 103 mmol/L (98-107) 02/01/24 CO2 21 mmol/L (21-32) 02/01/24 Anion Gap 8 (3-11) 02/01/24 BUN 13 mg/dl (6-23) 02/01/24 Creatinine 0.65 mg/dl (0.6-1.4) 02/01/24 BUN/Creatinine Ratio 20.0 (10-20) 02/01/24 Glu 139 mg/dl (70-99(Fasting)) H 02/01/24 Ca 7.5 mg/dl (8.6-10.3) L 02/01/24 Phosphorus Level 2.7 mg/dl (2.5-4.9) 02/01/24 Mg 2.4 mg/dl (1.7-2.4) 02/01/24 04:13 Calcium Level 7.5 mg/dl (8.6-10.3) L 02/01/24 04:13 Microbiology 01/30/24 23:05 Aerobic Blood Culture - Preliminary Blood No growth in Aerobic bottle after 24 hours. Anaerobic Blood Culture - Preliminary No growth in Anaerobic bottle after 24 hours. 01/30/24 22:25 Aerobic Blood Culture - Preliminary Blood No growth in Aerobic bottle after 24 hours. Anaerobic Blood Culture - Preliminary No growth in Anaerobic bottle after 24 hours. I & O Totals 24 Hours 01/31/24 02/01/24 02/02/24 06:59 06:59 06:59 Intake Total 5476.299 / 5476.299 1439.117 / 1439.117 Output Total 1601 / 1601 Balance 5475.299 / 5475.299 -161.883 / -161.883 Cumulative 01/30/24 21:56 thru 02/01/24 06:00 Intake Total 6915.416 Output Total 1602 Balance 5313.416 RT Ventilator Mngmt (Last Documented) Ventilator Ordered Settings Respiratory Rate 19 02/01/24 06:06 Ventilator - PT Measurements Respiratory Rate 19 Coding Level of Care Code 82040 SUB INP/OBS CARE 3/50MIN Diagnoses Sepsis A41.9 Sepsis acute organ dysfunction status: unspecified Sepsis type: sepsis due to unspecified organism Colitis K52.9 Pneumonia J18.9 Elevated troponin R79.89 CHF (congestive heart failure) I50.9 Heart failure chronicity: unspecified Heart failure type: unspecified Hypertension I10 Hyperlipidemia E78.5 (1) Sepsis Sepsis acute organ dysfunction status: unspecified Sepsis type: sepsis due to unspecified organism Qualified Code(s): A41.9 - Sepsis, unspecified organism (5) CHF (congestive heart failure) Heart failure chronicity: unspecified Heart failure type: unspecified Qualified Code(s): I50.9 - Heart failure, unspecified
[2024-02-01] MEDS: PANTOprazole 40 MG TAB PO SCH (08:19)
[2024-02-01] MEDS: CALCIUM CARBONATE 1,250 MG/5 ML UDC PO SCH (08:59)
[2024-02-01] MEDS: METOPROLOL TARTRATE 25 MG TAB PO SCH (09:55)
[2024-02-01] MEDS: POTASSIUM CHLORIDE 20 MEQ/15 ML UDC PO SCH (09:55)
[2024-02-01] MEDS: HYDROCORTISONE SOD 50 MG in SYRINGE 0 ML IV SCH (09:57)
[2024-02-01] MEDS: AMPICILLIN/SULBACTAM SOD 3,000 MG/100 ML BAG IV SCH (11:33)
--- NOTE | 2024-02-01 17:26 | Hospitalist Progress Note ---
Date of Service February 01, 2024 Assessment & Plan (1) Sepsis: Plan: 88 years old male with PMH of DNR/DNI @ [facility] ([place]), paroxysmal AFIB on sotalol and carvedilol, but no A/C given past history of acute blood loss anemia due to acute GI bleed, stratton-sensitive Klebsiella pneumoniae-associated bacteremia (as noted on 08/21/2023, 12:02pm; 08/21/2023, 12:07pm; 08/22/2023, 10:13am; 08/23/2023, 6:14pm blood cultures; 08/25/2023, 9:39am and 9:41am blood cultures negative), and recent diagnosis of acute left parotitis/maxillary sinusitis (as noted on 01/30/2024, 10:17pm CT face with IV contrast), and which did not improve with outpatient therapy utilizing augmentin x 5 days, who was admitted to [facility] ICU on 01/31/2024 with a diagnosis of severe sepsis / septic shock, most likely due to [id number] diverticulitis without perforation, and requiring pressor support with norepinephrine infusion on 01/31/2024, along with empiric vancomycin 1.25g IV x 3 doses (01/30/2024, 10:12pm; 01/31/2024, 5:00am; 02/01/2024, 6:00am, and zosyn 4.5g IV q8 x 5 doses (day #1 on 01/31/2024, 4:30am; day #3 on 02/01/2024, 4:00am). Patient has defervesced from Tmax 39.6 degrees Celsius (01/30/2024, 10:08pm, 10:09pm, 10:19pm) and acute leukocytosis has RESOLVED with admission WBC 15.94 (01/30/2024, 10:25pm) increasing to 16.23 (01/31/2024, 4:24am) before returning to normal at 10.92 (02/01/2024, 4:13am). cf., procalcitonin 0.98 ng/L (01/30/2024, 10:25pm) cf., procalcitonin (02/01/2024, 5:53pm). cf., lactate 3.4 mmol/L (01/30/2024, 10:25pm). cf., lactate 1.3 mmol/L (01/31/2024, 1:15am). cf., MRSA+ nares swab (01/31/2024, 4:30am). cf., random cortisol 6.21 ug/dL(01/31/2024, 12:22am) suggested concomitant acute adrenal insufficiency, for which patient was pulsed with hydrocortisone 100mg IV x 1 dose (01/31/2024, 4:15am), followed by hydrocortisone 50mg IV q12 (01/31, 9:00am). Patient was subsequently transitioned from vancomycin and zosyn to ampicillin 3g IV q6 (day #1 on 02/01/2024, 12:00pm) as per Critical Care / Pulm Dr. Uche Delacruz; check blood cultures #1 and #2 (01/30/2024, 10:25pm; 01/30/2024, 11:05pm) for any evidence of hematogenous dissemination (e.g., bacteremia). (2) Diabetes mellitus, type 2: Plan: Long-term glycemic control remains unknown in this patient with HbA1c 6.2% (12/31/2023) and concomitant, chronic normocytic/microcytic, hypochromic anemia with a progressive decline in his baseline Hb range, Hb 13.4 g/dL (09/04/2018, 4:16am) to 8.4 g/dL (01/30/2024, 10:25pm). The reason that long-term glycemic control remains unknown in patients with concomitant anemia is because increased RBC turnover in anemic states leads to concomitant reductions in both Hb and HbA1c levels. Hence, attention turns towards serum glucose levels instead. cf., glucose 228 mg/dL, anion gap 9, CO2 27 (01/30/2024, 10:25pm). cf., glucose 83 mg/dL, anion gap 5, CO2 26 (01/31/2024, 4:24am). cf., glucose 139 mg/dL, anion gap 8, CO2 21 (02/01/2024, 4:13am). Continue carbohydrate consistent diet, lantus 10 units SQ qam, aspart insulin sliding scale qac + qhs, and POC glucose qac + qhs as patient's low grade hyperglycemia may be due in part to severe sepsis / septic shock and/or hydrocortisone 100mg IV x 1 dose (01/31/2024, 4:15am), followed by hydrocortisone 50mg IV q12 (02/01/2024, 9:00am). Plan Chronic medical conditions: 1. CAD with history of PCI -Continue secondary prophylaxis against CAD utilizing ASA 81mg PO daily and atorvastatin 80mg PO qhs. 2. BPH -Continue finasteride 5mg PO qam and terazosin 2mg PO qhs. 3. Paroxysmal atrial fibrillation -Continue to hold OFF patient's home-scheduled sotalol and carvedilol given the potential for either/both medications to exacerbate bradycardia/hypotension -Despite CHADS2-VASC score = 5 points (e.g., 2 points for age > 74 years, 1 point for DM, 1 point for PAD), patient does not receive oral anticoagulation given his past history of acute blood loss anemia due to acute GI bleed 4. Hypothyroidism -Continue synthroid 50ug PO daily with patient appearing euthyroid with normal screening TSH 2.46 uIU/mL (11/19/2023, 5:55am). 5. Code status, DNR/DNI @ [facility] ([place], [place]). Condition of patient remains fair. I don't expect seismic change(s) in patient's medical condition(s), just small ones strong enough to get this patient back to [facility] ([place], [place]) in the next 2-3 days. To this end, patient has been weaned off norepinephrine infusion and awaits transfer to Med-Surg floor bed later on 02/01/2024 am. Patient will also follow up with his PCP Dr. Osmar Anderson III ([facility] [place]) within 3-5 days of hospital discharge. Of final note, I spoke with the patient at the bedside in [facility] ICU bed #102, today, 02/01/2024, and the patient concurs with the assessment and plan as described above. Admission and Anticipated Discharge Date Admission Date: January 31, 2024 Subjective Patient seen and examined while shaving his jaw with an electric shaver in his right hand and holding a mirror in his left hand. Patient reports that he feels well and has no complaints at all on 02/01/2024. Patient reports that he looks forward to moving out of the intensive care unit setting and to the general medicalsurgical floor on 02/01/2024, especially as patient no longer requires norepinephrine pressor support on 02/01/2024. Review of Systems Review of Systems: Negative for antecedent or coincident fevers, chills, sweats, cough, wheeze, sore throat, hemoptysis, chest pains, palpitations, pleurisy, nausea, vomiting, diarrhea, abdominal pain, pelvic pain, flank pain, back pain, shoulder pain, hematemesis, hematochezia, melena, hematuria, dysuria, frequency, urgency, headaches, dizziness, lightheadedness, visual changes, hearing changes, weakness, falls, sick contacts, trauma, travel history, or food/drug ingestions novel or new. All other review systems are reported as negative by the patient on 02/01/2024. Physical Exam Physical Exam: General: comfortable, coherent, cooperative. Wide awake and alert. Not confused, lethargic, or obtunded. Patient speaks in complete, fluent, and articulate sentences without pause, interruption, cough, or wheeze. HEENT: NC/AT. EOMI. PERRL. No nystagmus, gaze paresis, anisocoria, miosis, chemosis, mydriasis, hyphema, scleral injection, conjunctivitis, or pterygium. No otorrhea or rhinorrhea. No pharyngeal discharge or erythema. Neck: Supple, no stridor, bruit, goiter, JVD, or HJR. Chest: Symmetric rise and fall with respirations. Lungs: CTA/P. No audible expiratory wheeze, egophony, pectoriloquy, increase in tactile fremitus, or flatness/dullness to percussion at the bases. Heart: RRR, S1 and S2 noted. No S3 or S4 summation gallop. Grade II/ early systolic murmur @ LLSB, without radiation to the carotids, axilla, or back, and which remains invariant in regards to the respiratory cycle. Abdomen: Soft, NT, ND, no organomegaly. Bowel sounds auscultated in all 4 quadrants. Extremities: No clubbing, cyanosis, or edema. 2+ pedal pulses bilaterally. Skin: No decubitus ulcer, exanthem, or enanthem. Neurology: Alert and oriented in regards to person, place, time, or situation. 5/5 motor strength in all 4 extremities, both proximally and distally. Urology: No pettit catheter. No urethral discharge. Results & Data Results & Data Vital Signs (Past 12 Hours) Vital Signs Temp Pulse Pulse Resp BP BP Pulse Ox 02/01/24 15:38 36.4 C L 67 18 153/77 H 99 02/01/24 15:26 71 02/01/24 12:01 153/83 H 02/01/24 12:00 82 20 02/01/24 11:03 77 19 02/01/24 11:01 116/92 02/01/24 10:39 57 L 19 100 02/01/24 10:06 66 20 99 02/01/24 10:00 152/67 H 02/01/24 09:57 60 18 100 02/01/24 09:15 68 22 02/01/24 08:06 85 20 02/01/24 08:00 58 L 02/01/24 08:00 02/01/24 08:00 02/01/24 08:00 02/01/24 07:00 67 17 97 02/01/24 07:00 132/59 L 02/01/24 07:00 132/59 L 02/01/24 06:25 36.7 C 02/01/24 06:06 78 19 99 02/01/24 06:00 125/47 L 02/01/24 05:36 79 16 98 Pulse Ox O2 Del Method O2 Del Method 02/01/24 15:38 Room Air 02/01/24 15:26 02/01/24 12:01 02/01/24 12:00 02/01/24 11:03 02/01/24 11:01 02/01/24 10:39 Room Air 02/01/24 10:06 02/01/24 10:00 02/01/24 09:57 02/01/24 09:15 02/01/24 08:06 02/01/24 08:00 02/01/24 08:00 Room Air 02/01/24 08:00 97 Room Air 02/01/24 08:00 Room Air 02/01/24 07:00 02/01/24 07:00 02/01/24 07:00 02/01/24 06:25 02/01/24 06:06 02/01/24 06:00 02/01/24 05:36 Laboratory Results WBC 10.92, N88 L7 M4, Hb 7.0, MCV 77.9, MCHC 30.0, platelet 205 (02/01/2024, 4:13am). Na 141, BUN 14, creatinine 0.67 (01/31/2024, 4:24am). Na 132, BUN 13, creatinine 0.65 (02/01/2024, 4:13am). Mg 1.5 (01/31/2024, 4:24am). Mg 2.4 (02/01/2024, 4:13am). PO4 2.7 (02/01/2024, 4:13am). Diagnostic Findings CT abd/pelvis with IV contrast (01/30/2024, 10:08pm): Again noted a large size hiatal hernia with rotation and with interval increased gastric wall thickening and bilateral small/trace pleural fluid, suspect acute gastritis in the appropriate clinical context. Extensive pancolonic diverticulosis coli. Wall thickening of the distal descending colon and proximal sigmoid associated with pericolonic mild reactive fat stranding in the left side lower abdomen/upper pelvis, concerning for c hronic diverticulitis, although cannot exclude superimposed mild acute diverticulitis. A reduced capacity urinary bladder with up to 10 mm right wall thickening, concerning for cystitis. Clinical correlation advised. Moderate rotatory lumbar levoscoliosis. Advanced multilevel degenerative spondylosis. CT face with IV contrast (01/30/2024, 10:17pm): Multiple up to 3 cm large calcified stones are seen inside the excretory duct of the right submandibular salivary gland/sialolithiasis. Near completely opacified right maxillary sinus with abnormal soft tissues and with an air-fluid level, consistent with severe acute and chronic sinusitis. cf., physical exam (01/31/2024, 02/01/2024) does not reveal any tenderness/ind uration of the right submandibular gland or right maxillary sinus. Instead, I appreciate non-tender induration of the left submandibular region only, without erythema, edema, warmth, crepitus, fluctuance, discharge (sanguineous, serous, suppurative), or lymphangitic streaking. Hence, I am not certain that the right side of this patient's face is affected, as reported on 01/30/2024, 10:17pm CT face with contrast). CTA chest (01/30/2024, 10:17pm): No evidence of pulmonary embolism, aortic aneurysm or dissection. Cardiomegaly. Significant multivessel coronary arterial and aortic calcified atherosclerosis. Bilateral bronchial wall thickening, mild bronchiectasis/bronchiolectasis and moderate centrilobular pulmonary emphysema. Left lower lobe consolidation or basal segment collapse. Surrounding mild interstitial infiltrates. PG Care Time/CCT Total # of Minutes Spent Total Time Spent with Patient: Total time spent is greater than 50% in coordination of care (as documented) at patient's floor/unit and/or counseling patient: Coding Level of Care Code 31302 SUB INP/OBS CARE 2/35MIN Diagnoses Sepsis A41.9 Sepsis acute organ dysfunction status: unspecified Sepsis type: sepsis due to unspecified organism Diabetes mellitus, type 2 E11.9 (1) Sepsis Sepsis acute organ dysfunction status: unspecified Sepsis type: sepsis due to unspecified organism Qualified Code(s): A41.9 - Sepsis, unspecified organism
[2024-02-02 08:51] LABS: Hemoglobin 7.1 g/dl (14.0-18.0); Immature Granulocytes # (auto) 0.07 K/uL (0.01-0.20); Immature Granulocytes % (auto) 0.9 %; Lymphocytes # (auto) 0.92 K/uL (1.20-3.40); Lymphocytes % (auto) 11.8 %; Mean Corpuscular Hemoglobin 23.2 pg (25.0-34.0); Mean Corpuscular Hgb Conc 29.6 g/dL (32.0-36.0); Mean Corpuscular Volume 78.4 fL (80.0-100.0); Mean Platelet Volume 10.5 fL (9.4-12.4); Monocytes # (auto) 0.76 K/uL (0.11-0.59); Monocytes % (auto) 9.7 %; Neutrophils # (auto) 6.07 K/uL (1.40-6.50); Neutrophils % (auto) 77.6 %; Platelet Count 217 K/uL (130-400); RDW Standard Deviation 51.5 fL (36.4-46.3); Red Blood Count 3.06 M/uL (4.70-6.10); White Blood Count 7.82 K/ul (4.8-10.8)
[2024-02-02 09:05] LABS: Calcium 7.5 mg/dl (8.6-10.3); Potassium 3.9 mmol/L (3.5-5.1)
[2024-02-02 09:10] LABS: BUN Creatinine Ratio 26.4 (10-20); Creatinine Clr Calc Pharmacy 52.2 ml/min
[2024-02-02 09:21] LABS: Ovalocytes 1+; Polychromasia 1+; Tear Drop Cells 1+
--- NOTE | 2024-02-02 15:28 | Hospitalist Progress Note ---
Date of Service February 02, 2024 Assessment & Plan (1) Sepsis: Plan: 88 years old male with PMH of DNR/DNI @ [facility] ([place]), paroxysmal AFIB on sotalol and carvedilol, but no A/C given past history of acute blood loss anemia due to acute GI bleed, stratton-sensitive Klebsiella pneumoniae-associated bacteremia (as noted on 08/21/2023, 12:02pm; 08/21/2023, 12:07pm; 08/22/2023, 10:13am; 08/23/2023, 6:14pm blood cultures; 08/25/2023, 9:39am and 9:41am blood cultures negative), and recent diagnosis of acute left parotitis/maxillary sinusitis (as noted on 01/30/2024, 10:17pm CT face with IV contrast), and which did not improve with outpatient therapy utilizing augmentin x 5 days, who was admitted to [facility] ICU on 01/31/2024 with a diagnosis of severe sepsis / septic shock, most likely due to [id number] diverticulitis without perforation, and requiring pressor support with norepinephrine infusion on 01/31/2024, along with empiric vancomycin 1.25g IV x 3 doses (01/30/2024, 10:12pm; 01/31/2024, 5:00am; 02/01/2024, 6:00am, and zosyn 4.5g IV q8 x 5 doses (day #1 on 01/31/2024, 4:30am; day #3 on 02/01/2024, 4:00am). Patient has defervesced from Tmax 39.6 degrees Celsius (01/30/2024, 10:08pm, 10:09pm, 10:19pm) and acute leukocytosis has RESOLVED with admission WBC 15.94 (01/30/2024, 10:25pm) increasing to 16.23 (01/31/2024, 4:24am) before returning to normal at 10.92 (02/01/2024, 4:13am), and remaining normal at 7.82 (02/02/2024, 8:16am). cf., procalcitonin 0.98 ng/L (01/30/2024, 10:25pm) cf., procalcitonin 0.19 ng/L (02/01/2024, 6:10pm). cf., lactate 3.4 mmol/L (01/30/2024, 10:25pm). cf., lactate 1.3 mmol/L (01/31/2024, 1:15am). cf., MRSA+ nares swab (01/31/2024, 4:30am). cf., random cortisol 6.21 ug/dL(01/31/2024, 12:22am) suggested concomitant acute adrenal insufficiency, for which patient was pulsed with hydrocortisone 100mg IV x 1 dose (01/31/2024, 4:15am), followed by hydrocortisone 50mg IV q12 (02/01/2024, 9:00am). Patient was subsequently transitioned from vancomycin and zosyn to ampicillin 3g IV q6 (day #1 on 02/01/2024, 12:00pm) as per Critical Care / Pulm Dr. Uche Delacruz; check blood cultures #1 and #2 (01/30/2024, 10:25pm; 01/30/2024, 11:05pm) for any evidence of hematogenous dissemination (e.g., bacteremia). (2) Diabetes mellitus, type 2: Plan: Long-term glycemic control remains unknown in this patient with HbA1c 6.2% (12/31/2023) and concomitant, chronic normocytic/microcytic, hypochromic anemia with a progressive decline in his baseline Hb range, Hb 13.4 g/dL (09/04/2018, 4:16am) to 8.4 g/dL (01/30/2024, 10:25pm). The reason that long-term glycemic control remains unknown in patients with concomitant anemia is because increased RBC turnover in anemic states leads to concomitant reductions in both Hb and HbA1c levels. Hence, attention turns towards serum glucose levels instead. cf., glucose 228 mg/dL, anion gap 9, CO2 27 (01/30/2024, 10:25pm). cf., glucose 83 mg/dL, anion gap 5, CO2 26 (01/31/2024, 4:24am). cf., glucose 139 mg/dL, anion gap 8, CO2 21 (02/01/2024, 4:13am). cf., glucose 183 mg/dL, anion gap 5, CO2 22 (02/02/2024, 8:16am). Continue carbohydrate consistent diet, lantus 10 units SQ qam, aspart insulin sliding scale qac + qhs, and POC glucose qac + qhs as patient's low grade hyperglycemia may be due in part to severe sepsis / septic shock and/or hydrocortisone 100mg IV x 1 dose (01/31/2024, 4:15am), followed by hydrocortisone 50mg IV q12 (02/01/2024, 9:00am). Plan Chronic medical conditions: 1. CAD with history of PCI -Continue secondary prophylaxis against CAD utilizing ASA 81mg PO daily and atorvastatin 80mg PO qhs. 2. BPH -Continue finasteride 5mg PO qam and terazosin 2mg PO qhs. 3. Paroxysmal atrial fibrillation -Continue to hold OFF patient's home-scheduled sotalol and carvedilol given the potential for either/both medications to exacerbate bradycardia/hypotension -Despite CHADS2-VASC score = 5 points (e.g., 2 points for age > 74 years, 1 point for DM, 1 point for PAD), patient does not receive oral anticoagulation given his past history of acute blood loss anemia due to acute GI bleed 4. Hypothyroidism -Continue synthroid 50ug PO daily with patient appearing euthyroid with normal screening TSH 2.46 uIU/mL (11/19/2023, 5:55am). 5. Code status, DNR/DNI @ [facility] ([place]). Condition of patient remains fair. I don't expect seismic change(s) in patient's medical condition(s), just small ones strong enough to get this patient back to [facility] ([place]) in the next 2-3 days. To this end, patient has been weaned off norepinephrine infusion and awaits transfer to Med-Surg floor bed later on 02/01/2024 am. Patient will also follow up with his PCP Dr. Osmar Anderson III ([place], [place]) within 3-5 days of hospital discharge. Of final note, I spoke with the patient at the bedside in [facility] Med-Surg bed #253-2, today, 02/02/2024, and the patient concurs with the assessment and plan as described above. Admission and Anticipated Discharge Date Admission Date: January 31, 2024 Subjective Patient seen and examined while shaving his jaw with an electric shaver in his right hand and holding a mirror in his left hand. Patient reports that he feels well and has no complaints at all on 02/01/2024. Patient reports that he looks forward to moving out of the intensive care unit setting and to the general medicalsurgical floor on 02/01/2024, especially as patient no longer requires norepinephrine pressor support on 02/01/2024. Review of Systems Review of Systems: Negative for antecedent or coincident fevers, chills, sweats, cough, wheeze, sore throat, hemoptysis, chest pains, palpitations, pleurisy, nausea, vomiting, diarrhea, abdominal pain, pelvic pain, flank pain, back pain, shoulder pain, hematemesis, hematochezia, melena, hematuria, dysuria, frequency, urgency, headaches, dizziness, lightheadedness, visual changes, hearing changes, weakness, falls, sick contacts, trauma, travel history, or food/drug ingestions novel or new. All other review systems are reported as negative by the patient on 02/02/2024. Physical Exam Physical Exam: General: comfortable, coherent, cooperative. Wide awake and alert. Not confused, lethargic, or obtunded. Patient speaks in complete, fluent, and articulate sentences without pause, interruption, cough, or wheeze. HEENT: NC/AT. EOMI. PERRL. No nystagmus, gaze paresis, anisocoria, miosis, chemosis, mydriasis, hyphema, scleral injection, conjunctivitis, or pterygium. No otorrhea or rhinorrhea. No pharyngeal discharge or erythema. Neck: Supple, no stridor, bruit, goiter, JVD, or HJR. Chest: Symmetric rise and fall with respirations. Lungs: CTA/P. No audible expiratory wheeze, egophony, pectoriloquy, increase in tactile fremitus, or flatness/dullness to percussion at the bases. Heart: RRR, S1 and S2 noted. No S3 or S4 summation gallop. Grade II/ early systolic murmur @ LLSB, without radiation to the carotids, axilla, or back, and which remains invariant in regards to the respiratory cycle. Abdomen: Soft, NT, ND, no organomegaly. Bowel sounds auscultated in all 4 quadrants. Extremities: No clubbing, cyanosis, or edema. 2+ pedal pulses bilaterally. Skin: No decubitus ulcer, exanthem, or enanthem. Neurology: Alert and oriented in regards to person, place, time, or situation. 5/5 motor strength in all 4 extremities, both proximally and distally. Urology: No pettit catheter. No urethral discharge. Results & Data Results & Data Vital Signs (Past 12 Hours) Vital Signs Temp Pulse Pulse Resp BP BP Pulse Ox 02/02/24 12:59 89 02/02/24 11:15 36.4 C 69 18 155/80 H 100 02/02/24 07:40 36.8 C 74 17 141/69 H 99 02/02/24 07:18 02/02/24 05:36 83 02/02/24 03:51 36.5 C 73 20 149/73 H 98 O2 Del Method 02/02/24 12:59 02/02/24 11:15 Room Air 02/02/24 07:40 Room Air 02/02/24 07:18 Room Air 02/02/24 05:36 02/02/24 03:51 Room Air Laboratory Results WBC 10.92, N88 L 7 M 4, Hb 7.0, MCV 77.9, MCHC 30.0, platelet 205 (02/01/2024, 4:13am). WBC 7.82, N78 L12 M10, Hb 7.1, MCV 78.4, MCHC 29.6, platelet 217 (02/02/2024, 8:16am). Na 141, BUN 14, creatinine 0.67 (01/31/2024, 4:24am). Na 132, BUN 13, creatinine 0.65 (02/01/2024, 4:13am). Na 136, BUN 24, creatinine 0.91 (02/02/2024, 8:16am). Mg 1.5 (01/31/2024, 4:24am). Mg 2.4 (02/01/2024, 4:13am). PO4 2.7 (02/01/2024, 4:13am). Diagnostic Findings CT abd/pelvis with IV contrast (01/30/2024, 10:08pm): Again noted a large size hiatal hernia with rotation and with interval increased gastric wall thickening and bilateral small/trace pleural fluid, suspect acute gastritis in the appropriate clinical context. Extensive pancolonic diverticulosis coli. Wall thickening of the distal descending colon and proximal sigmoid associated with pericolonic mild reactive fat stranding in the left side lower abdomen/upper pelvis, concerning for c hronic diverticulitis, although cannot exclude superimposed mild acute diverticulitis. A reduced capacity urinary bladder with up to 10 mm right wall thickening, concerning for cystitis. Clinical correlation advised. Moderate rotatory lumbar levoscoliosis. Advanced multilevel degenerative spondylosis. CT face with IV contrast (01/30/2024, 10:17pm): Multiple up to 3 cm large calcified stones are seen inside the excretory duct of the right submandibular salivary gland/sialolithiasis. Near completely opacified right maxillary sinus with abnormal soft tissues and with an air-fluid level, consistent with severe acute and chronic sinusitis. cf., physical exam (01/31/2024, 02/01/2024) does not reveal any tenderness/induration of the right submandibular gland or right maxillary sinus. Instead, I appreciate non-tender induration of the left submandibular region only, without erythema, edema, warmth, crepitus, fluctuance, discharge (s anguineous, serous, suppurative), or lymphangitic streaking. Hence, I am not certain that the right side of this patient's face is affected, as reported on 01/30/2024, 10:17pm CT face with contrast). CTA chest (01/30/2024, 10:17pm): No evidence of pulmonary embolism, aortic aneurysm or dissection. Cardiomegaly. Significant multivessel coronary arterial and aortic calcified atherosclerosis. Bilateral bronchial wall thickening, mild bronchiectasis/bronchiolectasis and moderate centrilobular pulmonary emphysema. Left lower lobe consolidation or basal segment collapse. Surrounding mild interstitial infiltrates. PG Care Time/CCT Total # of Minutes Spent Total Time Spent with Patient: Total time spent is greater than 50% in coordination of care (as documented) at patient's floor/unit and/or counseling patient: Coding Level of Care Code 47318 SUB INP/OBS CARE 2MIN Diagnoses Sepsis A41.9 Sepsis acute organ dysfunction status: unspecified Sepsis type: sepsis due to unspecified organism Diabetes mellitus, type 2 E11.9 (1) Sepsis Sepsis acute organ dysfunction status: unspecified Sepsis type: sepsis due to unspecified organism Qualified Code(s): A41.9 - Sepsis, unspecified organism
[2024-02-03] MEDS: ALBUTEROL HFA 8 GM INHALER INH PRN (04:51)
[2024-02-03 09:27] LABS: Basophils # (auto) 0.01 K/uL (0.00-0.20); Basophils % (auto) 0.1 %; Eosinophils # (auto) 0.01 K/uL (0.00-0.50); Eosinophils % (auto) 0.1 %; Hematocrit (blood only) 27.5 % (42.0-52.0); Hemoglobin 8.1 g/dl (14.0-18.0); Immature Granulocytes # (auto) 0.08 K/uL (0.01-0.20); Immature Granulocytes % (auto) 0.6 %; Lymphocytes # (auto) 1.51 K/uL (1.20-3.40); Lymphocytes % (auto) 12.2 %; Mean Corpuscular Hemoglobin 23.3 pg (25.0-34.0); Mean Corpuscular Hgb Conc 29.5 g/dL (32.0-36.0); Mean Platelet Volume 10.5 fL (9.4-12.4); Monocytes # (auto) 1.21 K/uL (0.11-0.59); Monocytes % (auto) 9.7 %; Neutrophils % (auto) 77.3 %; Platelet Count 267 K/uL (130-400); RDW Coefficient of Variation 17.9 % (11.5-14.5); Red Blood Count 3.48 M/uL (4.70-6.10); White Blood Count 12.42 K/ul (4.8-10.8)
[2024-02-03] MEDS: LANTUS PER UNIT CHARGE SQ SCH ×2 (09:30→10:04)
[2024-02-03 09:36] LABS: Albumin Globulin Ratio 0.9 (0.9-2); Albumin Level 2.5 gm/dl (3.4-5.0); BUN Creatinine Ratio 34.3 (10-20); Bilirubin,Total 0.3 mg/dl (0.2-1.0); Calcium 7.9 mg/dl (8.6-10.3); Creatinine Clr Calc Pharmacy 70.8 ml/min; Globulin 2.9 gm/dl (2.5-4.0); Potassium 3.9 mmol/L (3.5-5.1); Total Protein 5.4 gm/dl (6.0-8.3)
--- NOTE | 2024-02-03 17:34 | Electrocardiogram Report ---
Test Reason : Blood Pressure : */* mmHG Vent. Rate : 66 BPM Atrial Rate : 66 BPM P-R Int : 180 ms QRS Dur : 98 ms QT Int : 418 ms P-R-T Axes : -27 -10 56 degrees QTcB Int : 438 ms Normal sinus rhythm Normal ECG When compared with ECG of 30-Jan-2024 22:13, Premature atrial complexes are no longer Present Vent. rate has decreased by 47 bpm Confirmed by Chhaya Saba ([place]) on 02/03/2024 5:33:47 PM Referred By: REFERRED SELF Confirmed By: Chhaya Saba
--- NOTE | 2024-02-03 19:55 | Hospitalist Progress Note ---
Date of Service February 03, 2024 Assessment & Plan (1) Sepsis: Plan: 88 years old male with PMH of DNR/DNI @ [facility] ([place]), paroxysmal AFIB on sotalol and carvedilol, but no A/C given past history of acute blood loss anemia due to acute GI bleed, stratton-sensitive Klebsiella pneumoniae-associated bacteremia (as noted on 08/21/2023, 12:02pm; 08/21/2023, 12:07pm; 08/22/2023, 10:13am; 08/23/2023, 6:14pm blood cultures; 08/25/2023, 9:39am and 9:41am blood cultures negative), and recent diagnosis of acute left parotitis/maxillary sinusitis (as noted on 01/30/2024, 10:17pm CT face with IV contrast), and which did not improve with outpatient therapy utilizing augmentin x 5 days, who was admitted to [facility] ICU on 01/31/2024 with a diagnosis of severe sepsis / septic shock, most likely due to [id number] diverticulitis without perforation, and requiring pressor support with norepinephrine infusion on 01/31/2024, along with empiric vancomycin 1.25g IV x 3 doses (01/30/2024, 10:12pm; 01/31/2024, 5:00am; 02/01/2024, 6:00am, and zosyn 4.5g IV q8 x 5 doses (day #1 on 01/31/2024, 4:30am; day #3 on 02/01/2024, 4:00am). Patient has defervesced from Tmax 39.6 degrees Celsius (01/30/2024, 10:08pm, 10:09pm, 10:19pm) and acute leukocytosis has RESOLVED with admission WBC 15.94 (01/30/2024, 10:25pm) increasing to 16.23 (01/31/2024, 4:24am) before returning to normal at 10.92 (02/01/2024, 4:13am), and remaining normal at 7.82 (02/02/2024, 8:16am). Subsequently, patient's WBC has increased to WBC 12.42, N77 L12 M10 (02/03/2024, 9:05am) with patient remaining afebrile on 02/03/2024. Etiology of recurrent leukocytosis remains unclear. cf., procalcitonin 0.98 ng/L (01/30/2024, 10:25pm) cf., procalcitonin 0.19 ng/L (02/01/2024, 6:10pm). cf., procalcitonin (02/03/2024, 7:45pm). cf., lactate 3.4 mmol/L (01/30/2024, 10:25pm). cf., lactate 1.3 mmol/L (01/31/2024, 1:15am). cf., MRSA+ nares swab (01/31/2024, 4:30am). cf., random cortisol 6.21 ug/dL(01/31/2024, 12:22am) suggested concomitant acute adrenal insufficiency, for which patient was pulsed with hydrocortisone 100mg IV x 1 dose (01/31/2024, 4:15am), followed by hydrocortisone 50mg IV q12 (02/01/2024, 9:00am). Patient was subsequently transitioned from vancomycin and zosyn to ampicillin 3g IV q6 (day #1 on 02/01/2024, 12:00pm) as per Critical Care / Pulm Dr. Uche Delacruz; check blood cultures #1 and #2 (01/30/2024, 10:25pm; 01/30/2024, 11:05pm) for any evidence of hematogenous dissemination (e.g., bacteremia). cf., Blood culture #1 (01/30/2024, 10:25pm): cf., Blood culture #2 (01/30/2024, 11:05pm): (2) Diabetes mellitus, type 2: Plan: Long-term glycemic control remains unknown in this patient with HbA1c 6.2% (12/31/2023) and concomitant, chronic normocytic/microcytic, hypochromic anemia with a progressive decline in his baseline Hb range, Hb 13.4 g/dL (09/04/2018, 4:16am) to 8.4 g/dL (01/30/2024, 10:25pm). The reason that long-term glycemic control remains unknown in patients with concomitant anemia is because increased RBC turnover in anemic states leads to concomitant reductions in both Hb and HbA1c levels. Hence, attention turns towards serum glucose levels instead. cf., glucose 228 mg/dL, anion gap 9, CO2 27 (01/30/2024, 10:25pm). cf., glucose 83 mg/dL, anion gap 5, CO2 26 (01/31/2024, 4:24am). cf., glucose 139 mg/dL, anion gap 8, CO2 21 (02/01/2024, 4:13am). cf., glucose 183 mg/dL, anion gap 5, CO2 22 (02/02/2024, 8:16am). cf., glucose 250 mg/dL, anion gap 6, CO2 23 (02/03/2024, 9:05am). Continue carbohydrate consistent diet, aspart insulin sliding scale qac + qhs, and POC glucose qac + qhs as patient's low grade hyperglycemia may be due in part to severe sepsis / septic shock and/or hydrocortisone 100mg IV x 1 dose (01/31/2024, 4:15am), followed by hydrocortisone 50mg IV q12 (02/01/2024, 9:00am). Subsequently, I increased patient's lantus 10 units SQ qam to lantus 15 units SQ qam on 02/03/2024, 9:30am). Plan Chronic medical conditions: 1. CAD with history of PCI -Continue secondary prophylaxis against CAD utilizing ASA 81mg PO daily and atorvastatin 80mg PO qhs. 2. BPH -Continue finasteride 5mg PO qam and terazosin 2mg PO qhs. 3. Paroxysmal atrial fibrillation -Continue to hold OFF patient's home-scheduled sotalol and carvedilol given the potential for either/both medications to exacerbate bradycardia/hypotension -Despite CHADS2-VASC score = 5 points (e.g., 2 points for age > 74 years, 1 point for DM, 1 point for PAD), patient does not receive oral anticoagulation given his past history of acute blood loss anemia due to acute GI bleed 4. Hypothyroidism -Continue synthroid 50ug PO daily with patient appearing euthyroid with normal screening TSH 2.46 uIU/mL (11/19/2023, 5:55am). 5. Code status, DNR/DNI @ [facility] ([place]). Condition of patient remains fair. I don't expect seismic change(s) in patient's medical condition(s), just small ones strong enough to get this patient back to [facility] ([place]) in the next 2-3 days. To this end, patient has been weaned off norepinephrine infusion and awaits transfer to Med-Surg floor bed later on 02/01/2024 am. Patient will also follow up with his PCP Dr. Osmar Anderson III ([place], [place]) within 3-5 days of hospital discharge. Of final note, I spoke with the patient at the bedside in [facility] [place] Med-Surg bed #253-2, today, 02/02/2024, and the patient concurs with the assessment and plan as described above. Admission and Anticipated Discharge Date Admission Date: January 31, 2024 Subjective "I feel fine. No complaints." Of note, patient was transferred out of intensive care unit setting and to the general medicalsurgical floor on 02/01/2024, especially as patient no longer required norepinephrine pressor support on 02/01/2024. Review of Systems Review of Systems: Negative for antecedent or coincident fevers, chills, sweats, cough, wheeze, sore throat, hemoptysis, chest pains, palpitations, pleurisy, nausea, vomiting, diarrhea, abdominal pain, pelvic pain, flank pain, back pain, shoulder pain, hematemesis, hematochezia, melena, hematuria, dysuria, frequency, urgency, headaches, dizziness, lightheadedness, visual changes, hearing changes, weakness, falls, sick contacts, trauma, travel history, or food/drug ingestions novel or new. All other review systems are reported as negative by the patient on 02/03/2024. Physical Exam Physical Exam: General: comfortable, coherent, cooperative. Wide awake and alert. Not confused, lethargic, or obtunded. Patient speaks in complete, fluent, and articulate sentences without pause, interruption, cough, or wheeze. HEENT: NC/AT. EOMI. PERRL. No nystagmus, gaze paresis, anisocoria, miosis, chemosis, mydriasis, hyphema, scleral injection, conjunctivitis, or pterygium. No otorrhea or rhinorrhea. No pharyngeal discharge or erythema. Neck: Supple, no stridor, bruit, goiter, JVD, or HJR. Chest: Symmetric rise and fall with respirations. Lungs: CTA/P. No audible expiratory wheeze, egophony, pectoriloquy, increase in tactile fremitus, or flatness/dullness to percussion at the bases. Heart: RRR, S1 and S2 noted. No S3 or S4 summation gallop. Grade II/ early systolic murmur @ LLSB, without radiation to the carotids, axilla, or back, and which remains invariant in regards to the respiratory cycle. Abdomen: Soft, NT, ND, no organomegaly. Bowel sounds auscultated in all 4 quadrants. Extremities: No clubbing, cyanosis, or edema. 2+ pedal pulses bilaterally. Skin: No decubitus ulcer, exanthem, or enanthem. Neurology: Alert and oriented in regards to person, place, time, or situation. 5/5 motor strength in all 4 extremities, both proximally and distally. Urology: No pettit catheter. No urethral discharge. Results & Data Results & Data Vital Signs (Past 12 Hours) Vital Signs Temp Pulse Pulse Resp BP BP Pulse Ox 02/03/24 19:45 36.5 C 74 20 173/86 H 97 02/03/24 15:26 36.5 C 68 18 175/87 H 98 02/03/24 15:23 36.7 C 89 20 119/77 94 02/03/24 13:01 96 H 02/03/24 11:08 36.5 C 72 18 181/79 H 93 O2 Del Method 02/03/24 19:45 Room Air 02/03/24 15:26 Room Air 02/03/24 15:23 Room Air 02/03/24 13:01 02/03/24 11:08 Room Air Laboratory Results WBC 10.92, N88 L 7 M 4, Hb 7.0, MCV 77.9, MCHC 30.0, platelet 205 (02/01/2024, 4:13am). WBC 7.82, N78 L12 M10, Hb 7.1, MCV 78.4, MCHC 29.6, platelet 217 (02/02/2024, 8:16am). WBC 12.42, N77 L12 M10, Hb 8.1, MCV 79.0, MCHC 29.5, platelet 267 (02/03/2024, 9:05am). Blood culture #1 (01/30/2024, 10:25pm): Blood culture #2 (01/30/2024, 11:05pm): Na 141, BUN 14, creatinine 0.67 (01/31/2024, 4:24am). Na 132, BUN 13, creatinine 0.65 (02/01/2024, 4:13am). Na 136, BUN 24, creatinine 0.91 (02/02/2024, 8:16am). Na 138, BUN 23, creatinine 0.67 (02/03/2024, 9:05am). Mg 1.5 (01/31/2024, 4:24am). Mg 2.4 (02/01/2024, 4:13am). PO4 2.7 (02/01/2024, 4:13am). Diagnostic Findings CT abd/pelvis with IV contrast (01/30/2024, 10:08pm): Again noted a large size hiatal hernia with rotation and with interval increased gastric wall thickening and bilateral small/trace pleural fluid, suspect acute gastritis in the appropriate clinical context. Extensive pancolonic diverticulosis coli. Wall thickening of the distal descending colon and proximal sigmoid associated with pericolonic mild reactive fat stranding in the left side lower abdomen/upper pelvis, concerning for c hronic diverticulitis, although cannot exclude superimposed mild acute diverticulitis. A reduced capacity urinary bladder with up to 10 mm right wall thickening, concerning for cystitis. Clinical correlation advised. Moderate rotatory lumbar levoscoliosis. Advanced multilevel degenerative spondylosis. CT face with IV contrast (01/30/2024, 10:17pm): Multiple up to 3 cm large calcified stones are seen inside the excretory duct of the right submandibular salivary gland/sialolithiasis. Near completely opacified right maxillary sinus with abnormal soft tissues and with an air-fluid level, consistent with severe acute and chronic sinusitis. cf., physical exam (01/31/2024, 02/01/2024) does not reveal any tenderness/induration of the right submandibular gland or right maxillary sinus. Instead, I appreciate non-tender induration of the left submandibular region only, without erythema, edema, warmth, crepitus, fluctuance, discharge (sanguineous, serous, suppurative), or lymphangitic streaking. Hence, I am not certain that the right side of this patient's face is affected, as reported on 01/30/2024, 10:17pm CT face with contrast). CTA chest (01/30/2024, 10:17pm): No evidence of pulmonary embolism, aortic aneurysm or dissection. Cardiomegaly. Significant multivessel coronary arterial and aortic calcified atherosclerosis. Bilateral bronchial wall thickening, mild bronchiectasis/bronchiolectasis and moderate centrilobular pulmonary emphysema. Left lower lobe consolidation or basal segment collapse. Surrounding mild interstitial infiltrates. PG Care Time/CCT Total # of Minutes Spent Total Time Spent with Patient: Total time spent is greater than 50% in coordination of care (as documented) at patient's floor/unit and/or counseling patient: Coding Level of Care Code 73526 SUB INP/OBS CARE 2/35MIN Diagnoses Sepsis A41.9 Sepsis acute organ dysfunction status: unspecified Sepsis type: sepsis due to unspecified organism Diabetes mellitus, type 2 E11.9 (1) Sepsis Sepsis acute organ dysfunction status: unspecified Sepsis type: sepsis due to unspecified organism Qualified Code(s): A41.9 - Sepsis, unspecified organism
[2024-02-04 06:02] LABS: Basophils # (auto) 0.01 K/uL (0.00-0.20); Basophils % (auto) 0.1 %; Hemoglobin 7.7 g/dl (14.0-18.0); Immature Granulocytes # (auto) 0.07 K/uL (0.01-0.20); Immature Granulocytes % (auto) 0.6 %; Lymphocytes # (auto) 0.85 K/uL (1.20-3.40); Lymphocytes % (auto) 7.4 %; Mean Corpuscular Hemoglobin 23.1 pg (25.0-34.0); Mean Corpuscular Hgb Conc 29.6 g/dL (32.0-36.0); Mean Corpuscular Volume 77.8 fL (80.0-100.0); Mean Platelet Volume 10.8 fL (9.4-12.4); Monocytes # (auto) 0.76 K/uL (0.11-0.59); Monocytes % (auto) 6.6 %; Neutrophils # (auto) 9.84 K/uL (1.40-6.50); Neutrophils % (auto) 85.3 %; Platelet Count 255 K/uL (130-400); RDW Coefficient of Variation 17.9 % (11.5-14.5); RDW Standard Deviation 50.4 fL (36.4-46.3); Red Blood Count 3.34 M/uL (4.70-6.10); White Blood Count 11.53 K/ul (4.8-10.8)
[2024-02-04 06:32] LABS: Poikilocytosis Present; Polychromasia 2+
--- NOTE | 2024-02-04 07:44 | Hospitalist Progress Note ---
Date of Service February 04, 2024 Assessment & Plan (1) Sepsis: Plan: 88yo male presenting with septic shock POA. source likely diverticulitis, however also with acute sinusitis and parotiditis Febrile, tachycardic, hypotensive with leukocytosis elevated lactate stratton-sensitive Klebsiella pneumoniae-associated bacteremia most likely due to acute on chronic diverticulitis Vancomycin and Zosyn-> ampicillin -Required pressors, Continue Levophed - wean as tolerated Patient with suggested adrenal insufficiency - random cortisol=6.21 Will administer stress dosed steroids - Hydrocortisone 100mg IV x 1 dose now followed by 50mg IV q 6 hour (2) Diabetes mellitus, type 2: Plan: Patient on Lantus 12u qAM and ISS. Last EfqA3L=6.2 on 12/31/23 basal bolus insulin (3) (HFpEF) heart failure with preserved ejection fraction: Plan: CAD with history of PCI restart sotolol, one dose of iv lasix if stable renal function, may restart scheduled daily lasix from home med recc continue to hold coreg continue aspirin and atorvastatin troponin elevation *Demand ischemia Plan Chronic medical conditions: BPH -Continue Terazosin and Finasteride Atrial fibrillation -restart sotalol and Carvedilol remains on hold due to bradycardia -Patient not on anticoagulation due to history of acute blood loss anemia Hypothyroidism -Continue Synthroid Hyperlipidemia -Continue Atorvastatin DNR Admission and Anticipated Discharge Date Admission Date: January 31, 2024 Subjective Pt complains of being short of breath, non productive cough, is known to have swallowing issues cxr without significant changes maybe mild pulm edema Physical Exam Physical Exam: awake and alert cardiac is regular lungs diminshed at left base- correlates with hiatial hernia in past mild JVD Results & Data Results & Data Vital Signs (Past 12 Hours) Vital Signs Temp Pulse Pulse Resp BP BP Pulse Ox 02/04/24 07:31 97.3 F L 74 18 184/84 H 94 02/04/24 07:18 49 L 02/04/24 03:58 97.5 F L 67 18 165/70 H 96 02/03/24 23:19 97.5 F L 67 18 186/72 H 95 02/03/24 22:14 73 02/03/24 19:45 97.7 F 74 20 173/86 H 97 O2 Del Method 02/04/24 07:31 Room Air 02/04/24 07:18 02/04/24 03:58 Room Air 02/03/24 23:19 Room Air 02/03/24 22:14 02/03/24 19:45 Room Air Laboratory Results reviewed cbc- remains anemic reviewed chemistry- stable renal function ordered cxr and subsequently iv furosemide PG Care Time/CCT Total # of Minutes Spent Total Time Spent with Patient: Total time spent is greater than 50% in coordination of care (as documented) at patient's floor/unit and/or counseling patient: Coding Level of Care Code 38686 SUB INP/OBS CARE 3/50MIN Diagnoses Sepsis A41.9 Sepsis acute organ dysfunction status: unspecified Sepsis type: sepsis due to unspecified organism Diabetes mellitus, type 2 E11.9 (HFpEF) heart failure with preserved ejection fraction I50.30 (1) Sepsis Sepsis acute organ dysfunction status: unspecified Sepsis type: sepsis due to unspecified organism Qualified Code(s): A41.9 - Sepsis, unspecified organism
[2024-02-04] MEDS: FUROSEMIDE 40 MG/4 ML VIAL IV ONE (12:57)
[2024-02-04] MEDS: SOTALOL HCL 80 MG TAB PO SCH (13:05)
[2024-02-05 07:34] LABS: BUN Creatinine Ratio 34.3 (10-20); Calcium 8.1 mg/dl (8.6-10.3); Creatinine Clr Calc Pharmacy 70.4 ml/min; Magnesium 1.9 mg/dl (1.7-2.4); Potassium 3.2 mmol/L (3.5-5.1)
--- NOTE | 2024-02-05 07:59 | Hospitalist Progress Note ---
Date of Service February 05, 2024 Assessment & Plan (1) Sepsis: Plan: 88yo male presenting with septic shock POA. source likely diverticulitis, however also with acute sinusitis and parotiditis Febrile, tachycardic, hypotensive with leukocytosis elevated lactate stratton-sensitive Klebsiella pneumoniae-associated bacteremia most likely due to acute on chronic diverticulitis Vancomycin and Zosyn-> ampicillin clinically improved will order CRP in the a.m. to see if his inflammation is reducing his body due to treatment of his infections. -Required pressors, Continue Levophed - wean as tolerated Patient with suggested adrenal insufficiency - random cortisol=6.21 Will administer stress dosed steroids - Hydrocortisone 100mg IV x 1 dose now followed by 50mg IV q 6 hour now stepdown to prednisone 28 with planned taper (2) (HFpEF) heart failure with preserved ejection fraction: Plan: CAD with history of PCI uncontrolled blood pressure, restarted sotolol, scheduled lasix, replete potassium, consider adding amlodipine restart sotolol, one dose of iv lasix if stable renal function, may restart scheduled daily lasix from home med recc continue to hold coreg continue aspirin and atorvastatin troponin elevation *Demand ischemia (3) Diabetes mellitus, type 2: Plan: Patient on Lantus 12u qAM and ISS. Last IdqD7X=3.2 on 12/31/23 basal bolus insulin Plan Chronic medical conditions: BPH -Continue Terazosin and Finasteride Atrial fibrillation -restart sotalol and Carvedilol remains on hold due to bradycardia -Patient not on anticoagulation due to history of acute blood loss anemia Hypothyroidism -Continue Synthroid Hyperlipidemia -Continue Atorvastatin DNR Disposition will return to assisted facility once hypertension is stable Admission and Anticipated Discharge Date Admission Date: January 31, 2024 Subjective Pt continues to complain of being short of breath, has improved since initiation of Lasix again non productive cough, is known to have swallowing issues does not feel this is impacting his shortness of breath Poorly controlled hypertension initiating his home antihypertensive medications once again cxr without significant changes maybe mild pulm edema is bothered by a left lower lobe hiatal hernia which take up some good lung territory in his chest cavity Physical Exam Physical Exam: awake and alert cardiac is regular lungs diminshed at left base- correlates with hiatial hernia in past mild JVD Results & Data Results & Data Vital Signs (Past 12 Hours) Vital Signs Temp Pulse Pulse Resp BP Pulse Ox O2 Del Method 02/05/24 07:29 97.7 F 60 16 199/107 H 99 Nasal Cannula 02/05/24 07:04 47 L 02/05/24 02:53 97.4 F L 66 18 179/78 H 97 Nasal Cannula 02/04/24 22:40 97.7 F 68 18 172/71 H 98 Nasal Cannula 02/04/24 22:08 65 O2 Flow Rate 02/05/24 07:29 2 02/05/24 07:04 02/05/24 02:53 2 02/04/24 22:40 2 02/04/24 22:08 Laboratory Results Reviewed chemistry augmented potassiummagnesium reviewed and replete PG Care Time/CCT Total # of Minutes Spent Total Time Spent with Patient: Total time spent is greater than 50% in coordination of care (as documented) at patient's floor/unit and/or counseling patient: Coding Level of Care Code 65510 SUB INP/OBS CARE 3/50MIN Diagnoses Sepsis A41.9 Sepsis acute organ dysfunction status: unspecified Sepsis type: sepsis due to unspecified organism (HFpEF) heart failure with preserved ejection fraction I50.30 Diabetes mellitus, type 2 E11.9 (1) Sepsis Sepsis acute organ dysfunction status: unspecified Sepsis type: sepsis due to unspecified organism Qualified Code(s): A41.9 - Sepsis, unspecified organism
[2024-02-05] MEDS: predniSONE 20 MG TAB PO SCH (08:33)
[2024-02-05] MEDS: hydrALAZINE HCL 20 MG/ML VIAL IV PRN (08:33)
[2024-02-05] MEDS: FUROSEMIDE 40 MG TAB PO SCH (08:33)
[2024-02-05] MEDS: POTASSIUM CHLORIDE CRTAB 20 MEQ TABCR PO SCH (08:33)
--- NOTE | 2024-02-05 10:08 | XRay Report ---
Indication: Dyspnea Comparison studies: Radiograph of the chest dated 01/30/2024 Technique: Single view of the chest Exam: SINGLE VIEW CHEST FINDINGS: The cardiac silhouette is mildly enlarged. The hilar and mediastinal structures appear unremarkable. Calcification of the thoracic aorta. Hazy opacities of the lung bases. Elevation of the left hemidiaphragm. Degenerative changes of the shoulders. The osseous structures appear grossly intact. IMPRESSION: Worsening basilar opacities, most compatible with atelectasis. There may be small pleural effusions as well. Repeat imaging is recommended with 2 views of the chest. Electronically signed by Curtis Hawkins 02-05-2024 10:07 AM
[2024-02-05] MEDS: carvediloL 6.25 MG TAB PO SCH (17:57)
[2024-02-06 06:41] LABS: Hemoglobin 8.2 g/dl (14.0-18.0); Mean Corpuscular Hemoglobin 23.1 pg (25.0-34.0); Mean Corpuscular Hgb Conc 29.3 g/dL (32.0-36.0); Mean Corpuscular Volume 78.9 fL (80.0-100.0); Mean Platelet Volume 10.2 fL (9.4-12.4); Platelet Count 277 K/uL (130-400); RDW Coefficient of Variation 18.4 % (11.5-14.5); RDW Standard Deviation 52.3 fL (36.4-46.3); Red Blood Count 3.55 M/uL (4.70-6.10); White Blood Count 12.22 K/ul (4.8-10.8)
[2024-02-06 06:59] LABS: BUN Creatinine Ratio 38.5 (10-20); C Reactive Protein 1.29 mg/dl (0-0.5); Calcium 8.3 mg/dl (8.6-10.3); Creatinine Clr Calc Pharmacy 76.5 ml/min; Magnesium 1.8 mg/dl (1.7-2.4); Potassium 3.7 mmol/L (3.5-5.1)
[2024-02-06 07:29] VITALS: PULSE 71; RESP 16; TEMP 97.7; O2SAT 100
[2024-02-06] MEDS ORDERED: AMOXICILLIN 875 MG TAB PO SCH (09:00)
[2024-02-06 09:38] VITALS: BP 180/82
--- NOTE | 2024-02-06 16:58 | Discharge Summary ---
Discharge Summary Date of Service February 06, 2024 Principal Dx & Hospital Course #1 = Principal Diagnosis (1) Sepsis: 88yo male presenting with septic shock POA. source likely diverticulitis, however also with acute sinusitis and parotiditis Febrile, tachycardic, hypotensive with leukocytosis elevated lactate stratton-sensitive Klebsiella pneumoniae-associated bacteremia most likely due to acute on chronic diverticulitis Vancomycin and Zosyn-> clinically complete course of augmentin, crp markedly down -Required pressors, weaned off restarted BP meds Patient with suggested adrenal insufficiency - random cortisol=6.21 did administer stress dosed steroids - (2) (HFpEF) heart failure with preserved ejection fraction: CAD with history of PCI uncontrolled blood pressure, restarted sotolol, scheduled lasix, replete potassium, consider adding amlodipine restart sotolol, restarted lasix and coreg used with sotalol for bp control continue aspirin and atorvastatin troponin elevation *Demand ischemia (3) Diabetes mellitus, type 2: resume insulin and jardiance Last EynL7R=6.2 on 12/31/23 Plan Chronic medical conditions: BPH -Continue Terazosin and Finasteride Atrial fibrillation -restart sotalol and Carvedilol -Patient not on anticoagulation due to history of acute blood loss anemia Hypothyroidism -Continue Synthroid Hyperlipidemia -Continue Atorvastatin DNR Disposition [facility] Notes For Next Care Provider follow for signs of steroid deficiency and consider am cortisol once recovers watch for bradycardia with sotalol and coreg, this regimen was Rx as outpt Admission HPI Per Admitting Provider Teodoro Salvador is an 88yo male with history of atrial fibrillation (not on anticoagulation d/t history of GIB), CAD, HTN, HLP, DM presenting from [facility] with generalized weakness and fever. Patient was recently admitted to [facility] from 01/22 - 01/26/24 with facial swelling. He was diagnosed with parotitis and facial cellulitis and was treated with IV antibiotics Zosyn and Daptomycin and discharged to [facility] on Cefdinir to be continued until 01/30. Patient returns today with report of fever, chills and abdominal pain. Upon arrival to the ER patient febrile at 39.6, tachycardic at 106bpm and hypotensive at 88/47. He was administered IV crystalloid x 3.5L + 80mL/hr with no improvement in blood pressure. Patient started on Levophed with improved cognition and hemodynamics. Reports left sided abdominal discomfort and feeling that he needs to have a bowel movement. Otherwise denies chest pain, palpitations, cough, SOB, nausea. Waxing and waning mental status while in the ER - at times alert and able to answer questions and provide some history. Other times patient somnolent and less interactive. ER Course: Tylenol x 1gm NSS x 3L bolus then 80mL/hr x 500mL LR x 500mL bbolus Zosyn 4.5gm Vancomycin 1250mg Levophed Discharge Exam awake and alert, would rather live at the hospital Discharge Plan Discharge Items Patient Disposition: Transfer Detention Fac Reason For Visit: SEPSIS Discharge Diagnosis: sepsis from diverticulitis right maxillary sinuitis uncontrolled hypertension Condition on Discharge: Fair Activity: Resume your previous activity Non-emergency contact: Primary Care Provider Call non-emergency contact if: your symptoms worsen Follow-up/Referrals: Osmar Anderson III, MD [Primary Care Provider] - Diet: Low Sodium (2gm) Addtl Attending Provider Instructions: pt did well on Unasyn will transition to Augmentin blood pressure improved when restarted on his usual medicines treated for thrush, has irritated posterior pharynx, not definite but has been on antibiotics for extended time Pending Studies at Discharge: No Stand-Alone Forms: My [facility] Skilled Items Patient informed of condition?: Yes DNR: Yes Discharge Level of Care: Other Communicable Disease: No Discharge Prognosis: Stable Lines: None Urinary Catheter: No Medications and DC Order Prescriptions: New amoxicillin-pot clavulanate 875-125 mg Tablet 1 tab PO BIDM Qty: 12 0RF nystatin 100,000 unit/mL suspension 300,000 unit buccal 5XD 5 Days Qty: 75 0RF Rx Instructions: administer 1/2 of dose in each side of the mouth carvedilol 6.25 mg Tablet 6.25 mg PO BIDM Qty: 60 0RF Citrucel (sucrose) Powder 1 tbsp PO DAILY Qty: 454 0RF Continued atorvastatin 80 mg Tablet 80 mg PO HS aspirin 81 mg Tablet,Delayed Release (Dr/Ec) 81 mg PO QAM Hold Instructions: Resume on 01/03/24. resume in 1 week albuterol sulfate 90 mcg/actuation Aerosol Powdr Breath Activated 2 inh INHALATION Q4H PRN (Reason: Shortness Of Breath Or Wheezing) Rx Instructions: [id number] sotalol 80 mg tablet 40 mg PO . BID ON HOLD Hold Instructions: Resume on 02/02/24. terazosin 2 mg capsule 2 mg PO HS nitroglycerin 0.4 mg tablet, sublingual 0.4 mg sublingual DIRECTED MDD 3 DOSES/15 MINUTES PRN (Reason: Chest Pain) furosemide [Lasix] 40 mg tablet 40 mg PO Q OTHER DAY Patient Comments: takes 1/2 in am and 1/2 at night Rx Instructions: Alternate with 60 mg QOD. finasteride 5 mg tablet 5 mg PO QAM insulin lispro [Humalog U-100 Insulin] 100 unit/mL solution See Rx Instructions .ROUTE .COMPLEX Rx Instructions: 350-400 = 8 units 401-450 = 12 units 451-500 = 16 units 501-550 = 18 units, recheck in 2 hours 551 - 1000 = 20 units, recheck in 1 hour insulin glargine [Lantus U-100 Insulin] 100 unit/mL Solution 12 unit SUBCUT QAM potassium chloride 20 mEq tablet,ER particles/crystals 20 meq PO QAM magnesium hydroxide [Milk of Magnesia] 400 mg/5 mL Suspension 30 ml PO DAILY PRN (Reason: Constipation) levothyroxine 50 mcg tablet 50 mcg PO DAILY pantoprazole 40 mg tablet,delayed release (DR/EC) 40 mg PO BID Qty: 60 0RF polyethylene glycol 3350 [Miralax] 17 gram/dose powder 4 g PO QAM Jardiance 25 mg Tablet 12.5 mg PO QAM Centrum Men 8 mg iron- 200 mcg-600 mcg Tablet 1 tab PO QAM Biotene Dry Mouth Oral Rinse Mouthwash 2 ea PO .Q 1 HOUR PRN (Reason: Dry Mouth) Rx Instructions: 2 SPRAYS EVERY 1 HOUR NEEDED..SAUD SELF ADMINISTER furosemide 40 mg tablet 60 mg PO Q OTHER DAY tramadol 50 mg tablet 50 mg PO Q6H PRN (Reason: PAIN 8-10) bisacodyl [Dulcolax (bisacodyl)] 10 mg Suppository 10 mg WI DAILY PRN (Reason: Constipation) Fleet Enema 19-7 gram/118 mL Enema 118 ml WI DAILY PRN (Reason: Constipation) Saccharomyces boulardii [Florastor] 250 mg Capsule 250 mg PO QAM menthol-zinc oxide [Calmoseptine] 0.44-20.6 % Ointment 1 applic TOPICAL .EVERY SHIFT Rx Instructions: apply to sacrum every shift Discontinued cefdinir 300 mg capsule 300 mg PO BID 5 Days Qty: 10 0RF Discharge Orders: Discharge Order (Routine); Ordered 02/06/24 Ordered By: Lukasz Summers Admission Data Admit Date/Time: 01/31/24 03:06 Attending Provider: Lukasz Summers Admit Provider: Silvia Acevedo Primary Care Provider: Osmar Anderson III Other Providers: Silvia Acevedo; Uche Delacruz; Germán Rogers; Avinash Wood; Joao Bautista; Michel Lyon; Mike Perdomo; Nika Easton; Dc Bertrand; Vaibhav Bhatt; Joshua Devi; Louis Tovar; Jono Loyola; [place],[facility] Other Interventions: Discharge Summary Assessment (RN) Last Done: 02/06/24 09:30 Hospital Stay Data Consultations 01/31/24 00:44 ED Decision to Admit Stat 01/31/24 04:15 Consult Signals Intelligence Superintendent Routine 01/31/24 10:32 Consult General Surgery Routine Diagnostic Imagining Performed 01/30/24 22:08 CT Abd and Pelvis [CT abd pelvis IV con only] Stat 01/30/24 22:17 CT angio chest PE protocol Stat CT facial bones w con Stat Pending Results Patient Have Any Pending Studies at Discharge: No Discharge Instructions Given to Patient (Per Discharging Provider) pt did well on Unasyn will transition to Augmentin blood pressure improved when restarted on his usual medicines treated for thrush, has irritated posterior pharynx, not definite but has been on antibiotics for extended time Total Time Total Time Spent Total Time Spent (In Minutes): It required greater than 30 minutes to prepare this patient for discharge. Coding Level of Care Code 13230 INP/OBS DISCH >30 MIN Diagnoses Sepsis A41.9 Sepsis acute organ dysfunction status: unspecified Sepsis type: sepsis due to unspecified organism (HFpEF) heart failure with preserved ejection fraction I50.30 Diabetes mellitus, type 2 E11.9
[2024-02-06] MEDS ORDERED: AMOXICILLIN/CLAVULANATE 875 MG TAB PO SCH (17:00)
== END 2024-02-06 11:33 | DRG 871 ==
LOC: ED 22:01 → SUATTDRO 01-31 03:06 → 1E 01-31 03:06 → 2W 02-01 13:09